=== PATIENT | female | born 1950 | race Caucasian/White ===

== ENCOUNTER 2016-11-01 13:26 | Outpatient (RCR) | payer MEDICARE, MEDICAID ==
--- OUTSIDE RECORDS SUMMARY | 2016-10-31 13:31 | XMS REPORT | Continuity of Care Document ---
Author Author [facility] Organization [facility] Address Unknown Phone Unavailable Care Team Providers Care Retail Warehouse Supervisor Name Role Phone RUDOLPH KENT DO PCP Insurance Providers Payer Name Policy Number Subscriber Name [id number] Carson Pal 01 [employer] [id number] Regi Pal 18 Self / Same As Patient [facility] [id number] Regi Pal 18 Self / Same As Patient Advance Directives Directive Response Recorded Date/Time Advance Directives Yes 09/23/14 11:18am Health Care Power of Dock Operations Supervisor Y s.o 09/23/14 11:18am Organ Donor No 09/23/14 11:18am Problems No known problems or medical conditions. Medications Medication Dose Route Sig Days/Qty Instructions Order Date Discontinued Date Status Torsemide 11/30/08 04/07/10 Discontinued [Avinza Er] 11/30/08 04/07/10 Discontinued Sitagliptin Phosphate 11/30/08 04/07/10 Discontinued Oxycodone HCl 11/30/08 02/04/09 Discontinued Pregabalin 11/30/08 04/07/10 Discontinued Trazodone HCl 11/30/08 02/04/09 Discontinued Cyclobenzaprine HCl 10 Mg PO THREE TIMES A DAY PRN PAIN 11/30/08 Active Alprazolam 1 Mg PO EVERY 6 HOURS PRN NEEDED FOR ANIXETY 11/30/08 Discontinued Potassium Chloride 11/30/08 02/04/09 Discontinued Nitrofurantoin Macrocrystals 11/30/08 02/04/09 Discontinued Darifenacin 11/30/08 02/04/09 Discontinued Insulin Aspart 11/30/08 04/07/10 Discontinued [Klor-Con Sr] 02/04/09 04/07/10 Discontinued Trazodone HCl 02/04/09 04/07/10 Discontinued Albuterol/Ipratropium 02/04/09 04/07/10 Discontinued [Estrogen Injection] 02/04/09 08/16/12 Discontinued Furosemide 02/04/09 04/07/10 Discontinued Cyclobenzaprine HCl (Flexeril) 2 Each PO BEDTIME 04/07/10 04/19/12 Discontinued Trazodone Hcl 300 Mg PO BEDTIME 04/07/10 04/19/12 Discontinued Budesonide/Formoterol Fumarate 10.2 Gm IH FOUR TIMES DAILY PRN 04/19/12 Discontinued Atorvastatin Calcium 1 Each PO DAILY 04/07/10 04/19/12 Discontinued Potassium Chloride 10 Meq PO THREE TIMES A DAY 04/07/10 06/13/11 Discontinued Darifenacin 1 Each PO DAILY PRN 04/07/10 04/19/12 Discontinued Oxycodone Hcl/Acetaminophen 1 Each PO 04/07/10 04/19/12 Discontinued Quetiapine Fumarate 50 Mg PO BEDTIME 04/07/10 08/25/13 Discontinued Dicyclomine HCl 10 Mg PO TWICE A DAY 04/07/10 Active Oxycodone Hcl 40 Mg PO THREE TIMES A DAY PRN 04/07/10 04/19/12 Discontinued Topiramate 25 Mg PO THREE TIMES A DAY 04/07/10 04/19/12 Discontinued Diclofenac Sodium/Misoprostol 200 Mcg PO THREE TIMES A DAY 04/07/10 04/19/12 Discontinued Promethazine HCl 1 Tab PO DAILY PRN 04/07/10 06/13/11 Discontinued Magnesium 400 Mg PO DAILY 04/07/10 04/19/12 Discontinued Nitrofurantoin Macrocrystals 100 Mg PO BEDTIME 04/07/10 Active Sitagliptin Phos/Metformin Hcl 1 Each PO TWICE A DAY 04/07/10 Discontinued Scopolamine HCl 1 Ea TD Q3D 3 Qty FOR DIZZINESS 07/25/10 07/27/11 Discontinued Meclizine HCl 1 - 2 Tab PO Q 4-6 HOURS PRN 30 Qty 06/05/10 06/07/11 Discontinued Ondansetron HCl 4 Mg PO EVERY 4HRS 10 Qty FOR NAUSEA AND VOMITING 06/07/11 Discontinued Scopolamine HCl 1 Ea TD Q3D 06/13/11 04/19/12 Discontinued Simvastatin 40 Mg PO 06/13/11 04/19/12 Discontinued Lactulose 3 Tsp PO TWICE A DAY 1 Qty 06/13/11 04/19/12 Discontinued Methylnaltrexone [place] 12 Mg SQ bi weekly 06/13/11 04/19/12 Discontinued Promethazine HCl 1 Tab PO DAILY PRN 1 Qty 06/13/11 04/19/12 Discontinued Ipratropium/Albuterol Sulfate 2 Puff IH FOUR TIMES DAILY 06/13/11 Discontinued Pantoprazole Sodium 40 Mg PO DAILY 06/13/11 04/19/12 Discontinued Sitagliptin Phos/Metformin Hcl 1 Each PO 04/19/12 04/19/12 Discontinued Sitagliptin Phos/Metformin Hcl 1 Each PO TWICE A DAY WITH MEALS 04/1904/19/12 Discontinued Oxycodone Hcl 40 Mg PO THREE TIMES A DAY PRN 04/19/12 Active Oxycodone Hcl/Acetaminophen 10-650 Mg PO EVERY 6 HOURS PRN NEEDED FOR PAIN 04/19/12 09/23/14 Discontinued Sitagliptin Phos/Metformin Hcl 50-1000 Mg PO TWICE A DAY 04/19/12 Discontinued [top] 04/19/12 04/19/12 Discontinued Trazodone Hcl 150 Mg PO BEDTIME 04/19/12 08/31/13 Discontinued Potassium Chloride (Micro K) 10 Meq PO THREE TIMES A DAY 04/19/12 Discontinued Topiramate 50 Mg PO DAILY 04/19/12 08/25/13 Discontinued Atomoxetine Hcl 60 Mg PO EVERY AFTERNOON 04/19/12 09/23/14 Discontinued Metronidazole 1 Each PO THREE TIMES A DAY 04/19/12 07/31/12 Discontinued Clindamycin HCl 1 Each PO GIVE EVERY 6 HR ON SCHEDULE 04/19/1207/31 Discontinued [Estradiol] 08/16/12 08/16/12 Discontinued [Estradiol] 1 Mg PO DAILY 08/16/12 02/23/13 Discontinued Meclizine Hcl 25 Mg PO THREE TIMES A DAY 02/23/13 08/31/13 Discontinued [vitamin b12] IM MONTHLY 02/23/13 08/25/13 Discontinued Torsemide 10 Mg PO DAILY PRN EDEMA NEEDED FOR EDEMA/WEIGHT GAIN Active Metoclopramide HCl 10 Mg PO FOUR TIMES DAILY 02/23/13 Active Oxycodone HCl 1 Tab PO FOUR TIMES DAILY 40 Qty 02/23/13 02/24/13 Discontinued Ipratropium/Albuterol Sulfate 3 Puff IH FOUR TIMES DAILY 02/23/13 Discontinued [Estrogen Shot] INJ MOTNHLY 02/24/13 06/04/14 Discontinued Multivitamin 1 Each PO DAILY 02/26/13 02/26/13 Discontinued Topiramate 50 Mg PO DAILY PRN MIGRAINE 08/25/13 Active Ipratropium/Albuterol Sulfate 3 Puff IH FOUR TIMES DAILY 08/25/13 Active Polyethylene Glycol 17 Gm PO DAILY PRN CONSTIPATION 08/25/13 Discontinued Cyanocobalamin (Vitamin B 12 Injecting) 1,000 Mcg IJ 31ST OF EACH MONTH 08/25/13 03/16/15 Discontinued Ca Cmb No.1/Vit D3/B-6/Fa/B12 1,000 Unit PO DAILY 08/25/13 09/23/14 Discontinued Magnesium Citrate 100 Mg PO TWICE A DAY 08/25/13 09/23/14 Discontinued [Relistor] INJ TWICE WEEKLY 08/25/13 09/23/14 Discontinued Oseltamivir Phosphate 75 Mg PO TWICE A DAY STARTED 08-22-13 08/25/13 08/31/13 Discontinued Quetiapine Fumarate 50 Mg PO BEDTIME 08/25/13 09/23/14 Discontinued Prednisone PO DAILY 2 TABS WITH BREAKFAST X2 DAYS 08/31/13 Discontinued Quetiapine Fumarate 50 Mg PO BEDTIME 09/23/14 Active Potassium Chloride 10 Meq PO THREE TIMES A DAY 09/23/14 Active Omeprazole 20 Mg PO FOUR TIMES DAILY 09/23/14 09/24/14 Discontinued Ropinirole Hcl 1 Mg PO BEDTIME 09/23/14 Active [Oxycode Hcl 10MG] 10 Mg PO EVERY 6 HOURS PRN PAIN 09/23/14 Discontinued Meclizine Hcl 25 Mg PO THREE TIMES A DAY PRN DIZZINESS 09/23/14 Active Pregabalin 50 Mg PO THREE TIMES A DAY 09/23/14 Active Hydroxychloroquine Sulfate 200 Mg PO DAILY 09/23/14 Active Fluconazole 150 Mg PO Sunday09/23/14 Active Clonazepam 0.5 Mg PO EVERY 12 HOURS PRN ANXIETY 09/23/14 Active Metformin HCl (Glucophage) 1,000 Mg PO TWICE A DAY WITH MEALS Active Alprazolam 1 Mg PO EVERY 8HRS PRN ANXIETY 09/23/14 Active Linagliptin 5 Mg PO DAILY 09/23/14 Active Insulin Glulisine 3 Unit SQ BEFORE MEALS 09/23/14 Active Insulin Glargine 10 Units SQ BEDTIME 09/23/14 Active Oxycodone Hcl 10 Mg PO EVERY 6 HOURS PRN PAIN 09/23/14 Active [Aspirin] 162 Mg PO DAILY 60 Qty 09/24/14 03/16/15 Discontinued Clopidogrel Bisulfate 75 Mg PO DAILY 60 Qty 09/24/14 03/16/15 Discontinued Pantoprazole Sod 40 Mg PO DAILY 90 Qty 09/24/14 03/16/15 Discontinued Omeprazole 20 Mg PO DAILY 30 Qty 03/16/15 Active Social History Social History Problem Response Recorded Date/Time Alcohol Use Denies Use 02/21/2014 2:00pm Recreational Drug Use No 02/21/2014 2:00pm Recent Foreign Travel No 02/21/2014 2:00pm Recent Infectious Disease Exposure No 02/21/2014 2:00pm Hospital Discharge Instructions No hospital discharge instructions. Plan of Care No plan of care. Functional Status No functional status results. Allergies, Adverse Reactions, Alerts Allergen Type Severity Reaction Status Last Updated Iodinated Contrast Media - IV Dye Allergy Unknown Active 08/25/13 linezolid ([id number]) Allergy Unknown Active 08/25/13 Immunizations Name Given Type Date of Pneumonia Vaccine 07/14/14 Historical Date of Influenza Vaccine 07/14/14 Historical Vital Signs No known vital signs results. Results No known relevant diagnostic tests, laboratory data and/or discharge summary. Procedures No known history of procedures. Encounters Encounter Location Date/Time Discharged Recurring Via [facility] 06/09/15 9:01am Discharged Recurring Via [facility] 03/10/15 11:24am
[2016-10-31 13:43] LABS: BASOPHILS # (AUTO) 0.1 10^3/uL (0.0-0.1); BASOPHILS % (AUTO) 1 % (0-10); EOSINOPHILS # (AUTO) 0.1 10^3/uL (0.0-0.3); EOSINOPHILS % (AUTO) 2 % (0-10); LYMPHOCYTES # (AUTO) 3.5 X 10^3 (1.0-4.0); LYMPHOCYTES % (AUTO) 40 % (12-44); MEAN CORPUSCULAR HEMOGLOBIN 27 PG (25-34); MEAN CORPUSCULAR HGB CONC 32 G/DL (32-36); MEAN CORPUSCULAR VOLUME 83 FL (80-99); MEAN PLATELET VOLUME 9.9 FL (7.4-10.4); MONOCYTES # (AUTO) 0.7 X 10^3 (0.0-1.0); MONOCYTES % (AUTO) 8 % (0-12); NEUTROPHILS # (AUTO) 4.5 X 10^3 (1.8-7.8); NEUTROPHILS % (AUTO) 50 % (42-75); PLATELET COUNT 287 10^3/uL (130-400); RED BLOOD COUNT 4.39 10^6/uL (4.35-5.85); RED CELL DISTRIBUTION WIDTH 13.7 % (10.0-14.5); WHITE BLOOD COUNT 8.9 10^3/uL (4.3-11.0)
--- OUTSIDE RECORDS SUMMARY | 2016-10-31 13:55 | XMS REPORT | Continuity of Care Document ---
Author Author [facility] Organization [facility] Address Unknown Phone Unavailable Care Team Providers Care Truck Driver Helper Name Role Phone RUDOLPH KENT DO PCP Insurance Providers Payer Name Policy Number [facility]scriber [id number] Carson Pal 01 W[employer] Medicare [id number] Regi Pal 18 Self / Same As Patient [facility] [id number] Regi Pal 18 Self / Same As Patient Advance Directives Directive Response Recorded Date/Time Advance Directives Yes 09/23/14 11:18am Health Care Power of Counter Intelligence Y s.o 09/23/14 11:18am Organ Donor No [...] DAY 1 Qty 06/13/11 04/19/12 Discontinued Methylnaltrexone [place] 12 Mg SQ bi weekly 06/13/11 04/19/12 [...] IV Dye Allergy Unknown Active 08/25/13 linezolid ([id number]) Allergy Unknown Active 08/25/13 Immunizations Name Given Type Date of Pneumonia Vaccine 07/14/14 Historical Date of Influenza Vaccine 07/14/14 Historical Vital Signs No known vital signs results. Results No known relevant diagnostic tests, laboratory data and/or discharge summary. Procedures No known history of procedures. Encounters Encounter Location Date/Time Discharged Recurring Via [facility] 06/09/15 9:01am Discharged Recurring [facility] 03/10/15 11:24am
--- NOTE | 2016-10-31 14:21 | Diagnostic Imaging Report ---
PROCEDURE: CT chest without contrast. TECHNIQUE: Multiple contiguous axial images were obtained through the chest without the use of intravenous contrast. INDICATION: COPD. FINDINGS: The lungs demonstrate minimal upper lobe predominant emphysema changes. There is no significant consolidation, mass or suspicious nodule noted. There is no pericardial or pleural effusion. The thoracic aorta is normal in caliber. No significantly enlarged mediastinal lymph nodes or masses seen. No axillary lymphadenopathy. The hilar vessels are unopacified on this unenhanced exam with no obvious hilar lymphadenopathy or mass seen. Sections of the upper abdomen demonstrate cholecystectomy clips. There is mild degenerative changes in the osseous structures. IMPRESSION: Mild centrilobular emphysema changes. Dictated by: Dictated on workstation # [id number]
[~2016-11-01 13:26] MED LIST: ALPR1T PO; ALPR1TAB2 PO; ALPR1TAB7 PO; ASPI-983 PO; ATOM60CA3 PO; ATOR10TA66 PO; ATR20T PO; AVINZA; Aspirin PO; BUDE6HFA IH; CA C1TAB26 PO; CHOL10003 PO; CLIN-62 PO; CLON0.5T3 PO; CLPD75T PO; CMBV14.7IN; CYAN100053 IJ; CYCL10TA45 PO; CYCL10TA9 PO; DARI7.5T2; DARI7.5T8 PO; DICL/MIS50 PO; DICY10CA12 PO; DICY10CA26 PO; ESTRADIOL; ESTRADIOL PO; ESTROGEN; ESTROGEN SHOT INJ; EZET1TAB21; FLUC150T PO; FLUT16SP22 NSEACH; FLUT1DIS26 IH; FRSM20T; FURO20TA4 PO; HYDR200T46 PO; INSASP10V; INSU100I10 SQ; INSU100I11 SQ; INSU100I29 SQ; IPRA4AER IH; KCL10CCR; KCL10CCR PO; KLOR CON; LACT10SO33 PO; LINA5TAB PO; LISI-556 PO; MAGN100T6 PO; MAGN200T3 PO; MECL-105 PO; MECL-106 PO; MECL-124 PO; METF-380 PO; METF1000 PO; METO-354 PO; METO10TA3 PO; MONT10TA24 PO; MTR250T PO; MULT-963 PO; NF-SITA50T; NFLYR75C; NITR-33 PO; NTR50C; OMEP20CA12 PO; ONDA8TAB6 PO; ONDAN4ODT PO; OSLT75C PO; OXC40TCR; OXC40TCR PO; OXYC-281 PO; OXYC10TA63 PO; OXYC10TA7 PO; OXYC1TAB87; OXYC40TA46 PO; OXYC40TA49 PO; OXYCODONE 10 MG PO; PANT40SU PO; PNT40TEC PO; POLY17PO23 PO; POLY1GRA MC; POTA10CA43 PO; POTA10TA14 PO; POTA10TA86 PO; PRD10T PO; PREG50C PO; PREG50CA2 PO; PRM25T PO; QTP100T; QTP25T PO; QUET50TA PO; QUET50TA49 PO; QUET50TA55 PO; RANI150T11 PO; RELISTOR INJ; ROPI1TAB2 PO; RT-COMBINH IH; SCOP1PAT TD; SIMV40TA4 PO; SITA1TAB2 PO; SITA1TAB6 PO; TOPI50TA13 PO; TOPI50TA2 PO; TORS20TA3 PO; TPR25T PO; TRAZ150T42 PO; TRAZ300T3 PO; TRS20T; TRZ100T; [UNRECOGNIZED DRUG - CODE] SQ; [UNRECOGNIZED DRUG - OTHER]; vitamin b12 IM
== END 2017-01-29 | disposition home or self-care (01) ==
LOC: RAD 13:26
PROVIDERS: ATTEND Nurse Practitioner Family
DX: J44.9 Chronic obstructive pulmonary disease, unspecified (principal); F17.200 Nicotine dependence, unspecified, uncomplicated
CPT/HCPCS: 36415; 71250; 85025; 87070; 87205

== ENCOUNTER → 2017-04-30 | Outpatient (CLI) | payer MEDICARE, MEDICAID | LOC: CARD 09:22 | PROVIDERS: ATTEND Physician Assistant | DX: I10 Essential (primary) hypertension (principal); I25.10 Atherosclerotic heart disease of native coronary artery without angina pectoris; E78.2 Mixed hyperlipidemia; E11.9 Type 2 diabetes mellitus without complications ==

== ENCOUNTER → 2017-05-07 | Outpatient (CLI) | payer MEDICARE, MEDICAID ==
[~2017-05-07] MED LIST changes: +CATHETER FLUSH 10 ML SYR IV PRN; +REGADENOSON 0.4 MG/5 ML SYR (LEXISCAN) IV ONE
[2017-05-07 09:32] VITALS: BP 130/53
== END ==
LOC: CARD 08:16
PROVIDERS: ATTEND Physician Assistant
DX: I10 Essential (primary) hypertension (principal); I25.10 Atherosclerotic heart disease of native coronary artery without angina pectoris; E78.2 Mixed hyperlipidemia; E11.9 Type 2 diabetes mellitus without complications
CPT/HCPCS: 78452; 93017

== ENCOUNTER 2017-05-08 13:05 | Outpatient (RCR) | payer MEDICARE, MEDICAID ==
[2017-02-09 15:08] VITALS: BP 135/57
[2017-03-09 11:58] VITALS: BP 141/65
[2017-04-10 13:02] VITALS: BP 162/75
[~2017-05-08] VITALS: Ht 154.9 cm; Wt 84.1 kg
[~2017-05-08 13:05] MED LIST changes: -REGADENOSON 0.4 MG/5 ML SYR (LEXISCAN) IV ONE
[2017-05-08 13:20] VITALS: BP 148/74
== END 2017-05-10 | disposition home or self-care (01) ==
LOC: SDC 13:05
PROVIDERS: ATTEND Internal Medicine
DX: Z45.2 Encounter for adjustment and management of vascular access device (principal)
CPT/HCPCS: 96523

== ENCOUNTER → 2017-07-21 | Outpatient (CLI) | payer MEDICARE, MEDICAID ==
[~2017-07-21] MED LIST changes: -CATHETER FLUSH 10 ML SYR IV PRN
--- NOTE | 2017-07-21 12:02 | Diagnostic Imaging Report ---
PROCEDURE: MRI left joint lower extremity without contrast. TECHNIQUE: Multiplanar, multisequence MR imaging of the left knee was performed without contrast. COMPARISON: None available. INDICATION: Knee pain and catching sensation. FINDINGS: MENISCI Medial meniscus: Minimal degenerative free edge tearing of the posterior horn of the medial meniscus. No displaced meniscal fragments. Lateral meniscus: Mild degenerative free edge tearing of the body of the lateral meniscus. No displaced meniscal fragments. LIGAMENTS ACL: Intact. PCL: Intact. MCL: Intact. LCL: The lateral collateral ligamentous complex is intact. EXTENSOR MECHANISM The extensor mechanism is intact. CARTILAGE Medial compartment: Medial compartment articular cartilage is well preserved without focal high-grade chondromalacia. Lateral compartment: The lateral compartment articular cartilage is preserved without high-grade chondromalacia. Patellofemoral compartment: Multifocal full-thickness chondral fissuring and loss in the lateral patellar facet and central patellar apex. There is associated subchondral bone marrow edema and cystic change within the lateral aspect of the patella. Opposing femoral trochlear cartilage appears preserved. BONE No fracture, stress fracture or osteonecrosis. SOFT TISSUE: No knee effusion or Laguna's cyst. There is small amount of nonspecific subcutaneous edema in the anterior aspect of the knee. IMPRESSION: 1. Degenerative free edge tearing of the medial and lateral menisci. No displaced meniscal fragments. 3. Multifocal full-thickness chondral fissuring and chondral loss throughout the patella. Articular cartilage in the medial and lateral compartments is preserved. 3. Cruciate and collateral ligaments are normal. Dictated by: Dictated on workstation # [id number]
== END ==
LOC: RAD 10:37
PROVIDERS: ATTEND Internal Medicine
DX: S83.282A Other tear of lateral meniscus, current injury, left knee, initial encounter (principal); S83.242A Other tear of medial meniscus, current injury, left knee, initial encounter; M94.8X6 Other specified disorders of cartilage, lower leg; X58.XXXA Exposure to other specified factors, initial encounter; Y99.8 Other external cause status
CPT/HCPCS: 73721

== ENCOUNTER 2017-08-03 12:02 | Outpatient (RCR) | payer MEDICARE, MEDICAID ==
[2017-06-05 13:35] VITALS: BP 107/67
[2017-07-03 14:08] VITALS: BP 107/67
[~2017-08-03] VITALS: Ht 154.9 cm; Wt 84.1 kg
[2017-08-03 12:15] VITALS: BP 127/69
== END 2017-08-11 | disposition home or self-care (01) ==
LOC: SDC 12:02
PROVIDERS: ATTEND Internal Medicine
DX: Z45.2 Encounter for adjustment and management of vascular access device (principal)
CPT/HCPCS: 96523

== ENCOUNTER → 2017-10-18 | Outpatient (CLI) | payer MEDICARE, MEDICAID ==
--- NOTE | 2017-10-19 09:41 | Diagnostic Imaging Report ---
Bilateral screening mammogram 2D views with tomosynthesis The current study was also evaluated with a Computer Aided Detection (CAD) system. INDICATION: Screening. No current complaints stated on the questionnaire. COMPARISON: 10/15/2014. FINDINGS: The breasts are composed of scattered fibroglandular densities. Occasional benign-appearing calcifications are seen. Allowing for technique and positional differences, no suspicious change is seen. IMPRESSION: No significant change. ACR BI-RADS Category 2: Benign findings. Result letter will be mailed to the patient. Note: At least 10% of breast cancer is not imaged by mammography. Dictated by: Dictated on workstation # [id number]
== END ==
LOC: RAD 09:35
PROVIDERS: ATTEND Internal Medicine
DX: Z12.31 Encounter for screening mammogram for malignant neoplasm of breast (principal)

== ENCOUNTER 2017-11-09 12:05 | Outpatient (RCR) | payer MEDICARE, MEDICAID ==
[2017-08-29 12:35] VITALS: BP 0/0
[2017-10-12 11:35] VITALS: BP 160/72
[~2017-11-09] VITALS: Ht 154.9 cm; Wt 84.1 kg
[2017-11-09 12:35] VITALS: BP 147/85
== END 2017-11-27 | disposition home or self-care (01) ==
LOC: SDC 12:05
PROVIDERS: ATTEND Internal Medicine
DX: Z45.2 Encounter for adjustment and management of vascular access device (principal)
CPT/HCPCS: 96523

== ENCOUNTER → 2017-11-15 | Outpatient (CLI) | payer MEDICARE, MEDICAID ==
--- NOTE | 2017-11-15 12:13 | Diagnostic Imaging Report ---
EXAM: DEXA scan. INDICATION: Screening for osteoporosis. COMPARISON: There are no prior studies available for comparison. FINDINGS: The bone mineral density of the hips and spine was measured. The T score for the spine is 0.1. This value is within normal limits. The T score for the right hip is -1.0. This value is at the lowest end of normal. The T score for left hip is -1.2. This does indicate mild osteopenia. IMPRESSION: There is mild osteopenia of the left hip but the bone mineral density of the right hip and the spine is within normal limits. Dictated by: Dictated on workstation # [id number]
== END ==
LOC: RAD 09:01
PROVIDERS: ATTEND Internal Medicine
DX: M85.852 Other specified disorders of bone density and structure, left thigh (principal); M40.209 Unspecified kyphosis, site unspecified; Z78.0 Asymptomatic menopausal state
CPT/HCPCS: 77080

== ENCOUNTER → 2018-03-25 | Outpatient (CLI) | payer MEDICARE, MEDICAID ==
[~2018-03-25] MED LIST changes: -METF1000 PO; +METF10002 PO
== END ==
LOC: WOUNDCARE 09:35
PROVIDERS: ATTEND Surgery
DX: L98.9 Disorder of the skin and subcutaneous tissue, unspecified (principal)
CPT/HCPCS: 99212

== ENCOUNTER → 2018-04-02 | Outpatient (CLI) | payer MEDICARE, MEDICAID ==
--- NOTE | 2018-04-02 13:30 | Diagnostic Imaging Report ---
INDICATION: Pain after a fall. TECHNIQUE: Three views of the left foot were obtained. FINDINGS: The alignment of the foot is normal. There are degenerative changes of the first metatarsal/phalangeal joint. There is questionable erosion on the distal first metatarsal and possibly the proximal first phalanx. There is no fracture or dislocation. There is degenerative spurring of the calcaneus. IMPRESSION: Questionable erosions about the first metatarsal/phalangeal joint. This is nonspecific; however, the possibility of gout cannot be excluded. Recommend clinical correlation. Degenerative spurring on the calcaneus. No other acute fracture or dislocation. Dictated by: Dictated on workstation # [id number]
--- NOTE | 2018-04-02 13:30 | Diagnostic Imaging Report ---
INDICATION: Pain after a fall. TECHNIQUE: Two views of the left hip were obtained. FINDINGS: The alignment is normal. There is no fracture or dislocation. The soft tissues are unremarkable. IMPRESSION: No acute fracture or dislocation. Dictated by: Dictated on workstation # [id number]
== END ==
LOC: RAD 12:02
PROVIDERS: ATTEND Internal Medicine
DX: M77.32 Calcaneal spur, left foot (principal); S79.912A Unspecified injury of left hip, initial encounter; W19.XXXA Unspecified fall, initial encounter
CPT/HCPCS: 73502; 73630

== ENCOUNTER 2018-05-16 13:00 | Outpatient (RCR) | payer MEDICARE, MEDICAID ==
[2018-02-21 11:38] VITALS: BP 135/65
[2018-03-21 13:20] VITALS: BP 111/73
[2018-04-18 13:00] VITALS: BP 139/75
[~2018-05-16] VITALS: Ht 154.9 cm; Wt 84.1 kg
[~2018-05-16 13:00] MED LIST changes: +CLON0.5T13 PO
[2018-05-16 15:09] VITALS: BP 127/108
== END 2018-05-22 | disposition home or self-care (01) ==
LOC: SDC 13:00
PROVIDERS: ATTEND Internal Medicine
DX: Z45.2 Encounter for adjustment and management of vascular access device (principal)
CPT/HCPCS: 96523

== ENCOUNTER 2018-07-09 13:08 | Outpatient (RCR) | payer MEDICARE, MEDICAID ==
[~2018-07-09] VITALS: Ht 154.9 cm; Wt 84.1 kg
[~2018-07-09 13:08] MED LIST changes: +METF-399 PO; -METF10002 PO
[2018-07-09 13:25] VITALS: BP 103/79
== END 2018-07-12 | disposition home or self-care (01) ==
LOC: SDC 13:08
PROVIDERS: ATTEND Internal Medicine
DX: Z45.2 Encounter for adjustment and management of vascular access device (principal)
CPT/HCPCS: 96523

== ENCOUNTER → 2018-08-16 | Outpatient (CLI) | payer MEDICARE, MEDICAID ==
--- NOTE | 2018-08-16 14:01 | Diagnostic Imaging Report ---
CLINICAL INDICATION: Patient has been falling more and hitting head. EXAM: Axial CT scan of the brain performed without IV contrast. COMPARISON: Head CT without IV contrast dated 06/05/2010. FINDINGS: There is no evidence of acute cerebral infarct, intracranial hemorrhage, or gross mass effect. The brain parenchymal volume appears appropriate for patient's age. There are subtle patchy areas of low-attenuation white matter changes involving both cerebral hemispheres, likely representing mild chronic small vessel ischemic disease. There is normal stephens-white matter distinction. There is no significant midline shift or herniation. There is no evidence of hydrocephalus. The basal cisterns are unremarkable. The skull, extracranial soft tissue, and orbits are unremarkable. The paranasal sinuses are unremarkable. Temporal bones show no significant abnormality. IMPRESSION: Unremarkable CT scan of the brain for age. Dictated by: Dictated on workstation # [id number]
== END ==
LOC: RAD 13:12
PROVIDERS: ATTEND Internal Medicine
DX: G43.909 Migraine, unspecified, not intractable, without status migrainosus (principal); W19.XXXA Unspecified fall, initial encounter; F09 Unspecified mental disorder due to known physiological condition
CPT/HCPCS: 70450

== ENCOUNTER → 2018-09-04 13:20 | Outpatient (RCR) | payer MEDICARE, MEDICAID ==
[~2018-09-04] VITALS: Ht 154.9 cm; Wt 84.1 kg
[~2018-09-04 13:20] MED LIST changes: +CATHETER FLUSH 10 ML SYR IV PRN
[2018-09-04 13:40] VITALS: BP 134/57
== END | disposition home or self-care (01) ==
LOC: SDC 13:20
PROVIDERS: ATTEND Internal Medicine
DX: Z45.2 Encounter for adjustment and management of vascular access device (principal)
CPT/HCPCS: 96523

== ENCOUNTER → 2018-09-09 | Outpatient (CLI) | payer MEDICARE, MEDICAID ==
[~2018-09-09] MED LIST changes: -CATHETER FLUSH 10 ML SYR IV PRN; +DICY20TA10 PO; +POLY17PO31 PO; +PREG150C PO; +PREG75CA PO
--- NOTE | 2018-09-09 11:59 | Diagnostic Imaging Report ---
PROCEDURE: MRI lumbar spine. TECHNIQUE: Multiplanar, multisequence MRI of the lumbar spine was performed without contrast. INDICATION: Low back pain and left hip pain. COMPARISON: No prior studies are available for comparison. FINDINGS: Curvature of the lumbar spine is normal. Minimal retrolisthesis of L2 on L3 is noted. Vertebral body heights are maintained. No acute compression fracture seen. No geographic marrow lesions is identified. There is generalized degenerative disc disease and desiccation, most severe at L2-3 level where there is complete loss of the disc space, desiccation and endplate osteophyte formation. Reactive changes in the adjacent endplates are also seen. Conus is unremarkable at the L1 level. T12-L1: The central canal and neural foramina are widely patent. L1-2: Ligamentous thickening is present. There appears to be a prominent facet osteophyte posterior lateral to the thecal sac at this level and indenting the thecal sac. This produces left lateral recess stenosis and some trefoil configuration of the central canal. There is also mild left neural foramina narrowing. Right neural foramen is patent. L2-3: Ligamentous thickening and broad-based disc/osteophyte complex does result in moderate central canal stenosis. There is mild bilateral neural foraminal narrowing. L3-4: There is ligamentous thickening with mild trefoil configuration of the thecal sac. AP dimensions of the thecal sac are within normal limits. No significant neural foraminal narrowing is seen. L4-5: There is ligamentous thickening with mild trefoil configuration of the sac. There are degenerative facet changes. Mild neural foraminal and lateral recess narrowing is seen. L5-S1: Central canal is widely patent. There are degenerative changes to the facets. Endplate osteophytes do result in mild to moderate bilateral neural foraminal narrowing. Paraspinous tissues are unremarkable. IMPRESSION: Lumbar spondylosis and facet arthropathy with multilevel central canal, lateral recess and neural foraminal narrowing described level by level above. Dictated by: Dictated on workstation # [id number]
== END ==
LOC: RAD 10:37
PROVIDERS: ATTEND Internal Medicine
DX: M47.27 Other spondylosis with radiculopathy, lumbosacral region (principal); M25.78 Osteophyte, vertebrae; M99.73 Connective tissue and disc stenosis of intervertebral foramina of lumbar region; M46.86 Other specified inflammatory spondylopathies, lumbar region; M48.061 Spinal stenosis, lumbar region without neurogenic claudication; M43.16 Spondylolisthesis, lumbar region; M51.16 Intervertebral disc disorders with radiculopathy, lumbar region
CPT/HCPCS: 72148

== ENCOUNTER 2018-09-16 05:33 | Outpatient (CLI) | payer MEDICARE, MEDICAID ==
[~2018-09-16] VITALS: Ht 154.9 cm; Wt 73.7 kg
[~2018-09-16 05:33] MED LIST changes: -DICY20TA10 PO; -PREG150C PO; -PREG75CA PO
[2018-09-16] MEDS ORDERED: DICY20TA10 PO (12:26)
[2018-09-16] MEDS ORDERED: FURO20TA4 PO (12:27)
[2018-09-16] MEDS ORDERED: PREG75CA PO (12:27)
[2018-09-16] MEDS ORDERED: PREG150C PO (12:27)
[2018-09-16] MEDS ORDERED: INSU100I10 SQ (14:56)
== END 2018-09-16 12:07 | disposition home or self-care (01) ==
LOC: PREOP 05:33
PROVIDERS: ATTEND Surgery
DX: Z01.818 Encounter for other preprocedural examination (principal)

== ENCOUNTER 2018-09-19 07:44 | Day surgery (SDC) | payer MEDICARE, MEDICAID ==
[~2018-09-19] VITALS: Ht 154.9 cm; Wt 73.7 kg
[2018-09-19] VITALS (11 sets, daily range): BP systolic 130–147; BP diastolic 61–83
[~2018-09-19 07:44] MED LIST changes: +DICY20TA10 PO; +PREG150C PO; +PREG75CA PO
[2018-09-19] MEDS ORDERED: ceFAZolin INJECTION 1,000 MG in NS (IVPB) 50 ML IV ONE (08:00)
[2018-09-19] MEDS: LACTATED RINGERS 1,000 ML IV PRN ×2 (08:06→14:03)
--- NOTE | 2018-09-19 08:23 | Progress Note-Pre Operative ---
Pre-Operative Progress Note H&P Reviewed The H&P was reviewed, patient examined and no changes noted. Date Seen by Provider: Sep 19, 2018 Time Seen by Provider: 08:10 Date H&P Reviewed: Sep 19, 2018 Time H&P Reviewed: 08:15 Pre-Operative Diagnosis: Malfunctioning port, poor peripheral venous access DANIA GILBERT APRN Sep 19, 2018 8:23 am
[2018-09-19] MEDS ORDERED: ONDANSETRON 4 MG/2 ML (SDV) Z0FRAN IVP PRN ×2 (08:30→11:30)
[2018-09-19] MEDS ORDERED: oxyCODONE/APAP 5/325MG (PERCOCET 5) TABLET PO PRN (08:30)
[2018-09-19] MEDS ORDERED: ACETAMINOPHEN 325 MG TABLET PO PRN (08:30)
[2018-09-19] MEDS ORDERED: morphine INJ 10 MG/ML 1ML (SYR OR VIAL) IVP PRN (08:30)
[2018-09-19] MEDS ORDERED: HEParin (CENTRAL IV FLUSH) 500 UNIT/5 ML SYR ONE (08:49)
[2018-09-19] MEDS ORDERED: LIDOCAINE/EPI 1%-1:200,000 (XYLOCAINE) 10 ML VIAL ONE ×2 (08:49→10:26)
[2018-09-19] MEDS ORDERED: KETAMINE HCL 100 MG/ML 5 ML VIAL ONE (09:22)
[2018-09-19] MEDS ORDERED: MIDAZOLAM 2 MG/2 ML (VERSED) VIAL ONE ×2 (09:22→09:59)
[2018-09-19] MEDS ORDERED: LIDOCAINE PF 2% 5 ML (XYLOCAINE) VIAL ONE (09:22)
[2018-09-19] MEDS ORDERED: proPOfol 200 MG/20 ML (DIPRIVAN) VIAL IV ONE ×2 (09:22→11:30)
[2018-09-19] MEDS ORDERED: morphine INJ 10 MG/ML 1ML (SYR OR VIAL) IVP ONE (11:30)
[2018-09-19] MEDS ORDERED: HEParin (CATH LAB) 1,000 ML IV ONE (13:44)
[2018-09-19] MEDS ORDERED: LIDOCAINE 1% INJ 20 ML 20 ML VIAL ONE ×2 (13:44→16:19)
--- NOTE | 2018-09-19 13:48 | OPERATIVE REPORT ---
DATE OF SERVICE: 09/19/2018 ATTENDING PRIMARY CARE PHYSICIAN: Dr. Knight. PREOPERATIVE DIAGNOSES: Poor peripheral venous circulation, vasculopathy, malfunctioning left subclavian Groshong implantable catheter. POSTOPERATIVE DIAGNOSIS: Poor peripheral venous circulation, vasculopathy, malfunctioning left subclavian Groshong implantable catheter with retained 12 cm of Groshong catheter, which appeared to be all intravascular. PROCEDURE: Left chest exploration and dissection of the left subclavian vein. SURGEON: Melisa Doherty MD. ANESTHESIA: Monitored anesthesia care with local. ESTIMATED BLOOD LOSS: Minimal. FINDINGS: Scarred in catheter, which broke cleanly and exploration was performed of the anterior chest tube and the left subclavian vein was dissected out; however, the remaining catheter appeared to be intervascular under fluoroscopy as well as externally. DISPOSITION: The patient tolerated the procedure well. Cardiology has been consulted and they will proceed with retrieval of the remainder of the catheter. INDICATIONS: The patient is a 68-year-old female known to us. She has had multiple chronic abdominal issues including multiple adhesions and abdominal surgeries secondary to this. She states her initial surgery was a hysterectomy in 1981 and then she developed a hernia requiring hernia surgery and was found to have extensive adhesions requiring lysis of adhesions. She has undergone many other abdominal surgeries including lysis of adhesions and has gone a total of approximately 30 different procedures in her lifetime. We had placed a Groshong implantable catheter around 2007 and this stopped working. She also has poor peripheral venous circulation and is a vasculopath. DESCRIPTION OF PROCEDURE: The patient was brought to the operating room, laid supine on the operating room table. After adequate IV pain and sedating medications and monitored anesthesia care, the chest and neck were prepped and draped in a standard surgical fashion. A 1% lidocaine with epinephrine was then used to anesthetize the overlying skin in the left chest. The previous skin incision was made using a 15 blade. The port was then dissected out and we proceeded with a pulling of the catheter; however, there was a significant scar tissue and tension. We then proceeded with dissection of the entire catheter all the way to the sternal manubrial junction. We proceeded with gentle tension; however, the catheter did break. We proceeded with continued identification. We then proceeded with exploration. We widened our incision medially and proceeded with the opening of the pectoralis major muscle attachment sites to the clavicle. We then proceeded with the dissection of the suprapleural space using Metzenbaum scissors. The subclavian vein was identified and dissected out along the anterior wall of the venotomy site where the catheter was located, was identified and the catheter could not be accessed at this time. Cardiology was consulted intraoperatively. The recommendation was to proceed with admission, n.p.o. status and they will proceed with a catheterization and retrieval of the remainder of the 12 cm of catheter under venography. The patient tolerated the procedure well. We will admit her, keep her n.p.o. and make her comfortable with anxiolytics as well as antipain medications until the next procedure. Job ID: [id number] DocumentID: [id number] Dictated Date: 09/19/2018 11:13:18 Surveyor [employer]ing Date: 09/19/2018 13:48:33 Dictated By: MELISA DOHERTY MD
[2018-09-19] MEDS ORDERED: morphine INJ 4 MG/ML 1 ML (VIAL/SYRINGE) ONE (14:01)
--- NOTE | 2018-09-19 14:40 | Diagnostic Imaging Report ---
Fluoroscopy. Indication: Groshong catheter removal. Fluoroscopic assistance was provided for Dr. Morales during his Groshong catheter removal procedure. 1 minute and 57 seconds of fluoroscopy time was visualized. A single spot film of the thorax shows that there is a radiopaque instrument overlying the left upper lung and that there is a line in place. Impression: Fluoroscopic assistance was provided for Dr. Morales. Dictated by: Dictated on workstation # [id number]
[2018-09-19 15:05] LABS: HEMOGLOBIN 12.3 G/DL (11.5-16.0); MEAN PLATELET VOLUME 10.4 FL (7.4-10.4); RED BLOOD COUNT 4.35 10^6/uL (4.35-5.85); RED CELL DISTRIBUTION WIDTH 13.7 % (10.0-14.5); WHITE BLOOD COUNT 11.4 10^3/uL (4.3-11.0)
--- NOTE | 2018-09-19 15:10 | Diagnostic Imaging Report ---
INDICATION: Malfunctioning port. FINDINGS: Heart size is normal. Lungs are clear. There is no pleural effusion, pneumothorax, or pneumonia. IMPRESSION: No acute cardiopulmonary abnormality. Dictated by: Dictated on workstation # [id number]
[2018-09-19 15:18] LABS: PROTHROMBIN TIME PATIENT 12.7 SEC (12.2-14.7)
[2018-09-19 15:26] LABS: ALANINE AMINOTRANSFERASE 9 U/L (0-55); ALBUMIN 3.6 GM/DL (3.2-4.5); ALKALINE PHOSPHATASE 95 U/L (40-136); BILIRUBIN,TOTAL 0.3 MG/DL (0.1-1.0); BUN/CREATININE RATIO 15; CALCIUM 9.1 MG/DL (8.5-10.1); CARBON DIOXIDE 26 MMOL/L (21-32); CHLORIDE 103 MMOL/L (98-107); CREATININE SERUM 0.92 MG/DL (0.60-1.30); GFR ESTIMATED > 60; GLUCOSE 81 MG/DL (70-105); POTASSIUM 4.5 MMOL/L (3.6-5.0); SODIUM 140 MMOL/L (135-145); TOTAL PROTEIN 6.3 GM/DL (6.4-8.2)
[2018-09-19] MEDS ORDERED: MIDAZOLAM 5 MG/5 ML (VERSED) VIAL ONE (15:40)
[2018-09-19] MEDS ORDERED: fentaNYL INJECTION 100 MCG/2 ML AMP ONE (15:40)
--- NOTE | 2018-09-19 15:44 | Consultation-Cardiology ---
HPI-Cardiology Cardiology Consultation Date of Consultation 09/19/18 Date of Admission Time Seen by Provider: 15:38 Indication: Retrieval of foreign body HPI 68 years old lady well known to my practice, has extensive cardiac history, had a port on her left subclavian vein, was scheduled for retrieval today, upper retrieval portion of the port was probed and was noted to be in the superior vena cava extending to the right atrium. I was called to attempt to retrieve the device. She denied any chest pain or shortness of breath. No palpitation. Home Medications & Allergies Allergies: Coded Allergies: Iodinated Contrast Media - IV Dye (Verified Allergy, Unknown, 08/25/13) linezolid (Verified Allergy, Unknown, 08/25/13) Home Medication List Reviewed: Yes [id number] Hx Patient Social History Marital Status: Alcohol Use: Denies Use Recreational Drug Use: No Smoking Status: Current Everyday Smoker Type Used: Cigarettes Recent Foreign Travel: No Recent Infectious Disease Expo: No Recent Hopitalizations: No Immunizations Up To Date Date of Pneumonia Vaccine: Jul 14, 2014 Date of Influenza Vaccine: Aug 12, 2018 Past Medical History As described below Family Medical History Family History: Colon cancer G8 BROTHER (PANCREATIC) Dementia 19 MOTHER G8 BROTHER Hypertension 19 MOTHER Myocardial infarction G8 BROTHER Review of Systems Constitutional: see HPI EENTM: see HPI Respiratory: see HPI, dyspnea on exertion Cardiovascular: see HPI, edema Gastrointestinal: see HPI Genitourinary: see HPI Musculoskeletal: see HPI Skin: see HPI Psychiatric/Neurological: No Symptoms Reported, See HPI Reviewed Test Results Reviewed Test Results Lab Laboratory Tests Test 09/19/18 08:13 09/19/18 11:29 09/19/18 14:48 Range/Units Glucometer 90 104 70-110 MG/DL White Blood Count 11.4 H 4.3-11.0 10^3/uL Red Blood Count 4.35 4.35-5.85 10^6/uL Hemoglobin 12.3 11.5-16.0 G/DL Hematocrit 38 35-52 % Mean Corpuscular Volume 88 80-99 FL Mean Corpuscular Hemoglobin 28 25-34 PG Mean Corpuscular Hemoglobin Concent 32 32-36 G/DL Red Cell Distribution Width 13.7 10.0-14.5 % Platelet Count 251 130-400 10^3/uL Mean Platelet Volume 10.4 7.4-10.4 FL Prothrombin Time 12.7 12.2-14.7 SEC INR Comment 1.0 0.8-1.4 Activated Partial Thromboplast Time 34 24-35 SEC Sodium Level 140 135-145 MMOL/L Potassium Level 4.5 3.6-5.0 MMOL/L Chloride Level 103 98-107 MMOL/L Carbon Dioxide Level 26 21-32 MMOL/L Anion Gap 11 5-14 MMOL/L Blood Urea Nitrogen 14 7-18 MG/DL Creatinine 0.92 0.60-1.30 MG/DL Estimat Glomerular Filtration Rate > 60 BUN/Creatinine Ratio 15 Glucose Level 81 70-105 MG/DL Calcium Level 9.1 8.5-10.1 MG/DL Corrected Calcium 9.4 8.5-10.1 MG/DL Total Bilirubin 0.3 0.1-1.0 MG/DL Aspartate Amino Transf (AST/SGOT) 16 5-34 U/L Alanine Aminotransferase (ALT/SGPT) 9 0-55 U/L Alkaline Phosphatase 95 40-136 U/L Total Protein 6.3 L 6.4-8.2 GM/DL Albumin 3.6 3.2-4.5 GM/DL Physical Exam Vital Signs Vital Signs - First Documented 09/19/18 09/19/18 08:10 12:00 Temp 97.0 Pulse 88 Resp 20 B/P (MAP) 132/78 (96) Pulse Ox 96 O2 Delivery Room Air O2 Flow Rate 3.00 Capillary Refill : Less Than 3 Seconds Height, Weight, BMI Height: 5'1.00" Weight: 162lbs. 8.0oz. 73.609333zs; 30.7 BMI Method:Stated General Appearance: No Apparent Distress, WD/WN Eyes: Bilateral Eye Normal Inspection, Bilateral Eye PERRL, Bilateral Eye EOMI HEENT: PERRL/EOMI, TMs Normal, Normal ENT Inspection, Pharynx Normal Neck: Full Range of Motion, Normal Inspection, Non Tender, Supple, Carotid Bruit Respiratory: Chest Non Tender, Lungs Clear, Normal Breath Sounds, No Accessory Muscle Use, No Respiratory Distress Cardiovascular: Regular Rate, Rhythm, No Edema, No Gallop, No JVD, No Murmur, Normal Peripheral Pulses Gastrointestinal: Normal Bowel Sounds, No Organomegaly, No Pulsatile Mass, Non Tender, Soft Back: Normal Inspection, No CVA Tenderness, No Vertebral Tenderness Extremity: Normal Capillary Refill, Normal Inspection, Normal Range of Motion, Non Tender, No Calf Tenderness, No Pedal Edema Neurologic/Psychiatric: Alert, Oriented x3, No Motor/Sensory Deficits, Normal Mood/Affect Skin: Normal Color, Warm/Dry Lymphatic: No Adenopathy A/P-Cardiology Admission Diagnosis Fracture of superior vena cava port Coronary artery disease Shortness of breath Hypertension Hyperlipidemia Assessment/Plan Fracture of superior vena cava port, questionable dissection in the subclavian vein, planning to attempt to retrieve the device and do a venogram to the left arm Coronary artery disease, status post cardiac catheterization done on September, patient was noted to have severe proximal right coronary artery stenosis underwent bare metal stent appointment using 3.515 mm integrity stent expanded to 3.75 mm, most recent stress test April 2017 was negative for ischemia or infarct. Continue current medication. Dyspnea, chronic, followed by Dr. Dutta Bilateral lower extremity pain, YOSELIN was done in May 2017 and it was normal bilaterally, continue to monitor Hypertension, restart home medication monitor Hyperlipidemia, monitor lipids Diabetes mellitus. Followed and managed by primary care physician. Dizziness, chronic, uses meclizine. History of chronic pain. Multiple surgeries in the past. Managed and followed by primary care physician. Tobaccoism, patient smokes a pack a day for over 40 years, she was educated and instructed on smoking cessation. Strong family history of heart disease. Extensive medical history including GI disorder, disorder, menstrual dysfunction, arthritis, anxiety, fatigue, dizziness, orthopnea. Mild bilateral carotid stenosis, last ultrasound was done in May 2017, continue to monitor Clinical Quality Measures DVT/VTE Risk/Contraindication: Risk Factor Score Per Nursin RFS Level Per Nursing on Admit: 4+=Very High JUAN LICONA MD Sep 19, 2018 15:44
--- NOTE | 2018-09-19 15:44 | Cardiac Procedure Note-CS/ASA ---
Pre-Procedure Note Pre-Op Procedure Note H&P Reviewed The H&P was reviewed, patient examined and no changes noted. Date H&P Reviewed: Sep 19, 2018 Time H&P Reviewed: 15:44 Conscious Sedation Pre-Proced Time 15:44 ASA Score 3 For ASA 3 and 4: Consider anesthesia and medical clearance. Also, for patients with a history of failed moderate sedation consider anesthesia. Airway Lungs Heart ASA score ASA 1: a normal healthy patient ASA 2: a patient with a mild systemic disease (mid diabetes, controlled hypertension, obesity x ASA 3: a patient with a severe systemic disease that limits activity (angina , COPD, prior Myocardial infarction) ASA 4: a patient with an incapacitating disease that is a constant threat to life (CHF, renal failure) ASA 5: a moribund patient not expected to survive 24 hrs. (ruptured aneurysm) ASA 6: a declared brain patient whose organs are being harvested. For emergent operations, add the letter E after the classification Mallampati Classification Grade 3 Sedation Plan Analgesia, Amnesia, Plan communicated to team members, Discussed options with patient/fam, Discussed risks with patient/fam The patient is an appropriate candidate to undergo the planned procedure, sedation, and anesthesia. The patient immediately re-assessed prior to indication. JUAN LICONA MD Sep 19, 2018 15:44
[2018-09-19] MEDS ORDERED: NS IV 1000 ML 1,000 ML IV SCH (16:37)
--- NOTE | 2018-09-19 16:37 | Cardiac Procedure Note ---
Cardiology Procedures Date of Procedure 09/19/18 Attempt to retrieve the port catheter: Patient had a surgical approach to retrieve the port earlier today, the base of the port and 5 centimeter of the catheter were removed and the rest was in the vein. I was called to attempt to retrieve it. Patient was placed on the cardiac catheterization laboratory, right groin was prepped in sterile fashion, local anesthesia applied, 8 Macedonian sheath was placed in the right femoral vein, EN SNAIR device was used under fluoroscopy and advanced through the right femoral vein up to the inferior vena cava and right atrium up to the superior vena cava, I was able to place the loops around the tip of the catheter and advanced it inside the catheter, then closed the loops on the catheter and try to pull, with multiple attempts I was unable to move that catheter from place it appear to be attached to the wall probably at the level of the subclavian vein. After multiple attempts I decided to abort and refer her for surgical evaluation, Dr. Morales was notified Conclusion Failed attempt to retrieve a foreign body, EN SNAIR device was used and was able to capture the tip of the catheter without the ability to move it It appear that the top part of the catheter is immobilized and probably sclerosed and the vein. Discussed with Dr. Morales and recommendation to consider vascular surgery referral JUAN LICONA MD Sep 19, 2018 16:37
[2018-09-19] MEDS ORDERED: PATIENT MAY USE OWN MEDS, ALL PO SCH (16:45)
[2018-09-19] MEDS ORDERED: RT-ALBUTEROL SULF 2.5 MG/3 ML PRE-MIX VIAL INH PRN (20:15)
[2018-09-19] MEDS ORDERED: RT-ALBUTEROL SULF 2.5 MG/3 ML PRE-MIX VIAL INH SCH (21:00)
== END 2018-09-19 22:40 | disposition home or self-care (01) ==
LOC: SDC 07:44 → 4TH 12:03 → SDC 22:40
PROVIDERS: ATTEND Surgery
DX: T82.898A Other specified complication of vascular prosthetic devices, implants and grafts, initial encounter (principal); I87.2 Venous insufficiency (chronic) (peripheral); M31.9 Necrotizing vasculopathy, unspecified; Z11.2 Encounter for screening for other bacterial diseases; I25.10 Atherosclerotic heart disease of native coronary artery without angina pectoris; R06.02 Shortness of breath; I11.0 Hypertensive heart disease with heart failure; I50.9 Heart failure, unspecified; E11.40 Type 2 diabetes mellitus with diabetic neuropathy, unspecified; E78.5 Hyperlipidemia, unspecified; Z95.5 Presence of coronary angioplasty implant and graft; R06.00 Dyspnea, unspecified; M79.661 Pain in right lower leg; M79.662 Pain in left lower leg; R42 Dizziness and giddiness; G89.29 Other chronic pain; Z82.49 Family history of ischemic heart disease and other diseases of the circulatory system; F41.9 Anxiety disorder, unspecified; I65.23 Occlusion and stenosis of bilateral carotid arteries; J44.9 Chronic obstructive pulmonary disease, unspecified; G40.909 Epilepsy, unspecified, not intractable, without status epilepticus; K21.9 Gastro-esophageal reflux disease without esophagitis; Z79.899 Other long term (current) drug therapy; Z79.84 Long term (current) use of oral hypoglycemic drugs; Z79.4 Long term (current) use of insulin; E78.00 Pure hypercholesterolemia, unspecified; M79.7 Fibromyalgia; Z79.82 Long term (current) use of aspirin
CPT/HCPCS: 36415; 37197; 71045; 80053; 82962; 85027; 85610; 85730; 87081; 94640

== ENCOUNTER 2018-10-07 05:48 | Outpatient (CLI) | payer MEDICARE, MEDICAID ==
[~2018-10-07] VITALS: Ht 154.9 cm; Wt 73.5 kg
[2018-10-08] MEDS ORDERED: HYDR2TAB30 PO (13:50)
== END 2018-10-07 12:44 | disposition home or self-care (01) ==
LOC: PREOP 05:48
PROVIDERS: ATTEND Surgery
DX: Z01.818 Encounter for other preprocedural examination (principal)

== ENCOUNTER 2018-10-08 11:25 | Day surgery (SDC) | payer MEDICARE, MEDICAID ==
[~2018-10-08] VITALS: Ht 154.9 cm; Wt 73.5 kg
[2018-10-08 11:45] VITALS: BP 112/64
[2018-10-08] MEDS ORDERED: ceFAZolin INJECTION 1,000 MG in NS (IVPB) 50 ML IV ONE (11:45)
[2018-10-08] MEDS ORDERED: LACTATED RINGERS 1,000 ML IV PRN (11:45)
[2018-10-08] MEDS ORDERED: CATHETER FLUSH 10 ML SYR IV PRN (12:00)
[2018-10-08] MEDS ORDERED: HEParin (CENTRAL IV FLUSH) 500 UNIT/5 ML SYR ONE (12:03)
[2018-10-08] MEDS ORDERED: 0.9% SODIUM CHLORIDE PF INJ 20 ML VIAL ONE (12:03)
[2018-10-08] MEDS ORDERED: LIDOCAINE/EPI 1%-1:200,000 (XYLOCAINE) 10 ML VIAL ONE (12:03)
[2018-10-08] MEDS ORDERED: PROPOFOL INJECTION 50 ML IV ONE (12:10)
[2018-10-08] MEDS ORDERED: MIDAZOLAM 2 MG/2 ML (VERSED) VIAL ONE ×2 (12:23→12:51)
[2018-10-08] MEDS ORDERED: KETAMINE HCL 100 MG/ML 5 ML VIAL ONE (12:51)
[2018-10-08] MEDS ORDERED: PHENYLEPHRINE 100 MCG/ML 10 ML (ANESTHESIA) SYR ONE (13:23)
--- NOTE | 2018-10-08 13:41 | Progress Note-Pre Operative ---
Pre-Operative Progress Note H&P Reviewed The H&P was reviewed, patient examined and no changes noted. Date Seen by Provider: Oct 08, 2018 Time Seen by Provider: 12:00 Date H&P Reviewed: Oct 08, 2018 Time H&P Reviewed: 12:00 Pre-Operative Diagnosis: severe PVD MELISA DOHERTY MD Oct 08, 2018 1:41 pm
[2018-10-08] MEDS ORDERED: morphine INJ 10 MG/ML 1ML (SYR OR VIAL) IVP ONE (13:45)
[2018-10-08] MEDS ORDERED: ONDANSETRON 4 MG/2 ML (SDV) Z0FRAN IVP PRN ×2 (13:45→14:00)
--- NOTE | 2018-10-08 13:48 | Progress Note-Post Operative ---
Post-Operative Progess Note Surgeon (s)/Parts Cataloguer (s) Surgeon MELISA DOHERTY MD Parts Cataloguer: none Pre-Operative Diagnosis severe PVD Post-Operative Diagnosis same Procedure & Operative Findings Date of Procedure 10/08/18 Procedure Performed/Findings placement right subclavian groshong implantable catheter under flouroscopy. Anesthesia Type MAC with local Estimated Blood Loss Estimated blood loss (mL): minimal Specimens/Packing Specimens Removed none MELISA DOHERTY MD Oct 08, 2018 1:48 pm
--- NOTE | 2018-10-08 13:48 | Diagnostic Imaging Report ---
INDICATION: Undergoing central line placement. TECHNIQUE: Single intraprocedural image superior chest, 1:18 PM. CORRELATION STUDY: None FINDINGS: Fluoroscopy utilized by Dr. Morales during placement of a central line. A central line could not be well-visualized on this study. Fluoroscopy time: 51 seconds. IMPRESSION: 1. Fluoroscopy utilized for central line placement. The line cannot be well-defined on this study. Consideration for post procedure chest radiograph recommended. Additionally, correlation with intraoperative findings recommended. Dictated by: Dictated on workstation # [id number]
[2018-10-08] MEDS ORDERED: HYDR2TAB30 PO (13:50)
--- NOTE | 2018-10-08 13:51 | Discharge Inst-Surgical ---
D/C Lap Instructions-KIDO New, Converted, or Re-Newed RX: RX on Chart Follow Up PRN Activity as tolerated May access and use port at any time. Regular Diet Symptoms to Report: Fever over 101 degree F, Nausea/Vomiting Infection Signs and Symptoms to report: Increased redness, Foul odor of wound, Increased drainage Bathing instructions: May shower Operative Area Clean/Dry; Keep incision clean/dry If any problems/questions: Contact your physician or go to Emergency Room MELISA DOHERTY MD Oct 08, 2018 1:51 pm
[2018-10-08] MEDS ORDERED: morphine INJ 10 MG/ML 1ML (SYR OR VIAL) IVP PRN (14:00)
[2018-10-08] MEDS ORDERED: oxyCODONE/APAP 5/325MG (PERCOCET 5) TABLET PO PRN (14:00)
[2018-10-08] MEDS ORDERED: ACETAMINOPHEN 325 MG TABLET PO PRN (14:00)
[2018-10-08 14:10] VITALS: BP 119/52
--- NOTE | 2018-10-08 14:30 | Diagnostic Imaging Report ---
INDICATION: Groshong placement. Time of exam 2:11 p.m. COMPARISON: Correlation is made with prior study from 09/19/2018. FINDINGS: Right-sided Groshong catheter appears to have the tip overlying the right atrium. A linear density on the left side in the distribution of the medial left subclavian vein and left innominate and upper SVC is noted. This could represent a catheter fragment. Clinical correlation is recommended. No acute infiltrate is seen. There is no effusion or pneumothorax identified. IMPRESSION: 1. Right Groshong catheter placement, as described. 2. Linear density on the left side, perhaps a catheter fragment. Clinical correlation to prior left-sided catheter is recommended. Dedicated CT of the chest may be useful for further evaluation. Dictated by: Dictated on workstation # [id number]
[2018-10-08 14:40] VITALS: BP 101/51
--- NOTE | 2018-10-08 14:48 | Anesthesia-General Post-Op ---
MAC Patient Condition Mental Status/LOC: Same as Preop Cardiovascular: Satisfactory Nausea/Vomiting: Absent Respiratory: Satisfactory Pain: Controlled Complications: Absent Post Op Complications Complications None Follow Up Care/Instructions Patient Instructions None needed. Anesthesiology Discharge Order Discharge Order Patient is doing well, no complaints, stable vital signs, no apparent adverse anesthesia problems. MARGY PINTO DO Oct 08, 2018 14:48
[2018-10-08 15:15] VITALS: BP 101/51
--- NOTE | 2018-10-08 23:26 | OPERATIVE REPORT ---
DATE OF SERVICE: 10/08/2018 ATTENDING PRIMARY CARE PHYSICIAN: Addy Knight DO PREOPERATIVE DIAGNOSIS: Poor peripheral venous circulation vasculopathy. POSTOPERATIVE DIAGNOSIS: Poor peripheral venous circulation vasculopathy. PROCEDURE: Right subclavian Groshong implantable catheter placement under fluoroscopy. SURGEON: Melisa Doherty MD ANESTHESIA: Monitored anesthesia care with local. ESTIMATED BLOOD LOSS: Minimal. FINDINGS: Catheter tip at superior vena cava - right atrial junction. DISPOSITION: The patient tolerated the procedure well. INDICATIONS: The patient is a 68-year-old female known to us. She has had multiple chronic abdominal issues including multiple issues with abdominal adhesions as well as abdominal surgery secondary to this. She states her initial surgery was a hysterectomy in 1981 and then she developed a hernia requiring hernia surgery and found to have extensive adhesions requiring lysis of adhesions. Since that time, she has undergone many abdominal surgical procedures and states a total of approximately 30 procedures in her lifetime. She has poor peripheral venous circulation and is a vasculopath. She had a left Groshong implantable catheter that became nonfunctional and an attempt was made for removal. Open anteriorly on 09/19/2018, however, we were unsuccessful and then a Cardiology consultation was made to proceed with removal intravascularly. However, this was also unsuccessful. The recommendation by vascular surgery was to leave the old catheter in place. She still needs a central venous catheter for frequent blood draws as well as IV fluids and medications. DESCRIPTION OF PROCEDURE: The patient was brought to the operating room, laid supine on the table. After adequate IV pain and sedative medications and monitored anesthesia care, the neck and chest were prepped and draped in standard surgical fashion. A 0.5% Marcaine with epinephrine was then used to anesthetize the overlying skin in the right subclavian region. The patient was then placed in Trendelenburg position. The right subclavian vein was then cannulated with drawing of venous blood. A guidewire was then inserted under direct visualization under fluoroscopy. The cannulating needle removed and a skin incision made using a 15 blade. The dilator and sheath were then introduced over the wire and the dilator and guidewire were then removed and the catheter was then placed until the catheter tip was at the superior vena cava/right atrial junction. The inner wire to the catheter was then removed and the catheter cut down to size and the port placed onto the catheter. The skin incision was then extended laterally using a 15 blade and the anterior chest subcutaneous reservoir was then created between the subcutaneous fat and the anterior pectoralis fascia using electrocautery as well as blunt dissection. The port was then placed into the reservoir and sutured to the anterior pectoralis fascia using interrupted 3-0 Vicryl sutures. The subcutaneous tissue was then reapproximated using 3-0 Vicryl interrupted sutures. Skin was closed using 4-0 Monocryl running subcuticular suture. Wound was then cleaned and covered with Dermabond. The patient tolerated the procedure well. We will get a post-procedure chest x-ray and once confirmation of placement, the catheter may be accessed and used at any time. Job ID: [id number] DocumentID: [id number] Dictated Date: 10/08/2018 13:58:15 Strip Winder Date: 10/08/2018 23:25:50 Dictated By: MELISA DOHERTY MD MTDD
== END 2018-10-08 15:15 | disposition home or self-care (01) ==
LOC: SDC 11:25
PROVIDERS: ATTEND Surgery
DX: I87.2 Venous insufficiency (chronic) (peripheral) (principal); E11.40 Type 2 diabetes mellitus with diabetic neuropathy, unspecified; J43.9 Emphysema, unspecified; G40.909 Epilepsy, unspecified, not intractable, without status epilepticus; I11.0 Hypertensive heart disease with heart failure; I50.9 Heart failure, unspecified; E78.00 Pure hypercholesterolemia, unspecified; K21.9 Gastro-esophageal reflux disease without esophagitis; F17.210 Nicotine dependence, cigarettes, uncomplicated; Z79.4 Long term (current) use of insulin; Z79.82 Long term (current) use of aspirin; Z79.899 Other long term (current) drug therapy
CPT/HCPCS: 71045; 82962; 87081

== ENCOUNTER → 2018-10-10 | Outpatient (CLI) | payer MEDICARE, MEDICAID ==
[~2018-10-10] MED LIST changes: +HYDR2TAB30 PO
--- NOTE | 2018-10-10 16:23 | Diagnostic Imaging Report ---
Indication: Left ankle injury and pain. AP, oblique and lateral views of the left ankle reveal no definite acute fracture. There is mild fragmentation along the inferior margin of the medial malleolus which may be secondary to old fracture. Plantar and calcaneal spurring are noted. Impression: No acute osseous abnormality is detected. Dictated by: Dictated on workstation # [id number]
== END ==
LOC: RAD 11:03
PROVIDERS: ATTEND Internal Medicine
DX: S99.912A Unspecified injury of left ankle, initial encounter (principal)
CPT/HCPCS: 73610

== ENCOUNTER 2019-01-17 12:03 | Outpatient (RCR) | payer MEDICARE, MEDICAID ==
[2018-11-08 14:00] VITALS: BP 120/64
[~2019-01-17] VITALS: Ht 154.9 cm; Wt 73.5 kg
[2019-01-17 12:03] VITALS: BP 93/61
[~2019-01-17 12:03] MED LIST changes: +CATHETER FLUSH 10 ML SYR IV PRN; +HEParin (CENTRAL IV FLUSH) 500 UNIT/5 ML SYR IV ONE; +HEParin (CENTRAL IV FLUSH) 500 UNIT/5 ML SYR ONE
[2019-01-17] MEDS ORDERED: HEParin (CENTRAL IV FLUSH) 500 UNIT/5 ML SYR ONE (12:10)
== END 2019-02-06 | disposition home or self-care (01) ==
LOC: SDC 12:03
PROVIDERS: ATTEND Internal Medicine
DX: Z45.2 Encounter for adjustment and management of vascular access device (principal)
CPT/HCPCS: 96523

== ENCOUNTER → 2019-03-10 | Outpatient (CLI) | payer MEDICARE, MEDICAID ==
[~2019-03-10] MED LIST changes: -CATHETER FLUSH 10 ML SYR IV PRN; -HEParin (CENTRAL IV FLUSH) 500 UNIT/5 ML SYR IV ONE; -HEParin (CENTRAL IV FLUSH) 500 UNIT/5 ML SYR ONE
== END ==
LOC: CARD 13:35
PROVIDERS: ATTEND Internal Medicine Cardiovascular Disease
DX: R07.89 Other chest pain (principal); E11.51 Type 2 diabetes mellitus with diabetic peripheral angiopathy without gangrene; R06.09 Other forms of dyspnea; E78.2 Mixed hyperlipidemia
CPT/HCPCS: 93306

== ENCOUNTER → 2019-03-12 | Outpatient (CLI) | payer MEDICARE, MEDICAID ==
[~2019-03-12] MED LIST changes: +CATHETER FLUSH 10 ML SYR IV PRN; +REGADENOSON 0.4 MG/5 ML SYR (LEXISCAN) IV ONE
[2019-03-12] MEDS: CATHETER FLUSH 10 ML SYR IV PRN ×2 (08:05→09:52)
[2019-03-12 09:51] VITALS: BP 115/66
--- NOTE | 2019-03-12 19:38 | STRESS TEST ---
DATE OF SERVICE: LEXISCAN MYOVIEW STRESS TEST REPORT REFERRING PHYSICIAN: Addy Knight DO Baseline heart rate is 83, baseline blood pressure 137/68. Baseline EKG is sinus rhythm with no ischemic changes. SUMMARY: The patient was injected with 10.67 mCi of technetium-99 Myoview and the resting images were obtained. Then, the patient received 0.4 mg of Lexiscan followed by 29.3 mCi of technetium-99 Myoview. Throughout the test, there were no EKG changes. The resting and stress images were reviewed and compared in the short axis, horizontal long axis, and vertical long axis views. Review of the images showed breast attenuation with reversible ischemia involving the mid to apical inferior wall and inferoseptum. SSS is 8. SDS 4. TID value 1.14. On the gated images, the left ventricle appeared to be in normal size with normal contractility. Calculated ejection fraction 76%. CONCLUSION: 1. The patient tolerated Lexiscan well. 2. Reverse of ischemia involving the mid to apical inferior wall and inferoseptum. 3. Normal left ventricular size with normal contractility. Calculated ejection fraction 76%. Job ID: [id number] DocumentID: [id number] Dictated Date: 03/12/2019 15:11:30 Pipeline Engineer Date: 03/12/2019 19:37:37 Dictated By: JUAN LICONA MD
== END ==
LOC: CARD 07:41
PROVIDERS: ATTEND Internal Medicine Cardiovascular Disease
DX: R07.89 Other chest pain (principal); R06.09 Other forms of dyspnea; E78.2 Mixed hyperlipidemia; E11.51 Type 2 diabetes mellitus with diabetic peripheral angiopathy without gangrene
CPT/HCPCS: 78452; 93017

== ENCOUNTER 2019-03-19 06:49 | Day surgery (SDC) | payer MEDICARE, MEDICAID ==
[~2019-03-19] VITALS: Ht 154.9 cm; Wt 73.5 kg
[2019-03-19] VITALS (12 sets, daily range): BP systolic 110–162; BP diastolic 53–72
[~2019-03-19 06:49] MED LIST changes: -CATHETER FLUSH 10 ML SYR IV PRN; -REGADENOSON 0.4 MG/5 ML SYR (LEXISCAN) IV ONE
[2019-03-19] MEDS ORDERED: LIDOCAINE 1% INJ 20 ML 20 ML VIAL ONE (06:52)
[2019-03-19] MEDS ORDERED: NS IV 1000 ML 1,000 ML ONE (06:52)
[2019-03-19] MEDS ORDERED: HEParin (CATH LAB) 2,000 ML IV ONE (06:52)
[2019-03-19] MEDS ORDERED: NS IV 1000 ML 1,000 ML IV SCH ×2 (07:00→08:37)
--- NOTE | 2019-03-19 07:22 | Diagnostic Imaging Report ---
Indication: Abnormal stress test. Pre-heart catheterization. Upright portable chest shows normal heart size and vascularity. There is obstructive airway disease with no mass or infiltrate seen. There is no effusion or pneumothorax. There is a wire or catheter fragment seen in the right subclavian vein extending into the superior vena cava with a similar-appearing fragment seen at the level of the innominate vein. These were present on prior study from 10/08/2018. Impression: COPD. No acute abnormality is seen. The vascularity has decreased otherwise there is no change from a prior study from 10/08/2018. Dictated by: Dictated on workstation # [id number]
[2019-03-19 07:28] LABS: HEMOGLOBIN 13.2 G/DL (11.5-16.0); RED CELL DISTRIBUTION WIDTH 13.9 % (10.0-14.5); WHITE BLOOD COUNT 9.3 10^3/uL (4.3-11.0)
[2019-03-19] MEDS ORDERED: fentaNYL INJECTION 100 MCG/2 ML AMP ONE (07:44)
[2019-03-19] MEDS ORDERED: MIDAZOLAM 5 MG/5 ML (VERSED) VIAL ONE (07:44)
[2019-03-19 07:45] LABS: CARBON DIOXIDE 25 MMOL/L (21-32); CHLORIDE 103 MMOL/L (98-107); POTASSIUM 4.1 MMOL/L (3.6-5.0); SODIUM 138 MMOL/L (135-145)
[2019-03-19 07:46] LABS: ALANINE AMINOTRANSFERASE 6 U/L (0-55); ALKALINE PHOSPHATASE 119 U/L (40-136); BILIRUBIN,TOTAL 0.4 MG/DL (0.1-1.0); BUN/CREATININE RATIO 18; CALCIUM 9.3 MG/DL (8.5-10.1); CREATININE SERUM 0.87 MG/DL (0.60-1.30); GFR ESTIMATED > 60; GLUCOSE 114 MG/DL (70-105)
--- NOTE | 2019-03-19 07:49 | Cardiac Procedure Note-CS/ASA ---
Pre-Procedure Note Pre-Op Procedure Note H&P Reviewed The H&P was reviewed, patient examined and no changes noted. Date H&P Reviewed: March 19, 2019 Time H&P Reviewed: 07:49 Conscious Sedation Pre-Proced Time 07:49 ASA Score 3 For ASA 3 and 4: Consider anesthesia and medical clearance. Also, for patients with a history of failed moderate sedation consider anesthesia. Airway Lungs Heart ASA score ASA 1: a normal healthy patient ASA 2: a patient with a mild systemic disease (mid diabetes, controlled hypertension, obesity x ASA 3: a patient with a severe systemic disease that limits activity (angina , COPD, prior Myocardial infarction) ASA 4: a patient with an incapacitating disease that is a constant threat to life (CHF, renal failure) ASA 5: a moribund patient not expected to survive 24 hrs. (ruptured aneurysm) ASA 6: a declared brain- patient whose organs are being harvested. For emergent operations, add the letter E after the classification Mallampati Classification Grade 3 Sedation Plan Analgesia, Amnesia, Plan communicated to team members, Discussed options with patient/fam, Discussed risks with patient/fam The patient is an appropriate candidate to undergo the planned procedure, sedation, and anesthesia. The patient immediately re-assessed prior to indication. JUAN LICONA MD March 19, 2019 07:49
[2019-03-19] MEDS ORDERED: METF-399 PO (08:39)
--- NOTE | 2019-03-19 08:40 | Discharge Inst-Post CATH ---
Discharge Inst-CATH/EP Post Cardiac Cath/EP D/C Inst Follow Up/Plan Appointment with Dr. LICONA's office in 2-4 weeks Hold metformin for 48 hours <b>CARDIAC CATH/EP PROCEDURE DISCHARGE INSTRUCTIONS</b> Cardiac Rehab Please be expecting a follow up call from Cardiac Rehab within in one week. ACTIVITY * Go Home directly and rest. * Limit activity of the leg (or wrist if it was used) for 7 days including aerobics, swimming, jogging, bicycling, etc. * Restrict stair-climbing for 7 days if possible, if not, climb up with your non -cath leg, then bring together on the same step. * Avoid lifting, pushing, pulling or excessive movement of the affected extremity for 7 days. * Customary sexual activity may be resumed after 2 days-use caution not to use a position that strains or causes pain to the affected extremity. * No driving for 24 hours. * NO SMOKING. * Avoid straining for bowel movements for 7 days. * Gentle walking on level ground is allowed. * Returning to work will depend on the type of procedure and the results. Your doctor will discuss this with you. CALL YOUR DOCTOR FOR ANY OF THE FOLLOWING: *If bleeding from the puncture site occurs- Apply gentle pressure to site with clean cloth and call your doctor or EMS. * If a knot or lump forms under the skin, increases in size, or causes pain. * If bruising appears to be worsening or moving further down your leg instead of disappearing. * Temperature above 101 F. CARE OF YOUR GROIN INCISION; * Bruising or purple discoloration of the skin near the puncture site is common. * You may shower only, no bathtub bathing for 5 days. Be careful to avoid slipping as your leg may feel stiff. * If a closure device was used on your femoral artery, please see the attached guide regarding care of the device and your leg. * Leave dressing on FOR 24 hours. CARE OF YOUR WRIST INCISION; * Bruising or purple discoloration of the skin near the puncture site is common. * You may shower. * DO NOT submerge wrist. * Leave dressing on FOR 24 hours. JUAN LICONA MD March 19, 2019 08:40
--- NOTE | 2019-03-19 08:44 | Cardiac Cath Report ---
Cardiac Cath Report Physician (s)/Director Of Analytics (s) Physician JUAN LICONA MD Pre-Procedure Diagnosis Pre-Procedure Diagnosis: coronary artery disease, peripheral arterial disease Post-Procedure Note Procedure Start Date: March 19, 2019 Name of Procedure: left heart catheterization Abdominal aortogram with bilateral runoff Findings/Procedure Note PROCEDURE NOTE: 69 years old lady with history of hypertension, hyperlipidemia and diabetes mellitus, has been having chest pain, had an abnormal stress test, scheduled for cardiac catheterization possible PTCA. Patient has been having lower extremities pain, had normal YOSELIN in 2017, after performing diagnostic cardiac catheterization I proceed with abdominal aortogram with bilateral runoff with limited amount of contrast. After explaining the procedure to the patient, all pros and cons were explained , all questions were answered. The patient signed the consent and then she was placed on the cardiac catheterization laboratory. Groin was prepped SL fashion local anesthesia was used. Sheath placed in the right femoral artery. Marianne right and left catheter were used to access the coronary system. Pigtail was used to access the left ventricular cavity. Left ventriculogram was done Aortic with bilateral lower extremity runoff was done At the end of the procedure the sheath was removed. Closure device was used FINDINGS: Hemodynamics LV 118/14, end-diastolic pressure 14 Aorta 112/57 mean of 81 ANATOMY: Left Main is free of obstructive disease Left Anterior Descending is small to moderate in size with some tortuosity no obstructive disease Left Circumflex is free of obstructive disease Right Coronory Artery is dominant artery with mild disease nonobstructive disease LV Gram was done showing normal left ventricular size and systolic function estimated ejection fraction 60 percent Aorta evaluation showed normal abdominal aorta, normal renal arteries. Her and inferior mesenteric arteries. Normal aortic bifurcation and runoff on the right leg was seen down to the trifurcation on the left leg to the mid SFA which showed no significant obstructive disease CONCLUSION: 1. Small coronary system with mild disease no significant obstructive disease 2. Normal left ventricular size and systolic function estimated ejection fraction 60 percent 3. Normal aorta and bilateral runoff DISCUSSION AND RECOMMENDATION: Anesthesia Type: Conscious Sedation Estimated blood loss (mL): 20 ml Contrast Amount: 89 ml Total Radiation Dose: 291 mGy Post-Procedure Diagnosis Post-operative diagnosis: Chest pain Coronary artery disease Hypertension Hyperlipidemia JUAN LICONA MD March 19, 2019 08:44
[2019-03-19] MEDS ORDERED: PATIENT MAY USE OWN MEDS, ALL PO SCH (08:45)
== END 2019-03-19 13:05 | disposition home or self-care (01) ==
LOC: CATH 06:49 → SDC 09:02 → CATH 13:05
PROVIDERS: ATTEND Internal Medicine Cardiovascular Disease
DX: R07.9 Chest pain, unspecified (principal); I25.10 Atherosclerotic heart disease of native coronary artery without angina pectoris; I10 Essential (primary) hypertension; E78.2 Mixed hyperlipidemia; E11.51 Type 2 diabetes mellitus with diabetic peripheral angiopathy without gangrene; R42 Dizziness and giddiness; R55 Syncope and collapse; R94.39 Abnormal result of other cardiovascular function study; E53.8 Deficiency of other specified B group vitamins; J44.9 Chronic obstructive pulmonary disease, unspecified; F32.9 Major depressive disorder, single episode, unspecified; M79.7 Fibromyalgia; R09.02 Hypoxemia; I65.23 Occlusion and stenosis of bilateral carotid arteries; F17.210 Nicotine dependence, cigarettes, uncomplicated; R06.09 Other forms of dyspnea; G89.29 Other chronic pain; Z79.82 Long term (current) use of aspirin; Z82.49 Family history of ischemic heart disease and other diseases of the circulatory system; Z79.899 Other long term (current) drug therapy; Z79.4 Long term (current) use of insulin; Z91.19 Patient's noncompliance with other medical treatment and regimen; Z99.81 Dependence on supplemental oxygen
CPT/HCPCS: 36415; 71045; 80053; 85027; 85610; 85730; 87081; 93458

== ENCOUNTER → 2019-05-06 | Outpatient (CLI) | payer MEDICARE, MEDICAID ==
--- NOTE | 2019-05-06 17:26 | Diagnostic Imaging Report ---
CT CHEST SCREENING WO TECHNIQUE: Low-dose unenhanced CT of the chest was performed according to the screening protocol. Coronal MIP and sagittal MPR reformats are created. Automatic exposure controls were utilized to keep dose as low as reasonably achievable. INDICATION: 69-year-old current smoker with 46 pack year history of smoking. COMPARISON: CT chest of 10/31/2016 FINDINGS: Pulmonary findings: No endoluminal nodule within the trachea. Multifocal irregular airspace nodules within the upper lobes are more abundant on the right. The dominant nodule measures 6 mm in size. Peribronchial thickening is also present. A few scattered micronodules are also present in the lower lobes. No pulmonary mass or consolidation. Extrapulmonary findings: No pleural effusion. No axillary lymphadenopathy. No mediastinal, discrete hilar or juxtaphrenic lymphadenopathy. Heart is mildly enlarged. No pericardial effusion. There are retained pacemaker leads on both sides. No concerning focal osseous lesion. IMPRESSION: 1. Multiple irregular nodular consolidations in the upper lungs are likely due to an infectious/inflammatory process. Lung-RADS category: 3 - Probably Benign Modifier: None. Recommendations: Follow up low-dose CT in 6 months is recommended. Dictated by: Dictated on workstation # [id number]
== END ==
LOC: RAD 13:02
PROVIDERS: ATTEND Nurse Practitioner Family
DX: Z12.2 Encounter for screening for malignant neoplasm of respiratory organs (principal); J18.1 Lobar pneumonia, unspecified organism; J30.9 Allergic rhinitis, unspecified; J44.9 Chronic obstructive pulmonary disease, unspecified; G47.34 Idiopathic sleep related nonobstructive alveolar hypoventilation; F12.10 Cannabis abuse, uncomplicated; F17.210 Nicotine dependence, cigarettes, uncomplicated; Z99.81 Dependence on supplemental oxygen

== ENCOUNTER 2019-05-08 13:08 | Outpatient (RCR) | payer MEDICARE, MEDICAID ==
[2019-02-14 11:57] VITALS: BP 114/70
[2019-03-13 13:21] VITALS: BP 153/71
[2019-04-10] MEDS: HEParin (CENTRAL IV FLUSH) 500 UNIT/5 ML SYR IV PRN (13:13)
[2019-04-10 13:17] VITALS: BP 97/50
[~2019-05-08] VITALS: Ht 154.9 cm; Wt 73.5 kg
[~2019-05-08 13:08] MED LIST changes: +HEParin (CENTRAL IV FLUSH) 500 UNIT/5 ML SYR IV ONE; +HEParin (CENTRAL IV FLUSH) 500 UNIT/5 ML SYR ONE
[2019-05-08] MEDS: HEParin (CENTRAL IV FLUSH) 500 UNIT/5 ML SYR IV PRN (13:18)
[2019-05-08 13:25] VITALS: BP 146/92
== END 2019-05-15 | disposition home or self-care (01) ==
LOC: SDC 13:08
PROVIDERS: ATTEND Internal Medicine
DX: Z45.2 Encounter for adjustment and management of vascular access device (principal)
CPT/HCPCS: 96523

== ENCOUNTER → 2019-06-23 | Outpatient (CLI) | payer MEDICARE, MEDICAID ==
[~2019-06-23] MED LIST changes: -HEParin (CENTRAL IV FLUSH) 500 UNIT/5 ML SYR IV ONE; -HEParin (CENTRAL IV FLUSH) 500 UNIT/5 ML SYR ONE; +OMEP20CA13 PO; +RT-ALBUTEROL SULF 2.5 MG/3 ML PRE-MIX VIAL INH ONE
== END ==
LOC: RT 09:57
PROVIDERS: ATTEND Nurse Practitioner Family
DX: J44.9 Chronic obstructive pulmonary disease, unspecified (principal); J30.9 Allergic rhinitis, unspecified; G47.34 Idiopathic sleep related nonobstructive alveolar hypoventilation; J42 Unspecified chronic bronchitis; F12.10 Cannabis abuse, uncomplicated; F17.200 Nicotine dependence, unspecified, uncomplicated; Z99.81 Dependence on supplemental oxygen
CPT/HCPCS: 94060; 94726; 94729

== ENCOUNTER 2019-06-25 07:27 | Day surgery (SDC) | payer MEDICARE, MEDICAID ==
[2019-06-25] VITALS (14 sets, daily range): BP systolic 101–148; BP diastolic 53–81
[~2019-06-25] VITALS: Ht 154.9 cm; Wt 73.5 kg
[~2019-06-25 07:27] MED LIST changes: -RT-ALBUTEROL SULF 2.5 MG/3 ML PRE-MIX VIAL INH ONE
[2019-06-25] MEDS ORDERED: LIDOCAINE PF 2% 5 ML (XYLOCAINE) VIAL INJ ONE (07:28)
[2019-06-25] MEDS ORDERED: LIDOCAINE JELLY 2% 6 ML SYRINGE TOP ONE (07:28)
[2019-06-25] MEDS ORDERED: LIDOCAINE PF 1% 2 ML VIAL IJ ONE (07:28)
[2019-06-25] MEDS ORDERED: NS IV 500 ML 500 ML ONE (08:01)
[2019-06-25] MEDS ORDERED: NS IV 500 ML 500 ML IV PRN (08:09)
[2019-06-25] MEDS ORDERED: fentaNYL INJECTION 100 MCG/2 ML AMP IVP ONE (08:15)
[2019-06-25] MEDS ORDERED: MIDAZOLAM 2 MG/2 ML (VERSED) VIAL IVP ONE (08:15)
[2019-06-25] MEDS ORDERED: MIDAZOLAM 2 MG/2 ML (VERSED) VIAL ONE ×3 (08:35)
[2019-06-25] MEDS ORDERED: fentaNYL INJECTION 100 MCG/2 ML AMP ONE ×2 (08:36)
--- NOTE | 2019-06-25 09:50 | Diagnostic Imaging Report ---
INDICATION: Chest pain Portable chest 9:18 AM Heart size and pulmonary vascularity are normal. Lungs are clear. There are no effusions or pneumothoraces. Right subclavian central line tip projects over the SVC. IMPRESSION: No acute abnormalities in the chest Dictated by: Dictated on workstation # [id number]
[2019-06-25 12:03] LABS: BF OTHER CELLS 63 %; BODY FLUID APPEARENCE SLT CLDY; BODY FLUID COLOR COLORLESS; BODY FLUID SOURCE OTHER; LYMPHOCYTES,BODY FLUID 15 %
--- NOTE | 2019-06-25 13:08 | Pulmonary Procedures ---
Pulmonary Procedures Date of Procedure Date of Service: Jun 25, 2019 Bronch Bronchoscopy with brush of maonj x 2, RUL bronchoalveolar lavage (BAL), Bilateral bronchial washes. Preop DX Lung nodules Postop DX: same Complications: none After informed consent obtained and formal time out pt was sedated using Fent anyl and Versed. Bronchoscope was advanced through the nare and vocal cords. 1% lidocaine was used to anesthetize vocal cords, epiglottis, manoj, and left/right main stem bronchus. An anatomical tour was undertaken down to the segmental bronchi bilaterally. No endobronchial lesions noted. [place] of manoj x 2, RUL bronchoalveolar lavage (BAL), Bilateral bronchial washes were obtained. Pt tolerated procedure well. No complications noted. Stat CXR is pending. QING TAO DO Jun 25, 2019 13:07
== END 2019-06-25 10:35 | disposition home or self-care (01) ==
LOC: ENDO 07:27
PROVIDERS: ATTEND Internal Medicine Critical Care Medicine
DX: J42 Unspecified chronic bronchitis (principal); J30.9 Allergic rhinitis, unspecified; J98.4 Other disorders of lung; R91.1 Solitary pulmonary nodule; R06.00 Dyspnea, unspecified; F12.10 Cannabis abuse, uncomplicated; F17.200 Nicotine dependence, unspecified, uncomplicated; Z79.82 Long term (current) use of aspirin; Z79.84 Long term (current) use of oral hypoglycemic drugs; Z79.899 Other long term (current) drug therapy; Z88.1 Allergy status to other antibiotic agents; Z91.041 Radiographic dye allergy status; R09.02 Hypoxemia
CPT/HCPCS: 71045; 82962; 87015; 87070; 87101; 87106; 87116; 87205; 87206; 88112; 88305; 88312; 89051; 94640

== ENCOUNTER 2019-08-01 11:58 | Outpatient (RCR) | payer MEDICARE, MEDICAID ==
[2019-06-05 13:45] VITALS: BP 115/63
[~2019-08-01] VITALS: Ht 154.9 cm; Wt 73.5 kg
[~2019-08-01 11:58] MED LIST changes: +HEParin (CENTRAL IV FLUSH) 500 UNIT/5 ML SYR IV ONE; +HEParin (CENTRAL IV FLUSH) 500 UNIT/5 ML SYR ONE
[2019-08-01 12:20] VITALS: BP 115/63
[2019-08-01] MEDS ORDERED: HEParin (CENTRAL IV FLUSH) 500 UNIT/5 ML SYR IV ONE (14:00)
[2019-08-01] MEDS ORDERED: CATHETER FLUSH 10 ML SYR IV PRN (14:00)
== END 2019-09-03 | disposition home or self-care (01) ==
LOC: SDC 11:58
PROVIDERS: ATTEND Internal Medicine
DX: Z45.2 Encounter for adjustment and management of vascular access device (principal)
CPT/HCPCS: 96523

== ENCOUNTER 2019-10-24 11:15 | Inpatient (IN) | payer MEDICARE, MEDICAID ==
[~2019-10-24] VITALS: Ht 162.5 cm; Wt 78.0 kg
[2019-10-24] VITALS (7 sets, daily range): BP systolic 89–122; BP diastolic 39–68
[~2019-10-24 11:15] MED LIST changes: -HEParin (CENTRAL IV FLUSH) 500 UNIT/5 ML SYR IV ONE; -HEParin (CENTRAL IV FLUSH) 500 UNIT/5 ML SYR ONE
--- NOTE | 2019-10-24 11:17 | NUR ---
Pt given warm fluids and blankets.
[2019-10-24] MEDS ORDERED: NALOXONE 0.4 MG/ML 1 ML (NARCAN) VIAL IV ONE (12:00)
--- NOTE | 2019-10-24 12:00 | ED General ---
General Chief Complaint: Cardiac/General Problems Stated Complaint: LOW BP Nursing Triage Note: Pt sent to ED via EMS from Dr. Knight's office for low BP. EMS reported systolic BP of 60. EMS reports pt could have possibly taken extra oxycontin. Pt not A&O upon arrival to ED. Nursing Sepsis Screen: No Definite Risk Source of Information: EMS Exam Limitations: No Limitations History of Present Illness Date Seen by Provider: Oct 24, 2019 Time Seen by Provider: 11:54 Initial Comments To ER per EMS from Dr. Knight's office with reports of low blood pressure and lethargy. History of urosepsis, also history of opiate use, reportedly she's been asking for increasing doses of opiates during previous visits which she has declined, concerned that possibly maybe she has taken an overdose of her oxycodone. Due to the hypotension EMS was summoned and transported her to the emergency room. Patient herself was unable to continue to history. Timing/Duration: 1-2 Days Severity: Moderate Associated Systoms: Denies Symptoms Allergies and Home Medications Allergies Coded Allergies: Iodinated Contrast Media (Verified Allergy, Unknown, 08/25/13) linezolid (Verified Allergy, Unknown, 08/25/13) Home Medications Albuterol/Ipratropium 4 Gm Aero, 1 PUFF IH QID, (Reported) Alprazolam 1 Mg Tablet, 1 MG PO TID, (Reported) Aspirin 81 Mg Tablet.dr, 81 MG PO DAILY@1400, (Reported) Atorvastatin Calcium 10 Mg Tablet, 10 MG PO HS, (Reported) Clonazepam 0.5 Mg Tablet, 0.5 MG PO Q12H PRN for ANXIETY, (Reported) Cyclobenzaprine HCl 10 Mg Tablet, 10 MG PO TID PRN for MUSCLE SPASMS, (Reported) Dicyclomine HCl 20 Mg Tablet, 10 MG PO BID, (Reported) TAKE 1/2 OF 20MG TAB Fluticasone Propionate 16 Gm [place].susp, 2 SPRAYS NSEACH DAILY, (Reported) Fluticasone/Salmeterol 1 Each Blst.w.dev, 1 PUFF IH BID, (Reported) Furosemide 20 Mg Tablet, 20 MG PO DAILY, (Reported) Hydromorphone HCl 2 Mg Tablet, 2 MG PO Q4H Prescribed by: MELISA DOHERTY on 10/08/18 1350 Insulin Detemir 100 Unit/1 Ml Insuln.pen, 35 UNITS SQ DAILY, (Reported) Lisinopril 5 Mg Tablet, 5 MG PO DAILY, (Reported) Meclizine HCl 25 Mg Tablet, 25 MG PO TID PRN for DIZZINESS, (Reported) Metformin HCl 1,000 Mg Tablet, 1,000 MG PO BID Hold for 48 hours Prescribed by: JUAN LICONA on 03/19/19 0839 Metoclopramide HCl 10 Mg Tablet, 10 MG PO QID PRN for STOMACH UPSET, (Reported) Montelukast Sodium 10 Mg Tablet, 10 MG PO DAILY@1400, (Reported) Omeprazole 20 Mg Capsule.dr, 20 MG PO BID, (Reported) Oxycodone HCl 40 Mg Tab.er.12h, 40 MG PO TID, (Reported) Oxycodone HCl 10 Mg Tablet, 10 MG PO Q6HR PRN for PAIN-SEVERE, (Reported) Polyethylene Glycol 3350 17 Gm Powd.pack, 17 GM PO DAILY PRN for CONSTIPATION- 2ND LINE, (Reported) Potassium Chloride 10 Meq Tab.er.prt, 10 MEQ PO TID, (Reported) Pregabalin 75 Mg Capsule, 75 MG PO TID, (Reported) Pregabalin 150 Mg Capsule, 150 MG PO BID, (Reported) Quetiapine Fumarate 50 Mg Tablet, 50 MG PO HS, (Reported) Ranitidine HCl 150 Mg Tablet, 150 MG PO BID, (Reported) Ropinirole HCl 1 Mg Tablet, 1 MG PO HS, (Reported) Topiramate 50 Mg Tablet, 50 MG PO DAILY, (Reported) Patient Home Medication List Home Medication List Reviewed: Yes Review of Systems Review of Systems Constitutional: see HPI EENTM: see HPI Respiratory: no symptoms reported Cardiovascular: no symptoms reported Genitourinary: no symptoms reported Musculoskeletal: no symptoms reported Skin: no symptoms reported Psychiatric/Neurological: No Symptoms Reported Hematologic/Lymphatic: No Symptoms Reported Past Hbxcmkp-Erokqv-Uooqit Hx Patient Social History Alcohol Use: Denies Use Number of Drinks Today: GG Alcohol Beverage of Choice: Rum, Whiskey, Sullivan, Vodka Recreational Drug Use: No Type Used: Cigarettes 2nd Hand Smoke Exposure: Yes Recent Foreign Travel: No Contact w/Someone Who Travel: No Recent Infectious Disease Expo: No Recent Hopitalizations: No Immunizations Up To Date Date of Pneumonia Vaccine: Jul 14, 2014 Date of Influenza Vaccine: Aug 12, 2018 Seasonal Allergies Seasonal Allergies: Yes Past Medical History Surgeries: Yes (several exploratomy laparotomies, hernia with mesh, several lysis) Appendectomy, Coronary Stent, Gallbladder, 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, Vascular Surgery Respiratory: Yes (wears 3L NC at all times) Chronic Bronchitis, COPD, Emphysema Cardiac: Yes (CHF) Chronic Edema/Swelling, High Cholesterol, Hypertension Neurological: Yes Headaches /Migraines, Neuropathy 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 Disorders: No 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: 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 Gastrointestinal: Yes (SEVERAL BOWEL OBSTRUCTIONS, chronic abd pain) Obstructive Bowel, Ulcer Musculoskeletal: Yes Arthritis, Fibromyalgia, Chronic Back Pain Endocrine: Yes Diabetes, Non-Insulin dep Cancer: No Psychosocial: Yes Anxiety, Depression Integumentary: Yes (CHRONIC ABDOMINAL WOUND--MRSA) Recent Skin Changes Blood Disorders: No Family Medical History Colon cancer G8 BROTHER (PANCREATIC) Dementia 19 MOTHER G8 BROTHER Hypertension 19 MOTHER Myocardial infarction G8 BROTHER Physical Exam Vital Signs Vital Signs - First Documented 10/24/19 10/24/19 11:15 13:20 Temp 36.6 Pulse 73 Resp 14 B/P (MAP) 103/46 (65) Pulse Ox 98 O2 Delivery Nasal Cannula O2 Flow Rate 10.00 FiO2 90 Capillary Refill : Greater Than 3 Seconds Height, Weight, BMI Height: 5'1.00" Weight: 162lbs. 0.0oz. 73.702108yy; 34.00 BMI Method:Stated General Appearance: No Apparent Distress, WD/WN Eyes: Bilateral Eye Normal Inspection, Bilateral Eye PERRL, Bilateral Eye EOMI HEENT: PERRL/EOMI, TMs Normal Respiratory: No Accessory Muscle Use, No Respiratory Distress Neurologic/Psychiatric: No Motor/Sensory Deficits, Other (lethargic,) Comments On GCS she gets 4 points for eye response, 2 points for verbal response 3 points for motor response with a total score of 9 Focused Exam Lactate Level 10/24/19 11:55: Lactic Acid Level 0.60 Lactic Acid Level Procedures/Interventions Lumen: triple Central Line Procedure: betadine prep, sterile drapes applied, sterile dressing applied Position: internal jugular (R) Anesthesia: local Volume Anesthetic (ccs): 3 Complications: none Post Position: sutured, good blood return, position confirmed w/ CXR Progress/Results/Core Measures Suspected Sepsis Recent Fever Within 48 Hours: No Infection Criteria Present: None New/Unexplained Altered Menta: No Sepsis Screen: No Definite Risk SIRS Temperature: Pulse: 73 Respiratory Rate: 14 Laboratory Tests 10/24/19 11:55: White Blood Count 14.0H Blood Pressure 103 /46 Mean: 65 10/24/19 11:55: Lactic Acid Level 0.60 Laboratory Tests 10/24/19 11:55: Creatinine 1.50H, Platelet Count 262, Total Bilirubin 0.3 Results/Orders Lab Results Laboratory Tests Test 10/24/19 11:25 10/24/19 11:55 10/24/19 13:00 Range/Units Urine Color YELLOW Urine Clarity CLEAR Urine pH 5.5 5-9 Urine Specific [place] 1.020 1.016-1.022 Urine Protein NEGATIVE NEGATIVE Urine Glucose (UA) NEGATIVE NEGATIVE Urine Ketones NEGATIVE NEGATIVE Urine Nitrite NEGATIVE NEGATIVE Urine Bilirubin NEGATIVE NEGATIVE Urine Urobilinogen 0.2 < = 1.0 MG/DL Urine Leukocyte Esterase NEGATIVE NEGATIVE Urine RBC (Auto) NEGATIVE NEGATIVE Urine RBC NONE /HPF Urine WBC NONE /HPF Urine Squamous Epithelial Cells RARE /HPF Urine Crystals NONE /LPF Urine Bacteria NEGATIVE /HPF Urine Casts PRESENT /LPF Urine Hyaline Casts 5-10 H /LPF Urine Mucus NEGATIVE /LPF Urine Culture Indicated NO Urine Opiates Screen NEGATIVE NEGATIVE Urine Oxycodone Screen POSITIVE H NEGATIVE Urine Methadone Screen NEGATIVE NEGATIVE Urine Propoxyphene Screen NEGATIVE NEGATIVE Urine Barbiturates Screen NEGATIVE NEGATIVE Ur Tricyclic Antidepressants Screen POSITIVE H NEGATIVE Urine Phencyclidine Screen NEGATIVE NEGATIVE Urine Amphetamines Screen NEGATIVE NEGATIVE Urine Methamphetamines Screen NEGATIVE NEGATIVE Urine Benzodiazepines Screen POSITIVE H NEGATIVE Urine Cocaine Screen NEGATIVE NEGATIVE Urine Cannabinoids Screen NEGATIVE NEGATIVE White Blood Count 14.0 H 4.3-11.0 10^3/uL Red Blood Count 3.91 L 4.35-5.85 10^6/uL Hemoglobin 10.8 L 11.5-16.0 G/DL Hematocrit 34 L 35-52 % Mean Corpuscular Volume 87 80-99 FL Mean Corpuscular Hemoglobin 28 25-34 PG Mean Corpuscular Hemoglobin Concent 32 32-36 G/DL Red Cell Distribution Width 14.4 10.0-14.5 % Platelet Count 262 130-400 10^3/uL Mean Platelet Volume 10.4 7.4-10.4 FL Neutrophils (%) (Auto) 79 H 42-75 % Lymphocytes (%) (Auto) 14 12-44 % Monocytes (%) (Auto) 5 0-12 % Eosinophils (%) (Auto) 1 0-10 % Basophils (%) (Auto) 0 0-10 % Neutrophils # (Auto) 11.1 H 1.8-7.8 X 10^3 Lymphocytes # (Auto) 2.0 1.0-4.0 X 10^3 Monocytes # (Auto) 0.7 0.0-1.0 X 10^3 Eosinophils # (Auto) 0.1 0.0-0.3 10^3/uL Basophils # (Auto) 0.0 0.0-0.1 10^3/uL Neutrophils % (Manual) 71 % Lymphocytes % (Manual) 14 % Monocytes % (Manual) 8 % Eosinophils % (Manual) 3 % Basophils % (Manual) 0 % Band Neutrophils 4 % Blood Morphology Comment NORMAL Sodium Level 138 135-145 MMOL/L Potassium Level 5.2 H 3.6-5.0 MMOL/L Chloride Level 103 98-107 MMOL/L Carbon Dioxide Level 27 21-32 MMOL/L Anion Gap 8 5-14 MMOL/L Blood Urea Nitrogen 33 H 7-18 MG/DL Creatinine 1.50 H 0.60-1.30 MG/DL Estimat Glomerular Filtration Rate 35 BUN/Creatinine Ratio 22 Glucose Level 108 H 70-105 MG/DL Lactic Acid Level 0.60 0.50-2.00 MMOL/L Calcium Level 7.9 L 8.5-10.1 MG/DL Corrected Calcium 8.3 L 8.5-10.1 MG/DL Total Bilirubin 0.3 0.1-1.0 MG/DL Aspartate Amino Transf (AST/SGOT) 11 5-34 U/L Alanine Aminotransferase (ALT/SGPT) < 6 0-55 U/L Alkaline Phosphatase 93 40-136 U/L Troponin I < 0.028 <0.028 NG/ML B-Type Natriuretic Peptide 59.0 <100.0 PG/ML Total Protein 6.4 6.4-8.2 GM/DL Albumin 3.5 3.2-4.5 GM/DL Lipase 4 L 8-78 U/L Procalcitonin 0.07 <0.10 NG/ML Serum Alcohol < 10 <10 MG/DL Blood Gas Puncture Site RIGHT RADIAL Blood Gas Patient Temperature 36.6 Arterial Blood pH 7.28 *L 7.37-7.43 Arterial Blood Partial Pressure CO2 63 H 35-45 MMHG Arterial Blood Partial Pressure O2 37 *L 79-93 MMHG Arterial Blood HCO3 29 H 23-27 MMOL/L Arterial Blood Total CO2 30.7 21.0-31.0 MMOL/L Arterial Blood Oxygen Saturation 57 L 94-100 % Arterial Blood Base Excess 2.5 -2.5-2.5 MMOL/L Barber Test POSITIVE Blood Gas Ventilator Setting NO Blood Gas Inspired Oxygen 10 L Micro Results Microbiology 10/24/19 Influenza Types A,B Antigen (EBONIE) - Final, Complete My Orders Orders - RICHARD MCGOVERN SUPERVISOR INSPECTION ROOM Cbc With Automated Diff (10/24/19 11:52) Comprehensive Metabolic Panel (10/24/19 11:52) Ua Culture If Indicated (10/24/19 11:52) Lipase (10/24/19 11:52) Ct Head Wo (10/24/19 11:52) Chest 1 View, Ap/Pa Only (10/24/19 11:52) Ed Iv/Invasive Line Start (10/24/19 11:52) Drug Screen Stat (Urine) (10/24/19 11:52) Alcohol (10/24/19 11:52) BNP (10/24/19 11:52) Troponin I (10/24/19 11:52) Naloxone Injection (Narcan Injection) (10/24/19 12:00) Manual Differential (10/24/19 11:55) Influenza A And B Antigens (10/24/19 12:10) Svn Small Volume Nebulizer (10/24/19 12:10) Albuterol/Ipra Inhalation Soln (Duoneb I (10/24/19 12:15) Blood Culture (10/24/19 12:25) Lactic Acid Analyzer (10/24/19 12:25) Ct Chest/Abdomen/Pelvis Wo (10/24/19 12:31) Arterial Blood Gas (10/24/19 13:03) Ns Iv 1000 Ml (Sodium Chloride 0.9%) (10/24/19 15:00) Sodium 2g (2000 Mg) (10/24/19 Lunch) Piperacillin Sodium/Tazobactam (Zosyn Vi (10/24/19 16:00) Naloxone Injection (Narcan Injection) (10/24/19 16:11) Medications Given in ED Current Medications Medications Dose Ordered Sig/Alexandru Route Start Time Stop Time Status Last Admin Dose Admin Albuterol/ Ipratropium 3 ml ONCE ONCE INH 10/24/19 12:15 10/24/19 12:16 DC 10/24/19 13:19 3 ML Naloxone HCl 0.4 mg ONCE ONCE IV 10/24/19 12:00 10/24/19 12:01 DC 10/24/19 12:04 0.2 MG Vital Signs/I&O 10/24/19 10/24/19 11:15 13:20 Temp 36.6 Pulse 73 Resp 14 B/P (MAP) 103/46 (65) Pulse Ox 98 O2 Delivery Nasal Cannula Nasal Cannula O2 Flow Rate 10.00 10.00 FiO2 90 Capillary Refill : Greater Than 3 Seconds Blood Pressure Mean: 65 POS Diagnostic Imaging Diagonstic Imaging: CT Comments NAME: REGI PAL [facility] REC#: [id number] PT STATUS: REG ER : 1950 PHYSICIAN: RICHARD MCGOVERN APRN ADMIT DATE: 10/24/19/ER Signed POSDate of Exam:10/24/19 CT HEAD WO PROCEDURE: CT head without contrast. TECHNIQUE: Multiple contiguous axial images were obtained through the brain without the use of intravenous contrast. Auto Exposure Controls were utilized during the CT exam to meet ALARA standards for radiation dose reduction. INDICATION: Low blood pressure. Altered mental status. COMPARISON: 06/05/2010. FINDINGS: The ventricles and cortical sulci are age-appropriate. There is no midline shift or mass-effect. No acute intracranial hemorrhage is seen. There is no CT evidence of acute territorial ischemia. No focal masses or collections are present. The calvarium is intact. The ethmoid sinuses demonstrate mucosal thickening. IMPRESSION: No hemorrhage or focal intra-axial mass. No CT evidence of large acute territorial ischemia. Dictated by: Dictated on workstation # [id number] Dict: 10/24/19 1239 Trans: 10/24/19 1240 [facility] [id number] Interpreted by: GARCIA HOGUE DO Electronically signed by: GARCIA HOGUE DO 10/24/19 1240 NAME: REGI PAL MED REC#: [id number] PT STATUS: REG ER : 1950 PHYSICIAN: RICHARD MCGOVERN SUPER[employer]OR [employer]PECTION ROOM ADMIT DATE: 10/24/19/ER Draft POSDate of Exam:10/24/19 CT CHEST/ABDOMEN/PELVIS WO EXAMINATION: CT Chest, Abdomen and Pelvis without intravenous contrast. TECHNIQUE: Multiple contiguous axial images were obtained through the chest, abdomen and pelvis without intravenous contrast. All CT scans use one or more of the following dose optimizing techniques: automated exposure control, MA and/or KvP adjustment based on a patient size and exam type, or iterative reconstruction. HISTORY: Low blood pressure. COMPARISON: 10/31/2016. FINDINGS: There are centrilobular groundglass nodules in both lower lobes, right greater than left. No consolidation. No edema. No pleural effusion or pneumothorax. No suspicious nodules. Heart size is normal. No pericardial effusion. Aorta is normal in caliber. There is no axillary or supraclavicular lymphadenopathy. There is no mediastinal lymphadenopathy. Catheter wire fragments are present in the superior vena cava and both subclavian veins, possibly from prior pacemaker. The liver is normal without focal lesion. There is no biliary ductal dilation. Gallbladder is absent. Pancreas is normal. Spleen is normal. Adrenal glands are normal. The kidneys are normal. There is no hydronephrosis. Urinary bladder is decompressed by Sheth catheter. There are some midline abdominal scars with multiple bowel loops tethered anteriorly likely representing adhesions. No bowel obstruction is seen. No bowel inflammation. Surgical clips are seen in the right groin. No free fluid or air. No abdominal or pelvic lymphadenopathy. Aorta is normal in caliber without aneurysm. There are no suspicious osseus lesions. IMPRESSION: 1. Centrilobular groundglass nodules in both lung bases, right greater than left. Pain is most suggestive of aspiration. 2. No acute abnormality in the abdomen or pelvis. Dictated on workstation # [id number] Dict: 10/24/19 1257 Trans: 10/24/19 1311 [facility] [id number] Interpreted by: EAN HAMM MD Electronically signed by: Departure Communication (Admissions) Time/Spoke to Admitting Phy: 13:38 EMS was unable to establish IV access and out of the hospital, as such intraosseous needle was established in the proximal tibia on the right, Marrow was aspirated, because of subsequent pain 20 mg IV lidocaine was given. We then proceeded with central line placement ultrasound-guided right internal jugular 1334-patient is now quite a bit more alert, she gets 4 points for eye response, 5 points for peripheral response and 6 points for motor response, GCS being 15 currently. Family is at the bedside visiting with her, on 6 L of oxygen via nasal cannula she is 100% SPO2. We'll admit to ICU, Zosyn, further evaluation and treatment to follow. I spoke with Dr. Smith and he agrees. Patient family states that she had a port on the left side that was removed, there was a piece of the tubing left inside of her but "they told her that it would be too much to go in and get it" according to family so they were going to leave it in place. This is consistent with the finding on chest x-ray of fractured groshong catheter tubing. 1628-Patient has again become excessively somnolent with a blood pressure of 82/40, GCS 8-9, she was given 0.2 mg of Narcan with immediate improvement in mentation, alert and oriented sitting up.Her blood pressure is now 128/69 Impression Primary Impression: Opiate overdose Qualified Codes: T40.601A - Poisoning by unspecified narcotics, accidental (unintentional), initial encounter Additional Impressions: Hypoxia Pneumonia Qualified Codes: J18.9 - Pneumonia, unspecified organism Altered mental status Qualified Codes: R41.0 - Disorientation, unspecified Disposition: 09 ADMITTED INPATIENT Condition: Stable Admissions Decision to Admit Reason: Admit from ER (General) Decision to Admit/Date: Oct 24, 2019 Time/Decision to Admit Time: 13:38 Departure-Patient Inst. Referrals: RUDOLPH KNIGHT DO (PCP/Family) Primary Care Physician RICHARD MCGOVERN APRN Oct 24, 2019 11:59 POS
[2019-10-24 12:05] LABS: BASOPHILS % (AUTO) 0 % (0-10); EOSINOPHILS # (AUTO) 0.1 10^3/uL (0.0-0.3); EOSINOPHILS % (AUTO) 1 % (0-10); HEMATOCRIT 34 % (35-52); HEMOGLOBIN 10.8 G/DL (11.5-16.0); LYMPHOCYTES % (AUTO) 14 % (12-44); MEAN CORPUSCULAR HEMOGLOBIN 28 PG (25-34); MEAN CORPUSCULAR HGB CONC 32 G/DL (32-36); MEAN CORPUSCULAR VOLUME 87 FL (80-99); MEAN PLATELET VOLUME 10.4 FL (7.4-10.4); MONOCYTES # (AUTO) 0.7 X 10^3 (0.0-1.0); MONOCYTES % (AUTO) 5 % (0-12); NEUTROPHILS # (AUTO) 11.1 X 10^3 (1.8-7.8); NEUTROPHILS % (AUTO) 79 % (42-75); PLATELET COUNT 262 10^3/uL (130-400); RED CELL DISTRIBUTION WIDTH 14.4 % (10.0-14.5)
[2019-10-24 12:06] LABS: BILIRUBIN,URINE NEGATIVE (NEGATIVE); CLARITY,URINE CLEAR; COLOR,URINE YELLOW; GLUCOSE, URINE (UA) NEGATIVE (NEGATIVE); KETONES,URINE NEGATIVE (NEGATIVE); LEUKOCYTE ESTERASE ,URINE NEGATIVE (NEGATIVE); NITRITE,URINE NEGATIVE (NEGATIVE); PH,URINE 5.5 (5-9); PROTEIN,URINE NEGATIVE (NEGATIVE)
[2019-10-24 12:13] LABS: BACTERIA,URINE NEGATIVE /HPF; SQUAMOUS EPITHELIAL CELL,UR RARE /HPF
[2019-10-24] MEDS ORDERED: RT-ALBUTEROL/IPRATROPIUM 3 ML (DUONEB) VIAL INH ONE (12:15)
[2019-10-24 12:18] LABS: AMPHETAMINE SCREEN, URINE NEGATIVE (NEGATIVE); BARBITURATE SCREEN URINE NEGATIVE (NEGATIVE); BENZODIAZEPINES SCREEN URINE POSITIVE (NEGATIVE); CANNABINOID SCREEN, URINE NEGATIVE (NEGATIVE); COCAINE SCREEN URINE NEGATIVE (NEGATIVE); METHADONE STAT NEGATIVE (NEGATIVE); METHAMPHETAMINE SCREEN URINE S NEGATIVE (NEGATIVE); OPIATE SCREEN URINE NEGATIVE (NEGATIVE); OXYCODONE STAT POSITIVE (NEGATIVE); PROPOXYPHENE STAT NEGATIVE (NEGATIVE); TRICYCLIC ANTIDEPRESSANTS SCRE POSITIVE (NEGATIVE)
--- NOTE | 2019-10-24 12:23 | Diagnostic Imaging Report ---
INDICATION: Hypotension. Line placement. TECHNIQUE: Single view chest, 12:01 p.m. CORRELATION STUDY: 06/25/2019. FINDINGS: Right IJ central line has been placed with tip projecting over the high right paramediastinal region likely over the SVC. Suggestion of distal linear density over the left paramediastinal region coursing over the right paraspinal region. Possibility that this represents an additional line not excluded but cannot be traced peripherally. Multiple overlying monitor leads are present. Heart size is mildly enlarged but stable. Vasculature is overall slightly prominent. Blunting of the left costophrenic angle appears unchanged, likely pleural thickening. No definitive consolidating infiltrate. IMPRESSION: 1. Right IJ central line has been placed with tip projecting over the high right paramediastinal region without evidence for post line placement complication. 2. Borderline heart size with vascularity slightly increased from prior study. Some fullness of the right hilum. Short-term follow-up two-view chest imaging recommended. 3. There is what appears to be a likely catheter line fragment projecting over the right paramediastinal region coursing through the left upper chest. This cannot be traced peripherally and likely reflects a retained catheter. This is a chronic, nonacute finding. Dictated by: Dictated on workstation # [id number]
[2019-10-24 12:24] LABS: ALANINE AMINOTRANSFERASE < 6 U/L (0-55); ALBUMIN 3.5 GM/DL (3.2-4.5); ALKALINE PHOSPHATASE 93 U/L (40-136); BILIRUBIN,TOTAL 0.3 MG/DL (0.1-1.0); BUN/CREATININE RATIO 22; CALCIUM 7.9 MG/DL (8.5-10.1); CARBON DIOXIDE 27 MMOL/L (21-32); CHLORIDE 103 MMOL/L (98-107); GFR ESTIMATED 35; GLUCOSE 108 MG/DL (70-105); LIPASE 4 U/L (8-78); POTASSIUM 5.2 MMOL/L (3.6-5.0); SODIUM 138 MMOL/L (135-145); TOTAL PROTEIN 6.4 GM/DL (6.4-8.2)
[2019-10-24 12:41] LABS: BAND NEUTROPHILS 4 %; BASOPHILS % (MANUAL) 0 %; EOSINOPHILS % (MANUAL) 3 %; LYMPHOCYTES % (MANUAL) 14 %; MONOCYTES % (MANUAL) 8 %; NEUTROPHILS % (MANUAL) 71 %; RBC MORPH NORMAL
--- NOTE | 2019-10-24 12:41 | Diagnostic Imaging Report ---
PROCEDURE: CT head without contrast. TECHNIQUE: Multiple contiguous axial images were obtained through the brain without the use of intravenous contrast. Auto Exposure Controls were utilized during the CT exam to meet ALARA standards for radiation dose reduction. INDICATION: Low blood pressure. Altered mental status. COMPARISON: 06/05/2010. FINDINGS: The ventricles and cortical sulci are age-appropriate. There is no midline shift or mass-effect. No acute intracranial hemorrhage is seen. There is no CT evidence of acute territorial ischemia. No focal masses or collections are present. The calvarium is intact. The ethmoid sinuses demonstrate mucosal thickening. IMPRESSION: No hemorrhage or focal intra-axial mass. No CT evidence of large acute territorial ischemia. Dictated by: Dictated on workstation # [id number]
--- NOTE | 2019-10-24 13:11 | Diagnostic Imaging Report ---
EXAMINATION: CT Chest, Abdomen and Pelvis without intravenous contrast. TECHNIQUE: Multiple contiguous axial images were obtained through the chest, abdomen and pelvis without intravenous contrast. All CT scans use one or more of the following dose optimizing techniques: automated exposure control, MA and/or KvP adjustment based on a patient size and exam type, or iterative reconstruction. HISTORY: Low blood pressure. COMPARISON: 10/31/2016. FINDINGS: There are centrilobular groundglass nodules in both lower lobes, right greater than left. No consolidation. No edema. No pleural effusion or pneumothorax. No suspicious nodules. Heart size is normal. No pericardial effusion. Aorta is normal in caliber. There is no axillary or supraclavicular lymphadenopathy. There is no mediastinal lymphadenopathy. Catheter wire fragments are present in the superior vena cava and both subclavian veins, possibly from prior pacemaker. The liver is normal without focal lesion. There is no biliary ductal dilation. Gallbladder is absent. Pancreas is normal. Spleen is normal. Adrenal glands are normal. The kidneys are normal. There is no hydronephrosis. Urinary bladder is decompressed by Sheth catheter. There are some midline abdominal scars with multiple bowel loops tethered anteriorly likely representing adhesions. No bowel obstruction is seen. No bowel inflammation. Surgical clips are seen in the right groin. No free fluid or air. No abdominal or pelvic lymphadenopathy. Aorta is normal in caliber without aneurysm. There are no suspicious osseus lesions. IMPRESSION: 1. Centrilobular groundglass nodules in both lung bases, right greater than left. Pain is most suggestive of aspiration. 2. No acute abnormality in the abdomen or pelvis. Dictated by: Dictated on workstation # [id number]
[2019-10-24 13:12] LABS: ABG BASE EXCESS 2.5 MMOL/L (-2.5-2.5); ABG OXYGEN SATURATION 57 % (94-100); ABG PCO2 63 MMHG (35-45); ABG TCO2 30.7 MMOL/L (21.0-31.0)
[2019-10-24 13:15] LABS: ABG PH 7.28 (7.37-7.43)
[2019-10-24 13:16] LABS: ABG PO2 37 MMHG (79-93); ALLENS TEST POSITIVE; INSPIRED O2 10 L; PATIENT TEMP 36.6; VENTILATOR NO
--- NOTE | 2019-10-24 13:40 | NUR ---
Pt alert and oriented at this time. Pt sitting up in bed talking with family. Pt given additional warm blankets at this time.
[2019-10-24] MEDS ORDERED: LIDOCAINE BOLUS 100 MG/5 ML (IMS) SYR INJ ONE (14:20)
--- NOTE | 2019-10-24 14:25 | NUR ---
Informed family pt would be going to ICU 10 and that it would be at least an hour until the room is ready. Repositioned pt to L side and put a pillow behind back at this time.
[2019-10-24] MEDS ORDERED: NS IV 1000 ML 1,000 ML IV SCH (15:00)
--- NOTE | 2019-10-24 15:03 | NUR ---
Low BP at 14[address] pt is laying and cuff is positioned. Pt repositioned in bed and cuff moved. BP now 96/50.
[2019-10-24] MEDS ORDERED: PIPERACILLIN SODIUM/TAZOBACTAM 4.5 GM in NS (IVPB) 100 ML IV ONE (16:00)
[2019-10-24] MEDS ORDERED: NALOXONE 0.4 MG/ML 1 ML (NARCAN) VIAL ONE (16:11)
--- NOTE | 2019-10-24 16:15 | NUR ---
Went in to check on pt due to drop in BP. Pt's granddaughters are in room with pt. Pt now snoring respirations, and only awakens with painful stimuli. This nurse asked granddaughters if there was any change in the pt noted while in the room. Granddaughters reported not noticing anything and that this is normal behavior for pt. Ari Addison notified.
--- NOTE | 2019-10-24 16:48 | NUR ---
REGI PAL admitted to room CU10-1, with an admitting diagnosis of hypotension, on 10/24/19 from AM [facility] via , accompanied by .REGI PAL introduced to surroundings, call light, bed controls, phone, TV, temperature control, lights, meal times, smoking policy, visitor policy, side rail policy, bathrooms and showers. Patient Rights given to patient in the handbook. REGI PAL verbalizes understanding that [facility] is not responsible for the loss or damage to any personal effects or valuables that are kept in the patients posession during their hospitalization.
[2019-10-24] MEDS ORDERED: ONDANSETRON 4 MG/2 ML (SDV) Z0FRAN IV PRN (17:15)
[2019-10-24] MEDS ORDERED: CATHETER FLUSH 10 ML SYR IV PRN (17:15)
[2019-10-24] MEDS ORDERED: NALOXONE 0.4 MG/ML 1 ML (NARCAN) VIAL IV PRN (17:15)
[2019-10-24] MEDS: NS IV 1000 ML 1,000 ML IV SCH (18:10)
[2019-10-24] MEDS: PIPERACILLIN/TAZO 4.5 GM/NS 100 ML IV SCH ×2 (22:11)
[2019-10-25] VITALS (9 sets, daily range): BP systolic 90–121; BP diastolic 47–67
[2019-10-25 03:32] LABS: BASOPHILS % (AUTO) 0 % (0-10); EOSINOPHILS % (AUTO) 0 % (0-10); HEMATOCRIT 33 % (35-52); HEMOGLOBIN 10.2 G/DL (11.5-16.0); LYMPHOCYTES # (AUTO) 2.2 X 10^3 (1.0-4.0); LYMPHOCYTES % (AUTO) 23 % (12-44); MEAN CORPUSCULAR HEMOGLOBIN 28 PG (25-34); MEAN CORPUSCULAR HGB CONC 31 G/DL (32-36); MEAN CORPUSCULAR VOLUME 89 FL (80-99); MEAN PLATELET VOLUME 10.9 FL (7.4-10.4); MONOCYTES # (AUTO) 0.5 X 10^3 (0.0-1.0); MONOCYTES % (AUTO) 5 % (0-12); NEUTROPHILS # (AUTO) 6.8 X 10^3 (1.8-7.8); NEUTROPHILS % (AUTO) 72 % (42-75); PLATELET COUNT 245 10^3/uL (130-400); RED CELL DISTRIBUTION WIDTH 14.2 % (10.0-14.5); WHITE BLOOD COUNT 9.5 10^3/uL (4.3-11.0)
--- NOTE | 2019-10-25 03:42 | Pulmonary Progress Note ---
Subjective Date Seen by a Provider: Oct 25, 2019 Time Seen by a Provider: 03:30 Subjective/Events-last exam The patient is a 69 year old female who was sent to [facility] Emergency Department by her primary care provider for concerns of possible opioid overdose. She was administered narcan in the ER with marked improvement in mentation and blood pressure. This morning she states that she is feeling fine and has no complaints. She is resting comfortably and participates fully with the physical exam. She answers all questions appropriately. Sepsis Event Evaluation Height, Weight, BMI Height: 5'1.00" Weight: 162lbs. 0.0oz. 73.004244ti; 28.78 BMI Method:Stated Focused Exam Lactate Level 10/24/19 11:55: Lactic Acid Level 0.60 Exam Exam Vital Signs Date Time Temp Pulse Resp B/P (MAP) Pulse Ox O2 Delivery O2 Flow Rate FiO2 10/25/19 01:00 80 10/25/19 00:00 Nasal Cannula 96.00 4 10/24/19 23:17 Nasal Cannula 3.00 10/24/19 22:00 36.4 10/24/19 20:00 Nasal Cannula 96.00 4 10/24/19 20:00 37.6 10/24/19 19:00 90 10/24/19 18:00 35.2 71 21 97/50 (66) 92 Nasal Cannula 3.00 10/24/19 17:23 94 Nasal Cannula 3.00 10/24/19 17:15 71 18 89/39 (56) 93 Nasal Cannula 4.00 10/24/19 17:05 76 10/24/19 16:45 36.6 73 15 106/60 98 Nasal Cannula 6.00 10/24/19 13:20 Nasal Cannula 10.00 90 10/24/19 11:15 36.6 73 14 103/46 (65) 98 Nasal Cannula 10.00 I & O 10/25/19 07:00 Intake Total 1000 ml Output Total 2315 ml Balance -1315 ml Height & Weight Height: 5'1.00" Weight: 162lbs. 0.0oz. 73.293066ov; 28.78 BMI Method:Stated General Appearance: No Apparent Distress, WD/WN HEENT: PERRL/EOMI, TMs Normal Respiratory: No Accessory Muscle Use, No Respiratory Distress, Rhonci, Wheezing Cardiovascular: Regular Rate, Rhythm, No Edema, No Murmur, Normal Peripheral Pulses Capillary Refill: Less Than 3 Seconds Neurologic/Psychiatric: Alert, Oriented x3, No Motor/Sensory Deficits, Other (lethargic,) Skin: Normal Color, Warm/Dry Results Lab Laboratory Tests 10/24/19 11:55 Assessment/Plan Assessment/Plan 1. Pneumonia - -pipercillin/tazobactam - continue IV therapy -transfer to floor today 2. Opioid overdose - resolved - continue to monitor TERRA OLIVEIRA MED STUDENT Oct 25, 2019 03:42 POS
[2019-10-25 03:50] LABS: CREATININE SERUM 1.12 MG/DL (0.60-1.30); MAGNESIUM 1.7 MG/DL (1.6-2.4); PHOSPHORUS 3.5 MG/DL (2.3-4.7); POTASSIUM 4.2 MMOL/L (3.6-5.0)
[2019-10-25] MEDS: NS IV 1000 ML 1,000 ML IV SCH (04:35)
--- NOTE | 2019-10-25 04:52 | Pulmonary Consultation ---
History of Present Illness History of Present Illness Date Seen by Provider: Oct 25, 2019 Time Seen by Provider: 04:51 Date of Admission History of Present Illness The patient is a 69 year old female who was sent to [facility] Emergency Department by her primary care provider for concerns of possible opioid overdose. She was administered narcan in the ER with marked improvement in mentation and blood pressure. This morning she states that she is feeling fine and has no complaints. She is resting comfortably and participates fully with the physical exam. She answers all questions appropriately. Allergies and Home Medications Allergies Coded Allergies: Iodinated Contrast Media (Verified Allergy, Unknown, 08/25/13) linezolid (Verified Allergy, Unknown, 08/25/13) Home Medications Albuterol/Ipratropium 4 Gm Aero, 1 PUFF IH QID, (Reported) Alprazolam 1 Mg Tablet, 1 MG PO TID, (Reported) Aspirin 81 Mg Tablet.dr, 81 MG PO DAILY@1400, (Reported) Atorvastatin Calcium 10 Mg Tablet, 10 MG PO HS, (Reported) Clonazepam 0.5 Mg Tablet, 0.5 MG PO Q12H PRN for ANXIETY, (Reported) Cyclobenzaprine HCl 10 Mg Tablet, 10 MG PO TID PRN for MUSCLE SPASMS, (Reported) Dicyclomine HCl 20 Mg Tablet, 10 MG PO BID, (Reported) TAKE 1/2 OF 20MG TAB Fluticasone Propionate 16 Gm [place].susp, 2 SPRAYS NSEACH DAILY, (Reported) Fluticasone/Salmeterol 1 Each Blst.w.dev, 1 PUFF IH BID, (Reported) Furosemide 20 Mg Tablet, 20 MG PO DAILY, (Reported) Hydromorphone HCl 2 Mg Tablet, 2 MG PO Q4H Prescribed by: MELISA DOHERTY on 10/08/18 1350 Insulin Detemir 100 Unit/1 Ml Insuln.pen, 35 UNITS SQ DAILY, (Reported) Lisinopril 5 Mg Tablet, 5 MG PO DAILY, (Reported) Meclizine HCl 25 Mg Tablet, 25 MG PO TID PRN for DIZZINESS, (Reported) Metformin HCl 1,000 Mg Tablet, 1,000 MG PO BID Hold for 48 hours Prescribed by: JUAN LICONA on 03/19/19 0839 Metoclopramide HCl 10 Mg Tablet, 10 MG PO QID PRN for STOMACH UPSET, (Reported) Montelukast Sodium 10 Mg Tablet, 10 MG PO DAILY@1400, (Reported) Omeprazole 20 Mg Capsule.dr, 20 MG PO BID, (Reported) Oxycodone HCl 40 Mg Tab.er.12h, 40 MG PO TID, (Reported) Oxycodone HCl 10 Mg Tablet, 10 MG PO Q6HR PRN for PAIN-SEVERE, (Reported) Polyethylene Glycol 3350 17 Gm Powd.pack, 17 GM PO DAILY PRN for CONSTIPATION-2 ND LINE, (Reported) Potassium Chloride 10 Meq Tab.er.prt, 10 MEQ PO TID, (Reported) Pregabalin 75 Mg Capsule, 75 MG PO TID, (Reported) Pregabalin 150 Mg Capsule, 150 MG PO BID, (Reported) Quetiapine Fumarate 50 Mg Tablet, 50 MG PO HS, (Reported) Ranitidine HCl 150 Mg Tablet, 150 MG PO BID, (Reported) Ropinirole HCl 1 Mg Tablet, 1 MG PO HS, (Reported) Topiramate 50 Mg Tablet, 50 MG PO DAILY, (Reported) Past Higrpux-Dwixxc-Nmmqud Hx Patient Social History Alcohol Use: Denies Use Number of Drinks Today: GG Alcohol Beverage of Choice: Rum, Whiskey, Kern, Vodka Recreational Drug Use: No Type Used: Cigarettes 2nd Hand Smoke Exposure: Yes Recent Foreign Travel: No Contact w/Someone Who Travel: No Recent Infectious Disease Expo: No Recent Hopitalizations: No Immunizations Up To Date Date of Pneumonia Vaccine: Sep 24, 2019 Date of Influenza Vaccine: Sep 24, 2019 Seasonal Allergies Seasonal Allergies: Yes Past Medical History Surgeries: Yes (several exploratomy laparotomies, hernia with mesh, several lysis) Appendectomy, Coronary Stent, Gallbladder, 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, Vascular Surgery Respiratory: Yes (wears 3L NC at all times) Chronic Bronchitis, COPD, Emphysema Cardiac: Yes (CHF) Chronic Edema/Swelling, High Cholesterol, Hypertension Neurological: Yes Headaches /Migraines, Neuropathy 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 Disorders: No [employer] History: 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 Gastrointestinal: Yes (SEVERAL BOWEL OBSTRUCTIONS, chronic abd pain) Obstructive Bowel, Ulcer Musculoskeletal: Yes Arthritis, Fibromyalgia, Chronic Back Pain Endocrine: Yes Diabetes, Non-Insulin dep Cancer: No Psychosocial: Yes Anxiety, Depression Integumentary: Yes (CHRONIC ABDOMINAL WOUND--MRSA) Recent Skin Changes Blood Disorders: No Family Medical History Colon cancer G8 BROTHER (PANCREATIC) Dementia 19 MOTHER G8 BROTHER Hypertension 19 MOTHER Myocardial infarction G8 BROTHER Review of Systems Time Seen by Provider: 05:32 Sepsis Event Evaluation Height, Weight, BMI Height: 5'1.00" Weight: 162lbs. 0.0oz. 73.293251qs; 28.78 BMI Method:Stated Exam Exam Vital Signs Date Time Temp Pulse Resp B/P (MAP) Pulse Ox O2 Delivery O2 Flow Rate FiO2 10/25/19 04:00 71 17 95/57 (70) 96 Nasal Cannula 3.00 10/25/19 03:00 65 21 115/63 (80) 96 Nasal Cannula 3.00 10/25/19 02:00 65 22 104/61 (75) 96 Nasal Cannula 3.00 10/25/19 01:00 80 10/25/19 01:00 67 16 91/62 (72) 92 Nasal Cannula 3.00 10/25/19 00:00 68 16 90/47 (61) 95 Nasal Cannula 3.00 10/25/19 00:00 Nasal Cannula 96.00 4 10/24/19 23:17 Nasal Cannula 3.00 10/24/19 23:00 71 18 90/47 (61) 94 Nasal Cannula 3.00 10/24/19 22:00 75 18 89/45 (60) 93 Nasal Cannula 3.00 10/24/19 22:00 36.4 10/24/19 21:00 81 17 116/59 (78) 94 Nasal Cannula 3.00 10/24/19 20:00 Nasal Cannula 96.00 4 10/24/19 20:00 37.6 10/24/19 20:00 80 17 106/54 (71) 94 Nasal Cannula 3.00 10/24/19 19:00 86 20 122/68 (86) 92 Nasal Cannula 3.00 10/24/19 19:00 90 10/24/19 18:00 35.2 71 21 97/50 (66) 92 Nasal Cannula 3.00 10/24/19 17:23 94 Nasal Cannula 3.00 10/24/19 17:15 71 18 89/39 (56) 93 Nasal Cannula 4.00 10/24/19 17:05 76 10/24/19 16:45 36.6 73 15 106/60 98 Nasal Cannula 6.00 10/24/19 13:20 Nasal Cannula 10.00 90 10/24/19 11:15 36.6 73 14 103/46 65 98 Nasal Cannula 10.00 I & O 10/25/19 07:00 Intake Total 1000 ml Output Total 2315 ml Balance -1315 ml Height & Weight Height: 5'1.00" Weight: 162lbs. 0.0oz. 73.001394kr; 28.78 BMI Method:Stated General Appearance: No Apparent Distress, WD/WN HEENT: PERRL/EOMI, TMs Normal Respiratory: No Accessory Muscle Use, No Respiratory Distress, Rhonci, Wheezing Cardiovascular: Regular Rate, Rhythm, No Edema, No Murmur, Normal Peripheral Pulses Capillary Refill: Less Than 3 Seconds Neurologic/Psychiatric: Alert, Oriented x3, No Motor/Sensory Deficits, Other (lethargic,) Skin: Normal Color, Warm/Dry Results Lab Laboratory Tests 10/24/19 11:55 10/25/19 03:25 Assessment/Plan Assessment/Plan Pneumonia - probable aspiration -Currently on Zosyn -Mora cultures pending Opioid overdose - resolved - continue to monitor -Education Pt is doing better will transfer to 4th floor. Ok from pulmonary standpoint for discharge with Augmentin. QING TAO DO Oct 25, 2019 04:52 POS
[2019-10-25] MEDS: PIPERACILLIN/TAZO 4.5 GM/NS 100 ML IV SCH ×2 (05:20)
[2019-10-25] MEDS ORDERED: MAGNESIUM 1 GM/100 ML IVPB 100 ML IV SCH (06:00)
[2019-10-25] MEDS ORDERED: KCL 20 MEQ TAB (K-DUR) PO SCH (06:00)
[2019-10-25] MEDS ORDERED: POTASSIUM CL 10MEQ/50ML IVPB 50 ML IV SCH (06:00)
--- NOTE | 2019-10-25 09:33 | Diagnostic Imaging Report ---
Portable chest. INDICATION: Shortness of breath. Comparison is made with CT examination from the prior day. FINDINGS: There are background interstitial changes present within the the lungs. The patient's low-density patchy infiltrates within both lower lobes are not well delineated by plain radiography. There is no significant effusion. There is no pneumothorax. Heart size is appropriate. There is a right internal jugular central venous line. IMPRESSION: 1. Background interstitial changes within the lungs. The prior groundglass infiltrates within the lower lobes are not well delineated by plain radiography. Dictated by: Dictated on workstation # [id number]
[2019-10-25] MEDS ORDERED: OXYC30TA77 PO (11:12)
[2019-10-25] MEDS ORDERED: OXYC30TA80 PO (11:45)
[2019-10-25] MEDS ORDERED: ACET325T38 PO (11:46)
--- NOTE | 2019-10-25 12:17 | Discharge Summary ---
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 she has had a long-term issues with pain in her right arm. She had previously been on long-acting oxycodone but her insurance would not cover this so her regimen has been changed. She tells me that she has been taking 30 mg of oxycodone up to 4 times a day. She only takes it when she needs the pain and does not take it on a schedule. Her regimen was adjusted to Tylenol scheduled 3 times daily with oxycodone 30 mg as needed 3 times daily. She should follow-up with Dr. Knight within a week to further evaluate and adjust her pain regimen.she was found to have a likely aspiration pneumonitis on her CT though aspiration pneumonia was less likely. She was treated with Zosyn while inpatient but antibiotics were not continued. Labs and Pending Lab Test: Laboratory Tests 10/24/19 13:00: Blood Gas Puncture Site RIGHT RADIAL, Blood Gas Patient Temperature 36.6, Arterial Blood pH 7.28*L, Arterial Blood Partial Pressure CO2 63H, Arterial Blood Partial Pressure O2 37*L, Arterial Blood HCO3 29H, Arterial Blood Total CO2 30.7, Arterial Blood Oxygen Saturation 57L, Arterial Blood Base Excess 2.5, Barber Test POSITIVE, Blood Gas Ventilator Setting NO, Blood Gas Inspired Oxygen 10 L 10/25/19 03:25: White Blood Count 9.5, Red Blood Count 3.69L, Hemoglobin 10.2L, Hematocrit 33L, Mean Corpuscular Volume 89, Mean Corpuscular Hemoglobin 28, Mean Corpuscular Hemoglobin Concent 31L, Red Cell Distribution Width 14.2, Platelet Count 245, Mean Platelet Volume 10.9H, Neutrophils (%) (Auto) 72, Lymphocytes (%) (Auto) 23, Monocytes (%) (Auto) 5, Eosinophils (%) (Auto) 0, Basophils (%) (Auto) 0, Neutrophils # (Auto) 6.8, Lymphocytes # (Auto) 2.2, Monocytes # (Auto) 0.5, Eosinophils # (Auto) 0.0, Basophils # (Auto) 0.0, Sodium Level 144, Potassium Level 4.2, Chloride Level 109H, Carbon Dioxide Level 26, Anion Gap 9, Blood Urea Nitrogen 23H, Creatinine 1.12, Estimat Glomerular Filtration Rate 48, BUN/Creatinine Ratio 21, Glucose Level 100, Calcium Level 8.0L, Phosphorus Level 3.5, Magnesium Level 1.7 Microbiology 10/24/19 Influenza Types A,B Antigen (EBONIE) - Final, Complete Home Meds Active Tylenol (Acetaminophen) 325 Mg Tablet 975 Mg PO TID 30 Days Oxycodone HCl 30 Mg Tablet 30 Mg PO TID PRN 7 Days Metformin HCl 1,000 Mg Tablet 1,000 Mg PO BID Hold for 48 hours Reported Lyrica (Pregabalin) 150 Mg Capsule 150 Mg PO BID Furosemide 20 Mg Tablet 20 Mg PO DAILY Lyrica (Pregabalin) 75 Mg Capsule 75 Mg PO TID Dicyclomine HCl 20 Mg Tablet 10 Mg PO BID TAKE 1/2 OF 20MG TAB Lisinopril 5 Mg Tablet 5 Mg PO DAILY Levemir Flextouch (Insulin Detemir) 100 Unit/1 Ml Insuln.pen 35 Units SQ DAILY Ropinirole HCl 1 Mg Tablet 1 Mg PO HS Polyethylene Glycol 3350 17 Gm Powd.pack 17 Gm PO DAILY PRN Advair 250-50 Diskus (Fluticasone/Salmeterol) 1 Each Blst.w.dev 1 Puff IH BID Combivent Respimat Inhal [place] (Albuterol/Ipratropium) 4 Gm Aero 1 Puff IH QID Fluticasone Propionate 16 Gm [place].susp 2 Sprays NSEACH DAILY Omeprazole 20 Mg Capsule.dr 20 Mg PO BID Montelukast Sodium 10 Mg Tablet 10 Mg PO DAILY@1400 Aspirin EC (Aspirin) 81 Mg Tablet.dr 81 Mg PO DAILY@1400 Ranitidine HCl 150 Mg Tablet 150 Mg PO BID Atorvastatin Calcium 10 Mg Tablet 10 Mg PO HS Klor-Con M10 (Potassium Chloride) 10 Meq Tab.er.prt 10 Meq PO TID Clonazepam 0.5 Mg Tablet 0.5 Mg PO Q12H PRN Metoclopramide HCl 10 Mg Tablet 10 Mg PO QID PRN Cyclobenzaprine HCl 10 Mg Tablet 10 Mg PO TID PRN Quetiapine Fumarate 50 Mg Tablet 50 Mg PO HS Alprazolam 1 Mg Tablet 1 Mg PO TID Topiramate 50 Mg Tablet 50 Mg PO DAILY Meclizine HCl 25 Mg Tablet 25 Mg PO TID PRN Assessment/Pt Instructions take medications as prescribed. Decrease your oxycodone to 3 times daily as needed. Begin taking Tylenol 3 times daily scheduled. Follow-up with Dr. Knight for further adjustments of your pain regimen. Discharge Instructions Discharge Diet: No Restrictions Activity as Tolerated: Yes Discharge Physical Examination General Appearance: Alert, Oriented X3, Cooperative, No Acute Distress HEENT: Atraumatic, PERRLA, EOMI, Mucous Memb Moist/[place] Respiratory: Clear to Auscultation, Normal Air Movement Cardiovascular: Regular Rate, Normal S1, Normal S2, No Murmurs Abdominal: Normal Bowel Sounds, Soft, No Tenderness Extremities: No Edema, No Tenderness/Swelling Skin: No Rashes, No Significant Lesion Neuro: Normal Speech Psych/Mental Status: Mental Status NL, Mood NL Allergies: Coded Allergies: Iodinated Contrast Media (Verified Allergy, Unknown, 08/25/13) linezolid (Verified Allergy, Unknown, 08/25/13) Copy Copies To 1: ADDY KNIGHT DO Discharge Summary Date of Admission Oct 24, 2019 at 14:18 Date of Discharge Discharge Date: Oct 25, 2019 Discharge Time: 12:17 Admission Diagnosis accidental opioid overdose Consults/Procedures Consulations pulmonology Discharge Diagnosis (1) Opiate overdose Status: Acute Qualifiers: Qualified Codes: T40.601A - Poisoning by unspecified narcotics, accidental (unintentional), initial encounter (2) Aspiration pneumonitis Status: Acute Clinical Quality Measures DVT/VTE Risk/Contraindication: Risk Factor Score Per Nursin RFS Level Per Nursing on Admit: 2=Moderate LUKAS NUNES MD Oct 25, 2019 12:17 POS
== END 2019-10-25 12:05 | disposition home or self-care (01) | DRG 917 ==
LOC: EDUNIT# 11:15 → ER 11:17 → ICU 14:18
PROVIDERS: ADMIT Internal Medicine; ATTEND Internal Medicine
DX: T40.601A Poisoning by unspecified narcotics, accidental (unintentional), initial encounter (principal); J69.0 Pneumonitis due to inhalation of food and vomit; R40.2222 Coma scale, best verbal response, incomprehensible words, at arrival to emergency department; J44.9 Chronic obstructive pulmonary disease, unspecified; E78.00 Pure hypercholesterolemia, unspecified; I11.0 Hypertensive heart disease with heart failure; I50.9 Heart failure, unspecified; G43.909 Migraine, unspecified, not intractable, without status migrainosus; E11.40 Type 2 diabetes mellitus with diabetic neuropathy, unspecified; F41.9 Anxiety disorder, unspecified; F32.9 Major depressive disorder, single episode, unspecified; M54.9 Dorsalgia, unspecified; G89.29 Other chronic pain; R40.2132 Coma scale, eyes open, to sound, at arrival to emergency department; R40.2352 Coma scale, best motor response, localizes pain, at arrival to emergency department; Z79.4 Long term (current) use of insulin; Z90.710 Acquired absence of both cervix and uterus; Z79.82 Long term (current) use of aspirin
CPT/HCPCS: 36415; 36680; 51702; 70450; 71045; 71250; 74176; 80048; 80053; 80306; 80320; 81000; 82805; 83605; 83690; 83735; 83880; 84100; 84145; 84484; 85007; 85025; 85027; 87040; 87081; 87804; 94640

== ENCOUNTER → 2019-11-03 | Outpatient (CLI) | payer MEDICARE, MEDICAID ==
[~2019-11-03] MED LIST changes: +ACET325T38 PO; +OXYC30TA77 PO; +OXYC30TA80 PO
--- NOTE | 2019-11-03 08:55 | Diagnostic Imaging Report ---
Clinical indication: Patient fell and now has cervical spine pain. Exam: MRI of the cervical spine performed without IV contrast. Sequences include sagittal T1, sagittal T2, sagittal stir, and axial T2. Comparison: None. Findings: There is no acute cervical spine fracture or dislocation. Limited visualization of the posterior fossa shows increased T2 signal within the kellie which may be related to age-related brain parenchymal changes. Cervical spinal cord has normal cord caliber with no abnormal signal. There is no significant paraspinal soft tissue abnormality. There are Modic type II degenerative signal changes involving the C3-C4 and C6-C7 levels. There are hypertrophic spurs and facet arthropathy seen throughout the cervical spine. C1-C2: There are degenerative spurs at the atlantoodontoid interval anteriorly. There is no significant central canal narrowing. C2-C3: There is no significant central spinal canal or neural foramen narrowing. C3-C4: There is ouns-oa-cagttzui left facet arthropathy. There are bilateral uncinate spurs and posterior disc osteophyte complex. There is severe left neural foramen narrowing and umupuzrh-ky-[id number] right neural foramen narrowing. There is no significant central canal narrowing. C4-C5: There is diffuse is bulge and chronic Schmorl's node involving the inferior C4 endplate. There is moderate right facet arthropathy and mild left facet arthropathy. There is kgud-ls-ajvxmsiu central canal narrowing, and severe bilateral neural foramen narrowing. C5-C6: There is mild left facet arthropathy. There is no significant central canal or neural foramen narrowing. C6-C7: There is a diffuse disc bulge with mild loss of intervertebral disc height and bilateral uncinate spurs. There is mild facet arthropathy and ligamentum flavum buckling. There is moderate central canal stenosis and severe bilateral neural foramen narrowing. C7-T1: There is degenerative grade I anterolisthesis of C7 on T1. There is no significant central spinal canal or neural foramen narrowing. IMPRESSION: There is multilevel cervical spine degenerative disc disease, as described in detail above. Dictated by: Dictated on workstation # [id number]
== END ==
LOC: RAD 07:54
PROVIDERS: ATTEND Nurse Practitioner
DX: M43.13 Spondylolisthesis, cervicothoracic region (principal); M50.11 Cervical disc disorder with radiculopathy, high cervical region; M50.121 Cervical disc disorder at C4-C5 level with radiculopathy; M48.02 Spinal stenosis, cervical region
CPT/HCPCS: 72141

== ENCOUNTER 2019-12-08 08:40 | Outpatient (CLI) | payer MEDICARE, MEDICAID ==
[~2019-12-08] VITALS: Ht 157 cm; Wt 76.0 kg
[~2019-12-08 08:40] MED LIST changes: -CLON0.5T13 PO; +CLON0.5T4 PO; +OMEP-280 PO; -OMEP20CA13 PO
== END 2019-12-08 10:00 | disposition home or self-care (01) ==
LOC: PREOP 08:40
PROVIDERS: ATTEND Orthopaedic Surgery
DX: Z01.818 Encounter for other preprocedural examination (principal)

== ENCOUNTER 2019-12-10 10:23 | Day surgery (SDC) | payer MEDICARE, MEDICAID ==
--- NOTE | 2019-12-08 11:54 | HISTORY AND PHYSICAL ---
DATE OF SERVICE: DATE OF SURGERY: 12/10/2019. This will be for outpatient surgery on 12/10/2019 for right carpal tunnel release and right cubital tunnel release. HISTORY: The patient is a 69-year-old right hand dominant female with complaints of right upper extremity pain and discomfort with tingling sensation from the elbow to the wrist and hand. She underwent an EMG nerve conduction study, which revealed evidence of a right carpal and cubital tunnel syndrome. She reports progressive symptoms with interference with activities of daily living. Because of this, she elected to proceed with surgical intervention. REVIEW OF SYSTEMS: No chest pain, no shortness of breath, no dysuria. PAST MEDICAL HISTORY: Diabetes, COPD, congestive heart failure, fibromyalgia, peripheral neuropathy, coronary artery disease, hypoxemia, chest pain. PAST SURGICAL HISTORY: Coronary stent, cholecystectomy, hysterectomy, appendectomy, abdominal herniorrhaphy, abdominal adhesions. SOCIAL HISTORY: The patient denies alcohol, tobacco use. FAMILY HISTORY: Significant for ischemic heart disease, hypertension, diabetes. PRIMARY CARE PROVIDER: Dr. Knight. MEDICATIONS: Reglan, potassium, omeprazole, Combivent, meclizine, Dicyclomine, metformin, alprazolam, Apidra, Advair, Singulair, Zantac, aspirin, Plavix, Zyrtec, furosemide, Lyrica, oxycodone, ranolazine, Lantus, albuterol, cyanocobalamin, dicyclomine. 0 ALLERGIES: LINEZOLID. SOCIAL HISTORY: The patient is a current every day smoker. PHYSICAL EXAMINATION: GENERAL: The patient is well developed, well nourished, in no acute distress. HEENT: Normocephalic, atraumatic. Pupils are equal, round and reactive to light. Oropharynx is clear. NECK: Supple, no lymphadenopathy. LUNGS: Clear to auscultation bilaterally. HEART: Regular rate and rhythm. ABDOMEN: Soft, nontender, nondistended. EXTREMITIES: Right upper extremity . Positive Phalen's test, positive Tinel's at both carpal and cubital tunnel with positive elbow flexion test. Positive Phalen's maneuver. She has decreased sensation in ulnar and median distribution. IMPRESSION: Right carpal and cubital tunnel syndromes symptomatic, unresponsive to conservative measures. PLAN: Right carpal and cubital tunnel releases. The risks, benefits, options, ramifications and recovery were discussed at length with the patient. She understands and wishes to proceed. Job ID: [id number] DocumentID: [id number] Dictated Date: 12/08/2019 11:09:45 Banquet Prep Cook Date: 12/08/2019 11:54:09 Dictated By: RAY MACKEY MD
[2019-12-10] VITALS (10 sets, daily range): BP systolic 116–147; BP diastolic 57–87
[~2019-12-10] VITALS: Ht 157 cm; Wt 76.0 kg
--- NOTE | 2019-12-10 10:30 | NUR ---
PATIENT DID NOT WEAR HER O2 WHEN SHE CAME IN TODAY FOR SURGERY. O2 SAT 82% ON ARRIVAL. O2 AT 3 LITER'S APPLIED. PATIENT STATES, "I WEAR IT AT HOME BUT IT'S TOO HEAVY TO TAKE WITH ME."
[2019-12-10] MEDS ORDERED: LACTATED RINGERS 1,000 ML IV PRN (10:33)
[2019-12-10] MEDS ORDERED: ceFAZolin INJECTION 1,000 MG in WATER (STERILE) FOR INJECTION 10 ML IV ONE (10:45)
[2019-12-10] MEDS ORDERED: ceFAZolin INJECTION 1,000 MG ONE (10:52)
[2019-12-10] MEDS ORDERED: WATER (STERILE) FOR INJECTION 10 ML ONE (10:52)
--- NOTE | 2019-12-10 11:02 | Progress Note-Pre Operative ---
Pre-Operative Progress Note H&P Reviewed The H&P was reviewed, patient examined and no changes noted. Date Seen by Provider: Dec 10, 2019 Time Seen by Provider: 11: Date H&P Reviewed: Dec 10, 2019 Time H&P Reviewed: 11: Pre-Operative Diagnosis: right carpal and cubital tunnel syndrome RAY MACKEY MD Dec 10, 2019 11:02
--- NOTE | 2019-12-10 11:03 | Progress Note-Post Operative ---
Post-Operative Progess Note Surgeon (s)/Hoop Coiler (s) Surgeon RAY MACKEY MD Hoop Coiler: Rick Maldonado Pre-Operative Diagnosis right carpal and cubital tunnel syndrome Post-Operative Diagnosis right carpal and cubital tunnel syndrome Procedure & Operative Findings Date of Procedure 12/10/19 Procedure Performed/Findings right ulnar nerve transposition and carpal tunnel releases Anesthesia Type GETA Estimated Blood Loss Estimated blood loss (mL): minimal Specimens/Packing Specimens Removed none Packing: none RAY MACKEY MD Dec 10, 2019 11:03
[2019-12-10] MEDS ORDERED: HYDROcodone/APAP 7.5 MG/325 MG (LORTAB, LORCET PLUS) TABLET PO PRN (11:30)
[2019-12-10] MEDS ORDERED: LIDOCAINE 1% INJ 20 ML 20 ML VIAL ONE (11:34)
[2019-12-10] MEDS ORDERED: BUPIVACAINE 0.5% 30 ML (SENSORCAINE) VIAL ONE (11:34)
[2019-12-10] MEDS ORDERED: proPOfol 200 MG/20 ML (DIPRIVAN) VIAL IV ONE (11:52)
[2019-12-10] MEDS ORDERED: SEVOFLURANE (ULTANE) 15 ML INHAL SOLN ONE ×2 (11:52→13:11)
[2019-12-10] MEDS ORDERED: MIDAZOLAM 2 MG/2 ML (VERSED) VIAL ONE (11:52)
[2019-12-10] MEDS ORDERED: LIDOCAINE PF 2% 5 ML (XYLOCAINE) VIAL ONE (11:52)
[2019-12-10] MEDS ORDERED: fentaNYL INJECTION 100 MCG/2 ML AMP ONE (11:52)
[2019-12-10] MEDS ORDERED: PHENYLEPHRINE 100 MCG/ML 10 ML (ANESTHESIA) SYR ONE (12:34)
[2019-12-10] MEDS ORDERED: ONDANSETRON 4 MG/2 ML (SDV) Z0FRAN ONE ×2 (13:09→13:32)
[2019-12-10] MEDS ORDERED: morphine INJ 10 MG/ML 1ML (SYR OR VIAL) ONE (13:24)
[2019-12-10] MEDS ORDERED: ONDANSETRON 4 MG/2 ML (SDV) Z0FRAN IVP PRN ×2 (13:30)
[2019-12-10] MEDS ORDERED: morphine INJ 10 MG/ML 1ML (SYR OR VIAL) IVP ONE ×2 (13:30)
[2019-12-10] MEDS ORDERED: HYDR-3816 PO (13:44)
[2019-12-10] MEDS ORDERED: HEParin (CENTRAL IV FLUSH) 500 UNIT/5 ML SYR ONE (13:52)
--- NOTE | 2019-12-10 15:00 | Anesthesia-General Post-Op ---
General Patient Condition Mental Status/LOC: Same as Preop Cardiovascular: Satisfactory Nausea/Vomiting: Absent Respiratory: Satisfactory Pain: Controlled Complications: Absent Post Op Complications Complications None Follow Up Care/Instructions Patient Instructions None needed. Anesthesia/Patient Condition Patient Condition Patient is doing well, no complaints, stable vital signs, no apparent adverse anesthesia problems. MARGY PINTO DO Dec 10, 2019 15:00
--- NOTE | 2019-12-10 22:06 | OPERATIVE REPORT ---
DATE OF SERVICE: PREOPERATIVE DIAGNOSES: 1. Right cubital tunnel syndrome. 2. Right carpal tunnel syndrome. POSTOPERATIVE DIAGNOSES: 1. Right cubital tunnel syndrome. 2. Right carpal tunnel syndrome. PROCEDURES: 1. Right ulnar nerve transposition. 2. Right carpal tunnel release. SURGEON: Andres Mackey MD GRADING CLERK: Rick Maldonado, who assisted throughout the procedure and closed the incisions. ANESTHESIA: General endotracheal by Dr. Gaytan. TOURNIQUET TIME: 17 minutes at 250 mmHg. ESTIMATED BLOOD LOSS: Minimal. DRAINS: None. COMPLICATIONS: None. POSTOPERATIVE PLAN: Routine protocol. The patient was transferred to the recovery room awake and in stable condition. STATEMENT OF MEDICAL NECESSITY: The patient is a 69-year-old right hand dominant female with complaints of right hand pain and paresthesias. She had a markedly positive Tinel's and carpal tunnel with positive Phalen's maneuver, positive elbow flexion test with an EMG, which revealed evidence of carpal and cubital tunnel syndromes. She tried rest, activity modifications and anti-inflammatories without relief and due to functional impairment and failure to improve with conservative measures, the patient elected to proceed with surgical intervention. DESCRIPTION OF PROCEDURE: After risks and benefits of procedure were discussed and questions were answered, an informed consent was signed and placed on chart. The operative site was confirmed in the preoperative holding area initialed by the surgeon. The patient was then transferred to the operating room and after adequate levels of general endotracheal anesthetic were obtained, a timeout was called, confirming the operative site. The right upper extremity was prepped and draped in the usual sterile fashion with arm elevated, tourniquet was inflated to 250 mmHg. An L-shaped incision was made posterior to the medial epicondyle and soft tissues were carefully dissected. The ulnar nerve was exposed proximal to the medial epicondyle and dissected to 0.8 cm proximally. This was then dissected through the cubital tunnel and into the flexor/pronator mass. The elbow was taken through range of motion and subluxation of the nerve was noted; therefore, transposition was performed. A fascial was developed off the posterior aspect of the medial epicondyle. An 0 Vicryl was used to create a sling with the ulnar nerve transposed anteriorly. A portion of the flexor retinaculum and the intermuscular septum proximally were resected at the transposed site. The sling was carefully sewn in order to prevent any entrapment of the nerve. The elbow was taken through range of motion. There was normal excursion of the nerve with no impingement noted. An incision was then made in line with radial border of the ring finger overlying the transverse carpal ligament in the right hand. The underlying soft tissues were sharply dissected exposing the transverse carpal ligament, which was then incised by pushing through with the scalpel blade. Distally, this was confirmed, fully released under direct visualization. Proximally, the transverse carpal ligament was spread above and below with dissection scissors and then opened with slightly open scissor edges. This was confirmed fully released with a [place]. The tourniquet was deflated for a total time of 17 minutes. Pressure was used for hemostasis in both wounds. Both wounds were copiously irrigated, 3-0 Vicryl was used to reapproximate the subcutaneous layer at the elbow and both skin incisions were closed with 4-0 nylon in running alternating horizontal mattress fashion. Incisions were infiltrated with plain Marcaine and soft dressings and wrist brace were applied. The patient was transferred to the recovery room awake and in stable condition. Job ID: [id number] DocumentID: [id number] Dictated Date: 12/10/2019 13:22:41 Avionics Repair Technician Date: 12/10/2019 21:21:14 Dictated By: ANDRES MACKEY MD
== END 2019-12-10 15:30 | disposition home or self-care (01) ==
LOC: SDC 10:23
PROVIDERS: ATTEND Orthopaedic Surgery
DX: G56.01 Carpal tunnel syndrome, right upper limb (principal); G56.21 Lesion of ulnar nerve, right upper limb; J44.9 Chronic obstructive pulmonary disease, unspecified; I50.9 Heart failure, unspecified; I25.10 Atherosclerotic heart disease of native coronary artery without angina pectoris; M79.7 Fibromyalgia; G43.909 Migraine, unspecified, not intractable, without status migrainosus; E66.9 Obesity, unspecified; E11.40 Type 2 diabetes mellitus with diabetic neuropathy, unspecified; F17.210 Nicotine dependence, cigarettes, uncomplicated; Z90.710 Acquired absence of both cervix and uterus; Z90.89 Acquired absence of other organs; Z79.84 Long term (current) use of oral hypoglycemic drugs; Z90.49 Acquired absence of other specified parts of digestive tract; Z79.899 Other long term (current) drug therapy; Z79.82 Long term (current) use of aspirin; Z88.8 Allergy status to other drugs, medicaments and biological substances; Z91.041 Radiographic dye allergy status; Z68.30 Body mass index [BMI] 30.0-30.9, adult; Z82.49 Family history of ischemic heart disease and other diseases of the circulatory system; Z83.3 Family history of diabetes mellitus
CPT/HCPCS: 82962; 87081

== ENCOUNTER 2019-12-19 18:12 | Inpatient (IN) | payer MEDICARE, MEDICAID ==
[~2019-12-19] VITALS: Ht 157 cm; Wt 86.6 kg
[~2019-12-19 18:12] MED LIST changes: +HYDR-3816 PO
[2019-12-19] MEDS ORDERED: RT-ALBUTEROL/IPRATROPIUM 3 ML (DUONEB) VIAL ONE (18:20)
[2019-12-19] MEDS ORDERED: NS IV 500 ML 500 ML IV ONE (18:24)
[2019-12-19] MEDS ORDERED: NS IV 1000 ML 1,000 ML IV SCH (18:24)
[2019-12-19] MEDS ORDERED: VANCOMYCIN INJECTION 1,000 MG in NS (IVPB) 250 ML IV ONE (18:30)
[2019-12-19] MEDS ORDERED: CEFEPIME INJECTION 1,000 MG in WATER (STERILE) FOR INJECTION 10 ML IV ONE (18:30)
[2019-12-19] MEDS ORDERED: RT-ALBUTEROL/IPRATROPIUM 3 ML (DUONEB) VIAL INH ONE (18:30)
--- NOTE | 2019-12-19 18:30 | ED Respiratory ---
General Chief Complaint: Respiratory Problems Stated Complaint: SOB Nursing Triage Note: states sob for " awhile" pt hx of COPD Source: patient, other Exam Limitations: no limitations History of Present Illness Date Seen by Provider: Dec 19, 2019 Time Seen by Provider: 18:14 Initial Comments Patient present to ER by private conveyance with her significant other and chief complaint of 3-4 days for slowly worsening shortness of breath with occasional cough. She has a strong history of COPD. She has increased somnolence. She is post to be on oxygen at 3 L at all times however her significant other says she does not always wear it. She does not have a history of using CPAP or BiPAP sl eep. She follows with Dr. Dutta, pulmonology and Dr. Knight for primary care. She has been on steroids a few weeks ago. She has not been on antibiotics recently. She doesn't history of multiple pneumonias. She has exertional dyspnea but no chest pain. She smokes one to 2 packs of cigarettes per day. Allergies and Home Medications Allergies Coded Allergies: Iodinated Contrast Media (Verified Allergy, Mild, HIVES, 12/08/19) linezolid (Verified Allergy, Mild, HIVE, 12/08/19) Home Medications Acetaminophen 325 Mg Tablet, 975 MG PO TID Prescribed by: LUKAS NUNES on 10/25/19 1146 Albuterol/Ipratropium 4 Gm Aero, 1 PUFF IH QID, (Reported) Alprazolam 1 Mg Tablet, 1 MG PO TID, (Reported) Aspirin 81 Mg Tablet.dr, 81 MG PO DAILY@1400, (Reported) Atorvastatin Calcium 10 Mg Tablet, 10 MG PO HS, (Reported) Clonazepam 0.5 Mg Tablet, 0.5 MG PO Q12H PRN for ANXIETY, (Reported) Cyclobenzaprine HCl 10 Mg Tablet, 10 MG PO TID PRN for MUSCLE SPASMS, (Reported) Dicyclomine HCl 20 Mg Tablet, 10 MG PO BID, (Reported) TAKE 1/2 OF 20MG TAB Fluticasone Propionate 16 Gm [place].susp, 2 SPRAYS NSEACH DAILY, (Reported) Fluticasone/Salmeterol 1 Each Blst.w.dev, 1 PUFF IH BID, (Reported) Furosemide 20 Mg Tablet, 20 MG PO DAILY, (Reported) Hydrocodone/Acetaminophen 1 Each Tablet, 1 TAB PO Q4H Prescribed by: ANDERSON DAMIAN on 12/10/19 1344 Insulin Detemir 100 Unit/1 Ml Insuln.pen, 10 UNITS SQ DAILY, (Reported) Lisinopril 5 Mg Tablet, 5 MG PO DAILY, (Reported) Meclizine HCl 25 Mg Tablet, 25 MG PO TID PRN for DIZZINESS, (Reported) Metformin HCl 1,000 Mg Tablet, 1,000 MG PO BID Hold for 48 hours Prescribed by: JUAN SMITH on 03/19/19 0839 Metoclopramide HCl 10 Mg Tablet, 10 MG PO QID PRN for STOMACH UPSET, (Reported) Montelukast Sodium 10 Mg Tablet, 10 MG PO DAILY@1400, (Reported) Omeprazole 20 Mg Capsule.dr, 20 MG PO BID, (Reported) Polyethylene Glycol 3350 17 Gm Powd.pack, 17 GM PO DAILY PRN for CONSTIPATION- 2ND LINE, (Reported) Potassium Chloride 10 Meq Tab.er.prt, 10 MEQ PO TID, (Reported) Pregabalin 75 Mg Capsule, 75 MG PO TID, (Reported) Pregabalin 150 Mg Capsule, 150 MG PO BID, (Reported) Quetiapine Fumarate 50 Mg Tablet, 50 MG PO HS, (Reported) Ranitidine HCl 150 Mg Tablet, 150 MG PO BID, (Reported) Ropinirole HCl 1 Mg Tablet, 1 MG PO HS, (Reported) Topiramate 50 Mg Tablet, 50 MG PO DAILY, (Reported) Patient Home Medication List Home Medication List Reviewed: Yes Review of Systems Review of Systems Constitutional: No chills, No diaphoresis EENTM: No ear discharge, No ear pain Respiratory: cough, orthopnea, short of breath, wheezing Cardiovascular: No chest pain, No palpitations Gastrointestinal: No abdominal pain, No nausea, No vomiting Genitourinary: No discharge, No dysuria Musculoskeletal: No back pain, No joint pain Skin: No pruritus, No rash Psychiatric/Neurological: Denies Headache, Denies Numbness All Other Systems Reviewed Negative Unless Noted: Yes Past Kuxfvol-Obrger-Qsfzti Hx Patient Social History Alcohol Beverage of Choice: Rum, Whiskey, [place], Vodka Type Used: Cigarettes 2nd Hand Smoke Exposure: Yes Recent Foreign Travel: No Contact w/Someone Who Travel: No Recent Infectious Disease Expo: No Recent Hopitalizations: Yes (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) Immunizations Up To Date Date of Pneumonia Vaccine: Sep 24, 2019 Date of Influenza Vaccine: Sep 24, 2019 Seasonal Allergies Seasonal Allergies: Yes Past Medical History Surgeries: Yes (several exploratomy laparotomies, hernia with mesh, several lysis) Appendectomy, Coronary Stent, Gallbladder, 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, Vascular Surgery Respiratory: Yes (wears 3L NC at all times) Chronic Bronchitis, COPD, Emphysema Currently Using CPAP: No Currently Using BIPAP: No Cardiac: Yes (CHF) Chronic Edema/Swelling, High Cholesterol, Hypertension Neurological: Yes Headaches /Migraines, Neuropathy 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 Disorders: 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 Genitourinary: No Gastrointestinal: Yes (SEVERAL BOWEL OBSTRUCTIONS, chronic abd pain) Obstructive Bowel, Ulcer Musculoskeletal: Yes Arthritis, Fibromyalgia, Chronic Back Pain Endocrine: Yes Diabetes, Non-Insulin dep HEENT: Yes (GLASSES) Loss of Vision: Denies Hearing Impairment: Denies Cancer: No Psychosocial: Yes Anxiety, Depression Integumentary: Yes (CHRONIC ABDOMINAL WOUND--MRSA) Recent Skin Changes Blood Disorders: No Adverse Reaction/Blood Tranf: No (N/A) Family Medical History Colon cancer G8 BROTHER (PANCREATIC) Dementia 19 MOTHER G8 BROTHER Hypertension 19 MOTHER Myocardial infarction G8 BROTHER Physical Exam Vital Signs - First Documented 12/19/19 12/19/19 18:17 18:20 Temp 36.7 Pulse 109 Resp 26 B/P (MAP) 141/66 (91) Pulse Ox 92 O2 Delivery Room Air O2 Flow Rate 3.00 Capillary Refill : Less Than 3 Seconds Height: 5'1.00" Weight: 162lbs. 0.0oz. 73.598891gr; 27.00 BMI Method:Stated General Appearance: WD/WN, moderate distress Eyes: Bilateral Eye Normal Inspection, Bilateral Eye PERRL, Bilateral Eye EOMI HEENT: PERRL/EOMI, normal ENT inspection, pharynx normal Neck: full range of motion, supple, normal inspection Respiratory: respiratory distress, decreased breath sounds, accessory muscle use; No rales; wheezing Cardiovascular: normal peripheral pulses, regular rate, rhythm Gastrointestinal: normal bowel sounds, non tender, soft Extremities: normal range of motion, non-tender, normal capillary refill Neurologic/Psychiatric: alert, normal mood/affect, oriented x 3 Skin: normal color, warm/dry Focused Exam Sepsis Stage: Ruled Out Reason for ruling out sepsis: no evidence of bacterial infection. No influenza. Suspect COPD exacerbation Lactate Level 12/19/19 18:26: Lactic Acid Level 0.60 Lactic Acid Level Laboratory Tests Test 12/19/19 18:26 Lactic Acid Level 0.60 MMOL/L (0.50-2.00) Progress/Results/Core Measures Suspected Sepsis Recent Fever Within 48 Hours: No Infection Criteria Present: None New/Unexplained Altered Menta: No Sepsis Screen: No Definite Risk SIRS Temperature: Pulse: 109 Respiratory Rate: 26 Laboratory Tests 12/19/19 18:26: White Blood Count 9.6 Blood Pressure 141 /66 Mean: 91 12/19/19 18:26: Lactic Acid Level 0.60 Laboratory Tests 12/19/19 18:26: Creatinine 1.63H, INR Comment 1.1, Platelet Count 265, Total Bilirubin 0.4 Results/Orders Lab Results Laboratory Tests Test 12/19/19 18:26 12/19/19 18:30 Range/Units White Blood Count 9.6 4.3-11.0 10^3/uL Red Blood Count 3.69 L 4.35-5.85 10^6/uL Hemoglobin 10.1 L 11.5-16.0 G/DL Hematocrit 32 L 35-52 % Mean Corpuscular Volume 86 80-99 FL Mean Corpuscular Hemoglobin 27 25-34 PG Mean Corpuscular Hemoglobin Concent 32 32-36 G/DL Red Cell Distribution Width 14.9 H 10.0-14.5 % Platelet Count 265 130-400 10^3/uL Mean Platelet Volume 10.2 7.4-10.4 FL Neutrophils (%) (Auto) 75 42-75 % Lymphocytes (%) (Auto) 13 12-44 % Monocytes (%) (Auto) 10 0-12 % Eosinophils (%) (Auto) 2 0-10 % Basophils (%) (Auto) 0 0-10 % Neutrophils # (Auto) 7.2 1.8-7.8 X 10^3 Lymphocytes # (Auto) 1.3 1.0-4.0 X 10^3 Monocytes # (Auto) 1.0 0.0-1.0 X 10^3 Eosinophils # (Auto) 0.1 0.0-0.3 10^3/uL Basophils # (Auto) 0.0 0.0-0.1 10^3/uL Prothrombin Time 14.4 12.2-14.7 SEC INR Comment 1.1 0.8-1.4 Activated Partial Thromboplast Time 49 H 24-35 SEC Sodium Level 135 135-145 MMOL/L Potassium Level 4.9 3.6-5.0 MMOL/L Chloride Level 102 98-107 MMOL/L Carbon Dioxide Level 22 21-32 MMOL/L Anion Gap 11 5-14 MMOL/L Blood Urea Nitrogen 43 H 7-18 MG/DL Creatinine 1.63 H 0.60-1.30 MG/DL Estimat Glomerular Filtration Rate 31 BUN/Creatinine Ratio 26 Glucose Level 130 H 70-105 MG/DL Lactic Acid Level 0.60 0.50-2.00 MMOL/L Calcium Level 9.0 8.5-10.1 MG/DL Corrected Calcium 9.3 8.5-10.1 MG/DL Total Bilirubin 0.4 0.1-1.0 MG/DL Aspartate Amino Transf (AST/SGOT) 66 H 5-34 U/L Alanine Aminotransferase (ALT/SGPT) 20 0-55 U/L Alkaline Phosphatase 92 40-136 U/L Total Protein 7.0 6.4-8.2 GM/DL Albumin 3.6 3.2-4.5 GM/DL Blood Gas Puncture Site LEFT RADIAL Blood Gas Patient Temperature 36.9 Arterial Blood pH 7.28 *L 7.37-7.43 Arterial Blood Partial Pressure CO2 54 H 35-45 MMHG Arterial Blood Partial Pressure O2 66 L 79-93 MMHG Arterial Blood HCO3 24 23-27 MMOL/L Arterial Blood Total CO2 26.1 21.0-31.0 MMOL/L Arterial Blood Oxygen Saturation 89 L 94-100 % Arterial Blood Base Excess -1.5 -2.5-2.5 MMOL/L Barber Test POSITIVE Blood Gas Ventilator Setting NO Blood Gas Inspired Oxygen 3 L Micro Results Microbiology 12/19/19 Influenza Types A,B Antigen (EBONIE) - Final, Complete My Orders Orders - ADRIANO ROBERSON Albuterol/Ipra Inhalation Soln (Duoneb I (12/19/19 18:20) Cbc With Automated Diff (12/19/19 18:24) Comprehensive Metabolic Panel (12/19/19 18:24) Blood Culture (12/19/19 18:24) Sputum Culture (12/19/19 18:24) Urinalysis (12/19/19 18:24) Urine Culture (12/19/19 18:24) Protime With Inr (12/19/19 18:24) Partial Thromboplastin Time (12/19/19 18:24) Chest 1 View, Ap/Pa Only (12/19/19 18:24) Ed Iv/Invasive Line Start (12/19/19 18:24) Ed Iv/Invasive Line Start (12/19/19 18:24) Vital Signs Adult Sepsis Patie Q15M (12/19/19 18:24) O2 (12/19/19 18:24) Remove Rings In Anticipation O (12/19/19 18:24) Lactic Acid Analyzer (12/19/19 18:24) Influenza A And B Antigens (12/19/19 18:24) Ns Iv 1000 Ml (Sodium Chloride 0.9%) (12/19/19 18:24) Vancomycin Injection (Vancomycin Injecti (12/19/19 18:30) Cefepime Injection (Maxipime Injection) (12/19/19 18:30) Albuterol/Ipra Inhalation Soln (Duoneb I (12/19/19 18:30) Svn Small Volume Nebulizer (12/19/19 18:24) Ed Iv/Invasive Line Start (12/19/19 18:24) Ns Iv 500 Ml (Sodium Chloride 0.9%) (12/19/19 18:24) Arterial Blood Gas (12/19/19 18:29) Methylprednisolone Sod Succ (Solu-Medrol (12/19/19 19:30) Medications Given in ED Current Medications Medications Dose Ordered Sig/Alexandru Route Start Time Stop Time Status Last Admin Dose Admin Albuterol/ Ipratropium 3 ml ONCE ONCE INH 12/19/19 18:30 12/19/19 18:31 DC 12/19/19 22:08 3 ML Cefepime HCl 1000 mg/Sterile Water 10 ml @ 200 mls/hr ONCE ONCE IV 12/19/19 18:30 12/19/19 18:32 DC 12/19/19 18:56 200 MLS/HR Methylprednisolone Sodium Succinate 125 mg ONCE ONCE IVP 12/19/19 19:30 12/19/19 19:31 DC 12/19/19 19:40 125 MG Sodium Chloride 500 ml @ 0 mls/hr Q0M ONCE IV 12/19/19 18:24 12/19/19 18:29 DC 12/19/19 19:17 0 MLS/HR Vancomycin HCl 1000 mg/Sodium Chloride 250 ml @ 250 mls/hr ONCE ONCE IV 12/19/19 18:30 12/19/19 19:29 DC 12/19/19 19:17 250 MLS/HR Vital Signs/I&O 12/19/19 12/19/19 12/19/19 18:17 18:20 18:33 Temp 36.7 Pulse 109 Resp 26 B/P (MAP) 141/66 (91) Pulse Ox 92 85 97 O2 Delivery Room Air Nasal Cannula Nasal Cannula O2 Flow Rate 3.00 3.00 Capillary Refill : Less Than 3 Seconds Blood Pressure Mean: 91 Progress Note #1: Time: 18:37 Progress Note Cardiac catheterization March [address] Smith: Small coronary system with mild disease no significant obstructive disease. Normal left ventricular size and systolic function with an EF of 60%. Normal aorta and bilateral runoff. ABG, DuoNeb, Vapotherm, septic workup, influenza swab. Progress Note #2: Time: 19:24 Progress Note The patient endorses feeling better on 40 L of Vapotherm and 45% FiO2. Her oxygen sats are in the mid to upper 90s. Her ABG reveals hypercapnia and hypoxia. We'll give her some steroids. X-ray doesn't show any pneumonia. This appears to be a COPD exacerbation. Diagnostic Imaging Diagonstic Imaging: Xray Plain Films/CT/US/NM/MRI: chest Comments NAME: [facility] REC#: [id number] PT STATUS: REG ER : 1950 PHYSICIAN: ADRIANO ROBERSON MD ADMIT DATE: 12/19/19/ER Signed Date of Exam:12/19/19 CHEST 1 VIEW, AP/PA ONLY Portable chest compared to prior study from 10/25/2019. INDICATION: Shortness of breath. FINDINGS: When compared to the prior examination, there is new increased prominence of the pulmonary vascularity suggesting pulmonary edema. Heart size is enlarged, but unchanged. There may be a small left effusion. There is no pneumothorax. There is no dense alveolar consolidation. IMPRESSION: 1. Interval increase in prominence of the pulmonary vascularity suggesting a component of pulmonary edema. There also appears to be a small left effusion. There is no dense alveolar consolidation. Dictated by: Dictated on workstation # [id number] Dict: 12/19/191911 Trans: 12/19/191919 [id number] Interpreted by: SAGAR HERRERA MD Electronically signed by: SAGAR HERRERA MD 12/19/191919 Reviewed: Reviewed by Me Departure Communication (Admissions) Time/Spoke to Admitting Phy: 19:[address] Nunes and he agrees to admit the patient to the ICU tonight On steroids and without antibiotics for COPD exacerbation. Vapotherm. ABG in the morning. Impression Primary Impression: COPD exacerbation Additional Impression: Acute respiratory failure with hypoxia and hypercapnia Disposition: ADMITTED INPATIENT Condition: Stable Admissions Decision to Admit Reason: Admit from ER (General) Decision to Admit/Date: Dec 19, 2019 Time/Decision to Admit Time: 19:22 Departure-Patient Inst. Referrals: RUDOLPH KNIGHT DO (PCP/Family) Primary Care Physician ADRIANO ROBERSON Dec 19, 2019 18:30
[2019-12-19 18:37] LABS: BASOPHILS % (AUTO) 0 % (0-10); EOSINOPHILS # (AUTO) 0.1 10^3/uL (0.0-0.3); EOSINOPHILS % (AUTO) 2 % (0-10); HEMATOCRIT 32 % (35-52); HEMOGLOBIN 10.1 G/DL (11.5-16.0); LYMPHOCYTES # (AUTO) 1.3 X 10^3 (1.0-4.0); LYMPHOCYTES % (AUTO) 13 % (12-44); MEAN CORPUSCULAR HEMOGLOBIN 27 PG (25-34); MEAN CORPUSCULAR HGB CONC 32 G/DL (32-36); MEAN CORPUSCULAR VOLUME 86 FL (80-99); MEAN PLATELET VOLUME 10.2 FL (7.4-10.4); MONOCYTES % (AUTO) 10 % (0-12); NEUTROPHILS # (AUTO) 7.2 X 10^3 (1.8-7.8); NEUTROPHILS % (AUTO) 75 % (42-75); PLATELET COUNT 265 10^3/uL (130-400); RED CELL DISTRIBUTION WIDTH 14.9 % (10.0-14.5); WHITE BLOOD COUNT 9.6 10^3/uL (4.3-11.0)
[2019-12-19 18:37] LABS: ABG BASE EXCESS -1.5 MMOL/L (-2.5-2.5); ABG OXYGEN SATURATION 89 % (94-100); ABG PCO2 54 MMHG (35-45); ABG PO2 66 MMHG (79-93); ABG TCO2 26.1 MMOL/L (21.0-31.0)
[2019-12-19 18:41] LABS: ABG PH 7.28 (7.37-7.43); ALLENS TEST POSITIVE
[2019-12-19 18:43] LABS: INSPIRED O2 3 L; PATIENT TEMP 36.9; VENTILATOR NO
[2019-12-19 18:56] LABS: ALBUMIN 3.6 GM/DL (3.2-4.5); BILIRUBIN,TOTAL 0.4 MG/DL (0.1-1.0); CREATININE SERUM 1.63 MG/DL (0.60-1.30); POTASSIUM 4.9 MMOL/L (3.6-5.0)
[2019-12-19 19:02] LABS: INR 1.1 (0.8-1.4); PROTHROMBIN TIME PATIENT 14.4 SEC (12.2-14.7)
--- NOTE | 2019-12-19 19:15 | Diagnostic Imaging Report ---
Portable chest compared to prior study from 10/25/2019. INDICATION: Shortness of breath. FINDINGS: When compared to the prior examination, there is new increased prominence of the pulmonary vascularity suggesting pulmonary edema. Heart size is enlarged, but unchanged. There may be a small left effusion. There is no pneumothorax. There is no dense alveolar consolidation. IMPRESSION: 1. Interval increase in prominence of the pulmonary vascularity suggesting a component of pulmonary edema. There also appears to be a small left effusion. There is no dense alveolar consolidation. Dictated by: Dictated on workstation # [id number]
[2019-12-19] MEDS ORDERED: methylPREDNISolone 125 MG (Solu-MEDROL) VIAL IVP ONE (19:30)
[2019-12-19 21:00] VITALS: BP_SYST 111; BP_SYST 119; BP_DIAS 52; BP_DIAS 70
[2019-12-19 21:30] VITALS: BP 109/60
[2019-12-19] MEDS ORDERED: ACETAMINOPHEN 500 MG TAB (TYLENOL) PO PRN (21:45)
[2019-12-19] MEDS ORDERED: ONDANSETRON 4 MG/2 ML (SDV) Z0FRAN IV PRN (21:45)
[2019-12-19 22:00] VITALS: BP 110/50
[2019-12-19] MEDS ORDERED: clonazePAM 0.5 MG (KlonoPIN) TAB PO PRN (22:00)
[2019-12-19] MEDS ORDERED: RT-ALBUTEROL/IPRATROPIUM 3 ML (DUONEB) VIAL INH PRN (22:00)
[2019-12-19] MEDS: RT-ALBUTEROL/IPRATROPIUM 3 ML (DUONEB) VIAL INH SCH (22:07)
[2019-12-19] MEDS: NS IV 1000 ML 1,000 ML IV SCH (22:27)
[2019-12-19 23:00] VITALS: BP 98/47
[2019-12-20] VITALS (24 sets, daily range): BP systolic 109–155; BP diastolic 49–80
[2019-12-20] MEDS: RT-ALBUTEROL/IPRATROPIUM 3 ML (DUONEB) VIAL INH SCH ×5 (01:32→23:15)
[2019-12-20] MEDS ORDERED: methylPREDNISolone 125 MG (Solu-MEDROL) VIAL IVP SCH ×2 (02:00→08:00)
[2019-12-20 04:46] LABS: ABG BASE EXCESS -1.5 MMOL/L (-2.5-2.5); ABG OXYGEN SATURATION 97 % (94-100); ABG PCO2 48 MMHG (35-45); ABG PO2 107 MMHG (79-93); ABG TCO2 25.3 MMOL/L (21.0-31.0); BASOPHILS % (AUTO) 0 % (0-10); EOSINOPHILS % (AUTO) 0 % (0-10); HEMATOCRIT 29 % (35-52); HEMOGLOBIN 9.1 G/DL (11.5-16.0); LYMPHOCYTES # (AUTO) 0.3 X 10^3 (1.0-4.0); LYMPHOCYTES % (AUTO) 4 % (12-44); MEAN CORPUSCULAR HEMOGLOBIN 27 PG (25-34); MEAN CORPUSCULAR HGB CONC 31 G/DL (32-36); MEAN CORPUSCULAR VOLUME 86 FL (80-99); MEAN PLATELET VOLUME 10.3 FL (7.4-10.4); MONOCYTES # (AUTO) 0.1 X 10^3 (0.0-1.0); MONOCYTES % (AUTO) 1 % (0-12); NEUTROPHILS # (AUTO) 7.1 X 10^3 (1.8-7.8); NEUTROPHILS % (AUTO) 95 % (42-75); PLATELET COUNT 245 10^3/uL (130-400); RED CELL DISTRIBUTION WIDTH 14.7 % (10.0-14.5); WHITE BLOOD COUNT 7.4 10^3/uL (4.3-11.0)
[2019-12-20 04:48] LABS: ABG PH 7.32 (7.37-7.43)
[2019-12-20 04:49] LABS: ALLENS TEST YES-POS; INSPIRED O2 45%; PATIENT TEMP 36.6; VENTILATOR NO
[2019-12-20 05:06] LABS: ALBUMIN 3.2 GM/DL (3.2-4.5); BILIRUBIN,TOTAL 0.2 MG/DL (0.1-1.0); CALCIUM 8.5 MG/DL (8.5-10.1); CREATININE SERUM 1.23 MG/DL (0.60-1.30); MAGNESIUM 1.9 MG/DL (1.6-2.4); PHOSPHORUS 5.1 MG/DL (2.3-4.7); POTASSIUM 5.3 MMOL/L (3.6-5.0); TOTAL PROTEIN 6.3 GM/DL (6.4-8.2)
[2019-12-20 05:23] LABS: BAND NEUTROPHILS 5 %; LYMPHOCYTES % (MANUAL) 3 %; MONOCYTES % (MANUAL) 1 %; NEUTROPHILS % (MANUAL) 91 %; RBC MORPH NORMAL
--- NOTE | 2019-12-20 05:24 | Pulmonary Consultation ---
History of Present Illness History of Present Illness Date Seen by Provider: Dec 20, 2019 Time Seen by Provider: 05:19 Date of Admission Allergies and Home Medications Allergies Coded Allergies: Iodinated Contrast Media (Verified Allergy, Mild, HIVES, 12/08/19) linezolid (Verified Allergy, Mild, HIVE, 12/08/19) Home Medications Acetaminophen 325 Mg Tablet, 975 MG PO TID Prescribed by: LUKAS NUNES on 10/25/19 1146 Albuterol/Ipratropium 4 Gm Aero, 1 PUFF IH QID, (Reported) Alprazolam 1 Mg Tablet, 1 MG PO TID, (Reported) Aspirin 81 Mg Tablet.dr, 81 MG PO DAILY@1400, (Reported) Atorvastatin Calcium 10 Mg Tablet, 10 MG PO HS, (Reported) Clonazepam 0.5 Mg Tablet, 0.5 MG PO Q12H PRN for ANXIETY, (Reported) Cyclobenzaprine HCl 10 Mg Tablet, 10 MG PO TID PRN for MUSCLE SPASMS, (Reported) Dicyclomine HCl 20 Mg Tablet, 10 MG PO BID, (Reported) TAKE 1/2 OF 20MG TAB Fluticasone Propionate 16 Gm Kathryn.susp, 2 SPRAYS NSEACH DAILY, (Reported) Fluticasone/Salmeterol 1 Each Blst.w.dev, 1 PUFF IH BID, (Reported) Furosemide 20 Mg Tablet, 20 MG PO DAILY, (Reported) Hydrocodone/Acetaminophen 1 Each Tablet, 1 TAB PO Q4H Prescribed by: ANDERSON DAMIAN on 12/10/19 1344 Insulin Detemir 100 Unit/1 Ml Insuln.pen, 10 UNITS SQ DAILY, (Reported) Lisinopril 5 Mg Tablet, 5 MG PO DAILY, (Reported) Meclizine HCl 25 Mg Tablet, 25 MG PO TID PRN for DIZZINESS, (Reported) Metformin HCl 1,000 Mg Tablet, 1,000 MG PO BID Hold for 48 hours Prescribed by: JUAN LICONA on 03/19/19 0839 Metoclopramide HCl 10 Mg Tablet, 10 MG PO QID PRN for STOMACH UPSET, (Reported) Montelukast Sodium 10 Mg Tablet, 10 MG PO DAILY@1400, (Reported) Omeprazole 20 Mg Capsule.dr, 20 MG PO BID, (Reported) Polyethylene Glycol 3350 17 Gm Powd.pack, 17 GM PO DAILY PRN for CONSTIPATION- 2ND LINE, (Reported) Potassium Chloride 10 Meq Tab.er.prt, 10 MEQ PO TID, (Reported) Pregabalin 75 Mg Capsule, 75 MG PO TID, (Reported) Pregabalin 150 Mg Capsule, 150 MG PO BID, (Reported) Quetiapine Fumarate 50 Mg Tablet, 50 MG PO HS, (Reported) Ranitidine HCl 150 Mg Tablet, 150 MG PO BID, (Reported) Ropinirole HCl 1 Mg Tablet, 1 MG PO HS, (Reported) Topiramate 50 Mg Tablet, 50 MG PO DAILY, (Reported) Past Qrwkftt-Ztuuww-Vuwtdz Hx Patient Social History Alcohol Use: Denies Use Number of Drinks Today: GG Alcohol Beverage of Choice: Rum, Whiskey, [place], Vodka Recreational Drug Use: No Smoking Status: Current Everyday Smoker Type Used: Cigarettes 2nd Hand Smoke Exposure: Yes Recent Foreign Travel: No Contact w/Someone Who Travel: No Recent Infectious Disease Expo: No Recent Hopitalizations: Yes (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) Physical Abuse: No Sexual Abuse: No Mistreated: No Fear: No Immunizations Up To Date Date of Pneumonia Vaccine: Sep 16, 2019 Date of Influenza Vaccine: Sep 15, 2020 Seasonal Allergies Seasonal Allergies: Yes Past Medical History Surgeries: Yes (several exploratomy laparotomies, hernia with mesh, several lysis) Appendectomy, Coronary Stent, Gallbladder, 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, Vascular Surgery Respiratory: Yes (wears 3L NC at all times) Chronic Bronchitis, COPD, Emphysema Currently Using CPAP: No Currently Using BIPAP: No Cardiac: Yes (CHF) Chronic Edema/Swelling, High Cholesterol, Hypertension Neurological: Yes Headaches /Migraines, Neuropathy 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 Disorders: No 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[employer]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 History: 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 Genitourinary: No Gastrointestinal: Yes (SEVERAL BOWEL OBSTRUCTIONS, chronic abd pain) Obstructive Bowel, Ulcer Musculoskeletal: Yes Arthritis, Fibromyalgia, Chronic Back Pain Endocrine: Yes Diabetes, Non-Insulin dep HEENT: Yes (GLASSES) Loss of Vision: Denies Hearing Impairment: Denies Cancer: No Psychosocial: Yes Anxiety, Depression Integumentary: Yes (CHRONIC ABDOMINAL WOUND--MRSA) Recent Skin Changes Blood Disorders: No Adverse Reaction/Blood Tranf: No (N/A) Family Medical History Colon cancer G8 BROTHER (PANCREATIC) Dementia 19 MOTHER G8 BROTHER Hypertension 19 MOTHER Myocardial infarction G8 BROTHER Sepsis Event Evaluation Height, Weight, BMI Height: 5'1.00" Weight: 162lbs. 0.0oz. 73.178127bn; 27.00 BMI Method:Stated Exam Exam Vital Signs Date Time Temp Pulse Resp B/P (MAP) Pulse Ox O2 Delivery O2 Flow Rate FiO2 12/20/19 05:00 79 16 119/59 (79) 95 Vapotherm 30.00 45.00 12/20/19 04:00 82 19 116/55 (75) 95 Vapotherm 30.00 45.00 12/20/19 04:00 36.6 12/20/19 04:00 Vapotherm 12/20/19 03:00 87 12 111/52 (71) 97 Vapotherm 30.00 45.00 12/20/19 02:00 85 19 113/50 (71) 95 Vapotherm 30.00 45.00 12/20/19 01:36 Vapotherm 30.00 45.00 12/20/19 01:32 98 Vapotherm 30.00 45 12/20/19 01:00 80 17 116/74 (88) 100 Vapotherm 40.00 65.00 12/20/19 01:00 80 12/20/19 00:00 74 19 116/61 (79) 94 Vapotherm 40.00 65.00 12/20/19 00:00 Vapotherm 12/19/19 23:32 Vapotherm 40.00 65.00 12/19/19 23:00 74 17 98/47 (64) 91 Vapotherm 36.00 45.00 12/19/19 22:25 Vapotherm 36.00 45.00 12/19/19 22:07 92 Vapotherm 36.00 65 12/19/19 22:00 78 17 110/50 (70) 90 Vapotherm 25.00 40.00 12/19/19 21:30 81 14 109/60 (76) 92 Vapotherm 25.00 40.00 12/19/19 21:06 79 12/19/19 21:03 94 Vapotherm 25.00 40 12/19/19 21:00 36.8 85 20 119/70 (86) 93 Vapotherm 25.00 40.00 12/19/19 21:00 36.0 76 92 60 12/19/19 20:35 36.8 82 18 121/59 94 Vapotherm 40.00 12/19/19 18:33 97 Nasal Cannula 3.00 12/19/19 18:20 85 Nasal Cannula 3.00 12/19/19 18:17 36.7 109 26 141/66 (91) 92 Room Air I & O 12/20/19 07:00 Intake Total 1260 ml Output Total 600 ml Balance 660 ml Height & Weight Height: 5'1.00" Weight: 162lbs. 0.0oz. 73.624413sz; 27.00 BMI Method:Stated Capillary Refill: Less Than 3 Seconds Gastrointestinal: normal bowel sounds, non tender, soft Results Lab Laboratory Tests 12/19/19 18:26 12/20/19 04:00 Assessment/Plan Assessment/Plan Acute on chronic respiratory failure with acute respiratory acidosis -C02 on admission is 54 -Pt will benefit from home vent to mask -start BiPAP QHS and PRN -Repeat ABG later today COPDAE -Solumedrol -Currently requiring Vapotherm -DuoNebs Q 4 add advair -CXR reviewed -Check BNP Hyperkalemia -Monitor -Repeat labs at 11 QING TAO DO Dec 20, 2019 05:23
[2019-12-20] MEDS: ENOXAPARIN 40 MG/0.4 ML (LOVENOX) SYR SC SCH (06:16)
[2019-12-20] MEDS: POTASSIUM CL 10MEQ/50ML IVPB 50 ML IV SCH (06:17)
[2019-12-20] MEDS: inSUlin ASPART (NovoLOG) 1 UNIT/0.01 ML (CHARGE PER UNIT) SC SCH ×4 (06:17→20:41)
[2019-12-20] MEDS: FUROSEMIDE 20 MG (LASIX) TAB PO SCH (06:17)
[2019-12-20] MEDS: MAGNESIUM 1 GM/100 ML IVPB 100 ML IV SCH (06:18)
[2019-12-20] MEDS: KCL 20 MEQ TAB (K-DUR) PO SCH (06:18)
[2019-12-20] MEDS: toPIRamate 25 MG (TOPAMAX) TAB PO SCH (08:33)
[2019-12-20] MEDS: ASPIRIN 81 MG CHEW (CHILDREN'S ASA) PO SCH (08:33)
[2019-12-20] MEDS: PREGABALIN 150 MG (LYRICA) CAPSULE PO SCH ×3 (08:34→20:36)
[2019-12-20] MEDS: PANTOPRAZOLE 40 MG (PROTONIX) TAB PO SCH (08:36)
[2019-12-20] MEDS: NS IV 1000 ML 1,000 ML IV SCH ×2 (08:36→19:34)
--- NOTE | 2019-12-20 08:58 | Diagnostic Imaging Report ---
INDICATION: Respiratory failure. FINDINGS: Portable chest shows the heart size and vascularity to be upper normal. There has been near complete clearing of the left perihilar infiltrate since 12/19/2019. There may be a small left-sided effusion. There is no pneumothorax. IMPRESSION: Improving chest which probably represents improving edema. Dictated by: Dictated on workstation # [id number]
--- NOTE | 2019-12-20 09:22 | NUR ---
Jazz RT notified at this time of sats in mid 80's. This RN started PRN duoneb breathing treatment. Patient vapotherm changed to 20L 50%. patient saturations 92-94%, mildly short of air after getting back to bed from commode. Lucinda RN bedside nurse in room at this time.
--- NOTE | 2019-12-20 12:20 | History & Physical-Hospitalist ---
History of Present Illness HPI/Chief Complaint Vira Irizarry 69-year-old female with past medical history of COPD on chronic oxygen, diabetes, GERD, who presented with shortness of breath. She also reports having a cough with sputum production. She denies any fevers or chills. She denies any chest pain. She denies any orthopnea or PND. She denies any worsening leg swelling. She reports that she does not always wear her oxygen. She does not use a CPAP or BiPAP. She denies any abdominal pain, nausea, vomiting, or diarrhea. She denies any dysuria. She is a current half pack a day smoker. Source: patient Exam Limitations: no limitations Date Seen 12/20/19 Time Seen by a Provider: 08:45 Attending Physician Lukas Nunes MD PCP Addy Knight DO Referring Physician Date of Admission Dec 19, 2019 at 19:35 Home Medications & Allergies Home Medications Reviewed patient Home Medication Reconciliation performed by pharmacy medication reconciliations oxygen equipment technician and/or nursing. Patients Allergies have been reviewed. Allergies Allergies Coded Allergies Iodinated Contrast Media (Verified Allergy, Mild, HIVES, 12/08/19) linezolid (Verified Allergy, Mild, HIVE, 12/08/19) Past Xdimbbk-Fcgwsg-Yqxjnj Hx Past Med/Social Hx: Reviewed Nursing Past Med/Soc Hx Patient Social History Alcohol Use: Denies Use Number of Drinks Today: GG Alcohol Beverage of Choice: Rum, Whiskey, [place], Vodka Recreational Drug Use: No Smoking Status: Current Everyday Smoker Type Used: Cigarettes 2nd Hand Smoke Exposure: Yes Recent Foreign Travel: No Contact w/other who traveled: No Recent Hopitalizations: Yes (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) Recent Infectious Disease Expo: No Immunizations Up To Date Date of Pneumonia Vaccine: Sep 16, 2019 Date of Influenza Vaccine: Sep 15, 2020 Seasonal Allergies Seasonal Allergies: Yes Past Medical History Surgeries: Appendectomy, Coronary Stent, Gallbladder, 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, Vascular Surgery Respiratory: COPD Currently Using CPAP: No Currently Using BIPAP: No Cardiac: Chronic Edema/Swelling, High Cholesterol, Hypertension Neurological: Headaches /Migraines, Neuropathy 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: No 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 Gastrointestinal: Obstructive Bowel, Ulcer Musculoskeletal: Arthritis, Fibromyalgia, Chronic Back Pain Endocrine: Diabetes, Non-Insulin dep Loss of Vision: Denies Hearing Impairment: Denies Psychosocial: Anxiety, Depression Skin/Integumentary: Recent Skin Changes History of Blood Disorders: No Adverse Reaction to Blood [place]: No (N/A) Family History Colon cancer G8 BROTHER (PANCREATIC) Dementia 19 MOTHER G8 BROTHER Hypertension 19 MOTHER Myocardial infarction G8 BROTHER Review of Systems Constitutional: no symptoms reported EENTM: no symptoms reported Respiratory: cough, phlegm, short of breath Cardiovascular: no symptoms reported Gastrointestinal: no symptoms reported Genitourinary: no symptoms reported Musculoskeletal: no symptoms reported Skin: no symptoms reported Psychiatric/Neurological: No Symptoms Reported Physical Exam Physical Exam Vital Signs Vital Signs - First Documented 12/19/19 12/19/19 12/19/19 18:17 18:20 21:00 Temp 36.7 Pulse 109 Resp 26 B/P (MAP) 141/66 (91) Pulse Ox 92 O2 Delivery Room Air O2 Flow Rate 3.00 FiO2 60 Capillary Refill : Less Than 3 Seconds Height, Weight, BMI Height: 5'1.00" Weight: 162lbs. 0.0oz. 73.565797uc; 27.00 BMI Method:Stated General Appearance: No Apparent Distress, Obese HEENT: PERRL/EOMI, Pharynx Normal Neck: Normal Inspection, Supple Respiratory: No Respiratory Distress, Wheezing Cardiovascular: Regular Rate, Rhythm, No Edema, No Murmur Gastrointestinal: Normal Bowel Sounds, Non Tender, Soft Extremity: Normal Inspection, Non Tender, Pedal Edema Neurologic/Psychiatric: Alert, Oriented x3, No Motor/Sensory Deficits, Other (Flat affect) Skin: Normal Color, Warm/Dry Results Results/Procedures Labs Laboratory Tests 12/19/19 18:26 12/20/19 04:00 Patient resulted labs reviewed. Imaging: Reviewed Imaging Report Assessment/Plan Admission Diagnosis Acute on chronic respiratory failure with hypoxemia and hypercapnia Admission Status: Inpatient Order (span 2 midnights) Reason for Inpatient Admission: Respiratory failure requiring BiPAP Assessment and Plan Acute on chronic respiratory failure with hypoxemia and hypercapnia COPD with acute exacerbation Afebrile, no leukocytosis Chest x-ray without consolidation ABG with acute hypoxemic and hypercapnic respiratory failure Started on Vapotherm Pulmonology consulted, appreciate assistance Begin BiPAP nightly and as needed Repeat ABG tomorrow morning Started on Solu-Medrol MAT protocol initiated Hyperkalemia Potassium 5.3, mildly elevated, continue to monitor Type II diabetes mellitus Continue Levemir Sliding scale insulin GERD Continue pantoprazole Psychiatric diagnosis, unspecified Continue Topamax and Seroquel Continue Xanax DVT prophylaxis: Lovenox Diagnosis/Problems Diagnosis/Problems (1) Acute on chronic respiratory failure with hypoxia and hypercapnia Status: Acute (2) COPD with acute exacerbation Status: Acute (3) T2DM (type 2 diabetes mellitus) Status: Chronic (4) GERD (gastroesophageal reflux disease) Status: Chronic (5) Psychiatric diagnosis Status: Chronic Clinical Quality Measures DVT/VTE Risk/Contraindication: Risk Factor Score Per Nursin RFS Level Per Nursing on Admit: 4+=Very High LUKAS NUNES MD Dec 20, 2019 12:20
[2019-12-20] MEDS: ALPRAZolam 0.5 MG (XANAX) TAB PO SCH ×2 (12:45→20:36)
[2019-12-20 13:25] LABS: ALBUMIN 3.4 GM/DL (3.2-4.5); BILIRUBIN,TOTAL 0.2 MG/DL (0.1-1.0); CREATININE SERUM 1.24 MG/DL (0.60-1.30); PHOSPHORUS 4.4 MG/DL (2.3-4.7); POTASSIUM 4.3 MMOL/L (3.6-5.0); TOTAL PROTEIN 6.8 GM/DL (6.4-8.2)
[2019-12-20] MEDS ORDERED: methylPREDNISolone 40 MG/ML (Solu-MEDROL) VIAL ONE (13:50)
[2019-12-20 14:16] LABS: ABG BASE EXCESS -0.6 MMOL/L (-2.5-2.5); ABG OXYGEN SATURATION 91 % (94-100); ABG PCO2 46 MMHG (35-45); ABG PO2 69 MMHG (79-93); ABG TCO2 25.8 MMOL/L (21.0-31.0)
[2019-12-20 14:19] LABS: ABG PH 7.34 (7.37-7.43); ALLENS TEST YES-POS; INSPIRED O2 20; PATIENT TEMP 36.8; VENTILATOR NO
[2019-12-20] MEDS: methylPREDNISolone 40 MG/ML (Solu-MEDROL) VIAL IVP SCH ×2 (14:30→20:36)
[2019-12-20] MEDS: RT-ADVAIR HFA 115/21 MCG PER PUFF IH SCH ×2 (14:56→19:10)
[2019-12-20] MEDS ORDERED: ALBU2.5V4 INH (15:14)
[2019-12-20] MEDS ORDERED: RANO500T5 PO (15:14)
[2019-12-20] MEDS ORDERED: INSU100I10 SQ (15:14)
[2019-12-20] MEDS ORDERED: OXYC30TA80 PO (15:14)
[2019-12-20] MEDS ORDERED: ALPR1TAB7 PO (15:14)
[2019-12-20] MEDS ORDERED: CNC1KV IM (15:14)
[2019-12-20] MEDS ORDERED: QUEtiapine 25 MG (SEROquel) TAB IMMEDIATE RELEASE PO SCH (21:00)
[2019-12-21] VITALS (11 sets, daily range): BP systolic 95–134; BP diastolic 46–84
[2019-12-21] MEDS: methylPREDNISolone 40 MG/ML (Solu-MEDROL) VIAL IVP SCH ×2 (02:28→09:21)
[2019-12-21 02:56] LABS: BASOPHILS % (AUTO) 0 % (0-10); EOSINOPHILS % (AUTO) 0 % (0-10); HEMATOCRIT 28 % (35-52); LYMPHOCYTES # (AUTO) 0.5 X 10^3 (1.0-4.0); LYMPHOCYTES % (AUTO) 7 % (12-44); MEAN CORPUSCULAR HEMOGLOBIN 27 PG (25-34); MEAN CORPUSCULAR HGB CONC 32 G/DL (32-36); MEAN CORPUSCULAR VOLUME 85 FL (80-99); MEAN PLATELET VOLUME 10.4 FL (7.4-10.4); MONOCYTES # (AUTO) 0.3 X 10^3 (0.0-1.0); MONOCYTES % (AUTO) 4 % (0-12); NEUTROPHILS # (AUTO) 6.5 X 10^3 (1.8-7.8); NEUTROPHILS % (AUTO) 89 % (42-75); PLATELET COUNT 238 10^3/uL (130-400); RED CELL DISTRIBUTION WIDTH 14.4 % (10.0-14.5); WHITE BLOOD COUNT 7.3 10^3/uL (4.3-11.0)
[2019-12-21 03:16] LABS: CALCIUM 8.6 MG/DL (8.5-10.1); CREATININE SERUM 1.13 MG/DL (0.60-1.30); MAGNESIUM 1.8 MG/DL (1.6-2.4); PHOSPHORUS 3.4 MG/DL (2.3-4.7); POTASSIUM 4.4 MMOL/L (3.6-5.0)
[2019-12-21] MEDS: RT-ALBUTEROL/IPRATROPIUM 3 ML (DUONEB) VIAL INH SCH ×3 (03:27→10:35)
[2019-12-21] MEDS: KCL 20 MEQ TAB (K-DUR) PO SCH (04:23)
[2019-12-21] MEDS: POTASSIUM CL 10MEQ/50ML IVPB 50 ML IV SCH (04:23)
[2019-12-21] MEDS: MAGNESIUM 1 GM/100 ML IVPB 100 ML IV SCH (04:23)
[2019-12-21] MEDS: NS IV 1000 ML 1,000 ML IV SCH (04:24)
--- NOTE | 2019-12-21 05:09 | Pulmonary Progress Note ---
Subjective Time Seen by a Provider: 05:04 Subjective/Events-last exam Pt is still requiring Vapotherm Sepsis Event Evaluation Height, Weight, BMI Height: 5'1.00" Weight: 162lbs. 0.0oz. 73.671654tl; 27.00 BMI Method:Stated Focused Exam Lactate Level 12/19/19 18:26: Lactic Acid Level 0.60 Exam Exam Vital Signs Date Time Temp Pulse Resp B/P (MAP) Pulse Ox O2 Delivery O2 Flow Rate FiO2 12/21/19 03:41 Vapotherm 20.00 50 12/21/19 03:40 Vapotherm 18.00 40.00 12/21/19 03:28 95 Vapotherm 20.00 45 12/21/19 03:00 64 15 106/54 (71) 96 Vapotherm 20.00 50.00 12/21/19 02:00 73 17 111/84 (93) 96 Vapotherm 20.00 50.00 12/21/19 01:50 () Vapotherm 20.00 50.00 12/21/19 01:00 80 12/21/19 01:00 64 19 104/55 (71) 93 NIV Bilevel 40.00 12/21/19 00:31 Vapotherm 20.00 50 12/21/19 00:00 68 18 95/51 (66) 93 NIV Bilevel 40.00 12/20/19 23:30 36.5 12/20/19 23:27 NIV Bilevel 40.00 12/20/19 23:15 79 14 97 45.00 12/20/19 23:00 86 20 133/62 (85) 92 Vapotherm 20.00 50.00 12/20/19 22:00 36.8 12/20/19 22:00 87 21 109/55 (73) 93 Vapotherm 20.00 50.00 12/20/19 21:00 92 18 138/55 (82) 92 Vapotherm 20.00 50.00 12/20/19 20:00 88 22 142/62 (88) 93 Vapotherm 20.00 50.00 12/20/19 20:00 Vapotherm 20.00 50 12/20/19 19:18 97 Vapotherm 20.00 45 12/20/19 19:17 Vapotherm 20.00 45 2/8/20 19:10 96 Vapotherm 20.00 50 12/20/19 19:00 82 12/20/19 19:00 82 15 128/80 (96) 96 Vapotherm 20.00 50.00 12/20/19 18:00 86 23 90 Vapotherm 20.00 50.00 12/20/19 17:00 84 35 123/76 (92) 92 Vapotherm 20.00 50.00 12/20/19 16:00 75 14 112/54 (73) 89 Vapotherm 20.00 50.00 12/20/19 16:00 Vapotherm 20.00 50 12/20/19 15:00 76 33 114/57 (76) 90 Vapotherm 20.00 50.00 12/20/19 14:57 92 Vapotherm 20.00 50 12/20/19 14:00 81 16 110/73 (85) 92 Vapotherm 20.00 50.00 12/20/19 13:00 89 16 132/66 (88) 93 Vapotherm 20.00 50.00 12/20/19 12:47 89 12/20/19 12:00 Vapotherm 20.00 50 12/20/19 12:00 89 20 121/59 (79) 90 Vapotherm 20.00 50.00 12/20/19 11:00 91 23 130/66 (87) 94 Vapotherm 20.00 50.00 12/20/19 10:00 89 29 155/80 (105) 90 Vapotherm 40.00 100.00 12/20/19 09:20 Vapotherm 40.00 100.00 12/20/19 09:02 84 17 130/60 (83) 91 Vapotherm 15.00 40.00 12/20/19 08:50 Vapotherm 15.00 40.00 12/20/19 08:00 86 16 116/63 (80) 90 Vapotherm 30.00 45.00 12/20/19 08:00 Vapotherm 20.00 50 12/20/19 07:00 86 12/20/19 07:00 89 25 109/49 (69) 97 Vapotherm 30.00 45.00 12/20/19 06:26 97 Vapotherm 30.00 45 12/20/19 06:00 81 22 121/59 (79) 96 Vapotherm 30.00 45.00 I & O 12/21/19 07:00 Intake Total 1195 ml Output Total 2200 ml Balance -1005 ml Height & Weight Height: 5'1.00" Weight: 162lbs. 0.0oz. 73.602962yw; 27.00 BMI Method:Stated General Appearance: No Apparent Distress, Obese HEENT: PERRL/EOMI, Pharynx Normal Neck: Normal Inspection, Supple Respiratory: No Respiratory Distress, Wheezing Cardiovascular: Regular Rate, Rhythm, No Edema, No Murmur Capillary Refill: Less Than 3 Seconds Gastrointestinal: normal bowel sounds, non tender, soft Extremity: Normal Inspection, Non Tender, Pedal Edema Neurologic/Psychiatric: Alert, Oriented x3, No Motor/Sensory Deficits, Other (Flat affect) Skin: Normal Color, Warm/Dry Results Lab Laboratory Tests 12/19/19 18:26 12/20/19 04:00 12/20/19 12:45 12/21/19 02:46 Assessment/Plan Assessment/Plan Acute on chronic respiratory failure with acute respiratory acidosis -C02 on admission is 54 -Pt will benefit from home vent to mask -Pt did not tolerate BiPAP last night - BiPAP QHS and PRN -SL IVF and check BNP -Give Lasix IV x 1 COPDAE -Solumedrol -Currently requiring Vapotherm -DuoNebs Q 4 add advair -CXR reviewed QING TAO DO Dec 21, 2019 05:09
[2019-12-21] MEDS ORDERED: FUROSEMIDE 40 MG/4 ML INJ (LASIX) IVP ONE ×2 (05:15→05:45)
[2019-12-21] MEDS: inSUlin ASPART (NovoLOG) 1 UNIT/0.01 ML (CHARGE PER UNIT) SC SCH (06:23)
[2019-12-21] MEDS: ENOXAPARIN 40 MG/0.4 ML (LOVENOX) SYR SC SCH (06:23)
[2019-12-21] MEDS: FUROSEMIDE 20 MG (LASIX) TAB PO SCH (06:24)
--- NOTE | 2019-12-21 06:41 | NUR ---
FINGERSTICK BLOOD SUGAR 305. 7UNITS NOVOLOG ADMINISTERED.
[2019-12-21] MEDS: RT-ADVAIR HFA 115/21 MCG PER PUFF IH SCH (07:07)
--- NOTE | 2019-12-21 07:44 | Diagnostic Imaging Report ---
INDICATION: COPD. Comparison made with prior examination 12/20/2019. FINDINGS: The heart size is normal. There is some venous congestion. There is left basilar infiltrate. There is no pleural effusion or pneumothorax. Mediastinum is unremarkable. The PICC lines are in satisfactory position. IMPRESSION: Left basilar infiltrate with some central pulmonary venous congestion. Dictated by: Dictated on workstation # [id number]
[2019-12-21 08:55] LABS: ABG BASE EXCESS 2.3 MMOL/L (-2.5-2.5); ABG OXYGEN SATURATION 96 % (94-100); ABG PCO2 43 MMHG (35-45); ABG PO2 85 MMHG (79-93)
[2019-12-21 09:06] LABS: ALLENS TEST YES-POS; INSPIRED O2 4L HFNC; PATIENT TEMP 36.5; VENTILATOR NO
[2019-12-21] MEDS: ALPRAZolam 0.5 MG (XANAX) TAB PO SCH (09:20)
[2019-12-21] MEDS: PREGABALIN 150 MG (LYRICA) CAPSULE PO SCH (09:20)
[2019-12-21] MEDS: PANTOPRAZOLE 40 MG (PROTONIX) TAB PO SCH (09:21)
[2019-12-21] MEDS: toPIRamate 25 MG (TOPAMAX) TAB PO SCH (09:21)
[2019-12-21] MEDS: ASPIRIN 81 MG CHEW (CHILDREN'S ASA) PO SCH (09:21)
[2019-12-21] MEDS ORDERED: PRD20T PO (10:19)
--- NOTE | 2019-12-21 12:51 | Discharge Summary ---
Discharge Summary Hospital Course Was the Problem List Reviewed?: Yes Problems/Dx: (1) Acute on chronic respiratory failure with hypoxia and hypercapnia Status: Acute (2) COPD with acute exacerbation Status: Acute (3) T2DM (type 2 diabetes mellitus) Status: Chronic (4) GERD (gastroesophageal reflux disease) Status: Chronic (5) Psychiatric diagnosis Status: Chronic Hospital Course Date of Admission: Dec 19, 2019 at 19:35 Admission Diagnosis : acute on chronic respiratory failure with hypoxia and hypercapnia Family Physician/Provider: Addy Knight DO Date of Discharge: 12/21/19 Discharge Diagnosis: acute on chronic respiratory failure with hypoxemia and hypercapnia Hospital Course: Vira Irizarry is a 69-year-old female with past medical history of COPD with chronic oxygen dependence who presented with shortness of breath and was admitted with acute on chronic hypoxic and hypercapnic respiratory failure due to COPD exacerbation. She was treated with steroids and breathing treatments and she improved. She attempted BiPAP but was unable to tolerate it. Her oxygen was at her baseline 3 L at the time of her discharge. She'll complete a short course of steroids. She should follow-up with her primary care physician in about a week. Labs and Pending Lab Test: Laboratory Tests 12/20/19 14:05: Blood Gas Puncture Site LT RAD, Blood Gas Patient Temperature 36.8, Arterial Blood pH 7.34*L, Arterial Blood Partial Pressure CO2 46H, Arterial Blood Partial Pressure O2 69L, Arterial Blood HCO3 24, Arterial Blood Total CO2 25.8, Arterial Blood Oxygen Saturation 91L, Arterial Blood Base Excess -0.6, Barber Test YES- POS, Blood Gas Ventilator Setting NO, Blood Gas Inspired Oxygen 20 12/20/19 15:39: Glucometer 279H 12/20/19 20:34: Glucometer 298H 12/21/19 02:46: White Blood Count 7.3, Red Blood Count 3.28L, Hemoglobin 9.0L, Hematocrit 28L, Mean Corpuscular Volume 85, Mean Corpuscular Hemoglobin 27, Mean Corpuscular Hemoglobin Concent 32, Red Cell Distribution Width 14.4, Platelet Count 238, Mean Platelet Volume 10.4, Neutrophils (%) (Auto) 89H, Lymphocytes (%) (Auto) 7L , Monocytes (%) (Auto) 4, Eosinophils (%) (Auto) 0, Basophils (%) (Auto) 0, Neutrophils # (Auto) 6.5, Lymphocytes # (Auto) 0.5L, Monocytes # (Auto) 0.3, Eosinophils # (Auto) 0.0, Basophils # (Auto) 0.0, Sodium Level 138, Potassium Level 4.4, Chloride Level 107, Carbon Dioxide Level 23, Anion Gap 8, Blood Urea Nitrogen 36H, Creatinine 1.13, Estimat Glomerular Filtration Rate 48, BUN/ Creatinine Ratio 32, Glucose Level 265H, Calcium Level 8.6, Phosphorus Level 3.4, Magnesium Level 1.8, B-Type Natriuretic Peptide 211.4H 12/21/19 06:15: Glucometer 305H 12/21/19 08:57: Blood Gas Puncture Site LT RADIAL, Blood Gas Patient Temperature 36.5, Arterial Blood pH 7.40, Arterial Blood Partial Pressure CO2 43, Arterial Blood Partial Pr essure O2 85, Arterial Blood HCO3 27, Arterial Blood Total CO2 28.0, Arterial Blood Oxygen Saturation 96, Arterial Blood Base Excess 2.3, Barber Test YES-POS, Blood Gas Ventilator Setting NO, Blood Gas Inspired Oxygen 4L HFNC Microbiology 12/19/19 Blood Culture - Preliminary, Resulted No growth 12/19/19 Influenza Types A,B Antigen (EBONIE) - Final, Complete Home Meds Active Prednisone 20 Mg Tab 40 Mg PO DAILY 3 Days Tylenol (Acetaminophen) 325 Mg Tablet 975 Mg PO TID 30 Days Metformin HCl 1,000 Mg Tablet 1,000 Mg PO BID Hold for 48 hours Reported Ranolazine ER (Ranolazine) 500 Mg Tab.er.12h 500 Mg PO BID Albuterol Sulfate 2.5 Mg/3 Ml Vial.neb 2.5 Mg INH QID Alprazolam 1 Mg Tablet 1 Mg PO UD 7 Days Cyanocobalamin Injection (Cyanocobalamin) 1,000 Mcg/Ml Inj 1,000 Mcg IM ONCE 30 Days Lantus Solostar (Insulin Glargine,Hum.rec.anlog) 100 Unit/1 Ml Insuln.pen 10 Unit SQ HS Oxycodone HCl 30 Mg Tablet 30 Mg PO Q6H 7 Days Lyrica (Pregabalin) 150 Mg Capsule 150 Mg PO BID Furosemide 20 Mg Tablet 20 Mg PO DAILY Dicyclomine HCl 20 Mg Tablet 10 Mg PO BID TAKE 1/2 OF 20MG TAB Ropinirole HCl 1 Mg Tablet 1 Mg PO HS Advair 250-50 Diskus (Fluticasone/Salmeterol) 1 Each Blst.w.dev 1 Puff IH BID Combivent Respimat Inhal Equality (Albuterol/Ipratropium) 4 Gm Aero 1 Puff IH QID Omeprazole 20 Mg Capsule. 20 Mg PO BID Montelukast Sodium 10 Mg Tablet 10 Mg PO DAILY@1400 Aspirin EC (Aspirin) 81 Mg Tablet. 81 Mg PO DAILY@1400 Atorvastatin Calcium 10 Mg Tablet 10 Mg PO HS Klor-Con M10 (Potassium Chloride) 10 Meq Tab.er.prt 10 Meq PO TID Cyclobenzaprine HCl 10 Mg Tablet 10 Mg PO TID PRN Quetiapine Fumarate 50 Mg Tablet 50 Mg PO HS Topiramate 50 Mg Tablet 50 Mg PO DAILY Meclizine HCl 25 Mg Tablet 25 Mg PO TID PRN Assessment/Pt Instructions take medications as prescribed. Complete your course of prednisone. Follow-up with your primary care physician. Return with worsening shortness of breath. Discharge Planning: <30 minutes discharge planning Discharge Instructions Discharge Diet: No Restrictions Activity as Tolerated: Yes Consultations pulmonology Discharge Physical Examination Vital Signs Vital Signs Date Time Temp Pulse Resp B/P (MAP) Pulse Ox O2 Delivery O2 Flow Rate FiO2 12/21/19 10:38 97 High Flow N/C 3.00 12/21/19 10:00 79 21 112/68 (83) 12/21/19 08:00 36.4 12/21/19 07:09 30 General Appearance: No Apparent Distress, Obese Respiratory: Lungs Clear, Normal Breath Sounds, No Respiratory Distress Cardiovascular: Regular Rate, Rhythm, No Edema, No Murmur Gastrointestinal: Normal Bowel Sounds, Non Tender, Soft Extremity: Normal Inspection, Non Tender, No Pedal Edema Skin: Normal Color, Warm/Dry Neurologic/Psychiatric: Alert, No Motor/Sensory Deficits Allergies: Coded Allergies: Iodinated Contrast Media (Verified Allergy, Mild, HIVES, 12/08/19) linezolid (Verified Allergy, Mild, HIVE, 12/08/19) Copy Copies To 1: ADDY KNIGHT DO Discharge Summary Date of Admission Dec 19, 2019 at 19:35 Date of Discharge Dec 21, 2019 at 11:45 Discharge Date: Dec 21, 2019 Discharge Time: 11:45 Admission Diagnosis Acute on chronic respiratory failure with hypoxemia and hypercapnia Consults/Procedures Consulations pulmonology Discharge Diagnosis Acute on chronic respiratory failure with hypoxemia and hypercapnia (1) Acute on chronic respiratory failure with hypoxia and hypercapnia Status: Acute (2) COPD with acute exacerbation Status: Acute (3) T2DM (type 2 diabetes mellitus) Status: Chronic (4) GERD (gastroesophageal reflux disease) Status: Chronic (5) Psychiatric diagnosis Status: Chronic Clinical Quality Measures DVT/VTE Risk/Contraindication: Risk Factor Score Per Nursin RFS Level Per Nursing on Admit: 4+=Very High LUKAS NUNES MD Dec 21, 2019 12:51
== END 2019-12-21 11:45 | disposition home or self-care (01) | DRG 189 ==
LOC: EDUNIT# 18:12 → ER 18:13 → ICU 19:35
PROVIDERS: ADMIT Internal Medicine; ATTEND Internal Medicine
PROC: 5A09357 Assistance with Respiratory Ventilation, Less than 24 Consecutive Hours, Continuous Positive Airway Pressure (ICD-10-PCS; principal; 2019-12-20)
DX: J96.21 Acute and chronic respiratory failure with hypoxia (principal); J43.9 Emphysema, unspecified; J96.22 Acute and chronic respiratory failure with hypercapnia; G89.29 Other chronic pain; M54.9 Dorsalgia, unspecified; E11.9 Type 2 diabetes mellitus without complications; F41.9 Anxiety disorder, unspecified; F32.9 Major depressive disorder, single episode, unspecified; E66.9 Obesity, unspecified; K21.9 Gastro-esophageal reflux disease without esophagitis; Z68.27 Body mass index [BMI] 27.0-27.9, adult
CPT/HCPCS: 36415; 36600; 71045; 80048; 80053; 82805; 82962; 83605; 83735; 83880; 84100; 85007; 85025; 85027; 85610; 85730; 87040; 87081; 87804; 94640; 94660; 94664

== ENCOUNTER 2020-01-17 08:38 | Inpatient (IN) | payer MEDICARE, MEDICAID ==
[~2020-01-17] VITALS: Ht 154.9 cm; Wt 74.8 kg
[~2020-01-17 08:38] MED LIST changes: +ALBU2.5V4 NEB; +CNC1KV IM; +HYDR-34 PO; -HYDR-3816 PO; -MECL-106 PO; +MECL-149 PO; -MONT10TA24 PO; +MONT10TA26 PO; -OMEP-280 PO; +OMEP20CA18 PO; +PRD20T PO; +RANO500T5 PO; +ROPI1TAB PO
[2020-01-17] MEDS ORDERED: fentaNYL INJECTION 100 MCG/2 ML AMP IVP STA ×2 (08:58→11:28)
[2020-01-17] MEDS ORDERED: LACTATED RINGERS 1,000 ML IV STA (08:58)
[2020-01-17] MEDS ORDERED: ONDANSETRON 4 MG/2 ML (SDV) Z0FRAN IVP ONE (09:00)
[2020-01-17 09:14] LABS: CLARITY,URINE CLEAR; COLOR,URINE AMBER; GLUCOSE, URINE (UA) NEGATIVE (NEGATIVE); KETONES,URINE NEGATIVE (NEGATIVE); LEUKOCYTE ESTERASE ,URINE NEGATIVE (NEGATIVE); NITRITE,URINE NEGATIVE (NEGATIVE); PROTEIN,URINE 1+ (NEGATIVE)
--- NOTE | 2020-01-17 09:15 | ED Abdominal Pain ---
General Chief Complaint: Abdominal/GI Problems Stated Complaint: NAUSEA Nursing Triage Note: pt brought in by [facility] from home with complaint of abd pain, nausea, vomiting. states last bowel movement was yesterday. states is not passing gas. states ate cabbage a few days ago and has felt sick since. Sepsis Screen: No Definite Risk Source of Information: Patient, EMS Exam Limitations: No Limitations History of Present Illness Date Seen by Provider: Jan 17, 2020 Time Seen by Provider: 08:38 Initial Comments Here by EMS with report of dry heaving for the last 36 hours. Patient states onset was after eating cabbage. Last bowel movement was yesterday. She has not passed gas since. States that she had similar problem when she ate broccoli. Has had episodes of being hot and cold. Denies blood in her vomit or stools. Denies breathing problems currently. Does have history of previous small bowel obstruction a few times and has had to have an NG tube. Notes that her abdomen is quite distended. Patient here by EMS in essentially because she was too weak to walk to the car and her couldn't get her here. Patient is mentating well and able to tell her story without difficulty. Unable to eat or drink over the last 24 hours. Timing/Duration: 1-2 Days, Getting Worse Severity/Quality: Moderate, Severe, Cramping Location: Generalized Abdomen Radiation: No Radiation Activities at Onset: None Modifying Factors: Worsens With Eating Associated Symptoms: No Back Pain, No Chest Pain; Fever/Chills, Nausea/Vomiting; No Shortness of Air; Swelling/Mass in Abdomen, Weakness Allergies and Home Medications Allergies Coded Allergies: Iodinated Contrast Media (Verified Allergy, Mild, HIVES, 12/08/19) linezolid (Verified Allergy, Mild, HIVE, 12/08/19) Home Medications Acetaminophen 325 Mg Tablet, 975 MG PO TID Prescribed by: LUKAS NUNES on 10/25/19 1146 Albuterol Sulfate 2.5 Mg/3 Ml Vial.neb, 2.5 MG INH QID, (Reported) Albuterol/Ipratropium 4 Gm Aero, 1 PUFF IH QID, (Reported) Alprazolam 1 Mg Tablet, 1 MG PO UD, (Reported) Aspirin 81 Mg Tablet.dr, 81 MG PO DAILY@1400, (Reported) Atorvastatin Calcium 10 Mg Tablet, 10 MG PO HS, (Reported) Cyanocobalamin 1,000 Mcg/Ml Inj, 1,000 MCG IM ONCE, (Reported) Cyclobenzaprine HCl 10 Mg Tablet, 10 MG PO TID PRN for MUSCLE SPASMS, (Reported) Dicyclomine HCl 20 Mg Tablet, 10 MG PO BID, (Reported) TAKE 1/2 OF 20MG TAB Fluticasone/Salmeterol 1 Each Blst.w.dev, 1 PUFF IH BID, (Reported) Furosemide 20 Mg Tablet, 20 MG PO DAILY, (Reported) Insulin Glargine,Hum.rec.anlog 100 Unit/1 Ml Insuln.pen, 10 UNIT SQ HS, (Reported) Meclizine HCl 25 Mg Tablet, 25 MG PO TID PRN for DIZZINESS, (Reported) Metformin HCl 1,000 Mg Tablet, 1,000 MG PO BID Hold for 48 hours Prescribed by: JUAN LICONA on 03/19/19 0839 Montelukast Sodium 10 Mg Tablet, 10 MG PO DAILY@1400, (Reported) Omeprazole 20 Mg Capsule.dr, 20 MG PO BID, (Reported) Oxycodone HCl 30 Mg Tablet, 30 MG PO Q6H, (Reported) Potassium Chloride 10 Meq Tab.er.prt, 10 MEQ PO TID, (Reported) Prednisone 20 Mg Tab, 40 MG PO DAILY Prescribed by: MARLEY PAYTON on 12/21/19 1019 Pregabalin 150 Mg Capsule, 150 MG PO BID, (Reported) Quetiapine Fumarate 50 Mg Tablet, 50 MG PO HS, (Reported) Ranolazine 500 Mg Tab.er.12h, 500 MG PO BID, (Reported) Ropinirole HCl 1 Mg Tablet, 1 MG PO HS, (Reported) Topiramate 50 Mg Tablet, 50 MG PO DAILY, (Reported) Patient Home Medication List Home Medication List Reviewed: Yes Review of Systems Review of Systems Constitutional: see HPI, chills, weakness EENTM: No Symptoms Reported Respiratory: Denies Cough, Denies Shortness of Air Cardiovascular: Denies Chest Pain, Denies Edema Gastrointestinal: Abdomen Distended, Abdominal Pain, Nausea, Vomiting Genitourinary: See HPI; Denies Burning, Denies Pain Musculoskeletal: no symptoms reported Skin: no symptoms reported All Other Systems Reviewed Negative Unless Noted: Yes Past Tgdrjwk-Detubr-Hspfja Hx Past Med/Social Hx: Reviewed Nursing Past Med/Soc Hx Patient Social History Alcohol Use: Denies Use Number of Drinks Today: GG Alcohol Beverage of Choice: Rum, Whiskey, [place], Vodka Recreational Drug Use: No Smoking Status: Current Everyday Smoker Type Used: Cigarettes 2nd Hand Smoke Exposure: Yes Recent Foreign Travel: No Contact w/Someone Who Travel: No Recent Infectious Disease Expo: No Recent Hopitalizations: Yes (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) Immunizations Up To Date Tetanus Booster (TDap): Unknown Date of Pneumonia Vaccine: Sep 16, 2019 Date of Influenza Vaccine: Sep 15, 2020 Seasonal Allergies Seasonal Allergies: Yes Past Medical History Surgeries: Yes (several exploratomy laparotomies, hernia with mesh, several lysis) Appendectomy, Coronary Stent, Gallbladder, 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, Vascular Surgery Respiratory: Yes (wears 3L NC at all times) Chronic Bronchitis, COPD, Emphysema Currently Using CPAP: No Currently Using BIPAP: No Cardiac: Yes (CHF) Chronic Edema/Swelling, High Cholesterol, Hypertension Neurological: Yes Headaches /Migraines, Neuropathy 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 Disorders: No [employer] History: 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 Genitourinary: No Gastrointestinal: Yes (SEVERAL BOWEL OBSTRUCTIONS, chronic abd pain) Obstructive Bowel, Ulcer Musculoskeletal: Yes Arthritis, Fibromyalgia, Chronic Back Pain Endocrine: Yes Diabetes, Non-Insulin dep HEENT: Yes (GLASSES) Loss of Vision: Denies Hearing Impairment: Denies Cancer: No Psychosocial: Yes Anxiety, Depression Integumentary: Yes (CHRONIC ABDOMINAL WOUND--MRSA) Recent Skin Changes Blood Disorders: No Adverse Reaction/Blood Tranf: No (N/A) Family Medical History Reviewed Nursing Family Hx Colon cancer G8 BROTHER (PANCREATIC) Dementia 19 MOTHER G8 BROTHER Hypertension 19 MOTHER Myocardial infarction G8 BROTHER Physical Exam Vital Signs Vital Signs - First Documented 01/17/20 08:40 Temp 35.5 Pulse 74 Resp 23 B/P (MAP) 142/76 (98) Pulse Ox 98 O2 Delivery Room Air Capillary Refill : Less Than 3 Seconds Height/Weight/BMI Height: 5'1.00" Weight: 162lbs. 0.0oz. [id number]; 31.00 BMI Method:Stated General Appearance: WD/WN, no apparent distress HEENT: PERRL/EOMI, pharynx normal Neck: full range of motion, supple Respiratory: no respiratory distress, crackles (few scattered) Cardiovascular: regular rate, rhythm, no murmur Gastrointestinal: abnormal bowel sounds (high-pitched and hyperactive), distended; No guarding, No rebound; tenderness (diffuse) Extremities: non-tender, normal inspection Back: normal inspection, no CVA tenderness, no vertebral tenderness Neurologic/Psychiatric: alert, oriented x 3 Skin: normal color, warm/dry Focused Exam Lactate Level 01/17/20 08:52: Lactic Acid Level 0.60 Lactic Acid Level Laboratory Tests Test 01/17/20 08:52 Lactic Acid Level 0.60 MMOL/L (0.50-2.00) Progress/Results/Core Measures Results/Orders Lab Results Laboratory Tests Test 01/17/20 08:52 01/17/20 09:05 Range/Units White Blood Count 18.1 H 4.3-11.0 10^3/uL Red Blood Count 4.84 4.35-5.85 10^6/uL Hemoglobin 13.3 11.5-16.0 G/DL Hematocrit 41 35-52 % Mean Corpuscular Volume 84 80-99 FL Mean Corpuscular Hemoglobin 28 25-34 PG Mean Corpuscular Hemoglobin Concent 33 32-36 G/DL Red Cell Distribution Width 14.3 10.0-14.5 % Platelet Count 364 130-400 10^3/uL Mean Platelet Volume 10.5 H 7.4-10.4 FL Neutrophils (%) (Auto) 88 H 42-75 % Lymphocytes (%) (Auto) 7 L 12-44 % Monocytes (%) (Auto) 4 0-12 % Eosinophils (%) (Auto) 0 0-10 % Basophils (%) (Auto) 0 0-10 % Neutrophils # (Auto) 16.0 H 1.8-7.8 X 10^3 Lymphocytes # (Auto) 1.3 1.0-4.0 X 10^3 Monocytes # (Auto) 0.8 0.0-1.0 X 10^3 Eosinophils # (Auto) 0.0 0.0-0.3 10^3/uL Basophils # (Auto) 0.0 0.0-0.1 10^3/uL Sodium Level 136 135-145 MMOL/L Potassium Level 4.5 3.6-5.0 MMOL/L Chloride Level 98 98-107 MMOL/L Carbon Dioxide Level 26 21-32 MMOL/L Anion Gap 12 5-14 MMOL/L Blood Urea Nitrogen 18 7-18 MG/DL Creatinine 0.89 0.60-1.30 MG/DL Estimat Glomerular Filtration Rate > 60 BUN/Creatinine Ratio 20 Glucose Level 217 H 70-105 MG/DL Lactic Acid Level 0.60 0.50-2.00 MMOL/L Calcium Level 9.3 8.5-10.1 MG/DL Corrected Calcium 9.3 8.5-10.1 MG/DL Magnesium Level 1.7 1.6-2.4 MG/DL Total Bilirubin 0.4 0.1-1.0 MG/DL Aspartate Amino Transf (AST/SGOT) 15 5-34 U/L Alanine Aminotransferase (ALT/SGPT) 7 0-55 U/L Alkaline Phosphatase 132 40-136 U/L C-Reactive Protein High Sensitivity 0.30 0.00-0.50 MG/DL Total Protein 7.1 6.4-8.2 GM/DL Albumin 4.0 3.2-4.5 GM/DL Lipase 56 8-78 U/L Urine Color AARON H Urine Clarity CLEAR Urine pH 6.0 5-9 Urine Specific [place] >=1.030 1.016-1.022 Urine Protein 1+ H NEGATIVE Urine Glucose (UA) NEGATIVE NEGATIVE Urine Ketones NEGATIVE NEGATIVE Urine Nitrite NEGATIVE NEGATIVE Urine Bilirubin 2+ H NEGATIVE Urine Urobilinogen 1.0 < = 1.0 MG/DL Urine Leukocyte Esterase NEGATIVE NEGATIVE Urine RBC (Auto) NEGATIVE NEGATIVE Urine RBC RARE /HPF Urine WBC RARE /HPF Urine Squamous Epithelial Cells 5-10 /HPF Urine Crystals NONE /LPF Urine Bacteria TRACE /HPF Urine Casts PRESENT /LPF Urine Hyaline Casts 0-2 H /LPF Urine Mucus MODERATE H /LPF Urine Culture Indicated NO My Orders Orders - PETRA MCMANUS MD Cbc With Automated Diff (01/17/20 08:58) Comprehensive Metabolic Panel (01/17/20 08:58) Hs C Reactive Protein (01/17/20 08:58) Lactic Acid Analyzer (01/17/20 08:58) Lipase (01/17/20 08:58) Magnesium (01/17/20 08:58) Ua Culture If Indicated (01/17/20 08:58) Blood Culture (01/17/20 08:58) Ed Iv/Invasive Line Start (01/17/20 08:58) Catheter(Urinary) Insert & Ass 03,15 (01/17/20 08:58) O2 (01/17/20 08:58) Monitor-Rhythm Ecg Trace Only (01/17/20 08:58) Chest 1 View, Ap/Pa Only (01/17/20 08:58) Ct Abdomen/Pelvis Wo (01/17/20 08:58) Fentanyl Injection (Sublimaze Injection (01/17/20 08:58) Ondansetron Injection (Zofran Injectio (01/17/20 09:00) Lactated Ringers (Lr 1000 Ml Iv Solution (01/17/20 08:58) Manual Differential (01/17/20 08:52) Ng Tube Insert & Assessment (01/17/20 09:59) Lidocaine 2% Viscous 15 Ml (Xylocaine Vi (01/17/20 10:00) Benzocaine Extension Tube (Hurricaine Ex (01/17/20 10:00) Medications Given in ED Current Medications Medications Dose Ordered Sig/Alexandru Route Start Time Stop Time Status Last Admin Dose Admin Ondansetron HCl 4 mg ONCE ONCE IVP 01/17/20 09:00 01/17/20 09:02 DC 01/17/20 09:07 4 MG Vital Signs/I&O 01/17/20 08:40 Temp 35.5 Pulse 74 Resp 23 B/P (MAP) 142/76 (98) Pulse Ox 98 O2 Delivery Room Air Blood Pressure Mean: 98 Progress Progress Note : Progress Note Seen and evaluated on arrival by EMS. IV via port access, labs, UA, chest x-ray, CT abdomen and pelvis without contrast, Sheth catheter, LR 1 L bolus, fentanyl 50 g IV and Zofran 4 mg IV ordered. There is significant concerns for small bowel obstruction and patient is allergic to contrast media. We will go ahead and get CT. She is not currently vomiting so it is reasonable to hold off on NG tube at this point as patient's states that she is not a fan of those. She understands that she may need it depending on findings. Monitor patient. 1000: Patient has CT findings of small bowel obstruction. NG tube ordered. I have discussed the case with Dr. Kendrick and he accepts patient in consult. 1003: I discussed the case with Dr. Nunes and he accepts patient for admission. Findings concerns discussed with patient and family who agree with plan. Diagnostic Imaging Diagonstic Imaging: CT Plain Films/CT/US/NM/MRI: abdomen, pelvis Comments NAME: REGI [facility] REC#: [id number] PT STATUS: REG ER : 1950 PHYSICIAN: PETRA MCMANUS MD ADMIT DATE: 01/17/20/ER Draft Date of Exam:01/17/20 CT ABDOMEN/PELVIS WO PROCEDURE: CT abdomen and pelvis without contrast. TECHNIQUE: Multiple contiguous axial images were obtained through the abdomen and pelvis without the use of intravenous contrast. Auto Exposure Controls were utilized during the CT exam to meet ALARA standards for radiation dose reduction. INDICATION: Nausea, vomiting and diarrhea. Comparison made with prior examination 10/24/2019. FINDINGS: The heart size is normal. The lung bases are clear. The liver is normal in size and without focal lesions. Gallbladder is surgically absent. Spleen is normal. Pancreas and adrenal glands are unremarkable. Kidneys are normal in appearance. There is marked distention of the stomach and proximal small bowel compatible with small bowel obstruction. There are some decompressed distal small bowel loops suggesting a transition zone in the mid ileum. There is no free air. There is trace ascites. There is Sheth catheter in the bladder. There is no pelvic mass or adenopathy. There are degenerative changes in the spine. IMPRESSION: Findings compatible with a small bowel obstruction with transition zone likely in the mid to proximal ileum. No other acute abnormality in the abdomen or pelvis. Dictated on workstation # [id number] Dict: 01/17/20 0938 Trans: 01/17/20 0942 [id number] Interpreted by: HARRY PATEL MD Electronically signed by: Diagonstic Imaging: Xray Plain Films/CT/US/NM/MRI: chest Comments [facility] [place] NAME: REGI PAL [facility] REC#: [id number] PT STATUS: REG ER : 1950 PHYSICIAN: PETRA MCMANUS MD ADMIT DATE: 01/17/20/ER Draft Date of Exam:01/17/20 CHEST 1 VIEW, AP/PA ONLY INDICATION: Nausea and vomiting. COMPARISON: 12/21/2019 TECHNIQUE: Single frontal radiograph of the chest dated 01/17/2020. FINDINGS: The cardiac silhouette is within normal limits in size. Minimal central pulmonary vascular congestion. Right-sided Port-A-Cath is again identified with the distal tip overlying the expected location of the cavoatrial junction. Slight blunting of left costophrenic angle. No significant right pleural effusion. The lungs are clear of focal pulmonary opacity. No pneumothorax. No acute osseous abnormality. IMPRESSION: Tiny left basilar pleural effusion versus pleural thickening. Minimal central pulmonary vascular congestion without interstitial edema. Stable right-sided Port-A-Cath. Dictated on workstation # [id number] Dict: 01/17/2041 Trans: 01/17/2044 [id number] Interpreted by: ERMELINDA CRUZ MD Electronically signed by: Departure Communication (Admissions) Time/Spoke to Admitting Phy: 10:03 Time/Spoke to Consulting Phy: 10:00 Impression Primary Impression: Small bowel obstruction Disposition: ADMITTED INPATIENT Condition: Stable Admissions Decision to Admit Reason: Admit from ER (General) Decision to Admit/Date: Jan 17, 2020 Time/Decision to Admit Time: 10:00 Departure-Patient Inst. Referrals: RUDOLPH KENT DO (PCP/Family) Primary Care Physician PETRA MCMANUS MD Jan 17, 2020 09:15
[2020-01-17 09:17] LABS: BASOPHILS % (AUTO) 0 % (0-10); EOSINOPHILS % (AUTO) 0 % (0-10); HEMATOCRIT 41 % (35-52); HEMOGLOBIN 13.3 G/DL (11.5-16.0); LYMPHOCYTES # (AUTO) 1.3 X 10^3 (1.0-4.0); LYMPHOCYTES % (AUTO) 7 % (12-44); MEAN CORPUSCULAR HEMOGLOBIN 28 PG (25-34); MEAN CORPUSCULAR HGB CONC 33 G/DL (32-36); MEAN CORPUSCULAR VOLUME 84 FL (80-99); MEAN PLATELET VOLUME 10.5 FL (7.4-10.4); MONOCYTES # (AUTO) 0.8 X 10^3 (0.0-1.0); MONOCYTES % (AUTO) 4 % (0-12); NEUTROPHILS % (AUTO) 88 % (42-75); PLATELET COUNT 364 10^3/uL (130-400); RED CELL DISTRIBUTION WIDTH 14.3 % (10.0-14.5); WHITE BLOOD COUNT 18.1 10^3/uL (4.3-11.0)
[2020-01-17 09:34] LABS: ALANINE AMINOTRANSFERASE 7 U/L (0-55); ALKALINE PHOSPHATASE 132 U/L (40-136); BILIRUBIN,TOTAL 0.4 MG/DL (0.1-1.0); BUN/CREATININE RATIO 20; CALCIUM 9.3 MG/DL (8.5-10.1); CARBON DIOXIDE 26 MMOL/L (21-32); CHLORIDE 98 MMOL/L (98-107); CREATININE SERUM 0.89 MG/DL (0.60-1.30); GFR ESTIMATED > 60; GLUCOSE 217 MG/DL (70-105); LIPASE 56 U/L (8-78); MAGNESIUM 1.7 MG/DL (1.6-2.4); POTASSIUM 4.5 MMOL/L (3.6-5.0); SODIUM 136 MMOL/L (135-145); TOTAL PROTEIN 7.1 GM/DL (6.4-8.2)
--- NOTE | 2020-01-17 09:42 | Diagnostic Imaging Report ---
PROCEDURE: CT abdomen and pelvis without contrast. TECHNIQUE: Multiple contiguous axial images were obtained through the abdomen and pelvis without the use of intravenous contrast. Auto Exposure Controls were utilized during the CT exam to meet ALARA standards for radiation dose reduction. INDICATION: Nausea, vomiting and diarrhea. Comparison made with prior examination 10/24/2019. FINDINGS: The heart size is normal. The lung bases are clear. The liver is normal in size and without focal lesions. Gallbladder is surgically absent. Spleen is normal. Pancreas and adrenal glands are unremarkable. Kidneys are normal in appearance. There is marked distention of the stomach and proximal small bowel compatible with small bowel obstruction. There are some decompressed distal small bowel loops suggesting a transition zone in the mid ileum. There is no free air. There is trace ascites. There is Sheth catheter in the bladder. There is no pelvic mass or adenopathy. There are degenerative changes in the spine. IMPRESSION: Findings compatible with a small bowel obstruction with transition zone likely in the mid to proximal ileum. No other acute abnormality in the abdomen or pelvis. Dictated by: Dictated on workstation # [id number]
--- NOTE | 2020-01-17 09:44 | Diagnostic Imaging Report ---
INDICATION: Nausea and vomiting. COMPARISON: 12/21/2019 TECHNIQUE: Single frontal radiograph of the chest dated 01/17/2020. FINDINGS: The cardiac silhouette is within normal limits in size. Minimal central pulmonary vascular congestion. Right-sided Port-A-Cath is again identified with the distal tip overlying the expected location of the cavoatrial junction. Slight blunting of left costophrenic angle. No significant right pleural effusion. The lungs are clear of focal pulmonary opacity. No pneumothorax. No acute osseous abnormality. IMPRESSION: Tiny left basilar pleural effusion versus pleural thickening. Minimal central pulmonary vascular congestion without interstitial edema. Stable right-sided Port-A-Cath. Dictated by: Dictated on workstation # [id number]
[2020-01-17 09:48] LABS: BACTERIA,URINE TRACE /HPF; BILIRUBIN,URINE 2+ (NEGATIVE); HYALINE CASTS, URINE 0-2 /LPF; RBC,URINE RARE /HPF; WBC,URINE RARE /HPF
[2020-01-17] MEDS ORDERED: HURRICAINE EXT TUBE (BENZOCAINE) XX ONE (10:00)
[2020-01-17] MEDS ORDERED: LIDOCAINE 2% VISCOUS 15 ML UDC PO ONE (10:00)
[2020-01-17 10:02] LABS: BAND NEUTROPHILS 0 %; BASOPHILS % (MANUAL) 0 %; EOSINOPHILS % (MANUAL) 0 %; LYMPHOCYTES % (MANUAL) 6 %; MONOCYTES % (MANUAL) 7 %; NEUTROPHILS % (MANUAL) 87 %; RBC MORPH NORMAL
--- NOTE | 2020-01-17 11:30 | Consultation - Surgery ---
History of Present Illness History of Present Illness Patient Consulted On(pérez/time) 01/17/20 11:25 Time Seen by Provider: 10:21 History of Present Illness Surgery asked to consult regarding PSBO. HPI per ED: Here by EMS with report of dry heaving for the last 36 hours. Patient states onset was after eating cabbage. Last bowel movement was yesterday. She has not passed gas since. States that she had similar problem when she ate broccoli. Has had episodes of being hot and cold. Denies blood in her vomit or stools. Denies breathing problems currently. Does have history of previous small bowel obstruction a few times and has had to have an NG tube. Notes that her abdomen is quite distended. Patient here by EMS in essentially because she was too weak to walk to the car and her couldn't get her here. Patient is mentating well and able to tell her story without difficulty. Unable to eat or drink over the last 24 hours. Timing/Duration: 1-2 Days, Getting Worse Severity/Quality: Moderate, Severe, Cramping Location: Generalized Abdomen Radiation: No Radiation Activities at Onset: None Modifying Factors: Worsens With Eating Associated Symptoms: No Back Pain, No Chest Pain; Fever/Chills, Nausea/Vomiting; No Shortness of Air; Swelling/Mass in Abdomen, Weakness When I spoke to pt this am (with her and a friend) she states it has been a while since she had "episode" like this; possibly 2 years. She thinks last time she had surgery was over 5 years ago; but she has had to come and be admitted to the hospital a few times because of obstruction. She states usually she gets an NGT and then it slowly resolves on its own. She states the pain is at least a 9 out of 10 and her abdomen is very distended. She states that once she gets the NGT she usually feels better. Allergies and Home Medications Allergies Coded Allergies: Iodinated Contrast Media (Verified Allergy, Mild, HIVES, 12/08/19) linezolid (Verified Allergy, Mild, HIVE, 12/08/19) Home Medications Acetaminophen 325 Mg Tablet, 975 MG PO TID Prescribed by: LUKAS NUNES on 10/25/19 1146 Albuterol Sulfate 2.5 Mg/3 Ml Vial.neb, 2.5 MG INH QID, (Reported) Albuterol/Ipratropium 4 Gm Aero, 1 PUFF IH QID, (Reported) Alprazolam 1 Mg Tablet, 1 MG PO UD, (Reported) Aspirin 81 Mg Tablet.dr, 81 MG PO DAILY@1400, (Reported) Atorvastatin Calcium 10 Mg Tablet, 10 MG PO HS, (Reported) Cyanocobalamin 1,000 Mcg/Ml Inj, 1,000 MCG IM ONCE, (Reported) Cyclobenzaprine HCl 10 Mg Tablet, 10 MG PO TID PRN for MUSCLE SPASMS, (Reported) Dicyclomine HCl 20 Mg Tablet, 10 MG PO BID, (Reported) TAKE 1/2 OF 20MG TAB Fluticasone/Salmeterol 1 Each Blst.w.dev, 1 PUFF IH BID, (Reported) Furosemide 20 Mg Tablet, 20 MG PO DAILY, (Reported) Insulin Glargine,Hum.rec.anlog 100 Unit/1 Ml Insuln.pen, 10 UNIT SQ HS, (Reported) Meclizine HCl 25 Mg Tablet, 25 MG PO TID PRN for DIZZINESS, (Reported) Metformin HCl 1,000 Mg Tablet, 1,000 MG PO BID Hold for 48 hours Prescribed by: JUAN LICONA on 03/19/19 0839 Montelukast Sodium 10 Mg Tablet, 10 MG PO DAILY@1400, (Reported) Omeprazole 20 Mg Capsule.dr, 20 MG PO BID, (Reported) Oxycodone HCl 30 Mg Tablet, 30 MG PO Q6H, (Reported) Potassium Chloride 10 Meq Tab.er.prt, 10 MEQ PO TID, (Reported) Prednisone 20 Mg Tab, 40 MG PO DAILY Prescribed by: MARLEY PAYTON on 12/21/19 1019 Pregabalin 150 Mg Capsule, 150 MG PO BID, (Reported) Quetiapine Fumarate 50 Mg Tablet, 50 MG PO HS, (Reported) Ranolazine 500 Mg Tab.er.12h, 500 MG PO BID, (Reported) Ropinirole HCl 1 Mg Tablet, 1 MG PO HS, (Reported) Topiramate 50 Mg Tablet, 50 MG PO DAILY, (Reported) Patient Home Medication List Home Medication List Reviewed: Yes Past Labidzj-Ngqwqr-Refwrk Hx Patient Social History Alcohol Use: Denies Use Number of Drinks Today: GG Recreational Drug Use: No Smoking Status: Current Everyday Smoker Type Used: Cigarettes 2nd Hand Smoke Exposure: Yes Recent Foreign Travel: No Contact w/Someone Who Travel: No Recent Infectious Disease Expo: No Recent Hopitalizations: Yes (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) Immunizations Up To Date Tetanus Booster (TDap): Unknown Date of Pneumonia Vaccine: Sep 16, 2019 Date of Influenza Vaccine: Sep 15, 2020 Seasonal Allergies Seasonal Allergies: Yes Surgeries History of Surgeries: Yes (several exploratomy laparotomies, hernia with mesh, several lysis) Surgeries: Appendectomy, Coronary Stent, Gallbladder, 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, Vascular Surgery Respiratory History of Respiratory Disorde: Yes (wears 3L NC at all times) Respiratory Disorders: Chronic Bronchitis, COPD, Emphysema Cardiovascular History of Cardiac Disorders: Yes (CHF) Cardiac Disorders: Chronic Edema/Swelling, High Cholesterol, Hypertension Neurological History of Neurological Disord: Yes Neurological Disorders: Headaches /Migraines, Neuropathy 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 System Hx 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 Disorders: No 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 Genitourinary History of Genitourinary Disor: No Gastrointestinal History of Gastrointestinal Di: Yes (SEVERAL BOWEL OBSTRUCTIONS, chronic abd pa in) Gastrointestinal Disorders: Obstructive Bowel, Ulcer Musculoskeletal History of Musculoskeletal Dis: Yes Musculoskeletal Disorders: Arthritis, Fibromyalgia, Chronic Back Pain Endocrine History of Endocrine Disorders: Yes Endocrine Disorders: Diabetes, Non-Insulin dep HEENT History of HEENT Disorders: Yes (GLASSES) Loss of Vision: Denies Hearing Impairment: Denies Cancer History of Cancer: No Psychosocial History of Psychiatric Problem: Yes Behavioral Health Disorders: Anxiety, Depression Integumentary History of Skin or Integumenta: Yes (CHRONIC ABDOMINAL WOUND--MRSA) Skin/Integumentary Disorders: Recent Skin Changes Blood Transfusions History of Blood Disorders: No Adverse Reaction to a Blood Tr: No (N/A) Family Medical History Significant Family History: Diabetes, Hypertension, Other Conditions/Hx (Mother from pneumonia last year) Family Medial History: Colon cancer G8 BROTHER (PANCREATIC) Dementia 19 MOTHER G8 BROTHER Hypertension 19 MOTHER Myocardial infarction G8 BROTHER Review of Systems-General Constitutional: malaise, weakness EENTM: No blurred vision, No double vision, No mouth pain, No mouth swelling, No epistaxis Respiratory: cough, dyspnea on exertion, short of breath, other (pt has severe COPD) Cardiovascular: No chest pain, No palpitations Gastrointestinal: abdominal pain, loss of appetite, nausea, vomiting Genitourinary: No dysuria, No frequency, No hematuria Musculoskeletal: back pain, joint pain, joint swelling, muscle stiffness Skin: No change in color, No change in hair/nails Psychiatric/Neurological: Anxiety, Depressed; Denies Seizure, Denies Tremors Other pt denies any hx of abnormal bleeding or bruising Physical Exam-General Problems Physical Exam Vital Signs Vital Signs - First Documented 01/17/20 08:40 Temp 35.5 Pulse 74 Resp 23 B/P (MAP) 142/76 (98) Pulse Ox 98 O2 Delivery Room Air Capillary Refill : Less Than 3 Seconds General Appearance: WD/WN, moderate distress Eyes: Bilateral Eye PERRL, Bilateral Eye EOMI HEENT: pharynx normal; No scleral icterus (R), No scleral icterus (L) Neck: supple, normal inspection Respiratory: chest non-tender, no respiratory distress, no accessory muscle use, decreased breath sounds (at bases), crackles, wheezing (expiratory) Cardiovascular: regular rate, rhythm, no murmur Gastrointestinal: no organomegaly, abnormal bowel sounds (decreased), distended, tenderness, other (pt has large midline scar, with tissue pulled back around it) Back: no CVA tenderness, no vertebral tenderness Extremities: no pedal edema, no calf tenderness, normal capillary refill Neurologic/Psychiatric: probate clerk II-XII nml as tested, alert, normal mood/affect, oriented x 3 Skin: normal color, warm/dry Lymphatic: no adenopathy (neck, axilla or groin) Data Review Labs Laboratory Tests 01/17/20 08:52: White Blood Count 18.1H, Red Blood Count 4.84, Hemoglobin 13.3, Hematocrit 41, Mean Corpuscular Volume 84, Mean Corpuscular Hemoglobin 28, Mean Corpuscular Hemoglobin Concent 33, Red Cell Distribution Width 14.3, Platelet Count 364, Mean Platelet Volume 10.5H, Neutrophils (%) (Auto) 88H, Lymphocytes (%) (Auto) 7L, Monocytes (%) (Auto) 4, Eosinophils (%) (Auto) 0, Basophils (%) (Auto) 0, Neutrophils # (Auto) 16.0H, Lymphocytes # (Auto) 1.3, Monocytes # (Auto) 0.8, Eosinophils # (Auto) 0.0, Basophils # (Auto) 0.0, Neutrophils % (Manual) 87, Lymphocytes % (Manual) 6, Monocytes % (Manual) 7, Eosinophils % (Manual) 0, Basophils % (Manual) 0, Band Neutrophils 0, Blood Morphology Comment NORMAL, Sodium Level 136, Potassium Level 4.5, Chloride Level 98, Carbon Dioxide Level 26, Anion Gap 12, Blood Urea Nitrogen 18, Creatinine 0.89, Estimat Glomerular Filtration Rate > 60, BUN/Creatinine Ratio 20, Glucose Level 217H, Lactic Acid Level 0.60, Calcium Level 9.3, Corrected Calcium 9.3, Magnesium Level 1.7, Total Bilirubin 0.4, Aspartate Amino Transf (AST/SGOT) 15, Alanine Aminotransferase (ALT/SGPT) 7, Alkaline Phosphatase 132, C-Reactive Protein High Sensitivity 0.30, Total Protein 7.1, Albumin 4.0, Lipase 56 01/17/20 09:05: Urine Color AMBERH, Urine Clarity CLEAR, Urine pH 6.0, Urine Specific Emm[place] >=1.030, Urine Protein 1+H, Urine Glucose (UA) NEGATIVE, Urine Ketones NEGATIVE, Urine Nitrite NEGATIVE, Urine Bilirubin 2+H, Urine Urobilinogen 1.0, Urine Leukocyte Esterase NEGATIVE, Urine RBC (Auto) NEGATIVE, Urine RBC RARE, Urine WBC RARE, Urine Squamous Epithelial Cells 5-10, Urine Crystals NONE, Urine Bacteria TRACE, Urine Casts PRESENT, Urine Hyaline Casts 0-2H, Urine Mucus MODERATEH, Urine Culture Indicated NO Radiology Date of Exam:01/17/20 CT ABDOMEN/PELVIS WO PROCEDURE: CT abdomen and pelvis without contrast. TECHNIQUE: Multiple contiguous axial images were obtained through the abdomen and pelvis without the use of intravenous contrast. Auto Exposure Controls were utilized during the CT exam to meet ALARA standards for radiation dose reduction. INDICATION: Nausea, vomiting and diarrhea. Comparison made with prior examination 10/24/2019. FINDINGS: The heart size is normal. The lung bases are clear. The liver is normal in size and without focal lesions. Gallbladder is surgically absent. Spleen is normal. Pancreas and adrenal glands are unremarkable. Kidneys are normal in appearance. There is marked distention of the stomach and proximal small bowel compatible with small bowel obstruction. There are some decompressed distal small bowel loops suggesting a transition zone in the mid ileum. There is no free air. There is trace ascites. There is Sheth catheter in the bladder. There is no pelvic mass or adenopathy. There are degenerative changes in the spine. IMPRESSION: Findings compatible with a small bowel obstruction with transition zone likely in the mid to proximal ileum. No other acute abnormality in the abdomen or pelvis. Dictated by: Dictated on workstation # [id number] Dict: 01/17/20 0938 Trans: 01/17/20 1004 [id number] Interpreted by: HARRY PATEL MD Electronically signed by: HARRY PATEL MD 01/17/20 1004 Assessment/Plan Assessment/Plan Assessment/Plan PSBO COPD DM I reviewed the CT scan myself and read the radiologist's report; I agree with partial bowel obstruction and somewhere mid-ileum it does go from dilated to non-dilated. However; her stomach is severely dilated and nursing was about to place NGT when I was seeing pt. Pt will need the NGT, IV fluids, NPO and was told to ambulate and use IS. She can chew gum; which helps with return of bowel function. No indication for surgery at this time and will try to avoid this unless it is last option; pt is poor surgical candidate and abdomen is most likely hostile. YVONNE TAYLOR DO Jan 17, 2020 11:30
--- NOTE | 2020-01-17 11:51 | NUR ---
APROX 650 ML GASTRIC CONTENTS SUCTIONED FROM PT PRIOR TO ADMISSION TO FLOOR. SLIGHT RED TINGED FLUID NOTED COMING FROM NG TUBE. DR. MCMANUS IN ROOM AND REPORTS NO CONCERNS RELATED TO NG FLUID COLOR.
[2020-01-17 11:56] VITALS: BP 168/67
--- NOTE | 2020-01-17 12:30 | NUR ---
REGI PAL admitted to room 413-1, with an admitting diagnosis of SBO, on 01/17/20 from ED via stretcher, accompanied by staff. REGI PAL introduced to surroundings, call light, bed controls, phone, TV, temperature control, lights, meal times, smoking policy, visitor policy, side rail policy, bathrooms and showers. Patient Rights given to patient in the handbook. REGI PAL verbalizes understanding that [facility] is not responsible for the loss or damage to any personal effects or valuables that are kept in the patients possession during their hospitalization. The following Patient Care Plans were discussed with the patient: Discharge Planning, medications, dehydration, and pain management. REGI PAL verbalizes understanding of Interdisciplinary Patient Education. Patient and/or family were informed about the Rapid Response Team and its purpose.
[2020-01-17] MEDS: inSUlin ASPART (NovoLOG) 1 UNIT/0.01 ML (CHARGE PER UNIT) SC SCH ×2 (12:34→18:13)
[2020-01-17] MEDS: ONDANSETRON 4 MG/2 ML (SDV) Z0FRAN IV PRN ×3 (12:34→21:28)
[2020-01-17] MEDS: LACTATED RINGERS 1,000 ML IV SCH ×2 (12:39→16:15)
--- NOTE | 2020-01-17 14:10 | History & Physical-Hospitalist ---
History of Present Illness HPI/Chief Complaint Vira Irizarry is a 69-year-old female with past medical history of hypertension, diabetes, coronary artery disease, hyperlipidemia, anxiety, COPD, GERD, restless leg syndrome, who presented with abdominal pain. She reports that the pain is severe and diffuse. She reports that she has been nauseous and vomiting. She reports that all her symptoms started after she ate cabbage last night. She had a similar episode previously when she ate broccoli and developed a small bowel obstruction. She denies any fevers or chills. She denies any hematemesis. She has not been passing gas or had a bowel movement. Source: patient Exam Limitations: no limitations Date Seen 01/17/20 Time Seen by a Provider: 14:00 Attending Physician Lukas Nunes MD PCP Addy Knight DO Referring Physician Date of Admission Jan 17, 2020 at 10:08 Home Medications & Allergies Home Medications Reviewed patient Home Medication Reconciliation performed by pharmacy medication reconciliations certified medical technician assistant and/or nursing. Patients Allergies have been reviewed. Allergies Allergies Coded Allergies Iodinated Contrast Media (Verified Allergy, Mild, HIVES, 12/08/19) linezolid (Verified Allergy, Mild, HIVE, 12/08/19) Past Cdpfzav-Hniyjm-Fhyjho Hx Past Med/Social Hx: Reviewed Nursing Past Med/Soc Hx Patient Social History Alcohol Use: Denies Use Number of Drinks Today: GG Alcohol Beverage of Choice: Rum, Whiskey, [place], Vodka Recreational Drug Use: No Smoking Status: Current Everyday Smoker Type Used: Cigarettes 2nd Hand Smoke Exposure: Yes Recent Foreign Travel: No Contact w/other who traveled: No Recent Hopitalizations: Yes (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) Recent Infectious Disease Expo: No Immunizations Up To Date Tetanus Booster (TDap): Unknown Date of Pneumonia Vaccine: Sep 16, 2019 Date of Influenza Vaccine: Sep 15, 2019 Seasonal Allergies Seasonal Allergies: Yes Past Medical History Surgeries: Appendectomy, Coronary Stent, Gallbladder, 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, Vascular Surgery Respiratory: COPD Currently Using CPAP: No Currently Using BIPAP: No Cardiac: Chronic Edema/Swelling, High Cholesterol, Hypertension Neurological: Headaches /Migraines, Neuropathy 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: No 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 Gastrointestinal: Obstructive Bowel, Ulcer Musculoskeletal: Arthritis, Fibromyalgia, Chronic Back Pain Endocrine: Diabetes, Non-Insulin dep Loss of Vision: Denies Hearing Impairment: Denies Psychosocial: Anxiety, Depression Skin/Integumentary: Recent Skin Changes History of Blood Disorders: No Adverse Reaction to Blood [place]: No (N/A) Family History Reviewed Nursing Family Hx Colon cancer G8 BROTHER (PANCREATIC) Dementia 19 MOTHER G8 BROTHER Hypertension 19 MOTHER Myocardial infarction G8 BROTHER Diabetes, Hypertension, Other Conditions/Hx (Mother from pneumonia last year) Review of Systems Constitutional: no symptoms reported EENTM: no symptoms reported Respiratory: no symptoms reported Cardiovascular: no symptoms reported Gastrointestinal: abdominal pain, nausea, vomiting Genitourinary: no symptoms reported Musculoskeletal: no symptoms reported Skin: no symptoms reported Psychiatric/Neurological: No Symptoms Reported Physical Exam Physical Exam Vital Signs Vital Signs - First Documented 01/17/20 08:40 Temp 35.5 Pulse 74 Resp 23 B/P (MAP) 142/76 (98) Pulse Ox 94 O2 Delivery Nasal Cannula O2 Flow Rate 2.00 Capillary Refill : Less Than 3 Seconds Height, Weight, BMI Height: 5'1.00" Weight: 162lbs. 0.0oz. 73.039997ht; 31.17 BMI Method:Stated General Appearance: No Apparent Distress, Obese, Other (NG tube in place) Neck: Normal Inspection, Supple Respiratory: Lungs Clear, Normal Breath Sounds, No Respiratory Distress Cardiovascular: Regular Rate, Rhythm, No Edema, No Murmur Gastrointestinal: Soft, Abnormal Bowel Sounds (Hypoactive), Distended, T enderness Extremity: Normal Inspection, Non Tender, No Pedal Edema Neurologic/Psychiatric: Alert, Oriented x3, No Motor/Sensory Deficits, Normal Mood/Affect Skin: Normal Color, Warm/Dry Results Results/Procedures Labs Laboratory Tests 01/17/20 08:52 01/18/20 04:00 Patient resulted labs reviewed. Imaging: Reviewed Imaging Report Assessment/Plan Admission Diagnosis Small bowel obstruction Admission Status: Inpatient Order (span 2 midnights) Reason for Inpatient Admission: Small bowel obstruction requiring further treatment and evaluation Assessment and Plan Small bowel obstruction CT abdomen revealed small bowel obstruction Surgery consulted, appreciate assistance Nothing by mouth IV fluids NG to suction Ambulation Incentive spirometry Avoid surgery if at all possible T2DM Sliding scale insulin COPD without exacerbation MAT protocol Hypertension Coronary artery disease Hyperlipidemia Anxiety GERD Restless leg syndrome Resume home meds when able DVT prophylaxis: Lovenox Diagnosis/Problems Diagnosis/Problems (1) Small bowel obstruction Status: Acute (2) COPD without exacerbation Status: Chronic (3) T2DM (type 2 diabetes mellitus) Status: Chronic Clinical Quality Measures DVT/VTE Risk/Contraindication: Risk Factor Score Per Nursin RFS Level Per Nursing on Admit: 4+=Very High LUKAS NUNES MD Jan 17, 2020 14:10
[2020-01-17] MEDS: fentaNYL INJECTION 100 MCG/2 ML AMP IV PRN ×3 (14:57→21:28)
[2020-01-17 16:00] VITALS: BP 167/76
[2020-01-17 20:00] VITALS: BP 135/59
[2020-01-17 23:51] VITALS: BP 144/63
[2020-01-18] MEDS: ONDANSETRON 4 MG/2 ML (SDV) Z0FRAN IV PRN ×6 (01:44→23:47)
[2020-01-18] MEDS: fentaNYL INJECTION 100 MCG/2 ML AMP IV PRN ×7 (01:44→23:47)
[2020-01-18] MEDS: LACTATED RINGERS 1,000 ML IV SCH ×3 (01:53→20:03)
[2020-01-18 04:18] VITALS: BP 140/72
[2020-01-18 05:08] LABS: BASOPHILS % (AUTO) 0 % (0-10); EOSINOPHILS % (AUTO) 0 % (0-10); HEMATOCRIT 34 % (35-52); LYMPHOCYTES # (AUTO) 1.7 X 10^3 (1.0-4.0); LYMPHOCYTES % (AUTO) 14 % (12-44); MEAN CORPUSCULAR HEMOGLOBIN 27 PG (25-34); MEAN CORPUSCULAR HGB CONC 32 G/DL (32-36); MEAN CORPUSCULAR VOLUME 85 FL (80-99); MEAN PLATELET VOLUME 10.2 FL (7.4-10.4); MONOCYTES # (AUTO) 0.9 X 10^3 (0.0-1.0); MONOCYTES % (AUTO) 7 % (0-12); NEUTROPHILS # (AUTO) 9.7 X 10^3 (1.8-7.8); NEUTROPHILS % (AUTO) 79 % (42-75); PLATELET COUNT 283 10^3/uL (130-400); RED CELL DISTRIBUTION WIDTH 14.2 % (10.0-14.5); WHITE BLOOD COUNT 12.3 10^3/uL (4.3-11.0)
[2020-01-18 05:37] LABS: ALANINE AMINOTRANSFERASE < 6 U/L (0-55); ALBUMIN 3.3 GM/DL (3.2-4.5); ALKALINE PHOSPHATASE 96 U/L (40-136); BILIRUBIN,TOTAL 0.3 MG/DL (0.1-1.0); BUN/CREATININE RATIO 22; CALCIUM 8.4 MG/DL (8.5-10.1); CARBON DIOXIDE 29 MMOL/L (21-32); CHLORIDE 100 MMOL/L (98-107); CREATININE SERUM 0.87 MG/DL (0.60-1.30); GFR ESTIMATED > 60; GLUCOSE 148 MG/DL (70-105); POTASSIUM 3.6 MMOL/L (3.6-5.0); SODIUM 139 MMOL/L (135-145); TOTAL PROTEIN 5.9 GM/DL (6.4-8.2)
[2020-01-18] MEDS: inSUlin ASPART (NovoLOG) 1 UNIT/0.01 ML (CHARGE PER UNIT) SC SCH ×5 (05:58→23:51)
[2020-01-18 08:14] VITALS: BP 143/65
--- NOTE | 2020-01-18 08:20 | NUR ---
FENTANYL 25 AND ZOFRAN 4 IV FOR PAIN AND NAUSEA.
--- NOTE | 2020-01-18 09:18 | NUR ---
DR. NUNES NOTIFIED PT NPO WITH NG AND NAUSEATED AND UNABLE TO TOLERATE CLAMPING NG FOR PO MEDS. ORDER TO HOLD FOR NOW.
[2020-01-18] MEDS: ASPIRIN E.C. 81 MG (ECOTRIN) TAB PO SCH (09:19)
[2020-01-18] MEDS: PREGABALIN 150 MG (LYRICA) CAPSULE PO SCH ×2 (09:19→22:19)
[2020-01-18] MEDS: RANOLAZINE ER 500 MG TAB (RANEXA) PO SCH ×2 (09:19→21:00)
--- NOTE | 2020-01-18 10:09 | Progress Note - Surgery ---
[facility] 01/18/20 1009: Subjective Date Seen by a Provider: Jan 18, 2020 Time Seen by a Provider: 09:20 Subjective/Events-last exam Mrs. Andrade states that her abdomen is feeling much better today. She denies fullness or pain being present. She does state that she has a severe headache and slept poorly due to noise coming from the NG Tube. She states that she remained NPO and questioned the duration of her stay. Review of Systems HEENT: Head Aches; No Visual Changes, No Ear Pain, No Dysphasia, No Sore Throat Pulmonary: No Dyspnea, No Cough, No Pleuritic Chest Pain Cardiovascular: No: Chest Pain, Palpitations, Edema, Lt Headedness Gastrointestinal: No: Nausea, Vomiting, Abdominal Pain, Diarrhea, Constipation Genitourinary: No Dysuria, No Frequency, No Incontinence, No Hematuria Musculoskeletal: No: neck pain, shoulder pain, arm pain, back pain, hand pain Focused Exam Lactate Level 01/17/20 08:52: Lactic Acid Level 0.60 Respiratory: Lungs Clear, Normal Breath Sounds, No Accessory Muscle Use, No Respiratory Distress Cardiovascular: Regular Rate, Rhythm, No Edema, No Gallop, No Murmur, Normal Peripheral Pulses Peripheral Pulses: 2+ Carotid (R), 2+ Carotid (L), 2+ Dorsalis Pedis (R), 2+ Left Dors-Pedis (L), 2+ Radial Pulses (R), 2+ Radial Pulses (L) Skin: normal color, warm/dry Objective Exam Vital Signs Date Time Temp Pulse Resp B/P (MAP) Pulse Ox O2 Delivery O2 Flow Rate FiO2 01/18/20 08:14 36.2 75 18 143/65 (91) 98 Nasal Cannula 3.00 01/18/20 07:18 58 01/18/20 04:18 36.1 76 20 140/72 (94) 93 Nasal Cannula 3.00 01/18/20 00:38 75 01/17/20 23:51 36.5 86 21 144/63 (90) 91 Nasal Cannula 3.00 01/17/20 20:00 36.3 86 22 135/59 (84) 95 Nasal Cannula 3.00 01/17/20 20:00 Nasal Cannula 3.00 01/17/20 18:59 70 01/17/20 16:00 36.5 83 19 167/76 (106) 96 Nasal Cannula 3.00 01/17/20 13:00 77 01/17/20 11:56 36.4 82 20 168/67 (100) 91 Nasal Cannula 3.00 01/17/20 11:56 36.4 82 20 168/67 91 Nasal Cannula 3.00 01/17/20 11:51 76 16 151/70 96 Nasal Cannula 2.00 I & O 01/18/20 07:00 Intake Total 2000 ml Output Total 3100 ml Balance -1100 ml Capillary Refill : Less Than 3 Seconds General Appearance: WD/WN, Mild Distress HEENT: PERRL/EOMI, Pharynx Normal, Moist Mucous Membranes Neck: Non Tender, Supple Respiratory: Lungs Clear, Normal Breath Sounds, No Accessory Muscle Use, No Respiratory Distress Cardiovascular: Regular Rate, Rhythm, No Edema, No Gallop, No Murmur, Normal Peripheral Pulses Peripheral Pulses: 2+ Carotid (R), 2+ Carotid (L), 2+ Dorsalis Pedis (R), 2+ Left Dors-Pedis (L), 2+ Radial Pulses (R), 2+ Radial Pulses (L) Gastrointestinal: non tender, soft, no organomegaly, no pulsatile mass, abnormal bowel sounds (decreased), distended (mild ), other (pt has large midline scar, with tissue pulled back around it) Extremity: Normal Capillary Refill, Normal Inspection, Non Tender, No Calf Tenderness, No Pedal Edema Neurologic/Psychiatric: Alert, Oriented x3, No Motor/Sensory Deficits, Normal Mood/Affect, evp [place] II-XII Norm as Tested Skin: Normal Color, Warm/Dry Lymphatic: No Adenopathy Results Lab Laboratory Tests 01/17/20 12:20: Glucometer 199H 01/17/20 17:52: Glucometer 136H 01/17/20 23:53: Glucometer 166H 01/18/20 04:00: White Blood Count 12.3H, Red Blood Count 4.02L, Hemoglobin 11.0L, Hematocrit 34L , Mean Corpuscular Volume 85, Mean Corpuscular Hemoglobin 27, Mean Corpuscular Hemoglobin Concent 32, Red Cell Distribution Width 14.2, Platelet Count 283, Mean Platelet Volume 10.2, Neutrophils (%) (Auto) 79H, Lymphocytes (%) (Auto) 14, Monocytes (%) (Auto) 7, Eosinophils (%) (Auto) 0, Basophils (%) (Auto) 0, Neutrophils # (Auto) 9.7H, Lymphocytes # (Auto) 1.7, Monocytes # (Auto) 0.9, Eosinophils # (Auto) 0.0, Basophils # (Auto) 0.0, Sodium Level 139, Potassium Level 3.6, Chloride Level 100, Carbon Dioxide Level 29, Anion Gap 10, Blood Urea Nitrogen 19H, Creatinine 0.87, Estimat Glomerular Filtration Rate > 60, BUN/Creatinine Ratio 22, Glucose Level 148H, Calcium Level 8.4L, Corrected Calcium 9.0, Total Bilirubin 0.3, Aspartate Amino Transf (AST/SGOT) 15, Alanine Aminotransferase (ALT/SGPT) < 6, Alkaline Phosphatase 96, Total Protein 5.9L, Albumin 3.3 Assessment/Plan Assessment/Plan Assessment/Plan SBO: - Continue NPO and bowel rest - NG suction: drained 2200 mL 01/16; 350 01/17 - IVF NS 115 mL/hr COPD: - MAT protocol - O2 Stats Q8H DM: - Continue home med - Finger Glucose ROLON: - Ibuprofen PRN Q6H Clinical Quality Measures DVT/VTE Risk/Contraindication: Risk Factor Score Per Nursin RFS Level Per Nursing on Admit: 4+=Very High GALLO TAYLOR DO 01/18/20 1347: Subjective Time Seen by a Provider: 13:29 Subjective/Events-last exam Pt seen and examined, feels better today but no flatus or BM. Denies N/V. Review of Systems Pulmonary: No Dyspnea, No Cough Cardiovascular: No: Chest Pain, Palpitations Gastrointestinal: Abdominal Pain (very minimal); No: Nausea, Vomiting Objective Exam General Appearance: No Apparent Distress, WD/WN, Obese HEENT: Moist Mucous Membranes Respiratory: Lungs Clear, Normal Breath Sounds, No Accessory Muscle Use Cardiovascular: Regular Rate, Rhythm, No Murmur Gastrointestinal: soft, abnormal bowel sounds (decreased), distended (may be her normal), tenderness (mild with palpation) Assessment/Plan Assessment/Plan Assessment/Plan PSBO- continue NGT, NPO, IV fluids. Await return of bowel fxn; encouraged ambulation, chew gum and IS use. DM, COPD - continue home meds and O2 as needed. Supervisory-Addendum Brief Verification & Attestation Participated in pt care: history, MDM, physical Personally performed: exam, history, MDM Care discussed with: Medical Student Procedures: n/a Verification and Attestation of Medical Student E/M Service A medical student performed and documented this service. I then reviewed and verified all information documented by the medical student and made modifications to such information, when appropriate. I personally performed a physical exam, medical decision making and then discussed any differences between the notes and made revisions as necessary to create one note. Gallo Taylor , 01/18/20 , 13:46 [facility] Jan 18, 2020 10:09 GALLO TAYLOR DO Jan 18, 2020 13:47
--- NOTE | 2020-01-18 10:30 | NUR ---
DR. NUNES NOTIFIED THAT ICU REPORTS PT INTERMITTENTLY HAS HR IN 40'S. ORDERS REC'D.
--- NOTE | 2020-01-18 10:45 | NUR ---
DR. ARZATE NOTIFIED OF CONSULT.
--- NOTE | 2020-01-18 11:32 | NUR ---
EKG AND ECHO DONE AT BEDSIDE.
[2020-01-18 12:13] VITALS: BP 182/72
--- NOTE | 2020-01-18 12:22 | Progress Note - Hospitalist ---
Subjective HPI/CC On Admission Date Seen by Provider: Jan 18, 2020 Time Seen by Provider: 10:40 Abdominal pain Subjective/Events-last exam She reports feeling better today. She denies any abdominal pain. She denies any nausea or vomiting. She is not passing any gas and has not had any bowel movements. She denies any fevers or chills. She denies any chest pain or shortness of breath. Focused Exam Lactate Level 01/17/20 08:52: Lactic Acid Level 0.60 Objective Exam Vital Signs Vital Signs Date Time Temp Pulse Resp B/P (MAP) Pulse Ox O2 Delivery O2 Flow Rate FiO2 01/18/20 12:13 36.6 64 22 182/72 (108) 97 Nasal Cannula 3.00 Capillary Refill : Less Than 3 SecondsLess Than 3 Seconds General Appearance: No Apparent Distress, Obese HEENT: Other (NG tube in place) Respiratory: Lungs Clear, Normal Breath Sounds, No Respiratory Distress Cardiovascular: Regular Rate, Rhythm, No Edema, No Murmur Gastrointestinal: Non Tender, Soft, Abnormal Bowel Sounds (Hypoactive) Extremity: Normal Inspection, Non Tender, No Pedal Edema Neurologic/Psychiatric: Alert, Oriented x3, No Motor/Sensory Deficits, Normal Mood/Affect Skin: Normal Color, Warm/Dry Results/Procedures Lab Laboratory Tests 01/18/20 04:00 Patient resulted labs reviewed. Assessment/Plan Assessment and Plan Assess & Plan/Chief Complaint Small bowel obstruction CT abdomen revealed small bowel obstruction Surgery consulted, appreciate assistance Nothing by mouth Continue IV fluids Continue NG to suction Continue ambulation Incentive spirometry Will avoid surgery if at all possible Bradycardia Reportedly heart rates dropping into the 30s overnight Follows with Dr. Smith Consult cardiology, appreciate assistance T2DM Sliding scale insulin COPD without exacerbation MAT protocol Hypertension Coronary artery disease Hyperlipidemia Anxiety GERD Restless leg syndrome Resume home meds when able DVT prophylaxis: Lovenox Diagnosis/Problems Diagnosis/Problems (1) Small bowel obstruction Status: Acute (2) Bradycardia Status: Acute (3) COPD without exacerbation Status: Chronic (4) T2DM (type 2 diabetes mellitus) Status: Chronic Clinical Quality Measures DVT/VTE Risk/Contraindication: Risk Factor Score Per Nursin RFS Level Per Nursing on Admit: 4+=Very High LUKAS NUNES MD Jan 18, 2020 12:22
[2020-01-18] MEDS: ENOXAPARIN 40 MG/0.4 ML (LOVENOX) SYR SC SCH (12:31)
--- NOTE | 2020-01-18 12:35 | NUR ---
FENTANYL 25 AND ZOFRAN 4 IV FOR PAIN AND NAUSEA.
[2020-01-18] MEDS ORDERED: hydrALAZINE (APESOLINE) 20 MG/ML VIAL IV PRN (15:30)
[2020-01-18 16:00] VITALS: BP 150/68
--- NOTE | 2020-01-18 16:44 | NUR ---
FENTANYL 50 AND ZOFRAN 4 FOR PAIN AND NAUSEA.
--- NOTE | 2020-01-18 16:49 | Consultation-Cardiology ---
HPI-Cardiology Cardiology Consultation: Date of Consultation 01/18/20 Time Seen by a Provider: 14:30 Date of Admission Attending Physician Lukas Nunes MD Admitting Physician Addy Kngiht DO Consulting Physician CURT ARZATE MD, MA, FACP, FACC, FSCAI, CCDS Physician requesting Cardiology consultation: Dr Nunes HPI: Chief Complaint: Reason for Cardiology consultation: Heart rate sometimes drops into the 30s HPI 69 yo woman admitted on 01/17/20 with abdominal pain and nausea/vomiting who was diagnosed with SBO and has been managed conservatively. Feels better today. Has been on telemetry. iv technician has noted heart rate to drop momentarily to the mid or high 30s. Pt does not report cp or palp or syncope or shortness of breath or leg swelling Review of Systems-Cardiology Review of Systems Constitutional: malaise, tiredness; No weight loss, No weight gain Eyes: No vision change Ears/Nose/Throat: No ear discharge, No nasal drainage, No recent hearing loss Respiratory: As described under HPI Cardiovascular: As described under HPI Gastrointestinal: As described under HPI Genitourinary: No dysuria, No hematuria, No urine frequency changes Musculoskeletal: No back pain, No joint pain Skin: No rash, No ulcerations Psychiatric/Neurological: No seizure, No focal weakness, No syncope Hematologic: No bleeding abnormalities All Other Systems Reviewed Negative Unless Noted: Yes [id number] Hx Patient Social History Alcohol Use: Denies Use Recreational Drug Use: No Smoking Status: Current Everyday Smoker Type Used: Cigarettes 2nd Hand Smoke Exposure: Yes Recent Foreign Travel: No Recent Infectious Disease Expo: No Hospitalization with Isolation: Denies Immunizations Up To Date Tetanus Booster (TDap): Unknown Date of Pneumonia Vaccine: Sep 16, 2019 Date of Influenza Vaccine: Sep 15, 2019 Past Medical History PMH As described under Assessment. Family Medical History Family History: Colon cancer G8 BROTHER (PANCREATIC) Dementia 19 MOTHER G8 BROTHER Hypertension 19 MOTHER Myocardial infarction G8 BROTHER Allergies and Home Medications Allergies Coded Allergies: Iodinated Contrast Media (Verified Allergy, Mild, HIVES, 12/08/19) linezolid (Verified Allergy, Mild, HIVE, 12/08/19) Home Medications Acetaminophen 325 Mg Tablet, 975 MG PO TID Prescribed by: LUKAS NUNES on 10/25/19 1146 Albuterol Sulfate 2.5 Mg/3 Ml Vial.neb, 2.5 MG INH QID, (Reported) Albuterol/Ipratropium 4 Gm Aero, 1 PUFF IH QID, (Reported) Alprazolam 1 Mg Tablet, 0.5 MG PO UD, (Reported) Aspirin 81 Mg Tablet.dr, 81 MG PO DAILY@1400, (Reported) Atorvastatin Calcium 10 Mg Tablet, 10 MG PO HS, (Reported) Cyanocobalamin 1,000 Mcg/Ml Inj, 1,000 MCG IM ONCE, (Reported) Cyclobenzaprine HCl 10 Mg Tablet, 10 MG PO TID PRN for MUSCLE SPASMS, (Reported) Dicyclomine HCl 20 Mg Tablet, 20 MG PO DAILY, (Reported) Fluticasone/Salmeterol 1 Each Blst.w.dev, 1 PUFF IH BID, (Reported) Furosemide 20 Mg Tablet, 20 MG PO DAILY, (Reported) Insulin Glargine,Hum.rec.anlog 100 Unit/1 Ml Insuln.pen, 10 UNIT SQ HS, (Reported) Meclizine HCl 25 Mg Tablet, 25 MG PO TID PRN for DIZZINESS, (Reported) Metformin HCl 1,000 Mg Tablet, 1,000 MG PO BID Hold for 48 hours Prescribed by: JUAN SMITH on 03/19/19 0839 Montelukast Sodium 10 Mg Tablet, 10 MG PO DAILY@1400, (Reported) Omeprazole 20 Mg Capsule.dr, 20 MG PO BID, (Reported) Oxycodone HCl 30 Mg Tablet, 30 MG PO Q6H, (Reported) Potassium Chloride 10 Meq Tab.er.prt, 10 MEQ PO TID, (Reported) Prednisone 20 Mg Tab, 40 MG PO DAILY Prescribed by: MARLEY PAYTON on 12/21/19 1019 Pregabalin 150 Mg Capsule, 150 MG PO BID, (Reported) Quetiapine Fumarate 50 Mg Tablet, 50 MG PO HS, (Reported) Ranolazine 500 Mg Tab.er.12h, 500 MG PO BID, (Reported) Ropinirole HCl 1 Mg Tablet, 1 MG PO HS, (Reported) Patient Home Medication List Home Medication List Reviewed: Yes Physical Exam-Cardiology Physical Exam Vital Signs/I&O 01/18/20 01/18/20 01/18/20 01/18/20 07:18 08:00 08:14 12:13 Temp 36.2 36.6 Pulse 58 75 64 Resp 18 22 B/P (MAP) 143/65 (91) 182/72 (108) Pulse Ox 98 97 O2 Delivery Nasal Cannula Nasal Cannula Nasal Cannula O2 Flow Rate 3.00 3.00 3.00 01/18/20 01/18/20 01/18/20 13:15 16:21 16:21 Pulse 58 70 Pulse Ox 97 97 O2 Delivery Nasal Cannula O2 Flow Rate 2.00 01/18/20 00:00 Intake Total 1000 ml Output Total 2500 ml Balance -1500 ml Capillary Refill : Less Than 3 SecondsLess Than 3 Seconds Constitutional: AAO x 3, well-developed, well-nourished HEENT: other (NGT in place), EOMI, hearing is well preserved Neck: carotid pulses are 2 + bilaterally Respiratory: No accessory muscle use; other (good bilat air entry) Cardiovascular: regular rate-rhythm, S1 and S2, systolic murmur (faint MOY at card base) Gastrointestinal: No tender; soft; No guarding, No rebound; audible bowel sounds Extremities: No clubbing, No cyanosis, No significant edema Neurologic/Psychiatric: oriented x 3, other (moves all limbs equally) Skin: normal color, warm/dry Data Review Labs Laboratory Tests 01/17/20 17:52: Glucometer 136H 01/17/20 23:53: Glucometer 166H 01/18/20 04:00: White Blood Count 12.3H, Red Blood Count 4.02L, Hemoglobin 11.0L, Hematocrit 34L , Mean Corpuscular Volume 85, Mean Corpuscular Hemoglobin 27, Mean Corpuscular Hemoglobin Concent 32, Red Cell Distribution Width 14.2, Platelet Count 283, Mean Platelet Volume 10.2, Neutrophils (%) (Auto) 79H, Lymphocytes (%) (Auto) 14, Monocytes (%) (Auto) 7, Eosinophils (%) (Auto) 0, Basophils (%) (Auto) 0, Neutrophils # (Auto) 9.7H, Lymphocytes # (Auto) 1.7, Monocytes # (Auto) 0.9, Eosinophils # (Auto) 0.0, Basophils # (Auto) 0.0, Sodium Level 139, Potassium Level 3.6, Chloride Level 100, Carbon Dioxide Level 29, Anion Gap 10, Blood Urea Nitrogen 19H, Creatinine 0.87, Estimat Glomerular Filtration Rate > 60, BUN/Creatinine Ratio 22, Glucose Level 148H, Calcium Level 8.4L, Corrected Calcium 9.0, Total Bilirubin 0.3, Aspartate Amino Transf (AST/SGOT) 15, Alanine Aminotransferase (ALT/SGPT) < 6, Alkaline Phosphatase 96, Total Protein 5.9L, Albumin 3.3 01/18/20 11:59: Glucometer 146H Microbiology 01/17/20 Blood Culture - Preliminary, Resulted No growth Laboratory Tests 01/17/20 08:52 01/18/20 04:00 A/P-Cardiology Assessment/Admission Diagnosis Brief sinus bradycardia (no documentation) that is asymptomatic Mild CAD on card caths of Sep 2014 and March 2019, normal left ventricular size and function, normal aorta and bilateral runoff H/o bilateral lower extremity pain, YOSELIN was done in May 2017 and it was normal bilaterally, normal aortogram and bilateral runoff in March 2019 Hypertension, uncontrolled Hyperlipidemia, treated with statin and monitored by Dr Smith 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 Mild bilateral carotid stenosis, last ultrasound was done in February 2019 Chronic, intermittent, lower leg edema Discussion and Recomendations * Cardiac status clinically stable * Risk factor mod reviewed with her * Hydralazine iv for bp control while she is NPO * Resume oral meds after oral intake allowed * Will follow with you Clinical Quality Measures DVT/VTE Risk/Contraindication: Risk Factor Score Per Nursin RFS Level Per Nursing on Admit: 4+=Very High CURT ARZATE MD FACP FAC CCDS Jan 18, 2020 16:49
[2020-01-18] MEDS: RT-ALBUTEROL/IPRATROPIUM 3 ML (DUONEB) VIAL INH SCH (19:07)
[2020-01-18 19:59] VITALS: BP 151/69
[2020-01-18] MEDS: rOPINIRole 1 MG (REQUIP) TABLET PO SCH (21:00)
[2020-01-18] MEDS: QUEtiapine 100 MG (SEROquel) TAB IMMEDIATE RELEASE PO SCH (21:00)
[2020-01-18] MEDS ORDERED: PROMETHAZINE INJ 25 MG/ML (PHENERGAN) AMP ONE (22:11)
[2020-01-19] VITALS: BP 147/67
[2020-01-19] MEDS: fentaNYL INJECTION 100 MCG/2 ML AMP IV PRN ×6 (03:29→22:15)
[2020-01-19] MEDS: ONDANSETRON 4 MG/2 ML (SDV) Z0FRAN IV PRN ×4 (03:29→20:00)
[2020-01-19] MEDS: PROMETHAZINE INJ 25 MG/ML (PHENERGAN) AMP IVP PRN ×3 (03:29→18:17)
[2020-01-19 03:36] VITALS: BP 147/68
[2020-01-19] MEDS: inSUlin ASPART (NovoLOG) 1 UNIT/0.01 ML (CHARGE PER UNIT) SC SCH ×4 (05:50→21:47)
[2020-01-19] MEDS: RT-ALBUTEROL/IPRATROPIUM 3 ML (DUONEB) VIAL INH SCH ×4 (06:32→19:09)
[2020-01-19 08:00] VITALS: BP 151/68
--- NOTE | 2020-01-19 09:03 | Cardiology Progress Note ---
Subjective Date Seen by Provider: Jan 19, 2020 Time Seen by Provider: 08:58 Subjective/Events-last exam Patient in bed, c/o abdominal pain. Denies any chest pain or dyspnea. Review of Systems General: No Chills, No Night Sweats; Fatigue; No Malaise, No Appetite, No Other Pulmonary: No Dyspnea, No Cough, No Pleuritic Chest Pain, No Other Cardiovascular: No: Chest Pain, Palpitations, Orthopnea, Paroxysmal Noc. Dyspnea, Edema, Lt Headedness, Other Focused Exam Lactate Level 01/17/20 08:52: Lactic Acid Level 0.60 Objective-Cardiology Exam Last Set of Vital Signs Vital Signs 01/19/20 08:00 Temp 35.5 Pulse 63 Resp 18 B/P (MAP) 151/68 (95) Pulse Ox 97 O2 Delivery Nasal Cannula O2 Flow Rate 3.00 Capillary Refill : Less Than 3 SecondsLess Than 3 Seconds I&O Intake and Output 01/19/20 00:00 Intake Total 2000 ml Output Total 3250 ml Balance -1250 ml Intake Oral 0 ml IV Total 2000 ml Output Urine Total 600 ml Gastric Drainage Total 2650 ml Daily Weight Change No General: Alert, Oriented X3, Cooperative HEENT: Atraumatic, PERRLA Neck: Supple, No JVD, No Thyromegaly Lungs: Clear to Auscultation, Normal Air Movement Heart: Regular Rate, Normal S1, Normal S2, No Murmurs Abdomen: Other (difffusely ttp) Extremities: No Clubbing, No Cyanosis, No Edema, Normal Pulses, No Tenderne ss/Swelling Skin: No Rashes, No Breakdown, No Significant Lesion Neuro: Normal Gait, Normal Speech, Strength at 5/5 X4 Ext, Normal Tone, Sensation Intact A/P-Cardiology Admission Diagnosis Sinus bradycardia SBO HTN HLP Assessment/Plan Brief sinus bradycardia, was asymptomatic, continue to monitor telemetry. SBO, NG tube to suction, Dr. Kendrick managing. Mild CAD on card cath of Sep 2014 and March 2019, normal left ventricular size and function, normal aorta and bilateral runoff H/o bilateral lower extremity pain, YOSELIN was done in May 2017 and it was normal bilaterally, normal aortogram and bilateral runoff in March 2019 Hypertension,continue to monitor blood pressure. Hyperlipidemia, treated with statin, continue to monitor as outpatient. 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 Mild bilateral carotid stenosis, last ultrasound was done in February 2019, continue to monitor. Chronic, intermittent, lower leg edema Patient was seen and evaluated with Valeria, examination performed, management plan was discussed, agree with the current scribed note, I made few changes to the note using Italic font Patient is laying down in bed, having abdominal pain, no continuous suction Currently not bradycardic, probably had vagal episode. 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
[2020-01-19] MEDS: ASPIRIN E.C. 81 MG (ECOTRIN) TAB PO SCH (09:04)
[2020-01-19] MEDS: RANOLAZINE ER 500 MG TAB (RANEXA) PO SCH ×2 (09:04→19:49)
[2020-01-19] MEDS: PREGABALIN 150 MG (LYRICA) CAPSULE PO SCH ×2 (09:04→19:49)
--- NOTE | 2020-01-19 11:53 | Progress Note - Hospitalist ---
Subjective HPI/CC On Admission Date Seen by Provider: Jan 19, 2020 Time Seen by Provider: 11:48 Vira Irizarry is a 69-year-old female with past medical history of hypertension, diabetes, coronary artery disease, hyperlipidemia, anxiety, COPD, GERD, restless leg syndrome, who presented with abdominal pain. She reports that the pain is severe and diffuse. She reports that she has been nauseous and vomiting. She reports that all her symptoms started after she ate cabbage last night. She had a similar episode previously when she ate broccoli and developed a small bowel o bstruction. She denies any fevers or chills. She denies any hematemesis. She has not been passing gas or had a bowel movement. Subjective/Events-last exam Pt reports feeling better. Pain still present but improving. Feels quite anxi ous. Normally takes Xanax. Focused Exam Lactate Level 01/17/20 08:52: Lactic Acid Level 0.60 Objective Exam Vital Signs Vital Signs Date Time Temp Pulse Resp B/P (MAP) Pulse Ox O2 Delivery O2 Flow Rate FiO2 01/19/20 11:07 90 Nasal Cannula 4.00 01/19/20 08:00 35.5 63 18 151/68 (95) Capillary Refill : Less Than 3 SecondsLess Than 3 Seconds General Appearance: No Apparent Distress, Obese HEENT: Other (NGT in place) Respiratory: Lungs Clear, No Respiratory Distress Cardiovascular: Regular Rate, Rhythm, No Murmur Gastrointestinal: Normal Bowel Sounds, Soft; No Guarding Neurologic/Psychiatric: Alert, Oriented x3 Results/Procedures Lab Patient resulted labs reviewed. Imaging: Reviewed Imaging Report Assessment/Plan Assessment and Plan Assess & Plan/Chief Complaint Small bowel obstruction CT abdomen revealed small bowel obstruction Surgery consulted, appreciate assistance NPO Continue IV fluids Continue NGT to LIS Continue ambulation Incentive spirometry - Hopeful to avoid surgery if at all possible, now passing flatus Bradycardia- resolved Follows with Dr. Smith Consult cardiology, appreciate assistance T2DM Sliding scale insulin COPD without exacerbation MAT protocol Anxiety - State ativan IV Hypertension Coronary artery disease Hyperlipidemia GERD Restless leg syndrome Resume home meds when able to take PO DVT prophylaxis: Lovenox Clinical Quality Measures DVT/VTE Risk/Contraindication: Risk Factor Score Per Nursin RFS Level Per Nursing on Admit: 4+=Very High ARTEMIO APARICIO MD Jan 19, 2020 11:52
[2020-01-19 12:00] VITALS: BP 150/77
[2020-01-19] MEDS: ENOXAPARIN 40 MG/0.4 ML (LOVENOX) SYR SC SCH (12:41)
[2020-01-19] MEDS: LORazepam INJ 2 MG/ML (ATIVAN) VIAL IVP PRN ×2 (12:42→20:43)
[2020-01-19] MEDS: LACTATED RINGERS 1,000 ML IV SCH (14:06)
--- NOTE | 2020-01-19 14:32 | Progress Note - Surgery ---
Subjective Time Seen by a Provider: 14:24 Subjective/Events-last exam Pt seen and examined, states she has had flatus and BM. Wants to eat. Review of Systems General: No Chills, No Night Sweats Pulmonary: No Dyspnea, No Cough Cardiovascular: No: Chest Pain, Palpitations Gastrointestinal: No: Nausea, Vomiting, Abdominal Pain Focused Exam Lactate Level 01/17/20 08:52: Lactic Acid Level 0.60 Objective Exam Vital Signs Date Time Temp Pulse Resp B/P (MAP) Pulse Ox O2 Delivery O2 Flow Rate FiO2 01/19/20 14:20 96 Nasal Cannula 3.00 01/19/20 13:00 57 01/19/20 12:00 36.0 59 18 150/77 (101) 98 Nasal Cannula 3.00 01/19/20 11:07 90 Nasal Cannula 4.00 01/19/20 08:45 97 Nasal Cannula 1.00 01/19/20 08:00 35.5 63 18 151/68 (95) 97 Nasal Cannula 3.00 01/19/20 07:00 61 01/19/20 06:32 91 Nasal Cannula 1.00 01/19/20 06:12 36.6 01/19/20 05:58 36.6 01/19/20 04:10 36.6 01/19/20 03:36 36.6 98 18 147/68 (94) Nasal Cannula 3.00 01/19/20 03:29 36.3 01/19/20 01:00 71 01/19/20 00:17 36.3 01/19/20 00:00 36.4 65 20 147/67 (93) 95 Nasal Cannula 1.00 1.00 01/18/20 23:47 36.3 01/18/20 22:49 36.3 01/18/20 22:19 36.3 01/18/20 20:32 36.3 01/18/20 20:30 95 Nasal Cannula 1.00 01/18/20 20:02 36.3 01/18/20 19:59 36.3 76 20 151/69 (96) 95 Nasal Cannula 1.00 01/18/20 19:07 94 Nasal Cannula 2.00 01/18/20 19:00 58 01/18/20 16:21 97 Nasal Cannula 2.00 01/18/20 16:21 70 97 01/18/20 16:00 36.1 57 20 150/68 (95) 97 Nasal Cannula 3.00 I & O 01/19/20 07:00 Intake Total 1000 ml Output Total 3450 ml Balance -2450 ml Capillary Refill : Less Than 3 SecondsLess Than 3 Seconds General Appearance: No Apparent Distress, Obese HEENT: Other (NGT in place) Respiratory: Lungs Clear, No Respiratory Distress Cardiovascular: Regular Rate, Rhythm, No Murmur Peripheral Pulses: 2+ Carotid (R), 2+ Carotid (L), 2+ Dorsalis Pedis (R), 2+ Left Dors-Pedis (L), 2+ Radial Pulses (R), 2+ Radial Pulses (L) Gastrointestinal: soft, abnormal bowel sounds (slightly decreased), distended (may be her normal), tenderness (mild with palpation) Extremity: Non Tender, No Pedal Edema Neurologic/Psychiatric: Alert, Oriented x3 Results Lab Laboratory Tests 01/18/20 17:53: Glucometer 133H 01/18/20 23:50: Glucometer 118H 01/19/20 05:49: Glucometer 110 01/19/20 12:22: Glucometer 121H Microbiology 01/17/20 Blood Culture - Preliminary, Resulted No growth Assessment/Plan Assessment/Plan Assessment/Plan PSBO- resolving; will clamp NGT and start clear liquids. Plan to hook NGT back- up to suction at 8pm, if less than 300ml can d/c NGT. Continue ambulation, chew gum and IS use. DM, COPD - continue home meds and O2 as needed. Clinical Quality Measures DVT/VTE Risk/Contraindication: Risk Factor Score Per Nursin RFS Level Per Nursing on Admit: 4+=Very High YVONNE TAYLOR DO Jan 19, 2020 14:32
[2020-01-19] MEDS ORDERED: DICY10CA12 PO (15:04)
[2020-01-19] MEDS ORDERED: METO10TA3 PO (15:04)
[2020-01-19] MEDS ORDERED: ALPR1TAB7 PO ×2 (15:04)
[2020-01-19] MEDS ORDERED: MECL-149 PO (15:04)
[2020-01-19] MEDS ORDERED: METF-399 PO (15:04)
[2020-01-19] MEDS ORDERED: ASPI-983 PO (15:07)
[2020-01-19] MEDS ORDERED: FLUT9.9S NS (15:07)
[2020-01-19] MEDS ORDERED: CETI10TA17 PO (15:07)
[2020-01-19] MEDS ORDERED: RANI150T90 PO (15:07)
--- NOTE | 2020-01-19 15:15 | NUR ---
SPOKE WITH THE PT (SHE HAD A MED LIST ON HER CHART) HAD A MED LIST FAXED FROM [employer] AND WENT THRU THE EXT MED HISTORY TO COMPLETE THE MED. PT WAS UNSURE ABOUT HER MEDICATIONS- SO THE MED REC WAS ENTERED USING THE MED LIST FROM THE DR'S OFFICE AND THE MED LIST FROM [facility]. THE FOLLOWING ARE FILL DATES NOT LISTED ON THE EXT MED HISTORY: 10-31-2019 SEROQUEL 50MG #90/90DS 10-31-2019 ROPINIROLE 1MG #90/90DS 11-28-2019 FLEXERIL 10MG #90 12-02-2019 ATORVASTATIN 10MG #90/90DS 12-02-2019 TOPIRAMATE 50MG #90/90DS 12-02-2019 COMVIBENT #3/90DS 12-03-2019 LYRICA 150MG #180/90DS 12-26-2019 LANTUS #3 PENS/28DS 12-23-2019 REGLAN 10MG #180 01-05-2020 DICYCLOMINE 10MG #180 01-06-2020 XANAX 1MG #75/30DS 01-06-2020 OXYCODONE 30MG #120/30DS OTC MEDS: FLONASE ZYRTEC ASPIRIN 81 ZANTAC MECLIZINE
[2020-01-19 15:39] VITALS: BP 158/67
--- NOTE | 2020-01-19 15:41 | NUR ---
Pastoral care visit.
[2020-01-19 19:43] VITALS: BP 165/71
[2020-01-19] MEDS: rOPINIRole 1 MG (REQUIP) TABLET PO SCH (19:49)
[2020-01-19] MEDS: QUEtiapine 100 MG (SEROquel) TAB IMMEDIATE RELEASE PO SCH (19:49)
--- NOTE | 2020-01-19 23:40 | NUR ---
[facility]. S/S CONSULT ORDERED. FAX IS LOCATED IN PAPER CHART.
[2020-01-20] VITALS: BP 138/73
[2020-01-20] MEDS: LACTATED RINGERS 1,000 ML IV SCH ×3 (00:36→20:26)
[2020-01-20] MEDS: PROMETHAZINE INJ 25 MG/ML (PHENERGAN) AMP IVP PRN ×4 (02:58→20:21)
[2020-01-20] MEDS: fentaNYL INJECTION 100 MCG/2 ML AMP IV PRN ×6 (02:58→22:40)
[2020-01-20 04:00] VITALS: BP 144/76
[2020-01-20] MEDS: LORazepam INJ 2 MG/ML (ATIVAN) VIAL IVP PRN ×3 (04:07→20:22)
[2020-01-20] MEDS: ONDANSETRON 4 MG/2 ML (SDV) Z0FRAN IV PRN ×4 (04:07→20:20)
[2020-01-20 04:14] LABS: HEMOGLOBIN 10.8 G/DL (11.5-16.0); MEAN PLATELET VOLUME 10.1 FL (7.4-10.4); WHITE BLOOD COUNT 10.1 10^3/uL (4.3-11.0)
[2020-01-20 04:36] LABS: BUN/CREATININE RATIO 23; CALCIUM 8.7 MG/DL (8.5-10.1); CARBON DIOXIDE 39 MMOL/L (21-32); CHLORIDE 91 MMOL/L (98-107); CREATININE SERUM 0.86 MG/DL (0.60-1.30); GFR ESTIMATED > 60; GLUCOSE 126 MG/DL (70-105); POTASSIUM 2.8 MMOL/L (3.6-5.0); SODIUM 144 MMOL/L (135-145)
[2020-01-20] MEDS: inSUlin ASPART (NovoLOG) 1 UNIT/0.01 ML (CHARGE PER UNIT) SC SCH ×4 (04:41→21:00)
[2020-01-20] MEDS: RT-ALBUTEROL/IPRATROPIUM 3 ML (DUONEB) VIAL INH SCH ×4 (07:22→18:30)
--- NOTE | 2020-01-20 07:47 | Cardiology Progress Note ---
Subjective Date Seen by Provider: Jan 20, 2020 Time Seen by Provider: 07:45 Subjective/Events-last exam Patient is laying down in bed, feeling better. Still have NG suction Review of Systems General: No Chills, No Night Sweats; Fatigue; No Malaise, No Appetite, No Other HEENT: No Head Aches, No Visual Changes, No Eye Pain, No Ear Pain, No Dysphasia, No Sinus Congestion, No Post Nasal Drip, No Sore Throat, No Other Pulmonary: No Dyspnea, No Cough, No Pleuritic Chest Pain, No Other Cardiovascular: No: Chest Pain, Palpitations, Orthopnea, Paroxysmal Noc. Dyspnea, Edema, Lt Headedness, Other Focused Exam Lactate Level 01/17/20 08:52: Lactic Acid Level 0.60 Objective-Cardiology Exam Last Set of Vital Signs Vital Signs 01/20/20 01/20/20 01/20/20 04:00 07:00 07:22 Temp 36.4 Pulse 78 Resp 19 B/P (MAP) 144/76 (98) Pulse Ox 83 O2 Delivery Nasal Cannula O2 Flow Rate 3.00 Capillary Refill : Less Than 3 SecondsLess Than 3 Seconds I&O Intake and Output 01/20/20 00:00 Intake Total 200 ml Output Total 3880 ml Balance -3680 ml Intake Oral 200 ml Output Urine Total 880 ml Gastric Drainage Total 3000 ml # Bowel Movements 1 General: Alert, Oriented X3, Cooperative HEENT: Atraumatic, PERRLA Neck: Supple, No JVD, No Thyromegaly Lungs: Clear to Auscultation, Normal Air Movement Heart: Regular Rate, Normal S1, Normal S2, No Murmurs Abdomen: Soft, No Tenderness Extremities: No Clubbing, No Cyanosis, No Edema, Normal Pulses, No Tenderness/Swelling Skin: No Rashes, No Breakdown, No Significant Lesion Neuro: Normal Speech, Strength at 5/5 X4 Ext, Normal Tone, Sensation Intact Results Lab Laboratory Tests 01/20/20 04:00 A/P-Cardiology Admission Diagnosis Sinus bradycardia SBO HTN HLP Assessment/Plan Transient episode of sinus bradycardia, was asymptomatic, continue to monitor telemetry. SBO, NG tube to suction, Dr. Kendrick managing. Hypokalemia, I will give 40 mEq of KCl IV and monitor electrolytes Mild CAD on card cath of Sep 2014 and March 2019, normal left ventricular size and function, normal aorta and bilateral runoff H/o bilateral lower extremity pain, YOSELIN was done in May 2017 and it was normal bilaterally, normal aortogram and bilateral runoff in March 2019 Hypertension,continue to monitor blood pressure. Hyperlipidemia, treated with statin, continue to monitor as outpatient. 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 Mild bilateral carotid stenosis, last ultrasound was done in February 2019, continue to monitor. Chronic, intermittent, lower leg edema Clinical Quality Measures DVT/VTE Risk/Contraindication: Risk Factor Score Per Nursin RFS Level Per Nursing on Admit: 4+=Very High JUAN LICONA MD Jan 20, 2020 07:47
[2020-01-20 08:00] VITALS: BP 158/67
--- NOTE | 2020-01-20 08:13 | Progress Note - Surgery ---
[facility] [place] 01/20/20 0813: Subjective Date Seen by a Provider: Jan 20, 2020 Time Seen by a Provider: 08:00 Subjective/Events-last exam Patient states that she has been able to pass gas, hasn't had a bowel movement yet and has no complaint of abdominal pain or N/V. She states no issues with her liquid diet. She states she did have some chest tightness last night which she has experienced before in the past, stating it only lasted about 30 minutes. She also stated she felt some dizziness this morning for which she received medicine and is stating that she is feeling better. She also states feeling tired, weak and expressing the desire to go home. Review of Systems General: No Chills, No Night Sweats; Fatigue, Malaise HEENT: No Head Aches, No Dysphasia, No Sore Throat Pulmonary: Cough, Other (mild chest tightness) Cardiovascular: Lt Headedness (dizziness this morning ); No: Chest Pain, Palpitations, Orthopnea Gastrointestinal: No: Nausea, Vomiting, Abdominal Pain, Diarrhea, Constipation Genitourinary: No Dysuria, No Frequency, No Incontinence Musculoskeletal: No: neck pain, shoulder pain, arm pain, back pain, leg pain Neurological: Weakness Focused Exam Lactate Level 01/17/20 08:52: Lactic Acid Level 0.60 Respiratory: Lungs Clear, No Accessory Muscle Use, No Respiratory Distress Cardiovascular: Regular Rate, Rhythm, No Edema, No Gallop, No Murmur, Normal Peripheral Pulses Peripheral Pulses: 2+ Dorsalis Pedis (R), 2+ Left Dors-Pedis (L), 2+ Radial Pulses (R), 2+ Radial Pulses (L) Skin: normal color, warm/dry, other (large abdominal scar ) Objective Exam Vital Signs Date Time Temp Pulse Resp B/P (MAP) Pulse Ox O2 Delivery O2 Flow Rate FiO2 01/20/20 07:22 83 Nasal Cannula 3.00 01/20/20 07:00 78 01/20/20 04:00 36.4 74 19 144/76 (98) 93 Nasal Cannula 3.00 01/20/20 01:00 70 01/20/20 00:00 36.6 92 20 138/73 (94) 96 Nasal Cannula 3.00 01/19/20 20:00 97 Nasal Cannula 1.00 01/19/20 19:43 36.6 62 24 165/71 (102) 96 Nasal Cannula 3.00 01/19/20 19:09 96 Nasal Cannula 3.00 01/19/20 19:00 82 01/19/20 15:39 37.1 58 18 158/67 (97) 96 Nasal Cannula 3.00 3.00 01/19/20 14:20 96 Nasal Cannula 3.00 01/19/20 13:00 57 01/19/20 12:00 36.0 59 18 150/77 (101) 98 Nasal Cannula 3.00 01/19/20 11:07 90 Nasal Cannula 4.00 01/19/20 08:45 97 Nasal Cannula 1.00 I & O 01/20/20 06:59 Intake Total 200 ml Output Total 4380 ml Balance -4180 ml Capillary Refill : Less Than 3 SecondsLess Than 3 Seconds General Appearance: No Apparent Distress, Obese HEENT: Other (NGT in place) Respiratory: Lungs Clear, No Accessory Muscle Use, No Respiratory Distress Cardiovascular: Regular Rate, Rhythm, No Edema, No Gallop, No Murmur, Normal Peripheral Pulses Peripheral Pulses: 2+ Dorsalis Pedis (R), 2+ Left Dors-Pedis (L), 2+ Radial Pulses (R), 2+ Radial Pulses (L) Gastrointestinal: normal bowel sounds, non tender, soft, no organomegaly, no pulsatile mass Extremity: Normal Capillary Refill, Non Tender, No Calf Tenderness, No Pedal Edema Neurologic/Psychiatric: Alert, Oriented x3, No Motor/Sensory Deficits, 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 Norm as Tested Skin: Normal Color, Warm/Dry Results Lab Laboratory Tests 01/19/20 12:22: Glucometer 121H 01/19/20 17:23: Glucometer 181H 01/19/20 20:51: Glucometer 110 01/20/20 04:00: White Blood Count 10.1, Red Blood Count 4.00L, Hemoglobin 10.8L, Hematocrit 34L, Mean Corpuscular Volume 85, Mean Corpuscular Hemoglobin 27, Mean Corpuscular Hemoglobin Concent 32, Red Cell Distribution Width 14.0, Platelet Count 267, Mean Platelet Volume 10.1, Sodium Level 144, Potassium Level 2.8L, Chloride Level 91L, Carbon Dioxide Level 39H, Anion Gap 14, Blood Urea Nitrogen 20H, Creatinine 0.86, Estimat Glomerular Filtration Rate > 60, BUN/Creatinine Ratio 23, Glucose Level 126H, Calcium Level 8.7 Microbiology 01/17/20 Blood Culture - Preliminary, Resulted No growth Assessment/Plan Assessment/Plan Assessment/Plan PSBO: - Continue NG tube suction and liquid diet. - NG Tube Drainage: 01/18: 3000 mL 01/19: 1050 mL so far - Possibly consider SBFU Hypokalemia: - IV 40 mEq/L KCl at a rate of 10 mEq/hr DM: - Continue home meds - Finger blood sugar checks COPD: - MAT protocol, PRN breathing treatments Clinical Quality Measures DVT/VTE Risk/Contraindication: Risk Factor Score Per Nursin RFS Level Per Nursing on Admit: 4+=Very High GALLO TAYLOR DO 01/20/20 1213: Subjective Time Seen by a Provider: 12:02 Subjective/Events-last exam Pt seen and examined, denies N/V and still having flatus. Pt wants NGT out, but not to soon. I am unsure how much was taken out after being clamped yesterday. Review of Systems General: No Chills, No Night Sweats Pulmonary: Cough Cardiovascular: No: Chest Pain, Palpitations Gastrointestinal: No: Nausea, Vomiting, Abdominal Pain Objective Exam General Appearance: No Apparent Distress, Obese Respiratory: Lungs Clear, No Accessory Muscle Use, No Respiratory Distress Cardiovascular: Regular Rate, Rhythm, No Murmur Gastrointestinal: non tender, soft; No distended Assessment/Plan Assessment/Plan Assessment/Plan PSBO - ??resolved Clamp NGT and ck residual at 1500, then d/c if less than 300ml. Encourage ambultation Supervisory-Addendum Brief Verification & Attestation Participated in pt care: history, MDM, physical Personally performed: exam, history, MDM Care discussed with: Medical Student Procedures: n/a Verification and Attestation of Medical Student E/M Service A medical student performed and documented this service. I then reviewed and verified all information documented by the medical student and made modifications to such information, when appropriate. I personally performed a physical exam, medical decision making and then discussed any differences between the notes and made revisions as necessary to create one note. Gallo Taylor , 01/20/20 , 12:13 [facility] Jan 20, 2020 08:13 GALLO TAYLOR DO Jan 20, 2020 12:13
[2020-01-20] MEDS: RANOLAZINE ER 500 MG TAB (RANEXA) PO SCH ×2 (08:20→20:18)
[2020-01-20] MEDS: PREGABALIN 150 MG (LYRICA) CAPSULE PO SCH ×2 (08:20→20:18)
[2020-01-20] MEDS: POTASSIUM CL 10MEQ/50ML IVPB 50 ML IV SCH ×4 (08:24→13:37)
[2020-01-20] MEDS: ASPIRIN E.C. 81 MG (ECOTRIN) TAB PO SCH (08:30)
--- NOTE | 2020-01-20 11:00 | NUR ---
NG TUBE CLAMPED
[2020-01-20] MEDS: ENOXAPARIN 40 MG/0.4 ML (LOVENOX) SYR SC SCH (11:41)
[2020-01-20 12:03] VITALS: BP 171/73
--- NOTE | 2020-01-20 12:09 | NUR ---
CM/SS visited the patient to assess for needs upon discharge. Plan: The patient will return home with Home Health and her caregivers from [employer] that come M-F to assist with household needs. Home Health: The patient was provided with a patient preference form and is still considering who she would like to use.
[2020-01-20] MEDS ORDERED: rOPINIRole 1 MG (REQUIP) TABLET PO NR (12:15)
--- NOTE | 2020-01-20 12:44 | Progress Note - Hospitalist ---
Subjective HPI/CC On Admission Date Seen by Provider: Jan 20, 2020 Time Seen by Provider: 12:40 Vira Irizarry is a 69-year-old female with past medical history of hypertension, diabetes, coronary artery disease, hyperlipidemia, anxiety, COPD, GERD, restless leg syndrome, who presented with abdominal pain. She reports that the pain is severe and diffuse. She reports that she has been nauseous and vomiting. She reports that all her symptoms started after she ate cabbage last night. She had a similar episode previously when she ate broccoli and developed a small bowel obstruction. She denies any fevers or chills. She denies any hematemesis. She has not been passing gas or had a bowel movement. Subjective/Events-last exam Pt reports feeling better. Nausea improve. NG in place but clamped. Tolerating w ell. +Flatus and BM. Objective Exam Vital Signs Vital Signs Date Time Temp Pulse Resp B/P (MAP) Pulse Ox O2 Delivery O2 Flow Rate FiO2 01/20/20 12:03 37.0 60 18 171/73 (105) 100 Nasal Cannula 6.00 Capillary Refill : Less Than 3 SecondsLess Than 3 Seconds General Appearance: No Apparent Distress, WD/WN HEENT: Other (NGT in place) Respiratory: Lungs Clear, No Respiratory Distress Cardiovascular: Regular Rate, Rhythm, No Murmur Gastrointestinal: Non Tender, Soft, Abnormal Bowel Sounds (quiet but present) Neurologic/Psychiatric: Alert, Oriented x3 Results/Procedures Lab Laboratory Tests 01/20/20 04:00 Patient resulted labs reviewed. Imaging: Reviewed Imaging Report Assessment/Plan Assessment and Plan Assess & Plan/Chief Complaint Small bowel obstruction CT abdomen revealed small bowel obstruction Surgery consulted, appreciate assistance Continue IV fluids Continue ambulation Incentive spirometry - Hopeful to avoid surgery if at all possible, now passing flatus - NGT clamped currently - CLD Bradycardia- resolved Follows with Dr. Smith Consult cardiology, appreciate assistance T2DM Sliding scale insulin COPD without exacerbation MAT protocol Anxiety - Continue ativan IV Hypertension Coronary artery disease Hyperlipidemia GERD Restless leg syndrome Resume home meds DVT prophylaxis: Lovenox Clinical Quality Measures DVT/VTE Risk/Contraindication: Risk Factor Score Per Nursin RFS Level Per Nursing on Admit: 4+=Very High ARTEMIO APARICIO MD Jan 20, 2020 12:44
--- NOTE | 2020-01-20 13:40 | Physician Query Clarification ---
PQ-CHF Specificity Admission Date: Jan 17, 2020 at 10:08 Discharge Date: The medical record reflects the following clinical scenario: History/Risk Factors: History of CHF per ED report HTN Clinical Findings:Minimal central pulmonary vascular congestion. Treatment:Home medications include Furosemide 20 mg PO daily. Question: Can you further specify the acuity &/or type of CHF per the clinical indicators above? Please document a response in the Progress Notes or Discharge Summary. 1. Acuity: Acute, Chronic or Acute on Chronic 2. Type: Systolic, Diastolic or Systolic & Diastolic 3. Unspecified: CHF cannot be further specified regarding type or acuity 4. Other, with explanation of clinical findings 5. Clinically undetermined, no explanation for clinical findings PHYSICIAN RESPONSE Acuity: Other (list below) Type: Other (explain below) Other, clinical findings No heart failure to my exam at the time of my exam Please remember a lack of response to the above will prompt a phone page by [facility]I/Coding staff. In responding to this query, please exercise your independent professional judgment. The purpose of this communication is to more accurately reflect the complexity of your patients condition. The fact that a question is asked does not imply that any particular answer is desired or expected. Thank you for your timely response to this clarification. Requestors name: Cristy Butcher [facility] Phone # ext [phone] or [phone] THIS PHYSICIAN QUERY FORM IS A PERMANENT PART OF THE MEDICAL RECORD CRISTY BUTCHER Jan 20, 2020 13:40 CURT ARZATE MD [facility] Jan 20, 2020 15:04
--- NOTE | 2020-01-20 15:30 | NUR ---
NG TUBE UNCLAMPED. [address] TAYLOR.
[2020-01-20 16:01] VITALS: BP 156/74
[2020-01-20] MEDS: KETOROLAC 30 MG/ML VIAL IVP PRN ×2 (16:44→22:40)
[2020-01-20 19:56] VITALS: BP 184/72
[2020-01-20] MEDS: QUEtiapine 100 MG (SEROquel) TAB IMMEDIATE RELEASE PO SCH (20:17)
[2020-01-20] MEDS: rOPINIRole 1 MG (REQUIP) TABLET PO SCH (20:18)
[2020-01-20] MEDS ORDERED: ALPRAZolam 1 MG (XANAX) TAB PO ONE (23:15)
[2020-01-21] VITALS (8 sets, daily range): BP systolic 124–159; BP diastolic 67–78
[2020-01-21] MEDS: ONDANSETRON 4 MG/2 ML (SDV) Z0FRAN IV PRN ×4 (04:38→20:31)
[2020-01-21] MEDS: fentaNYL INJECTION 100 MCG/2 ML AMP IV PRN ×3 (04:38→20:31)
[2020-01-21 04:50] LABS: HEMOGLOBIN 9.8 G/DL (11.5-16.0); MEAN PLATELET VOLUME 10.5 FL (7.4-10.4); RED CELL DISTRIBUTION WIDTH 13.5 % (10.0-14.5); WHITE BLOOD COUNT 10.4 10^3/uL (4.3-11.0)
[2020-01-21] MEDS: LACTATED RINGERS 1,000 ML IV SCH (05:04)
[2020-01-21 05:30] LABS: ALANINE AMINOTRANSFERASE < 6 U/L (0-55); ALBUMIN 2.2 GM/DL (3.2-4.5); ALKALINE PHOSPHATASE 53 U/L (40-136); BILIRUBIN,TOTAL 0.2 MG/DL (0.1-1.0); BUN/CREATININE RATIO 19; CALCIUM 7.3 MG/DL (8.5-10.1); CARBON DIOXIDE 25 MMOL/L (21-32); CHLORIDE 99 MMOL/L (98-107); CREATININE SERUM 0.63 MG/DL (0.60-1.30); GFR ESTIMATED > 60; GLUCOSE 68 MG/DL (70-105); POTASSIUM 3.3 MMOL/L (3.6-5.0); SODIUM 139 MMOL/L (135-145); TOTAL PROTEIN 3.4 GM/DL (6.4-8.2)
[2020-01-21 05:35] LABS: MAGNESIUM 1.1 MG/DL (1.6-2.4)
[2020-01-21] MEDS: inSUlin ASPART (NovoLOG) 1 UNIT/0.01 ML (CHARGE PER UNIT) SC SCH ×4 (05:50→21:00)
--- NOTE | 2020-01-21 07:20 | NUR ---
Dr Krishna student here making rounds this AM. patient is not comfortable complaining of trouble breathing, heart burn, and stomach pain, stating low 80s on 4 Liters NC. vapotherm at 40% started at this time by RT as well as a breathing treatment stats increased to 89% and patient overall comfort increased. Suction was also unclamped and set to low continuous at this time
[2020-01-21] MEDS: RT-ALBUTEROL/IPRATROPIUM 3 ML (DUONEB) VIAL INH SCH ×4 (07:27→19:11)
--- NOTE | 2020-01-21 07:46 | Progress Note - Surgery ---
[facility] 01/21/20 0746: Subjective Date Seen by a Provider: Jan 21, 2020 Time Seen by a Provider: 07:38 Subjective/Events-last exam Patient is in moderate distress this morning. She is complaining of SOB, Chest pain and tightness. She states that she is experiencing 9/10 heartburn and severe throat pain. She states that she is nauseated and in moderate pain all over her body. Patient states that she still hasnt had a BM, but is still passing gas. Review of Systems HEENT: Dysphasia, Sore Throat Pulmonary: Dyspnea, Cough, Other Cardiovascular: Chest Pain; No: Palpitations, Paroxysmal Noc. Dyspnea, Lt Headedness Gastrointestinal: Nausea, Abdominal Pain; No: Vomiting, Diarrhea, Constipation Genitourinary: No Dysuria, No Frequency, No Incontinence, No Hematuria Musculoskeletal: other (states pain is felt all over her body), back pain Focused Exam Respiratory: Crackles, Decreased Breath Sounds, Expiration, Wheezing Cardiovascular: No Edema, No Gallop, No Murmur, Normal Peripheral Pulses Peripheral Pulses: 2+ Dorsalis Pedis (R), 2+ Left Dors-Pedis (L), 2+ Radial Pulses (R), 2+ Radial Pulses (L) Objective Exam Vital Signs Date Time Temp Pulse Resp B/P (MAP) Pulse Ox O2 Delivery O2 Flow Rate FiO2 01/21/20 05:03 36.8 01/21/20 04:38 36.8 01/21/20 04:00 36.5 77 21 128/75 (92) Nasal Cannula 4.00 01/21/20 01:00 69 01/21/20 00:00 36.8 76 21 124/70 (88) 94 Nasal Cannula 5.00 01/20/20 23:10 37.0 01/20/20 23:10 37.0 01/20/20 22:40 37.0 01/20/20 22:40 37.0 01/20/20 20:50 37.0 01/20/20 20:30 98 Nasal Cannula 5.00 01/20/20 20:20 37.0 01/20/20 19:56 37.0 88 20 184/72 (109) 98 Nasal Cannula 5.00 01/20/20 19:00 66 01/20/20 18:30 90 Nasal Cannula 4.00 01/20/20 16:01 36.6 76 20 156/74 (101) 94 Nasal Cannula 5.00 01/20/20 13:00 58 01/20/20 12:03 37.0 60 18 171/73 (105) 100 Nasal Cannula 6.00 01/20/20 08:00 5 Nasal Cannula 6.00 01/20/20 08:00 36.8 64 18 158/67 (97) 96 Nasal Cannula 5.00 I & O 01/21/20 07:00 Intake Total 2080 ml Output Total 2020 ml Balance 60 ml Capillary Refill : Less Than 3 SecondsLess Than 3 Seconds General Appearance: Anxious, Chronically ill, Moderate Distress HEENT: Other (NGT in place) Neck: Non Tender, Supple Respiratory: Crackles, Decreased Breath Sounds, Expiration, Wheezing Cardiovascular: Regular Rate, Rhythm, No Edema, No Gallop, No Murmur, Normal Peripheral Pulses Peripheral Pulses: 2+ Dorsalis Pedis (R), 2+ Left Dors-Pedis (L), 2+ Radial Pulses (R), 2+ Radial Pulses (L) Gastrointestinal: abnormal bowel sounds, distended Extremity: Normal Capillary Refill, Non Tender, No Calf Tenderness, No Pedal Edema Neurologic/Psychiatric: Alert, Oriented x3 Skin: Normal Color, Warm/Dry Results Lab Laboratory Tests 01/20/20 10:44: Glucometer 129H 01/20/20 15:49: Glucometer 169H 01/20/20 20:34: Glucometer 182H 01/21/20 04:34: White Blood Count 10.4, Red Blood Count 3.64L, Hemoglobin 9.8L, Hematocrit 32L, Mean Corpuscular Volume 87, Mean Corpuscular Hemoglobin 27, Mean Corpuscular Hemoglobin Concent 31L, Red Cell Distribution Width 13.5, Platelet Count 205, Mean Platelet Volume 10.5H, Sodium Level 139, Potassium Level 3.3L, Chloride Level 99, Carbon Dioxide Level 25, Anion Gap 15H, Blood Urea Nitrogen 12, Creatinine 0.63, Estimat Glomerular Filtration Rate > 60, BUN/Creatinine Ratio 19, Glucose Level 68L, Calcium Level 7.3L, Corrected Calcium 8.7, Magnesium Level 1.1*L, Total Bilirubin 0.2, Aspartate Amino Transf (AST/SGOT) 9, Alanine Aminotransferase (ALT/SGPT) < 6, Alkaline Phosphatase 53, Total Protein 3.4L, Albumin 2.2L Microbiology 01/17/20 Blood Culture - Preliminary, Resulted No growth Assessment/Plan Assessment/Plan Assessment/Plan PSBO - - Continue suction NG tube - SBFU if >300 ml of fluid collectd - Protonix COPD: - MAT protocol - Vapotherm breathing treatment - monitor O2 Hypokalemia: IV KCl 40 mEq/l at 10 mEq/hr Hypomagnisemia: IV MgSulfate Diabetes: Hold insulin, hypoglycemic Fibromyalgia: Ropinerole and Iron Studies. Clinical Quality Measures DVT/VTE Risk/Contraindication: Risk Factor Score Per Nursin RFS Level Per Nursing on Admit: 4+=Very High GALLO TAYLOR DO 01/21/20 1547: Subjective Time Seen by a Provider: 13:39 Subjective/Events-last exam Pt seen and examined, looks worse than yesterday and states she doesn't feel good. Still having flatus, but nothing really going through. Having more SOB today. Review of Systems Pulmonary: Dyspnea, Cough Cardiovascular: Chest Pain; No: Palpitations Gastrointestinal: Nausea, Abdominal Pain; No: Vomiting Objective Exam General Appearance: Anxious, Chronically ill, Moderate Distress HEENT: PERRL/EOMI, Moist Mucous Membranes, Other (NGT in place) Respiratory: Crackles, Decreased Breath Sounds, Expiration, Wheezing Cardiovascular: Regular Rate, Rhythm, No Murmur Gastrointestinal: soft, abnormal bowel sounds, distended Neurologic/Psychiatric: Alert, Oriented x3 Assessment/Plan Assessment/Plan Assessment/Plan PSBO - seems to have stopped improving, will order SBFT, replace electrolytes, NPO. Supervisory-Addendum Brief Verification & Attestation Participated in pt care: history, MDM, physical Personally performed: exam, history, MDM Care discussed with: Medical Student Procedures: n/a Verification and Attestation of Medical Student E/M Service A medical student performed and documented this service. I then reviewed and verified all information documented by the medical student and made modific ations to such information, when appropriate. I personally performed a physical exam, medical decision making and then discussed any differences between the notes and made revisions as necessary to create one note. Gallo Taylor , 01/21/20 , 15:47 [facility] Jan 21, 2020 07:46 GALLO TAYLOR DO Jan 21, 2020 15:47
[2020-01-21] MEDS: CALCIUM CARBONATE 500 MG (TUMS) TAB.CHEW PO PRN (08:59)
[2020-01-21] MEDS: PREGABALIN 150 MG (LYRICA) CAPSULE PO SCH ×2 (08:59→20:36)
[2020-01-21] MEDS: ASPIRIN E.C. 81 MG (ECOTRIN) TAB PO SCH (08:59)
[2020-01-21] MEDS: KETOROLAC 30 MG/ML VIAL IVP PRN ×2 (08:59→16:43)
[2020-01-21] MEDS: RANOLAZINE ER 500 MG TAB (RANEXA) PO SCH ×2 (08:59→20:32)
--- NOTE | 2020-01-21 08:59 | Cardiology Progress Note ---
Subjective Date Seen by Provider: Jan 21, 2020 Time Seen by Provider: 08:56 Subjective/Events-last exam Patient is sitting up in chair, NG tube in place. C/o sore throat and abdominal pain. Reports increased dyspnea today. Denies any chest pain Review of Systems General: No Chills, No Night Sweats; Fatigue; No Malaise, No Appetite, No Other HEENT: No Head Aches, No Visual Changes, No Eye Pain, No Ear Pain, No Dysphasia, No Sinus Congestion, No Post Nasal Drip, No Sore Throat, No Other Pulmonary: Dyspnea; No Cough, No Pleuritic Chest Pain, No Other Cardiovascular: No: Chest Pain, Palpitations, Orthopnea, Paroxysmal Noc. Dyspnea, Edema, Lt Headedness, Other Objective-Cardiology Exam Last Set of Vital Signs Vital Signs 01/21/20 08:00 Temp 37.8 Pulse 90 Resp 36 B/P (MAP) 156/77 (103) Pulse Ox 95 O2 Delivery Vapotherm O2 Flow Rate 40.00 60.00 FiO2 40 Capillary Refill : Less Than 3 SecondsLess Than 3 Seconds I&O Intake and Output 01/21/20 00:00 Intake Total 1980 ml Output Total 3020 ml Balance -1040 ml Intake Oral 780 ml IV Total 1200 ml Output Urine Total 1170 ml Gastric Drainage Total 1850 ml General: Alert, Oriented X3, Cooperative HEENT: Atraumatic, PERRLA Neck: Supple, No JVD, No Thyromegaly Lungs: Normal Air Movement, Other (bilateral rhonchi) Heart: Regular Rate, Normal S1, Normal S2, No Murmurs Abdomen: Soft, No Tenderness Extremities: No Clubbing, No Cyanosis, No Edema, Normal Pulses, No Tenderness/Swelling Skin: No Rashes, No Breakdown, No Significant Lesion Neuro: Normal Speech, Strength at 5/5 X4 Ext, Normal Tone, Sensation Intact Results Lab Laboratory Tests 01/21/20 04:34 A/P-Cardiology Admission Diagnosis Sinus bradycardia SBO HTN HLP Assessment/Plan Transient episode of sinus bradycardia, was asymptomatic, continue to monitor telemetry. SBO, NG tube to suction, Dr. Kendrick managing. Hypokalemia, continue to replace and continue to monitor. Hypomagnesemia, replace and continue to monitor. Increased dyspnea, currently on Vapotherm. Continue to monitor closely Mild CAD on card cath of Sep 2014 and March 2019, normal left ventricular size and function, normal aorta and bilateral runoff H/o bilateral lower extremity pain, YOSELIN was done in May 2017 and it was normal bilaterally, normal aortogram and bilateral runoff in March 2019 Hypertension,continue to monitor blood pressure. Hyperlipidemia, treated with statin, continue to monitor as outpatient. 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 Mild bilateral carotid stenosis, last ultrasound was done in February 2019, continue to monitor. Chronic, intermittent, lower leg edema Patient was seen and evaluated with Valeria, examination performed, management plan was discussed, agree with the current scribed note, I made few changes to the note using Italic font Patient is laying down in bed, complaining of generalized weakness, still on NG suction Hypokalemia and hypomagnesemia being replaced No further episodes of bradycardia Continue to monitor heart rate and blood pressure Clinical Quality Measures DVT/VTE Risk/Contraindication: Risk Factor Score Per Nursin RFS Level Per Nursing on Admit: 4+=Very High VALERIA GEORGE Jan 21, 2020 08:59 JUAN LICONA MD Jan 21, 2020 11:40
--- NOTE | 2020-01-21 10:00 | Physical Therapy Evaluation ---
PT Evaluation-General Medical Diagnosis Admission Date Jan 17, 2020 at 10:08 Medical Diagnosis: SBO Onset Date: Jan 17, 2020 Therapy Diagnosis Therapy Diagnosis: impaired mobility, endurance Height/Weight Height (Feet): 5 Height (Inches): 1.00 Weight (Pounds): 162 Weight (Ounces): 0.0 Precautions Precautions/Isolations: Standard Precautions Weight Bear Status Right Lower Extremity: Right Weight Bearing/Tolerated Left Lower Extremity: Left Weight Bearing/Tolerated Referral Physician: Deuce Reason for Referral: Evaluation/Treatment Medical History Additional Medical History Past Medical History Surgeries: Appendectomy, Coronary Stent, Gallbladder, 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, Vascular Surgery Respiratory: COPD Currently Using CPAP: No Currently Using BIPAP: No Cardiac: Chronic Edema/Swelling, High Cholesterol, Hypertension Neurological: Headaches /Migraines, Neuropathy 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: No 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 Gastrointestinal: Obstructive Bowel, Ulcer Musculoskeletal: Arthritis, Fibromyalgia, Chronic Back Pain Endocrine: Diabetes, Non-Insulin dep Loss of Vision: Denies Hearing Impairment: Denies Psychosocial: Anxiety, Depression Skin/Integumentary: Recent Skin Changes History of Blood Disorders: No Adverse Reaction to Blood [place]: No (N/A) Reviewed History: Yes Social History Home: Single Level Current Living Status: Spouse Entry Into Home: Stairs With Railing PT Steps Into Home: 5 Prior Prior Level of Function SCALE: Activities may be completed with or without assistive devices. 8-[id number] completes the activity by him/herself with no assistance from a helper. 5-Set-up or Clean-up Assistance-helper sets up or cleans up; patient completes activity. [place] assists only prior to or following the activity. 4-Supervision or Touching Assistance-helper provides verbal cues and/or touching/steadying and/or contact guard assistance as patient completes activity. Assistance may be provided throughout the activity or intermittently. 3-Partial/Moderate Assistance-helper does LESS THAN HALF the effort. [place] lifts, holds or supports trunk or limbs, but provides less than half the effort. 2-Substantial/Maximal Assistance-helper does MORE THAN HALF the effort. [place] lifts or holds trunk or limbs and provides more than half the effort. 9-Euprbpzbd-xxgsxd does ALL the effort. Patient does none of the effort to complete the activity. Or, the assistance of 2 or more helpers is required for the patient to complete the activity. If activity was not attempted, code reason: 7-Patient Refused. 9-Not Applicable-not attempted and the patient did not perform the activity before the current illness, exacerbation or injury. 10-Not Attempted due to Environmental Limitations-(lack of equipment, weather restraints, etc.). 88-Not Attempted due to Medical Conditions or Safety Concerns. Bed Mobility: 6 Transfers (B,C,W/C): 6 Gait: 6 Stairs: 6 Indoor Mobility (Ambulation): Independent Stairs: Independent PT Evaluation-Current Subjective Patient in bed pre tx, agrees to PT, has 8/10 pain "all over" Pt/Family Goals to get her bowels working again Objective Patient Orientation: Person, Place, Situation Attachments: NG Tube, Oxygen, Sheth Catheter, IV ROM/Strength ROM Lower Extremities WNL Strength Lower Extremities 4+/5 gross BLE Sensory Vision: Wears Glasses Hearing: Functional Sensation Right Lower Extremit: Intact Sensation Left Lower Extremity: Intact Sensation Lower Extremities Patient states she has neuropathy but seems to have intact light touch sensation in both legs. Transfers Roll Left to Right (QC): 6 Sit to Lying (QC): 6 Lying to Sitting/Side of Bed(Q: 3 Patient sat on the side of the bed for about 10 min and performed LE exercises. Balance Sitting Static: Normal Sitting Dynamic: Normal Treatment BLE seated exercises x20 (AP, LAQ, hip flexion) Assessment/Needs Patient has impaired mobility, endurance. She has good strength and has already been to the bathroom and in the recliner with nurse assist for all of her lines. Rehab Potential: Fair PT Clinic Clerk Goals Senior Living Goals PT Senior Living Goals Time Frame: Jan 28, 2020 Roll Left & Right (QC): 6 Sit to Lying (QC): 6 Lying-Sitting on Side/Bed(QC): 6 Sit to Stand (QC): 6 Chair/Nol-ga-Gtmlk Xfer(QC): 6 Walk 10 feet (QC): 4 Walk 50ft with 2 Turns (QC): 4 PT Plan Problem List Problem List: Activity Tolerance, Functional Strength, Safety, Balance, Gait, Transfer, Bed Mobility Treatment/Plan Treatment Plan: Continue Plan of Care Treatment Plan: Bed Mobility, Education, Functional Activity Nito, Functional Strength, Gait, Safety, Therapeutic Exercise, Transfers Treatment Duration: Jan 28, 2020 Frequency: 6 times per week Estimated Hrs Per Day: .25 hour per day Patient and/or Family Agrees t: Yes Safety Risks/Education Patient Education: Transfer Techniques, Correct Positioning, Safety Issues Teaching Recipient: Patient Teaching Methods: Demonstration, Discussion Response to Teaching: Reinforcement Needed Discharge Recommendations Plan Patient will perform bed mobility and transfer training, balance and endurance training, functional strengthening, stair training, gait training, and education, to improve functional mobility and independence at home. Therapy Discharge Recommendati: Home & Family Time/GCodes Time In: 0937 Time Out: 0953 Total Billed Treatment Time: 16 Total Billed Treatment 1 visit PRIMITIVO 16' TIARA LOPEZ PT Jan 21, 2020 10:00
--- NOTE | 2020-01-21 10:49 | NUR ---
CM/SS follow up with the patient. CM/SS discussed with the patient her thoughts after looking at the patient preference form for home health. Home Health: She states that she would like to use [facility]. CM/SS contacted the DME and spoke with Jennifer and faxed medical information. Will fax finalized orders when available. CM/SS informed them that this ss is unsure about discharge date and home health orders. They verbalized understanding. Will continue to follow and update DME.
[2020-01-21] MEDS: ENOXAPARIN 40 MG/0.4 ML (LOVENOX) SYR SC SCH (12:23)
[2020-01-21] MEDS: POTASSIUM CL 10MEQ/50ML IVPB 50 ML IV SCH ×2 (12:24→13:49)
[2020-01-21] MEDS: MAGNESIUM 1 GM/100 ML IVPB 100 ML IV SCH ×2 (12:25→13:49)
[2020-01-21] MEDS: LORazepam INJ 2 MG/ML (ATIVAN) VIAL IVP PRN ×2 (12:49→20:38)
--- NOTE | 2020-01-21 14:19 | NUR ---
"RD ASSESSMENT PMHx: HTN; CAD; DM; HLD; COPD; GERD; obstructive bowel PT INTERACTION: Pt was awake and pleasant during nutrition assessment. Pt states current appetite is poor. Note avg PO intake of <25% x2d, per chart review. Pt states following a regular diet at home, and has some difficulty at times chewing/swallowing food. Pt states no recent issues with n/v. Note pt reports episodes of nausea and vomiting in H&P, per chart review. Pt states no recent issues with constipation/diarrhea. Note pt current admit for small bowel obstruction. Note last BM was 01/18, and pt not currently on bowel regimen per chart review. Pt states recent 9# wt gain, but did not state timeframe. Note recent 26# wt loss x1mon per chart review. Pt states current DM management is pretty good with avg blood glucose level of 145. Note unable to determine recent HbA1c, per chart review. ABNORMAL NUTRITION-RELATED LAB VALUES LOW: K 3.3; glu 68; Mg 1.1; Pro 3.4; alb 2.2 HIGH: Est. kcal needs: 4049-7697 kcal | 20-25 kcal/kg Est. Pro needs: 60-75 g Pro | 0.8-1.0 g Pro/kg PES STATEMENT: Inadequate oral intake (NI-2.1) related to loss of appetite | nausea | vomiting as evidenced by pt interview | chart review of H&P | avg PO intake <25% x2d INTERVENTION: Continue with current diet order of Clear Liquid diet. Add Ensure Clear (apple) to meals TID, for increased kcal intake. Providers 250 kcal and 8 g Pro per serving. Replete Mg, as current levels are abnormally low. Will continue to follow and reassess as pt needs, intake, and status change. MONITOR/EVALUATE: PO Intake; Plan of Care; Hydration Status; Weight Status; Lab Values Navneet Jenkins, MS, RD, LD"
--- NOTE | 2020-01-21 14:30 | Progress Note - Hospitalist ---
Subjective HPI/CC On Admission Date Seen by Provider: Jan 21, 2020 Time Seen by Provider: 13:30 Vira Irizarry is a 69-year-old female with past medical history of hypertension, diabetes, coronary artery disease, hyperlipidemia, anxiety, COPD, GERD, restless leg syndrome, who presented with abdominal pain. She reports that the pain is severe and diffuse. She reports that she has been nauseous and vomiting. She reports that all her symptoms started after she ate cabbage last night. She had a similar episode previously when she ate broccoli and developed a small bowel obstruction. She denies any fevers or chills. She denies any hematemesis. She has not been passing gas or had a bowel movement. Subjective/Events-last exam Pt reports not feeling well. Still having flatus but no further BM. Objective Exam Vital Signs Vital Signs Date Time Temp Pulse Resp B/P (MAP) Pulse Ox O2 Delivery O2 Flow Rate FiO2 01/21/20 12:00 37.2 73 20 147/78 (101) 97 Vapotherm 40.00 60.00 01/21/20 11:52 60 Capillary Refill : Less Than 3 SecondsLess Than 3 Seconds General Appearance: No Apparent Distress, Chronically ill Respiratory: Lungs Clear, Other (on vapotherm) Cardiovascular: Regular Rate, Rhythm, No Murmur Neurologic/Psychiatric: Alert, Oriented x3 Results/Procedures Lab Laboratory Tests 01/21/20 04:34 Patient resulted labs reviewed. Imaging: Reviewed Imaging Report Assessment/Plan Assessment and Plan Assess & Plan/Chief Complaint Small bowel obstruction CT abdomen revealed small bowel obstruction Surgery consulted, appreciate assistance Continue IV fluids Continue ambulation Incentive spirometry - Hopeful to avoid surgery if at all possible, now passing flatus - NGT in place - CLD Hypoxia COPD - Pulm consulted, appreciate recs - Now on Vapotherm - CXR - Flu swab Bradycardia- resolved Follows with Dr. Smith Consult cardiology, appreciate assistance T2DM Sliding scale insulin Anxiety - Continue ativan IV Hypertension Coronary artery disease Hyperlipidemia GERD Restless leg syndrome Resume home meds DVT prophylaxis: Lovenox Clinical Quality Measures DVT/VTE Risk/Contraindication: Risk Factor Score Per Nursin RFS Level Per Nursing on Admit: 4+=Very High ARTEMIO APARICIO MD Jan 21, 2020 14:30
--- NOTE | 2020-01-21 15:53 | Diagnostic Imaging Report ---
INDICATION: Increasing oxygen requirement. TIME OF EXAM: 3:15 PM. COMPARISON: Correlation is made with the prior chest from 01/17/2020. FINDINGS: The heart size is stable. The patient has developed airspace infiltrate in the right mid and lower lung field since the prior exam, suggestive of pneumonia. The left lung is clear. No effusion or pneumothorax is seen. A nasogastric tube passes into the stomach. IMPRESSION: Development of right-sided airspace infiltrate, consistent with pneumonia. Dictated by: Dictated on workstation # [id number]
[2020-01-21] MEDS ORDERED: DIATRIZOATE MEGLUM/SODIUM 37% 120 ML (GASTROGRAFIN) NG ONE (17:45)
--- NOTE | 2020-01-21 18:12 | Diagnostic Imaging Report ---
INDICATION: Partial small bowel obstruction. FINDINGS: Director Medical Safety KUB demonstrates a nasogastric tube in the stomach. A couple of mildly dilated loops of small bowel are present. Surgical changes are present in the abdomen. Patient was given 120 mL of Gastrografin. Exam demonstrates no obstruction. Contrast reaches the colon at 30 minutes. IMPRESSION: No obstruction is present. Dictated by: Dictated on workstation # [id number]
[2020-01-21] MEDS: QUEtiapine 100 MG (SEROquel) TAB IMMEDIATE RELEASE PO SCH (20:37)
[2020-01-21] MEDS: rOPINIRole 1 MG (REQUIP) TABLET PO SCH (20:37)
[2020-01-21] MEDS: PROMETHAZINE INJ 25 MG/ML (PHENERGAN) AMP IVP PRN (20:38)
--- NOTE | 2020-01-22 00:26 | NUR ---
0000 upon 2400 assessment pox 77 on room air pt had taken 02 out of her nose vapotherm o2 increased to 85% via direction of rt.. 0025 recheck pox 96% pt is at this time resting quietly
[2020-01-22] MEDS: LACTATED RINGERS 1,000 ML IV SCH ×4 (00:44→21:05)
[2020-01-22] MEDS: ONDANSETRON 4 MG/2 ML (SDV) Z0FRAN IV PRN ×3 (01:28→21:00)
[2020-01-22] MEDS: fentaNYL INJECTION 100 MCG/2 ML AMP IV PRN ×4 (01:28→17:35)
[2020-01-22] MEDS: RT-ALBUTEROL/IPRATROPIUM 3 ML (DUONEB) VIAL INH SCH ×4 (02:33→19:06)
[2020-01-22 03:54] VITALS: BP 169/72
[2020-01-22] MEDS: PROMETHAZINE INJ 25 MG/ML (PHENERGAN) AMP IVP PRN ×2 (05:49→20:59)
[2020-01-22] MEDS: KETOROLAC 30 MG/ML VIAL IVP PRN ×2 (05:50→21:00)
[2020-01-22] MEDS: inSUlin ASPART (NovoLOG) 1 UNIT/0.01 ML (CHARGE PER UNIT) SC SCH ×4 (05:50→21:00)
--- NOTE | 2020-01-22 06:21 | NUR ---
pt c/o trujillo and general body ache.. pain meds given as ordered cont on vapotherm o2 75% vs stable ng tube to suction
[2020-01-22 06:22] LABS: HEMOGLOBIN 10.5 G/DL (11.5-16.0); MEAN PLATELET VOLUME 10.4 FL (7.4-10.4); RED CELL DISTRIBUTION WIDTH 14.3 % (10.0-14.5); WHITE BLOOD COUNT 20.1 10^3/uL (4.3-11.0)
[2020-01-22 06:31] LABS: ALBUMIN 3.3 GM/DL (3.2-4.5); BILIRUBIN,TOTAL 0.4 MG/DL (0.1-1.0); CALCIUM 8.5 MG/DL (8.5-10.1); CREATININE SERUM 1.02 MG/DL (0.60-1.30); POTASSIUM 2.8 MMOL/L (3.6-5.0); TOTAL PROTEIN 5.7 GM/DL (6.4-8.2)
--- NOTE | 2020-01-22 07:51 | Progress Note - Surgery ---
[facility] 01/22/20 0751: Subjective Date Seen by a Provider: Jan 22, 2020 Time Seen by a Provider: 07:30 Subjective/Events-last exam Patient states that she is still moderately distressed. Patient states she is experiencing chest tightness, cough, esophageal pain, abdominal pain, severe headache, and diffuse muscular and joint pain. She is anxious to the reason as why she isn't improving, even though the SBFT showed no obstruction. Review of Systems General: Fatigue, Malaise HEENT: Head Aches; No Visual Changes; Sore Throat Pulmonary: Dyspnea, Cough Cardiovascular: No: Palpitations, Edema, Lt Headedness Gastrointestinal: Abdominal Pain; No: Nausea, Vomiting Genitourinary: Other (alexander catheter still in place ) Musculoskeletal: arm pain (Pain in her R arm, which she states was operated on for carpal tunnel), back pain Neurological: Weakness, Numbness (neuropathy in feet ) Focused Exam Respiratory: No Accessory Muscle Use, Decreased Breath Sounds, Expiration, Respiratory Distress, Other (coarse expiratory breath sounds ) Cardiovascular: Regular Rate, Rhythm, No Edema, No Gallop, No Murmur, Normal Peripheral Pulses Peripheral Pulses: 2+ Dorsalis Pedis (R), 2+ Left Dors-Pedis (L), 2+ Radial Pulses (R), 2+ Radial Pulses (L) Skin: other (laparotomy scar ) Objective Exam Vital Signs Date Time Temp Pulse Resp B/P (MAP) Pulse Ox O2 Delivery O2 Flow Rate FiO2 01/22/20 07:00 76 01/22/20 06:20 37.4 01/22/20 05:50 37.4 01/22/20 03:54 37.4 82 24 169/72 (104) 91 Vapotherm 30.00 75.00 01/22/20 02:33 98 Vapotherm 35.00 82 01/22/20 01:58 37.4 01/22/20 01:28 37.0 01/22/20 01:00 82 01/21/20 23:48 37.0 83 26 155/67 (96) 96 Vapotherm 40.00 80.00 01/21/20 21:00 37.0 01/21/20 20:31 37.0 01/21/20 20:30 93 Vapotherm 15.00 01/21/20 20:08 37.0 78 20 152/68 (96) 93 Nasal Cannula 15.00 01/21/20 19:11 95 OxyMask 10.00 01/21/20 19:00 80 01/21/20 18:19 36.4 84 24 137/76 (96) 97 Nasal Cannula 15.00 01/21/20 16:20 36.9 72 24 159/73 (101) 94 Vapotherm 40.00 60.00 01/21/20 15:28 92 Vapotherm 40.00 60 01/21/20 12:50 77 01/21/20 12:00 37.2 73 20 147/78 (101) 97 Vapotherm 40.00 60.00 01/21/20 11:52 94 Vapotherm 40.00 60 01/21/20 08:00 95 Vapotherm 40 01/21/20 08:00 37.8 90 36 156/77 (103) 94 Vapotherm 40.00 60.00 01/21/20 07:57 90 Vapotherm 40.00 60 I & O 01/22/20 07:00 Intake Total 758 ml Output Total 4100 ml Balance -3342 ml Capillary Refill : Less Than 3 SecondsLess Than 3 Seconds General Appearance: Anxious, Chronically ill, Moderate Distress HEENT: Other (NGT in place) Respiratory: No Accessory Muscle Use, Crackles, Decreased Breath Sounds, Expiration, Wheezing Cardiovascular: Regular Rate, Rhythm, No Edema, No Gallop, No Murmur, Normal Peripheral Pulses Peripheral Pulses: 2+ Dorsalis Pedis (R), 2+ Left Dors-Pedis (L), 2+ Radial Pulses (R), 2+ Radial Pulses (L) Gastrointestinal: abnormal bowel sounds, distended Extremity: Normal Capillary Refill, Non Tender, No Calf Tenderness, No Pedal Edema Neurologic/Psychiatric: Alert, Oriented x3 Skin: Normal Color, Warm/Dry Results Lab Laboratory Tests 01/21/20 11:17: Glucometer 151H 01/21/20 15:51: Glucometer 144H 01/21/20 19:40: Glucometer 134H 01/22/20 05:21: White Blood Count 20.1H, Red Blood Count 3.80L, Hemoglobin 10.5L, Hematocrit 33L , Mean Corpuscular Volume 88, Mean Corpuscular Hemoglobin 28, Mean Corpuscular Hemoglobin Concent 32, Red Cell Distribution Width 14.3, Platelet Count 227, Mean Platelet Volume 10.4, Sodium Level 144, Potassium Level 2.8L, Chloride Level 91L, Carbon Dioxide Level 42H, Anion Gap 11, Blood Urea Nitrogen 18, Creatinine 1.02, Estimat Glomerular Filtration Rate 54, BUN/Creatinine Ratio 18, Glucose Level 137H, Calcium Level 8.5, Corrected Calcium 9.1, Magnesium Level 2.0, Total Bilirubin 0.4, Aspartate Amino Transf (AST/SGOT) 12, Alanine Aminotransferase (ALT/SGPT) 7, Alkaline Phosphatase 73, Total Protein 5.7L, Albumin 3.3 01/22/20 06:12: Glucometer 170H Microbiology 01/17/20 Blood Culture - Preliminary, Resulted No growth Assessment/Plan Assessment/Plan Assessment/Plan SBFU: showed no bowel obstruction. - NG Tube: 01/19: 2200 mL, 01/20: 1200 mL - Continue Liquid Diet Hypokalemia: IV KCl 40 mEq/L COPD/Respiratory Distress: continue Vapotherm, monitor O2 Leukocytosis: CXR to rule out pneumonia, pancultures. DM: continue home medications Pain: - R Arm: topical NSAID cream - Fibromyalgia: Toradol PRN Clinical Quality Measures DVT/VTE Risk/Contraindication: Risk Factor Score Per Nursin RFS Level Per Nursing on Admit: 4+=Very High GALLO TAYLOR DO 01/22/20 1025: Subjective Time Seen by a Provider: 09:46 Subjective/Events-last exam Pt seen and examined, main complaint is trouble breathing. Still passing gas and having BM's. Review of Systems General: Fatigue, Malaise Pulmonary: Dyspnea, Cough Cardiovascular: No: Palpitations, Edema Gastrointestinal: Abdominal Pain; No: Nausea, Vomiting Objective Exam General Appearance: Anxious, Chronically ill Respiratory: Crackles, Decreased Breath Sounds, Expiration Cardiovascular: Regular Rate, Rhythm, No Murmur Gastrointestinal: soft, abnormal bowel sounds, distended (very mild) Assessment/Plan Assessment/Plan Assessment/Plan PSBO - appears resolved, SBFT was into right colon within 30 min. Will D/C NGT and start clears; will also sign off and allow medicine to treat her Pnemonia. I can reconsult if needed. Supervisory-Addendum Brief Verification & Attestation Participated in pt care: history, MDM, physical Personally performed: exam, history, MDM Care discussed with: Medical Student Procedures: n/a Verification and Attestation of Medical Student E/M Service A medical student performed and documented this service. I then reviewed and verified all information documented by the medical student and made modifications to such information, when appropriate. I personally performed a physical exam, medical decision making and then discussed any differences between the notes and made revisions as necessary to create one note. Gallo Taylor , 01/22/20 , 10:25 [facility] Jan 22, 2020 07:51 GALLO TAYLOR DO Jan 22, 2020 10:25
[2020-01-22 08:07] VITALS: BP 145/63
[2020-01-22] MEDS: CALCIUM CARBONATE 500 MG (TUMS) TAB.CHEW PO PRN (08:23)
[2020-01-22] MEDS: LORazepam INJ 2 MG/ML (ATIVAN) VIAL IVP PRN ×2 (08:24→21:01)
[2020-01-22] MEDS ORDERED: PIPERACILLIN/TAZO 4.5 GM/NS 100 ML IV NR ×2 (08:30)
[2020-01-22] MEDS: PREGABALIN 150 MG (LYRICA) CAPSULE PO SCH ×2 (09:34→20:59)
[2020-01-22] MEDS: ASPIRIN E.C. 81 MG (ECOTRIN) TAB PO SCH (09:34)
[2020-01-22] MEDS: RANOLAZINE ER 500 MG TAB (RANEXA) PO SCH ×2 (09:34→20:59)
--- NOTE | 2020-01-22 11:00 | NUR ---
NG TUBE DC INSTRUCTED BY DR TAYLOR, CLEAR LIQUID DIET ORDERED
--- NOTE | 2020-01-22 11:10 | Physical Therapy Daily Note ---
PT Daily Note-Current Subjective Patient states pain is 9/10 generally throughout the body. Patient was able to move uninhibited and stand easily with no problem. Patient was excited about being able to eat solid food. Appearance Patient returned to recliner with call light, tray in reach, told not to get up without calling RN. Mental Status Patient Orientation: Person, Place, Eyes Open Attachments: Oxygen, Sheth Catheter, IV Transfers SCALE: Activities may be completed with or without assistive devices. 4-Pqoljnelkw-zoxyihd completes the activity by him/herself with no assistance from a helper. 5-Set-up or Clean-up Assistance-helper sets up or cleans up; patient completes activity. [place] assists only prior to or following the activity. 4-Supervision or Touching Assistance-helper provides verbal cues and/or touching/steadying and/or contact guard assistance as patient completes activity. Assistance may be provided throughout the activity or intermittently. 3-Partial/Moderate Assistance-helper does LESS THAN HALF the effort. [place] lifts, holds or supports trunk or limbs, but provides less than half the effort. 2-Substantial/Maximal Assistance-helper does MORE THAN HALF the effort. [place] lifts or holds trunk or limbs and provides more than half the effort. 1-Hsjotlcgm-etcqyq does ALL the effort. Patient does none of the effort to complete the activity. Or, the assistance of 2 or more helpers is required for the patient to complete the activity. If activity was not attempted, code reason: 7-Patient Refused. 9-Not Applicable-not attempted and the patient did not perform the activity before the current illness, exacerbation or injury. 10-Not Attempted due to Environmental Limitations-(lack of equipment, weather restraints, etc.). 88-Not Attempted due to Medical Conditions or Safety Concerns. Roll Left & Right (QC): 6 Lying to Sitting/Side of Bed(Q: 6 Sit to Stand (QC): 4 (CGA) Chair/Zof-uy-Zqecn Xfer(QC): 4 (CGA) Weight Bearing Right Lower Extremity: Right Weight Bearing/Tolerated Left Lower Extremity: Left Weight Bearing/Tolerated Gait Training Does the Patient Walk?: Yes Distance: 5ft Gait Assistive Device: FWW Ambulates with good posture and proper gait cycle with no sign of painful patterns. Exercises Seated Therapy Exercises: Ankle pumps, Long arc quads Seated Reps: 10 Treatments bed mobility and transfers, ambulation, LE exercise Assessment Current Status: Good Progress cues for safety and positioning PT Inbound Call Center Representative Goals Inbound Call Center Representative Goals PT Detention Goals Time Frame: Jan 28, 2020 Roll Left & Right (QC): 6 Sit to Lying (QC): 6 Lying-Sitting on Side/Bed(QC): 6 Sit to Stand (QC): 6 Chair/Cnc-cq-Xddfd Xfer(QC): 6 Walk 10 feet (QC): 4 Walk 50ft with 2 Turns (QC): 4 PT Plan Problem List Problem List: Activity Tolerance, Functional Strength, Safety, Balance, Gait, Transfer, Bed Mobility Treatment/Plan Treatment Plan: Continue Plan of Care Treatment Plan: Bed Mobility, Education, Functional Activity Nito, Functional Strength, Gait, Safety, Therapeutic Exercise, Transfers Treatment Duration: Jan 28, 2020 Frequency: 6 times per week Estimated Hrs Per Day: .25 hour per day Patient and/or Family Agrees t: Yes Safety Risks/Education Patient Education: Gait Training, Transfer Techniques, Correct Positioning, Disease Process, Safety Issues Teaching Recipient: Patient Teaching Methods: Demonstration, Discussion, Audiovisual Response to Teaching: Verbalize Understanding, Return Demonstration, Reinforcement Needed Time/GCodes Time In: 1052 Time Out: 1102 Total Billed Treatment Time: 10 Total Billed Treatment Visit 1 FA TIARA JUNIOR PT Jan 22, 2020 11:10
--- NOTE | 2020-01-22 11:20 | Cardiology Progress Note ---
Subjective Date Seen by Provider: Jan 22, 2020 Time Seen by Provider: 08:50 Subjective/Events-last exam Patient is sitting up in bed, NG tube in place, continues to c/o dyspnea, denies any chest pain. Review of Systems General: No Chills, No Night Sweats, No Fatigue, No Malaise, No Appetite, No Other HEENT: No Head Aches, No Visual Changes, No Eye Pain, No Ear Pain, No Dysphasia, No Sinus Congestion, No Post Nasal Drip, No Sore Throat, No Other Pulmonary: No Dyspnea, No Cough, No Pleuritic Chest Pain, No Other Cardiovascular: No: Chest Pain, Palpitations, Orthopnea, Paroxysmal Noc. Dyspnea, Edema, Lt Headedness, Other Focused Exam Lactate Level 01/22/20 08:40: Lactic Acid Level 0.62 Lactic Acid Level Laboratory Tests Test 01/22/20 08:40 Lactic Acid Level 0.62 MMOL/L (0.50-2.00) Objective-Cardiology Exam Last Set of Vital Signs Vital Signs 01/22/20 01/22/20 09:22 11:37 Temp 36.9 Pulse 80 Resp 24 B/P (MAP) 144/63 (90) Pulse Ox 99 O2 Delivery Vapotherm O2 Flow Rate 30.00 75.00 FiO2 75 Capillary Refill : Less Than 3 SecondsLess Than 3 Seconds I&O Intake and Output 01/22/20 00:00 Intake Total 858 ml Output Total 2900 ml Balance -2042 ml Intake Oral 858 ml Output Urine Total 700 ml Gastric Drainage Total 2200 ml # Bowel Movements 2 General: Alert, Oriented X3, Cooperative HEENT: Atraumatic, PERRLA Neck: Supple, No JVD, No Thyromegaly Lungs: Normal Air Movement, Other (bilateral rhonchi) Heart: Regular Rate, Normal S1, Normal S2, No Murmurs Abdomen: Soft, No Tenderness Extremities: No Clubbing, No Cyanosis, No Edema, Normal Pulses, No Tenderness/Swelling Skin: No Rashes, No Breakdown, No Significant Lesion Neuro: Normal Speech, Strength at 5/5 X4 Ext, Normal Tone, Sensation Intact Results Lab Laboratory Tests 01/22/20 05:21 A/P-Cardiology Admission Diagnosis Sinus bradycardia SBO HTN HLP Assessment/Plan Transient episode of sinus bradycardia, was asymptomatic, continue to monitor telemetry. CORYO, , Dr. Kendrick managing. Hypokalemia, continue to replace and continue to monitor. Hypomagnesemia, improved, continue to monitor. Pneumonia, currently on Vapotherm. started in IV antibiotics, followed by hospitalist service. Mild CAD on card cath of Sep 2014 and March 2019, normal left ventricular size and function, normal aorta and bilateral runoff H/o bilateral lower extremity pain, YOSELIN was done in May 2017 and it was normal bilaterally, normal aortogram and bilateral runoff in March 2019 Hypertension,continue to monitor blood pressure. Hyperlipidemia, treated with statin, continue to monitor as outpatient. 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 Mild bilateral carotid stenosis, last ultrasound was done in February 2019, continue to monitor. Chronic, intermittent, lower leg edema Patient was seen and evaluated with Valeria, examination performed, management plan was discussed, agree with the current scribed note, I made few changes to the note using Italic font Clinically improving, still having significant NG suction Started on antibiotic Electrolytes being monitored and replaced with the primary care physician Cardiac status at this time is stable, I will sign off and reconsult if needed. Thank you for allowing us to proximal patent and management of Mrs. Irizarry Clinical Quality Measures DVT/VTE Risk/Contraindication: Risk Factor Score Per Nursin RFS Level Per Nursing on Admit: 4+=Very High VALERIA GEORGE Jan 22, 2020 11:20 JUAN LICONA MD Jan 22, 2020 12:06
[2020-01-22 11:37] VITALS: BP 144/63
[2020-01-22] MEDS: ENOXAPARIN 40 MG/0.4 ML (LOVENOX) SYR SC SCH (12:02)
--- NOTE | 2020-01-22 14:41 | Progress Note - Hospitalist ---
Subjective HPI/CC On Admission Date Seen by Provider: Jan 22, 2020 Time Seen by Provider: 11:50 Vira Irizarry is a 69-year-old female with past medical history of hypertension, diabetes, coronary artery disease, hyperlipidemia, anxiety, COPD, GERD, restless leg syndrome, who presented with abdominal pain. She reports that the pain is severe and diffuse. She reports that she has been nauseous and vomiting. She reports that all her symptoms started after she ate cabbage last night. She had a similar episode previously when she ate broccoli and developed a small bowel obstruction. She denies any fevers or chills. She denies any hematemesis. She has not been passing gas or had a bowel movement. Subjective/Events-last exam Pt reports feeling much better today. Sitting up in chair. NGT out. Eating a pop sicle. Requesting DC home. Focused Exam Lactate Level 01/22/20 08:40: Lactic Acid Level 0.62 Objective Exam Vital Signs Vital Signs Date Time Temp Pulse Resp B/P (MAP) Pulse Ox O2 Delivery O2 Flow Rate FiO2 01/22/20 12:41 82 01/22/20 11:37 36.9 24 144/63 (90) 99 Vapotherm 30.00 75.00 01/22/20 09:22 75 Capillary Refill : Less Than 3 SecondsLess Than 3 Seconds General Appearance: No Apparent Distress, Chronically ill Respiratory: Lungs Clear, No Respiratory Distress Cardiovascular: Regular Rate, Rhythm, No Murmur Gastrointestinal: Normal Bowel Sounds, Soft Neurologic/Psychiatric: Alert, Oriented x3 Results/Procedures Lab Laboratory Tests 01/22/20 05:21 Patient resulted labs reviewed. Imaging: Reviewed Imaging Report Assessment/Plan Assessment and Plan Assess & Plan/Chief Complaint Small bowel obstruction CT abdomen revealed small bowel obstruction Surgery consulted, appreciate assistance Continue IV fluids Continue ambulation Incentive spirometry - Hopeful to avoid surgery if at all possible, now passing flatus - NGT out - Small bowel follow through showed no obstruction - CLD Pneumonia COPD - Pulm consulted, appreciate recs - Now on Vapotherm - CXR shows pneumonia - Flu swab negative - Zosyn added Bradycardia- resolved Follows with Dr. Smith Consult cardiology, appreciate assistance T2DM Sliding scale insulin Anxiety - Continue ativan IV Hypertension Coronary artery disease Hyperlipidemia GERD Restless leg syndrome Resume home meds DVT prophylaxis: Lovenox Clinical Quality Measures DVT/VTE Risk/Contraindication: Risk Factor Score Per Nursin RFS Level Per Nursing on Admit: 4+=Very High ARTEMIO APARICIO MD Jan 22, 2020 14:41
[2020-01-22] MEDS: PIPERACILLIN/TAZOBACTAM (BULK) 4.5 GM in NS (IVPB) 100 ML IV SCH ×2 (15:25→23:00)
[2020-01-22] MEDS ORDERED: KCL 20 MEQ TAB (K-DUR) PO NR (15:30)
[2020-01-22 16:00] VITALS: BP 131/61
[2020-01-22 17:17] VITALS: BP 131/61
[2020-01-22 20:00] VITALS: BP 149/67
[2020-01-22] MEDS: QUEtiapine 100 MG (SEROquel) TAB IMMEDIATE RELEASE PO SCH (20:58)
[2020-01-22] MEDS: rOPINIRole 1 MG (REQUIP) TABLET PO SCH (20:58)
--- NOTE | 2020-01-22 23:20 | NUR ---
order recieved to rebecca tele
[2020-01-23 00:31] VITALS: BP 99/51
[2020-01-23] MEDS: inSUlin ASPART (NovoLOG) 1 UNIT/0.01 ML (CHARGE PER UNIT) SC SCH ×4 (05:47→22:36)
[2020-01-23] MEDS: PIPERACILLIN/TAZOBACTAM (BULK) 4.5 GM in NS (IVPB) 100 ML IV SCH ×3 (05:59→22:51)
[2020-01-23 06:01] LABS: HEMOGLOBIN 8.5 G/DL (11.5-16.0); RED CELL DISTRIBUTION WIDTH 14.4 % (10.0-14.5)
--- NOTE | 2020-01-23 06:23 | Pulmonary Consultation ---
History of Present Illness History of Present Illness Date of Admission Allergies and Home Medications Allergies Coded Allergies: Iodinated Contrast Media (Verified Allergy, Mild, HIVES, 12/08/19) linezolid (Verified Allergy, Mild, HIVE, 12/08/19) Home Medications Albuterol Sulfate 2.5 Mg/3 Ml Vial.neb, 2.5 MG NEB QID PRN for SHORTNESS OF BREATH, (Reported) Albuterol/Ipratropium 4 Gm Aero, 1 PUFF IH QID, (Reported) Alprazolam 1 Mg Tablet, 1 MG PO 0800,1200, (Reported) Alprazolam 1 Mg Tablet, 0.5 MG PO HS, (Reported) Aspirin 81 Mg Tablet.dr, 81 MG PO DAILY, (Reported) Atorvastatin Calcium 10 Mg Tablet, 10 MG PO HS, (Reported) Cetirizine HCl 10 Mg Tablet, 10 MG PO DAILY, (Reported) Cyanocobalamin 1,000 Mcg/Ml Inj, 1,000 MCG IM ONCE, (Reported) Cyclobenzaprine HCl 10 Mg Tablet, 10 MG PO TID PRN for MUSCLE SPASMS, (Reported) Dicyclomine HCl 10 Mg Capsule, 10 MG PO BID, (Reported) Fluticasone Propionate 9.9 Ml [place].susp, 1 SPRAY NS DAILY, (Reported) 1 SPRAY EACH NARE DAILY Fluticasone/Salmeterol 1 Each Blst.w.dev, 1 PUFF IH BID, (Reported) Furosemide 20 Mg Tablet, 20 MG PO DAILY, (Reported) Insulin Glargine,Hum.rec.anlog 100 Unit/1 Ml Insuln.pen, 10 UNIT SQ HS, (Reported) Meclizine HCl 25 Mg Tablet, 25 MG PO TID PRN for VERTIGO, (Reported) Metformin HCl 1,000 Mg Tablet, 1,000 MG PO BID WITH MEALS, (Reported) Metoclopramide HCl 10 Mg Tablet, 10 MG PO QID, (Reported) Montelukast Sodium 10 Mg Tablet, 10 MG PO HS, (Reported) Omeprazole 20 Mg Capsule.dr, 20 MG PO BID, (Reported) Oxycodone HCl 30 Mg Tablet, 30 MG PO Q6H PRN for PAIN-SEVERE (8-10), (Reported) Potassium Chloride 10 Meq Tab.er.prt, 10 MEQ PO TID, (Reported) Pregabalin 150 Mg Capsule, 150 MG PO BID, (Reported) Quetiapine Fumarate 50 Mg Tablet, 50 MG PO HS, (Reported) Ranitidine HCl 150 Mg Tablet, 150 MG PO BID, (Reported) Ranolazine 500 Mg Tab.er.12h, 500 MG PO BID, (Reported) Ropinirole HCl 1 Mg Tablet, 1 MG PO HS, (Reported) Past Uzgjwkv-Vdznqq-Abkbkh Hx Past Med/Social Hx: Reviewed Nursing Past Med/Soc Hx Patient Social History Alcohol Use: Denies Use Number of Drinks Today: GG Alcohol Beverage of Choice: Rum, Whiskey, [place], Vodka Recreational Drug Use: No Smoking Status: Current Everyday Smoker Type Used: Cigarettes 2nd Hand Smoke Exposure: Yes Recent Foreign Travel: No Contact w/Someone Who Travel: No Recent Infectious Disease Expo: No Recent Hopitalizations: Yes (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) Physical Abuse: No Sexual Abuse: No Mistreated: No Fear: No Immunizations Up To Date Tetanus Booster (TDap): Unknown Date of Pneumonia Vaccine: Sep 16, 2019 Date of Influenza Vaccine: Sep 15, 2019 Seasonal Allergies Seasonal Allergies: Yes Past Medical History Surgeries: Yes (several exploratomy laparotomies, hernia with mesh, several lysis) Appendectomy, Coronary Stent, Gallbladder, 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, Vascular Surgery Respiratory: Yes (wears 3L NC at all times) Chronic Bronchitis, COPD, Emphysema Currently Using CPAP: No Currently Using BIPAP: No Cardiac: Yes (CHF) Chronic Edema/Swelling, High Cholesterol, Hypertension Neurological: Yes Headaches /Migraines, Neuropathy : No 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 Disorders: No BEHAVIORAL HEALTH RN History: 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 Genitourinary: No Gastrointestinal: Yes (SEVERAL BOWEL OBSTRUCTIONS, chronic abd pain) Obstructive Bowel, Ulcer Musculoskeletal: Yes Arthritis, Fibromyalgia, Chronic Back Pain Endocrine: Yes Diabetes, Non-Insulin dep HEENT: Yes (GLASSES) Loss of Vision: Denies Hearing Impairment: Denies Cancer: No Psychosocial: Yes Anxiety, Depression Integumentary: Yes (CHRONIC ABDOMINAL WOUND--MRSA) Recent Skin Changes Blood Disorders: No Adverse Reaction/Blood Tranf: No (N/A) Family Medical History Reviewed Nursing Family Hx Colon cancer G8 BROTHER (PANCREATIC) Dementia 19 MOTHER G8 BROTHER Hypertension 19 MOTHER Myocardial infarction G8 BROTHER Diabetes, Hypertension, Other Conditions/Hx (Mother from pneumonia last year) Sepsis Event Evaluation Height, Weight, BMI Height: 5'1.00" Weight: 162lbs. 0.0oz. 73.525149ao; 31.17 BMI Method:Stated Exam Exam Vital Signs Date Time Temp Pulse Resp B/P (MAP) Pulse Ox O2 Delivery O2 Flow Rate FiO2 01/23/20 03:00 18 01/23/20 01:51 93 Vapotherm 16.00 50 01/23/20 00:31 36.4 68 20 99/51 (67) 96 Vapotherm 20.00 20.00 01/22/20 21:30 36.4 01/22/20 21:00 37.0 01/22/20 20:00 37.4 79 18 149/67 (94) 96 Vapotherm 20.00 50.00 01/22/20 19:07 99 Vapotherm 30.00 60 01/22/20 19:00 80 01/22/20 17:17 37.0 75 99 75 01/22/20 16:00 37.0 75 20 131/61 (84) 99 Vapotherm 30.00 75.00 01/22/20 14:45 98 Vapotherm 30.00 75 01/22/20 12:41 82 01/22/20 11:37 36.9 80 24 144/63 (90) 99 Vapotherm 30.00 75.00 01/22/20 09:22 94 Vapotherm 30.00 75 01/22/20 08:07 37.0 71 24 145/63 (90) 96 Vapotherm 30.00 75.00 01/22/20 08:00 92 Vapotherm 15.00 01/22/20 07:00 76 01/22/20 06:20 37.4 I & O 01/23/20 07:00 Intake Total 3650 ml Output Total 1200 ml Balance 2450 ml Height & Weight Height: 5'1.00" Weight: 162lbs. 0.0oz. 73.558658lc; 31.17 BMI Method:Stated General Appearance: No Apparent Distress, Chronically ill HEENT: Other (NGT in place) Respiratory: Lungs Clear, No Respiratory Distress Cardiovascular: Regular Rate, Rhythm, No Murmur Capillary Refill: Less Than 3 Seconds Peripheral Pulses: 2+ Dorsalis Pedis (R), 2+ Left Dors-Pedis (L), 2+ Radial Pulses (R), 2+ Radial Pulses (L) Gastrointestinal: soft, abnormal bowel sounds, distended (very mild) Extremity: Normal Capillary Refill, Non Tender, No Calf Tenderness, No Pedal Edema Neurologic/Psychiatric: Alert, Oriented x3 Skin: Normal Color, Warm/Dry Results Lab Laboratory Tests 01/22/20 05:21 01/23/20 04:50 Assessment/Plan Assessment/Plan Pneumonia -Currently on Zosyn -Mora cultures neg thus far -Add advair COPDAE -Duoneb -Oxygen -- currently on Vapotherm SBO QING TAO DO Jan 23, 2020 06:23
[2020-01-23 07:09] LABS: CALCIUM 7.7 MG/DL (8.5-10.1); POTASSIUM 2.9 MMOL/L (3.6-5.0)
[2020-01-23] MEDS: RANOLAZINE ER 500 MG TAB (RANEXA) PO SCH ×2 (08:02→21:02)
[2020-01-23] MEDS: PREGABALIN 150 MG (LYRICA) CAPSULE PO SCH ×2 (08:02→21:02)
[2020-01-23] MEDS: KETOROLAC 30 MG/ML VIAL IVP PRN (08:02)
[2020-01-23] MEDS: ASPIRIN E.C. 81 MG (ECOTRIN) TAB PO SCH (08:03)
--- NOTE | 2020-01-23 08:33 | Physical Therapy Progress Note ---
Therapy Progress Note Patient refused PT treatment this morning, she refused to get out of bed or perform exercises in bed. Patient states she is too tired. Will check back later today. TIARA LOPEZ PT Jan 23, 2020 08:33
[2020-01-23] MEDS: LORazepam INJ 2 MG/ML (ATIVAN) VIAL IVP PRN ×2 (10:06→21:40)
--- NOTE | 2020-01-23 10:58 | Progress Note - Hospitalist ---
Subjective HPI/CC On Admission Date Seen by Provider: Jan 23, 2020 Time Seen by Provider: 10:54 Vira Irizarry is a 69-year-old female with past medical history of hypertension, diabetes, coronary artery disease, hyperlipidemia, anxiety, COPD, GERD, restless leg syndrome, who presented with abdominal pain. She reports that the pain is severe and diffuse. She reports that she has been nauseous and vomiting. She reports that all her symptoms started after she ate cabbage last night. She had a similar episode previously when she ate broccoli and developed a small bowel obstruction. She denies any fevers or chills. She denies any hematemesis. She has not been passing gas or had a bowel movement. Subjective/Events-last exam Pt reports doing better today. Still having some abdominal pain. Requesting more pain medications but discussed the GI effects of that and need to balance that with pain control. Also discussed need to participate in therapy as she only walked 5 ft yesterday. Focused Exam Lactate Level 01/22/20 08:40: Lactic Acid Level 0.62 Objective Exam Vital Signs Vital Signs Date Time Temp Pulse Resp B/P (MAP) Pulse Ox O2 Delivery O2 Flow Rate FiO2 01/23/20 08:00 95 Vapotherm 40 01/23/20 03:00 18 01/23/20 01:51 16.00 01/23/20 00:31 36.4 68 99/51 (67) Capillary Refill : Less Than 3 SecondsLess Than 3 Seconds General Appearance: No Apparent Distress, Chronically ill Respiratory: No Accessory Muscle Use; No Wheezing; Other (on vapotherm) Cardiovascular: Regular Rate, Rhythm, No Murmur Gastrointestinal: Normal Bowel Sounds, Soft Neurologic/Psychiatric: Alert, Oriented x3 Results/Procedures Lab Laboratory Tests 01/23/20 04:50 01/23/20 06:35 Patient resulted labs reviewed. Imaging: Reviewed Imaging Report Assessment/Plan Assessment and Plan Assess & Plan/Chief Complaint Small bowel obstruction CT abdomen revealed small bowel obstruction Surgery consulted, appreciate assistance Continue IV fluids Continue ambulation Incentive spirometry - Hopeful to avoid surgery if at all possible, now passing flatus - NGT out - Small bowel follow through showed no obstruction - CLD Pneumonia COPD - Pulm consulted, appreciate recs - Now on Vapotherm- wean as able - Flu swab negative - Zosyn Bradycardia- resolved Follows with Dr. Smith Consult cardiology, appreciate assistance T2DM Sliding scale insulin Anxiety - Continue home Xanax Debility - PT/OT - May need IRF prior to discharge Hypertension Coronary artery disease Hyperlipidemia GERD Restless leg syndrome Resume home meds DVT prophylaxis: Lovenox Clinical Quality Measures DVT/VTE Risk/Contraindication: Risk Factor Score Per Nursin RFS Level Per Nursing on Admit: 4+=Very High ARTEMIO APARICIO MD Jan 23, 2020 10:58
[2020-01-23] MEDS: RT-ALBUTEROL/IPRATROPIUM 3 ML (DUONEB) VIAL INH SCH ×3 (11:52→18:47)
--- NOTE | 2020-01-23 11:57 | Physical Therapy Daily Note ---
PT Daily Note-Current Subjective Patient does not have pain but is tired from not sleeping well Appearance Patient was returned to room recliner (feet up) with call light and tray in reach. SO in room. Mental Status Patient Orientation: Person, Place, Eyes Open Attachments: Oxygen, Sheth Catheter, IV vapotherm Transfers SCALE: Activities may be completed with or without assistive devices. 1-Zkttnsjgkf-dgmapmo completes the activity by him/herself with no assistance from a helper. 5-Set-up or Clean-up Assistance-helper sets up or cleans up; patient completes activity. [place] assists only prior to or following the activity. 4-Supervision or Touching Assistance-helper provides verbal cues and/or touching/steadying and/or contact guard assistance as patient completes activity. Assistance may be provided throughout the activity or intermittently. 3-Partial/Moderate Assistance-helper does LESS THAN HALF the effort. [place] lifts, holds or supports trunk or limbs, but provides less than half the effort. 2-Substantial/Maximal Assistance-helper does MORE THAN HALF the effort. [place] lifts or holds trunk or limbs and provides more than half the effort. 0-Vtolvozja-ayjola does ALL the effort. Patient does none of the effort to complete the activity. Or, the assistance of 2 or more helpers is required for the patient to complete the activity. If activity was not attempted, code reason: 7-Patient Refused. 9-Not Applicable-not attempted and the patient did not perform the activity before the current illness, exacerbation or injury. 10-Not Attempted due to Environmental Limitations-(lack of equipment, weather restraints, etc.). 88-Not Attempted due to Medical Conditions or Safety Concerns. Sit to Stand (QC): 4 (CGA) Chair/Ecl-cm-Povjz Xfer(QC): 4 (CGA) Weight Bearing Right Lower Extremity: Right Weight Bearing/Tolerated Left Lower Extremity: Left Weight Bearing/Tolerated Gait Training Does the Patient Walk?: Yes Distance: 10 ft x10 Walk 10 feet (QC): 4 (CGA) Walk 50 ft with 2 Turns(QC): 4 (CGA) Gait Assistive Device: FWW ambulates well but verbal cues needed to slow down and CGA for safety due to lines attached. Exercises Supine Ex: Quad Set (semi supine in recliner 10x ea side) Seated Therapy Exercises: Ankle pumps, Sit to stand, Long arc quads, Hip flexion Seated Reps: 10 (2x) Assessment Current Status: Good Progress Patient able to ambulate well needs motivation and instructions have to be simple and to the point due to her becoming side tracked on other topics. PT Can Technician Goals [facility] Goals PT [facility] Goals Time Frame: Jan 28, 2020 Roll Left & Right (QC): 6 Sit to Lying (QC): 6 Lying-Sitting on Side/Bed(QC): 6 Sit to Stand (QC): 6 Chair/Wgs-mi-Qompr Xfer(QC): 6 Walk 10 feet (QC): 4 Walk 50ft with 2 Turns (QC): 4 PT Plan Problem List Problem List: Activity Tolerance, Functional Strength, Safety, Balance, Gait, Transfer, Bed Mobility Treatment/Plan Treatment Plan: Continue Plan of Care Treatment Plan: Bed Mobility, Education, Functional Activity Nito, Functional Strength, Gait, Safety, Therapeutic Exercise, Transfers Treatment Duration: Jan 28, 2020 Frequency: 6 times per week Estimated Hrs Per Day: .25 hour per day Patient and/or Family Agrees t: Yes Safety Risks/Education Patient Education: Gait Training, Transfer Techniques, Correct Positioning, Disease Process, Safety Issues Teaching Recipient: Patient, Family Teaching Methods: Demonstration, Discussion, Audiovisual Response to Teaching: Verbalize Understanding, Return Demonstration, Reinforcement Needed Time/GCodes Time In: 1130 Time Out: 1150 Total Billed Treatment Time: 20 Total Billed Treatment visit 1 FA TIARA SERRANO PT Jan 23, 2020 11:57
--- NOTE | 2020-01-23 11:58 | Cardiology Progress Note ---
Subjective Date Seen by Provider: Jan 23, 2020 Time Seen by Provider: 11:56 Subjective/Events-last exam Patient is sitting in a chair, feeling better, breathing better. No abdominal pain Review of Systems General: No Chills, No Night Sweats, No Fatigue, No Malaise, No Appetite, No Other HEENT: No Head Aches, No Visual Changes, No Eye Pain, No Ear Pain, No Dysphasia , No Sinus Congestion, No Post Nasal Drip, No Sore Throat, No Other Pulmonary: Dyspnea; No Cough, No Pleuritic Chest Pain, No Other Cardiovascular: No: Chest Pain, Palpitations, Orthopnea, Paroxysmal Noc. Dyspnea, Edema, Lt Headedness, Other Focused Exam Lactate Level 01/22/20 08:40: Lactic Acid Level 0.62 Objective-Cardiology Exam Last Set of Vital Signs Vital Signs 01/23/20 01/23/20 01/23/20 01/23/20 00:31 01:51 03:00 08:00 Temp 36.4 Pulse 68 Resp 18 B/P (MAP) 99/51 (67) Pulse Ox 95 O2 Delivery Vapotherm O2 Flow Rate 16.00 FiO2 40 Capillary Refill : Less Than 3 SecondsLess Than 3 Seconds I&O Intake and Output 01/23/20 00:00 Intake Total 3450 ml Output Total 2550 ml Balance 900 ml Intake Oral 2450 ml IV Total 1000 ml Output Urine Total 1350 ml Gastric Drainage Total 1200 ml # Bowel Movements 3 General: Alert, Oriented X3, Cooperative HEENT: Atraumatic, PERRLA Neck: Supple, No JVD, No Thyromegaly Lungs: Clear to Auscultation, Normal Air Movement Heart: Regular Rate, Normal S1, Normal S2, No Murmurs Abdomen: Normal Bowel Sounds, Soft, No Tenderness Extremities: No Clubbing, No Cyanosis, No Edema, Normal Pulses, No Tenderness/Swelling Skin: No Rashes, No Breakdown, No Significant Lesion Neuro: Normal Speech, Strength at 5/5 X4 Ext, Normal Tone, Sensation Intact Results Lab Laboratory Tests 01/23/20 04:50 01/23/20 06:35 A/P-Cardiology Admission Diagnosis Sinus bradycardia SBO HTN HLP Assessment/Plan Transient episode of sinus bradycardia, was asymptomatic, No further episodes reported, continue to monitor Small bowel obstruction, better at this time. Continue to monitor Acute respiratory failure, pneumonia, currently on Vapotherm and receiving antibiotics. Trying to wean off the Vapotherm, history of COPD. Continue to monitor Hypokalemia, electrolyte imbalance, followed and managed by primary care glory chappell Mild CAD on card cath of Sep 2014 and March 2019, normal left ventricular size and function, normal aorta and bilateral runoff H/o bilateral lower extremity pain, YOSELIN was done in May 2017 and it was normal bilaterally, normal aortogram and bilateral runoff in March 2019 Hypertension, continue to monitor blood pressure. Hyperlipidemia, treated with statin, continue to monitor as outpatient. 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 Mild bilateral carotid stenosis, last ultrasound was done in February 2019, continue to monitor. Chronic, intermittent, lower leg edema Clinical Quality Measures DVT/VTE Risk/Contraindication: Risk Factor Score Per Nursin RFS Level Per Nursing on Admit: 4+=Very High JUAN LICONA MD Jan 23, 2020 11:58
[2020-01-23] MEDS ORDERED: KCL 20 MEQ TAB (K-DUR) PO NR ×2 (12:00→14:45)
[2020-01-23] MEDS: ENOXAPARIN 40 MG/0.4 ML (LOVENOX) SYR SC SCH (12:35)
[2020-01-23] MEDS: RT-ADVAIR HFA 115/21 MCG PER PUFF IH SCH ×2 (13:53→18:47)
[2020-01-23] MEDS: LACTATED RINGERS 1,000 ML IV SCH (14:27)
--- NOTE | 2020-01-23 15:20 | NUR ---
IRF Evaluation Order received to evaluate patient for the ARU. Chart review complete and findings reviewed with Dr. Timmons - patient accepted. Met with patient to discuss details specific to rehabilitation program. Patient is agreeable to required therapy regimen and admission. Dr. Tripathi notified. Anticipate admission, 01/23/18. Thank you for this referral.
[2020-01-23] MEDS: HYDROcodone/APAP 5 MG/325 MG (LORTAB) TAB PO PRN (15:39)
[2020-01-23] MEDS: ONDANSETRON 4 MG/2 ML (SDV) Z0FRAN IV PRN (15:39)
[2020-01-23 16:53] VITALS: BP 139/80
[2020-01-23] MEDS: rOPINIRole 1 MG (REQUIP) TABLET PO SCH (21:02)
[2020-01-23] MEDS: QUEtiapine 100 MG (SEROquel) TAB IMMEDIATE RELEASE PO SCH (21:03)
[2020-01-23] MEDS: fentaNYL INJECTION 100 MCG/2 ML AMP IV PRN (21:03)
[2020-01-24 00:15] VITALS: BP 145/70
[2020-01-24] MEDS: KETOROLAC 30 MG/ML VIAL IVP PRN (02:48)
[2020-01-24 05:03] LABS: BASOPHILS % (AUTO) 0 % (0-10); EOSINOPHILS # (AUTO) 0.4 10^3/uL (0.0-0.3); EOSINOPHILS % (AUTO) 3 % (0-10); HEMATOCRIT 30 % (35-52); LYMPHOCYTES % (AUTO) 7 % (12-44); MEAN CORPUSCULAR HEMOGLOBIN 27 PG (25-34); MEAN CORPUSCULAR HGB CONC 31 G/DL (32-36); MEAN CORPUSCULAR VOLUME 90 FL (80-99); MEAN PLATELET VOLUME 10.4 FL (7.4-10.4); MONOCYTES # (AUTO) 0.8 X 10^3 (0.0-1.0); MONOCYTES % (AUTO) 6 % (0-12); NEUTROPHILS # (AUTO) 11.3 X 10^3 (1.8-7.8); NEUTROPHILS % (AUTO) 84 % (42-75); PLATELET COUNT 207 10^3/uL (130-400); RED CELL DISTRIBUTION WIDTH 13.9 % (10.0-14.5); WHITE BLOOD COUNT 13.4 10^3/uL (4.3-11.0)
[2020-01-24] MEDS: fentaNYL INJECTION 100 MCG/2 ML AMP IV PRN (05:03)
[2020-01-24 05:16] LABS: BUN/CREATININE RATIO 13; CALCIUM 7.8 MG/DL (8.5-10.1); CARBON DIOXIDE 32 MMOL/L (21-32); CHLORIDE 104 MMOL/L (98-107); CREATININE SERUM 0.84 MG/DL (0.60-1.30); GFR ESTIMATED > 60; GLUCOSE 145 MG/DL (70-105); POTASSIUM 3.6 MMOL/L (3.6-5.0); SODIUM 143 MMOL/L (135-145)
[2020-01-24 05:18] LABS: ANISOCYTOSIS SLIGHT; BAND NEUTROPHILS 0 %; BASOPHILS % (MANUAL) 0 %; EOSINOPHILS % (MANUAL) 4 %; LYMPHOCYTES % (MANUAL) 5 %; MONOCYTES % (MANUAL) 4 %; NEUTROPHILS % (MANUAL) 87 %; POLYCHROMASIA SLIGHT; ROULEAUX SLIGHT
[2020-01-24] MEDS: inSUlin ASPART (NovoLOG) 1 UNIT/0.01 ML (CHARGE PER UNIT) SC SCH (06:32)
[2020-01-24] MEDS: PIPERACILLIN/TAZOBACTAM (BULK) 4.5 GM in NS (IVPB) 100 ML IV SCH (06:37)
[2020-01-24] MEDS: RT-ADVAIR HFA 115/21 MCG PER PUFF IH SCH (07:41)
[2020-01-24] MEDS: RT-ALBUTEROL/IPRATROPIUM 3 ML (DUONEB) VIAL INH SCH (07:41)
[2020-01-24 08:00] VITALS: BP 163/82
[2020-01-24] MEDS: LORazepam INJ 2 MG/ML (ATIVAN) VIAL IVP PRN (08:14)
[2020-01-24] MEDS: ASPIRIN E.C. 81 MG (ECOTRIN) TAB PO SCH (08:14)
[2020-01-24] MEDS: PREGABALIN 150 MG (LYRICA) CAPSULE PO SCH (08:14)
[2020-01-24] MEDS: RANOLAZINE ER 500 MG TAB (RANEXA) PO SCH (08:14)
--- NOTE | 2020-01-24 08:34 | Cardiology Progress Note ---
Subjective Date Seen by Provider: Jan 24, 2020 Time Seen by Provider: 08:30 Subjective/Events-last exam Patient is laying down in bed, feeling better. No new complaint Review of Systems General: No Chills, No Night Sweats, No Fatigue, No Malaise, No Appetite, No Other HEENT: No Head Aches, No Visual Changes, No Eye Pain, No Ear Pain, No Dysphasia, No Sinus Congestion, No Post Nasal Drip, No Sore Throat, No Other Pulmonary: No Dyspnea, No Cough, No Pleuritic Chest Pain, No Other Cardiovascular: No: Chest Pain, Palpitations, Orthopnea, Paroxysmal Noc. Dyspnea, Edema, Lt Headedness, Other Focused Exam Lactate Level 01/22/20 08:40: Lactic Acid Level 0.62 Objective-Cardiology Exam Last Set of Vital Signs Vital Signs 01/23/20 01/24/20 08:00 08:00 Temp 37.5 Pulse 81 Resp 20 B/P (MAP) 163/82 (109) Pulse Ox 93 O2 Delivery High Flow N/C O2 Flow Rate 6.00 FiO2 40 Capillary Refill : Less Than 3 SecondsLess Than 3 Seconds I&O Intake and Output0 01/24/20 00:00 Intake Total 1880 ml Output Total 700 ml Balance 1180 ml Intake Oral 1880 ml Output Urine Total 700 ml # Bowel Movements 2 General: Alert, Oriented X3, Cooperative HEENT: Atraumatic, PERRLA Neck: Supple, No JVD, No Thyromegaly Lungs: Clear to Auscultation, Normal Air Movement Heart: Regular Rate, Normal S1, Normal S2, No Murmurs Abdomen: Normal Bowel Sounds, Soft, No Tenderness Extremities: No Clubbing, No Cyanosis, No Edema, Normal Pulses, No Tenderness/Swelling Skin: No Rashes, No Breakdown, No Significant Lesion Neuro: Normal Speech, Strength at 5/5 X4 Ext, Normal Tone, Sensation Intact Results Lab Laboratory Tests 01/24/20 04:53 A/P-Cardiology Admission Diagnosis Sinus bradycardia SBO HTN HLP Assessment/Plan Transient episode of sinus bradycardia, was asymptomatic, No further episodes reported, continue to monitor Small bowel obstruction, better at this time. Continue to monitor Status post respiratory failure, currently on nasal cannula. 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 Mild bilateral carotid stenosis, last ultrasound was done in February 2019, continue to monitor. Chronic, intermittent, lower leg edema I will signoff, reconsult if needed, thank you for allowing me to participate in the management of Mrs. Irizarry Clinical Quality Measures DVT/VTE Risk/Contraindication: Risk Factor Score Per Nursin RFS Level Per Nursing on Admit: 4+=Very High JUAN LICONA MD Jan 24, 2020 08:34
[2020-01-24] MEDS ORDERED: lisINopril 10 MG (PRINIVIL) TABLET PO SCH (09:00)
--- NOTE | 2020-01-24 09:50 | NUR ---
REPORT GIVEN TO SAMEERA BOOTHE ON ARU. RN VERBALIZED PT WILL GO TO ROOM 230 AND SHE IS READY FOR HER AT ANYTIME. PT WILL SPEAK TO DR APARICIO AND GET HER HAIR WASHED THEN SHE WILL TRANSFER TO ARU
--- NOTE | 2020-01-24 10:19 | Discharge Summary ---
Diagnosis/Chief Complaint Date of Admission Jan 17, 2020 at 10:08 Date of Discharge Discharge Date: Jan 24, 2020 Admission Diagnosis Small bowel obstruction Primary Care Addy Knight DO Discharge Diagnosis (1) Small bowel obstruction Status: Acute (2) COPD without exacerbation Status: Chronic (3) T2DM (type 2 diabetes mellitus) Status: Chronic Discharge Summary Discharge Physical Exam Allergies: Coded Allergies: Iodinated Contrast Media (Verified Allergy, Mild, HIVES, 12/08/19) linezolid (Verified Allergy, Mild, HIVE, 12/08/19) Vitals & I&Os Vital Signs Date Time Temp Pulse Resp B/P (MAP) Pulse Ox O2 Delivery O2 Flow Rate FiO2 01/24/20 08:00 95 Nasal Cannula 5.00 40 01/24/20 08:00 37.5 81 20 163/82 (109) Hospital Course Labs (last 24 hrs) Laboratory Tests 01/23/20 11:44: Glucometer 145H 01/23/20 14:58: Magnesium Level 2.0 01/23/20 15:43: Glucometer 199H 01/23/20 20:48: Glucometer 156H 01/24/20 04:53: White Blood Count 13.4H, Red Blood Count 3.29L, Hemoglobin 9.0L, Hematocrit 30L, Mean Corpuscular Volume 90, Mean Corpuscular Hemoglobin 27, Mean Corpuscular Hemoglobin Concent 31L, Red Cell Distribution Width 13.9, Platelet Count 207, Mean Platelet Volume 10.4, Neutrophils (%) (Auto) 84H, Lymphocytes (%) (Auto) 7L , Monocytes (%) (Auto) 6, Eosinophils (%) (Auto) 3, Basophils (%) (Auto) 0, Neutrophils # (Auto) 11.3H, Lymphocytes # (Auto) 1.0, Monocytes # (Auto) 0.8, Eosinophils # (Auto) 0.4H, Basophils # (Auto) 0.0, Neutrophils % (Manual) 87, Lymphocytes % (Manual) 5, Monocytes % (Manual) 4, Eosinophils % (Manual) 4, Basophils % (Manual) 0, Band Neutrophils 0, Polychromasia SLIGHT, Anisocytosis SLIGHT, Rouleau SLIGHT, Sodium Level 143, Potassium Level 3.6, Chloride Level 104, Carbon Dioxide Level 32, Anion Gap 7, Blood Urea Nitrogen 11, Creatinine 0.84, Estimat Glomerular Filtration Rate > 60, BUN/Creatinine Ratio 13, Glucose Level 145H, Calcium Level 7.8L Microbiology 01/22/20 Blood Culture - Preliminary, Resulted No growth 01/22/20 Gram Stain - Final, Resulted 01/22/20 Sputum Culture - Preliminary, Resulted Usual upper respiratory sandra Patient resulted labs reviewed. Pending Labs Laboratory Tests 01/24/20 04:53: White Blood Count 13.4, Red Blood Count 3.29, Hemoglobin 9.0, Hematocrit 30, Mean Corpuscular Volume 90, Mean Corpuscular Hemoglobin 27, Mean Corpuscular Hemoglobin Concent 31, Red Cell Distribution Width 13.9, Platelet Count 207, Mean Platelet Volume 10.4, Neutrophils (%) (Auto) 84, Lymphocytes (%) (Auto) 7, Monocytes (%) (Auto) 6, Eosinophils (%) (Auto) 3, Basophils (%) (Auto) 0, Neutrophils # (Auto) 11.3, Lymphocytes # (Auto) 1.0, Monocytes # (Auto) 0.8, Eosinophils # (Auto) 0.4, Basophils # (Auto) 0.0, Neutrophils % (Manual) 87, Lymphocytes % (Manual) 5, Monocytes % (Manual) 4, Eosinophils % (Manual) 4, Basophils % (Manual) 0, Band Neutrophils 0, Polychromasia SLIGHT, Anisocytosis SLIGHT, Rouleau SLIGHT, Sodium Level 143, Potassium Level 3.6, Chloride Level 104, Carbon Dioxide Level 32, Anion Gap 7, Blood Urea Nitrogen 11, Creatinine 0.84, Estimat Glomerular Filtration Rate > 60, BUN/Creatinine Ratio 13, Glucose Level 145, Calcium Level 7.8 Imaging: Reviewed Imaging Report Discharge Home Medications: Active Scripts Active Reported Flonase Allergy Relief (Fluticasone Propionate) 9.9 Ml Scenic.susp 1 Scenic NS DAILY 1 SPRAY EACH NARE DAILY Cetirizine HCl 10 Mg Tablet 10 Mg PO DAILY Aspirin EC (Aspirin) 81 Mg Tablet.dr 81 Mg PO DAILY Acid Reception Centre Manager (RANITIDINE) (Ranitidine HCl) 150 Mg Tablet 150 Mg PO BID Dicyclomine HCl 10 Mg Capsule 10 Mg PO BID Meclizine HCl 25 Mg Tablet 25 Mg PO TID PRN Metoclopramide HCl 10 Mg Tablet 10 Mg PO QID Alprazolam 1 Mg Tablet 0.5 Mg PO HS Alprazolam 1 Mg Tablet 1 Mg PO 0800,1200 Metformin HCl 1,000 Mg Tablet 1,000 Mg PO BID WITH MEALS Ranolazine ER (Ranolazine) 500 Mg Tab.er.12h 500 Mg PO BID Albuterol Sulfate 2.5 Mg/3 Ml Vial.neb 2.5 Mg NEB QID PRN Cyanocobalamin Injection (Cyanocobalamin) 1,000 Mcg/Ml Inj 1,000 Mcg IM ONCE 30 Days Lantus Solostar (Insulin Glargine,Hum.rec.anlog) 100 Unit/1 Ml Insuln.pen 10 Unit SQ HS Oxycodone HCl 30 Mg Tablet 30 Mg PO Q6H PRN Lyrica (Pregabalin) 150 Mg Capsule 150 Mg PO BID Furosemide 20 Mg Tablet 20 Mg PO DAILY Ropinirole HCl 1 Mg Tablet 1 Mg PO HS Advair 250-50 Diskus (Fluticasone/Salmeterol) 1 Each Blst.w.dev 1 Puff IH BID Combivent Respimat Inhal Scenic (Albuterol/Ipratropium) 4 Gm Aero 1 Puff IH QID Omeprazole 20 Mg Capsule.dr 20 Mg PO BID Montelukast Sodium 10 Mg Tablet 10 Mg PO HS Atorvastatin Calcium 10 Mg Tablet 10 Mg PO HS Klor-Con M10 (Potassium Chloride) 10 Meq Tab.er.prt 10 Meq PO TID Cyclobenzaprine HCl 10 Mg Tablet 10 Mg PO TID PRN Quetiapine Fumarate 50 Mg Tablet 50 Mg PO HS Instructions to patient/family Please see electronic discharge instructions given to patient. Clinical Quality Measures DVT/VTE Risk/Contraindication: Risk Factor Score Per Nursin RFS Level Per Nursing on Admit: 4+=Very High ARTEMIO APARICIO MD Jan 24, 2020 10:19
[2020-01-24] MEDS: HYDROcodone/APAP 5 MG/325 MG (LORTAB) TAB PO PRN (10:28)
[2020-01-24 10:40] VITALS: BP 163/82
--- NOTE | 2020-01-24 10:40 | NUR ---
PT TRANSFERED TO ARU AT THIS TIME WITH ALL BELONGINGS
== END 2020-01-24 10:40 | DRG 388 ==
LOC: EDUNIT# 08:38 → ER 08:39 → 4TH 10:08
PROVIDERS: ADMIT Internal Medicine; ATTEND Internal Medicine
PROC: 0D9670Z Drainage of Stomach with Drainage Device, Via Natural or Artificial Opening (ICD-10-PCS; principal; 2020-01-17)
DX: K56.690 Other partial intestinal obstruction (principal); J18.9 Pneumonia, unspecified organism; J96.00 Acute respiratory failure, unspecified whether with hypoxia or hypercapnia; I11.0 Hypertensive heart disease with heart failure; I50.9 Heart failure, unspecified; F17.210 Nicotine dependence, cigarettes, uncomplicated; E78.00 Pure hypercholesterolemia, unspecified; G43.909 Migraine, unspecified, not intractable, without status migrainosus; E11.40 Type 2 diabetes mellitus with diabetic neuropathy, unspecified; M19.91 Primary osteoarthritis, unspecified site; M79.7 Fibromyalgia; M54.9 Dorsalgia, unspecified; J43.9 Emphysema, unspecified; F41.9 Anxiety disorder, unspecified; F32.9 Major depressive disorder, single episode, unspecified; I25.10 Atherosclerotic heart disease of native coronary artery without angina pectoris; K21.9 Gastro-esophageal reflux disease without esophagitis; G25.81 Restless legs syndrome; R00.1 Bradycardia, unspecified; E87.6 Hypokalemia; I65.23 Occlusion and stenosis of bilateral carotid arteries; E66.9 Obesity, unspecified; Z95.5 Presence of coronary angioplasty implant and graft; Z99.81 Dependence on supplemental oxygen; Z79.84 Long term (current) use of oral hypoglycemic drugs; Z86.14 Personal history of Methicillin resistant Staphylococcus aureus infection; Z68.31 Body mass index [BMI] 31.0-31.9, adult; R53.81 Other malaise
CPT/HCPCS: 36415; 51702; 71045; 74176; 74250; 80048; 80053; 81000; 82962; 83605; 83690; 83735; 84145; 85007; 85025; 85027; 86141; 87040; 87070; 87205; 87804; 93005; 93041; 93306; 94640; 94664; 94760

== ENCOUNTER 2020-01-24 11:12 | Inpatient (IN) | payer MEDICARE, MEDICAID ==
[~2020-01-24] VITALS: Ht 157.5 cm; Wt 77.5 kg
[~2020-01-24 11:12] MED LIST changes: +ALPRAZolam 0.25 MG (XANAX) TAB PO PRN; +BISACODYL 10 MG SUPP (DULCOLAX) PR PRN; +CALCIUM CARBONATE 500 MG (TUMS) TAB.CHEW PO PRN; +CETI10TA17 PO; +DOCUSATE SODIUM 100 MG (COLACE) CAP PO PRN; +ENOXAPARIN 40 MG/0.4 ML (LOVENOX) SYR SC SCH; +FLEET ENEMA ADULT 1 EA BTL PR PRN; +FLUT9.9S NS; +LACTULOSE SYRUP 10GM/15ML (ENULOSE) 30ML UDC PO PRN; +LOPERAMIDE 2 MG (IMODIUM) TABLET PO PRN; +RANI150T90 PO; +diphenhydrAMINE 25 MG TAB (BENADRYL) PO PRN; +guaiFENesin/CODEINE (ROBITUSSIN AC) 10ML UDC PO PRN
--- NOTE | 2020-01-24 11:17 | NUR ---
REGI PAL admitted to room 230-1, with an admitting diagnosis of COPD MYOPATHY, on 01/24/20 from FOURTH FLOOR via WHEELCHAIR, accompanied by STAFF. REGI PAL introduced to surroundings, call light, bed controls, phone, TV, temperature control, lights, meal times, smoking policy, visitor policy, side rail policy, bathrooms and showers. Patient Rights given to patient in the handbook. REGI PAL verbalizes understanding that [facility] is not responsible for the loss or damage to any personal effects or valuables that are kept in the patient's possession during their hospitalization. The following Patient Care Plans were discussed with the PATIENT: Discharge Planning, COPD MYOPATHY, IMPAIRED GAS EXCHANGE, INEFFECTIVE BREATHING PATTERN, RISK FOR INFECTION (COPD), ACTIVITY INTOLERANCE, and KNOWLEDGE DEFICIT. REGI PAL verbalizes understanding of Interdisciplinary Patient Education. Patient received Patient Rights Booklet, which includes Privacy Act Statement and Data Collection Information Summary.
[2020-01-24 11:25] VITALS: BP 160/69
[2020-01-24] MEDS ORDERED: PROMETHAZINE INJ 25 MG/ML (PHENERGAN) AMP IVP PRN (11:45)
[2020-01-24] MEDS ORDERED: HYDROcodone/APAP 5 MG/325 MG (LORTAB) TAB PO PRN (11:45)
[2020-01-24] MEDS ORDERED: KETOROLAC 30 MG/ML VIAL IVP PRN (11:45)
[2020-01-24] MEDS ORDERED: LORazepam INJ 2 MG/ML (ATIVAN) VIAL IVP PRN (11:45)
[2020-01-24] MEDS ORDERED: fentaNYL INJECTION 100 MCG/2 ML AMP IV PRN (11:45)
[2020-01-24] MEDS ORDERED: hydrALAZINE (APESOLINE) 20 MG/ML VIAL IV PRN (11:45)
--- NOTE | 2020-01-24 11:53 | PM&R Post Admission Assessment ---
PM&R HP Date of Visit: Jan 24, 2020 Time of Visit: 11:45 History of Present Illness CC: COPD myopathy HPI: This is a 69yoWF clinic patient of Dr Knight and Dr Smith who is known to me from prior hospital stays and also who is the of a current patient of [facility] of many years and she comes to the appointments with him who has a h/o multiple SBO and chronic abdominal wound and COPD who continues to smoke who maintains O2 3L/min at home who presents to the IRF reluctantly but in need of strengthening and lung function stamina increase prior to discharge home. Patient has been on CLD so I spoke to Dr Richardson who supported a soft diet and advance as tolerated which is helpful to her morale because she wants a cheesburger. Patient has a catheter in place and will remove that. Bowel function seems to have returned and will focus on adequate nutrition and maintaining on chronic narcotics while preventing flare of narcotic bowel. She had been on vapotherm which was successfully weaned down to her normal O2 maintenance. Past Roktvtz-Eaaujm-Cfxqff Hx Past Med/Social Hx: Reviewed Nursing Past Med/Soc Hx, Reviewed and Corrections made Patient Social History Marrital Status: Employed/Student: retired Alcohol Use: Occasionally Uses Alcohol Beverage of Choice: Rum, Whiskey, [place], Vodka Smoking Status: Current Everyday Smoker Type Used: Cigarettes 2nd Hand Smoke Exposure: Yes Recent Hopitalizations: Yes (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) Immunizations Up To Date Tetanus Booster (TDap): Unknown Date of Pneumonia Vaccine: Sep 16, 2019 Date of Influenza Vaccine: Sep 15, 2019 Seasonal Allergies Seasonal Allergies: Yes Past Medical History Surgeries: Appendectomy, Coronary Stent, Gallbladder, 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, Vascular Surgery Respiratory: Asthma, Chronic Bronchitis, COPD, Emphysema, Pneumonia Currently Using CPAP: No Currently Using BIPAP: No Cardiac: Chronic Edema/Swelling, High Cholesterol, Hypertension Neurological: Headaches /Migraines, Neuropathy 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: No 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 Gastrointestinal: Obstructive Bowel, Ulcer Musculoskeletal: Arthritis, Fibromyalgia, Chronic Back Pain Endocrine: Diabetes, Non-Insulin dep Loss of Vision: Denies Hearing Impairment: Denies Psychosocial: Anxiety, Depression Skin/Integumentary: Recent Skin Changes History of Blood Disorders: No Adverse Reaction to Blood [place]: No (N/A) Family History Colon cancer G8 BROTHER (PANCREATIC) Dementia 19 MOTHER G8 BROTHER Hypertension 19 MOTHER Myocardial infarction G8 BROTHER Diabetes, Hypertension, Other Conditions/Hx PM&R Allergy/Meds/Data Review Allergies Coded Allergies: Iodinated Contrast Media (Verified Allergy, Mild, HIVES, 12/08/19) linezolid (Verified Allergy, Mild, HIVE, 12/08/19) Home Medications Scheduled Albuterol/Ipratropium (Combivent Respimat Inhal [place]), 1 PUFF IH QID, (Reported) Alprazolam (Alprazolam), 1 MG PO 0800,1200, (Reported) Alprazolam (Alprazolam), 0.5 MG PO HS, (Reported) Aspirin (Aspirin EC), 81 MG PO DAILY, (Reported) Atorvastatin Calcium (Atorvastatin Calcium), 10 MG PO HS, (Reported) Cetirizine HCl (Cetirizine HCl), 10 MG PO DAILY, (Reported) Cyanocobalamin (Cyanocobalamin Injection), 1,000 MCG IM ONCE, (Reported) Dicyclomine HCl (Dicyclomine HCl), 10 MG PO BID, (Reported) Fluticasone Propionate (Flonase Allergy Relief), 1 SPRAY NS DAILY, (Reported) Fluticasone/Salmeterol (Advair 250-50 Diskus), 1 PUFF IH BID, (Reported) Furosemide (Furosemide), 20 MG PO DAILY, (Reported) Insulin Glargine,Hum.rec.anlog (Lantus Solostar), 10 UNIT SQ HS, (Reported) Metformin HCl (Metformin HCl), 1,000 MG PO BID WITH MEALS, (Reported) Metoclopramide HCl (Metoclopramide HCl), 10 MG PO QID, (Reported) Montelukast Sodium (Montelukast Sodium), 10 MG PO HS, (Reported) Omeprazole (Omeprazole), 20 MG PO BID, (Reported) Potassium Chloride (Klor-Con M10), 10 MEQ PO TID, (Reported) Pregabalin (Lyrica), 150 MG PO BID, (Reported) Quetiapine Fumarate (Quetiapine Fumarate), 50 MG PO HS, (Reported) Ranitidine HCl (Acid Incoming Inspector (RANITIDINE)), 150 MG PO BID, (Reported) Ranolazine (Ranolazine ER), 500 MG PO BID, (Reported) Ropinirole HCl (Ropinirole HCl), 1 MG PO HS, (Reported) Scheduled PRN Albuterol Sulfate (Albuterol Sulfate), 2.5 MG NEB QID PRN for SHORTNESS OF BREATH, (Reported) Cyclobenzaprine HCl (Cyclobenzaprine HCl), 10 MG PO TID PRN for MUSCLE SPASMS, (Reported) Meclizine HCl (Meclizine HCl), 25 MG PO TID PRN for VERTIGO, (Reported) Oxycodone HCl (Oxycodone HCl), 30 MG PO Q6H PRN for PAIN-SEVERE (8-10), (Reported) Discontinued Medications Acetaminophen (Tylenol), 975 MG PO TID Discontinued Reason: Duplicate Order Alprazolam (Alprazolam), 0.5 MG PO UD, (Reported) Discontinued Reason: No Longer Taking Aspirin (Aspirin EC), 81 MG PO DAILY@1400, (Reported) Discontinued Reason: Duplicate Order Dicyclomine HCl (Dicyclomine HCl), 20 MG PO DAILY, (Reported) Discontinued Reason: No Longer Taking Meclizine HCl (Meclizine HCl), 25 MG PO TID PRN for DIZZINESS, (Reported) Discontinued Reason: No Longer Taking Metformin HCl (Metformin HCl), 1,000 MG PO BID Discontinued Reason: Duplicate Order Prednisone (Prednisone), 40 MG PO DAILY Discontinued Reason: No Longer Taking Topiramate (Topiramate), 50 MG PO DAILY, (Reported) Discontinued Reason: No Longer Taking Current Medications Current Medications Reviewed Review of Systems Constitutional: see HPI, dizziness, malaise, weakness EENTM: no symptoms reported Respiratory: dyspnea on exertion, wheezing Cardiovascular: no symptoms reported Gastrointestinal: abdominal pain, loss of appetite, nausea Genitourinary: other (retention) Musculoskeletal: back pain, joint pain Skin: no symptoms reported Psychiatric/Neurological: Anxiety, Depressed, Emotional Problems All Other Systems Reviewed Negative Unless Noted: Yes Physical Exam Physical Exam Vital Signs Vital Signs - First Documented 01/24/20 11:25 Temp 37.1 Pulse 79 Resp 18 B/P (MAP) 160/69 (99) Pulse Ox 94 O2 Delivery Nasal Cannula O2 Flow Rate 5.00 Capillary Refill : Height, Weight, BMI Height: 5'1.00" Weight: 162lbs. 0.0oz. [id number]; 31.17 BMI Method:Stated General Appearance: WD/WN, Anxious, Chronically ill, Mild Distress Eyes: Bilateral Eye Normal Inspection, Bilateral Eye PERRL HEENT: PERRL/EOMI, Normal ENT Inspection, Pharynx Normal Neck: Full Range of Motion, Normal Inspection, Non Tender, Supple, Carotid Bruit Respiratory: Chest Non Tender, No Accessory Muscle Use, No Respiratory Di stress, Decreased Breath Sounds, Wheezing Cardiovascular: Regular Rate, Rhythm, No Edema, No Gallop, No JVD, No Murmur, Normal Peripheral Pulses Gastrointestinal: Normal Bowel Sounds, No Organomegaly, No Pulsatile Mass, Non Tender, Soft Back: Normal Inspection, No CVA Tenderness, No Vertebral Tenderness Extremity: Normal Capillary Refill, Normal Inspection, Normal Range of Motion, Non Tender, No Calf Tenderness, No Pedal Edema Neurologic/Psychiatric: Alert, Oriented x3, No Motor/Sensory Deficits, Normal Mood/Affect, program development manager II-XII Norm as Tested, Abnormal Gait, Motor Weakness (generalized legs) Skin: Normal Color, Warm/Dry Lymphatic: No Adenopathy PM&R Medical Assessment & Plan REHAB/MEDICAL ASSESSMENT AND PLAN: REHAB IMPAIRMENT GROUP: COPD myopathy ETIOLOGIC DIAGNOSIS: COPD myopathy The comorbidities that impact the patients function and/or functional outcome by: continued smoking, anxiety, chronic pain narcotic dependent, recurrent SBO REHAB PLAN: The patient is being admitted to our comprehensive inpatient rehabilitation facility and can tolerate the intensity of service consisting of at least: 180 minutes of therapy a day, 5 out of 7 days a week Rehab treatment will consist of: PT OT will focus on improving lung function and strengthening and decrease readmits The patient/family has a good understanding of our discharge process and will benefit from an interdisciplinary inpatient rehabilitation program. The patient has potential to make improvement and is in need of at least two of the following multidisciplinary therapies including but not limited to physical, occupational, speech, and prosthetics and orthotics. Additionally the patient will need services from respiratory, nutritional services, wound care, psychology, etc. (Customize this to each patient). Given the patients complex condition and risk of further medical complications, rehabilitation services cannot be safely or effectively provided at a lower level of care such as a fci facility. BARRIERS TO DISCHARGE: Recurrent SBO and severe COPD O2 dependent ESTIMATED LOS: 7 days DISPOSITION: Home with HH and RELEVANT CHANGES SINCE PREADMISSION SCREENING: I have compared the patients medical and functional status at the time of the preadmission screening and there are: no changes PROGNOSIS: [Good REHABILITATION GOALS: 1. PT OT will focus on improving lung function and strengthening and decrease readmits All the above goals were reviewed with the patient and he/she is in agreement. By signing this document, I acknowledge that I have personally performed a full physical examination on this patient within 24 hours of admission to this inpatient rehabilitation facility and have determined the patient to be able to tolerate the above course of treatment at an intensive level for a reasonable period of time. I will be completing a detailed individualized Plan of Care for this patient by day #4 of the patients stay based upon the Preadmission Screen, the Post-Admission Evaluation, and the therapy evaluations. Admission Dx/Comorbidities: (1) Myopathy ICD Codes: G72.9 - Myopathy, unspecified (2) COPD (chronic obstructive pulmonary disease) ICD Codes: J44.9 - Chronic obstructive pulmonary disease, unspecified (3) Oxygen dependent ICD Codes: Z99.81 - Dependence on supplemental oxygen (4) Anxiety ICD Codes: F41.9 - Anxiety disorder, unspecified (5) Hx SBO ICD Codes: Z87.19 - Personal history of other diseases of the digestive system (6) Hypertension ICD Codes: I10 - Essential (primary) hypertension (7) Hyperlipidemia ICD Codes: E78.5 - Hyperlipidemia, unspecified (8) Diabetes ICD Codes: E11.9 - Type 2 diabetes mellitus without complications (9) Smoker ICD Codes: F17.200 - Nicotine dependence, unspecified, uncomplicated (10) Depression ICD Codes: F32.9 - Major depressive disorder, single episode, unspecified (11) Urinary retention ICD Codes: R33.9 - Retention of urine, unspecified (12) Sheth catheter in place ICD Codes: Z96.0 - Presence of urogenital implants (13) Chronic pain ICD Codes: G89.29 - Other chronic pain (14) Narcotic dependence ICD Codes: F11.20 - Opioid dependence, uncomplicated (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
--- NOTE | 2020-01-24 11:58 | Physical Therapy Evaluation ---
PT Evaluation-General Medical Diagnosis Admission Date Jan 24, 2020 at 11:12 Medical Diagnosis: COPD, myopathy, SBO Onset Date: Jan 17, 2020 Therapy Diagnosis Therapy Diagnosis: decreased mobility, gait unsteadiness Height/Weight Height (Feet): 5 Height (Inches): 1.00 Weight (Pounds): 162 Weight (Ounces): 0.0 Precautions Precautions/Isolations: Standard Precautions Weight Bear Status Right Lower Extremity: Right Full Weight Bearing Left Lower Extremity: Left Full Weight Bearing Referral Physician: Dr. Timmons Reason for Referral: Evaluation/Treatment Medical History Pertinent Medical History: Arthritis, COPD, DM, HTN Additional Medical History chronic edema, high cholesterol, fibromyalgia, back pain, anxiety, depression Current History Presented to ED with abdominal pain, found to have SBO. Transferred to ARU for weakness and gait unsteadiness. Reviewed History: Yes Social History Home: Single Level Current Living Status: Spouse Entry Into Home: Stairs With Railing PT Steps Into Home: 5 Prior Prior Level of Function SCALE: Activities may be completed with or without assistive devices. 0-Nnogqqnayy-omrvxho completes the activity by him/herself with no assistance f rom a helper. 5-Set-up or Clean-up Assistance-helper sets up or cleans up; patient completes activity. [place] assists only prior to or following the activity. 4-Supervision or Touching Assistance-helper provides verbal cues and/or touching/steadying and/or contact guard assistance as patient completes activity. Assistance may be provided throughout the activity or intermittently. 3-Partial/Moderate Assistance-helper does LESS THAN HALF the effort. [place] lifts, holds or supports trunk or limbs, but provides less than half the effort. 2-Substantial/Maximal Assistance-helper does MORE THAN HALF the effort. [place] lifts or holds trunk or limbs and provides more than half the effort. 0-Qwmwiigiu-xqvrzl does ALL the effort. Patient does none of the effort to complete the activity. Or, the assistance of 2 or more helpers is required for the patient to complete the activity. If activity was not attempted, code reason: 7-Patient Refused. 9-Not Applicable-not attempted and the patient did not perform the activity before the current illness, exacerbation or injury. 10-Not Attempted due to Environmental Limitations-(lack of equipment, weather restraints, etc.). 88-Not Attempted due to Medical Conditions or Safety Concerns. Bed Mobility: 6 Transfers (B,C,W/C): 6 Gait: 6 Stairs: 6 Indoor Mobility (Ambulation): Independent PT Evaluation-Current Subjective Pt. in bed, agrees to therapy but states repeatedly, "I don't need this", "I just want to go home." Pt/Family Goals home with spouse Objective Patient Orientation: Person, Place, Time, Situation Attachments: Oxygen (5 L), Sheth Catheter ROM/Strength ROM Upper Extremities WFL ROM Lower Extremities WFL Strength Upper Extremities See OT Strength Lower Extremities Grossly 4/5 hip, knee, ankle Integumentary/Posture Integumentary unremarkable Bowel Incontinence: No Bladder Incontinence: Sheth Cath Posture generally upright Neuromuscular (Tone, Coordination, Reflexes) unremarkable Sensory Vision: Wears Glasses Hearing: Functional Sensation Right Upper Extremit: Intact Sensation Left Upper Extremity: Intact Sensation Right Lower Extremit: Intact Sensation Left Lower Extremity: Intact Transfers Roll Left to Right (QC): 6 Sit to Lying (QC): 6 Lying to Sitting/Side of Bed(Q: 6 Sit to Stand (QC): 4 Chair/Yku-nf-Gpemv Xfer(QC): 4 Car Transfer (QC): 4 Gait Does the Patient Walk?: Yes Mode of Locomotion: Walk Anticipated Mode of Locomotion: Walk Walk 10 feet (QC): 4 Walk 50 ft with 2 Turns(QC): 4 Walk 150 ft (QC): 4 Walking 10ft/uneven surface-QC: 4 Gait Assistive Device: FWW Comments/Gait Description stumbles initially during gait and is impulsive with movements Wheelchair Training Does the Pt Use a Wheelchair?: No Stairs #of Steps: 12 1 Step (curb) (QC): 4 4 Steps (QC): 4 12 Steps (QC): 4 Walking Assistive Device: Walker Balance Sitting Static: Good Sitting Dynamic: Good Standing Static: Fair Standing Dynamic: Fair Picking up an Object (QC): 4 Assessment/Needs Pt. is a 69 y.o. female with general weakness and gait unsteadiness following issue of SBO. Pt. currently requires CGA for safe ambulation and transfers and demonstrates gait steadiness requiring assist of 1. Pt. would benefit from skilled PT to improve safety with mobility for return home (I). Rehab Potential: Good PT Care Home Goals Care Home Goals PT Care Home Goals Time Frame: Feb 07, 2020 Roll Left & Right (QC): 6 Sit to Lying (QC): 6 Lying-Sitting on Side/Bed(QC): 6 Sit to Stand (QC): 6 Chair/Lyy-zi-Ahtzi Xfer(QC): 6 Toilet Transfer (QC): 6 Car Transfer (QC): 6 Does the Patient Walk: Yes Walk 10 feet (QC): 6 Walk 50ft with 2 Turns (QC): 6 Walk 150 ft (QC): 6 Walking 10ft on Uneven Surface: 6 1 Step (curb) (QC): 6 4 Steps (QC): 6 12 Steps (QC): 6 Picking up an Object (QC): 6 Does the Pt use WC or Scooter?: No PT Plan Problem List Problem List: Activity Tolerance, Functional Strength, Safety, Balance, Gait, Transfer, Bed Mobility, ROM Treatment/Plan Treatment Plan: Continue Plan of Care Treatment Plan: Bed Mobility, Education, Functional Activity Nito, Functional Strength, Group Therapy, Gait, Safety, Therapeutic Exercise, Transfers Treatment Duration: Feb 07, 2020 Frequency: 6 times per week Estimated Hrs Per Day: 1.5 hours per day Patient and/or Family Agrees t: Yes Time/GCodes Time In: 1120 Time Out: 1145 Total Billed Treatment Time: 25 Total Billed Treatment 1, YU 25' CLIFF ROY PT Jan 24, 2020 11:58
[2020-01-24] MEDS: DOCUSATE SODIUM 100 MG (COLACE) CAP PO SCH ×2 (12:32→20:45)
[2020-01-24] MEDS: SENNA W/DOCUSATE (SENOKOT S) TABLET PO SCH ×2 (12:32→20:45)
[2020-01-24 12:45] VITALS: BP 160/69
--- NOTE | 2020-01-24 12:54 | NUR ---
PER DR. QIU, DC LORTAB. START OXYCODONE IR- 20 MG PO Q4H PRN PAIN- BUT BE SURE BOWELS ARE MOVING MOVING AND START BOWEL MEDS TO PREVENT OBSTRUCTION.
[2020-01-24] MEDS ORDERED: PIPERACILLIN/TAZOBACTAM (BULK) 4.5 GM in NS (IVPB) 100 ML IV SCH (13:30)
[2020-01-24] MEDS: ENOXAPARIN 40 MG/0.4 ML (LOVENOX) SYR SC SCH (13:47)
--- NOTE | 2020-01-24 13:54 | NUR ---
MARQUIS CATHETER REMOVED. PATIENT TOLERATED WELL.
[2020-01-24] MEDS: PIPERACILLIN/TAZOBACTAM (BULK) 4.5 GM in NS (IVPB) 100 ML IV SCH ×2 (14:11→21:01)
[2020-01-24] MEDS: inSUlin ASPART (NovoLOG) 1 UNIT/0.01 ML (CHARGE PER UNIT) SC SCH ×2 (15:57→20:45)
[2020-01-24 16:00] VITALS: BP 143/82
[2020-01-24] MEDS: RT-ADVAIR HFA 115/21 MCG PER PUFF IH SCH (19:25)
--- NOTE | 2020-01-24 19:25 | NUR ---
DENIES NEED TO VOID. BLADDER SCAN DONE AND SHOWING [address] QIU NOTIFIED. ORDERS TO PUT MARQUIS BACK IN. MARQUIS CATHETER PLACED WITHOUT DIFFICULTY. PATIENT TOLERATED WELL.
[2020-01-24] MEDS: QUEtiapine 100 MG (SEROquel) TAB IMMEDIATE RELEASE PO SCH (20:44)
[2020-01-24] MEDS: rOPINIRole 1 MG (REQUIP) TABLET PO SCH (20:44)
[2020-01-24] MEDS: RANOLAZINE ER 500 MG TAB (RANEXA) PO SCH (20:44)
[2020-01-24] MEDS: polyethylene glycoL POWDER 17 GM (MIRALAX) PACK PO SCH (20:45)
[2020-01-24] MEDS: MELATONIN 3 MG TABLET PO PRN (20:57)
[2020-01-24] MEDS: CATHETER FLUSH 10 ML SYR IV SCH (21:02)
[2020-01-25] MEDS: inSUlin ASPART (NovoLOG) 1 UNIT/0.01 ML (CHARGE PER UNIT) SC SCH ×4 (05:35→21:10)
[2020-01-25] MEDS: PIPERACILLIN/TAZOBACTAM (BULK) 4.5 GM in NS (IVPB) 100 ML IV SCH ×3 (05:35→21:17)
[2020-01-25] MEDS: CATHETER FLUSH 10 ML SYR IV SCH ×3 (05:35→21:17)
[2020-01-25 06:04] VITALS: BP 138/83
[2020-01-25 06:04] LABS: BASOPHILS % (AUTO) 0 % (0-10); EOSINOPHILS # (AUTO) 0.4 10^3/uL (0.0-0.3); EOSINOPHILS % (AUTO) 4 % (0-10); HEMATOCRIT 26 % (35-52); LYMPHOCYTES # (AUTO) 1.8 X 10^3 (1.0-4.0); LYMPHOCYTES % (AUTO) 20 % (12-44); MEAN CORPUSCULAR HEMOGLOBIN 27 PG (25-34); MEAN CORPUSCULAR HGB CONC 30 G/DL (32-36); MEAN CORPUSCULAR VOLUME 90 FL (80-99); MEAN PLATELET VOLUME 10.5 FL (7.4-10.4); MONOCYTES # (AUTO) 0.8 X 10^3 (0.0-1.0); MONOCYTES % (AUTO) 9 % (0-12); NEUTROPHILS # (AUTO) 5.8 X 10^3 (1.8-7.8); NEUTROPHILS % (AUTO) 67 % (42-75); PLATELET COUNT 224 10^3/uL (130-400); WHITE BLOOD COUNT 8.7 10^3/uL (4.3-11.0)
[2020-01-25 06:19] LABS: ALANINE AMINOTRANSFERASE 6 U/L (0-55); ALBUMIN 2.8 GM/DL (3.2-4.5); ALKALINE PHOSPHATASE 58 U/L (40-136); BILIRUBIN,TOTAL 0.2 MG/DL (0.1-1.0); BUN/CREATININE RATIO 12; CALCIUM 7.5 MG/DL (8.5-10.1); CARBON DIOXIDE 29 MMOL/L (21-32); CHLORIDE 103 MMOL/L (98-107); CREATININE SERUM 0.73 MG/DL (0.60-1.30); GFR ESTIMATED > 60; GLUCOSE 109 MG/DL (70-105); POTASSIUM 3.5 MMOL/L (3.6-5.0); SODIUM 139 MMOL/L (135-145); TOTAL PROTEIN 5.1 GM/DL (6.4-8.2)
[2020-01-25] MEDS: RT-ALBUTEROL/IPRATROPIUM 3 ML (DUONEB) VIAL INH SCH ×4 (07:50→18:42)
[2020-01-25] MEDS: RT-ADVAIR HFA 115/21 MCG PER PUFF IH SCH ×2 (07:50→18:42)
[2020-01-25] MEDS: lisINopril 10 MG (PRINIVIL) TABLET PO SCH (08:34)
[2020-01-25] MEDS: RANOLAZINE ER 500 MG TAB (RANEXA) PO SCH ×2 (08:34→21:15)
[2020-01-25] MEDS: ASPIRIN E.C. 81 MG (ECOTRIN) TAB PO SCH (08:34)
[2020-01-25] MEDS: SENNA W/DOCUSATE (SENOKOT S) TABLET PO SCH ×2 (08:34→21:15)
[2020-01-25] MEDS: polyethylene glycoL POWDER 17 GM (MIRALAX) PACK PO SCH ×2 (08:35→21:16)
[2020-01-25] MEDS: DOCUSATE SODIUM 100 MG (COLACE) CAP PO SCH ×2 (08:35→21:16)
[2020-01-25 08:41] VITALS: BP 131/76
[2020-01-25] MEDS: ONDANSETRON 4 MG/2 ML (SDV) Z0FRAN IV PRN (09:19)
[2020-01-25 09:21] VITALS: BP 128/73
--- NOTE | 2020-01-25 12:18 | PM&R Progress Note ---
Subjective HPI/CC On Admission Date Seen by Provider: Jan 25, 2020 Time Seen by Provider: 12:15 Subjective/Events-last exam Patient doing well Updated her on the advancement of her diet and she seems pleased about that at the bedside now and encouraging her Hypoxia continues but on O2 24/7 at home Continues to smoke at home and that is why she wants DC Fecal incontinence now and she states it just "flows out of her." Zosyn maintained so will hopefully finish that within days Potassium supplement will be added since it is 3.5 Sheth back in due to urinary retention Urecholine needs to be slow if that is started due to her severe COPD Probiotic is ordered Checked meds and labs Conferred with RN Reviewed therapy notes Review of Systems General: Fatigue Pulmonary: Dyspnea Gastrointestinal: Abdominal Pain, Diarrhea Neurological: Incoordination Objective Exam Vital Signs Vital Signs Date Time Temp Pulse Resp B/P (MAP) Pulse Ox O2 Delivery O2 Flow Rate FiO2 01/25/20 18:43 94 Nasal Cannula 5.00 01/25/20 17:08 36.8 85 20 151/67 (95) Capillary Refill : Less Than 3 Seconds General Appearance: WD/WN, Anxious, Chronically ill, Mild Distress HEENT: PERRL/EOMI, Normal ENT Inspection, Pharynx Normal Neck: Full Range of Motion, Normal Inspection, Non Tender, Supple, Carotid Bruit Respiratory: Chest Non Tender, No Accessory Muscle Use, No Respiratory Distress, Decreased Breath Sounds, Wheezing Cardiovascular: Regular Rate, Rhythm, No Edema, No Gallop, No JVD, No Murmur, Normal Peripheral Pulses Gastrointestinal: Normal Bowel Sounds, No Organomegaly, No Pulsatile Mass, Non Tender, Soft Back: Normal Inspection, No CVA Tenderness, No Vertebral Tenderness Extremity: Normal Capillary Refill, Normal Inspection, Normal Range of Motion, Non Tender, No Calf Tenderness, No Pedal Edema Neurologic/Psychiatric: Alert, Oriented x3, No Motor/Sensory Deficits, Normal Mood/Affect, cath laboratory technician II-XII Norm as Tested, Abnormal Gait, Motor Weakness (generalized legs) Skin: Normal Color, Warm/Dry Lymphatic: No Adenopathy Results/Procedures Lab Laboratory Tests 01/25/20 05:30 Patient resulted labs reviewed. FIM Transfers Therapy Code Descriptions/Definitions Functional [place] Measure: 0=Not Assessed/NA 4=Minimal Assistance 1=Total Assistance 5=Supervision or Setup 2=Maximal Assistance 6=Modified [place] 3=Moderate Assistance 7=Complete IndependenceSCALE: Activities may be completed with or without assistive devices. 6-Ijnlbejwlq-jdycexp completes the activity by him/herself with no assistance from a helper. 5-Set-up or Clean-up Assistance-helper sets up or cleans up; patient completes activity. [place] assists only prior to or following the activity. 4-Supervision or Touching Assistance-helper provides verbal cues and/or touching/steadying and/or contact guard assistance as patient completes activity. Assistance may be provided throughout the activity or intermittently. 3-Partial/Moderate Assistance-helper does LESS THAN HALF the effort. [place] lifts, holds or supports trunk or limbs, but provides less than half the effort. 2-Substantial/Maximal Assistance-helper does MORE THAN HALF the effort. [place] lifts or holds trunk or limbs and provides more than half the effort. 2-Aoiumwvle-klavmu does ALL the effort. Patient does none of the effort to complete the activity. Or, the assistance of 2 or more helpers is required for the patient to complete the activity. If activity was not attempted, code reason: 7-Patient Refused. 9-Not Applicable-not attempted and the patient did not perform the activity before the current illness, exacerbation or injury. 10-Not Attempted due to Environmental Limitations-(lack of equipment, weather restraints, etc.). 88-Not Attempted due to Medical Conditions or Safety Concerns. Roll Left to Right (QC): 6 Sit to Lying (QC): 6 Sit to Stand (QC): 4 Chair/Abt-bw-Dygub Xfer(QC): 4 Car Transfer (QC): 4 Gait Training Does the Patient Walk?: Yes Walk 10 feet (QC): 4 Walk 50 ft with 2 Turns(QC): 4 Walk 150 ft (QC): 4 Walking 10ft/uneven surface-QC: 4 Gait Assistive Device: FWW Wheelchair Training Does the Pt Use a Wheelchair?: No Stair Training #of Steps: 12 1 Step (curb) (QC): 4 4 Steps (QC): 4 12 Steps (QC): 4 Balance Picking up an Object (QC): 4 Assessment/Plan Assessment and Plan Assess & Plan/Chief Complaint Assessment: COPD myopathy Recurrent SBO COPD O2 dependence Smoker heavy Anxiety Chronic pain Narcotic dependence Narcotic bowel Anemia Leukocytosis Hypoxia Urinary retention Sheth in place again after failing DC Plan: IRF protocol [facility] building O2 Nebs Anxiety management Pain meds Bowel regimen Advanced diet Sheth cath, consult Dr Puente Sunday (1) Myopathy (2) COPD (chronic obstructive pulmonary disease) (3) Oxygen dependent (4) Anxiety (5) Hx SBO (6) Hypertension (7) Hyperlipidemia (8) Diabetes (9) Smoker (10) Depression (11) Urinary retention (12) Sheth catheter in place (13) Chronic pain (14) Narcotic dependence (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
--- NOTE | 2020-01-25 12:32 | NUR ---
POTASSIUM 3.5, INCONTINENT OF LIQUID STOOL, AND REQUESTING XANAX FOR NERVES. DR. QIU TO THE FLOOR AND NOTIFIED. ALSO, INFORMED OF NAUSEA AND LIGHTHEADEDNESS THIS AM. BP WNL. LUNGS SOUND WHEEZY. NEW ORDERS FOR POTASSIUM- 10 MEQ PO DAILY, DC ATIVAN AND START XANAX- 0.5 MG PO TID PRN ANXIETY, ADVANCE TO REGULAR DIET, CONSULT DR. PEDRAZA IN THE AM FOR URINARY RETENTION, AND START LACTOBACILLUS WITH MEALS.
[2020-01-25] MEDS: LACTOBACILLUS ACIDOPHILUS (PROBIOTIC) CAPSULE PO SCH ×2 (12:42→17:06)
[2020-01-25] MEDS: KCL 10 MEQ TAB (MICRO K) PO SCH (12:42)
[2020-01-25] MEDS: ENOXAPARIN 40 MG/0.4 ML (LOVENOX) SYR SC SCH (12:42)
[2020-01-25] MEDS: CALCIUM CARBONATE 500 MG (TUMS) TAB.CHEW PO PRN (13:19)
[2020-01-25] MEDS: ALPRAZolam 0.5 MG (XANAX) TAB PO PRN (13:19)
[2020-01-25 14:01] VITALS: BP 175/74
--- NOTE | 2020-01-25 14:01 | NUR ---
CONTINUES TO COMPLAIN OF FEELING DIZZY AND "FUZZY IN THE HEAD". BP 175/74, HR 72. 10 MG OF IV HYDRALAZINE GIVEN PER ORDERS. LINING CLOSER ARE EQUAL. ABLE TO LIFT BOTH LEGS OUT OF BED AND RUN HEEL UP EACH RENEE. LEANS TO THE LEFT IN BED... BUT WAS REPORTED THAT PATIENT WAS DOING THAT UPSTAIRS ON FOURTH FLOOR... AND PATIENT REPORTS THAT SHE WAS DOING THAT AT HOME WELL. SPEECH IS NORMAL. BLOOD SUGAR 150. DR. QIU NOTIFIED OF ABOVE WITH ORDERS TO MONITOR ONLY.
[2020-01-25 17:08] VITALS: BP 151/67
[2020-01-25] MEDS: QUEtiapine 100 MG (SEROquel) TAB IMMEDIATE RELEASE PO SCH (21:15)
[2020-01-25] MEDS: rOPINIRole 1 MG (REQUIP) TABLET PO SCH (21:15)
[2020-01-25] MEDS: MELATONIN 3 MG TABLET PO PRN (21:15)
[2020-01-26] MEDS: ONDANSETRON 4 MG (ZOFRAN) ORAL DISSOLVE TAB PO PRN (01:57)
[2020-01-26] MEDS: CATHETER FLUSH 10 ML SYR IV SCH ×3 (05:23→21:45)
[2020-01-26] MEDS: PIPERACILLIN/TAZOBACTAM (BULK) 4.5 GM in NS (IVPB) 100 ML IV SCH ×3 (05:24→21:45)
[2020-01-26] MEDS: KCL 10 MEQ TAB (MICRO K) PO SCH (05:34)
[2020-01-26] MEDS: inSUlin ASPART (NovoLOG) 1 UNIT/0.01 ML (CHARGE PER UNIT) SC SCH ×4 (05:38→21:45)
[2020-01-26 05:48] LABS: BASOPHILS % (AUTO) 0 % (0-10); EOSINOPHILS # (AUTO) 0.2 10^3/uL (0.0-0.3); EOSINOPHILS % (AUTO) 3 % (0-10); HEMATOCRIT 27 % (35-52); HEMOGLOBIN 8.4 G/DL (11.5-16.0); LYMPHOCYTES # (AUTO) 1.3 X 10^3 (1.0-4.0); LYMPHOCYTES % (AUTO) 18 % (12-44); MEAN CORPUSCULAR HEMOGLOBIN 27 PG (25-34); MEAN CORPUSCULAR HGB CONC 31 G/DL (32-36); MEAN CORPUSCULAR VOLUME 88 FL (80-99); MEAN PLATELET VOLUME 10.4 FL (7.4-10.4); MONOCYTES # (AUTO) 0.6 X 10^3 (0.0-1.0); MONOCYTES % (AUTO) 9 % (0-12); NEUTROPHILS # (AUTO) 5.1 X 10^3 (1.8-7.8); NEUTROPHILS % (AUTO) 70 % (42-75); PLATELET COUNT 228 10^3/uL (130-400); RED CELL DISTRIBUTION WIDTH 13.5 % (10.0-14.5); WHITE BLOOD COUNT 7.3 10^3/uL (4.3-11.0)
[2020-01-26 05:51] VITALS: BP 155/79
[2020-01-26 06:14] LABS: ALANINE AMINOTRANSFERASE < 6 U/L (0-55); ALBUMIN 2.9 GM/DL (3.2-4.5); ALKALINE PHOSPHATASE 59 U/L (40-136); BILIRUBIN,TOTAL 0.2 MG/DL (0.1-1.0); BUN/CREATININE RATIO 9; CALCIUM 8.3 MG/DL (8.5-10.1); CARBON DIOXIDE 28 MMOL/L (21-32); CHLORIDE 104 MMOL/L (98-107); CREATININE SERUM 0.76 MG/DL (0.60-1.30); GFR ESTIMATED > 60; GLUCOSE 150 MG/DL (70-105); POTASSIUM 4.2 MMOL/L (3.6-5.0); SODIUM 140 MMOL/L (135-145); TOTAL PROTEIN 5.3 GM/DL (6.4-8.2)
[2020-01-26] MEDS: RT-ALBUTEROL/IPRATROPIUM 3 ML (DUONEB) VIAL INH SCH ×3 (06:39→18:53)
[2020-01-26] MEDS: RT-ADVAIR HFA 115/21 MCG PER PUFF IH SCH ×2 (06:39→18:52)
[2020-01-26] MEDS: polyethylene glycoL POWDER 17 GM (MIRALAX) PACK PO SCH ×2 (07:51→21:51)
[2020-01-26] MEDS: DOCUSATE SODIUM 100 MG (COLACE) CAP PO SCH ×3 (07:51→21:36)
[2020-01-26] MEDS: SENNA W/DOCUSATE (SENOKOT S) TABLET PO SCH ×3 (07:52→21:37)
[2020-01-26] MEDS: LACTOBACILLUS ACIDOPHILUS (PROBIOTIC) CAPSULE PO SCH ×3 (08:23→18:02)
[2020-01-26] MEDS: lisINopril 10 MG (PRINIVIL) TABLET PO SCH (08:23)
[2020-01-26] MEDS: RANOLAZINE ER 500 MG TAB (RANEXA) PO SCH ×2 (08:23→21:36)
[2020-01-26] MEDS: ASPIRIN E.C. 81 MG (ECOTRIN) TAB PO SCH (08:23)
--- NOTE | 2020-01-26 08:56 | ST Cognitive Linguistic Eval ---
Speech Evaluation-General Medical Diagnosis COPD, myopathy, SBO Onset Date: Jan 17, 2020 Therapy Diagnosis Therapy Diagnosis: Cognitive-communication Referral Referring Physician: Dr. Timmons Medical History Pertinent Medical History: Arthritis, COPD, DM, HTN Reviewed History: Yes Social History Current Living Status: Spouse Speech PLF-Current Status Prior Level of Function Patient lived at home with her where she was independent for her daily needs. Subjective Patient was pleasant and cooperative with the cognitive assessment. Language Eval: Auditory Comprehends Simple Yes/No Ques: Functional Indent/Objects Multiple Mullen: Functional Ident/Pics in Multiple Mullen: Functional Follows 1-Step Commands: Functional Follows Complex Directions: Functional Follows General Conversations: Functional Language Eval: Verbal Language Completes Spontaneous Greeting: Functional Produces Auto, Serial Info: Functional Imitates Simple Words/Phrases: Functional Word Finding: Functional Requests Basic Needs: Functional States Basic Personal Info: Functional Expresses Complex Ideas: Functional Objective Cognitive Domain Attention: WNL Memory: Mild Problem Solving: Functional Executive Functions: WNL Visuospatial Skills: WNL Composite Severity Rating: WNL Clock Drawing Severity Rating: WNL Objective Formal/Standardized Tests [facility] Mental Status ([facility]) Results 28/30, within normal range of function Oral Motor/Speech Production Within Normal Range of Function Impression The patient is a pleasant 69 year female who was admitted to the ARU s/p bowel obstruction. The patient completed the UMS at bedside with a 28/30. This score is within normal range of function. The patient does not require further ST services at this time. Speech Patient Assess Expression of Ideas/Wants: Expression (4) Understanding Verbal Content: Understands (4) Brief Interview-Mental Status: Yes Repetition of Three Words: Three (3) Temporal Orientation: Year: Correct (3) Temporal Orientation: Month: Accurate within 5 days(2) Temporal Orientation: Day: Correct (1) Recall : Wear to say "Sock": Yes, no cue required (2) Recall : Color: Yes, no cue required (2) Recall : Bed: Yes,after cueing (1) Memory/Recall Ability: Current season, Location of own room, That he or she is in a hsp/hsp unit Speech-Plan Patient/Family Goals Patient/Family Goals: The patient plans on returning to her home where she lives with her upon rehab discharge. Treatment Plan Speech Therapy Treatment Plan: Continue Plan of Care Treatment Duration: Jan 26, 2020 Frequency: 1 time per week Estimated Hrs Per Day: .25 hour per day Rehab Potential: Good Barriers to Learning: None identified Pt/Family Agrees to Plan: Yes Safety Risks/Education Teaching Recipient: Patient Teaching Methods: Discussion Response to Teaching: Verbalize Understanding Education Topics Provided: Safety within her room and communication of her wants and needs. Time Speech Therapy Time In: 08:30 Speech Therapy Time Out: 08:45 Total Billed Time: 15 Billed Treatment Time 1, DESIRENDMELANIE Livingston Jan 26, 2020 08:56
[2020-01-26 09:17] VITALS: BP 155/79
--- NOTE | 2020-01-26 10:12 | PM&R Progress Note ---
Subjective HPI/CC On Admission Date Seen by Provider: Jan 26, 2020 Time Seen by Provider: 10:00 Subjective/Events-last exam Patient doing well Updated her on the advancement of her diet to regular and she is doing well with it Hypoxia continues but on O2 24/7 at home Senna and Colace restarted due to narcs Zosyn maintained so will hopefully finish that within days Potassium supplement will be added since it is 3.5 on labs Sheth back in due to urinary retention and Dr Puente has been consulted and he has managed her issues before in clinic Urecholine needs to be slow if that is started due to her severe COPD Probiotic is ordered Checked meds and labs Conferred with RN Reviewed therapy notes Review of Systems General: Fatigue Pulmonary: Dyspnea Gastrointestinal: Nausea, Abdominal Pain Objective Exam Vital Signs Vital Signs Date Time Temp Pulse Resp B/P (MAP) Pulse Ox O2 Delivery O2 Flow Rate FiO2 01/26/20 18:53 94 Nasal Cannula 3.00 01/26/20 16:00 36.3 60 16 134/53 (80) 01/26/20 09:17 40 Capillary Refill : Less Than 3 Seconds General Appearance: No Apparent Distress, WD/WN, Anxious, Chronically ill, Other (pale, frail) HEENT: PERRL/EOMI, Normal ENT Inspection, Pharynx Normal Neck: Full Range of Motion, Normal Inspection, Non Tender, Supple, Carotid Bruit Respiratory: Chest Non Tender, Normal Breath Sounds, No Accessory Muscle Use, No Respiratory Distress, Decreased Breath Sounds Cardiovascular: Regular Rate, Rhythm, No Edema, No Gallop, No JVD, No Murmur, Normal Peripheral Pulses Gastrointestinal: Normal Bowel Sounds, No Organomegaly, No Pulsatile Mass, Non Tender, Soft Back: Normal Inspection, No CVA Tenderness, No Vertebral Tenderness Extremity: Normal Capillary Refill, Normal Inspection, Normal Range of Motion, Non Tender, No Calf Tenderness, No Pedal Edema Neurologic/Psychiatric: Alert, Oriented x3, No Motor/Sensory Deficits, Normal 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 FIM Transfers Therapy Code Descriptions/Definitions Functional Andrew Measure: 0=Not Assessed/NA 4=Minimal Assistance 1=Total Assistance 5=Supervision or Setup 2=Maximal Assistance 6=Modified Andrew 3=Moderate Assistance 7=Complete IndependenceSCALE: Activities may be completed with or without assistive devices. 6-Nqyylfyrgn-qixbdqm completes the activity by him/herself with no assistance from a helper. 5-Set-up or Clean-up Assistance-helper sets up or cleans up; patient completes activity. Kevin assists only prior to or following the activity. 4-Supervision or Touching Assistance-helper provides verbal cues and/or touching/steadying and/or contact guard assistance as patient completes activity. Assistance may be provided throughout the activity or intermittently. 3-Partial/Moderate Assistance-helper does LESS THAN HALF the effort. Kevin lifts, holds or supports trunk or limbs, but provides less than half the effort. 2-Substantial/Maximal Assistance-helper does MORE THAN HALF the effort. Kevin lifts or holds trunk or limbs and provides more than half the effort. 2-Codfoszwm-svbezn does ALL the effort. Patient does none of the effort to complete the activity. Or, the assistance of 2 or more helpers is required for the patient to complete the activity. If activity was not attempted, code reason: 7-Patient Refused. 9-Not Applicable-not attempted and the patient did not perform the activity before the current illness, exacerbation or injury. 10-Not Attempted due to Environmental Limitations-(lack of equipment, weather restraints, etc.). 88-Not Attempted due to Medical Conditions or Safety Concerns. Roll Left to Right (QC): 6 Sit to Lying (QC): 6 Sit to Stand (QC): 4 Chair/Atz-us-Xpplj Xfer(QC): 4 Car Transfer (QC): 4 Gait Training Does the Patient Walk?: Yes Walk 10 feet (QC): 4 Walk 50 ft with 2 Turns(QC): 4 Walk 150 ft (QC): 4 Walking 10ft/uneven surface-QC: 4 Gait Assistive Device: FWW Wheelchair Training Does the Pt Use a Wheelchair?: No Stair Training #of Steps: 12 1 Step (curb) (QC): 4 4 Steps (QC): 4 12 Steps (QC): 4 Balance Picking up an Object (QC): 4 Assessment/Plan Assessment and Plan Assess & Plan/Chief Complaint Assessment: COPD myopathy Recurrent SBO COPD O2 dependence Smoker heavy Anxiety Chronic pain Narcotic dependence Narcotic bowel Anemia Leukocytosis Hypoxia Urinary retention Sheth in place again after failing DC consulted Dr Puente and his help is appreciated Plan: IRF protocol Stamina building O2 Nebs Anxiety management Pain meds Bowel regimen Advanced diet Sheth cath, consult Dr Puente appreciated (1) Myopathy (2) COPD (chronic obstructive pulmonary disease) (3) Oxygen dependent (4) Anxiety (5) Hx SBO (6) Hypertension (7) Hyperlipidemia (8) Diabetes (9) Smoker (10) Depression (11) Urinary retention (12) Sheth catheter in place (13) Chronic pain (14) Narcotic dependence (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
--- NOTE | 2020-01-26 12:00 | NUR ---
Dr. Kendrick notified that Dr. Timmons would like him to continue seeing pt. Dr Kendrick to see pt tomorrow.
--- NOTE | 2020-01-26 12:29 | Progress Note ---
[facility] 01/26/20 1229: Progress Note Vira has a hx of SBOs and abdominal pain. She has chronic COPD and continues to smoke. She is oxygen dependent at this time. She has had some issues with her bowels and has been constipated and was reporting incontinence but this has resolved now. She is heavily dependent on narcotics. She is being evaluated today for PT. She will benefit from rehab for increased stamina and lung capacity due to her COPD and O2 dependence. This will hopefully decrease future admits for COPD exacerbation. Depending on the course of her rehab, plan for discharge on 02/04/2020. SELAM QIU DO 01/26/20 1940: Supervisory-Addendum Brief Verification & Attestation Participated in pt care: history, MDM, physical Personally performed: exam, history, MDM, supervision of care Care discussed with: Medical Student Procedures: n/a Results interpretation: Verified all documentation Verification and Attestation of Medical Student E/M Service A medical student performed and documented this service in my presence. I reviewed and verified all information documented by the medical student and made modifications to such information, when appropriate. I personally performed the physical exam and medical decision making. Selam Qiu, Jan 26, 2020,19:40 [facility] Jan 26, 2020 12:29 SELAM QIU DO Jan 26, 2020 19:40
--- NOTE | 2020-01-26 12:31 | Physical Therapy Daily Note ---
PT Daily Note-Current Subjective Pt sitting in recliner upon arrival. Pt declines needing to use restroom. Pt is reluctant to PT and questions why she has to continue to stay. Pain Numeric Pain Scale: 8 Pain Description: Ache Comment: Pt reports generalized pain throughout body. Mental Status Patient Orientation: Person, Confused, Place Attachments: Oxygen, Sheth Catheter Transfers SCALE: Activities may be completed with or without assistive devices. 8-Utisokmsvn-dwqbsag completes the activity by him/herself with no assistance from a helper. 5-Set-up or Clean-up Assistance-helper sets up or cleans up; patient completes activity. Sage assists only prior to or following the activity. 4-Supervision or Touching Assistance-helper provides verbal cues and/or touching/steadying and/or contact guard assistance as patient completes activity. Assistance may be provided throughout the activity or intermittently. 3-Partial/Moderate Assistance-helper does LESS THAN HALF the effort. Sage lifts, holds or supports trunk or limbs, but provides less than half the effort. 2-Substantial/Maximal Assistance-helper does MORE THAN HALF the effort. Sage lifts or holds trunk or limbs and provides more than half the effort. 0-Xxywjhhwc-ocflqa does ALL the effort. Patient does none of the effort to co mplete the activity. Or, the assistance of 2 or more helpers is required for the patient to complete the activity. If activity was not attempted, code reason: 7-Patient Refused. 9-Not Applicable-not attempted and the patient did not perform the activity before the current illness, exacerbation or injury. 10-Not Attempted due to Environmental Limitations-(lack of equipment, weather restraints, etc.). 88-Not Attempted due to Medical Conditions or Safety Concerns. Weight Bearing Right Lower Extremity: Right Full Weight Bearing Left Lower Extremity: Left Full Weight Bearing Treatments LOGGING TRACTOR OPERATOR spends Rx discussing need for improved mobility and strength for better outcome at home. Pt reports having FWW, raised toilet seat, shower chair and grab bars at home already. Pt reports having stairs at home and LOGGING TRACTOR OPERATOR encourages pt to try them during Rx but pt wants to eat her lunch instead. Pt reports Sp will be able to assist pt at home and declines Ex or being given written HEP. Pt eating at end of Rx with all needs met, call light next to pt. Assessment Current Status: Poor Progress Pt demonstrates lack of motivation to work with LOGGING TRACTOR OPERATOR for improved outcome for home. Pt feels ready to D/C. Pt visited with Dr Timmons's Med Student during Rx and expressed wanting to check on her "anxiety med". Upon further discussion, pt is referring to her OxyContin. PT Filling Carrier Goals Filling Carrier Goals PT Filling Carrier Goals Time Frame: Feb 07, 2020 Roll Left & Right (QC): 6 Sit to Lying (QC): 6 Lying-Sitting on Side/Bed(QC): 6 Sit to Stand (QC): 6 Chair/Fpl-zv-Nbvfg Xfer(QC): 6 Toilet Transfer (QC): 6 Car Transfer (QC): 6 Does the Patient Walk: Yes Walk 10 feet (QC): 6 Walk 50ft with 2 Turns (QC): 6 Walk 150 ft (QC): 6 Walking 10ft on Uneven Surface: 6 1 Step (curb) (QC): 6 4 Steps (QC): 6 12 Steps (QC): 6 Picking up an Object (QC): 6 Does the Pt use WC or Scooter?: No PT Plan Problem List Problem List: Activity Tolerance, Functional Strength, Safety, Balance, Gait, Transfer Treatment/Plan Treatment Plan: Continue Plan of Care Treatment Plan: Bed Mobility, Education, Functional Activity Nito, Functional Strength, Group Therapy, Gait, Safety, Therapeutic Exercise, Transfers Treatment Duration: Feb 07, 2020 Frequency: 6 times per week Estimated Hrs Per Day: 1.5 hours per day Patient and/or Family Agrees t: Yes Safety Risks/Education Patient Education: Gait Training, Transfer Techniques, Correct Positioning, Disease Process, Safety Issues Teaching Recipient: Patient Teaching Methods: Discussion Response to Teaching: Reinforcement Needed Time/GCodes Time In: 1130 Time Out: 1215 Total Billed Treatment Time: 45 Total Billed Treatment 1, FA x3 (45m) MARIMAR WADE LOGGING TRACTOR OPERATOR Jan 26, 2020 12:31
--- NOTE | 2020-01-26 12:36 | Occupational Therapy Eval ---
OT Evaluation-General/PLF Medical Diagnosis Admission Date Jan 24, 2020 at 11:12 Medical Diagnosis: COPD, myopathy, SBO Onset Date: Jan 17, 2020 Therapy Diagnosis Therapy Diagnosis: Weakness Height/Weight Height (Feet): 5 Height (Inches): 1.00 Weight (Pounds): 162 Weight (Ounces): 0.0 Precautions Precautions/Isolations: Fall Prevention, Standard Precautions Safety Interventions: None Weight Bear Status Weight Bearing Restriction: Weight Bearing/Tolerated Referral Physician: Dr. Timmons Referral Reason: Activity Tolerance, Self Care, Evaluation/Treatment, Strengthening/ROM Medical History Pertinent Medical History: Arthritis, COPD, DM, HTN Additional Medical History pneumonia, coronary stent, hysterectomy Reviewed History: Yes Social History Home: Single Level Current Living Status: Spouse Entry Into Home: Stairs With Railing Steps Into Home: 5 ADL-Prior Level of Function SCALE: Activities may be completed with or without assistive devices. 3-Mdaudloqro-bmpxmhm completes the activity by him/herself with no assistance from a helper. 5-Set-up or Clean-up Assistance-helper sets up or cleans up; patient completes activity. Hungry Horse assists only prior to or following the activity. 4-Supervision or Touching Assistance-helper provides verbal cues and/or touching/steadying and/or contact guard assistance as patient completes activity. Assistance may be provided throughout the activity or intermittently. 3-Partial/Moderate Assistance-helper does LESS THAN HALF the effort. Hungry Horse lifts, holds or supports trunk or limbs, but provides less than half the effort. 2-Substantial/Maximal Assistance-helper does MORE THAN HALF the effort. Hungry Horse lifts or holds trunk or limbs and provides more than half the effort. 1-Lambyruyx-crrthp does ALL the effort. Patient does none of the effort to complete the activity. Or, the assistance of 2 or more helpers is required for the patient to complete the activity. If activity was not attempted, code reason: 7-Patient Refused. 9-Not Applicable-not attempted and the patient did not perform the activity before the current illness, exacerbation or injury. 10-Not Attempted due to Environmental Limitations-(lack of equipment, weather restraints, etc.). 88-Not Attempted due to Medical Conditions or Safety Concerns. ADL PLOF Comments Pt. states that she was independent with daily skills such as bathing and dressing. States that she does have a caregiver 5 days/week, 5 hours at a time. Self Care: Unknown Functional Cognition: Unknown DME/Equipment Comments Pt. states that she has a walker but does not use it. States that she sponge bathes only at home. OT Current Status Subjective No pain reported. Appearance Pt. in bed. Agrees to work with OT. Mental Status/Objective Patient Orientation: Person, Place ADL-Treatment Shower/Bathe Self (QC): 4 (SBA) Upper Body Dressing (QC): 5 Lower Body Dressing (QC): 4 On/Off Footwear (QC): 4 Toileting Hygiene (QC): 1 (Catheter. Pt. was also incontinent of stool but able to cleanse self.) Other Treatments Pt. ambulated with walker and SBA to therapy gym. Completed 3 bilateral UE exercises x 2 lb. dumbbell x 10 reps each in all planes, to increase overall strength and independence. Ambulated back to room with all needs met. Education OT Patient Education: Correct positioning, Exercise program, Modified ADL techniques, Progress toward Goal/Update tx plan, Purpose of tx/functional activities, Reviewed precautions, Rehab process, Transfer techniques Teaching Recipient: Patient Teaching Methods: Demonstration, Discussion Response to Teaching: Verbalize Understanding, Return Demonstration OT Rn Admission Goals Rn Admission Goals Time Frame: Feb 09, 2020 Eating (QC): 6 Oral Hygiene (QC): 6 Toileting Hygiene (QC): 6 Shower/Bathe Self (QC): 5 Upper Body Dressing (QC): 6 Lower Body Dressing (QC): 6 On/Off Footwear (QC): 6 Additional Goals: 1-Demonstrate ADL Tasks, 2-Verbalize Understanding, 3- ImproveStrength/Nito 1=Demonstrate adherence to instructed precautions during ADL tasks. 2=Patient will verbalize/demonstrate understanding of assistive devices/modifications for ADL. 3=Patient will improve strength/tolerance for activity to enable patient to perform ADL's. OT Education/Plan Problem List/Assessment Assessment: Decreased Activ Tolerance, Impaired I ADL's, Impaired Self-Care Skills Discharge Recommendations Plan/Recommendations: Continue POC Therapy Discharge Recommendati: Post Acute OT Treatment Plan/Plan of Care Treatment,Training & Education: Yes Patient would benefit from OT for education, treatment and training to promote independence in ADL's, mobility, safety and/or upper extremity function for ADL's. Plan of Care: ADL Retraining, Functional Mobility, Group Exercise/Act as Ind, UE Funct Exercise/Act Treatment Duration: Feb 09, 2020 Frequency: At least 5 of 7 days/Wk (IRF) Estimated Hrs Per Day: 1.5 hours per day Agreement: Yes Rehab Potential: Good Time/GCodes Start Time: 10:00 Stop Time: 11:00 Total Time Billed (hr/min): 60 Billed Treatment Time 1, EVM x 15minutes, ADL x 30minutes, Ex x 15minutes KHADAR LEWIS OT Jan 26, 2020 12:36
[2020-01-26] MEDS ORDERED: RT-ALBUTEROL/IPRATROPIUM 3 ML (DUONEB) VIAL INH PRN (13:00)
--- NOTE | 2020-01-26 13:10 | NUR ---
Pastoral care visit.
[2020-01-26] MEDS: ALPRAZolam 0.5 MG (XANAX) TAB PO PRN (13:37)
[2020-01-26] MEDS: ENOXAPARIN 40 MG/0.4 ML (LOVENOX) SYR SC SCH (13:38)
--- NOTE | 2020-01-26 14:12 | CONSULTATION REPORT ---
DATE OF SERVICE: 01/26/2020 ATTENDING PHYSICIAN: Dr. Timmons. SUMMARY: A 69-year-old white lady known to me for many years, mostly for urinary incontinence. I have been seeing her for quite a while having trouble apparently with urinary retention and failed trial of voiding. She denies any similar situation or problem at home and said it was associated more with her bowel problem. IMPRESSION: Urinary retention, neurogenic bladder. PLAN: Start her on Flomax 0.4 mg daily and Urecholine 10 mg q.i.d. before meals and at bedtime and watch for any exacerbation of her COPD. Plan was fully explained to the patient. Job ID: [id number] DocumentID: [id number] Dictated Date: 01/26/2020 11:20:53 Artificial Intelligence Specialist Date: 01/26/2020 14:10:34 Dictated By: BRITTNEY PEDRAZA MD MTDD
--- NOTE | 2020-01-26 14:56 | NUR ---
PT IS WITH PT. TREATMENT NOT GIVEN PER PT REQUEST. Addendum: 01/26/20 at 1456 by SANDRINE PRESSLEY RT Amended: Links added.
--- NOTE | 2020-01-26 15:19 | Occupational Ther Daily Note ---
OT Current Status-Daily Note Subjective Pt alert, lying in bed. Pt agrees to therapy. Pt states that she wants to go home soon. No c/o pain. Mental Status/Objective Patient Orientation: Person, Place, Time, Situation Attachments: Sheth Catheter, IV, Oxygen ADL-Treatment Therapy Code Descriptions/Definitions Functional [place] Measure: 0=Not Assessed/NA 4=Minimal Assistance 1=Total Assistance 5=Supervision or Setup 2=Maximal Assistance 6=Modified [place] 3=Moderate Assistance 7=Complete IndependenceSCALE: Activities may be completed with or without assistive devices. 3-Vnjtisbvrj-yudadxu completes the activity by him/herself with no assistance from a helper. 5-Set-up or Clean-up Assistance-helper sets up or cleans up; patient completes activity. [place] assists only prior to or following the activity. 4-Supervision or Touching Assistance-helper provides verbal cues and/or touching/steadying and/or contact guard assistance as patient completes activity. Assistance may be provided throughout the activity or intermittently. 3-Partial/Moderate Assistance-helper does LESS THAN HALF the effort. [place] lifts, holds or supports trunk or limbs, but provides less than half the effort. 2-Substantial/Maximal Assistance-helper does MORE THAN HALF the effort. [place] lifts or holds trunk or limbs and provides more than half the effort. 9-Ldbavczbp-wnrxyd does ALL the effort. Patient does none of the effort to complete the activity. Or, the assistance of 2 or more helpers is required for the patient to complete the activity. If activity was not attempted, code reason: 7-Patient Refused. 9-Not Applicable-not attempted and the patient did not perform the activity before the current illness, exacerbation or injury. 10-Not Attempted due to Environmental Limitations-(lack of equipment, weather restraints, etc.). 88-Not Attempted due to Medical Conditions or Safety Concerns. Other Treatment OT/PT co-treat for 30 min ([id number]), skills of 2 clinicians are required for skilled instruction with safety while manipulating multiple lines for ambulation/transfers, decreased activity tolerance. PT concentrated on fucntional transfers, ambulation and bed mobility. OT worked on ADLs, B UE placement with functional transfers and manipulating tubing for safety. Supine to EOB, mod I. Pt incontinent of bowel. Pt able to manipulate clothing for toileting and cleansing self after toileting. After session, pt lying in bed w ith call light/phone. Pt left in care of PT. All needs met. OT Production Tech Goals Production Tech Goals Time Frame: Feb 09, 2020 Eating (QC): 6 Oral Hygiene (QC): 6 Toileting Hygiene (QC): 6 Shower/Bathe Self (QC): 5 Upper Body Dressing (QC): 6 Lower Body Dressing (QC): 6 On/Off Footwear (QC): 6 Additional Goals: 1-Demonstrate ADL Tasks, 2-Verbalize Understanding, 3- ImproveStrength/Nito 1=Demonstrate adherence to instructed precautions during ADL tasks. 2=Patient will verbalize/demonstrate understanding of assistive devices/modifications for ADL. 3=Patient will improve strength/tolerance for activity to enable patient to perform ADL's. OT Education/Plan Problem List/Assessment Assessment: Decreased Activ Tolerance, Decreased UE Strength, Impaired Self- Care Skills Discharge Recommendations Plan/Recommendations: Continue POC Treatment Plan/Plan of Care Patient would benefit from OT for education, treatment and training to promote independence in ADL's, mobility, safety and/or upper extremity function for ADL's. Plan of Care: ADL Retraining, Functional Mobility, Group Exercise/Act as Ind, UE Funct Exercise/Act Treatment Duration: Feb 09, 2020 Frequency: At least 5 of 7 days/Wk (IRF) Estimated Hrs Per Day: 1.5 hours per day Agreement: Yes Rehab Potential: Good Time/GCodes Start Time: 14:30 Stop Time: 15:00 Total Time Billed (hr/min): 30 Billed Treatment Time 1 visit-ADL 1 (20 min) FA 1 (10 min) AYAKA ROGEL Jan 26, 2020 15:19
--- NOTE | 2020-01-26 15:37 | NUR ---
RD ASSESSMENT PMHx: COPD; HTN; CAD; DM; HLD; GERD; obstructive bowel PT INTERACTION: Pt was awake and pleasant during nutrition assessment. Pt states current appetite is "alright/not good." Note avg PO intake 50-75% x2d, per chart review. Pt states following a regular diet at home and has no difficulty chewing/swallowing food. Pt states no recent issues with n/v at this time. Pt states recent episodes of diarrhea. Note last BM was 01/24 and pt currently on bowel regimen of colace BID; senna BID; and miralax BID, per chart review. Pt states recent 10# wt gain, but did not give timeline. Note unable to determine recent wt hx, per chart review. Pt states current DM management is pretty good. Note unable to determine recent HbA1c, per chart review. ABNORMAL NUTRITION-RELATED LAB VALUES LOW: Ca 8.3; Pro 5.3; alb 2.9 HIGH: glu 150 Est. kcal needs: 9782-9321 kcal | 20-25 kcal/kg Est. Pro needs: 63-79 g Pro | 0.8-1.0 g Pro/kg PES STATEMENT: Inadequate oral intake (NI-2.1) related to loss of appetite | diarrhea as evidenced by pt interview | avg PO intake 50-75% x2d INTERVENTION: Continue with current diet order of Regular diet. Pt may benefit from switching diet order to consistent CHO diet, if blood glucose levels become elevated. Pt may benefit from nutrition supplementation if PO intake declines. Will continue to follow and reassess as pt needs, intake, and status change. MONITOR/EVALUATE: PO Intake; Plan of Care; Hydration Status; Weight Status; Lab Values Navneet Jenkins, MS, RD, LD
--- NOTE | 2020-01-26 15:46 | NUR ---
CM/SS ADMISSION Patient was admitted internally from [facility] to ARU 01/24/20 for Myopathy, COPD. Additional comorbidities are, in part, O2 dependence, history of multiple SBO, chronic abdominal wound and lengthy wound care, HTN, and DM, heavy tobaccoism. Visited with patient and her spouse, Rishi Irizarry, who is at bedside today. Prior to hospitalization, patient resided at home with Rishi and he is her primary caregiver. They indicate he is able to monitor and assist her as needed. PCP: Addy Knight DO, [facility] DME: Home O2 from [facility] Home Medical, FWW, cane, tub bath bench, stool riser, tub grab bar. Monitor for any new DME recommendations from therapy team and any change in current home O2 liter flow. INSURANCE: Medicare, [employer]. IN-HOME SERVICES: Patient has [employer] HCBS 5 hours daily x 5 days per week through [place]. PHARMACY: [facility] CONTACTS: Rishi MauroYordy Juan C, Spouse [address], [place] [address] Patient and spouse indicate understanding of the purpose and process for the weekly Patient Care Conference. Patient is anxious to return home, perhaps in part due to tobaccoism. Spouse encouraged patient to remember she is still recovering from pneumonia and is weak/deconditioned, insurance underwriter sales supported this encouragement.
[2020-01-26 16:00] VITALS: BP 134/53
--- NOTE | 2020-01-26 16:02 | Physical Therapy Daily Note ---
PT Daily Note-Current Subjective Pt laying Supine in bed visiting in Sp upon arrival. Pt agrees to PT/OT co- treat. Pain Numeric Pain Scale: 8 Pain Description: Ache Mental Status Patient Orientation: Person, Confused, Place Attachments: Oxygen, Sheth Catheter, IV Transfers SCALE: Activities may be completed with or without assistive devices. 0-Vpawlgmkim-zfcwxze completes the activity by him/herself with no assistance from a helper. 5-Set-up or Clean-up Assistance-helper sets up or cleans up; patient completes activity. [place] assists only prior to or following the activity. 4-Supervision or Touching Assistance-helper provides verbal cues and/or touching/steadying and/or contact guard assistance as patient completes activity. Assistance may be provided throughout the activity or intermittently. 3-Partial/Moderate Assistance-helper does LESS THAN HALF the effort. [place] lifts, holds or supports trunk or limbs, but provides less than half the effort. 2-Substantial/Maximal Assistance-helper does MORE THAN HALF the effort. [place] lifts or holds trunk or limbs and provides more than half the effort. 7-Glurunezt-ldufxr does ALL the effort. Patient does none of the effort to complete the activity. Or, the assistance of 2 or more helpers is required for the patient to complete the activity. If activity was not attempted, code reason: 7-Patient Refused. 9-Not Applicable-not attempted and the patient did not perform the activity before the current illness, exacerbation or injury. 10-Not Attempted due to Environmental Limitations-(lack of equipment, weather restraints, etc.). 88-Not Attempted due to Medical Conditions or Safety Concerns. Weight Bearing Right Lower Extremity: Right Full Weight Bearing Left Lower Extremity: Left Full Weight Bearing Gait Training Does the Patient Walk?: Yes Distance: 150' Walk 10 feet (QC): 5 Walk 50 ft with 2 Turns(QC): 5 Walk 150 ft (QC): 5 Gait Persons Needed: 1 Gait Assistive Device: FWW Wheelchair Training Does the Pt Use a Wheelchair?: No Stair Training Stair Training: Handrails/: 2 handrails #of Steps: 4 1 Step (curb) (QC): 5 4 Steps (QC): 5 Stairs: Pattern: Step to Treatments OT/PT co-treat for 30 min ([id number]), skills of 2 clinicians are required for skilled instruction with safety while manipulating multiple lines for ambulation/transfers, decreased activity tolerance. PT concentrated on functional transfers, ambulation and bed mobility. OT worked on ADLs, B UE placement with functional transfers and manipulating tubing for safety. Supine to EOB, mod I. Pt incontinent of bowel. Pt able to manipulate clothing for toileting and cleansing self after toileting. Pt ambulates in hallway and completes 1 set of 4 steps. After session, pt lying in bed with call light/phone. Pt left in care of PT. All needs met. Assessment Current Status: Fair Progress Pt needs VC for safety at times. Pt content with others helping pt and not trying to complete task independently. PT Alarm Service Technician Goals Senior Living Goals PT Senior Living Goals Time Frame: Feb 07, 2020 Roll Left & Right (QC): 6 Sit to Lying (QC): 6 Lying-Sitting on Side/Bed(QC): 6 Sit to Stand (QC): 6 Chair/Rcp-qo-Eoxbh Xfer(QC): 6 Toilet Transfer (QC): 6 Car Transfer (QC): 6 Does the Patient Walk: Yes Walk 10 feet (QC): 6 Walk 50ft with 2 Turns (QC): 6 Walk 150 ft (QC): 6 Walking 10ft on Uneven Surface: 6 1 Step (curb) (QC): 6 4 Steps (QC): 6 12 Steps (QC): 6 Picking up an Object (QC): 6 Does the Pt use WC or Scooter?: No PT Plan Problem List Problem List: Activity Tolerance, Functional Strength, Safety Treatment/Plan Treatment Plan: Continue Plan of Care Treatment Plan: Bed Mobility, Education, Functional Activity Nito, Functional Strength, Group Therapy, Gait, Safety, Therapeutic Exercise, Transfers Treatment Duration: Feb 07, 2020 Frequency: 6 times per week Estimated Hrs Per Day: 1.5 hours per day Patient and/or Family Agrees t: Yes Safety Risks/Education Patient Education: Gait Training, Transfer Techniques, Steps, Correct Positioning, Safety Issues Teaching Recipient: Patient Teaching Methods: Discussion Response to Teaching: Verbalize Understanding Time/GCodes Time In: 1430 Time Out: 1515 Total Billed Treatment Time: 45 Total Billed Treatment 1, GT (15m) & FA x2 (30m) MARIMAR WADE PTA Jan 26, 2020 16:02
[2020-01-26] MEDS: BETHANECHOL 10 MG (URECHOLINE) TAB PO SCH ×2 (16:10→21:37)
[2020-01-26] MEDS: TAMSULOSIN 0.4 MG (FLOMAX) CAP PO SCH (18:02)
--- NOTE | 2020-01-26 20:00 | Individualized Plan of Care ---
Individualized Plan of Care Rehab Nursing IPOC Order Admission Date Jan 24, 2020 at 11:12 Current Orders Orders Admission Order(Inpt,Obs,Sdc) (01/23/20 17:24) Vital Signs: Per Unit Policy ( 08,16,00 (01/23/20 17:24) Zacarias Nowak 09,21 (01/23/20 17:24) Sequential Compression Device Q4H (01/23/20:24) Cycling Instructor-Inpt Rehab Con (01/23/20:24) Rehab Nursing Orders-Ipoc (01/23/20 17:24) Physical Therapy Rehab Orders (01/23/20:24) Occupational Therapy Rehab Ord (01/23/20:24) Speech Therapy Rehab Orders (01/23/20) Cbc With Automated Diff (01/25/20 06:00) Comprehensive Metabolic Panel (01/25/20 06:00) Intake & Output 06,14,22 (01/23/20 17:24) Precautions (Aru) (01/23/20:24) Weekly Weight WEEK (01/23/20:24) Rehab-Intensity Of Therapy (01/23/20:24) Initiate Admission Nursing Pro .admission (01/23/20 17:24) Alprazolam Tablet (Xanax Tablet) (01/23/20 17:30) Calcium Carbonate Chew Tablet (Antacid C (01/23/20 17:30) Diphenhydramine Tablet (Benadryl Tablet) (01/23/20 17:30) Docusate Sodium Capsule (Colace Capsule) (01/23/20 21:00) Docusate Sodium Capsule (Colace Capsule) (01/23/20 17:30) Bisacodyl Suppository (Dulcolax Supposit (01/23/20 17:30) Lactulose Oral Solution (Enulose Oral So (01/23/20 17:30) Na Phos/Na Biphos Enema (Fleet Enema [place] (01/23/20 17:30) Guaifenesin/Codeine Syrup (Robitussin Ac (01/23/20 17:30) Loperamide Tablet (Imodium Tablet) (01/23/20 17:30) Enoxaparin Injection (Lovenox Injection) (01/23/20 17:30) Melatonin Tablet (Melatonin Tablet) (01/23/20 17:30) Ondansetron Oral Dissolve Tab (Zofran (01/23/20 17:30) Senna S Tablet (Senokot S Tablet) (01/23/20 21:00) Initiate Admission Nursing Pro .admission (01/23/20 17:24) Admission Arrival Bed Request (01/24/20 11:12) Code/Resuscitation (01/24/20 11:41) Initiate Admission Nursing Pro .admission (01/24/20 11:41) Albuterol/Ipra Inhalation Soln (Duoneb I (01/24/20 15:00) Aspirin Enteric Coated Tablet (Ecotrin T (01/25/20 09:00) Calcium Carbonate Chew Tablet (Antacid C (01/24/20 11:45) Enoxaparin Injection (Lovenox Injection) (01/24/20 13:00) Fluticasone/Salmeterol Common (Advair 11 (01/24/20 20:00) Hydrocodone/Apap 5/325 Tablet (Lortab 5 (01/24/20 11:45) Ketorolac Injection (Toradol Injection) (01/24/20 11:45) Lorazepam Injection (Ativan Injection) (01/24/20 11:45) Ondansetron Injection (Zofran Injectio (01/24/20 11:45) Promethazine Injection (Phenergan Injec (01/24/20 11:45) Quetiapine Immediate Release (Seroquel I (01/24/20 21:00) Ranolazine Er Tablet (Ranexa Er Tablet) (01/24/20 21:00) Piperacillin/Tazobactam (Bulk) (Zosyn In (01/24/20 13:30) Fentanyl Injection (Sublimaze Injection (01/24/20 11:45) Hydralazine Injection (Apresoline Inject (01/24/20 11:45) Insulin Aspart (Novolog) (Novolog (Charg (01/24/20 16:00) Lisinopril Tablet (Zestril Tablet) (01/25/20 09:00) Ropinirole Tablet (Requip Tablet) (01/24/20 21:00) Communication For Respiratory (01/24/20 11:41) Dys2 Mechanically Altered (01/24/20 Dinner) Patient Visit (01/24/20 ) Pt Eval Moderate Complexity (01/24/20 ) Ambulate 08,12,20 (01/24/20 12:17) Sequential Compression Device Q4H (01/24/20 12:17) Dvt/Vte Risk - Notifiy Physici Q4H (01/24/20 12:17) Polyethylene Glycol Powder Pkt (Miralax (01/24/20 21:00) Oxycodone Immediate Rel Tablet (Oxyir Ta (01/24/20 13:00) Piperacillin/Tazobactam (Bulk) (Zosyn In (01/24/20 14:00) Catheter(Urinary) Discontinue ONCE (01/24/20 13:54) Catheter(Urinary) Insert & Ass 03,15 (01/24/20 19:26) Sodium Chloride Flush (Catheter Flush Sy (01/24/20 22:00) Alprazolam Tablet (Xanax Tablet) (01/25/20 12:30) Potassium Chloride (Tablet) (Klor Con Ta (01/25/20 12:30) General/Regular (01/25/20 Lunch) Consult Urology (01/25/20 12:21) Lactobacillus Acidophilus Cap (Acidophil (01/25/20 13:00) C Difficile Ag + Toxin A/B. (01/25/20 14:51) Cbc With Automated Diff (01/26/20 06:00) Comprehensive Metabolic Panel (01/26/20 06:00) Patient Visit (01/26/20 ) Mat Initiate Protocol (01/26/20 09:23) Albuterol/Ipra Inhalation Soln (Duoneb I (01/26/20 13:00) Iron Test (Fe) (01/26/20 09:39) Speech Sound Lang Comp (01/26/20 ) Tamsulosin Capsule (Flomax Capsule) (01/26/20 18:00) Bethanechol Tablet (Urecholine Tablet) (01/26/20 16:00) Nursing Communication (Order) (01/26/20 11:17) Patient Visit (01/26/20 ) Functional Activities, Ea 15 (01/26/20 ) Gait Training, Ea 15 Min (01/26/20 ) Rehab Nursing Orders: Ongoing Assess. of Cognitive Status, Ongoing Assess. of Function Status, Bladder Management, Bladder Scan, Bladder Training, Bowel Management, Bowel Training, Disease Management & Educaiton, DVT Prophylaxis, Fall Prevention, Fluid/Electrolyte/Nutrition Mgmt, Infection Prevention, Medication Management & Education, Management of Risks & Complications, Management of Skin Intergrity, Nutrition Management, Pain Management, Patient/Family Support, Safety Management Intensity of Therapy to be met Patient to be seen: Min.3h per day/5 of 7d PT IPOC Problem List: Activity Tolerance, Functional Strength, Safety Treatment Plan: Continue Plan of Care Bed Mobility, Education, Functional Activity Nito, Functional Strength, Group Therapy, Gait, Safety, Therapeutic Exercise, Transfers Treatment Duration: Feb 07, 2020 Frequency: 6 times per week Estimated Hrs Per Day: 1.5 hours per day OT IPOC Problems: Decreased Activ Tolerance, Decreased UE Strength, Impaired Self-Care Skills OT Treatment, Training and Edu: Yes Plan of Care: ADL Retraining, Functional Mobility, Group Exercise/Act as Ind, UE Funct Exercise/Act Treatment Duration: Feb 09, 2020 Frequency: At least 5 of 7 days/Wk (IRF) Estimated Hrs Per Day: 1.[address] IPOC Speech Therapy Treatment Plan: Continue Plan of Care Treatment Duration: Jan 26, 2020 Frequency: 1 time per week Estimated Hrs Per Day: .25 hour per day Cycling Instructor/Case Mgmt Cycling Instructor/Case Managemen: Discharge Planning Dietitian/Oil And Gas Lease Pumper Dietitian/Oil And Gas Lease Pumper to monitor nutritional status and make changes and/or recommendations as needed and work with speech pathology on dietary upgrades as the occur. Physician IPOC Medical Issues being managed closely and that require the 24 hour availability of a physician: Recent recurrent SBO and severe COPD O2 dependent with apathy and poor motivation and stamina will be at high risk for decompensation Medical Issues: Bowel/Bladder Function, DVT Prophylaxis, Falls Precautions, Fluid/Electrolyte/Nutrition Balance, Infection Protection, Pain Management Brief Synthesis of Preadmission Screen, Post-Admission Evaluation, and Therapy Evaluations: PT OT ST will all work towards assisting patient to build stamina, lung function and fall risk prevention in order to return home with Medical Prognosis: Good Anticipated Length of Stay: 7 days RANDAL QIU DO Jan 26, 2020 20:00
[2020-01-26] MEDS: MELATONIN 3 MG TABLET PO PRN (21:35)
[2020-01-26] MEDS: rOPINIRole 1 MG (REQUIP) TABLET PO SCH (21:35)
[2020-01-26] MEDS: QUEtiapine 100 MG (SEROquel) TAB IMMEDIATE RELEASE PO SCH (21:36)
[2020-01-27 06:00] VITALS: BP 130/68
[2020-01-27] MEDS: BETHANECHOL 10 MG (URECHOLINE) TAB PO SCH ×4 (06:26→20:40)
[2020-01-27] MEDS: KCL 10 MEQ TAB (MICRO K) PO SCH (06:26)
[2020-01-27] MEDS: PIPERACILLIN/TAZOBACTAM (BULK) 4.5 GM in NS (IVPB) 100 ML IV SCH ×3 (06:27→22:27)
[2020-01-27] MEDS: inSUlin ASPART (NovoLOG) 1 UNIT/0.01 ML (CHARGE PER UNIT) SC SCH ×4 (06:27→20:44)
[2020-01-27] MEDS: CATHETER FLUSH 10 ML SYR IV SCH ×3 (06:27→22:27)
[2020-01-27] MEDS: ONDANSETRON 4 MG/2 ML (SDV) Z0FRAN IV PRN ×3 (06:35→22:26)
[2020-01-27] MEDS: RT-ADVAIR HFA 115/21 MCG PER PUFF IH SCH ×2 (07:01→19:53)
[2020-01-27] MEDS: RT-ALBUTEROL/IPRATROPIUM 3 ML (DUONEB) VIAL INH SCH ×4 (07:01→19:52)
--- NOTE | 2020-01-27 09:41 | PM&R Progress Note ---
Subjective HPI/CC On Admission Date Seen by Provider: Jan 27, 2020 Time Seen by Provider: 09:45 Subjective/Events-last exam Nausea last night but she had that at home also Did not eat bfast Incontinent of feces Surgery consult will monitor the SBO recurrent type Claritin 10mg daily Sheth still in place Probiotic is ordered Checked meds and labs Conferred with RN Reviewed therapy notes Review of Systems General: Fatigue Pulmonary: Dyspnea Gastrointestinal: Nausea, Abdominal Pain Neurological: Weakness Objective Exam Vital Signs Vital Signs Date Time Temp Pulse Resp B/P (MAP) Pulse Ox O2 Delivery O2 Flow Rate FiO2 01/27/20 19:57 95 Nasal Cannula 3.00 01/27/20 16:38 80 163/79 (107) 01/27/20 16:19 36.6 16 01/26/20 09:17 40 Capillary Refill : Less Than 3 Seconds General Appearance: No Apparent Distress, WD/WN, Anxious, Chronically ill, Other (pale, frail) HEENT: PERRL/EOMI, Normal ENT Inspection, Pharynx Normal Neck: Full Range of Motion, Normal Inspection, Non Tender, Supple, Carotid Bruit Respiratory: Chest Non Tender, Normal Breath Sounds, No Accessory Muscle Use, No Respiratory Distress, Decreased Breath Sounds Cardiovascular: Regular Rate, Rhythm, No Edema, No Gallop, No JVD, No Murmur, Normal Peripheral Pulses Gastrointestinal: Normal Bowel Sounds, No Organomegaly, No Pulsatile Mass, Non Tender, Soft Back: Normal Inspection, No CVA Tenderness, No Vertebral Tenderness Extremity: Normal Capillary Refill, Normal Inspection, Normal Range of Motion, Non Tender, No Calf Tenderness, No Pedal Edema Neurologic/Psychiatric: Alert, Oriented x3, No Motor/Sensory Deficits, Normal Mood/Affect, tractor mechanic helper II-XII Norm as Tested, Abnormal Gait, Motor Weakness (generalized legs) Skin: Normal Color, Warm/Dry Lymphatic: No Adenopathy Results/Procedures Lab Patient resulted labs reviewed. FIM Transfers Therapy Code Descriptions/Definitions Functional [place] Measure: 0=Not Assessed/NA 4=Minimal Assistance 1=Total Assistance 5=Supervision or Setup 2=Maximal Assistance 6=Modified [place] 3=Moderate Assistance 7=Complete IndependenceSCALE: Activities may be completed with or without assistive devices. 1-Ynxbifddue-cdcrkhr completes the activity by him/herself with no assistance from a helper. 5-Set-up or Clean-up Assistance-helper sets up or cleans up; patient completes activity. [place] assists only prior to or following the activity. 4-Supervision or Touching Assistance-helper provides verbal cues and/or touching/steadying and/or contact guard assistance as patient completes activity. Assistance may be provided throughout the activity or intermittently. 3-Partial/Moderate Assistance-helper does LESS THAN HALF the effort. [place] lifts, holds or supports trunk or limbs, but provides less than half the effort. 2-Substantial/Maximal Assistance-helper does MORE THAN HALF the effort. [place] lifts or holds trunk or limbs and provides more than half the effort. 9-Iyiqawgao-hpxxca does ALL the effort. Patient does none of the effort to complete the activity. Or, the assistance of 2 or more helpers is required for the patient to complete the activity. If activity was not attempted, code reason: 7-Patient Refused. 9-Not Applicable-not attempted and the patient did not perform the activity before the current illness, exacerbation or injury. 10-Not Attempted due to Environmental Limitations-(lack of equipment, weather restraints, etc.). 88-Not Attempted due to Medical Conditions or Safety Concerns. Roll Left to Right (QC): 6 Sit to Lying (QC): 6 Sit to Stand (QC): 4 Chair/Pze-go-Pnirm Xfer(QC): 4 Car Transfer (QC): 4 Gait Training Does the Patient Walk?: Yes Distance: 150' Walk 10 feet (QC): 5 Walk 50 ft with 2 Turns(QC): 5 Walk 150 ft (QC): 5 Walking 10ft/uneven surface-QC: 4 Gait Persons Needed: 1 Gait Assistive Device: FWW Wheelchair Training Does the Pt Use a Wheelchair?: No Stair Training Stair Training: Handrails/: 2 handrails #of Steps: 4 1 Step (curb) (QC): 5 4 Steps (QC): 5 12 Steps (QC): 4 Stairs: Pattern: Step to Balance Picking up an Object (QC): 4 ADL-Treatment Shower/Bathe Self (QC): 4 (SBA) Upper Body Dressing (QC): 5 Lower Body Dressing (QC): 4 On/Off Footwear (QC): 4 Toileting Hygiene (QC): 1 (Catheter. Pt. was also incontinent of stool but able to cleanse self.) Assessment/Plan Assessment and Plan Assess & Plan/Chief Complaint Assessment: COPD myopathy Recurrent SBO COPD O2 dependence Smoker heavy Anxiety Chronic pain Narcotic dependence Narcotic bowel Anemia Leukocytosis Hypoxia Urinary retention Sheth in place again after failing DC consulted Dr Puente and his help is appreciated Plan: IRF protocol Stamina building O2 Nebs Anxiety management Pain meds Bowel regimen Advanced diet Sheth cath, consult Dr Puente appreciated Slow increase of Urecholine dose (1) Myopathy (2) COPD (chronic obstructive pulmonary disease) (3) Oxygen dependent (4) Anxiety (5) Hx SBO (6) Hypertension (7) Hyperlipidemia (8) Diabetes (9) Smoker (10) Depression (11) Urinary retention (12) Sheth catheter in place (13) Chronic pain (14) Narcotic dependence (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
[2020-01-27] MEDS: LACTOBACILLUS ACIDOPHILUS (PROBIOTIC) CAPSULE PO SCH ×3 (09:53→17:53)
[2020-01-27] MEDS: polyethylene glycoL POWDER 17 GM (MIRALAX) PACK PO SCH ×2 (09:53→20:39)
[2020-01-27] MEDS: ASPIRIN E.C. 81 MG (ECOTRIN) TAB PO SCH (09:53)
[2020-01-27] MEDS: DOCUSATE SODIUM 100 MG (COLACE) CAP PO SCH ×2 (09:53→20:39)
[2020-01-27] MEDS: RANOLAZINE ER 500 MG TAB (RANEXA) PO SCH ×2 (09:53→20:39)
[2020-01-27] MEDS: lisINopril 10 MG (PRINIVIL) TABLET PO SCH (09:54)
[2020-01-27] MEDS: SENNA W/DOCUSATE (SENOKOT S) TABLET PO SCH ×2 (09:54→20:40)
[2020-01-27] MEDS: ONDANSETRON 4 MG (ZOFRAN) ORAL DISSOLVE TAB PO PRN (10:09)
--- NOTE | 2020-01-27 10:09 | NUR ---
Admission QC for toilet transfer is 4 per Navneet Boyd PTA.
--- NOTE | 2020-01-27 10:09 | Progress Note - Urology ---
Progress Note-Urology Progress Notes/Assess & Plan Progress/Assessment & Plan TOLERATES MEDS WELL. TOV TODAY Final Diagnosis URINE RETENTION BRITTNEY PEDRAZA MD Jan 27, 2020 10:09
--- NOTE | 2020-01-27 11:20 | Occupational Ther Daily Note ---
OT Current Status-Daily Note Subjective Pt resting in bed, agrees to therapy with encouragement. Pt states multiple times throughout session that she just wants to go home. Pt has no reports of pain, but states she is having nausea. RN notified and provided medication. Mental Status/Objective Attachments: Sheth Catheter, Oxygen ADL-Treatment Pt supine to sit without assist. Sponge bath completed while seated EOB. Pt bat hed upper body with set up. Bathed lower body with SBA for balance while standing to wash buttocks. Pt requires increased time to complete task. Pt donned gown with set up. After catheter was threaded through shorts, pt was able to don them with SBA. Doff/don socks with set up while seated EOB. Pt was assisted to wash hair using shampoo cap. Pt able to dry and comb hair with setup. Pt moves slowly and requires increased time for ADL tasks. Therapy Code Descriptions/Definitions Functional [place] Measure: 0=Not Assessed/NA 4=Minimal Assistance 1=Total Assistance 5=Supervision or Setup 2=Maximal Assistance 6=Modified [place] 3=Moderate Assistance 7=Complete IndependenceSCALE: Activities may be completed with or without assistive devices. 9-Mwvskgrzyc-deetirg completes the activity by him/herself with no assistance from a helper. 5-Set-up or Clean-up Assistance-helper sets up or cleans up; patient completes activity. [place] assists only prior to or following the activity. 4-Supervision or Touching Assistance-helper provides verbal cues and/or touching/steadying and/or contact guard assistance as patient completes activity. Assistance may be provided throughout the activity or intermittently. 3-Partial/Moderate Assistance-helper does LESS THAN HALF the effort. [place] l ifts, holds or supports trunk or limbs, but provides less than half the effort. 2-Substantial/Maximal Assistance-helper does MORE THAN HALF the effort. [place] lifts or holds trunk or limbs and provides more than half the effort. 1-Dlqrvyowb-evcgvv does ALL the effort. Patient does none of the effort to complete the activity. Or, the assistance of 2 or more helpers is required for t he patient to complete the activity. If activity was not attempted, code reason: 7-Patient Refused. 9-Not Applicable-not attempted and the patient did not perform the activity before the current illness, exacerbation or injury. 10-Not Attempted due to Environmental Limitations-(lack of equipment, weather restraints, etc.). 88-Not Attempted due to Medical Conditions or Safety Concerns. Shower/Bathe Self (QC): 4 Lower Body Dressing (QC): 4 On/Off Footwear: 5 Other Treatment Pt ambulated around ARU using FWW, no LOB noted. Assist to manage IV pole and O2. Pt took seated rest break upon arrival to therapy gym. Pt performed three bilateral UE exercises x10 reps with 2# weights to increase strength needed for ADLs and transfers. Rest breaks taken between exercises. Pt returned to room, transferred to bed with SBA. Sit to supine without assist. Pt resting in bed with needs met after session. OT Snf Goals Clinical Asst Goals Time Frame: Feb 09, 2020 Eating (QC): 6 Oral Hygiene (QC): 6 Toileting Hygiene (QC): 6 Shower/Bathe Self (QC): 5 Upper Body Dressing (QC): 6 Lower Body Dressing (QC): 6 On/Off Footwear (QC): 6 Additional Goals: 1-Demonstrate ADL Tasks, 2-Verbalize Understanding, 3- ImproveStrength/Nito 1=Demonstrate adherence to instructed precautions during ADL tasks. 2=Patient will verbalize/demonstrate understanding of assistive devices/modifications for ADL. 3=Patient will improve strength/tolerance for activity to enable patient to perform ADL's. OT Education/Plan Discharge Recommendations Plan/Recommendations: Continue POC Treatment Plan/Plan of Care Patient would benefit from OT for education, treatment and training to promote independence in ADL's, mobility, safety and/or upper extremity function for ADL's. Plan of Care: ADL Retraining, Functional Mobility, Group Exercise/Act as Ind, UE Funct Exercise/Act Treatment Duration: Feb 09, 2020 Frequency: At least 5 of 7 days/Wk (IRF) Estimated Hrs Per Day: 1.5 hours per day Agreement: Yes Rehab Potential: Good Time/GCodes Start Time: 09:30 Stop Time: 11:00 Total Time Billed (hr/min): 90 Billed Treatment Time 1 visit, ADLx4(60minutes), EX(20minutes), FA(10minutes) CARLOS ENRIQUE MAGALLANES OT Jan 27, 2020 11:20
[2020-01-27] MEDS: ALPRAZolam 0.5 MG (XANAX) TAB PO PRN (11:36)
[2020-01-27] MEDS ORDERED: LORATADINE (CLARITIN) 10 MG TAB PO NR (12:00)
--- NOTE | 2020-01-27 12:02 | NUR ---
Pt asking if she can have Claritin ordered, c/o sinus H/A, states that she takes this at home.
--- NOTE | 2020-01-27 12:08 | NUR ---
ENTERED MED REC FROM HIS DISCHARGE ON 4TH FLOOR ON 01-23-2020. I HAD COMPLETED THE MED REC ON 01-19-2020. NO MEDS WERE DISCONTINUED, CHANGED AND NO NEW MEDS WERE STARTED. I COMPLETED THE MED REC FOR HER IRF ACCOUNT SO MEDS COULD BE RESTARTED
--- NOTE | 2020-01-27 12:10 | Physical Therapy Daily Note ---
PT Daily Note-Current Subjective Pt laying Supine in bed upon arrival. Pt reluctantly agrees to PT. " I have to work now?" Mental Status Patient Orientation: Person, Confused, Place Attachments: Oxygen, Sheth Catheter Pt reports nausea and demonstrates confusion during Rx. Transfers SCALE: Activities may be completed with or without assistive devices. 3-Esppbbqvdz-qymwisq completes the activity by him/herself with no assistance from a helper. 5-Set-up or Clean-up Assistance-helper sets up or cleans up; patient completes activity. [place] assists only prior to or following the activity. 4-Supervision or Touching Assistance-helper provides verbal cues and/or touching/steadying and/or contact guard assistance as patient completes activity. Assistance may be provided throughout the activity or intermittently. 3-Partial/Moderate Assistance-helper does LESS THAN HALF the effort. [place] lifts, holds or supports trunk or limbs, but provides less than half the effort. 2-Substantial/Maximal Assistance-helper does MORE THAN HALF the effort. [place] lifts or holds trunk or limbs and provides more than half the effort. 4-Lymkhjqqg-msyjbh does ALL the effort. Patient does none of the effort to complete the activity. Or, the assistance of 2 or more helpers is required for the patient to complete the activity. If activity was not attempted, code reason: 7-Patient Refused. 9-Not Applicable-not attempted and the patient did not perform the activity before the current illness, exacerbation or injury. 10-Not Attempted due to Environmental Limitations-(lack of equipment, weather restraints, etc.). 88-Not Attempted due to Medical Conditions or Safety Concerns. Sit to Lying (QC): 5 Lying to Sitting/Side of Bed(Q: 5 Sit to Stand (QC): 5 Weight Bearing Right Lower Extremity: Right Full Weight Bearing Left Lower Extremity: Left Full Weight Bearing Gait Training Does the Patient Walk?: Yes Distance: 150' Walk 10 feet (QC): 5 Walk 50 ft with 2 Turns(QC): 5 Walk 150 ft (QC): 5 Gait Persons Needed: 1 Gait Assistive Device: FWW Wheelchair Training Does the Pt Use a Wheelchair?: No Exercises Seated Therapy Exercises: Ankle pumps, Long arc quads, Hip flexion, Kicking activity, Glut set Seated Reps: 15 NuStep Minutes: 7 NuStep Workload: 4 Treatments Pt transfers to standing then ambulates in hallway. Pt uses NuStep for 7m at WL 4, followed by RB. Pt completes Seated Ex before returning to room. Pt asks to lay Supine in bed. COLLEGE TUTOR assists pt with doffing pants. Assessment Current Status: Good Progress Pt continues to need VC and encouragement to participate in Therapy. Pt just wants to go home. PT Subway Car Repairer Goals Subway Car Repairer Goals PT Long-Term Goals Time Frame: Feb 07, 2020 Roll Left & Right (QC): 6 Sit to Lying (QC): 6 Lying-Sitting on Side/Bed(QC): 6 Sit to Stand (QC): 6 Chair/Jbh-ka-Knoaa Xfer(QC): 6 Toilet Transfer (QC): 6 Car Transfer (QC): 6 Does the Patient Walk: Yes Walk 10 feet (QC): 6 Walk 50ft with 2 Turns (QC): 6 Walk 150 ft (QC): 6 Walking 10ft on Uneven Surface: 6 1 Step (curb) (QC): 6 4 Steps (QC): 6 12 Steps (QC): 6 Picking up an Object (QC): 6 Does the Pt use WC or Scooter?: No PT Plan Problem List Problem List: Activity Tolerance, Functional Strength, Safety Treatment/Plan Treatment Plan: Continue Plan of Care Treatment Plan: Bed Mobility, Education, Functional Activity Nito, Functional Strength, Group Therapy, Gait, Safety, Therapeutic Exercise, Transfers Treatment Duration: Feb 07, 2020 Frequency: 6 times per week Estimated Hrs Per Day: 1.5 hours per day Patient and/or Family Agrees t: Yes Safety Risks/Education Patient Education: Gait Training, Transfer Techniques, Correct Positioning, Safety Issues Teaching Recipient: Patient Teaching Methods: Discussion Response to Teaching: Verbalize Understanding Time/GCodes Time In: 1100 Time Out: 1200 Total Billed Treatment Time: 60 Total Billed Treatment 1, GT (15m), EX x2 (30m) & FA (15m) MARIMAR WADE PTA Jan 27, 2020 12:10
[2020-01-27] MEDS: ENOXAPARIN 40 MG/0.4 ML (LOVENOX) SYR SC SCH (13:53)
--- NOTE | 2020-01-27 15:13 | Physical Therapy Daily Note ---
PT Daily Note-Current Subjective Pt laying Supine in bed visiting with Sp upon arrival. Pt agrees to PT. Mental Status Patient Orientation: Person, Confused, Place Attachments: Oxygen, Sheth Catheter Transfers SCALE: Activities may be completed with or without assistive devices. 0-Jbtvujuntt-ezvszon completes the activity by him/herself with no assistance from a helper. 5-Set-up or Clean-up Assistance-helper sets up or cleans up; patient completes activity. [place] assists only prior to or following the activity. 4-Supervision or Touching Assistance-helper provides verbal cues and/or touching/steadying and/or contact guard assistance as patient completes activity. Assistance may be provided throughout the activity or intermittently. 3-Partial/Moderate Assistance-helper does LESS THAN HALF the effort. [place] lifts, holds or supports trunk or limbs, but provides less than half the effort. 2-Substantial/Maximal Assistance-helper does MORE THAN HALF the effort. [place] lifts or holds trunk or limbs and provides more than half the effort. 4-Xmibanrni-otahum does ALL the effort. Patient does none of the effort to complete the activity. Or, the assistance of 2 or more helpers is required for the patient to complete the activity. If activity was not attempted, code reason: 7-Patient Refused. 9-Not Applicable-not attempted and the patient did not perform the activity before the current illness, exacerbation or injury. 10-Not Attempted due to Environmental Limitations-(lack of equipment, weather restraints, etc.). 88-Not Attempted due to Medical Conditions or Safety Concerns. Weight Bearing Right Lower Extremity: Right Full Weight Bearing Left Lower Extremity: Left Full Weight Bearing Exercises Supine Ex: Ankle pumps, Quad Set, Glut sets, Heel Slides, Straight leg raise, Hip abd/add Supine Reps: 20 Treatments Pt completes Supine EX in bed. NAPPER FIXER gives written HEP and explains it. Pt resting at end of Rx with all needs met, call light in hand. Assessment Current Status: Fair Progress Pt reports, "I will not stay another two days. I'm ready to leave now". Sp agrees that he will have "worker" to assist him in caring for pt. PT Shelter Goals Shelter Goals PT Equipment Manager Goals Time Frame: Feb 07, 2020 Roll Left & Right (QC): 6 Sit to Lying (QC): 6 Lying-Sitting on Side/Bed(QC): 6 Sit to Stand (QC): 6 Chair/Ptc-hd-Egmlj Xfer(QC): 6 Toilet Transfer (QC): 6 Car Transfer (QC): 6 Does the Patient Walk: Yes Walk 10 feet (QC): 6 Walk 50ft with 2 Turns (QC): 6 Walk 150 ft (QC): 6 Walking 10ft on Uneven Surface: 6 1 Step (curb) (QC): 6 4 Steps (QC): 6 12 Steps (QC): 6 Picking up an Object (QC): 6 Does the Pt use WC or Scooter?: No PT Plan Problem List Problem List: Activity Tolerance, Functional Strength Treatment/Plan Treatment Plan: Continue Plan of Care Treatment Plan: Bed Mobility, Education, Functional Activity Nito, Functional Strength, Group Therapy, Gait, Safety, Therapeutic Exercise, Transfers Treatment Duration: Feb 07, 2020 Frequency: 6 times per week Estimated Hrs Per Day: 1.5 hours per day Patient and/or Family Agrees t: Yes Safety Risks/Education Patient Education: Issued Written HEP, Correct Positioning, Safety Issues Teaching Recipient: Patient, Significant Other Teaching Methods: Handout, Discussion Response to Teaching: Verbalize Understanding Time/GCodes Time In: 1415 Time Out: 1445 Total Billed Treatment Time: 30 Total Billed Treatment 1, EX x2 (30m) MARIMAR WADE PTA Jan 27, 2020 15:13
[2020-01-27 16:19] VITALS: BP 175/79
[2020-01-27 16:38] VITALS: BP 163/79
[2020-01-27] MEDS: TAMSULOSIN 0.4 MG (FLOMAX) CAP PO SCH (17:52)
[2020-01-27] MEDS: MELATONIN 3 MG TABLET PO PRN (20:39)
[2020-01-27] MEDS: QUEtiapine 100 MG (SEROquel) TAB IMMEDIATE RELEASE PO SCH (20:40)
[2020-01-27] MEDS: rOPINIRole 1 MG (REQUIP) TABLET PO SCH (20:40)
[2020-01-28] MEDS: inSUlin ASPART (NovoLOG) 1 UNIT/0.01 ML (CHARGE PER UNIT) SC SCH ×4 (05:50→21:00)
[2020-01-28] MEDS: KCL 10 MEQ TAB (MICRO K) PO SCH (06:01)
[2020-01-28] MEDS: ONDANSETRON 4 MG (ZOFRAN) ORAL DISSOLVE TAB PO PRN (06:01)
[2020-01-28] MEDS: BETHANECHOL 10 MG (URECHOLINE) TAB PO SCH ×4 (06:01→21:57)
[2020-01-28] MEDS: PIPERACILLIN/TAZOBACTAM (BULK) 4.5 GM in NS (IVPB) 100 ML IV SCH (06:04)
[2020-01-28] MEDS: CATHETER FLUSH 10 ML SYR IV SCH ×3 (06:04→21:57)
[2020-01-28 06:43] VITALS: BP 157/72
[2020-01-28] MEDS: RT-ALBUTEROL/IPRATROPIUM 3 ML (DUONEB) VIAL INH SCH ×4 (08:20→19:15)
[2020-01-28] MEDS: RT-ADVAIR HFA 115/21 MCG PER PUFF IH SCH (08:24)
[2020-01-28] MEDS: ASPIRIN E.C. 81 MG (ECOTRIN) TAB PO SCH (08:50)
[2020-01-28] MEDS: RANOLAZINE ER 500 MG TAB (RANEXA) PO SCH ×2 (08:50→21:57)
[2020-01-28] MEDS: LACTOBACILLUS ACIDOPHILUS (PROBIOTIC) CAPSULE PO SCH ×3 (08:50→16:49)
[2020-01-28] MEDS: ONDANSETRON 4 MG/2 ML (SDV) Z0FRAN IV PRN ×2 (08:50→21:57)
[2020-01-28] MEDS: SENNA W/DOCUSATE (SENOKOT S) TABLET PO SCH ×2 (08:50→21:57)
[2020-01-28] MEDS: LORATADINE (CLARITIN) 10 MG TAB PO SCH (08:51)
[2020-01-28] MEDS: lisINopril 10 MG (PRINIVIL) TABLET PO SCH (08:51)
[2020-01-28] MEDS: polyethylene glycoL POWDER 17 GM (MIRALAX) PACK PO SCH ×2 (08:51→21:57)
[2020-01-28] MEDS: DOCUSATE SODIUM 100 MG (COLACE) CAP PO SCH ×2 (08:52→21:57)
[2020-01-28] MEDS: ALPRAZolam 0.5 MG (XANAX) TAB PO PRN ×2 (09:05→16:48)
--- NOTE | 2020-01-28 10:21 | Occupational Ther Daily Note ---
OT Current Status-Daily Note Subjective Pt in bed, agrees to therapy. States she wants to go home tomorrow. Mental Status/Objective Attachments: IV, Oxygen ADL-Treatment Therapy Code Descriptions/Definitions Functional [place] Measure: 0=Not Assessed/NA 4=Minimal Assistance 1=Total Assistance 5=Supervision or Setup 2=Maximal Assistance 6=Modified [place] 3=Moderate Assistance 7=Complete IndependenceSCALE: Activities may be completed with or without assistive devices. 0-Tqmwzgagkd-jybhhna completes the activity by him/herself with no assistance from a helper. 5-Set-up or Clean-up Assistance-helper sets up or cleans up; patient completes activity. [place] assists only prior to or following the activity. 4-Supervision or Touching Assistance-helper provides verbal cues and/or touching/steadying and/or contact guard assistance as patient completes activity. Assistance may be provided throughout the activity or intermittently. 3-Partial/Moderate Assistance-helper does LESS THAN HALF the effort. [place] lifts, holds or supports trunk or limbs, but provides less than half the effort. 2-Substantial/Maximal Assistance-helper does MORE THAN HALF the effort. [place] lifts or holds trunk or limbs and provides more than half the effort. 9-Rdatcspgo-ymdbgu does ALL the effort. Patient does none of the effort to complete the activity. Or, the assistance of 2 or more helpers is required for the patient to complete the activity. If activity was not attempted, code reason: 7-Patient Refused. 9-Not Applicable-not attempted and the patient did not perform the activity before the current illness, exacerbation or injury. 10-Not Attempted due to Environmental Limitations-(lack of equipment, weather restraints, etc.). 88-Not Attempted due to Medical Conditions or Safety Concerns. Oral Hygiene (QC): 5 (Pt completed oral hygiene with mouth swab after set up.) Shower/Bathe Self (QC): 5 (Sponge bath completed seated EOB. Declined shower, states she only does sponge baths at home. Pt able to wash/dry all areas after set up. ) Upper Body Dressing (QC): 5 (Pt donned pullover shirt with set up) Lower Body Dressing (QC): 4 (Pt able to thread bilateral LE into Depends and shorts. Stood with supervision for balance during pant hike) On/Off Footwear: 5 (Doffs/dons socks with set up while seated EOB) Toileting Hygiene (QC): 4 (Pt completed toileting hygiene and clothing management with SBA for standing balance) Toilet Transfer (QC): 4 (Supervision for safety. Uses grab bar for balance.) Other Treatment Pt performed gait to therapy gym with FWW, no LOB noted, but cues for safety. Pt completed UE activity while standing to increase balance and activity tolerance. Pt took one seated rest break. No LOB noted. Pt returned to room, resting in bed with needs met after session. Education OT Patient Education: Safety issues Teaching Recipient: Patient Teaching Methods: Discussion Response to Teaching: Verbalize Understanding, Reinforcement Needed OT Air Crew Officer Goals Air Crew Officer Goals Time Frame: Feb 09, 2020 Eating (QC): 6 Oral Hygiene (QC): 6 Toileting Hygiene (QC): 6 Shower/Bathe Self (QC): 5 Upper Body Dressing (QC): 6 Lower Body Dressing (QC): 6 On/Off Footwear (QC): 6 Additional Goals: 1-Demonstrate ADL Tasks, 2-Verbalize Understanding, 3-ImproveStrength/Nito 1=Demonstrate adherence to instructed precautions during ADL tasks. 2=Patient will verbalize/demonstrate understanding of assistive devices/modifications for ADL. 3=Patient will improve strength/tolerance for activity to enable patient to perform ADL's. OT Education/Plan Discharge Recommendations Plan/Recommendations: Continue POC Treatment Plan/Plan of Care Patient would benefit from OT for education, treatment and training to promote independence in ADL's, mobility, safety and/or upper extremity function for ADL's. Plan of Care: ADL Retraining, Functional Mobility, Group Exercise/Act as Ind, UE Funct Exercise/Act Treatment Duration: Feb 09, 2020 Frequency: At least 5 of 7 days/Wk (IRF) Estimated Hrs Per Day: 1.5 hours per day Agreement: Yes Rehab Potential: Good Time/GCodes Start Time: 09:00 Stop Time: 10:00 Total Time Billed (hr/min): 60 Billed Treatment Time 1 visit, ADLx3(45minutes), EX(15minutes) CARLOS ENRIQUE MAGALLANES OT Jan 28, 2020 10:21
--- NOTE | 2020-01-28 11:12 | PM&R Progress Note ---
Subjective HPI/CC On Admission Date Seen by Provider: Jan 28, 2020 Time Seen by Provider: 11:00 Subjective/Events-last exam Nausea periodically but that is chronic Eating better Incontinent of feces at times Surgery consult will monitor the SBO recurrent type and I appreciate Dr Kendrick's help and we conferred Claritin 10mg daily is doing well with that Sheth DC and PVR 0 Probiotic is ordered Zosyn DC today Checked meds and labs Conferred with RN Reviewed therapy notes Review of Systems General: Fatigue Pulmonary: Dyspnea Objective Exam Vital Signs Vital Signs Date Time Temp Pulse Resp B/P (MAP) Pulse Ox O2 Delivery O2 Flow Rate FiO2 01/28/20 10:21 93 Nasal Cannula 3.00 01/28/20 06:43 36.0 64 20 157/72 (100) 01/26/20 09:17 40 Capillary Refill : Less Than 3 Seconds General Appearance: No Apparent Distress, WD/WN, Anxious, Chronically ill, Other (pale, frail) HEENT: PERRL/EOMI, Normal ENT Inspection, Pharynx Normal Neck: Full Range of Motion, Normal Inspection, Non Tender, Supple, Carotid Bruit Respiratory: Chest Non Tender, Normal Breath Sounds, No Accessory Muscle Use, No Respiratory Distress, Decreased Breath Sounds Cardiovascular: Regular Rate, Rhythm, No Edema, No Gallop, No JVD, No Murmur, Normal Peripheral Pulses Gastrointestinal: Normal Bowel Sounds, No Organomegaly, No Pulsatile Mass, Non Tender, Soft Back: Normal Inspection, No CVA Tenderness, No Vertebral Tenderness Extremity: Normal Capillary Refill, Normal Inspection, Normal Range of Motion, Non Tender, No Calf Tenderness, No Pedal Edema Neurologic/Psychiatric: Alert, Oriented x3, No Motor/Sensory Deficits, Normal Mood/Affect, investment accounting clerk II-XII Norm as Tested, Abnormal Gait, Motor Weakness (generalized legs) Skin: Normal Color, Warm/Dry Lymphatic: No Adenopathy Results/Procedures Lab Patient resulted labs reviewed. FIM Transfers Therapy Code Descriptions/Definitions Functional [place] Measure: 0=Not Assessed/NA 4=Minimal Assistance 1=Total Assistance 5=Supervision or Setup 2=Maximal Assistance 6=Modified [place] 3=Moderate Assistance 7=Complete IndependenceSCALE: Activities may be completed with or without assistive devices. 5-Ndakmtswfa-nvkwazl completes the activity by him/herself with no assistance from a helper. 5-Set-up or Clean-up Assistance-helper sets up or cleans up; patient completes activity. [place] assists only prior to or following the activity. 4-Supervision or Touching Assistance-helper provides verbal cues and/or rosalind ivis/steadying and/or contact guard assistance as patient completes activity. Assistance may be provided throughout the activity or intermittently. 3-Partial/Moderate Assistance-helper does LESS THAN HALF the effort. [place] lifts, holds or supports trunk or limbs, but provides less than half the effort. 2-Substantial/Maximal Assistance-helper does MORE THAN HALF the effort. [place] lifts or holds trunk or limbs and provides more than half the effort. 4-Bfwdhfjbk-nwjgqx does ALL the effort. Patient does none of the effort to complete the activity. Or, the assistance of 2 or more helpers is required for the patient to complete the activity. If activity was not attempted, code reason: 7-Patient Refused. 9-Not Applicable-not attempted and the patient did not perform the activity before the current illness, exacerbation or injury. 10-Not Attempted due to Environmental Limitations-(lack of equipment, weather restraints, etc.). 88-Not Attempted due to Medical Conditions or Safety Concerns. Roll Left to Right (QC): 6 Sit to Lying (QC): 5 Sit to Stand (QC): 5 Chair/Obb-lh-Iidsj Xfer(QC): 4 Car Transfer (QC): 4 Gait Training Does the Patient Walk?: Yes Distance: 150' Walk 10 feet (QC): 5 Walk 50 ft with 2 Turns(QC): 5 Walk 150 ft (QC): 5 Walking 10ft/uneven surface-QC: 4 Gait Persons Needed: 1 Gait Assistive Device: FWW Wheelchair Training Does the Pt Use a Wheelchair?: No Stair Training Stair Training: Handrails/: 2 handrails #of Steps: 4 1 Step (curb) (QC): 5 4 Steps (QC): 5 12 Steps (QC): 4 Stairs: Pattern: Step to Balance Picking up an Object (QC): 4 ADL-Treatment Oral Hygiene (QC): 5 (Pt completed oral hygiene with mouth swab after set up.) Shower/Bathe Self (QC): 5 (Sponge bath completed seated EOB. Declined shower, states she only does sponge baths at home. Pt able to wash/dry all areas after set up. ) Upper Body Dressing (QC): 5 (Pt donned pullover shirt with set up) Lower Body Dressing (QC): 4 (Pt able to thread bilateral LE into Depends and shorts. Stood with supervision for balance during pant hike) On/Off Footwear (QC): 5 (Doffs/dons socks with set up while seated EOB) Toileting Hygiene (QC): 4 (Pt completed toileting hygiene and clothing management with SBA for standing balance) Toilet Transfer (QC): 4 (Supervision for safety. Uses grab bar for balance.) Assessment/Plan Assessment and Plan Assess & Plan/Chief Complaint Assessment: COPD myopathy Recurrent SBO COPD O2 dependence Smoker heavy Anxiety Chronic pain Narcotic dependence Narcotic bowel Anemia Leukocytosis Hypoxia Urinary retention Sheth in place again after failing DC consulted Dr Puente and his help is appreciated Plan: IRF protocol [place] building O2 Nebs Anxiety management Pain meds Bowel regimen Advanced diet Sheth cath DC, consult Dr Puente appreciated Slow increase of Urecholine dose and doing well (1) Myopathy (2) COPD (chronic obstructive pulmonary disease) (3) Oxygen dependent (4) Anxiety (5) Hx SBO (6) Hypertension (7) Hyperlipidemia (8) Diabetes (9) Smoker (10) Depression (11) Urinary retention (12) Sheth catheter in place (13) Chronic pain (14) Narcotic dependence (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
--- NOTE | 2020-01-28 11:46 | Physical Therapy Daily Note ---
PT Daily Note-Current Subjective Pt laying Supine in bed upon arrival. Pt agrees to PT. Pt reports she is "leaving tomorrow whether doctor agrees or not". Pain Location: No Pain Reported Mental Status Patient Orientation: Person, Confused, Place Attachments: Oxygen (3L) Transfers SCALE: Activities may be completed with or without assistive devices. 7-Dtzsphzogx-toggicc completes the activity by him/herself with no assistance from a helper. 5-Set-up or Clean-up Assistance-helper sets up or cleans up; patient completes activity. Chauncey assists only prior to or following the activity. 4-Supervision or Touching Assistance-helper provides verbal cues and/or touching/steadying and/or contact guard assistance as patient completes activity. Assistance may be provided throughout the activity or intermittently. 3-Partial/Moderate Assistance-helper does LESS THAN HALF the effort. Chauncey lifts, holds or supports trunk or limbs, but provides less than half the effort. 2-Substantial/Maximal Assistance-helper does MORE THAN HALF the effort. Chauncey lifts or holds trunk or limbs and provides more than half the effort. 1-Ohctxtilw-pdtvat does ALL the effort. Patient does none of the effort to complete the activity. Or, the assistance of 2 or more helpers is required for the patient to complete the activity. If activity was not attempted, code reason: 7-Patient Refused. 9-Not Applicable-not attempted and the patient did not perform the activity before the current illness, exacerbation or injury. 10-Not Attempted due to Environmental Limitations-(lack of equipment, weather restraints, etc.). 88-Not Attempted due to Medical Conditions or Safety Concerns. Roll Left & Right (QC): 6 Sit to Lying (QC): 6 Lying to Sitting/Side of Bed(Q: 6 Sit to Stand (QC): 6 Chair/Ysi-wd-Ssjau Xfer(QC): 6 Toilet Transfer (QC): 6 Car Transfer (QC): 6 Weight Bearing Right Lower Extremity: Right Full Weight Bearing Left Lower Extremity: Left Full Weight Bearing Gait Training Does the Patient Walk?: Yes Distance: 150' x2 Walk 10 feet (QC): 6 Walk 50 ft with 2 Turns(QC): 6 Walk 150 ft (QC): 6 Walking 10ft/uneven surface-QC: 6 Gait Persons Needed: 1 Gait Assistive Device: FWW Wheelchair Training Does the Pt Use a Wheelchair?: No Stair Training Stair Training: Handrails/: 2 handrails #of Steps: 12 1 Step (curb) (QC): 6 4 Steps (QC): 6 12 Steps (QC): 6 Stairs: Pattern: Step to Balance Picking up an Object (QC): 88 Special Test Comments Pt 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 Pt also has SP & worker at home. Exercises Supine Ex: Ankle pumps, Quad Set, Glut sets, Heel Slides, Short Arc Quads, Straight leg raise, Hip abd/add Supine Reps: 15 Seated Therapy Exercises: Ankle pumps, Long arc quads, Hip flexion, Kicking activity Seated Reps: 15 NuStep Minutes: 10 NuStep Workload: 4 Treatments Pt completes QC scoring listed above. Pt uses NuStep for 10m at WL 4 and completes Supine & Seated EX. Pt returns to room at end of Rx with all needs met, call light in hand. Assessment Current Status: Good Progress Pt adamantly advises she has AE & AD at home and wants to D/C tomorrow. Pt has Sp & Worker to assist as needed. PT Oracle Brm Developer Goals Oracle Brm Developer Goals PT Group Home Goals Time Frame: Feb 07, 2020 Roll Left & Right (QC): 6 Sit to Lying (QC): 6 Lying-Sitting on Side/Bed(QC): 6 Sit to Stand (QC): 6 Chair/Fta-rq-Kevnk Xfer(QC): 6 Toilet Transfer (QC): 6 Car Transfer (QC): 6 Does the Patient Walk: Yes Walk 10 feet (QC): 6 Walk 50ft with 2 Turns (QC): 6 Walk 150 ft (QC): 6 Walking 10ft on Uneven Surface: 6 1 Step (curb) (QC): 6 4 Steps (QC): 6 12 Steps (QC): 6 Picking up an Object (QC): 6 Does the Pt use WC or Scooter?: No PT Plan Problem List Problem List: Activity Tolerance, Safety Treatment/Plan Treatment Plan: Continue Plan of Care Treatment Plan: Bed Mobility, Education, Functional Activity Nito, Functional Strength, Group Therapy, Gait, Safety, Therapeutic Exercise, Transfers Treatment Duration: Feb 07, 2020 Frequency: 6 times per week Estimated Hrs Per Day: 1.5 hours per day Patient and/or Family Agrees t: Yes Safety Risks/Education Patient Education: Gait Training, Transfer Techniques, Steps, Correct Positioning, Safety Issues Teaching Recipient: Patient Teaching Methods: Discussion Response to Teaching: Verbalize Understanding Time/GCodes Time In: 1100 Time Out: 1200 Total Billed Treatment Time: 60 Total Billed Treatment 1, GT (15m), EX x2 (30m) & FA (15m) MARIMAR WADE YACHT BUILDER Jan 28, 2020 11:46
--- NOTE | 2020-01-28 11:59 | NUR ---
Dr. QIU ORDERED IV VENOFER FOR PT
[2020-01-28] MEDS ORDERED: IRON SUCROSE 200 MG/10 ML (VENOFER) VIAL IV ONE (12:00)
--- NOTE | 2020-01-28 12:24 | Consultation - Surgery ---
History of Present Illness History of Present Illness Patient Consulted On(pérez/time) 01/28/20 12:15 Time Seen by Provider: 11:51 History of Present Illness Surgery asked to consult regarding hx of PSBO. HPI per IM: This is a 69yoWF clinic patient of Dr Knight and Dr Smith who is known to me from prior hospital stays and also who is the of a current patient of mine of many years and she comes to the appointments with him who has a h/o multiple SBO and chronic abdominal wound and COPD who continues to smoke who maintains O2 3L/min at home who presents to the IRF reluctantly but in need of strengthening and lung function stamina increase prior to discharge home. Patient has been on CLD so I spoke to Dr Richardson who supported a soft diet and advance as tolerated which is helpful to her morale because she wants a cheesburger. Patient has a catheter in place and will remove that. Bowel function seems to have returned and will focus on adequate nutrition and maintaining on chronic narcotics while preventing flare of narcotic bowel. She h ad been on vapotherm which was successfully weaned down to her normal O2 maintenance. When I spoke to pt this afternoon, she states she is having some loose BM's and passing gas. "My belly always gets big and hard when I go home". She is yakov ating diet and wants to go home. She is denying abdominal pain at this time. Pt is on adult rehab for PT/OT. Allergies and Home Medications Allergies Coded Allergies: Iodinated Contrast Media (Verified Allergy, Mild, HIVES, 12/08/19) linezolid (Verified Allergy, Mild, HIVE, 12/08/19) Home Medications Albuterol Sulfate 2.5 Mg/3 Ml Vial.neb, 2.5 MG NEB QID PRN for SHORTNESS OF BREATH, (Reported) Albuterol/Ipratropium 4 Gm Aero, 1 PUFF IH QID, (Reported) Alprazolam 1 Mg Tablet, 1 MG PO 0800,1200, (Reported) Alprazolam 1 Mg Tablet, 0.5 MG PO HS, (Reported) Aspirin 81 Mg Tablet.dr, 81 MG PO DAILY, (Reported) Atorvastatin Calcium 10 Mg Tablet, 10 MG PO HS, (Reported) Cetirizine HCl 10 Mg Tablet, 10 MG PO DAILY, (Reported) Cyanocobalamin 1,000 Mcg/Ml Inj, 1,000 MCG IM ONCE, (Reported) Cyclobenzaprine HCl 10 Mg Tablet, 10 MG PO TID PRN for MUSCLE SPASMS, (Reported) Dicyclomine HCl 10 Mg Capsule, 10 MG PO BID, (Reported) Fluticasone Propionate 9.9 Ml [place].susp, 1 SPRAY NS DAILY, (Reported) 1 SPRAY EACH NARE DAILY Fluticasone/Salmeterol 1 Each Blst.w.dev, 1 PUFF IH BID, (Reported) Furosemide 20 Mg Tablet, 20 MG PO DAILY, (Reported) Insulin Glargine,Hum.rec.anlog 100 Unit/1 Ml Insuln.pen, 10 UNIT SQ HS, (Reported) Meclizine HCl 25 Mg Tablet, 25 MG PO TID PRN for VERTIGO, (Reported) Metformin HCl 1,000 Mg Tablet, 1,000 MG PO BID WITH MEALS, (Reported) Metoclopramide HCl 10 Mg Tablet, 10 MG PO QID, (Reported) Montelukast Sodium 10 Mg Tablet, 10 MG PO HS, (Reported) Omeprazole 20 Mg Capsule.dr, 20 MG PO BID, (Reported) Oxycodone HCl 30 Mg Tablet, 30 MG PO Q6H PRN for PAIN-SEVERE (8-10), (Reported) Potassium Chloride 10 Meq Tab.er.prt, 10 MEQ PO TID, (Reported) Pregabalin 150 Mg Capsule, 150 MG PO BID, (Reported) Quetiapine Fumarate 50 Mg Tablet, 50 MG PO HS, (Reported) Ranitidine HCl 150 Mg Tablet, 150 MG PO BID, (Reported) Ranolazine 500 Mg Tab.er.12h, 500 MG PO BID, (Reported) Ropinirole HCl 1 Mg Tablet, 1 MG PO HS, (Reported) Patient Home Medication List Home Medication List Reviewed: Yes Past Wftezuz-Fnqlsb-Sxablo Hx Patient Social History Alcohol Use: Occasionally Uses Smoking Status: Current Everyday Smoker Type Used: Cigarettes 2nd Hand Smoke Exposure: Yes Recent Foreign Travel: No Contact w/Someone Who Travel: No Recent Infectious Disease Expo: No Recent Hopitalizations: Yes Immunizations Up To Date Tetanus Booster (TDap): Unknown Date of Pneumonia Vaccine: Sep 16, 2019 Date of Influenza Vaccine: Sep 15, 2019 Seasonal Allergies Seasonal Allergies: Yes Surgeries History of Surgeries: Yes (several exploratomy laparotomies, hernia with mesh) Surgeries: Appendectomy, Coronary Stent, Gallbladder, 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, Vascular Surgery Respiratory History of Respiratory Disorde: Yes (HOME 02- 3L ) Respiratory Disorders: Pneumonia, Chronic Bronchitis, COPD Cardiovascular History of Cardiac Disorders: Yes (CHF) Cardiac Disorders: Chronic Edema/Swelling, High Cholesterol, Hypertension Neurological History of Neurological Disord: Yes Neurological Disorders: Headaches /Migraines, Neuropathy 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 System Hx 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 Disorders: No 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 Genitourinary History of Genitourinary Disor: No Gastrointestinal History of Gastrointestinal Di: Yes (SEVERAL BOWEL OBSTRUCTIONS, chronic abd pain) Gastrointestinal Disorders: Obstructive Bowel, Hiatal Hernia Musculoskeletal History of Musculoskeletal Dis: Yes Musculoskeletal Disorders: Arthritis, Fibromyalgia, Chronic Back Pain Endocrine History of Endocrine Disorders: Yes Endocrine Disorders: Diabetes, Non-Insulin dep HEENT History of HEENT Disorders: Yes (GLASSES) Loss of Vision: Denies Hearing Impairment: Denies Cancer History of Cancer: No Psychosocial History of Psychiatric Problem: Yes Behavioral Health Disorders: Anxiety, Depression Integumentary History of Skin or Integumenta: Yes (CHRONIC ABDOMINAL WOUND- MRSA) Skin/Integumentary Disorders: Recent Skin Changes Blood Transfusions History of Blood Disorders: No Adverse Reaction to a Blood Tr: No (N/A) Family Medical History Significant Family History: Diabetes, Hypertension, Other Conditions/Hx Family Medial History: Colon cancer G8 BROTHER (PANCREATIC) Dementia 19 MOTHER G8 BROTHER Hypertension 19 MOTHER Myocardial infarction G8 BROTHER Review of Systems-General Constitutional: No chills, No diaphoresis; weakness EENTM: No blurred vision, No double vision, No mouth pain, No mouth swelling Respiratory: cough, dyspnea on exertion; No hemoptysis Cardiovascular: No chest pain; edema Gastrointestinal: No abdominal pain, No nausea, No vomiting Musculoskeletal: joint pain, joint swelling, muscle stiffness Psychiatric/Neurological: Anxiety, Depressed; Denies Seizure, Denies Tremors Other pt denies hx of abnormal bleeding or bruising Physical Exam-General Problems Physical Exam Vital Signs Vital Signs - First Documented 01/24/20 01/26/20 11:25 09:17 Temp 37.1 Pulse 79 Resp 18 B/P (MAP) 160/69 (99) Pulse Ox 94 O2 Delivery Nasal Cannula O2 Flow Rate 5.00 FiO2 40 Capillary Refill : Less Than 3 Seconds General Appearance: WD/WN, no apparent distress, obese Eyes: Bilateral Eye PERRL, Bilateral Eye EOMI HEENT: pharynx normal; No scleral icterus (R), No scleral icterus (L) Neck: supple, normal inspection Respiratory: no respiratory distress, no accessory muscle use, decreased breath sounds, wheezing Cardiovascular: regular rate, rhythm, no murmur Gastrointestinal: soft, no organomegaly; No guarding, No rebound; hernia Extremities: no pedal edema, no calf tenderness Neurologic/Psychiatric: 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 difficile GDH Antigen & Toxins - Final, Complete Assessment/Plan Assessment/Plan Assessment/Plan Multiple PSBO Chronic COPD, CHF At this time pt is tolerating diet and having BM's; would recommend increased fluids, stool softeners and occasional Miralax as needed. Unfortunately pt is on long-term narcotics which will slow down bowel function and increase her risk of PSBO. In addition, she does not move much which can also lead to problems with PSBO. Continue current treatment and encourage ambulation and increased fluids. Pt would be a very poor surgical candidate and surgery would be very last option. Clinical Quality Measures DVT/VTE Risk/Contraindication: Risk Factor Score Per Nursin RFS Level Per Nursing on Admit: 4+=Very High YVONNE TAYLOR DO Jan 28, 2020 12:24
--- NOTE | 2020-01-28 12:36 | NUR ---
Unable to obtain Venofer from [employer] at this time
[2020-01-28] MEDS: ENOXAPARIN 40 MG/0.4 ML (LOVENOX) SYR SC SCH (12:59)
--- NOTE | 2020-01-28 15:12 | Therapy Group Daily Note ---
Therapy Daily Group Note Patient Education Topic Other List Below (Social Distancing) Exercises LE Seated Exercise, UE Exercise Session Ratio (pt:therapist): 3:1 Goal of Session: Other (list) (Understanding and using Social Distancing appropiately) Goal Met for this Session: Yes Pt Benefit of Group: Contributions to Others, F/U Use of Strategies @Home, In creased Functional Safety, Increased Functional Strength, Improved Cognition, Recognition of Peers, Socialization Other/Notes Pt ambulated to [facility] using FWW for OT/PT group. Group consisted of introductions (name, place living, historical memory), socialization, UE/LE seated exercises and educational topic over social distancing. Pt introduced s elf appropriately and actively listened to peers. Pt able to lead one exercise and complete other exercises, 1 set 10 reps. Pt acknowledged understanding of educational topic by verbalizing own strategies and opinion. After therapy, pt sitting in recliner with call light/phone in reach. All needs met. Start Time: 13:00 Stop Time: 14:10 Total Billed Treatment Time: 70 Total Billed Treatment 1, GRP MARIMAR WADE COMMUNICATIONS EQUIPMENT INSTALLER Jan 28, 2020 15:11
--- NOTE | 2020-01-28 15:44 | NUR ---
CM/SS PATIENT CARE CONFERENCE SUMMARY Met with patient to review Summary of progress and anticipated discharge date 01/30/20. Patient has asked daily if she could go home; however, she is in agreement to continue to participate in therapies and discharge Sunday a.m. Team agreed patient was not realistic regarding her daily requests to return home, premature due to overall medical stability and safety. Proposed discharge plan is C RN and PT, patient has requested [facility] resume. Patient's spouse is home with her to assist, her HCBS services 25 hours through [place] will be restarted. There is no new DME identified, no barriers to discharge.
[2020-01-28] MEDS: TAMSULOSIN 0.4 MG (FLOMAX) CAP PO SCH (17:21)
[2020-01-28 18:33] VITALS: BP 163/82
[2020-01-28 18:37] VITALS: BP 156/74
[2020-01-28] MEDS: ADVAIR HFA 115/21 MCG INHALER 8 GM IH SCH (19:15)
[2020-01-28] MEDS: rOPINIRole 1 MG (REQUIP) TABLET PO SCH (21:57)
[2020-01-28] MEDS: QUEtiapine 100 MG (SEROquel) TAB IMMEDIATE RELEASE PO SCH (21:57)
[2020-01-29] MEDS: CATHETER FLUSH 10 ML SYR IV SCH ×3 (05:20→22:21)
[2020-01-29] MEDS: BETHANECHOL 10 MG (URECHOLINE) TAB PO SCH ×4 (05:21→22:20)
[2020-01-29] MEDS: KCL 10 MEQ TAB (MICRO K) PO SCH (05:21)
[2020-01-29 06:00] VITALS: BP 177/64
[2020-01-29] MEDS: inSUlin ASPART (NovoLOG) 1 UNIT/0.01 ML (CHARGE PER UNIT) SC SCH ×4 (06:08→22:21)
[2020-01-29 07:38] VITALS: BP 164/73
[2020-01-29] MEDS: lisINopril 10 MG (PRINIVIL) TABLET PO SCH (08:21)
[2020-01-29] MEDS: ALPRAZolam 0.5 MG (XANAX) TAB PO PRN ×2 (08:21→16:38)
[2020-01-29] MEDS: LORATADINE (CLARITIN) 10 MG TAB PO SCH (08:21)
[2020-01-29] MEDS: ASPIRIN E.C. 81 MG (ECOTRIN) TAB PO SCH (08:21)
[2020-01-29] MEDS: RANOLAZINE ER 500 MG TAB (RANEXA) PO SCH ×2 (08:21→22:20)
[2020-01-29] MEDS: LACTOBACILLUS ACIDOPHILUS (PROBIOTIC) CAPSULE PO SCH ×3 (08:21→17:28)
[2020-01-29] MEDS: SENNA W/DOCUSATE (SENOKOT S) TABLET PO SCH ×2 (08:22→21:25)
[2020-01-29] MEDS: DOCUSATE SODIUM 100 MG (COLACE) CAP PO SCH ×2 (08:22→21:25)
[2020-01-29] MEDS: RT-ALBUTEROL/IPRATROPIUM 3 ML (DUONEB) VIAL INH SCH ×4 (09:00→18:40)
[2020-01-29] MEDS: polyethylene glycoL POWDER 17 GM (MIRALAX) PACK PO SCH ×2 (09:00→21:25)
[2020-01-29] MEDS: ADVAIR HFA 115/21 MCG INHALER 8 GM IH SCH ×2 (09:01→18:40)
--- NOTE | 2020-01-29 09:02 | Physical Therapy Daily Note ---
PT Daily Note-Current Subjective Pt laying Supine in bed after finishing breakfast. Pt agrees to PT and reports "I'm leaving tomorrow". Pain Numeric Pain Scale: 8 Pain Description: Ache Comment: Pt reports generalized pain all over Mental Status Patient Orientation: Person, Confused, Place Attachments: Oxygen (3L) Transfers SCALE: Activities may be completed with or without assistive devices. 7-Odxpncatpb-lgjfeoi completes the activity by him/herself with no assistance from a helper. 5-Set-up or Clean-up Assistance-helper sets up or cleans up; patient completes activity. Manor assists only prior to or following the activity. 4-Supervision or Touching Assistance-helper provides verbal cues and/or touching/steadying and/or contact guard assistance as patient completes activity. Assistance may be provided throughout the activity or intermittently. 3-Partial/Moderate Assistance-helper does LESS THAN HALF the effort. Manor lifts, holds or supports trunk or limbs, but provides less than half the effort. 2-Substantial/Maximal Assistance-helper does MORE THAN HALF the effort. Manor lifts or holds trunk or limbs and provides more than half the effort. 4-Lddmkuasx-ttdebs does ALL the effort. Patient does none of the effort to complete the activity. Or, the assistance of 2 or more helpers is required for the patient to complete the activity. If activity was not attempted, code reason: 7-Patient Refused. 9-Not Applicable-not attempted and the patient did not perform the activity before the current illness, exacerbation or injury. 10-Not Attempted due to Environmental Limitations-(lack of equipment, weather restraints, etc.). 88-Not Attempted due to Medical Conditions or Safety Concerns. Roll Left & Right (QC): 6 Sit to Lying (QC): 6 Lying to Sitting/Side of Bed(Q: 6 Sit to Stand (QC): 6 Chair/Nly-za-Kflje Xfer(QC): 6 Toilet Transfer (QC): 6 Weight Bearing Right Lower Extremity: Right Full Weight Bearing Left Lower Extremity: Left Full Weight Bearing Gait Training Does the Patient Walk?: Yes Distance: 150', 200' Walk 10 feet (QC): 6 Walk 50 ft with 2 Turns(QC): 6 Walk 150 ft (QC): 6 Gait Persons Needed: 1 Gait Assistive Device: FWW Wheelchair Training Does the Pt Use a Wheelchair?: No Exercises Seated Therapy Exercises: Ankle pumps, Long arc quads, Hip flexion, Kicking activity Seated Reps: 20 NuStep Minutes: 15 NuStep Workload: 4 Treatments Pt transfers from bed to standing. Pt uses restroom before leaving room. After receiving morning meds from Nurse, pt ambulates in hallway. Pt uses NuStep for 15m at WL 4 followed by Seated EX. Pt ambulates in hallway before returning to room at end of Rx. Pt has all needs met, call light in hand. Assessment Current Status: Good Progress Pt tolerates Rx well. Pt's pain rated does reflect how pt moves or participates in Rx. Pt always rates pain at 8 when asked. PT Migratory Game Bird Biologist Goals Migratory Game Bird Biologist Goals PT Intermediate Goals Time Frame: Feb 07, 2020 Roll Left & Right (QC): 6 Sit to Lying (QC): 6 Lying-Sitting on Side/Bed(QC): 6 Sit to Stand (QC): 6 Chair/Cls-bj-Bnvyf Xfer(QC): 6 Toilet Transfer (QC): 6 Car Transfer (QC): 6 Does the Patient Walk: Yes Walk 10 feet (QC): 6 Walk 50ft with 2 Turns (QC): 6 Walk 150 ft (QC): 6 Walking 10ft on Uneven Surface: 6 1 Step (curb) (QC): 6 4 Steps (QC): 6 12 Steps (QC): 6 Picking up an Object (QC): 6 Does the Pt use WC or Scooter?: No PT Plan Problem List Problem List: Activity Tolerance, Safety Treatment/Plan Treatment Plan: Continue Plan of Care Treatment Plan: Bed Mobility, Education, Functional Activity Nito, Functional Strength, Group Therapy, Gait, Safety, Therapeutic Exercise, Transfers Treatment Duration: Feb 07, 2020 Frequency: 6 times per week Estimated Hrs Per Day: 1.5 hours per day Patient and/or Family Agrees t: Yes Safety Risks/Education Patient Education: Gait Training, Transfer Techniques, Correct Positioning, Safety Issues Teaching Recipient: Patient Teaching Methods: Discussion Response to Teaching: Verbalize Understanding Time/GCodes Time In: 800 Time Out: 900 Total Billed Treatment Time: 60 Total Billed Treatment 1, GT (15m), FA (15m) & EX x2 (30m) MARIMAR WADE PTA Jan 29, 2020 09:02
[2020-01-29] MEDS: ONDANSETRON 4 MG/2 ML (SDV) Z0FRAN IV PRN ×3 (09:59→22:21)
--- NOTE | 2020-01-29 10:59 | Occupational Ther Daily Note ---
OT Current Status-Daily Note Subjective Pt alert, sitting EOB. Pt agrees to therapy. No c/o pain. Mental Status/Objective Patient Orientation: Person, Place, Time, Situation Attachments: IV (PICC) ADL-Treatment Pt agrees to shower. Pt transports clothing using FWW into bathroom. Pt completed shower using shower bench, grabbar and handheld shower with mod I. Pt transferred into/out of shower mod I using FWW and grabbars. Pt stood at sink to complete oral care and grooming. Transferred to toilet with mod I using FWW and grabbars. Completed own toileting hygiene and clothing manipulation, mod I using FWW and grabbars. Pt has demonstrated ability to complete own meal set up and using regular utensils to eat. Therapy Code Descriptions/Definitions Functional [place] Measure: 0=Not Assessed/NA 4=Minimal Assistance 1=Total Assistance 5=Supervision or Setup 2=Maximal Assistance 6=Modified [place] 3=Moderate Assistance 7=Complete IndependenceSCALE: Activities may be completed with or without assistive devices. 4-Sfjrihcpea-jijqhlq completes the activity by him/herself with no assistance from a helper. 5-Set-up or Clean-up Assistance-helper sets up or cleans up; patient completes activity. Parrish assists only prior to or following the activity. 4-Supervision or Touching Assistance-helper provides verbal cues and/or touching/steadying and/or contact guard assistance as patient completes activity. Assistance may be provided throughout the activity or intermittently. 3-Partial/Moderate Assistance-helper does LESS THAN HALF the effort. Parrish lifts, holds or supports trunk or limbs, but provides less than half the effort. 2-Substantial/Maximal Assistance-helper does MORE THAN HALF the effort. Parrish lifts or holds trunk or limbs and provides more than half the effort. 1-Pnsrapfbe-oslthn does ALL the effort. Patient does none of the effort to complete the activity. Or, the assistance of 2 or more helpers is required for the patient to complete the activity. If activity was not attempted, code reason: 7-Patient Refused. 9-Not Applicable-not attempted and the patient did not perform the activity before the current illness, exacerbation or injury. 10-Not Attempted due to Environmental Limitations-(lack of equipment, weather restraints, etc.). 88-Not Attempted due to Medical Conditions or Safety Concerns. Eating (QC): 6 Shower/Bathe Self (QC): 6 Upper Body Dressing (QC): 6 Lower Body Dressing (QC): 6 On/Off Footwear: 6 Toileting Hygiene (QC): 6 Toilet Transfer (QC): 6 Other Treatment Pt given light resistance theraband for UE exercises. Pt educated on 3 exercises to increase strength for daily functional tasks. Skilled instruction given with verbal and physical cues. After session, pt sitting in recliner with call light/phone in reach. All needs met in room. OT Penitentiary Goals Distribution Superintendent Goals Time Frame: Feb 09, 2020 Eating (QC): 6 (met) Oral Hygiene (QC): 6 (met) Toileting Hygiene (QC): 6 (met) Shower/Bathe Self (QC): 5 (met) Upper Body Dressing (QC): 6 (met) Lower Body Dressing (QC): 6 (met) On/Off Footwear (QC): 6 (met) Additional Goals: 1-Demonstrate ADL Tasks, 2-Verbalize Understanding, 3- ImproveStrength/Nito 1=Demonstrate adherence to instructed precautions during ADL tasks. 2=Patient will verbalize/demonstrate understanding of assistive devices/modifications for ADL. 3=Patient will improve strength/tolerance for activity to enable patient to perform ADL's. OT Education/Plan Discharge Recommendations Plan/Recommendations: Continue POC Treatment Plan/Plan of Care Patient would benefit from OT for education, treatment and training to promote independence in ADL's, mobility, safety and/or upper extremity function for ADL's. Plan of Care: ADL Retraining, Functional Mobility, Group Exercise/Act as Ind, UE Funct Exercise/Act Treatment Duration: Feb 09, 2020 Frequency: At least 5 of 7 days/Wk (IRF) Estimated Hrs Per Day: 1.5 hours per day Agreement: Yes Rehab Potential: Good Time/GCodes Start Time: 10:00 Stop Time: 11:00 Total Time Billed (hr/min): 60 Billed Treatment Time 1 visit-ADL 3 (50 min) EX 1 (10 min) AYAKA ROGEL Jan 29, 2020 10:58
--- NOTE | 2020-01-29 11:39 | Progress Note - Urology ---
Progress Note-Urology Progress Notes/Assess & Plan Progress/Assessment & Plan VOIDING WELL. EMPTIES. NO LEAKAGE. KEEP ON MEDS FOR NOW Final Diagnosis URINE RETENTION BRITTNEY PEDRAZA MD Jan 29, 2020 11:39
--- NOTE | 2020-01-29 11:58 | Physical Therapy Daily Note ---
PT Daily Note-Current Subjective Pt agreeable to PT. Pt reports she does not use a walker at home and wants to try without today. Transfers SCALE: Activities may be completed with or without assistive devices. 0-Rjzheilhgm-aghqqlm completes the activity by him/herself with no assistance from a helper. 5-Set-up or Clean-up Assistance-helper sets up or cleans up; patient completes activity. [place] assists only prior to or following the activity. 4-Supervision or Touching Assistance-helper provides verbal cues and/or touching/steadying and/or contact guard assistance as patient completes activity. Assistance may be provided throughout the activity or intermittently. 3-Partial/Moderate Assistance-helper does LESS THAN HALF the effort. [place] lifts, holds or supports trunk or limbs, but provides less than half the effort. 2-Substantial/Maximal Assistance-helper does MORE THAN HALF the effort. [place] lifts or holds trunk or limbs and provides more than half the effort. 8-Xplavceuc-kdnykr does ALL the effort. Patient does none of the effort to complete the activity. Or, the assistance of 2 or more helpers is required for the patient to complete the activity. If activity was not attempted, code reason: 7-Patient Refused. 9-Not Applicable-not attempted and the patient did not perform the activity before the current illness, exacerbation or injury. 10-Not Attempted due to Environmental Limitations-(lack of equipment, weather restraints, etc.). 88-Not Attempted due to Medical Conditions or Safety Concerns. Weight Bearing Right Lower Extremity: Right Full Weight Bearing Left Lower Extremity: Left Full Weight Bearing Stair Training 12 Steps (QC): 6 Treatments Functional gait training without AD to focus on safety, gait pattern and oxygen tubing management. SBA provided for gait 200 ft x 3 reps with skilled cues for safety. Up/ down steps with set up assist for safety. Educated pt on safety with and without use of walker. Encouraged pt to continue to use walker at this time and as she follows with [facility] PT she can work on indep gait. Reviewed importance of HEP for LE strength. Assessment Current Status: Good Progress Steady with gait without AD, but recommend continued walker use until further gait training without it. Pt to have [facility] PT to follow. PT Custodial Goals Interventional Neuroradiologist Goals PT Custodial Goals Time Frame: Feb 07, 2020 Roll Left & Right (QC): 6 Sit to Lying (QC): 6 Lying-Sitting on Side/Bed(QC): 6 Sit to Stand (QC): 6 Chair/Mjr-gh-Hvnmh Xfer(QC): 6 Toilet Transfer (QC): 6 Car Transfer (QC): 6 Does the Patient Walk: Yes Walk 10 feet (QC): 6 Walk 50ft with 2 Turns (QC): 6 Walk 150 ft (QC): 6 Walking 10ft on Uneven Surface: 6 1 Step (curb) (QC): 6 4 Steps (QC): 6 12 Steps (QC): 6 Picking up an Object (QC): 6 Does the Pt use WC or Scooter?: No PT Plan Problem List Problem List: Activity Tolerance, Functional Strength, Safety, Gait Treatment/Plan Treatment Plan: Continue Plan of Care Treatment Plan: Bed Mobility, Education, Functional Activity Nito, Functional Strength, Group Therapy, Gait, Safety, Therapeutic Exercise, Transfers Treatment Duration: Feb 07, 2020 Frequency: 6 times per week Estimated Hrs Per Day: 1.5 hours per day Patient and/or Family Agrees t: Yes Safety Risks/Education Patient Education: Gait Training, Safety Issues Teaching Recipient: Patient Teaching Methods: Demonstration, Discussion Response to Teaching: Return Demonstration Discharge Recommendations Therapy Discharge Recommendati: Post Acute PT ([facility] PT) Time/GCodes Time In: 1115 Time Out: 1145 Total Billed Treatment Time: 30 Total Billed Treatment visit GT 30 AYAKA POWELL PT Jan 29, 2020 11:58
[2020-01-29] MEDS: ENOXAPARIN 40 MG/0.4 ML (LOVENOX) SYR SC SCH (12:13)
--- NOTE | 2020-01-29 12:54 | PM&R Progress Note ---
Subjective HPI/CC On Admission Date Seen by Provider: Jan 29, 2020 Time Seen by Provider: 09:00 Subjective/Events-last exam Nausea periodically but that is chronic, zofran will be Rxed at DC Eating better Sunday DC planned Claritin 10mg daily is doing well Will continue Urecholine and Flomax for a time at DC Probiotic is ordered Checked meds and labs Conferred with RN Reviewed therapy notes Review of Systems Pulmonary: Dyspnea Objective Exam Vital Signs Vital Signs Date Time Temp Pulse Resp B/P (MAP) Pulse Ox O2 Delivery O2 Flow Rate FiO2 01/30/20 05:09 36.4 67 16 156/74 (101) 93 Nasal Cannula 2.00 01/29/20 14:27 28 Capillary Refill : Less Than 3 Seconds General Appearance: No Apparent Distress, WD/WN, Anxious, Chronically ill, Other (pale, frail) HEENT: PERRL/EOMI, Normal ENT Inspection, Pharynx Normal Neck: Full Range of Motion, Normal Inspection, Non Tender, Supple, Carotid Bruit Respiratory: Chest Non Tender, Normal Breath Sounds, No Accessory Muscle Use, No Respiratory Distress, Decreased Breath Sounds Cardiovascular: Regular Rate, Rhythm, No Edema, No Gallop, No JVD, No Murmur, Normal Peripheral Pulses Gastrointestinal: Normal Bowel Sounds, No Organomegaly, No Pulsatile Mass, Non Tender, Soft Back: Normal Inspection, No CVA Tenderness, No Vertebral Tenderness Extremity: Normal Capillary Refill, Normal Inspection, Normal Range of Motion, Non Tender, No Calf Tenderness, No Pedal Edema Neurologic/Psychiatric: Alert, Oriented x3, No Motor/Sensory Deficits, Normal Mood/Affect, 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 FIM Transfers Therapy Code Descriptions/Definitions Functional [place] Measure: 0=Not Assessed/NA 4=Minimal Assistance 1=Total Assistance 5=Supervision or Setup 2=Maximal Assistance 6=Modified [place] 3=Moderate Assistance 7=Complete IndependenceSCALE: Activities may be completed with or without assistive devices. 0-Qwfirscyvw-mxrjogf completes the activity by him/herself with no assistance from a helper. 5-Set-up or Clean-up Assistance-helper sets up or cleans up; patient completes activity. [place] assists only prior to or following the activity. 4-Supervision or Touching Assistance-helper provides verbal cues and/or touching/steadying and/or contact guard assistance as patient completes activity. Assistance may be provided throughout the activity or intermittently. 3-Partial/Moderate Assistance-helper does LESS THAN HALF the effort. [place] lifts, holds or supports trunk or limbs, but provides less than half the effort. 2-Substantial/Maximal Assistance-helper does MORE THAN HALF the effort. [place] lifts or holds trunk or limbs and provides more than half the effort. 5-Afuhwjnve-jsesav does ALL the effort. Patient does none of the effort to complete the activity. Or, the assistance of 2 or more helpers is required for the patient to complete the activity. If activity was not attempted, code reason: 7-Patient Refused. 9-Not Applicable-not attempted and the patient did not perform the activity before the current illness, exacerbation or injury. 10-Not Attempted due to Environmental Limitations-(lack of equipment, weather restraints, etc.). 88-Not Attempted due to Medical Conditions or Safety Concerns. Roll Left to Right (QC): 6 Sit to Lying (QC): 6 Sit to Stand (QC): 6 Chair/Iif-wb-Srdoi Xfer(QC): 6 Car Transfer (QC): 6 Gait Training Does the Patient Walk?: Yes Distance: 150', 200' Walk 10 feet (QC): 6 Walk 50 ft with 2 Turns(QC): 6 Walk 150 ft (QC): 6 Walking 10ft/uneven surface-QC: 6 Gait Persons Needed: 1 Gait Assistive Device: FWW Wheelchair Training Does the Pt Use a Wheelchair?: No Stair Training Stair Training: Handrails/: 2 handrails #of Steps: 12 1 Step (curb) (QC): 6 4 Steps (QC): 6 12 Steps (QC): 6 Stairs: Pattern: Step to Balance Picking up an Object (QC): 88 ADL-Treatment Eating (QC): 6 Oral Hygiene (QC): 5 (Pt completed oral hygiene with mouth swab after set up.) Shower/Bathe Self (QC): 6 Upper Body Dressing (QC): 6 Lower Body Dressing (QC): 6 On/Off Footwear (QC): 6 Toileting Hygiene (QC): 6 Toilet Transfer (QC): 6 Assessment/Plan Assessment and Plan Assess & Plan/Chief Complaint Assessment: COPD myopathy Recurrent SBO COPD O2 dependence Smoker heavy Anxiety Chronic pain Narcotic dependence Narcotic bowel Anemia Leukocytosis Hypoxia Urinary retention Sheth in place again after failing DC consulted Dr Puente and his help is appreciated Plan: IRF protocol Stamina building O2 Nebs Anxiety management Pain meds Bowel regimen Advanced diet Sheth cath DC, consult Dr Puente appreciated Slow increase of Urecholine dose and doing well DC Sunday (1) Myopathy (2) COPD (chronic obstructive pulmonary disease) (3) Oxygen dependent (4) Anxiety (5) Hx SBO (6) Hypertension (7) Hyperlipidemia (8) Diabetes (9) Smoker (10) Depression (11) Urinary retention (12) Sheth catheter in place (13) Chronic pain (14) Narcotic dependence (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
--- NOTE | 2020-01-29 13:34 | Physical Therapy Daily Note ---
PT Daily Note-Current Subjective Pt sitting at EOB visiting with Sp upon arrival. Pt agrees to PT but declines needing to use restroom. Mental Status Patient Orientation: Person, Place, Situation Attachments: Oxygen (3L) Transfers SCALE: Activities may be completed with or without assistive devices. 3-Wnfszvnbsr-gvrzzne completes the activity by him/herself with no assistance from a helper. 5-Set-up or Clean-up Assistance-helper sets up or cleans up; patient completes activity. [place] assists only prior to or following the activity. 4-Supervision or Touching Assistance-helper provides verbal cues and/or touching/steadying and/or contact guard assistance as patient completes activity. Assistance may be provided throughout the activity or intermittently. 3-Partial/Moderate Assistance-helper does LESS THAN HALF the effort. [place] lifts, holds or supports trunk or limbs, but provides less than half the effort. 2-Substantial/Maximal Assistance-helper does MORE THAN HALF the effort. [place] lifts or holds trunk or limbs and provides more than half the effort. 4-Vnrvjqsmu-fvgtpt does ALL the effort. Patient does none of the effort to complete the activity. Or, the assistance of 2 or more helpers is required for the patient to complete the activity. If activity was not attempted, code reason: 7-Patient Refused. 9-Not Applicable-not attempted and the patient did not perform the activity before the current illness, exacerbation or injury. 10-Not Attempted due to Environmental Limitations-(lack of equipment, weather restraints, etc.). 88-Not Attempted due to Medical Conditions or Safety Concerns. Weight Bearing Right Lower Extremity: Right Full Weight Bearing Left Lower Extremity: Left Full Weight Bearing Exercises Supine Ex: Ankle pumps, Quad Set, Glut sets, Heel Slides, Short Arc Quads, Straight leg raise, Hip abd/add Seated Therapy Exercises: Ankle pumps, Long arc quads, Hip flexion, Kicking activity, Hip abd/add, Glut set Seated Reps: 15 Treatments Pt reviewed written HEP with MANAGER PLAY. Pt also discussed D/C for tomorrow and what that entails. Pt resting with all needs met,call light in hand. Assessment Current Status: Good Progress Pt is motivated to stay at home and stay healthy. PT Technical Photographer Goals Custodial Goals PT Custodial Goals Time Frame: Feb 07, 2020 Roll Left & Right (QC): 6 Sit to Lying (QC): 6 Lying-Sitting on Side/Bed(QC): 6 Sit to Stand (QC): 6 Chair/Uwl-bk-Omfnm Xfer(QC): 6 Toilet Transfer (QC): 6 Car Transfer (QC): 6 Does the Patient Walk: Yes Walk 10 feet (QC): 6 Walk 50ft with 2 Turns (QC): 6 Walk 150 ft (QC): 6 Walking 10ft on Uneven Surface: 6 1 Step (curb) (QC): 6 4 Steps (QC): 6 12 Steps (QC): 6 Picking up an Object (QC): 6 Does the Pt use WC or Scooter?: No PT Plan Problem List Problem List: Activity Tolerance Treatment/Plan Treatment Plan: Continue Plan of Care Treatment Plan: Bed Mobility, Education, Functional Activity Nito, Functional Strength, Group Therapy, Gait, Safety, Therapeutic Exercise, Transfers Treatment Duration: Feb 07, 2020 Frequency: 6 times per week Estimated Hrs Per Day: 1.5 hours per day Patient and/or Family Agrees t: Yes Safety Risks/Education Patient Education: Issued Written HEP, Correct Positioning, Safety Issues Teaching Recipient: Patient, Significant Other Teaching Methods: Discussion Response to Teaching: Verbalize Understanding Time/GCodes Time In: 1300 Time Out: 1330 Total Billed Treatment Time: 30 Total Billed Treatment 1, FA x2 (30m) MARIMAR WADE PTA Jan 29, 2020 13:34
[2020-01-29 14:27] VITALS: BP 164/73
[2020-01-29] MEDS: CALCIUM CARBONATE 500 MG (TUMS) TAB.CHEW PO PRN (14:31)
--- NOTE | 2020-01-29 14:34 | NUR ---
POST VOID BLADDER SCAN DONE AND SHOWING 0MLS.
[2020-01-29] MEDS: TAMSULOSIN 0.4 MG (FLOMAX) CAP PO SCH (17:28)
[2020-01-29 18:56] VITALS: BP 167/80
[2020-01-29] MEDS ORDERED: BTH10T PO (21:22)
[2020-01-29] MEDS ORDERED: SENN-20 PO (21:22)
[2020-01-29] MEDS ORDERED: ONDA4TAB11 PO (21:22)
[2020-01-29] MEDS ORDERED: TMSL.4C PO (21:22)
[2020-01-29] MEDS ORDERED: LISI10TA2 PO (21:22)
[2020-01-29] MEDS ORDERED: OXYC15TA79 PO (21:22)
[2020-01-29] MEDS: rOPINIRole 1 MG (REQUIP) TABLET PO SCH (22:20)
[2020-01-29] MEDS: QUEtiapine 100 MG (SEROquel) TAB IMMEDIATE RELEASE PO SCH (22:20)
[2020-01-30] MEDS: ONDANSETRON 4 MG/2 ML (SDV) Z0FRAN IV PRN (03:38)
[2020-01-30 05:09] VITALS: BP 156/74
[2020-01-30] MEDS: inSUlin ASPART (NovoLOG) 1 UNIT/0.01 ML (CHARGE PER UNIT) SC SCH (05:50)
[2020-01-30] MEDS: BETHANECHOL 10 MG (URECHOLINE) TAB PO SCH (06:02)
[2020-01-30] MEDS: KCL 10 MEQ TAB (MICRO K) PO SCH (06:02)
[2020-01-30] MEDS: CATHETER FLUSH 10 ML SYR IV SCH (06:03)
--- NOTE | 2020-01-30 07:27 | D/C HH Face to Face Order ---
D/C Face to Face Orders Reconcile Patient Problems Problems Reviewed?: Yes Instructions for Patient Via [facility], Patient Instructions/FollowUp: DR Knight in 1 week Physician to follow Patient: [place] Discharge Diet for Home: No Restrictions Patient Problems: s/p PNA Recurrent SBO COPD O2 dependence Smoker Goals for Patient: [place] Patient Data-Allergies,Ht & Wt Patient Allergies: Coded Allergies: Iodinated Contrast Media (Verified Allergy, Mild, HIVES, 12/08/19) linezolid (Verified Allergy, Mild, HIVE, 12/08/19) Height (Feet): 5 Height (Inches): 1.00 Weight (Pounds): 162 Weight (Ounces): 0.0 Home Health Need/Face to Face Date of Face to Face: Jan 30, 2020 Clinical Findings: Generalized weakness and fatigue, Instability, Muscle weakness, Shortness of breath, Unsteady gait I have seen Pt tjti-bi-lqeg: Yes Discharged To: Home Diagnosis/Conditions: s/p PNA Recurrent SBO COPD O2 dependence Smoker Patient is Homebound due to: CognItive deficits, Shortness of breath/distress Homebound Status Due to the above stated illness, injury or surgical procedure (medical condition or diagnosis) and associated clinical findings, the patient is homebound because of his/her inability to leave home except with aid of a supportive device and/or person AND leaving the home requires a considerable and taxing effort or is medically contraindicated. Pt req the following assistanc: Walker Home Health Nursing Orders Home Health Services Order: Nursing Services, Art Department Head-Evaluate & Treat, Physical Therapy-Evaluate & Treat Certify Stmt I certify that this patient is under my care and that I, a nurse practitioner or a physician; a optometric assistant working with me, had a face to face encounter that - meets the physician face to face encounter requirements with this patient as dated. RANDAL QIU DO Jan 30, 2020 07:27
[2020-01-30] MEDS: ADVAIR HFA 115/21 MCG INHALER 8 GM IH SCH (07:43)
[2020-01-30] MEDS: RT-ALBUTEROL/IPRATROPIUM 3 ML (DUONEB) VIAL INH SCH ×2 (07:43→12:43)
[2020-01-30] MEDS ORDERED: IRON SUCROSE 200 MG/10 ML (VENOFER) VIAL IV SCH (09:00)
[2020-01-30] MEDS: lisINopril 10 MG (PRINIVIL) TABLET PO SCH (09:08)
[2020-01-30] MEDS: LORATADINE (CLARITIN) 10 MG TAB PO SCH (09:08)
[2020-01-30] MEDS: RANOLAZINE ER 500 MG TAB (RANEXA) PO SCH (09:08)
[2020-01-30] MEDS: LACTOBACILLUS ACIDOPHILUS (PROBIOTIC) CAPSULE PO SCH (09:09)
[2020-01-30] MEDS: DOCUSATE SODIUM 100 MG (COLACE) CAP PO SCH (09:09)
[2020-01-30] MEDS: polyethylene glycoL POWDER 17 GM (MIRALAX) PACK PO SCH (09:09)
[2020-01-30] MEDS: ASPIRIN E.C. 81 MG (ECOTRIN) TAB PO SCH (09:09)
[2020-01-30] MEDS: SENNA W/DOCUSATE (SENOKOT S) TABLET PO SCH (09:09)
--- NOTE | 2020-01-30 09:12 | Progress Note - Urology ---
Progress Note-Urology Progress Notes/Assess & Plan Progress/Assessment & Plan VOIDING WELL. PVR 0. OK TO DISCHARGE [place]. REC. STAY ON URECHOLINE 10 BID AC AND FLOMAX DAILY AND SEE ME IN 4 WEEKS Final Diagnosis URINE RETENTION (RESOLVED) BRITTNEY PEDRAZA MD Jan 30, 2020 09:12
--- NOTE | 2020-01-30 10:19 | Therapy Team Discharge Summary ---
Therapy Discharge Summary Discharge Recommendations Date of Discharge 01/30/2020 Therapy D/C Recommendations: Physical Therapy Home Care Physical Therapy This patient admitted to ARU post acute hospital stay for COPD myopathy. Her PLOF was living at home with her spouse and a caregiver at an [facility] level. Upon admission to ARU, pt was CGA with transfers and gait up to 150 ft; she was able to go up/down steps with CGA. Treatment has focused on functional strength, balance, gait, safety, O2 management and activity tolerance. At last date of therapy,pt was mod indep with bed mobility, transfers and gait; in addition, she was able to go up/down 12 steps. Pt has made good gains and has achieved all goals at this level. Recommend pt to follow with [facility] PT to continue functional strength and safety. DC from [facility] this date. Occupational Therapy Decreased Activ Tolerance, Decreased UE Strength, Impaired Self-Care Skills PT Civil Engineering Manager Goals Retirement Goals PT Retirement Goals Time Frame: Feb 07, 2020 Roll Left to Right (QC): 6 Sit to Lying (QC): 6 Lying-Sitting on Side/Bed(QC): 6 Sit to Stand (QC): 6 Chair/Efj-ho-Bxvyu Xfer(QC): 6 Car Transfer (QC): 6 Does the Patient Walk: Yes Walk 10 feet (QC): 6 Walk 10ft-Uneven Surface(QC): 6 Walk 50ft with 2 Turns (QC): 6 Walk 150 ft (QC): 6 Does the Pt use WC or Scooter?: No 1 Step (curb) (QC): 6 4 Steps (QC): 6 12 Steps (QC): 6 Picking up an Object (QC): 6 All PT goals met at this time. OT Civil Engineering Manager Goals Retirement Goals Time Frame: Feb 09, 2020 Eating (FIM): 6 Eating (QC): 6 (met) Oral Hygiene (QC): 6 (met) Shower/Bathe Self (QC): 5 (met) Upper Body Dressing (QC): 6 (met) Lower Body Dressing (QC): 6 (met) On/Off Footwear (QC): 6 (met) Toileting(FIM): 6 Toileting Hygiene (QC): 6 (met) Toilet/Commode Transfer (QC): 6 Additional Goals: 1-Demonstrate ADL Tasks, 2-Verbalize Understanding, 3- ImproveStrength/Nito 1=Demonstrate adherence to instructed precautions during ADL tasks. 2=Patient will verbalize/demonstrate understanding of assistive devices/modifica tions for ADL. 3=Patient will improve strength/tolerance for activity to enable patient to perform ADL's. AYKAA POWELL PT Jan 30, 2020 10:19
[2020-01-30] MEDS ORDERED: BTH10T PO (10:44)
--- NOTE | 2020-01-30 11:29 | Discharge Summary ---
Diagnosis/Chief Complaint Date of Admission Jan 24, 2020 at 11:12 Date of Discharge Discharge Date: Jan 30, 2020 Discharge Diagnosis Assessment: COPD myopathy Recurrent SBO COPD O2 dependence Smoker heavy Anxiety Chronic pain Narcotic dependence Narcotic bowel Anemia Leukocytosis Hypoxia Urinary retention Sheth in place again after failing DC consulted Dr Puente and his help is appreciated Plan: IRF protocol [employer] building O2 Nebs Anxiety management Pain meds Bowel regimen Advanced diet Sheth cath DC, consult Dr Puente appreciated Slow increase of Urecholine dose and doing well DC Sunday (1) Myopathy (2) COPD (chronic obstructive pulmonary disease) (3) Oxygen dependent (4) Anxiety (5) Hx SBO (6) Hypertension (7) Hyperlipidemia (8) Diabetes (9) Smoker (10) Depression (11) Urinary retention (12) Sheth catheter in place (13) Chronic pain (14) Narcotic dependence (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 (16) Leukocytosis (17) Anemia Discharge Summary Discharge Physical Examination Allergies: Coded Allergies: Iodinated Contrast Media (Verified Allergy, Mild, HIVES, 12/08/19) linezolid (Verified Allergy, Mild, HIVE, 12/08/19) Vitals & I&Os Vital Signs Date Time Temp Pulse Resp B/P (MAP) Pulse Ox O2 Delivery O2 Flow Rate FiO2 01/30/20 11:30 36.4 67 16 136/74 90 Nasal Cannula 2.00 01/29/20 14:27 28 General Appearance: Alert, Oriented X3, Cooperative Respiratory: Clear to Auscultation Cardiovascular: Regular Rate Neuro: Normal Gait, Normal Speech, Strength at 5/5 X4 Ext Psych/Mental Status: Mental Status NL Hospital Course Was the Problem List Reviewed?: Yes Hospital course: Patient had an uneventful hospital course for 7 days after she was moved from [facility] after small bowel obstruction and pneumonia with exacerbation of COPD. Patient was restarted on all of her home medication although lower dose of narcotics since she had recently had a narcotic overdose nonpurposeful. Patient completed Zosyn antibiotics urinary retention ultimately resolved with urology expertise consultation and patient was maintained on her home oxygen and overall was able to participate in all therapies appear to be much improved at time of discharge reluctantly agreed for home health and arrangements were made for her discharge in improved condition. Labs (last 24 hrs) Laboratory Tests 01/24/20 15:46: Glucometer 173H 01/24/20 20:22: Glucometer 219H 01/25/20 05:30: White Blood Count 8.7, Red Blood Count 2.93L, Hemoglobin 8.0L, Hematocrit 26L, Mean Corpuscular Volume 90, Mean Corpuscular Hemoglobin 27, Mean Corpuscular Hemoglobin Concent 30L, Red Cell Distribution Width 14.0, Platelet Count 224, Mean Platelet Volume 10.5H, Neutrophils (%) (Auto) 67, Lymphocytes (%) (Auto) 20, Monocytes (%) (Auto) 9, Eosinophils (%) (Auto) 4, Basophils (%) (Auto) 0, Neutrophils # (Auto) 5.8, Lymphocytes # (Auto) 1.8, Monocytes # (Auto) 0.8, Eosinophils # (Auto) 0.4H, Basophils # (Auto) 0.0, Sodium Level 139, Potassium Level 3.5L, Chloride Level 103, Carbon Dioxide Level 29, Anion Gap 7, Blood Urea Nitrogen 9, Creatinine 0.73, Estimat Glomerular Filtration Rate > 60, BUN/Creatinine Ratio 12, Glucose Level 109H, Calcium Level 7.5L, Corrected Calcium 8.5, Total Bilirubin 0.2, Aspartate Amino Transf (AST/SGOT) 8, Alanine Aminotransferase (ALT/SGPT) 6, Alkaline Phosphatase 58, Total Protein 5.1L, Albumin 2.8L 01/25/20 05:32: Glucometer 108 01/25/20 10:44: Glucometer 206H 01/25/20 13:59: Glucometer 150H 01/25/20 15:49: Glucometer 176H 01/25/20 20:57: Glucometer 177H 01/26/20 05:30: White Blood Count 7.3, Red Blood Count 3.08L, Hemoglobin 8.4L, Hematocrit 27L, Mean Corpuscular Volume 88, Mean Corpuscular Hemoglobin 27, Mean Corpuscular Hemoglobin Concent 31L, Red Cell Distribution Width 13.5, Platelet Count 228, Mean Platelet Volume 10.4, Neutrophils (%) (Auto) 70, Lymphocytes (%) (Auto) 18, Monocytes (%) (Auto) 9, Eosinophils (%) (Auto) 3, Basophils (%) (Auto) 0, Neutrophils # (Auto) 5.1, Lymphocytes # (Auto) 1.3, Monocytes # (Auto) 0.6, Eosinophils # (Auto) 0.2, Basophils # (Auto) 0.0, Sodium Level 140, Potassium Level 4.2, Chloride Level 104, Carbon Dioxide Level 28, Anion Gap 8, Blood Urea Nitrogen 7, Creatinine 0.76, Estimat Glomerular Filtration Rate > 60, BUN/Creatinine Ratio 9, Glucose Level 150H, Calcium Level 8.3L, Corrected Calcium 9.2, Total Bilirubin 0.2, Aspartate Amino Transf (AST/SGOT) 7, Alanine Aminotransferase (ALT/SGPT) < 6, Alkaline Phosphatase 59, Total Protein 5.3L, Albumin 2.9L 01/26/20 05:33: Glucometer 162H 01/26/20 10:52: Glucometer 155H 01/26/20 11:09: Iron Level 16L 01/26/20 16:02: Glucometer 140H 01/26/20 20:04: Glucometer 214H 01/27/20 05:58: Glucometer 181H 01/27/20 11:00: Glucometer 185H 01/27/20 15:20: Glucometer 163H 01/27/20 20:08: Glucometer 205H 01/28/20 04:57: Glucometer 155H 01/28/20 10:47: Glucometer 167H 01/28/20 15:38: Glucometer 219H 01/28/20 21:00: Glucometer 200H 01/29/20 05:39: Glucometer 132H 01/29/20 10:52: Glucometer 189H 01/29/20 16:01: Glucometer 163H 01/29/20 21:11: Glucometer 267H 01/30/20 05:48: Glucometer 138H 01/30/20 10:53: Glucometer 206H Microbiology 01/25/20 C. difficile GDH Antigen & Toxins - Final, Complete Pending Labs Microbiology Date/Time Source Procedure Growth Status 01/25/20 14:49 Stool C. difficile GDH Antigen & Toxins - Final Complete Laboratory Tests 01/24/20 15:46: Glucometer 173 01/24/20 20:22: Glucometer 219 01/25/20 05:30: White Blood Count 8.7, Red Blood Count 2.93, Hemoglobin 8.0, Hematocrit 26, Mean Corpuscular Volume 90, Mean Corpuscular Hemoglobin 27, Mean Corpuscular Hemoglobin Concent 30, Red Cell Distribution Width 14.0, Platelet Count 224, Mean Platelet Volume 10.5, Neutrophils (%) (Auto) 67, Lymphocytes (%) (Auto) 20, Monocytes (%) (Auto) 9, Eosinophils (%) (Auto) 4, Basophils (%) (Auto) 0, Neut rophils # (Auto) 5.8, Lymphocytes # (Auto) 1.8, Monocytes # (Auto) 0.8, Eosinophils # (Auto) 0.4, Basophils # (Auto) 0.0, Sodium Level 139, Potassium Level 3.5, Chloride Level 103, Carbon Dioxide Level 29, Anion Gap 7, Blood Urea Nitrogen 9, Creatinine 0.73, Estimat Glomerular Filtration Rate > 60, BUN/Creatinine Ratio 12, Glucose Level 109, Calcium Level 7.5, Corrected Calcium 8.5, Total Bilirubin 0.2, Aspartate Amino Transf (AST/SGOT) 8, Alanine Aminotransferase (ALT/SGPT) 6, Alkaline Phosphatase 58, Total Protein 5.1, Albumin 2.8 01/25/20 05:32: Glucometer 108 01/25/20 10:44: Glucometer 206 01/25/20 13:59: Glucometer 150 01/25/20 15:49: Glucometer 176 01/25/20 20:57: Glucometer 177 01/26/20 05:30: White Blood Count 7.3, Red Blood Count 3.08, Hemoglobin 8.4, Hematocrit 27, Mean Corpuscular Volume 88, Mean Corpuscular Hemoglobin 27, Mean Corpuscular Hemoglobin Concent 31, Red Cell Distribution Width 13.5, Platelet Count 228, Mean Platelet Volume 10.4, Neutrophils (%) (Auto) 70, Lymphocytes (%) (Auto) 18, Monocytes (%) (Auto) 9, Eosinophils (%) (Auto) 3, Basophils (%) (Auto) 0, Neutrophils # (Auto) 5.1, Lymphocytes # (Auto) 1.3, Monocytes # (Auto) 0.6, Eosinophils # (Auto) 0.2, Basophils # (Auto) 0.0, Sodium Level 140, Potassium Level 4.2, Chloride Level 104, Carbon Dioxide Level 28, Anion Gap 8, Blood Urea Nitrogen 7, Creatinine 0.76, Estimat Glomerular Filtration Rate > 60, BUN/Creatinine Ratio 9, Glucose Level 150, Calcium Level 8.3, Corrected Calcium 9.2, Total Bilirubin 0.2, Aspartate Amino Transf (AST/SGOT) 7, Alanine Aminotransferase (ALT/SGPT) < 6, Alkaline Phosphatase 59, Total Protein 5.3, Albumin 2.9 01/26/20 05:33: Glucometer 162 01/26/20 10:52: Glucometer 155 01/26/20 11:09: Iron Level 16 01/26/20 16:02: Glucometer 140 01/26/20 20:04: Glucometer 214 01/27/20 05:58: Glucometer 181 01/27/20 11:00: Glucometer 185 01/27/20 15:20: Glucometer 163 01/27/20 20:08: Glucometer 205 01/28/20 04:57: Glucometer 155 01/28/20 10:47: Glucometer 167 01/28/20 15:38: Glucometer 219 01/28/20 21:00: Glucometer 200 01/29/20 05:39: Glucometer 132 01/29/20 10:52: Glucometer 189 01/29/20 16:01: Glucometer 163 01/29/20 21:11: Glucometer 267 01/30/20 05:48: Glucometer 138 01/30/20 10:53: Glucometer 206 Discharge Home Medications: Active Scripts Active Urecholine (Bethanechol Chloride) 10 Mg Tablet 10 Mg PO BID Oxycodone HCl 15 Mg Tablet 15 Mg PO Q6H 7 Days Ondansetron Odt (Ondansetron) 4 Mg Tab.rapdis 4 Mg PO Q6H PRN Senna-Time S Tablet (Sennosides/Docusate Sodium) 1 Each Tablet 1 Ea PO BID Lisinopril 10 Mg Tablet 10 Mg PO DAILY Flomax (Tamsulosin HCl) 0.4 Mg Cap 0.4 Mg PO DAILY@1800 Reported Flonase Allergy Relief (Fluticasone Propionate) 9.9 Ml Bryson.susp 1 Bryson NS DAILY 1 SPRAY EACH NARE DAILY Cetirizine HCl 10 Mg Tablet 10 Mg PO DAILY Aspirin EC (Aspirin) 81 Mg Tablet.dr 81 Mg PO DAILY Acid Independent Driver (RANITIDINE) (Ranitidine HCl) 150 Mg Tablet 150 Mg PO BID Dicyclomine HCl 10 Mg Capsule 10 Mg PO BID Meclizine HCl 25 Mg Tablet 25 Mg PO TID PRN Metoclopramide HCl 10 Mg Tablet 10 Mg PO QID Alprazolam 1 Mg Tablet 0.5 Mg PO HS Alprazolam 1 Mg Tablet 1 Mg PO 0800,1200 Metformin HCl 1,000 Mg Tablet 1,000 Mg PO BID WITH MEALS Ranolazine ER (Ranolazine) 500 Mg Tab.er.12h 500 Mg PO BID Albuterol Sulfate 2.5 Mg/3 Ml Vial.neb 2.5 Mg NEB QID PRN Cyanocobalamin Injection (Cyanocobalamin) 1,000 Mcg/Ml Inj 1,000 Mcg IM ONCE 30 Days Lantus Solostar (Insulin Glargine,Hum.rec.anlog) 100 Unit/1 Ml Insuln.pen 10 Unit SQ HS Oxycodone HCl 30 Mg Tablet 30 Mg PO Q6H PRN Lyrica (Pregabalin) 150 Mg Capsule 150 Mg PO BID Furosemide 20 Mg Tablet 20 Mg PO DAILY Ropinirole HCl 1 Mg Tablet 1 Mg PO HS Advair 250-50 Diskus (Fluticasone/Salmeterol) 1 Each Blst.w.dev 1 Puff IH BID Combivent Respimat Inhal Bryson (Albuterol/Ipratropium) 4 Gm Aero 1 Puff IH QID Omeprazole 20 Mg Capsule.dr 20 Mg PO BID Montelukast Sodium 10 Mg Tablet 10 Mg PO HS Atorvastatin Calcium 10 Mg Tablet 10 Mg PO HS Klor-Con M10 (Potassium Chloride) 10 Meq Tab.er.prt 10 Meq PO TID Cyclobenzaprine HCl 10 Mg Tablet 10 Mg PO TID PRN Quetiapine Fumarate 50 Mg Tablet 50 Mg PO HS Instructions to patient/family Please see electronic discharge instructions given to patient. 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
[2020-01-30 11:30] VITALS: BP 136/74
--- NOTE | 2020-01-30 13:04 | NUR ---
CM/SS DISCHARGE Patient discharged home with her spouse, Aaron. IMM2 presented, signed, charted. Patient, as noted, has requested discharge daily, is dressed to leave, has no intention to appeal. HHC: Medicare Compare was presented, HHC set up with patient historical and preferred agency, [facility] for RN, PT, OT. DME: No new DME needs. Spouse brought portable O2 for transport home. Unit RN updated of arrangements.
--- NOTE | 2020-02-02 15:29 | Therapy Team Discharge Summary ---
Therapy Discharge Summary Discharge Recommendations Date of Discharge Jan 30, 2020 at 11:30 Therapy D/C Recommendations: Physical Therapy Home Care Occupational Therapy Pt admits to ARU with COPD/ SOB. Pt's admitting QCs: showering 4, UB dress5, LB dress 4, footwear 4. Pt and OT work towards higher functional IND through UE exercise, safety training, use of AE, and ADL training. Pt reaches all LTGs, d/c home with spouse. D/c OT at this time Decreased Activ Tolerance, Decreased UE Strength, Impaired Self-Care Skills PT Intermediate Goals Intermediate Goals PT Intermediate Goals Time Frame: Feb 07, 2020 Roll Left to Right (QC): 6 Sit to Lying (QC): 6 Lying-Sitting on Side/Bed(QC): 6 Sit to Stand (QC): 6 Chair/Dfo-ut-Xvzmf Xfer(QC): 6 Car Transfer (QC): 6 Does the Patient Walk: Yes Walk 10 feet (QC): 6 Walk 10ft-Uneven Surface(QC): 6 Walk 50ft with 2 Turns (QC): 6 Walk 150 ft (QC): 6 Does the Pt use WC or Scooter?: No 1 Step (curb) (QC): 6 4 Steps (QC): 6 12 Steps (QC): 6 Picking up an Object (QC): 6 OT Intermediate Goals Intermediate Goals Time Frame: Feb 09, 2020 Eating (FIM): 6 Eating (QC): 6 (met) Oral Hygiene (QC): 6 (met) Shower/Bathe Self (QC): 5 (met) Upper Body Dressing (QC): 6 (met) Lower Body Dressing (QC): 6 (met) On/Off Footwear (QC): 6 (met) Toileting(FIM): 6 Toileting Hygiene (QC): 6 (met) Toilet/Commode Transfer (QC): 6 Additional Goals: 1-Demonstrate ADL Tasks, 2-Verbalize Understanding, 3- ImproveStrength/Nito 1=Demonstrate adherence to instructed precautions during ADL tasks. 2=Patient will verbalize/demonstrate understanding of assistive devices/modifications for ADL. 3=Patient will improve strength/tolerance for activity to enable patient to perform ADL's. DAVID CONWAY OTR Feb 02, 2020 15:29
== END 2020-01-30 11:30 | disposition home health service (06) | DRG 93 ==
PROVIDERS: ADMIT Internal Medicine; ATTEND Internal Medicine
DX: G72.89 Other specified myopathies (principal); J43.9 Emphysema, unspecified; F17.210 Nicotine dependence, cigarettes, uncomplicated; R09.02 Hypoxemia; E11.40 Type 2 diabetes mellitus with diabetic neuropathy, unspecified; N31.9 Neuromuscular dysfunction of bladder, unspecified; R33.9 Retention of urine, unspecified; R15.9 Full incontinence of feces; E78.5 Hyperlipidemia, unspecified; I10 Essential (primary) hypertension; F41.9 Anxiety disorder, unspecified; F32.9 Major depressive disorder, single episode, unspecified; M19.91 Primary osteoarthritis, unspecified site; M79.7 Fibromyalgia; Z99.81 Dependence on supplemental oxygen; Z79.4 Long term (current) use of insulin; Z79.891 Long term (current) use of opiate analgesic; Z95.5 Presence of coronary angioplasty implant and graft; Z87.01 Personal history of pneumonia (recurrent); Z90.49 Acquired absence of other specified parts of digestive tract; Z90.710 Acquired absence of both cervix and uterus
CPT/HCPCS: 36415; 80053; 82962; 83540; 85025; 87324; 87449; 94640; 94760

== ENCOUNTER 2020-02-03 12:57 | Inpatient (IN) | payer MEDICARE, MEDICAID ==
[2020-02-03] VITALS (14 sets, daily range): BP systolic 94–192; BP diastolic 39–71
[~2020-02-03] VITALS: Ht 155 cm; Wt 73.7 kg
[~2020-02-03 12:57] MED LIST changes: -ALPRAZolam 0.25 MG (XANAX) TAB PO PRN; -BISACODYL 10 MG SUPP (DULCOLAX) PR PRN; +BTH10T PO; -CALCIUM CARBONATE 500 MG (TUMS) TAB.CHEW PO PRN; -DOCUSATE SODIUM 100 MG (COLACE) CAP PO PRN; -ENOXAPARIN 40 MG/0.4 ML (LOVENOX) SYR SC SCH; -FLEET ENEMA ADULT 1 EA BTL PR PRN; -LACTULOSE SYRUP 10GM/15ML (ENULOSE) 30ML UDC PO PRN; +LISI10TA2 PO; -LOPERAMIDE 2 MG (IMODIUM) TABLET PO PRN; +ONDA4TAB11 PO; +OXYC15TA79 PO; +SENN-20 PO; +TMSL.4C PO; -diphenhydrAMINE 25 MG TAB (BENADRYL) PO PRN; -guaiFENesin/CODEINE (ROBITUSSIN AC) 10ML UDC PO PRN
[2020-02-03] MEDS ORDERED: NOREPINEPHRINE 4 MG/250 ML 250 ML IV ONE (13:11)
[2020-02-03 13:27] LABS: BASOPHILS % (AUTO) 0 % (0-10); EOSINOPHILS # (AUTO) 0.1 10^3/uL (0.0-0.3); EOSINOPHILS % (AUTO) 1 % (0-10); HEMATOCRIT 30 % (35-52); HEMOGLOBIN 9.1 G/DL (11.5-16.0); LYMPHOCYTES # (AUTO) 2.2 X 10^3 (1.0-4.0); LYMPHOCYTES % (AUTO) 12 % (12-44); MEAN CORPUSCULAR HEMOGLOBIN 27 PG (25-34); MEAN CORPUSCULAR HGB CONC 31 G/DL (32-36); MEAN CORPUSCULAR VOLUME 88 FL (80-99); MEAN PLATELET VOLUME 9.8 FL (7.4-10.4); MONOCYTES % (AUTO) 6 % (0-12); NEUTROPHILS # (AUTO) 14.7 X 10^3 (1.8-7.8); NEUTROPHILS % (AUTO) 81 % (42-75); PLATELET COUNT 336 10^3/uL (130-400); RED CELL DISTRIBUTION WIDTH 15.4 % (10.0-14.5); WHITE BLOOD COUNT 18.1 10^3/uL (4.3-11.0)
[2020-02-03 13:27] LABS: ABG BASE EXCESS -3.9 MMOL/L (-2.5-2.5); ABG PO2 41 MMHG (79-93); ABG TCO2 26.1 MMOL/L (21.0-31.0)
[2020-02-03] MEDS ORDERED: PIPERACILLIN/TAZO 4.5 GM VIAL (ZOSYN) IV ONE (13:33)
[2020-02-03] MEDS ORDERED: NS (IVPB) 100 ML ONE (13:34)
[2020-02-03] MEDS ORDERED: WATER (STERILE) FOR INJECTION 20 ML ONE (13:34)
[2020-02-03] MEDS ORDERED: VANCOMYCIN 500 MG/VIAL IV ONE (13:35)
[2020-02-03] MEDS ORDERED: NS IV 500 ML 500 ML ONE (13:35)
[2020-02-03] MEDS ORDERED: VANCOMYCIN 1000 MG/VIAL ONE (13:35)
[2020-02-03 13:45] LABS: ABG OXYGEN SATURATION 33 % (94-100); ABG PCO2 71 MMHG (35-45); ABG PH 7.15 (7.37-7.43)
[2020-02-03] MEDS ORDERED: PIPERACILLIN SODIUM/TAZOBACTAM 4.5 GM in NS (IVPB) 100 ML IV ONE (13:45)
[2020-02-03] MEDS ORDERED: NS IV 500 ML 500 ML IV SCH (13:45)
[2020-02-03] MEDS ORDERED: VANCOMYCIN INJECTION 1,500 MG in NS IV 500 ML 500 ML IV SCH (13:45)
[2020-02-03 13:46] LABS: PATIENT TEMP 36.8
[2020-02-03 13:49] LABS: BAND NEUTROPHILS 1 %; NEUTROPHILS % (MANUAL) 78 %
[2020-02-03 13:50] LABS: BASOPHILS % (MANUAL) 0 %; EOSINOPHILS % (MANUAL) 1 %; LYMPHOCYTES % (MANUAL) 14 %; MONOCYTES % (MANUAL) 6 %
--- NOTE | 2020-02-03 13:53 | NUR ---
1353 LEVOPHED LOWERED TO 0.06 MCG/KG/MIN. 1356 ETOMIDATE 20 MG 1357 ROCURONIUM 50 MG 1358 FIRST ATTEMPT TO INTUBATE, 7.5 MM TUBE, 22 AT THE GUMS, POSITIVE COLOR CHANGE, BILATERAL LUNG SOUNDS 1404 LEVOPHED RAISED TO 0.1 MCG/KG/MIN 1403 ZOSYN 4.5 MG STARTED 1417 22 G IV STARTED IN LT BREAST 1421 500 ML NS STARTED 1432 ZOSYN 4.5 MG INFUSED 1446 PROPOFOL STARTED 13.95 MLS/HR
[2020-02-03 14:02] LABS: ALANINE AMINOTRANSFERASE 10 U/L (0-55); ALBUMIN 3.5 GM/DL (3.2-4.5); ALKALINE PHOSPHATASE 71 U/L (40-136); BILIRUBIN,TOTAL 0.2 MG/DL (0.1-1.0); BUN/CREATININE RATIO 12; CALCIUM 8.1 MG/DL (8.5-10.1); CARBON DIOXIDE 21 MMOL/L (21-32); CHLORIDE 104 MMOL/L (98-107); CREATININE SERUM 4.14 MG/DL (0.60-1.30); GFR ESTIMATED 11; GLUCOSE 116 MG/DL (70-105); SODIUM 136 MMOL/L (135-145); TOTAL PROTEIN 6.4 GM/DL (6.4-8.2)
[2020-02-03 14:04] LABS: ANISOCYTOSIS SLIGHT; HYPOCHROMASIA SLIGHT
[2020-02-03] MEDS ORDERED: PROPOFOL DRIP (ICU) 100 ML IV ONE (14:06)
[2020-02-03 14:08] LABS: POTASSIUM 6.7 MMOL/L (3.6-5.0)
[2020-02-03] MEDS: PROPOFOL DRIP (ICU) 100 ML IV SCH ×3 (14:18→21:01)
[2020-02-03 14:26] LABS: BILIRUBIN,URINE NEGATIVE (NEGATIVE); CLARITY,URINE CLEAR; COLOR,URINE YELLOW; GLUCOSE, URINE (UA) NEGATIVE (NEGATIVE); KETONES,URINE NEGATIVE (NEGATIVE); LEUKOCYTE ESTERASE ,URINE NEGATIVE (NEGATIVE); NITRITE,URINE NEGATIVE (NEGATIVE); PROTEIN,URINE TRACE (NEGATIVE)
--- NOTE | 2020-02-03 14:26 | ED Respiratory ---
General Chief Complaint: Respiratory Problems Stated Complaint: SOB Source: patient, EMS Exam Limitations: clinical condition History of Present Illness Date Seen by Provider: Feb 03, 2020 Time Seen by Provider: 13:00 Initial Comments Patient present ER by EMS from home with altered mental status shortness of breath. EMS reports her sats were 80% when they arrived. She is oxygen-dependent with COPD. She is not coughing having any history of fever. Afebrile with normal blood sugar 106 per EMS. Patient also has recently discharged from rehabilitation where she was doing inpatient rehabilitation after hospitalization for a small bowel obstruction. She has a history of recurrent small bowel obstruction. Patient gives very little history however she says she is not having any pain and denies nausea or vomiting recently. Patient does not know when she last had a bowel movement. The patient is full code and no known history of COVID-19 contacts. She is insulin-dependent diabetic and uses oxycodone for pain. The patient was given a DuoNeb on route. Allergies and Home Medications Allergies Coded Allergies: Iodinated Contrast Media (Verified Allergy, Mild, HIVES, 12/08/19) linezolid (Verified Allergy, Mild, HIVE, 12/08/19) Home Medications Albuterol Sulfate 2.5 Mg/3 Ml Vial.neb, 2.5 MG NEB QID PRN for SHORTNESS OF BREATH, (Reported) Albuterol/Ipratropium 4 Gm Aero, 1 PUFF IH QID, (Reported) Alprazolam 1 Mg Tablet, 1 MG PO 0800,1200, (Reported) Alprazolam 1 Mg Tablet, 0.5 MG PO HS, (Reported) Aspirin 81 Mg Tablet.dr, 81 MG PO DAILY, (Reported) Atorvastatin Calcium 10 Mg Tablet, 10 MG PO HS, (Reported) Bethanechol Chloride 10 Mg Tablet, 10 MG PO BID Prescribed by: RANDAL QIU on 01/30/20 1044 Cetirizine HCl 10 Mg Tablet, 10 MG PO DAILY, (Reported) Cyanocobalamin 1,000 Mcg/Ml Inj, 1,000 MCG IM ONCE, (Reported) Cyclobenzaprine HCl 10 Mg Tablet, 10 MG PO TID PRN for MUSCLE SPASMS, (Reported) Dicyclomine HCl 10 Mg Capsule, 10 MG PO BID, (Reported) Fluticasone Propionate 9.9 Ml [place].susp, 1 SPRAY NS DAILY, (Reported) 1 SPRAY EACH NARE DAILY Fluticasone/Salmeterol 1 Each Blst.w.dev, 1 PUFF IH BID, (Reported) Furosemide 20 Mg Tablet, 20 MG PO DAILY, (Reported) Insulin Glargine,Hum.rec.anlog 100 Unit/1 Ml Insuln.pen, 10 UNIT SQ HS, (Reported) Lisinopril 10 Mg Tablet, 10 MG PO DAILY Prescribed by: RANDAL QIU on 01/29/202121 Meclizine HCl 25 Mg Tablet, 25 MG PO TID PRN for VERTIGO, (Reported) Metformin HCl 1,000 Mg Tablet, 1,000 MG PO BID WITH MEALS, (Reported) Metoclopramide HCl 10 Mg Tablet, 10 MG PO QID, (Reported) Montelukast Sodium 10 Mg Tablet, 10 MG PO HS, (Reported) Omeprazole 20 Mg Capsule.dr, 20 MG PO BID, (Reported) Ondansetron 4 Mg Tab.rapdis, 4 MG PO Q6H PRN for NAUSEA/VOMITING-1ST LINE Prescribed by: RANDAL QIU on 01/29/202121 Oxycodone HCl 30 Mg Tablet, 30 MG PO Q6H PRN for PAIN-SEVERE (8-10), (Reported) Oxycodone HCl 15 Mg Tablet, 15 MG PO Q6H Prescribed by: RANDAL QIU on 01/29/202121 Potassium Chloride 10 Meq Tab.er.prt, 10 MEQ PO TID, (Reported) Pregabalin 150 Mg Capsule, 150 MG PO BID, (Reported) Quetiapine Fumarate 50 Mg Tablet, 50 MG PO HS, (Reported) Ranitidine HCl 150 Mg Tablet, 150 MG PO BID, (Reported) Ranolazine 500 Mg Tab.er.12h, 500 MG PO BID, (Reported) Ropinirole HCl 1 Mg Tablet, 1 MG PO HS, (Reported) Sennosides/Docusate Sodium 1 Each Tablet, 1 EA PO BID Prescribed by: RANDAL QIU on 01/29/202121 Tamsulosin HCl 0.4 Mg Cap, 0.4 MG PO DAILY@1800 Prescribed by: RANDAL QIU on 01/29/202121 Patient Home Medication List Home Medication List Reviewed: Yes Review of Systems Review of Systems Constitutional: No chills, No diaphoresis EENTM: No ear discharge, No ear pain, No blurred vision Respiratory: No cough; short of breath, wheezing Cardiovascular: No chest pain, No syncope Gastrointestinal: No abdominal pain, No nausea Genitourinary: No discharge, No dysuria Musculoskeletal: No back pain, No joint pain Skin: No pruritus, No rash Psychiatric/Neurological: Denies Headache, Denies Numbness All Other Systems Reviewed Negative Unless Noted: Yes Past Hattpeg-Igvszl-Joparq Hx Patient Social History Alcohol Use: Denies Use Alcohol Beverage of Choice: Rum, Whiskey, [place], Vodka Recreational Drug Use: No Smoking Status: Current Everyday Smoker Type Used: Cigarettes 2nd Hand Smoke Exposure: Yes Recent Hopitalizations: Yes Immunizations Up To Date Tetanus Booster (TDap): Unknown Date of Pneumonia Vaccine: Sep 16, 2019 Date of Influenza Vaccine: Sep 15, 2019 Seasonal Allergies Seasonal Allergies: Yes Past Medical History Surgeries: Yes (several exploratomy laparotomies, hernia with mesh) Appendectomy, Coronary Stent, Gallbladder, 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, Vascular Surgery Respiratory: Yes (HOME 02- 3L ) Pneumonia, Chronic Bronchitis, COPD Currently Using CPAP: No Currently Using BIPAP: No Cardiac: Yes (CHF) Chronic Edema/Swelling, High Cholesterol, Hypertension Neurological: Yes Headaches /Migraines, Neuropathy 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 Disorders: No 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 Genitourinary: No Gastrointestinal: Yes (SEVERAL BOWEL OBSTRUCTIONS, chronic abd pain) Obstructive Bowel, Hiatal Hernia Musculoskeletal: Yes Arthritis, Fibromyalgia, Chronic Back Pain Endocrine: Yes Diabetes, Non-Insulin dep HEENT: Yes (GLASSES) Loss of Vision: Denies Hearing Impairment: Denies Cancer: No Psychosocial: Yes Anxiety, Depression Integumentary: Yes (CHRONIC ABDOMINAL WOUND- MRSA) Recent Skin Changes Blood Disorders: No Adverse Reaction/Blood Tranf: No (N/A) Family Medical History Colon cancer G8 BROTHER (PANCREATIC) Dementia 19 MOTHER G8 BROTHER Hypertension 19 MOTHER Myocardial infarction G8 BROTHER Diabetes, Hypertension, Other Conditions/Hx Physical Exam Vital Signs - First Documented 02/03/20 02/03/20 13:00 13:10 Temp 36.8 Pulse 73 Resp 9 B/P (MAP) 88/44 (59) Pulse Ox 98 O2 Delivery Nasal Cannula O2 Flow Rate 3.00 Capillary Refill : Height: 5'1.00" Weight: 162lbs. 0.0oz. 73.602495ht; 31.68 BMI Method:Stated General Appearance: WD/WN, no apparent distress Eyes: Bilateral Eye Normal Inspection, Bilateral Eye PERRL, Bilateral Eye EOMI HEENT: PERRL/EOMI, normal ENT inspection, TMs normal, other (dry oral mucosa) Neck: full range of motion, supple, normal inspection Respiratory: lungs clear, respiratory distress (on 4 L by nasal cannula with sats in the mid 90s.), decreased breath sounds Cardiovascular: normal peripheral pulses, regular rate, rhythm, no edema Gastrointestinal: normal bowel sounds, non tender, soft Extremities: normal range of motion, non-tender, slow capillary refill Neurologic/Psychiatric: alert (GCS 13), other (oriented to person and time but not place) Skin: normal color, warm/dry Focused Exam Sepsis Stage: Septic Shock Possible Source: Pulmonary Lactate Level 02/03/20 13:10: Lactic Acid Level 1.03 02/03/20 14:46: Lactic Acid Level 0.52 Time of Focused Exam: 15:22 Respiratory: Decreased Breath Sounds, Respiratory Distress (intubated) Cardiovascular: Regular Rate, Rhythm, No Edema Capillary Refill: Greater Than 3 Seconds Peripheral Pulses: 1+ Radial Pulses (R), 1+ Radial Pulses (L) Skin: warm/dry, pallor Lactic Acid Level Laboratory Tests Test 02/03/20 13:10 02/03/20 14:46 Lactic Acid Level 1.03 MMOL/L (0.50-2.00) 0.52 MMOL/L (0.50-2.00) Within 3hrs of presentation: Admin fluids, Admin ABX, Blood cultures prior to ABX's, Focus exam, Lactate level, Vasopressin therapy Progress/Results/Core Measures Suspected Sepsis SIRS Temperature: Pulse: 76 Respiratory Rate: Laboratory Tests 02/03/20 13:10: White Blood Count 18.1H Blood Pressure 112 /48 Mean: 69 02/03/20 13:10: Lactic Acid Level 1.03 02/03/20 14:46: Lactic Acid Level 0.52 Laboratory Tests 02/03/20 13:10: Creatinine 4.14H, INR Comment 1.0, Platelet Count 336, Total Bilirubin 0.2 Results/Orders Lab Results Laboratory Tests Test 02/03/20 13:10 02/03/20 13:13 02/03/20 13:30 02/03/20 13:50 Range/Units White Blood Count 18.1 H 4.3-11.0 10^3/uL Red Blood Count 3.35 L 4.35-5.85 10^6/uL Hemoglobin 9.1 L 11.5-16.0 G/DL Hematocrit 30 L 35-52 % Mean Corpuscular Volume 88 80-99 FL Mean Corpuscular Hemoglobin 27 25-34 PG Mean Corpuscular Hemoglobin Concent 31 L 32-36 G/DL Red Cell Distribution Width 15.4 H 10.0-14.5 % Platelet Count 336 130-400 10^3/uL Mean Platelet Volume 9.8 7.4-10.4 FL Neutrophils (%) (Auto) 81 H 42-75 % Lymphocytes (%) (Auto) 12 12-44 % Monocytes (%) (Auto) 6 0-12 % Eosinophils (%) (Auto) 1 0-10 % Basophils (%) (Auto) 0 0-10 % Neutrophils # (Auto) 14.7 H 1.8-7.8 X 10^3 Lymphocytes # (Auto) 2.2 1.0-4.0 X 10^3 Monocytes # (Auto) 1.0 0.0-1.0 X 10^3 Eosinophils # (Auto) 0.1 0.0-0.3 10^3/uL Basophils # (Auto) 0.0 0.0-0.1 10^3/uL Neutrophils % (Manual) 78 % Lymphocytes % (Manual) 14 % Monocytes % (Manual) 6 % Eosinophils % (Manual) 1 % Basophils % (Manual) 0 % Band Neutrophils 1 % Hypochromasia SLIGHT Anisocytosis SLIGHT Prothrombin Time 13.8 12.2-14.7 SEC INR Comment 1.0 0.8-1.4 Activated Partial Thromboplast Time 43 H 24-35 SEC Sodium Level 136 135-145 MMOL/L Potassium Level 5.7 H 3.6-5.0 MMOL/L Chloride Level 104 98-107 MMOL/L Carbon Dioxide Level 21 21-32 MMOL/L Anion Gap 11 5-14 MMOL/L Blood Urea Nitrogen 51 H 7-18 MG/DL Creatinine 4.14 H 0.60-1.30 MG/DL Estimat Glomerular Filtration Rate 11 BUN/Creatinine Ratio 12 Glucose Level 116 H 70-105 MG/DL Lactic Acid Level 1.03 0.50-2.00 MMOL/L Calcium Level 8.1 L 8.5-10.1 MG/DL Corrected Calcium 8.5 8.5-10.1 MG/DL Total Bilirubin 0.2 0.1-1.0 MG/DL Aspartate Amino Transf (AST/SGOT) 13 5-34 U/L Alanine Aminotransferase (ALT/SGPT) 10 0-55 U/L Alkaline Phosphatase 71 40-136 U/L Troponin I < 0.028 <0.028 NG/ML B-Type Natriuretic Peptide 26.7 <100.0 PG/ML Total Protein 6.4 6.4-8.2 GM/DL Albumin 3.5 3.2-4.5 GM/DL Triglycerides Level 148 <150 MG/DL Serum Alcohol < 10 <10 MG/DL Blood Gas Puncture Site UNK Blood Gas Patient Temperature 36.8 Arterial Blood pH 7.15 *L 7.37-7.43 Arterial Blood Partial Pressure CO2 71 *H 35-45 MMHG Arterial Blood Partial Pressure O2 41 L 79-93 MMHG Arterial Blood HCO3 24 23-27 MMOL/L Arterial Blood Total CO2 26.1 21.0-31.0 MMOL/L Arterial Blood Oxygen Saturation 33 L 94-100 % Arterial Blood Base Excess -3.9 L -2.5-2.5 MMOL/L Barber Test UNK Blood Gas Ventilator Setting NA Blood Gas Inspired Oxygen UNK Urine Color YELLOW Urine Clarity CLEAR Urine pH 5.0 5-9 Urine Specific Niles >=1.030 1.016-1.022 Urine Protein TRACE H NEGATIVE Urine Glucose (UA) NEGATIVE NEGATIVE Urine Ketones NEGATIVE NEGATIVE Urine Nitrite NEGATIVE NEGATIVE Urine Bilirubin NEGATIVE NEGATIVE Urine Urobilinogen 0.2 < = 1.0 MG/DL Urine Leukocyte Esterase NEGATIVE NEGATIVE Urine RBC (Auto) 1+ H NEGATIVE Urine RBC 0-2 /HPF Urine WBC NONE /HPF Urine Squamous Epithelial Cells 0-2 /HPF Urine Crystals PRESENT H /LPF Urine Amorphous Sediment MOD BERNICE URATES H /LPF Urine Bacteria TRACE /HPF Urine Casts PRESENT /LPF Urine Hyaline Casts 0-2 H /LPF Urine Mucus NEGATIVE /LPF Urine Culture Indicated NO Urine Opiates Screen POSITIVE H NEGATIVE Urine Oxycodone Screen POSITIVE H NEGATIVE Urine Methadone Screen NEGATIVE NEGATIVE Urine Propoxyphene Screen NEGATIVE NEGATIVE Urine Barbiturates Screen NEGATIVE NEGATIVE Ur Tricyclic Antidepressants Screen NEGATIVE NEGATIVE Urine Phencyclidine Screen NEGATIVE NEGATIVE Urine Amphetamines Screen NEGATIVE NEGATIVE Urine Methamphetamines Screen NEGATIVE NEGATIVE Urine Benzodiazepines Screen POSITIVE H NEGATIVE Urine Cocaine Screen NEGATIVE NEGATIVE Urine Cannabinoids Screen POSITIVE H NEGATIVE Glucometer 107 70-110 MG/DL Test 02/03/20 14:26 02/03/20 14:46 Range/Units Blood Gas Puncture Site LT RADIAL Blood Gas Patient Temperature 36.8 Arterial Blood pH 7.24 *L 7.37-7.43 Arterial Blood Partial Pressure CO2 48 H 35-45 MMHG Arterial Blood Partial Pressure O2 80 79-93 MMHG Arterial Blood HCO3 20 L 23-27 MMOL/L Arterial Blood Total CO2 21.5 21.0-31.0 MMOL/L Arterial Blood Oxygen Saturation 93 L 94-100 % Arterial Blood Base Excess -6.2 L -2.5-2.5 MMOL/L Barber Test YES-POS Blood Gas Ventilator Setting YES Blood Gas Inspired Oxygen 30% Lactic Acid Level 0.52 0.50-2.00 MMOL/L Micro Results Microbiology 02/03/20 Influenza Types A,B Antigen (EBONIE) - Final, Complete My Orders Orders - ADRIANO ROBERSON Norepinephrine 4 Mg/250 Ml (Norepinephri (02/03/20 13:11) Piperacillin Sodium/Tazobactam (Zosyn Vi (02/03/20 13:33) Vancomycin Injection (Vancomycin Injecti (02/03/20 13:45) Piperacillin Sodium/Tazobactam (Zosyn Vi (02/03/20 13:45) Ns Iv 500 Ml (Sodium Chloride 0.9%) (02/03/20 13:45) Ns (Ivpb) (Sodium Chloride 0.9% Ivpb Bag (02/03/20 13:34) Water (Sterile) For Injection (Sterile W (02/03/20 13:34) Vancomycin Injection (Vancomycin Injecti (02/03/20 13:35) Vancomycin Injection (Vancomycin Injecti (02/03/20 13:35) Ns Iv 500 Ml (Sodium Chloride 0.9%) (02/03/20 13:35) Propofol Drip (Icu) (Diprivan Drip (Icu) (02/03/20 14:15) Propofol Drip (Icu) (Diprivan Drip (Icu) (02/03/20 14:06) Sputum Culture (02/03/20 14:13) Urinalysis (02/03/20 14:13) Urine Culture (02/03/20 14:13) Protime With Inr (02/03/20 14:13) Partial Thromboplastin Time (02/03/20 14:13) Chest 1 View, Ap/Pa Only (02/03/20 14:13) Ed Iv/Invasive Line Start (02/03/20 14:13) Ed Iv/Invasive Line Start (02/03/20 14:13) Ekg Tracing (02/03/20 14:13) Vital Signs Adult Sepsis Patie Q15M (02/03/20 14:13) O2 (02/03/20 14:13) Remove Rings In Anticipation O (02/03/20 14:13) Lactic Acid Analyzer (02/03/20 14:13) Influenza A And B Antigens (02/03/20 14:13) Accucheck Stat ONCE (02/03/20 14:13) Arterial Blood Gas (02/03/20 14:13) Drug Screen Stat (Urine) (02/03/20 14:38) Ct Chest/Abdomen/Pelvis Wo (02/03/20 14:38) Alcohol (02/03/20 14:38) Potassium (02/03/20 14:43) Medications Given in ED Current Medications Medications Dose Ordered Sig/Alexandru Route Start Time Stop Time Status Last Admin Dose Admin Norepinephrine Bitartrate 250 ml @ ud STK-MED ONCE IV 02/03/20 13:11 02/03/20 13:19 DC 02/03/20 13:38 29.3 MLS/HR Piperacillin Sod/ Tazobactam Sod 4.5 gm/Sodium Chloride 100 ml @ 200 mls/hr ONCE ONCE IV 02/03/20 13:45 02/03/20 14:14 DC 02/03/20 13:48 200 MLS/HR Sodium Chloride 500 ml @ ud STK-MED ONCE .ROUTE 02/03/20 13:35 02/03/20 13:43 DC 02/03/20 14:03 500 MLS/HR Vancomycin HCl 500 mg STK-MED ONCE IV 02/03/20 13:35 02/03/20 13:42 DC 02/03/20 13:55 500 MG Vancomycin HCl 1,000 mg STK-MED ONCE .ROUTE 02/03/20 13:35 02/03/20 13:42 DC 02/03/20 13:58 1,000 MG Vital Signs/I&O 02/03/20 02/03/20 02/03/20 02/03/20 13:00 13:10 13:38 14:18 Temp 36.8 Pulse 73 68 76 Resp 9 B/P (MAP) 88/44 (59) 79/40 112/48 Pulse Ox 98 O2 Delivery Nasal Cannula Nasal Cannula O2 Flow Rate 3.00 02/03/20 14:45 Pulse 75 B/P (MAP) 106/40 Capillary Refill : Blood Pressure Mean: 69 Progress Note #1: Time: 14:28 Progress Note Septic workup, Vanco and Zosyn, 2500 cc of greater than 30 mL/kg fluid bolus. Her blood pressure remained low so we initiated Levophed at 0.1 mcg/kg per minute minute. Suspect possible pneumonia versus abdominal bowel obstruction given her history. Patient is not really endorsing any symptoms. We have obtained a flu swab. She has hypoxia however this was negative baseline. The first ABG is likely venous as the PaO2 of 30 does not match with an oxygen sat in the mid 90s. Progress Note #2: Time: 14:[address] Tripathi discussed the case with the Rishi and after having a discussion they decided the patient would be a DO NOT RESUSCITATE, allow natural . Viral swab for COVID-19 obtained. ECG Initial ECG Impression Date: Feb 03, 2020 Initial ECG Impression Time: 13:38 Initial ECG Rate: 78 Initial ECG Rhythm: Normal Sinus Initial ECG Intervals: Normal Initial ECG Impression: Normal, Nonspecific Changes Comment Normal sinus rhythm without clinically relevant ST elevation or depression. Diagnostic Imaging Diagonstic Imaging: Xray Plain Films/CT/US/NM/MRI: chest Comments NAME: [facility] REC#: [id number] PT STATUS: REG ER : 07/29/1964 PHYSICIAN: ADRIANO ROBERSON MD ADMIT DATE: 02/03/20/ER Draft Date of Exam:02/03/20 CHEST 1 VIEW, AP/PA ONLY INDICATION: Chest pain and left arm pain. TECHNIQUE/COMPARISON: A frontal chest was obtained at 11:00 AM and compared to 05/14/2009. FINDINGS: The heart and mediastinal silhouette are normal in appearance. The lungs are clear. There is no pneumothorax or pleural fluid. IMPRESSION: Negative chest. Dictated on workstation # [id number] Dict: 02/03/20 1106 Trans: 02/03/20 1108 [id number] Interpreted by: CLEOPATRA COLEMAN MD Electronically signed by: Reviewed: Reviewed by Me Diagonstic Imaging: CT (without IV contrast) Plain Films/CT/US/NM/MRI: chest, abdomen, pelvis Comments [facility], [place] NAME: [facility] REC#: [id number] PT STATUS: ADM IN : 1950 PHYSICIAN: ADRIANO ROBERSON MD ADMIT DATE: 02/03/20/ICU Draft Date of Exam:02/03/20 CT CHEST/ABDOMEN/PELVIS WO PROCEDURE: CT chest, abdomen, and pelvis without contrast. TECHNIQUE: Multiple contiguous axial images were obtained through the chest, abdomen, and pelvis without the use of intravenous contrast. Auto Exposure Controls were utilized during the CT exam to meet ALARA standards for radiation dose reduction. INDICATION: Shortness of breath with history of CHF and COPD. COMPARISON: Correlation is made with CT abdomen and pelvis study from 01/17/2020. FINDINGS: CT chest: Patient is intubated. ET tube has tip above the manoj. There is a nasogastric tube passing into the stomach. Right chest wall port has the tip in the right atrium. Left-sided line has the tip in the SVC right atrial junction. No definite pericardial or pleural fluid is identified. A pulmonary parenchymal evaluation demonstrates the upper lobes bilaterally be fairly clear. There is a very minimal interstitial nodular infiltrate in the superior segments of bilateral lower lobes. No definite groundglass opacities are seen. There is trace airspace infiltrate versus atelectasis in the far posterior aspects of the lower lobes bilaterally. No axillary lymphadenopathy is seen. Normal-sized lymph nodes in the mediastinum are noted. Hilar unremarkable. IMPRESSION: 1. There is some mild bibasilar interstitial infiltrates with minimal airspace infiltrate or atelectasis as well. No groundglass opacities are seen. There is no pleural fluid. CT abdomen and pelvis: The liver is unremarkable. The gallbladder is surgically absent. No biliary ductal dilatation is seen. The pancreas and spleen are unremarkable. No adrenal mass is detected. Kidneys are without calculi or hydronephrosis. Aorta is non-aneurysmal. Previously noted significant gastric and small bowel fluid filled distention on prior CT is no longer appreciated. Bowel gas pattern appears to be nonobstructed today. The bladder is decompressed by Sheth catheter. There is no free fluid or fluid collection identified in abdomen or pelvis. There are surgical clips in the right abdomen. No inflammatory changes are seen. IMPRESSION: 1. Resolution of findings of small bowel obstruction since CT study 01/17/2020. No acute feature in the abdomen or pelvis is identified. Dictated on workstation # [id number] Dict: 02/03/20 1608 Trans: 02/03/20 1618 [facility] [id number] Interpreted by: MERISSA CROOKS MD Electronically signed by: Reviewed: Reviewed by Me Critical Care Note Critical Care Start Time: 13:00 Stop Time: 14:15 Total Time (minutes) 75m Progress Decision was made to intubate the patient clinically. ABG was obtained which was probably venous. We'll repeat another ABG about 20-30 minutes after intubation. Patient was not protecting her airway and was deemed to be getting worse. We put an orogastric tube in place which pulled yellow bilious thin secretions. A Sheth catheter was initiated. Patient's blood pressure was maintained decently with Levophed. Departure Communication (Admissions) Time/Spoke to Admitting Phy: 14:00 Dr. Tripathi agrees to take the patient to the ICU. Impression Primary Impression: Septic shock Additional Impression: Hospital-acquired pneumonia Disposition: ADMITTED INPATIENT Condition: Critical Admissions Decision to Admit Reason: Admit from ER (General) Decision to Admit/Date: Feb 03, 2020 Time/Decision to Admit Time: 14:28 Departure-Patient Inst. Referrals: RUDOLPH KENT DO (PCP/Family) Primary Care Physician ADRIANO ROBERSON Feb 03, 2020 14:26
--- OUTSIDE RECORDS SUMMARY | 2020-02-03 14:35 | XMS REPORT | Continuity of Care Document ---
Author Organization Unknown Address Unknown Phone Unavailable Allergies Active Description Code Type Severity Reaction Onset Reported/Identified Relationship to Patient Clinical Status Yes Iodinated Contrast Media [id number] Drug Allergy Unknown N/A 08/17/2015 Yes Iodinated Contrast Media - IV Dye [id number] Drug Allergy Unknown N/A 015 Yes Iodinated Contrast Media - Oral and [id number] Drug Allergy Unknown N/A 08/17/2015 Yes Iodinated Contrast- Oral and IV Dye [id number] Drug Allergy Unknown N/A 08/17/2015 Yes linezolid [id number] Drug Allergy Unknown N/A 08/17/2015 Yes Iodinated Contrast Media [id number] Drug Allergy Mild HIVES 12/08/2019 Yes linezolid [id number] Drug Allergy Mild HIVE 12/08/2019 Medications There is no data. Problems Date Dx Coded Attending Type Code Diagnosis Diagnosed By 10/11/1319 RUDOLPH KENT DO Ot Z45.2 ENCOUNTER FOR ADJUSTMENT AND MANAGEMENT 02/27/2006 Ot 998.59 01/18/2007 Ot 721.3 01/18/2007 Ot V57.1 09/15/2008 Ot 787.91 02/16/2010 Ot 443.9 LESLY PH VASCULAR DIS NOS 02/16/2010 Ot 496 CHR AI RWAY OBSTRUCT NEC 02/16/2010 Ot 724.2 LUMBAGO 04/13/2010 Ot 112.9 CAND IDIASIS SITE NOS 04/13/2010 Ot 250.02 JULIA B CAR WO COMPL, TYPE II OR UNSPEC TY 04/13/2010 Ot 272.4 HYPE RLIPIDEMIA NEC/NOS 04/13/2010 Ot 311 DEPRES SIVE DISORDER NEC 04/13/2010 Ot 465.9 ACUT E URI NOS 04/13/2010 Ot 491.22 OBS TRUCTIVE CHRONIC BRONCHITIS WITH ACUT 04/13/2010 Ot 729.1 MYAL NICKIE AND MYOSITIS NOS 04/13/2010 Ot 787.3 FLAT UL/ERUCTAT/GAS PAIN 04/13/2010 Ot 998.59 OTH POSTOPER INFECTION 04/13/2010 Ot E932.0 ADV EFF CORTICOSTEROIDS 04/13/2010 Ot E937.9 ADV EFF SEDAT/HYPNOT NOS 07/26/2010 Ot 998.59 OTH POSTOPER INFECTION 10/30/2010 Ot 998.59 OTH POSTOPER INFECTION 01/29/2011 Ot 998.59 OTH POSTOPER INFECTION 02/26/2011 Ot 372.72 CON JUNCTIVAL HEMORRHAGE 02/26/2011 Ot 918.2 SUPE RFIC INJ CONJUNCTIVA 02/26/2011 Ot E000.8 OTH ER EXTERNAL CAUSE STATUS 02/26/2011 Ot E849.0 ACC IDENT IN HOME 02/26/2011 Ot E917.9 STR UCK BY OBJ/PERSON NEC 04/29/2011 Ot 998.59 OTH POSTOPER INFECTION 06/13/2011 Ot 250.00 JULIA B CAR WO COMPL, TYPE II OR UNSPEC TY 06/13/2011 Ot 266.2 B-CO MPLEX DEFIC NEC 06/13/2011 Ot 272.4 HYPE RLIPIDEMIA NEC/NOS 06/13/2011 Ot 276.51 DEH YDRATION 06/13/2011 Ot 276.8 HYPO POTASSEMIA 06/13/2011 Ot 305.1 TOBA FERMENTING CELLARS RECEIVER USE DISORDER 06/13/2011 Ot 311 DEPRES SIVE DISORDER NEC 06/13/2011 Ot 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 06/13/2011 Ot 496 CHR AI RWAY OBSTRUCT NEC 06/13/2011 Ot 560.1 PARA LYTIC ILEUS 06/13/2011 Ot 560.32 FEC AL IMPACTION 06/13/2011 Ot 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 NNSMSYISS-VAYA-MS/INF 06/13/2011 Ot 729.1 MYAL NICKIE AND MYOSITIS NOS 06/13/2011 Ot 998.32 DIS RUPTION OF EXTERNAL OPERATION (SURGIC 06/13/2011 Ot V46.2 SUPP LEMENTAL OXYGEN 06/13/2011 Ot V58.69 OTH MED,LT,CURRENT USE 07/30/2011 Ot 998.59 OTH POSTOPER INFECTION 10/29/2011 Ot 998.59 OTH POSTOPER INFECTION 10/29/2011 Ot V58.31 ENC OUNTER FOR CHANGE OR REMOVAL OF SURGI 01/20/2012 Ot 278.00 OBE SITY, NOS 01/20/2012 Ot 311 DEPRES SIVE DISORDER NEC 01/20/2012 Ot 327.24 IDI OPATH SLEEP RELATED NON-OBSTRUC ALVEO 01/20/2012 Ot 401.9 HYPE RTENSION NOS 01/20/2012 Ot 496 CHR AI RWAY OBSTRUCT NEC 01/20/2012 Ot 786.09 RES PIRATORY ABNORM NEC 01/20/2012 Ot V85.33 BOD Y MASS INDEX 33.0-33.9, ADULT 02/15/2012 Ot 942.24 2ND DEG BURN BACK 02/15/2012 Ot E000.8 OTH ER EXTERNAL CAUSE STATUS 02/15/2012 Ot E928.9 ACC IDENT NOS 02/15/2012 Ot V57.89 ASIM ABILITATION PROC NEC 07/18/2012 Ot 709.8 SKIN DISORDERS NEC 08/01/2012 Ot 250.00 JULIA B CAR WO COMPL, TYPE II OR UNSPEC TY 08/01/2012 Ot 272.0 PURE HYPERCHOLESTEROLEM 08/01/2012 Ot 311 DEPRES SIVE DISORDER NEC 08/01/2012 Ot 428.0 KURT ESTIVE HEART FAILURE NOS 08/01/2012 Ot 496 CHR AI RWAY OBSTRUCT NEC 08/01/2012 Ot 535.50 UNS P GASTRITIS GASTRODUODENITIS W/O ME 08/01/2012 Ot V58.69 OTH MED,LT,CURRENT USE 08/04/2012 Ot 625.9 FEM GENITAL SYMPTOMS NOS 08/04/2012 Ot 787.91 JULIA RRHEA 08/04/2012 Ot 788.1 DYSURIA 08/04/2012 Ot 791.9 ABN URINE FINDINGS NEC 08/16/2012 Ot 560.1 PARA LYTIC ILEUS 08/16/2012 Ot 789.00 ABD OMINAL PAIN, UNSPECIFIED SITE 10/17/2012 Ot 709.8 SKIN DISORDERS NEC 11/01/2012 Ot 998.83 NON -HEALING SURG WOUND 11/12/2012 Ot 998.59 OTH POSTOPER INFECTION 11/12/2012 Ot V58.31 ENC OUNTER FOR CHANGE OR REMOVAL OF SURGI 02/13/2013 Ot 998.59 OTH POSTOPER INFECTION 03/01/2013 Ot 250.00 JULIA B CAR WO COMPL, TYPE II OR UNSPEC TY 03/01/2013 Ot 266.2 B-CO MPLEX DEFIC NEC 03/01/2013 Ot 272.0 PURE HYPERCHOLESTEROLEM 03/01/2013 Ot 275.2 DIS MAGNESIUM METABOLISM 03/01/2013 Ot 276.51 DEH YDRATION 03/01/2013 Ot 304.10 SED ATIVE, HYPNOTIC OR ANXIOLYTIC DEPENDE 03/01/2013 Ot 304.90 MITZI G DEPEND NOS- UNSPEC 03/01/2013 Ot 305.1 TOBA FERMENTING CELLARS RECEIVER USE DISORDER 03/01/2013 Ot 311 DEPRES SIVE DISORDER NEC 03/01/2013 Ot 345.90 EPI LEPSY UNSPEC W/O MENTION INTRACTABLE 03/01/2013 Ot 496 CHR AI RWAY OBSTRUCT NEC 03/01/2013 Ot 530.81 ESO PHAGEAL REFLUX 03/01/2013 Ot 560.9 INTE STINAL OBSTRUCT NOS 03/01/2013 Ot 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 GVMUPVWRM-JBAH-IG/INF 03/01/2013 Ot 571.8 CASE SEALER AISHA LIVER DIS NEC 03/01/2013 Ot 596.51 HYP ERTONICITY OF BLADDER 03/01/2013 Ot 729.1 MYAL NICKIE AND MYOSITIS NOS 03/01/2013 Ot 998.32 DIS RUPTION OF EXTERNAL OPERATION (SURGIC 03/01/2013 Ot 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 03/01/2013 Ot V12.59 HX- CIRCULATORY SYST DIS,NEC 03/01/2013 Ot V46.2 SUPP LEMENTAL OXYGEN 03/03/2013 Ot V58.81 FIT /ADJ VASCULAR CATHETER 03/14/2013 BESSY ALEXANDRE, MELISA Ot 709.8 SKIN DISORDERS NEC 08/31/2013 RUDOLPH KENT DO Ot 250.00 DIAB CAR WO COMPL, TYPE II OR UNSPEC TY 08/31/2013 RUDOLPH KENT DO Ot 266.2 B-COMPLEX DEFIC NEC 08/31/2013 RUDOLPH KENT DO Ot 272.4 HYPERLIPIDEMIA NEC/NOS 08/31/2013 RUDOLPH KENT DO Ot 304.10 SEDATIVE, HYPNOTIC OR ANXIOLYTIC DEPENDE 08/31/2013 RUDOLPH KENT DO Ot 304.90 DRUG DEPEND NOS-UNSPEC 08/31/2013 RUDOLPH KENT DO Ot 305.1 TOBACCO USE DISORDER 08/31/2013 RUDOLPH KENT DO Ot 311 DEPRESSIVE DISORDER NEC 08/31/2013 RUDOLPH KENT DO Ot 345.90 EPILEPSY UNSPEC W/O MENTION INTRACTABLE 08/31/2013 RUDOLPH KENT DO, Ot 487.1 FLU W RESP MANIFEST NEC 08/31/2013 RUDOLPH KENT DO Ot 491.21 OBSTR CHRONIC BRONCHITIS, W (ACUTE) EXAC 08/31/2013 RUDOLPH KENT DO, Ot 530.81 ESOPHAGEAL REFLUX 08/31/2013 RUDOLPH KENT DO Ot 564.09 OTHER CONSTIPATION 08/31/2013 RUDOLPH KENT DO, Ot 729.1 MYALGIA AND MYOSITIS NOS 08/31/2013 RUDOLPH KENT DO, Ot 998.32 DISRUPTION OF EXTERNAL OPERATION (SURGIC 08/31/2013 RUDOLPH KENT DO Ot V04.81 ND FOR PROPHYLACTIC VACCIN AND INOCULATI 08/31/2013 RUDOLPH KENT DO, Ot V12.04 PERSONAL HIST OF METHICILLIN RESISTANT S 08/31/2013 RUDOLPH KENT DO, Ot V46.2 SUPPLEMENTAL OXYGEN 10/30/2013 RUDOLPH KENT DO, Ot 998.32 DISRUPTION OF EXTERNAL OPERATION (SURGIC 02/25/2014 RUDOLPH KENT DO Ot 250.00 DIAB CAR WO COMPL, TYPE II OR UNSPEC TY 02/25/2014 RUDOLPH KENT DO Ot 272.4 HYPERLIPIDEMIA NEC/NOS 02/25/2014 RUDOLPH KENT DO Ot 276.1 HYPOSMOLALITY 02/25/2014 RUDOLPH KENT DO, Ot 276.7 HYPERPOTASSEMIA 02/25/2014 RUDOLPH KENT DO Ot 300.00 ANXIETY STATE NOS 02/25/2014 RUDOLPH KENT DO Ot 304.90 DRUG DEPEND NOS-UNSPEC 02/25/2014 RUDOLPH KENT DO Ot 305.1 TOBACCO USE DISORDER 02/25/2014 RUDOLPH KENT DO Ot 311 DEPRESSIVE DISORDER NEC 02/25/2014 RUDOLPH KENT DO Ot 345.90 EPILEPSY UNSPEC W/O MENTION INTRACTABLE 02/25/2014 RUDOLPH KENT DO Ot 496 CHR AIRWAY OBSTRUCT NEC 02/25/2014 RUDOLPH KENT DO, Ot 530.81 ESOPHAGEAL REFLUX 02/25/2014 RUDOLPH KENT DO Ot 560.9 INTESTINAL OBSTRUCT NOS 02/25/2014 RUDOLPH EKNT DO, Ot 729.1 MYALGIA AND MYOSITIS NOS 02/25/2014 RUDOLPH KENT DO Ot 998.83 NON-HEALING SURG WOUND 02/25/2014 RUDOLPH KENT DO Ot V12.04 PERSONAL HIST OF METHICILLIN RESISTANT S 04/16/2014 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 Ot 879.2 OPN WND ANTERIOR ABDOMEN 04/16/2014 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 Ot V58.81 FIT/ADJ VASCULAR CATHETER 06/04/2014 CHA VERDUGO DO Ot 531.90 STOMACH ULCER NOS 07/09/2014 CHA VERDUGO DO Ot 531.90 STOMACH ULCER NOS 07/16/2014 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 Ot 709.8 SKIN DISORDERS NEC 07/16/2014 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 Ot V58.81 FIT/ADJ VASCULAR CATHETER 07/30/2014 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 Ot V58.81 FIT/ADJ VASCULAR CATHETER 08/20/2014 CHA VERDUGO DO Ot 531.90 STOMACH ULCER NOS 09/24/2014 JUAN LICONA MD Ot 250. 00 DIAB CAR WO COMPL, TYPE II OR UNSPEC TY 09/24/2014 JUAN LICONA MD Ot 272. 4 HYPERLIPIDEMIA NEC/NOS 09/24/2014 JUAN LICONA MD Ot 305. 1 TOBACCO USE DISORDER 09/24/2014 JUAN LICONA MD Ot 401. 9 HYPERTENSION NOS 09/24/2014 JUAN LICONA MD Ot 414. 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 67 LONG-TERM (CURRENT) USE OF INSULIN 09/24/2014 JUAN LICONA MD Ot V58. 69 OTH MED,LT,CURRENT USE 09/30/2014 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 Ot 709.8 09/30/2014 JIMMY KENTP Ot 709.8 SKIN DISORDERS NEC 10/01/2014 JUAN LICONA MD Ot 272. 4 10/01/2014 JUAN LICONA MD Ot 397. 0 10/01/2014 JUAN LICONA MD Ot 424. 0 10/01/2014 JUAN LICONA MD, Ot 786. 09 10/01/2014 JUAN LICONA MD Ot 786. 50 10/01/2014 JUAN LICONA MD Ot V46. 2 10/19/2014 JUAN LICONA MD Ot 272. 4 10/19/2014 JUAN LICONA MD Ot 786. 09 10/19/2014 JUAN LICONA MD Ot 786. 50 10/19/2014 JUAN LICONA MD Ot V46. 2 11/02/2014 RUDOLPH KENT DO Ot V76.12 12/23/2014 QING TAO DO Ot 305. 1 12/23/2014 QING TAO DO Ot 496 12/23/2014 QING TAO DO Ot 786. 09 12/31/2014 RAY COLBY MD Ot 998.83 01/26/2015 Ot 327.26 SLE EP RELATED HYPOVENTILATION/HYPOXEMIA 01/26/2015 Ot 786.09 RES PIRATORY ABNORM NEC 03/02/2015 RAY COLBY MD Ot 998.83 NON-HEALING SURG WOUND 03/11/2015 RAY COLBY MD Ot 998.83 03/16/2015 CHA VERDUGO DO Ot 531.90 STOMACH ULCER NOS 03/16/2015 CHA VERDUGO DO Ot 535.40 OTH SPECIFIED GASTRITIS,W/O MENTION OF H 03/16/2015 CHA VERDUGO DO Ot 787.20 DYSPHAGIA, UNSPECIFIED 04/05/2015 RAY COLBY MD Ot 998.83 04/05/2015 RAY COLBY MD Ot 998.83 04/05/2015 RAY COLBY MD, Ot 998.83 04/10/2015 QING TAO DO Ot 305. 1 04/10/2015 QING TAO DO Ot 496 04/10/2015 QING TAO DO Ot 786. 09 04/28/2015 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 Ot 486 04/28/2015 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 Ot 789.00 04/28/2015 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 Ot 959.6 04/28/2015 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 Ot E000.8 04/28/2015 YOLIJIMMY SCIENTIFIC LABORATORY SUPERVISOR Ot E849.4 04/28/2015 YOLI JIMMY L SCIENTIFIC LABORATORY SUPERVISOR Ot E888.9 04/28/2015 ANDREA FERRO DPM Ot 355. 5 04/28/2015 DIANN VERDUGO DOTIE Ot 530.10 04/28/2015 LUCINADIANN LOJA DOTIE Ot 553.3 04/28/2015 CHA VERDUGO DO Ot 787.20 05/06/2015 QING TAO DO Ot 305. 1 05/06/2015 QING TAO DO Ot 496 05/06/2015 QING TAO DO Ot 786. 09 06/08/2015 RAY COLBY MD Ot 998.83 NON-HEALING SURG WOUND 06/09/2015 RAY COLBY MD Ot 998.83 06/09/2015 RAY COLBY MD Ot 250.82 DIAB W OTH SPEC MANIFEST, TYPE II OR UNS 06/09/2015 RAY COLBY MD Ot 278.01 MORBID OBESITY 06/09/2015 RAY COLBY MD Ot 305 .1 TOBACCO USE DISORDER 06/09/2015 RAY COLBY MD Ot 707 .8 CHRONIC SKIN ULCER NEC 06/09/2015 RAY COLBY MD Ot 709 .1 VASCULAR DISORD OF SKIN 06/09/2015 RAY COLBY MD Ot 998.83 NON-HEALING SURG WOUND 06/09/2015 RAY COLBY MD Ot V85.33 BODY MASS INDEX 33.0-33.9, ADULT 06/10/2015 RAY COLBY MD Ot 998.83 06/10/2015 RAY COLBY MD Ot 998.83 07/29/2015 QING TAO DO Ot 305. 1 07/29/2015 QING TAO DO Ot 496 07/29/2015 QING TAO DO, Ot 786. 09 08/03/2015 RUDOLPH KENT DO Ot 414.00 08/03/2015 RUDOLPH KENT DO Ot 786.50 08/17/2015 CHA VERDUGO DO Ot K29.60 OTHER GASTRITIS WITHOUT BLEEDING 08/17/2015 RUDOLPH KENT DO Ot 414.00 08/17/2015 RUDOLPH KENT DO Ot 786.50 08/17/2015 YOLI VILLALPANDO RUDOLPH Mandi Ot I25.10 08/17/2015 KENT DO RUDOLPH Mandi Ot R07.9 09/20/2015 CAIO KRISHAN PETRA Mandi Ot 724. 1 09/20/2015 CAIO KRISHAN PETRA Mandi Ot 786. 50 09/20/2015 MEDARDO VERDUGO DOROUTIE Ot 553.20 09/20/2015 DIANN VERDUGO DOTIE Ot V81.5 09/28/2015 Ot 383.1 09/28/2015 Ot 787.20 09/28/2015 Ot 789.00 09/28/2015 Ot V76.12 09/28/2015 Ot 998.59 09/28/2015 Ot V72.84 09/28/2015 Ot 625.9 09/28/2015 Ot 787.91 09/28/2015 Ot 788.1 09/28/2015 Ot 791.9 09/28/2015 Ot V76.12 09/28/2015 Ot 998.59 09/28/2015 Ot V58.81 09/28/2015 JIMMY VARGAS Alin 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 Ot 780.60 09/28/2015 JIMMY VARGAS Alin 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 Ot 786.2 09/28/2015 JIMMY VARGAS Alin 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 Ot 793.19 09/28/2015 KENT DO, RUDOLPH Mandi Ot 486 09/28/2015 YOLI VILLALPANDO RUDOLPH Mandi Ot 780.60 09/28/2015 KENTAVA VILLALPANDO RUDOLPH Mandi Ot 793.19 09/28/2015 MEDARDO VERDUGO DOROUTIE Ot V72.84 09/28/2015 LUCINA VILLALPANDO, CHANDROUTIE Ot 787.20 09/28/2015 LUCINA DO, CHANDROUTIE Ot V72.84 09/28/2015 LUCINA DO, CHANDROUTIE Ot V72.84 09/28/2015 Ot V58.81 09/28/2015 LUCINA DOMEDARDOROUTIE Ot 879.2 09/28/2015 MEDARDO VERDUGO DOROUTIE Ot E000.8 09/28/2015 MEDARDO VERDUGO DOROUTIE Ot E928.9 09/28/2015 JUAN LICONA MD Ot 272. 4 09/28/2015 JUAN LICONA MD Ot 397. 0 09/28/2015 LIVAN ALEXANDRE, JUAN Raymond Ot 424. 0 09/28/2015 LIVAN ALEXANDRE, JUAN Raymond Ot 786. 09 09/28/2015 LIVAN ALEXANDRE, JUAN Raymond Ot 786. 50 09/28/2015 LIVAN ALEXANDRE, JUAN Raymond Ot V46. 2 09/28/2015 LIVAN ALEXANDRE, JUAN Raymond Ot 272. 4 09/28/2015 JUAN LICONA MD Ot 786. 09 09/28/2015 JUAN LICONA MD Ot 786. 50 09/28/2015 UJAN LICONA MD Ot V46. 2 09/28/2015 RUDOLPH KENT DO Ot V76.12 09/28/2015 QING TAO DO Ot 305. 1 09/28/2015 QING TAO DO Ot 496 09/28/2015 QING TAO DO Ot 786. 09 09/28/2015 KASIE RICHARDSM, ANDREA Chong Ot 355. 5 09/28/2015 CHA VERDUGO DO Ot V72.84 09/28/2015 DIANN VERDUGO DOTIE Ot 530.10 09/28/2015 MEDARDO VERDUGO DOROUTIE Ot 553.3 09/28/2015 MEDARDO VERDUGO DOROUTIE Ot 787.20 09/28/2015 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 Ot 486 09/28/2015 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 Ot 789.00 09/28/2015 ADAMA KENTIA Jr SCIENTIFIC LABORATORY SUPERVISOR Ot 959.6 09/28/2015 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 Ot E000.8 09/28/2015 ADAMA KENTIA L SCIENTIFIC LABORATORY SUPERVISOR Ot E849.4 09/28/2015 ADAMA KENTIA L SCIENTIFIC LABORATORY SUPERVISOR Ot E888.9 10/04/2015 RUDOLPH KENT DO Ot 414.00 10/04/2015 RUDOLPH KENT DO Ot 786.50 10/04/2015 RUDOLPH KENT DO Ot I25.10 10/04/2015 RUDOLPH KENT DO Ot R07.9 10/14/2015 RUDOLPH KENT DO Ot 414.00 10/14/2015 RUDOLPH KENT DO Ot 786.50 10/14/2015 RUDOLPH KENT DO Ot I25.10 10/14/2015 RUDOLPH KENT DO Ot R07.9 11/10/2015 Ot 383.1 11/10/2015 Ot 787.20 11/10/2015 Ot 789.00 11/10/2015 Ot V76.12 11/10/2015 Ot 998.59 11/10/2015 Ot V72.84 11/10/2015 Ot 625.9 11/10/2015 Ot 787.91 11/10/2015 Ot 788.1 11/10/2015 Ot 791.9 11/10/2015 Ot V76.12 11/10/2015 Ot 998.59 11/10/2015 Ot V58.81 11/10/2015 RIDINGSJIMMY C 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 Ot 780.60 11/10/2015 RIDINGSADAMAIA C 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 Ot 786.2 11/10/2015 RIDINGSJIMMY C 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 Ot 793.19 11/10/2015 RUDOLPH KENT DO Ot 486 11/10/2015 RUDOLPH KENT DO Ot 780.60 11/10/2015 RUDOLPH KENT DO Ot 793.19 11/10/2015 LUCINA DO, MEDARDOROUTIE Ot V72.84 11/10/2015 LUCINA DO, MEDARDOROUTIE Ot 787.20 11/10/2015 LUCINA DO, MEDARDOROUTIE Ot V72.84 11/10/2015 LUCINA DO, CHANDROUTIE Ot V72.84 11/10/2015 Ot V58.81 11/10/2015 LUCINA DO, MEDARDOROUTIE Ot 879.2 11/10/2015 LUCINA DO, MEDARDOROUTIE Ot E000.8 11/10/2015 LUCINA DO, CHANDROUTIE Ot E928.9 11/10/2015 LIVAN ALEXANDRE, JUAN Raymond Ot 272. 4 11/10/2015 LIVAN ALEXANDRE, JUAN Raymond Ot 397. 0 11/10/2015 LIVAN ALEXANDRE, JUAN Raymond Ot 424. 0 11/10/2015 LIVAN ALEXANDRE, JUAN Raymond Ot 786. 09 11/10/2015 LIVAN ALEXANDRE, JUAN Raymond Ot 786. 50 11/10/2015 LIVAN ALEXANDRE, JUAN Raymond Ot V46. 2 11/10/2015 LIVAN ALEXANDRE, JUAN Raymond Ot 272. 4 11/10/2015 LIVAN ALEXANDRE, JUAN Raymond Ot 786. 09 11/10/2015 LIVAN ALEXANDRE, JUAN Raymond Ot 786. 50 11/10/2015 LIVAN ALEXANDRE, JUAN Raymond Ot V46. 2 11/10/2015 RUDOLPH KENT DO Ot V76.12 11/10/2015 QING TAO DO Ot 305. 1 11/10/2015 QING TAO DO Ot 496 11/10/2015 QING TAO DO Ot 786. 09 11/10/2015 KASIE DPM, ANDREA Q Ot 355. 5 11/10/2015 LUCINA , MEDARDOROUTIE Ot V72.84 11/10/2015 LUCINA , MEDARDOROUTIE Ot 530.10 11/10/2015 LUCINA , MEDARDOROUTIE Ot 553.3 11/10/2015 LUCINA , MEDARDOROUTIE Ot 787.20 11/10/2015 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 Ot 486 11/10/2015 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 Ot 789.00 11/10/2015 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 Ot 959.6 11/10/2015 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 Ot E000.8 11/10/2015 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 Ot E849.4 11/10/2015 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 Ot E888.9 03/28/2016 RUDOLPH KENT DO Ot Z45.2 ENCOUNTER FOR ADJUSTMENT AND MANAGEMENT 04/18/2016 RUDOLPH KENT DO Ot E11.9 TYPE 2 DIABETES MELLITUS WITHOUT COMPLIC 04/18/2016 RUDOLPH KENT DO Ot F17.210 NICOTINE DEPENDENCE, CIGARETTES, UNCOMPL 04/18/2016 RUDOLPH KENT DO, Ot I10 ESSENTIAL (PRIMARY) HYPERTENSION 04/18/2016 RUDOLPH KENT DO, Ot I50.9 HEART FAILURE, UNSPECIFIED 04/18/2016 RUDOLPH KENT DO, Ot J44.1 CHRONIC OBSTRUCTIVE PULMONARY DISEASE W 04/18/2016 RUDOLPH KENT DO, Ot J90 PLEURAL EFFUSION, NOT ELSEWHERE CLASSIFI 04/18/2016 RUDOLPH KENT DO, Ot M79.7 FIBROMYALGIA 04/18/2016 RUDOLPH KENT DO Ot R60.9 EDEMA, UNSPECIFIED 04/20/2016 Ot 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 04/20/2016 Ot 787.20 DYS PHAGIA, UNSPECIFIED 04/20/2016 Ot 789.00 ABD OMINAL PAIN, UNSPECIFIED SITE 04/20/2016 Ot V76.12 OTH SCREEN MAMMO- MALIGN NEOPLASM OF JEANETH 04/20/2016 Ot 998.59 OTH POSTOPER INFECTION 04/20/2016 Ot V72.84 EXA M PRE- OPERATIVE NOS 04/20/2016 Ot 625.9 FEM GENITAL SYMPTOMS NOS 04/20/2016 Ot 787.91 JULIA RRHEA 04/20/2016 Ot 788.1 DYSURIA 04/20/2016 Ot 791.9 ABN URINE FINDINGS NEC 04/20/2016 Ot V76.12 OTH SCREEN MAMMO- MALIGN NEOPLASM OF JEANETH 04/20/2016 Ot 998.59 OTH POSTOPER INFECTION 04/20/2016 Ot V58.81 FIT /ADJ VASCULAR CATHETER 04/20/2016 RIDINGS, JIMMY C 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 Ot 780.60 FEVER, UNSPECIFIED 04/20/2016 RIDINGS, JIMMY C 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 Ot 786.2 COUGH 04/20/2016 RIDINGS, JIMMY C 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 Ot 793.19 OTHER NONSPECIFIC ABNORMAL FINDING OF CATHLEEN 04/20/2016 RUDOLPH KENT DO Ot 486 PNEUMONIA, ORGANISM NOS 04/20/2016 RUDOLPH KENT DO Ot 780.60 FEVER, UNSPECIFIED 04/20/2016 RUDOLPH KENT DO Ot 793.19 OTHER NONSPECIFIC ABNORMAL FINDING OF CATHLEEN 04/20/2016 CHA VERDUGO DO Ot V72.84 EXAM PRE-OPERATIVE NOS 04/20/2016 CHA VERDUGO DO Ot 787.20 DYSPHAGIA, UNSPECIFIED 04/20/2016 CHA VERDUGO DO Ot V72.84 EXAM PRE-OPERATIVE NOS 04/20/2016 CHA VERDUGO DO Ot V72.84 EXAM PRE-OPERATIVE NOS 04/20/2016 Ot V58.81 FIT /ADJ VASCULAR CATHETER 04/20/2016 CHA VERDUGO DO Ot 879.2 OPN WND ANTERIOR ABDOMEN 04/20/2016 CHA VERDUGO DO Ot E000.8 OTHER EXTERNAL CAUSE STATUS 04/20/2016 CHA VERDUGO DO Ot E928.9 ACCIDENT NOS 04/20/2016 JUAN LICONA MD Ot 272. 4 HYPERLIPIDEMIA NEC/NOS 04/20/2016 JUAN LICONA MD Ot 397. 0 TRICUSPID VALVE DISEASE 04/20/2016 JUAN LICONA MD Ot 424. 0 MITRAL VALVE DISORDER 04/20/2016 JUAN LICONA MD Ot 786. 09 RESPIRATORY ABNORM NEC 04/20/2016 JUAN LICONA MD Ot 786. 50 CHEST PAIN NOS 04/20/2016 JUAN LICONA MD Ot V46. 2 SUPPLEMENTAL OXYGEN 04/20/2016 JUAN LICONA MD Ot 272. 4 HYPERLIPIDEMIA NEC/NOS 04/20/2016 JUAN LICONA MD Ot 786. 09 RESPIRATORY ABNORM NEC 04/20/2016 JUAN LICONA MD Ot 786. 50 CHEST PAIN NOS 04/20/2016 JUAN LICONA MD Ot V46. 2 SUPPLEMENTAL OXYGEN 04/20/2016 RUDOLPH KENT DO Ot V76.12 OTH SCREEN MAMMO-MALIGN NEOPLASM OF [place] 04/20/2016 QING TAO DO Ot 305. 1 TOBACCO USE DISORDER 04/20/2016 QING TAO DO Ot 496 CHR AIRWAY OBSTRUCT NEC 04/20/2016 QING TAO DO Ot 786. 09 RESPIRATORY ABNORM NEC 04/20/2016 KASIE DPM, ANDREA Q Ot 355. 5 TARSAL TUNNEL SYNDROME 04/20/2016 CHA VERDUGO DO Ot V72.84 EXAM PRE-OPERATIVE NOS 04/20/2016 CHA VERDUGO DO Ot 530.10 ESOPHAGITIS NOS 04/20/2016 CHA VERDUGO DO Ot 553.3 DIAPHRAGMATIC HERNIA 04/20/2016 CHA VERDUGO DO Ot 787.20 DYSPHAGIA, UNSPECIFIED 04/20/2016 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 Ot 486 PNEUMONIA, ORGANISM NOS 04/20/2016 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 Ot 789.00 ABDOMINAL PAIN, UNSPECIFIED SITE 04/20/2016 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 Ot 959.6 HIP THIGH INJURY NOS 04/20/2016 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 Ot E000.8 OTHER EXTERNAL CAUSE STATUS 04/20/2016 KENT, JIMMY Jr GARCIA Ot E849.4 ACCID IN RECREATION AREA 04/20/2016 JIMMY KENT Ot E888.9 FALL NOS 04/20/2016 GLADWIN PETRA NICKERSON Ot 724. 5 BACKACHE NOS 04/20/2016 CAIO KRISHAN, PETRA Raymond Ot 786. 50 CHEST PAIN NOS 04/20/2016 GLADWIN PETRA NICKERSON Ot 724. 1 PAIN IN THORACIC SPINE 04/20/2016 GLADWIN PETRA NICKERSON Ot 786. 50 CHEST PAIN NOS 04/20/2016 RUDOLPH KENT DO Ot 414.00 CORON ATHEROSCLER NOS TYPE VESSEL, NATIV 04/20/2016 RUDOLPH KENT DO Ot 786.50 CHEST PAIN NOS 04/20/2016 RUDOLPH KENT DO Ot I25.10 ATHSCL HEART DISEASE OF [place] CORONARY 04/20/2016 RUDOLPH KENT DO Ot R07.9 CHEST PAIN, UNSPECIFIED 04/20/2016 CHA VERDUGO DO Ot R10.9 UNSPECIFIED ABDOMINAL PAIN 04/20/2016 CHA VERDUGO DO Ot Z01.818 ENCOUNTER FOR OTHER PREPROCEDURAL EXAMIN 04/20/2016 CHA VERDUGO DO Ot 553.20 VENTRAL HERNIA NOS 04/20/2016 CHA VERDUGO DO Ot V81.5 SCREEN FOR NEPHROPATHY 04/20/2016 RUDOLPH KENT DO Ot Z45.2 ENCOUNTER FOR ADJUSTMENT AND MANAGEMENT 04/20/2016 LUKASZ CROWLEY APRN Ot F17.210 NICOTINE DEPENDENCE, CIGARETTES, UNCOMPL 04/20/2016 LUKASZ CROWLEY APRN Ot J44.9 CHRONIC OBSTRUCTIVE PULMONARY DISEASE, U 04/20/2016 LUKASZ CROWLEY APRN Ot R06.00 DYSPNEA, UNSPECIFIED 04/25/2016 LUKASZ CROWLEY APRN Ot F17.210 NICOTINE DEPENDENCE, CIGARETTES, UNCOMPL 04/25/2016 LUKASZ CROWLEY APRN Ot J44.9 CHRONIC OBSTRUCTIVE PULMONARY DISEASE, U 04/25/2016 LUKASZ CROWLEY APRN Ot R06.00 DYSPNEA, UNSPECIFIED 04/28/2016 LUKASZ CROWLEY APRN Ot F17.210 NICOTINE DEPENDENCE, CIGARETTES, UNCOMPL 04/28/2016 LUKASZ CROWLEY APRN Ot J44.9 CHRONIC OBSTRUCTIVE PULMONARY DISEASE, U 04/28/2016 LUKASZ CROWLEY APRN Ot R06.00 DYSPNEA, UNSPECIFIED 05/05/2016 RUDOLPH KENT DO Ot Z45.2 ENCOUNTER FOR ADJUSTMENT AND MANAGEMENT 05/09/2016 RUDOLPH KENT DO Ot Z45.2 ENCOUNTER FOR ADJUSTMENT AND MANAGEMENT 05/19/2016 RUDOLPH KENT DO Ot Z45.2 ENCOUNTER FOR ADJUSTMENT AND MANAGEMENT 06/16/2016 RUDOLPH KENT DO Ot Z45.2 ENCOUNTER FOR ADJUSTMENT AND MANAGEMENT 06/26/2016 RUDOLPH KENT DO, Ot Z45.2 ENCOUNTER FOR ADJUSTMENT AND MANAGEMENT 06/29/2016 Ot 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 06/29/2016 Ot 787.20 DYS PHAGIA, UNSPECIFIED 06/29/2016 Ot 789.00 ABD OMINAL PAIN, UNSPECIFIED SITE 06/29/2016 Ot V76.12 OTH SCREEN MAMMO- MALIGN NEOPLASM OF [place] 06/29/2016 Ot 998.59 OTH POSTOPER INFECTION 06/29/2016 Ot V72.84 EXA M PRE- OPERATIVE NOS 06/29/2016 Ot 625.9 FEM GENITAL SYMPTOMS NOS 06/29/2016 Ot 787.91 JULIA RRHEA 06/29/2016 Ot 788.1 DYSURIA 06/29/2016 Ot 791.9 ABN URINE FINDINGS NEC 06/29/2016 Ot V76.12 OTH SCREEN MAMMO- MALIGN NEOPLASM OF [place] 06/29/2016 Ot 998.59 OTH POSTOPER INFECTION 06/29/2016 Ot V58.81 FIT /ADJ VASCULAR CATHETER 06/29/2016 RIDINGS, JIMMY C 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 Ot 780.60 FEVER, UNSPECIFIED 06/29/2016 RIDINGS, JIMMY C 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 Ot 786.2 COUGH 06/29/2016 RIDTONY, JIMMY C 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 Ot 793.19 OTHER NONSPECIFIC ABNORMAL FINDING OF [place] 06/29/2016 RUDOLPH KENT DO Ot 486 PNEUMONIA, ORGANISM NOS 06/29/2016 RUDOLPH KENT DO Ot 780.60 FEVER, UNSPECIFIED 06/29/2016 RUDOLPH KENT DO Ot 793.19 OTHER NONSPECIFIC ABNORMAL FINDING OF [place] 06/29/2016 CHA VERDUGO DO Ot V72.84 EXAM PRE-OPERATIVE NOS 06/29/2016 CHA VERDUGO DO Ot 787.20 DYSPHAGIA, UNSPECIFIED 06/29/2016 CHA VERDUGO DO Ot V72.84 EXAM PRE-OPERATIVE NOS 06/29/2016 CHA VERDUGO DO Ot V72.84 EXAM PRE-OPERATIVE NOS 06/29/2016 Ot V58.81 FIT /ADJ VASCULAR CATHETER 06/29/2016 CHA VERDUGO DO Ot 879.2 OPN WND ANTERIOR ABDOMEN 06/29/2016 CHA VERDUGO DO Ot E000.8 OTHER EXTERNAL CAUSE STATUS 06/29/2016 CHA VERDUGO DO Ot E928.9 ACCIDENT NOS 06/29/2016 JUAN LICONA MD Ot 272. 4 HYPERLIPIDEMIA NEC/NOS 06/29/2016 JUAN LICONA MD Ot 397. 0 TRICUSPID VALVE DISEASE 06/29/2016 JUAN LICONA MD Ot 424. 0 MITRAL VALVE DISORDER 06/29/2016 JUAN LICONA MD Ot 786. 09 RESPIRATORY ABNORM NEC 06/29/2016 JUAN LICONA MD Ot 786. 50 CHEST PAIN NOS 06/29/2016 JUAN LICONA MD Ot V46. 2 SUPPLEMENTAL OXYGEN 06/29/2016 JUAN LICONA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 ROSA Ot I25.10 ATHSCL HEART DISEASE OF [place] CORONARY 12/26/2017 LUKASZ CROWLEY APRN Ot F17.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, UNSPECIFIED, UNCOMP 12/26/2017 LUKASZ CROWLEY APRN Ot J44.9 CHRONIC OBSTRUCTIVE PULMONARY DISEASE, U 12/26/2017 RUDOLPH KENT DO, Ot M94.8X6 OTHER SPECIFIED DISORDERS OF [place], 12/26/2017 RUDOLPH KENT DO, Ot S83.242A OTH TEAR OF MEDIAL MENISCUS, CURRENT INJ 12/26/2017 RUDOLPH KENT DO, Ot S83.282A OTH TEAR OF LAT MENSC, CURRENT INJURY, L 12/26/2017 RUDOLPH KENT DO Ot X58.XXXA EXPOSURE TO OTHER SPECIFIED FACTORS, INI 12/26/2017 RUDOLPH KENT DO Ot Y99.8 OTHER EXTERNAL CAUSE STATUS 12/26/2017 RUDOLPH KENT DO, Ot Z12.31 ENCNTR SCREEN MAMMOGRAM FOR MALIGNANT NE 12/26/2017 RUDOLPH KENT DO, Ot M40.209 UNSPECIFIED KYPHOSIS, SITE UNSPECIFIED 12/26/2017 RUDOLPH KENT DO, Ot M85.852 OTH DISRD OF BONE DENSITY AND STRUCTURE, 12/26/2017 RUDOLPH KENT DO Ot Z78.0 ASYMPTOMATIC MENOPAUSAL STATE 12/26/2017 RUDOLPH KENT DO, Ot Z45.2 ENCOUNTER FOR ADJUSTMENT AND MANAGEMENT 02/21/2018 Ot V76.12 OTH SCREEN MAMMO- MALIGN NEOPLASM OF [place] 02/21/2018 Ot 998.59 OTH POSTOPER INFECTION 02/21/2018 Ot V58.81 FIT /ADJ VASCULAR CATHETER 02/21/2018 RIDINGS, JIMMY Ogden 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 Ot 780.60 FEVER, UNSPECIFIED 02/21/2018 RIDINGS, JIMMY C 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 Ot 786.2 COUGH 02/21/2018 RIDINGS, JIMMY C 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 Ot 793.19 OTHER NONSPECIFIC ABNORMAL FINDING OF [place] 02/21/2018 YOLI VILLALPANDO, RUDOLPH Raymond Ot 486 PNEUMONIA, ORGANISM NOS 02/21/2018 KENT DO, RUDOLPH Raymond Ot 780.60 FEVER, UNSPECIFIED 02/21/2018 KENT DO, RUDOLPH Raymond Ot 793.19 OTHER NONSPECIFIC ABNORMAL FINDING OF [place] 02/21/2018 CHA VERDUGO DO Ot V72.84 EXAM PRE-OPERATIVE NOS 02/21/2018 CHA VERDUGO DO Ot 787.20 DYSPHAGIA, UNSPECIFIED 02/21/2018 CHA VERDUGO DO Ot V72.84 EXAM PRE-OPERATIVE NOS 02/21/2018 LUCINACHA DIANA DO Ot V72.84 EXAM PRE-OPERATIVE NOS 02/21/2018 Ot V58.81 FIT /ADJ VASCULAR CATHETER 02/21/2018 CHA VERDUGO DO Ot 879.2 OPN WND ANTERIOR ABDOMEN 02/21/2018 CHA VERDUGO DO Ot E000.8 OTHER EXTERNAL CAUSE STATUS 02/21/2018 CHA VERDUGO DO Ot E928.9 ACCIDENT NOS 02/21/2018 JUAN ILCONA MD Ot 272. 4 HYPERLIPIDEMIA NEC/NOS 02/21/2018 JUAN LICONA MD Ot 397. 0 TRICUSPID VALVE DISEASE 02/21/2018 JUAN LICONA MD Ot 424. 0 MITRAL VALVE DISORDER 02/21/2018 JUAN LICONA MD Ot 786. 09 RESPIRATORY ABNORM NEC 02/21/2018 JUAN LICONA MD Ot 786. 50 CHEST PAIN NOS 02/21/2018 JUAN LICONA MD Ot V46. 2 SUPPLEMENTAL OXYGEN 02/21/2018 JUAN LICONA MD Ot 272. 4 HYPERLIPIDEMIA NEC/NOS 02/21/2018 JUAN LICONA MD Ot 786. 09 RESPIRATORY ABNORM NEC 02/21/2018 JUAN LICONA MD Ot 786. 50 CHEST PAIN NOS 02/21/2018 JUAN LICONA MD Ot V46. 2 SUPPLEMENTAL OXYGEN 02/21/2018 RUDOLPH KENT DO Ot V76.12 OTH SCREEN MAMMO-MALIGN NEOPLASM OF [place] 02/21/2018 QING TAO DO Ot 305. 1 TOBACCO USE DISORDER 02/21/2018 QING TAO DO Ot 496 CHR AIRWAY OBSTRUCT NEC 02/21/2018 QING TAO DO Ot 786. 09 RESPIRATORY ABNORM NEC 02/21/2018 KASIE DPM, ANDREA Q Ot 355. 5 TARSAL TUNNEL SYNDROME 02/21/2018 CHA VERDUGO DO Ot V72.84 EXAM PRE-OPERATIVE NOS 02/21/2018 CHA VERDUGO DO Ot 530.10 ESOPHAGITIS NOS 02/21/2018 CHA VERDUGO DO Ot 553.3 DIAPHRAGMATIC HERNIA 02/21/2018 CHA VERDUGO DO Ot 787.20 DYSPHAGIA, UNSPECIFIED 02/21/2018 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 Ot 486 PNEUMONIA, ORGANISM NOS 02/21/2018 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 Ot 789.00 ABDOMINAL PAIN, UNSPECIFIED SITE 02/21/2018 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 Ot 959.6 HIP THIGH INJURY NOS 02/21/2018 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 Ot E000.8 OTHER EXTERNAL CAUSE STATUS 02/21/2018 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 Ot E849.4 ACCID IN RECREATION AREA 02/21/2018 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 Ot E888.9 FALL NOS 02/21/2018 PETRA KEARNEY DC Ot 724. 5 BACKACHE NOS 02/21/2018 PETRA KEARNEY DC Ot 786. 50 CHEST PAIN NOS 02/21/2018 PETRA KEARNEY DC Ot 724. 1 PAIN IN THORACIC SPINE 02/21/2018 PETRA KEARNEY DC Ot 786. 50 CHEST PAIN NOS 02/21/2018 RUDOLPH KENT DO Ot 414.00 CORON ATHEROSCLER NOS TYPE VESSEL, NATIV 02/21/2018 RUDOLPH KENT DO Ot 786.50 CHEST PAIN NOS 02/21/2018 RUDOLPH KENT DO Ot I25.10 ATHSCL HEART DISEASE OF [place] CORONARY 02/21/2018 RUDOLPH KENT DO Ot R07.9 CHEST PAIN, UNSPECIFIED 02/21/2018 CHA VERDUGO DO Ot R10.9 UNSPECIFIED ABDOMINAL PAIN 02/21/2018 LUCINA CHA VILLALPANDO Ot Z01.818 ENCOUNTER FOR OTHER PREPROCEDURAL EXAMIN 02/21/2018 CHA VERDUGO DO Ot 553.20 VENTRAL HERNIA NOS 02/21/2018 CHA VERDUGO DO Ot V81.5 SCREEN FOR NEPHROPATHY 02/21/2018 LUKASZ CROWLEY APRN Ot F17.210 NICOTINE DEPENDENCE, CIGARETTES, UNCOMPL 02/21/2018 LUKASZ CROWLEY APRN Ot J44.9 CHRONIC OBSTRUCTIVE PULMONARY DISEASE, U 02/21/2018 LUKASZ CROWLEY APRN Ot R06.00 DYSPNEA, UNSPECIFIED 02/21/2018 FRANDY DE LA ROSA Ot E11.9 TYPE 2 DIABETES MELLITUS WITHOUT COMPLIC 02/21/2018 FRANDY DE LA ROSA Ot E78.2 MIXED HYPERLIPIDEMIA 02/21/2018 FRANDY DE LA ROSA Ot I10 ESSENTIAL (PRIMARY) HYPERTENSION 02/21/2018 FRANDY DE LA ROSA Ot I25.10 ATHSCL HEART DISEASE OF [place] CORONARY 02/21/2018 FRANDY DE LA ROSA Ot E11.9 TYPE 2 DIABETES MELLITUS WITHOUT COMPLIC 02/21/2018 FRANDY DE LA ROSA Ot E78.2 MIXED HYPERLIPIDEMIA 02/21/2018 FRANDY DE LA ROSA Ot I10 ESSENTIAL (PRIMARY) HYPERTENSION 02/21/2018 FRANDY DE LA ROSA Ot I25.10 ATHSCL HEART DISEASE OF [place] CORONARY 02/21/2018 LUKASZ CROWLEY APRN Ot F17.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, UNSPECIFIED, UNCOMP 02/21/2018 LUKASZ CROWLEY APRN Ot J44.9 CHRONIC OBSTRUCTIVE PULMONARY DISEASE, U 02/21/2018 RUDOLPH KENT DO Ot M94.8X6 OTHER SPECIFIED DISORDERS OF [place], 02/21/2018 RUDOLPH KENT DO Ot S83.242A OTH TEAR OF MEDIAL MENISCUS, CURRENT INJ 02/21/2018 RUDOLPH KENT DO, Ot S83.282A OTH TEAR OF LAT MENSC, CURRENT INJURY, L 02/21/2018 RUDOLPH KENT DO, Ot X58.XXXA EXPOSURE TO OTHER SPECIFIED FACTORS, INI 02/21/2018 RUDOLPH KENT DO, Ot Y99.8 OTHER EXTERNAL CAUSE STATUS 02/21/2018 RUDOLPH KENT DO, Ot Z12.31 ENCNTR SCREEN MAMMOGRAM FOR MALIGNANT NE 02/21/2018 RUDOLPH KENT DO, Ot M40.209 UNSPECIFIED KYPHOSIS, SITE UNSPECIFIED 02/21/2018 RUDOLPH KENT DO, Ot M85.852 OT DISRD OF BONE DENSITY AND STRUCTURE, 02/21/2018 RUDOLPH KENT DO, Ot Z78.0 ASYMPTOMATIC MENOPAUSAL STATE 02/21/2018 RUDOLPH KENT DO, Ot Z45.2 ENCOUNTER FOR ADJUSTMENT AND MANAGEMENT 02/21/2018 RUDOLPH KENT DO, Ot Z45.2 ENCOUNTER FOR ADJUSTMENT AND MANAGEMENT 03/20/2018 RUDOLHP KENT DO, Ot Z45.2 ENCOUNTER FOR ADJUSTMENT AND MANAGEMENT 03/21/2018 RUDOLPH KENT DO, Ot Z45.2 ENCOUNTER FOR ADJUSTMENT AND MANAGEMENT 03/21/2018 RUDOLPH KENT DO, Ot Z45.2 ENCOUNTER FOR ADJUSTMENT AND MANAGEMENT 04/03/2018 RUDOLPH KENT DO, Ot M77.32 CALCANEAL SPUR, LEFT FOOT 04/03/2018 RUDOLPH KENT DO, Ot S79.912A UNSPECIFIED INJURY OF LEFT HIP, INITIAL 04/03/2018 RUDOLPH KENT DO, Ot W19.XXXA UNSPECIFIED FALL, INITIAL ENCOUNTER 04/05/2018 RUDOLPH KENT DO, Ot Z45.2 ENCOUNTER FOR ADJUSTMENT AND MANAGEMENT 04/08/2018 RUDOLPH KENT DO, Ot M77.32 CALCANEAL SPUR, LEFT FOOT 04/08/2018 RUDOLPH KENT DO, Ot S79.912A UNSPECIFIED INJURY OF LEFT HIP, INITIAL 04/08/2018 RUDOLPH KENT DO, Ot W19.XXXA UNSPECIFIED FALL, INITIAL ENCOUNTER 04/16/2018 EARNESTINE ALEXANDRE, RAY Davis Ot L98 .9 DISORDER OF THE SKIN AND SUBCUTANEOUS TI 04/18/2018 RUDOLPH KENT DO, Ot Z45.2 ENCOUNTER FOR ADJUSTMENT AND MANAGEMENT 04/24/2018 RUDOLPH KENT DO, Ot M77.32 CALCANEAL SPUR, LEFT FOOT 04/24/2018 YOLI VILLALPANDO, RUDOLPH Raymond Ot S79.912A UNSPECIFIED INJURY OF LEFT HIP, INITIAL 04/24/2018 RUDOLPH KENT DO, Ot W19.XXXA UNSPECIFIED FALL, INITIAL ENCOUNTER 04/26/2018 RUDOLPH KENT DO, Ot Z45.2 ENCOUNTER FOR ADJUSTMENT AND MANAGEMENT 04/30/2018 EARNESTINE ALEXANDRE, RAY Davis Ot L98 .9 DISORDER OF THE SKIN AND SUBCUTANEOUS TI 05/10/2018 RUDOLPH KENT DO, Ot M77.32 CALCANEAL SPUR, LEFT FOOT 05/10/2018 RUDOLPH KENT DO, Ot S79.912A UNSPECIFIED INJURY OF LEFT HIP, INITIAL 05/10/2018 RUDOLPH KENT DO, Ot W19.XXXA UNSPECIFIED FALL, INITIAL ENCOUNTER 05/16/2018 RUDOLPH KENT DO, Ot Z45.2 ENCOUNTER FOR ADJUSTMENT AND MANAGEMENT 05/16/2018 RUDOLPH KENT DO, Ot Z45.2 ENCOUNTER FOR ADJUSTMENT AND MANAGEMENT 05/22/2018 RUDOLPH KENT DO, Ot Z45.2 ENCOUNTER FOR ADJUSTMENT AND MANAGEMENT 05/23/2018 RUDOLPH KENT DO, Ot Z45.2 ENCOUNTER FOR ADJUSTMENT AND MANAGEMENT 07/09/2018 RUDOLPH KENT DO, Ot Z45.2 ENCOUNTER FOR ADJUSTMENT AND MANAGEMENT 07/10/2018 RUDOLPH KENT DO, Ot Z45.2 ENCOUNTER FOR ADJUSTMENT AND MANAGEMENT 07/12/2018 RUDOLPH KENT DO, Ot Z45.2 ENCOUNTER FOR ADJUSTMENT AND MANAGEMENT 08/07/2018 RUDOLPH KENT DO, Ot Z45.2 ENCOUNTER FOR ADJUSTMENT AND MANAGEMENT 08/14/2018 RUDOLPH KENT DO, Ot Z45.2 ENCOUNTER FOR ADJUSTMENT AND MANAGEMENT 08/15/2018 Ot V58.81 FIT /ADJ VASCULAR CATHETER 08/15/2018 RIDINGS, JIMMY C 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 Ot 780.60 FEVER, UNSPECIFIED 08/15/2018 RIDINGS, JIMMY C 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 Ot 786.2 COUGH 08/15/2018 RIDINGS, JIMMY C 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 Ot 793.19 OTHER NONSPECIFIC ABNORMAL FINDING OF [place] 08/15/2018 RUDOLPH KENT DO Ot 486 PNEUMONIA, ORGANISM NOS 08/15/2018 RUDOLPH KENT DO Ot 780.60 FEVER, UNSPECIFIED 08/15/2018 RUDOLPH KENT DO Ot 793.19 OTHER NONSPECIFIC ABNORMAL FINDING OF [place] 08/15/2018 LUCINA DO MEDARDOSAUD Ot V72.84 EXAM PRE-OPERATIVE NOS 08/15/2018 LUCINA CHA VILLALPANDO Ot 787.20 DYSPHAGIA, UNSPECIFIED 08/15/2018 LUCINA DO MEDARDOSAUD Ot V72.84 EXAM PRE-OPERATIVE NOS 08/15/2018 LUCINA DO MEDARDOSAUD Ot V72.84 EXAM PRE-OPERATIVE NOS 08/15/2018 Ot V58.81 FIT /ADJ VASCULAR CATHETER 08/15/2018 LUCINA CHA VILLALPANDO Ot 879.2 OPN WND ANTERIOR ABDOMEN 08/15/2018 LUCINA CHA VILLALPANDO Ot E000.8 OTHER EXTERNAL CAUSE STATUS 08/15/2018 LUCINA CHA VILLALPANDO Ot E928.9 ACCIDENT NOS 08/15/2018 JUAN LICONA MD Ot 272. 4 HYPERLIPIDEMIA NEC/NOS 08/15/2018 JUAN LICONA MD Ot 397. 0 TRICUSPID VALVE DISEASE 08/15/2018 JUAN LICONA MD Ot 424. 0 MITRAL VALVE DISORDER 08/15/2018 JUAN LICONA MD Ot 786. 09 RESPIRATORY ABNORM NEC 08/15/2018 JUAN LICONA MD Ot 786. 50 CHEST PAIN NOS 08/15/2018 JUAN LICONA MD Ot V46. 2 SUPPLEMENTAL OXYGEN 08/15/2018 JUAN LICONA MD Ot 272. 4 HYPERLIPIDEMIA NEC/NOS 08/15/2018 JUAN LICONA MD Ot 786. 09 RESPIRATORY ABNORM NEC 08/15/2018 JUAN LICONA MD Ot 786. 50 CHEST PAIN NOS 08/15/2018 JUAN LICONA MD Ot V46. 2 SUPPLEMENTAL OXYGEN 08/15/2018 RUDOLPH KENT DO Ot V76.12 OT SCREEN MAMMO-MALIGN NEOPLASM OF [place] 08/15/2018 QING TAO DO Ot 305. 1 TOBACCO USE DISORDER 08/15/2018 QING TAO DO Ot 496 CHR AIRWAY OBSTRUCT NEC 08/15/2018 QING TAO DO Ot 786. 09 RESPIRATORY ABNORM NEC 08/15/2018 KASIE DPM, ANDREA Q Ot 355. 5 TARSAL TUNNEL SYNDROME 08/15/2018 CHA VERDUGO DO Ot V72.84 EXAM PRE-OPERATIVE NOS 08/15/2018 CHA VERDUGO DO Ot 530.10 ESOPHAGITIS NOS 08/15/2018 CHA VERDUGO DO Ot 553.3 DIAPHRAGMATIC HERNIA 08/15/2018 CHA VERDUGO DO Ot 787.20 DYSPHAGIA, UNSPECIFIED 08/15/2018 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 Ot 486 PNEUMONIA, ORGANISM NOS 08/15/2018 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 Ot 789.00 ABDOMINAL PAIN, UNSPECIFIED SITE 08/15/2018 JIMMY KENTP Ot 959.6 HIP THIGH INJURY NOS 08/15/2018 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 Ot E000.8 OTHER EXTERNAL CAUSE STATUS 08/15/2018 IJMMY KENT SCIENTIFIC LABORATORY SUPERVISOR Ot E849.4 ACCID IN RECREATION AREA 08/15/2018 JIMMY KENTP Ot E888.9 FALL NOS 08/15/2018 PETRA KEARNEY DC Ot 724. 5 BACKACHE NOS 08/15/2018 PETRA KEARNEY DC Ot 786. 50 CHEST PAIN NOS 08/15/2018 PETRA KEARNEY DC Ot 724. 1 PAIN IN THORACIC SPINE 08/15/2018 PETRA KEARNEY DC Ot 786. 50 CHEST PAIN NOS 08/15/2018 RUDOLPH KENT DO Ot 414.00 CORON ATHEROSCLER NOS TYPE VESSEL, NATIV 08/15/2018 RUDOLPH KENT DO Ot 786.50 CHEST PAIN NOS 08/15/2018 RUDOLPH KENT DO Ot I25.10 ATHSCL HEART DISEASE OF [place] CORONARY 08/15/2018 RUDOLPH KENT DO Ot R07.9 CHEST PAIN, UNSPECIFIED 08/15/2018 CHA VERDUGO DO Ot R10.9 UNSPECIFIED ABDOMINAL PAIN 08/15/2018 CHA VERDUGO DO Ot Z01.818 ENCOUNTER FOR OTHER PREPROCEDURAL EXAMIN 08/15/2018 CHA VERDUGO DO Ot 553.20 VENTRAL HERNIA NOS 08/15/2018 CHA VERDUGO DO Ot V81.5 SCREEN FOR NEPHROPATHY 08/15/2018 LUKASZ CROWLEY APRN Ot F17.210 NICOTINE DEPENDENCE, CIGARETTES, UNCOMPL 08/15/2018 LUKASZ CROWLEY APRN Ot J44.9 CHRONIC OBSTRUCTIVE PULMONARY DISEASE, U 08/15/2018 LUKASZ CROWLEY APRN Ot R06.00 DYSPNEA, UNSPECIFIED 08/15/2018 FRANDY DE LA ROSA Ot E11.9 TYPE 2 DIABETES MELLITUS WITHOUT COMPLIC 08/15/2018 FRANDY DE LA ROSA Ot E78.2 MIXED HYPERLIPIDEMIA 08/15/2018 FRANDY DE LA ROSA Ot I10 ESSENTIAL (PRIMARY) HYPERTENSION 08/15/2018 FRANDY DE LA ROSA Ot I25.10 ATHSCL HEART DISEASE OF [place] CORONARY 08/15/2018 FRANDY DE LA ROSA Ot E11.9 TYPE 2 DIABETES MELLITUS WITHOUT COMPLIC 08/15/2018 FRANDY DE LA ROSA Ot E78.2 MIXED HYPERLIPIDEMIA 08/15/2018 FRANDY DE LA ROSA Ot I10 ESSENTIAL (PRIMARY) HYPERTENSION 08/15/2018 FRANDY DE LA ROSA Ot I25.10 ATHSCL HEART DISEASE OF [place] CORONARY 08/15/2018 LUKASZ CROWLEY APRN Ot F17.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, UNSPECIFIED, UNCOMP 08/15/2018 LUKASZ CROWLEY APRN Ot J44.9 CHRONIC OBSTRUCTIVE PULMONARY DISEASE, U 08/15/2018 RUDOLPH KENT DO Ot M94.8X6 OTHER SPECIFIED DISORDERS OF [place], 08/15/2018 RUDOLPH KENT DO, Ot S83.242A OTH TEAR OF MEDIAL MENISCUS, CURRENT INJ 08/15/2018 RUDOLPH KENT DO, Ot S83.282A OTH TEAR OF LAT MENSC, CURRENT INJURY, L 08/15/2018 RUDOLPH KENT DO, Ot X58.XXXA EXPOSURE TO OTHER SPECIFIED FACTORS, INI 08/15/2018 RUDOLPH KENT DO, Ot Y99.8 OTHER EXTERNAL CAUSE STATUS 08/15/2018 RUDOLPH KENT DO, Ot Z12.31 ENCNTR SCREEN MAMMOGRAM FOR MALIGNANT NE 08/15/2018 RUDOLPH KENT DO, Ot M40.209 UNSPECIFIED KYPHOSIS, SITE UNSPECIFIED 08/15/2018 RUDOLPH KENT DO J Ot M85.852 OT DISRD OF BONE DENSITY AND STRUCTURE, 08/15/2018 KENT DO RUDOLPH Mandi Ot Z78.0 ASYMPTOMATIC MENOPAUSAL STATE 08/15/2018 EARNESTINE ALEXANDRE, RAY Davis Ot L98 .9 DISORDER OF THE SKIN AND SUBCUTANEOUS TI 08/15/2018 RUDOLPH KENT DO Ot M77.32 CALCANEAL SPUR, LEFT FOOT 08/15/2018 RUDOLPH KENT DO Ot S79.912A UNSPECIFIED INJURY OF LEFT HIP, INITIAL 08/15/2018 RUDOLPH KENT DO Ot W19.XXXA UNSPECIFIED FALL, INITIAL ENCOUNTER 08/15/2018 RUDOLPH KENT DO Ot Z45.2 ENCOUNTER FOR ADJUSTMENT AND MANAGEMENT 08/16/2018 Ot V58.81 FIT /ADJ VASCULAR CATHETER 08/16/2018 RIDINGS, JIMMY C 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 Ot 780.60 FEVER, UNSPECIFIED 08/16/2018 RIDINGS, JIMMY C 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 Ot 786.2 COUGH 08/16/2018 RIDINGS, JIMMY C 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 Ot 793.19 OTHER NONSPECIFIC ABNORMAL FINDING OF [place] 08/16/2018 RUDOLPH KENT DO Ot 486 PNEUMONIA, ORGANISM NOS 08/16/2018 KENTRUDOLPH BURNHAM DO Ot 780.60 FEVER, UNSPECIFIED 08/16/2018 KENT RUDOLPH VILLALPANDO Ot 793.19 OTHER NONSPECIFIC ABNORMAL FINDING OF [place] 08/16/2018 CHA VERDUGO DO Ot V72.84 EXAM PRE-OPERATIVE NOS 08/16/2018 CHA VERDUGO DO Ot 787.20 DYSPHAGIA, UNSPECIFIED 08/16/2018 CHA VERDUGO DO Ot V72.84 EXAM PRE-OPERATIVE NOS 08/16/2018 CHA VERDUGO DO Ot V72.84 EXAM PRE-OPERATIVE NOS 08/16/2018 Ot V58.81 FIT /ADJ VASCULAR CATHETER 08/16/2018 CHA VERDUGO DO Ot 879.2 OPN WND ANTERIOR ABDOMEN 08/16/2018 CHA VERDUGO DO Ot E000.8 OTHER EXTERNAL CAUSE STATUS 08/16/2018 CHA VERDUGO DO Ot E928.9 ACCIDENT NOS 08/16/2018 JUAN LICONA MD Ot 272. 4 HYPERLIPIDEMIA NEC/NOS 08/16/2018 JUAN LICONA MD Ot 397. 0 TRICUSPID VALVE DISEASE 08/16/2018 JUAN LICONA MD Ot 424. 0 MITRAL VALVE DISORDER 08/16/2018 JUAN LICONA MD Ot 786. 09 RESPIRATORY ABNORM NEC 08/16/2018 JUAN LICONA MD Ot 786. 50 CHEST PAIN NOS 08/16/2018 JUAN LICONA MD Ot V46. 2 SUPPLEMENTAL OXYGEN 08/16/2018 JUAN LICONA MD Ot 272. 4 HYPERLIPIDEMIA NEC/NOS 08/16/2018 JUAN LICONA MD Ot 786. 09 RESPIRATORY ABNORM NEC 08/16/2018 JUAN LICONA MD Ot 786. 50 CHEST PAIN NOS 08/16/2018 JUAN LICONA MD Ot V46. 2 SUPPLEMENTAL OXYGEN 08/16/2018 RUDOLPH KENT DO Ot V76.12 OTH SCREEN MAMMO-MALIGN NEOPLASM OF [place] 08/16/2018 QING TAO DO Ot 305. 1 TOBACCO USE DISORDER 08/16/2018 QING TAO DO Ot 496 CHR AIRWAY OBSTRUCT NEC 08/16/2018 QING TAO DO Ot 786. 09 RESPIRATORY ABNORM NEC 08/16/2018 KASIE DPM, ANDREA Q Ot 355. 5 TARSAL TUNNEL SYNDROME 08/16/2018 CHA VERDUGO DO Ot V72.84 EXAM PRE-OPERATIVE NOS 08/16/2018 CHA VERDUGO DO Ot 530.10 ESOPHAGITIS NOS 08/16/2018 CHA VERDUGO DO Ot 553.3 DIAPHRAGMATIC HERNIA 08/16/2018 CHA VERDUGO DO Ot 787.20 DYSPHAGIA, UNSPECIFIED 08/16/2018 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 Ot 486 PNEUMONIA, ORGANISM NOS 08/16/2018 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 Ot 789.00 ABDOMINAL PAIN, UNSPECIFIED SITE 08/16/2018 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 Ot 959.6 HIP THIGH INJURY NOS 08/16/2018 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 Ot E000.8 OTHER EXTERNAL CAUSE STATUS 08/16/2018 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 Ot E849.4 ACCID IN RECREATION AREA 08/16/2018 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 Ot E888.9 FALL NOS 08/16/2018 CAIO KRISHAN, PETRA Raymond Ot 724. 5 BACKACHE NOS 08/16/2018 CAIO DC, PETRA Raymond Ot 786. 50 CHEST PAIN NOS 08/16/2018 CAIO KRISHAN, PETRA Raymond Ot 724. 1 PAIN IN THORACIC SPINE 08/16/2018 CAIO KRISHAN, PETRA Raymond Ot 786. 50 CHEST PAIN NOS 08/16/2018 RUDOLPH KENT DO Ot 414.00 CORON ATHEROSCLER NOS TYPE VESSEL, NATIV 08/16/2018 RUDOLPH KENT DO Ot 786.50 CHEST PAIN NOS 08/16/2018 RUDOLPH KENT DO Ot I25.10 ATHSCL HEART DISEASE OF [place] CORONARY 08/16/2018 RUDOLPH KENT DO Ot R07.9 CHEST PAIN, UNSPECIFIED 08/16/2018 CHA VERDUGO DO Ot R10.9 UNSPECIFIED ABDOMINAL PAIN 08/16/2018 CHA VERDUGO DO Ot Z01.818 ENCOUNTER FOR OTHER PREPROCEDURAL EXAMIN 08/16/2018 CHA VERDUGO DO Ot 553.20 VENTRAL HERNIA NOS 08/16/2018 CHA VERDUGO DO Ot V81.5 SCREEN FOR NEPHROPATHY 08/16/2018 LUKASZ CROWLEY APRN Ot F17.210 NICOTINE DEPENDENCE, CIGARETTES, UNCOMPL 08/16/2018 LUKASZ CROWLEY APRN Ot J44.9 CHRONIC OBSTRUCTIVE PULMONARY DISEASE, U 08/16/2018 LUKASZ CROWLEY APRN Ot R06.00 DYSPNEA, UNSPECIFIED 08/16/2018 FRANDY DE LA ROSA Ot E11.9 TYPE 2 DIABETES MELLITUS WITHOUT COMPLIC 08/16/2018 FRANDY DE LA ROSA Ot E78.2 MIXED HYPERLIPIDEMIA 08/16/2018 FRANDY DE LA ROSA Ot I10 ESSENTIAL (PRIMARY) HYPERTENSION 08/16/2018 FRANDY DE LA ROSA Ot I25.10 ATHSCL HEART DISEASE OF [place] CORONARY 08/16/2018 FRANDY DE LA ROSA Ot E11.9 TYPE 2 DIABETES MELLITUS WITHOUT COMPLIC 08/16/2018 FRANDY DE LA ROSA Ot E78.2 MIXED HYPERLIPIDEMIA 08/16/2018 FRANDY DE LA ROSA Ot I10 ESSENTIAL (PRIMARY) HYPERTENSION 08/16/2018 DORIS EVANS, FRANDY Aviles Ot I25.10 ATHSCL HEART DISEASE OF [place] CORONARY 08/16/2018 LUKASZ CROWLEY APRN Ot F17.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, UNSPECIFIED, UNCOMP 08/16/2018 LUKASZ CROWLEY APRN Ot J44.9 CHRONIC OBSTRUCTIVE PULMONARY DISEASE, U 08/16/2018 RUDOLPH KENT DO, Ot M94.8X6 OTHER SPECIFIED DISORDERS OF [place], 08/16/2018 RUDOLPH KENT DO, Ot S83.242A OTH TEAR OF MEDIAL MENISCUS, CURRENT INJ 08/16/2018 RUDOLPH KENT DO, Ot S83.282A OTH TEAR OF LAT MENSC, CURRENT INJURY, L 08/16/2018 RUDOLPH KENT DO, Ot X58.XXXA EXPOSURE TO OTHER SPECIFIED FACTORS, INI 08/16/2018 RUDOLPH KENT DO, Ot Y99.8 OTHER EXTERNAL CAUSE STATUS 08/16/2018 RUDOLPH KENT DO, Ot Z12.31 ENCNTR SCREEN MAMMOGRAM FOR MALIGNANT NE 08/16/2018 RUDOLPH KENT DO, Ot M40.209 UNSPECIFIED KYPHOSIS, SITE UNSPECIFIED 08/16/2018 RUDOLPH KENT DO, Ot M85.852 OT DISRD OF BONE DENSITY AND STRUCTURE, 08/16/2018 RUDOLPH KENT DO, Ot Z78.0 ASYMPTOMATIC MENOPAUSAL STATE 08/16/2018 EARNESTINE ALEXANDRE, RAY Davis Ot L98 .9 DISORDER OF THE SKIN AND SUBCUTANEOUS TI 08/16/2018 RUDOLPH KENT DO, Ot M77.32 CALCANEAL SPUR, LEFT FOOT 08/16/2018 RUDOLPH KENT DO, Ot S79.912A UNSPECIFIED INJURY OF LEFT HIP, INITIAL 08/16/2018 RUDOLPH KENT DO, Ot W19.XXXA UNSPECIFIED FALL, INITIAL ENCOUNTER 08/16/2018 RUDOLPH KENT DO, Ot Z45.2 ENCOUNTER FOR ADJUSTMENT AND MANAGEMENT 08/19/2018 RUDOLPH KENT DO, Ot F09 UNSP MENTAL DISORDER DUE TO KNOWN PHYSIO 08/19/2018 RUDOLPH KENT DO, Ot G43.909 MIGRAINE, UNSP, NOT INTRACTABLE, WITHOUT 08/19/2018 RUDOLPH KENT DO, Ot W19.XXXA UNSPECIFIED FALL, INITIAL ENCOUNTER 08/22/2018 RUDOLPH KENT DO, Ot F09 UNSP MENTAL DISORDER DUE TO KNOWN PHYSIO 08/22/2018 RUDOLPH KENT DO, Ot G43.909 MIGRAINE, UNSP, NOT INTRACTABLE, WITHOUT 08/22/2018 RUDOLPH KENT DO, Ot W19.XXXA UNSPECIFIED FALL, INITIAL ENCOUNTER 09/04/2018 RUDOLPH KENT DO, Ot Z45.2 ENCOUNTER FOR ADJUSTMENT AND MANAGEMENT 09/04/2018 RUDOLPH KENT DO, Ot Z45.2 ENCOUNTER FOR ADJUSTMENT AND MANAGEMENT 09/10/2018 RUDOLPH KENT DO, Ot F09 UNSP MENTAL DISORDER DUE TO KNOWN PHYSIO 09/10/2018 RUDOPLH KENT DO, Ot G43.909 MIGRAINE, UNSP, NOT INTRACTABLE, WITHOUT 09/10/2018 RUDOLPH KENT DO, Ot W19.XXXA UNSPECIFIED FALL, INITIAL ENCOUNTER 09/11/2018 RUDOLPH KENT DO, Ot M25.78 OSTEOPHYTE, VERTEBRAE 09/11/2018 RUDOLPH KENT DO, Ot M43.16 SPONDYLOLISTHESIS, LUMBAR REGION 09/11/2018 RUDOLPH KENT DO, Ot M46.86 OTHER SPECIFIED INFLAMMATORY SPONDYLOPAT 09/11/2018 RUDOLPH KENT DO, Ot M47.27 OTHER SPONDYLOSIS WITH RADICULOPATHY, CATHLEEN 09/11/2018 RUDOLPH KENT DO, Ot M48.061 SPINAL STENOSIS, LUMBAR REGION WITHOUT N 09/11/2018 RUDOLPH KENT DO, Ot M51.16 INTERVERTEBRAL DISC DISORDERS W RADICULO 09/11/2018 RUDOLPH KENT DO, Ot M99.73 CONN TISS AND DISC STENOS OF INTVRT FORA 09/16/2018 RUDOLPH KENT DO Ot F09 UNSP MENTAL DISORDER DUE TO KNOWN PHYSIO 09/16/2018 RUDOLPH KENT DO, Ot G43.909 MIGRAINE, UNSP, NOT INTRACTABLE, WITHOUT 09/16/2018 RUDOLPH KENT DO, Ot W19.XXXA UNSPECIFIED FALL, INITIAL ENCOUNTER 09/16/2018 MELISA DOHERTY MD Ot Z01.81 8 ENCOUNTER FOR OTHER PREPROCEDURAL EXAMIN 09/19/2018 MELISA DOHERTY MD Ot E11.40 TYPE 2 DIABETES MELLITUS WITH DIABETIC N 09/19/2018 MELISA DOHERTY MD, Ot E78.00 PURE HYPERCHOLESTEROLEMIA, UNSPECIFIED 09/19/2018 MELISA DOHERTY MD, Ot E78.5 HYPERLIPIDEMIA, UNSPECIFIED 09/19/2018 MELISA DOHERTY MD, Ot F41.9 ANXIETY DISORDER, UNSPECIFIED 09/19/2018 MELISA DOHERTY MD, Ot G40.90 9 EPILEPSY, UNSP, NOT INTRACTABLE, WITHOUT 09/19/2018 MELISA DOHERTY MD, Ot G89.29 OTHER CHRONIC PAIN 09/19/2018 MELISA DOHERTY MD, Ot I11.0 HYPERTENSIVE HEART DISEASE WITH HEART FA 09/19/2018 MELISA DOHERTY MD, Ot I25.10 ATHSCL HEART DISEASE OF [place] CORONARY 09/19/2018 MELISA DOHERTY MD, Ot I50.9 HEART FAILURE, UNSPECIFIED 09/19/2018 MELISA DOHERTY MD, Ot I65.23 OCCLUSION AND STENOSIS OF BILATERAL PASCUAL 09/19/2018 MELISA DOHERTY MD, Ot I87.2 VENOUS INSUFFICIENCY (CHRONIC) (PERIPHER 09/19/2018 MELISA DOHERTY MD, Ot J44.9 CHRONIC OBSTRUCTIVE PULMONARY DISEASE, U 09/19/2018 MELISA DOHERTY MD, Ot K21.9 GASTRO-ESOPHAGEAL REFLUX DISEASE WITHOUT 09/19/2018 MELISA DOHERTY MD, Ot M31.9 NECROTIZING VASCULOPATHY, UNSPECIFIED 09/19/2018 MELISA DOHERTY MD, Ot M79.66 1 PAIN IN RIGHT LOWER LEG 09/19/2018 MELISA DOHERTY MD, Ot M79.66 2 PAIN IN LEFT LOWER LEG 09/19/2018 MELISA DOHERTY MD, Ot M79.7 FIBROMYALGIA 09/19/2018 MELISA DOHERTY MD, Ot R06.00 DYSPNEA, UNSPECIFIED 09/19/2018 MELISA DOHERTY MD, Ot R06.02 SHORTNESS OF BREATH 09/19/2018 MELISA DOHERTY MD, Ot R42 DIZZINESS AND GIDDINESS 09/19/2018 MELISA DOHERTY MD, Ot T82.89 8A OTH COMPLICATION OF VASCULAR PROSTH DEV/ 09/19/2018 MELISA DOHERTY MD, Ot Z11.2 ENCOUNTER FOR SCREENING FOR OTHER BACTER 09/19/2018 MELISA DOHERTY MD, Ot Z79.4 LANDSCAPE ARCHITECT AND PLANNER (CURRENT) USE OF INSULIN 09/19/2018 MELISA DOHERTY MD, Ot Z79.82 LANDSCAPE ARCHITECT AND PLANNER (CURRENT) USE OF ASPIRIN 09/19/2018 MELISA DOHERTY MD, Ot Z79.84 LANDSCAPE ARCHITECT AND PLANNER (CURRENT) USE OF ORAL HYPOGLYC 09/19/2018 MELISA DOHERTY MD, Ot Z79.89 9 OTHER LANDSCAPE ARCHITECT AND PLANNER (CURRENT) DRUG THERAPY 09/19/2018 MELISA DOHERTY MD, Ot Z82.49 FAMILY HX OF ISCHEM HEART DIS AND OTH DI 09/19/2018 MELISA DOHERTY MD, Ot Z95.5 PRESENCE OF CORONARY ANGIOPLASTY IMPLANT 09/24/2018 MELISA DOHERTY MD, Ot E11.40 TYPE 2 DIABETES MELLITUS WITH DIABETIC N 09/24/2018 MELISA DOHERTY MD, Ot E78.00 PURE HYPERCHOLESTEROLEMIA, UNSPECIFIED 09/24/2018 MELISA DOHERTY MD, Ot E78.5 HYPERLIPIDEMIA, UNSPECIFIED 09/24/2018 MELISA DOHERTY MD, Ot F41.9 ANXIETY DISORDER, UNSPECIFIED 09/24/2018 MELISA DOHERTY MD, Ot G40.90 9 EPILEPSY, UNSP, NOT INTRACTABLE, WITHOUT 09/24/2018 MELISA DOHERTY MD, Ot G89.29 OTHER CHRONIC PAIN 09/24/2018 MELISA DOHERTY MD, Ot I11.0 HYPERTENSIVE HEART DISEASE WITH HEART FA 09/24/2018 MELISA DOHERTY MD, Ot I25.10 ATHSCL HEART DISEASE OF [place] CORONARY 09/24/2018 MELISA DOHERTY MD, Ot I50.9 HEART FAILURE, UNSPECIFIED 09/24/2018 MELISA DOHERTY MD, Ot I65.23 OCCLUSION AND STENOSIS OF BILATERAL PASCUAL 09/24/2018 MELISA DOHERTY MD, Ot I87.2 VENOUS INSUFFICIENCY (CHRONIC) (PERIPHER 09/24/2018 MELISA DOHERTY MD, Ot J44.9 CHRONIC OBSTRUCTIVE PULMONARY DISEASE, U 09/24/2018 MELISA DOHERTY MD, Ot K21.9 GASTRO-ESOPHAGEAL REFLUX DISEASE WITHOUT 09/24/2018 MELISA DOHRETY MD, Ot M31.9 NECROTIZING VASCULOPATHY, UNSPECIFIED 09/24/2018 MELISA DOHERTY MD, Ot M79.66 1 PAIN IN RIGHT LOWER LEG 09/24/2018 MELISA DOHERTY MD, Ot M79.66 2 PAIN IN LEFT LOWER LEG 09/24/2018 MELISA DOHERTY MD, Ot M79.7 FIBROMYALGIA 09/24/2018 MELISA DOHERTY MD, Ot R06.00 DYSPNEA, UNSPECIFIED 09/24/2018 MELISA DOHERTY MD, Ot R06.02 SHORTNESS OF BREATH 09/24/2018 MELISA DOHERTY MD, Ot R42 DIZZINESS AND GIDDINESS 09/24/2018 MELISA DOHERTY MD, Ot T82.89 8A OTH COMPLICATION OF VASCULAR PROSTH DEV/ 09/24/2018 MELISA DOHERTY MD, Ot Z11.2 ENCOUNTER FOR SCREENING FOR OTHER BACTER 09/24/2018 MELISA DOHERTY MD, Ot Z79.4 CORRECTION (CURRENT) USE OF INSULIN 09/24/2018 MELISA DOHERTY MD, Ot Z79.82 LANDSCAPE ARCHITECT AND PLANNER (CURRENT) USE OF ASPIRIN 09/24/2018 MELSIA DOHERTY MD, Ot Z79.84 LANDSCAPE ARCHITECT AND PLANNER (CURRENT) USE OF ORAL HYPOGLYC 09/24/2018 MELISA DOHERTY MD, Ot Z79.89 9 OTHER CORRECTION (CURRENT) DRUG THERAPY 09/24/2018 MELISA DOHERTY MD, Ot Z82.49 FAMILY HX OF ISCHEM HEART DIS AND OTH DI 09/24/2018 MELISA DOHERTY MD, Ot Z95.5 PRESENCE OF CORONARY ANGIOPLASTY IMPLANT 10/02/2018 RUDOLPH KENT DO Ot M25.78 OSTEOPHYTE, VERTEBRAE 10/02/2018 RUDOLPH KENT DO, Ot M43.16 SPONDYLOLISTHESIS, LUMBAR REGION 10/02/2018 RUDOLPH KENT DO Ot M46.86 OTHER SPECIFIED INFLAMMATORY SPONDYLOPAT 10/02/2018 RUDOLPH KENT DO Ot M47.27 OTHER SPONDYLOSIS WITH RADICULOPATHY, CATHLEEN 10/02/2018 RUDOLPH KENT DO, Ot M48.061 SPINAL STENOSIS, LUMBAR REGION WITHOUT N 10/02/2018 RUDOLPH KENT DO Ot M51.16 INTERVERTEBRAL DISC DISORDERS W RADICULO 10/02/2018 RUDOLPH KENT DO Ot M99.73 CONN TISS AND DISC STENOS OF INTVRT FORA 10/07/2018 MELISA DOHERTY MD, Ot Z01.81 8 ENCOUNTER FOR OTHER PREPROCEDURAL EXAMIN 10/08/2018 MELISA DOHERTY MD, Ot Z01.81 8 ENCOUNTER FOR OTHER PREPROCEDURAL EXAMIN 10/08/2018 MELISA DOHERTY MD, Ot E11.40 TYPE 2 DIABETES MELLITUS WITH DIABETIC N 10/08/2018 MELISA DOHERTY MD Ot E78.00 PURE HYPERCHOLESTEROLEMIA, UNSPECIFIED 10/08/2018 MELISA DOHERTY MD Ot F17.21 0 NICOTINE DEPENDENCE, CIGARETTES, UNCOMPL 10/08/2018 MELISA DOHERTY MD Ot G40.90 9 EPILEPSY, UNSP, NOT INTRACTABLE, WITHOUT 10/08/2018 MELISA DOHERTY MD Ot I11.0 HYPERTENSIVE HEART DISEASE WITH HEART FA 10/08/2018 MELISA DOHERTY MD Ot I50.9 HEART FAILURE, UNSPECIFIED 10/08/2018 MELISA DOHERTY MD Ot I87.2 VENOUS INSUFFICIENCY (CHRONIC) (PERIPHER 10/08/2018 MELISA DOHERTY MD, Ot J43.9 EMPHYSEMA, UNSPECIFIED 10/08/2018 MELISA DOHERTY MD Ot K21.9 GASTRO-ESOPHAGEAL REFLUX DISEASE WITHOUT 10/08/2018 MELISA DOHERTY MD Ot Z79.4 LANDSCAPE ARCHITECT AND PLANNER (CURRENT) USE OF INSULIN 10/08/2018 MELISA DOHERTY MD Ot Z79.82 LANDSCAPE ARCHITECT AND PLANNER (CURRENT) USE OF ASPIRIN 10/08/2018 MELISA DOHERTY MD Ot Z79.89 9 OTHER CORRECTION (CURRENT) DRUG THERAPY 10/09/2018 MELISA DOHERTY MD Ot E11.40 TYPE 2 DIABETES MELLITUS WITH DIABETIC N 10/09/2018 MELISA DOHERTY MD Ot E78.00 PURE HYPERCHOLESTEROLEMIA, UNSPECIFIED 10/09/2018 MELISA DOHERTY MD Ot F17.21 0 NICOTINE DEPENDENCE, CIGARETTES, UNCOMPL 10/09/2018 MELISA DOHERTY MD Ot G40.90 9 EPILEPSY, UNSP, NOT INTRACTABLE, WITHOUT 10/09/2018 MELISA DOHERTY MD Ot I11.0 HYPERTENSIVE HEART DISEASE WITH HEART FA 10/09/2018 MELISA DOHERTY MD Ot I50.9 HEART FAILURE, UNSPECIFIED 10/09/2018 MELISA DOHERTY MD Ot I87.2 VENOUS INSUFFICIENCY (CHRONIC) (PERIPHER 10/09/2018 MELISA DOHERTY MD Ot J43.9 EMPHYSEMA, UNSPECIFIED 10/09/2018 MELISA DOHERTY MD Ot K21.9 GASTRO-ESOPHAGEAL REFLUX DISEASE WITHOUT 10/09/2018 MELISA DOHERTY MD, Ot Z79.4 LANDSCAPE ARCHITECT AND PLANNER (CURRENT) USE OF INSULIN 10/09/2018 MELISA DOHERTY MD, Ot Z79.82 LANDSCAPE ARCHITECT AND PLANNER (CURRENT) USE OF ASPIRIN 10/09/2018 MELISA DOHERTY MD, Ot Z79.89 9 OTHER CORRECTION (CURRENT) DRUG THERAPY 10/11/2018 KENT RUDOLPH VILLALPANDO Ot S99.912A UNSPECIFIED INJURY OF LEFT ANKLE, INITIA 10/14/2018 MELISA DOHERTY MD Ot E11.40 TYPE 2 DIABETES MELLITUS WITH DIABETIC N 10/14/2018 MELISA DOHERTY MD Ot E78.00 PURE HYPERCHOLESTEROLEMIA, UNSPECIFIED 10/14/2018 MELISA DOHERTY MD Ot F17.21 0 NICOTINE DEPENDENCE, CIGARETTES, UNCOMPL 10/14/2018 MELISA DOHERTY MD Ot G40.90 9 EPILEPSY, UNSP, NOT INTRACTABLE, WITHOUT 10/14/2018 MELISA DOHERTY MD Ot I11.0 HYPERTENSIVE HEART DISEASE WITH HEART FA 10/14/2018 MELISA DOHERTY MD Ot I50.9 HEART FAILURE, UNSPECIFIED 10/14/2018 MELISA DOHERTY MD Ot I87.2 VENOUS INSUFFICIENCY (CHRONIC) (PERIPHER 10/14/2018 MELISA DOHERTY MD Ot J43.9 EMPHYSEMA, UNSPECIFIED 10/14/2018 MELISA DOHERTY MD Ot K21.9 GASTRO-ESOPHAGEAL REFLUX DISEASE WITHOUT 10/14/2018 MELISA DOHERTY MD Ot Z79.4 LANDSCAPE ARCHITECT AND PLANNER (CURRENT) USE OF INSULIN 10/14/2018 MELISA DOHERTY MD Ot Z79.82 CORRECTION (CURRENT) USE OF ASPIRIN 10/14/2018 MELISA DOHERTY MD Ot Z79.89 9 OTHER CORRECTION (CURRENT) DRUG THERAPY 10/15/2018 MELISA DOHERTY MD, Ot E11.40 TYPE 2 DIABETES MELLITUS WITH DIABETIC N 10/15/2018 MELISA DOHERTY MD Ot E78.00 PURE HYPERCHOLESTEROLEMIA, UNSPECIFIED 10/15/2018 MELISA DOHERTY MD Ot F17.21 0 NICOTINE DEPENDENCE, CIGARETTES, UNCOMPL 10/15/2018 MELISA DOHERTY MD Ot G40.90 9 EPILEPSY, UNSP, NOT INTRACTABLE, WITHOUT 10/15/2018 MELISA DOHERTY MD Ot I11.0 HYPERTENSIVE HEART DISEASE WITH HEART FA 10/15/2018 MELISA DOHERTY MD, Ot I50.9 HEART FAILURE, UNSPECIFIED 10/15/2018 MELISA DOHERTY MD, Ot I87.2 VENOUS INSUFFICIENCY (CHRONIC) (PERIPHER 10/15/2018 MELISA DOHERTY MD, Ot J43.9 EMPHYSEMA, UNSPECIFIED 10/15/2018 MELISA DOHERTY MD, Ot K21.9 GASTRO-ESOPHAGEAL REFLUX DISEASE WITHOUT 10/15/2018 MELISA DOHERTY MD, Ot Z79.4 LANDSCAPE ARCHITECT AND PLANNER (CURRENT) USE OF INSULIN 10/15/2018 MELISA DOHERTY MD, Ot Z79.82 LANDSCAPE ARCHITECT AND PLANNER (CURRENT) USE OF ASPIRIN 10/15/2018 MELISA DOHERTY MD, Ot Z79.89 9 OTHER LANDSCAPE ARCHITECT AND PLANNER (CURRENT) DRUG THERAPY 10/15/2018 RUDOLPH KENT DO, Ot M25.78 OSTEOPHYTE, VERTEBRAE 10/15/2018 RUDOLPH KNET DO, Ot M43.16 SPONDYLOLISTHESIS, LUMBAR REGION 10/15/2018 RUDOLPH KENT DO, Ot M46.86 OTHER SPECIFIED INFLAMMATORY SPONDYLOPAT 10/15/2018 RUDOLPH KENT DO, Ot M47.27 OTHER SPONDYLOSIS WITH RADICULOPATHY, CATHLEEN 10/15/2018 RUDOLPH KENT DO, Ot M48.061 SPINAL STENOSIS, LUMBAR REGION WITHOUT N 10/15/2018 RUDOLPH KENT DO, Ot M51.16 INTERVERTEBRAL DISC DISORDERS W RADICULO 10/15/2018 RUDOLPH KENT DO, Ot M99.73 CONN TISS AND DISC STENOS OF INTVRT FORA 11/14/2018 RUDOLPH KENT DO, Ot S99.912A UNSPECIFIED INJURY OF LEFT ANKLE, INITIA 12/09/2018 RUDOLPH KENT DO, Ot Z45.2 ENCOUNTER FOR ADJUSTMENT AND MANAGEMENT 12/19/2018 RUDOLPH KENT DO, Ot Z45.2 ENCOUNTER FOR ADJUSTMENT AND MANAGEMENT 01/17/2019 RUDOLPH KENT DO, Ot Z45.2 ENCOUNTER FOR ADJUSTMENT AND MANAGEMENT 02/06/2019 RUDOLPH KENT DO, Ot Z45.2 ENCOUNTER FOR ADJUSTMENT AND MANAGEMENT 02/07/2019 RUDOLPH KENT DO, Ot Z45.2 ENCOUNTER FOR ADJUSTMENT AND MANAGEMENT 02/14/2019 RUDOLPH KENT DO, Ot Z45.2 ENCOUNTER FOR ADJUSTMENT AND MANAGEMENT 03/11/2019 JUAN LICONA MD Ot E11. 51 TYPE 2 DIABETES W DIABETIC PERIPHERAL AN 03/11/2019 JUAN LICONA MD Ot E78. 2 MIXED HYPERLIPIDEMIA 03/11/2019 JUAN LICONA MD Ot R06. 09 OTHER FORMS OF DYSPNEA 03/11/2019 JUAN LICONA MD Ot R07. 89 OTHER CHEST PAIN 03/13/2019 RUDOLPH KENT DO Ot Z45.2 ENCOUNTER FOR ADJUSTMENT AND MANAGEMENT 03/14/2019 JUAN LICONA MD Ot E11. 51 TYPE 2 DIABETES W DIABETIC PERIPHERAL AN 03/14/2019 JUAN LICONA MD Ot E78. 2 MIXED HYPERLIPIDEMIA 03/14/2019 JUAN LICONA MD Ot R06. 09 OTHER FORMS OF DYSPNEA 03/14/2019 JUAN LICONA MD Ot R07. 89 OTHER CHEST PAIN 03/19/2019 JUAN LICONA MD Ot E11. 51 TYPE 2 DIABETES W DIABETIC PERIPHERAL AN 03/19/2019 JUAN LICONA MD Ot E53. 8 DEFICIENCY OF OTHER SPECIFIED B GROUP 03/19/2019 JUAN LICONA MD Ot E78. 2 MIXED HYPERLIPIDEMIA 03/19/2019 JUAN LICONA MD Ot F17.210 NICOTINE DEPENDENCE, CIGARETTES, UNCOMPL 03/19/2019 JUAN LICONA MD Ot F32. 9 MAJOR DEPRESSIVE DISORDER, SINGLE EPISOD 03/19/2019 JUAN LICONA MD Ot G89. 29 OTHER CHRONIC PAIN 03/19/2019 JUAN LICONA MD Ot I10 ESSENTIAL (PRIMARY) HYPERTENSION 03/19/2019 JUAN LICONA MD Ot I25. 10 ATHSCL HEART DISEASE OF [place] CORONARY 03/19/2019 JUAN LICONA MD Ot I65. 23 OCCLUSION AND STENOSIS OF BILATERAL PASCUAL 03/19/2019 JUAN LICONA MD Ot J44. 9 CHRONIC OBSTRUCTIVE PULMONARY DISEASE, U 03/19/2019 JUAN LICONA MD Ot M79. 7 FIBROMYALGIA 03/19/2019 JUAN LICONA MD Ot R06. 09 OTHER FORMS OF DYSPNEA 03/19/2019 JUAN LICONA MD Ot R07. 9 CHEST PAIN, UNSPECIFIED 03/19/2019 JUAN LICONA MD Ot R09. 02 HYPOXEMIA 03/19/2019 JUAN LICONA MD Ot R42 DIZZINESS AND GIDDINESS 03/19/2019 JUAN LICONA MD, Ot R55 SYNCOPE AND COLLAPSE 03/19/2019 JUAN LICONA MD Ot R94. 39 ABNORMAL RESULT OF OTHER CARDIOVASCULAR 03/19/2019 JUAN LICONA MD, Ot Z79. 4 CORRECTION (CURRENT) USE OF INSULIN 03/19/2019 JUAN LICONA MD Ot Z79. 82 LANDSCAPE ARCHITECT AND PLANNER (CURRENT) USE OF ASPIRIN 03/19/2019 JUAN LICONA MD, Ot Z79.899 OTHER LANDSCAPE ARCHITECT AND PLANNER (CURRENT) DRUG THERAPY 03/19/2019 JUAN LICONA MD, Ot Z82. 49 FAMILY HX OF ISCHEM HEART DIS AND OTH DI 03/19/2019 JUAN LICONA MD, Ot Z91. 19 PATIENT'S NONCOMPLIANCE W OTH MEDICAL TR 03/19/2019 JUAN LICONA MD, Ot Z99. 81 DEPENDENCE ON SUPPLEMENTAL OXYGEN 03/20/2019 JUAN LICONA MD Ot E11. 51 TYPE 2 DIABETES W DIABETIC PERIPHERAL AN 03/20/2019 JUAN LICONA MD Ot E53. 8 DEFICIENCY OF OTHER SPECIFIED B GROUP 03/20/2019 JUAN LICONA MD, Ot E78. 2 MIXED HYPERLIPIDEMIA 03/20/2019 JUAN LICONA MD, Ot F17.210 NICOTINE DEPENDENCE, CIGARETTES, UNCOMPL 03/20/2019 JUAN LICONA MD, Ot F32. 9 MAJOR DEPRESSIVE DISORDER, SINGLE EPISOD 03/20/2019 JUAN LICONA MD Ot G89. 29 OTHER CHRONIC PAIN 03/20/2019 JUAN LICONA MD Ot I10 ESSENTIAL (PRIMARY) HYPERTENSION 03/20/2019 JUAN LICONA MD, Ot I25. 10 ATHSCL HEART DISEASE OF [place] CORONARY 03/20/2019 JUAN LICONA MD Ot I65. 23 OCCLUSION AND STENOSIS OF BILATERAL PASCUAL 03/20/2019 JUAN LICONA MD, Ot J44. 9 CHRONIC OBSTRUCTIVE PULMONARY DISEASE, U 03/20/2019 JUAN LICONA MD Ot M79. 7 FIBROMYALGIA 03/20/2019 JUAN LICONA MD Ot R06. 09 OTHER FORMS OF DYSPNEA 03/20/2019 JUAN LICONA MD Ot R07. 9 CHEST PAIN, UNSPECIFIED 03/20/2019 JUAN LICONA MD Ot R09. 02 HYPOXEMIA 03/20/2019 JUAN LICONA MD, Ot R42 DIZZINESS AND GIDDINESS 03/20/2019 JUAN LICONA MD, Ot R55 SYNCOPE AND COLLAPSE 03/20/2019 JUAN LICONA MD Ot R94. 39 ABNORMAL RESULT OF OTHER CARDIOVASCULAR 03/20/2019 JUAN LICONA MD, Ot Z79. 4 LANDSCAPE ARCHITECT AND PLANNER (CURRENT) USE OF INSULIN 03/20/2019 JUAN LICONA MD Ot Z79. 82 LANDSCAPE ARCHITECT AND PLANNER (CURRENT) USE OF ASPIRIN 03/20/2019 JUAN LICONA MD, Ot Z79.899 OTHER LANDSCAPE ARCHITECT AND PLANNER (CURRENT) DRUG THERAPY 03/20/2019 JUAN LICONA MD, Ot Z82. 49 FAMILY HX OF ISCHEM HEART DIS AND OTH DI 03/20/2019 JUAN LICONA MD, Ot Z91. 19 PATIENT'S NONCOMPLIANCE W OT MEDICAL TR 03/20/2019 JUAN LICONA MD, Ot Z99. 81 DEPENDENCE ON SUPPLEMENTAL OXYGEN 03/25/2019 JUAN LICONA MD Ot E11. 51 TYPE 2 DIABETES W DIABETIC PERIPHERAL AN 03/25/2019 JUAN LICONA MD Ot E53. 8 DEFICIENCY OF OTHER SPECIFIED B GROUP 03/25/2019 JUAN LICONA MD, Ot E78. 2 MIXED HYPERLIPIDEMIA 03/25/2019 JUAN LICONA MD, Ot F17.210 NICOTINE DEPENDENCE, CIGARETTES, UNCOMPL 03/25/2019 JUAN LICONA MD, Ot F32. 9 MAJOR DEPRESSIVE DISORDER, SINGLE EPISOD 03/25/2019 JUAN LICONA MD Ot G89. 29 OTHER CHRONIC PAIN 03/25/2019 JUAN LICONA MD Ot I10 ESSENTIAL (PRIMARY) HYPERTENSION 03/25/2019 JUAN LICONA MD Ot I25. 10 ATHSCL HEART DISEASE OF [place] CORONARY 03/25/2019 JUAN LICONA MD Ot I65. 23 OCCLUSION AND STENOSIS OF BILATERAL PASCUAL 03/25/2019 JUAN LICONA MD, Ot J44. 9 CHRONIC OBSTRUCTIVE PULMONARY DISEASE, U 03/25/2019 JUAN LICONA MD Ot M79. 7 FIBROMYALGIA 03/25/2019 JUAN LICONA MD Ot R06. 09 OTHER FORMS OF DYSPNEA 03/25/2019 LIVAN MD, BASHAR J Ot R07. 9 CHEST PAIN, UNSPECIFIED 03/25/2019 JUAN LICONA MD Ot R09. 02 HYPOXEMIA 03/25/2019 JUAN LICONA MD, Ot R42 DIZZINESS AND GIDDINESS 03/25/2019 JUAN LICONA MD, Ot R55 SYNCOPE AND COLLAPSE 03/25/2019 JUAN LICONA MD Ot R94. 39 ABNORMAL RESULT OF OTHER CARDIOVASCULAR 03/25/2019 JUAN LICONA MD, Ot Z79. 4 LANDSCAPE ARCHITECT AND PLANNER (CURRENT) USE OF INSULIN 03/25/2019 JUAN LICONA MD, Ot Z79. 82 CORRECTION (CURRENT) USE OF ASPIRIN 03/25/2019 JUAN LICONA MD, Ot Z79.899 OTHER CORRECTION (CURRENT) DRUG THERAPY 03/25/2019 JUAN LICONA MD, Ot Z82. 49 FAMILY HX OF ISCHEM HEART DIS AND OTH DI 03/25/2019 JUAN LICONA MD, Ot Z91. 19 PATIENT'S NONCOMPLIANCE W OT MEDICAL TR 03/25/2019 JUAN LICONA MD Ot Z99. 81 DEPENDENCE ON SUPPLEMENTAL OXYGEN 04/01/2019 JUAN LICONA MD Ot E11. 51 TYPE 2 DIABETES W DIABETIC PERIPHERAL AN 04/01/2019 JUAN LICONA MD Ot E78. 2 MIXED HYPERLIPIDEMIA 04/01/2019 JUAN LICONA MD Ot R06. 09 OTHER FORMS OF DYSPNEA 04/01/2019 JUAN LICONA MD Ot R07. 89 OTHER CHEST PAIN 04/03/2019 JUAN LICONA MD Ot E11. 51 TYPE 2 DIABETES W DIABETIC PERIPHERAL AN 04/03/2019 JUAN LICONA MD Ot E78. 2 MIXED HYPERLIPIDEMIA 04/03/2019 JUAN LICONA MD Ot R06. 09 OTHER FORMS OF DYSPNEA 04/03/2019 JUAN LICONA MD Ot R07. 89 OTHER CHEST PAIN 04/10/2019 RUDOLPH KENT DO Ot Z45.2 ENCOUNTER FOR ADJUSTMENT AND MANAGEMENT 04/21/2019 JUAN LICONA MD Ot E11. 51 TYPE 2 DIABETES W DIABETIC PERIPHERAL AN 04/21/2019 JUAN LICONA MD Ot E78. 2 MIXED HYPERLIPIDEMIA 04/21/2019 JUAN LICONA MD Ot R06. 09 OTHER FORMS OF DYSPNEA 04/21/2019 JUAN LICONA MD J Ot R07. 89 OTHER CHEST PAIN 04/27/2019 RUDOLPH KENT DO Ot Z45.2 ENCOUNTER FOR ADJUSTMENT AND MANAGEMENT 05/02/2019 LUKASZ CROWLEY APRN Ot Z87.891 PERSONAL HISTORY OF NICOTINE DEPENDENCE 05/07/2019 LUKASZ CROWLEY 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 Ot F12.10 CANNABIS ABUSE, UNCOMPLICATED 05/07/2019 LUKASZ CROWLEY 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 Ot F17.210 NICOTINE DEPENDENCE, CIGARETTES, UNCOMPL 05/07/2019 LUKASZ CROWLEY 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 Ot G47.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 05/07/2019 LUKASZ CROWLEY 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 Ot J18.1 LOBAR PNEUMONIA, UNSPECIFIED ORGANISM 05/07/2019 LUKASZ CROWLEY 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 Ot J30.9 ALLERGIC RHINITIS, UNSPECIFIED 05/07/2019 LUKASZ CROWLEY 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 Ot J44.9 CHRONIC OBSTRUCTIVE PULMONARY DISEASE, U 05/07/2019 LUKASZ CROWLEY APRN Ot Z12.2 ENCNTR SCREEN FOR MALIGNANT NEOPLASM OF 05/07/2019 LUKASZ CROWLEY 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 Ot Z99.81 DEPENDENCE ON SUPPLEMENTAL OXYGEN 05/08/2019 RUDOLPH KENT DO Ot Z45.2 ENCOUNTER FOR ADJUSTMENT AND MANAGEMENT 05/13/2019 RUDOLPH KENT DO Ot Z45.2 ENCOUNTER FOR ADJUSTMENT AND MANAGEMENT 05/15/2019 RUDOLPH KENT DO Ot Z45.2 ENCOUNTER FOR ADJUSTMENT AND MANAGEMENT 06/03/2019 LUKASZ CROWLEY APRN Ot F12.10 CANNABIS ABUSE, UNCOMPLICATED 06/03/2019 LUKASZ CROWLEY 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 Ot F17.210 NICOTINE DEPENDENCE, CIGARETTES, UNCOMPL 06/03/2019 LUKASZ CROWLEY 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 Ot G47.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 06/03/2019 LUKASZ CROWLEY 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 Ot J18.1 LOBAR PNEUMONIA, UNSPECIFIED ORGANISM 06/03/2019 LUKASZ CROWLEY 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 Ot J30.9 ALLERGIC RHINITIS, UNSPECIFIED 06/03/2019 LUKASZ CROWLEY 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 Ot J44.9 CHRONIC OBSTRUCTIVE PULMONARY DISEASE, U 06/03/2019 LUKASZ CROWLEY 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 Ot Z12.2 ENCNTR SCREEN FOR MALIGNANT NEOPLASM OF 06/03/2019 LUKASZ CROWLEY APRN Ot Z99.81 DEPENDENCE ON SUPPLEMENTAL OXYGEN 06/05/2019 RUDOLPH KENT DO Ot 486 PNEUMONIA, ORGANISM NOS 06/05/2019 RUDOLPH KENT DO Ot 780.60 FEVER, UNSPECIFIED 06/05/2019 RUDOLPH KENT DO Ot 793.19 OTHER NONSPECIFIC ABNORMAL FINDING OF CATHLEEN 06/05/2019 CHA VERDUGO DO Ot V72.84 EXAM PRE-OPERATIVE NOS 06/05/2019 CHA VERDUGO DO Ot 787.20 DYSPHAGIA, UNSPECIFIED 06/05/2019 CAH VERDUGO DO Ot V72.84 EXAM PRE-OPERATIVE NOS 06/05/2019 CHA VERDUGO DO Ot V72.84 EXAM PRE-OPERATIVE NOS 06/05/2019 Ot V58.81 FIT /ADJ VASCULAR CATHETER 06/05/2019 CHA VERDUGO DO Ot 879.2 OPN WND ANTERIOR ABDOMEN 06/05/2019 CHA VERDUGO DO Ot E000.8 OTHER EXTERNAL CAUSE STATUS 06/05/2019 CHA VERDUGO DO Ot E928.9 ACCIDENT NOS 06/05/2019 JUAN LICONA MD Ot 272. 4 HYPERLIPIDEMIA NEC/NOS 06/05/2019 JUAN LICONA MD Ot 397. 0 TRICUSPID VALVE DISEASE 06/05/2019 JUAN LICONA MD Ot 424. 0 MITRAL VALVE DISORDER 06/05/2019 JUAN LICONA MD Ot 786. 09 RESPIRATORY ABNORM NEC 06/05/2019 JUAN LICONA MD Ot 786. 50 CHEST PAIN NOS 06/05/2019 JUAN LICONA MD Ot V46. 2 SUPPLEMENTAL OXYGEN 06/05/2019 JUAN LICONA MD Ot 272. 4 HYPERLIPIDEMIA NEC/NOS 06/05/2019 JUAN LICONA MD Ot 786. 09 RESPIRATORY ABNORM NEC 06/05/2019 JUAN LICONA MD Ot 786. 50 CHEST PAIN NOS 06/05/2019 JUAN LICONA MD Ot V46. 2 SUPPLEMENTAL OXYGEN 06/05/2019 RUDOLPH KENT DO Ot V76.12 OT SCREEN MAMMO-MALIGN NEOPLASM OF [place] 06/05/2019 QING TAO DO Ot 305. 1 TOBACCO USE DISORDER 06/05/2019 QING TAO DO Ot 496 CHR AIRWAY OBSTRUCT NEC 06/05/2019 QING TAO DO Ot 786. 09 RESPIRATORY ABNORM NEC 06/05/2019 KASIE DPM, ANDREA Q Ot 355. 5 TARSAL TUNNEL SYNDROME 06/05/2019 CHA VERDUGO DO Ot V72.84 EXAM PRE-OPERATIVE NOS 06/05/2019 CHA VERDUGO DO Ot 530.10 ESOPHAGITIS NOS 06/05/2019 CHA VERDUGO DO Ot 553.3 DIAPHRAGMATIC HERNIA 06/05/2019 CHA VERDUGO DO Ot 787.20 DYSPHAGIA, UNSPECIFIED 06/05/2019 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 Ot 486 PNEUMONIA, ORGANISM NOS 06/05/2019 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 Ot 789.00 ABDOMINAL PAIN, UNSPECIFIED SITE 06/05/2019 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 Ot 959.6 HIP THIGH INJURY NOS 06/05/2019 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 Ot E000.8 OTHER EXTERNAL CAUSE STATUS 06/05/2019 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 Ot E849.4 ACCID IN RECREATION AREA 06/05/2019 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 Ot E888.9 FALL NOS 06/05/2019 PETRA KEARNEY DC Ot 724. 5 BACKACHE NOS 06/05/2019 PETRA KEARNEY DC Ot 786. 50 CHEST PAIN NOS 06/05/2019 PETRA KEARNEY DC Ot 724. 1 PAIN IN THORACIC SPINE 06/05/2019 PETRA KEARNEY DC Ot 786. 50 CHEST PAIN NOS 06/05/2019 RUDOLPH KENT DO Ot 414.00 CORON ATHEROSCLER NOS TYPE VESSEL, NATIV 06/05/2019 RUDOLPH KENT DO Ot 786.50 CHEST PAIN NOS 06/05/2019 RUDOLPH KENT DO Ot I25.10 ATHSCL HEART DISEASE OF [place] CORONARY 06/05/2019 RUDOLPH KENT DO Ot R07.9 CHEST PAIN, UNSPECIFIED 06/05/2019 CHA VERDUGO DO Ot R10.9 UNSPECIFIED ABDOMINAL PAIN 06/05/2019 CHA VERDUGO DO Ot Z01.818 ENCOUNTER FOR OTHER PREPROCEDURAL EXAMIN 06/05/2019 LUCINA DO, CHANDROUTIE Ot 553.20 VENTRAL HERNIA NOS 06/05/2019 LUCINA DO DIANNKASH Ot V81.5 SCREEN FOR NEPHROPATHY 06/05/2019 LUKASZ CROWLEY APRN Ot F17.210 NICOTINE DEPENDENCE, CIGARETTES, UNCOMPL 06/05/2019 LUKASZ CROWLEY APRN Ot J44.9 CHRONIC OBSTRUCTIVE PULMONARY DISEASE, U 06/05/2019 LUKASZ CROWLEY APRN Ot R06.00 DYSPNEA, UNSPECIFIED 06/05/2019 FRANDY DE LA ROSA Ot E11.9 TYPE 2 DIABETES MELLITUS WITHOUT COMPLIC 06/05/2019 FRANDY DE LA ROSA Ot E78.2 MIXED HYPERLIPIDEMIA 06/05/2019 FRANDY DE LA ROSA Ot I10 ESSENTIAL (PRIMARY) HYPERTENSION 06/05/2019 FRANDY DE LA ROSA Ot I25.10 ATHSCL HEART DISEASE OF [place] CORONARY 06/05/2019 FRANDY DE LA ROSA Ot E11.9 TYPE 2 DIABETES MELLITUS WITHOUT COMPLIC 06/05/2019 FRANDY DE LA ROSA Ot E78.2 MIXED HYPERLIPIDEMIA 06/05/2019 FRANDY DE LA ROSA Ot I10 ESSENTIAL (PRIMARY) HYPERTENSION 06/05/2019 FRANDY DE LA ROSA Ot I25.10 ATHSCL HEART DISEASE OF [place] CORONARY 06/05/2019 LUKASZ CROWLEY APRN Ot F17.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, UNSPECIFIED, UNCOMP 06/05/2019 LUKASZ CROWLEY APRN Ot J44.9 CHRONIC OBSTRUCTIVE PULMONARY DISEASE, U 06/05/2019 RUDOLPH KENT DO Ot M94.8X6 OTHER SPECIFIED DISORDERS OF CARTILAGE, 06/05/2019 RUDOLPH KENT DO, Ot S83.242A OTH TEAR OF MEDIAL MENISCUS, CURRENT INJ 06/05/2019 RUDOLPH KENT DO, Ot S83.282A OTH TEAR OF LAT MENSC, CURRENT INJURY, L 06/05/2019 RUDOLPH KENT DO, Ot X58.XXXA EXPOSURE TO OTHER SPECIFIED FACTORS, INI 06/05/2019 RUDOLPH KENT DO Ot Y99.8 OTHER EXTERNAL CAUSE STATUS 06/05/2019 RUDOLPH KENT DO Ot Z12.31 ENCNTR SCREEN MAMMOGRAM FOR MALIGNANT NE 06/05/2019 RUDOLPH KENT DO, Ot M40.209 UNSPECIFIED KYPHOSIS, SITE UNSPECIFIED 06/05/2019 RUDOLPH KENT DO, Ot M85.852 [facility] DISRD OF BONE DENSITY AND STRUCTURE, 06/05/2019 RUDOLPH KENT DO, Ot Z78.0 ASYMPTOMATIC MENOPAUSAL STATE 06/05/2019 EARNESTINE ALEXANDRE, RAY Davis Ot L98 .9 DISORDER OF THE SKIN AND SUBCUTANEOUS TI 06/05/2019 RUDOLPH KENT DO, Ot M77.32 CALCANEAL SPUR, LEFT FOOT 06/05/2019 RUDOLPH KENT DO, Ot S79.912A UNSPECIFIED INJURY OF LEFT HIP, INITIAL 06/05/2019 RUDOLPH KENT DO, Ot W19.XXXA UNSPECIFIED FALL, INITIAL ENCOUNTER 06/05/2019 RUDOLPH KENT DO, Ot F09 UNSP MENTAL DISORDER DUE TO KNOWN PHYSIO 06/05/2019 RUDOLPH KENT DO, Ot G43.909 MIGRAINE, UNSP, NOT INTRACTABLE, WITHOUT 06/05/2019 RUDOLPH KENT DO, Ot W19.XXXA UNSPECIFIED FALL, INITIAL ENCOUNTER 06/05/2019 RUDOLPH KENT DO, Ot M25.78 OSTEOPHYTE, VERTEBRAE 06/05/2019 RUDOLPH KENT DO, Ot M43.16 SPONDYLOLISTHESIS, LUMBAR REGION 06/05/2019 RUDOLPH KENT DO, Ot M46.86 OTHER SPECIFIED INFLAMMATORY SPONDYLOPAT 06/05/2019 RUDOLPH KENT DO, Ot M47.27 OTHER SPONDYLOSIS WITH RADICULOPATHY, CATHLEEN 06/05/2019 RUDOLPH KENT DO, Ot M48.061 SPINAL STENOSIS, LUMBAR REGION WITHOUT N 06/05/2019 RUDOLPH KENT DO, Ot M51.16 INTERVERTEBRAL DISC DISORDERS W RADICULO 06/05/2019 RUDOLPH KENT DO, Ot M99.73 CONN TISS AND DISC STENOS OF INTVRT FORA 06/05/2019 RUDOLPH KENT DO, Ot S99.912A UNSPECIFIED INJURY OF LEFT ANKLE, INITIA 06/05/2019 JUAN LICONA MD Ot E11. 51 TYPE 2 DIABETES W DIABETIC PERIPHERAL AN 06/05/2019 JUAN LICONA MD Ot E78. 2 MIXED HYPERLIPIDEMIA 06/05/2019 JUAN LICONA MD Ot R06. 09 OTHER FORMS OF DYSPNEA 06/05/2019 JUAN LICONA MD Ot R07. 89 OTHER CHEST PAIN 06/05/2019 JUAN LICONA MD Ot E11. 51 TYPE 2 DIABETES W DIABETIC PERIPHERAL AN 06/05/2019 JUAN LICONA MD Ot E78. 2 MIXED HYPERLIPIDEMIA 06/05/2019 JUAN LICONA MD Ot R06. 09 OTHER FORMS OF DYSPNEA 06/05/2019 JUAN LICONA MD Ot R07. 89 OTHER CHEST PAIN 06/05/2019 LUKASZ CROWLEY 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 Ot F12.10 CANNABIS ABUSE, UNCOMPLICATED 06/05/2019 LUKASZ CROWLEY 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 Ot F17.210 NICOTINE DEPENDENCE, CIGARETTES, UNCOMPL 06/05/2019 LUKASZ CROWLEY APRN Ot G47.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 06/05/2019 LUKASZ CROWLEY 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 Ot J18.1 LOBAR PNEUMONIA, UNSPECIFIED ORGANISM 06/05/2019 LUKASZ CROWLEY APRN Ot J30.9 ALLERGIC RHINITIS, UNSPECIFIED 06/05/2019 LUKASZ CROWLEY 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 Ot J44.9 CHRONIC OBSTRUCTIVE PULMONARY DISEASE, U 06/05/2019 LUKASZ CROWLEY APRN Ot Z12.2 ENCNTR SCREEN FOR MALIGNANT NEOPLASM OF 06/05/2019 LUKASZ CROWLEY APRN Ot Z99.81 DEPENDENCE ON SUPPLEMENTAL OXYGEN 06/05/2019 RUDOLPH KENT DO Ot Z45.2 ENCOUNTER FOR ADJUSTMENT AND MANAGEMENT 06/05/2019 RUDOLPH KENT DO Ot Z45.2 ENCOUNTER FOR ADJUSTMENT AND MANAGEMENT 06/25/2019 LUKASZ CROWLEY 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 Ot F12.10 CANNABIS ABUSE, UNCOMPLICATED 06/25/2019 LUKASZ CROWLEY APRN Ot F17.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, UNSPECIFIED, UNCOMP 06/25/2019 LUKASZ CROWLEY 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 Ot G47.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 06/25/2019 LUKASZ CROWLEY 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 Ot J30.9 ALLERGIC RHINITIS, UNSPECIFIED 06/25/2019 LUKASZ CROWLEY 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 Ot J42 UNSPECIFIED CHRONIC BRONCHITIS 06/25/2019 LUKASZ CROWELY 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 Ot J44.9 CHRONIC OBSTRUCTIVE PULMONARY DISEASE, U 06/25/2019 LUKASZ CROWLEY APRN Ot Z99.81 DEPENDENCE ON SUPPLEMENTAL OXYGEN 06/25/2019 QING TAO DO Ot F12. 10 CANNABIS ABUSE, UNCOMPLICATED 06/25/2019 QING TAO DO Ot F17.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, UNSPECIFIED, UNCOMP 06/25/2019 QING TAO DO Ot J30. 9 ALLERGIC RHINITIS, UNSPECIFIED 06/25/2019 QING TAO DO Ot J42 UNSPECIFIED CHRONIC BRONCHITIS 06/25/2019 QING TAO DO Ot J98. 4 OTHER DISORDERS OF LUNG 06/25/2019 QING TAO DO Ot R06. 00 DYSPNEA, UNSPECIFIED 06/25/2019 QING TAO DO Ot R09. 02 HYPOXEMIA 06/25/2019 QING TAO DO Ot R91. 1 SOLITARY PULMONARY NODULE 06/25/2019 QING TAO DO Ot Z79. 82 LANDSC[employer]ECT AND [employer]ANNER (CURRENT) USE OF ASPIRIN 06/25/2019 QING TAO DO Ot Z79. 84 [employer] (CURRENT) USE OF ORAL HYPOGLYC 06/25/2019 QING TAO DO, Ot Z79.899 OTHER CORRECTION (CURRENT) DRUG THERAPY 06/25/2019 QING TAO DO Ot Z88. 1 ALLERGY STATUS TO OTHER ANTIBIOTIC AGENT 06/25/2019 QING TAO DO Ot Z91.041 RADIOGRAPHIC DYE ALLERGY STATUS 07/02/2019 QING TAO DO Ot F12. 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 9 ALLERGIC RHINITIS, UNSPECIFIED 07/02/2019 QING TAO DO Ot J42 UNSPECIFIED CHRONIC BRONCHITIS 07/02/2019 QING TAO DO Ot J98. 4 OTHER DISORDERS OF LUNG 07/02/2019 QING TAO DO Ot R06. 00 DYSPNEA, UNSPECIFIED 07/02/2019 QING TAO DO Ot R09. 02 HYPOXEMIA 07/02/2019 QING TOA DO Ot R91. 1 SOLITARY PULMONARY NODULE 07/02/2019 QING TAO DO Ot Z79. 82 LANDSCAPE ARCHITECT AND PLANNER (CURRENT) USE OF ASPIRIN 07/02/2019 AISLINN DO QING Morales Ot Z79. 84 CORRECTION (CURRENT) USE OF ORAL HYPOGLYC 07/02/2019 QING TAO DO Ot Z79.899 OTHER LANDSCAPE ARCHITECT AND PLANNER (CURRENT) DRUG THERAPY 07/02/2019 QING TAO DO Ot Z88. 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 07/08/2019 LUKASZ CROWLEY APRN Ot J30.9 ALLERGIC RHINITIS, UNSPECIFIED 07/08/2019 LUKASZ CROWLEY APRN Ot J42 UNSPECIFIED CHRONIC BRONCHITIS 07/08/2019 LUKASZ CROWLEY APRN Ot J44.9 CHRONIC OBSTRUCTIVE PULMONARY DISEASE, U 07/08/2019 LUKASZ CROWLEY APRN Ot Z99.81 DEPENDENCE ON SUPPLEMENTAL OXYGEN 07/16/2019 RUDOLPH KENT DO Ot 486 PNEUMONIA, ORGANISM NOS 07/16/2019 RUDOLPH KENT DO Ot 780.60 FEVER, UNSPECIFIED 07/16/2019 RUDOLPH KENT DO Ot 793.19 OTHER NONSPECIFIC ABNORMAL FINDING OF CATHLEEN 07/16/2019 CHA VERDUGO DO Ot V72.84 EXAM PRE-OPERATIVE NOS 07/16/2019 CHA VERDUGO DO Ot 787.20 DYSPHAGIA, UNSPECIFIED 07/16/2019 CHA VERDUGO DO Ot V72.84 EXAM PRE-OPERATIVE NOS 07/16/2019 CHA VERDUGO DO Ot V72.84 EXAM PRE-OPERATIVE NOS 07/16/2019 Ot V58.81 FIT /ADJ VASCULAR CATHETER 07/16/2019 CHA VERDUGO DO Ot 879.2 OPN WND ANTERIOR ABDOMEN 07/16/2019 CHA VERDUGO DO Ot E000.8 OTHER EXTERNAL CAUSE STATUS 07/16/2019 CHA VERDUGO DO Ot E928.9 ACCIDENT NOS 07/16/2019 JUAN LICONA MD Ot 272. 4 HYPERLIPIDEMIA NEC/NOS 07/16/2019 JUAN LICONA MD Ot 397. 0 TRICUSPID VALVE DISEASE 07/16/2019 JUAN LICONA MD Ot 424. 0 MITRAL VALVE DISORDER 07/16/2019 JUAN LICONA MD Ot 786. 09 RESPIRATORY ABNORM NEC 07/16/2019 JUAN LICONA MD Ot 786. 50 CHEST PAIN NOS 07/16/2019 JUAN LICONA MD Ot V46. 2 SUPPLEMENTAL OXYGEN 07/16/2019 JUAN LICONA MD Ot 272. 4 HYPERLIPIDEMIA NEC/NOS 07/16/2019 JUAN LICONA MD Ot 786. 09 RESPIRATORY ABNORM NEC 07/16/2019 JUAN LICONA MD Ot 786. 50 CHEST PAIN NOS 07/16/2019 JUAN LICONA MD Ot V46. 2 SUPPLEMENTAL OXYGEN 07/16/2019 RUDOLPH KENT DO Ot V76.12 OTH SCREEN MAMMO-MALIGN NEOPLASM OF [place] 07/16/2019 QING TAO DO Ot 305. 1 TOBACCO USE DISORDER 07/16/2019 QING TAO DO Ot 496 CHR AIRWAY OBSTRUCT NEC 07/16/2019 QING TAO DO Ot 786. 09 RESPIRATORY ABNORM NEC 07/16/2019 KASIE DPM, ANDREA Q Ot 355. 5 TARSAL TUNNEL SYNDROME 07/16/2019 CHA VERDUGO DO Ot V72.84 EXAM PRE-OPERATIVE NOS 07/16/2019 CHA VERDUGO DO Ot 530.10 ESOPHAGITIS NOS 07/16/2019 CHA VERDUGO DO Ot 553.3 DIAPHRAGMATIC HERNIA 07/16/2019 CHA VERDUGO DO Ot 787.20 DYSPHAGIA, UNSPECIFIED 07/16/2019 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 Ot 486 PNEUMONIA, ORGANISM NOS 07/16/2019 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 Ot 789.00 ABDOMINAL PAIN, UNSPECIFIED SITE 07/16/2019 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 Ot 959.6 HIP THIGH INJURY NOS 07/16/2019 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 Ot E000.8 OTHER EXTERNAL CAUSE STATUS 07/16/2019 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 Ot E849.4 ACCID IN RECREATION AREA 07/16/2019 YOLIJIMMY JOSE Ot E888.9 FALL NOS 08/01/2019 RUDOLPH KENT DO, Ot Z45.2 ENCOUNTER FOR ADJUSTMENT AND MANAGEMENT 08/19/2019 RUDOLPH KENT DO, Ot Z45.2 ENCOUNTER FOR ADJUSTMENT AND MANAGEMENT 09/03/2019 RUDOLPH KENT DO, Ot Z45.2 ENCOUNTER FOR ADJUSTMENT AND MANAGEMENT 09/04/2019 RUDOLPH KENT DO, Ot Z45.2 ENCOUNTER FOR ADJUSTMENT AND MANAGEMENT 10/25/2019 LUKAS NUNES MD Ot E11. 40 TYPE 2 DIABETES MELLITUS WITH DIABETIC N 10/25/2019 LUKAS NUNES MD Ot E78. 00 PURE HYPERCHOLESTEROLEMIA, UNSPECIFIED 10/25/2019 LUKAS NUNES MD Ot F32. 9 MAJOR DEPRESSIVE DISORDER, SINGLE EPISOD 10/25/2019 LUKAS NUNES MD, Ot F41. 9 ANXIETY DISORDER, UNSPECIFIED 10/25/2019 LUKAS NUNES MD Ot G43.909 MIGRAINE, UNSP, NOT INTRACTABLE, WITHOUT 10/25/2019 LUKAS NUNES MD Ot G89. 29 OTHER CHRONIC PAIN 10/25/2019 LUKAS NUNES MD Ot I11. 0 HYPERTENSIVE HEART DISEASE WITH HEART FA 10/25/2019 LUKAS NUNES MD Ot I50. 9 HEART FAILURE, UNSPECIFIED 10/25/2019 LUKAS NUNES MD, Ot J44. 9 CHRONIC OBSTRUCTIVE PULMONARY DISEASE, U 10/25/2019 LUKAS NUNES MD Ot J69. 0 PNEUMONITIS DUE TO INHALATION OF FOOD AN 10/25/2019 LUKAS NUNES MD Ot M54. 9 DORSALGIA, UNSPECIFIED 10/25/2019 LUKAS NUNES MD Ot R40.2132 COMA SCALE, EYES OPEN, TO SOUND, EMR 10/25/2019 LUKAS NUNES MD Ot R40.2222 COMA SCALE, BEST VERB, INCOMPREHENSIBLE 10/25/2019 LUKAS NUNES MD Ot R40.2352 COMA SCALE, BEST MOTOR RESPONSE, LOCALIZ 10/25/2019 LUKAS NUNES MD Ot T40.601A POISONING BY UNSP NARCOTICS, ACCIDENTAL, 10/25/2019 LUKAS NUNES MD Ot Z79. 4 CORRECTION (CURRENT) USE OF INSULIN 10/25/2019 LUKAS NUNES MD Ot Z79. 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, CERVICOTHORACIC REGIO 11/10/2019 SARAH ROBERTSON Ot M48.02 SPINAL STENOSIS, CERVICAL REGION 11/10/2019 SARAH ROBERTSON Ot M50.11 CERV DISC DISORDER WITH RADICULOPATHY, H 11/10/2019 SARAH ROBERTSON Ot M50.121 CERVICAL DISC DISORDER AT C4-C5 LEVEL WI 11/11/2019 SARAH ROBERTSON Ot 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, CERVICOTHORACIC REGIO 11/11/2019 SARAH ROBERTSON Ot M48.02 SPINAL STENOSIS, CERVICAL REGION 11/11/2019 SARAH ROBERTSON Ot M50.11 CERV DISC DISORDER WITH RADICULOPATHY, H 11/11/2019 SARAH ROBERTSON Ot M50.121 CERVICAL DISC DISORDER AT C4-C5 LEVEL WI 11/18/2019 SARAH ROBERTSON Ot 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, CERVICOTHORACIC REGIO 11/18/2019 SARAH ROBERTSON Ot M48.02 SPINAL STENOSIS, CERVICAL REGION 11/18/2019 SARAH ROBERTSON Ot M50.11 CERV DISC DISORDER WITH RADICULOPATHY, H 11/18/2019 SARAH ROBERTSON Ot M50.121 CERVICAL DISC DISORDER AT C4-C5 LEVEL WI 12/08/2019 Ot V58.81 FIT /ADJ VASCULAR CATHETER 12/08/2019 LUKASZ CROWLEY APRN Ot F17.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, UNSPECIFIED, UNCOMP 12/08/2019 LUKASZ CROWLEY APRN Ot J44.9 CHRONIC OBSTRUCTIVE PULMONARY DISEASE, U 12/08/2019 RUDOLPH KENT DO Ot Z45.2 ENCOUNTER FOR ADJUSTMENT AND MANAGEMENT 12/08/2019 RAY MACKEY MD, Ot Z01.818 ENCOUNTER FOR OTHER PREPROCEDURAL EXAMIN 12/10/2019 RAY MACKEY MD, Ot Z01.818 ENCOUNTER FOR OTHER PREPROCEDURAL EXAMIN 12/10/2019 RAY MACKEY MD, Ot E11.40 TYPE 2 DIABETES MELLITUS WITH DIABETIC N 12/10/2019 RAY MACKEY MD, Ot E66.9 OBESITY, UNSPECIFIED 12/10/2019 RAY MACKEY MD, Ot F17.210 NICOTINE DEPENDENCE, CIGARETTES, UNCOMPL 12/10/2019 RAY MACKEY MD, Ot G43.909 MIGRAINE, UNSP, NOT INTRACTABLE, WITHOUT 12/10/2019 RAY MACKEY MD, Ot G56.01 CARPAL TUNNEL SYNDROME, RIGHT UPPER LIMB 12/10/2019 RAY MACKEY MD, Ot G56.21 LESION OF ULNAR NERVE, RIGHT UPPER LIMB 12/10/2019 RAY MACKEY MD, Ot I25.10 ATHSCL HEART DISEASE OF [place] CORONARY 12/10/2019 RAY MACKEY MD, Ot I50.9 HEART FAILURE, UNSPECIFIED 12/10/2019 RAY MACKEY MD, Ot J44.9 CHRONIC OBSTRUCTIVE PULMONARY DISEASE, U 12/10/2019 RAY MACKEY MD, Ot M79.7 FIBROMYALGIA 12/10/2019 RAY MACKEY MD, Ot Z68.30 BODY MASS INDEX (BMI) 30.0-30.9, ADULT 12/10/2019 RAY MACKEY MD, Ot Z79.82 LANDSCAPE ARCHITECT AND PLANNER (CURRENT) USE OF ASPIRIN 12/10/2019 RAY MACKEY MD, Ot Z79.84 CORRECTION (CURRENT) USE OF ORAL HYPOGLYC 12/10/2019 RAY MACKEY MD, Ot Z79.899 OTHER LANDSCAPE ARCHITECT AND PLANNER (CURRENT) DRUG THERAPY 12/10/2019 RAY MACKEY MD, Ot Z82.49 FAMILY HX OF ISCHEM HEART DIS AND OTH DI 12/10/2019 RAY MACKEY MD, Ot Z83.3 FAMILY HISTORY OF DIABETES MELLITUS 12/10/2019 RAY MACKEY MD, Ot Z88.8 ALLERGY STATUS TO [facility] DRUG/MEDS/BIOL SUB 12/10/2019 RAY MACKEY MD, Ot Z90.49 ACQUIRED ABSENCE OF OTHER SPECIFIED PART 12/10/2019 RAY MACKEY MD, Ot Z90.710 ACQUIRED ABSENCE OF BOTH CERVIX AND UTER 12/10/2019 RAY MACKEY MD, Ot Z90.89 ACQUIRED ABSENCE OF OTHER ORGANS 12/10/2019 RAY MACKEY MD, Ot Z91.041 RADIOGRAPHIC DYE ALLERGY STATUS 12/12/2019 RAY MACKEY MD, Ot E11.40 TYPE 2 DIABETES MELLITUS WITH DIABETIC N 12/12/2019 RAY MACKEY MD, Ot E66.9 OBESITY, UNSPECIFIED 12/12/2019 RAY MACKEY MD, Ot F17.210 NICOTINE DEPENDENCE, CIGARETTES, UNCOMPL 12/12/2019 RAY MACKEY MD, Ot G43.909 MIGRAINE, UNSP, NOT INTRACTABLE, WITHOUT 12/12/2019 RAY MACKEY MD, Ot G56.01 CARPAL TUNNEL SYNDROME, RIGHT UPPER LIMB 12/12/2019 RAY MACKEY MD, Ot G56.21 LESION OF ULNAR NERVE, RIGHT UPPER LIMB 12/12/2019 RAY MACKEY MD, Ot I25.10 ATHSCL HEART DISEASE OF [place] CORONARY 12/12/2019 RAY MACKEY MD, Ot I50.9 HEART FAILURE, UNSPECIFIED 12/12/2019 RAY MACKEY MD, Ot J44.9 CHRONIC OBSTRUCTIVE PULMONARY DISEASE, U 12/12/2019 RAY MACKEY MD, Ot M79.7 FIBROMYALGIA 12/12/2019 RAY MACKEY MD, Ot Z68.30 BODY MASS INDEX (BMI) 30.0-30.9, ADULT 12/12/2019 RAY MACKEY MD, Ot Z79.82 LANDSCAPE ARCHITECT AND PLANNER (CURRENT) USE OF ASPIRIN 12/12/2019 RAY MACKEY MD, Ot Z79.84 LANDSCAPE ARCHITECT AND PLANNER (CURRENT) USE OF ORAL HYPOGLYC 12/12/2019 RAY MACKEY MD, Ot Z79.899 OTHER LANDSCAPE ARCHITECT AND PLANNER (CURRENT) DRUG THERAPY 12/12/2019 RAY MACKEY MD, Ot Z82.49 FAMILY HX OF ISCHEM HEART DIS AND OTH DI 12/12/2019 RAY MACKEY MD, Ot Z83.3 FAMILY HISTORY OF DIABETES MELLITUS 12/12/2019 RAY MACKEY MD, Ot Z88.8 ALLERGY STATUS TO [facility] DRUG/MEDS/BIOL SUB 12/12/2019 RAY MACKEY MD, Ot Z90.49 ACQUIRED ABSENCE OF OTHER SPECIFIED PART 12/12/2019 RAY MACKEY MD, Ot Z90.710 ACQUIRED ABSENCE OF BOTH CERVIX AND UTER 12/12/2019 RAY MACKEY MD, Ot Z90.89 ACQUIRED ABSENCE OF OTHER ORGANS 12/12/2019 RAY MACKEY MD, Ot Z91.041 RADIOGRAPHIC DYE ALLERGY STATUS 12/15/2019 RAY MACKEY MD, Ot E11.40 TYPE 2 DIABETES MELLITUS WITH DIABETIC N 12/15/2019 RAY MACKEY MD, Ot E66.9 OBESITY, UNSPECIFIED 12/15/2019 RAY MACKEY MD, Ot F17.210 NICOTINE DEPENDENCE, CIGARETTES, UNCOMPL 12/15/2019 RAY MACKEY MD, Ot G43.909 MIGRAINE, UNSP, NOT INTRACTABLE, WITHOUT 12/15/2019 RAY MACKEY MD, Ot G56.01 CARPAL TUNNEL SYNDROME, RIGHT UPPER LIMB 12/15/2019 RAY MACKEY MD, Ot G56.21 LESION OF ULNAR NERVE, RIGHT UPPER LIMB 12/15/2019 RAY MACKEY MD, Ot I25.10 ATHSCL HEART DISEASE OF [place] CORONARY 12/15/2019 RAY MACKEY MD, Ot I50.9 HEART FAILURE, UNSPECIFIED 12/15/2019 RAY MACKEY MD, Ot J44.9 CHRONIC OBSTRUCTIVE PULMONARY DISEASE, U 12/15/2019 RAY MACKEY MD, Ot M79.7 FIBROMYALGIA 12/15/2019 RAY MACKEY MD, Ot Z68.30 BODY MASS INDEX (BMI) 30.0-30.9, ADULT 12/15/2019 RAY MACKEY MD, Ot Z79.82 LANDSCAPE ARCHITECT AND PLANNER (CURRENT) USE OF ASPIRIN 12/15/2019 RAY MACKEY MD, Ot Z79.84 LANDSCAPE ARCHITECT AND PLANNER (CURRENT) USE OF ORAL HYPOGLYC 12/15/2019 RAY MACKEY MD, Ot Z79.899 OTHER CORRECTION (CURRENT) DRUG THERAPY 12/15/2019 RAY MACKEY MD, Ot Z82.49 FAMILY HX OF ISCHEM HEART DIS AND OTH DI 12/15/2019 RAY MACKEY MD, Ot Z83.3 FAMILY HISTORY OF DIABETES MELLITUS 12/15/2019 RAY MACKEY MD, Ot Z88.8 ALLERGY STATUS TO [facility] DRUG/MEDS/BIOL SUB 12/15/2019 RAY MACKEY MD, Ot Z90.49 ACQUIRED ABSENCE OF OTHER SPECIFIED PART 12/15/2019 RAY MACKEY MD, Ot Z90.710 ACQUIRED ABSENCE OF BOTH CERVIX AND UTER 12/15/2019 RAY MACKEY MD, Ot Z90.89 ACQUIRED ABSENCE OF OTHER ORGANS 12/15/2019 RAY MACKEY MD, Ot Z91.041 RADIOGRAPHIC DYE ALLERGY STATUS 12/21/2019 LUKAS NUNES MD Ot E11. 9 TYPE 2 DIABETES MELLITUS WITHOUT COMPLIC 12/21/2019 LUKAS NUNES MD, Ot E66. 9 OBESITY, UNSPECIFIED 12/21/2019 LUKAS NUNES MD, Ot F32. 9 MAJOR DEPRESSIVE DISORDER, SINGLE EPISOD 12/21/2019 LUKAS NUNES MD, Ot F41. 9 ANXIETY DISORDER, UNSPECIFIED 12/21/2019 LUKAS NUNES MD Ot G89. 29 OTHER CHRONIC PAIN 12/21/2019 LUKAS NUNES MD, Ot J43. 9 EMPHYSEMA, UNSPECIFIED 12/21/2019 LUKAS NUNES MD, Ot J96. 21 ACUTE AND CHRONIC RESPIRATORY FAILURE WI 12/21/2019 LUKAS NUNES MD, Ot J96. 22 ACUTE AND CHRONIC RESPIRATORY FAILURE WI 12/21/2019 LUKAS NUNES MD, Ot K21. 9 GASTRO-ESOPHAGEAL REFLUX DISEASE WITHOUT 12/21/2019 LUKAS NUNES MD, Ot M54. 9 DORSALGIA, UNSPECIFIED 12/21/2019 LUKAS NUNES MD, Ot Z68. 27 BODY MASS INDEX (BMI) 27.0-27.9, ADULT 12/22/2019 CHA VERDUGO DO, Ot V72.84 EXAM PRE-OPERATIVE NOS 12/22/2019 CHA VERDUGO DO, Ot V72.84 EXAM PRE-OPERATIVE NOS 12/22/2019 Ot V58.81 FIT /ADJ VASCULAR CATHETER 12/22/2019 CHA VERDUGO DO Ot 879.2 OPN WND ANTERIOR ABDOMEN 12/22/2019 CHA VERDUGO DO, Ot E000.8 OTHER EXTERNAL CAUSE STATUS 12/22/2019 LUCINA DO [facility] Ot E928.9 ACCIDENT NOS 12/22/2019 LIVAN ALEXANDRE, JUAN Raymond Ot 272. 4 HYPERLIPIDEMIA NEC/NOS 12/22/2019 LIVAN ALEXANDRE, JUAN Raymond Ot 397. 0 TRICUSPID VALVE DISEASE 12/22/2019 LIVAN ALEXANDRE, JUAN Raymond Ot 424. 0 MITRAL VALVE DISORDER 12/22/2019 LIVAN ALEXANDRE, JUAN Raymond Ot 786. 09 RESPIRATORY ABNORM NEC 12/22/2019 JUAN LICONA MD Ot 786. 50 CHEST PAIN NOS 12/22/2019 LIVAN ALEXANDRE, JUAN Raymond Ot V46. 2 SUPPLEMENTAL OXYGEN 12/22/2019 JUAN LICONA MD Ot 272. 4 HYPERLIPIDEMIA NEC/NOS 12/22/2019 LIVAN ALEXANDRE, JUAN Raymond Ot 786. 09 RESPIRATORY ABNORM NEC 12/22/2019 JUAN LICONA MD Ot 786. 50 CHEST PAIN NOS 12/22/2019 JUAN LICONA MD Ot V46. 2 SUPPLEMENTAL OXYGEN 12/22/2019 RUDOLPH KENT DO Ot V76.12 OTH SCREEN MAMMO-MALIGN NEOPLASM OF [place] 12/22/2019 QING TAO DO Ot 305. 1 TOBACCO USE DISORDER 12/22/2019 QING TAO DO Ot 496 CHR AIRWAY OBSTRUCT NEC 12/22/2019 QING TAO DO Ot 786. 09 RESPIRATORY ABNORM NEC 12/22/2019 KASIE DPM, ANDREA Q Ot 355. 5 TARSAL TUNNEL SYNDROME 12/22/2019 [facility] Ot V72.84 EXAM PRE-OPERATIVE NOS 12/22/2019 [facility] 530.10 ESOPHAGITIS NOS 12/22/2019 [facility] Ot 553.3 DIAPHRAGMATIC HERNIA 12/22/2019 [facility] Ot 787.20 DYSPHAGIA, UNSPECIFIED 12/22/2019 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 Ot 486 PNEUMONIA, ORGANISM NOS 12/22/2019 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 Ot 789.00 ABDOMINAL PAIN, UNSPECIFIED SITE 12/22/2019 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 Ot 959.6 HIP THIGH INJURY NOS 12/22/2019 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 Ot E000.8 OTHER EXTERNAL CAUSE STATUS 12/22/2019 JIMMY KENT JOSE Ot E849.4 ACCID IN RECREATION AREA 12/22/2019 JIMMY KENT JOSE Ot E888.9 FALL NOS 12/22/2019 GLADWIN DC, PETRA Raymond Ot 724. 5 BACKACHE NOS 12/22/2019 GLADWIN DC, PETRA Raymond Ot 786. 50 CHEST PAIN NOS 12/22/2019 GLADWIN DC, PETRA Raymond Ot 724. 1 PAIN IN THORACIC SPINE 12/22/2019 GLADWIN DC, PETRA Raymond Ot 786. 50 CHEST PAIN NOS 12/22/2019 [facility] DO, RUDOLPH Raymond Ot 414.00 CORON ATHEROSCLER NOS TYPE VESSEL, NATIV 12/22/2019 KENT DO, RUDOLPH Raymond Ot 786.50 CHEST PAIN NOS 12/22/2019 KENT DO, RUDOLPH Raymond Ot I25.10 ATHSCL HEART DISEASE OF [place] CORONARY 12/22/2019 KENT DO, RUDOLPH Raymond Ot R07.9 CHEST PAIN, UNSPECIFIED 12/22/2019 [facility] DO, CHA Ot R10.9 UNSPECIFIED ABDOMINAL PAIN 12/22/2019 [facility] DO, CHA Ot Z01.818 ENCOUNTER FOR OTHER PREPROCEDURAL EXAMIN 12/22/2019 LUCINA , CHA Ot 553.20 VENTRAL HERNIA NOS 12/22/2019 [facility], CHA Ot V81.5 SCREEN FOR NEPHROPATHY 12/22/2019 LUKASZ CROWLEY APRN Ot F17.210 NICOTINE DEPENDENCE, CIGARETTES, UNCOMPL 12/22/2019 LUKASZ CROWLEY APRN Ot J44.9 CHRONIC OBSTRUCTIVE PULMONARY DISEASE, U 12/22/2019 LUKASZ CROWLEY APRN Ot R06.00 DYSPNEA, UNSPECIFIED 12/22/2019 FRANDY DE LA ROSA Ot E11.9 TYPE 2 DIABETES MELLITUS WITHOUT COMPLIC 12/22/2019 FRANDY DE LA ROSA Ot E78.2 MIXED HYPERLIPIDEMIA 12/22/2019 FRANDY DE LA ROSA Ot I10 ESSENTIAL (PRIMARY) HYPERTENSION 12/22/2019 FRANDY DE LA ROSA Ot I25.10 ATHSCL HEART DISEASE OF [place] CORONARY 12/22/2019 FRANDY DE LA ROSA Ot E11.9 TYPE 2 DIABETES MELLITUS WITHOUT COMPLIC 12/22/2019 FRANDY DE LA ROSA Ot E78.2 MIXED HYPERLIPIDEMIA 12/22/2019 FRANDY DE LA ROSA Ot I10 ESSENTIAL (PRIMARY) HYPERTENSION 12/22/2019 FRANDY DE LA ROSA Ot I25.10 ATHSCL HEART DISEASE OF [place] CORONARY 12/22/2019 LUKASZ CROWLEY APRN Ot F17.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, UNSPECIFIED, UNCOMP 12/22/2019 LUKASZ CROWLEY APRN Ot J44.9 CHRONIC OBSTRUCTIVE PULMONARY DISEASE, U 12/22/2019 RUDOLPH KENT DO, Ot M94.8X6 OTHER SPECIFIED DISORDERS OF [place], 12/22/2019 RUDOLPH KENT DO, Ot S83.242A OTH TEAR OF MEDIAL MENISCUS, CURRENT INJ 12/22/2019 RUDOLPH KENT DO, Ot S83.282A OTH TEAR OF LAT MENSC, CURRENT INJURY, L 12/22/2019 RUDOLPH KENT DO, Ot X58.XXXA EXPOSURE TO OTHER SPECIFIED FACTORS, INI 12/22/2019 RUDOLPH KENT DO, Ot Y99.8 OTHER EXTERNAL CAUSE STATUS 12/22/2019 RUDOLPH KENT DO, Ot Z12.31 ENCNTR SCREEN MAMMOGRAM FOR MALIGNANT NE 12/22/2019 RUDOLPH KENT DO, Ot M40.209 UNSPECIFIED KYPHOSIS, SITE UNSPECIFIED 12/22/2019 RUDOLPH KENT DO, Ot M85.852 OTH DISRD OF BONE DENSITY AND STRUCTURE, 12/22/2019 RUDOLPH KENT DO, Ot Z78.0 ASYMPTOMATIC MENOPAUSAL STATE 12/22/2019 EARNESTINE ALEXANDRE, RAY Davis Ot L98 .9 DISORDER OF THE SKIN AND SUBCUTANEOUS TI 12/22/2019 RUDOLPH KENT DO, Ot M77.32 CALCANEAL SPUR, LEFT FOOT 12/22/2019 RUDOLPH KENT DO, Ot S79.912A UNSPECIFIED INJURY OF LEFT HIP, INITIAL 12/22/2019 RUDOLPH KENT DO, Ot W19.XXXA UNSPECIFIED FALL, INITIAL ENCOUNTER 12/22/2019 RUDOLPH KENT DO, Ot F09 UNSP MENTAL DISORDER DUE TO KNOWN PHYSIO 12/22/2019 RUDOLPH KENT DO, Ot G43.909 MIGRAINE, UNSP, NOT INTRACTABLE, WITHOUT 12/22/2019 KENT DO, RUDOLPH Raymond Ot W19.XXXA UNSPECIFIED FALL, INITIAL ENCOUNTER 12/22/2019 KENT DO, RUDOLPH Raymond Ot M25.78 OSTEOPHYTE, VERTEBRAE 12/22/2019 KENT DO, RUDOLPH Raymond Ot M43.16 SPONDYLOLISTHESIS, LUMBAR REGION 12/22/2019 KENT DO, RUDOLPH Raymond Ot M46.86 OTHER SPECIFIED INFLAMMATORY SPONDYLOPAT 12/22/2019 KENT DO, RUDOLPH Raymond Ot M47.27 OTHER SPONDYLOSIS WITH RADICULOPATHY, CATHLEEN 12/22/2019 KENT DO, RUDOLPH Raymond Ot M48.061 SPINAL STENOSIS, LUMBAR REGION WITHOUT N 12/22/2019 KENT DO, RUDOLPH Raymond Ot M51.16 INTERVERTEBRAL DISC DISORDERS W RADICULO 12/22/2019 KENT DO, RUDOLPH Raymond Ot M99.73 CONN TISS AND DISC STENOS OF INTVRT FORA 12/22/2019 KENT DO, RUDOLPH Raymond Ot S99.912A UNSPECIFIED INJURY OF LEFT ANKLE, INITIA 12/22/2019 JUAN LICONA MD Ot E11. 51 TYPE 2 DIABETES W DIABETIC PERIPHERAL AN 12/22/2019 JUAN LICONA MD Ot E78. 2 MIXED HYPERLIPIDEMIA 12/22/2019 JUAN LICONA MD Ot R06. 09 OTHER FORMS OF DYSPNEA 12/22/2019 JUAN LICONA MD Ot R07. 89 OTHER CHEST PAIN 12/22/2019 JUAN LICONA MD Ot E11. 51 TYPE 2 DIABETES W DIABETIC PERIPHERAL AN 12/22/2019 JUAN LICONA MD Ot E78. 2 MIXED HYPERLIPIDEMIA 12/22/2019 JUAN LICONA MD Ot R06. 09 OTHER FORMS OF DYSPNEA 12/22/2019 JUAN LICONA MD Ot R07. 89 OTHER CHEST PAIN 12/22/2019 LUKASZ CROWLEY APRN Ot F12.10 CANNABIS ABUSE, UNCOMPLICATED 12/22/2019 LUKASZ CROWLEY APRN Ot F17.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, UNSPECIFIED, UNCOMP 12/22/2019 LUKASZ CROWLEY APRN Ot G47.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 12/22/2019 LUKASZ CROWLEY APRN Ot J30.9 ALLERGIC RHINITIS, UNSPECIFIED 12/22/2019 CARLINE, LUKASZ E 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 Ot J42 UNSPECIFIED CHRONIC BRONCHITIS 12/22/2019 LUKASZ CROWLEY 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 Ot J44.9 CHRONIC OBSTRUCTIVE PULMONARY DISEASE, U 12/22/2019 LUKASZ CROWLEY 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 Ot Z99.81 DEPENDENCE ON SUPPLEMENTAL OXYGEN 12/22/2019 LUKASZ CROWLEY 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 Ot F12.10 CANNABIS ABUSE, UNCOMPLICATED 12/22/2019 LUKASZ CROWLEY 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 Ot F17.210 NICOTINE DEPENDENCE, CIGARETTES, UNCOMPL 12/22/2019 LUKASZ CROWLEY 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 Ot G47.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 12/22/2019 LUKASZ CROWLEY 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 Ot J18.1 LOBAR PNEUMONIA, UNSPECIFIED ORGANISM 12/22/2019 LUKASZ CROWLEY APRN Ot J30.9 ALLERGIC RHINITIS, UNSPECIFIED 12/22/2019 LUKASZ CROWLEY 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 Ot J44.9 CHRONIC OBSTRUCTIVE PULMONARY DISEASE, U 12/22/2019 LUKASZ CROWLEY 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 Ot Z12.2 ENCNTR SCREEN FOR MALIGNANT NEOPLASM OF 12/22/2019 LUKASZ CROWLEY 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 Ot Z99.81 DEPENDENCE ON SUPPLEMENTAL OXYGEN 12/22/2019 RUDOLPH KENT DO Ot Z45.2 ENCOUNTER FOR ADJUSTMENT AND MANAGEMENT 12/22/2019 SARAH ROBERTSON Ot 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, CERVICOTHORACIC REGIO 12/22/2019 SARAH ROBERTSON Ot M48.02 SPINAL STENOSIS, CERVICAL REGION 12/22/2019 SARAH ROBERTSON Ot M50.11 CERV DISC DISORDER WITH RADICULOPATHY, H 12/22/2019 SARAH ROBERTSON Ot M50.121 CERVICAL DISC DISORDER AT C4-C5 LEVEL [place] 12/22/2019 CHA VERDUGO DO Ot V72.84 EXAM PRE-OPERATIVE NOS 12/22/2019 CHA VERDUGO DO Ot V72.84 EXAM PRE-OPERATIVE NOS 12/22/2019 Ot V58.81 FIT /ADJ VASCULAR CATHETER 12/22/2019 CHA VERDUGO DO Ot 879.2 OPN WND ANTERIOR ABDOMEN 12/22/2019 CHA VERDUGO DO Ot E000.8 OTHER EXTERNAL CAUSE STATUS 12/22/2019 CHA VERDUGO DO Ot E928.9 ACCIDENT NOS 12/22/2019 LIVAN ALEXANDRE, JUAN Raymond Ot 272. 4 HYPERLIPIDEMIA NEC/NOS 12/22/2019 JUAN LICONA MD Ot 397. 0 TRICUSPID VALVE DISEASE 12/22/2019 JUAN LICONA MD Ot 424. 0 MITRAL VALVE DISORDER 12/22/2019 LIVAN ALEXANDRE, JUAN Raymond Ot 786. 09 RESPIRATORY ABNORM NEC 12/22/2019 JUAN LICONA MD Ot 786. 50 CHEST PAIN NOS 12/22/2019 JUAN LICONA MD Ot V46. 2 SUPPLEMENTAL OXYGEN 12/22/2019 JUAN LICONA MD Ot 272. 4 HYPERLIPIDEMIA NEC/NOS 12/22/2019 LIVAN ALEXANRDE, JUAN Raymond Ot 786. 09 RESPIRATORY ABNORM NEC 12/22/2019 JUAN LICONA MD Ot 786. 50 CHEST PAIN NOS 12/22/2019 JUAN LICONA MD Ot V46. 2 SUPPLEMENTAL OXYGEN 12/22/2019 RUDOLPH KENT DO Ot V76.12 OTH SCREEN MAMMO-MALIGN NEOPLASM OF [place] 12/22/2019 QING TAO DO Ot 305. 1 TOBACCO USE DISORDER 12/22/2019 QING TAO DO Ot 496 CHR AIRWAY OBSTRUCT NEC 12/22/2019 QING TAO DO Ot 786. 09 RESPIRATORY ABNORM NEC 12/22/2019 KASIE DPM, ANDREA Q Ot 355. 5 TARSAL TUNNEL SYNDROME 12/22/2019 CHA VERDUGO DO Ot V72.84 EXAM PRE-OPERATIVE NOS 12/22/2019 LUCINACHA DIANA DO Ot 530.10 ESOPHAGITIS NOS 12/22/2019 LUCINACHA DIANA DO Ot 553.3 DIAPHRAGMATIC HERNIA 12/22/2019 LUCINACHA DIANA DO Ot 787.20 DYSPHAGIA, UNSPECIFIED 12/22/2019 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 Ot 486 PNEUMONIA, ORGANISM NOS 12/22/2019 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 Ot 789.00 ABDOMINAL PAIN, UNSPECIFIED SITE 12/22/2019 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 Ot 959.6 HIP THIGH INJURY NOS 12/22/2019 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 Ot E000.8 OTHER EXTERNAL CAUSE STATUS 12/22/2019 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 Ot E849.4 ACCID IN RECREATION AREA 12/22/2019 KENTJIMMY SCIENTIFIC LABORATORY SUPERVISOR Ot E888.9 FALL NOS 12/22/2019 GLADWIN DC, PETRA Raymond Ot 724. 5 BACKACHE NOS 12/22/2019 GLADWIN DC, PETRA Raymond Ot 786. 50 CHEST PAIN NOS 12/22/2019 GLADWIN DC, PETRA Raymond Ot 724. 1 PAIN IN THORACIC SPINE 12/22/2019 [facility], PETRA Raymond Ot 786. 50 CHEST PAIN NOS 12/22/2019 [facility], RUDOLPH Raymond Ot 414.00 CORON ATHEROSCLER NOS TYPE VESSEL, NATIV 12/22/2019 KENT DO, RUDOLPH Raymond Ot 786.50 CHEST PAIN NOS 12/22/2019 KENT DO, RUDOLPH Raymond Ot I25.10 ATHSCL HEART DISEASE OF [place] CORONARY 12/22/2019 KENT DO, RUDOLPH Raymond Ot R07.9 CHEST PAIN, UNSPECIFIED 12/22/2019 [facility] DO, CHA Ot R10.9 UNSPECIFIED ABDOMINAL PAIN 12/22/2019 [facility] DO, CHA Ot Z01.818 ENCOUNTER FOR OTHER PREPROCEDURAL EXAMIN 12/22/2019 [facility] DO, CHA Ot 553.20 VENTRAL HERNIA NOS 12/22/2019 [facility] DO, CHA Ot V81.5 SCREEN FOR NEPHROPATHY 12/22/2019 LUKASZ CROWLEY APRN Ot F17.210 NICOTINE DEPENDENCE, CIGARETTES, UNCOMPL 12/22/2019 LUKASZ CROWLEY APRN Ot J44.9 CHRONIC OBSTRUCTIVE PULMONARY DISEASE, U 12/22/2019 LUKASZ CROWLEY APRN Ot R06.00 DYSPNEA, UNSPECIFIED 12/22/2019 FRANDY DE LA ROSA Ot E11.9 TYPE 2 DIABETES MELLITUS WITHOUT COMPLIC 12/22/2019 FRANDY DE LA ROSA Ot E78.2 MIXED HYPERLIPIDEMIA 12/22/2019 FRANDY DE LA ROSA Ot I10 ESSENTIAL (PRIMARY) HYPERTENSION 12/22/2019 FRANDY DE LA ROSA Ot I25.10 ATHSCL HEART DISEASE OF [place] CORONARY 12/22/2019 FRANDY DE LA ROSA Ot E11.9 TYPE 2 DIABETES MELLITUS WITHOUT COMPLIC 12/22/2019 FRANDY DE LA ROSA Ot E78.2 MIXED HYPERLIPIDEMIA 12/22/2019 FRANDY DE LA ROSA Ot I10 ESSENTIAL (PRIMARY) HYPERTENSION 12/22/2019 FRANDY DE LA ROSA Ot I25.10 ATHSCL HEART DISEASE OF [place] CORONARY 12/22/2019 LUKASZ CROWLEY APRN Ot F17.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, UNSPECIFIED, UNCOMP 12/22/2019 LUKASZ CROWLEY APRN Ot J44.9 CHRONIC OBSTRUCTIVE PULMONARY DISEASE, U 12/22/2019 RUDOLPH KENT DO Ot M94.8X6 OTHER SPECIFIED DISORDERS OF [place], 12/22/2019 RUDOLPH KENT DO, Ot S83.242A OTH TEAR OF MEDIAL MENISCUS, CURRENT INJ 12/22/2019 RUDOLPH KENT DO, Ot S83.282A OTH TEAR OF LAT MENSC, CURRENT INJURY, L 12/22/2019 RUDOLPH KENT DO, Ot X58.XXXA EXPOSURE TO OTHER SPECIFIED FACTORS, INI 12/22/2019 RUDOLPH KENT DO, Ot Y99.8 OTHER EXTERNAL CAUSE STATUS 12/22/2019 RUDOLPH KENT DO, Ot Z12.31 ENCNTR SCREEN MAMMOGRAM FOR MALIGNANT NE 12/22/2019 RUDOLPH KENT DO, Ot M40.209 UNSPECIFIED KYPHOSIS, SITE UNSPECIFIED 12/22/2019 RUDOLPH KENT DO, Ot M85.852 OTH DISRD OF BONE DENSITY AND STRUCTURE, 12/22/2019 RUDOLPH KENT DO, Ot Z78.0 ASYMPTOMATIC MENOPAUSAL STATE 12/22/2019 EARNESTINE ALEXANDRE, RAY Davis Ot L98 .9 DISORDER OF THE SKIN AND SUBCUTANEOUS TI 12/22/2019 RUDOLPH KENT DO, Ot M77.32 CALCANEAL SPUR, LEFT FOOT 12/22/2019 RUDOLPH KENT DO, Ot S79.912A UNSPECIFIED INJURY OF LEFT HIP, INITIAL 12/22/2019 RUDOLPH KENT DO, Ot W19.XXXA UNSPECIFIED FALL, INITIAL ENCOUNTER 12/22/2019 RUDOLPH KENT DO, Ot F09 UNSP MENTAL DISORDER DUE TO KNOWN PHYSIO 12/22/2019 RUDOLPH KENT DO, Ot G43.909 MIGRAINE, UNSP, NOT INTRACTABLE, WITHOUT 12/22/2019 RUDOLPH KENT DO, Ot W19.XXXA UNSPECIFIED FALL, INITIAL ENCOUNTER 12/22/2019 KENT DO, RUDOLPH Raymond Ot M25.78 OSTEOPHYTE, VERTEBRAE 12/22/2019 KENT DO, RUDOLPH Raymond Ot M43.16 SPONDYLOLISTHESIS, LUMBAR REGION 12/22/2019 KENT DO, RUDOLPH Raymond Ot M46.86 OTHER SPECIFIED INFLAMMATORY SPONDYLOPAT 12/22/2019 KENT DO, RUDOLPH Raymond Ot M47.27 OTHER SPONDYLOSIS WITH RADICULOPATHY, CATHLEEN 12/22/2019 KENT DO, RUDOLPH Raymond Ot M48.061 SPINAL STENOSIS, LUMBAR REGION WITHOUT N 12/22/2019 KENT DO, RUDOLPH Raymond Ot M51.16 INTERVERTEBRAL DISC DISORDERS W RADICULO 12/22/2019 KENT DO, RUDOLPH Raymond Ot M99.73 CONN TISS AND DISC STENOS OF INTVRT FORA 12/22/2019 KENT DO, RUDOLPH Raymond Ot S99.912A UNSPECIFIED INJURY OF LEFT ANKLE, INITIA 12/22/2019 JUAN LICONA MD Ot E11. 51 TYPE 2 DIABETES W DIABETIC PERIPHERAL AN 12/22/2019 JUAN LICONA MD Ot E78. 2 MIXED HYPERLIPIDEMIA 12/22/2019 JUAN LICONA MD Ot R06. 09 OTHER FORMS OF DYSPNEA 12/22/2019 JUAN ILCONA MD Ot R07. 89 OTHER CHEST PAIN 12/22/2019 JUAN LICONA MD Ot E11. 51 TYPE 2 DIABETES W DIABETIC PERIPHERAL AN 12/22/2019 JUAN LICONA MD Ot E78. 2 MIXED HYPERLIPIDEMIA 12/22/2019 JUAN LICONA MD Ot R06. 09 OTHER FORMS OF DYSPNEA 12/22/2019 JUAN LICONA MD Ot R07. 89 OTHER CHEST PAIN 12/22/2019 LUKASZ CROWLEY APRN Ot F12.10 CANNABIS ABUSE, UNCOMPLICATED 12/22/2019 LUKASZ CROWLEY APRN Ot F17.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, UNSPECIFIED, UNCOMP 12/22/2019 LUKASZ CROWLEY APRN Ot G47.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 12/22/2019 LUKASZ CROWLEY APRN Ot J30.9 ALLERGIC RHINITIS, UNSPECIFIED 12/22/2019 LUKASZ CROWLEY APRN Ot J42 UNSPECIFIED CHRONIC BRONCHITIS 12/22/2019 LUKASZ CROWLEY APRN Ot J44.9 CHRONIC OBSTRUCTIVE PULMONARY DISEASE, U 12/22/2019 LUKASZ CROWLEY APRN Ot Z99.81 DEPENDENCE ON SUPPLEMENTAL OXYGEN 12/22/2019 LUKASZ CROWLEY 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 Ot F12.10 CANNABIS ABUSE, UNCOMPLICATED 12/22/2019 LUKASZ CROWLEY 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 Ot F17.210 NICOTINE DEPENDENCE, CIGARETTES, UNCOMPL 12/22/2019 LUKASZ CROWLEY APRN Ot G47.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 12/22/2019 LUKASZ CROWLEY APRN Ot J18.1 LOBAR PNEUMONIA, UNSPECIFIED ORGANISM 12/22/2019 LUKASZ CROWLEY APRN Ot J30.9 ALLERGIC RHINITIS, UNSPECIFIED 12/22/2019 LUKASZ CROWLEY APRN Ot J44.9 CHRONIC OBSTRUCTIVE PULMONARY DISEASE, U 12/22/2019 LUKASZ CROWLEY APRN Ot Z12.2 ENCNTR SCREEN FOR MALIGNANT NEOPLASM OF 12/22/2019 LUKASZ CROWLEY APRN Ot Z99.81 DEPENDENCE ON SUPPLEMENTAL OXYGEN 12/22/2019 RUDOLPH KENT DO Ot Z45.2 ENCOUNTER FOR ADJUSTMENT AND MANAGEMENT 12/22/2019 SARAH ROBERTSON Ot 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, CERVICOTHORACIC REGIO 12/22/2019 SARAH ROBERTSON Ot M48.02 SPINAL STENOSIS, CERVICAL REGION 12/22/2019 SARAH ROBERTSON Ot M50.11 CERV DISC DISORDER WITH RADICULOPATHY, H 12/22/2019 SARAH ROBERTSON Ot M50.121 CERVICAL DISC DISORDER AT C4-C5 LEVEL [place] 01/17/2020 CHA VERDUGO DO Ot V72.84 EXAM PRE-OPERATIVE NOS 01/17/2020 Ot V58.81 FIT /ADJ VASCULAR CATHETER 01/17/2020 CHA VERDUGO DO Ot 879.2 OPN WND ANTERIOR ABDOMEN 01/17/2020 CHA VERDUGO DO Ot E000.8 OTHER EXTERNAL CAUSE STATUS 01/17/2020 CHA VERDUGO DO Ot E928.9 ACCIDENT NOS 01/17/2020 JUAN LICONA MD Ot 272. 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 0 MITRAL VALVE DISORDER 01/17/2020 JUAN LICONA MD Ot 786. 09 RESPIRATORY ABNORM NEC 01/17/2020 JUAN LICONA MD Ot 786. 50 CHEST PAIN NOS 01/17/2020 JUAN LICONA MD Ot V46. 2 SUPPLEMENTAL OXYGEN 01/17/2020 JUAN LICONA MD Ot 272. 4 HYPERLIPIDEMIA NEC/NOS 01/17/2020 JUAN LICONA MD Ot 786. 09 RESPIRATORY ABNORM NEC 01/17/2020 JUAN LICONA MD Ot 786. 50 CHEST PAIN NOS 01/17/2020 JUAN LICONA MD Ot V46. 2 SUPPLEMENTAL OXYGEN 01/17/2020 RUDOLPH KENT DO Ot V76.12 OTH SCREEN MAMMO-MALIGN NEOPLASM OF [place] 01/17/2020 QING TAO DO Ot 305. 1 TOBACCO USE DISORDER 01/17/2020 QING TAO DO Ot 496 CHR AIRWAY OBSTRUCT NEC 01/17/2020 QING TAO DO Ot 786. 09 RESPIRATORY ABNORM NEC 01/17/2020 KASIE DPM, ANDREA Q Ot 355. 5 TARSAL TUNNEL SYNDROME 01/17/2020 CHA VERDUGO DO Ot V72.84 EXAM PRE-OPERATIVE NOS 01/17/2020 CHA VERDUGO DO Ot 530.10 ESOPHAGITIS NOS 01/17/2020 CHA VERDUGO DO Ot 553.3 DIAPHRAGMATIC HERNIA 01/17/2020 HCA VERDUGO DO Ot 787.20 DYSPHAGIA, UNSPECIFIED 01/17/2020 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 Ot 486 PNEUMONIA, ORGANISM NOS 01/17/2020 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 Ot 789.00 ABDOMINAL PAIN, UNSPECIFIED SITE 01/17/2020 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 Ot 959.6 HIP THIGH INJURY NOS 01/17/2020 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 Ot E000.8 OTHER EXTERNAL CAUSE STATUS 01/17/2020 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 Ot E849.4 ACCID IN RECREATION AREA 01/17/2020 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 Ot E888.9 FALL NOS 01/17/2020 PETRA KEARNEY DC Ot 724. 5 BACKACHE NOS 01/17/2020 GLADWIN DC, PETRA Raymond Ot 786. 50 CHEST PAIN NOS 01/17/2020 GLADWIN DC, PETRA Raymond Ot 724. 1 PAIN IN THORACIC SPINE 01/17/2020 GLADWIN DC, PETRA Raymond Ot 786. 50 CHEST PAIN NOS 01/17/2020 KENT DO, RUDOLPH Raymond Ot 414.00 CORON ATHEROSCLER NOS TYPE VESSEL, NATIV 01/17/2020 KENT DO, RUDOLPH Raymond Ot 786.50 CHEST PAIN NOS 01/17/2020 KENT DO, RUDOLPH Raymond Ot I25.10 ATHSCL HEART DISEASE OF [place] CORONARY 01/17/2020 KENT DO, RUDOLPH Raymond Ot R07.9 CHEST PAIN, UNSPECIFIED 01/17/2020 [facility] DO, CHA Ot R10.9 UNSPECIFIED ABDOMINAL PAIN 01/17/2020 [facility] DO, CHA Ot Z01.818 ENCOUNTER FOR OTHER PREPROCEDURAL EXAMIN 01/17/2020 LUCINA VILLALPANDO, CHA Ot 553.20 VENTRAL HERNIA NOS 01/17/2020 [facility] DO, CHA Ot V81.5 SCREEN FOR NEPHROPATHY 01/17/2020 LUKASZ CROWLEY APRN Ot F17.210 NICOTINE DEPENDENCE, CIGARETTES, UNCOMPL 01/17/2020 LUKASZ CROWLEY APRN Ot J44.9 CHRONIC OBSTRUCTIVE PULMONARY DISEASE, U 01/17/2020 LUKASZ CROWLEY APRN Ot R06.00 DYSPNEA, UNSPECIFIED 01/17/2020 FRANDY DE LA ROSA Ot E11.9 TYPE 2 DIABETES MELLITUS WITHOUT COMPLIC 01/17/2020 FRANDY DE LA ROSA Ot E78.2 MIXED HYPERLIPIDEMIA 01/17/2020 FRANDY DE LA ROSA Ot I10 ESSENTIAL (PRIMARY) HYPERTENSION 01/17/2020 FRANDY DE LA ROSA Ot I25.10 ATHSCL HEART DISEASE OF [place] CORONARY 01/17/2020 FRANDY DE LA ROSA Ot E11.9 TYPE 2 DIABETES MELLITUS WITHOUT COMPLIC 01/17/2020 FRANDY DE LA ROSA Ot E78.2 MIXED HYPERLIPIDEMIA 01/17/2020 FRANDY DE LA ROSA Ot I10 ESSENTIAL (PRIMARY) HYPERTENSION 01/17/2020 FRANDY DE LA ROSA Ot I25.10 ATHSCL HEART DISEASE OF [place] CORONARY 01/17/2020 LUKASZ CROWLEY APRN Ot F17.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, UNSPECIFIED, UNCOMP 01/17/2020 LUKASZ CROWLEY APRN Ot J44.9 CHRONIC OBSTRUCTIVE PULMONARY DISEASE, U 01/17/2020 RUDOLPH KENT DO, Ot M94.8X6 OTHER SPECIFIED DISORDERS OF [place], 01/17/2020 RUDOLPH KENT DO, Ot S83.242A OTH TEAR OF MEDIAL MENISCUS, CURRENT INJ 01/17/2020 YOLI VILLALPANDO, RUDOLPH Raymond Ot S83.282A OTH TEAR OF LAT MENSC, CURRENT INJURY, L 01/17/2020 RUDOLPH KENT DO, Ot X58.XXXA EXPOSURE TO OTHER SPECIFIED FACTORS, INI 01/17/2020 RUDOLPH KENT DO, Ot Y99.8 OTHER EXTERNAL CAUSE STATUS 01/17/2020 RUDOLPH KENT DO, Ot Z12.31 ENCNTR SCREEN MAMMOGRAM FOR MALIGNANT NE 01/17/2020 RUDOLPH KENT DO, Ot M40.209 UNSPECIFIED KYPHOSIS, SITE UNSPECIFIED 01/17/2020 RUDOLPH KENT DO, Ot M85.852 OT DISRD OF BONE DENSITY AND STRUCTURE, 01/17/2020 RUDOLPH KENT DO, Ot Z78.0 ASYMPTOMATIC MENOPAUSAL STATE 01/17/2020 EARNESTINE ALEXANDRE, RAY Davis Ot L98 .9 DISORDER OF THE SKIN AND SUBCUTANEOUS TI 01/17/2020 RUDOLPH KENT DO, Ot M77.32 CALCANEAL SPUR, LEFT FOOT 01/17/2020 RUDOLPH KENT DO, Ot S79.912A UNSPECIFIED INJURY OF LEFT HIP, INITIAL 01/17/2020 RUDOLPH KENT DO, Ot W19.XXXA UNSPECIFIED FALL, INITIAL ENCOUNTER 01/17/2020 RUDOLPH KENT DO, Ot F09 UNSP MENTAL DISORDER DUE TO KNOWN PHYSIO 01/17/2020 RUDOLPH KENT DO, Ot G43.909 MIGRAINE, UNSP, NOT INTRACTABLE, WITHOUT 01/17/2020 RUDOLPH KENT DO, Ot W19.XXXA UNSPECIFIED FALL, INITIAL ENCOUNTER 01/17/2020 RUDOLPH KENT DO, Ot M25.78 OSTEOPHYTE, VERTEBRAE 01/17/2020 KENT DO, RUDOLPH J Ot M43.16 SPONDYLOLISTHESIS, LUMBAR REGION 01/17/2020 KENT DO, RUDOLPH Raymond Ot M46.86 OTHER SPECIFIED INFLAMMATORY SPONDYLOPAT 01/17/2020 KENT DO, RUDOLPH Raymond Ot M47.27 OTHER SPONDYLOSIS WITH RADICULOPATHY, CATHLEEN 01/17/2020 KENT DO, RUDOLPH Raymond Ot M48.061 SPINAL STENOSIS, LUMBAR REGION WITHOUT N 01/17/2020 KENT DO, RUDOLPH Raymond Ot M51.16 INTERVERTEBRAL DISC DISORDERS W RADICULO 01/17/2020 KENT DO, RUDOLPH Raymond Ot M99.73 CONN TISS AND DISC STENOS OF INTVRT FORA 01/17/2020 KENT DO, RUDOLPH Raymond Ot S99.912A UNSPECIFIED INJURY OF LEFT ANKLE, INITIA 01/17/2020 LIVAN ALEXANDRE, JUAN Raymond Ot E11. 51 TYPE 2 DIABETES W DIABETIC PERIPHERAL AN 01/17/2020 JUAN LICONA MD Ot E78. 2 MIXED HYPERLIPIDEMIA 01/17/2020 JUAN LICONA MD Ot R06. 09 OTHER FORMS OF DYSPNEA 01/17/2020 JUAN LICONA MD Ot R07. 89 OTHER CHEST PAIN 01/17/2020 LIVAN ALEXANDRE, JUAN Raymond Ot E11. 51 TYPE 2 DIABETES W DIABETIC PERIPHERAL AN 01/17/2020 JUAN LICONA MD Ot E78. 2 MIXED HYPERLIPIDEMIA 01/17/2020 JUAN LICONA MD Ot R06. 09 OTHER FORMS OF DYSPNEA 01/17/2020 JUAN LICONA MD Ot R07. 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, UNSPECIFIED, UNCOMP 01/17/2020 LUKASZ CROWLEY APRN Ot G47.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 01/17/2020 LUKASZ CROWLEY APRN Ot J30.9 ALLERGIC RHINITIS, UNSPECIFIED 01/17/2020 LUKASZ CROWLEY APRN Ot J42 UNSPECIFIED CHRONIC BRONCHITIS 01/17/2020 LUKASZ CROWLEY APRN Ot J44.9 CHRONIC OBSTRUCTIVE PULMONARY DISEASE, U 01/17/2020 LUKASZ CROWLEY APRN Ot Z99.81 DEPENDENCE ON SUPPLEMENTAL OXYGEN 01/17/2020 LUKASZ CROWLEY APRN Ot F12.10 CANNABIS ABUSE, UNCOMPLICATED 01/17/2020 LUKASZ CROWLEY APRN Ot F17.210 NICOTINE DEPENDENCE, CIGARETTES, UNCOMPL 01/17/2020 LUKASZ CROWLEY APRN Ot G47.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 01/17/2020 LUKASZ CROWLEY 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 Ot J18.1 LOBAR PNEUMONIA, UNSPECIFIED ORGANISM 01/17/2020 LUKASZ CROWLEY APRN Ot J30.9 ALLERGIC RHINITIS, UNSPECIFIED 01/17/2020 LUKASZ CROWLEY APRN Ot J44.9 CHRONIC OBSTRUCTIVE PULMONARY DISEASE, U 01/17/2020 LUKASZ CROWLEY APRN Ot Z12.2 ENCNTR SCREEN FOR MALIGNANT NEOPLASM OF 01/17/2020 LUKASZ CROWLEY APRN Ot Z99.81 DEPENDENCE ON SUPPLEMENTAL OXYGEN 01/17/2020 RUDOLPH KENT DO Ot Z45.2 ENCOUNTER FOR ADJUSTMENT AND MANAGEMENT 01/17/2020 SARAH ROBERTSON Ot 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, CERVICOTHORACIC REGIO 01/17/2020 SARAH ROBERTSON Ot M48.02 SPINAL STENOSIS, CERVICAL REGION 01/17/2020 SARAH ROBERTSON Ot M50.11 CERV DISC DISORDER WITH RADICULOPATHY, H 01/17/2020 SARAH ROBERTSON Ot M50.121 CERVICAL DISC DISORDER AT C4-C5 LEVEL [place] 01/17/2020 CHA VERDUGO DO Ot V72.84 EXAM PRE-OPERATIVE NOS 01/17/2020 Ot V58.81 FIT /ADJ VASCULAR CATHETER 01/17/2020 CHA VERDUGO DO Ot 879.2 OPN WND ANTERIOR ABDOMEN 01/17/2020 CHA VERDUGO DO Ot E000.8 OTHER EXTERNAL CAUSE STATUS 01/17/2020 CHA VERDUGO DO Ot E928.9 ACCIDENT NOS 01/17/2020 JUAN LICONA MD Ot 272. 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 0 MITRAL VALVE DISORDER 01/17/2020 JUAN LICONA MD Ot 786. 09 RESPIRATORY ABNORM NEC 01/17/2020 JUAN LICONA MD Ot 786. 50 CHEST PAIN NOS 01/17/2020 JUAN LICONA MD Ot V46. 2 SUPPLEMENTAL OXYGEN 01/17/2020 JUAN LICONA MD Ot 272. 4 HYPERLIPIDEMIA NEC/NOS 01/17/2020 JUAN LICONA MD Ot 786. 09 RESPIRATORY ABNORM NEC 01/17/2020 JUAN LICONA MD Ot 786. 50 CHEST PAIN NOS 01/17/2020 JUAN LICONA MD Ot V46. 2 SUPPLEMENTAL OXYGEN 01/17/2020 RUDOLPH KENT DO Ot V76.12 OTH SCREEN MAMMO-MALIGN NEOPLASM OF [place] 01/17/2020 QING TAO DO Ot 305. 1 TOBACCO USE DISORDER 01/17/2020 QING TAO DO Ot 496 CHR AIRWAY OBSTRUCT NEC 01/17/2020 QING TAO DO Ot 786. 09 RESPIRATORY ABNORM NEC 01/17/2020 KASIE DPM, ANDREA Q Ot 355. 5 TARSAL TUNNEL SYNDROME 01/17/2020 CHA VERDUGO DO Ot V72.84 EXAM PRE-OPERATIVE NOS 01/17/2020 CHA VERDUGO DO Ot 530.10 ESOPHAGITIS NOS 01/17/2020 CHA VERDUGO DO Ot 553.3 DIAPHRAGMATIC HERNIA 01/17/2020 CHA VERDUGO DO Ot 787.20 DYSPHAGIA, UNSPECIFIED 01/17/2020 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 Ot 486 PNEUMONIA, ORGANISM NOS 01/17/2020 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 Ot 789.00 ABDOMINAL PAIN, UNSPECIFIED SITE 01/17/2020 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 Ot 959.6 HIP THIGH INJURY NOS 01/17/2020 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 Ot E000.8 OTHER EXTERNAL CAUSE STATUS 01/17/2020 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 Ot E849.4 ACCID IN RECREATION AREA 01/17/2020 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 Ot E888.9 FALL NOS 01/17/2020 CAIO DC, PETRA Raymond Ot 724. 5 BACKACHE NOS 01/17/2020 CAIO DC, PETRA Raymond Ot 786. 50 CHEST PAIN NOS 01/17/2020 CAIO KRISHAN, PETRA Raymond Ot 724. 1 PAIN IN THORACIC SPINE 01/17/2020 CAIO DC, PETRA Raymond Ot 786. 50 CHEST PAIN NOS 01/17/2020 KENT DO, RUDOLPH Raymond Ot 414.00 CORON ATHEROSCLER NOS TYPE VESSEL, NATIV 01/17/2020 KENT DO, RUDOLPH Raymond Ot 786.50 CHEST PAIN NOS 01/17/2020 KENT DO, RUDOLPH Raymond Ot I25.10 ATHSCL HEART DISEASE OF [place] CORONARY 01/17/2020 KENT DO, RUDOLPH Raymond Ot R07.9 CHEST PAIN, UNSPECIFIED 01/17/2020 LUCINA DO, MEDARDOROUTIE Ot R10.9 UNSPECIFIED ABDOMINAL PAIN 01/17/2020 LUCINA DO, DIANNTIE Ot Z01.818 ENCOUNTER FOR OTHER PREPROCEDURAL EXAMIN 01/17/2020 LUCINA DO, CHA Ot 553.20 VENTRAL HERNIA NOS 01/17/2020 [facility] DO, CHA Ot V81.5 SCREEN FOR NEPHROPATHY 01/17/2020 LUKASZ CROWLEY APRN Ot F17.210 NICOTINE DEPENDENCE, CIGARETTES, UNCOMPL 01/17/2020 LUKASZ CROWLEY APRN Ot J44.9 CHRONIC OBSTRUCTIVE PULMONARY DISEASE, U 01/17/2020 LUKASZ CROWLEY APRN Ot R06.00 DYSPNEA, UNSPECIFIED 01/17/2020 FRANDY DE LA ROSA Ot E11.9 TYPE 2 DIABETES MELLITUS WITHOUT COMPLIC 01/17/2020 FRANDY DE LA ROSA Ot E78.2 MIXED HYPERLIPIDEMIA 01/17/2020 FRANDY DE LA ROSA Ot I10 ESSENTIAL (PRIMARY) HYPERTENSION 01/17/2020 FRANDY DE LA ROSA Ot I25.10 ATHSCL HEART DISEASE OF [place] CORONARY 01/17/2020 FRANDY DE LA ROSA Ot E11.9 TYPE 2 DIABETES MELLITUS WITHOUT COMPLIC 01/17/2020 FRANDY DE LA ROSA Ot E78.2 MIXED HYPERLIPIDEMIA 01/17/2020 FRANDY DE LA ROSA Ot I10 ESSENTIAL (PRIMARY) HYPERTENSION 01/17/2020 FRANDY DE LA ROSA Ot I25.10 ATHSCL HEART DISEASE OF [place] CORONARY 01/17/2020 LUKASZ CROWLEY APRN Ot F17.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, UNSPECIFIED, UNCOMP 01/17/2020 LUKASZ CROWLEY APRN Ot J44.9 CHRONIC OBSTRUCTIVE PULMONARY DISEASE, U 01/17/2020 YOLI VILLALPANDO, RUDOLPH Raymond Ot M94.8X6 OTHER SPECIFIED DISORDERS OF [place], 01/17/2020 YOLI VILLALPANDO, RUDOLPH Raymond Ot S83.242A OTH TEAR OF MEDIAL MENISCUS, CURRENT INJ 01/17/2020 YOLI VILLALPANDO, RUDOLPH Raymond Ot S83.282A OTH TEAR OF LAT MENSC, CURRENT INJURY, L 01/17/2020 RUDOLPH KENT DO, Ot X58.XXXA EXPOSURE TO OTHER SPECIFIED FACTORS, INI 01/17/2020 YOLI VILLALPANDO, RUDOLPH Raymond Ot Y99.8 OTHER EXTERNAL CAUSE STATUS 01/17/2020 RUDOLPH KENT DO, Ot Z12.31 ENCNTR SCREEN MAMMOGRAM FOR MALIGNANT NE 01/17/2020 YOLI VILLALPANDO, RUDOLPH Raymond Ot M40.209 UNSPECIFIED KYPHOSIS, SITE UNSPECIFIED 01/17/2020 RUDOLPH KENT DO, Ot M85.852 OT DISRD OF BONE DENSITY AND STRUCTURE, 01/17/2020 RUDOLPH KENT DO, Ot Z78.0 ASYMPTOMATIC MENOPAUSAL STATE 01/17/2020 EARNESTINE ALEXANDRE, RAY Davis Ot L98 .9 DISORDER OF THE SKIN AND SUBCUTANEOUS TI 01/17/2020 YOLI VILLALPANDO, RUDOLPH Raymond Ot M77.32 CALCANEAL SPUR, LEFT FOOT 01/17/2020 YOLI VILLALPANDO, RUDOLPH Raymond Ot S79.912A UNSPECIFIED INJURY OF LEFT HIP, INITIAL 01/17/2020 RUDOLPH KENT DO, Ot W19.XXXA UNSPECIFIED FALL, INITIAL ENCOUNTER 01/17/2020 RUDOLPH KENT DO, Ot F09 UNSP MENTAL DISORDER DUE TO KNOWN PHYSIO 01/17/2020 YOLI VILLALPANDO, RUDOLPH Raymond Ot G43.909 MIGRAINE, UNSP, NOT INTRACTABLE, WITHOUT 01/17/2020 RUDOLPH KENT DO, Ot W19.XXXA UNSPECIFIED FALL, INITIAL ENCOUNTER 01/17/2020 RUDOLPH KENT DO, Ot M25.78 OSTEOPHYTE, VERTEBRAE 01/17/2020 RUDOLPH KENT DO, Ot M43.16 SPONDYLOLISTHESIS, LUMBAR REGION 01/17/2020 RUDOLPH KENT DO, Ot M46.86 OTHER SPECIFIED INFLAMMATORY SPONDYLOPAT 01/17/2020 RUDOLPH KENT DO J Ot M47.27 OTHER SPONDYLOSIS WITH RADICULOPATHY, CATHLEEN 01/17/2020 KENT DO, RUDOLPH Raymond Ot M48.061 SPINAL STENOSIS, LUMBAR REGION WITHOUT N 01/17/2020 KENT DO, RUDOLPH Raymond Ot M51.16 INTERVERTEBRAL DISC DISORDERS W RADICULO 01/17/2020 KENT DO, RUDOLPH Raymond Ot M99.73 CONN TISS AND DISC STENOS OF INTVRT FORA 01/17/2020 KENT DO, RUDOLPH Raymond Ot S99.912A UNSPECIFIED INJURY OF LEFT ANKLE, INITIA 01/17/2020 LIVAN ALEXANDRE, JUAN Raymond Ot E11. 51 TYPE 2 DIABETES W DIABETIC PERIPHERAL AN 01/17/2020 JUAN LICONA MD Ot E78. 2 MIXED HYPERLIPIDEMIA 01/17/2020 LIVAN ALEXANDRE, JUAN Raymond Ot R06. 09 OTHER FORMS OF DYSPNEA 01/17/2020 LIVAN ALEXANDRE, JUAN Raymond Ot R07. 89 OTHER CHEST PAIN 01/17/2020 LIVAN ALEXANDRE, JUAN Raymond Ot E11. 51 TYPE 2 DIABETES W DIABETIC PERIPHERAL AN 01/17/2020 LIVAN ALEXANDRE, JUAN Raymond Ot E78. 2 MIXED HYPERLIPIDEMIA 01/17/2020 LIVAN ALEXANDRE, JUAN Raymond Ot R06. 09 OTHER FORMS OF DYSPNEA 01/17/2020 LIVAN ALEXANDRE, JUAN Raymond Ot R07. 89 OTHER CHEST PAIN 01/17/2020 LUKASZ CROWLEY APRN Ot F12.10 CANNABIS ABUSE, UNCOMPLICATED 01/17/2020 LUKASZ CROWLEY 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 Ot F17.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, UNSPECIFIED, UNCOMP 01/17/2020 LUKASZ CROWLEY 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 Ot G47.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 01/17/2020 LUKASZ CROWLEY APRN Ot J30.9 ALLERGIC RHINITIS, UNSPECIFIED 01/17/2020 LUKASZ CROWLEY 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 Ot J42 UNSPECIFIED CHRONIC BRONCHITIS 01/17/2020 LUKASZ CROWLEY APRN Ot J44.9 CHRONIC OBSTRUCTIVE PULMONARY DISEASE, U 01/17/2020 LUKASZ CROWLEY 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 Ot Z99.81 DEPENDENCE ON SUPPLEMENTAL OXYGEN 01/17/2020 LUKASZ CROWLEY 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 Ot F12.10 CANNABIS ABUSE, UNCOMPLICATED 01/17/2020 LUKASZ CROWLEY 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 Ot F17.210 NICOTINE DEPENDENCE, CIGARETTES, UNCOMPL 01/17/2020 LUKASZ CROWLEY APRN Ot G47.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 01/17/2020 LUKASZ CROWLEY APRN Ot J18.1 LOBAR PNEUMONIA, UNSPECIFIED ORGANISM 01/17/2020 LUKASZ CROWLEY APRN Ot J30.9 ALLERGIC RHINITIS, UNSPECIFIED 01/17/2020 LUKASZ CROWLEY APRN Ot J44.9 CHRONIC OBSTRUCTIVE PULMONARY DISEASE, U 01/17/2020 LUKASZ CROWLEY APRN Ot Z12.2 ENCNTR SCREEN FOR MALIGNANT NEOPLASM OF 01/17/2020 LUKASZ CROWLEY APRN Ot Z99.81 DEPENDENCE ON SUPPLEMENTAL OXYGEN 01/17/2020 RUDOLPH KENT DO Ot Z45.2 ENCOUNTER FOR ADJUSTMENT AND MANAGEMENT 01/17/2020 SARAH ROBERTSON Ot 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, CERVICOTHORACIC REGIO 01/17/2020 SARAH ROBERTSON Ot M48.02 SPINAL STENOSIS, CERVICAL REGION 01/17/2020 SARAH ROBERTSON Ot M50.11 CERV DISC DISORDER WITH RADICULOPATHY, H 01/17/2020 SARAH ROBERTSON Ot M50.121 CERVICAL DISC DISORDER AT C4-C5 LEVEL [place] 01/17/2020 CHA VERDUGO DO Ot V72.84 EXAM PRE-OPERATIVE NOS 01/17/2020 Ot V58.81 FIT /ADJ VASCULAR CATHETER 01/17/2020 CHA VERDUGO DO Ot 879.2 OPN WND ANTERIOR ABDOMEN 01/17/2020 CHA VERDUGO DO Ot E000.8 OTHER EXTERNAL CAUSE STATUS 01/17/2020 CHA VERDUGO DO Ot E928.9 ACCIDENT NOS 01/17/2020 JUAN LICONA MD Ot 272. 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 0 MITRAL VALVE DISORDER 01/17/2020 JUAN LICONA MD Ot 786. 09 RESPIRATORY ABNORM NEC 01/17/2020 JUAN LICONA MD Ot 786. 50 CHEST PAIN NOS 01/17/2020 JUAN LICONA MD Ot V46. 2 SUPPLEMENTAL OXYGEN 01/17/2020 JUAN LICONA MD Ot 272. 4 HYPERLIPIDEMIA NEC/NOS 01/17/2020 JUAN LICONA MD Ot 786. 09 RESPIRATORY ABNORM NEC 01/17/2020 JUAN LICONA MD Ot 786. 50 CHEST PAIN NOS 01/17/2020 JUAN LICONA MD Ot V46. 2 SUPPLEMENTAL OXYGEN 01/17/2020 RUDOLPH KENT DO Ot V76.12 OTH SCREEN MAMMO-MALIGN NEOPLASM OF JE[place] 01/17/2020 QING TAO DO Ot 305. 1 TOBACCO USE DISORDER 01/17/2020 QING TAO DO Ot 496 CHR AIRWAY OBSTRUCT NEC 01/17/2020 QING TAO DO Ot 786. 09 RESPIRATORY ABNORM NEC 01/17/2020 KASIE DPM, ANDREA Q Ot 355. 5 TARSAL TUNNEL SYNDROME 01/17/2020 LUCINACHA DINAA DO Ot V72.84 EXAM PRE-OPERATIVE NOS 01/17/2020 LUCINA CHA VILLALPANDO Ot 530.10 ESOPHAGITIS NOS 01/17/2020 LUCINA CHA VILLALPANDO Ot 553.3 DIAPHRAGMATIC HERNIA 01/17/2020 LUCINA CHA VILLALPANDO Ot 787.20 DYSPHAGIA, UNSPECIFIED 01/17/2020 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 Ot 486 PNEUMONIA, ORGANISM NOS 01/17/2020 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 Ot 789.00 ABDOMINAL PAIN, UNSPECIFIED SITE 01/17/2020 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 Ot 959.6 HIP THIGH INJURY NOS 01/17/2020 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 Ot E000.8 OTHER EXTERNAL CAUSE STATUS 01/17/2020 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 Ot E849.4 ACCID IN RECREATION AREA 01/17/2020 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 Ot E888.9 FALL NOS 01/17/2020 CAIO NICKERSON, PETRA Raymond Ot 724. 5 BACKACHE NOS 01/17/2020 PETRA KEARNEY DC Ot 786. 50 CHEST PAIN NOS 01/17/2020 PETRA KEARNEY DC Ot 724. 1 PAIN IN THORACIC SPINE 01/17/2020 PETRA KEARNEY DC Ot 786. 50 CHEST PAIN NOS 01/17/2020 RUDOLPH KENT DO Ot 414.00 CORON ATHEROSCLER NOS TYPE VESSEL, NATIV 01/17/2020 [facility], RDUOLPH Raymond Ot 786.50 CHEST PAIN NOS 01/17/2020 [facility] , RUDOLPH Raymond Ot I25.10 ATHSCL HEART DISEASE OF [place] CORONARY 01/17/2020 [place] , RUDOLPH Raymond Ot R07.9 CHEST PAIN, UNSPECIFIED 01/17/2020 [facility], CHA Ot R10.9 UNSPECIFIED ABDOMINAL PAIN 01/17/2020 [facility], CHA Ot Z01.818 ENCOUNTER FOR OTHER PREPROCEDURAL EXAMIN 01/17/2020 [facility], CHA Ot 553.20 VENTRAL HERNIA NOS 01/17/2020 [facility], CHA Ot V81.5 SCREEN FOR NEPHROPATHY 01/17/2020 LUKASZ CROWLEY APRN Ot F17.210 NICOTINE DEPENDENCE, CIGARETTES, UNCOMPL 01/17/2020 LUKASZ CROWLEY APRN Ot J44.9 CHRONIC OBSTRUCTIVE PULMONARY DISEASE, U 01/17/2020 LUKASZ CROWLEY APRN Ot R06.00 DYSPNEA, UNSPECIFIED 01/17/2020 FRANDY DE LA ROSA Ot E11.9 TYPE 2 DIABETES MELLITUS WITHOUT COMPLIC 01/17/2020 FRANDY DE LA ROSA Ot E78.2 MIXED HYPERLIPIDEMIA 01/17/2020 FRANDY DE LA ROSA Ot I10 ESSENTIAL (PRIMARY) HYPERTENSION 01/17/2020 FRANDY DE LA ROSA Ot I25.10 ATHSCL HEART DISEASE OF [place] CORONARY 01/17/2020 FRANDY DE LA ROSA Ot E11.9 TYPE 2 DIABETES MELLITUS WITHOUT COMPLIC 01/17/2020 FRANDY DE LA ROSA Ot E78.2 MIXED HYPERLIPIDEMIA 01/17/2020 FRANDY DE LA ROSA Ot I10 ESSENTIAL (PRIMARY) HYPERTENSION 01/17/2020 FRANDY DE LA ROSA Ot I25.10 ATHSCL HEART DISEASE OF [place] CORONARY 01/17/2020 LUKASZ CROWLEY APRN Ot F17.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, UNSPECIFIED, UNCOMP 01/17/2020 LUKASZ CROWLEY APRN Ot J44.9 CHRONIC OBSTRUCTIVE PULMONARY DISEASE, U 01/17/2020 [facility] Ot M94.8X6 OTHER SPECIFIED DISORDERS OF CARTILAGE, 01/17/2020 YOLI VILLALPANDO, RUDOLPH Raymond Ot S83.242A OTH TEAR OF MEDIAL MENISCUS, CURRENT INJ 01/17/2020 YOLI VILLALPANDO, RUDOLPH Raymond Ot S83.282A OTH TEAR OF LAT MENSC, CURRENT INJURY, L 01/17/2020 YOLI VILLALPANDO, RUDOLPH Raymond Ot X58.XXXA EXPOSURE TO OTHER SPECIFIED FACTORS, INI 01/17/2020 YOLI VILLALPANDO, RUDOLPH Raymond Ot Y99.8 OTHER EXTERNAL CAUSE STATUS 01/17/2020 YOLI VILLALPANDO, RUDOLPH Raymond Ot Z12.31 ENCNTR SCREEN MAMMOGRAM FOR MALIGNANT NE 01/17/2020 YOLI VILLALPANDO, RUDOLPH Raymond Ot M40.209 UNSPECIFIED KYPHOSIS, SITE UNSPECIFIED 01/17/2020 YOLI VILLALPANDO, RUDOLPH Raymond Ot M85.852 OT DISRD OF BONE DENSITY AND STRUCTURE, 01/17/2020 YOLI VILLALPANDO, RUDOLPH Raymond Ot Z78.0 ASYMPTOMATIC MENOPAUSAL STATE 01/17/2020 EARNESTINE ALEXANDRE, RAY Davis Ot L98 .9 DISORDER OF THE SKIN AND SUBCUTANEOUS TI 01/17/2020 YOLI VILLALPANDO, RUDOLPH Raymond Ot M77.32 CALCANEAL SPUR, LEFT FOOT 01/17/2020 YOLI VILLALPANDO, RUDOLPH Raymond Ot S79.912A UNSPECIFIED INJURY OF LEFT HIP, INITIAL 01/17/2020 YOLI VILLALPANDO, RUDOLPH Raymond Ot W19.XXXA UNSPECIFIED FALL, INITIAL ENCOUNTER 01/17/2020 YOLI VILLALPANDO, RUDOLPH Raymond Ot F09 UNSP MENTAL DISORDER DUE TO KNOWN PHYSIO 01/17/2020 YOLI VILLALPANDO, RUDOLPH Raymond Ot G43.909 MIGRAINE, UNSP, NOT INTRACTABLE, WITHOUT 01/17/2020 KENT , RUDOLPH Raymond Ot W19.XXXA UNSPECIFIED FALL, INITIAL ENCOUNTER 01/17/2020 YOLI VILLALPANDO, RUDOLPH Raymond Ot M25.78 OSTEOPHYTE, VERTEBRAE 01/17/2020 YOLI VILLALPANDO, RUDOLPH Raymond Ot M43.16 SPONDYLOLISTHESIS, LUMBAR REGION 01/17/2020 YOLI VILLALPANDO, RUDOLPH Raymond Ot M46.86 OTHER SPECIFIED INFLAMMATORY SPONDYLOPAT 01/17/2020 YOIL VILLALPANDO, RUDOLPH Raymond Ot M47.27 OTHER SPONDYLOSIS WITH RADICULOPATHY, CATHLEEN 01/17/2020 RUDOLPH KENT DO, Ot M48.061 SPINAL STENOSIS, LUMBAR REGION WITHOUT N 01/17/2020 YOLI VILLALPANDO, RUDOLPH Raymond Ot M51.16 INTERVERTEBRAL DISC DISORDERS W RADICULO 01/17/2020 RUDOLPH KENT DO Ot M99.73 CONN TISS AND DISC STENOS OF INTVRT FORA 01/17/2020 RUDOLPH KENT DO Ot S99.912A UNSPECIFIED INJURY OF LEFT ANKLE, INITIA 01/17/2020 LIVAN ALEXANDRE, JUAN Raymond Ot E11. 51 TYPE 2 DIABETES W DIABETIC PERIPHERAL AN 01/17/2020 LIVAN ALEXANDRE, JUAN Raymond Ot E78. 2 MIXED HYPERLIPIDEMIA 01/17/2020 LIVAN ALEXANDRE, JUAN Raymond Ot R06. 09 OTHER FORMS OF DYSPNEA 01/17/2020 LIVAN ALEXANDRE, JUAN Raymond Ot R07. 89 OTHER CHEST PAIN 01/17/2020 LIVAN ALEXANDRE, JUAN Raymond Ot E11. 51 TYPE 2 DIABETES W DIABETIC PERIPHERAL AN 01/17/2020 LIVAN ALEXANDRE, JUAN Raymond Ot E78. 2 MIXED HYPERLIPIDEMIA 01/17/2020 LIVAN ALEXANDRE, JUAN Raymond Ot R06. 09 OTHER FORMS OF DYSPNEA 01/17/2020 LIVAN ALEXANDRE, JUAN Raymond Ot R07. 89 OTHER CHEST PAIN 01/17/2020 LUKASZ CROWLEY 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 Ot F12.10 CANNABIS ABUSE, UNCOMPLICATED 01/17/2020 LUKASZ CROWLEY 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 Ot F17.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, UNSPECIFIED, UNCOMP 01/17/2020 LUKASZ CROWLEY 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 Ot G47.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 01/17/2020 LUKASZ CROWLEY 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 Ot J30.9 ALLERGIC RHINITIS, UNSPECIFIED 01/17/2020 LUKASZ CROWLEY 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 Ot J42 UNSPECIFIED CHRONIC BRONCHITIS 01/17/2020 LUKASZ CROWLEY 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 Ot J44.9 CHRONIC OBSTRUCTIVE PULMONARY DISEASE, U 01/17/2020 LUKASZ CROWLEY 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 Ot Z99.81 DEPENDENCE ON SUPPLEMENTAL OXYGEN 01/17/2020 LUKASZ CROWLEY 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 Ot F12.10 CANNABIS ABUSE, UNCOMPLICATED 01/17/2020 LUKASZ CROWLEY 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 Ot F17.210 NICOTINE DEPENDENCE, CIGARETTES, UNCOMPL 01/17/2020 LUKASZ CROWLEY 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 Ot G47.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 01/17/2020 LUKASZ CROWLEY APRN Ot J18.1 LOBAR PNEUMONIA, UNSPECIFIED ORGANISM 01/17/2020 LUKASZ CROWLEY APRN Ot J30.9 ALLERGIC RHINITIS, UNSPECIFIED 01/17/2020 LUKASZ CROWLEY APRN Ot J44.9 CHRONIC OBSTRUCTIVE PULMONARY DISEASE, U 01/17/2020 LUKASZ CROWLEY APRN Ot Z12.2 ENCNTR SCREEN FOR MALIGNANT NEOPLASM OF 01/17/2020 LUKASZ CROWLEY APRN Ot Z99.81 DEPENDENCE ON SUPPLEMENTAL OXYGEN 01/17/2020 RUDOLPH KENT DO Ot Z45.2 ENCOUNTER FOR ADJUSTMENT AND MANAGEMENT 01/17/2020 SARAH ROBERTSON Ot 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, CERVICOTHORACIC REGIO 01/17/2020 SARAH ROBERTSON Ot M48.02 SPINAL STENOSIS, CERVICAL REGION 01/17/2020 SARAH ROBERTSON Ot M50.11 CERV DISC DISORDER WITH RADICULOPATHY, H 01/17/2020 SARAH ROBERTSON Ot M50.121 CERVICAL DISC DISORDER AT C4-C5 LEVEL [place] 01/17/2020 CHA VERDUGO DO Ot V72.84 EXAM PRE-OPERATIVE NOS 01/17/2020 Ot V58.81 FIT /ADJ VASCULAR CATHETER 01/17/2020 CHA VERDUGO DO Ot 879.2 OPN WND ANTERIOR ABDOMEN 01/17/2020 CHA VERDUGO DO Ot E000.8 OTHER EXTERNAL CAUSE STATUS 01/17/2020 CHA VERDUGO DO Ot E928.9 ACCIDENT NOS 01/17/2020 JUAN LICONA MD Ot 272. 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 0 MITRAL VALVE DISORDER 01/17/2020 JUAN LICONA MD Ot 786. 09 RESPIRATORY ABNORM NEC 01/17/2020 JUAN LICONA MD Ot 786. 50 CHEST PAIN NOS 01/17/2020 JUAN LICONA MD Ot V46. 2 SUPPLEMENTAL OXYGEN 01/17/2020 JUAN LICONA MD Ot 272. 4 HYPERLIPIDEMIA NEC/NOS 01/17/2020 JUAN LICONA MD Ot 786. 09 RESPIRATORY ABNORM NEC 01/17/2020 JUAN LICONA MD Ot 786. 50 CHEST PAIN NOS 01/17/2020 JUAN LICONA MD Ot V46. 2 SUPPLEMENTAL OXYGEN 01/17/2020 RUDOLPH KENT DO Ot V76.12 OT SCREEN MAMMO-MALIGN NEOPLASM OF [place] 01/17/2020 QING TAO DO Ot 305. 1 TOBACCO USE DISORDER 01/17/2020 QING TAO DO Ot 496 CHR AIRWAY OBSTRUCT NEC 01/17/2020 QING TAO DO Ot 786. 09 RESPIRATORY ABNORM NEC 01/17/2020 KASIE DPM, ANDREA Q Ot 355. 5 TARSAL TUNNEL SYNDROME 01/17/2020 LUCINA CHA VILLALPANDO Ot V72.84 EXAM PRE-OPERATIVE NOS 01/17/2020 LUCINA CHA VILLALPANDO Ot 530.10 ESOPHAGITIS NOS 01/17/2020 LUCINA CHA VILLALPANDO Ot 553.3 DIAPHRAGMATIC HERNIA 01/17/2020 CHA VERDUGO DO Ot 787.20 DYSPHAGIA, UNSPECIFIED 01/17/2020 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 Ot 486 PNEUMONIA, ORGANISM NOS 01/17/2020 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 Ot 789.00 ABDOMINAL PAIN, UNSPECIFIED SITE 01/17/2020 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 Ot 959.6 HIP THIGH INJURY NOS 01/17/2020 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 Ot E000.8 OTHER EXTERNAL CAUSE STATUS 01/17/2020 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 Ot E849.4 ACCID IN RECREATION AREA 01/17/2020 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 Ot E888.9 FALL NOS 01/17/2020 CAIOPETRA DENSON DC Ot 724. 5 BACKACHE NOS 01/17/2020 PETRA KEARNEY DC Ot 786. 50 CHEST PAIN NOS 01/17/2020 PETRA KEARNEY DC Ot 724. 1 PAIN IN THORACIC SPINE 01/17/2020 PETRA KEARNEY DC Ot 786. 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[place] CORONARY 01/17/2020 RUDOLPH KENT DO Ot R07.9 CHEST PAIN, UNSPECIFIED 01/17/2020 [facility], CHA Ot R10.9 UNSPECIFIED ABDOMINAL PAIN 01/17/2020 [facility] Ot Z01.818 ENCOUNTER FOR OTHER PREPROCEDURAL EXAMIN 01/17/2020 [facility] CHA VILLALPANDO Ot 553.20 VENTRAL HERNIA NOS 01/17/2020 [facility], CHA Ot V81.5 SCREEN FOR NEPHROPATHY 01/17/2020 LUKASZ CROWLEY APRN Ot F17.210 NICOTINE DEPENDENCE, CIGARETTES, UNCOMPL 01/17/2020 LUKASZ CROWLEY APRN Ot J44.9 CHRONIC OBSTRUCTIVE PULMONARY DISEASE, U 01/17/2020 LUKASZ CROLWEY APRN Ot R06.00 DYSPNEA, UNSPECIFIED 01/17/2020 FRANDY DE LA ROSA Ot E11.9 TYPE 2 DIABETES MELLITUS WITHOUT COMPLIC 01/17/2020 FRANDY DE LA ROSA Ot E78.2 MIXED HYPERLIPIDEMIA 01/17/2020 FRANDY DE LA ROSA Ot I10 ESSENTIAL (PRIMARY) HYPERTENSION 01/17/2020 FRANDY DE LA ROSA Ot I25.10 ATHSCL HEART DISEASE OF [place] CORONARY 01/17/2020 FRANDY DE LA ROSA Ot E11.9 TYPE 2 DIABETES MELLITUS WITHOUT COMPLIC 01/17/2020 FRANDY DE LA ROSA Ot E78.2 MIXED HYPERLIPIDEMIA 01/17/2020 FRANDY DE LA ROSA Ot I10 ESSENTIAL (PRIMARY) HYPERTENSION 01/17/2020 FRANDY DE LA ROSA Ot I25.10 ATHSCL HEART DISEASE OF [place] CORONARY 01/17/2020 LUKASZ CROWLEY APRN Ot F17.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, UNSPECIFIED, UNCOMP 01/17/2020 LUKASZ CROWLEY APRN Ot J44.9 CHRONIC OBSTRUCTIVE PULMONARY DISEASE, U 01/17/2020 RUDOLPH KENT DO Ot M94.8X6 OTHER SPECIFIED DISORDERS OF [place], 01/17/2020 RUDOLPH KENT DO Ot S83.242A OTH TEAR OF MEDIAL MENISCUS, CURRENT INJ 01/17/2020 YOLI VILLALPANDO, RUDOLPH Raymond Ot S83.282A OTH TEAR OF LAT MENSC, CURRENT INJURY, L 01/17/2020 RUDOLPH KENT DO, Ot X58.XXXA EXPOSURE TO OTHER SPECIFIED FACTORS, INI 01/17/2020 YOLI VILLALPANDO, RUDOLPH Raymond Ot Y99.8 OTHER EXTERNAL CAUSE STATUS 01/17/2020 YOLI VILLALPANDO, RUDOLPH Raymond Ot Z12.31 ENCNTR SCREEN MAMMOGRAM FOR MALIGNANT NE 01/17/2020 RUDOLPH KENT DO, Ot M40.209 UNSPECIFIED KYPHOSIS, SITE UNSPECIFIED 01/17/2020 YOLI VILLALPANDO, RUDOLPH Raymond Ot M85.852 OT DISRD OF BONE DENSITY AND STRUCTURE, 01/17/2020 RUODLPH KENT DO, Ot Z78.0 ASYMPTOMATIC MENOPAUSAL STATE 01/17/2020 EARNESTINE ALEXANDRE, RAY Davis Ot L98 .9 DISORDER OF THE SKIN AND SUBCUTANEOUS TI 01/17/2020 RUDOLPH KENT DO, Ot M77.32 CALCANEAL SPUR, LEFT FOOT 01/17/2020 YOLI VILLALPANDO, RUDOLPH Raymond Ot S79.912A UNSPECIFIED INJURY OF LEFT HIP, INITIAL 01/17/2020 RUDOLPH KENT DO, Ot W19.XXXA UNSPECIFIED FALL, INITIAL ENCOUNTER 01/17/2020 RUDOLPH KENT DO Ot F09 UNSP MENTAL DISORDER DUE TO KNOWN PHYSIO 01/17/2020 YOLI VILLALPANDO, RUDOLPH Raymond Ot G43.909 MIGRAINE, UNSP, NOT INTRACTABLE, WITHOUT 01/17/2020 KENT , RUDOLPH Raymond Ot W19.XXXA UNSPECIFIED FALL, INITIAL ENCOUNTER 01/17/2020 RUDOLPH KENT DO, Ot M25.78 OSTEOPHYTE, VERTEBRAE 01/17/2020 RUDOLPH KENT DO, Ot M43.16 SPONDYLOLISTHESIS, LUMBAR REGION 01/17/2020 RUDOLPH KENT DO, Ot M46.86 OTHER SPECIFIED INFLAMMATORY SPONDYLOPAT 01/17/2020 RUDOLPH KENT DO, Ot M47.27 OTHER SPONDYLOSIS WITH RADICULOPATHY, CATHLEEN 01/17/2020 RUDOLPH KENT DO, Ot M48.061 SPINAL STENOSIS, LUMBAR REGION WITHOUT N 01/17/2020 RUDOLPH KENT DO Ot M51.16 INTERVERTEBRAL DISC DISORDERS W RADICULO 01/17/2020 RUDOLPH KENT DO, Ot M99.73 CONN TISS AND DISC STENOS OF INTVRT FORA 01/17/2020 RUDOLPH KENT DO, Ot S99.912A UNSPECIFIED INJURY OF LEFT ANKLE, INITIA 01/17/2020 LIVAN ALEXANDRE, JUAN Raymond Ot E11. 51 TYPE 2 DIABETES W DIABETIC PERIPHERAL AN 01/17/2020 LIVAN ALEXANDRE, JUAN Raymond Ot E78. 2 MIXED HYPERLIPIDEMIA 01/17/2020 LIVAN ALEXANDRE, JUAN Raymond Ot R06. 09 OTHER FORMS OF DYSPNEA 01/17/2020 LIVAN ALEXANDRE, JUAN Raymond Ot R07. 89 OTHER CHEST PAIN 01/17/2020 LIVAN ALEXANDRE, JUAN Raymond Ot E11. 51 TYPE 2 DIABETES W DIABETIC PERIPHERAL AN 01/17/2020 LIVAN ALEXANDRE, JUAN Raymond Ot E78. 2 MIXED HYPERLIPIDEMIA 01/17/2020 LIVAN ALEXANDRE, JUAN Raymond Ot R06. 09 OTHER FORMS OF DYSPNEA 01/17/2020 LIVAN ALEXANDRE, JUAN Raymond Ot R07. 89 OTHER CHEST PAIN 01/17/2020 LUKASZ CROWLEY 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 Ot F12.10 CANNABIS ABUSE, UNCOMPLICATED 01/17/2020 LUKASZ CROWLEY 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 Ot F17.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, UNSPECIFIED, UNCOMP 01/17/2020 LUKASZ CROWLEY 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 Ot G47.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 01/17/2020 LUKASZ CROWLEY 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 Ot J30.9 ALLERGIC RHINITIS, UNSPECIFIED 01/17/2020 LUKASZ CROWLEY 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 Ot J42 UNSPECIFIED CHRONIC BRONCHITIS 01/17/2020 LUKASZ CROWLEY 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 Ot J44.9 CHRONIC OBSTRUCTIVE PULMONARY DISEASE, U 01/17/2020 LUKASZ CROWLEY 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 Ot Z99.81 DEPENDENCE ON SUPPLEMENTAL OXYGEN 01/17/2020 LUKASZ CROWLEY 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 Ot F12.10 CANNABIS ABUSE, UNCOMPLICATED 01/17/2020 LUKASZ CROWLEY 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 Ot F17.210 NICOTINE DEPENDENCE, CIGARETTES, UNCOMPL 01/17/2020 LUKASZ CROWLEY 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 Ot G47.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 01/17/2020 LUKASZ CROWLEY 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 Ot J18.1 LOBAR PNEUMONIA, UNSPECIFIED ORGANISM 01/17/2020 LUKASZ CROWLEY 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 Ot J30.9 ALLERGIC RHINITIS, UNSPECIFIED 01/17/2020 LUKASZ CROWLEY APRN Ot J44.9 CHRONIC OBSTRUCTIVE PULMONARY DISEASE, U 01/17/2020 LUKASZ CROWLEY APRN Ot Z12.2 ENCNTR SCREEN FOR MALIGNANT NEOPLASM OF 01/17/2020 LUKASZ CROWLEY APRN Ot Z99.81 DEPENDENCE ON SUPPLEMENTAL OXYGEN 01/17/2020 RUDOLPH KENT DO, Ot Z45.2 ENCOUNTER FOR ADJUSTMENT AND MANAGEMENT 01/17/2020 SARAH ROBERTSON Ot 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, CERVICOTHORACIC REGIO 01/17/2020 SARAH ROBERTSON Ot M48.02 SPINAL STENOSIS, CERVICAL REGION 01/17/2020 SARAH ROBERTSON Ot M50.11 CERV DISC DISORDER WITH RADICULOPATHY, H 01/17/2020 SARAH ROBERTSON Ot M50.121 CERVICAL DISC DISORDER AT C4-C5 LEVEL [place] 01/19/2020 CHA VERDUGO DO Ot V72.84 EXAM PRE-OPERATIVE NOS 01/19/2020 Ot V58.81 FIT /ADJ VASCULAR CATHETER 01/19/2020 CHA VERDUGO DO Ot 879.2 OPN WND ANTERIOR ABDOMEN 01/19/2020 CHA VERDUGO DO Ot E000.8 OTHER EXTERNAL CAUSE STATUS 01/19/2020 CHA VERDUGO DO Ot E928.9 ACCIDENT NOS 01/19/2020 JUAN LICONA MD Ot 272. 4 HYPERLIPIDEMIA NEC/NOS 01/19/2020 JUAN LICONA MD Ot 397. 0 TRICUSPID VALVE DISEASE 01/19/2020 JUAN LICONA MD Ot 424. 0 MITRAL VALVE DISORDER 01/19/2020 JUAN LICONA MD Ot 786. 09 RESPIRATORY ABNORM NEC 01/19/2020 JUAN LICONA MD Ot 786. 50 CHEST PAIN NOS 01/19/2020 JUAN LICONA MD Ot V46. 2 SUPPLEMENTAL OXYGEN 01/19/2020 JUAN LICONA MD Ot 272. 4 HYPERLIPIDEMIA NEC/NOS 01/19/2020 JUAN LICONA MD Ot 786. 09 RESPIRATORY ABNORM NEC 01/19/2020 JUAN LICONA MD Ot 786. 50 CHEST PAIN NOS 01/19/2020 JUAN LICONA MD Ot V46. 2 SUPPLEMENTAL OXYGEN 01/19/2020 RUDOLPH KENT DO, Ot V76.12 OTH SCREEN MAMMO-MALIGN NEOPLASM OF JEAN[place] 01/19/2020 QING TAO DO Ot 305. 1 TOBACCO USE DISORDER 01/19/2020 QING TAO DO Ot 496 CHR AIRWAY OBSTRUCT NEC 01/19/2020 QING TAO DO Ot 786. 09 RESPIRATORY ABNORM NEC 01/19/2020 KASIE DPM, ANDREA Q Ot 355. 5 TARSAL TUNNEL SYNDROME 01/19/2020 LUCINA CHA VILLALPANDO Ot V72.84 EXAM PRE-OPERATIVE NOS 01/19/2020 [facility] CHA VILLALPANDO Ot 530.10 ESOPHAGITIS NOS 01/19/2020 [facility] CHA VILLALPANDO Ot 553.3 DIAPHRAGMATIC HERNIA 01/19/2020 LUCINA CHA VILLALPANDO Ot 787.20 DYSPHAGIA, UNSPECIFIED 01/19/2020 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 Ot 486 PNEUMONIA, ORGANISM NOS 01/19/2020 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 Ot 789.00 ABDOMINAL PAIN, UNSPECIFIED SITE 01/19/2020 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 Ot 959.6 HIP THIGH INJURY NOS 01/19/2020 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 Ot E000.8 OTHER EXTERNAL CAUSE STATUS 01/19/2020 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 Ot E849.4 ACCID IN RECREATION AREA 01/19/2020 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 Ot E888.9 FALL NOS 01/19/2020 PETRA KEARNEY DC Ot 724. 5 BACKACHE NOS 01/19/2020 PETRA KEARNEY DC Ot 786. 50 CHEST PAIN NOS 01/19/2020 PETRA KEARNEY DC Ot 724. 1 PAIN IN THORACIC SPINE 01/19/2020 PETRA KEARNEY DC Ot 786. 50 CHEST PAIN NOS 01/19/2020 RUDOLPH KENT DO Ot 414.00 CORON ATHEROSCLER NOS TYPE VESSEL, NATIV 01/19/2020 RUDOLPH KENT DO Ot 786.50 CHEST PAIN NOS 01/19/2020 RUDOLPH KENT DO Ot I25.10 ATHSCL HEART DISEASE OF [place] CORONARY 01/19/2020 RUDOLPH KENT DO Ot R07.9 CHEST PAIN, UNSPECIFIED 01/19/2020 LUCINA DOCHA Ot R10.9 UNSPECIFIED ABDOMINAL PAIN 01/19/2020 LUCINA DOCHA Ot Z01.818 ENCOUNTER FOR OTHER PREPROCEDURAL EXAMIN 01/19/2020 LUCINA DOCHA Ot 553.20 VENTRAL HERNIA NOS 01/19/2020 [facility] CHA Ot V81.5 SCREEN FOR NEPHROPATHY 01/19/2020 LUKASZ CROWLEY APRN Ot F17.210 NICOTINE DEPENDENCE, CIGARETTES, UNCOMPL 01/19/2020 LUKASZ CROWLEY APRN Ot J44.9 CHRONIC OBSTRUCTIVE PULMONARY DISEASE, U 01/19/2020 LUKASZ CROWLEY APRN Ot R06.00 DYSPNEA, UNSPECIFIED 01/19/2020 FRANDY DE LA ROSA Ot E11.9 TYPE 2 DIABETES MELLITUS WITHOUT COMPLIC 01/19/2020 FRANDY DE LA ROSA Ot E78.2 MIXED HYPERLIPIDEMIA 01/19/2020 FRANDY DE LA ROSA Ot I10 ESSENTIAL (PRIMARY) HYPERTENSION 01/19/2020 FRANDY DE LA ROSA Ot I25.10 ATHSCL HEART DISEASE OF [place] CORONARY 01/19/2020 FRANDY DE LA ROSA Ot E11.9 TYPE 2 DIABETES MELLITUS WITHOUT COMPLIC 01/19/2020 FRANDY DE LA ROSA Ot E78.2 MIXED HYPERLIPIDEMIA 01/19/2020 FRANDY DE LA ROSA Ot I10 ESSENTIAL (PRIMARY) HYPERTENSION 01/19/2020 FRANDY DE LA ROSA Ot I25.10 ATHSCL HEART DISEASE OF [place] CORONARY 01/19/2020 LUKASZ CROWLEY APRN Ot F17.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, UNSPECIFIED, UNCOMP 01/19/2020 LUKASZ CROWLEY APRN Ot J44.9 CHRONIC OBSTRUCTIVE PULMONARY DISEASE, U 01/19/2020 RUDOLPH KENT DO Ot M94.8X6 OTHER SPECIFIED DISORDERS OF [place]ARTIL[place], 01/19/2020 RUDOLPH KENT DO, Ot S83.242A OTH TEAR OF MEDIAL MENISCUS, CURRENT INJ 01/19/2020 RUDOLPH KENT DO, Ot S83.282A OTH TEAR OF LAT MENSC, CURRENT INJURY, L 01/19/2020 RUDOLPH KENT DO Ot X58.XXXA EXPOSURE TO OTHER SPECIFIED FACTORS, INI 01/19/2020 YOLI VILLALPANDO, RUDOLPH Raymond Ot Y99.8 OTHER EXTERNAL CAUSE STATUS 01/19/2020 YOLI VILLALPANDO, RUDOLPH Raymond Ot Z12.31 ENCNTR SCREEN MAMMOGRAM FOR MALIGNANT NE 01/19/2020 YOLI VILLALPANDO, RUDOLPH Raymond Ot M40.209 UNSPECIFIED KYPHOSIS, SITE UNSPECIFIED 01/19/2020 YOLI VILLALPANDO, RUDOLPH Raymond Ot M85.852 [facility] DISRD OF BONE DENSITY AND STRUCTURE, 01/19/2020 YOLI VILLALPANDO, RUDOLPH Raymond Ot Z78.0 ASYMPTOMATIC MENOPAUSAL STATE 01/19/2020 EARNESTINE ALEXANDRE, RAY Davis Ot L98 .9 DISORDER OF THE SKIN AND SUBCUTANEOUS TI 01/19/2020 YOLI VILLALPANDO, RUDOLPH Raymond Ot M77.32 CALCANEAL SPUR, LEFT FOOT 01/19/2020 YOLI VILLALPANDO, RUDOLPH Raymond Ot S79.912A UNSPECIFIED INJURY OF LEFT HIP, INITIAL 01/19/2020 RUDOLPH KENT DO, Ot W19.XXXA UNSPECIFIED FALL, INITIAL ENCOUNTER 01/19/2020 YOLI VILLALPANDO, RUDOLPH Raymond Ot F09 UNSP MENTAL DISORDER DUE TO KNOWN PHYSIO 01/19/2020 YOLI VILLALPANDO, RUDOLPH Raymond Ot G43.909 MIGRAINE, UNSP, NOT INTRACTABLE, WITHOUT 01/19/2020 KENT DO, RUDOLPH Raymond Ot W19.XXXA UNSPECIFIED FALL, INITIAL ENCOUNTER 01/19/2020 RUDOLPH KENT DO, Ot M25.78 OSTEOPHYTE, VERTEBRAE 01/19/2020 RUDOLPH KENT DO, Ot M43.16 SPONDYLOLISTHESIS, LUMBAR REGION 01/19/2020 YLOI VILLALPANDO, RUDOLPH Raymond Ot M46.86 OTHER SPECIFIED INFLAMMATORY SPONDYLOPAT 01/19/2020 YOLI VILLALPANDO, RUDOLPH Raymond Ot M47.27 OTHER SPONDYLOSIS WITH RADICULOPATHY, CATHLEEN 01/19/2020 YOLI VILLALPANDO, RUDOLPH Raymond Ot M48.061 SPINAL STENOSIS, LUMBAR REGION WITHOUT N 01/19/2020 RUDOLPH KENT DO, Ot M51.16 INTERVERTEBRAL DISC DISORDERS W RADICULO 01/19/2020 YOLI VILLALPANDO, RUDOLPH Raymond Ot M99.73 CONN TISS AND DISC STENOS OF INTVRT FORA 01/19/2020 YOLI VILLALPANDO, RUDOLPH Raymond Ot S99.912A UNSPECIFIED INJURY OF LEFT ANKLE, INITIA 01/19/2020 LIVAN ALEXANDRE, JUAN Raymond Ot E11. 51 TYPE 2 DIABETES W DIABETIC PERIPHERAL AN 01/19/2020 LIVAN ALEXANDRE, JUAN Raymond Ot E78. 2 MIXED HYPERLIPIDEMIA 01/19/2020 LIVAN ALEXANDRE, JUAN Raymond Ot R06. 09 OTHER FORMS OF DYSPNEA 01/19/2020 LIVAN ALEXANDRE, JUAN Raymond Ot R07. 89 OTHER CHEST PAIN 01/19/2020 LIVAN ALEXANDRE, JUAN Raymond Ot E11. 51 TYPE 2 DIABETES W DIABETIC PERIPHERAL AN 01/19/2020 LIVAN ALEXANDRE, JUAN Raymond Ot E78. 2 MIXED HYPERLIPIDEMIA 01/19/2020 LIVAN ALEXANDRE, JUAN Raymond Ot R06. 09 OTHER FORMS OF DYSPNEA 01/19/2020 LIVAN ALEXANDRE, JUAN Raymond Ot R07. 89 OTHER CHEST PAIN 01/19/2020 CARMELINA CROWLEYINE E 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 Ot F12.10 CANNABIS ABUSE, UNCOMPLICATED 01/19/2020 CARMELINA CROWLEYINE E 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 Ot F17.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, UNSPECIFIED, UNCOMP 01/19/2020 CARMELINA CROWLEYINE E 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 Ot G47.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 01/19/2020 CARMELINA CROWLEYINE E 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 Ot J30.9 ALLERGIC RHINITIS, UNSPECIFIED 01/19/2020 CARMELINA CROWLEYINE E 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 Ot J42 UNSPECIFIED CHRONIC BRONCHITIS 01/19/2020 CARMELINA CROWLEYINE E 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 Ot J44.9 CHRONIC OBSTRUCTIVE PULMONARY DISEASE, U 01/19/2020 CARMELINA CROWLEYINE E 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 Ot Z99.81 DEPENDENCE ON SUPPLEMENTAL OXYGEN 01/19/2020 CARMELINA CROWLEYINE E 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 Ot F12.10 CANNABIS ABUSE, UNCOMPLICATED 01/19/2020 CARLINE LUKASZ E 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 Ot F17.210 NICOTINE DEPENDENCE, CIGARETTES, UNCOMPL 01/19/2020 CARMELINA CROWLEYINE E 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 Ot G47.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 01/19/2020 CARMELINA CROWLEYINE E 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 Ot J18.1 LOBAR PNEUMONIA, UNSPECIFIED ORGANISM 01/19/2020 CARMELINA CROWLEYINE E 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 Ot J30.9 ALLERGIC RHINITIS, UNSPECIFIED 01/19/2020 CARMELINA CROWLEYINE E 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 Ot J44.9 CHRONIC OBSTRUCTIVE PULMONARY DISEASE, U 01/19/2020 CARMELINA CROWLEYINE E 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 Ot Z12.2 ENCNTR SCREEN FOR MALIGNANT NEOPLASM OF 01/19/2020 LUKASZ CROWLEY DEJA Ot Z99.81 DEPENDENCE ON SUPPLEMENTAL OXYGEN 01/19/2020 RUDOLPH KENT DO Ot Z45.2 ENCOUNTER FOR ADJUSTMENT AND MANAGEMENT 01/19/2020 SARAH ROBERTSON Ot 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, CERVICOTHORACIC REGIO 01/19/2020 SARAH ROBERTSON Ot M48.02 SPINAL STENOSIS, CERVICAL REGION 01/19/2020 SARAH ROBERTSON Ot M50.11 CERV DISC DISORDER WITH RADICULOPATHY, H 01/19/2020 SARAH ROBERTSON Ot M50.121 CERVICAL DISC DISORDER AT C4-C5 LEVEL [place] 01/20/2020 LUCINACHA DIANA DO Ot V72.84 EXAM PRE-OPERATIVE NOS 01/20/2020 Ot V58.81 FIT /ADJ VASCULAR CATHETER [facility]/20/[facility].2 OPN WND ANTERIOR ABDOMEN 01/20/2020 [facility] Ot E000.8 OTHER EXTERNAL CAUSE STATUS 01/20/2020 [facility] CHA VILLALPANDO Ot E928.9 ACCIDENT NOS 01/20/2020 JUAN LICONA MD Ot 272. 4 HYPERLIPIDEMIA NEC/NOS 01/20/2020 JUAN LICONA MD Ot 397. 0 TRICUSPID VALVE DISEASE 01/20/2020 JUAN LICONA MD Ot 424. 0 MITRAL VALVE DISORDER 01/20/2020 JUAN LICONA MD Ot 786. 09 RESPIRATORY ABNORM NEC 01/20/2020 JUAN LICONA MD Ot 786. 50 CHEST PAIN NOS 01/20/2020 JUAN LICONA MD Ot V46. 2 SUPPLEMENTAL OXYGEN 01/20/2020 JUAN LCIONA MD Ot 272. 4 HYPERLIPIDEMIA NEC/NOS 01/20/2020 JUAN LICONA MD Ot 786. 09 RESPIRATORY ABNORM NEC 01/20/2020 JUAN LICONA MD Ot 786. 50 CHEST PAIN NOS 01/20/2020 JUAN LICONA MD Ot V46. 2 SUPPLEMENTAL OXYGEN 01/20/2020 RUDOLPH KENT DO Ot V76.12 OT SCREEN MAMMO-MALIGN NEOPLASM OF JEANETH 01/20/2020 QING TAO DO Ot 305. 1 TOBACCO USE DISORDER 01/20/2020 QING TAO DO Ot 496 CHR AIRWAY OBSTRUCT NEC 01/20/2020 QING TAO DO Ot 786. 09 RESPIRATORY ABNORM NEC 01/20/2020 KASIE DPM, ANDREA Q Ot 355. 5 TARSAL TUNNEL SYNDROME 01/20/2020 [facility], CHA Ot V72.84 EXAM PRE-OPERATIVE NOS 01/20/2020 [facility], CHA Ot 530.10 ESOPHAGITIS NOS 01/20/2020 [facility], DIANNTIE Ot 553.3 DIAPHRAGMATIC HERNIA 01/20/2020 [facility], MEDARDOROUTIE Ot 787.20 DYSPHAGIA, UNSPECIFIED 01/20/2020 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 Ot 486 PNEUMONIA, ORGANISM NOS 01/20/2020 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 Ot 789.00 ABDOMINAL PAIN, UNSPECIFIED SITE 01/20/2020 ADAMA KENTIA Jr SCIENTIFIC LABORATORY SUPERVISOR Ot 959.6 HIP THIGH INJURY NOS 01/20/2020 ADAMA KENTIA Jr SCIENTIFIC LABORATORY SUPERVISOR Ot E000.8 OTHER EXTERNAL CAUSE STATUS 01/20/2020 ADAMA KENTIA Jr SCIENTIFIC LABORATORY SUPERVISOR Ot E849.4 ACCID IN RECREATION AREA 01/20/2020 ADAMA KENTIA Jr SCIENTIFIC LABORATORY SUPERVISOR Ot E888.9 FALL NOS 01/20/2020 GLADWIN KRISHAN, PETRA Raymond Ot 724. 5 BACKACHE NOS 01/20/2020 GLADWIN PETRA NICKERSON Ot 786. 50 CHEST PAIN NOS 01/20/2020 GLADWIN PETRA NICKERSON Ot 724. 1 PAIN IN THORACIC SPINE 01/20/2020 GLADWIN PETRA NICKERSON Ot 786. 50 CHEST PAIN NOS 01/20/2020 RUDOLPH KENT DO Ot 414.00 CORON ATHEROSCLER NOS TYPE VESSEL, NATIV 01/20/2020 RUDOLPH KENT DO Ot 786.50 CHEST PAIN NOS 01/20/2020 RUDOLPH KENT DO Ot I25.10 ATHSCL HEART DISEASE OF [place] CORONARY 01/20/2020 RUDOLPH KENT DO Ot R07.9 CHEST PAIN, UNSPECIFIED 01/20/2020 [facility] R10.9 UNSPECIFIED ABDOMINAL PAIN 01/20/2020 [facility] Z01.818 ENCOUNTER FOR OTHER PREPROCEDURAL EXAMIN 01/20/2020 LUCINA CHA VILLALPANDO Ot 553.20 VENTRAL HERNIA NOS 01/20/2020 LUCINA DOCHA Ot V81.5 SCREEN FOR NEPHROPATHY 01/20/2020 LUKASZ CROWLEY APRN Ot F17.210 NICOTINE DEPENDENCE, CIGARETTES, UNCOMPL 01/20/2020 LUKASZ CROWLEY APRN Ot J44.9 CHRONIC OBSTRUCTIVE PULMONARY DISEASE, U 01/20/2020 LUKASZ CROWLEY APRN Ot R06.00 DYSPNEA, UNSPECIFIED 01/20/2020 WOOT[facility] EVANS, FRANDY Aviles Ot E11.9 TYPE 2 DIABETES MELLITUS WITHOUT COMPLIC 01/20/2020 [facility] CRISTINA, FRANDY Aviles Ot E78.2 MIXED HYPERLIPIDEMIA 01/20/2020 [facility] CRISTINA, FRANDY Aviles Ot I10 ESSENTIAL (PRIMARY) HYPERTENSION 01/20/2020 [facility] CRISTINA, FRANDY Aviles Ot I25.10 ATHSCL HEART DISEASE OF [place] CORONARY 01/20/2020 [facility] CRISTINA, FRANDY Aviles Ot E11.9 TYPE 2 DIABETES MELLITUS WITHOUT COMPLIC 01/20/2020 [facility] CRISTINA, FRANDY Aviles Ot E78.2 MIXED HYPERLIPIDEMIA 01/20/2020 [facility] CRISTINA, FRANDY Aviles Ot I10 ESSENTIAL (PRIMARY) HYPERTENSION 01/20/2020 [facility] CRISTINA, FRANDY Aviles Ot I25.10 ATHSCL HEART DISEASE OF [place] CORONARY 01/20/2020 LUKASZ CROWLEY APRN Ot F17.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, UNSPECIFIED, UNCOMP 01/20/2020 LUKASZ CROWLEY APRN Ot J44.9 CHRONIC OBSTRUCTIVE PULMONARY DISEASE, U 01/20/2020 RUDOLPH KENT DO Ot M94.8X6 OTHER SPECIFIED DISORDERS OF CARTILAGE, 01/20/2020 RUDOLPH KENT DO, Ot S83.242A OTH TEAR OF MEDIAL MENISCUS, CURRENT INJ 01/20/2020 RUDOLPH KENT DO, Ot S83.282A OTH TEAR OF LAT MENSC, CURRENT INJURY, L 01/20/2020 RUDOLPH KENT DO Ot X58.XXXA EXPOSURE TO OTHER SPECIFIED FACTORS, INI 01/20/2020 RUDOLPH KENT DO Ot Y99.8 OTHER EXTERNAL CAUSE STATUS 01/20/2020 RUDOLPH KENT DO J Ot Z12.31 ENCNTR SCREEN MAMMOGRAM FOR MALIGNANT NE 01/20/2020 YOLI VILLALPANDO, RUDOLPH Raymond Ot M40.209 UNSPECIFIED KYPHOSIS, SITE UNSPECIFIED 01/20/2020 YOLI VILLALPANDO, RUDOLPH Raymond Ot M85.852 [facility] DISRD OF BONE DENSITY AND STRUCTURE, 01/20/2020 YOLI VILLALPANDO, RUDOLPH Raymond Ot Z78.0 ASYMPTOMATIC MENOPAUSAL STATE 01/20/2020 EARNESTINE ALEXANDRE, RAY Davis Ot L98 .9 DISORDER OF THE SKIN AND SUBCUTANEOUS TI 01/20/2020 YOLI VILLALPANDO, RUDOLPH Raymond Ot M77.32 CALCANEAL SPUR, LEFT FOOT 01/20/2020 YOLI VILLALPANDO, RUDOLPH Raymond Ot S79.912A UNSPECIFIED INJURY OF LEFT HIP, INITIAL 01/20/2020 YOLI VILLALPANDO, RUDOLPH Raymond Ot W19.XXXA UNSPECIFIED FALL, INITIAL ENCOUNTER 01/20/2020 YOLI VILLALPANDO, RUDOLPH Raymond Ot F09 UNSP MENTAL DISORDER DUE TO KNOWN PHYSIO 01/20/2020 YOLI VILLALPANDO, RUDOLPH Raymond Ot G43.909 MIGRAINE, UNSP, NOT INTRACTABLE, WITHOUT 01/20/2020 KENT DO, RUDOLPH Raymond Ot W19.XXXA UNSPECIFIED FALL, INITIAL ENCOUNTER 01/20/2020 YOLI VILLALPANDO, RUDOLPH Raymond Ot M25.78 OSTEOPHYTE, VERTEBRAE 01/20/2020 YOLI VILLALPANDO, RUDOLPH Raymond Ot M43.16 SPONDYLOLISTHESIS, LUMBAR REGION 01/20/2020 YOLI VILLALPANDO, RUDOLPH Raymond Ot M46.86 OTHER SPECIFIED INFLAMMATORY SPONDYLOPAT 01/20/2020 YOLI VILLALPANDO, RUDOLPH Raymond Ot M47.27 OTHER SPONDYLOSIS WITH RADICULOPATHY, CATHLEEN 01/20/2020 YOLI VILLALPANDO, RUDOLPH Raymond Ot M48.061 SPINAL STENOSIS, LUMBAR REGION WITHOUT N 01/20/2020 YOLI VILLALPANDO, RUDOLPH Raymond Ot M51.16 INTERVERTEBRAL DISC DISORDERS W RADICULO 01/20/2020 YOLI VILLALPANDO, RUDOLPH Raymond Ot M99.73 CONN TISS AND DISC STENOS OF INTVRT FORA 01/20/2020 YOLI VILLALPANDO, RUDOLPH Raymond Ot S99.912A UNSPECIFIED INJURY OF LEFT ANKLE, INITIA 01/20/2020 LIVAN ALEXANDRE, JUAN Raymond Ot E11. 51 TYPE 2 DIABETES W DIABETIC PERIPHERAL AN 01/20/2020 LIVAN ALEXANDRE, JUAN Raymond Ot E78. 2 MIXED HYPERLIPIDEMIA 01/20/2020 LIVAN ALEXANDRE, JUAN Raymond Ot R06. 09 OTHER FORMS OF DYSPNEA 01/20/2020 LIVAN ALEXANDRE, JUAN Raymond Ot R07. 89 OTHER CHEST PAIN 01/20/2020 LIVAN ALEXANDRE, JUAN Raymond Ot E11. 51 TYPE 2 DIABETES W DIABETIC PERIPHERAL AN 01/20/2020 LIVAN ALEXANDRE, JUAN Raymond Ot E78. 2 MIXED HYPERLIPIDEMIA 01/20/2020 LIVAN ALEXANDRE, JUAN Raymond Ot R06. 09 OTHER FORMS OF DYSPNEA 01/20/2020 LIVAN ALEXANDRE, JUAN Raymond Ot R07. 89 OTHER CHEST PAIN 01/20/2020 CARLINE, LUKASZ E 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 Ot F12.10 CANNABIS ABUSE, UNCOMPLICATED 01/20/2020 CARLINE, LUKASZ E 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 Ot F17.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, UNSPECIFIED, UNCOMP 01/20/2020 CARLINE, LUKASZ E 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 Ot G47.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 01/20/2020 CARLINE, LUKASZ E 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 Ot J30.9 ALLERGIC RHINITIS, UNSPECIFIED 01/20/2020 CARLINE, LUKASZ E 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 Ot J42 UNSPECIFIED CHRONIC BRONCHITIS 01/20/2020 CARLINE, LUKASZ E 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 Ot J44.9 CHRONIC OBSTRUCTIVE PULMONARY DISEASE, U 01/20/2020 CARLINE, LUKASZ E 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 Ot Z99.81 DEPENDENCE ON SUPPLEMENTAL OXYGEN 01/20/2020 CARLINE, LUKASZ E 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 Ot F12.10 CANNABIS ABUSE, UNCOMPLICATED 01/20/2020 CARLINE, LUKASZ E 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 Ot F17.210 NICOTINE DEPENDENCE, CIGARETTES, UNCOMPL 01/20/2020 CARLINE, LUKASZ E 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 Ot G47.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 01/20/2020 CARLINE, LUKASZ E 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 Ot J18.1 LOBAR PNEUMONIA, UNSPECIFIED ORGANISM 01/20/2020 CARLINE, LUKASZ E 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 Ot J30.9 ALLERGIC RHINITIS, UNSPECIFIED 01/20/2020 CARLINE, LUKASZ E 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 Ot J44.9 CHRONIC OBSTRUCTIVE PULMONARY DISEASE, U 01/20/2020 CARLINE, LUKASZ E 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 Ot Z12.2 ENCNTR SCREEN FOR MALIGNANT NEOPLASM OF 01/20/2020 CARLINE, LUKASZ E 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 Ot Z99.81 DEPENDENCE ON SUPPLEMENTAL OXYGEN 01/20/2020 RUDOLPH KENT DO Ot Z45.2 ENCOUNTER FOR ADJUSTMENT AND MANAGEMENT 01/20/2020 SARAH ROBERTSON Ot 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, CERVICOTHORACIC REGIO 01/20/2020 SARAH ROBERTSON Ot M48.02 SPINAL STENOSIS, CERVICAL REGION 01/20/2020 SARAH ROBERTSON Ot M50.11 CERV DISC DISORDER WITH RADICULOPATHY, H 01/20/2020 SARAH ROBERTSON Ot M50.121 CERVICAL DISC DISORDER AT C4-C5 LEVEL [place] 01/20/2020 LUCINACHA DIANA DO Ot V72.84 EXAM PRE-OPERATIVE NOS 01/20/2020 Ot V58.81 FIT /ADJ VASCULAR CATHETER 01/20/2020 [facility] Ot 879.2 OPN WND ANTERIOR ABDOMEN 01/20/2020 [facility] Ot E000.8 OTHER EXTERNAL CAUSE STATUS 01/20/2020 [facility] CHA VILLALPANDO Ot E928.9 ACCIDENT NOS 01/20/2020 JUAN LICONA MD Ot 272. 4 HYPERLIPIDEMIA NEC/NOS 01/20/2020 JUAN LICONA MD Ot 397. 0 TRICUSPID VALVE DISEASE 01/20/2020 JUAN LICONA MD Ot 424. 0 MITRAL VALVE DISORDER 01/20/2020 JUAN LICONA MD Ot 786. 09 RESPIRATORY ABNORM NEC 01/20/2020 JUAN LICONA MD Ot 786. 50 CHEST PAIN NOS 01/20/2020 JUAN LICONA MD Ot V46. 2 SUPPLEMENTAL OXYGEN 01/20/2020 JUAN LICONA MD Ot 272. 4 HYPERLIPIDEMIA NEC/NOS 01/20/2020 JUAN LICONA MD Ot 786. 09 RESPIRATORY ABNORM NEC 01/20/2020 JUAN LICONA MD Ot 786. 50 CHEST PAIN NOS 01/20/2020 JUAN LICONA MD Ot V46. 2 SUPPLEMENTAL OXYGEN 01/20/2020 RUDOLPH KENT DO Ot V76.12 OT SCREEN MAMMO-MALIGN NEOPLASM OF [place] 01/20/2020 QING TAO DO Ot 305. 1 TOBACCO USE DISORDER 01/20/2020 QING TAO DO Ot 496 CHR AIRWAY OBSTRUCT NEC 01/20/2020 QING TAO DO Ot 786. 09 RESPIRATORY ABNORM NEC 01/20/2020 KASIE DPM, ANDREA Q Ot 355. 5 TARSAL TUNNEL SYNDROME 01/20/2020 [facility] Ot V72.84 EXAM PRE-OPERATIVE NOS 01/20/2020 [facility] Ot 530.10 ESOPHAGITIS NOS 01/20/2020 [facility] Ot 553.3 DIAPHRAGMATIC HERNIA 01/20/2020 [facility] Ot 787.20 DYSPHAGIA, UNSPECIFIED 01/20/2020 ADAMA KENTIA Jr SCIENTIFIC LABORATORY SUPERVISOR Ot 486 PNEUMONIA, ORGANISM NOS 01/20/2020 ADAMA KENTIA L SCIENTIFIC LABORATORY SUPERVISOR Ot 789.00 ABDOMINAL PAIN, UNSPECIFIED SITE 01/20/2020 ADAMA KENTIA Jr SCIENTIFIC LABORATORY SUPERVISOR Ot 959.6 HIP THIGH INJURY NOS 01/20/2020 CHIP KENTRICIA L SCIENTIFIC LABORATORY SUPERVISOR Ot E000.8 OTHER EXTERNAL CAUSE STATUS 01/20/2020 ADAMA KENTIA Jr SCIENTIFIC LABORATORY SUPERVISOR Ot E849.4 ACCID IN RECREATION AREA 01/20/2020 ADAMA KENTIA Jr SCIENTIFIC LABORATORY SUPERVISOR Ot E888.9 FALL NOS 01/20/2020 [facility], PETRA Raymond Ot 724. 5 BACKACHE NOS 01/20/2020 GLADWIN KRISHAN, PETRA Raymond Ot 786. 50 CHEST PAIN NOS 01/20/2020 GLADWIN PETRA NICKERSON Ot 724. 1 PAIN IN THORACIC SPINE 01/20/2020 GLADWIN PETRA NICKERSON Ot 786. 50 CHEST PAIN NOS 01/20/2020 KENTRUDOLPH BURNHAM DO Ot 414.00 CORON ATHEROSCLER NOS TYPE VESSEL, NATIV 01/20/2020 KENTRUDOLPH BURNHAM DO Ot 786.50 CHEST PAIN NOS 01/20/2020 CAMPUS RUDOLPH VILLALPANDO Ot I25.10 ATHSCL HEART DISEASE OF [place] CORONARY 01/20/2020 KENTRUDOLPH BURNHAM DO Ot R07.9 CHEST PAIN, UNSPECIFIED 01/20/2020 [facility] Ot R10.9 UNSPECIFIED ABDOMINAL PAIN 01/20/2020 [facility] Ot Z01.818 ENCOUNTER FOR OTHER PREPROCEDURAL EXAMIN 01/20/2020 LUCINA DOCHA Ot 553.20 VENTRAL HERNIA NOS 01/20/2020 [facility] Ot V81.5 SCREEN FOR NEPHROPATHY 01/20/2020 LUKASZ CROWLEY APRN Ot F17.210 NICOTINE DEPENDENCE, CIGARETTES, UNCOMPL 01/20/2020 LUKASZ CROWLEY APRN Ot J44.9 CHRONIC OBSTRUCTIVE PULMONARY DISEASE, U 01/20/2020 LUKASZ CROWLEY APRN Ot R06.00 DYSPNEA, UNSPECIFIED 01/20/2020 [facility] PA, FRANDY Aviels Ot E11.9 TYPE 2 DIABETES MELLITUS WITHOUT COMPLIC 01/20/2020 [facility] PA, FRANDY Aviles Ot E78.2 MIXED HYPERLIPIDEMIA 01/20/2020 [facility] PA, FRANDY K Ot I10 ESSENTIAL (PRIMARY) HYPERTENSION 01/20/2020 [facility] PA, FRANDY Aviles Ot I25.10 ATHSCL HEART DISEASE OF [place] CORONARY 01/20/2020 [facility] CRISTINA, FRANDY Aviles Ot E11.9 TYPE 2 DIABETES MELLITUS WITHOUT COMPLIC 01/20/2020 [facility] PA, FRANDY Aviles Ot E78.2 MIXED HYPERLIPIDEMIA 01/20/2020 [facility] PA, FRANDY K Ot I10 ESSENTIAL (PRIMARY) HYPERTENSION 01/20/2020 [facility] PA, FRANDY K Ot I25.10 ATHSCL HEART DISEASE OF [place] CORONARY 01/20/2020 LUKASZ CROWLEY APRN Ot F17.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, UNSPECIFIED, UNCOMP 01/20/2020 LUKASZ CROWLEY APRN Ot J44.9 CHRONIC OBSTRUCTIVE PULMONARY DISEASE, U 01/20/2020 RUDOLPH KENT DO Ot M94.8X6 OTHER SPECIFIED DISORDERS OF [place]ARTIL[place], 01/20/2020 RUDOLPH KENT DO Ot S83.242A OTH TEAR OF MEDIAL MENISCUS, CURRENT INJ 01/20/2020 RUDOLPH KENT DO Ot S83.282A OTH TEAR OF LAT MENSC, CURRENT INJURY, L 01/20/2020 RUDOLPH KENT DO Ot X58.XXXA EXPOSURE TO OTHER SPECIFIED FACTORS, INI 01/20/2020 RUDOLPH KENT DO Ot Y99.8 OTHER EXTERNAL CAUSE STATUS 01/20/2020 RUDOLPH KENT DO Ot Z12.31 ENCNTR SCREEN MAMMOGRAM FOR MALIGNANT NE 01/20/2020 RUDOLPH KENT DO Ot M40.209 UNSPECIFIED KYPHOSIS, SITE UNSPECIFIED 01/20/2020 YOLI VILLALPANDO, RUDOLPH Raymond Ot M85.852 OT DISRD OF BONE DENSITY AND STRUCTURE, 01/20/2020 RUDOLPH KENT DO, Ot Z78.0 ASYMPTOMATIC MENOPAUSAL STATE 01/20/2020 EARNESTINE ALEXANDRE, RAY Davis Ot L98 .9 DISORDER OF THE SKIN AND SUBCUTANEOUS TI 01/20/2020 YOLI VILLALPANDO, RUDOLPH Raymond Ot M77.32 CALCANEAL SPUR, LEFT FOOT 01/20/2020 YOLI VILLALPANDO, RUDOLPH Raymond Ot S79.912A UNSPECIFIED INJURY OF LEFT HIP, INITIAL 01/20/2020 YOLI VILLALPANDO, RUDOLPH Raymond Ot W19.XXXA UNSPECIFIED FALL, INITIAL ENCOUNTER 01/20/2020 RUDOLPH KENT DO, Ot F09 UNSP MENTAL DISORDER DUE TO KNOWN PHYSIO 01/20/2020 YOLI VILLALPANDO, RUDOLPH Raymond Ot G43.909 MIGRAINE, UNSP, NOT INTRACTABLE, WITHOUT 01/20/2020 RUDOLPH KENT DO, Ot W19.XXXA UNSPECIFIED FALL, INITIAL ENCOUNTER 01/20/2020 RUDOLPH KENT DO, Ot M25.78 OSTEOPHYTE, VERTEBRAE 01/20/2020 RUDOLPH KENT DO, Ot M43.16 SPONDYLOLISTHESIS, LUMBAR REGION 01/20/2020 YOLI VILLALPANDO, RUDOLPH Raymond Ot M46.86 OTHER SPECIFIED INFLAMMATORY SPONDYLOPAT 01/20/2020 RUDOLPH KENT DO, Ot M47.27 OTHER SPONDYLOSIS WITH RADICULOPATHY, CATHLEEN 01/20/2020 RUDOLPH KENT DO, Ot M48.061 SPINAL STENOSIS, LUMBAR REGION WITHOUT N 01/20/2020 RUDOLPH KENT DO, Ot M51.16 INTERVERTEBRAL DISC DISORDERS W RADICULO 01/20/2020 YOLI VILLALPANDO, RUDOLPH Raymond Ot M99.73 CONN TISS AND DISC STENOS OF INTVRT FORA 01/20/2020 RUDOLPH KENT DO, Ot S99.912A UNSPECIFIED INJURY OF LEFT ANKLE, INITIA 01/20/2020 LIVAN ALEXANDRE, JUAN Raymond Ot E11. 51 TYPE 2 DIABETES W DIABETIC PERIPHERAL AN 01/20/2020 LIVAN ALEXANDRE, JUAN Raymond Ot E78. 2 MIXED HYPERLIPIDEMIA 01/20/2020 LIVAN ALEXANDRE, JUAN Raymond Ot R06. 09 OTHER FORMS OF DYSPNEA 01/20/2020 LIVAN ALEXANDRE, JUAN Raymond Ot R07. 89 OTHER CHEST PAIN 01/20/2020 LIVAN ALEXANDRE, JUAN Raymond Ot E11. 51 TYPE 2 DIABETES W DIABETIC PERIPHERAL AN 01/20/2020 LIVAN ALEXANDRE, JUAN Raymond Ot E78. 2 MIXED HYPERLIPIDEMIA 01/20/2020 LIVAN ALEXANDRE, JUAN Raymond Ot R06. 09 OTHER FORMS OF DYSPNEA 01/20/2020 LIVAN ALEXANDRE, JUAN Raymond Ot R07. 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, UNSPECIFIED, UNCOMP 01/20/2020 CARLINE, LUKASZ E 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 Ot G47.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 01/20/2020 CARLINE, LUKASZ E 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 Ot J30.9 ALLERGIC RHINITIS, UNSPECIFIED 01/20/2020 CARLINE, LUKASZ E 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 Ot J42 UNSPECIFIED CHRONIC BRONCHITIS 01/20/2020 CARLINE, LUKASZ E 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 Ot J44.9 CHRONIC OBSTRUCTIVE PULMONARY DISEASE, U 01/20/2020 CARLINE, LUKASZ E 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 Ot Z99.81 DEPENDENCE ON SUPPLEMENTAL OXYGEN 01/20/2020 CARLINE, LUKASZ E 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 Ot F12.10 CANNABIS ABUSE, UNCOMPLICATED 01/20/2020 CARLINE, LUKASZ E 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 Ot F17.210 NICOTINE DEPENDENCE, CIGARETTES, UNCOMPL 01/20/2020 CARLINE, LUKASZ E 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 Ot G47.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 01/20/2020 CARLINE, LUKASZ E 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 Ot J18.1 LOBAR PNEUMONIA, UNSPECIFIED ORGANISM 01/20/2020 CARLINE, LUKASZ E 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 Ot J30.9 ALLERGIC RHINITIS, UNSPECIFIED 01/20/2020 CARLINE, LUKASZ E 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 Ot J44.9 CHRONIC OBSTRUCTIVE PULMONARY DISEASE, U 01/20/2020 CARLINE, LUKASZ E 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 Ot Z12.2 ENCNTR SCREEN FOR MALIGNANT NEOPLASM OF 01/20/2020 CARLINE, LUKASZ E 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 Ot Z99.81 DEPENDENCE ON SUPPLEMENTAL OXYGEN 01/20/2020 RUDOLPH KENT DO Ot Z45.2 ENCOUNTER FOR ADJUSTMENT AND MANAGEMENT 01/20/2020 SARAH ROBERTSON SCIENTIFIC LABORATORY SUPERVISOR Ot 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, CERVICOTHORACIC REGIO 01/20/2020 SARAH ROBERTSON Ot M48.02 SPINAL STENOSIS, CERVICAL REGION 01/20/2020 SARAH ROBERTSON Ot M50.11 CERV DISC DISORDER WITH RADICULOPATHY, H 01/20/2020 SARAH ROBERTSON Ot M50.121 CERVICAL DISC DISORDER AT C4-C5 LEVEL [place] 01/20/2020 [facility] V72.84 EXAM PRE-OPERATIVE NOS 01/20/2020 Ot V58.81 FIT /ADJ VASCULAR CATHETER 01/20/2020 [facility] Ot 879.2 OPN WND ANTERIOR ABDOMEN 01/20/2020 [facility] Ot E000.8 OTHER EXTERNAL CAUSE STATUS 01/20/2020 [facility] Ot E928.9 ACCIDENT NOS 01/20/2020 JUAN LICONA MD Ot 272. 4 HYPERLIPIDEMIA NEC/NOS 01/20/2020 JUAN LICONA MD Ot 397. 0 TRICUSPID VALVE DISEASE 01/20/2020 JUAN LICONA MD Ot 424. 0 MITRAL VALVE DISORDER 01/20/2020 JUAN LICONA MD Ot 786. 09 RESPIRATORY ABNORM NEC 01/20/2020 JUAN LICONA MD Ot 786. 50 CHEST PAIN NOS 01/20/2020 JUAN LICONA MD Ot V46. 2 SUPPLEMENTAL OXYGEN 01/20/2020 JUAN LICONA MD Ot 272. 4 HYPERLIPIDEMIA NEC/NOS 01/20/2020 JUAN LICONA MD Ot 786. 09 RESPIRATORY ABNORM NEC 01/20/2020 JUAN LICONA MD Ot 786. 50 CHEST PAIN NOS 01/20/2020 JUAN LICONA MD Ot V46. 2 SUPPLEMENTAL OXYGEN 01/20/2020 RUDOLPH KENT DO Ot V76.12 OTH SCREEN MAMMO-MALIGN NEOPLASM OF JEAN[place] 01/20/2020 QING TAO DO Ot 305. 1 TOBACCO USE DISORDER 01/20/2020 QING TAO DO Ot 496 CHR AIRWAY OBSTRUCT NEC 01/20/2020 QING TAO DO Ot 786. 09 RESPIRATORY ABNORM NEC 01/20/2020 KASIE DPM, ANDREA Q Ot 355. 5 TARSAL TUNNEL SYNDROME 01/20/2020 [facility] Ot V72.84 EXAM PRE-OPERATIVE NOS 01/20/2020 [facility], CHA Ot 530.10 ESOPHAGITIS NOS 01/20/2020 [facility], CHA Ot 553.3 DIAPHRAGMATIC HERNIA 01/20/2020 [facility], CHA Ot 787.20 DYSPHAGIA, UNSPECIFIED 01/20/2020 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 Ot 486 PNEUMONIA, ORGANISM NOS 01/20/2020 CHIP KENTRICIA Jr SCIENTIFIC LABORATORY SUPERVISOR Ot 789.00 ABDOMINAL PAIN, UNSPECIFIED SITE 01/20/2020 CHIP KENTRICIA L SCIENTIFIC LABORATORY SUPERVISOR Ot 959.6 HIP THIGH INJURY NOS 01/20/2020 ADAMA KENTIA L SCIENTIFIC LABORATORY SUPERVISOR Ot E000.8 OTHER EXTERNAL CAUSE STATUS 01/20/2020 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 Ot E849.4 ACCID IN RECREATION AREA 01/20/2020 ADAMA KENTIA Jr SCIENTIFIC LABORATORY SUPERVISOR Ot E888.9 FALL NOS 01/20/2020 [facility], PETRA Raymond Ot 724. 5 BACKACHE NOS 01/20/2020 [facility], PETRA Raymond Ot 786. 50 CHEST PAIN NOS 01/20/2020 [facility], PETRA Raymond Ot 724. 1 PAIN IN THORACIC SPINE 01/20/2020 [facility], PETRA Raymond Ot 786. 50 CHEST PAIN NOS 01/20/2020 [facility]AMP[facility] RUDOLPH VILLALPANDO Ot 414.00 CORON ATHEROSCLER NOS TYPE VESSEL, NATIV 01/20/2020 KENTRUDOLPH BURNHAM DO Ot 786.50 CHEST PAIN NOS 01/20/2020 [facility]AMP[facility] RUDOLPH VILLALPANDO Ot I25.10 ATHSCL HEART DISEASE OF [place] CORONARY 01/20/2020 KENTRUDOLPH BURNHAM DO Ot R07.9 CHEST PAIN, UNSPECIFIED 01/20/2020 [facility] R10.9 UNSPECIFIED ABDOMINAL PAIN 01/20/2020 [facility], CHA Ot Z01.818 ENCOUNTER FOR OTHER PREPROCEDURAL EXAMIN 01/20/2020 [facility] Ot 553.20 VENTRAL HERNIA NOS 01/20/2020 [facility] V81.5 SCREEN FOR NEPHROPATHY 01/20/2020 LUKASZ CROWLEY APRN Ot F17.210 NICOTINE DEPENDENCE, CIGARETTES, UNCOMPL 01/20/2020 LUKASZ CROWLEY APRN Ot J44.9 CHRONIC OBSTRUCTIVE PULMONARY DISEASE, U 01/20/2020 LUKASZ CROWLEY APRN Ot R06.00 DYSPNEA, UNSPECIFIED 01/20/2020 [facility] PA, FRANDY Aviles Ot E11.9 TYPE 2 DIABETES MELLITUS WITHOUT COMPLIC 01/20/2020 [facility] PA, FRANDY Aviles Ot E78.2 MIXED HYPERLIPIDEMIA 01/20/2020 [facility] PA, FRANDY Aviles Ot I10 ESSENTIAL (PRIMARY) HYPERTENSION 01/20/2020 [facility] PA, FRANDY Aviles Ot I25.10 ATHSCL HEART DISEASE OF [place] CORONARY 01/20/2020 [facility] PA, FRANDY Aviles Ot E11.9 TYPE 2 DIABETES MELLITUS WITHOUT COMPLIC 01/20/2020 [facility] CRISTINA, FRANDY Aviles Ot E78.2 MIXED HYPERLIPIDEMIA 01/20/2020 [facility] PA, FRANDY Aviles Ot I10 ESSENTIAL (PRIMARY) HYPERTENSION 01/20/2020 [facility] CRISTINA, FRANDY Aviles Ot I25.10 ATHSCL HEART DISEASE OF [place] CORONARY 01/20/2020 LUKASZ CROWLEY APRN Ot F17.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, UNSPECIFIED, UNCOMP 01/20/2020 LUKASZ CROWLEY APRN Ot J44.9 CHRONIC OBSTRUCTIVE PULMONARY DISEASE, U 01/20/2020 RUDOLPH KENT DO, Ot M94.8X6 OTHER SPECIFIED DISORDERS OF CARTILAGE, 01/20/2020 RUDOLPH KENT DO, Ot S83.242A OTH TEAR OF MEDIAL MENISCUS, CURRENT INJ 01/20/2020 RUDOLPH KENT DO, Ot S83.282A OTH TEAR OF LAT MENSC, CURRENT INJURY, L 01/20/2020 RUDOLPH KENT DO, Ot X58.XXXA EXPOSURE TO OTHER SPECIFIED FACTORS, INI 01/20/2020 RUDOLPH KENT DO, Ot Y99.8 OTHER EXTERNAL CAUSE STATUS 01/20/2020 RUDOLPH KENT DO, Ot Z12.31 ENCNTR SCREEN MAMMOGRAM FOR MALIGNANT NE 01/20/2020 RUDOLPH KENT DO, Ot M40.209 UNSPECIFIED KYPHOSIS, SITE UNSPECIFIED 01/20/2020 RUDOLPH KENT DO, Ot M85.852 OTH DISRD OF BONE DENSITY AND STRUCTURE, 01/20/2020 RUDOLPH KENT DO Ot Z78.0 ASYMPTOMATIC MENOPAUSAL STATE 01/20/2020 EARNESTINE ALEXANDRE, RAY Davis Ot L98 .9 DISORDER OF THE SKIN AND SUBCUTANEOUS TI 01/20/2020 YOLI VILLALPANDO, RUDOLPH Raymond Ot M77.32 CALCANEAL SPUR, LEFT FOOT 01/20/2020 YOLI VILLALPANDO, RUDOLPH Raymond Ot S79.912A UNSPECIFIED INJURY OF LEFT HIP, INITIAL 01/20/2020 YOLI VILLALPANDO, RUDOLPH Raymond Ot W19.XXXA UNSPECIFIED FALL, INITIAL ENCOUNTER 01/20/2020 YOLI VILLALPANDO, RUDOLPH Raymond Ot F09 UNSP MENTAL DISORDER DUE TO KNOWN PHYSIO 01/20/2020 KENT DO, RUDOLPH Raymond Ot G43.909 MIGRAINE, UNSP, NOT INTRACTABLE, WITHOUT 01/20/2020 KENT DO, RUDOLPH Raymond Ot W19.XXXA UNSPECIFIED FALL, INITIAL ENCOUNTER 01/20/2020 YOLI VILLALPANDO, RUDOLPH Raymond Ot M25.78 OSTEOPHYTE, VERTEBRAE 01/20/2020 YOLI VILLALPANDO, RUDOLPH Raymond Ot M43.16 SPONDYLOLISTHESIS, LUMBAR REGION 01/20/2020 KENT DO, RUDOLPH Raymond Ot M46.86 OTHER SPECIFIED INFLAMMATORY SPONDYLOPAT 01/20/2020 YOLI VILLALPANDO, RUDOLPH Raymond Ot M47.27 OTHER SPONDYLOSIS WITH RADICULOPATHY, CATHLEEN 01/20/2020 YOLI VILLALPANDO, RUDOLPH Raymond Ot M48.061 SPINAL STENOSIS, LUMBAR REGION WITHOUT N 01/20/2020 YOLI VILLALPANDO, RUDOLPH Raymond Ot M51.16 INTERVERTEBRAL DISC DISORDERS W RADICULO 01/20/2020 YOLI VILLALPANDO, RUDOLPH Raymond Ot M99.73 CONN TISS AND DISC STENOS OF INTVRT FORA 01/20/2020 YOLI VILLALPANDO, RUDOLPH Raymond Ot S99.912A UNSPECIFIED INJURY OF LEFT ANKLE, INITIA 01/20/2020 LIVAN ALEXANDRE, JUAN Raymond Ot E11. 51 TYPE 2 DIABETES W DIABETIC PERIPHERAL AN 01/20/2020 JUAN LICONA MD Ot E78. 2 MIXED HYPERLIPIDEMIA 01/20/2020 JUAN LICONA MD Ot R06. 09 OTHER FORMS OF DYSPNEA 01/20/2020 JUAN LICONA MD Ot R07. 89 OTHER CHEST PAIN 01/20/2020 JUAN LICONA MD Ot E11. 51 TYPE 2 DIABETES W DIABETIC PERIPHERAL AN 01/20/2020 JUAN LICONA MD Ot E78. 2 MIXED HYPERLIPIDEMIA 01/20/2020 LIVAN ALEXANDRE, JUAN Raymond Ot R06. 09 OTHER FORMS OF DYSPNEA 01/20/2020 LIVAN ALEXANDRE, JUAN Raymond Ot R07. 89 OTHER CHEST PAIN 01/20/2020 CARLINE, LUKASZ E 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 Ot F12.10 CANNABIS ABUSE, UNCOMPLICATED 01/20/2020 CARLINE, LUKASZ E 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 Ot F17.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, UNSPECIFIED, UNCOMP 01/20/2020 CARLINE, LUKASZ E 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 Ot G47.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 01/20/2020 CARLINE, LUKASZ E 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 Ot J30.9 ALLERGIC RHINITIS, UNSPECIFIED 01/20/2020 CARLINE, LUKASZ E 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 Ot J42 UNSPECIFIED CHRONIC BRONCHITIS 01/20/2020 CARLINE, LUKASZ E 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 Ot J44.9 CHRONIC OBSTRUCTIVE PULMONARY DISEASE, U 01/20/2020 CARLINE, LUKASZ E 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 Ot Z99.81 DEPENDENCE ON SUPPLEMENTAL OXYGEN 01/20/2020 CARLINE, LUKASZ E 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 Ot F12.10 CANNABIS ABUSE, UNCOMPLICATED 01/20/2020 CARLINE, LUKASZ E 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 Ot F17.210 NICOTINE DEPENDENCE, CIGARETTES, UNCOMPL 01/20/2020 CARLINE, LUKASZ E 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 Ot G47.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 01/20/2020 CARLINE, LUKASZ E 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 Ot J18.1 LOBAR PNEUMONIA, UNSPECIFIED ORGANISM 01/20/2020 CARLINE, LUKASZ E 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 Ot J30.9 ALLERGIC RHINITIS, UNSPECIFIED 01/20/2020 CARLINE, LUKASZ E 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 Ot J44.9 CHRONIC OBSTRUCTIVE PULMONARY DISEASE, U 01/20/2020 CARLINE, LUKASZ E 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 Ot Z12.2 ENCNTR SCREEN FOR MALIGNANT NEOPLASM OF 01/20/2020 CARLINE, LUKASZ E 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 Ot Z99.81 DEPENDENCE ON SUPPLEMENTAL OXYGEN 01/20/2020 RUDOLPH KENT DO Ot Z45.2 ENCOUNTER FOR ADJUSTMENT AND MANAGEMENT 01/20/2020 SARAH ROBERTSON Ot 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, CERVICOTHORACIC REGIO 01/20/2020 SARAH ROBERTSON Ot M48.02 SPINAL STENOSIS, CERVICAL REGION 01/20/2020 SARAH ROBERTSON Ot M50.11 CERV DISC DISORDER WITH RADICULOPATHY, H 01/20/2020 SARAH ROBERTSON SCIENTIFIC LABORATORY SUPERVISOR Ot M50.121 CERVICAL DISC DISORDER AT C4-C5 LEVEL [place] 01/24/2020 LUKAS NUNES MD Ot E11. 40 TYPE 2 DIABETES MELLITUS WITH DIABETIC N 01/24/2020 LUKAS NUNES MD Ot E66. 9 OBESITY, UNSPECIFIED 01/24/2020 LUKAS NUNES MD Ot E78. 00 PURE HYPERCHOLESTEROLEMIA, UNSPECIFIED 01/24/2020 LUKAS NUNES MD Ot E87. 6 HYPOKALEMIA 01/24/2020 LUKAS NUNES MD Ot F17.210 NICOTINE DEPENDENCE, CIGARETTES, UNCOMPL 01/24/2020 LUKAS NUNES MD Ot F32. 9 MAJOR DEPRESSIVE DISORDER, SINGLE EPISOD 01/24/2020 LUKAS NUNES MD Ot F41. 9 ANXIETY DISORDER, UNSPECIFIED 01/24/2020 LUKAS NUNES MD Ot G25. 81 RESTLESS LEGS SYNDROME 01/24/2020 LUKAS NUNES MD Ot G43.909 MIGRAINE, UNSP, NOT INTRACTABLE, WITHOUT 01/24/2020 LUKAS NUNES MD Ot I11. 0 HYPERTENSIVE HEART DISEASE WITH HEART FA 01/24/2020 LUKAS NUNES MD Ot I25. 10 ATHSCL HEART DISEASE OF [place] CORONARY 01/24/2020 LUKAS NUNES MD Ot I50. 9 HEART FAILURE, UNSPECIFIED 01/24/2020 LUKAS NUNES MD Ot I65. 23 OCCLUSION AND STENOSIS OF BILATERAL [place]CU[place] 01/24/2020 LUKAS NUNES MD Ot J18. 9 PNEUMONIA, UNSPECIFIED ORGANISM 01/24/2020 LUKAS NUNES MD Ot J43. 9 EMPHYSEMA, UNSPECIFIED 01/24/2020 LUKAS NUNES MD Ot J96. 00 ACUTE RESPIRATORY FAILURE, UNSP W HYPOXI 01/24/2020 LUKAS NUNES MD Ot K21. 9 GASTRO-ESOPHAGEAL REFLUX DISEASE WITHOUT 01/24/2020 LUKAS NUNES MD Ot K56.690 OTHER PARTIAL INTESTINAL OBSTRUCTION 01/24/2020 LUKAS NUNES MD Ot M19. 91 PRIMARY OSTEOARTHRITIS, UNSPECIFIED SITE 01/24/2020 LUKAS NUNES MD Ot M54. 9 DORSALGIA, UNSPECIFIED 01/24/2020 LUKAS NUNES MD, Ot M79. 7 FIBROMYALGIA 01/24/2020 LUKAS NUNES MD Ot R00. 1 BRADYCARDIA, UNSPECIFIED 01/24/2020 LUKAS NUNES MD, Ot R53. 81 OTHER MALAISE 01/24/2020 LUKAS NUNES MD, Ot Z68. 31 BODY MASS INDEX (BMI) 31.0-31.9, ADULT 01/24/2020 LUKAS NUNES MD, Ot Z79. 84 CORRECTION (CURRENT) USE OF ORAL HYPOGLYC 01/24/2020 LUKAS NUNES MD, Ot Z86. 14 PERSONAL HISTORY OF METHICILLIN RESIS ST 01/24/2020 LUKAS NUNES MD, Ot Z95. 5 PRESENCE OF CORONARY ANGIOPLASTY IMPLANT 01/24/2020 LUKAS NUNES MD, Ot Z99. 81 DEPENDENCE ON SUPPLEMENTAL OXYGEN 01/27/2020 CHA VERDUGO DO Ot V72.84 EXAM PRE-OPERATIVE NOS 01/27/2020 CHA VERDUGO DO Ot 879.2 OPN WND ANTERIOR ABDOMEN 01/27/2020 CHA VERDUGO DO Ot E000.8 OTHER EXTERNAL CAUSE STATUS 01/27/2020 CHA VERDUGO DO Ot E928.9 ACCIDENT NOS 01/27/2020 JUAN LICONA MD Ot 272. 4 HYPERLIPIDEMIA NEC/NOS 01/27/2020 JUAN LICONA MD Ot 397. 0 TRICUSPID VALVE DISEASE 01/27/2020 JUAN LICONA MD Ot 424. 0 MITRAL VALVE DISORDER 01/27/2020 JUAN LICONA MD Ot 786. 09 RESPIRATORY ABNORM NEC 01/27/2020 JUAN LICONA MD Ot 786. 50 CHEST PAIN NOS 01/27/2020 JUAN LICONA MD Ot V46. 2 SUPPLEMENTAL OXYGEN 01/27/2020 JUAN LICONA MD Ot 272. 4 HYPERLIPIDEMIA NEC/NOS 01/27/2020 JUAN LICONA MD Ot 786. 09 RESPIRATORY ABNORM NEC 01/27/2020 JUAN LICONA MD Ot 786. 50 CHEST PAIN NOS 01/27/2020 JUAN LICONA MD Ot V46. 2 SUPPLEMENTAL OXYGEN 01/27/2020 RUDOLPH KENT DO Ot V76.12 OT SCREEN MAMMO-MALIGN NEOPLASM OF JE[place] 01/27/2020 QING TAO DO Ot 305. 1 TOBACCO USE DISORDER 01/27/2020 AISLINN VILLALPANDO QING M Ot 496 CHR AIRWAY OBSTRUCT NEC 01/27/2020 AISLINNDAVID VILLALPANDO QING Andrew Ot 786. 09 RESPIRATORY ABNORM NEC 01/27/2020 KASIE DPM, ANDREA Q Ot 355. 5 TARSAL TUNNEL SYNDROME 01/27/2020 [facility], DIANNTIE Ot V72.84 EXAM PRE-OPERATIVE NOS 01/27/2020 [facility], MEDARDOROUTIE Ot 530.10 ESOPHAGITIS NOS 01/27/2020 [facility], MEDARDOROUTIE Ot 553.3 DIAPHRAGMATIC HERNIA 01/27/2020 [facility], MEDARDOROUTIE Ot 787.20 DYSPHAGIA, UNSPECIFIED 01/27/2020 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 Ot 486 PNEUMONIA, ORGANISM NOS 01/27/2020 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 Ot 789.00 ABDOMINAL PAIN, UNSPECIFIED SITE 01/27/2020 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 Ot 959.6 HIP THIGH INJURY NOS 01/27/2020 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 Ot E000.8 OTHER EXTERNAL CAUSE STATUS 01/27/2020 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 Ot E849.4 ACCID IN RECREATION AREA 01/27/2020 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 Ot E888.9 FALL NOS 01/27/2020 GLADWIN KRISHAN, PETRA Raymond Ot 724. 5 BACKACHE NOS 01/27/2020 GLADWIN PETRA NICKERSON Ot 786. 50 CHEST PAIN NOS 01/27/2020 GLADWIN PETRA NICKERSON Ot 724. 1 PAIN IN THORACIC SPINE 01/27/2020 GLADWIN PETRA NICKERSON Ot 786. 50 CHEST PAIN NOS 01/27/2020 RUDOLPH KENT DO Ot 414.00 CORON ATHEROSCLER NOS TYPE VESSEL, NATIV 01/27/2020 RUDOLPH KENT DO Ot 786.50 CHEST PAIN NOS 01/27/2020 RUDOLPH KENT DO Ot I25.10 ATHSCL HEART DISEASE OF [place] CORONARY 01/27/2020 RUDOLPH KENT DO Ot R07.9 CHEST PAIN, UNSPECIFIED 01/27/2020 [facility] Ot R10.9 UNSPECIFIED ABDOMINAL PAIN 01/27/2020 [facility] Ot Z01.818 ENCOUNTER FOR OTHER PREPROCEDURAL EXAMIN 01/27/2020 LUCINA CHA VILLALPANDO Ot 553.20 VENTRAL HERNIA NOS 01/27/2020 LUCINA CHA VILLALPANDO Ot V81.5 SCREEN FOR NEPHROPATHY 01/27/2020 LUKASZ CROWLEY APRN Ot F17.210 NICOTINE DEPENDENCE, CIGARETTES, UNCOMPL 01/27/2020 LUKASZ CROWLEY APRN Ot J44.9 CHRONIC OBSTRUCTIVE PULMONARY DISEASE, U 01/27/2020 LUKASZ CROWLEY APRN Ot R06.00 DYSPNEA, UNSPECIFIED 01/27/2020 FRANDY DE LA ROSA Ot E11.9 TYPE 2 DIABETES MELLITUS WITHOUT COMPLIC 01/27/2020 FRANDY DE LA ROSA Ot E78.2 MIXED HYPERLIPIDEMIA 01/27/2020 FRANDY DE LA ROSA Ot I10 ESSENTIAL (PRIMARY) HYPERTENSION 01/27/2020 FRANDY DE LA ROSA Ot I25.10 ATHSCL HEART DISEASE OF [place] CORONARY 01/27/2020 FRANDY DE LA ROSA Ot E11.9 TYPE 2 DIABETES MELLITUS WITHOUT COMPLIC 01/27/2020 FRANDY DE LA ROSA Ot E78.2 MIXED HYPERLIPIDEMIA 01/27/2020 FRANDY DE LA ROSA Ot I10 ESSENTIAL (PRIMARY) HYPERTENSION 01/27/2020 FRANDY DE LA ROSA Ot I25.10 ATHSCL HEART DISEASE OF [place] CORONARY 01/27/2020 LUKASZ CROWLEY APRN Ot F17.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, UNSPECIFIED, UNCOMP 01/27/2020 LUKASZ CROWLEY APRN, Ot J44.9 CHRONIC OBSTRUCTIVE PULMONARY DISEASE, U 01/27/2020 RUDOLPH KENT DO Ot M94.8X6 OTHER SPECIFIED DISORDERS OF [place], 01/27/2020 RUDOLPH KENT DO, Ot S83.242A OTH TEAR OF MEDIAL MENISCUS, CURRENT INJ 01/27/2020 RUDOLPH KENT DO, Ot S83.282A OTH TEAR OF LAT MENSC, CURRENT INJURY, L 01/27/2020 RUDOLPH KENT DO Ot X58.XXXA EXPOSURE TO OTHER SPECIFIED FACTORS, INI 01/27/2020 RUDOLPH KENT DO Ot Y99.8 OTHER EXTERNAL CAUSE STATUS 01/27/2020 YOLI VILLALPANDO, RUDOLPH Raymond Ot Z12.31 ENCNTR SCREEN MAMMOGRAM FOR MALIGNANT NE 01/27/2020 YOLI VILLALPANDO, RUDOLPH Raymond Ot M40.209 UNSPECIFIED KYPHOSIS, SITE UNSPECIFIED 01/27/2020 RUDOLPH KENT DO, Ot M85.852 [facility] DISRD OF BONE DENSITY AND STRUCTURE, 01/27/2020 RUDOLPH KENT DO, Ot Z78.0 ASYMPTOMATIC MENOPAUSAL STATE 01/27/2020 EARNESTINE ALEXANDRE, RAY Davis Ot L98 .9 DISORDER OF THE SKIN AND SUBCUTANEOUS TI 01/27/2020 YOLI VILLALPANDO, RUDOLPH Raymond Ot M77.32 CALCANEAL SPUR, LEFT FOOT 01/27/2020 RUDOLPH KENT DO, Ot S79.912A UNSPECIFIED INJURY OF LEFT HIP, INITIAL 01/27/2020 RUDOLPH KENT DO, Ot W19.XXXA UNSPECIFIED FALL, INITIAL ENCOUNTER 01/27/2020 RUDOLPH KENT DO Ot F09 UNSP MENTAL DISORDER DUE TO KNOWN PHYSIO 01/27/2020 YOLI VILLALPANDO, RUDOLPH Raymond Ot G43.909 MIGRAINE, UNSP, NOT INTRACTABLE, WITHOUT 01/27/2020 KENT DO, RUDOLPH Raymond Ot W19.XXXA UNSPECIFIED FALL, INITIAL ENCOUNTER 01/27/2020 RUDOLPH KENT DO Ot M25.78 OSTEOPHYTE, VERTEBRAE 01/27/2020 RUDOLPH KENT DO, Ot M43.16 SPONDYLOLISTHESIS, LUMBAR REGION 01/27/2020 RUDOLPH KENT DO, Ot M46.86 OTHER SPECIFIED INFLAMMATORY SPONDYLOPAT 01/27/2020 RUDOLPH KENT DO Ot M47.27 OTHER SPONDYLOSIS WITH RADICULOPATHY, CATHLEEN 01/27/2020 RUDOLPH KENT DO, Ot M48.061 SPINAL STENOSIS, LUMBAR REGION WITHOUT N 01/27/2020 RUDOLPH KENT DO Ot M51.16 INTERVERTEBRAL DISC DISORDERS W RADICULO 01/27/2020 RUDOLPH KENT DO Ot M99.73 CONN TISS AND DISC STENOS OF INTVRT FORA 01/27/2020 RUDOLPH KENT DO, Ot S99.912A UNSPECIFIED INJURY OF LEFT ANKLE, INITIA 01/27/2020 LIVAN ALEXANDRE, JUAN Raymond Ot E11. 51 TYPE 2 DIABETES W DIABETIC PERIPHERAL AN 01/27/2020 LIVAN ALEXANDRE, JUAN Raymond Ot E78. 2 MIXED HYPERLIPIDEMIA 01/27/2020 LIVAN ALEXANDRE, JUAN Raymond Ot R06. 09 OTHER FORMS OF DYSPNEA 01/27/2020 LIVAN ALEXANDRE, JUAN J Ot R07. 89 OTHER CHEST PAIN 01/27/2020 LIVAN ALEXANDRE, JUAN Raymond Ot E11. 51 TYPE 2 DIABETES W DIABETIC PERIPHERAL AN 01/27/2020 JUAN LICONA MD Ot E78. 2 MIXED HYPERLIPIDEMIA 01/27/2020 LIVAN ALEXANDRE, JUAN Raymond Ot R06. 09 OTHER FORMS OF DYSPNEA 01/27/2020 LIVAN ALEXANDRE, JUAN Raymond Ot R07. 89 OTHER CHEST PAIN 01/27/2020 CARLINE, LUKASZ E 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 Ot F12.10 CANNABIS ABUSE, UNCOMPLICATED 01/27/2020 CARLINE, LUKASZ E 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 Ot F17.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, UNSPECIFIED, UNCOMP 01/27/2020 CARLINE, LUKASZ E 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 Ot G47.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 01/27/2020 CARLINE, LUKASZ E 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 Ot J30.9 ALLERGIC RHINITIS, UNSPECIFIED 01/27/2020 CARLINE, LUKASZ E 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 Ot J42 UNSPECIFIED CHRONIC BRONCHITIS 01/27/2020 CARLINE, LUKASZ E 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 Ot J44.9 CHRONIC OBSTRUCTIVE PULMONARY DISEASE, U 01/27/2020 CARLINE, LUKASZ E 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 Ot Z99.81 DEPENDENCE ON SUPPLEMENTAL OXYGEN 01/27/2020 CARLINE, LUKAZS E 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 Ot F12.10 CANNABIS ABUSE, UNCOMPLICATED 01/27/2020 CARLINE, LUKASZ E 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 Ot F17.210 NICOTINE DEPENDENCE, CIGARETTES, UNCOMPL 01/27/2020 CARLINE, LUKASZ E 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 Ot G47.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 01/27/2020 CARLINE, LUKASZ E 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 Ot J18.1 LOBAR PNEUMONIA, UNSPECIFIED ORGANISM 01/27/2020 CARLINE, LUKASZ E 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 Ot J30.9 ALLERGIC RHINITIS, UNSPECIFIED 01/27/2020 CARLINE, LUKASZ E 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 Ot J44.9 CHRONIC OBSTRUCTIVE PULMONARY DISEASE, U 01/27/2020 CARLINE, LUKASZ E 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 Ot Z12.2 ENCNTR SCREEN FOR MALIGNANT NEOPLASM OF 01/27/2020 CARLINE LUKASZ E 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 Ot Z99.81 DEPENDENCE ON SUPPLEMENTAL OXYGEN 01/27/2020 RUDOLPH KENT DO Ot Z45.2 ENCOUNTER FOR ADJUSTMENT AND MANAGEMENT 01/27/2020 SARAH ROBERTSON Ot 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, CERVICOTHORACIC REGIO 01/27/2020 SARAH ROBERTSON Ot M48.02 SPINAL STENOSIS, CERVICAL REGION 01/27/2020 SARAH ROBERTSON Ot M50.11 CERV DISC DISORDER WITH RADICULOPATHY, H 01/27/2020 SARAH ROBERTSON Ot M50.121 CERVICAL DISC DISORDER AT C4-C5 LEVEL WI 01/27/2020 CHA VERDUGO DO Ot V72.84 EXAM PRE-OPERATIVE NOS 01/27/2020 LUCINACHA DIANA DO Ot 879.2 OPN WND ANTERIOR ABDOMEN 01/27/2020 CHA VERDUGO DO Ot E000.8 OTHER EXTERNAL CAUSE STATUS 01/27/2020 CHA VERDUGO DO Ot E928.9 ACCIDENT NOS 01/27/2020 LIVAN ALEXANDRE, JUAN Raymond Ot 272. 4 HYPERLIPIDEMIA NEC/NOS 01/27/2020 JUAN LICONA MD Ot 397. 0 TRICUSPID VALVE DISEASE 01/27/2020 JUAN LICONA MD Ot 424. 0 MITRAL VALVE DISORDER 01/27/2020 JUAN LICONA MD Ot 786. 09 RESPIRATORY ABNORM NEC 01/27/2020 JUAN LICONA MD Ot 786. 50 CHEST PAIN NOS 01/27/2020 JUAN LICONA MD Ot V46. 2 SUPPLEMENTAL OXYGEN 01/27/2020 JUAN LICONA MD Ot 272. 4 HYPERLIPIDEMIA NEC/NOS 01/27/2020 JUAN LICONA MD Ot 786. 09 RESPIRATORY ABNORM NEC 01/27/2020 JUAN LICONA MD Ot 786. 50 CHEST PAIN NOS 01/27/2020 JUAN LICONA MD Ot V46. 2 SUPPLEMENTAL OXYGEN 01/27/2020 RUDOLPH KENT DO Ot V76.12 OTH SCREEN MAMMO-MALIGN NEOPLASM OF JE[place] 01/27/2020 QING TAO DO Ot 305. 1 TOBACCO USE DISORDER 01/27/2020 QING TAO DO Ot 496 CHR AIRWAY OBSTRUCT NEC 01/27/2020 QING TAO DO Ot 786. 09 RESPIRATORY ABNORM NEC 01/27/2020 KASIE DPM, ANDREA Q Ot 355. 5 TARSAL TUNNEL SYNDROME 01/27/2020 LUCINA CHA VILLALPANDO Ot V72.84 EXAM PRE-OPERATIVE NOS 01/27/2020 LUCINA CHA VILLALPANDO Ot 530.10 ESOPHAGITIS NOS 01/27/2020 LUCINA CHA VILLALPANDO Ot 553.3 DIAPHRAGMATIC HERNIA 01/27/2020 LUCINA DIANN VILLALPANDOTIE Ot 787.20 DYSPHAGIA, UNSPECIFIED 01/27/2020 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 Ot 486 PNEUMONIA, ORGANISM NOS 01/27/2020 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 Ot 789.00 ABDOMINAL PAIN, UNSPECIFIED SITE 01/27/2020 ADAMA KENTIA Jr SCIENTIFIC LABORATORY SUPERVISOR Ot 959.6 HIP THIGH INJURY NOS 01/27/2020 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 Ot E000.8 OTHER EXTERNAL CAUSE STATUS 01/27/2020 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 Ot E849.4 ACCID IN RECREATION AREA 01/27/2020 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 Ot E888.9 FALL NOS 01/27/2020 CAIO KRISHAN, PETRA Raymond Ot 724. 5 BACKACHE NOS 01/27/2020 GLADWIN PETRA NICKERSON Ot 786. 50 CHEST PAIN NOS 01/27/2020 PETRA KEARNEY DC Ot 724. 1 PAIN IN THORACIC SPINE 01/27/2020 PETRA KEARNEY DC Ot 786. 50 CHEST PAIN NOS 01/27/2020 RUDOLPH KENT DO Ot 414.00 CORON ATHEROSCLER NOS TYPE VESSEL, NATIV 01/27/2020 RUDOLPH KENT DO Ot 786.50 CHEST PAIN NOS 01/27/2020 RUDOLPH KENT DO Ot I25.10 ATHSCL HEART DISEASE OF [place] CORONARY 01/27/2020 RUDOLPH KENT DO Ot R07.9 CHEST PAIN, UNSPECIFIED 01/27/2020 CHA VERDUGO DO Ot R10.9 UNSPECIFIED ABDOMINAL PAIN 01/27/2020 LUCINA CHA VILLALPANDO Ot Z01.818 ENCOUNTER FOR OTHER PREPROCEDURAL EXAMIN 01/27/2020 CHA VERDUGO DO Ot 553.20 VENTRAL HERNIA NOS 01/27/2020 HCA VERDUGO DO Ot V81.5 SCREEN FOR NEPHROPATHY 01/27/2020 LUKASZ CROWLEY APRN Ot F17.210 NICOTINE DEPENDENCE, CIGARETTES, UNCOMPL 01/27/2020 LUKASZ CROWLEY APRN Ot J44.9 CHRONIC OBSTRUCTIVE PULMONARY DISEASE, U 01/27/2020 LUKASZ CROWLEY APRN Ot R06.00 DYSPNEA, UNSPECIFIED 01/27/2020 [facility] EVANS, FRANDY Aviles Ot E11.9 TYPE 2 DIABETES MELLITUS WITHOUT COMPLIC 01/27/2020 [facility], FRANDY Aviles Ot E78.2 MIXED HYPERLIPIDEMIA 01/27/2020 [facility] PA, FRANDY K Ot I10 ESSENTIAL (PRIMARY) HYPERTENSION 01/27/2020 [facility] CRISTINA, FRANDY Aviles Ot I25.10 ATHSCL HEART DISEASE OF [place] CORONARY 01/27/2020 [facility] CRISTINA, FRANDY Aviles Ot E11.9 TYPE 2 DIABETES MELLITUS WITHOUT COMPLIC 01/27/2020 [facility] CRISTINA, FRANDY Aviles Ot E78.2 MIXED HYPERLIPIDEMIA 01/27/2020 [facility] CRISTINA, FRANDY K Ot I10 ESSENTIAL (PRIMARY) HYPERTENSION 01/27/2020 [facility] CRISTINA, FRANDY Stefan Ot I25.10 ATHSCL HEART DISEASE OF [place] CORONARY 01/27/2020 LUKASZ CROWLEY APRN Ot F17.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, UNSPECIFIED, UNCOMP 01/27/2020 LUKASZ CROWLEY APRN Ot J44.9 CHRONIC OBSTRUCTIVE PULMONARY DISEASE, U 01/27/2020 RUDOLPH KENT DO Ot M94.8X6 OTHER SPECIFIED DISORDERS OF [place], 01/27/2020 RUDOLPH KENT DO, Ot S83.242A OTH TEAR OF MEDIAL MENISCUS, CURRENT INJ 01/27/2020 RUDOLPH KENT DO, Ot S83.282A OTH TEAR OF LAT MENSC, CURRENT INJURY, L 01/27/2020 RUDOLPH KENT DO Ot X58.XXXA EXPOSURE TO OTHER SPECIFIED FACTORS, INI 01/27/2020 RUDOLPH KENT DO Ot Y99.8 OTHER EXTERNAL CAUSE STATUS 01/27/2020 RUDOLPH KENT DO, Ot Z12.31 ENCNTR SCREEN MAMMOGRAM FOR MALIGNANT NE 01/27/2020 RUDOLPH KENT DO Ot M40.209 UNSPECIFIED KYPHOSIS, SITE UNSPECIFIED 01/27/2020 YOLI VILLALPANDO, RUDOLPH Raymond Ot M85.852 OT DISRD OF BONE DENSITY AND STRUCTURE, 01/27/2020 RUDOLPH KENT DO, Ot Z78.0 ASYMPTOMATIC MENOPAUSAL STATE 01/27/2020 EARNESTINE ALEXANDRE, RAY Davis Ot L98 .9 DISORDER OF THE SKIN AND SUBCUTANEOUS TI 01/27/2020 YOLI VILLALPANDO, RUDOLPH Raymond Ot M77.32 CALCANEAL SPUR, LEFT FOOT 01/27/2020 RUDOLPH KENT DO, Ot S79.912A UNSPECIFIED INJURY OF LEFT HIP, INITIAL 01/27/2020 YOLI VILLALPANDO, RUDOLPH Raymond Ot W19.XXXA UNSPECIFIED FALL, INITIAL ENCOUNTER 01/27/2020 RUDOLPH KENT DO, Ot F09 UNSP MENTAL DISORDER DUE TO KNOWN PHYSIO 01/27/2020 YOLI VILLLAPANDO, RUDOLPH Raymond Ot G43.909 MIGRAINE, UNSP, NOT INTRACTABLE, WITHOUT 01/27/2020 YOLI VILLALPANDO, RUDOLPH Raymond Ot W19.XXXA UNSPECIFIED FALL, INITIAL ENCOUNTER 01/27/2020 RUDOLPH KENT DO, Ot M25.78 OSTEOPHYTE, VERTEBRAE 01/27/2020 RUDOLPH KENT DO, Ot M43.16 SPONDYLOLISTHESIS, LUMBAR REGION 01/27/2020 RUDOLPH KENT DO, Ot M46.86 OTHER SPECIFIED INFLAMMATORY SPONDYLOPAT 01/27/2020 RUDOLPH KENT DO, Ot M47.27 OTHER SPONDYLOSIS WITH RADICULOPATHY, CATHLEEN 01/27/2020 RUDOLPH KENT DO, Ot M48.061 SPINAL STENOSIS, LUMBAR REGION WITHOUT N 01/27/2020 RUDOLPH KENT DO, Ot M51.16 INTERVERTEBRAL DISC DISORDERS W RADICULO 01/27/2020 YOLI VILLALPANDO, RUDOLPH Raymond Ot M99.73 CONN TISS AND DISC STENOS OF INTVRT FORA 01/27/2020 RUDOLPH KENT DO, Ot S99.912A UNSPECIFIED INJURY OF LEFT ANKLE, INITIA 01/27/2020 JUAN LICONA MD Ot E11. 51 TYPE 2 DIABETES W DIABETIC PERIPHERAL AN 01/27/2020 JUAN LICONA MD Ot E78. 2 MIXED HYPERLIPIDEMIA 01/27/2020 JUAN LICONA MD Ot R06. 09 OTHER FORMS OF DYSPNEA 01/27/2020 JUAN LICONA MD Ot R07. 89 OTHER CHEST PAIN 01/27/2020 LIVAN ALEXANDRE, JUAN Raymond Ot E11. 51 TYPE 2 DIABETES W DIABETIC PERIPHERAL AN 01/27/2020 LIVAN ALEXANDRE, JUAN Raymond Ot E78. 2 MIXED HYPERLIPIDEMIA 01/27/2020 LIVAN ALEXANDRE, JUAN Raymond Ot R06. 09 OTHER FORMS OF DYSPNEA 01/27/2020 LIVAN ALEXANDRE, JUAN Raymond Ot R07. 89 OTHER CHEST PAIN 01/27/2020 CARLINE, LUKASZ E 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 Ot F12.10 CANNABIS ABUSE, UNCOMPLICATED 01/27/2020 CARLINE, LUKASZ E 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 Ot F17.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, UNSPECIFIED, UNCOMP 01/27/2020 CARLINE, LUKASZ E 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 Ot G47.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 01/27/2020 CARLINE, LUKASZ E 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 Ot J30.9 ALLERGIC RHINITIS, UNSPECIFIED 01/27/2020 CARLINE, LUKASZ E 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 Ot J42 UNSPECIFIED CHRONIC BRONCHITIS 01/27/2020 CARLINE, LUKASZ E 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 Ot J44.9 CHRONIC OBSTRUCTIVE PULMONARY DISEASE, U 01/27/2020 CARLINE, LUKASZ E 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 Ot Z99.81 DEPENDENCE ON SUPPLEMENTAL OXYGEN 01/27/2020 CARLINE, LUKASZ E 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 Ot F12.10 CANNABIS ABUSE, UNCOMPLICATED 01/27/2020 CARLINE, LUKASZ E 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 Ot F17.210 NICOTINE DEPENDENCE, CIGARETTES, UNCOMPL 01/27/2020 CARLINE, LUKASZ E 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 Ot G47.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 01/27/2020 CARLINE, LUKASZ E 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 Ot J18.1 LOBAR PNEUMONIA, UNSPECIFIED ORGANISM 01/27/2020 CARLINE, LUKASZ E 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 Ot J30.9 ALLERGIC RHINITIS, UNSPECIFIED 01/27/2020 CARLINE, LUKASZ E 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 Ot J44.9 CHRONIC OBSTRUCTIVE PULMONARY DISEASE, U 01/27/2020 CARLINE, LUKASZ E 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 Ot Z12.2 ENCNTR SCREEN FOR MALIGNANT NEOPLASM OF 01/27/2020 CRALINE, LUKASZ E 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 Ot Z99.81 DEPENDENCE ON SUPPLEMENTAL OXYGEN 01/27/2020 RUDOLPH KENT DO Ot Z45.2 ENCOUNTER FOR ADJUSTMENT AND MANAGEMENT 01/27/2020 SARAH ROBERTSON Ot 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, CERVICOTHORACIC REGIO 01/27/2020 MARCELO, SARAH J SCIENTIFIC LABORATORY SUPERVISOR Ot M48.02 SPINAL STENOSIS, CERVICAL REGION 01/27/2020 SARAH ROBERTSON SCIENTIFIC LABORATORY SUPERVISOR Ot M50.11 CERV DISC DISORDER WITH RADICULOPATHY, H 01/27/2020 SARAH ROBERTSON SCIENTIFIC LABORATORY SUPERVISOR Ot M50.121 CERVICAL DISC DISORDER AT C4-C5 LEVEL [place] 01/29/2020 QIU DO, RANDAL Ot E11.40 TYPE 2 DIABETES MELLITUS WITH DIABETIC N 01/29/2020 QIU DO, RANDAL Ot E78.5 HYPERLIPIDEMIA, UNSPECIFIED 01/29/2020 QIU DO, RANDAL Ot F17.21 0 NICOTINE DEPENDENCE, CIGARETTES, UNCOMPL 01/29/2020 QIU DO, RANDAL Ot F32.9 MAJOR DEPRESSIVE DISORDER, SINGLE EPISOD 01/29/2020 QIU DO, RANDAL Ot F41.9 ANXIETY DISORDER, UNSPECIFIED 01/29/2020 QIU DO, RANDAL Ot G72.89 OTHER SPECIFIED MYOPATHIES 01/29/2020 QIU DO, RANDAL Ot I10 ESSENTIAL (PRIMARY) HYPERTENSION 01/29/2020 QIU DO, RANDAL Ot J43.9 EMPHYSEMA, UNSPECIFIED 01/29/2020 QIU DO, RANDAL Ot M19.91 PRIMARY OSTEOARTHRITIS, UNSPECIFIED SITE 01/29/2020 QIU DO, RANDAL Ot M79.7 FIBROMYALGIA 01/29/2020 QIU DO, RANDAL Ot N31.9 NEUROMUSCULAR DYSFUNCTION OF BLADDER, UN 01/29/2020 QIU DO, RANDAL Ot R09.02 HYPOXEMIA 01/29/2020 QIU DO, RANDAL Ot R15.9 FULL INCONTINENCE OF FECES 01/29/2020 QIU DO, RANDAL Ot R33.9 RETENTION OF URINE, UNSPECIFIED 01/29/2020 QIU DO, RANDAL Ot Z79.4 CORRECTION (CURRENT) USE OF INSULIN 01/29/2020 QIU DO, RANDAL Ot Z79.89 1 CORRECTION (CURRENT) USE OF OPIATE ANALGE 01/29/2020 QIU DO, RANDAL Ot Z87.01 PERSONAL HISTORY OF PNEUMONIA (RECURRENT 01/29/2020 QIU DO, RANDAL Ot Z90.49 ACQUIRED ABSENCE OF OTHER SPECIFIED PART 01/29/2020 QIU DO, RANDAL Ot Z90.71 0 ACQUIRED ABSENCE OF BOTH CERVIX AND UTER 01/29/2020 QIU DO, RANDAL Ot Z95.5 PRESENCE OF CORONARY ANGIOPLASTY IMPLANT 01/29/2020 RANDAL QIU DO Ot Z99.81 DEPENDENCE ON SUPPLEMENTAL OXYGEN Procedures Code Description Performed By Per formed On [id number] SISTANCE WITH RESPIRATORY VENTILATION, 12/20/[id number] DAWKINS OF STOMACH WITH DRAINAGE DEVICE 01/17/2020 Results Test Result Range Sputum Gram stain - 11/01/16 13:15 GRAM STAIN SPUTUM YEAST CELLS OBSERVED NRG Bacterial sputum culture - 11/01/16 13:1 5 FREE TEXT EXTERNAL PLUS NORMAL DELGADO NR G QUANTITY OF GROWTH Moderate Growth NRG Bacterial sputum culture [id number] NRG Methicillin resistant Staphylococcus aur eus (MRSA) screening culture - 09/19/18 08:00 Methicillin resistant Staphylococcus aureus (MRSA) scr eening culture NEG NRG Capillary blood glucose measurement by g lucometer (mass/volume) - 09/19/18 08:13 Capillary blood glucose measurement by glucometer (mas s/volume) 90 mg/dL 70-110 Capillary blood glucose measurement by g lucometer (mass/volume) - 09/19/18 11:29 Capillary blood glucose measurement by glucometer (mas s/volume) 104 mg/dL 70-110 Automated blood complete blood count (he mogram) panel - 09/19/18 14:48 Blood leukocytes automated count (number/volume) 11.4 10*3/uL 4.3-11.0 Blood erythrocytes automated count (number/volume) 4.35 10*6/uL 4.35-5.85 Venous blood hemoglobin measurement (mass/volume) 12.3 g/dL 11.5-16.0 Blood hematocrit (volume fraction) 38 % 35-52 Automated erythrocyte mean corpuscular volume 88 [ foz_us] 80-99 Automated erythrocyte mean corpuscular h emoglobin (mass per erythrocyte) 28 pg 25-34 Automated erythrocyte mean corpuscular h emoglobin concentration measurement (mass/volume) 32 g/dL 32-36 Automated erythrocyte distribution width ratio 13. 7 % 10.0- 14.5 Automated blood platelet count (count/volume) 251 10*3/uL 130-400 Automated blood platelet mean volume measurement 10.4 [foz_us] 7.4-10.4 PT panel in platelet poor plasma by coag ulation assay - 09/19/18 14:48 Prothrombin time (PT) in platelet poor plasma by coagu lation assay 12.7 s 12.2-14.7 INR in platelet poor plasma or blood by coagulation as say 1.0 0.8-1.4 Activated partial thromboplastin time (a PTT) in platelet poor plasma bycoagulation assay - 09/19/18 14:48 Activated partial thromboplastin time (a PTT) in platelet poor plasma bycoagulation assay 34 s 24-35 Comprehensive metabolic panel - 09/19/18 14:48 Serum or plasma sodium measurement (moles/volume) 140 mmol/L 135-145 Serum or plasma potassium measurement (moles/volume) 4.5 mmol/L 3.6-5.0 Serum or plasma chloride measurement (moles/volume) 103 mmol/L 98-107 Carbon dioxide 26 mmol/L 21-32 Serum or plasma anion gap determination (moles/volume) 11 mmol/L 5-14 Serum or plasma urea nitrogen measurement (mass/volume ) 14 mg/dL 7-18 Serum or plasma creatinine measurement (mass/volume) 0.92 mg/dL 0.60-1.30 Serum or plasma urea nitrogen/creatinine mass ratio 15 NRG Serum or plasma creatinine measurement w ith calculation of estimated glomerular filtration rate > NRG Serum or plasma glucose measurement (mass/volume) 81 mg/dL 70-105 Serum or plasma calcium measurement (mass/volume) 9.1 mg/dL 8.5-10.1 Serum or plasma total bilirubin measurement (mass/volu me) 0.3 mg/dL 0.1-1.0 Serum or plasma alkaline phosphatase manny surement (enzymatic activity/volume) 95 U/L 40-136 Serum or plasma aspartate aminotransfera se measurement (enzymatic activity/volume) 16 U/L 5-34 Serum or plasma alanine aminotransferase measurement (enzymatic activity/volume) 9 U/L 0-55 Serum or plasma protein measurement (mass/volume) 6.3 g/dL 6.4-8.2 Serum or plasma albumin measurement (mass/volume) 3.6 g/dL 3.2-4.5 CALCIUM CORRECTED 9.4 mg/dL 8.5-10.1 Capillary blood glucose measurement by g lucometer (mass/volume) - 10/08/18 11:45 Capillary blood glucose measurement by glucometer (mas s/volume) 106 mg/dL 70-110 Methicillin resistant Staphylococcus aur eus (MRSA) screening culture - 11/27/18 11:48 Methicillin resistant Staphylococcus aureus (MRSA) scr eening culture NEG NRG Automated blood complete blood count (he mogram) panel - 03/19/19 07:20 Blood leukocytes automated count (number/volume) 9.3 10*3/uL 4.3-11.0 Blood erythrocytes automated count (number/volume) 4.71 10*6/uL 4.35-5.85 Venous blood hemoglobin measurement (mass/volume) 13.2 g/dL 11.5-16.0 Blood hematocrit (volume fraction) 40 % 35-52 Automated erythrocyte mean corpuscular volume 85 [ foz_us] 80-99 Automated erythrocyte mean corpuscular h emoglobin (mass per erythrocyte) 28 pg 25-34 Automated erythrocyte mean corpuscular h emoglobin concentration measurement (mass/volume) 33 g/dL 32-36 Automated erythrocyte distribution width ratio 13. 9 % 10.0- 14.5 Automated blood platelet count (count/volume) 255 10*3/uL 130-400 Automated blood platelet mean volume measurement 10.0 [foz_us] 7.4-10.4 PT panel in platelet poor plasma by coag ulation assay - 03/19/19 07:20 Prothrombin time (PT) in platelet poor plasma by coagu lation assay 13.0 s 12.2-14.7 INR in platelet poor plasma or blood by coagulation as say 1.0 0.8-1.4 Activated partial thromboplastin time (a PTT) in platelet poor plasma bycoagulation assay - 03/19/19 07:20 Activated partial thromboplastin time (a PTT) in platelet poor plasma bycoagulation assay 78 s 24-35 Comprehensive metabolic panel - 03/19/19 07:20 Serum or plasma sodium measurement (moles/volume) 138 mmol/L 135-145 Serum or plasma potassium measurement (moles/volume) 4.1 mmol/L 3.6-5.0 Serum or plasma chloride measurement (moles/volume) 103 mmol/L 98-107 Carbon dioxide 25 mmol/L 21-32 Serum or plasma anion gap determination (moles/volume) 10 mmol/L 5-14 Serum or plasma urea nitrogen measurement (mass/volume ) 16 mg/dL 7-18 Serum or plasma creatinine measurement (mass/volume) 0.87 mg/dL 0.60-1.30 Serum or plasma urea nitrogen/creatinine mass ratio 18 NRG Serum or plasma creatinine measurement w ith calculation of estimated glomerular filtration rate > NRG Serum or plasma glucose measurement (mass/volume) 114 mg/dL 70-105 Serum or plasma calcium measurement (mass/volume) 9.3 mg/dL 8.5-10.1 Serum or plasma total bilirubin measurement (mass/volu me) 0.4 mg/dL 0.1-1.0 Serum or plasma alkaline phosphatase manny surement (enzymatic activity/volume) 119 U/L 40-136 Serum or plasma aspartate aminotransfera se measurement (enzymatic activity/volume) 12 U/L 5-34 Serum or plasma alanine aminotransferase measurement (enzymatic activity/volume) 6 U/L 0-55 Serum or plasma protein measurement (mass/volume) 7.0 g/dL 6.4-8.2 Serum or plasma albumin measurement (mass/volume) 4.0 g/dL 3.2-4.5 CALCIUM CORRECTED 9.3 mg/dL 8.5-10.1 Methicillin resistant Staphylococcus aur eus (MRSA) screening culture - 03/19/19 07:20 Methicillin resistant Staphylococcus aureus (MRSA) scr eening culture NEG NRG Capillary blood glucose measurement by g lucometer (mass/volume) - 06/25/19 08:28 Capillary blood glucose measurement by glucometer (mas s/volume) 118 mg/dL 70-110 BODY FLUID DIFFERENTIAL - 06/25/19 08:55 Specimen source identification of body fluid OTHER NRG Evaluation of color of body fluid COLORLESS NRG Determination of appearance of body fluid SLT CLDY NRG Manual body fluid polymorphonuclear cells/100 leukocyt es 22 % NRG Manual body fluid mononuclear cells/100 leukocytes 0 % NRG Manual body fluid lymphocytes/100 leukocytes 15 % NRG Manual body fluid other cell count (number) 63 % NRG Mycobacterium species detection by organ ism specific culture - 06/25/19 08:55 Sputum Gram stain - 06/25/19 08:55 Sputum Gram stain Moderate Gram positive cocci in chains NRG Bacteria identification in bronchial spe cimen by aerobe culture - 06/25/19 08:55 QUANTITY OF GROWTH . NRG Bacteria identification in bronchial specimen by aerob e culture USUAL RESP NRG FTX;REPORTABLE 10,000 CFU/ML NRG Fungus culture - 06/25/19 08:55 QUANTITY OF GROWTH Rare NRG Fungus culture [id number] NRG Mycobacterium species detection by organ ism specific culture - 06/25/19 08:56 Sputum Gram stain - 06/25/19 08:56 Sputum Gram stain No bacteria seen NRG Bacteria identification in bronchial spe cimen by aerobe culture - 06/25/19 08:56 QUANTITY OF GROWTH . NRG Bacteria identification in bronchial specimen by aerob e culture USUAL RESP NRG FTX;REPORTABLE 8,000 CFU/ML NRG Fungus culture - 06/25/19 08:56 Complete urinalysis with reflex to cultu re - 10/24/19 11:25 Urine color determination YELLOW NRG Urine clarity determination CLEAR NR G Urine pH measurement by test strip 5.5 5-9 Specific gravity of urine by test strip 1.020 1.016-1.022 Urine protein assay by test strip, semi-quantitative NEGATIVE NEGATIVE Urine glucose detection by automated test strip NE GATIVE NEGATIVE Erythrocytes detection in urine sediment by light micr oscopy NEGATIVE NEGATIVE Urine ketones detection by automated test strip NE GATIVE NEGATIVE Urine nitrite detection by test strip NEGATIVE NEGATIVE Urine total bilirubin detection by test strip NEGA TIVE NEGATIVE Urine urobilinogen measurement by automated test strip (mass/volume) 0.2 mg/dL < = 1.0 Urine leukocyte esterase detection by dipstick NEG ATIVE NEGATIVE Automated urine sediment erythrocyte cou nt by microscopy (number/high power field) NONE NRG Automated urine sediment leukocyte count by microscopy (number/high power field) NONE NRG Bacteria detection in urine sediment by light microsco py NEGATIVE NRG Squamous epithelial cells detection in u rine sediment by light microscopy RARE NRG Crystals detection in urine sediment by light microsco py NONE NRG Casts detection in urine sediment by light microscopy PRESENT NRG Mucus detection in urine sediment by light microscopy NEGATIVE NRG Complete urinalysis with reflex to culture NO NRG Hyaline casts detection in urine sediment by light ryan roscopy 5-10 NRG Urine drug screening test - 10/24/19 11: 25 Urine phencyclidine detection by screening method NEGATIVE NEGATIVE Urine benzodiazepines detection by screening method POSITIVE NEGATIVE Urine cocaine detection NEGATIVE NEGATI VE Urine amphetamines detection by screening method N EGATIVE NEGATIVE Urine methamphetamine detection by screening method NEGATIVE NEGATIVE Urine cannabinoids detection by screening method N EGATIVE NEGATIVE Urine opiates detection by screening method NEGATI VE NEGATIVE Urine barbiturates detection NEGATIVE N EGATIVE Screening urine tricyclic antidepressants detection POSITIVE NEGATIVE Urine methadone detection by screening method NEGA TIVE NEGATIVE Urine oxycodone detection POSITIVE NEGA TIVE Urine propoxyphene detection NEGATIVE N EGATIVE Influenza virus A and B antigen detectio n - 10/24/19 11:26 FLU RESULT NEGATIVE FOR INFLUENZA A AND B ANTIGENS BY IA NRG Complete blood count (CBC) with automate d white blood cell (WBC) differential - 10/24/19 11:55 Blood leukocytes automated count (number/volume) 14.0 10*3/uL 4.3-11.0 Blood erythrocytes automated count (number/volume) 3.91 10*6/uL 4.35-5.85 Venous blood hemoglobin measurement (mass/volume) 10.8 g/dL 11.5-16.0 Blood hematocrit (volume fraction) 34 % 35-52 Automated erythrocyte mean corpuscular volume 87 [ foz_us] 80-99 Automated erythrocyte mean corpuscular h emoglobin (mass per erythrocyte) 28 pg 25-34 Automated erythrocyte mean corpuscular h emoglobin concentration measurement (mass/volume) 32 g/dL 32-36 Automated erythrocyte distribution width ratio 14. 4 % 10.0- 14.5 Automated blood platelet count (count/volume) 262 10*3/uL 130-400 Automated blood platelet mean volume measurement 10.4 [foz_us] 7.4-10.4 Automated blood neutrophils/100 leukocytes 79 % 42-75 Automated blood lymphocytes/100 leukocytes 14 % 12-44 Blood monocytes/100 leukocytes 5 % 0-12 Automated blood eosinophils/100 leukocytes 1 % 0-10 Automated blood basophils/100 leukocytes 0 % 0-10 Blood neutrophils automated count (number/volume) 11.1 10*3 1.8-7.8 Blood lymphocytes automated count (number/volume) 2.0 10*3 1.0-4.0 Blood monocytes automated count (number/volume) 0. 7 10*3 0.0-1.0 Automated eosinophil count 0.1 10*3/uL 0 .0-0.3 Automated blood basophil count (count/volume) 0.0 10*3/uL 0.0-0.1 Comprehensive metabolic panel - 10/24/19 11:55 Serum or plasma sodium measurement (moles/volume) 138 mmol/L 135-145 Serum or plasma potassium measurement (moles/volume) 5.2 mmol/L 3.6-5.0 Serum or plasma chloride measurement (moles/volume) 103 mmol/L 98-107 Carbon dioxide 27 mmol/L 21-32 Serum or plasma anion gap determination (moles/volume) 8 mmol/L 5-14 Serum or plasma urea nitrogen measurement (mass/volume ) 33 mg/dL 7-18 Serum or plasma creatinine measurement (mass/volume) 1.50 mg/dL 0.60-1.30 Serum or plasma urea nitrogen/creatinine mass ratio 22 NRG Serum or plasma creatinine measurement w ith calculation of estimated glomerular filtration rate 35 NRG Serum or plasma glucose measurement (mass/volume) 108 mg/dL 70-105 Serum or plasma calcium measurement (mass/volume) 7.9 mg/dL 8.5-10.1 Serum or plasma total bilirubin measurement (mass/volu me) 0.3 mg/dL 0.1-1.0 Serum or plasma alkaline phosphatase manny surement (enzymatic activity/volume) 93 U/L 40-136 Serum or plasma aspartate aminotransfera se measurement (enzymatic activity/volume) 11 U/L 5-34 Serum or plasma alanine aminotransferase measurement (enzymatic activity/volume) < U/L 0-55 Serum or plasma protein measurement (mass/volume) 6.4 g/dL 6.4-8.2 Serum or plasma albumin measurement (mass/volume) 3.5 g/dL 3.2-4.5 CALCIUM CORRECTED 8.3 mg/dL 8.5-10.1 Serum or plasma troponin i.cardiac measu rement (mass/volume) - 10/24/19 11:55 Serum or plasma troponin i.cardiac measurement (mass/v olume) < ng/mL <0.028 Lipase - 10/24/19 11:55 Lipase 4 U/L 8-78 Serum or plasma ethanol measurement (mas s/volume) - 10/24/19 11:55 Serum or plasma ethanol measurement (mass/volume) < mg/dL <10 Serum or plasma lithium measurement (mol es/volume) - 10/24/19 11:55 BNP PT 59.0 pg/mL <100.0 Manual absolute plasma cell count - 10/12 01/28 11:55 Blood monocytes/100 leukocytes 8 % NRG Manual blood segmented neutrophils/100 leukocytes 71 % NRG Blood band neutrophils/100 leukocytes 4 % NRG Manual blood lymphocytes/100 leukocytes 14 % NRG Manual eosinophils/100 leukocytes in nose 3 % NRG Manual blood basophils/100 leukocytes 0 % NRG Blood erythrocyte morphology finding identification NORMAL NRG Blood lactic acid measurement (moles/vol ume) - 10/24/19 11:55 Blood lactic acid measurement (moles/volume) 0.60 mmol/L 0.50-2.00 PROCALCITONIN (PCT) - 10/24/19 11:55 PROCALCITONIN (PCT) 0.07 ng/mL <0.10 Bacterial blood culture - 10/24/19 11:55 Bacterial blood culture NG NRG Bacterial blood culture - 10/24/19 12:50 Bacterial blood culture NG NRG Arterial blood gas measurement - 9 13:00 Blood pCO2 63 mm[Hg] 35-45 Blood pO2 37 mm[Hg] 79-93 Arterial blood bicarbonate measurement (moles/volume) 29 mmol/L 23-27 Arterial blood base excess by calculation 2.5 mmol /L -2.5-2.5 Arterial blood oxygen saturation measurement 57 % 94-100 * Inhaled oxygen flow rate 10 L NRG Arterial blood pH measurement with patient temperature correction 7.28 7.37-7.43 Arterial blood carbon dioxide, total measurement (mole s/volume) 30.7 mmol/L 21.0-31.0 Body site RIGHT RADIAL NRG Assessment of wrist artery patency prior to arterial p uncture POSITIVE NRG Setting of ventilation mode NO NR G Measurement of body temperature 36.6 NRG Methicillin resistant Staphylococcus aur eus (MRSA) screening culture - 10/24/19 17:11 Methicillin resistant Staphylococcus aureus (MRSA) scr eening culture NEG NRG Complete blood count (CBC) with automate d white blood cell (WBC) differential - 10/25/19 03:25 Blood leukocytes automated count (number/volume) 9.5 10*3/uL 4.3-11.0 Blood erythrocytes automated count (number/volume) 3.69 10*6/uL 4.35-5.85 Venous blood hemoglobin measurement (mass/volume) 10.2 g/dL 11.5-16.0 Blood hematocrit (volume fraction) 33 % 35-52 Automated erythrocyte mean corpuscular volume 89 [ foz_us] 80-99 Automated erythrocyte mean corpuscular h emoglobin (mass per erythrocyte) 28 pg 25-34 Automated erythrocyte mean corpuscular h emoglobin concentration measurement (mass/volume) 31 g/dL 32-36 Automated erythrocyte distribution width ratio 14. 2 % 10.0- 14.5 Automated blood platelet count (count/volume) 245 10*3/uL 130-400 Automated blood platelet mean volume measurement 10.9 [foz_us] 7.4-10.4 Automated blood neutrophils/100 leukocytes 72 % 42-75 Automated blood lymphocytes/100 leukocytes 23 % 12-44 Blood monocytes/100 leukocytes 5 % 0-12 Automated blood eosinophils/100 leukocytes 0 % 0-10 Automated blood basophils/100 leukocytes 0 % 0-10 Blood neutrophils automated count (number/volume) 6.8 10*3 1.8-7.8 Blood lymphocytes automated count (number/volume) 2.2 10*3 1.0-4.0 Blood monocytes automated count (number/volume) 0. 5 10*3 0.0-1.0 Automated eosinophil count 0.0 10*3/uL 0 .0-0.3 Automated blood basophil count (count/volume) 0.0 10*3/uL 0.0-0.1 Whole blood basic metabolic panel - 10/12 02/28 03:25 Serum or plasma sodium measurement (moles/volume) 144 mmol/L 135-145 Serum or plasma potassium measurement (moles/volume) 4.2 mmol/L 3.6-5.0 Serum or plasma chloride measurement (moles/volume) 109 mmol/L 98-107 Carbon dioxide 26 mmol/L 21-32 Serum or plasma anion gap determination (moles/volume) 9 mmol/L 5-14 Serum or plasma urea nitrogen measurement (mass/volume ) 23 mg/dL 7-18 Serum or plasma creatinine measurement (mass/volume) 1.12 mg/dL 0.60-1.30 Serum or plasma urea nitrogen/creatinine mass ratio 21 NRG Serum or plasma creatinine measurement w ith calculation of estimated glomerular filtration rate 48 NRG Serum or plasma glucose measurement (mass/volume) 100 mg/dL 70-105 Serum or plasma calcium measurement (mass/volume) 8.0 mg/dL 8.5-10.1 Serum or plasma phosphate measurement (m ass/volume) - 10/25/19 03:25 Serum or plasma phosphate measurement (mass/volume) 3.5 mg/dL 2.3-4.7 Magnesium - 10/25/19 03:25 Magnesium 1.7 mg/dL 1.6-2.4 Capillary blood glucose measurement by g lucometer (mass/volume) - 12/10/19 10:39 Capillary blood glucose measurement by glucometer (mas s/volume) 115 mg/dL 70-110 Methicillin resistant Staphylococcus aur eus (MRSA) screening culture - 12/10/19 10:50 Methicillin resistant Staphylococcus aureus (MRSA) scr eening culture NEG NRG Influenza virus A and B antigen detectio n - 12/19/19 18:22 FLU RESULT NEGATIVE FOR INFLUENZA A AND B ANTIGENS BY IA NRG Complete blood count (CBC) with automate d white blood cell (WBC) differential - 12/19/19 18:26 Blood leukocytes automated count (number/volume) 9.6 10*3/uL 4.3-11.0 Blood erythrocytes automated count (number/volume) 3.69 10*6/uL 4.35-5.85 Venous blood hemoglobin measurement (mass/volume) 10.1 g/dL 11.5-16.0 Blood hematocrit (volume fraction) 32 % 35-52 Automated erythrocyte mean corpuscular volume 86 [ foz_us] 80-99 Automated erythrocyte mean corpuscular h emoglobin (mass per erythrocyte) 27 pg 25-34 Automated erythrocyte mean corpuscular h emoglobin concentration measurement (mass/volume) 32 g/dL 32-36 Automated erythrocyte distribution width ratio 14. 9 % 10.0- 14.5 Automated blood platelet count (count/volume) 265 10*3/uL 130-400 Automated blood platelet mean volume measurement 10.2 [foz_us] 7.4-10.4 Automated blood neutrophils/100 leukocytes 75 % 42-75 Automated blood lymphocytes/100 leukocytes 13 % 12-44 Blood monocytes/100 leukocytes 10 % 0-12 Automated blood eosinophils/100 leukocytes 2 % 0-10 Automated blood basophils/100 leukocytes 0 % 0-10 Blood neutrophils automated count (number/volume) 7.2 10*3 1.8-7.8 Blood lymphocytes automated count (number/volume) 1.3 10*3 1.0-4.0 Blood monocytes automated count (number/volume) 1. 0 10*3 0.0-1.0 Automated eosinophil count 0.1 10*3/uL 0 .0-0.3 Automated blood basophil count (count/volume) 0.0 10*3/uL 0.0-0.1 Blood lactic acid measurement (moles/vol ume) - 12/19/19 18:26 Blood lactic acid measurement (moles/volume) 0.60 mmol/L 0.50-2.00 Comprehensive metabolic panel - 12/19/19 18:26 Serum or plasma sodium measurement (moles/volume) 135 mmol/L 135-145 Serum or plasma potassium measurement (moles/volume) 4.9 mmol/L 3.6-5.0 Serum or plasma chloride measurement (moles/volume) 102 mmol/L 98-107 Carbon dioxide 22 mmol/L 21-32 Serum or plasma anion gap determination (moles/volume) 11 mmol/L 5-14 Serum or plasma urea nitrogen measurement (mass/volume ) 43 mg/dL 7-18 Serum or plasma creatinine measurement (mass/volume) 1.63 mg/dL 0.60-1.30 Serum or plasma urea nitrogen/creatinine mass ratio 26 NRG Serum or plasma creatinine measurement w ith calculation of estimated glomerular filtration rate 31 NRG Serum or plasma glucose measurement (mass/volume) 130 mg/dL 70-105 Serum or plasma calcium measurement (mass/volume) 9.0 mg/dL 8.5-10.1 Serum or plasma total bilirubin measurement (mass/volu me) 0.4 mg/dL 0.1-1.0 Serum or plasma alkaline phosphatase manny surement (enzymatic activity/volume) 92 U/L 40-136 Serum or plasma aspartate aminotransfera se measurement (enzymatic activity/volume) 66 U/L 5-34 Serum or plasma alanine aminotransferase measurement (enzymatic activity/volume) 20 U/L 0-55 Serum or plasma protein measurement (mass/volume) 7.0 g/dL 6.4-8.2 Serum or plasma albumin measurement (mass/volume) 3.6 g/dL 3.2-4.5 CALCIUM CORRECTED 9.3 mg/dL 8.5-10.1 PT panel in platelet poor plasma by coag ulation assay - 12/19/19 18:26 Prothrombin time (PT) in platelet poor plasma by coagu lation assay 14.4 s 12.2-14.7 INR in platelet poor plasma or blood by coagulation as say 1.1 0.8-1.4 Activated partial thromboplastin time (a PTT) in platelet poor plasma bycoagulation assay - 02/07/20 18:26 Activated partial thromboplastin time (a PTT) in platelet poor plasma bycoagulation assay 49 s 24-35 Bacterial blood culture - 12/19/19 18:26 Bacterial blood culture NG NRG Arterial blood gas measurement - 0 18:30 Blood pCO2 54 mm[Hg] 35-45 Blood pO2 66 mm[Hg] 79-93 Arterial blood bicarbonate measurement (moles/volume) 24 mmol/L 23-27 Arterial blood base excess by calculation -1.5 mmo l/L -2.5-2.5 Arterial blood oxygen saturation measurement 89 % 94-100 * Inhaled oxygen flow rate 3 L NRG Arterial blood pH measurement with patient temperature correction 7.28 7.37-7.43 Arterial blood carbon dioxide, total measurement (mole s/volume) 26.1 mmol/L 21.0-31.0 Body site LEFT RADIAL NRG Assessment of wrist artery patency prior to arterial p uncture POSITIVE NRG Setting of ventilation mode NO NR G Measurement of body temperature 36.9 NRG Bacterial blood culture - 12/19/19 18:45 Bacterial blood culture NG NRG Methicillin resistant Staphylococcus aur eus (MRSA) screening culture - 12/19/19 21:09 Methicillin resistant Staphylococcus aureus (MRSA) scr eening culture NEG NRG Arterial blood gas measurement - 0 04:00 Blood pCO2 48 mm[Hg] 35-45 Blood pO2 107 mm[Hg] 79-93 Arterial blood bicarbonate measurement (moles/volume) 24 mmol/L 23-27 Arterial blood base excess by calculation -1.5 mmo l/L -2.5-2.5 Arterial blood oxygen saturation measurement 97 % 94-100 * Inhaled oxygen flow rate 45% NRG Arterial blood pH measurement with patient temperature correction 7.32 7.37-7.43 Arterial blood carbon dioxide, total measurement (mole s/volume) 25.3 mmol/L 21.0-31.0 Body site LEFT RADIAL NRG Assessment of wrist artery patency prior to arterial p uncture YES-POS NRG Setting of ventilation mode NO NR G Measurement of body temperature 36.6 NRG Complete blood count (CBC) with automate d white blood cell (WBC) differential - 12/20/19 04:00 Blood leukocytes automated count (number/volume) 7.4 10*3/uL 4.3-11.0 Blood erythrocytes automated count (number/volume) 3.39 10*6/uL 4.35-5.85 Venous blood hemoglobin measurement (mass/volume) 9.1 g/dL 11.5-16.0 Blood hematocrit (volume fraction) 29 % 35-52 Automated erythrocyte mean corpuscular volume 86 [ foz_us] 80-99 Automated erythrocyte mean corpuscular h emoglobin (mass per erythrocyte) 27 pg 25-34 Automated erythrocyte mean corpuscular h emoglobin concentration measurement (mass/volume) 31 g/dL 32-36 Automated erythrocyte distribution width ratio 14. 7 % 10.0- 14.5 Automated blood platelet count (count/volume) 245 10*3/uL 130-400 Automated blood platelet mean volume measurement 10.3 [foz_us] 7.4-10.4 Automated blood neutrophils/100 leukocytes 95 % 42-75 Automated blood lymphocytes/100 leukocytes 4 % 12-44 Blood monocytes/100 leukocytes 1 % 0-12 Automated blood eosinophils/100 leukocytes 0 % 0-10 Automated blood basophils/100 leukocytes 0 % 0-10 Blood neutrophils automated count (number/volume) 7.1 10*3 1.8-7.8 Blood lymphocytes automated count (number/volume) 0.3 10*3 1.0-4.0 Blood monocytes automated count (number/volume) 0. 1 10*3 0.0-1.0 Automated eosinophil count 0.0 10*3/uL 0 .0-0.3 Automated blood basophil count (count/volume) 0.0 10*3/uL 0.0-0.1 Comprehensive metabolic panel - 12/20/19 04:00 Serum or plasma sodium measurement (moles/volume) 138 mmol/L 135-145 Serum or plasma potassium measurement (moles/volume) 5.3 mmol/L 3.6-5.0 Serum or plasma chloride measurement (moles/volume) 106 mmol/L 98-107 Carbon dioxide 22 mmol/L 21-32 Serum or plasma anion gap determination (moles/volume) 10 mmol/L 5-14 Serum or plasma urea nitrogen measurement (mass/volume ) 36 mg/dL 7-18 Serum or plasma creatinine measurement (mass/volume) 1.23 mg/dL 0.60-1.30 Serum or plasma urea nitrogen/creatinine mass ratio 29 NRG Serum or plasma creatinine measurement w ith calculation of estimated glomerular filtration rate 43 NRG Serum or plasma glucose measurement (mass/volume) 252 mg/dL 70-105 Serum or plasma calcium measurement (mass/volume) 8.5 mg/dL 8.5-10.1 Serum or plasma total bilirubin measurement (mass/volu me) 0.2 mg/dL 0.1-1.0 Serum or plasma alkaline phosphatase manny surement (enzymatic activity/volume) 94 U/L 40-136 Serum or plasma aspartate aminotransfera se measurement (enzymatic activity/volume) 45 U/L 5-34 Serum or plasma alanine aminotransferase measurement (enzymatic activity/volume) 17 U/L 0-55 Serum or plasma protein measurement (mass/volume) 6.3 g/dL 6.4-8.2 Serum or plasma albumin measurement (mass/volume) 3.2 g/dL 3.2-4.5 CALCIUM CORRECTED 9.1 mg/dL 8.5-10.1 Serum or plasma phosphate measurement (m ass/volume) - 12/20/19 04:00 Serum or plasma phosphate measurement (mass/volume) 5.1 mg/dL 2.3-4.7 Magnesium - 12/20/19 04:00 Magnesium 1.9 mg/dL 1.6-2.4 Manual absolute plasma cell count - 07/01 04:00 Blood monocytes/100 leukocytes 1 % NRG Manual blood segmented neutrophils/100 leukocytes 91 % NRG Blood band neutrophils/100 leukocytes 5 % NRG Manual blood lymphocytes/100 leukocytes 3 % NRG Blood erythrocyte morphology finding identification NORMAL NRG Serum or plasma lithium measurement (mol es/volume) - 12/20/19 04:00 BNP PT 102.8 pg/mL <100.0 Capillary blood glucose measurement by g lucometer (mass/volume) - 12/20/19 06:08 Capillary blood glucose measurement by glucometer (mas s/volume) 245 mg/dL 70-110 Capillary blood glucose measurement by g lucometer (mass/volume) - 12/20/19 12:06 Capillary blood glucose measurement by glucometer (mas s/volume) 282 mg/dL 70-110 Comprehensive metabolic panel - 12/20/19 12:45 Serum or plasma sodium measurement (moles/volume) 139 mmol/L 135-145 Serum or plasma potassium measurement (moles/volume) 4.3 mmol/L 3.6-5.0 Serum or plasma chloride measurement (moles/volume) 105 mmol/L 98-107 Carbon dioxide 23 mmol/L 21-32 Serum or plasma anion gap determination (moles/volume) 11 mmol/L 5-14 Serum or plasma urea nitrogen measurement (mass/volume ) 35 mg/dL 7-18 Serum or plasma creatinine measurement (mass/volume) 1.24 mg/dL 0.60-1.30 Serum or plasma urea nitrogen/creatinine mass ratio 28 NRG Serum or plasma creatinine measurement w ith calculation of estimated glomerular filtration rate 43 NRG Serum or plasma glucose measurement (mass/volume) 299 mg/dL 70-105 Serum or plasma calcium measurement (mass/volume) 9.0 mg/dL 8.5-10.1 Serum or plasma total bilirubin measurement (mass/volu me) 0.2 mg/dL 0.1-1.0 Serum or plasma alkaline phosphatase manny surement (enzymatic activity/volume) 94 U/L 40-136 Serum or plasma aspartate aminotransfera se measurement (enzymatic activity/volume) 41 U/L 5-34 Serum or plasma alanine aminotransferase measurement (enzymatic activity/volume) 18 U/L 0-55 Serum or plasma protein measurement (mass/volume) 6.8 g/dL 6.4-8.2 Serum or plasma albumin measurement (mass/volume) 3.4 g/dL 3.2-4.5 CALCIUM CORRECTED 9.5 mg/dL 8.5-10.1 Serum or plasma phosphate measurement (m ass/volume) - 12/20/19 12:45 Serum or plasma phosphate measurement (mass/volume) 4.4 mg/dL 2.3-4.7 Arterial blood gas measurement - 0 14:05 Blood pCO2 46 mm[Hg] 35-45 Blood pO2 69 mm[Hg] 79-93 Arterial blood bicarbonate measurement (moles/volume) 24 mmol/L 23-27 Arterial blood base excess by calculation -0.6 mmo l/L -2.5-2.5 Arterial blood oxygen saturation measurement 91 % 94-100 * Inhaled oxygen flow rate 20 NRG Arterial blood pH measurement with patient temperature correction 7.34 7.37-7.43 Arterial blood carbon dioxide, total measurement (mole s/volume) 25.8 mmol/L 21.0-31.0 Body site LT RAD NRG Assessment of wrist artery patency prior to arterial p uncture YES-POS NRG Setting of ventilation mode NO NR G Measurement of body temperature 36.8 NRG Capillary blood glucose measurement by g lucometer (mass/volume) - 12/20/19 15:39 Capillary blood glucose measurement by glucometer (mas s/volume) 279 mg/dL 70-110 Capillary blood glucose measurement by g lucometer (mass/volume) - 12/20/19 20:34 Capillary blood glucose measurement by glucometer (mas s/volume) 298 mg/dL 70-110 Complete blood count (CBC) with automate d white blood cell (WBC) differential - 12/21/19 02:46 Blood leukocytes automated count (number/volume) 7.3 10*3/uL 4.3-11.0 Blood erythrocytes automated count (number/volume) 3.28 10*6/uL 4.35-5.85 Venous blood hemoglobin measurement (mass/volume) 9.0 g/dL 11.5-16.0 Blood hematocrit (volume fraction) 28 % 35-52 Automated erythrocyte mean corpuscular volume 85 [ foz_us] 80-99 Automated erythrocyte mean corpuscular h emoglobin (mass per erythrocyte) 27 pg 25-34 Automated erythrocyte mean corpuscular h emoglobin concentration measurement (mass/volume) 32 g/dL 32-36 Automated erythrocyte distribution width ratio 14. 4 % 10.0- 14.5 Automated blood platelet count (count/volume) 238 10*3/uL 130-400 Automated blood platelet mean volume measurement 10.4 [foz_us] 7.4-10.4 Automated blood neutrophils/100 leukocytes 89 % 42-75 Automated blood lymphocytes/100 leukocytes 7 % 12-44 Blood monocytes/100 leukocytes 4 % 0-12 Automated blood eosinophils/100 leukocytes 0 % 0-10 Automated blood basophils/100 leukocytes 0 % 0-10 Blood neutrophils automated count (number/volume) 6.5 10*3 1.8-7.8 Blood lymphocytes automated count (number/volume) 0.5 10*3 1.0-4.0 Blood monocytes automated count (number/volume) 0. 3 10*3 0.0-1.0 Automated eosinophil count 0.0 10*3/uL 0 .0-0.3 Automated blood basophil count (count/volume) 0.0 10*3/uL 0.0-0.1 Whole blood basic metabolic panel - 02/0 9/20 02:46 Serum or plasma sodium measurement (moles/volume) 138 mmol/L 135-145 Serum or plasma potassium measurement (moles/volume) 4.4 mmol/L 3.6-5.0 Serum or plasma chloride measurement (moles/volume) 107 mmol/L 98-107 Carbon dioxide 23 mmol/L 21-32 Serum or plasma anion gap determination (moles/volume) 8 mmol/L 5-14 Serum or plasma urea nitrogen measurement (mass/volume ) 36 mg/dL 7-18 Serum or plasma creatinine measurement (mass/volume) 1.13 mg/dL 0.60-1.30 Serum or plasma urea nitrogen/creatinine mass ratio 32 NRG Serum or plasma creatinine measurement w ith calculation of estimated glomerular filtration rate 48 NRG Serum or plasma glucose measurement (mass/volume) 265 mg/dL 70-105 Serum or plasma calcium measurement (mass/volume) 8.6 mg/dL 8.5-10.1 Serum or plasma phosphate measurement (m ass/volume) - 12/21/19 02:46 Serum or plasma phosphate measurement (mass/volume) 3.4 mg/dL 2.3-4.7 Magnesium - 12/21/19 02:46 Magnesium 1.8 mg/dL 1.6-2.4 Serum or plasma lithium measurement (mol es/volume) - 12/21/19 02:46 BNP PT 211.4 pg/mL <100.0 Capillary blood glucose measurement by g lucometer (mass/volume) - 12/21/19 06:15 Capillary blood glucose measurement by glucometer (mas s/volume) 305 mg/dL 70-110 Arterial blood gas measurement - 0 08:57 Blood pCO2 43 mm[Hg] 35-45 Blood pO2 85 mm[Hg] 79-93 Arterial blood bicarbonate measurement (moles/volume) 27 mmol/L 23-27 Arterial blood base excess by calculation 2.3 mmol /L -2.5-2.5 Arterial blood oxygen saturation measurement 96 % 94-100 * Inhaled oxygen flow rate 4L HFNC NRG Arterial blood pH measurement with patient temperature correction 7.40 7.37-7.43 Arterial blood carbon dioxide, total measurement (mole s/volume) 28.0 mmol/L 21.0-31.0 Body site LT RADIAL NRG Assessment of wrist artery patency prior to arterial p uncture YES-POS NRG Setting of ventilation mode NO NR G Measurement of body temperature 36.5 NRG Complete blood count (CBC) with automate d white blood cell (WBC) differential - 01/17/20 08:52 Blood leukocytes automated count (number/volume) 18.1 10*3/uL 4.3-11.0 Blood erythrocytes automated count (number/volume) 4.84 10*6/uL 4.35-5.85 Venous blood hemoglobin measurement (mass/volume) 13.3 g/dL 11.5-16.0 Blood hematocrit (volume fraction) 41 % 35-52 Automated erythrocyte mean corpuscular volume 84 [ foz_us] 80-99 Automated erythrocyte mean corpuscular h emoglobin (mass per erythrocyte) 28 pg 25-34 Automated erythrocyte mean corpuscular h emoglobin concentration measurement (mass/volume) 33 g/dL 32-36 Automated erythrocyte distribution width ratio 14. 3 % 10.0- 14.5 Automated blood platelet count (count/volume) 364 10*3/uL 130-400 Automated blood platelet mean volume measurement 10.5 [foz_us] 7.4-10.4 Automated blood neutrophils/100 leukocytes 88 % 42-75 Automated blood lymphocytes/100 leukocytes 7 % 12-44 Blood monocytes/100 leukocytes 4 % 0-12 Automated blood eosinophils/100 leukocytes 0 % 0-10 Automated blood basophils/100 leukocytes 0 % 0-10 Blood neutrophils automated count (number/volume) 16.0 10*3 1.8-7.8 Blood lymphocytes automated count (number/volume) 1.3 10*3 1.0-4.0 Blood monocytes automated count (number/volume) 0. 8 10*3 0.0-1.0 Automated eosinophil count 0.0 10*3/uL 0 .0-0.3 Automated blood basophil count (count/volume) 0.0 10*3/uL 0.0-0.1 Blood lactic acid measurement (moles/vol ume) - 01/17/20 08:52 Blood lactic acid measurement (moles/volume) 0.60 mmol/L 0.50-2.00 Comprehensive metabolic panel - 01/17/20 08:52 Serum or plasma sodium measurement (moles/volume) 136 mmol/L 135-145 Serum or plasma potassium measurement (moles/volume) 4.5 mmol/L 3.6-5.0 Serum or plasma chloride measurement (moles/volume) 98 mmol/L 98-107 Carbon dioxide 26 mmol/L 21-32 Serum or plasma anion gap determination (moles/volume) 12 mmol/L 5-14 Serum or plasma urea nitrogen measurement (mass/volume ) 18 mg/dL 7-18 Serum or plasma creatinine measurement (mass/volume) 0.89 mg/dL 0.60-1.30 Serum or plasma urea nitrogen/creatinine mass ratio 20 NRG Serum or plasma creatinine measurement w ith calculation of estimated glomerular filtration rate > NRG Serum or plasma glucose measurement (mass/volume) 217 mg/dL 70-105 Serum or plasma calcium measurement (mass/volume) 9.3 mg/dL 8.5-10.1 Serum or plasma total bilirubin measurement (mass/volu me) 0.4 mg/dL 0.1-1.0 Serum or plasma alkaline phosphatase manny surement (enzymatic activity/volume) 132 U/L 40-136 Serum or plasma aspartate aminotransfera se measurement (enzymatic activity/volume) 15 U/L 5-34 Serum or plasma alanine aminotransferase measurement (enzymatic activity/volume) 7 U/L 0-55 Serum or plasma protein measurement (mass/volume) 7.1 g/dL 6.4-8.2 Serum or plasma albumin measurement (mass/volume) 4.0 g/dL 3.2-4.5 CALCIUM CORRECTED 9.3 mg/dL 8.5-10.1 Magnesium - 01/17/20 08:52 Magnesium 1.7 mg/dL 1.6-2.4 Lipase - 01/17/20 08:52 Lipase 56 U/L 8-78 Serum or plasma C reactive protein measu rement (mass/volume) - 01/17/20 08:52 Serum or plasma C reactive protein measurement (mass/v olume) 0.30 mg/dL 0.00-0.50 Manual absolute plasma cell count - 05/31 08:52 Blood monocytes/100 leukocytes 7 % NRG Manual blood segmented neutrophils/100 leukocytes 87 % NRG Blood band neutrophils/100 leukocytes 0 % NRG Manual blood lymphocytes/100 leukocytes 6 % NRG Manual eosinophils/100 leukocytes in nose 0 % NRG Manual blood basophils/100 leukocytes 0 % NRG Blood erythrocyte morphology finding identification NORMAL NRG Bacterial blood culture - 01/17/20 08:52 Bacterial blood culture NG NRG Complete urinalysis with reflex to cultu re - 01/17/20 09:05 Urine color determination AARON NRG Urine clarity determination CLEAR NR G Urine pH measurement by test strip 6.0 5-9 Specific gravity of urine by test strip >= 1.016-1.022 Urine protein assay by test strip, semi-quantitative 1+ NEGATIVE Urine glucose detection by automated test strip NE GATIVE NEGATIVE Erythrocytes detection in urine sediment by light micr oscopy NEGATIVE NEGATIVE Urine ketones detection by automated test strip NE GATIVE NEGATIVE Urine nitrite detection by test strip NEGATIVE NEGATIVE Urine total bilirubin detection by test strip 2+ NEGATIVE Urine urobilinogen measurement by automated test strip (mass/volume) 1.0 mg/dL < = 1.0 Urine leukocyte esterase detection by dipstick NEG ATIVE NEGATIVE Automated urine sediment erythrocyte cou nt by microscopy (number/high power field) RARE NRG Automated urine sediment leukocyte count by microscopy (number/high power field) RARE NRG Bacteria detection in urine sediment by light microsco py TRACE NRG Squamous epithelial cells detection in u rine sediment by light microscopy 5-10 NRG Crystals detection in urine sediment by light microsco py NONE NRG Casts detection in urine sediment by light microscopy PRESENT NRG Mucus detection in urine sediment by light microscopy MODERATE NRG Complete urinalysis with reflex to culture NO NRG Hyaline casts detection in urine sediment by light ryan roscopy 0-2 NRG Bacterial blood culture - 01/17/20 09:22 Bacterial blood culture NG NRG Capillary blood glucose measurement by g lucometer (mass/volume) - 01/17/20 12:20 Capillary blood glucose measurement by glucometer (mas s/volume) 199 mg/dL 70-110 Capillary blood glucose measurement by g lucometer (mass/volume) - 01/17/20 17:52 Capillary blood glucose measurement by glucometer (mas s/volume) 136 mg/dL 70-110 Capillary blood glucose measurement by g lucometer (mass/volume) - 01/17/20 23:53 Capillary blood glucose measurement by glucometer (mas s/volume) 166 mg/dL 70-110 Complete blood count (CBC) with automate d white blood cell (WBC) differential - 01/18/20 04:00 Blood leukocytes automated count (number/volume) 12.3 10*3/uL 4.3-11.0 Blood erythrocytes automated count (number/volume) 4.02 10*6/uL 4.35-5.85 Venous blood hemoglobin measurement (mass/volume) 11.0 g/dL 11.5-16.0 Blood hematocrit (volume fraction) 34 % 35-52 Automated erythrocyte mean corpuscular volume 85 [ foz_us] 80-99 Automated erythrocyte mean corpuscular h emoglobin (mass per erythrocyte) 27 pg 25-34 Automated erythrocyte mean corpuscular h emoglobin concentration measurement (mass/volume) 32 g/dL 32-36 Automated erythrocyte distribution width ratio 14. 2 % 10.0- 14.5 Automated blood platelet count (count/volume) 283 10*3/uL 130-400 Automated blood platelet mean volume measurement 10.2 [foz_us] 7.4-10.4 Automated blood neutrophils/100 leukocytes 79 % 42-75 Automated blood lymphocytes/100 leukocytes 14 % 12-44 Blood monocytes/100 leukocytes 7 % 0-12 Automated blood eosinophils/100 leukocytes 0 % 0-10 Automated blood basophils/100 leukocytes 0 % 0-10 Blood neutrophils automated count (number/volume) 9.7 10*3 1.8-7.8 Blood lymphocytes automated count (number/volume) 1.7 10*3 1.0-4.0 Blood monocytes automated count (number/volume) 0. 9 10*3 0.0-1.0 Automated eosinophil count 0.0 10*3/uL 0 .0-0.3 Automated blood basophil count (count/volume) 0.0 10*3/uL 0.0-0.1 Comprehensive metabolic panel - 01/18/20 04:00 Serum or plasma sodium measurement (moles/volume) 139 mmol/L 135-145 Serum or plasma potassium measurement (moles/volume) 3.6 mmol/L 3.6-5.0 Serum or plasma chloride measurement (moles/volume) 100 mmol/L 98-107 Carbon dioxide 29 mmol/L 21-32 Serum or plasma anion gap determination (moles/volume) 10 mmol/L 5-14 Serum or plasma urea nitrogen measurement (mass/volume ) 19 mg/dL 7-18 Serum or plasma creatinine measurement (mass/volume) 0.87 mg/dL 0.60-1.30 Serum or plasma urea nitrogen/creatinine mass ratio 22 NRG Serum or plasma creatinine measurement w ith calculation of estimated glomerular filtration rate > NRG Serum or plasma glucose measurement (mass/volume) 148 mg/dL 70-105 Serum or plasma calcium measurement (mass/volume) 8.4 mg/dL 8.5-10.1 Serum or plasma total bilirubin measurement (mass/volu me) 0.3 mg/dL 0.1-1.0 Serum or plasma alkaline phosphatase manny surement (enzymatic activity/volume) 96 U/L 40-136 Serum or plasma aspartate aminotransfera se measurement (enzymatic activity/volume) 15 U/L 5-34 Serum or plasma alanine aminotransferase measurement (enzymatic activity/volume) < U/L 0-55 Serum or plasma protein measurement (mass/volume) 5.9 g/dL 6.4-8.2 Serum or plasma albumin measurement (mass/volume) 3.3 g/dL 3.2-4.5 CALCIUM CORRECTED 9.0 mg/dL 8.5-10.1 Capillary blood glucose measurement by g lucometer (mass/volume) - 01/18/20 11:59 Capillary blood glucose measurement by glucometer (mas s/volume) 146 mg/dL 70-110 Capillary blood glucose measurement by g lucometer (mass/volume) - 01/18/20 17:53 Capillary blood glucose measurement by glucometer (mas s/volume) 133 mg/dL 70-110 Capillary blood glucose measurement by g lucometer (mass/volume) - 01/18/20 23:50 Capillary blood glucose measurement by glucometer (mas s/volume) 118 mg/dL 70-110 Capillary blood glucose measurement by g lucometer (mass/volume) - 01/19/20 05:49 Capillary blood glucose measurement by glucometer (mas s/volume) 110 mg/dL 70-110 Capillary blood glucose measurement by g lucometer (mass/volume) - 01/19/20 12:22 Capillary blood glucose measurement by glucometer (mas s/volume) 121 mg/dL 70-110 Capillary blood glucose measurement by g lucometer (mass/volume) - 01/19/20 17:23 Capillary blood glucose measurement by glucometer (mas s/volume) 181 mg/dL 70-110 Capillary blood glucose measurement by g lucometer (mass/volume) - 01/19/20 20:51 Capillary blood glucose measurement by glucometer (mas s/volume) 110 mg/dL 70-110 Automated blood complete blood count (he mogram) panel - 01/20/20 04:00 Blood leukocytes automated count (number/volume) 10.1 10*3/uL 4.3-11.0 Blood erythrocytes automated count (number/volume) 4.00 10*6/uL 4.35-5.85 Venous blood hemoglobin measurement (mass/volume) 10.8 g/dL 11.5-16.0 Blood hematocrit (volume fraction) 34 % 35-52 Automated erythrocyte mean corpuscular volume 85 [ foz_us] 80-99 Automated erythrocyte mean corpuscular h emoglobin (mass per erythrocyte) 27 pg 25-34 Automated erythrocyte mean corpuscular h emoglobin concentration measurement (mass/volume) 32 g/dL 32-36 Automated erythrocyte distribution width ratio 14. 0 % 10.0- 14.5 Automated blood platelet count (count/volume) 267 10*3/uL 130-400 Automated blood platelet mean volume measurement 10.1 [foz_us] 7.4-10.4 Whole blood basic metabolic panel - 01/10 04:00 Serum or plasma sodium measurement (moles/volume) 144 mmol/L 135-145 Serum or plasma potassium measurement (moles/volume) 2.8 mmol/L 3.6-5.0 Serum or plasma chloride measurement (moles/volume) 91 mmol/L 98-107 Carbon dioxide 39 mmol/L 21-32 Serum or plasma anion gap determination (moles/volume) 14 mmol/L 5-14 Serum or plasma urea nitrogen measurement (mass/volume ) 20 mg/dL 7-18 Serum or plasma creatinine measurement (mass/volume) 0.86 mg/dL 0.60-1.30 Serum or plasma urea nitrogen/creatinine mass ratio 23 NRG Serum or plasma creatinine measurement w ith calculation of estimated glomerular filtration rate > NRG Serum or plasma glucose measurement (mass/volume) 126 mg/dL 70-105 Serum or plasma calcium measurement (mass/volume) 8.7 mg/dL 8.5-10.1 Capillary blood glucose measurement by g lucometer (mass/volume) - 01/20/20 10:44 Capillary blood glucose measurement by glucometer (mas s/volume) 129 mg/dL 70-110 Capillary blood glucose measurement by g lucometer (mass/volume) - 01/20/20 15:49 Capillary blood glucose measurement by glucometer (mas s/volume) 169 mg/dL 70-110 Capillary blood glucose measurement by g lucometer (mass/volume) - 01/20/20 20:34 Capillary blood glucose measurement by glucometer (mas s/volume) 182 mg/dL 70-110 Automated blood complete blood count (he mogram) panel - 01/21/20 04:34 Blood leukocytes automated count (number/volume) 10.4 10*3/uL 4.3-11.0 Blood erythrocytes automated count (number/volume) 3.64 10*6/uL 4.35-5.85 Venous blood hemoglobin measurement (mass/volume) 9.8 g/dL 11.5-16.0 Blood hematocrit (volume fraction) 32 % 35-52 Automated erythrocyte mean corpuscular volume 87 [ foz_us] 80-99 Automated erythrocyte mean corpuscular h emoglobin (mass per erythrocyte) 27 pg 25-34 Automated erythrocyte mean corpuscular h emoglobin concentration measurement (mass/volume) 31 g/dL 32-36 Automated erythrocyte distribution width ratio 13. 5 % 10.0- 14.5 Automated blood platelet count (count/volume) 205 10*3/uL 130-400 Automated blood platelet mean volume measurement 10.5 [foz_us] 7.4-10.4 Comprehensive metabolic panel - 01/21/20 04:34 Serum or plasma sodium measurement (moles/volume) 139 mmol/L 135-145 Serum or plasma potassium measurement (moles/volume) 3.3 mmol/L 3.6-5.0 Serum or plasma chloride measurement (moles/volume) 99 mmol/L 98-107 Carbon dioxide 25 mmol/L 21-32 Serum or plasma anion gap determination (moles/volume) 15 mmol/L 5-14 Serum or plasma urea nitrogen measurement (mass/volume ) 12 mg/dL 7-18 Serum or plasma creatinine measurement (mass/volume) 0.63 mg/dL 0.60-1.30 Serum or plasma urea nitrogen/creatinine mass ratio 19 NRG Serum or plasma creatinine measurement w ith calculation of estimated glomerular filtration rate > NRG Serum or plasma glucose measurement (mass/volume) 68 mg/dL 70-105 Serum or plasma calcium measurement (mass/volume) 7.3 mg/dL 8.5-10.1 Serum or plasma total bilirubin measurement (mass/volu me) 0.2 mg/dL 0.1-1.0 Serum or plasma alkaline phosphatase manny surement (enzymatic activity/volume) 53 U/L 40-136 Serum or plasma aspartate aminotransfera se measurement (enzymatic activity/volume) 9 U/L 5-34 Serum or plasma alanine aminotransferase measurement (enzymatic activity/volume) < U/L 0-55 Serum or plasma protein measurement (mass/volume) 3.4 g/dL 6.4-8.2 Serum or plasma albumin measurement (mass/volume) 2.2 g/dL 3.2-4.5 CALCIUM CORRECTED 8.7 mg/dL 8.5-10.1 Magnesium - 01/21/20 04:34 Magnesium 1.1 mg/dL 1.6-2.4 Influenza virus A and B antigen detectio n - 01/21/20 08:30 FLU RESULT NEGATIVE FOR INFLUENZA A AND B ANTIGENS BY IA NR Capillary blood glucose measurement by g lucometer (mass/volume) - 01/21/20 11:17 Capillary blood glucose measurement by glucometer (mas s/volume) 151 mg/dL 70-110 Capillary blood glucose measurement by g lucometer (mass/volume) - 01/21/20 15:51 Capillary blood glucose measurement by glucometer (mas s/volume) 144 mg/dL 70-110 Capillary blood glucose measurement by g lucometer (mass/volume) - 01/21/20 19:40 Capillary blood glucose measurement by glucometer (mas s/volume) 134 mg/dL 70-110 Automated blood complete blood count (he mogram) panel - 01/22/20 05:21 Blood leukocytes automated count (number/volume) 20.1 10*3/uL 4.3-11.0 Blood erythrocytes automated count (number/volume) 3.80 10*6/uL 4.35-5.85 Venous blood hemoglobin measurement (mass/volume) 10.5 g/dL 11.5-16.0 Blood hematocrit (volume fraction) 33 % 35-52 Automated erythrocyte mean corpuscular volume 88 [ foz_us] 80-99 Automated erythrocyte mean corpuscular h emoglobin (mass per erythrocyte) 28 pg 25-34 Automated erythrocyte mean corpuscular h emoglobin concentration measurement (mass/volume) 32 g/dL 32-36 Automated erythrocyte distribution width ratio 14. 3 % 10.0- 14.5 Automated blood platelet count (count/volume) 227 10*3/uL 130-400 Automated blood platelet mean volume measurement 10.4 [foz_us] 7.4-10.4 Comprehensive metabolic panel - 01/22/20 05:21 Serum or plasma sodium measurement (moles/volume) 144 mmol/L 135-145 Serum or plasma potassium measurement (moles/volume) 2.8 mmol/L 3.6-5.0 Serum or plasma chloride measurement (moles/volume) 91 mmol/L 98-107 Carbon dioxide 42 mmol/L 21-32 Serum or plasma anion gap determination (moles/volume) 11 mmol/L 5-14 Serum or plasma urea nitrogen measurement (mass/volume ) 18 mg/dL 7-18 Serum or plasma creatinine measurement (mass/volume) 1.02 mg/dL 0.60-1.30 Serum or plasma urea nitrogen/creatinine mass ratio 18 NRG Serum or plasma creatinine measurement w ith calculation of estimated glomerular filtration rate 54 NRG Serum or plasma glucose measurement (mass/volume) 137 mg/dL 70-105 Serum or plasma calcium measurement (mass/volume) 8.5 mg/dL 8.5-10.1 Serum or plasma total bilirubin measurement (mass/volu me) 0.4 mg/dL 0.1-1.0 Serum or plasma alkaline phosphatase manny surement (enzymatic activity/volume) 73 U/L 40-136 Serum or plasma aspartate aminotransfera se measurement (enzymatic activity/volume) 12 U/L 5-34 Serum or plasma alanine aminotransferase measurement (enzymatic activity/volume) 7 U/L 0-55 Serum or plasma protein measurement (mass/volume) 5.7 g/dL 6.4-8.2 Serum or plasma albumin measurement (mass/volume) 3.3 g/dL 3.2-4.5 CALCIUM CORRECTED 9.1 mg/dL 8.5-10.1 Magnesium - 01/22/20 05:21 Magnesium 2.0 mg/dL 1.6-2.4 PROCALCITONIN (PCT) - 01/22/20 05:21 PROCALCITONIN (PCT) 0.11 ng/mL <0.10 Capillary blood glucose measurement by g lucometer (mass/volume) - 01/22/20 06:12 Capillary blood glucose measurement by glucometer (mas s/volume) 170 mg/dL 70-110 Blood lactic acid measurement (moles/vol ume) - 01/22/20 08:40 Blood lactic acid measurement (moles/volume) 0.62 mmol/L 0.50-2.00 Bacterial blood culture - 01/22/20 08:40 Bacterial blood culture NG NRG Sputum Gram stain - 01/22/20 11:17 Sputum Gram stain MIXED BACTERIAL DELGADO NRG Bacterial sputum culture - 01/22/20 11:1 7 QUANTITY OF GROWTH . NRG Bacterial sputum culture USUAL RESP NRG Capillary blood glucose measurement by g lucometer (mass/volume) - 01/22/20 11:40 Capillary blood glucose measurement by glucometer (mas s/volume) 220 mg/dL 70-110 Bacterial blood culture - 01/22/20 12:20 Bacterial blood culture NG NRG Capillary blood glucose measurement by g lucometer (mass/volume) - 01/22/20 16:23 Capillary blood glucose measurement by glucometer (mas s/volume) 218 mg/dL 70-110 Capillary blood glucose measurement by g lucometer (mass/volume) - 01/22/20 21:29 Capillary blood glucose measurement by glucometer (mas s/volume) 153 mg/dL 70-110 Automated blood complete blood count (he mogram) panel - 01/23/20 04:50 Blood leukocytes automated count (number/volume) 12.0 10*3/uL 4.3-11.0 Blood erythrocytes automated count (number/volume) 3.11 10*6/uL 4.35-5.85 Venous blood hemoglobin measurement (mass/volume) 8.5 g/dL 11.5-16.0 Blood hematocrit (volume fraction) 28 % 35-52 Automated erythrocyte mean corpuscular volume 89 [ foz_us] 80-99 Automated erythrocyte mean corpuscular h emoglobin (mass per erythrocyte) 27 pg 25-34 Automated erythrocyte mean corpuscular h emoglobin concentration measurement (mass/volume) 31 g/dL 32-36 Automated erythrocyte distribution width ratio 14. 4 % 10.0- 14.5 Automated blood platelet count (count/volume) 186 10*3/uL 130-400 Automated blood platelet mean volume measurement 10.0 [foz_us] 7.4-10.4 Whole blood basic metabolic panel - 01/10 01/29 04:50 Serum or plasma sodium measurement (moles/volume) 144 mmol/L 135-145 Serum or plasma chloride measurement (moles/volume) 95 mmol/L 98-107 Carbon dioxide 32 mmol/L 21-32 Serum or plasma anion gap determination (moles/volume) 17 mmol/L 5-14 Serum or plasma urea nitrogen measurement (mass/volume ) 17 mg/dL 7-18 Serum or plasma creatinine measurement (mass/volume) 0.87 mg/dL 0.60-1.30 Serum or plasma urea nitrogen/creatinine mass ratio 20 NRG Serum or plasma creatinine measurement w ith calculation of estimated glomerular filtration rate > NRG Serum or plasma glucose measurement (mass/volume) 104 mg/dL 70-105 Magnesium - 01/23/20 04:50 Magnesium 1.8 mg/dL 1.6-2.4 Capillary blood glucose measurement by g lucometer (mass/volume) - 01/23/20 05:39 Capillary blood glucose measurement by glucometer (mas s/volume) 119 mg/dL 70-110 Whole blood basic metabolic panel - 01/10 01/29 06:35 Serum or plasma sodium measurement (moles/volume) 145 mmol/L 135-145 Serum or plasma potassium measurement (moles/volume) 2.9 mmol/L 3.6-5.0 Serum or plasma chloride measurement (moles/volume) 97 mmol/L 98-107 Carbon dioxide 38 mmol/L 21-32 Serum or plasma anion gap determination (moles/volume) 10 mmol/L 5-14 Serum or plasma urea nitrogen measurement (mass/volume ) 18 mg/dL 7-18 Serum or plasma creatinine measurement (mass/volume) 1.00 mg/dL 0.60-1.30 Serum or plasma urea nitrogen/creatinine mass ratio 18 NRG Serum or plasma creatinine measurement w ith calculation of estimated glomerular filtration rate 55 NRG Serum or plasma glucose measurement (mass/volume) 113 mg/dL 70-105 Serum or plasma calcium measurement (mass/volume) 7.7 mg/dL 8.5-10.1 Magnesium - 01/23/20 06:35 Magnesium 2.0 mg/dL 1.6-2.4 Capillary blood glucose measurement by g lucometer (mass/volume) - 01/23/20 11:44 Capillary blood glucose measurement by glucometer (mas s/volume) 145 mg/dL 70-110 Magnesium - 01/23/20 14:58 Magnesium 2.0 mg/dL 1.6-2.4 Capillary blood glucose measurement by g lucometer (mass/volume) - 01/23/20 15:43 Capillary blood glucose measurement by glucometer (mas s/volume) 199 mg/dL 70-110 Capillary blood glucose measurement by g lucometer (mass/volume) - 01/23/20 20:48 Capillary blood glucose measurement by glucometer (mas s/volume) 156 mg/dL 70-110 Complete blood count (CBC) with automate d white blood cell (WBC) differential - 01/24/20 04:53 Blood leukocytes automated count (number/volume) 13.4 10*3/uL 4.3-11.0 Blood erythrocytes automated count (number/volume) 3.29 10*6/uL 4.35-5.85 Venous blood hemoglobin measurement (mass/volume) 9.0 g/dL 11.5-16.0 Blood hematocrit (volume fraction) 30 % 35-52 Automated erythrocyte mean corpuscular volume 90 [ foz_us] 80-99 Automated erythrocyte mean corpuscular h emoglobin (mass per erythrocyte) 27 pg 25-34 Automated erythrocyte mean corpuscular h emoglobin concentration measurement (mass/volume) 31 g/dL 32-36 Automated erythrocyte distribution width ratio 13. 9 % 10.0- 14.5 Automated blood platelet count (count/volume) 207 10*3/uL 130-400 Automated blood platelet mean volume measurement 10.4 [foz_us] 7.4-10.4 Automated blood neutrophils/100 leukocytes 84 % 42-75 Automated blood lymphocytes/100 leukocytes 7 % 12-44 Blood monocytes/100 leukocytes 6 % 0-12 Automated blood eosinophils/100 leukocytes 3 % 0-10 Automated blood basophils/100 leukocytes 0 % 0-10 Blood neutrophils automated count (number/volume) 11.3 10*3 1.8-7.8 Blood lymphocytes automated count (number/volume) 1.0 10*3 1.0-4.0 Blood monocytes automated count (number/volume) 0. 8 10*3 0.0-1.0 Automated eosinophil count 0.4 10*3/uL 0 .0-0.3 Automated blood basophil count (count/volume) 0.0 10*3/uL 0.0-0.1 Whole blood basic metabolic panel - 01/10 03/01 04:53 Serum or plasma sodium measurement (moles/volume) 143 mmol/L 135-145 Serum or plasma potassium measurement (moles/volume) 3.6 mmol/L 3.6-5.0 Serum or plasma chloride measurement (moles/volume) 104 mmol/L 98-107 Carbon dioxide 32 mmol/L 21-32 Serum or plasma anion gap determination (moles/volume) 7 mmol/L 5-14 Serum or plasma urea nitrogen measurement (mass/volume ) 11 mg/dL 7-18 Serum or plasma creatinine measurement (mass/volume) 0.84 mg/dL 0.60-1.30 Serum or plasma urea nitrogen/creatinine mass ratio 13 NRG Serum or plasma creatinine measurement w ith calculation of estimated glomerular filtration rate > NRG Serum or plasma glucose measurement (mass/volume) 145 mg/dL 70-105 Serum or plasma calcium measurement (mass/volume) 7.8 mg/dL 8.5-10.1 Manual absolute plasma cell count - 01/10 03/01 04:53 Blood monocytes/100 leukocytes 4 % NRG Manual blood segmented neutrophils/100 leukocytes 87 % NRG Blood band neutrophils/100 leukocytes 0 % NRG Manual blood lymphocytes/100 leukocytes 5 % NRG Manual eosinophils/100 leukocytes in nose 4 % NRG Manual blood basophils/100 leukocytes 0 % NRG Blood polychromasia detection by light microscopy SLIGHT NRG Blood anisocytosis detection by light microscopy S LIGHT NRG Blood rouleaux detection by light microscopy SLIGH T NRG Capillary blood glucose measurement by g lucometer (mass/volume) - 01/24/20 15:46 Capillary blood glucose measurement by glucometer (mas s/volume) 173 mg/dL 70-110 Capillary blood glucose measurement by g lucometer (mass/volume) - 01/24/20 20:22 Capillary blood glucose measurement by glucometer (mas s/volume) 219 mg/dL 70-110 Complete blood count (CBC) with automate d white blood cell (WBC) differential - 01/25/20 05:30 Blood leukocytes automated count (number/volume) 8.7 10*3/uL 4.3-11.0 Blood erythrocytes automated count (number/volume) 2.93 10*6/uL 4.35-5.85 Venous blood hemoglobin measurement (mass/volume) 8.0 g/dL 11.5-16.0 Blood hematocrit (volume fraction) 26 % 35-52 Automated erythrocyte mean corpuscular volume 90 [ foz_us] 80-99 Automated erythrocyte mean corpuscular h emoglobin (mass per erythrocyte) 27 pg 25-34 Automated erythrocyte mean corpuscular h emoglobin concentration measurement (mass/volume) 30 g/dL 32-36 Automated erythrocyte distribution width ratio 14. 0 % 10.0- 14.5 Automated blood platelet count (count/volume) 224 10*3/uL 130-400 Automated blood platelet mean volume measurement 10.5 [foz_us] 7.4-10.4 Automated blood neutrophils/100 leukocytes 67 % 42-75 Automated blood lymphocytes/100 leukocytes 20 % 12-44 Blood monocytes/100 leukocytes 9 % 0-12 Automated blood eosinophils/100 leukocytes 4 % 0-10 Automated blood basophils/100 leukocytes 0 % 0-10 Blood neutrophils automated count (number/volume) 5.8 10*3 1.8-7.8 Blood lymphocytes automated count (number/volume) 1.8 10*3 1.0-4.0 Blood monocytes automated count (number/volume) 0. 8 10*3 0.0-1.0 Automated eosinophil count 0.4 10*3/uL 0 .0-0.3 Automated blood basophil count (count/volume) 0.0 10*3/uL 0.0-0.1 Comprehensive metabolic panel - 01/25/20 05:30 Serum or plasma sodium measurement (moles/volume) 139 mmol/L 135-145 Serum or plasma potassium measurement (moles/volume) 3.5 mmol/L 3.6-5.0 Serum or plasma chloride measurement (moles/volume) 103 mmol/L 98-107 Carbon dioxide 29 mmol/L 21-32 Serum or plasma anion gap determination (moles/volume) 7 mmol/L 5-14 Serum or plasma urea nitrogen measurement (mass/volume ) 9 mg/dL 7-18 Serum or plasma creatinine measurement (mass/volume) 0.73 mg/dL 0.60-1.30 Serum or plasma urea nitrogen/creatinine mass ratio 12 NRG Serum or plasma creatinine measurement w ith calculation of estimated glomerular filtration rate > NRG Serum or plasma glucose measurement (mass/volume) 109 mg/dL 70-105 Serum or plasma calcium measurement (mass/volume) 7.5 mg/dL 8.5-10.1 Serum or plasma total bilirubin measurement (mass/volu me) 0.2 mg/dL 0.1-1.0 Serum or plasma alkaline phosphatase manny surement (enzymatic activity/volume) 58 U/L 40-136 Serum or plasma aspartate aminotransfera se measurement (enzymatic activity/volume) 8 U/L 5-34 Serum or plasma alanine aminotransferase measurement (enzymatic activity/volume) 6 U/L 0-55 Serum or plasma protein measurement (mass/volume) 5.1 g/dL 6.4-8.2 Serum or plasma albumin measurement (mass/volume) 2.8 g/dL 3.2-4.5 CALCIUM CORRECTED 8.5 mg/dL 8.5-10.1 Capillary blood glucose measurement by g lucometer (mass/volume) - 01/25/20 05:32 Capillary blood glucose measurement by glucometer (mas s/volume) 108 mg/dL 70-110 Capillary blood glucose measurement by g lucometer (mass/volume) - 01/25/20 10:44 Capillary blood glucose measurement by glucometer (mas s/volume) 206 mg/dL 70-110 Capillary blood glucose measurement by g lucometer (mass/volume) - 01/25/20 13:59 Capillary blood glucose measurement by glucometer (mas s/volume) 150 mg/dL 70-110 Capillary blood glucose measurement by g lucometer (mass/volume) - 01/26/20 16:02 Capillary blood glucose measurement by glucometer (mas s/volume) 140 mg/dL 70-110 Capillary blood glucose measurement by g lucometer (mass/volume) - 01/26/20 20:04 Capillary blood glucose measurement by glucometer (mas s/volume) 214 mg/dL 70-110 Capillary blood glucose measurement by g lucometer (mass/volume) - 01/27/20 05:58 Capillary blood glucose measurement by glucometer (mas s/volume) 181 mg/dL 70-110 Capillary blood glucose measurement by g lucometer (mass/volume) - 01/27/20 11:00 Capillary blood glucose measurement by glucometer (mas s/volume) 185 mg/dL 70-110 Capillary blood glucose measurement by g lucometer (mass/volume) - 01/27/20 15:20 Capillary blood glucose measurement by glucometer (mas s/volume) 163 mg/dL 70-110 Capillary blood glucose measurement by g lucometer (mass/volume) - 01/27/20 20:08 Capillary blood glucose measurement by glucometer (mas s/volume) 205 mg/dL 70-110 Capillary blood glucose measurement by g lucometer (mass/volume) - 01/28/20 04:57 Capillary blood glucose measurement by glucometer (mas s/volume) 155 mg/dL 70-110 Capillary blood glucose measurement by g lucometer (mass/volume) - 01/28/20 10:47 Capillary blood glucose measurement by glucometer (mas s/volume) 167 mg/dL 70-110 Capillary blood glucose measurement by g lucometer (mass/volume) - 01/28/20 15:38 Capillary blood glucose measurement by glucometer (mas s/volume) 219 mg/dL 70-110 Capillary blood glucose measurement by g lucometer (mass/volume) - 01/28/20 21:00 Capillary blood glucose measurement by glucometer (mas s/volume) 200 mg/dL 70-110 Capillary blood glucose measurement by g lucometer (mass/volume) - 01/29/20 05:39 Capillary blood glucose measurement by glucometer (mas s/volume) 132 mg/dL 70-110 Capillary blood glucose measurement by g lucometer (mass/volume) - 01/29/20 10:52 Capillary blood glucose measurement by glucometer (mas s/volume) 189 mg/dL 70-110 Capillary blood glucose measurement by g lucometer (mass/volume) - 01/29/20 16:01 Capillary blood glucose measurement by glucometer (mas s/volume) 163 mg/dL 70-110 Capillary blood glucose measurement by g lucometer (mass/volume) - 01/29/20 21:11 Capillary blood glucose measurement by glucometer (mas s/volume) 267 mg/dL 70-110 Capillary blood glucose measurement by g lucometer (mass/volume) - 01/30/20 05:48 Capillary blood glucose measurement by glucometer (mas s/volume) 138 mg/dL 70-110 Capillary blood glucose measurement by g lucometer (mass/volume) - 01/30/20 10:53 Capillary blood glucose measurement by glucometer (mas s/volume) 206 mg/dL 70-110 Complete blood count (CBC) with automate d white blood cell (WBC) differential - 02/03/20 13:10 Blood leukocytes automated count (number/volume) 18.1 10*3/uL 4.3-11.0 Blood erythrocytes automated count (number/volume) 3.35 10*6/uL 4.35-5.85 Venous blood hemoglobin measurement (mass/volume) 9.1 g/dL 11.5-16.0 Blood hematocrit (volume fraction) 30 % 35-52 Automated erythrocyte mean corpuscular volume 88 [ foz_us] 80-99 Automated erythrocyte mean corpuscular h emoglobin (mass per erythrocyte) 27 pg 25-34 Automated erythrocyte mean corpuscular h emoglobin concentration measurement (mass/volume) 31 g/dL 32-36 Automated erythrocyte distribution width ratio 15. 4 % 10.0- 14.5 Automated blood platelet count (count/volume) 336 10*3/uL 130-400 Automated blood platelet mean volume measurement 9.8 [foz_us] 7.4-10.4 Automated blood neutrophils/100 leukocytes 81 % 42-75 Automated blood lymphocytes/100 leukocytes 12 % 12-44 Blood monocytes/100 leukocytes 6 % 0-12 Automated blood eosinophils/100 leukocytes 1 % 0-10 Automated blood basophils/100 leukocytes 0 % 0-10 Blood neutrophils automated count (number/volume) 14.7 10*3 1.8-7.8 Blood lymphocytes automated count (number/volume) 2.2 10*3 1.0-4.0 Blood monocytes automated count (number/volume) 1. 0 10*3 0.0-1.0 Automated eosinophil count 0.1 10*3/uL 0 .0-0.3 Automated blood basophil count (count/volume) 0.0 10*3/uL 0.0-0.1 Blood lactic acid measurement (moles/vol ume) - 02/03/20 13:10 Blood lactic acid measurement (moles/volume) 1.03 mmol/L 0.50-2.00 Comprehensive metabolic panel - 02/03/20 13:10 Serum or plasma sodium measurement (moles/volume) 136 mmol/L 135-145 Serum or plasma potassium measurement (moles/volume) 6.7 mmol/L 3.6-5.0 Serum or plasma chloride measurement (moles/volume) 104 mmol/L 98-107 Carbon dioxide 21 mmol/L 21-32 Serum or plasma anion gap determination (moles/volume) 11 mmol/L 5-14 Serum or plasma urea nitrogen measurement (mass/volume ) 51 mg/dL 7-18 Serum or plasma creatinine measurement (mass/volume) 4.14 mg/dL 0.60-1.30 Serum or plasma urea nitrogen/creatinine mass ratio 12 NRG Serum or plasma creatinine measurement w ith calculation of estimated glomerular filtration rate 11 NRG Serum or plasma glucose measurement (mass/volume) 116 mg/dL 70-105 Serum or plasma calcium measurement (mass/volume) 8.1 mg/dL 8.5-10.1 Serum or plasma total bilirubin measurement (mass/volu me) 0.2 mg/dL 0.1-1.0 Serum or plasma alkaline phosphatase manny surement (enzymatic activity/volume) 71 U/L 40-136 Serum or plasma aspartate aminotransfera se measurement (enzymatic activity/volume) 13 U/L 5-34 Serum or plasma alanine aminotransferase measurement (enzymatic activity/volume) 10 U/L 0-55 Serum or plasma protein measurement (mass/volume) 6.4 g/dL 6.4-8.2 Serum or plasma albumin measurement (mass/volume) 3.5 g/dL 3.2-4.5 CALCIUM CORRECTED 8.5 mg/dL 8.5-10.1 Manual absolute plasma cell count - 01/11 03/01 13:10 Blood monocytes/100 leukocytes 6 % NRG Manual blood segmented neutrophils/100 leukocytes 78 % NRG Blood band neutrophils/100 leukocytes 1 % NRG Manual blood lymphocytes/100 leukocytes 14 % NRG Manual eosinophils/100 leukocytes in nose 1 % NRG Manual blood basophils/100 leukocytes 0 % NRG Blood anisocytosis detection by light microscopy S LIGHT NRG Blood hypochromia detection by light microscopy SL IGHT NRG Serum or plasma troponin i.cardiac measu rement (mass/volume) - 02/03/20 13:10 Serum or plasma troponin i.cardiac measurement (mass/v olume) < ng/mL <0.028 Serum or plasma lithium measurement (mol es/volume) - 02/03/20 13:10 BNP PT 26.7 pg/mL <100.0 Arterial blood gas measurement - 0 13:13 Blood pCO2 71 mm[Hg] 35-45 Blood pO2 41 mm[Hg] 79-93 Arterial blood bicarbonate measurement (moles/volume) 24 mmol/L 23-27 Arterial blood base excess by calculation -3.9 mmo l/L -2.5-2.5 Arterial blood oxygen saturation measurement 33 % 94-100 * Inhaled oxygen flow rate UNK NRG Arterial blood pH measurement with patient temperature correction 7.15 7.37-7.43 Arterial blood carbon dioxide, total measurement (mole s/volume) 26.1 mmol/L 21.0-31.0 Body site UNK NRG Assessment of wrist artery patency prior to arterial p uncture UNK NRG Setting of ventilation mode NA NR G Measurement of body temperature 36.8 NRG Capillary blood glucose measurement by g lucometer (mass/volume) - 02/03/20 13:50 Capillary blood glucose measurement by glucometer (mas s/volume) 107 mg/dL 70-110 Encounters ACCT No. Visit Date/Time Discharge Status Pt. Type Provider Facility Loc./Unit Complaint [id number] 01/24/2020 11:12:00 11:30:00 DIS Inpatient RANDAL QIU DO, [facility] IRF COPD MYOPATHY [id number] 01/17/2020 10:08:00 23:59:59 CLS Inpatient LUKAS NUNES MD [facility] 4TH SMALL BOWEL OBSTRUCTION [id number] 12/19/2019 19:35:00 11:45:00 DIS Inpatient LUKAS NUNES MD [facility] ICU COPD EXACERBATION,RESP FAILURE W/ HYPOXIA AND HYPE [id number] 12/10/2019 10:23:00 15:30:00 DIS Outpatient RAY MACKEY MD [facility] SDC RIGHT CARPAL/CUBITAL T UNNEL SYNDROME [id number] 12/08/2019 08:40:00 10:00:00 DIS Outpatient RAY MACKEY MD [facility] PREOP RIGHT CARPAL/CUBITAL T UNNEL SYNDROME [id number] 11/03/2019 07:54:00 23:59:59 CLS Outpatient SARAH ROBERTSON [facility] RAD CERVICAL SPINAL STENOS IS [id number] 10/24/2019 14:18:00 12:05:00 DIS Inpatient LUKAS NUNES MD [facility] ICU PNEUMONIA;HYPOXIA;AMS [id number] 09/04/2019 00:13:00 23:59:59 CLS Preadmit YOLI VILLALPANDO RUDOLPH Mandi [facility] FLUSH PORT MONTHLY PRN [id number] 08/01/2019 11:58:00 00:01:00 DIS Outpatient KENT DO, RUDOLPH Mandi [facility] FLUSH [place] [facility] PRN [id number] 06/25/2019 07:27:00 10:35:00 DIS Outpatient QING TAO DO [facility] ENDO ENDOBRONCHIAL MASS [id number] 06/23/2019 09:57:00 23:59:59 CLS Outpatient LUKASZ CROWLEY APRN [facility] RT OXYGEN DEPENDEN T, TOBACCO USE [id number] 05/08/2019 13:08:00 00:01:00 DIS Outpatient RUDOLPH KENT DO [facility] FLUSH [place] [facility] PRN [id number] 05/06/2019 13:02:00 23:59:59 CLS Outpatient LUKASZ CROWLEY APRN [facility] RAD MARIJUANA ABUSE ,OXYGEN DEPENDENT,TOBACCO USE [id number] 05/01/2019 14:35:00 23:59:59 CLS Preadmit RUDOLPH KENT DO [facility] RAD SCREENING [id number] 03/19/2019 06:49:00 13:05:00 DIS Outpatient JUAN LICONA MD [facility] CATH ABN STRESS TEST [id number] 03/12/2019 07:41:00 23:59:59 CLS Outpatient JUAN LICONA MD [facility] CARD CHEST PAIN SYNDROME,CLA UDICATION [id number] 03/10/2019 13:35:00 23:59:59 CLS Outpatient JUAN LICONA MD [facility] CARD CHEST PAIN SYNDROME,CLA UDICATION [id number] 01/17/2019 12:03:00 00:01:00 DIS Outpatient RUDOLPH KENT DO [facility] FLUSH PORT [facility] PRN [id number] 10/10/2018 11:03:00 23:59:59 CLS Outpatient RUDOLPH KENT DO [facility] RAD TRAUMA [id number] 10/08/2018 11:25:00 15:15:00 DIS Outpatient MELISA DOHERTY MD [facility] POOR PERIPHERAL VENOUS CIRCULATION [id number] 10/07/2018 05:48:00 12:44:00 DIS Outpatient MELISA DOHERTY MD [facility] PREOP POOR PERIPHERAL VENOUS CIRCULATION [id number] 09/19/2018 07:44:00 22:40:00 DIS Outpatient MELISA DOHERTY MD [facility] MALFUNCTIONING PORT [id number] 09/16/2018 05:33:00 12:07:00 DIS Outpatient MELISA DOHERTY MD [facility] PREOP PLACEMENT OF GROS[place]ONG P ORT [id number] 09/09/2018 10:37:00 23:59:59 CLS Outpatient RUDOLPH KENT DO [facility] RAD SCIATICA LT LOW ER ETREMITY [id number] 09/04/2018 13:20:00 13:20:00 [facility] [id number] 08/16/2018 13:12:00 23:59:59 SHAUN Outpatient RUDOLPH KENT DO [facility] RAD MIGRANES [id number] 07/09/2018 13:08:00 00:01:00 DIS [facility] [id number] 05/16/2018 13:00:00 00:01:00 DIS Outpatient RUDOLPH KENT DO [facility] PORT [id number] 04/02/2018 12:02:00 018 23:59:59 CLS Outpatient RUDOLPH KENT DO [facility] RAD SEE ORDER [id number] 03/25/2018 09:35:00 018 23:59:59 CLS Outpatient RAY COLBY MD [facility] WOUNDCARE [id number] 11/09/2017 12:05:00 018 00:01:00 DIS Outpatient RUDOLPH KENT DO [facility] PORT [id number] 11/15/2017 09:01:00 018 23:59:59 CLS Outpatient RUDOLPH KENT DO [facility] RAD MENOPAUSE [id number] 10/18/2017 09:35:00 017 23:59:59 CLS Outpatient RUDOLPH KENT DO [facility] RAD SCREENING [id number] 08/20/2017 12:10:00 017 23:59:59 CLS Preadmit RUDOLPH KENT DO [facility] RAD SCREENING [id number] 08/03/2017 12:02:00 017 00:01:00 DIS Outpatient RUDOLPH KENT DO [facility] PORT [id number] 07/21/2017 10:37:00 017 23:59:59 CLS Outpatient RUDOLPH KENT DO [facility] RAD TRAUMA,KNEE [id number] 05/08/2017 13:05:00 017 00:01:00 DIS Outpatient RUDOLPH KENT DO [facility] PORT [id number] 05/07/2017 08:16:00 017 23:59:59 CLS Outpatient WOOTENIDALIA SERRATO [facility] CARD BENIGN HYPERTENSION,HYPERLIPIDEMIA [id number] 04/30/2017 09:22:00 017 23:59:59 CLS Outpatient IDALIA DE LA ROSA [facility] CARD CAD,HYPERLI PIDEMIA [id number] 01/30/2017 13:15:00 017 23:59:59 CLS Preadmit LUKASZ CROWLEY APRN [facility] RAD COPD [id number] 11/01/2016 13:26:00 017 00:01:00 DIS Outpatient LUKASZ CROWLEY APRN [facility] RAD COPD [id number] 08/25/2016 13:04:00 016 00:01:00 DIS Outpatient RUDOLPH KENT DO [facility] PORT [id number] 06/16/2016 13:05:00 016 00:01:00 DIS Outpatient RUDOLPH KENT DO [facility] PORT [id number] 04/17/2016 16:45:00 016 12:30:00 DIS Inpatient RUDOLPH KENT DO [facility] 4TH COPD EXACERBATI ON, FLUID RETENTION [id number] 03/28/2016 11:05:00 016 23:59:59 CLS Outpatient LUKASZ CROWLEY APRN [facility] RAD COPD,DYSPNEA,TO BACCO USE [id number] 08/17/2015 10:26:00 015 13:15:00 DIS Outpatient CHA VERDUGO DO [facility] ABDOMINAL PAIN [id number] 08/12/2015 05:38:00 015 23:59:59 CLS Outpatient CHA VERDUGO DO [facility] PREOP ABDOMINAL PAIN [id number] 08/10/2015 09:32:00 015 23:59:59 CLS Outpatient CHA VERDUGO DO [facility] RAD VENTRAL HERNIA [id number] 07/09/2015 06:39:00 015 23:59:59 CLS Outpatient RUDOLPH KENT DO [facility] CARD 414.00 786.50-- CAD,CP [id number] 06/30/2015 11:26:00 015 23:59:59 CLS Outpatient PETRA KEARNEY DC [facility] RAD MID BACK/CHEST PAIN [id number] 06/29/2015 12:36:00 015 23:59:59 CLS Outpatient PETRA KEARNEY DC [facility] RAD MID BACK/CHEST PAIN [id number] 06/09/2015 09:01:00 015 12:00:00 DIS Outpatient RAY COLBY MD [facility] WOUNDCARE OPEN CHRONIC WOUND ABD [id number] 05/26/2015 08:58:00 015 00:01:00 DIS Outpatient RAY COLBY MD [facility] WOUNDCARE OPEN CHRONIC WOUND ABD [id number] 03/24/2015 10:30:00 23:59:59 CLS Outpatient 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 [facility] RAD FALL, 03/22/15 PNUEMONIA [id number] 03/19/2015 10:25:00 015 23:59:59 CLS Outpatient ANDREA FERRO DPM [facility] RAD TARSAL MICHELLE [id number] 03/18/2015 10:39:00 015 23:59:59 CLS Outpatient LUCINA DO, MEDARDOROUTIE [facility] RAD DYSPHAGIA [id number] 03/16/2015 10:09:00 015 13:25:00 DIS Outpatient LUCINA DO, CHANDROUTIE [facility] SDC DYSPHAGIA [id number] 03/11/2015 06:42:00 23:59:59 CLS Outpatient LUCINA DO, CHANDROUTIE [facility] PREOP DYSPHAGIA [id number] 02/24/2015 09:02:00 015 00:01:00 DIS Outpatient RAY COLBY MD [facility] WOUNDCARE OPEN CHRONIC WOUND ABD [id number] 12/09/2014 12:58:00 23:59:59 CLS Outpatient AISLINN VILLALPANDOQING [facility] RT COPD,DYSPNA [id number] 10/15/2014 10:06:00 23:59:59 CLS Outpatient YOLI VILLALPANDO RUDOLPH Raymond [facility] RAD ROUTINE [id number] 09/30/2014 11:00:00 13:36:00 DIS Outpatient JIMMY KENT [facility] WOUNDCARE OPEN CHRONIC WO UND TO ABD [id number] 09/23/2014 10:51:00 10:05:00 DIS Outpatient JUAN LICONA MD [facility] [facility] CATH ABNORMAL STRESS, CAD, SOB,CP,TOBACCOISM [id number] 09/21/2014 07:53:00 23:59:59 CLS Outpatient JUAN LICONA MD [facility] CARD CP,HLP [id number] 09/18/2014 08:55:00 23:59:59 CLS Outpatient JUAN LICONA MD [facility] CARD CP,HLP [id number] 08/24/2014 14:30:00 23:59:59 CLS Outpatient CHA VERDUGO DO [facility] LABNPT ABDOMINAL WOUND [id number] 08/20/2014 11:03:00 14:15:00 DIS Outpatient MEDARDO VERDUGO DOROUTIE [facility] MULTIPLE GASTRI C ULCERS [id number] 08/12/2014 07:18:00 23:59:59 CLS Outpatient MEDARDO VERDUGO DOROUTIE [facility] PREOP MULTIPLE GASTRI C ULCERS [id number] 05/29/2014 09:39:00 00:01:00 DIS Outpatient JIMMY KENT [facility] PORT [id number] 07/15/2014 12:00:00 014 00:01:00 DIS Outpatient 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 [facility] WOUNDCARE OPEN CHRONIC WO UND TO ABD [id number] 07/09/2014 12:20:00 014 15:30:00 DIS Outpatient LUCINA DO, CHANDROUTIE [facility] SDC REFLUX [id number] 07/08/2014 07:15:00 23:59:59 CLS Outpatient LUCINA DO, CHANDROUTIE [facility] PREOP REFLUX [id number] 06/19/2014 10:22:00 23:59:59 CLS Outpatient LUCINA DO, CHANDROUTIE [facility] RAD DSYPHAGIA [id number] 06/04/2014 11:57:00 15:05:00 DIS Outpatient LUCINA DO, CHANDROUTIE [facility] SDC REFLUX [id number] 06/03/2014 08:33:00 23:59:59 CLS Outpatient LUCINA DO, CHANDROUTIE [facility] PREOP REFLUX [id number] 04/10/2014 08:50:00 00:01:00 DIS Outpatient JIMMY KENTP [facility] WOUNDCARE OPEN CHRONIC WO UND TO ABD [id number] 03/20/2014 09:29:00 014 00:01:00 DIS Outpatient JIMMY KENT [facility] SDC PORT [id number] 02/21/2014 12:51:00 17:09:00 DIS Inpatient RUDOLPH KENT DO [facility] SURGICAL SMALL BOWEL OBSTRUCTION [id number] 02/03/2014 09:19:00 23:59:59 CLS Outpatient RUDOLPH KENT DO [facility] RAD PNUEMONIA [id number] 10/22/2013 10:15:00 11:14:00 DIS Outpatient RUDOLPH KENT DO [facility] WOUNDCARE ABD WOUND [id number] 08/25/2013 08:06:00 13:35:00 DIS Inpatient RUDOLPH KENT DO [facility] 4TH COPD EXACERBATI ON INFLUENZA B [id number] 08/22/2013 11:42:00 23:59:59 CLS Outpatient 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 [facility] RAD COUGH,FEBULE IL LNESS [id number] 03/14/2013 09:15:00 10:08:00 DIS Outpatient MELISA DOHERTY MD [facility] WOUNDCARE OPEN ABD WOUND [id number] 02/03/2020 13:28:00 Document Registration [id number] 12/26/2017 08:28:00 Document Registration [id number] 12/26/2017 08:28:00 Document Registration [id number] 12/26/2017 08:28:00 Document Registration [id number] 12/26/2017 08:28:00 Document Registration [id number] 12/26/2017 08:27:00 Document Registration [id number] 12/26/2017 08:27:00 Document Registration [id number] 12/26/2017 08:27:00 Document Registration [id number] 12/26/2017 08:27:00 Document Registration [id number] 01/25/2015 20:10:00 Document Registration [id number] 07/31/2014 00:00:00 Document Registration [id number] 00:00:00 Document Registration [id number] 02/23/2013 16:36:00 Document Registration [id number] 02/14/2013 00:00:00 Document Registration [id number] 02/07/2013 11:31:00 Document Registration [id number] 01/28/2013 10:30:00 Document Registration [id number] 11/08/2012 10:50:00 Document Registration [id number] 10/29/2012 10:05:00 Document Registration [id number] 10/25/2012 10:37:00 Document Registration [id number] 10/08/2012 10:00:00 Document Registration [id number] 08/16/2012 11:37:00 Document Registration [id number] 08/05/2012 00:00:00 Document Registration [id number] 08/01/2012 06:54:00 Document Registration [id number] 07/31/2012 08:09:00 Document Registration [id number] 07/16/2012 10:05:00 Document Registration [id number] 05/07/2012 10:19:00 Document Registration [id number] 04/10/2012 14:00:00 Document Registration [id number] 02/14/2012 11:50:00 Document Registration [id number] 01/19/2012 20:15:00 Document Registration [id number] 08/28/2011 15:15:00 Document Registration [id number] 08/14/2011 09:52:00 Document Registration [id number] 07/28/2011 15:15:00 Document Registration [id number] 06/07/2011 14:32:00 Document Registration [id number] 05/29/2011 09:56:00 Document Registration [id number] 05/25/2011 10:14:00 Document Registration [id number] 04/28/2011 14:55:00 Document Registration [id number] 02/26/2011 14:17:00 Document Registration [id number] 01/25/2011 15:20:00 Document Registration [id number] 10/24/2010 15:30:00 Document Registration [id number] 06/20/2010 15:00:00 Document Registration [id number] 04/07/2010 17:36:00 Document Registration [id number] 02/15/2010 14:55:00 Document Registration [id number] 10/29/2009 07:00:00 Document Registration [id number] 05/25/2009 10:07:00 Document Registration [id number] 02/23/2009 08:31:00 Document Registration [id number] 10/01/2008 14:03:00 Document Registration [id number] 08/13/2008 10:56:00 Document Registration [id number] 06/19/2008 12:32:00 Document Registration [id number] 06/04/2008 15:19:00 Document Registration [id number] 04/09/2008 08:04:00 Document Registration [id number] 12/17/2007 08:33:00 Document Registration [id number] 01/18/2007 11:18:00 Document Registration [id number] 11/09/2006 06:26:00 Document Registration [id number] 05/04/2006 11:09:00 Document Registration [id number] 04/27/2006 07:50:00 Document Registration [id number] 04/12/2006 17:10:00 Document Registration [id number] 03/20/2006 12:15:00 Document Registration [id number] 02/22/2006 08:15:00 Document Registration
[2020-02-03 14:36] LABS: ABG BASE EXCESS -6.2 MMOL/L (-2.5-2.5); ABG OXYGEN SATURATION 93 % (94-100); ABG PCO2 48 MMHG (35-45); ABG PO2 80 MMHG (79-93); ABG TCO2 21.5 MMOL/L (21.0-31.0)
[2020-02-03 14:37] LABS: ABG PH 7.24 (7.37-7.43); ALLENS TEST YES-POS; INSPIRED O2 30%; PATIENT TEMP 36.8; VENTILATOR YES
[2020-02-03 14:38] LABS: PROTHROMBIN TIME PATIENT 13.8 SEC (12.2-14.7)
--- NOTE | 2020-02-03 14:39 | History & Physical-Hospitalist ---
History of Present Illness HPI/Chief Complaint Pt is a 69yoCF with a PMH of COPD, CHF, HTN known to me from recent admission due to SBO who presented to the ER due SOB via EMS. She was found to be quite hypotensive and guppy breathing and in extremis. She was emergently intubated and started on pressors. She is unable to provide me any history at this time and all is obtained from the records. She was admitted to the hospital 2 weeks ago for SBO which was managed conservatively with NGT and bowel rest. She developed pneumonia and was treated with Zosyn. She was eventually discharged to IRU for continued strengthening and was discharged home with home health on 01/29. Today when home health PT arrived they were unable to get a BP and noticed her respiratory distress and called EMS for evaluation. Source: patient Date Seen 02/03/20 Time Seen by a Provider: 14:33 Attending Physician PCP Rudolph Knight DO Referring Physician Date of Admission Home Medications & Allergies Home Medications Reviewed patient Home Medication Reconciliation performed by pharmacy medication reconciliations cotton program technician and/or nursing. Patients Allergies have been reviewed. Allergies Allergies Coded Allergies Iodinated Contrast Media (Verified Allergy, Mild, HIVES, 12/08/19) linezolid (Verified Allergy, Mild, HIVE, 12/08/19) Past Trfsnii-Ewwsie-Chdola Hx Past Med/Social Hx: Reviewed Nursing Past Med/Soc Hx Patient Social History Marrital Status: Alcohol Beverage of Choice: Rum, Whiskey, [place], Vodka Type Used: Cigarettes 2nd Hand Smoke Exposure: Yes Recent Foreign Travel: No Contact w/other who traveled: No Recent Hopitalizations: Yes Recent Infectious Disease Expo: No Immunizations Up To Date Tetanus Booster (TDap): Unknown Date of Pneumonia Vaccine: Sep 16, 2019 Date of Influenza Vaccine: Sep 15, 2019 Seasonal Allergies Seasonal Allergies: Yes Past Medical History Surgeries: Appendectomy, Coronary Stent, Gallbladder, 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, Vascular S urgery Respiratory: Asthma, Chronic Bronchitis, COPD, Emphysema, Pneumonia Currently Using CPAP: No Currently Using BIPAP: No Cardiac: Chronic Edema/Swelling, High Cholesterol, Hypertension Neurological: Headaches /Migraines, Neuropathy 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: No 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 Gastrointestinal: Obstructive Bowel, Hiatal Hernia Musculoskeletal: Arthritis, Fibromyalgia, Chronic Back Pain Endocrine: Diabetes, Non-Insulin dep Loss of Vision: Denies Hearing Impairment: Denies Psychosocial: Anxiety, Depression Skin/Integumentary: Recent Skin Changes History of Blood Disorders: No Adverse Reaction to Blood [place]: No (N/A) Family History Colon cancer G8 BROTHER (PANCREATIC) Dementia 19 MOTHER G8 BROTHER Hypertension 19 MOTHER Myocardial infarction G8 BROTHER Diabetes, Hypertension, Other Conditions/Hx Review of Systems ROS-Unable to Obtain: intaubted, unable to obtain Constitutional: see HPI Physical Exam Physical Exam Vital Signs Vital Signs - First Documented 02/03/20 02/03/20 02/03/20 13:00 13:10 14:40 Temp 36.8 Pulse 73 Resp 9 B/P (MAP) 88/44 (59) Pulse Ox 98 O2 Delivery Nasal Cannula O2 Flow Rate 3.00 FiO2 30 Capillary Refill : Less Than 3 Seconds Height, Weight, BMI Height: 5'1.00" Weight: 162lbs. 0.0oz. 73.933572sq; 32.00 BMI Method:Stated General Appearance: Chronically ill, Obese HEENT: PERRL/EOMI, Moist Mucous Membranes; No Scleral Icterus (L), No Scleral Icterus (R) Neck: Normal Inspection; No Thyromegaly Respiratory: Decreased Breath Sounds; No Wheezing; Other (intubated) Cardiovascular: Regular Rate, Rhythm, No Murmur Gastrointestinal: Normal Bowel Sounds, Non Tender, Soft; No Distended Genital/Rectal: Other (alexander in place) Extremity: No Calf Tenderness, No Pedal Edema, Slow Capillary Refill Neurologic/Psychiatric: Other (sedated, appears comfortable) Skin: Normal Color, Warm/Dry Results Results/Procedures Labs Laboratory Tests 02/03/20 13:10 02/04/20 02:15 Patient resulted labs reviewed. Imaging: Reviewed Imaging Films Assessment/Plan Admission Diagnosis Septic Shock Acute Respiratory Failure Admission Status: Inpatient Order (span 2 midnights) Reason for Inpatient Admission: intubated on pressors Assessment and Plan Septic Shock PNA Acute Respiratory Failure COPD Intubated in the ER Continue on ABX COVID testing ordered Cultures pending TeleHealth consulted, appreciate assistance MAT protocol Levophed ordered DEANGELO Creatine 4.14 Last creatinine 0.7 Continue high volume fluid resuscitation Monitor UOP IDDMII Hold metformin Trend Blood sugars SSI HTN CAD Hold home antihypertensives for shock Follows with Dr Smith DVT ppx: heparin Discussed with regarding her current critical illness and need for admission to the ICU. Discussed code status and he confirmed she would want to be a DNR at this time. Diagnosis/Problems Diagnosis/Problems (1) DEANGELO (acute kidney injury) (2) Hyperkalemia (3) Microcytic anemia (4) Acute on chronic respiratory failure with hypoxia and hypercapnia Status: Acute (5) GERD (gastroesophageal reflux disease) Status: Chronic (6) T2DM (type 2 diabetes mellitus) Status: Chronic Copy Copies To 1: RUDOLPH KNIGHT KATELYN M MD Feb 03, 2020 14:39
[2020-02-03 14:47] LABS: RBC,URINE 0-2 /HPF
[2020-02-03 14:51] LABS: BACTERIA,URINE TRACE /HPF
[2020-02-03 14:52] LABS: AMORPHOUS SEDIMENT,UR MOD AMOR URATES /LPF; HYALINE CASTS, URINE 0-2 /LPF; SQUAMOUS EPITHELIAL CELL,UR 0-2 /HPF
--- NOTE | 2020-02-03 14:58 | Diagnostic Imaging Report ---
INDICATION: Shortness of breath. TIME OF EXAMINATION: 2:37 PM. COMPARISON: Correlation is made with the prior chest from 01/21/2020. FINDINGS: The patient has been intubated. The ET tube has its tip above the manoj. The NG tube passes below the diaphragm. The right-sided port has its tip in the upper portion of the right atrium. There is a left-sided port with the tip overlying the SVC. The previously noted infiltrates in the right lung have resolved. The central vascularity is slightly prominent but no significant parenchymal consolidation is seen on today's study. There is no effusion or pneumothorax. There are some mild basilar interstitial changes noted. IMPRESSION: 1. Satisfactory endotracheal tube placement. 2. Resolution of airspace infiltrate in the right lung since the examination from 01/21/2020. There are some mild basilar interstitial changes. Dictated by: Dictated on workstation # [id number]
[2020-02-03] MEDS ORDERED: VANCOMYCIN INJECTION 0.1 MG in NS (IVPB) 250 ML IV SCH (15:00)
[2020-02-03 15:14] LABS: AMPHETAMINE SCREEN, URINE NEGATIVE (NEGATIVE); BARBITURATE SCREEN URINE NEGATIVE (NEGATIVE); BENZODIAZEPINES SCREEN URINE POSITIVE (NEGATIVE); CANNABINOID SCREEN, URINE POSITIVE (NEGATIVE); COCAINE SCREEN URINE NEGATIVE (NEGATIVE); METHADONE STAT NEGATIVE (NEGATIVE); METHAMPHETAMINE SCREEN URINE S NEGATIVE (NEGATIVE); OPIATE SCREEN URINE POSITIVE (NEGATIVE); OXYCODONE STAT POSITIVE (NEGATIVE); PROPOXYPHENE STAT NEGATIVE (NEGATIVE); TRICYCLIC ANTIDEPRESSANTS SCRE NEGATIVE (NEGATIVE)
[2020-02-03 15:19] LABS: POTASSIUM 5.7 MMOL/L (3.6-5.0)
--- NOTE | 2020-02-03 15:21 | NUR ---
"Received dietary consult regarding pt's vent status. Est. kcal needs: 5181-9631 kcal | 20-25 kcal/kg Est. Pro needs: 78-93 g Pro | 1.0-1.2 g Pro/kg Given current condition, would recommend the following TF if pt is to remain NPO for more than 3days: Glucerna 1.5 at goal rate of 45ml/hr. Begin at 10ml/hr and increase by 10ml q6h as tolerated. Monitor gastric residuals for tolerance. At goal rate, provides 1620 kcal (21 kcal/kg); 89 g Pro (1.1 g Pro/kg); and 820ml free water. Flush with 75ml H2O q4h for hydration status. With flushes, provides 1260ml free water. Will continue to follow and reassess as pt needs, intake, and status change. Navneet Jenkins, MS, RD, LD"
[2020-02-03] MEDS ORDERED: inSUlin ASPART (NovoLOG) 1 UNIT/0.01 ML (CHARGE PER UNIT) SC SCH (16:00)
--- NOTE | 2020-02-03 16:19 | Diagnostic Imaging Report ---
PROCEDURE: CT chest, abdomen, and pelvis without contrast. TECHNIQUE: Multiple contiguous axial images were obtained through the chest, abdomen, and pelvis without the use of intravenous contrast. Auto Exposure Controls were utilized during the CT exam to meet ALARA standards for radiation dose reduction. INDICATION: Shortness of breath with history of CHF and COPD. COMPARISON: Correlation is made with CT abdomen and pelvis study from 01/17/2020. FINDINGS: CT chest: Patient is intubated. ET tube has tip above the manoj. There is a nasogastric tube passing into the stomach. Right chest wall port has the tip in the right atrium. Left-sided line has the tip in the SVC right atrial junction. No definite pericardial or pleural fluid is identified. A pulmonary parenchymal evaluation demonstrates the upper lobes bilaterally be fairly clear. There is a very minimal interstitial nodular infiltrate in the superior segments of bilateral lower lobes. No definite groundglass opacities are seen. There is trace airspace infiltrate versus atelectasis in the far posterior aspects of the lower lobes bilaterally. No axillary lymphadenopathy is seen. Normal-sized lymph nodes in the mediastinum are noted. Hilar unremarkable. IMPRESSION: 1. There is some mild bibasilar interstitial infiltrates with minimal airspace infiltrate or atelectasis as well. No groundglass opacities are seen. There is no pleural fluid. CT abdomen and pelvis: The liver is unremarkable. The gallbladder is surgically absent. No biliary ductal dilatation is seen. The pancreas and spleen are unremarkable. No adrenal mass is detected. Kidneys are without calculi or hydronephrosis. Aorta is non-aneurysmal. Previously noted significant gastric and small bowel fluid filled distention on prior CT is no longer appreciated. Bowel gas pattern appears to be nonobstructed today. The bladder is decompressed by Sheth catheter. There is no free fluid or fluid collection identified in abdomen or pelvis. There are surgical clips in the right abdomen. No inflammatory changes are seen. IMPRESSION: 1. Resolution of findings of small bowel obstruction since CT study 01/17/2020. No acute feature in the abdomen or pelvis is identified. Dictated by: Dictated on workstation # [id number]
--- OUTSIDE RECORDS SUMMARY | 2020-02-03 16:39 | XMS REPORT | Continuity of Care Document ---
Author Organization Unknown Address Unknown Phone Unavailable Allergies Active Description Code Type Severity Reaction Onset Reported/Identified Relationship to Patient Clinical Status Yes Iodinated Contrast Media [id number] Drug Allergy Unknown N/A 08/17/2015 Yes Iodinated Contrast Media - IV Dye [id number] Drug Allergy Unknown N/A 015 Yes Iodinated Contrast Media - Oral and [id number] Drug Allergy Unknown N/A 08/17/2015 Yes Iodinated Contrast- Oral and IV Dye [id number] Drug Allergy Unknown N/A 08/17/2015 Yes linezolid [id number] Drug Allergy Unknown N/A 08/17/2015 Yes Iodinated Contrast Media [id number] Drug Allergy Mild HIVES 12/08/2019 Yes linezolid [id number] Drug Allergy Mild HIVE 12/08/2019 Medications There [...] 276.8 HYPO POTASSEMIA 06/13/2011 Ot 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 06/13/2011 Ot 311 DEPRES SIVE DISORDER NEC 06/13/2011 Ot 383.1 SPIDER ASSEMBLER AISHA MASTOIDITIS 06/13/2011 Ot 496 CHR AI RWAY OBSTRUCT NEC 06/13/2011 Ot 560.1 PARA LYTIC ILEUS 06/13/2011 Ot 560.32 FEC AL IMPACTION 06/13/2011 Ot 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 [id number]/INF 06/13/2011 Ot 729.1 MYAL NICKIE AND MYOSITIS [...] DEPEND NOS- UNSPEC 03/01/2013 Ot 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 03/01/2013 Ot 311 DEPRES SIVE DISORDER NEC 03/01/2013 Ot 345.90 EPI LEPSY UNSPEC W/O MENTION INTRACTABLE 03/01/2013 Ot 496 CHR AI RWAY OBSTRUCT NEC 03/01/2013 Ot 530.81 ESO PHAGEAL REFLUX 03/01/2013 Ot 560.9 INTE STINAL OBSTRUCT NOS 03/01/2013 Ot 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 [id number]/INF 03/01/2013 Ot 571.8 SPIDER ASSEMBLER AISHA LIVER DIS NEC 03/01/2013 Ot 596.51 [...] Ot 496 CHR AIRWAY OBSTRUCT NEC 02/25/2014 URDOLPH KENT DO, Ot 530.81 ESOPHAGEAL REFLUX 02/25/2014 RUDOLPH KENT DO Ot 560.9 INTESTINAL OBSTRUCT NOS 02/25/2014 RUDOLPH KENT DO, Ot 729.1 MYALGIA AND MYOSITIS NOS 02/25/2014 RUDOLPH KENT DO Ot 998.83 NON-HEALING SURG WOUND 02/25/2014 RUDOLPH KENT DO Ot V12.04 PERSONAL HIST OF METHICILLIN RESISTANT S 04/16/2014 JIMMY KENT LEATHER CLEANER Ot 879.2 OPN WND ANTERIOR ABDOMEN 04/16/2014 JIMMY KENT LEATHER CLEANER Ot V58.81 FIT/ADJ VASCULAR CATHETER 06/04/2014 CHA VERDUGO DO Ot 531.90 STOMACH ULCER NOS 07/09/2014 CHA VERDUGO DO Ot 531.90 STOMACH ULCER NOS 07/16/2014 JIMMY KENT LEATHER CLEANER Ot 709.8 SKIN DISORDERS NEC 07/16/2014 JIMMY KENT LEATHER CLEANER Ot V58.81 FIT/ADJ VASCULAR CATHETER 07/30/2014 JIMMY KENT LEATHER CLEANER Ot V58.81 FIT/ADJ VASCULAR CATHETER 08/20/2014 CHA [...] MD Ot 414. 01 CORONARY ATHEROSCLEROSIS OF [place] CORON 09/24/2014 JUAN LICONA MD Ot 496 CHR AIRWAY OBSTRUCT NEC 09/24/2014 JUAN LICONA MD Ot V58. 67 LONG-TERM (CURRENT) USE OF INSULIN 09/24/2014 JUAN LICONA MD Ot V58. 69 OTH MED,LT,CURRENT USE 09/30/2014 JIMMY KENT LEATHER CLEANER Ot 709.8 09/30/2014 JIMMY KENTP Ot 709.8 [...] 04/05/2015 RAY COLBY MD Ot 998.83 04/05/2015 ARY COLBY MD Ot 998.83 04/05/2015 RAY COLBY MD, Ot 998.83 04/10/2015 QING TAO DO Ot 305. 1 04/10/2015 QING TAO DO Ot 496 04/10/2015 QING TAO DO Ot 786. 09 04/28/2015 JIMMY KENT LEATHER CLEANER Ot 486 04/28/2015 JIMMY KENT LEATHER CLEANER Ot 789.00 04/28/2015 JIMMY KENT LEATHER CLEANER Ot 959.6 04/28/2015 JIMMY KENT LEATHER CLEANER Ot E000.8 04/28/2015 YOLIJIMMY LEATHER CLEANER Ot E849.4 04/28/2015 YOLI JIMMY L LEATHER CLEANER Ot E888.9 04/28/2015 ANDREA FERRO DPM Ot [...] 09/28/2015 Ot V58.81 09/28/2015 JIMMY VARGAS Alin THRESHING MACHINE OPERATOR Ot 780.60 09/28/2015 JIMMY VARGAS Alin THRESHING MACHINE OPERATOR Ot 786.2 09/28/2015 JIMMY VARGAS Alin THRESHING MACHINE OPERATOR Ot 793.19 09/28/2015 KENT DO, RUDOLPH Mandi [...] JUAN LICONA MD Ot 786. 50 09/28/2015 JUAN LICONA MD Ot V46. 2 09/28/2015 RUDOLPH [...] VERDUGO DOROUTIE Ot 787.20 09/28/2015 JIMMY KENT LEATHER CLEANER Ot 486 09/28/2015 JIMMY KENT LEATHER CLEANER Ot 789.00 09/28/2015 ADAMA KENTIA Jr LEATHER CLEANER Ot 959.6 09/28/2015 JIMMY KENT LEATHER CLEANER Ot E000.8 09/28/2015 ADAMA KENTIA L LEATHER CLEANER Ot E849.4 09/28/2015 ADAMA KENTIA L LEATHER CLEANER Ot E888.9 10/04/2015 RUDOLPH KENT DO Ot [...] 998.59 11/10/2015 Ot V58.81 11/10/2015 RIDINGSJIMMY C THRESHING MACHINE OPERATOR Ot 780.60 11/10/2015 RIDINGSADAMAIA C THRESHING MACHINE OPERATOR Ot 786.2 11/10/2015 RIDINGSJIMMY C THRESHING MACHINE OPERATOR Ot 793.19 11/10/2015 RUDOLPH KENT DO Ot [...] , MEDARDOROUTIE Ot 787.20 11/10/2015 JIMMY KENT LEATHER CLEANER Ot 486 11/10/2015 JIMMY KENT LEATHER CLEANER Ot 789.00 11/10/2015 JIMMY KENT LEATHER CLEANER Ot 959.6 11/10/2015 JIMMY KENT LEATHER CLEANER Ot E000.8 11/10/2015 JIMMY KENT LEATHER CLEANER Ot E849.4 11/10/2015 JIMMY KENT LEATHER CLEANER Ot E888.9 03/28/2016 RUDOLPH KENT DO Ot [...] Ot R60.9 EDEMA, UNSPECIFIED 04/20/2016 Ot 383.1 SPIDER ASSEMBLER AISHA MASTOIDITIS 04/20/2016 Ot 787.20 DYS PHAGIA, [...] /ADJ VASCULAR CATHETER 04/20/2016 RIDINGS, JIMMY C THRESHING MACHINE OPERATOR Ot 780.60 FEVER, UNSPECIFIED 04/20/2016 RIDINGS, JIMMY C THRESHING MACHINE OPERATOR Ot 786.2 COUGH 04/20/2016 RIDINGS, JIMMY C THRESHING MACHINE OPERATOR Ot 793.19 OTHER NONSPECIFIC ABNORMAL FINDING OF [...] Ot 787.20 DYSPHAGIA, UNSPECIFIED 04/20/2016 JIMMY KENT LEATHER CLEANER Ot 486 PNEUMONIA, ORGANISM NOS 04/20/2016 JIMMY KENT LEATHER CLEANER Ot 789.00 ABDOMINAL PAIN, UNSPECIFIED SITE 04/20/2016 JIMMY KENT LEATHER CLEANER Ot 959.6 HIP THIGH INJURY NOS 04/20/2016 JIMMY KENT LEATHER CLEANER Ot E000.8 OTHER EXTERNAL CAUSE STATUS 04/20/2016 KENT, JIMMY Jr GARCIA Ot E849.4 ACCID IN RECREATION AREA 04/20/2016 JIMMY KENT Ot E888.9 FALL NOS 04/20/2016 PILGRIM PETRA NICKERSON Ot 724. 5 BACKACHE NOS 04/20/2016 CAIO KRISHAN, PETRA Raymond Ot 786. 50 CHEST PAIN NOS 04/20/2016 PILGRIM PETRA NICKERSON Ot 724. 1 PAIN IN THORACIC SPINE 04/20/2016 PILGRIM PETRA NICKERSON Ot 786. 50 CHEST PAIN NOS 04/20/2016 RUDOLPH KENT DO Ot 414.00 CORON ATHEROSCLER NOS TYPE VESSEL, NATIV 04/20/2016 RUDOLPH KENT DO Ot 786.50 CHEST PAIN NOS 04/20/2016 RUDOLPH KENT DO Ot I25.10 ATHSCL HEART DISEASE OF [place] CORONARY 04/20/2016 RUDOLPH KENT DO Ot R07.9 [...] FOR ADJUSTMENT AND MANAGEMENT 06/29/2016 Ot 383.1 SPIDER ASSEMBLER AISAH MASTOIDITIS 06/29/2016 Ot 787.20 DYS PHAGIA, UNSPECIFIED [...] /ADJ VASCULAR CATHETER 06/29/2016 RIDINGS, JIMMY C THRESHING MACHINE OPERATOR Ot 780.60 FEVER, UNSPECIFIED 06/29/2016 RIDINGS, JIMMY C THRESHING MACHINE OPERATOR Ot 786.2 COUGH 06/29/2016 RIDTONY, JIMMY C THRESHING MACHINE OPERATOR Ot 793.19 OTHER NONSPECIFIC ABNORMAL FINDING OF [...] Ot 787.20 DYSPHAGIA, UNSPECIFIED 06/29/2016 JIMMY KENT LEATHER CLEANER Ot 486 PNEUMONIA, ORGANISM NOS 06/29/2016 JIMMY KENT LEATHER CLEANER Ot 789.00 ABDOMINAL PAIN, UNSPECIFIED SITE 06/29/2016 JIMMY KENT LEATHER CLEANER Ot 959.6 HIP THIGH INJURY NOS 06/29/2016 JIMMY KENT LEATHER CLEANER Ot E000.8 OTHER EXTERNAL CAUSE STATUS 06/29/2016 JIMMY KENT LEATHER CLEANER Ot E849.4 ACCID IN RECREATION AREA 06/29/2016 JIMMY KENT LEATHER CLEANER Ot E888.9 FALL NOS 07/21/2016 Ot 383.1 SPIDER ASSEMBLER AISHA MASTOIDITIS 07/21/2016 Ot 787.20 DYS PHAGIA, [...] /ADJ VASCULAR CATHETER 07/21/2016 RIDINGS, JIMMY C THRESHING MACHINE OPERATOR Ot 780.60 FEVER, UNSPECIFIED 07/21/2016 RIDINGS, JIMMY C THRESHING MACHINE OPERATOR Ot 786.2 COUGH 07/21/2016 RIDINGS, JIMMY C THRESHING MACHINE OPERATOR Ot 793.19 OTHER NONSPECIFIC ABNORMAL FINDING OF [...] Ot 355. 5 TARSAL TUNNEL SYNDROME 07/21/2016 CHA VERDUGO DO, Ot V72.84 EXAM PRE-OPERATIVE [...] DO Ot I25.10 ATHSCL HEART DISEASE OF [place] CORONARY 07/21/2016 RUDOLPH KENT DO Ot R07.9 CHEST PAIN, UNSPECIFIED 07/21/2016 CHA VERDUGO DO Ot R10.9 UNSPECIFIED ABDOMINAL PAIN 07/21/2016 CHA VERUDGO DO Ot Z01.818 ENCOUNTER FOR OTHER PREPROCEDURAL [...] FOR ADJUSTMENT AND MANAGEMENT 10/31/2016 Ot 383.1 SPIDER ASSEMBLER AISHA MASTOIDITIS 10/31/2016 Ot 787.20 DYS PHAGIA, [...] /ADJ VASCULAR CATHETER 10/31/2016 RIDINGS, JIMMY C THRESHING MACHINE OPERATOR Ot 780.60 FEVER, UNSPECIFIED 10/31/2016 RIDINGS, JIMMY C THRESHING MACHINE OPERATOR Ot 786.2 COUGH 10/31/2016 RIDINGS, JIMMY C THRESHING MACHINE OPERATOR Ot 793.19 OTHER NONSPECIFIC ABNORMAL FINDING OF [...] Ot 787.20 DYSPHAGIA, UNSPECIFIED 10/31/2016 JIMMY KENT LEATHER CLEANER Ot 486 PNEUMONIA, ORGANISM NOS 10/31/2016 JIMMY KENT LEATHER CLEANER Ot 789.00 ABDOMINAL PAIN, UNSPECIFIED SITE 10/31/2016 JIMMY KENTP Ot 959.6 HIP THIGH INJURY NOS 10/31/2016 JIMMY KENT LEATHER CLEANER Ot E000.8 OTHER EXTERNAL CAUSE STATUS 10/31/2016 [...] DO Ot I25.10 ATHSCL HEART DISEASE OF [place] CORONARY 10/31/2016 RUDOLPH KENT DO Ot R07.9 [...] ROSA Ot I25.10 ATHSCL HEART DISEASE OF [place] CORONARY 05/01/2017 FRANDY DE LA ROSA Ot I25.10 ATHSCL HEART DISEASE OF [place] CORONARY 05/08/2017 RUDOLPH KENT DO Ot Z45.2 [...] ROSA Ot I25.10 ATHSCL HEART DISEASE OF [place] CORONARY 05/29/2017 FRANDY DE LA ROSA Ot E11.9 TYPE 2 DIABETES MELLITUS WITHOUT COMPLIC 05/29/2017 FRANDY DE LA ROSA Ot E78.2 MIXED HYPERLIPIDEMIA 05/29/2017 FRANDY DE LA ROSA Ot I10 ESSENTIAL (PRIMARY) HYPERTENSION 05/29/2017 FRANDY DE LA ROSA Ot I25.10 ATHSCL HEART DISEASE OF [place] CORONARY 05/31/2017 FRANDY DE LA ROSA Ot E11.9 TYPE 2 DIABETES MELLITUS WITHOUT COMPLIC 05/31/2017 FRANDY DE LA ROSA Ot E78.2 MIXED HYPERLIPIDEMIA 05/31/2017 FRANDY DE LA ROSA K Ot I10 ESSENTIAL (PRIMARY) HYPERTENSION 05/31/2017 FRANDY DE LA ROSA Ot I25.10 ATHSCL HEART DISEASE OF [place] CORONARY 06/05/2017 RUDOLPH KENT DO, Ot Z45.2 [...] ROSA Ot I25.10 ATHSCL HEART DISEASE OF [place] CORONARY 07/03/2017 RUDOLPH KENT DO, Ot Z45.2 [...] /ADJ VASCULAR CATHETER 08/16/2017 RIDINGS, JIMMY C THRESHING MACHINE OPERATOR Ot 780.60 FEVER, UNSPECIFIED 08/16/2017 RIDINGS, JIMMY C THRESHING MACHINE OPERATOR Ot 786.2 COUGH 08/16/2017 RIDINGS, JIMMY C THRESHING MACHINE OPERATOR Ot 793.19 OTHER NONSPECIFIC ABNORMAL FINDING OF [...] Ot V58.81 FIT /ADJ VASCULAR CATHETER 08/16/2017 CHA VERDUGO DO Ot 879.2 OPN WND [...] MD Ot V46. 2 SUPPLEMENTAL OXYGEN 08/16/2017 JUNA LICONA MD Ot 272. 4 HYPERLIPIDEMIA NEC/NOS [...] Ot 787.20 DYSPHAGIA, UNSPECIFIED 08/16/2017 JIMMY KENT LEATHER CLEANER Ot 486 PNEUMONIA, ORGANISM NOS 08/16/2017 JIMMY KENT LEATHER CLEANER Ot 789.00 ABDOMINAL PAIN, UNSPECIFIED SITE 08/16/2017 JIMMY KENT LEATHER CLEANER Ot 959.6 HIP THIGH INJURY NOS 08/16/2017 JIMMY KENT LEATHER CLEANER Ot E000.8 OTHER EXTERNAL CAUSE STATUS 08/16/2017 JIMMY KENT JOSE Ot E849.4 ACCID IN RECREATION AREA 08/16/2017 KENTJIMMY JOSE Ot E888.9 FALL NOS 08/23/2017 RUDOLPH [...] Z45.2 ENCOUNTER FOR ADJUSTMENT AND MANAGEMENT 12/03/2017 RUDOLPH KENT DO, Ot Z45.2 ENCOUNTER FOR [...] /ADJ VASCULAR CATHETER 12/26/2017 RIDINGS, JIMMY C THRESHING MACHINE OPERATOR Ot 780.60 FEVER, UNSPECIFIED 12/26/2017 RIDTONY, JIMMY C THRESHING MACHINE OPERATOR Ot 786.2 COUGH 12/26/2017 RIDTONY, JIMMY C THRESHING MACHINE OPERATOR Ot 793.19 OTHER NONSPECIFIC ABNORMAL FINDING OF [...] Ot 787.20 DYSPHAGIA, UNSPECIFIED 12/26/2017 JIMMY KENT LEATHER CLEANER Ot 486 PNEUMONIA, ORGANISM NOS 12/26/2017 KENTJIMMY Jr LEATHER CLEANER Ot 789.00 ABDOMINAL PAIN, UNSPECIFIED SITE 12/26/2017 CHIP KENTRICIA Jr LEATHER CLEANER Ot 959.6 HIP THIGH INJURY NOS 12/26/2017 JIMMY KENT LEATHER CLEANER Ot E000.8 OTHER EXTERNAL CAUSE STATUS 12/26/2017 JIMMY KENT LEATHER CLEANER Ot E849.4 ACCID IN RECREATION AREA 12/26/2017 JIMMY KENT LEATHER CLEANER Ot E888.9 FALL NOS 12/26/2017 PILGRIM KRISHAN, PETRA Raymond Ot 724. 5 BACKACHE NOS 12/26/2017 PILGRIM PETRA NICKERSON Ot 786. 50 CHEST PAIN NOS 12/26/2017 PILGRIM PETRA NICKERSON Ot 724. 1 PAIN IN THORACIC SPINE 12/26/2017 PILGRIM PETRA NICKERSON Ot 786. 50 CHEST PAIN NOS 12/26/2017 RUDOLPH KENT DO Ot 414.00 CORON ATHEROSCLER NOS TYPE VESSEL, NATIV 12/26/2017 RUDOLPH KENT DO Ot 786.50 CHEST PAIN NOS 12/26/2017 RUDOLPH KENT DO Ot I25.10 ATHSCL HEART DISEASE OF [place] CORONARY 12/26/2017 RUDOLPH KENT DO Ot R07.9 [...] ROSA Ot I25.10 ATHSCL HEART DISEASE OF [place] CORONARY 12/26/2017 FRANDY DE LA ROSA Ot E11.9 TYPE 2 DIABETES MELLITUS WITHOUT COMPLIC 12/26/2017 FRANDY DE LA ROSA Ot E78.2 MIXED HYPERLIPIDEMIA 12/26/2017 FRANDY DE LA ROSA Ot I10 ESSENTIAL (PRIMARY) HYPERTENSION 12/26/2017 FRANDY DE LA ROSA Ot I25.10 ATHSCL HEART DISEASE OF [place] CORONARY 12/26/2017 LUKASZ CROWLEY APRN Ot F17.200 [...] /ADJ VASCULAR CATHETER 02/21/2018 RIDINGS, JIMMY Ogden THRESHING MACHINE OPERATOR Ot 780.60 FEVER, UNSPECIFIED 02/21/2018 RIDINGS, JIMMY C THRESHING MACHINE OPERATOR Ot 786.2 COUGH 02/21/2018 RIDINGS, JIMMY C THRESHING MACHINE OPERATOR Ot 793.19 OTHER NONSPECIFIC ABNORMAL FINDING OF [...] DO Ot E928.9 ACCIDENT NOS 02/21/2018 JUAN LICONA MD Ot 272. 4 [...] Ot 787.20 DYSPHAGIA, UNSPECIFIED 02/21/2018 JIMMY KENT LEATHER CLEANER Ot 486 PNEUMONIA, ORGANISM NOS 02/21/2018 JIMMY KENT LEATHER CLEANER Ot 789.00 ABDOMINAL PAIN, UNSPECIFIED SITE 02/21/2018 JIMMY KENT LEATHER CLEANER Ot 959.6 HIP THIGH INJURY NOS 02/21/2018 JIMMY KENT LEATHER CLEANER Ot E000.8 OTHER EXTERNAL CAUSE STATUS 02/21/2018 JIMMY KENT LEATHER CLEANER Ot E849.4 ACCID IN RECREATION AREA 02/21/2018 JIMMY KENT LEATHER CLEANER Ot E888.9 FALL NOS 02/21/2018 PETRA KEARNEY [...] DO Ot I25.10 ATHSCL HEART DISEASE OF [place] CORONARY 02/21/2018 RUDOLPH KENT DO Ot R07.9 [...] ROSA Ot I25.10 ATHSCL HEART DISEASE OF [place] CORONARY 02/21/2018 FRANDY DE LA ROSA Ot E11.9 TYPE 2 DIABETES MELLITUS WITHOUT COMPLIC 02/21/2018 FRANDY DE LA ROSA Ot E78.2 MIXED HYPERLIPIDEMIA 02/21/2018 FRANDY DE LA ROSA Ot I10 ESSENTIAL (PRIMARY) HYPERTENSION 02/21/2018 FRANDY DE LA ROSA Ot I25.10 ATHSCL HEART DISEASE OF [place] CORONARY 02/21/2018 LUKASZ CROWLEY APRN Ot F17.200 [...] Z45.2 ENCOUNTER FOR ADJUSTMENT AND MANAGEMENT 03/20/2018 RUDOLPH KENT DO, Ot Z45.2 ENCOUNTER FOR [...] /ADJ VASCULAR CATHETER 08/15/2018 RIDINGS, JIMMY C THRESHING MACHINE OPERATOR Ot 780.60 FEVER, UNSPECIFIED 08/15/2018 RIDINGS, JIMMY C THRESHING MACHINE OPERATOR Ot 786.2 COUGH 08/15/2018 RIDINGS, JIMMY C THRESHING MACHINE OPERATOR Ot 793.19 OTHER NONSPECIFIC ABNORMAL FINDING OF [...] DO Ot 530.10 ESOPHAGITIS NOS 08/15/2018 CHA VERDUOG DO Ot 553.3 DIAPHRAGMATIC HERNIA 08/15/2018 CHA VERDUGO DO Ot 787.20 DYSPHAGIA, UNSPECIFIED 08/15/2018 JIMMY KENT LEATHER CLEANER Ot 486 PNEUMONIA, ORGANISM NOS 08/15/2018 JIMMY KENT LEATHER CLEANER Ot 789.00 ABDOMINAL PAIN, UNSPECIFIED SITE 08/15/2018 JIMMY KENTP Ot 959.6 HIP THIGH INJURY NOS 08/15/2018 JIMMY KENT LEATHER CLEANER Ot E000.8 OTHER EXTERNAL CAUSE STATUS 08/15/2018 JIMMY KENT LEATHER CLEANER Ot E849.4 ACCID IN RECREATION AREA 08/15/2018 [...] DO Ot I25.10 ATHSCL HEART DISEASE OF [place] CORONARY 08/15/2018 RUDOLPH KENT DO Ot R07.9 [...] ROSA Ot I25.10 ATHSCL HEART DISEASE OF [place] CORONARY 08/15/2018 FRANDY DE LA ROSA Ot E11.9 TYPE 2 DIABETES MELLITUS WITHOUT COMPLIC 08/15/2018 FRANDY DE LA ROSA Ot E78.2 MIXED HYPERLIPIDEMIA 08/15/2018 FRANDY DE LA ROSA Ot I10 ESSENTIAL (PRIMARY) HYPERTENSION 08/15/2018 FRANDY DE LA ROSA Ot I25.10 ATHSCL HEART DISEASE OF [place] CORONARY 08/15/2018 LUKASZ CROWLEY APRN Ot F17.200 [...] /ADJ VASCULAR CATHETER 08/16/2018 RIDINGS, JIMMY C THRESHING MACHINE OPERATOR Ot 780.60 FEVER, UNSPECIFIED 08/16/2018 RIDINGS, JIMMY C THRESHING MACHINE OPERATOR Ot 786.2 COUGH 08/16/2018 RIDINGS, JIMMY C THRESHING MACHINE OPERATOR Ot 793.19 OTHER NONSPECIFIC ABNORMAL FINDING OF [...] Ot 787.20 DYSPHAGIA, UNSPECIFIED 08/16/2018 JIMMY KENT LEATHER CLEANER Ot 486 PNEUMONIA, ORGANISM NOS 08/16/2018 JIMMY KENT LEATHER CLEANER Ot 789.00 ABDOMINAL PAIN, UNSPECIFIED SITE 08/16/2018 JIMMY KENT LEATHER CLEANER Ot 959.6 HIP THIGH INJURY NOS 08/16/2018 JIMMY KENT LEATHER CLEANER Ot E000.8 OTHER EXTERNAL CAUSE STATUS 08/16/2018 JIMMY KENT LEATHER CLEANER Ot E849.4 ACCID IN RECREATION AREA 08/16/2018 JIMMY KENT LEATHER CLEANER Ot E888.9 FALL NOS 08/16/2018 CAIO KRISHAN, [...] DO Ot I25.10 ATHSCL HEART DISEASE OF [place] CORONARY 08/16/2018 RUDOLPH KENT DO Ot R07.9 [...] ROSA Ot I25.10 ATHSCL HEART DISEASE OF [place] CORONARY 08/16/2018 FRANDY DE LA ROSA Ot E11.9 TYPE 2 DIABETES MELLITUS WITHOUT COMPLIC 08/16/2018 FRANDY DE LA ROSA Ot E78.2 MIXED HYPERLIPIDEMIA 08/16/2018 FRANDY DE LA ROSA Ot I10 ESSENTIAL (PRIMARY) HYPERTENSION 08/16/2018 DORIS EVANS, FRANDY Aviles Ot I25.10 ATHSCL HEART DISEASE OF [place] CORONARY 08/16/2018 LUKASZ CROWLEY APRN Ot F17.200 [...] MENTAL DISORDER DUE TO KNOWN PHYSIO 09/10/2018 RUDOLPH KENT DO, Ot G43.909 MIGRAINE, UNSP, [...] MD, Ot I25.10 ATHSCL HEART DISEASE OF [place] CORONARY 09/19/2018 MELISA DOHERTY MD, Ot I50.9 [...] BACTER 09/19/2018 MELISA DOHERTY MD, Ot Z79.4 SANFORIZING MACHINE OPERATOR (CURRENT) USE OF INSULIN 09/19/2018 MELISA DOHERTY MD, Ot Z79.82 SANFORIZING MACHINE OPERATOR (CURRENT) USE OF ASPIRIN 09/19/2018 MELISA DOHERTY MD, Ot Z79.84 SANFORIZING MACHINE OPERATOR (CURRENT) USE OF ORAL HYPOGLYC 09/19/2018 MELISA DOHERTY MD, Ot Z79.89 9 OTHER SANFORIZING MACHINE OPERATOR (CURRENT) DRUG THERAPY 09/19/2018 MELISA DOHERTY MD, [...] MD, Ot I25.10 ATHSCL HEART DISEASE OF [place] CORONARY 09/24/2018 MELISA DOHERTY MD, Ot I50.9 HEART FAILURE, UNSPECIFIED 09/24/2018 MELISA DOHERTY MD, Ot I65.23 OCCLUSION AND STENOSIS OF BILATERAL PASCUAL 09/24/2018 MELISA DOHERTY MD, Ot I87.2 VENOUS INSUFFICIENCY (CHRONIC) (PERIPHER 09/24/2018 MELISA DOHERTY MD, Ot J44.9 CHRONIC OBSTRUCTIVE PULMONARY DISEASE, U 09/24/2018 MELISA DOHERTY MD, Ot K21.9 GASTRO-ESOPHAGEAL REFLUX DISEASE WITHOUT 09/24/2018 MELISA DOHERTY MD, Ot M31.9 NECROTIZING VASCULOPATHY, UNSPECIFIED 09/24/2018 [...] BACTER 09/24/2018 MELISA DOHERTY MD, Ot Z79.4 RESIDENTIAL (CURRENT) USE OF INSULIN 09/24/2018 MELISA DOHERTY MD, Ot Z79.82 SANFORIZING MACHINE OPERATOR (CURRENT) USE OF ASPIRIN 09/24/2018 MELISA DOHERTY MD, Ot Z79.84 SANFORIZING MACHINE OPERATOR (CURRENT) USE OF ORAL HYPOGLYC 09/24/2018 MELISA DOHETRY MD, Ot Z79.89 9 OTHER RESIDENTIAL (CURRENT) DRUG THERAPY 09/24/2018 MELISA DOHERTY MD, [...] K21.9 GASTRO-ESOPHAGEAL REFLUX DISEASE WITHOUT 10/08/2018 MELISA DOHETRY MD Ot Z79.4 SANFORIZING MACHINE OPERATOR (CURRENT) USE OF INSULIN 10/08/2018 MELISA DOHERTY MD Ot Z79.82 SANFORIZING MACHINE OPERATOR (CURRENT) USE OF ASPIRIN 10/08/2018 MELISA DOHERTY MD Ot Z79.89 9 OTHER RESIDENTIAL (CURRENT) DRUG THERAPY 10/09/2018 MELISA DOHERTY MD [...] WITHOUT 10/09/2018 MELISA DOHERTY MD, Ot Z79.4 SANFORIZING MACHINE OPERATOR (CURRENT) USE OF INSULIN 10/09/2018 MELISA DOHERTY MD, Ot Z79.82 SANFORIZING MACHINE OPERATOR (CURRENT) USE OF ASPIRIN 10/09/2018 MELISA DOHERTY MD, Ot Z79.89 9 OTHER RESIDENTIAL (CURRENT) DRUG THERAPY 10/11/2018 KENT RUDOLPH VILLALPANDO [...] WITHOUT 10/14/2018 MELISA DOHERTY MD Ot Z79.4 SANFORIZING MACHINE OPERATOR (CURRENT) USE OF INSULIN 10/14/2018 MELISA DOHERTY MD Ot Z79.82 RESIDENTIAL (CURRENT) USE OF ASPIRIN 10/14/2018 MELISA DOHERTY MD Ot Z79.89 9 OTHER RESIDENTIAL (CURRENT) DRUG THERAPY 10/15/2018 MELISA DOHERTY MD, [...] WITHOUT 10/15/2018 MELISA DOHERTY MD, Ot Z79.4 SANFORIZING MACHINE OPERATOR (CURRENT) USE OF INSULIN 10/15/2018 MELISA DOHERTY MD, Ot Z79.82 SANFORIZING MACHINE OPERATOR (CURRENT) USE OF ASPIRIN 10/15/2018 MELISA DOHERTY MD, Ot Z79.89 9 OTHER SANFORIZING MACHINE OPERATOR (CURRENT) DRUG THERAPY 10/15/2018 RUDOLPH KENT DO, Ot M25.78 OSTEOPHYTE, VERTEBRAE 10/15/2018 RUDOLPH KENT DO, Ot M43.16 SPONDYLOLISTHESIS, LUMBAR REGION 10/15/2018 [...] Ot I25. 10 ATHSCL HEART DISEASE OF [place] CORONARY 03/19/2019 JUAN LICONA MD Ot I65. 23 OCCLUSION AND STENOSIS OF BILATERAL PASCUAL 03/19/2019 JUAN LICONA MD Ot J44. 9 CHRONIC OBSTRUCTIVE PULMONARY DISEASE, U 03/19/2019 JUAN LIOCNA MD Ot M79. 7 FIBROMYALGIA 03/19/2019 JUAN [...] 03/19/2019 JUAN LICONA MD, Ot Z79. 4 RESIDENTIAL (CURRENT) USE OF INSULIN 03/19/2019 JUAN LICONA MD Ot Z79. 82 SANFORIZING MACHINE OPERATOR (CURRENT) USE OF ASPIRIN 03/19/2019 JUAN LICONA MD, Ot Z79.899 OTHER SANFORIZING MACHINE OPERATOR (CURRENT) DRUG THERAPY 03/19/2019 JUAN LICONA MD, [...] Ot I25. 10 ATHSCL HEART DISEASE OF [place] CORONARY 03/20/2019 JUAN LICONA MD Ot I65. [...] 03/20/2019 JUAN LICONA MD, Ot Z79. 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 82 SANFORIZING MACHINE OPERATOR (CURRENT) USE OF ASPIRIN 03/20/2019 JUAN LICONA MD, Ot Z79.899 OTHER RESIDENTIAL (CURRENT) DRUG THERAPY 03/20/2019 JUAN LICONA MD, [...] Ot I25. 10 ATHSCL HEART DISEASE OF [place] CORONARY 03/25/2019 JUAN LICONA MD Ot I65. [...] 03/25/2019 JUAN LICONA MD, Ot Z79. 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 82 RESIDENTIAL (CURRENT) USE OF ASPIRIN 03/25/2019 JUAN LICONA MD, Ot Z79.899 OTHER RESIDENTIAL (CURRENT) DRUG THERAPY 03/25/2019 JUAN LICONA MD, [...] R07. 89 OTHER CHEST PAIN 04/10/2019 RUDOLPH KETN DO Ot Z45.2 ENCOUNTER FOR ADJUSTMENT AND [...] HISTORY OF NICOTINE DEPENDENCE 05/07/2019 LUKASZ CROWLEY THRESHING MACHINE OPERATOR Ot F12.10 CANNABIS ABUSE, UNCOMPLICATED 05/07/2019 LUKASZ CROWLEY THRESHING MACHINE OPERATOR Ot F17.210 NICOTINE DEPENDENCE, CIGARETTES, UNCOMPL 05/07/2019 LUKASZ CROWLEY THRESHING MACHINE OPERATOR Ot G47.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 05/07/2019 LUKASZ CROWLEY THRESHING MACHINE OPERATOR Ot J18.1 LOBAR PNEUMONIA, UNSPECIFIED ORGANISM 05/07/2019 LUKASZ CROWLEY THRESHING MACHINE OPERATOR Ot J30.9 ALLERGIC RHINITIS, UNSPECIFIED 05/07/2019 LUKASZ CROWLEY THRESHING MACHINE OPERATOR Ot J44.9 CHRONIC OBSTRUCTIVE PULMONARY DISEASE, U 05/07/2019 LUKASZ CROWLEY APRN Ot Z12.2 ENCNTR SCREEN FOR MALIGNANT NEOPLASM OF 05/07/2019 LUKASZ CROWLEY THRESHING MACHINE OPERATOR Ot Z99.81 DEPENDENCE ON SUPPLEMENTAL OXYGEN 05/08/2019 RUDOLPH KENT DO Ot Z45.2 ENCOUNTER FOR ADJUSTMENT AND MANAGEMENT 05/13/2019 RUDOLPH KENT DO Ot Z45.2 ENCOUNTER FOR ADJUSTMENT AND MANAGEMENT 05/15/2019 RUDOLPH KENT DO Ot Z45.2 ENCOUNTER FOR ADJUSTMENT AND MANAGEMENT 06/03/2019 LUKASZ CROWLEY APRN Ot F12.10 CANNABIS ABUSE, UNCOMPLICATED 06/03/2019 LUKASZ CROWLEY THRESHING MACHINE OPERATOR Ot F17.210 NICOTINE DEPENDENCE, CIGARETTES, UNCOMPL 06/03/2019 LUKASZ CROWLEY THRESHING MACHINE OPERATOR Ot G47.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 06/03/2019 LUKASZ CROWLEY THRESHING MACHINE OPERATOR Ot J18.1 LOBAR PNEUMONIA, UNSPECIFIED ORGANISM 06/03/2019 LUKASZ CROWLEY THRESHING MACHINE OPERATOR Ot J30.9 ALLERGIC RHINITIS, UNSPECIFIED 06/03/2019 LUKASZ CROWLEY THRESHING MACHINE OPERATOR Ot J44.9 CHRONIC OBSTRUCTIVE PULMONARY DISEASE, U 06/03/2019 LUKASZ CROWLEY THRESHING MACHINE OPERATOR Ot Z12.2 ENCNTR SCREEN FOR MALIGNANT NEOPLASM [...] VERDUGO DO Ot 787.20 DYSPHAGIA, UNSPECIFIED 06/05/2019 CHA VERDUGO DO Ot V72.84 EXAM [...] Ot 787.20 DYSPHAGIA, UNSPECIFIED 06/05/2019 JIMMY KENT LEATHER CLEANER Ot 486 PNEUMONIA, ORGANISM NOS 06/05/2019 JIMMY KENT LEATHER CLEANER Ot 789.00 ABDOMINAL PAIN, UNSPECIFIED SITE 06/05/2019 JIMMY KENT LEATHER CLEANER Ot 959.6 HIP THIGH INJURY NOS 06/05/2019 JIMMY KENT LEATHER CLEANER Ot E000.8 OTHER EXTERNAL CAUSE STATUS 06/05/2019 JIMMY KENT LEATHER CLEANER Ot E849.4 ACCID IN RECREATION AREA 06/05/2019 JIMMY KENT LEATHER CLEANER Ot E888.9 FALL NOS 06/05/2019 PETRA KEARNEY [...] DO Ot I25.10 ATHSCL HEART DISEASE OF [place] CORONARY 06/05/2019 RUDOLPH KENT DO Ot R07.9 [...] ROSA Ot I25.10 ATHSCL HEART DISEASE OF [place] CORONARY 06/05/2019 FRANDY DE LA ROSA Ot E11.9 TYPE 2 DIABETES MELLITUS WITHOUT COMPLIC 06/05/2019 FRANDY DE LA ROSA Ot E78.2 MIXED HYPERLIPIDEMIA 06/05/2019 FRANDY DE LA ROSA Ot I10 ESSENTIAL (PRIMARY) HYPERTENSION 06/05/2019 FRANDY DE LA ROSA Ot I25.10 ATHSCL HEART DISEASE OF [place] CORONARY 06/05/2019 LUKASZ CROWLEY APRN Ot F17.200 [...] UNSPECIFIED 06/05/2019 RUDOLPH KENT DO, Ot M85.852 [facility] DISRD OF BONE DENSITY AND STRUCTURE, 06/05/2019 [...] 89 OTHER CHEST PAIN 06/05/2019 LUKASZ CROWLEY THRESHING MACHINE OPERATOR Ot F12.10 CANNABIS ABUSE, UNCOMPLICATED 06/05/2019 LUKASZ CROWLEY THRESHING MACHINE OPERATOR Ot F17.210 NICOTINE DEPENDENCE, CIGARETTES, UNCOMPL 06/05/2019 LUKASZ CROWLEY APRN Ot G47.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 06/05/2019 LUKASZ CROWLEY THRESHING MACHINE OPERATOR Ot J18.1 LOBAR PNEUMONIA, UNSPECIFIED ORGANISM 06/05/2019 LUKASZ CROWLEY APRN Ot J30.9 ALLERGIC RHINITIS, UNSPECIFIED 06/05/2019 LUKASZ CROWLEY THRESHING MACHINE OPERATOR Ot J44.9 CHRONIC OBSTRUCTIVE PULMONARY DISEASE, U 06/05/2019 LUKASZ CROWLEY APRN Ot Z12.2 ENCNTR SCREEN FOR MALIGNANT NEOPLASM OF 06/05/2019 LUKASZ CROWLEY APRN Ot Z99.81 DEPENDENCE ON SUPPLEMENTAL OXYGEN 06/05/2019 RUDOLPH KENT DO Ot Z45.2 ENCOUNTER FOR ADJUSTMENT AND MANAGEMENT 06/05/2019 RUDOLPH KENT DO Ot Z45.2 ENCOUNTER FOR ADJUSTMENT AND MANAGEMENT 06/25/2019 LUKASZ CROWLEY THRESHING MACHINE OPERATOR Ot F12.10 CANNABIS ABUSE, UNCOMPLICATED 06/25/2019 LUKASZ CROWLEY APRN Ot F17.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, UNSPECIFIED, UNCOMP 06/25/2019 LUKASZ CROWLEY THRESHING MACHINE OPERATOR Ot G47.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 06/25/2019 LUKASZ CROWLEY THRESHING MACHINE OPERATOR Ot J30.9 ALLERGIC RHINITIS, UNSPECIFIED 06/25/2019 LUKASZ CROWLEY THRESHING MACHINE OPERATOR Ot J42 UNSPECIFIED CHRONIC BRONCHITIS 06/25/2019 LUKASZ CROWLEY THRESHING MACHINE OPERATOR Ot J44.9 CHRONIC OBSTRUCTIVE PULMONARY DISEASE, U [...] 06/25/2019 QING TAO DO Ot Z79. 82 SANFORIZING MACHINE OPERATOR (CURRENT) USE OF ASPIRIN 06/25/2019 QING TAO DO Ot Z79. 84 SANFORIZING MACHINE OPERATOR (CURRENT) USE OF ORAL HYPOGLYC 06/25/2019 QING TAO DO, Ot Z79.899 OTHER RESIDENTIAL (CURRENT) DRUG THERAPY 06/25/2019 QING TAO DO [...] DO Ot R09. 02 HYPOXEMIA 07/02/2019 QING TAO DO Ot R91. 1 SOLITARY PULMONARY NODULE 07/02/2019 QING TAO DO Ot Z79. 82 SANFORIZING MACHINE OPERATOR (CURRENT) USE OF ASPIRIN 07/02/2019 AISLINN DO QING Morales Ot Z79. 84 RESIDENTIAL (CURRENT) USE OF ORAL HYPOGLYC 07/02/2019 QING TAO DO Ot Z79.899 OTHER SANFORIZING MACHINE OPERATOR (CURRENT) DRUG THERAPY 07/02/2019 QING TAO DO Ot Z88. 1 ALLERGY STATUS TO OTHER ANTIBIOTIC AGENT 07/02/2019 AISLINN VILLALPANDO QNIG Morales Ot Z91.041 RADIOGRAPHIC DYE ALLERGY STATUS [...] Ot 787.20 DYSPHAGIA, UNSPECIFIED 07/16/2019 JIMMY KENT LEATHER CLEANER Ot 486 PNEUMONIA, ORGANISM NOS 07/16/2019 JIMMY KENT LEATHER CLEANER Ot 789.00 ABDOMINAL PAIN, UNSPECIFIED SITE 07/16/2019 JIMMY KENT LEATHER CLEANER Ot 959.6 HIP THIGH INJURY NOS 07/16/2019 JIMMY KENT LEATHER CLEANER Ot E000.8 OTHER EXTERNAL CAUSE STATUS 07/16/2019 JIMMY KENT LEATHER CLEANER Ot E849.4 ACCID IN RECREATION AREA 07/16/2019 [...] 10/25/2019 LUKAS NUNES MD Ot Z79. 4 RESIDENTIAL (CURRENT) USE OF INSULIN 10/25/2019 LUKAS NUNES MD Ot Z79. 82 SANFORIZING MACHINE OPERATOR (CURRENT) USE OF ASPIRIN 10/25/2019 LUKAS NUNES [...] MD, Ot I25.10 ATHSCL HEART DISEASE OF [place] CORONARY 12/10/2019 RAY MACKEY MD, Ot I50.9 HEART FAILURE, UNSPECIFIED 12/10/2019 RAY MACKEY MD, Ot J44.9 CHRONIC OBSTRUCTIVE PULMONARY DISEASE, U 12/10/2019 RAY MACKEY MD, Ot M79.7 FIBROMYALGIA 12/10/2019 RAY MACKEY MD, Ot Z68.30 BODY MASS INDEX (BMI) 30.0-30.9, ADULT 12/10/2019 RAY MACKEY MD, Ot Z79.82 SANFORIZING MACHINE OPERATOR (CURRENT) USE OF ASPIRIN 12/10/2019 RAY MACKEY MD, Ot Z79.84 RESIDENTIAL (CURRENT) USE OF ORAL HYPOGLYC 12/10/2019 RAY MACKEY MD, Ot Z79.899 OTHER SANFORIZING MACHINE OPERATOR (CURRENT) DRUG THERAPY 12/10/2019 RAY MACKEY MD, Ot Z82.49 FAMILY HX OF ISCHEM HEART DIS AND OTH DI 12/10/2019 RAY MACKEY MD, Ot Z83.3 FAMILY HISTORY OF DIABETES MELLITUS 12/10/2019 RAY MACKEY MD, Ot Z88.8 ALLERGY STATUS TO [facility] DRUG/MEDS/BIOL SUB 12/10/2019 RAY MACKEY MD, Ot [...] MD, Ot I25.10 ATHSCL HEART DISEASE OF [place] CORONARY 12/12/2019 RAY MACKEY MD, Ot I50.9 HEART FAILURE, UNSPECIFIED 12/12/2019 RAY MACKEY MD, Ot J44.9 CHRONIC OBSTRUCTIVE PULMONARY DISEASE, U 12/12/2019 RAY MACKEY MD, Ot M79.7 FIBROMYALGIA 12/12/2019 RAY MACKEY MD, Ot Z68.30 BODY MASS INDEX (BMI) 30.0-30.9, ADULT 12/12/2019 RAY MACKEY MD, Ot Z79.82 SANFORIZING MACHINE OPERATOR (CURRENT) USE OF ASPIRIN 12/12/2019 RAY MACKEY MD, Ot Z79.84 SANFORIZING MACHINE OPERATOR (CURRENT) USE OF ORAL HYPOGLYC 12/12/2019 RAY MACKEY MD, Ot Z79.899 OTHER SANFORIZING MACHINE OPERATOR (CURRENT) DRUG THERAPY 12/12/2019 RAY MACKEY MD, Ot Z82.49 FAMILY HX OF ISCHEM HEART DIS AND OTH DI 12/12/2019 RAY MACKEY MD, Ot Z83.3 FAMILY HISTORY OF DIABETES MELLITUS 12/12/2019 RAY MACKEY MD, Ot Z88.8 ALLERGY STATUS TO [facility] DRUG/MEDS/BIOL SUB 12/12/2019 RAY MACKEY MD, Ot [...] MD, Ot I25.10 ATHSCL HEART DISEASE OF [place] CORONARY 12/15/2019 RAY MACKEY MD, Ot I50.9 HEART FAILURE, UNSPECIFIED 12/15/2019 RAY MACKEY MD, Ot J44.9 CHRONIC OBSTRUCTIVE PULMONARY DISEASE, U 12/15/2019 RAY MACKEY MD, Ot M79.7 FIBROMYALGIA 12/15/2019 RAY MACKEY MD, Ot Z68.30 BODY MASS INDEX (BMI) 30.0-30.9, ADULT 12/15/2019 RAY MACKEY MD, Ot Z79.82 SANFORIZING MACHINE OPERATOR (CURRENT) USE OF ASPIRIN 12/15/2019 RAY MACKEY MD, Ot Z79.84 SANFORIZING MACHINE OPERATOR (CURRENT) USE OF ORAL HYPOGLYC 12/15/2019 RAY MACKEY MD, Ot Z79.899 OTHER RESIDENTIAL (CURRENT) DRUG THERAPY 12/15/2019 RAY MACKEY MD, [...] OTHER EXTERNAL CAUSE STATUS 12/22/2019 LUCINA DO [facility] Ot E928.9 ACCIDENT NOS 12/22/2019 LIVAN ALEXANDRE, [...] Ot 355. 5 TARSAL TUNNEL SYNDROME 12/22/2019 [facility] Ot V72.84 EXAM PRE-OPERATIVE NOS 12/22/2019 [facility] Ot 530.10 ESOPHAGITIS NOS 12/22/2019 [facility] Ot 553.3 DIAPHRAGMATIC HERNIA 12/22/2019 [facility] Ot 787.20 DYSPHAGIA, UNSPECIFIED 12/22/2019 JIMMY KENT LEATHER CLEANER Ot 486 PNEUMONIA, ORGANISM NOS 12/22/2019 JIMMY KENT LEATHER CLEANER Ot 789.00 ABDOMINAL PAIN, UNSPECIFIED SITE 12/22/2019 JIMMY KENT LEATHER CLEANER Ot 959.6 HIP THIGH INJURY NOS 12/22/2019 JIMMY KENT LEATHER CLEANER Ot E000.8 OTHER EXTERNAL CAUSE STATUS 12/22/2019 JIMMY KENT JOSE Ot E849.4 ACCID IN RECREATION AREA 12/22/2019 JIMMY KENT JOSE Ot E888.9 FALL NOS 12/22/2019 [facility] DC, PETRA Raymond Ot 724. 5 BACKACHE NOS 12/22/2019 [facility] DC, PETRA Raymond Ot 786. 50 CHEST PAIN NOS 12/22/2019 PILGRIM DC, PETRA Raymond Ot 724. 1 PAIN IN THORACIC SPINE 12/22/2019 PILGRIM DC, PETRA Raymond Ot 786. 50 CHEST PAIN NOS 12/22/2019 [place] DO, RUDOLPH Raymond Ot 414.00 CORON ATHEROSCLER NOS TYPE VESSEL, NATIV 12/22/2019 KENT DO, RUDOLPH Raymond Ot 786.50 CHEST PAIN NOS 12/22/2019 KENT DO, RUDOLPH Raymond Ot I25.10 ATHSCL HEART DISEASE OF [place] CORONARY 12/22/2019 KENT DO, RUDOLPH Raymond Ot R07.9 CHEST PAIN, UNSPECIFIED 12/22/2019 [facility] DO, CHA Ot R10.9 UNSPECIFIED ABDOMINAL PAIN 12/22/2019 [facility] DO, CHA Ot Z01.818 ENCOUNTER FOR OTHER PREPROCEDURAL EXAMIN 12/22/2019 LUCINA , CHA Ot 553.20 VENTRAL HERNIA NOS 12/22/2019 [facility], CHA Ot V81.5 SCREEN FOR NEPHROPATHY 12/22/2019 [...] ROSA Ot I25.10 ATHSCL HEART DISEASE OF [place] CORONARY 12/22/2019 FRANDY DE LA ROSA Ot E11.9 TYPE 2 DIABETES MELLITUS WITHOUT COMPLIC 12/22/2019 FRANDY DE LA ROSA Ot E78.2 MIXED HYPERLIPIDEMIA 12/22/2019 FRANDY DE LA ROSA Ot I10 ESSENTIAL (PRIMARY) HYPERTENSION 12/22/2019 FRANDY DE LA ROSA Ot I25.10 ATHSCL HEART DISEASE OF [place] CORONARY 12/22/2019 LUKASZ CROWLEY APRN Ot F17.200 [...] ALLERGIC RHINITIS, UNSPECIFIED 12/22/2019 CARLINE, LUKASZ E THRESHING MACHINE OPERATOR Ot J42 UNSPECIFIED CHRONIC BRONCHITIS 12/22/2019 LUKASZ CROWLEY THRESHING MACHINE OPERATOR Ot J44.9 CHRONIC OBSTRUCTIVE PULMONARY DISEASE, U 12/22/2019 LUKASZ CROWLEY THRESHING MACHINE OPERATOR Ot Z99.81 DEPENDENCE ON SUPPLEMENTAL OXYGEN 12/22/2019 LUKASZ CROWLEY THRESHING MACHINE OPERATOR Ot F12.10 CANNABIS ABUSE, UNCOMPLICATED 12/22/2019 LUKASZ CROWLEY THRESHING MACHINE OPERATOR Ot F17.210 NICOTINE DEPENDENCE, CIGARETTES, UNCOMPL 12/22/2019 LUKASZ CROWLEY THRESHING MACHINE OPERATOR Ot G47.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 12/22/2019 LUKASZ CROWLEY THRESHING MACHINE OPERATOR Ot J18.1 LOBAR PNEUMONIA, UNSPECIFIED ORGANISM 12/22/2019 LUKASZ CROWLEY APRN Ot J30.9 ALLERGIC RHINITIS, UNSPECIFIED 12/22/2019 LUKASZ CROWLEY THRESHING MACHINE OPERATOR Ot J44.9 CHRONIC OBSTRUCTIVE PULMONARY DISEASE, U 12/22/2019 LUKASZ CROWLEY THRESHING MACHINE OPERATOR Ot Z12.2 ENCNTR SCREEN FOR MALIGNANT NEOPLASM OF 12/22/2019 LUKASZ CROWLEY THRESHING MACHINE OPERATOR Ot Z99.81 DEPENDENCE ON SUPPLEMENTAL OXYGEN 12/22/2019 [...] DIANA DO Ot 530.10 ESOPHAGITIS NOS 12/22/2019 LUCINACAH DIANA DO Ot 553.3 DIAPHRAGMATIC HERNIA 12/22/2019 LUCINACHA DIANA DO Ot 787.20 DYSPHAGIA, UNSPECIFIED 12/22/2019 JIMMY KENT LEATHER CLEANER Ot 486 PNEUMONIA, ORGANISM NOS 12/22/2019 JIMMY KENT LEATHER CLEANER Ot 789.00 ABDOMINAL PAIN, UNSPECIFIED SITE 12/22/2019 JIMMY KENT LEATHER CLEANER Ot 959.6 HIP THIGH INJURY NOS 12/22/2019 JIMMY KENT LEATHER CLEANER Ot E000.8 OTHER EXTERNAL CAUSE STATUS 12/22/2019 JIMMY KENT LEATHER CLEANER Ot E849.4 ACCID IN RECREATION AREA 12/22/2019 KENTJIMMY LEATHER CLEANER Ot E888.9 FALL NOS 12/22/2019 PILGRIM DC, PETRA Raymond Ot 724. 5 BACKACHE NOS 12/22/2019 PILGRIM DC, PETRA Raymond Ot 786. 50 CHEST PAIN NOS 12/22/2019 PILGRIM DC, PETRA Raymond Ot 724. 1 PAIN IN THORACIC SPINE 12/22/2019 [facility], PETRA Raymond Ot 786. 50 CHEST PAIN NOS 12/22/2019 RICHFIELD DO, RUDOLPH Raymond Ot 414.00 CORON ATHEROSCLER NOS TYPE VESSEL, NATIV 12/22/2019 KENT DO, RUDOLPH Raymond Ot 786.50 CHEST PAIN NOS 12/22/2019 KENT DO, RUDOLPH Raymond Ot I25.10 ATHSCL HEART DISEASE OF [place] CORONARY 12/22/2019 KETN DO, RUDOLPH Raymond Ot R07.9 CHEST PAIN, UNSPECIFIED 12/22/2019 [facility] DO, CHA Ot R10.9 UNSPECIFIED ABDOMINAL PAIN 12/22/2019 [facility] DO, CHA Ot Z01.818 ENCOUNTER FOR OTHER PREPROCEDURAL EXAMIN 12/22/2019 [facility] DO, CHA Ot 553.20 VENTRAL HERNIA NOS 12/22/2019 [facility] DO, CHA Ot V81.5 SCREEN FOR [...] ROSA Ot I25.10 ATHSCL HEART DISEASE OF [place] CORONARY 12/22/2019 FRANDY DE LA ROSA Ot E11.9 TYPE 2 DIABETES MELLITUS WITHOUT COMPLIC 12/22/2019 FRANDY DE LA ROSA Ot E78.2 MIXED HYPERLIPIDEMIA 12/22/2019 FRANDY DE LA ROSA Ot I10 ESSENTIAL (PRIMARY) HYPERTENSION 12/22/2019 FRANDY DE LA ROSA Ot I25.10 ATHSCL HEART DISEASE OF [place] CORONARY 12/22/2019 LUKASZ CROWLEY APRN Ot F17.200 [...] DO, Ot Z78.0 ASYMPTOMATIC MENOPAUSAL STATE 12/22/2019 EANRESTINE ALEXANDRE, RAY Davis Ot L98 .9 DISORDER [...] DEPENDENCE ON SUPPLEMENTAL OXYGEN 12/22/2019 LUKASZ CROWLEY THRESHING MACHINE OPERATOR Ot F12.10 CANNABIS ABUSE, UNCOMPLICATED 12/22/2019 LUKASZ CROWLEY THRESHING MACHINE OPERATOR Ot F17.210 NICOTINE DEPENDENCE, CIGARETTES, UNCOMPL 12/22/2019 [...] Ot 787.20 DYSPHAGIA, UNSPECIFIED 01/17/2020 JIMMY KENT LEATHER CLEANER Ot 486 PNEUMONIA, ORGANISM NOS 01/17/2020 JIMMY KENT LEATHER CLEANER Ot 789.00 ABDOMINAL PAIN, UNSPECIFIED SITE 01/17/2020 JIMMY KENT LEATHER CLEANER Ot 959.6 HIP THIGH INJURY NOS 01/17/2020 JIMMY KENT LEATHER CLEANER Ot E000.8 OTHER EXTERNAL CAUSE STATUS 01/17/2020 JIMMY KENT LEATHER CLEANER Ot E849.4 ACCID IN RECREATION AREA 01/17/2020 JIMMY KENT LEATHER CLEANER Ot E888.9 FALL NOS 01/17/2020 PETRA KEARNEY DC Ot 724. 5 BACKACHE NOS 01/17/2020 PILGRIM DC, PETRA Raymond Ot 786. 50 CHEST PAIN NOS 01/17/2020 PILGRIM DC, PETRA Raymond Ot 724. 1 PAIN IN THORACIC SPINE 01/17/2020 PILGRIM DC, PETRA Raymond Ot 786. 50 CHEST PAIN NOS 01/17/2020 KENT DO, RUDOLPH Raymond Ot 414.00 CORON ATHEROSCLER NOS TYPE VESSEL, NATIV 01/17/2020 KENT DO, RUDOLPH Raymond Ot 786.50 CHEST PAIN NOS 01/17/2020 KENT DO, RUDOLPH Raymond Ot I25.10 ATHSCL HEART DISEASE OF [place] CORONARY 01/17/2020 KENT DO, RUDOLPH Raymond Ot R07.9 CHEST PAIN, UNSPECIFIED 01/17/2020 [facility] DO, CHA Ot R10.9 UNSPECIFIED ABDOMINAL PAIN 01/17/2020 [facility] DO, CHA Ot Z01.818 ENCOUNTER FOR OTHER PREPROCEDURAL EXAMIN 01/17/2020 LUCINA VILLALPANDO, CHA Ot 553.20 VENTRAL HERNIA NOS 01/17/2020 [facility] DO, CHA Ot V81.5 SCREEN FOR [...] ROSA Ot I25.10 ATHSCL HEART DISEASE OF [place] CORONARY 01/17/2020 FRANDY DE LA ROSA Ot E11.9 TYPE 2 DIABETES MELLITUS WITHOUT COMPLIC 01/17/2020 FRANDY DE LA ROSA Ot E78.2 MIXED HYPERLIPIDEMIA 01/17/2020 FRANDY DE LA ROSA Ot I10 ESSENTIAL (PRIMARY) HYPERTENSION 01/17/2020 FRANDY DE LA ROSA Ot I25.10 ATHSCL HEART DISEASE OF [place] CORONARY 01/17/2020 LUKASZ CROWLEY APRN Ot F17.200 [...] SLEEP RELATED NONOBSTRUCTIVE ALVEOL 01/17/2020 LUKASZ CROWLEY THRESHING MACHINE OPERATOR Ot J18.1 LOBAR PNEUMONIA, UNSPECIFIED ORGANISM 01/17/2020 [...] Ot 787.20 DYSPHAGIA, UNSPECIFIED 01/17/2020 JIMMY KENT LEATHER CLEANER Ot 486 PNEUMONIA, ORGANISM NOS 01/17/2020 JIMMY KENT LEATHER CLEANER Ot 789.00 ABDOMINAL PAIN, UNSPECIFIED SITE 01/17/2020 JIMMY KENT LEATHER CLEANER Ot 959.6 HIP THIGH INJURY NOS 01/17/2020 JIMMY KENT LEATHER CLEANER Ot E000.8 OTHER EXTERNAL CAUSE STATUS 01/17/2020 JIMMY KENT LEATHER CLEANER Ot E849.4 ACCID IN RECREATION AREA 01/17/2020 JIMMY KENT LEATHER CLEANER Ot E888.9 FALL NOS 01/17/2020 CAIO DC, [...] Raymond Ot I25.10 ATHSCL HEART DISEASE OF [place] CORONARY 01/17/2020 KENT DO, RUDOLPH Raymond Ot R07.9 CHEST PAIN, UNSPECIFIED 01/17/2020 LUCINA DO, MEDARDOROUTIE Ot R10.9 UNSPECIFIED ABDOMINAL PAIN 01/17/2020 LUCINA DO, DIANNTIE Ot Z01.818 ENCOUNTER FOR OTHER PREPROCEDURAL EXAMIN 01/17/2020 LUCINA DO, CHA Ot 553.20 VENTRAL HERNIA NOS 01/17/2020 [facility] DO, CHA Ot V81.5 SCREEN FOR [...] ROSA Ot I25.10 ATHSCL HEART DISEASE OF [place] CORONARY 01/17/2020 FRANDY DE LA ROSA Ot E11.9 TYPE 2 DIABETES MELLITUS WITHOUT COMPLIC 01/17/2020 FRANDY DE LA ROSA Ot E78.2 MIXED HYPERLIPIDEMIA 01/17/2020 FRANDY DE LA ROSA Ot I10 ESSENTIAL (PRIMARY) HYPERTENSION 01/17/2020 FRANDY DE LA ROSA Ot I25.10 ATHSCL HEART DISEASE OF [place] CORONARY 01/17/2020 ULKASZ CROWLEY APRN Ot F17.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, UNSPECIFIED, [...] F12.10 CANNABIS ABUSE, UNCOMPLICATED 01/17/2020 LUKASZ CROWLEY THRESHING MACHINE OPERATOR Ot F17.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, UNSPECIFIED, UNCOMP 01/17/2020 LUKASZ CROWLEY THRESHING MACHINE OPERATOR Ot G47.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 01/17/2020 LUKASZ CROWLEY APRN Ot J30.9 ALLERGIC RHINITIS, UNSPECIFIED 01/17/2020 LUKASZ CROWLEY THRESHING MACHINE OPERATOR Ot J42 UNSPECIFIED CHRONIC BRONCHITIS 01/17/2020 LUKASZ CROWLEY APRN Ot J44.9 CHRONIC OBSTRUCTIVE PULMONARY DISEASE, U 01/17/2020 LUKASZ CROWLEY THRESHING MACHINE OPERATOR Ot Z99.81 DEPENDENCE ON SUPPLEMENTAL OXYGEN 01/17/2020 LUKASZ CROWLEY THRESHING MACHINE OPERATOR Ot F12.10 CANNABIS ABUSE, UNCOMPLICATED 01/17/2020 LUKASZ CROWLEY THRESHING MACHINE OPERATOR Ot F17.210 NICOTINE DEPENDENCE, CIGARETTES, UNCOMPL 01/17/2020 [...] 355. 5 TARSAL TUNNEL SYNDROME 01/17/2020 LUCINACHA DIANA DO Ot V72.84 EXAM PRE-OPERATIVE NOS 01/17/2020 LUCINA CHA VILLALPANDO Ot 530.10 ESOPHAGITIS NOS 01/17/2020 LUCINA CHA VILLALPANDO Ot 553.3 DIAPHRAGMATIC HERNIA 01/17/2020 LUCINA CHA VILLALPANDO Ot 787.20 DYSPHAGIA, UNSPECIFIED 01/17/2020 JIMMY KENT LEATHER CLEANER Ot 486 PNEUMONIA, ORGANISM NOS 01/17/2020 JIMMY KENT LEATHER CLEANER Ot 789.00 ABDOMINAL PAIN, UNSPECIFIED SITE 01/17/2020 JIMMY KENT LEATHER CLEANER Ot 959.6 HIP THIGH INJURY NOS 01/17/2020 JIMMY KENT LEATHER CLEANER Ot E000.8 OTHER EXTERNAL CAUSE STATUS 01/17/2020 JIMMY KENT LEATHER CLEANER Ot E849.4 ACCID IN RECREATION AREA 01/17/2020 JIMMY KENT LEATHER CLEANER Ot E888.9 FALL NOS 01/17/2020 CAIO NICKERSON, PETRA Raymond Ot 724. 5 BACKACHE NOS 01/17/2020 PETRA KEARNEY DC Ot 786. 50 CHEST PAIN NOS 01/17/2020 PETRA KEARNEY DC Ot 724. 1 PAIN IN THORACIC SPINE 01/17/2020 PETRA KEARNEY DC Ot 786. 50 CHEST PAIN NOS 01/17/2020 RUDOLPH KENT DO Ot 414.00 CORON ATHEROSCLER NOS TYPE VESSEL, NATIV 01/17/2020 [facility], RUDOLPH Raymond Ot 786.50 CHEST PAIN NOS 01/17/2020 RICHFIELD , RUDOLPH Raymond Ot I25.10 ATHSCL HEART DISEASE OF [place] CORONARY 01/17/2020 KENT , RUDOLPH Raymond Ot R07.9 CHEST PAIN, UNSPECIFIED 01/17/2020 [facility], CHA Ot R10.9 UNSPECIFIED ABDOMINAL PAIN 01/17/2020 [facility], CHA Ot Z01.818 ENCOUNTER FOR OTHER PREPROCEDURAL EXAMIN 01/17/2020 [facility], CHA Ot 553.20 VENTRAL HERNIA NOS 01/17/2020 [facility], CHA Ot V81.5 SCREEN FOR NEPHROPATHY 01/17/2020 [...] ROSA Ot I25.10 ATHSCL HEART DISEASE OF [place] CORONARY 01/17/2020 FRANDY DE LA ROSA Ot E11.9 TYPE 2 DIABETES MELLITUS WITHOUT COMPLIC 01/17/2020 FRANDY DE [place] ROSA Ot E78.2 MIXED HYPERLIPIDEMIA 01/17/2020 FRANDY DE LA ROSA Ot I10 ESSENTIAL (PRIMARY) HYPERTENSION 01/17/2020 FRANDY DE LA ROSA Ot I25.10 ATHSCL HEART DISEASE OF [place] CORONARY 01/17/2020 LUKASZ CROWLEY APRN Ot F17.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, UNSPECIFIED, UNCOMP 01/17/2020 LUKASZ CROWLEY APRN Ot J44.9 CHRONIC OBSTRUCTIVE PULMONARY DISEASE, U 01/17/2020 [facility] M94.8X6 OTHER SPECIFIED DISORDERS OF [place]ARTILAGE, 01/17/2020 YOLI VILLALPANDO, RUDOLPH Raymond Ot S83.242A OTH TEAR OF MEDIAL MENISCUS, CURRENT INJ 01/17/2020 YOLI VILLALPANDO, RUDOLPH Raymond Ot S83.282A OTH TEAR OF LAT MENSC, CURRENT INJURY, L 01/17/2020 YOIL VILLALPANDO, RUDOLPH Raymond Ot X58.XXXA EXPOSURE TO [...] Ot M46.86 OTHER SPECIFIED INFLAMMATORY SPONDYLOPAT 01/17/2020 YOLI VLILALPANDO, RUDOLPH Raymond Ot M47.27 OTHER SPONDYLOSIS WITH [...] 89 OTHER CHEST PAIN 01/17/2020 LUKASZ CROWLEY THRESHING MACHINE OPERATOR Ot F12.10 CANNABIS ABUSE, UNCOMPLICATED 01/17/2020 LUKASZ CROWLEY THRESHING MACHINE OPERATOR Ot F17.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, UNSPECIFIED, UNCOMP 01/17/2020 LUKASZ CROWLEY THRESHING MACHINE OPERATOR Ot G47.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 01/17/2020 LUKASZ CROWLEY THRESHING MACHINE OPERATOR Ot J30.9 ALLERGIC RHINITIS, UNSPECIFIED 01/17/2020 LUKASZ CROWLEY THRESHING MACHINE OPERATOR Ot J42 UNSPECIFIED CHRONIC BRONCHITIS 01/17/2020 LUKASZ CROWLEY THRESHING MACHINE OPERATOR Ot J44.9 CHRONIC OBSTRUCTIVE PULMONARY DISEASE, U 01/17/2020 LUKASZ CROWLEY THRESHING MACHINE OPERATOR Ot Z99.81 DEPENDENCE ON SUPPLEMENTAL OXYGEN 01/17/2020 LUKASZ CROWLEY THRESHING MACHINE OPERATOR Ot F12.10 CANNABIS ABUSE, UNCOMPLICATED 01/17/2020 LUKASZ CROWLEY THRESHING MACHINE OPERATOR Ot F17.210 NICOTINE DEPENDENCE, CIGARETTES, UNCOMPL 01/17/2020 LUKASZ CROWLEY THRESHING MACHINE OPERATOR Ot G47.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 [...] Ot 397. 0 TRICUSPID VALVE DISEASE 01/17/2020 UJAN LICONA MD Ot 424. 0 MITRAL VALVE [...] Ot 496 CHR AIRWAY OBSTRUCT NEC 01/17/2020 IQNG TAO DO Ot 786. 09 RESPIRATORY ABNORM NEC 01/17/2020 KASIE DPM, ANDREA Q Ot 355. 5 TARSAL TUNNEL SYNDROME 01/17/2020 LUCINA CHA VILLALPANDO Ot V72.84 EXAM PRE-OPERATIVE NOS 01/17/2020 LUCINA CHA VILLALPANDO Ot 530.10 ESOPHAGITIS NOS 01/17/2020 LUCINA CHA VILLALPANDO Ot 553.3 DIAPHRAGMATIC HERNIA 01/17/2020 CHA VERDUGO DO Ot 787.20 DYSPHAGIA, UNSPECIFIED 01/17/2020 JIMMY KENT LEATHER CLEANER Ot 486 PNEUMONIA, ORGANISM NOS 01/17/2020 JIMMY KENT LEATHER CLEANER Ot 789.00 ABDOMINAL PAIN, UNSPECIFIED SITE 01/17/2020 JIMMY KENT LEATHER CLEANER Ot 959.6 HIP THIGH INJURY NOS 01/17/2020 JIMMY KENT LEATHER CLEANER Ot E000.8 OTHER EXTERNAL CAUSE STATUS 01/17/2020 JIMMY KENT LEATHER CLEANER Ot E849.4 ACCID IN RECREATION AREA 01/17/2020 JIMMY KENT LEATHER CLEANER Ot E888.9 FALL NOS 01/17/2020 CAIOPETRA DENSON [...] DO Ot I25.10 ATHSCL HEART DISEASE OF [place] CORONARY 01/17/2020 RUDOLPH KENT DO Ot R07.9 CHEST PAIN, UNSPECIFIED 01/17/2020 [facility], CHA Ot R10.9 UNSPECIFIED ABDOMINAL PAIN 01/17/2020 [facility] Ot Z01.818 ENCOUNTER FOR OTHER PREPROCEDURAL EXAMIN 01/17/2020 [facility] CHA VILLALPANDO Ot 553.20 VENTRAL HERNIA NOS 01/17/2020 [facility], CHA Ot V81.5 SCREEN FOR NEPHROPATHY 01/17/2020 [...] ROSA Ot I25.10 ATHSCL HEART DISEASE OF [place] CORONARY 01/17/2020 FRANDY DE LA ROSA Ot E11.9 TYPE 2 DIABETES MELLITUS WITHOUT COMPLIC 01/17/2020 FRANDY DE [place] ROSA Ot E78.2 MIXED HYPERLIPIDEMIA 01/17/2020 FRANDY DE LA ROSA Ot I10 ESSENTIAL (PRIMARY) HYPERTENSION 01/17/2020 FRANDY DE LA ROSA Ot I25.10 ATHSCL HEART DISEASE OF [place] CORONARY 01/17/2020 LUKASZ CROWLEY APRN Ot F17.200 [...] 89 OTHER CHEST PAIN 01/17/2020 LUKASZ CROWLEY THRESHING MACHINE OPERATOR Ot F12.10 CANNABIS ABUSE, UNCOMPLICATED 01/17/2020 LUKASZ CROWLEY THRESHING MACHINE OPERATOR Ot F17.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, UNSPECIFIED, UNCOMP 01/17/2020 LUKASZ CROWLEY THRESHING MACHINE OPERATOR Ot G47.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 01/17/2020 LUKASZ CROWLEY THRESHING MACHINE OPERATOR Ot J30.9 ALLERGIC RHINITIS, UNSPECIFIED 01/17/2020 LUKASZ CROWLEY THRESHING MACHINE OPERATOR Ot J42 UNSPECIFIED CHRONIC BRONCHITIS 01/17/2020 LUKASZ CROWLEY THRESHING MACHINE OPERATOR Ot J44.9 CHRONIC OBSTRUCTIVE PULMONARY DISEASE, U 01/17/2020 LUKASZ CROWLEY THRESHING MACHINE OPERATOR Ot Z99.81 DEPENDENCE ON SUPPLEMENTAL OXYGEN 01/17/2020 LUKASZ CROWLEY THRESHING MACHINE OPERATOR Ot F12.10 CANNABIS ABUSE, UNCOMPLICATED 01/17/2020 LUKASZ CROWLEY THRESHING MACHINE OPERATOR Ot F17.210 NICOTINE DEPENDENCE, CIGARETTES, UNCOMPL 01/17/2020 LUKASZ CROWLEY THRESHING MACHINE OPERATOR Ot G47.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 01/17/2020 LUKASZ CROWLEY THRESHING MACHINE OPERATOR Ot J18.1 LOBAR PNEUMONIA, UNSPECIFIED ORGANISM 01/17/2020 LUKASZ CROWLEY THRESHING MACHINE OPERATOR Ot J30.9 ALLERGIC RHINITIS, UNSPECIFIED 01/17/2020 LUKASZ [...] Ot 355. 5 TARSAL TUNNEL SYNDROME 01/19/2020 LUCIAN CHA VILLALPANDO Ot V72.84 EXAM PRE-OPERATIVE NOS 01/19/2020 [facility] CHA VILLALPANDO Ot 530.10 ESOPHAGITIS NOS 01/19/2020 [facility] CHA VILLALPANDO Ot 553.3 DIAPHRAGMATIC HERNIA 01/19/2020 LUCINA CHA VILLALPANDO Ot 787.20 DYSPHAGIA, UNSPECIFIED 01/19/2020 JIMMY KENT LEATHER CLEANER Ot 486 PNEUMONIA, ORGANISM NOS 01/19/2020 JIMMY KENT LEATHER CLEANER Ot 789.00 ABDOMINAL PAIN, UNSPECIFIED SITE 01/19/2020 JIMMY KENT LEATHER CLEANER Ot 959.6 HIP THIGH INJURY NOS 01/19/2020 JIMMY KENT LEATHER CLEANER Ot E000.8 OTHER EXTERNAL CAUSE STATUS 01/19/2020 JIMMY KENT LEATHER CLEANER Ot E849.4 ACCID IN RECREATION AREA 01/19/2020 JIMMY KENT LEATHER CLEANER Ot E888.9 FALL NOS 01/19/2020 PETRA KEARNEY [...] DO Ot I25.10 ATHSCL HEART DISEASE OF [place] CORONARY 01/19/2020 RUDOLPH KENT DO Ot R07.9 CHEST PAIN, UNSPECIFIED 01/19/2020 LUCINA DOCHA Ot R10.9 UNSPECIFIED ABDOMINAL PAIN 01/19/2020 LUCINA DOCHA Ot Z01.818 ENCOUNTER FOR OTHER PREPROCEDURAL EXAMIN 01/19/2020 LUCINA DOCHA Ot 553.20 VENTRAL HERNIA NOS 01/19/2020 [facility] CHA Ot V81.5 SCREEN FOR NEPHROPATHY [...] ROSA Ot I25.10 ATHSCL HEART DISEASE OF [place] CORONARY 01/19/2020 FRANDY DE LA ROSA Ot E11.9 TYPE 2 DIABETES MELLITUS WITHOUT COMPLIC 01/19/2020 FRANDY DE LA ROSA Ot E78.2 MIXED HYPERLIPIDEMIA 01/19/2020 FRANDY DE LA ROSA Ot I10 ESSENTIAL (PRIMARY) HYPERTENSION 01/19/2020 FRANDY DE LA ROSA Ot I25.10 ATHSCL HEART DISEASE OF [place] CORONARY 01/19/2020 LUKASZ CROWLEY APRN Ot F17.200 [...] 01/19/2020 YOLI VILLALPANDO, RUDOLPH Raymond Ot M85.852 [facility] DISRD OF BONE DENSITY AND STRUCTURE, 01/19/2020 [...] DO, Ot M43.16 SPONDYLOLISTHESIS, LUMBAR REGION 01/19/2020 YOLI VILLALPANDO, RUDOLPH Raymond Ot M46.86 OTHER [...] OTHER CHEST PAIN 01/19/2020 CARMELINA CROWLEYINE E THRESHING MACHINE OPERATOR Ot F12.10 CANNABIS ABUSE, UNCOMPLICATED 01/19/2020 CARMELNIA CROWLEYINE E THRESHING MACHINE OPERATOR Ot F17.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, UNSPECIFIED, UNCOMP 01/19/2020 CARMELINA CROWLEYINE E THRESHING MACHINE OPERATOR Ot G47.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 01/19/2020 CARMELINA CROWLEYINE E THRESHING MACHINE OPERATOR Ot J30.9 ALLERGIC RHINITIS, UNSPECIFIED 01/19/2020 CARMELINA CROWLEYINE E THRESHING MACHINE OPERATOR Ot J42 UNSPECIFIED CHRONIC BRONCHITIS 01/19/2020 CARMELINA CROWLEYINE E THRESHING MACHINE OPERATOR Ot J44.9 CHRONIC OBSTRUCTIVE PULMONARY DISEASE, U 01/19/2020 CARMELINA CROWLEYINE E THRESHING MACHINE OPERATOR Ot Z99.81 DEPENDENCE ON SUPPLEMENTAL OXYGEN 01/19/2020 CARMELINA CROWLEYINE E THRESHING MACHINE OPERATOR Ot F12.10 CANNABIS ABUSE, UNCOMPLICATED 01/19/2020 CARLINE LUKASZ E THRESHING MACHINE OPERATOR Ot F17.210 NICOTINE DEPENDENCE, CIGARETTES, UNCOMPL 01/19/2020 CARMELINA CROWLEYINE E THRESHING MACHINE OPERATOR Ot G47.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 01/19/2020 CARMELINA CROWLEYINE E THRESHING MACHINE OPERATOR Ot J18.1 LOBAR PNEUMONIA, UNSPECIFIED ORGANISM 01/19/2020 CARMELINA CROWLEYINE E THRESHING MACHINE OPERATOR Ot J30.9 ALLERGIC RHINITIS, UNSPECIFIED 01/19/2020 CARMELINA CROWLEYINE E THRESHING MACHINE OPERATOR Ot J44.9 CHRONIC OBSTRUCTIVE PULMONARY DISEASE, U 01/19/2020 CARMELINA CROWLEYINE E THRESHING MACHINE OPERATOR Ot Z12.2 ENCNTR SCREEN FOR MALIGNANT NEOPLASM [...] Ot V58.81 FIT /ADJ VASCULAR CATHETER [facility] OPN WND ANTERIOR ABDOMEN 01/20/2020 [facility] Ot E000.8 OTHER EXTERNAL CAUSE STATUS 01/20/2020 [facility] CHA VILLALPANDO Ot E928.9 ACCIDENT NOS [...] Ot 355. 5 TARSAL TUNNEL SYNDROME 01/20/2020 [facility], CHA Ot V72.84 EXAM PRE-OPERATIVE NOS 01/20/2020 [facility], CHA Ot 530.10 ESOPHAGITIS NOS 01/20/2020 [facility], DIANNTIE Ot 553.3 DIAPHRAGMATIC HERNIA 01/20/2020 [facility], MEDARDOROUTIE Ot 787.20 DYSPHAGIA, UNSPECIFIED 01/20/2020 JIMMY KENT LEATHER CLEANER Ot 486 PNEUMONIA, ORGANISM NOS 01/20/2020 JIMMY KENT LEATHER CLEANER Ot 789.00 ABDOMINAL PAIN, UNSPECIFIED SITE 01/20/2020 ADAMA KENTIA Jr LEATHER CLEANER Ot 959.6 HIP THIGH INJURY NOS 01/20/2020 ADAMA KENTIA Jr LEATHER CLEANER Ot E000.8 OTHER EXTERNAL CAUSE STATUS 01/20/2020 ADAMA KENTIA Jr LEATHER CLEANER Ot E849.4 ACCID IN RECREATION AREA 01/20/2020 ADAMA KENTIA Jr LEATHER CLEANER Ot E888.9 FALL NOS 01/20/2020 [facility] KRISHAN, PETRA Raymond Ot 724. 5 BACKACHE NOS 01/20/2020 [facility] PETRA NICKERSON Ot 786. 50 CHEST PAIN NOS 01/20/2020 [facility] PETRA NICKERSON Ot 724. 1 PAIN IN THORACIC SPINE 01/20/2020 [facility] PETRA NICKERSON Ot 786. 50 CHEST PAIN NOS 01/20/2020 RUDOLPH KENT DO Ot 414.00 CORON ATHEROSCLER NOS TYPE VESSEL, NATIV 01/20/2020 RUDOLPH KENT DO Ot 786.50 CHEST PAIN NOS 01/20/2020 RUDOLPH KENT DO Ot I25.10 ATHSCL HEART DISEASE OF [place] CORONARY 01/20/2020 RUDOLPH KENT DO Ot R07.9 CHEST PAIN, UNSPECIFIED 01/20/2020 [facility] R10.9 UNSPECIFIED ABDOMINAL PAIN 01/20/2020 [facility] Ot Z01.818 ENCOUNTER FOR OTHER PREPROCEDURAL EXAMIN [...] 2 DIABETES MELLITUS WITHOUT COMPLIC 01/20/2020 [facility], FRANDY Aviles Ot E78.2 MIXED HYPERLIPIDEMIA 01/20/2020 [facility] FRANDY Aviles Ot I10 ESSENTIAL (PRIMARY) HYPERTENSION 01/20/2020 [facility], FRANDY Aviles Ot I25.10 ATHSCL HEART DISEASE OF [place] CORONARY 01/20/2020 [facility], FRANDY Aviles Ot E11.9 TYPE 2 DIABETES MELLITUS WITHOUT COMPLIC 01/20/2020 [facility], FRANDY Aviles Ot E78.2 MIXED HYPERLIPIDEMIA 01/20/2020 [facility], FRANDY Aviles Ot I10 ESSENTIAL (PRIMARY) HYPERTENSION 01/20/2020 [facility], FRANDY Aviles Ot I25.10 ATHSCL HEART DISEASE OF [place] CORONARY 01/20/2020 LUKASZ CROWLEY APRN Ot F17.200 [...] 01/20/2020 YOLI VILLALPANDO, RUDOLPH Raymond Ot M85.852 [facility] DISRD OF BONE DENSITY AND STRUCTURE, 01/20/2020 [...] OTHER CHEST PAIN 01/20/2020 CARLINE, LUKASZ E THRESHING MACHINE OPERATOR Ot F12.10 CANNABIS ABUSE, UNCOMPLICATED 01/20/2020 CARLINE, LUKASZ E THRESHING MACHINE OPERATOR Ot F17.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, UNSPECIFIED, UNCOMP 01/20/2020 CARLINE, LUKASZ E THRESHING MACHINE OPERATOR Ot G47.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 01/20/2020 CARLINE, LUKASZ E THRESHING MACHINE OPERATOR Ot J30.9 ALLERGIC RHINITIS, UNSPECIFIED 01/20/2020 CARLINE, LUKASZ E THRESHING MACHINE OPERATOR Ot J42 UNSPECIFIED CHRONIC BRONCHITIS 01/20/2020 CARLINE, LUKASZ E THRESHING MACHINE OPERATOR Ot J44.9 CHRONIC OBSTRUCTIVE PULMONARY DISEASE, U 01/20/2020 CARLINE, LUKASZ E THRESHING MACHINE OPERATOR Ot Z99.81 DEPENDENCE ON SUPPLEMENTAL OXYGEN 01/20/2020 CARLINE, LUKASZ E THRESHING MACHINE OPERATOR Ot F12.10 CANNABIS ABUSE, UNCOMPLICATED 01/20/2020 CARLINE, LUKASZ E THRESHING MACHINE OPERATOR Ot F17.210 NICOTINE DEPENDENCE, CIGARETTES, UNCOMPL 01/20/2020 CARLINE, LUKASZ E THRESHING MACHINE OPERATOR Ot G47.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 01/20/2020 CARLINE, LUKASZ E THRESHING MACHINE OPERATOR Ot J18.1 LOBAR PNEUMONIA, UNSPECIFIED ORGANISM 01/20/2020 CARLINE, LUKASZ E THRESHING MACHINE OPERATOR Ot J30.9 ALLERGIC RHINITIS, UNSPECIFIED 01/20/2020 CARLINE, LUKASZ E THRESHING MACHINE OPERATOR Ot J44.9 CHRONIC OBSTRUCTIVE PULMONARY DISEASE, U 01/20/2020 CARLINE, LUKASZ E THRESHING MACHINE OPERATOR Ot Z12.2 ENCNTR SCREEN FOR MALIGNANT NEOPLASM OF 01/20/2020 CARLINE, LUKASZ E THRESHING MACHINE OPERATOR Ot Z99.81 DEPENDENCE ON SUPPLEMENTAL OXYGEN 01/20/2020 [...] Ot V58.81 FIT /ADJ VASCULAR CATHETER 01/20/2020 [facility] 879.2 OPN WND ANTERIOR ABDOMEN 01/20/2020 [facility] Ot E000.8 OTHER EXTERNAL CAUSE STATUS 01/20/2020 [facility] CHA VILLALPANDO Ot E928.9 ACCIDENT NOS [...] Ot 355. 5 TARSAL TUNNEL SYNDROME 01/20/2020 [facility] Ot V72.84 EXAM PRE-OPERATIVE NOS 01/20/2020 [facility] Ot 530.10 ESOPHAGITIS NOS 01/20/2020 [facility] Ot 553.3 DIAPHRAGMATIC HERNIA 01/20/2020 [facility] Ot 787.20 DYSPHAGIA, UNSPECIFIED 01/20/2020 ADAMA KENTIA Jr LEATHER CLEANER Ot 486 PNEUMONIA, ORGANISM NOS 01/20/2020 ADAMA KENTIA L LEATHER CLEANER Ot 789.00 ABDOMINAL PAIN, UNSPECIFIED SITE 01/20/2020 ADAMA KENTIA Jr LEATHER CLEANER Ot 959.6 HIP THIGH INJURY NOS 01/20/2020 CHIP KENTRICIA L LEATHER CLEANER Ot E000.8 OTHER EXTERNAL CAUSE STATUS 01/20/2020 ADAMA KENTIA Jr LEATHER CLEANER Ot E849.4 ACCID IN RECREATION AREA 01/20/2020 ADAMA KENTIA Jr LEATHER CLEANER Ot E888.9 FALL NOS 01/20/2020 [facility], PETRA Raymond Ot 724. 5 BACKACHE NOS 01/20/2020 PILGR[facility] KRISHAN, PETRA Raymond Ot 786. 50 CHEST PAIN NOS 01/20/2020 PILGR[facility] PETRA NICKERSON Ot 724. 1 PAIN IN THORACIC SPINE 01/20/2020 PILGR[facility] PETRA NICKERSON Ot 786. 50 CHEST PAIN NOS 01/20/2020 KENTRUDOLPH BURNHAM DO Ot 414.00 CORON ATHEROSCLER NOS TYPE VESSEL, NATIV 01/20/2020 KENTRUDOLPH BURNHAM DO Ot 786.50 CHEST PAIN NOS 01/20/2020 [place] RUDOLPH VILLALPANDO Ot I25.10 ATHSCL HEART DISEASE OF [place] CORONARY 01/20/2020 KENTRUDOLPH BURNHAM DO Ot R07.9 CHEST PAIN, UNSPECIFIED 01/20/2020 [facility] R10.9 UNSPECIFIED ABDOMINAL PAIN 01/20/2020 [facility] Ot Z01.818 ENCOUNTER FOR OTHER PREPROCEDURAL EXAMIN 01/20/2020 [facility] Ot 553.20 VENTRAL HERNIA NOS 01/20/2020 [facility] Ot V81.5 SCREEN FOR NEPHROPATHY 01/20/2020 LUKASZ CROWLEY APRN Ot F17.210 NICOTINE DEPENDENCE, CIGARETTES, UNCOMPL 01/20/2020 LUKASZ CROWLEY APRN Ot J44.9 CHRONIC OBSTRUCTIVE PULMONARY DISEASE, U 01/20/2020 LUKASZ CROWLEY APRN Ot R06.00 DYSPNEA, UNSPECIFIED 01/20/2020 [facility], FRANDY Aviles Ot E11.9 TYPE 2 DIABETES MELLITUS WITHOUT COMPLIC 01/20/2020 [facility], FRANDY Aviles Ot E78.2 MIXED HYPERLIPIDEMIA 01/20/2020 [facility], FRANDY K Ot I10 ESSENTIAL (PRIMARY) HYPERTENSION 01/20/2020 [facility], FRANDY Aviles Ot I25.10 ATHSCL HEART DISEASE OF [place] CORONARY 01/20/2020 [facility], FRANDY Aviles Ot E11.9 TYPE 2 DIABETES MELLITUS WITHOUT COMPLIC 01/20/2020 [facility], FRANDY Aviles Ot E78.2 MIXED HYPERLIPIDEMIA 01/20/2020 [facility], FRANDY K Ot I10 ESSENTIAL (PRIMARY) HYPERTENSION 01/20/2020 [facility], FRANDY K Ot I25.10 ATHSCL HEART DISEASE OF [place] CORONARY 01/20/2020 LUKASZ CROWLEY APRN Ot F17.200 [...] OTHER CHEST PAIN 01/20/2020 CARLINE LUKASZ E THRESHING MACHINE OPERATOR Ot F12.10 CANNABIS ABUSE, UNCOMPLICATED 01/20/2020 CARLINE, LUKASZ E THRESHING MACHINE OPERATOR Ot F17.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, UNSPECIFIED, UNCOMP 01/20/2020 ACRLINE, LUKASZ E THRESHING MACHINE OPERATOR Ot G47.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 01/20/2020 CARLINE, LUKASZ E THRESHING MACHINE OPERATOR Ot J30.9 ALLERGIC RHINITIS, UNSPECIFIED 01/20/2020 CARLINE, LUKASZ E THRESHING MACHINE OPERATOR Ot J42 UNSPECIFIED CHRONIC BRONCHITIS 01/20/2020 CARLINE, LUKASZ E THRESHING MACHINE OPERATOR Ot J44.9 CHRONIC OBSTRUCTIVE PULMONARY DISEASE, U 01/20/2020 CARLINE, LUKASZ E THRESHING MACHINE OPERATOR Ot Z99.81 DEPENDENCE ON SUPPLEMENTAL OXYGEN 01/20/2020 CARLINE, LUKASZ E THRESHING MACHINE OPERATOR Ot F12.10 CANNABIS ABUSE, UNCOMPLICATED 01/20/2020 CARLINE, LUKASZ E THRESHING MACHINE OPERATOR Ot F17.210 NICOTINE DEPENDENCE, CIGARETTES, UNCOMPL 01/20/2020 CARLINE, LUKASZ E THRESHING MACHINE OPERATOR Ot G47.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 01/20/2020 CARLINE, LUKASZ E THRESHING MACHINE OPERATOR Ot J18.1 LOBAR PNEUMONIA, UNSPECIFIED ORGANISM 01/20/2020 CARLINE, LUKASZ E THRESHING MACHINE OPERATOR Ot J30.9 ALLERGIC RHINITIS, UNSPECIFIED 01/20/2020 CARLINE, LUKASZ E THRESHING MACHINE OPERATOR Ot J44.9 CHRONIC OBSTRUCTIVE PULMONARY DISEASE, U 01/20/2020 CARLINE, LUKASZ E THRESHING MACHINE OPERATOR Ot Z12.2 ENCNTR SCREEN FOR MALIGNANT NEOPLASM OF 01/20/2020 CARLINE, LUKASZ E THRESHING MACHINE OPERATOR Ot Z99.81 DEPENDENCE ON SUPPLEMENTAL OXYGEN 01/20/2020 RUDOLPH KENT DO Ot Z45.2 ENCOUNTER FOR ADJUSTMENT AND MANAGEMENT 01/20/2020 SARAH ROBERTSON LEATHER CLEANER Ot 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, CERVICOTHORACIC REGIO 01/20/2020 SARAH ROBERTSON Ot M48.02 SPINAL STENOSIS, CERVICAL REGION 01/20/2020 SARAH ROBERTSON Ot M50.11 CERV DISC DISORDER WITH RADICULOPATHY, H 01/20/2020 SARAH ROBERTSON Ot M50.121 CERVICAL DISC DISORDER AT C4-C5 LEVEL [place] 01/20/2020 [facility] V72.84 EXAM PRE-OPERATIVE NOS 01/20/2020 Ot V58.81 FIT /ADJ VASCULAR CATHETER 01/20/2020 [facility] Ot 879.2 OPN WND ANTERIOR ABDOMEN 01/20/2020 [facility] Ot E000.8 OTHER EXTERNAL CAUSE STATUS 01/20/2020 [facility] Ot E928.9 ACCIDENT NOS 01/20/2020 JUAN LICONA [...] Ot 355. 5 TARSAL TUNNEL SYNDROME 01/20/2020 [facility] V72.84 EXAM PRE-OPERATIVE NOS 01/20/2020 [facility], CHA Ot 530.10 ESOPHAGITIS NOS 01/20/2020 [facility], CHA Ot 553.3 DIAPHRAGMATIC HERNIA 01/20/2020 [facility], CHA Ot 787.20 DYSPHAGIA, UNSPECIFIED 01/20/2020 JIMMY KENT LEATHER CLEANER Ot 486 PNEUMONIA, ORGANISM NOS 01/20/2020 CHIP KENTRICIA Jr LEATHER CLEANER Ot 789.00 ABDOMINAL PAIN, UNSPECIFIED SITE 01/20/2020 CHIP KENTRICIA L LEATHER CLEANER Ot 959.6 HIP THIGH INJURY NOS 01/20/2020 ADAMA KENTIA L LEATHER CLEANER Ot E000.8 OTHER EXTERNAL CAUSE STATUS 01/20/2020 JIMMY KENT LEATHER CLEANER Ot E849.4 ACCID IN RECREATION AREA 01/20/2020 ADAMA KENTIA Jr LEATHER CLEANER Ot E888.9 FALL NOS 01/20/2020 [facility], PETRA Raymond Ot 724. 5 BACKACHE NOS 01/20/2020 [facility], PETRA Raymond Ot 786. 50 CHEST PAIN NOS 01/20/2020 [facility], PETRA Raymond Ot 724. 1 PAIN IN THORACIC SPINE 01/20/2020 [facility], PETRA Raymond Ot 786. 50 CHEST PAIN NOS 01/20/2020 [place] RUDOLPH VILLALPANDO Ot 414.00 CORON ATHEROSCLER NOS TYPE VESSEL, NATIV 01/20/2020 KENTRUDOLPH BURNHAM DO Ot 786.50 CHEST PAIN NOS 01/20/2020 [place] RUDOLPH VILLALPANDO Ot I25.10 ATHSCL HEART DISEASE OF [place] CORONARY 01/20/2020 KENTRUDOLPH BURNHAM DO Ot R07.9 CHEST PAIN, UNSPECIFIED 01/20/2020 [facility] R10.9 UNSPECIFIED ABDOMINAL PAIN 01/20/2020 [facility], CHA Ot Z01.818 ENCOUNTER FOR OTHER PREPROCEDURAL EXAMIN 01/20/2020 [facility] Ot 553.20 VENTRAL HERNIA NOS 01/20/2020 [facility] V81.5 SCREEN FOR NEPHROPATHY 01/20/2020 LUKASZ CROWLEY APRN Ot F17.210 NICOTINE DEPENDENCE, CIGARETTES, UNCOMPL 01/20/2020 LUKASZ CROWLEY APRN Ot J44.9 CHRONIC OBSTRUCTIVE PULMONARY DISEASE, U 01/20/2020 LUKASZ CROWLEY APRN Ot R06.00 DYSPNEA, UNSPECIFIED 01/20/2020 [facility], FRANDY Aviles Ot E11.9 TYPE 2 DIABETES MELLITUS WITHOUT COMPLIC 01/20/2020 [facility], FRANDY Aviles Ot E78.2 MIXED HYPERLIPIDEMIA 01/20/2020 [facility], FRANDY Aviles Ot I10 ESSENTIAL (PRIMARY) HYPERTENSION 01/20/2020 [facility], FRANDY Aviles Ot I25.10 ATHSCL HEART DISEASE OF [place] CORONARY 01/20/2020 [facility], FRANDY Aviles Ot E11.9 TYPE 2 DIABETES MELLITUS WITHOUT COMPLIC 01/20/2020 [facility], FRANDY Aviles Ot E78.2 MIXED HYPERLIPIDEMIA 01/20/2020 [facility], FRANDY Aviles Ot I10 ESSENTIAL (PRIMARY) HYPERTENSION 01/20/2020 [facility], FRANDY Aviles Ot I25.10 ATHSCL HEART DISEASE OF [place] CORONARY 01/20/2020 LUKASZ CROWLEY APRN Ot F17.200 [...] OTHER CHEST PAIN 01/20/2020 CARLINE, LUKASZ E THRESHING MACHINE OPERATOR Ot F12.10 CANNABIS ABUSE, UNCOMPLICATED 01/20/2020 CARLINE, LUKASZ E THRESHING MACHINE OPERATOR Ot F17.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, UNSPECIFIED, UNCOMP 01/20/2020 CARLINE, LUKASZ E THRESHING MACHINE OPERATOR Ot G47.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 01/20/2020 CARLINE, LUKASZ E THRESHING MACHINE OPERATOR Ot J30.9 ALLERGIC RHINITIS, UNSPECIFIED 01/20/2020 CARLINE, LUKASZ E THRESHING MACHINE OPERATOR Ot J42 UNSPECIFIED CHRONIC BRONCHITIS 01/20/2020 CARLINE, LUKASZ E THRESHING MACHINE OPERATOR Ot J44.9 CHRONIC OBSTRUCTIVE PULMONARY DISEASE, U 01/20/2020 CARLINE, LUKASZ E THRESHING MACHINE OPERATOR Ot Z99.81 DEPENDENCE ON SUPPLEMENTAL OXYGEN 01/20/2020 CARLINE, LUKASZ E THRESHING MACHINE OPERATOR Ot F12.10 CANNABIS ABUSE, UNCOMPLICATED 01/20/2020 CARLINE, LUKASZ E THRESHING MACHINE OPERATOR Ot F17.210 NICOTINE DEPENDENCE, CIGARETTES, UNCOMPL 01/20/2020 CARLINE, LUKASZ E THRESHING MACHINE OPERATOR Ot G47.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 01/20/2020 CARLINE, LUKASZ E THRESHING MACHINE OPERATOR Ot J18.1 LOBAR PNEUMONIA, UNSPECIFIED ORGANISM 01/20/2020 CARLINE, LUKASZ E THRESHING MACHINE OPERATOR Ot J30.9 ALLERGIC RHINITIS, UNSPECIFIED 01/20/2020 CARLINE, LUKASZ E THRESHING MACHINE OPERATOR Ot J44.9 CHRONIC OBSTRUCTIVE PULMONARY DISEASE, U 01/20/2020 CARLINE, LUKASZ E THRESHING MACHINE OPERATOR Ot Z12.2 ENCNTR SCREEN FOR MALIGNANT NEOPLASM OF 01/20/2020 CARLINE, LUKASZ E THRESHING MACHINE OPERATOR Ot Z99.81 DEPENDENCE ON SUPPLEMENTAL OXYGEN 01/20/2020 RUDOLPH KENT DO Ot Z45.2 ENCOUNTER FOR ADJUSTMENT AND MANAGEMENT 01/20/2020 SARAH ROBERTSON Ot 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 10 ATHSCL HEART DISEASE OF [place] CORONARY 01/24/2020 LUKAS NUNES MD Ot I50. [...] M19. 91 PRIMARY OSTEOARTHRITIS, UNSPECIFIED SITE 01/24/2020 ULKAS NUNES MD Ot M54. 9 DORSALGIA, UNSPECIFIED 01/24/2020 LUKAS NUNES MD, Ot M79. 7 FIBROMYALGIA 01/24/2020 LUKAS NUNES MD Ot R00. 1 BRADYCARDIA, UNSPECIFIED 01/24/2020 LUKAS NUNES MD, Ot R53. 81 OTHER MALAISE 01/24/2020 LUKAS NUNES MD, Ot Z68. 31 BODY MASS INDEX (BMI) 31.0-31.9, ADULT 01/24/2020 LUKAS NUNES MD, Ot Z79. 84 RESIDENTIAL (CURRENT) USE OF ORAL HYPOGLYC 01/24/2020 LUKAS [...] Ot 355. 5 TARSAL TUNNEL SYNDROME 01/27/2020 [facility], DIANNTIE Ot V72.84 EXAM PRE-OPERATIVE NOS 01/27/2020 [facility], MEDARDOROUTIE Ot 530.10 ESOPHAGITIS NOS 01/27/2020 [facility], MEDARDOROUTIE Ot 553.3 DIAPHRAGMATIC HERNIA 01/27/2020 [facility], MEDARDOROUTIE Ot 787.20 DYSPHAGIA, UNSPECIFIED 01/27/2020 JIMMY KENT LEATHER CLEANER Ot 486 PNEUMONIA, ORGANISM NOS 01/27/2020 JIMMY KENT LEATHER CLEANER Ot 789.00 ABDOMINAL PAIN, UNSPECIFIED SITE 01/27/2020 JIMMY KENT LEATHER CLEANER Ot 959.6 HIP THIGH INJURY NOS 01/27/2020 JIMMY KENT LEATHER CLEANER Ot E000.8 OTHER EXTERNAL CAUSE STATUS 01/27/2020 JIMMY KENT LEATHER CLEANER Ot E849.4 ACCID IN RECREATION AREA 01/27/2020 JIMMY KENT LEATHER CLEANER Ot E888.9 FALL NOS 01/27/2020 [facility] KRISHAN, PETRA Raymond Ot 724. 5 BACKACHE NOS 01/27/2020 PILGRIM PETRA NICKERSON Ot 786. 50 CHEST PAIN NOS 01/27/2020 PILGRIM PETRA NICKERSON Ot 724. 1 PAIN IN THORACIC SPINE 01/27/2020 PILGRIM PETRA NICKERSON Ot 786. 50 CHEST PAIN NOS 01/27/2020 RUDOLPH KENT DO Ot 414.00 CORON ATHEROSCLER NOS TYPE VESSEL, NATIV 01/27/2020 RUDOLPH KENT DO Ot 786.50 CHEST PAIN NOS 01/27/2020 RUDOLPH KENT DO Ot I25.10 ATHSCL HEART DISEASE OF [place] CORONARY 01/27/2020 RUDOLPH KENT DO Ot R07.9 CHEST PAIN, UNSPECIFIED 01/27/2020 [facility].9 UNSPECIFIED ABDOMINAL PAIN 01/27/2020 [facility] Z01.818 ENCOUNTER FOR OTHER PREPROCEDURAL EXAMIN [...] ROSA Ot I25.10 ATHSCL HEART DISEASE OF [place] CORONARY 01/27/2020 FRANDY [place]A Ot E11.9 TYPE 2 DIABETES MELLITUS WITHOUT COMPLIC 01/27/2020 FRANDY [place] Ot E78.2 MIXED HYPERLIPIDEMIA 01/27/2020 FRANDY [place] Ot I10 ESSENTIAL (PRIMARY) HYPERTENSION 01/27/2020 [facility] [place] Ot I25.10 ATHSCL HEART DISEASE OF [place] CORONARY 01/27/2020 LUKASZ CROWLEY APRN Ot F17.200 [...] UNSPECIFIED 01/27/2020 RUDOLPH KENT DO, Ot M85.852 [facility] DISRD OF BONE DENSITY AND STRUCTURE, 01/27/2020 [...] OTHER CHEST PAIN 01/27/2020 CARLINE, LUKASZ E THRESHING MACHINE OPERATOR Ot F12.10 CANNABIS ABUSE, UNCOMPLICATED 01/27/2020 CARLINE, LUKASZ E THRESHING MACHINE OPERATOR Ot F17.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, UNSPECIFIED, UNCOMP 01/27/2020 CARLINE, LUKASZ E THRESHING MACHINE OPERATOR Ot G47.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 01/27/2020 CARLINE, LUKASZ E THRESHING MACHINE OPERATOR Ot J30.9 ALLERGIC RHINITIS, UNSPECIFIED 01/27/2020 CARLINE, LUKASZ E THRESHING MACHINE OPERATOR Ot J42 UNSPECIFIED CHRONIC BRONCHITIS 01/27/2020 CARLINE, LUKASZ E THRESHING MACHINE OPERATOR Ot J44.9 CHRONIC OBSTRUCTIVE PULMONARY DISEASE, U 01/27/2020 CARLINE, LUKASZ E THRESHING MACHINE OPERATOR Ot Z99.81 DEPENDENCE ON SUPPLEMENTAL OXYGEN 01/27/2020 CARLINE, LUKASZ E THRESHING MACHINE OPERATOR Ot F12.10 CANNABIS ABUSE, UNCOMPLICATED 01/27/2020 CARLINE, LUKASZ E THRESHING MACHINE OPERATOR Ot F17.210 NICOTINE DEPENDENCE, CIGARETTES, UNCOMPL 01/27/2020 CARLINE, LUKASZ E THRESHING MACHINE OPERATOR Ot G47.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 01/27/2020 CARLINE, LUKASZ E THRESHING MACHINE OPERATOR Ot J18.1 LOBAR PNEUMONIA, UNSPECIFIED ORGANISM 01/27/2020 CARLINE, LUKASZ E THRESHING MACHINE OPERATOR Ot J30.9 ALLERGIC RHINITIS, UNSPECIFIED 01/27/2020 CARLINE, LUKASZ E THRESHING MACHINE OPERATOR Ot J44.9 CHRONIC OBSTRUCTIVE PULMONARY DISEASE, U 01/27/2020 CARLINE, LUKASZ E THRESHING MACHINE OPERATOR Ot Z12.2 ENCNTR SCREEN FOR MALIGNANT NEOPLASM OF 01/27/2020 CARLINE LUKASZ E THRESHING MACHINE OPERATOR Ot Z99.81 DEPENDENCE ON SUPPLEMENTAL OXYGEN 01/27/2020 [...] Ot 787.20 DYSPHAGIA, UNSPECIFIED 01/27/2020 JIMMY KENT LEATHER CLEANER Ot 486 PNEUMONIA, ORGANISM NOS 01/27/2020 JIMMY KENT LEATHER CLEANER Ot 789.00 ABDOMINAL PAIN, UNSPECIFIED SITE 01/27/2020 ADAMA KENTIA Jr LEATHER CLEANER Ot 959.6 HIP THIGH INJURY NOS 01/27/2020 JIMMY KENT LEATHER CLEANER Ot E000.8 OTHER EXTERNAL CAUSE STATUS 01/27/2020 JIMMY KENT LEATHER CLEANER Ot E849.4 ACCID IN RECREATION AREA 01/27/2020 JIMMY KENT LEATHER CLEANER Ot E888.9 FALL NOS 01/27/2020 [facility] KRISHAN, PETRA Raymond Ot 724. 5 BACKACHE NOS 01/27/2020 [facility] PETRA NICKERSON Ot 786. 50 CHEST PAIN NOS 01/27/2020 PETRA KEARNEY DC Ot 724. 1 PAIN IN THORACIC SPINE 01/27/2020 PETRA KEARNEY DC Ot 786. 50 CHEST PAIN NOS 01/27/2020 RUDOLPH KENT DO Ot 414.00 CORON ATHEROSCLER NOS TYPE VESSEL, NATIV 01/27/2020 RUDOLPH KENT DO Ot 786.50 CHEST PAIN NOS 01/27/2020 RUDOLPH KENT DO Ot I25.10 ATHSCL HEART DISEASE OF [place] CORONARY 01/27/2020 RUDOLPH KENT DO Ot R07.9 CHEST PAIN, UNSPECIFIED 01/27/2020 CHA VERDUGO DO Ot R10.9 UNSPECIFIED ABDOMINAL PAIN 01/27/2020 LUCINA CHA VILLALPANDO Ot Z01.818 ENCOUNTER FOR OTHER PREPROCEDURAL EXAMIN 01/27/2020 CHA VERDUGO DO Ot 553.20 VENTRAL HERNIA NOS 01/27/2020 CHA VERDUGO DO Ot V81.5 SCREEN FOR NEPHROPATHY 01/27/2020 LUKASZ CROWLEY APRN Ot F17.210 NICOTINE DEPENDENCE, CIGARETTES, UNCOMPL 01/27/2020 LUKASZ CROWLEY APRN Ot J44.9 CHRONIC OBSTRUCTIVE PULMONARY DISEASE, U 01/27/2020 LUKASZ CROWLEY APRN Ot R06.00 DYSPNEA, UNSPECIFIED 01/27/2020 [facility], FRANDY Aviles Ot E11.9 TYPE 2 DIABETES MELLITUS WITHOUT COMPLIC 01/27/2020 [facility] Aviles Ot E78.2 MIXED HYPERLIPIDEMIA 01/27/2020 [facility] K Ot I10 ESSENTIAL (PRIMARY) HYPERTENSION 01/27/2020 [facility] C[facility], FRANDY Aviles Ot I25.10 ATHSCL HEART DISEASE OF [place] CORONARY 01/27/2020 [facility] CRISTINA, FRANDY Aviles Ot E11.9 TYPE 2 DIABETES MELLITUS WITHOUT COMPLIC 01/27/2020 [facility] C[facility], FRANDY Aviles Ot E78.2 MIXED HYPERLIPIDEMIA 01/27/2020 [facility] C[facility], FRANDY K Ot I10 ESSENTIAL (PRIMARY) HYPERTENSION 01/27/2020 [facility] C[facility], FRANDY Stefan Ot I25.10 ATHSCL HEART DISEASE OF [place] CORONARY 01/27/2020 LUKASZ CROWLEY APRN Ot F17.200 [...] OTHER CHEST PAIN 01/27/2020 CARLINE, LUKASZ E THRESHING MACHINE OPERATOR Ot F12.10 CANNABIS ABUSE, UNCOMPLICATED 01/27/2020 CARLINE, LUKASZ E THRESHING MACHINE OPERATOR Ot F17.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, UNSPECIFIED, UNCOMP 01/27/2020 CARLINE, LUKASZ E THRESHING MACHINE OPERATOR Ot G47.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 01/27/2020 CARLINE, LUKASZ E THRESHING MACHINE OPERATOR Ot J30.9 ALLERGIC RHINITIS, UNSPECIFIED 01/27/2020 CARLINE, LUKASZ E THRESHING MACHINE OPERATOR Ot J42 UNSPECIFIED CHRONIC BRONCHITIS 01/27/2020 CARLINE, LUKASZ E THRESHING MACHINE OPERATOR Ot J44.9 CHRONIC OBSTRUCTIVE PULMONARY DISEASE, U 01/27/2020 CARLINE, LUKASZ E THRESHING MACHINE OPERATOR Ot Z99.81 DEPENDENCE ON SUPPLEMENTAL OXYGEN 01/27/2020 CARLINE, LUKASZ E THRESHING MACHINE OPERATOR Ot F12.10 CANNABIS ABUSE, UNCOMPLICATED 01/27/2020 CARLINE, LUKASZ E THRESHING MACHINE OPERATOR Ot F17.210 NICOTINE DEPENDENCE, CIGARETTES, UNCOMPL 01/27/2020 CARLINE, LUKASZ E THRESHING MACHINE OPERATOR Ot G47.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 01/27/2020 CARLINE, LUKASZ E THRESHING MACHINE OPERATOR Ot J18.1 LOBAR PNEUMONIA, UNSPECIFIED ORGANISM 01/27/2020 CARLINE, LUKASZ E THRESHING MACHINE OPERATOR Ot J30.9 ALLERGIC RHINITIS, UNSPECIFIED 01/27/2020 CARLINE, LUKASZ E THRESHING MACHINE OPERATOR Ot J44.9 CHRONIC OBSTRUCTIVE PULMONARY DISEASE, U 01/27/2020 CARLINE, LUKASZ E THRESHING MACHINE OPERATOR Ot Z12.2 ENCNTR SCREEN FOR MALIGNANT NEOPLASM OF 01/27/2020 CARLINE, LUKASZ E THRESHING MACHINE OPERATOR Ot Z99.81 DEPENDENCE ON SUPPLEMENTAL OXYGEN 01/27/2020 RUDOLPH KENT DO Ot Z45.2 ENCOUNTER FOR ADJUSTMENT AND MANAGEMENT 01/27/2020 SARAH ROBERTSON Ot 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, CERVICOTHORACIC REGIO 01/27/2020 MARCELO, SARAH J LEATHER CLEANER Ot M48.02 SPINAL STENOSIS, CERVICAL REGION 01/27/2020 SARAH ROBERTSON LEATHER CLEANER Ot M50.11 CERV DISC DISORDER WITH RADICULOPATHY, H 01/27/2020 SARAH ROBERTSON LEATHER CLEANER Ot M50.121 CERVICAL DISC DISORDER AT C4-C5 [...] UNSPECIFIED 01/29/2020 QIU DO, RANDAL Ot Z79.4 RESIDENTIAL (CURRENT) USE OF INSULIN 01/29/2020 QIU DO, RANDAL Ot Z79.89 1 RESIDENTIAL (CURRENT) USE OF OPIATE ANALGE 01/29/2020 QIU [...] Code Description Performed By Per formed On [id number] SISTANCE WITH RESPIRATORY VENTILATION, 12/20/[id number] DAWKINS OF STOMACH WITH DRAINAGE DEVICE 01/17/2020 Results Test Result Range Sputum Gram stain - 11/01/16 13:15 GRAM STAIN SPUTUM YEAST CELLS OBSERVED NRG Bacterial sputum culture - 11/01/16 13:1 5 FREE TEXT EXTERNAL PLUS NORMAL [place]O NR G QUANTITY OF GROWTH Moderate Growth NRG Bacterial sputum culture [id number] NRG Methicillin resistant Staphylococcus aur eus (MRSA) [...] QUANTITY OF GROWTH Rare NRG Fungus culture [id number] NRG Mycobacterium species detection by organ ism [...] 02/03/20 13:10 BNP PT 26.7 pg/mL <100.0 PT panel in platelet poor plasma by coag ulation assay - 02/03/20 13:10 Prothrombin time (PT) in platelet poor plasma by coagu lation assay 13.8 s 12.2-14.7 INR in platelet poor plasma or blood by coagulation as say 1.0 0.8-1.4 Activated partial thromboplastin time (a PTT) in platelet poor plasma bycoagulation assay - 02/03/20 13:10 Activated partial thromboplastin time (a PTT) in platelet poor plasma bycoagulation assay 43 s 24-35 Influenza virus A and B antigen detectio n - 02/03/20 13:10 FLU RESULT NEGATIVE FOR INFLUENZA A AND B ANTIGENS BY IA NRG Serum or plasma potassium measurement (m oles/volume) - 02/03/20 13:10 Serum or plasma potassium measurement (moles/volume) 5.7 mmol/L 3.6-5.0 Serum or plasma ethanol measurement (mas s/volume) - 02/03/20 13:10 Serum or plasma ethanol measurement (mass/volume) < mg/dL <10 Serum or plasma triglyceride measurement (mass/volume) - 02/03/20 13:10 Serum or plasma triglyceride measurement (mass/volume) 148 mg/dL <150 Arterial blood gas measurement - 0 13:13 [...] G Measurement of body temperature 36.8 NRG Complete urinalysis with reflex to cultu re - 02/03/20 13:30 Urine color determination YELLOW NRG Urine clarity determination CLEAR NR G Urine pH measurement by test strip 5.0 5-9 Specific gravity of urine by test strip >= 1.016-1.022 Urine protein assay by test strip, semi-quantitative TRACE NEGATIVE Urine glucose detection by automated test strip NE GATIVE NEGATIVE Erythrocytes detection in urine sediment by light micr oscopy 1+ NEGATIVE Urine ketones detection by automated test strip NE GATIVE NEGATIVE Urine nitrite detection by test strip NEGATIVE NEGATIVE Urine total bilirubin detection by test strip NEGA TIVE NEGATIVE Urine urobilinogen measurement by automated test strip (mass/volume) 0.2 mg/dL < = 1.0 Urine leukocyte esterase detection by dipstick NEG ATIVE NEGATIVE Automated urine sediment erythrocyte cou nt by microscopy (number/high power field) [HPF] NRG Automated urine sediment leukocyte count by microscopy (number/high power field) NONE NRG Bacteria detection in urine sediment by light microsco py TRACE NRG Squamous epithelial cells detection in u rine sediment by light microscopy 0-2 NRG Crystals detection in urine sediment by light microsco py PRESENT NRG Casts detection in urine sediment by light microscopy PRESENT NRG Mucus detection in urine sediment by light microscopy NEGATIVE NRG Complete urinalysis with reflex to culture NO NRG Amorphous sediment detection in urine sediment by ligh t microscopy MOD BERNICE URATES NRG Hyaline casts detection in urine sediment by light ryan roscopy 0-2 NRG Urine drug screening test - 02/03/20 13: 30 Urine phencyclidine detection by screening method NEGATIVE NEGATIVE Urine benzodiazepines detection by screening method POSITIVE NEGATIVE Urine cocaine detection NEGATIVE NEGATI VE Urine amphetamines detection by screening method N EGATIVE NEGATIVE Urine methamphetamine detection by screening method NEGATIVE NEGATIVE Urine cannabinoids detection by screening method P OSITIVE NEGATIVE Urine opiates detection by screening method POSITI VE NEGATIVE Urine barbiturates detection NEGATIVE N EGATIVE Screening urine tricyclic antidepressants detection NEGATIVE NEGATIVE Urine methadone detection by screening method NEGA TIVE NEGATIVE Urine oxycodone detection POSITIVE NEGA TIVE Urine propoxyphene detection NEGATIVE N EGATIVE Capillary blood glucose measurement by g lucometer (mass/volume) - 02/03/20 13:50 Capillary blood glucose measurement by glucometer (mas s/volume) 107 mg/dL 70-110 Arterial blood gas measurement - 0 14:26 Blood pCO2 48 mm[Hg] 35-45 Blood pO2 80 mm[Hg] 79-93 Arterial blood bicarbonate measurement (moles/volume) 20 mmol/L 23-27 Arterial blood base excess by calculation -6.2 mmo l/L -2.5-2.5 Arterial blood oxygen saturation measurement 93 % 94-100 * Inhaled oxygen flow rate 30% NRG Arterial blood pH measurement with patient temperature correction 7.24 7.37-7.43 Arterial blood carbon dioxide, total measurement (mole s/volume) 21.5 mmol/L 21.0-31.0 Body site LT RADIAL NRG Assessment of wrist artery patency prior to arterial p uncture YES-POS NRG Setting of ventilation mode YES NR G Measurement of body temperature 36.8 NRG Blood lactic acid measurement (moles/vol ume) - 02/03/20 14:46 Blood lactic acid measurement (moles/volume) 0.52 mmol/L 0.50-2.00 Encounters ACCT No. Visit Date/Time Discharge Status Pt. Type Provider Facility Loc./Unit Complaint [id number] 01/24/2020 11:12:00 11:30:00 DIS Inpatient RANDAL QIU DO, V [facility] IRF COPD MYOPATHY [id number] 01/17/2020 10:08:00 23:59:59 CLS Inpatient LUKAS NUNES MD [facility] 4TH SMALL BOWEL OBSTRUCTION [id number] 12/19/2019 19:35:00 11:45:00 DIS Inpatient LUKAS NUNES MD [facility] ICU COPD EXACERBATION,RESP FAILURE W/ HYPOXIA AND HYPE [id number] 12/10/2019 10:23:00 15:30:00 DIS Outpatient RAY MACKEY MD [facility] RIGHT CARPAL/CUBITAL T UNNEL SYNDROME [id number] 12/08/2019 08:40:00 10:00:00 DIS Outpatient RAY MACKEY MD [facility] PREOP RIGHT CARPAL/CUBITAL T UNNEL SYNDROME [id number] 11/03/2019 07:54:00 23:59:59 CLS Outpatient SARAH ROBERTSON [facility] RAD CERVICAL SPINAL STENOS IS [id number] 10/24/2019 14:18:00 12:05:00 DIS Inpatient LUKAS NUNES MD [facility] ICU PNEUMONIA;HYPOXIA;AMS [id number] 09/04/2019 00:13:00 23:59:59 CLS Preadmit RUDOLPH KENT DO Via [facility] FLUSH PORT MONTHLY PRN [id number] 08/01/2019 11:58:00 00:01:00 DIS Outpatient RUDOLPH KENT DO [facility] FLUSH [facility] PRN [id number] 06/25/2019 07:27:00 10:35:00 DIS Outpatient QING TAO DO [facility] ENDO ENDOBRONCHIAL MASS [id number] 06/23/2019 09:57:00 23:59:59 CLS Outpatient LUKASZ CROWLEY APRN [facility] RT OXYGEN DEPENDEN T, TOBACCO USE [id number] 05/08/2019 13:08:00 00:01:00 DIS Outpatient RUDOLPH KENT DO [facility] PRN [id number] 05/06/2019 13:02:00 23:59:59 CLS Outpatient LUKASZ CROWLEY APRN [facility] RAD MARIJUANA ABUSE ,OXYGEN DEPENDENT,TOBACCO USE [id number] 05/01/2019 14:35:00 23:59:59 CLS Preadmit RUDOLPH KENT DO [facility] RAD SCREENING [id number] 03/19/2019 06:49:00 13:05:00 DIS Outpatient JUAN LICONA MD [facility] CATH ABN STRESS TEST [id number] 03/12/2019 07:41:00 23:59:59 CLS Outpatient JUAN LICONA MD [facility] CARD CHEST PAIN SYNDROME,CLA UDICATION [id number] 03/10/2019 13:35:00 23:59:59 CLS Outpatient JUAN LICONA MD [facility] CARD CHEST PAIN SYNDROME,CLA UDICATION [id number] 01/17/2019 12:03:00 00:01:00 DIS Outpatient RUDOLPH KENT DO Via [facility] PRN [id number] 10/10/2018 11:03:00 23:59:59 CLS Outpatient RUDOLPH KENT DO [facility] RAD TRAUMA [id number] 10/08/2018 11:25:00 15:15:00 DIS Outpatient MELISA DOHERTY MD [facility] POOR PERIPHERAL VENOUS CIRCULATION [id number] 10/07/2018 05:48:00 12:44:00 DIS Outpatient MELISA DOHERTY MD [facility] PREOP POOR PERIPHERAL VENOUS CIRCULATION [id number] 09/19/2018 07:44:00 22:40:00 DIS Outpatient MELISA DOHERTY MD [facility] MALFUNCTIONING PORT [id number] 09/16/2018 05:33:00 12:07:00 DIS Outpatient MELISA DOHERTY MD [facility] PREOP PLACEMENT OF [place] P ORT [id number] 09/09/2018 10:37:00 23:59:59 CLS Outpatient RUDOLPH KENT DO [facility] RAD SCIATICA LT LOW ER ETREMITY [id number] 09/04/2018 13:20:00 13:20:00 DIS Outpatient RUDOLPH KENT DO [facility] PORT [id number] 08/16/2018 13:12:00 23:59:59 CLS Outpatient RUDOLPH KENT DO [facility] RAD MIGRANES [id number] 07/09/2018 13:08:00 018 00:01:00 DIS [facility] [id number] 05/16/2018 13:00:00 00:01:00 DIS [facility] [id number] 04/02/2018 12:02:00 23:59:59 CLS Outpatient RUDOLPH KENT DO [facility] RAD SEE ORDER [id number] 03/25/2018 09:35:00 018 23:59:59 CLS Outpatient RAY COLBY MD [facility] WOUNDCARE [id number] 11/09/2017 12:05:00 018 00:01:00 DIS [facility] [id number] 11/15/2017 09:01:00 018 23:59:59 CLS Outpatient RUDOLPH KENT DO [facility] RAD MENOPAUSE [id number] 10/18/2017 09:35:00 017 23:59:59 CLS Outpatient RUDOLPH KENT DO [facility] RAD SCREENING [id number] 08/20/2017 12:10:00 017 23:59:59 CLS Preadmit RUDOLPH KENT DO [facility] RAD SCREENING [id number] 08/03/2017 12:02:00 017 00:01:00 DIS Out[facility] [id number] 07/21/2017 10:37:00 017 23:59:59 CLS Outpatient RUDOLPH KENT DO [facility] RAD TRAUMA,KNEE [id number] 05/08/2017 13:05:00 017 00:01:00 DIS Outpatient RUDOLPH KENT DO [facility] SDC PORT [id number] 05/07/2017 08:16:00 017 23:59:59 CLS Outpatient IDALIA DE LA ROSA [facility] CARD BENIGN HYPERTENSION,HYPERLIPIDEMIA [id number] 04/30/2017 09:22:00 017 23:59:59 CLS Outpatient IDALIA DE LA ROSA [facility] CARD CAD,HYPERLI PIDEMIA [id number] 01/30/2017 13:15:00 017 23:59:59 CLS Preadmit LUKASZ CROWLEY APRN [facility] RAD COPD [id number] 11/01/2016 13:26:00 017 00:01:00 DIS Outpatient LUKASZ CROWLEY APRN [facility] RAD COPD [id number] 08/25/2016 13:04:00 016 00:01:00 DIS Outpatient URDOLPH KENT DO [facility] PORT [id number] 06/16/2016 13:05:00 016 00:01:00 DIS Outpatient RUDOLPH KENT DO [facility] PORT [id number] 04/17/2016 16:45:00 016 12:30:00 DIS Inpatient RUDOLPH KENT DO [facility] 4TH COPD EXACERBATI ON, FLUID RETENTION [id number] 03/28/2016 11:05:00 23:59:59 CLS Outpatient LUKASZ CROWLEY APRN [facility] RAD COPD,DYSPNEA,TO BACCO USE [id number] 08/17/2015 10:26:00 015 13:15:00 DIS Outpatient LUCINAMEDARDO LOJA DOROUTIE [facility] ABDOMINAL PAIN [id number] 08/12/2015 05:38:00 015 23:59:59 CLS Outpatient MEDARDO VERDUGO DOROUTIE [facility] PREOP ABDOMINAL PAIN [id number] 08/10/2015 09:32:00 015 23:59:59 CLS Outpatient MEDARDO VERDUGO DOROUTIE [facility] RAD VENTRAL HERNIA [id number] 07/09/2015 06:39:00 015 23:59:59 CLS Outpatient RUDOLPH KENT DO [facility] CARD 414.00 786.50-- CAD,CP [id number] 06/30/2015 11:26:00 015 23:59:59 CLS Outpatient PETRA KEARNEY DC [facility] RAD MID BACK/CHEST PAIN [id number] 06/29/2015 12:36:00 015 23:59:59 CLS Outpatient CAIO NICKERSON PETRA Mandi [facility] RAD MID BACK/CHEST PAIN [id number] 06/09/2015 09:01:00 015 12:00:00 DIS Outpatient RAY COLBY MD [facility] WOUNDCARE OPEN CHRONIC WOUND ABD [id number] 05/26/2015 08:58:00 015 00:01:00 DIS Outpatient RAY COLBY MD [facility] WOUNDCARE OPEN CHRONIC WOUND ABD [id number] 03/24/2015 10:30:00 23:59:59 CLS Outpatient JIMMY KENT [facility] RAD FALL, 03/22/15 PNUEMONIA [id number] 03/19/2015 10:25:00 015 23:59:59 CLS Outpatient KASIE DPM, ANDREA Q [facility] RAD TARSAL MICHELLE [id number] 03/18/2015 10:39:00 015 23:59:59 CLS Outpatient CHA VERDUGO DO [facility] RAD DYSPHAGIA [id number] 03/16/2015 10:09:00 015 13:25:00 DIS Outpatient CHA VERDUGO DO [facility] SDC DYSPHAGIA [id number] 03/11/2015 06:42:00 23:59:59 CLS Outpatient CHA VERDUGO DO [facility] PREOP DYSPHAGIA [id number] 02/24/2015 09:02:00 015 00:01:00 DIS Outpatient RAY COLBY MD [facility] WOUNDCARE OPEN CHRONIC WOUND ABD [id number] 12/09/2014 12:58:00 015 23:59:59 CLS Outpatient QING TAO DO [facility] RT COPD,DYSPNA [id number] 10/15/2014 10:06:00 014 23:59:59 CLS Outpatient RUDOLPH KENT DO [facility] RAD ROUTINE [id number] 09/30/2014 11:00:00 13:36:00 DIS Outpatient JIMMY KENT [facility] WOUNDCARE OPEN CHRONIC WO UND TO ABD [id number] 09/23/2014 10:51:00 10:05:00 DIS Outpatient JUAN LICONA MD [facility] CATH ABNORMAL STRESS, CAD, SOB,CP,TOBACCOISM [id number] 09/21/2014 07:53:00 23:59:59 CLS Outpatient JUAN LICONA MD [facility] CARD CP,HLP [id number] 09/18/2014 08:55:00 23:59:59 CLS Outpatient JUAN LICONA MD [facility] CARD CP,HLP [id number] 08/24/2014 14:30:00 23:59:59 CLS Outpatient CHA VERDUGO DO [facility] LABNPT ABDOMINAL WOUND [id number] 08/20/2014 11:03:00 14:15:00 DIS Outpatient CHA VERDUGO DO [facility] MULTIPLE GASTRI C ULCERS [id number] 08/12/2014 07:18:00 23:59:59 CLS Outpatient CHA VERDUGO DO [facility] PREOP MULTIPLE GASTRI C ULCERS [id number] 05/29/2014 09:39:00 00:01:00 DIS Outpatient JIMMY KENT [facility] PORT [id number] 07/15/2014 12:00:00 00:01:00 DIS Outpatient JIMMY KENT [facility] WOUNDCARE OPEN CHRONIC WO UND TO ABD [id number] 07/09/2014 12:20:00 15:30:00 DIS Outpatient CHA VERDUGO DO [facility] SDC REFLUX [id number] 07/08/2014 07:15:00 014 23:59:59 CLS Outpatient LUCINA DOMEDARDOROUTIE [facility] PREOP REFLUX [id number] 06/19/2014 10:22:00 014 23:59:59 CLS Outpatient LUCINA DOMEDARDOROUTIE [facility] RAD DSYPHAGIA [id number] 06/04/2014 11:57:00 014 15:05:00 DIS Outpatient LUCINA DO CHANDROUTIE [facility] SDC REFLUX [id number] 06/03/2014 08:33:00 23:59:59 CLS Outpatient LUCINA DOMEDARDOROUTIE [facility] PREOP REFLUX [id number] 04/10/2014 08:50:00 014 00:01:00 DIS Outpatient JIMMY KENT [facility] WOUNDCARE OPEN CHRONIC WO UND TO ABD [id number] 03/20/2014 09:29:00 014 00:01:00 [facility] [id number] 02/21/2014 12:51:00 014 17:09:00 DIS Inpatient RUDOLPH KENT DO [facility] SURGICAL SMALL BOWEL OBSTRUCTION [id number] 02/03/2014 09:19:00 014 23:59:59 CLS Outpatient RUDOLPH KENT DO [facility] RAD PNUEMONIA [id number] 10/22/2013 10:15:00 013 11:14:00 DIS Outpatient RUDOLPH KENT DO [facility] WOUNDCARE ABD WOUND [id number] 08/25/2013 08:06:00 013 13:35:00 DIS Inpatient RUDOLPH KENT DO [facility] 4TH COPD EXACERBATI ON INFLUENZA B [id number] 08/22/2013 11:42:00 23:59:59 CLS Outpatient RIDINGS, JIMMY Ogden APRN [facility] RAD COUGH,ERINBULE IL LNESS [id number] 03/14/2013 09:15:00 10:08:00 DIS Outpatient MELISA DOHERTY MD [facility] WOUNDCARE OPEN ABD WOUND [id number] 02/03/2020 13:28:00 Document Registration [id number] 12/26/2017 08:28:00 Document Registration [id number] 12/26/2017 08:28:00 Document Registration [id number] 12/26/2017 08:28:00 Document Registration [id number] 12/26/2017 08:28:00 Document Registration [id number] 12/26/2017 08:27:00 Document Registration [id number] 12/26/2017 08:27:00 Document Registration [id number] 12/26/2017 08:27:00 Document Registration [id number] 12/26/2017 08:27:00 Document Registration [id number] 01/25/2015 20:10:00 Document Registration [id number] 07/31/2014 00:00:00 Document Registration [id number] 00:00:00 Document Registration [id number] 02/23/2013 16:36:00 Document Registration [id number] 02/14/2013 00:00:00 Document Registration [id number] 02/07/2013 11:31:00 Document Registration [id number] 01/28/2013 10:30:00 Document Registration [id number] 11/08/2012 10:50:00 Document Registration [id number] 10/29/2012 10:05:00 Document Registration [id number] 10/25/2012 10:37:00 Document Registration [id number] 10/08/2012 10:00:00 Document Registration [id number] 08/16/2012 11:37:00 Document Registration [id number] 08/05/2012 00:00:00 Document Registration [id number] 08/01/2012 06:54:00 Document Registration [id number] 07/31/2012 08:09:00 Document Registration [id number] 07/16/2012 10:05:00 Document Registration [id number] 05/07/2012 10:19:00 Document Registration [id number] 04/10/2012 14:00:00 Document Registration [id number] 02/14/2012 11:50:00 Document Registration [id number] 01/19/2012 20:15:00 Document Registration [id number] 08/28/2011 15:15:00 Document Registration [id number] 08/14/2011 09:52:00 Document Registration [id number] 07/28/2011 15:15:00 Document Registration [id number] 06/07/2011 14:32:00 Document Registration [id number] 05/29/2011 09:56:00 Document Registration [id number] 05/25/2011 10:14:00 Document Registration [id number] 04/28/2011 14:55:00 Document Registration [id number] 02/26/2011 14:17:00 Document Registration [id number] 01/25/2011 15:20:00 Document Registration [id number] 10/24/2010 15:30:00 Document Registration [id number] 06/20/2010 15:00:00 Document Registration [id number] 04/07/2010 17:36:00 Document Registration [id number] 02/15/2010 14:55:00 Document Registration [id number] 10/29/2009 07:00:00 Document Registration [id number] 05/25/2009 10:07:00 Document Registration [id number] 02/23/2009 08:31:00 Document Registration [id number] 10/01/2008 14:03:00 Document Registration [id number] 08/13/2008 10:56:00 Document Registration [id number] 06/19/2008 12:32:00 Document Registration [id number] 06/04/2008 15:19:00 Document Registration [id number] 04/09/2008 08:04:00 Document Registration [id number] 12/17/2007 08:33:00 Document Registration [id number] 01/18/2007 11:18:00 Document Registration [id number] 11/09/2006 06:26:00 Document Registration [id number] 05/04/2006 11:09:00 Document Registration [id number] 04/27/2006 07:50:00 Document Registration [id number] 04/12/2006 17:10:00 Document Registration [id number] 03/20/2006 12:15:00 Document Registration [id number] 02/22/2006 08:15:00 Document Registration
[2020-02-03 17:21] LABS: ABG OXYGEN SATURATION 45 % (94-100); ABG PCO2 52 MMHG (35-45); ABG PO2 52 MMHG (79-93)
[2020-02-03 17:22] LABS: ABG PH 7.24 (7.37-7.43); ALLENS TEST YES-POS; INSPIRED O2 30%; PATIENT TEMP 36.6; VENTILATOR YES
[2020-02-03] MEDS: NS IV 1000 ML 1,000 ML IV SCH ×3 (18:05→23:57)
[2020-02-03] MEDS: CEFEPIME INJECTION 1,000 MG in WATER (STERILE) FOR INJECTION 10 ML IV SCH (18:14)
--- NOTE | 2020-02-03 18:19 | Anesthesia-Procedure Note ---
Procedures/Interventions Procedure Start/Stop/Diagnosis Date of Procedure: Feb 03, 2020 Start Time: 17:50 Stop Time: 18:05 Arterial Line Arterial Line Catheter: 20G Type: Radial Location: Right Procedure: prepped, draped in sterile fashion, good wave-form was obtained, patient tolerated procedure well, no immediate complications, post procedure area cleaned, post procedure dressing applied ROHIT NORTH CRNA Feb 03, 2020 18:19
[2020-02-03] MEDS: NOREPINEPHRINE 4 MG/250 ML 250 ML IV SCH ×2 (18:33→21:18)
[2020-02-03] MEDS ORDERED: SUCCINYLCHOLINE INJ 100 MG/5 ML SYR INJ ONE (19:34)
[2020-02-03] MEDS ORDERED: ETOMIDATE IV SOLN 20 MG/10 ML VIAL IV ONE (19:34)
[2020-02-04] VITALS (33 sets, daily range): BP systolic 94–188; BP diastolic 30–69
[2020-02-04] MEDS: inSUlin ASPART (NovoLOG) 1 UNIT/0.01 ML (CHARGE PER UNIT) SC SCH ×5 (00:18→23:51)
[2020-02-04 02:23] LABS: ABG BASE EXCESS -5.3 MMOL/L (-2.5-2.5); ABG OXYGEN SATURATION 96 % (94-100); ABG PCO2 37 MMHG (35-45); ABG PO2 93 MMHG (79-93); ABG TCO2 20.7 MMOL/L (21.0-31.0); BASOPHILS % (AUTO) 0 % (0-10); EOSINOPHILS # (AUTO) 0.3 10^3/uL (0.0-0.3); EOSINOPHILS % (AUTO) 2 % (0-10); HEMATOCRIT 29 % (35-52); HEMOGLOBIN 9.2 G/DL (11.5-16.0); LYMPHOCYTES % (AUTO) 20 % (12-44); MEAN CORPUSCULAR HEMOGLOBIN 27 PG (25-34); MEAN CORPUSCULAR HGB CONC 32 G/DL (32-36); MEAN CORPUSCULAR VOLUME 86 FL (80-99); MEAN PLATELET VOLUME 9.6 FL (7.4-10.4); MONOCYTES # (AUTO) 0.9 X 10^3 (0.0-1.0); MONOCYTES % (AUTO) 6 % (0-12); NEUTROPHILS # (AUTO) 10.7 X 10^3 (1.8-7.8); NEUTROPHILS % (AUTO) 72 % (42-75); PLATELET COUNT 415 10^3/uL (130-400); RED CELL DISTRIBUTION WIDTH 15.6 % (10.0-14.5); WHITE BLOOD COUNT 14.9 10^3/uL (4.3-11.0)
[2020-02-04 02:24] LABS: ABG PH 7.35 (7.37-7.43)
[2020-02-04 02:25] LABS: ALLENS TEST ART LINE; INSPIRED O2 25%; PATIENT TEMP 36.6; VENTILATOR YES
[2020-02-04] MEDS: PROPOFOL DRIP (ICU) 100 ML IV SCH ×6 (02:25→23:51)
[2020-02-04] MEDS: CEFEPIME INJECTION 1,000 MG in WATER (STERILE) FOR INJECTION 10 ML IV SCH ×2 (02:28→15:35)
[2020-02-04 02:45] LABS: ALBUMIN 3.2 GM/DL (3.2-4.5); BILIRUBIN,TOTAL 0.2 MG/DL (0.1-1.0); CALCIUM 8.1 MG/DL (8.5-10.1); CREATININE SERUM 2.05 MG/DL (0.60-1.30); MAGNESIUM 1.5 MG/DL (1.6-2.4); POTASSIUM 5.6 MMOL/L (3.6-5.0); TOTAL PROTEIN 5.9 GM/DL (6.4-8.2)
[2020-02-04 03:01] LABS: PHOSPHORUS 3.3 MG/DL (2.3-4.7)
[2020-02-04] MEDS: POTASSIUM CL 10MEQ/50ML IVPB 50 ML IV SCH (03:51)
[2020-02-04] MEDS: KCL 20 MEQ TAB (K-DUR) PO SCH (03:52)
[2020-02-04] MEDS: MAGNESIUM 1 GM/100 ML IVPB 100 ML IV SCH (03:52)
[2020-02-04] MEDS: NS IV 1000 ML 1,000 ML IV SCH ×3 (06:16→19:24)
--- NOTE | 2020-02-04 07:35 | Diagnostic Imaging Report ---
INDICATION: Septic shock. Comparison with 02/03/2020. FINDINGS: ET tube and NG tube remain in good position as does a right Port-A-Cath. The lungs are well-aerated. No infiltrates have developed. No pneumothorax or pleural effusion. The heart is not enlarged. IMPRESSION: Stable portable chest. Dictated by: Dictated on workstation # [id number]
[2020-02-04] MEDS: NOREPINEPHRINE 4 MG/250 ML 250 ML IV SCH ×2 (08:57→17:15)
[2020-02-04] MEDS: PANTOPRAZOLE 40 MG (PROTONIX) VIAL IV SCH (08:57)
--- NOTE | 2020-02-04 09:30 | Physician Query Clarification ---
PQ-Link Manifestation-Etiology Admission/Discharge Admission Date: Feb 03, 2020 at 14:51 Discharge Date: The medical record reflects the following clinical scenario: History/Risk Factors: Sepsis/Severe Sepsis with septic shock Acute and chronic respiratory failure with hypoxia and hypercapnia Pneumonia Clinical Findings: Vitals on admission:T 36.8, P 73, R 9, BP 88/44, Pulse Ox 98%. Blood gases: pH 7.15, pCO2 71, pO2 41 02 sats 33, Base Excess -3.9. Treatment:Nasal Cannula 3L ,then intubated with mechanical ventilation. Question: Can you specify if the Acute on chronic respiratory failure with hypoxia and hypercapnia is due to/associated with Sepsis? Please document a response in the Progress Note or Discharge Summary. 1. Yes - Acute on chronic respiratory failure with hypoxia and hypercapnia is due to/associated with Sepsis. 2. No - Acute on chronic respiratory failure is NOT due to/associated with Sepsis. 3. Other, with explanation of the clinical findings. 4. Clinically undetermined, no explanation for the clinical findings. PHYSICIAN RESPONSE Manifestation due to/assoic: Yes Please remember a lack of response to the above will prompt a phone page by CDI/Coding staff. In responding to this query, please exercise your independent professional judgment. The purpose of this communication is to more accurately reflect the complexity of your patients condition. The fact that a question is asked does not imply that any particular answer is desired or expected. Thank you for your timely response to this clarification. Requestors name: Cristy Butcher [facility] Phone # ext [phone] or [phone] THIS PHYSICIAN QUERY FORM IS A PERMANENT PART OF THE MEDICAL RECORD CRISTY BUTCHER Feb 04, 2020 09:30 ARTEMIO APARICIO MD Feb 04, 2020 10:48
--- NOTE | 2020-02-04 11:27 | NUR ---
UNABLE TO SPEAK WITH PT AT THIS TIME- I DID CALL HER [facility] AND WENT THRU THE EXT MED HISTORY TO COMPLETE THE MED REC PT WAS RECENTLY HERE ON ARU AND I HAD COMPLETED THE MED REC THEN- SHE WAS STARTED ON A FEW NEW MEDICATIONS. I SPOKE WITH HER TO SEE IF SHE HAD BEEN TAKING THOSE AND HE SHE YES SHE HAD. WHEN I CAN SPEAK WITH THE PT I WILL MAKE SURE NOTHING HAD CHANGED AND UPDATE THE MED REC/NOTES NEEDED
[2020-02-04 12:46] LABS: BILIRUBIN,URINE NEGATIVE (NEGATIVE); CLARITY,URINE CLEAR; COLOR,URINE YELLOW; GLUCOSE, URINE (UA) NEGATIVE (NEGATIVE); KETONES,URINE TRACE (NEGATIVE); LEUKOCYTE ESTERASE ,URINE NEGATIVE (NEGATIVE); NITRITE,URINE NEGATIVE (NEGATIVE); PH,URINE 5.5 (5-9); PROTEIN,URINE NEGATIVE (NEGATIVE)
[2020-02-04 12:55] LABS: BACTERIA,URINE NEGATIVE /HPF; RBC,URINE RARE /HPF; WBC,URINE 0-2 /HPF
[2020-02-04] MEDS ORDERED: VANCOMYCIN 1 GM/NS 250 ML IVPB IV SCH ×2 (14:00)
--- NOTE | 2020-02-04 14:43 | Progress Note - Hospitalist ---
Subjective HPI/CC On Admission Date Seen by Provider: Feb 04, 2020 Time Seen by Provider: 13:15 Pt is a 69yoCF with a PMH of COPD, CHF, HTN known to me from recent admission due to SBO who presented to the ER due SOB via EMS. She was found to be quite hypotensive and guppy breathing and in extremis. She was emergently intubated and started on pressors. She is unable to provide me any history at this time and all is obtained from the records. She was admitted to the hospital 2 weeks ago for SBO which was managed conservatively with NGT and bowel rest. She developed pneumonia and was treated with Zosyn. She was eventually discharged to IRU for continued strengthening and was discharged home with home health on 01/29. Today when home health PT arrived they were unable to get a BP and noticed her respiratory distress and called EMS for evaluation. Subjective/Events-last exam Pt remains intubated and sedated. No ROS possible. Discussed with RN who states she is very sensitive to levophed and he has been unable to titrate it off. Focused Exam Lactate Level 02/03/20 13:10: Lactic Acid Level 1.03 02/03/20 14:46: Lactic Acid Level 0.52 02/04/20 10:50: Lactic Acid Level 0.57 Time of Focused Exam: 15:22 Lactic Acid Level Laboratory Tests Test 02/04/20 10:50 Lactic Acid Level 0.57 MMOL/L (0.50-2.00) Objective Exam Vital Signs Vital Signs Date Time Temp Pulse Resp B/P (MAP) Pulse Ox O2 Delivery O2 Flow Rate FiO2 02/04/20 14:00 53 19 124/48 (73) 98 Mechanical Ventilator 25.00 02/04/20 12:00 25 02/04/20 08:00 36.6 Capillary Refill : Greater Than 3 Seconds General Appearance: Chronically ill, Obese Respiratory: Rhonci, Other (on vent) Cardiovascular: Regular Rate, Rhythm, No Murmur Gastrointestinal: Normal Bowel Sounds, Non Tender, Soft Neurologic/Psychiatric: Other (sedated, appears comfortable) Skin: Normal Color, Warm/Dry Results/Procedures Lab Laboratory Tests 02/04/20 02:15 Patient resulted labs reviewed. Imaging: Reviewed Imaging Films Assessment/Plan Assessment and Plan Assess & Plan/Chief Complaint Septic Shock PNA Acute Respiratory Failure COPD Intubated 02/02 Continue on ABX COVID testing pending Cultures NGTD MRSA screening negative- will DC [facility] consulted, appreciate assistance MAT protocol Continue Levophed DEANGELO Creatine 2.05 UOP good IDDMII Hold metformin Trend Blood sugars SSI HTN CAD Hold home antihypertensives for shock Follows with Dr Smith DVT ppx: heparin Diagnosis/Problems Diagnosis/Problems (1) DEANGELO (acute kidney injury) (2) Hyperkalemia (3) Microcytic anemia (4) Acute on chronic respiratory failure with hypoxia and hypercapnia Status: Acute (5) GERD (gastroesophageal reflux disease) Status: Chronic (6) T2DM (type 2 diabetes mellitus) Status: Chronic Clinical Quality Measures DVT/VTE Risk/Contraindication: Risk Factor Score Per Nursin RFS Level Per Nursing on Admit: 4+=Very High ARTEMIO APARICIO MD Feb 04, 2020 14:43
--- NOTE | 2020-02-04 15:39 | NUR ---
1435 DUE TO CHANGES IN STAFFING CARE OF PT TO THIS RN, REPORT RECEIVED FROM VICKY BOOTHE.
--- NOTE | 2020-02-04 17:13 | NUR ---
5003 COVID SWAB RECOLLECTED BY THIS RN PER Karen [address] WORKER
--- NOTE | 2020-02-04 21:15 | NUR ---
Phone call to E ICU, spoke to Dr Garcia. Updated on patient condition. Elevated SBP 180's at this time.
[2020-02-04] MEDS ORDERED: hydrALAZINE (APESOLINE) 20 MG/ML VIAL IV PRN (21:45)
[2020-02-05] VITALS (28 sets, daily range): BP systolic 95–217; BP diastolic 39–86
[2020-02-05] MEDS: NOREPINEPHRINE 4 MG/250 ML 250 ML IV SCH ×3 (00:42→18:43)
[2020-02-05] MEDS: NS IV 1000 ML 1,000 ML IV SCH ×2 (01:57→11:30)
[2020-02-05] MEDS: CEFEPIME INJECTION 1,000 MG in WATER (STERILE) FOR INJECTION 10 ML IV SCH ×4 (02:38→22:05)
[2020-02-05 02:45] LABS: BASOPHILS % (AUTO) 0 % (0-10); EOSINOPHILS # (AUTO) 0.2 10^3/uL (0.0-0.3); EOSINOPHILS % (AUTO) 3 % (0-10); HEMATOCRIT 26 % (35-52); HEMOGLOBIN 8.3 G/DL (11.5-16.0); LYMPHOCYTES # (AUTO) 1.8 X 10^3 (1.0-4.0); LYMPHOCYTES % (AUTO) 23 % (12-44); MEAN CORPUSCULAR HEMOGLOBIN 28 PG (25-34); MEAN CORPUSCULAR HGB CONC 32 G/DL (32-36); MEAN CORPUSCULAR VOLUME 85 FL (80-99); MEAN PLATELET VOLUME 9.9 FL (7.4-10.4); MONOCYTES # (AUTO) 0.4 X 10^3 (0.0-1.0); MONOCYTES % (AUTO) 5 % (0-12); NEUTROPHILS # (AUTO) 5.6 X 10^3 (1.8-7.8); NEUTROPHILS % (AUTO) 69 % (42-75); PLATELET COUNT 307 10^3/uL (130-400); RED CELL DISTRIBUTION WIDTH 15.2 % (10.0-14.5)
[2020-02-05 02:46] LABS: ABG BASE EXCESS -4.2 MMOL/L (-2.5-2.5); ABG OXYGEN SATURATION 94 % (94-100); ABG PCO2 33 MMHG (35-45); ABG PO2 61 MMHG (79-93); ABG TCO2 20.7 MMOL/L (21.0-31.0); ALLENS TEST ART LINE
[2020-02-05 02:47] LABS: INSPIRED O2 30%; PATIENT TEMP 37.2; VENTILATOR YES
[2020-02-05 03:08] LABS: BUN/CREATININE RATIO 16; CARBON DIOXIDE 18 MMOL/L (21-32); CHLORIDE 113 MMOL/L (98-107); CREATININE SERUM 0.85 MG/DL (0.60-1.30); GFR ESTIMATED > 60; GLUCOSE 78 MG/DL (70-105); MAGNESIUM 1.4 MG/DL (1.6-2.4); PHOSPHORUS 2.8 MG/DL (2.3-4.7); POTASSIUM 4.4 MMOL/L (3.6-5.0); SODIUM 141 MMOL/L (135-145); TRIGLYCERIDES 154 MG/DL (<150)
[2020-02-05] MEDS: POTASSIUM CL 10MEQ/50ML IVPB 50 ML IV SCH (03:15)
[2020-02-05] MEDS: inSUlin ASPART (NovoLOG) 1 UNIT/0.01 ML (CHARGE PER UNIT) SC SCH ×3 (03:15→18:43)
[2020-02-05] MEDS: MAGNESIUM 1 GM/100 ML IVPB 100 ML IV SCH ×3 (03:15→05:22)
[2020-02-05] MEDS: KCL 20 MEQ TAB (K-DUR) PO SCH (03:15)
[2020-02-05] MEDS: PROPOFOL DRIP (ICU) 100 ML IV SCH ×4 (04:44→19:57)
--- NOTE | 2020-02-05 07:13 | Diagnostic Imaging Report ---
INDICATION: Septic shock. Single AP view of the chest is obtained with comparison made to study of one day earlier. Heart size and pulmonary vascularity are within normal limits. Mild increased density in the perihilar regions may be due to atelectasis or pneumonitis. There is no consolidation, pneumothorax or significant change in positioning of support tubes. There is mild blunting of left costophrenic sulcus. Endotracheal tube reaches the mid trachea. Nasogastric tube passes below the diaphragm. IMPRESSION: Mild bilateral perihilar atelectasis and/or edema versus pneumonitis. There may be small amount of left pleural fluid or thickening. Radiograph followup would be useful. Dictated by: Dictated on workstation # [id number]
[2020-02-05] MEDS: PANTOPRAZOLE 40 MG (PROTONIX) VIAL IV SCH (08:26)
--- NOTE | 2020-02-05 09:00 | NUR ---
THIS NURSE NOTIFIED DR MARTINEZ PT SBP IS IN THE 180S. PT'S LUNGS SOUND WHEEZY AND COARSE. SEE ORDER HX.
[2020-02-05] MEDS: DexMEDEtomidine 250 ML DRIP 250 ML IV SCH ×2 (09:57→20:52)
[2020-02-05] MEDS ORDERED: RT-ALBUTEROL/IPRATROPIUM 3 ML (DUONEB) VIAL INH SCH (10:00)
[2020-02-05] MEDS: hydrALAZINE (APESOLINE) 20 MG/ML VIAL IV PRN ×2 (10:28→14:54)
--- NOTE | 2020-02-05 10:40 | NUR ---
THIS NURSE ATTEMPTED TO NOTIFIED DR APARICIO PT SBP HAS BEEN IN THE 180-190S. PT APPEARS TO BE IN PAIN . IV HYDRALAZINE GIVEN AND PT SBP REMAIN IN 180S. WILL CONTINUE TO MONITOR.
[2020-02-05] MEDS: IPRATROPIUM INHALER (ATROVENT) 12.9 GM INH SCH ×3 (11:41→19:22)
[2020-02-05] MEDS: RT-ALBUTEROL HFA (PROAIR HFA) 8.5 GM IH SCH ×3 (11:41→19:22)
--- NOTE | 2020-02-05 11:43 | NUR ---
THIS NURSE NOTIFIED DR APARICIO PT SBP HAS BEEN IN 180-190S. PT APPEARS TO BE IN PAIN. ORDERS GIVEN FOR PAIN MEDS. SEE ORDER HX. WILL CONTINUE TO MONITOR.
[2020-02-05] MEDS ORDERED: morphine INJ 4 MG/ML 1 ML (VIAL/SYRINGE) IVP PRN (11:45)
[2020-02-05] MEDS ORDERED: ALBUTEROL/IPRATROP (COMBIVENT RESPIMAT) 4 GM INHALER IH SCH (12:00)
--- NOTE | 2020-02-05 12:20 | NUR ---
CM/SS following patient. Unable to visit due to patient being sedated and intubated.
--- NOTE | 2020-02-05 13:50 | NUR ---
1335 SEDATIONS IS OFF FOR SEDATION VACATION AND SBT FOR EXERCISE. RT AT BEDSIDE TO MANAGE VENT. PT ALERT AND FOLLOWING COMMANDS. 1350 PT RR ARE IN THE 40S, HEART RATE IS IN 100S AND SBP IS IN 180S. PT IS DIAPHORETIC. RT NOTIFIED TO CHANGE VENT SETTING BACK TO PRIOR SETTING PER E-ICU. NURSE AT BEDSIDE WILL CONTINUE TO MONITOR. 1352 RT AT BEDSIDE. VENT SETTINGS RESUMED. SEDATIONS RESTARTED. NURSE AT BEDSIDE.
--- NOTE | 2020-02-05 15:20 | Progress Note - Hospitalist ---
Subjective HPI/CC On Admission Date Seen by Provider: Feb 05, 2020 Time Seen by Provider: 15:14 Pt is a 69yoCF with a PMH of COPD, CHF, HTN known to me from recent admission due to SBO who presented to the ER due SOB via EMS. She was found to be quite hypotensive and guppy breathing and in extremis. She was emergently intubated and started on pressors. She is unable to provide me any history at this time and all is obtained from the records. She was admitted to the hospital 2 weeks ago for SBO which was managed conservatively with NGT and bowel rest. She developed pneumonia and was treated with Zosyn. She was eventually discharged to IRU for continued strengthening and was discharged home with home health on 01/29. Today when home health PT arrived they were unable to get a BP and noticed her respiratory distress and called EMS for evaluation. Subjective/Events-last exam Pt remains intubated and sedated. No ROS possible. Focused Exam Lactate Level 02/03/20 13:10: Lactic Acid Level 1.03 02/03/20 14:46: Lactic Acid Level 0.52 02/04/20 10:50: Lactic Acid Level 0.57 Time of Focused Exam: 15:22 Objective Exam Vital Signs Vital Signs Date Time Temp Pulse Resp B/P (MAP) Pulse Ox O2 Delivery O2 Flow Rate FiO2 02/05/20 14:06 28 02/05/20 13:38 91 28 98 02/05/20 12:23 36.8 02/05/20 12:00 Mechanical Ventilator 02/05/20 11:00 186/63 (104) 28.00 Capillary Refill : Less Than 3 Seconds General Appearance: Chronically ill, Other (intubated) Respiratory: Decreased Breath Sounds, Other (on vent) Cardiovascular: Regular Rate, Rhythm, No Murmur Gastrointestinal: Normal Bowel Sounds, Non Tender, Soft Neurologic/Psychiatric: Other (sedated, appears comfortable) Results/Procedures Lab Laboratory Tests 02/05/20 02:35 Patient resulted labs reviewed. Imaging: Reviewed Imaging Films Assessment/Plan Assessment and Plan Assess & Plan/Chief Complaint Septic Shock PNA Acute Respiratory Failure COPD Intubated 02/02 Continue on ABX COVID testing negative Cultures NGTD MRSA screening negative- DC [facility] consulted, appreciate assistance MAT protocol Now off pressors DEANGELO Creatine back to baseline at 0.85 UOP good IDDMII Hold metformin Trend Blood sugars, within goal SSI HTN CAD Hold home antihypertensives for shock Follows with Dr Smith DVT ppx: heparin Diagnosis/Problems Diagnosis/Problems (1) DEANGELO (acute kidney injury) (2) Hyperkalemia (3) Microcytic anemia (4) Acute on chronic respiratory failure with hypoxia and hypercapnia Status: Acute (5) GERD (gastroesophageal reflux disease) Status: Chronic (6) T2DM (type 2 diabetes mellitus) Status: Chronic Clinical Quality Measures DVT/VTE Risk/Contraindication: Risk Factor Score Per Nursin RFS Level Per Nursing on Admit: 4+=Very High ARTEMIO APARICIO MD Feb 05, 2020 15:20
[2020-02-05] MEDS: 1/2 NS IV SOLUTION 1,000 ML IV SCH (16:26)
[2020-02-05] MEDS: TAMSULOSIN 0.4 MG (FLOMAX) CAP PO SCH (18:39)
[2020-02-05] MEDS: ADVAIR HFA 115/21 MCG INHALER 8 GM IH SCH (19:29)
[2020-02-05] MEDS: RANOLAZINE ER 500 MG TAB (RANEXA) PO SCH (19:47)
[2020-02-05] MEDS ORDERED: NON-FORMULARY MEDICATION 1 EA EA (Quetiapine Fumarate 50 MG) PO SCH (21:00)
[2020-02-05] MEDS ORDERED: RT-BUDESONIDE NEBS 0.5 MG/2ML (PULMICORT) AMP INH SCH (21:00)
[2020-02-05] MEDS: PREGABALIN 150 MG (LYRICA) CAPSULE PO SCH (21:03)
[2020-02-05] MEDS: rOPINIRole 1 MG (REQUIP) TABLET PO SCH (21:03)
[2020-02-05] MEDS: MONTELUKAST 10 MG (SINGULAIR) TAB PO SCH (21:03)
[2020-02-05] MEDS: QUEtiapine 25 MG (SEROquel) TAB IMMEDIATE RELEASE PO SCH (21:03)
[2020-02-06] VITALS (30 sets, daily range): BP systolic 103–159; BP diastolic 36–68
[2020-02-06] MEDS: inSUlin ASPART (NovoLOG) 1 UNIT/0.01 ML (CHARGE PER UNIT) SC SCH ×4 (01:29→18:25)
[2020-02-06] MEDS: PROPOFOL DRIP (ICU) 100 ML IV SCH (01:34)
[2020-02-06] MEDS: NOREPINEPHRINE 4 MG/250 ML 250 ML IV SCH ×3 (01:36→19:58)
[2020-02-06] MEDS: RT-ALBUTEROL HFA (PROAIR HFA) 8.5 GM IH SCH ×7 (01:37→23:34)
[2020-02-06] MEDS: IPRATROPIUM INHALER (ATROVENT) 12.9 GM INH SCH ×7 (01:37→23:34)
[2020-02-06] MEDS: CEFEPIME INJECTION 1,000 MG in WATER (STERILE) FOR INJECTION 10 ML IV SCH ×4 (03:17→23:16)
[2020-02-06 03:45] LABS: BASOPHILS % (AUTO) 0 % (0-10); EOSINOPHILS # (AUTO) 0.2 10^3/uL (0.0-0.3); EOSINOPHILS % (AUTO) 3 % (0-10); HEMATOCRIT 24 % (35-52); HEMOGLOBIN 7.9 G/DL (11.5-16.0); LYMPHOCYTES # (AUTO) 1.6 X 10^3 (1.0-4.0); LYMPHOCYTES % (AUTO) 24 % (12-44); MEAN CORPUSCULAR HEMOGLOBIN 28 PG (25-34); MEAN CORPUSCULAR HGB CONC 33 G/DL (32-36); MEAN CORPUSCULAR VOLUME 84 FL (80-99); MEAN PLATELET VOLUME 9.6 FL (7.4-10.4); MONOCYTES # (AUTO) 0.5 X 10^3 (0.0-1.0); MONOCYTES % (AUTO) 8 % (0-12); NEUTROPHILS # (AUTO) 4.4 X 10^3 (1.8-7.8); NEUTROPHILS % (AUTO) 65 % (42-75); PLATELET COUNT 247 10^3/uL (130-400); RED CELL DISTRIBUTION WIDTH 15.4 % (10.0-14.5); WHITE BLOOD COUNT 6.8 10^3/uL (4.3-11.0)
[2020-02-06 04:02] LABS: ABG BASE EXCESS -4.7 MMOL/L (-2.5-2.5); ABG OXYGEN SATURATION 93 % (94-100); ABG PCO2 30 MMHG (35-45); ABG PH 7.42 (7.37-7.43); ABG PO2 73 MMHG (79-93); ABG TCO2 20.1 MMOL/L (21.0-31.0); ALLENS TEST POSITIVE; INSPIRED O2 20; VENTILATOR NO
[2020-02-06 04:03] LABS: PATIENT TEMP 36.2
[2020-02-06 04:03] LABS: BUN/CREATININE RATIO 12; CALCIUM 7.1 MG/DL (8.5-10.1); CARBON DIOXIDE 15 MMOL/L (21-32); CHLORIDE 116 MMOL/L (98-107); CREATININE SERUM 0.74 MG/DL (0.60-1.30); GFR ESTIMATED > 60; GLUCOSE 134 MG/DL (70-105); MAGNESIUM 1.4 MG/DL (1.6-2.4); PHOSPHORUS 2.7 MG/DL (2.3-4.7); POTASSIUM 3.4 MMOL/L (3.6-5.0); SODIUM 140 MMOL/L (135-145)
[2020-02-06] MEDS: MAGNESIUM 1 GM/100 ML IVPB 100 ML IV SCH ×3 (04:52→06:04)
[2020-02-06] MEDS: POTASSIUM CL 10MEQ/50ML IVPB 50 ML IV SCH ×3 (04:52→05:04)
[2020-02-06] MEDS: KCL 20 MEQ TAB (K-DUR) PO SCH (04:52)
[2020-02-06] MEDS: 1/2 NS IV SOLUTION 1,000 ML IV SCH ×2 (04:59→17:44)
--- NOTE | 2020-02-06 05:17 | NUR ---
ALL SEDATION OFF, PT AWAKE AND FOLLOWING COMMANDS. EICU NOTIFIED. NO ORDERS TO ATTEMPT WEANING TRIAL OR EXTUBATE AT THIS TIME, NO VENT CHANGES MADE. WILL CONTINUE TO MONITOR.
[2020-02-06] MEDS: ADVAIR HFA 115/21 MCG INHALER 8 GM IH SCH ×2 (06:46→18:05)
--- NOTE | 2020-02-06 07:19 | Diagnostic Imaging Report ---
INDICATION: Shortness of breath. Comparison made with prior examination of 02/05/2020. FINDINGS: Heart size is normal. There is some venous congestion. There is a small left pleural effusion. There is no pneumothorax. Nasogastric tube remains in place. IMPRESSION: Moderate central pulmonary venous congestion with a small left pleural effusion. Dictated by: Dictated on workstation # [id number]
[2020-02-06] MEDS: PANTOPRAZOLE 40 MG (PROTONIX) VIAL IV SCH (08:14)
[2020-02-06] MEDS: RANOLAZINE ER 500 MG TAB (RANEXA) PO SCH ×2 (08:14→19:59)
[2020-02-06] MEDS: lisINopril 10 MG (PRINIVIL) TABLET PO SCH (08:14)
[2020-02-06] MEDS: PREGABALIN 150 MG (LYRICA) CAPSULE PO SCH ×2 (08:14→20:44)
[2020-02-06] MEDS ORDERED: FUROSEMIDE 40 MG/4 ML INJ (LASIX) IVP NR (08:30)
--- NOTE | 2020-02-06 08:49 | Progress Note - Hospitalist ---
Subjective HPI/CC On Admission Date Seen by Provider: Feb 06, 2020 Time Seen by Provider: 08:43 Pt is a 69yoCF with a PMH of COPD, CHF, HTN known to me from recent admission due to SBO who presented to the ER due SOB via EMS. She was found to be quite hypotensive and guppy breathing and in extremis. She was emergently intubated and started on pressors. She is unable to provide me any history at this time and all is obtained from the records. She was admitted to the hospital 2 weeks ago for SBO which was managed conservatively with NGT and bowel rest. She developed pneumonia and was treated with Zosyn. She was eventually discharged to IRU for continued strengthening and was discharged home with home health on 01/29. Today when home health PT arrived they were unable to get a BP and noticed her respiratory distress and called EMS for evaluation. Subjective/Events-last exam Pt is awake and responsive. Denies any concerns. RN at bedside, no concerns either. Focused Exam Lactate Level 02/03/20 13:10: Lactic Acid Level 1.03 02/03/20 14:46: Lactic Acid Level 0.52 02/04/20 10:50: Lactic Acid Level 0.57 Time of Focused Exam: 15:22 Objective Exam Vital Signs Vital Signs Date Time Temp Pulse Resp B/P (MAP) Pulse Ox O2 Delivery O2 Flow Rate FiO2 02/06/20 08:00 36.3 02/06/20 08:00 97 Mechanical Ventilator 24 02/06/20 08:00 49 18 147/47 (80) 24.00 Capillary Refill : Less Than 3 Seconds General Appearance: Chronically ill, Obese, Other (on vent) Respiratory: Lungs Clear, No Respiratory Distress Cardiovascular: Regular Rate, Rhythm, No Murmur Gastrointestinal: Normal Bowel Sounds, Soft Neurologic/Psychiatric: Alert (responds approprately to commands) Results/Procedures Lab Laboratory Tests 02/06/20 03:18 Patient resulted labs reviewed. Imaging: Reviewed Imaging Films Assessment/Plan Assessment and Plan Assess & Plan/Chief Complaint Septic Shock PNA Acute Respiratory Failure COPD Intubated 02/02 Continue on Abx COVID testing negative Cultures NGTD MRSA screening negative- DC [facility] consulted, appreciate assistance- discussed with them today and hopeful to extubate MAT protocol CXR reveals some vascular congestion- will give Lasix x1 dose DEANGELO Creatine back to baseline at 0.85 UOP 1.95ml/kg/hr IDDMII Hold metformin Trend Blood sugars, within goal SSI HTN CAD Resume home antihypertensives Follows with Dr Smith DVT ppx: heparin Diagnosis/Problems Diagnosis/Problems (1) DEANGELO (acute kidney injury) (2) Hyperkalemia (3) Microcytic anemia (4) Acute on chronic respiratory failure with hypoxia and hypercapnia Status: Acute (5) GERD (gastroesophageal reflux disease) Status: Chronic (6) T2DM (type 2 diabetes mellitus) Status: Chronic Clinical Quality Measures DVT/VTE Risk/Contraindication: Risk Factor Score Per Nursin RFS Level Per Nursing on Admit: 4+=Very High ARTEMIO APARICIO MD Feb 06, 2020 08:48
--- NOTE | 2020-02-06 12:00 | NUR ---
TUBE FEEDING RESIDUAL IS 15 ML. WILL CONTINUE TUBE FEEDING AT 10ML/HR.
--- NOTE | 2020-02-06 16:00 | NUR ---
TIMELINE 1013: PT IS AWAKE AND FOLLOWING COMMANDS ON PRECEDEX. RT AT BESIDE TO SET VENT TO SBT PER DR MARTINEZ ORDER. NURSE AT BEDSIDE TO MONITOR. 1135: PT IS AWAKE AND FOLLOWING COMMANDS. PT NODS THAT SHE IS GETTING TIRED. RT AT BEDSIDE TO RESUME PRIOR VENT SETTING. WILL CONTINUE TO MONITOR. 1453: PT IS AWAKE AND FOLLOWING COMMANDS. PT IS ON PRECEDEX. RT AT BESIDE TO SET VENT TO SBT PER DR MARTINEZ ORDER. NURSE AT BEDSIDE TO MONITOR. 1551: PT IS AWAKE AND FOLLOWING COMMANDS. PT NODS THAT SHE IS GETTING TIRED. PT BREATHING IS MORE LABORED. RT AT BEDSIDE TO RESUME PRIOR VENT SETTING. WILL CONTINUE TO MONITOR.
[2020-02-06] MEDS: TAMSULOSIN 0.4 MG (FLOMAX) CAP PO SCH (17:00)
--- NOTE | 2020-02-06 18:00 | NUR ---
TUBE FEEDING RESIDUAL 30ML. WILL INCREASE FEED TO 20 ML/HR.
[2020-02-06] MEDS: DexMEDEtomidine 250 ML DRIP 250 ML IV SCH (20:44)
[2020-02-06] MEDS: rOPINIRole 1 MG (REQUIP) TABLET PO SCH (20:44)
[2020-02-06] MEDS: QUEtiapine 25 MG (SEROquel) TAB IMMEDIATE RELEASE PO SCH (20:45)
[2020-02-06] MEDS: MONTELUKAST 10 MG (SINGULAIR) TAB PO SCH (20:45)
[2020-02-07] VITALS (27 sets, daily range): BP systolic 105–170; BP diastolic 39–78
--- NOTE | 2020-02-07 00:59 | NUR ---
TF RESIDUAL 25MLS
[2020-02-07] MEDS: IPRATROPIUM INHALER (ATROVENT) 12.9 GM INH SCH ×6 (01:41→21:18)
[2020-02-07] MEDS: RT-ALBUTEROL HFA (PROAIR HFA) 8.5 GM IH SCH ×6 (01:41→21:18)
[2020-02-07] MEDS: DexMEDEtomidine 250 ML DRIP 250 ML IV SCH (02:08)
[2020-02-07 03:24] LABS: BASOPHILS % (AUTO) 0 % (0-10); EOSINOPHILS # (AUTO) 0.1 10^3/uL (0.0-0.3); EOSINOPHILS % (AUTO) 1 % (0-10); HEMATOCRIT 23 % (35-52); HEMOGLOBIN 7.5 G/DL (11.5-16.0); LYMPHOCYTES # (AUTO) 1.6 X 10^3 (1.0-4.0); LYMPHOCYTES % (AUTO) 20 % (12-44); MEAN CORPUSCULAR HEMOGLOBIN 27 PG (25-34); MEAN CORPUSCULAR HGB CONC 32 G/DL (32-36); MEAN CORPUSCULAR VOLUME 85 FL (80-99); MEAN PLATELET VOLUME 10.3 FL (7.4-10.4); MONOCYTES # (AUTO) 0.6 X 10^3 (0.0-1.0); MONOCYTES % (AUTO) 8 % (0-12); NEUTROPHILS # (AUTO) 5.7 X 10^3 (1.8-7.8); NEUTROPHILS % (AUTO) 71 % (42-75); PLATELET COUNT 262 10^3/uL (130-400); RED CELL DISTRIBUTION WIDTH 15.1 % (10.0-14.5); WHITE BLOOD COUNT 8.1 10^3/uL (4.3-11.0)
[2020-02-07 03:25] LABS: ABG BASE EXCESS -1.5 MMOL/L (-2.5-2.5); ABG OXYGEN SATURATION 98 % (94-100); ABG PCO2 33 MMHG (35-45); ABG PH 7.44 (7.37-7.43); ABG PO2 106 MMHG (79-93); ABG TCO2 23.1 MMOL/L (21.0-31.0)
[2020-02-07 03:26] LABS: ALLENS TEST POSITIVE; INSPIRED O2 18; PATIENT TEMP 36.4; VENTILATOR NO
[2020-02-07 03:49] LABS: BUN/CREATININE RATIO 13; CALCIUM 6.7 MG/DL (8.5-10.1); CARBON DIOXIDE 16 MMOL/L (21-32); CHLORIDE 115 MMOL/L (98-107); CREATININE SERUM 0.64 MG/DL (0.60-1.30); GFR ESTIMATED > 60; GLUCOSE 99 MG/DL (70-105); MAGNESIUM 1.5 MG/DL (1.6-2.4); PHOSPHORUS 2.7 MG/DL (2.3-4.7); POTASSIUM 2.9 MMOL/L (3.6-5.0); SODIUM 143 MMOL/L (135-145); TRIGLYCERIDES 127 MG/DL (<150)
[2020-02-07] MEDS: NOREPINEPHRINE 4 MG/250 ML 250 ML IV SCH ×3 (04:57→21:33)
[2020-02-07] MEDS: POTASSIUM CL 10MEQ/50ML IVPB 50 ML IV SCH ×4 (05:09→07:10)
[2020-02-07] MEDS: CEFEPIME INJECTION 1,000 MG in WATER (STERILE) FOR INJECTION 10 ML IV SCH ×2 (05:09→08:04)
[2020-02-07] MEDS: MAGNESIUM 1 GM/100 ML IVPB 100 ML IV SCH ×3 (05:09→06:06)
[2020-02-07] MEDS: KCL 20 MEQ TAB (K-DUR) PO SCH (05:15)
[2020-02-07] MEDS ORDERED: POTASSIUM CL 10MEQ/50ML IVPB 50 ML IV ONE (05:15)
[2020-02-07] MEDS: inSUlin ASPART (NovoLOG) 1 UNIT/0.01 ML (CHARGE PER UNIT) SC SCH ×4 (05:23→18:11)
--- NOTE | 2020-02-07 05:23 | NUR ---
TF RESIDUAL 35MLS
[2020-02-07] MEDS: ADVAIR HFA 115/21 MCG INHALER 8 GM IH SCH ×2 (06:38→18:01)
--- NOTE | 2020-02-07 07:55 | Diagnostic Imaging Report ---
EXAM: CHEST 1 VIEW, AP/PA ONLY INDICATION: Septic shock. COMPARISON: 02/06/2020. FINDINGS: ETT between the level of the clavicles and manoj. NG tube tip in the stomach. Right CVC tip lower SVC. Normal heart size. Mild pulmonary vascular congestion. Small left pleural effusion. No focal pulmonary opacity or pneumothorax. No acute osseous findings. IMPRESSION: 1. Support lines in the expected positions. 2. Stable mild prominence of the pulmonary vascularity and small left pleural effusion. Dictated by: Dictated on workstation # [id number]
[2020-02-07] MEDS: PANTOPRAZOLE 40 MG (PROTONIX) VIAL IV SCH (08:04)
[2020-02-07] MEDS: RANOLAZINE ER 500 MG TAB (RANEXA) PO SCH ×2 (08:04→20:09)
[2020-02-07] MEDS: lisINopril 10 MG (PRINIVIL) TABLET PO SCH (08:04)
[2020-02-07] MEDS: 1/2 NS IV SOLUTION 1,000 ML IV SCH (08:04)
[2020-02-07] MEDS: PREGABALIN 150 MG (LYRICA) CAPSULE PO SCH ×2 (08:04→20:09)
--- NOTE | 2020-02-07 08:43 | Progress Note - Hospitalist ---
Subjective HPI/CC On Admission Date Seen by Provider: Feb 07, 2020 Time Seen by Provider: 08:38 Pt is a 69yoCF with a PMH of COPD, CHF, HTN known to me from recent admission due to SBO who presented to the ER due SOB via EMS. She was found to be quite hypotensive and guppy breathing and in extremis. She was emergently intubated and started on pressors. She is unable to provide me any history at this time and all is obtained from the records. She was admitted to the hospital 2 weeks ago for SBO which was managed conservatively with NGT and bowel rest. She developed pneumonia and was treated with Zosyn. She was eventually discharged to IRU for continued strengthening and was discharged home with home health on 01/29. Today when home health PT arrived they were unable to get a BP and noticed her respiratory distress and called EMS for evaluation. Subjective/Events-last exam Pt remains intubated. Sedation off and following commands. Nods head when asked if she wants the ETT out. Focused Exam Lactate Level 02/04/20 10:50: Lactic Acid Level 0.57 Time of Focused Exam: 15:22 Objective Exam Vital Signs Vital Signs Date Time Temp Pulse Resp B/P (MAP) Pulse Ox O2 Delivery O2 Flow Rate FiO2 02/07/20 08:00 36.9 02/07/20 07:00 66 02/07/20 07:00 20 138/50 (79) 95 Mechanical Ventilator 24.00 02/07/20 06:39 24 Capillary Refill : Less Than 3 Seconds General Appearance: Chronically ill, Other (on vent) Respiratory: Lungs Clear, Other (on vent) Cardiovascular: Regular Rate, Rhythm, No Murmur Gastrointestinal: Normal Bowel Sounds, Non Tender, Soft Extremity: No Calf Tenderness, No Pedal Edema Neurologic/Psychiatric: Alert (appears to answer questions appropriately) Results/Procedures Lab Laboratory Tests 02/07/20 03:13 Patient resulted labs reviewed. Imaging: Reviewed Imaging Films Assessment/Plan Assessment and Plan Assess & Plan/Chief Complaint Septic Shock PNA Acute Respiratory Failure COPD Intubated 02/02, continue sedation vacations for exercise per [employer] recs Continue on Abx COVID testing negative Cultures NGTD MRSA screening negative [employer] consulted, appreciate assistance MAT protocol PT/OT ordered given how alert she is and able to follow commands, I called and spoke with them about doing EOB exercises with her while awake DEANGELO- resolved Hypokalemia Hypomagnesemia Creatine back to baseline at 0.64 UOP 2.00 ml/kg/hr Replace electrolytes per protocol IDDMII Hold metformin Trend Blood sugars, within goal SSI HTN CAD Resume home antihypertensives Follows with Dr Smith DVT ppx: heparin Diagnosis/Problems Diagnosis/Problems (1) DEANGELO (acute kidney injury) (2) Hyperkalemia (3) Microcytic anemia (4) Acute on chronic respiratory failure with hypoxia and hypercapnia Status: Acute (5) GERD (gastroesophageal reflux disease) Status: Chronic (6) T2DM (type 2 diabetes mellitus) Status: Chronic Clinical Quality Measures DVT/VTE Risk/Contraindication: Risk Factor Score Per Nursin RFS Level Per Nursing on Admit: 4+=Very High ARTEMIO APARICIO MD Feb 07, 2020 08:43
--- NOTE | 2020-02-07 09:31 | Physical Therapy Evaluation ---
PT Evaluation-General Medical Diagnosis Admission Date Feb 03, 2020 at 14:51 Medical Diagnosis: acute resp failure, septic shock, PNA Onset Date: Feb 03, 2020 Therapy Diagnosis Therapy Diagnosis: impaired mobility, strength Height/Weight Height (Feet): 5 Height (Inches): 1.00 Weight (Pounds): 162 Weight (Ounces): 0.0 Precautions Precautions/Isolations: Aspiration, Fall Prevention, Pressure Ulcer Weight Bear Status Right Lower Extremity: Right Weight Bearing/Tolerated Left Lower Extremity: Left Weight Bearing/Tolerated Referral Physician: Deuce Reason for Referral: Evaluation/Treatment Medical History Pertinent Medical History: Arthritis, COPD, DM, HTN Additional Medical History Past Medical History Surgeries: Appendectomy, Coronary Stent, Gallbladder, 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, Vascular Surgery Respiratory: Asthma, Chronic Bronchitis, COPD, Emphysema, Pneumonia Currently Using CPAP: No Currently Using BIPAP: No Cardiac: Chronic Edema/Swelling, High Cholesterol, Hypertension Neurological: Headaches /Migraines, Neuropathy 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: No 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 Gastrointestinal: Obstructive Bowel, Hiatal Hernia Musculoskeletal: Arthritis, Fibromyalgia, Chronic Back Pain Endocrine: Diabetes, Non-Insulin dep Loss of Vision: Denies Hearing Impairment: Denies Psychosocial: Anxiety, Depression Skin/Integumentary: Recent Skin Changes History of Blood Disorders: No Adverse Reaction to Blood [place]: No (N/A) Reviewed History: Yes Social History Current Living Status: Spouse Entry Into Home: Stairs With Railing PT Steps Into Home: 4 Prior Prior Level of Function SCALE: Activities may be completed with or without assistive devices. 9-Rfbscsxvsb-oepihnq completes the activity by him/herself with no assistance from a helper. 5-Set-up or Clean-up Assistance-helper sets up or cleans up; patient completes activity. [place] assists only prior to or following the activity. 4-Supervision or Touching Assistance-helper provides verbal cues and/or touching/steadying and/or contact guard assistance as patient completes activity. Assistance may be provided throughout the activity or intermittently. 3-Partial/Moderate Assistance-helper does LESS THAN HALF the effort. [place] lifts, holds or supports trunk or limbs, but provides less than half the effort. 2-Substantial/Maximal Assistance-helper does MORE THAN HALF the effort. [place] lifts or holds trunk or limbs and provides more than half the effort. 3-Tzsvixzfj-ldyrea does ALL the effort. Patient does none of the effort to complete the activity. Or, the assistance of 2 or more helpers is required for the patient to complete the activity. If activity was not attempted, code reason: 7-Patient Refused. 9-Not Applicable-not attempted and the patient did not perform the activity before the current illness, exacerbation or injury. 10-Not Attempted due to Environmental Limitations-(lack of equipment, weather restraints, etc.). 88-Not Attempted due to Medical Conditions or Safety Concerns. Bed Mobility: 6 Transfers (B,C,W/C): 6 Gait: 6 Stairs: 6 Indoor Mobility (Ambulation): Independent Stairs: Independent PT Evaluation-Current Subjective Patient in bed pre tx, agrees to PT, patient is still intubated but alert, she can nod yes or no to questions, she indicates that she doesn't have any pain other than her intubation tube. Pt/Family Goals none stated Objective Patient Orientation: Person, Unable to Assess Attachments: Ventilator, Sheth Catheter, IV ROM/Strength ROM Lower Extremities WNL Strength Lower Extremities 5/5 gross RLE, 4+/5 gross LLE Sensory Hearing: Functional Sensation Right Lower Extremit: Intact Sensation Left Lower Extremity: Intact Treatment BLE supine exercises x15 (AP, HS, QS). Patient instructed to perform exercises 3 times a day for 15 reps each to improve strength and try to prevent DVT's. Patient in bed post tx with nurse call, phone, tray, all needs met. Assessment/Needs Patient has impaired mobility, strength, endurance. She can communicate with nodding yes/no. Rehab Potential: Fair PT Floor Scrubber Goals Floor Scrubber Goals PT Floor Scrubber Goals Time Frame: Feb 14, 2020 Roll Left & Right (QC): 6 Sit to Lying (QC): 6 Lying-Sitting on Side/Bed(QC): 6 Sit to Stand (QC): 6 Chair/Cbi-bc-Bfovm Xfer(QC): 6 Walk 10 feet (QC): 6 Walk 50ft with 2 Turns (QC): 6 PT Plan Problem List Problem List: Activity Tolerance, Functional Strength, Safety, Balance, Gait, Transfer, Bed Mobility Treatment/Plan Treatment Plan: Continue Plan of Care Treatment Plan: Bed Mobility, Education, Functional Activity Nito, Functional Strength, Gait, Safety, Therapeutic Exercise, Transfers Treatment Duration: Feb 14, 2020 Frequency: 6 times per week Estimated Hrs Per Day: .25 hour per day Patient and/or Family Agrees t: Yes Safety Risks/Education Patient Education: Correct Positioning, Safety Issues Teaching Recipient: Patient Teaching Methods: Demonstration, Discussion Response to Teaching: Reinforcement Needed Discharge Recommendations Plan Patient will perform bed mobility and transfer training, balance and endurance training, functional strengthening, stair training, gait training and education, to improve functional mobility and independence at home. Therapy Discharge Recommendati: Home & Family Time/GCodes Time In: 912 Time Out: 923 Total Billed Treatment Time: 11 Total Billed Treatment 1 visit PRIMITIVO 11' TIARA LOPEZ PT Feb 07, 2020 09:31
[2020-02-07] MEDS: cefTRIAXone FOR IV USE 1,000 MG in WATER (STERILE) FOR INJECTION 10 ML IV SCH (10:35)
[2020-02-07 11:07] LABS: BUN/CREATININE RATIO 11; CALCIUM 8.1 MG/DL (8.5-10.1); CARBON DIOXIDE 21 MMOL/L (21-32); CHLORIDE 109 MMOL/L (98-107); CREATININE SERUM 0.79 MG/DL (0.60-1.30); GFR ESTIMATED > 60; GLUCOSE 134 MG/DL (70-105); SODIUM 142 MMOL/L (135-145)
--- NOTE | 2020-02-07 12:00 | NUR ---
TUBE FEEDING RESIDUAL 30 ML. TUBE FEEDING ON HOLD FOR POSSIBLE EXTUBATION.
[2020-02-07] MEDS ORDERED: FUROSEMIDE 40 MG/4 ML INJ (LASIX) IVP ONE (12:45)
--- NOTE | 2020-02-07 13:30 | NUR ---
TIMELINE 1055-THIS NURSE CALLED E-ICU AND UPDATED DR BARBA ON PT CONDITION. ORDERS GIVING FOR WEANING. SEE ORDER HX. 1123- RT MADE VENT SETTING CHANGES PER DR KOHLER ORDER. NURSE AT BEDSIDE. PT IS ALERT AND FOLLOWING COMMANDS. PT TOLERATING VENT CHANGES WELL. WILL CONTINUE TO MONITOR. 1232- THIS NURSE NOTIFIED EICU PT IS TOLERATING WEANING WELL. PT IS ALERT AND FOLLOWING COMMANDS. DR KOHLER ASSESSED PT. ORDERS GIVEN TO EXTUBATE TO BIPAP. BIPAP FOR AT LEAST AN HOUR. NURSE AT BEDSIDE. RT NOTIFIED. 1245- RT AT BEDSIDE AND DR KOHLER ON CAMERA. PT ALERT AND APPROPRIATE. ETT TUBE AND OGT WERE REMOVED BY RT. NURSE TO SUCTION ORAL SECRETIONS. RESTRAINTS REMOVED. PT PLACED ON BIPAP PER ORDER. PT IS ALERT AND ORIENTED. VITALS ARE STABLE. PT IS BREATHING COMFORTABLY. NURSE AT BEDSIDE TO MONITOR. 1405-THIS NURSE CALLED EICU AND UPDATED DR KOHLER THAT PT IS TOLERATING BIPAP. OXYGEN SATURATIONS ARE IN THE HIGH 90S. ORDERS GIVEN FOR NASAL CANNULA AND TO KEEP OXYGEN SATURATIONS GREATER THAN 92%. IF PT TOLERATES NASAL CANNULA, NURSE TO DO A BEDSIDE SWALLOW IN 2 HOURS. 1408- PT PLACED ON NC AT 3L. PT IS BREATHING COMFORTABLY WITH OXYGEN SATURATIONS 97-98%. WILL CONTINUE TO MONITOR.
[2020-02-07] MEDS: SODIUM BICARBONATE 650 MG TABLET (NON-FORMULARY) NG SCH ×2 (14:23→20:09)
[2020-02-07] MEDS ORDERED: ACETAMINOPHEN 650 MG SUPP (TYLENOL) PR ONE (16:15)
[2020-02-07] MEDS: TAMSULOSIN 0.4 MG (FLOMAX) CAP PO SCH (18:16)
[2020-02-07] MEDS: QUEtiapine 25 MG (SEROquel) TAB IMMEDIATE RELEASE PO SCH (20:09)
[2020-02-07] MEDS: MONTELUKAST 10 MG (SINGULAIR) TAB PO SCH (20:09)
[2020-02-07] MEDS: rOPINIRole 1 MG (REQUIP) TABLET PO SCH (20:09)
[2020-02-08] VITALS (24 sets, daily range): BP systolic 97–158; BP diastolic 33–111
[2020-02-08] MEDS: RT-ALBUTEROL HFA (PROAIR HFA) 8.5 GM IH SCH ×6 (02:02→22:15)
[2020-02-08] MEDS: IPRATROPIUM INHALER (ATROVENT) 12.9 GM INH SCH ×6 (02:03→22:15)
[2020-02-08 05:54] LABS: BASOPHILS % (AUTO) 0 % (0-10); EOSINOPHILS # (AUTO) 0.2 10^3/uL (0.0-0.3); EOSINOPHILS % (AUTO) 2 % (0-10); HEMATOCRIT 27 % (35-52); HEMOGLOBIN 8.9 G/DL (11.5-16.0); LYMPHOCYTES # (AUTO) 1.7 X 10^3 (1.0-4.0); LYMPHOCYTES % (AUTO) 25 % (12-44); MEAN CORPUSCULAR HEMOGLOBIN 28 PG (25-34); MEAN CORPUSCULAR HGB CONC 33 G/DL (32-36); MEAN CORPUSCULAR VOLUME 85 FL (80-99); MONOCYTES # (AUTO) 0.6 X 10^3 (0.0-1.0); MONOCYTES % (AUTO) 9 % (0-12); NEUTROPHILS # (AUTO) 4.3 X 10^3 (1.8-7.8); NEUTROPHILS % (AUTO) 63 % (42-75); PLATELET COUNT 287 10^3/uL (130-400); RED CELL DISTRIBUTION WIDTH 15.4 % (10.0-14.5); WHITE BLOOD COUNT 6.8 10^3/uL (4.3-11.0)
[2020-02-08 06:07] LABS: BUN/CREATININE RATIO 10; CARBON DIOXIDE 26 MMOL/L (21-32); CHLORIDE 107 MMOL/L (98-107); GFR ESTIMATED > 60; GLUCOSE 132 MG/DL (70-105); MAGNESIUM 1.7 MG/DL (1.6-2.4); POTASSIUM 3.5 MMOL/L (3.6-5.0); SODIUM 143 MMOL/L (135-145)
[2020-02-08] MEDS: MAGNESIUM 1 GM/100 ML IVPB 100 ML IV SCH ×3 (06:16→08:52)
[2020-02-08] MEDS: POTASSIUM CL 10MEQ/50ML IVPB 50 ML IV SCH (06:16)
[2020-02-08] MEDS: KCL 20 MEQ TAB (K-DUR) PO SCH (06:16)
[2020-02-08] MEDS: NOREPINEPHRINE 4 MG/250 ML 250 ML IV SCH (06:17)
[2020-02-08] MEDS: inSUlin ASPART (NovoLOG) 1 UNIT/0.01 ML (CHARGE PER UNIT) SC SCH ×4 (06:17→20:49)
[2020-02-08] MEDS: ADVAIR HFA 115/21 MCG INHALER 8 GM IH SCH ×2 (06:50→17:53)
--- NOTE | 2020-02-08 07:17 | Diagnostic Imaging Report ---
INDICATION: Sepsis. Comparison made with prior examination from 02/07/2020. FINDINGS: Heart size is normal. There is mild venous congestion. There is no pleural effusion or pneumothorax. Endotracheal tube has been removed. IMPRESSION: Interval extubation was some mild central pulmonary venous congestion. Dictated by: Dictated on workstation # [id number]
[2020-02-08] MEDS: SODIUM BICARBONATE 650 MG TABLET (NON-FORMULARY) NG SCH (08:26)
[2020-02-08] MEDS: lisINopril 10 MG (PRINIVIL) TABLET PO SCH (08:26)
[2020-02-08] MEDS: PREGABALIN 150 MG (LYRICA) CAPSULE PO SCH ×2 (08:26→20:48)
[2020-02-08] MEDS: RANOLAZINE ER 500 MG TAB (RANEXA) PO SCH ×2 (08:26→20:48)
[2020-02-08] MEDS: cefTRIAXone FOR IV USE 1,000 MG in WATER (STERILE) FOR INJECTION 10 ML IV SCH (08:27)
[2020-02-08] MEDS: PANTOPRAZOLE 40 MG (PROTONIX) VIAL IV SCH (08:27)
[2020-02-08] MEDS: FUROSEMIDE 40 MG/4 ML INJ (LASIX) IVP SCH (08:27)
[2020-02-08] MEDS ORDERED: KCL 20 MEQ TAB (K-DUR) PO ONE (09:00)
[2020-02-08] MEDS ORDERED: CYCLOBENZAPRINE 10 MG (FLEXERIL) TAB PO PRN (09:00)
[2020-02-08] MEDS ORDERED: ONDANSETRON 4 MG (ZOFRAN) ORAL DISSOLVE TAB PO PRN (09:00)
[2020-02-08] MEDS ORDERED: FUROSEMIDE 20 MG (LASIX) TAB PO SCH (09:00)
[2020-02-08] MEDS ORDERED: NON-FORMULARY MEDICATION 1 EA EA (Oxycodone HCl 30 MG) PO PRN (09:00)
[2020-02-08] MEDS ORDERED: ADVAIR HFA 115/21 MCG INHALER 8 GM IH SCH (09:00)
[2020-02-08] MEDS ORDERED: ACETAMINOPHEN 500 MG TAB (TYLENOL) PO PRN (09:00)
[2020-02-08] MEDS ORDERED: MECLIZINE 25 MG (ANTIVERT) TAB PO PRN (09:00)
--- NOTE | 2020-02-08 09:27 | Progress Note - Hospitalist ---
Subjective HPI/CC On Admission Date Seen by Provider: Feb 08, 2020 Time Seen by Provider: 09:22 Pt is a 69yoCF with a PMH of COPD, CHF, HTN known to me from recent admission due to SBO who presented to the ER due SOB via EMS. She was found to be quite hypotensive and guppy breathing and in extremis. She was emergently intubated and started on pressors. She is unable to provide me any history at this time and all is obtained from the records. She was admitted to the hospital 2 weeks ago for SBO which was managed conservatively with NGT and bowel rest. She developed pneumonia and was treated with Zosyn. She was eventually discharged to IRU for continued strengthening and was discharged home with home health on 01/29. Today when home health PT arrived they were unable to get a BP and noticed her respiratory distress and called EMS for evaluation. Subjective/Events-last exam Pt reports feeling much better. Focused Exam Time of Focused Exam: 15:22 Objective Exam Vital Signs Vital Signs Date Time Temp Pulse Resp B/P (MAP) Pulse Ox O2 Delivery O2 Flow Rate FiO2 02/08/20 08:00 36.4 02/08/20 08:00 54 17 141/86 (104) 96 Nasal Cannula 3.00 02/07/20 12:00 24 Capillary Refill : Less Than 3 Seconds General Appearance: No Apparent Distress, Chronically ill Respiratory: Lungs Clear, No Respiratory Distress Cardiovascular: Regular Rate, Rhythm, No Murmur Gastrointestinal: Normal Bowel Sounds, Non Tender, Soft Neurologic/Psychiatric: Alert, Oriented x3 Results/Procedures Lab Laboratory Tests 02/07/20 10:39 02/08/20 05:40 Patient resulted labs reviewed. Imaging: Reviewed Imaging Films Assessment/Plan Assessment and Plan Assess & Plan/Chief Complaint Septic Shock PNA Acute Respiratory Failure COPD Extubated 02/07 Continue on Abx COVID testing negative Cultures NGTD MRSA screening negative [facility] consulted, appreciate assistance MAT protocol PT/OT DEANGELO- resolved Hypokalemia Hypomagnesemia Creatine back to baseline at 0.64 UOP 2.35 ml/kg/hr Replace electrolytes per protocol IDDMII Hold metformin Trend Blood sugars, within goal SSI HTN CAD Resume home antihypertensives Follows with Dr Smith DVT ppx: heparin Diagnosis/Problems Diagnosis/Problems (1) DEANGELO (acute kidney injury) (2) Hyperkalemia (3) Microcytic anemia (4) Acute on chronic respiratory failure with hypoxia and hypercapnia Status: Acute (5) GERD (gastroesophageal reflux disease) Status: Chronic (6) T2DM (type 2 diabetes mellitus) Status: Chronic Clinical Quality Measures DVT/VTE Risk/Contraindication: Risk Factor Score Per Nursin RFS Level Per Nursing on Admit: 4+=Very High ARTEMIO APARICIO MD Feb 08, 2020 09:27
[2020-02-08] MEDS: FAMOTIDINE 20 MG (PEPCID) TABLET PO SCH ×2 (10:07→20:48)
--- NOTE | 2020-02-08 11:15 | NUR ---
[employer] responded to referral for Advance Directives. Pt now had DPOA and LW on file. [employer] also offered blessing.
[2020-02-08] MEDS: KCL 10 MEQ TAB (MICRO K) PO SCH ×3 (11:42→20:48)
[2020-02-08] MEDS: ENOXAPARIN 40 MG/0.4 ML (LOVENOX) SYR SC SCH (11:42)
[2020-02-08] MEDS: DICYCLOMINE 10 MG (BENTYL) CAP PO SCH ×2 (11:42→20:48)
[2020-02-08] MEDS: LORATADINE (CLARITIN) 10 MG TAB PO SCH (11:42)
[2020-02-08] MEDS: ASPIRIN E.C. 81 MG (ECOTRIN) TAB PO SCH (11:42)
[2020-02-08] MEDS: METOCLOPRAMIDE 10 MG (REGLAN) TAB PO SCH ×4 (11:53→20:49)
[2020-02-08] MEDS: SENNA W/DOCUSATE (SENOKOT S) TABLET PO SCH ×2 (11:53→20:49)
[2020-02-08] MEDS ORDERED: ALPRAZolam 1 MG (XANAX) TAB PO SCH ×2 (12:00→21:00)
[2020-02-08] MEDS: FLUTICASONE NASAL SPRAY (FLONASE) 16 GM BTL NS SCH (12:04)
[2020-02-08] MEDS: TAMSULOSIN 0.4 MG (FLOMAX) CAP PO SCH (18:10)
[2020-02-08] MEDS: PANTOPRAZOLE 20 MG TABLET (PROTONIX) PO SCH (20:48)
[2020-02-08] MEDS: rOPINIRole 1 MG (REQUIP) TABLET PO SCH (20:49)
[2020-02-08] MEDS: MONTELUKAST 10 MG (SINGULAIR) TAB PO SCH (20:49)
[2020-02-08] MEDS: QUEtiapine 25 MG (SEROquel) TAB IMMEDIATE RELEASE PO SCH (20:49)
[2020-02-09] VITALS (9 sets, daily range): BP systolic 107–166; BP diastolic 46–80
--- NOTE | 2020-02-09 00:12 | NUR ---
This RN notified Dr. Tripathi of decreased UOP, 15ml/hour over last two hours.
[2020-02-09] MEDS: IPRATROPIUM INHALER (ATROVENT) 12.9 GM INH SCH ×4 (02:19→13:41)
[2020-02-09] MEDS: RT-ALBUTEROL HFA (PROAIR HFA) 8.5 GM IH SCH ×4 (02:19→13:41)
[2020-02-09 02:31] LABS: BASOPHILS % (AUTO) 0 % (0-10); EOSINOPHILS # (AUTO) 0.2 10^3/uL (0.0-0.3); EOSINOPHILS % (AUTO) 2 % (0-10); HEMATOCRIT 30 % (35-52); HEMOGLOBIN 9.6 G/DL (11.5-16.0); LYMPHOCYTES # (AUTO) 2.5 X 10^3 (1.0-4.0); LYMPHOCYTES % (AUTO) 25 % (12-44); MEAN CORPUSCULAR HEMOGLOBIN 27 PG (25-34); MEAN CORPUSCULAR HGB CONC 32 G/DL (32-36); MEAN CORPUSCULAR VOLUME 86 FL (80-99); MEAN PLATELET VOLUME 10.3 FL (7.4-10.4); MONOCYTES # (AUTO) 0.8 X 10^3 (0.0-1.0); MONOCYTES % (AUTO) 8 % (0-12); NEUTROPHILS # (AUTO) 6.6 X 10^3 (1.8-7.8); NEUTROPHILS % (AUTO) 65 % (42-75); PLATELET COUNT 324 10^3/uL (130-400); RED CELL DISTRIBUTION WIDTH 15.6 % (10.0-14.5); WHITE BLOOD COUNT 10.2 10^3/uL (4.3-11.0)
[2020-02-09 02:58] LABS: BUN/CREATININE RATIO 16; CALCIUM 8.3 MG/DL (8.5-10.1); CARBON DIOXIDE 27 MMOL/L (21-32); CHLORIDE 108 MMOL/L (98-107); CREATININE SERUM 0.81 MG/DL (0.60-1.30); GFR ESTIMATED > 60; GLUCOSE 123 MG/DL (70-105); MAGNESIUM 2.1 MG/DL (1.6-2.4); PHOSPHORUS 3.2 MG/DL (2.3-4.7); POTASSIUM 3.8 MMOL/L (3.6-5.0); SODIUM 146 MMOL/L (135-145)
--- NOTE | 2020-02-09 04:17 | Pulmonary Consultation ---
History of Present Illness History of Present Illness Date Seen by Provider: Feb 09, 2020 Time Seen by Provider: 04:12 Date of Admission Allergies and Home Medications Allergies Coded Allergies: Iodinated Contrast Media (Verified Allergy, Mild, HIVES, 12/08/19) linezolid (Verified Allergy, Mild, HIVE, 12/08/19) Home Medications Albuterol Sulfate 2.5 Mg/3 Ml Vial.neb, 2.5 MG NEB QID PRN for SHORTNESS OF BREATH, (Reported) Albuterol/Ipratropium 4 Gm Aero, 1 PUFF IH QID, (Reported) Alprazolam 1 Mg Tablet, 1 MG PO 0800,1200, (Reported) Alprazolam 1 Mg Tablet, 0.5 MG PO HS, (Reported) Aspirin 81 Mg Tablet.dr, 81 MG PO DAILY, (Reported) Atorvastatin Calcium 10 Mg Tablet, 10 MG PO HS, (Reported) Bethanechol Chloride 10 Mg Tablet, 10 MG PO BID Prescribed by: RANDAL QIU on 01/30/20 104 Cetirizine HCl 10 Mg Tablet, 10 MG PO DAILY, (Reported) Cyanocobalamin 1,000 Mcg/Ml Inj, 1,000 MCG IM ONCE, (Reported) Cyclobenzaprine HCl 10 Mg Tablet, 10 MG PO TID PRN for MUSCLE SPASMS, (Reported) Dicyclomine HCl 10 Mg Capsule, 10 MG PO BID, (Reported) Fluticasone Propionate 9.9 Ml [place].susp, 1 SPRAY NS DAILY, (Reported) 1 SPRAY EACH NARE DAILY Fluticasone/Salmeterol 1 Each Blst.w.dev, 1 PUFF IH BID, (Reported) Furosemide 20 Mg Tablet, 20 MG PO DAILY, (Reported) Insulin Glargine,Hum.rec.anlog 100 Unit/1 Ml Insuln.pen, 10 UNIT SQ HS, (Reported) Lisinopril 10 Mg Tablet, 10 MG PO DAILY Prescribed by: RANDAL QIU on 01/29/202121 Meclizine HCl 25 Mg Tablet, 25 MG PO TID PRN for VERTIGO, (Reported) Metformin HCl 1,000 Mg Tablet, 1,000 MG PO BID WITH MEALS, (Reported) Metoclopramide HCl 10 Mg Tablet, 10 MG PO QID, (Reported) Montelukast Sodium 10 Mg Tablet, 10 MG PO HS, (Reported) Omeprazole 20 Mg Capsule.dr, 20 MG PO BID, (Reported) Ondansetron 4 Mg Tab.rapdis, 4 MG PO Q6H PRN for NAUSEA/VOMITING-1ST LINE Prescribed by: RANDAL QIU on 01/29/202121 Oxycodone HCl 30 Mg Tablet, 30 MG PO Q6H PRN for PAIN-SEVERE (8-10), (Reported) Oxycodone HCl 15 Mg Tablet, 15 MG PO Q6H Prescribed by: RANDAL QIU on 01/29/202121 Potassium Chloride 10 Meq Tab.er.prt, 10 MEQ PO TID, (Reported) Pregabalin 150 Mg Capsule, 150 MG PO BID, (Reported) Quetiapine Fumarate 50 Mg Tablet, 50 MG PO HS, (Reported) Ranitidine HCl 150 Mg Tablet, 150 MG PO BID, (Reported) Ranolazine 500 Mg Tab.er.12h, 500 MG PO BID, (Reported) Ropinirole HCl 1 Mg Tablet, 1 MG PO HS, (Reported) Sennosides/Docusate Sodium 1 Each Tablet, 1 EA PO BID Prescribed by: RANDAL QIU on 01/29/202121 Tamsulosin HCl 0.4 Mg Cap, 0.4 MG PO DAILY@1800 Prescribed by: RANDAL QIU on 01/29/202121 Past Kqxhjbh-Izmpaj-Dridto Hx Past Med/Social Hx: Reviewed Nursing Past Med/Soc Hx Patient Social History Alcohol Use: Denies Use Number of Drinks Today: GG Alcohol Beverage of Choice: Rum, Whiskey, [place], Vodka Recreational Drug Use: No Smoking Status: Current Everyday Smoker Type Used: Cigarettes 2nd Hand Smoke Exposure: Yes Recent Foreign Travel: No Contact w/Someone Who Travel: No Recent Infectious Disease Expo: No Recent Hopitalizations: Yes Physical Abuse: No Sexual Abuse: No Mistreated: No Fear: No Immunizations Up To Date Tetanus Booster (TDap): Unknown Date of Pneumonia Vaccine: Sep 16, 2019 Date of Influenza Vaccine: Sep 15, 2019 Seasonal Allergies Seasonal Allergies: Yes Past Medical History Surgeries: Yes (several exploratomy laparotomies, hernia with mesh) Appendectomy, Coronary Stent, Gallbladder, 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, Vascular Surgery Respiratory: Yes (HOME 02- 3L ) Pneumonia, Chronic Bronchitis, COPD Currently Using CPAP: No Currently Using BIPAP: No Cardiac: Yes (CHF) Chronic Edema/Swelling, High Cholesterol, Hypertension Neurological: Yes Headaches /Migraines, Neuropathy : No 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 Disorders: 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 Genitourinary: No Gastrointestinal: Yes (SEVERAL BOWEL OBSTRUCTIONS, chronic abd pain) Obstructive Bowel, Hiatal Hernia Musculoskeletal: Yes Arthritis, Fibromyalgia, Chronic Back Pain Endocrine: Yes Diabetes, Non-Insulin dep HEENT: Yes (GLASSES) Loss of Vision: Denies Hearing Impairment: Denies Cancer: No Psychosocial: Yes Anxiety, Depression Integumentary: Yes (CHRONIC ABDOMINAL WOUND- MRSA) Recent Skin Changes Blood Disorders: No Adverse Reaction/Blood Tranf: No (N/A) Family Medical History Colon cancer G8 BROTHER (PANCREATIC) Dementia 19 MOTHER G8 BROTHER Hypertension 19 MOTHER Myocardial infarction G8 BROTHER Diabetes, Hypertension, Other Conditions/Hx Review of Systems Time Seen by Provider: 04:20 Sepsis Event Evaluation Height, Weight, BMI Height: 5'1.00" Weight: 162lbs. 0.0oz. [id number]; 32.04 BMI Method:Stated Exam Exam Vital Signs Date Time Temp Pulse Resp B/P (MAP) Pulse Ox O2 Delivery O2 Flow Rate FiO2 02/09/20 04:00 73 16 137/61 (86) 98 Nasal Cannula 3.00 02/09/20 03:00 79 16 133/60 (84) 99 Nasal Cannula 3.00 02/09/20 02:00 61 15 107/46 (66) 99 Nasal Cannula 3.00 02/09/20 01:00 78 02/09/20 01:00 78 16 121/47 (71) 99 Nasal Cannula 3.00 02/09/20 00:00 36.4 02/09/20 00:00 75 19 140/49 (79) 99 Nasal Cannula 3.00 02/08/20 23:00 72 14 111/49 (69) 99 Nasal Cannula 3.00 02/08/20 22:00 80 18 127/52 (77) 97 Nasal Cannula 3.00 02/08/20 21:00 66 20 146/70 (95) 98 Nasal Cannula 3.00 02/08/20 20:00 71 19 141/52 (81) 98 Nasal Cannula 3.00 02/08/20 20:00 36.5 02/08/20 19:00 91 02/08/20 19:00 91 18 131/74 (93) 93 Nasal Cannula 3.00 02/08/20 18:00 67 17 137/58 (84) 96 Nasal Cannula 3.00 02/08/20 17:50 96 Nasal Cannula 3.00 02/08/20 17:00 79 16 141/68 (92) 96 Nasal Cannula 3.00 02/08/20 16:00 Nasal Cannula 3.00 02/08/20 16:00 87 28 144/68 (93) 96 Nasal Cannula 3.00 02/08/20 15:35 37.2 02/08/20 15:00 72 23 108/96 (100) 95 Nasal Cannula 3.00 02/08/20 14:45 97 Nasal Cannula 3.00 02/08/20 14:44 97 Nasal Cannula 3.00 02/08/20 14:00 87 21 150/74 (99) 100 Nasal Cannula 3.00 02/08/20 13:00 92 02/08/20 13:00 90 23 154/75 (101) 99 Nasal Cannula 3.00 02/08/20 12:00 Nasal Cannula 3.00 02/08/20 12:00 77 19 157/111 (126) 97 Nasal Cannula 3.00 02/08/20 11:00 72 22 150/63 (92) 92 Nasal Cannula 3.00 02/08/20 10:34 97 Nasal Cannula 3.00 02/08/20 10:31 94 Nasal Cannula 3.00 02/08/20 10:00 63 10 158/74 (102) 93 Nasal Cannula 3.00 02/08/20 09:00 64 19 132/65 (87) 96 Nasal Cannula 3.00 02/08/20 08:00 36.4 02/08/20 08:00 54 17 141/86 (104) 96 Nasal Cannula 3.00 02/08/20 08:00 Nasal Cannula 3.00 02/08/20 07:00 51 02/08/20 07:00 52 13 114/47 (69) 96 Nasal Cannula 3.00 02/08/20 06:55 97 Nasal Cannula 3.00 02/08/20 06:53 97 Nasal Cannula 3.00 02/08/20 06:51 97 Nasal Cannula 3.00 02/08/20 06:00 48 15 112/43 (66) 98 Nasal Cannula 3.00 02/08/20 05:00 43 17 97/33 (54) 99 Nasal Cannula 3.00 I & O 02/09/20 07:00 Intake Total 1340 ml Output Total 1200 ml Balance 140 ml Height & Weight Height: 5'1.00" Weight: 162lbs. 0.0oz. 73.102060qz; 32.04 BMI Method:Stated General Appearance: No Apparent Distress, Chronically ill HEENT: PERRL/EOMI, Moist Mucous Membranes; No Scleral Icterus (L), No Scleral Icterus (R) Neck: Normal Inspection; No Thyromegaly Respiratory: Lungs Clear, No Respiratory Distress Cardiovascular: Regular Rate, Rhythm, No Murmur Capillary Refill: Less Than 3 Seconds Peripheral Pulses: 1+ Radial Pulses (R), 1+ Radial Pulses (L) Gastrointestinal: normal bowel sounds, non tender, soft Extremity: No Calf Tenderness, No Pedal Edema Neurologic/Psychiatric: Alert, Oriented x3 Skin: Normal Color, Warm/Dry Results Lab Laboratory Tests 02/07/20 10:39 02/08/20 05:40 02/09/20 02:19 Assessment/Plan Assessment/Plan Acute respiratory failure s/p vent -currently on 3 liters NC COPD -SVNS PNA -Rocephin -Cultures are negative thus far\\ -COVID is neg -MRSA is negative -No fevers Septic shock -Not currently on pressors -IVF are SL Hx of CHF DEANGELO - resolved IDDMII SSI HTN CAD Follows with QING Spencer DO Feb 09, 2020 04:16
[2020-02-09] MEDS: inSUlin ASPART (NovoLOG) 1 UNIT/0.01 ML (CHARGE PER UNIT) SC SCH ×2 (05:31→11:19)
--- NOTE | 2020-02-09 06:31 | NUR ---
Patient awake and following commands, RT called to bedside and patient extubated at 0631. VSS, patient resting comfortably. Will continue to monitor. Addendum: 02/09/20 at 0640 by JÚNIOR ZAVALETA RN Please disregard previous note, wrong patient.
[2020-02-09] MEDS: ADVAIR HFA 115/21 MCG INHALER 8 GM IH SCH (07:30)
[2020-02-09] MEDS: DICYCLOMINE 10 MG (BENTYL) CAP PO SCH (07:59)
[2020-02-09] MEDS: RANOLAZINE ER 500 MG TAB (RANEXA) PO SCH (07:59)
[2020-02-09] MEDS: PREGABALIN 150 MG (LYRICA) CAPSULE PO SCH (07:59)
[2020-02-09] MEDS: ASPIRIN E.C. 81 MG (ECOTRIN) TAB PO SCH (07:59)
[2020-02-09] MEDS: KCL 10 MEQ TAB (MICRO K) PO SCH ×2 (07:59→12:20)
[2020-02-09] MEDS: FAMOTIDINE 20 MG (PEPCID) TABLET PO SCH (07:59)
[2020-02-09] MEDS: lisINopril 10 MG (PRINIVIL) TABLET PO SCH (08:00)
[2020-02-09] MEDS: FUROSEMIDE 40 MG/4 ML INJ (LASIX) IVP SCH (08:00)
[2020-02-09] MEDS: METOCLOPRAMIDE 10 MG (REGLAN) TAB PO SCH ×2 (08:00→12:25)
[2020-02-09] MEDS: LORATADINE (CLARITIN) 10 MG TAB PO SCH (08:00)
[2020-02-09] MEDS: cefTRIAXone FOR IV USE 1,000 MG in WATER (STERILE) FOR INJECTION 10 ML IV SCH (08:00)
[2020-02-09] MEDS: PANTOPRAZOLE 20 MG TABLET (PROTONIX) PO SCH (08:00)
[2020-02-09] MEDS: FLUTICASONE NASAL SPRAY (FLONASE) 16 GM BTL NS SCH (08:00)
[2020-02-09] MEDS: SENNA W/DOCUSATE (SENOKOT S) TABLET PO SCH (08:05)
--- NOTE | 2020-02-09 10:01 | Physical Therapy Daily Note ---
PT Daily Note-Current Subjective Patient is standing independently by recliner with multiple attachments twisted around. Noted confusion. Agrees to PT. Pain Numeric Pain Scale: 0-No Pain Location: No Pain Reported Mental Status Patient Orientation: Person, Confused, Situation Attachments: Oxygen, Sheth Catheter BP, telemetry Transfers SCALE: Activities may be completed with or without assistive devices. 1-Tgoqtzfdyz-cxrppav completes the activity by him/herself with no assistance from a helper. 5-Set-up or Clean-up Assistance-helper sets up or cleans up; patient completes activity. [place] assists only prior to or following the activity. 4-Supervision or Touching Assistance-helper provides verbal cues and/or touching/steadying and/or contact guard assistance as patient completes activity. Assistance may be provided throughout the activity or intermittently. 3-Partial/Moderate Assistance-helper does LESS THAN HALF the effort. [place] lifts, holds or supports trunk or limbs, but provides less than half the effort. 2-Substantial/Maximal Assistance-helper does MORE THAN HALF the effort. [place] lifts or holds trunk or limbs and provides more than half the effort. 6-Tuegpfotf-nyacro does ALL the effort. Patient does none of the effort to complete the activity. Or, the assistance of 2 or more helpers is required for the patient to complete the activity. If activity was not attempted, code reason: 7-Patient Refused. 9-Not Applicable-not attempted and the patient did not perform the activity before the current illness, exacerbation or injury. 10-Not Attempted due to Environmental Limitations-(lack of equipment, weather restraints, etc.). 88-Not Attempted due to Medical Conditions or Safety Concerns. Roll Left & Right (QC): 6 Sit to Lying (QC): 6 Sit to Stand (QC): 6 Chair/Nod-dp-Gddnf Xfer(QC): 6 Weight Bearing Right Lower Extremity: Right Weight Bearing/Tolerated Left Lower Extremity: Left Weight Bearing/Tolerated Gait Training Does the Patient Walk?: Yes Distance: 15' x 3 Walk 10 feet (QC): 6 Gait Assistive Device: None declined out of room ambulation. Exercises Supine Ex: Ankle pumps, Quad Set, Heel Slides, Straight leg raise Supine Reps: 15 Seated Therapy Exercises: Ankle pumps, Long arc quads Seated Reps: 15 Assessment Patient is independent with all mobility. PT to increase activity as tolerated by patient. Bed alarm activated due to patient decreased safety awareness. PT Usp Goals Disc Pad Grinding Machine Feeder Goals PT Disc Pad Grinding Machine Feeder Goals Time Frame: Feb 14, 2020 Roll Left & Right (QC): 6 Sit to Lying (QC): 6 Lying-Sitting on Side/Bed(QC): 6 Sit to Stand (QC): 6 Chair/Htq-mm-Ccywv Xfer(QC): 6 Walk 10 feet (QC): 6 Walk 50ft with 2 Turns (QC): 6 PT Plan Treatment/Plan Treatment Plan: Continue Plan of Care Treatment Plan: Bed Mobility, Education, Functional Activity Nito, Functional Strength, Gait, Safety, Therapeutic Exercise, Transfers Treatment Duration: Feb 14, 2020 Frequency: 6 times per week Estimated Hrs Per Day: .25 hour per day Patient and/or Family Agrees t: Yes Time/GCodes Time In: 810 Time Out: 835 Total Billed Treatment Time: 25 Total Billed Treatment 1 visit EX 17 min FA 8 min DOLORES PHELAN PT Feb 09, 2020 10:01
[2020-02-09] MEDS: ENOXAPARIN 40 MG/0.4 ML (LOVENOX) SYR SC SCH (11:23)
--- NOTE | 2020-02-09 11:23 | Occupational Therapy Eval ---
OT Evaluation-General/PLF Medical Diagnosis Admission Date Feb 03, 2020 at 14:51 Medical Diagnosis: acute resp failure, septic shock, PNA Onset Date: Feb 03, 2020 Therapy Diagnosis Therapy Diagnosis: Septic shock Height/Weight Height (Feet): 5 Height (Inches): 1.00 Weight (Pounds): 162 Weight (Ounces): 0.0 Precautions Precautions/Isolations: Fall Prevention, Standard Precautions Safety Interventions: Bed Exit Alarm Weight Bear Status Weight Bearing Restriction: Weight Bearing/Tolerated Referral Physician: Deuce Referral Reason: Activity Tolerance, Self Care, Evaluation/Treatment, Strengthening/ROM Medical History Pertinent Medical History: Arthritis, COPD, DM, HTN Additional Medical History 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, coronary stent Current History Pt. had recent hospitalization. Left and had difficulty at home. EMS called. Pt. came to hospital with acute respiratory failure. Reviewed History: Yes Social History Home: Single Level Current Living Status: Spouse Entry Into Home: Stairs With Railing Steps Into Home: 4 ADL-Prior Level of Function SCALE: Activities may be completed with or without assistive devices. 5-Haooymfxby-mfubdyx completes the activity by him/herself with no assistance from a helper. 5-Set-up or Clean-up Assistance-helper sets up or cleans up; patient completes activity. [place] assists only prior to or following the activity. 4-Supervision or Touching Assistance-helper provides verbal cues and/or touching/steadying and/or contact guard assistance as patient completes activity. Assistance may be provided throughout the activity or intermittently. 3-Partial/Moderate Assistance-helper does LESS THAN HALF the effort. [place] lifts, holds or supports trunk or limbs, but provides less than half the effort. 2-Substantial/Maximal Assistance-helper does MORE THAN HALF the effort. [place] lifts or holds trunk or limbs and provides more than half the effort. 4-Onntvgutc-jufqqd does ALL the effort. Patient does none of the effort to complete the activity. Or, the assistance of 2 or more helpers is required for the patient to complete the activity. If activity was not attempted, code reason: 7-Patient Refused. 9-Not Applicable-not attempted and the patient did not perform the activity before the current illness, exacerbation or injury. 10-Not Attempted due to Environmental Limitations-(lack of equipment, weather restraints, etc.). 88-Not Attempted due to Medical Conditions or Safety Concerns. ADL PLOF Comments Pt. states that she is able to ambulate on her own at home without device, although she owns walkers, canes, and a wheelchair. Pt. has caregiving assistance 5 days per week, 5 hours per day. They assist her with cleaning and laundry, and can help with ADLs if needed. Although she states that she does not need assistance at home with this. Self Care: Unknown Functional Cognition: Independent DME/Equipment: Bath Chair, Tub/Shower DME/Equipment Comments Pt. has walkers, canes, and a wheelchair. Pt. has a shower chair. OT Current Status Subjective No pain reported. Appearance Pt. in bed. Alert and oriented and agrees to work with OT. Mental Status/Objective Patient Orientation: Person, Place, Time, Situation Attachments: Sheth Catheter, IV, Oxygen, Telemetry Current Glasses/Contacts: Yes Upper Extremity ROM WFL ADL-Treatment Eating (QC): 6 (Pt. had food tray when OT entered room.) Shower/Bathe Self (QC): 5 (Set up with sponge bath seated at side of bed.) Lower Body Dressing (QC): 5 (Set up) On/Off Footwear (QC): 5 Pt. transferred supine-sit with Mod I. Sat on side of bed and completed sponge bath. Multiple lines and tubes in place and no street clothing available. After ADLs, pt stood to transfer toward HOB. Pt. able to lay self down with Mod I. All needs met. Education OT Patient Education: Correct positioning, Modified ADL techniques, Progress toward Goal/Update tx plan, Purpose of tx/functional activities, Reviewed precautions, Rehab process, Transfer techniques Teaching Recipient: Patient Teaching Methods: Demonstration, Discussion Response to Teaching: Verbalize Understanding, Return Demonstration OT Glass Mould Cleaner Goals Senior Living Goals Time Frame: Feb 16, 2020 Shower/Bathe Self (QC): 6 On/Off Footwear (QC): 6 Additional Goals: 1-Demonstrate ADL Tasks, 2-Verbalize Understanding, 3- ImproveStrength/Nito 1=Demonstrate adherence to instructed precautions during ADL tasks. 2=Patient will verbalize/demonstrate understanding of assistive devices/ modifications for ADL. 3=Patient will improve strength/tolerance for activity to enable patient to perform ADL's. OT Education/Plan Problem List/Assessment Assessment: Decreased Activ Tolerance, Impaired I ADL's, Impaired Self-Care Skills Discharge Recommendations Plan/Recommendations: Continue POC Therapy Discharge Recommendati: Scheduled Assistance, Home & Family Treatment Plan/Plan of Care Treatment,Training & Education: Yes Patient would benefit from OT for education, treatment and training to promote independence in ADL's, mobility, safety and/or upper extremity function for ADL's. Plan of Care: ADL Retraining, Functional Mobility, UE Funct Exercise/Act Treatment Duration: Feb 16, 2020 Frequency: 5 times per week Estimated Hrs Per Day: .25 hour per day Agreement: Yes Rehab Potential: Good Time/GCodes Start Time: 08:50 Stop Time: 09:15 Total Time Billed (hr/min): 25 Billed Treatment Time 1, EVL x 10minutes, ADL x 15minutes KHADAR LEWIS OT Feb 09, 2020 11:23
--- NOTE | 2020-02-09 11:35 | NUR ---
CM/SS visited with the patient for discharge planning. Plan: The patient will return home with home health and private caregiver. Home Health: [facility]. CM/SS will call for a resumption of care for SN, PT, and OT and fax over finalized discharge when available. Caregiver: The patient reports that she has a caregiver 5 days a week for the duration of 5 hours daily. Summary: This CM/SS and the patient discussed possible nursing home home placement. The patient verbalized understanding that a SNF placement could benefit her. She states that she really just wants to go home with her and caregiver. The patient stated that it was a "deal breaker" that the facility was not allowing visitors. The patient was unwilling to go into a intermediate home placement at this time but stated if she does not get better she will consider it. Addendum: 02/09/20 at 1211 by TYE CALDERON [facility] CM/SS spoke with the patient about oxygen. She is having her bring the portable tank when he picks her up. The patients nurse is notified. CM/SS asked Home Health if they can schedule a visit for tomorrow.
[2020-02-09] MEDS ORDERED: OXYC10TA7 PO (11:43)
[2020-02-09] MEDS ORDERED: NICOTINE 21 MG (NICODERM) PATCH TD SCH (11:45)
--- NOTE | 2020-02-09 11:49 | Discharge Summary ---
Discharge Summary Reconcile Patient Problems Problems Reviewed?: Yes Instructions for Patient Via [facility], Assessment/Instructions Take medications as prescribed. Participate in therapies. Follow up with her primary care physician. Physician to follow Patient: Knight Discharge Diet for Home: No Restrictions Hospital Course Date of Admission: Feb 03, 2020 at 14:51 Admission Diagnosis : Septic shock Family Physician/Provider: Addy Knight DO Date of Discharge: 02/09/20 Discharge Diagnosis: Septic shock due to pneumonia Hospital Course: Vira Irizarry is a 61-year-old female who was admitted with septic shock. She had previously been admitted with a small bowel obstruction and had discharged to inpatient rehabilitation. She subsequently developed a pneumonia and was readmitted with septic shock. She did require pressors for a brief period of time. She did require intubation and was extubated without issue. She completed a one-week course of antibiotics. Her course was complicated by acute kidney injury which resolved. She was discharged home with home health for ongoing therapies. She was discharged in stable condition. Labs and Pending Lab Test: Laboratory Tests 02/08/20 15:36: Glucometer 154H 02/08/20 20:38: Glucometer 163H 02/09/20 02:19: White Blood Count 10.2, Red Blood Count 3.50L, Hemoglobin 9.6L, Hematocrit 30L, Mean Corpuscular Volume 86, Mean Corpuscular Hemoglobin 27, Mean Corpuscular Hemoglobin Concent 32, Red Cell Distribution Width 15.6H, Platelet Count 324, Mean Platelet Volume 10.3, Neutrophils (%) (Auto) 65, Lymphocytes (%) (Auto) 25, Monocytes (%) (Auto) 8, Eosinophils (%) (Auto) 2, Basophils (%) (Auto) 0, N eutrophils # (Auto) 6.6, Lymphocytes # (Auto) 2.5, Monocytes # (Auto) 0.8, Eosinophils # (Auto) 0.2, Basophils # (Auto) 0.0, Sodium Level 146H, Potassium Level 3.8, Chloride Level 108H, Carbon Dioxide Level 27, Anion Gap 11, Blood Urea Nitrogen 13, Creatinine 0.81, Estimat Glomerular Filtration Rate > 60, BUN/Creatinine Ratio 16, Glucose Level 123H, Calcium Level 8.3L, Phosphorus Level 3.2, Magnesium Level 2.1 02/09/20 11:12: Glucometer 158H Microbiology 02/03/20 MRSA Screen - Final, Complete MRSA not isolated 02/03/20 Urine Culture - Final, Complete NO GROWTH 02/03/20 Blood Culture - Final, Complete No growth Home Meds Active Oxycodone HCl 10 Mg Tablet 10 Mg PO Q6H PRN 7 Days Urecholine (Bethanechol Chloride) 10 Mg Tablet 10 Mg PO BID Oxycodone HCl 15 Mg Tablet 15 Mg PO Q6H 7 Days Ondansetron Odt (Ondansetron) 4 Mg Tab.rapdis 4 Mg PO Q6H PRN Senna-Time S Tablet (Sennosides/Docusate Sodium) 1 Each Tablet 1 Ea PO BID Lisinopril 10 Mg Tablet 10 Mg PO DAILY Flomax (Tamsulosin HCl) 0.4 Mg Cap 0.4 Mg PO DAILY@1800 Reported Flonase Allergy Relief (Fluticasone Propionate) 9.9 Ml [place].susp 1 [place] NS DAILY 1 SPRAY EACH NARE DAILY Cetirizine HCl 10 Mg Tablet 10 Mg PO DAILY Aspirin EC (Aspirin) 81 Mg Tablet.dr 81 Mg PO DAILY Acid Certification Technician (RANITIDINE) (Ranitidine HCl) 150 Mg Tablet 150 Mg PO BID Dicyclomine HCl 10 Mg Capsule 10 Mg PO BID Meclizine HCl 25 Mg Tablet 25 Mg PO TID PRN Metoclopramide HCl 10 Mg Tablet 10 Mg PO QID Alprazolam 1 Mg Tablet 0.5 Mg PO HS Alprazolam 1 Mg Tablet 1 Mg PO 0800,1200 Metformin HCl 1,000 Mg Tablet 1,000 Mg PO BID WITH MEALS Ranolazine ER (Ranolazine) 500 Mg Tab.er.12h 500 Mg PO BID Albuterol Sulfate 2.5 Mg/3 Ml Vial.neb 2.5 Mg NEB QID PRN Cyanocobalamin Injection (Cyanocobalamin) 1,000 Mcg/Ml Inj 1,000 Mcg IM ONCE 30 Days Lantus Solostar (Insulin Glargine,Hum.rec.anlog) 100 Unit/1 Ml Insuln.pen 10 Unit SQ HS Lyrica (Pregabalin) 150 Mg Capsule 150 Mg PO BID Furosemide 20 Mg Tablet 20 Mg PO DAILY Ropinirole HCl 1 Mg Tablet 1 Mg PO HS Advair 250-50 Diskus (Fluticasone/Salmeterol) 1 Each Blst.w.dev 1 Puff IH BID Combivent Respimat Inhal [place] (Albuterol/Ipratropium) 4 Gm Aero 1 Puff IH QID Omeprazole 20 Mg Capsule.dr 20 Mg PO BID Montelukast Sodium 10 Mg Tablet 10 Mg PO HS Atorvastatin Calcium 10 Mg Tablet 10 Mg PO HS Klor-Con M10 (Potassium Chloride) 10 Meq Tab.er.prt 10 Meq PO TID Cyclobenzaprine HCl 10 Mg Tablet 10 Mg PO TID PRN Quetiapine Fumarate 50 Mg Tablet 50 Mg PO HS Patient Allergies: Coded Allergies: Iodinated Contrast Media (Verified Allergy, Mild, HIVES, 12/08/19) linezolid (Verified Allergy, Mild, HIVE, 12/08/19) Height (Feet): 5 Height (Inches): 1.00 Weight (Pounds): 162 Weight (Ounces): 0.0 Home Health Need/Face to Face Date of Face to Face: Feb 09, 2020 Clinical Findings: Generalized weakness and fatigue, Instability, Muscle weakness I have seen Pt [id number]: Yes Discharged To: Home Diagnosis/Conditions: Debility Problems/Diagnosis/Condition: (1) Debility Patient is Homebound due to: Shun fall risk due to instabilty, Muscle weakness Homebound Status Due to the above stated illness, injury or surgical procedure (medical condition or diagnosis) and associated clinical findings, the patient is homebound because of his/her inability to leave home except with aid of a supportive device and/or person AND leaving the home requires a considerable and taxing effort or is medically contraindicated. Pt req the following assistanc: Aid of another person Home Health Nursing Orders Home Health Services Order: Nursing Services, Medical Secretary Teacher-Evaluate & Treat, Physical Therapy-Evaluate & Treat Home Health Infusion Therapy Line Start Date: Feb 03, 2020 Therapy Orders Therapy Orders: OT (must have SN or PT order), Physical Therapy Therapy Specific Orders: Eval assistive deivces, Teach enviro modific ations/safety, Gait training, Increase strength/endurance Certify Stmt I certify that this patient is under my care and that I, a nurse practitioner or a physician; a assistant film editor working with me, had a face to face encounter that -meets the physician face to face encounter requirements with this patient as dated. Discharge Physical Exam General: Alert, Oriented X3, Cooperative, No Acute Distress HEENT: Atraumatic, PERRLA, EOMI, Mucous Memb Moist/[place] Lungs: Clear to Auscultation, Normal Air Movement Heart: Regular Rate, Normal S1, Normal S2, No Murmurs Abdomen: Normal Bowel Sounds, Soft, No Tenderness Extremities: No Edema, No Tenderness/Swelling Skin: No Rashes, No Significant Lesion Neuro: Normal Speech Psych/Mental Status: Mental Status NL, Mood NL LUKAS NUNES MD Feb 09, 2020 11:49
[2020-02-09] MEDS ORDERED: ALPRAZolam 0.5 MG (XANAX) TAB PO SCH (13:00)
--- NOTE | 2020-02-09 14:30 | NUR ---
REGI PAL demonstrates understanding of discharge instructions and accurately returns instructions upon questioning. Copy of Post-Discharge Instructions and Medication Discharge Instructions given to pt. REGI PAL is able to manage continuing needs after discharge w/ HH. Patients belongings returned to pt. Skin dry and intact; no breakdown noted. Patient discharged from [facility]- on 02/09/20 at 1430. REGI PAL left floor via wc, accompanied by staff.
[2020-02-11] MEDS ORDERED: NICOTINE PATCH REMOVAL TP SCH (08:59)
== END 2020-02-09 14:30 | disposition home health service (06) | DRG 871 ==
LOC: EDUNIT# 12:57 → ER 13:03 → ICU 14:51
PROVIDERS: ADMIT Family Medicine; ATTEND Family Medicine
PROC: 5A1945Z Respiratory Ventilation, 24-96 Consecutive Hours (ICD-10-PCS; principal; 2020-02-03)
PROC: 0BH17EZ Insertion of Endotracheal Airway into Trachea, Via Natural or Artificial Opening (ICD-10-PCS; 2020-02-03)
DX: A41.9 Sepsis, unspecified organism (principal); R65.21 Severe sepsis with septic shock; J18.9 Pneumonia, unspecified organism; J96.21 Acute and chronic respiratory failure with hypoxia; J96.22 Acute and chronic respiratory failure with hypercapnia; N17.9 Acute kidney failure, unspecified; J44.9 Chronic obstructive pulmonary disease, unspecified; Z66 Do not resuscitate; I11.0 Hypertensive heart disease with heart failure; I50.9 Heart failure, unspecified; I25.10 Atherosclerotic heart disease of native coronary artery without angina pectoris; E66.9 Obesity, unspecified; E11.40 Type 2 diabetes mellitus with diabetic neuropathy, unspecified; E87.5 Hyperkalemia; K21.9 Gastro-esophageal reflux disease without esophagitis; E78.00 Pure hypercholesterolemia, unspecified; F17.210 Nicotine dependence, cigarettes, uncomplicated; M19.91 Primary osteoarthritis, unspecified site; M54.9 Dorsalgia, unspecified; M79.7 Fibromyalgia; J30.2 Other seasonal allergic rhinitis; D50.9 Iron deficiency anemia, unspecified; E87.6 Hypokalemia; E83.42 Hypomagnesemia; F41.9 Anxiety disorder, unspecified; F32.9 Major depressive disorder, single episode, unspecified; Z99.81 Dependence on supplemental oxygen; Z79.4 Long term (current) use of insulin; Z95.5 Presence of coronary angioplasty implant and graft; Z68.33 Body mass index [BMI] 33.0-33.9, adult
CPT/HCPCS: 31500; 36415; 36600; 51702; 71045; 71250; 74176; 80048; 80053; 80306; 80320; 81000; 82805; 82962; 83605; 83735; 83880; 84100; 84132; 84478; 84484; 85007; 85025; 85027; 85610; 85730; 87040; 87070; 87077; 87081; 87088; 87186; 87205; 87449; 87635; 87804; 87899; 93005; 93306; 94002; 94003; 94640; 94799; 96361; 96365; 96366; 96367; 96368; 96375; 99291; 99292

== ENCOUNTER 2020-02-15 17:55 | Emergency (ER) | payer MEDICARE, MEDICAID ==
[~2020-02-15] VITALS: Ht 173 cm; Wt 86.1 kg
[~2020-02-15 17:55] MED LIST changes: +OXYC-525 PO; +OXYC-527 PO; -OXYC15TA79 PO; -OXYC30TA80 PO
[2020-02-15] MEDS ORDERED: LACTATED RINGERS 1,000 ML IV ONE (18:12)
[2020-02-15 18:30] LABS: BASOPHILS % (AUTO) 0 % (0-10); EOSINOPHILS # (AUTO) 0.1 10^3/uL (0.0-0.3); EOSINOPHILS % (AUTO) 0 % (0-10); HEMATOCRIT 31 % (35-52); HEMOGLOBIN 9.7 G/DL (11.5-16.0); LYMPHOCYTES # (AUTO) 1.2 X 10^3 (1.0-4.0); LYMPHOCYTES % (AUTO) 8 % (12-44); MEAN CORPUSCULAR HEMOGLOBIN 28 PG (25-34); MEAN CORPUSCULAR HGB CONC 31 G/DL (32-36); MEAN CORPUSCULAR VOLUME 90 FL (80-99); MEAN PLATELET VOLUME 10.9 FL (7.4-10.4); MONOCYTES # (AUTO) 1.2 X 10^3 (0.0-1.0); MONOCYTES % (AUTO) 8 % (0-12); NEUTROPHILS # (AUTO) 13.1 X 10^3 (1.8-7.8); NEUTROPHILS % (AUTO) 84 % (42-75); PLATELET COUNT 304 10^3/uL (130-400); RED CELL DISTRIBUTION WIDTH 15.9 % (10.0-14.5); WHITE BLOOD COUNT 15.6 10^3/uL (4.3-11.0)
[2020-02-15 18:43] LABS: INR 1.2 (0.8-1.4); PROTHROMBIN TIME PATIENT 15.2 SEC (12.2-14.7)
[2020-02-15 18:47] LABS: ANISOCYTOSIS SLIGHT; BAND NEUTROPHILS 7 %; BASOPHILS % (MANUAL) 0 %; EOSINOPHILS % (MANUAL) 0 %; LYMPHOCYTES % (MANUAL) 8 %; MONOCYTES % (MANUAL) 4 %; NEUTROPHILS % (MANUAL) 81 %
[2020-02-15 18:53] LABS: ERYTHROCYTE SEDIMENTATION RATE 66 MM/HR (0-30)
[2020-02-15 18:57] LABS: ALBUMIN 3.4 GM/DL (3.2-4.5); BILIRUBIN,TOTAL 0.2 MG/DL (0.1-1.0); CALCIUM 8.5 MG/DL (8.5-10.1); CREATININE SERUM 4.57 MG/DL (0.60-1.30); TOTAL PROTEIN 6.4 GM/DL (6.4-8.2)
[2020-02-15 19:03] LABS: POTASSIUM 8.6 MMOL/L (3.6-5.0)
[2020-02-15] MEDS ORDERED: NS IV 1000 ML 1,000 ML IV ONE (19:07)
[2020-02-15] MEDS ORDERED: inSUlin (REGULAR) HUMAN 1 UNIT/0.01 ML (CHARGE PER UNIT) IV STA (19:09)
[2020-02-15] MEDS ORDERED: DEXTROSE 50% 50 ML (IMS) SYR IV ONE (19:15)
[2020-02-15] MEDS ORDERED: CALCIUM GLUC. 10% 4.65 MEQ/10 ML VIAL IV ONE ×3 (19:15)
--- NOTE | 2020-02-15 19:22 | Diagnostic Imaging Report ---
INDICATION: Cough. Comparison with 02/08/2020. FINDINGS: Portable chest. The heart is not enlarged. The lungs are well-aerated. There is no evidence of pulmonary edema. There are no infiltrates. Right central line unchanged with tip just into the right atrium. Mild blunting of the left costophrenic angle. IMPRESSION: 1. No significant changes have occurred when compared with previous exam. No evidence of pulmonary edema or interstitial infiltrates on today's exam. Dictated by: Dictated on workstation # [id number]
[2020-02-15 19:26] LABS: CLARITY,URINE SL CLOUDY; COLOR,URINE YELLOW; GLUCOSE, URINE (UA) NEGATIVE (NEGATIVE); KETONES,URINE NEGATIVE (NEGATIVE); LEUKOCYTE ESTERASE ,URINE NEGATIVE (NEGATIVE); NITRITE,URINE NEGATIVE (NEGATIVE); PROTEIN,URINE 1+ (NEGATIVE)
--- NOTE | 2020-02-15 19:27 | Diagnostic Imaging Report ---
INDICATION: Fall. Right-sided pain. FINDINGS: AP pelvis. SI joints and pubic symphysis are in good alignment. No fractures are demonstrated. Femoral heads are in normal articulation bilaterally. No fractures are noted of the femoral heads. No hypertrophic bony changes about the hips. There are surgical clips overlying the right hip. IMPRESSION: No findings to suggest acute fractures or dislocation. Dictated by: Dictated on workstation # [id number]
--- NOTE | 2020-02-15 19:35 | ED General ---
General Chief Complaint: Trauma-Non Activation Stated Complaint: FALL Nursing Triage Note: PT PRESENTS TO ED VIA EMS FOR FALL AT HOME WITH R SIDED PAIN. PT APPEARS ALTERED BUT CAN ANSWER SOME QUESTIONS APPROPRIATELY. PT ALSO REPORTS COUGH. Nursing Sepsis Screen: No Definite Risk Source of Information: Patient, EMS Exam Limitations: Physical Impairments History of Present Illness Date Seen by Provider: Feb 15, 2020 Time Seen by Provider: 18:15 Initial Comments Here by EMS with report of fall at home. Limited details on the fall and no obvious injury. She did complain of some left hip pain. She is unable to give details about the fall. Patient was recently hospitalized for pneumonia and sepsis. She was evaluated for COVID-19 and testing was negative. Discharged 5 days ago to home and no new contacts or concerns. EMS reported that the patient did have a cough. She is known COPD and has chronic cough. Afebrile currently. EMS did report the patient was hypotensive in the 80s systolic. They did initiate IV and 1 L of normal saline IV bolus. That is currently running. Patient is answering some questions and able to move all extremities. No obvious injury noted. She does have a distended belly and is known to have small bowel obstructions as well as COPD exacerbations. She has apparently become increas ingly weak. 1940: Patient's reports that the patient was standing but had been increasingly weak over the last 3-4 days. She was standing behind a chair when she suddenly fell over. He did not see her fall. No loss of consciousness. Reports that she did hit 1 of her elbows a little and was complaining briefly about pain there but that resolved. He did summon EMS. Location Injury Occurred: HOME RESIDENCE Timing/Duration: 1 Hour Severity: Moderate Associated Systoms: No Cough, No Fever/Chills, No Headaches, No Nausea/Vomiting; Shortness of Air (chronic), Weakness Allergies and Home Medications Allergies Coded Allergies: Iodinated Contrast Media (Verified Allergy, Mild, HIVES, 12/08/19) linezolid (Verified Allergy, Mild, HIVE, 12/08/19) Home Medications Albuterol Sulfate 2.5 Mg/3 Ml Vial.neb, 2.5 MG NEB QID PRN for SHORTNESS OF BREATH, (Reported) Albuterol/Ipratropium 4 Gm Aero, 1 PUFF IH QID, (Reported) Alprazolam 1 Mg Tablet, 1 MG PO 0800,1200, (Reported) Alprazolam 1 Mg Tablet, 0.5 MG PO HS, (Reported) Aspirin 81 Mg Tablet.dr, 81 MG PO DAILY, (Reported) Atorvastatin Calcium 10 Mg Tablet, 10 MG PO HS, (Reported) Bethanechol Chloride 10 Mg Tablet, 10 MG PO BID Prescribed by: RANDAL QIU on 01/30/20 1044 Cetirizine HCl 10 Mg Tablet, 10 MG PO DAILY, (Reported) Cyanocobalamin 1,000 Mcg/Ml Inj, 1,000 MCG IM ONCE, (Reported) Cyclobenzaprine HCl 10 Mg Tablet, 10 MG PO TID PRN for MUSCLE SPASMS, (Reported) Dicyclomine HCl 10 Mg Capsule, 10 MG PO BID, (Reported) Fluticasone Propionate 9.9 Ml [place].susp, 1 SPRAY NS DAILY, (Reported) 1 SPRAY EACH NARE DAILY Fluticasone/Salmeterol 1 Each Blst.w.dev, 1 PUFF IH BID, (Reported) Furosemide 20 Mg Tablet, 20 MG PO DAILY, (Reported) Insulin Glargine,Hum.rec.anlog 100 Unit/1 Ml Insuln.pen, 10 UNIT SQ HS, (Reported) Lisinopril 10 Mg Tablet, 10 MG PO DAILY Prescribed by: RANDAL QIU on 01/29/202121 Meclizine HCl 25 Mg Tablet, 25 MG PO TID PRN for VERTIGO, (Reported) Metformin HCl 1,000 Mg Tablet, 1,000 MG PO BID WITH MEALS, (Reported) Metoclopramide HCl 10 Mg Tablet, 10 MG PO QID, (Reported) Montelukast Sodium 10 Mg Tablet, 10 MG PO HS, (Reported) Omeprazole 20 Mg Capsule.dr, 20 MG PO BID, (Reported) Ondansetron 4 Mg Tab.rapdis, 4 MG PO Q6H PRN for NAUSEA/VOMITING-1ST LINE Prescribed by: RANDAL QIU on 01/29/202121 Oxycodone HCl 10 Mg Tablet, 10 MG PO Q6H PRN for PAIN-SEVERE (8-10) Prescribed by: LUKAS NUNES on 02/09/20 1143 Potassium Chloride 10 Meq Tab.er.prt, 10 MEQ PO TID, (Reported) Pregabalin 150 Mg Capsule, 150 MG PO BID, (Reported) Quetiapine Fumarate 50 Mg Tablet, 50 MG PO HS, (Reported) Ranitidine HCl 150 Mg Tablet, 150 MG PO BID, (Reported) Ranolazine 500 Mg Tab.er.12h, 500 MG PO BID, (Reported) Ropinirole HCl 1 Mg Tablet, 1 MG PO HS, (Reported) Sennosides/Docusate Sodium 1 Each Tablet, 1 EA PO BID Prescribed by: RANDAL QIU on 01/29/202121 Tamsulosin HCl 0.4 Mg Cap, 0.4 MG PO DAILY@1800 Prescribed by: RANDAL QIU on 01/29/202121 Patient Home Medication List Home Medication List Reviewed: Yes Review of Systems Review of Systems Constitutional: see HPI; No fever; weakness EENTM: no symptoms reported Respiratory: cough, dyspnea on exertion Cardiovascular: No chest pain; edema Gastrointestinal: abdominal pain; No diarrhea, No nausea, No vomiting; other (family reports dark stools to EMS) Genitourinary: No pain; other (patient is in adults diaper and is incontinent of urine) Musculoskeletal: joint pain, muscle weakness Skin: no symptoms reported Psychiatric/Neurological: See HPI Past Ehpdark-Qyahuv-Vvsphi Hx Past Med/Social Hx: Reviewed Nursing Past Med/Soc Hx Patient Social History Alcohol Use: Denies Use Number of Drinks Today: GG Alcohol Beverage of Choice: Rum, Whiskey, [place], Vodka Recreational Drug Use: No Type Used: Cigarettes 2nd Hand Smoke Exposure: Yes Recent Foreign Travel: No Contact w/Someone Who Travel: No Recent Infectious Disease Expo: No Recent Hopitalizations: Yes Physical Abuse: No Sexual Abuse: No Mistreated: No Fear: No Immunizations Up To Date Tetanus Booster (TDap): Unknown Date of Pneumonia Vaccine: Sep 16, 2019 Date of Influenza Vaccine: Sep 15, 2019 Seasonal Allergies Seasonal Allergies: Yes Past Medical History Surgeries: Yes (several exploratomy laparotomies, hernia with mesh) Appendectomy, Coronary Stent, Gallbladder, 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, Vascular Surgery Respiratory: Yes (HOME 02 3L ) Pneumonia, Chronic Bronchitis, COPD Currently Using CPAP: No Currently Using BIPAP: No Cardiac: Yes (CHF) Chronic Edema/Swelling, High Cholesterol, Hypertension Neurological: Yes Headaches /Migraines, Neuropathy 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 Genitourinary: No Gastrointestinal: Yes (SEVERAL BOWEL OBSTRUCTIONS, chronic abd pain) Obstructive Bowel, Hiatal Hernia Musculoskeletal: Yes Arthritis, Fibromyalgia, Chronic Back Pain Endocrine: Yes Diabetes, Non-Insulin dep HEENT: Yes (GLASSES) Loss of Vision: Denies Hearing Impairment: Denies Cancer: No Psychosocial: Yes Anxiety, Depression Integumentary: Yes (CHRONIC ABDOMINAL WOUND- MRSA) Recent Skin Changes Blood Disorders: No Adverse Reaction/Blood Tranf: No (N/A) Family Medical History Reviewed Nursing Family Hx Colon cancer G8 BROTHER (PANCREATIC) Dementia 19 MOTHER G8 BROTHER Hypertension 19 MOTHER Myocardial infarction G8 BROTHER Diabetes, Hypertension, Other Conditions/Hx Physical Exam-Suspected Sepsis Physical Exam Vital Signs Vital Signs - First Documented 02/15/20 18:25 Temp 36.2 Pulse 90 Resp 16 B/P (MAP) 104/36 (58) Pulse Ox 100 O2 Delivery Nasal Cannula O2 Flow Rate 2.00 Capillary Refill : Less Than 3 Seconds Blood Pressure Mean: 58 Height, Weight, BMI Height: 5'1.00" Weight: 162lbs. 0.0oz. 73.166288vb; 28.00 BMI Method:Stated General Appearance: Chronically ill, Mild Distress HEENT: PERRL/EOMI, Pharynx Normal, Other (Oh this) Neck: Non Tender, Supple Respiratory: Lungs Clear; No Wheezing Cardiovascular: No Murmur, Tachycardia Gastrointestinal: Distended; No Guarding, No Rebound; Tenderness (() Back: Normal Inspection, No CVA Tenderness, No Vertebral Tenderness Extremity: Normal Range of Motion, Non Tender, Other (has abrasions on the elbows but retains range of motion and denies any significant pain.) Neurologic/Psychiatric: Alert, Other (answers some questions and follows some commands. Seems to be a bit confused.) Skin: normal color, warm/dry, other (abrasions to bilatera elbow right greater than left.) Focused Exam Lactate Level 02/15/20 18:16: Lactic Acid Level 0.96 Lactic Acid Level Laboratory Tests Test 02/15/20 18:16 Lactic Acid Level 0.96 MMOL/L (0.50-2.00) Procedures/Interventions Date of ETT Placement: Feb 03, 2020 Time of ETT Placement: 1358 Progress/Results/Core Measures Suspected Sepsis Recent Fever Within 48 Hours: No Infection Criteria Present: Suspected New Infection New/Unexplained Altered Menta: Yes Sepsis Screen: No Definite Risk SIRS Temperature: Pulse: 90 Respiratory Rate: 16 Laboratory Tests 02/15/20 18:16: White Blood Count 15.6H Blood Pressure 104 /36 Mean: 58 02/15/20 18:16: Lactic Acid Level 0.96 Laboratory Tests 02/15/20 18:16: Creatinine 4.57#H, INR Comment 1.2, Platelet Count 304, Total Bilirubin 0.2 02/15/20 20:40: Results/Orders Lab Results Laboratory Tests Test 02/15/20 18:16 02/15/20 18:20 02/15/20 19:20 02/15/20 20:40 Range/Units White Blood Count 15.6 H 4.3-11.0 10^3/uL Red Blood Count 3.49 L 4.35-5.85 10^6/uL Hemoglobin 9.7 L 11.5-16.0 G/DL Hematocrit 31 L 35-52 % Mean Corpuscular Volume 90 80-99 FL Mean Corpuscular Hemoglobin 28 25-34 PG Mean Corpuscular Hemoglobin Concent 31 L 32-36 G/DL Red Cell Distribution Width 15.9 H 10.0-14.5 % Platelet Count 304 130-400 10^3/uL Mean Platelet Volume 10.9 H 7.4-10.4 FL Neutrophils (%) (Auto) 84 H 42-75 % Lymphocytes (%) (Auto) 8 L 12-44 % Monocytes (%) (Auto) 8 0-12 % Eosinophils (%) (Auto) 0 0-10 % Basophils (%) (Auto) 0 0-10 % Neutrophils # (Auto) 13.1 H 1.8-7.8 X 10^3 Lymphocytes # (Auto) 1.2 1.0-4.0 X 10^3 Monocytes # (Auto) 1.2 H 0.0-1.0 X 10^3 Eosinophils # (Auto) 0.1 0.0-0.3 10^3/uL Basophils # (Auto) 0.0 0.0-0.1 10^3/uL Neutrophils % (Manual) 81 % Lymphocytes % (Manual) 8 % Monocytes % (Manual) 4 % Eosinophils % (Manual) 0 % Basophils % (Manual) 0 % Band Neutrophils 7 % Anisocytosis SLIGHT Erythrocyte Sedimentation Rate 66 H 0-30 MM/HR Prothrombin Time 15.2 H 12.2-14.7 SEC INR Comment 1.2 0.8-1.4 Activated Partial Thromboplast Time 43 H 24-35 SEC Sodium Level 135 135-145 MMOL/L Potassium Level 8.6 *H 3.6-5.0 MMOL/L Chloride Level 107 98-107 MMOL/L Carbon Dioxide Level 13 L 21-32 MMOL/L Anion Gap 15 H 5-14 MMOL/L Blood Urea Nitrogen 53 H 7-18 MG/DL Creatinine 4.57 #H 0.60-1.30 MG/DL Estimat Glomerular Filtration Rate 10 BUN/Creatinine Ratio 12 Glucose Level 104 70-105 MG/DL Lactic Acid Level 0.96 0.50-2.00 MMOL/L Calcium Level 8.5 8.5-10.1 MG/DL Corrected Calcium 9.0 8.5-10.1 MG/DL Total Bilirubin 0.2 0.1-1.0 MG/DL Aspartate Amino Transf (AST/SGOT) 12 5-34 U/L Alanine Aminotransferase (ALT/SGPT) 9 0-55 U/L Alkaline Phosphatase 81 40-136 U/L Lactate Dehydrogenase 181 125-220 U/L C-Reactive Protein High Sensitivity 18.55 H 0.00-0.50 MG/DL Total Protein 6.4 6.4-8.2 GM/DL Albumin 3.4 3.2-4.5 GM/DL Procalcitonin 0.61 H <0.10 NG/ML Group A Streptococcus Screen NEGATIVE NEGATIVE Urine Color YELLOW Urine Clarity SL CLOUDY Urine pH 5.0 5-9 Urine Specific Mack >=1.030 1.016-1.022 Urine Protein 1+ H NEGATIVE Urine Glucose (UA) NEGATIVE NEGATIVE Urine Ketones NEGATIVE NEGATIVE Urine Nitrite NEGATIVE NEGATIVE Urine Bilirubin 1+ H NEGATIVE Urine Urobilinogen 0.2 < = 1.0 MG/DL Urine Leukocyte Esterase NEGATIVE NEGATIVE Urine RBC (Auto) NEGATIVE NEGATIVE Urine RBC NONE /HPF Urine WBC 2-5 /HPF Urine Squamous Epithelial Cells RARE /HPF Urine Crystals NONE /LPF Urine Bacteria NEGATIVE /HPF Urine Casts NONE /LPF Urine Mucus NEGATIVE /LPF Urine Yeast MODERATE H /HPF Urine Culture Indicated CULTURE PENDING Micro Results Microbiology 02/15/20 Influenza Types A,B Antigen (EBONIE) - Final, Complete My Orders Orders - PETRA MCMANUS MD Pelvis (02/15/20 18:56) Calcium Gluconate 10% Inj (Calcium Glu (02/15/20 19:15) Calcium Gluconate 10% Inj (Calcium Glu (02/15/20 19:15) Catheter(Urinary) Insert & Ass 03,15 (02/15/20 19:07) Ns Iv 1000 Ml (Sodium Chloride 0.9%) (02/15/20 19:07) Calcium Gluconate 10% Inj (Calcium Glu (02/15/20 19:15) D50w (Emergency) Syringe (Dextrose 50% 5 (02/15/20 19:15) Insulin (Regular) Human (Humulin R (Per (02/15/20 19:09) Ct Head/Cervical Spine Wo (02/15/20 19:35) Ct Chest/Abdomen/Pelvis Wo (02/15/20 19:35) Piperacillin Sodium/Tazobactam (Zosyn Vi (02/15/20 20:30) Basic Metabolic Panel (02/15/20 20:28) Norepinephrine 4 Mg/250 Ml (Norepinephri (02/15/20 21:15) Medications Given in ED Current Medications Medications Dose Ordered Sig/Alexandru Route Start Time Stop Time Status Last Admin Dose Admin Calcium Gluconate 4.65 meq ONCE ONCE IV 02/15/20 19:15 02/15/20 19:16 DC 02/15/20 19:18 4.65 MEQ Calcium Gluconate 4.65 meq ONCE ONCE IV 02/15/20 19:15 02/15/20 19:16 DC 02/15/20 19:19 4.65 MEQ Calcium Gluconate 4.65 meq ONCE ONCE IV 02/15/20 19:15 02/15/20 19:16 DC 02/15/20 19:19 4.65 MEQ Dextrose 50 ml ONCE ONCE IV 02/15/20 19:15 02/15/20 19:16 DC 02/15/20 19:19 50 ML Lactated Ringer's 1,000 ml @ 0 mls/hr Q0M ONCE IV 02/15/20 18:12 02/15/20 18:16 DC 02/15/20 18:50 0 MLS/HR Piperacillin Sod/ Tazobactam Sod 4.5 gm/Sodium Chloride 100 ml @ 200 mls/hr ONCE ONCE IV 02/15/20 20:30 02/15/20 20:59 DC 02/15/20 20:47 200 MLS/HR Sodium Chloride 1,000 ml @ 0 mls/hr Q0M ONCE IV 02/15/20 19:07 02/15/20 19:09 DC 02/15/20 19:19 1,000 MLS/HR Vital Signs/I&O 02/15/20 02/15/20 18:25 18:47 Temp 36.2 36.2 Pulse 90 90 Resp 16 16 B/P (MAP) 104/36 (58) 104/36 (58) Pulse Ox 100 100 O2 Delivery Nasal Cannula Nasal Cannula O2 Flow Rate 2.00 Capillary Refill : Less Than 3 Seconds Blood Pressure Mean: 58 Progress Note : Progress Note Seen and evaluated. IV, labs, blood cultures and lactic acid initiated as well as complete sepsis order set. EKG ordered due to peaked T waves noted on monitor. LR 1 L bolus to run after normal saline 1 L bolus initiated by EMS. Patient on 2 L O2 and tolerating well. Monitor patient. 1906: Potassium noted to be 8.6 with renal function. Orders for calcium gluconate 3 amps IV, insulin 10 units IV and D50 1 amp IV. We will initiate Sheth catheter. LR will be switched to normal saline 1 L bolus. Patient's blood pressure still greater than 100 systolic. Monitor patient. 1949: I have rediscussed with the and obtained more information noted in history of present illness. Patient appears more stable now. We will go ahead and get CT head and neck as well as chest abdomen pelvis without contrast. Patient will require transfer due to acute renal failure with creatinine greater than 4 and hyperkalemia. I did speak with the regarding transfer and he has requested [facility]. We will call and see if they have availability. He will notify the family. I did express the critical nature of the patient especially given her underlying medical problems. 2039: CT complete. Left lower lobe pneumonia noted. Zosyn 4.5 g IV initiated. Patient is now hypotensive in the 70s systolic. I have discussed the case with Dr. Polo at [facility] in [facility] through the ED and he has accepted patient in transfer. I will go ahead and get central line placed and pressor support as needed. 2058: I was setting up for central line placement and we have found that she has a port to the right upper chest wall. We will access that instead and initiate Levophed as needed. She also has 2 IV lines so she'll have enough support for IV access. Blood pressure mid upper 80s over 40s currently. No increased need for oxygen currently. Patient will be stable for transfer. 2103: Second liter of normal saline complete (first liter via EMS second liter ordered here). We will order 500 of normal saline bolus to complete the 30 mL/kg bolus for hypotension indicated in septic shock. Levophed will be initiated at 0.1 mcg/kg/m IV via port access that has been placed with good flush and draw by nursing. EMS notified for transfer. ECG Initial ECG Impression Date: Feb 15, 2020 Initial ECG Impression Time: 18:36 Initial ECG Rate: 96 Initial ECG Rhythm: Normal Sinus Comment Sinus rhythm with right axis deviation. QRS duration 109 which is increased from previous of 01/30/20. No evidence of ST elevation UT. QRS prolongation and peaked T waves noted. Interpreted by me. Diagnostic Imaging Diagonstic Imaging: Xray Plain Films/CT/US/NM/MRI: chest Comments [facility], [facility]. [place], [place] NAME: REGI PAL [facility] REC#: [id number] PT STATUS: REG ER : 1950 PHYSICIAN: TERRA CRISTINA MD ADMIT DATE: 02/15/20/ER Signed Date of Exam:02/15/20 CHEST 1 VIEW, AP/PA ONLY INDICATION: Cough. Comparison with 02/08/2020. FINDINGS: Portable chest. The heart is not enlarged. The lungs are well-aerated. There is no evidence of pulmonary edema. There are no infiltrates. Right central line unchanged with tip just into the right atrium. Mild blunting of the left costophrenic angle. IMPRESSION: 1. No significant changes have occurred when compared with previous exam. No evidence of pulmonary edema or interstitial infiltrates on today's exam. Dictated by: Dictated on workstation # [id number] Dict: 02/15/201912 Trans: 02/15/201921 NAEEM [id number] Interpreted by: YVONNE ZHANG MD Electronically signed by: YVONNE ZHANG MD 02/15/201921 Diagonstic Imaging: Xray Plain Films/CT/US/NM/MRI: pelvis Comments [facility] [place] NAME: REGI PAL [facility] REC#: [id number] PT STATUS: REG ER : 1950 PHYSICIAN: PETRA MCMANUS MD ADMIT DATE: 02/15/20/ER Signed Date of Exam:02/15/20 PELVIS INDICATION: Fall. Right-sided pain. FINDINGS: AP pelvis. SI joints and pubic symphysis are in good alignment. No fractures are demonstrated. Femoral heads are in normal articulation bilaterally. No fractures are noted of the femoral heads. No hypertrophic bony changes about the hips. There are surgical clips overlying the right hip. IMPRESSION: No findings to suggest acute fractures or dislocation. Dictated by: Dictated on workstation # [id number] Dict: 02/15/201914 Trans: 02/15/[address] [place] [address] [id number] Interpreted by: YVONNE ZHANG MD Electronically signed by: YVONNE ZHANG MD 02/15/201949 Diagonstic Imaging: CT Plain Films/CT/US/NM/MRI: c-spine, head Comments [facility] [place] NAME: REGI PAL [facility] REC#: [id number] PT STATUS: REG ER : 1950 PHYSICIAN: PETRA MCMANUS MD ADMIT DATE: 02/15/20/ER Signed Date of Exam:02/15/20 CT HEAD/CERVICAL SPINE WO PROCEDURE: CT head and CT cervical spine without contrast. TECHNIQUE: Multiple contiguous axial images were obtained through the brain and cervical spine without the use of intravenous contrast. Sagittal and coronal reformations through the cervical spine were then performed. Auto Exposure Controls were utilized during the CT exam to meet ALARA standards for radiation dose reduction. INDICATION: Fall. Altered mental consciousness. FINDINGS: CT head: There is no evidence of intracranial hemorrhage. The ventricles and cortical gyral pattern are normal. There is no extra-axial fluid collection. Basal cisterns are clear. CP angles are normal. Mastoid air cells and paranasal sinuses are clear. No calvarial fracture. IMPRESSION: Negative CT head. CT cervical spine: Sagittal and coronal reformatted images. Good alignment. Body heights are well maintained. Facets show good alignment. The atlantoaxial joint is in good alignment. No fracture is demonstrated. There is some disc space narrowing at C4-C5 and C6-C7. Uncovertebral hypertrophy causing mild stenosis at C6-C7. No fracture is demonstrated. The soft tissues appear normal. IMPRESSION: Advanced degenerative cervical disc disease with no acute abnormality demonstrated. Dictated by: Dictated on workstation # [id number] Dict: 02/15/202009 Trans: 02/15/202021 PJE [id number] Interpreted by: YVONNE ZHANG MD Electronically signed by: YVONNE ZHANG MD 02/15/202021 Diagonstic Imaging: CT Plain Films/CT/US/NM/MRI: chest, abdomen, pelvis Comments [facility], [place] NAME: REGI PAL [facility] REC#: [id number] PT STATUS: REG ER : 1950 PHYSICIAN: PETRA MCMANUS MD ADMIT DATE: 02/15/20/ER Signed Date of Exam:02/15/20 CT CHEST/ABDOMEN/PELVIS WO PROCEDURE: CT chest, abdomen, and pelvis without contrast. TECHNIQUE: Multiple contiguous axial images were obtained through the chest, abdomen, and pelvis without the use of intravenous contrast. Auto Exposure Controls were utilized during the CT exam to meet ALARA standards for radiation dose reduction. INDICATION: Fall. Chest and abdomen pain. FINDINGS: CT chest: Lungs are well-aerated. There is a alveolar infiltrate in the superior segment of the left lower lobe. Minimal patchy infiltrate in the left upper lobe. Right lung is clear. No pneumothorax or pleural effusion. No mediastinal or hilar adenopathy of pathologic size. Aorta is atherosclerotic without aneurysm. Sagittal reformatted images show good alignment of the thoracic spine. No compression fractures or spinal stenosis. No rib fracture is demonstrated. IMPRESSION: Findings consistent with left lower lobe pneumonia. CT abdomen/pelvis: Liver is not enlarged. Gallbladder is absent. Bile ducts are not dilated. Pancreas and spleen are normal. The adrenal glands are normal. Kidneys appear normal. Stomach is filled with food and fluid and mildly distended. Small bowel is not dilated. There is moderate amount of stool present in the colon. No evidence of obstructive process. Surgical change is noted within the bowel in the left mid abdomen. No intra-abdominal adenopathy of pathologic size. There is no free air or free fluid. Sheth catheter present. Bladder is decompressed. Sagittal reformatted images show good alignment of the lumbosacral spine. Facets show good alignment with incomplete pars defect, bilaterally, at L5. There is advanced degenerative disc disease at L2-L3 with loss of disc space height and hypertrophic lipping of the endplates. IMPRESSION: 1. No acute abnormality demonstrated throughout the abdomen or pelvis. 2. Postsurgical changes. 3. Advanced degenerative disc and facet disease of the lumbosacral spine. Dictated by: Dictated on workstation # [id number] Dict: 02/15/202011 Trans: 02/15/202021 PJE [id number] Interpreted by: YVONNE ZHANG MD Electronically signed by: YVONNE ZHANG MD 02/15/202021 Departure Impression Primary Impression: Left lower lobe pneumonia Qualified Codes: J18.1 - Lobar pneumonia, unspecified organism Additional Impressions: Acute renal failure Qualified Codes: N17.9 - Acute kidney failure, unspecified Hyperkalemia Disposition: XF SHT-TRM HOSP Condition: Stable Transfer Transfer Reason: Exceeds level of care Time Spoke to Accepting Phy: 20:40 Transfer Time: 20:40 Transfer Facility: [place], [place], ED to ED transfer and accepted by emergency department physician. Method of Transfer: EMS Departure-Patient Inst. Referrals: RUDOLPH KENT DO (PCP/Family) Primary Care Physician PETRA MCMANUS MD Feb 15, 2020 19:35
[2020-02-15 19:36] LABS: BACTERIA,URINE NEGATIVE /HPF; BILIRUBIN,URINE 1+ (NEGATIVE); SQUAMOUS EPITHELIAL CELL,UR RARE /HPF
[2020-02-15 19:37] LABS: YEAST,URINE MODERATE /HPF
--- NOTE | 2020-02-15 19:40 | NUR ---
SPOKE TO CARSON ABOUT PATIENT CODE STATUS AND CARSON STATES PATIENT IS A DNR. DR MCMANUS INFORMED OF PATIENT CODE STATUS.
--- NOTE | 2020-02-15 20:16 | Diagnostic Imaging Report ---
PROCEDURE: CT head and CT cervical spine without contrast. TECHNIQUE: Multiple contiguous axial images were obtained through the brain and cervical spine without the use of intravenous contrast. Sagittal and coronal reformations through the cervical spine were then performed. Auto Exposure Controls were utilized during the CT exam to meet ALARA standards for radiation dose reduction. INDICATION: Fall. Altered mental consciousness. FINDINGS: CT head: There is no evidence of intracranial hemorrhage. The ventricles and cortical gyral pattern are normal. There is no extra-axial fluid collection. Basal cisterns are clear. CP angles are normal. Mastoid air cells and paranasal sinuses are clear. No calvarial fracture. IMPRESSION: Negative CT head. CT cervical spine: Sagittal and coronal reformatted images. Good alignment. Body heights are well maintained. Facets show good alignment. The atlantoaxial joint is in good alignment. No fracture is demonstrated. There is some disc space narrowing at C4-C5 and C6-C7. Uncovertebral hypertrophy causing mild stenosis at C6-C7. No fracture is demonstrated. The soft tissues appear normal. IMPRESSION: Advanced degenerative cervical disc disease with no acute abnormality demonstrated. Dictated by: Dictated on workstation # [id number]
--- NOTE | 2020-02-15 20:20 | Diagnostic Imaging Report ---
PROCEDURE: CT chest, abdomen, and pelvis without contrast. TECHNIQUE: Multiple contiguous axial images were obtained through the chest, abdomen, and pelvis without the use of intravenous contrast. Auto Exposure Controls were utilized during the CT exam to meet ALARA standards for radiation dose reduction. INDICATION: Fall. Chest and abdomen pain. FINDINGS: CT chest: Lungs are well-aerated. There is a alveolar infiltrate in the superior segment of the left lower lobe. Minimal patchy infiltrate in the left upper lobe. Right lung is clear. No pneumothorax or pleural effusion. No mediastinal or hilar adenopathy of pathologic size. Aorta is atherosclerotic without aneurysm. Sagittal reformatted images show good alignment of the thoracic spine. No compression fractures or spinal stenosis. No rib fracture is demonstrated. IMPRESSION: Findings consistent with left lower lobe pneumonia. CT abdomen/pelvis: Liver is not enlarged. Gallbladder is absent. Bile ducts are not dilated. Pancreas and spleen are normal. The adrenal glands are normal. Kidneys appear normal. Stomach is filled with food and fluid and mildly distended. Small bowel is not dilated. There is moderate amount of stool present in the colon. No evidence of obstructive process. Surgical change is noted within the bowel in the left mid abdomen. No intra-abdominal adenopathy of pathologic size. There is no free air or free fluid. Sheth catheter present. Bladder is decompressed. Sagittal reformatted images show good alignment of the lumbosacral spine. Facets show good alignment with incomplete pars defect, bilaterally, at L5. There is advanced degenerative disc disease at L2-L3 with loss of disc space height and hypertrophic lipping of the endplates. IMPRESSION: 1. No acute abnormality demonstrated throughout the abdomen or pelvis. 2. Postsurgical changes. 3. Advanced degenerative disc and facet disease of the lumbosacral spine. Dictated by: Dictated on workstation # [id number]
[2020-02-15] MEDS ORDERED: PIPERACILLIN SODIUM/TAZOBACTAM 4.5 GM in NS (IVPB) 100 ML IV ONE (20:30)
[2020-02-15] MEDS ORDERED: NS IV 500 ML 500 ML ONE (20:58)
--- NOTE | 2020-02-15 20:59 | NUR ---
CALLED [facility] FOR TRANSPORT. THEY ACCEPTED AT THIS TIME.
[2020-02-15] MEDS ORDERED: NS IV 500 ML 500 ML IV ONE (21:03)
[2020-02-15 21:08] LABS: CREATININE SERUM 4.37 MG/DL (0.60-1.30)
[2020-02-15 21:14] LABS: POTASSIUM 7.5 MMOL/L (3.6-5.0)
[2020-02-15] MEDS ORDERED: NOREPINEPHRINE 4 MG/250 ML 250 ML IV SCH (21:15)
[2020-02-15] MEDS ORDERED: DEXTROSE 50% 50 ML (IMS) SYR ONE (21:45)
[2020-02-15 21:54] VITALS: BP 92/48
--- NOTE | 2020-02-15 22:31 | NUR ---
SPOKE TO PATIENT CARSON AND UPDATED ON PATIENT CONDITION AND ENROUTE TO [facility] AT THIS TIME. PATIENT IS UPDATED TO CONDITION AND AGAIN VERIFIES PATIENT IS TO BE A DNR. INFORMED SEGUN WOULD CALL HIM AND UPDATE HIM WHEN PATIENT ARRIVES TO A ROOM.
== END 2020-02-15 21:54 | disposition short-term general hospital (02) ==
LOC: EDUNIT# 17:55 → ER 17:57
DX: M25.552 Pain in left hip (principal); J18.9 Pneumonia, unspecified organism; N17.9 Acute kidney failure, unspecified; E87.5 Hyperkalemia; J44.0 Chronic obstructive pulmonary disease with (acute) lower respiratory infection; I11.0 Hypertensive heart disease with heart failure; I50.9 Heart failure, unspecified; E11.9 Type 2 diabetes mellitus without complications; E78.00 Pure hypercholesterolemia, unspecified; F41.9 Anxiety disorder, unspecified; F32.9 Major depressive disorder, single episode, unspecified; Z91.041 Radiographic dye allergy status; Z88.8 Allergy status to other drugs, medicaments and biological substances; Z79.82 Long term (current) use of aspirin; Z79.51 Long term (current) use of inhaled steroids; Z79.4 Long term (current) use of insulin; Z77.22 Contact with and (suspected) exposure to environmental tobacco smoke (acute) (chronic); Z95.5 Presence of coronary angioplasty implant and graft; Z80.0 Family history of malignant neoplasm of digestive organs; W19.XXXA Unspecified fall, initial encounter; Y92.009 Unspecified place in unspecified non-institutional (private) residence as the place of occurrence of the external cause
CPT/HCPCS: 36415; 51702; 70450; 71045; 71250; 72125; 72170; 74176; 80048; 80053; 81000; 82728; 82962; 83605; 83615; 84145; 85007; 85027; 85610; 85652; 85730; 86141; 87040; 87088; 87430; 87804

== ENCOUNTER 2020-02-24 19:42 | Emergency (ER) | payer MEDICARE, MEDICAID ==
[~2020-02-24] VITALS: Ht 175 cm; Wt 60.0 kg
[2020-02-24] MEDS ORDERED: NS IV 1000 ML 1,000 ML ONE (19:58)
[2020-02-24 20:12] LABS: BASOPHILS % (AUTO) 0 % (0-10); EOSINOPHILS % (AUTO) 0 % (0-10); HEMATOCRIT 29 % (35-52); HEMOGLOBIN 8.9 G/DL (11.5-16.0); LYMPHOCYTES # (AUTO) 1.4 X 10^3 (1.0-4.0); LYMPHOCYTES % (AUTO) 7 % (12-44); MEAN CORPUSCULAR HEMOGLOBIN 27 PG (25-34); MEAN CORPUSCULAR HGB CONC 30 G/DL (32-36); MEAN CORPUSCULAR VOLUME 90 FL (80-99); MEAN PLATELET VOLUME 10.7 FL (7.4-10.4); MONOCYTES # (AUTO) 1.2 X 10^3 (0.0-1.0); MONOCYTES % (AUTO) 6 % (0-12); NEUTROPHILS # (AUTO) 16.7 X 10^3 (1.8-7.8); NEUTROPHILS % (AUTO) 86 % (42-75); PLATELET COUNT 423 10^3/uL (130-400); WHITE BLOOD COUNT 19.3 10^3/uL (4.3-11.0)
[2020-02-24 20:25] LABS: CLARITY,URINE CLEAR; COLOR,URINE YELLOW; GLUCOSE, URINE (UA) NEGATIVE (NEGATIVE); KETONES,URINE TRACE (NEGATIVE); LEUKOCYTE ESTERASE ,URINE TRACE (NEGATIVE); NITRITE,URINE NEGATIVE (NEGATIVE); PROTEIN,URINE 1+ (NEGATIVE)
[2020-02-24 20:33] LABS: ABG BASE EXCESS -3.6 MMOL/L (-2.5-2.5); ABG PCO2 47 MMHG (35-45); ABG PO2 128 MMHG (79-93); ABG TCO2 23.5 MMOL/L (21.0-31.0)
[2020-02-24 20:35] LABS: ABG OXYGEN SATURATION 97 % (94-100)
[2020-02-24 20:36] LABS: ALANINE AMINOTRANSFERASE 19 U/L (0-55); ALBUMIN 3.4 GM/DL (3.2-4.5); ALKALINE PHOSPHATASE 100 U/L (40-136); BILIRUBIN,TOTAL 0.4 MG/DL (0.1-1.0); BUN/CREATININE RATIO 8; CALCIUM 7.4 MG/DL (8.5-10.1); CARBON DIOXIDE 20 MMOL/L (21-32); CREATININE SERUM 4.98 MG/DL (0.60-1.30); GFR ESTIMATED 9; GLUCOSE 143 MG/DL (70-105); LIPASE 7 U/L (8-78); TOTAL PROTEIN 6.6 GM/DL (6.4-8.2)
[2020-02-24 20:36] LABS: ABG PH 7.29 (7.37-7.43)
[2020-02-24 20:38] LABS: ALLENS TEST POSITIVE; INSPIRED O2 4; PATIENT TEMP 36.7; VENTILATOR NO
[2020-02-24 20:39] LABS: INR 1.1 (0.8-1.4); PROTHROMBIN TIME PATIENT 14.3 SEC (12.2-14.7)
[2020-02-24 20:53] LABS: AMORPHOUS SEDIMENT,UR LARGE AMOR URATES /LPF; BACTERIA,URINE TRACE /HPF; RBC,URINE 0-2 /HPF; WBC,URINE 0-2 /HPF
[2020-02-24 20:54] LABS: BILIRUBIN,URINE 1+ (NEGATIVE)
[2020-02-24 20:55] LABS: AMMONIA 18 UMOL/L (11-32); CHLORIDE 97 MMOL/L (98-107); SODIUM 137 MMOL/L (135-145)
[2020-02-24 20:57] LABS: AMPHETAMINE SCREEN, URINE NEGATIVE (NEGATIVE); BENZODIAZEPINES SCREEN URINE POSITIVE (NEGATIVE); COCAINE SCREEN URINE POSITIVE (NEGATIVE); METHAMPHETAMINE SCREEN URINE S NEGATIVE (NEGATIVE)
[2020-02-24 20:58] LABS: BARBITURATE SCREEN URINE NEGATIVE (NEGATIVE); CANNABINOID SCREEN, URINE NEGATIVE (NEGATIVE); METHADONE STAT NEGATIVE (NEGATIVE); OPIATE SCREEN URINE POSITIVE (NEGATIVE); OXYCODONE STAT POSITIVE (NEGATIVE); PROPOXYPHENE STAT NEGATIVE (NEGATIVE); TRICYCLIC ANTIDEPRESSANTS SCRE POSITIVE (NEGATIVE)
[2020-02-24 20:58] LABS: MAGNESIUM 0.7 MG/DL (1.6-2.4)
--- NOTE | 2020-02-24 21:02 | Diagnostic Imaging Report ---
CLINICAL INDICATION: Patient very weak and not responsive. EXAM: Axial CT scan of brain performed without IV contrast. COMPARISON: Head CT without contrast dated 02/15/2020. FINDINGS: There is no evidence of acute cerebral infarct, intracranial hemorrhage, or gross mass effect. The brain parenchymal volume appears appropriate for patient's age. There is normal stephens-white matter distinction. There is no significant midline shift or herniation. There is no evidence of hydrocephalus. The basal cisterns are unremarkable. The skull, extracranial soft tissue, and orbits are unremarkable. The paranasal sinuses are unremarkable. Temporal bones show no significant abnormality. IMPRESSION: Stable CT scan of the brain with no evidence of acute intracranial process. Dictated by: Dictated on workstation # [id number]
[2020-02-24 21:08] LABS: BAND NEUTROPHILS 1 %; HYPOCHROMASIA MODERATE; LYMPHOCYTES % (MANUAL) 6 %; MONOCYTES % (MANUAL) 7 %; NEUTROPHILS % (MANUAL) 86 %
--- NOTE | 2020-02-24 21:20 | Diagnostic Imaging Report ---
Clinical Indications: Patient with abdominal pain. Not very responsive. EXAM: CT scan of the abdomen and pelvis performed without contrast. Sagittal and coronal reformatted images are created. Auto Exposure Controls were utilized during the CT exam to meet ALARA standards for radiation dose reduction. COMPARISON: CT scan of the chest, abdomen, and pelvis without contrast dated 02/15/2020. FINDINGS: The visualized lung bases are clear. There is lower lumbar spine facet arthropathy. There are small spurs involving the visualized lower thoracic spine and lumbar spine. There is interval progression of marked air and fluid distention of the stomach, duodenum, jejunum, and ileum. There is also fluid and air distention of the ascending colon and transverse colon with transition point involving the distal transverse colon. The remainder of the colon is decompressed. There is no mass or obstructive lesion at this transition point to determine the etiology. These findings are concerning for high-grade distal colonic obstruction. There is a small amount of stool within the hepatic flexure of the colon. There is no intraabdominal free air or free fluid. There is no lymphadenopathy. There are postoperative changes with multiple surgical clips in the abdomen. The liver, spleen, pancreas, and adrenal glands unremarkable. Gallbladder is not visualized and may possibly be surgically resected. Both kidneys are unremarkable with no hydronephrosis or stones. There is no bladder mass seen. The bladder is decompressed with a Sheth catheter within it. Again seen are postoperative changes with surgical incision/defect involving the anterior abdominal wall. The uterus is surgically absent. The right and left ovaries are not visualized and may also possibly be surgically resected. Extra abdominal and extrapelvic soft tissue structures are unremarkable. IMPRESSION: 1. There is interval progression of air and fluid dilation of the stomach, small bowel, and colon. There is a transition point involving the distal transverse colon. There is a small amount of stool near the transition point and the remainder of the colon is decompressed. This is concerning for a high grade colonic obstruction. There is no intraabdominal free air or free fluid. 2: The remainder of this exam shows no other significant interval abnormality. Results of this report were discussed with Dr. Dr. Mahan via the telephone on 02/24/2020 at 2107 hours. Dictated by: Dictated on workstation # [id number]
[2020-02-24 21:28] LABS: POTASSIUM 6.5 MMOL/L (3.6-5.0)
[2020-02-24] MEDS ORDERED: MAGNESIUM 1 GM/100 ML IVPB 100 ML IV ONE ×2 (21:30→23:15)
[2020-02-24] MEDS ORDERED: PIPERACILLIN SODIUM/TAZOBACTAM 2.25 GM in NS (IVPB) 100 ML IV ONE (21:30)
[2020-02-24] MEDS ORDERED: NS IV 1000 ML 1,000 ML IV ONE (22:39)
--- NOTE | 2020-02-24 23:08 | ED General ---
General Stated Complaint: ABDOMINAL PAIN Source of Information: Patient, EMS, Old Records Exam Limitations: Physical Impairments History of Present Illness Date Seen by Provider: Feb 24, 2020 Time Seen by Provider: 19:45 Initial Comments This 69-year-old woman presents to the emergency room via EMS for decompensation at home including abdominal distention, weakness, and altered mental status. She had recently been seen in this emergency room and diagnosed with pneumonia, sepsis and acute renal failure. She was transferred to [facility] on February 15. She returned home and has not done well since that time. Her has a very hard time taking care of her. She is alert but very somnolent/lethargic on arrival. She is afebrile. Oxygen saturation is in the upper 90s on her usual 2-3 L by nasal cannula. Systolic blood pressures are in the low 90s. It was reported that she has GI and liver issues on arrival. I was later able to review her chart and discuss issues with her . reports that she had confusion about medications after returning home. She resumed taking her prior medications rather than the changes recommended on discharge from the hospital. Patient denies any pain. Allergies and Home Medications Allergies Coded Allergies: Iodinated Contrast Media (Verified Allergy, Mild, HIVES, 12/08/19) linezolid (Verified Allergy, Mild, HIVE, 12/08/19) Home Medications Albuterol Sulfate 2.5 Mg/3 Ml Vial.neb, 2.5 MG NEB QID PRN for SHORTNESS OF BREATH, (Reported) Albuterol/Ipratropium 4 Gm Aero, 1 PUFF IH QID, (Reported) Alprazolam 1 Mg Tablet, 1 MG PO 0800,1200, (Reported) Alprazolam 1 Mg Tablet, 0.5 MG PO HS, (Reported) Aspirin 81 Mg Tablet.dr, 81 MG PO DAILY, (Reported) Atorvastatin Calcium 10 Mg Tablet, 10 MG PO HS, (Reported) Bethanechol Chloride 10 Mg Tablet, 10 MG PO BID Prescribed by: RANDAL QIU on 01/30/20 1044 Cetirizine HCl 10 Mg Tablet, 10 MG PO DAILY, (Reported) Cyanocobalamin 1,000 Mcg/Ml Inj, 1,000 MCG IM ONCE, (Reported) Cyclobenzaprine HCl 10 Mg Tablet, 10 MG PO TID PRN for MUSCLE SPASMS, (Reported) Dicyclomine HCl 10 Mg Capsule, 10 MG PO BID, (Reported) Fluticasone Propionate 9.9 Ml [place].susp, 1 SPRAY NS DAILY, (Reported) 1 SPRAY EACH NARE DAILY Fluticasone/Salmeterol 1 Each Blst.w.dev, 1 PUFF IH BID, (Reported) Furosemide 20 Mg Tablet, 20 MG PO DAILY, (Reported) Insulin Glargine,Hum.rec.anlog 100 Unit/1 Ml Insuln.pen, 10 UNIT SQ HS, (Reported) Lisinopril 10 Mg Tablet, 10 MG PO DAILY Prescribed by: RANDAL QIU on 01/29/202121 Meclizine HCl 25 Mg Tablet, 25 MG PO TID PRN for VERTIGO, (Reported) Metformin HCl 1,000 Mg Tablet, 1,000 MG PO BID WITH MEALS, (Reported) Metoclopramide HCl 10 Mg Tablet, 10 MG PO QID, (Reported) Montelukast Sodium 10 Mg Tablet, 10 MG PO HS, (Reported) Omeprazole 20 Mg Capsule.dr, 20 MG PO BID, (Reported) Ondansetron 4 Mg Tab.rapdis, 4 MG PO Q6H PRN for NAUSEA/VOMITING-1ST LINE Prescribed by: RANDAL QIU on 01/29/202121 Oxycodone HCl 10 Mg Tablet, 10 MG PO Q6H PRN for PAIN-SEVERE (8-10) Prescribed by: LUKAS NUNES on 02/09/20 1143 Potassium Chloride 10 Meq Tab.er.prt, 10 MEQ PO TID, (Reported) Pregabalin 150 Mg Capsule, 150 MG PO BID, (Reported) Quetiapine Fumarate 50 Mg Tablet, 50 MG PO HS, (Reported) Ranitidine HCl 150 Mg Tablet, 150 MG PO BID, (Reported) Ranolazine 500 Mg Tab.er.12h, 500 MG PO BID, (Reported) Ropinirole HCl 1 Mg Tablet, 1 MG PO HS, (Reported) Sennosides/Docusate Sodium 1 Each Tablet, 1 EA PO BID Prescribed by: RANDAL QIU on 01/29/202121 Tamsulosin HCl 0.4 Mg Cap, 0.4 MG PO DAILY@1800 Prescribed by: RANDAL QIU on 01/29/202121 Patient Home Medication List Home Medication List Reviewed: Yes Review of Systems Review of Systems Constitutional: see HPI EENTM: no symptoms reported Respiratory: see HPI Cardiovascular: no symptoms reported Gastrointestinal: see HPI Genitourinary: no symptoms reported Musculoskeletal: no symptoms reported Skin: no symptoms reported Psychiatric/Neurological: No Symptoms Reported Hematologic/Lymphatic: No Symptoms Reported Immunological/Allergic: no symptoms reported Past Rmuxasy-Gxzqvc-Vxnjxw Hx Past Med/Social Hx: Reviewed and Corrections made Patient Social History Alcohol Beverage of Choice: Rum, Whiskey, [place], Vodka Type Used: Cigarettes 2nd Hand Smoke Exposure: Yes Recent Hopitalizations: Yes Immunizations Up To Date Tetanus Booster (TDap): Unknown Date of Pneumonia Vaccine: Sep 16, 2019 Date of Influenza Vaccine: Sep 15, 2019 Seasonal Allergies Seasonal Allergies: Yes Past Medical History Surgeries: Yes (several exploratomy laparotomies, hernia with mesh) Appendectomy, Coronary Stent, Gallbladder, 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, Vascular Surgery Respiratory: Yes (HOME 02- 3L ) Pneumonia, Chronic Bronchitis, COPD Currently Using CPAP: No Currently Using BIPAP: No Cardiac: Yes (CHF) Chronic Edema/Swelling, High Cholesterol, Hypertension Neurological: Yes Headaches /Migraines, Neuropathy 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 Disorders: No 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 Genitourinary: Yes Renal Failure Gastrointestinal: Yes (SEVERAL BOWEL OBSTRUCTIONS, chronic abd pain) Obstructive Bowel, Hiatal Hernia Musculoskeletal: Yes Arthritis, Fibromyalgia, Chronic Back Pain Endocrine: Yes Diabetes, Non-Insulin dep HEENT: Yes (GLASSES) Loss of Vision: Denies Hearing Impairment: Denies Cancer: No Psychosocial: Yes Anxiety, Depression Integumentary: Yes (CHRONIC ABDOMINAL WOUND- MRSA) Recent Skin Changes Blood Disorders: No Adverse Reaction/Blood Tranf: No (N/A) Family Medical History Reviewed Nursing Family Hx Colon cancer G8 BROTHER (PANCREATIC) Dementia 19 MOTHER G8 BROTHER Hypertension 19 MOTHER Myocardial infarction G8 BROTHER Diabetes, Hypertension, Other Conditions/Hx Physical Exam Vital Signs Vital Signs - First Documented 02/24/20 19:47 Temp 36.7 Pulse 96 Resp 10 B/P (MAP) 93/38 (56) Pulse Ox 100 O2 Delivery Nasal Cannula O2 Flow Rate 4.00 Capillary Refill : Height, Weight, BMI Height: 5'1.00" Weight: 162lbs. 0.0oz. [id number]; 28.00 BMI Method:Stated General Appearance: No Apparent Distress, WD/WN, Other (somnolent, lethargic) HEENT: PERRL/EOMI, Normal ENT Inspection, Other (oropharynx seems dry) Neck: Normal Inspection; No JVD Respiratory: Lungs Clear, Normal Breath Sounds, No Accessory Muscle Use, No Respiratory Distress Cardiovascular: Regular Rate, Rhythm, No Edema, No Murmur Gastrointestinal: Normal Bowel Sounds, Non Tender, Distended (and firm) Extremity: Normal Inspection, No Pedal Edema Neurologic/Psychiatric: Alert (but somnolent/lethargic), Motor Weakness (generalized weakness) Skin: Normal Color, Warm/Dry Focused Exam Lactate Level 02/24/20 19:55: Lactic Acid Level 3.11*H Procedures/Interventions Date of ETT Placement: Feb 03, 2020 Time of ETT Placement: 135 Progress/Results/Core Measures Suspected Sepsis SIRS Temperature: Pulse: Respiratory Rate: Laboratory Tests 02/24/20 19:55: White Blood Count 19.3H Blood Pressure / Mean: 02/24/20 19:55: Lactic Acid Level 3.11*H Laboratory Tests 02/24/20 19:55: Creatinine 4.98H, INR Comment 1.1, Platelet Count 423H, Total Bilirubin 0.4 Results/Orders Lab Results Laboratory Tests Test 02/24/20 19:55 02/24/20 20:20 02/24/20 20:25 02/25/20 00:07 Range/Units White Blood Count 19.3 H 4.3-11.0 10^3/uL Red Blood Count 3.26 L 4.35-5.85 10^6/uL Hemoglobin 8.9 L 11.5-16.0 G/DL Hematocrit 29 L 35-52 % Mean Corpuscular Volume 90 80-99 FL Mean Corpuscular Hemoglobin 27 25-34 PG Mean Corpuscular Hemoglobin Concent 30 L 32-36 G/DL Red Cell Distribution Width 16.0 H 10.0-14.5 % Platelet Count 423 H 130-400 10^3/uL Mean Platelet Volume 10.7 H 7.4-10.4 FL Neutrophils (%) (Auto) 86 H 42-75 % Lymphocytes (%) (Auto) 7 L 12-44 % Monocytes (%) (Auto) 6 0-12 % Eosinophils (%) (Auto) 0 0-10 % Basophils (%) (Auto) 0 0-10 % Neutrophils # (Auto) 16.7 H 1.8-7.8 X 10^3 Lymphocytes # (Auto) 1.4 1.0-4.0 X 10^3 Monocytes # (Auto) 1.2 H 0.0-1.0 X 10^3 Eosinophils # (Auto) 0.0 0.0-0.3 10^3/uL Basophils # (Auto) 0.0 0.0-0.1 10^3/uL Neutrophils % (Manual) 86 % Lymphocytes % (Manual) 6 % Monocytes % (Manual) 7 % Band Neutrophils 1 % Hypochromasia MODERATE Prothrombin Time 14.3 12.2-14.7 SEC INR Comment 1.1 0.8-1.4 Sodium Level 137 135-145 MMOL/L Potassium Level 6.5 *H 3.6-5.0 MMOL/L Chloride Level 97 L 98-107 MMOL/L Carbon Dioxide Level 20 L 21-32 MMOL/L Anion Gap 20 H 5-14 MMOL/L Blood Urea Nitrogen 38 H 7-18 MG/DL Creatinine 4.98 H 0.60-1.30 MG/DL Estimat Glomerular Filtration Rate 9 BUN/Creatinine Ratio 8 Glucose Level 143 H 70-105 MG/DL Lactic Acid Level 3.11 *H 0.50-2.00 MMOL/L Calcium Level 7.4 L 8.5-10.1 MG/DL Corrected Calcium 7.9 L 8.5-10.1 MG/DL Magnesium Level 0.7 *L 1.6-2.4 MG/DL Total Bilirubin 0.4 0.1-1.0 MG/DL Aspartate Amino Transf (AST/SGOT) 54 H 5-34 U/L Alanine Aminotransferase (ALT/SGPT) 19 0-55 U/L Alkaline Phosphatase 100 40-136 U/L Ammonia 18 11-32 UMOL/L C-Reactive Protein High Sensitivity > 16.00 H 0.00-0.50 MG/DL Total Protein 6.6 6.4-8.2 GM/DL Albumin 3.4 3.2-4.5 GM/DL Lipase 7 L 8-78 U/L Serum Alcohol < 10 <10 MG/DL Urine Color YELLOW Urine Clarity CLEAR Urine pH 5.0 5-9 Urine Specific [place] >=1.030 1.016-1.022 Urine Protein 1+ H NEGATIVE Urine Glucose (UA) NEGATIVE NEGATIVE Urine Ketones TRACE H NEGATIVE Urine Nitrite NEGATIVE NEGATIVE Urine Bilirubin 1+ H NEGATIVE Urine Urobilinogen 0.2 < = 1.0 MG/DL Urine Leukocyte Esterase TRACE H NEGATIVE Urine RBC (Auto) NEGATIVE NEGATIVE Urine RBC 0-2 /HPF Urine WBC 0-2 /HPF Urine Squamous Epithelial Cells 5-10 /HPF Urine Crystals PRESENT H /LPF Urine Amorphous Sediment LARGE BERNICE URATES H /LPF Urine Bacteria TRACE /HPF Urine Casts NONE /LPF Urine Mucus NEGATIVE /LPF Urine Culture Indicated NO Urine Opiates Screen POSITIVE H NEGATIVE Urine Oxycodone Screen POSITIVE H NEGATIVE Urine Methadone Screen NEGATIVE NEGATIVE Urine Propoxyphene Screen NEGATIVE NEGATIVE Urine Barbiturates Screen NEGATIVE NEGATIVE Ur Tricyclic Antidepressants Screen POSITIVE H NEGATIVE Urine Phencyclidine Screen POSITIVE H NEGATIVE Urine Amphetamines Screen NEGATIVE NEGATIVE Urine Methamphetamines Screen NEGATIVE NEGATIVE Urine Benzodiazepines Screen POSITIVE H NEGATIVE Urine Cocaine Screen POSITIVE H NEGATIVE Urine Cannabinoids Screen NEGATIVE NEGATIVE Blood Gas Puncture Site LEFT RADIAL Blood Gas Patient Temperature 36.7 Arterial Blood pH 7.29 *L 7.37-7.43 Arterial Blood Partial Pressure CO2 47 H 35-45 MMHG Arterial Blood Partial Pressure O2 128 H 79-93 MMHG Arterial Blood HCO3 22 L 23-27 MMOL/L Arterial Blood Total CO2 23.5 21.0-31.0 MMOL/L Arterial Blood Oxygen Saturation 97 94-100 % Arterial Blood Base Excess -3.6 L -2.5-2.5 MMOL/L Barber Test POSITIVE Blood Gas Ventilator Setting NO Blood Gas Inspired Oxygen 4 Glucometer 169 H 70-110 MG/DL Test 02/25/20 00:50 02/25/20 02:08 Range/Units Glucometer 207 H 190 H 70-110 MG/DL My Orders Orders - TERRA MAHAN MD Alcohol (02/24/20 19:52) Ammonia (02/24/20 19:52) Cbc With Automated Diff (02/24/20 19:52) Comprehensive Metabolic Panel (02/24/20 19:52) Hs C Reactive Protein (02/24/20 19:52) Lipase (02/24/20 19:52) Magnesium (02/24/20 19:52) Ua Culture If Indicated (02/24/20 19:52) Ed Iv/Invasive Line Start (02/24/20 19:52) Drug Screen Stat (Urine) (02/24/20 19:52) Protime With Inr (02/24/20 19:52) Sheth Cath (02/24/20 19:52) Ct Head Wo (02/24/20 19:54) Ct Abdomen/Pelvis Wo (02/24/20 19:54) Ns Iv 1000 Ml (Sodium Chloride 0.9%) (02/24/20 19:58) Manual Differential (02/24/20 19:55) Arterial Blood Gas (02/24/20 20:25) Magnesium 1 Gm/100 Ml Ivpb (Magnesium Deras (02/24/20 21:30) Piperacillin Sodium/Tazobactam (Zosyn Vi (02/24/20 21:30) Ng Tube Insert & Assessment (02/24/20 21:17) Blood Culture (02/24/20 22:37) Sputum Culture (02/24/20 22:37) Urine Culture (02/24/20 22:37) Chest 1 View, Ap/Pa Only (02/24/20 22:37) Vital Signs Adult Sepsis Patie Q15M (02/24/20 22:37) O2 (02/24/20 22:37) Remove Rings In Anticipation O (02/24/20 22:37) Lactic Acid Analyzer (02/24/20 22:37) Ns Iv 1000 Ml (Sodium Chloride 0.9%) (02/24/20 22:39) Magnesium 1 Gm/100 Ml Ivpb (Magnesium Deras (02/24/20 23:15) Ekg Tracing (02/24/20 23:08) Calcium Gluconate 10% Inj (Calcium Glu (02/24/20 23:30) D50w (Emergency) Syringe (Dextrose 50% 5 (02/24/20 23:30) Insulin (Regular) Human (Humulin R (Per (02/24/20 23:30) Sodium Bicarbonate 8.4% Vial (Sodium Bic (02/24/20 23:30) Accucheck Stat ONCE (02/24/20 23:21) Accucheck Stat ONCE (02/24/20 23:21) Ns Iv 1000 Ml (Sodium Chloride 0.9%) (02/25/20 00:31) Chest 1 View, Ap/Pa Only (02/25/20 01:01) Norepinephrine 4 Mg/250 Ml (Norepinephri (02/25/20 01:30) Ns Iv 1000 Ml (Sodium Chloride 0.9%) (02/25/20 01:27) Norepinephrine 4 Mg/250 Ml (Norepinephri (02/25/20 01:21) Medications Given in ED Current Medications Medications Dose Ordered Sig/Alexandru Route Start Time Stop Time Status Last Admin Dose Admin Calcium Gluconate 4.65 meq/Sodium Chloride 60 ml @ 120 mls/hr ONCE ONCE IV 02/24/20 23:30 02/24/20 23:59 DC 02/25/20 00:19 120 MLS/HR Dextrose 25 ml ONCE ONCE IV 02/24/20 23:30 02/24/20 23:31 DC 02/25/20 00:24 25 ML Insulin Human Regular 5 unit ONCE ONCE IV 02/24/20 23:30 02/24/20 23:31 DC 02/25/20 00:23 5 UNIT Magnesium Sulfate/ Dextrose 100 ml @ 100 mls/hr ONCE ONCE IV 02/24/20 21:30 02/24/20 22:29 DC 02/24/20 21:39 100 MLS/HR Magnesium Sulfate/ Dextrose 100 ml @ 100 mls/hr ONCE ONCE IV 02/24/20 23:15 02/25/20 00:14 DC 02/25/20 00:23 100 MLS/HR Piperacillin Sod/ Tazobactam Sod 2.25 gm/Sodium Chloride 100 ml @ 200 mls/hr ONCE ONCE IV 02/24/20 21:30 02/24/20 21:59 DC 02/24/20 21:50 200 MLS/HR Sodium Bicarbonate 50 meq ONCE ONCE IV 02/24/20 23:30 02/24/20 23:31 DC 02/25/20 00:24 50 MEQ Sodium Chloride 1,000 ml @ 0 mls/hr Q0M ONCE IV 02/24/20 22:39 02/24/20 22:40 DC 02/25/20 00:21 999 MLS/HR Vital Signs/I&O 02/24/20 02/24/20 02/25/20 19:47 19:48 01:43 Temp 36.7 Pulse 96 93 Resp 10 B/P (MAP) 93/38 (56) 79/39 Pulse Ox 100 100 O2 Delivery Nasal Cannula Nasal Cannula O2 Flow Rate 4.00 4.00 02/25/20 00:00 Intake Total 200 ml Balance 200 ml Capillary Refill : Progress Note #1: Time: 23:42 Progress Note Patient was seen and examined with general labs ordered as well as CT scan of the head and abdomen. CT of the head demonstrated no acute abnormalities. CT of the abdomen suggested colonic bowel obstruction with distention of the small bowel and stomach. Labs revealed a significant renal failure with creatinine near 5. She also has significant electrolyte abnormalities including hyperkalemia and hypomagnesemia. She is receiving IV magnesium. Stabilization of her hyperkalemia is being pursued with D50, insulin, sodium bicarbonate, and calcium gluconate. No source of infection was found. However, WBC and CRP were both significantly elevated. Patient was empirically treated with Zosyn 2.25 g. I had a discussion with the patient's about her CODE STATUS and his desires for care. Patient has been seriously declining in recent weeks. At this time he wishes to have a DO NOT RESUSCITATE status but to otherwise pursue aggressive care regarding infection, renal failure, altered mental status, etc. Because of patient's severe renal failure, transferred back to [place] was felt most appropriate so that she can receive nephrology services and possibly dialysis if needed. Case was discussed with Dr. Jackson, hospitalist, who accepted transfer. Patient is receiving IV fluids in addition to electrolyte replacement and antibiotics. Mental status remains significantly altered. Progress Note #2: Time: 01:36 Progress Note Patient was prepared for transfer and EMS arrived for transfer. However, she became hypotensive in the meantime and remained hypotensive despite 2 L of IV fluid. She is receiving a third liter of IV fluid now and Levophed is being initiated. Receiving attending was changed to Dr. Pearson, fire sprinkler fitter. NG tube was successfully placed and yielded about 500 mL of stomach contents plus air. NG was coiled in the esophagus and retracted about 7 cm. Progress Note #3: Time: 02:00 Progress Note Systolic blood pressures are now in the 110s and 120s on Levophed 0.3 mcg/kg/m. We are waiting ICU bed assignment. A total of 800 mL stomach contents has been evacuated from the NG tube. Vital signs are otherwise stable. She is maintaining an oxygen saturation of 99 percent on 3 L by nasal cannula in the mouth. She is still alert to voice and is maintaining her airway. The third liter of IV fluids is partially infused. She has received 2 g of magnesium. It is unclear if patient is septic as there has been no source of infection identified. Hypotension may be primarily related to hypovolemia. Urine output has been minimal. Progress Note #4: Time: 02:30 Progress Note Blood sugar prior to departure was 190. Lactic acid returned as 3.11. Vital s igns were stable and normotensive at the time of departure. ECG Initial ECG Impression Date: Feb 24, 2020 Initial ECG Impression Time: 23:37 Initial ECG Rate: 85 Initial ECG Rhythm: Normal Sinus Comment Normal sinus rhythm with no ST elevation or depression. Mildly peaked T waves in V3. No abnormal intervals or axis deviation. Diagnostic Imaging Diagonstic Imaging: CT Plain Films/CT/US/NM/MRI: head Comments CT head viewed by me, report reviewed, and discussed with the radiologist. See report below: NAME: REGI [facility] REC#: [id number] PT STATUS: REG ER : 1950 PHYSICIAN: TERRA MAHAN MD ADMIT DATE: 02/24/20/ER Signed Date of Exam:02/24/20 CT HEAD WO CLINICAL INDICATION: Patient very weak and not responsive. EXAM: Axial CT scan of brain performed without IV contrast. COMPARISON: Head CT without contrast dated 02/15/2020. FINDINGS: There is no evidence of acute cerebral infarct, intracranial hemorrhage, or gross mass effect. The brain parenchymal volume appears appropriate for patient's age. There is normal stephens-white matter distinction. There is no significant midline shift or herniation. There is no evidence of hydrocephalus. The basal cisterns are unremarkable. The skull, extracranial soft tissue, and orbits are unremarkable. The paranasal sinuses are unremarkable. Temporal bones show no significant abnormality. IMPRESSION: Stable CT scan of the brain with no evidence of acute intracranial process. Dictated by: Dictated on workstation # [id number] Dict: 02/24/202052 Trans: 02/24/202157 NAEEM [id number] Interpreted by: LINDSEY DAS MD Electronically signed by: LINDSEY DAS MD 02/24/202157 Diagonstic Imaging: CT Plain Films/CT/US/NM/MRI: abdomen, pelvis Comments CT abdomen and pelvis viewed by me and report reviewed. Discussed with radiologist. See report below: NAME: REGI PAL [facility] REC#: [id number] PT STATUS: REG ER : 1950 PHYSICIAN: TERRA MAHAN MD ADMIT DATE: 02/24/20/ER Signed Date of Exam:02/24/20 CT ABDOMEN/PELVIS WO Clinical Indications: Patient with abdominal pain. Not very responsive. EXAM: CT scan of the abdomen and pelvis performed without contrast. Sagittal and coronal reformatted images are created. Auto Exposure Controls were utilized during the CT exam to meet ALARA standards for radiation dose reduction. COMPARISON: CT scan of the chest, abdomen, and pelvis without contrast dated 02/15/2020. FINDINGS: The visualized lung bases are clear. There is lower lumbar spine facet arthropathy. There are small spurs involving the visualized lower thoracic spine and lumbar spine. There is interval progression of marked air and fluid distention of the stomach, duodenum, jejunum, and ileum. There is also fluid and air distention of the ascending colon and transverse colon with transition point involving the distal transverse colon. The remainder of the colon is decompressed. There is no mass or obstructive lesion at this transition point to determine the etiology. These findings are concerning for high-grade distal colonic obstruction. There is a small amount of stool within the hepatic flexure of the colon. There is no intraabdominal free air or free fluid. There is no lymphadenopathy. There are postoperative changes with multiple surgical clips in the abdomen. The liver, spleen, pancreas, and adrenal glands unremarkable. Gallbladder is not visualized and may possibly be surgically resected. Both kidneys are unremarkable with no hydronephrosis or stones. There is no bladder mass seen. The bladder is decompressed with a Sheth catheter within it. Again seen are postoperative changes with surgical incision/defect involving the anterior abdominal wall. The uterus is surgically absent. The right and left ovaries are not visualized and may also possibly be surgically resected. Extra abdominal and extrapelvic soft tissue structures are unremarkable. IMPRESSION: 1. There is interval progression of air and fluid dilation of the stomach, small bowel, and colon. There is a transition point involving the distal transverse colon. There is a small amount of stool near the transition point and the remainder of the colon is decompressed. This is concerning for a high grade colonic obstruction. There is no intraabdominal free air or free fluid. 2: The remainder of this exam shows no other significant interval abnormality. Results of this report were discussed with Dr. Dr. Mahan via the telephone on 02/24/2020 at 2107 hours. Dictated by: Dictated on workstation # [id number] Dict: 02/24/202053 Trans: 02/24/202157 [facility] [id number] Interpreted by: LINDSEY DAS MD Electronically signed by: LINDSEY DAS MD 02/24/202157 Diagonstic Imaging: Xray Plain Films/CT/US/NM/MRI: chest Comments Chest x-ray viewed by me. Report not yet available. There appears to be some haziness in the lower lung cheung but this does not correlate with any effusion or infiltrate on the CT scan. Diagonstic Imaging: Xray Plain Films/CT/US/NM/MRI: chest Comments NG tube passes into the lower stomach. There is a loop in the upper esophagus. NG was withdrawn about 7 cm to straighten the loop. Departure Impression Primary Impression: Acute renal failure Qualified Codes: N17.9 - Acute kidney failure, unspecified Additional Impressions: Colon obstruction Altered mental status Qualified Codes: R41.82 - Altered mental status, unspecified Hyperkalemia Hypomagnesemia Hypotension Qualified Codes: I95.9 - Hypotension, unspecified Disposition: 02 XFER SHT-TRM HOSP Condition: Improved Transfer Transfer Reason: Exceeds level of care Time Spoke to Accepting Phy: 23:06 Transfer Progress Notes Transfer graciously accepted by Dr. Jackson, hospitalist at [facility]. Attending was changed to Dr. Pearson, fire sprinkler fitter, after patient became hypotensive. Transfer Time: 02:33 Transfer Facility: [facility] Method of Transfer: EMS Departure-Patient Inst. Referrals: RUDOLPH KENT DO (PCP/Family) Primary Care Physician Copy Copies To 1: RUDOLPH KENT JOSHUA T MD Feb 24, 2020 23:08
[2020-02-24] MEDS ORDERED: SODIUM BICARB 8.4% 50 MEQ/50 ML VIAL IV ONE (23:30)
[2020-02-24] MEDS ORDERED: inSUlin (REGULAR) HUMAN 1 UNIT/0.01 ML (CHARGE PER UNIT) IV ONE (23:30)
[2020-02-24] MEDS ORDERED: DEXTROSE 50% 50 ML (IMS) SYR IV ONE (23:30)
[2020-02-24] MEDS ORDERED: CALCIUM GLUCONATE 10% INJ 4.65 MEQ in NS (IVPB) 50 ML IV ONE (23:30)
[2020-02-25] MEDS ORDERED: NS IV 1000 ML 1,000 ML IV ONE (00:31)
[2020-02-25] MEDS ORDERED: NOREPINEPHRINE 4 MG/250 ML 250 ML IV ONE (01:21)
[2020-02-25] MEDS ORDERED: NS IV 1000 ML 1,000 ML IV SCH (01:27)
[2020-02-25] MEDS ORDERED: NOREPINEPHRINE 4 MG/250 ML 250 ML IV SCH (01:30)
--- NOTE | 2020-02-25 01:40 | NUR ---
DR. CRISTINA AT BEDSIDE AND AWARE OF LOW BP's. NEW ORDERS RECEIVED.
[2020-02-25 02:33] VITALS: BP 122/42
--- NOTE | 2020-02-25 06:56 | Diagnostic Imaging Report ---
EXAMINATION: Portable erect AP chest at 1047h. INDICATION: Sepsis The heart size is within normal limits and stable when compared to 02/15/2020. The central pulmonary vascularity does seem somewhat more prominent than on the prior exam although not significantly changed. There is still no evidence for overt failure or pneumonia. There is no significant pleural effusion identified either. There may be somewhat greater distention of stomach by gas. The mediastinum is widened. The osseous structures are intact. IMPRESSION: 1. The central pulmonary vascularity may be somewhat more prominent than on the prior exam and overall there has been no significant change since the prior study. There is no evidence of failure, pneumonia or for a pleural effusion. Dictated by: Dictated on workstation # [id number]
--- NOTE | 2020-02-25 07:04 | Diagnostic Imaging Report ---
EXAMINATION: Portable erect AP chest at 110h. INDICATION: NG line placement In the interval since the exam performed on 02/24/2020 an NG line has been inserted. The tip of the line is not well visualized but the tip seems to be in the region of the body of the stomach. The NG line does appear to be looped on itself in the region of the hypopharynx. The stomach is still considerably distended by gas. The overall appearance of the chest itself is essentially no different. Bilateral central venous catheters are again evident. These are unchanged in position when compared to the prior exam. IMPRESSION: 1. There has been interval insertion an NG line. The tip of the tube is not visualized but appears to be in the region of the gastric body. If further evaluation is desired, then abdomen exam would be recommended. 2. The NG line itself is looped on itself in the hypopharynx. 3. The overall appearance of the chest itself is stable. 4. These results were called to the Emergency Room at 8:22 AM. Reportedly, the patient has been transferred to [facility], in [place], [place]. Dictated by: Dictated on workstation # [id number]
== END 2020-02-25 02:33 | disposition short-term general hospital (02) ==
LOC: EDUNIT# 19:42 → ER 19:45
DX: N17.9 Acute kidney failure, unspecified (principal); K56.609 Unspecified intestinal obstruction, unspecified as to partial versus complete obstruction; R41.82 Altered mental status, unspecified; E87.5 Hyperkalemia; E83.42 Hypomagnesemia; I95.9 Hypotension, unspecified; Z66 Do not resuscitate; Z95.5 Presence of coronary angioplasty implant and graft; J44.9 Chronic obstructive pulmonary disease, unspecified; Z99.2 Dependence on renal dialysis; E78.00 Pure hypercholesterolemia, unspecified; E11.40 Type 2 diabetes mellitus with diabetic neuropathy, unspecified; I11.0 Hypertensive heart disease with heart failure; I50.9 Heart failure, unspecified; N12 Tubulo-interstitial nephritis, not specified as acute or chronic; M19.91 Primary osteoarthritis, unspecified site; M79.7 Fibromyalgia; M54.9 Dorsalgia, unspecified; F41.9 Anxiety disorder, unspecified; F32.9 Major depressive disorder, single episode, unspecified; Z86.14 Personal history of Methicillin resistant Staphylococcus aureus infection; Z79.82 Long term (current) use of aspirin; Z79.4 Long term (current) use of insulin; Z79.899 Other long term (current) drug therapy
CPT/HCPCS: 36415; 51702; 70450; 71045; 74176; 80053; 80306; 80320; 81000; 82140; 82805; 82962; 83605; 83690; 83735; 85007; 85027; 85610; 86141; 87040

== ENCOUNTER 2020-03-09 14:21 | Emergency (ER) | payer MEDICARE, MEDICAID ==
[~2020-03-09] VITALS: Ht 154 cm; Wt 69.5 kg
[2020-03-09] MEDS ORDERED: NS IV 1000 ML 1,000 ML IV SCH (14:33)
--- OUTSIDE RECORDS SUMMARY | 2020-03-09 14:36 | XMS REPORT | Continuity of Care Document ---
Author Organization Unknown Address Unknown Phone Unavailable Allergies Active Description Code Type Severity Reaction Onset Reported/Identified Relationship to Patient Clinical Status Yes Iodinated Contrast Media [id number] Drug Allergy Unknown N/A 08/17/2015 Yes Iodinated Contrast Media - IV Dye [id number] Drug Allergy Unknown N/A 015 Yes Iodinated Contrast Media - Oral and [id number] Drug Allergy Unknown N/A 08/17/2015 Yes Iodinated Contrast- Oral and IV Dye [id number] Drug Allergy Unknown N/A 08/17/2015 Yes linezolid [id number] Drug Allergy Unknown N/A 08/17/2015 Yes Iodinated Contrast Media [id number] Drug Allergy Mild HIVES 12/08/2019 Yes linezolid [id number] Drug Allergy Mild HIVE 12/08/2019 Medications There [...] 276.8 HYPO POTASSEMIA 06/13/2011 Ot 305.1 TOBA MASK DESIGNER USE DISORDER 06/13/2011 Ot 311 DEPRES SIVE DISORDER NEC 06/13/2011 Ot 383.1 SITE CONTROLLER AISHA MASTOIDITIS 06/13/2011 Ot 496 CHR AI RWAY OBSTRUCT NEC 06/13/2011 Ot 560.1 PARA LYTIC ILEUS 06/13/2011 Ot 560.32 FEC AL IMPACTION 06/13/2011 Ot 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 [id number]/INF 06/13/2011 Ot 729.1 MYAL NICKIE AND MYOSITIS [...] DEPEND NOS- UNSPEC 03/01/2013 Ot 305.1 TOBA MASK DESIGNER USE DISORDER 03/01/2013 Ot 311 DEPRES SIVE DISORDER NEC 03/01/2013 Ot 345.90 EPI LEPSY UNSPEC W/O MENTION INTRACTABLE 03/01/2013 Ot 496 CHR AI RWAY OBSTRUCT NEC 03/01/2013 Ot 530.81 ESO PHAGEAL REFLUX 03/01/2013 Ot 560.9 INTE STINAL OBSTRUCT NOS 03/01/2013 Ot 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 MKKRNUDWU-NKTH-JR/INF 03/01/2013 Ot 571.8 SITE CONTROLLER AISHA LIVER DIS NEC 03/01/2013 Ot 596.51 [...] TYPE II OR UNSPEC TY 08/31/2013 RUDOLPH KNET DO Ot 266.2 B-COMPLEX DEFIC NEC 08/31/2013 [...] OF METHICILLIN RESISTANT S 04/16/2014 JIMMY KENT DRAFTING LAYOUT WORKER Ot 879.2 OPN WND ANTERIOR ABDOMEN 04/16/2014 JIMMY KENT DRAFTING LAYOUT WORKER Ot V58.81 FIT/ADJ VASCULAR CATHETER 06/04/2014 CHA VERDUGO DO Ot 531.90 STOMACH ULCER NOS 07/09/2014 CHA VERDUGO DO Ot 531.90 STOMACH ULCER NOS 07/16/2014 JIMMY KENT DRAFTING LAYOUT WORKER Ot 709.8 SKIN DISORDERS NEC 07/16/2014 JIMMY KENT DRAFTING LAYOUT WORKER Ot V58.81 FIT/ADJ VASCULAR CATHETER 07/30/2014 JIMMY KENT DRAFTING LAYOUT WORKER Ot V58.81 FIT/ADJ VASCULAR CATHETER 08/20/2014 CHA [...] MD Ot 414. 01 CORONARY ATHEROSCLEROSIS OF [place] CORON 09/24/2014 JUAN LICONA MD Ot 496 CHR AIRWAY OBSTRUCT NEC 09/24/2014 JUAN LICONA MD Ot V58. 67 LONG-TERM (CURRENT) USE OF INSULIN 09/24/2014 JUAN LICONA MD Ot V58. 69 OTH MED,LT,CURRENT USE 09/30/2014 JIMMY KENT DRAFTING LAYOUT WORKER Ot 709.8 09/30/2014 JIMMY KENTP Ot 709.8 [...] DO Ot 786. 09 04/28/2015 JIMMY KENT DRAFTING LAYOUT WORKER Ot 486 04/28/2015 JIMMY KENT DRAFTING LAYOUT WORKER Ot 789.00 04/28/2015 JIMMY KENT DRAFTING LAYOUT WORKER Ot 959.6 04/28/2015 JIMMY KENT DRAFTING LAYOUT WORKER Ot E000.8 04/28/2015 YOLIJIMMY DRAFTING LAYOUT WORKER Ot E849.4 04/28/2015 YOLI JIMMY L DRAFTING LAYOUT WORKER Ot E888.9 04/28/2015 ANDREA FERRO DPM Ot 355. 5 04/28/2015 DIANN VERDUGO DOTIE Ot 530.10 04/28/2015 LUCINADIANN OLJA DOTIE Ot 553.3 04/28/2015 CHA VERDUGO DO [...] V85.33 BODY MASS INDEX 33.0-33.9, ADULT 06/10/2015 ARY COLBY MD Ot 998.83 06/10/2015 RAY COLBY [...] 09/28/2015 Ot 998.59 09/28/2015 Ot V58.81 09/28/2015 JIMYM VARGAS Alin PRINTMAKER Ot 780.60 09/28/2015 JIMMY VARGAS Alin PRINTMAKER Ot 786.2 09/28/2015 JIMMY VARGAS Alin PRINTMAKER Ot 793.19 09/28/2015 KENT DO, RUDOLPH Mandi [...] VERDUGO DOROUTIE Ot 787.20 09/28/2015 JIMMY KENT DRAFTING LAYOUT WORKER Ot 486 09/28/2015 JIMMY KENT DRAFTING LAYOUT WORKER Ot 789.00 09/28/2015 ADAMA KENTIA Jr DRAFTING LAYOUT WORKER Ot 959.6 09/28/2015 JIMMY KENT DRAFTING LAYOUT WORKER Ot E000.8 09/28/2015 ADAMA KENTIA L DRAFTING LAYOUT WORKER Ot E849.4 09/28/2015 ADAMA KENTIA L DRAFTING LAYOUT WORKER Ot E888.9 10/04/2015 RUDOLPH KENT DO Ot [...] 998.59 11/10/2015 Ot V58.81 11/10/2015 RIDINGSJIMMY C PRINTMAKER Ot 780.60 11/10/2015 RIDINGSADAMAIA C PRINTMAKER Ot 786.2 11/10/2015 RIDINGSJIMMY C PRINTMAKER Ot 793.19 11/10/2015 RUDOLPH KENT DO Ot [...] ALEXANDRE, JUAN Raymond Ot V46. 2 11/10/2015 ILVAN ALEXANDRE, JUAN Raymond Ot 272. 4 11/10/2015 [...] , MEDARDOROUTIE Ot 787.20 11/10/2015 JIMMY KENT DRAFTING LAYOUT WORKER Ot 486 11/10/2015 JIMMY KENT DRAFTING LAYOUT WORKER Ot 789.00 11/10/2015 JIMMY KENT DRAFTING LAYOUT WORKER Ot 959.6 11/10/2015 JIMMY KENT DRAFTING LAYOUT WORKER Ot E000.8 11/10/2015 JIMMY KENT DRAFTING LAYOUT WORKER Ot E849.4 11/10/2015 JIMMY KENT DRAFTING LAYOUT WORKER Ot E888.9 03/28/2016 RUDOLPH KENT DO Ot [...] Ot R60.9 EDEMA, UNSPECIFIED 04/20/2016 Ot 383.1 SITE CONTROLLER AISHA MASTOIDITIS 04/20/2016 Ot 787.20 DYS PHAGIA, [...] V76.12 OTH SCREEN MAMMO- MALIGN NEOPLASM OF [place] 04/20/2016 Ot 998.59 OTH POSTOPER INFECTION 04/20/2016 Ot V58.81 FIT /ADJ VASCULAR CATHETER 04/20/2016 RIDINGS, JIMMY C PRINTMAKER Ot 780.60 FEVER, UNSPECIFIED 04/20/2016 RIDINGS, JIMMY C PRINTMAKER Ot 786.2 COUGH 04/20/2016 RIDINGS, JIMMY C PRINTMAKER Ot 793.19 OTHER NONSPECIFIC ABNORMAL FINDING OF [...] Ot 787.20 DYSPHAGIA, UNSPECIFIED 04/20/2016 JIMMY KENT DRAFTING LAYOUT WORKER Ot 486 PNEUMONIA, ORGANISM NOS 04/20/2016 JIMMY KENT DRAFTING LAYOUT WORKER Ot 789.00 ABDOMINAL PAIN, UNSPECIFIED SITE 04/20/2016 JIMMY KENT DRAFTING LAYOUT WORKER Ot 959.6 HIP THIGH INJURY NOS 04/20/2016 JIMMY KENT DRAFTING LAYOUT WORKER Ot E000.8 OTHER EXTERNAL CAUSE STATUS 04/20/2016 KENT, JIMMY Jr GARCIA Ot E849.4 ACCID IN RECREATION AREA 04/20/2016 JIMMY KENT Ot E888.9 FALL NOS 04/20/2016 WAUSAUKEE PETRA NICKERSON Ot 724. 5 BACKACHE NOS 04/20/2016 CAIO KRISHAN, PETRA Raymond Ot 786. 50 CHEST PAIN NOS 04/20/2016 WAUSAUKEE PETRA NICKERSON Ot 724. 1 PAIN IN THORACIC SPINE 04/20/2016 WAUSAUKEE PETRA NICKERSON Ot 786. 50 CHEST PAIN NOS 04/20/2016 RUDOLPH KENT DO Ot 414.00 CORON ATHEROSCLER NOS TYPE VESSEL, NATIV 04/20/2016 RUDOLPH KENT DO Ot 786.50 CHEST PAIN NOS 04/20/2016 RUDOLPH KENT DO Ot I25.10 ATHSCL HEART DISEASE OF [place] CORONARY 04/20/2016 RUDOLPH KENT DO Ot R07.9 [...] FOR ADJUSTMENT AND MANAGEMENT 06/29/2016 Ot 383.1 SITE CONTROLLER AISHA MASTOIDITIS 06/29/2016 Ot 787.20 DYS PHAGIA, [...] /ADJ VASCULAR CATHETER 06/29/2016 RIDINGS, JIMMY C PRINTMAKER Ot 780.60 FEVER, UNSPECIFIED 06/29/2016 RIDINGS, JIMMY C PRINTMAKER Ot 786.2 COUGH 06/29/2016 RIDTONY, JIMMY C PRINTMAKER Ot 793.19 OTHER NONSPECIFIC ABNORMAL FINDING OF [...] 786. 09 RESPIRATORY ABNORM NEC 06/29/2016 JUAN LICOAN MD Ot 786. 50 CHEST PAIN NOS [...] Ot 787.20 DYSPHAGIA, UNSPECIFIED 06/29/2016 JIMMY KENT DRAFTING LAYOUT WORKER Ot 486 PNEUMONIA, ORGANISM NOS 06/29/2016 JIMMY KENT DRAFTING LAYOUT WORKER Ot 789.00 ABDOMINAL PAIN, UNSPECIFIED SITE 06/29/2016 JIMMY KENT DRAFTING LAYOUT WORKER Ot 959.6 HIP THIGH INJURY NOS 06/29/2016 JIMMY KENT DRAFTING LAYOUT WORKER Ot E000.8 OTHER EXTERNAL CAUSE STATUS 06/29/2016 JIMMY KENT DRAFTING LAYOUT WORKER Ot E849.4 ACCID IN RECREATION AREA 06/29/2016 JIMMY KENT DRAFTING LAYOUT WORKER Ot E888.9 FALL NOS 07/21/2016 Ot 383.1 SITE CONTROLLER AISHA MASTOIDITIS 07/21/2016 Ot 787.20 DYS PHAGIA, [...] /ADJ VASCULAR CATHETER 07/21/2016 RIDINGS, JIMMY C PRINTMAKER Ot 780.60 FEVER, UNSPECIFIED 07/21/2016 RIDINGS, JIMMY C PRINTMAKER Ot 786.2 COUGH 07/21/2016 RIDINGS, JIMMY C PRINTMAKER Ot 793.19 OTHER NONSPECIFIC ABNORMAL FINDING OF [...] Ot 786. 09 RESPIRATORY ABNORM NEC 07/21/2016 JAUN LICONA MD Ot 786. 50 CHEST PAIN [...] DO Ot I25.10 ATHSCL HEART DISEASE OF [place] CORONARY 07/21/2016 RUDOLPH KENT DO Ot R07.9 [...] CROWLEY APRN Ot R06.00 DYSPNEA, UNSPECIFIED 07/21/2016 RUDOPLH KENT DO, Ot Z45.2 ENCOUNTER FOR [...] FOR ADJUSTMENT AND MANAGEMENT 10/31/2016 Ot 383.1 SITE CONTROLLER AISHA MASTOIDITIS 10/31/2016 Ot 787.20 DYS PHAGIA, [...] /ADJ VASCULAR CATHETER 10/31/2016 RIDINGS, JIMMY C PRINTMAKER Ot 780.60 FEVER, UNSPECIFIED 10/31/2016 RIDINGS, JIMMY C PRINTMAKER Ot 786.2 COUGH 10/31/2016 RIDINGS, JIMMY C PRINTMAKER Ot 793.19 OTHER NONSPECIFIC ABNORMAL FINDING OF CATHLEEN 10/31/2016 KENTRUDOLPH BURNHAM DO Ot 486 PNEUMONIA, ORGANISM NOS 10/31/2016 KENTRUDOLPH BURNHAM DO Ot 780.60 FEVER, UNSPECIFIED 10/31/2016 KENTRUDOLPH BURNHAM DO Ot 793.19 OTHER NONSPECIFIC ABNORMAL FINDING OF CATHLEEN 10/31/2016 LUCINA VILLALPANDO DIANNKASH Ot V72.84 EXAM PRE-OPERATIVE NOS 10/31/2016 LUCINA CHA VILLALPANDO Ot 787.20 DYSPHAGIA, UNSPECIFIED 10/31/2016 LUCINA VILLALPANDO DIANNAKSH Ot V72.84 EXAM PRE-OPERATIVE NOS 10/31/2016 LUCINA [...] Ot 787.20 DYSPHAGIA, UNSPECIFIED 10/31/2016 JIMMY KENT DRAFTING LAYOUT WORKER Ot 486 PNEUMONIA, ORGANISM NOS 10/31/2016 JIMMY KENT DRAFTING LAYOUT WORKER Ot 789.00 ABDOMINAL PAIN, UNSPECIFIED SITE 10/31/2016 JIMMY KENTP Ot 959.6 HIP THIGH INJURY NOS 10/31/2016 JIMMY KENT DRAFTING LAYOUT WORKER Ot E000.8 OTHER EXTERNAL CAUSE STATUS 10/31/2016 [...] DO Ot I25.10 ATHSCL HEART DISEASE OF [place] CORONARY 10/31/2016 RUDOLPH KENT DO Ot R07.9 [...] Z45.2 ENCOUNTER FOR ADJUSTMENT AND MANAGEMENT 03/09/2017 RUDOLHP KENT DO, Ot Z45.2 ENCOUNTER FOR [...] ROSA Ot I25.10 ATHSCL HEART DISEASE OF [place] CORONARY 05/01/2017 FRANDY DE LA ROSA Ot I25.10 ATHSCL HEART DISEASE OF [place] CORONARY 05/08/2017 RUDOLPH KENT DO Ot Z45.2 [...] ROSA Ot I25.10 ATHSCL HEART DISEASE OF [place] CORONARY 05/29/2017 FRANDY DE LA ROSA Ot E11.9 TYPE 2 DIABETES MELLITUS WITHOUT COMPLIC 05/29/2017 FRANDY DE [place] Ot E78.2 MIXED HYPERLIPIDEMIA 05/29/2017 FRANDY DE [place] ROSA Ot I10 ESSENTIAL (PRIMARY) HYPERTENSION 05/29/2017 FRANDY DE [place] ROSA Ot I25.10 ATHSCL HEART DISEASE OF [place] CORONARY 05/31/2017 FRANDY DE LA ROSA Ot E11.9 TYPE 2 DIABETES MELLITUS WITHOUT COMPLIC 05/31/2017 FRANDY DE [place] ROSA Ot E78.2 MIXED HYPERLIPIDEMIA 05/31/2017 FRANDY DE [place] ROSA K Ot I10 ESSENTIAL (PRIMARY) HYPERTENSION 05/31/2017 FRANDY DE [place] ROSA Ot I25.10 ATHSCL HEART DISEASE OF [place] CORONARY 06/05/2017 RUDOLPH KENT DO, Ot Z45.2 [...] ROSA Ot I25.10 ATHSCL HEART DISEASE OF [place] CORONARY 07/03/2017 RUDOLPH KENT DO, Ot Z45.2 [...] TO OTHER SPECIFIED FACTORS, INI 08/16/2017 RUDOLPH EKNT DO Ot Y99.8 OTHER EXTERNAL CAUSE STATUS [...] /ADJ VASCULAR CATHETER 08/16/2017 RIDINGS, JIMMY C PRINTMAKER Ot 780.60 FEVER, UNSPECIFIED 08/16/2017 RIDINGS, JIMMY C PRINTMAKER Ot 786.2 COUGH 08/16/2017 RIDINGS, JIMMY C PRINTMAKER Ot 793.19 OTHER NONSPECIFIC ABNORMAL FINDING OF [...] Ot 787.20 DYSPHAGIA, UNSPECIFIED 08/16/2017 JIMMY KENT DRAFTING LAYOUT WORKER Ot 486 PNEUMONIA, ORGANISM NOS 08/16/2017 JIMMY KENT DRAFTING LAYOUT WORKER Ot 789.00 ABDOMINAL PAIN, UNSPECIFIED SITE 08/16/2017 JIMMY KENT DRAFTING LAYOUT WORKER Ot 959.6 HIP THIGH INJURY NOS 08/16/2017 JIMMY KENT DRAFTING LAYOUT WORKER Ot E000.8 OTHER EXTERNAL CAUSE STATUS 08/16/2017 [...] /ADJ VASCULAR CATHETER 12/26/2017 RIDINGS, JIMMY C PRINTMAKER Ot 780.60 FEVER, UNSPECIFIED 12/26/2017 RIDTONY, JIMMY C PRINTMAKER Ot 786.2 COUGH 12/26/2017 RIDTONY, JIMMY C PRINTMAKER Ot 793.19 OTHER NONSPECIFIC ABNORMAL FINDING OF [...] E000.8 OTHER EXTERNAL CAUSE STATUS 12/26/2017 CHA VREDUGO DO Ot E928.9 ACCIDENT NOS 12/26/2017 JUAN [...] Ot 787.20 DYSPHAGIA, UNSPECIFIED 12/26/2017 JIMMY KENT DRAFTING LAYOUT WORKER Ot 486 PNEUMONIA, ORGANISM NOS 12/26/2017 KENTJIMMY Jr DRAFTING LAYOUT WORKER Ot 789.00 ABDOMINAL PAIN, UNSPECIFIED SITE 12/26/2017 CHIP KENTRICIA Jr DRAFTING LAYOUT WORKER Ot 959.6 HIP THIGH INJURY NOS 12/26/2017 JIMMY KENT DRAFTING LAYOUT WORKER Ot E000.8 OTHER EXTERNAL CAUSE STATUS 12/26/2017 JIMMY KENT DRAFTING LAYOUT WORKER Ot E849.4 ACCID IN RECREATION AREA 12/26/2017 JIMMY KENT DRAFTING LAYOUT WORKER Ot E888.9 FALL NOS 12/26/2017 WAUSAUKEE KRISHAN, PETRA Raymond Ot 724. 5 BACKACHE NOS 12/26/2017 WAUSAUKEE PETRA NICKERSON Ot 786. 50 CHEST PAIN NOS 12/26/2017 WAUSAUKEE PETRA NICKERSON Ot 724. 1 PAIN IN THORACIC SPINE 12/26/2017 WAUSAUKEE PETRA NICKERSON Ot 786. 50 CHEST PAIN NOS 12/26/2017 RUDOLPH KENT DO Ot 414.00 CORON ATHEROSCLER NOS TYPE VESSEL, NATIV 12/26/2017 RUDOLPH KENT DO Ot 786.50 CHEST PAIN NOS 12/26/2017 RUDOLPH KETN DO Ot I25.10 ATHSCL HEART DISEASE OF [place] CORONARY 12/26/2017 RUDOLPH KENT DO Ot R07.9 CHEST PAIN, UNSPECIFIED 12/26/2017 CHA VERDUGO DO Ot R10.9 UNSPECIFIED ABDOMINAL PAIN 12/26/2017 CHA VERDUGO DO Ot Z01.818 ENCOUNTER FOR OTHER PREPROCEDURAL EXAMIN 12/26/2017 CHA VERDUGO DO Ot 553.20 VENTRAL HERNIA NOS 12/26/2017 CHA EVRDUGO DO Ot V81.5 SCREEN FOR NEPHROPATHY 12/26/2017 LUAKSZ CROWLEY APRN Ot F17.210 NICOTINE DEPENDENCE, CIGARETTES, [...] ROSA Ot I25.10 ATHSCL HEART DISEASE OF [place] CORONARY 12/26/2017 FRANDY DE [place] ROSA Ot E11.9 TYPE 2 DIABETES MELLITUS WITHOUT COMPLIC 12/26/2017 FRANDY DE [place] ROSA Ot E78.2 MIXED HYPERLIPIDEMIA 12/26/2017 FRANDY DE LA ROSA Ot I10 ESSENTIAL (PRIMARY) HYPERTENSION 12/26/2017 FRANDY DE [place] ROSA Ot I25.10 ATHSCL HEART DISEASE OF [place] CORONARY 12/26/2017 LUKASZ CROWLEY APRN Ot F17.200 [...] /ADJ VASCULAR CATHETER 02/21/2018 RIDINGS, JIMMY Ogden PRINTMAKER Ot 780.60 FEVER, UNSPECIFIED 02/21/2018 RIDINGS, JIMMY C PRINTMAKER Ot 786.2 COUGH 02/21/2018 RIDINGS, JIMMY C PRINTMAKER Ot 793.19 OTHER NONSPECIFIC ABNORMAL FINDING OF [...] Ot 787.20 DYSPHAGIA, UNSPECIFIED 02/21/2018 JIMMY KENT DRAFTING LAYOUT WORKER Ot 486 PNEUMONIA, ORGANISM NOS 02/21/2018 JIMMY KENT DRAFTING LAYOUT WORKER Ot 789.00 ABDOMINAL PAIN, UNSPECIFIED SITE 02/21/2018 JIMMY KENT DRAFTING LAYOUT WORKER Ot 959.6 HIP THIGH INJURY NOS 02/21/2018 JIMMY KENT DRAFTING LAYOUT WORKER Ot E000.8 OTHER EXTERNAL CAUSE STATUS 02/21/2018 JIMMY KENT DRAFTING LAYOUT WORKER Ot E849.4 ACCID IN RECREATION AREA 02/21/2018 JIMMY KENT DRAFTING LAYOUT WORKER Ot E888.9 FALL NOS 02/21/2018 PETRA KEARNEY [...] DO Ot I25.10 ATHSCL HEART DISEASE OF [place] CORONARY 02/21/2018 RUDOLPH KENT DO Ot R07.9 CHEST PAIN, UNSPECIFIED 02/21/2018 HCA VERDUGO DO Ot R10.9 UNSPECIFIED ABDOMINAL PAIN [...] ROSA Ot I25.10 ATHSCL HEART DISEASE OF [place] CORONARY 02/21/2018 FRANDY DE LA ROSA Ot E11.9 TYPE 2 DIABETES MELLITUS WITHOUT COMPLIC 02/21/2018 FRANDY DE LA ROSA Ot E78.2 MIXED HYPERLIPIDEMIA 02/21/2018 FRANDY DE LA ROSA Ot I10 ESSENTIAL (PRIMARY) HYPERTENSION 02/21/2018 FRANDY DE [place] ROSA Ot I25.10 ATHSCL HEART DISEASE OF [place] CORONARY 02/21/2018 LUKASZ CROWLEY APRN Ot F17.200 [...] /ADJ VASCULAR CATHETER 08/15/2018 RIDINGS, JIMMY C PRINTMAKER Ot 780.60 FEVER, UNSPECIFIED 08/15/2018 RIDINGS, JIMMY C PRINTMAKER Ot 786.2 COUGH 08/15/2018 RIDINGS, JIMMY C PRINTMAKER Ot 793.19 OTHER NONSPECIFIC ABNORMAL FINDING OF [...] MEDARDOSAUD Ot V72.84 EXAM PRE-OPERATIVE NOS 08/15/2018 ULCINA DO MEDARDOSAUD Ot V72.84 EXAM PRE-OPERATIVE NOS [...] Ot 787.20 DYSPHAGIA, UNSPECIFIED 08/15/2018 JIMMY KENT DRAFTING LAYOUT WORKER Ot 486 PNEUMONIA, ORGANISM NOS 08/15/2018 JIMMY KENT DRAFTING LAYOUT WORKER Ot 789.00 ABDOMINAL PAIN, UNSPECIFIED SITE 08/15/2018 JIMMY KENTP Ot 959.6 HIP THIGH INJURY NOS 08/15/2018 JIMMY KENT DRAFTING LAYOUT WORKER Ot E000.8 OTHER EXTERNAL CAUSE STATUS 08/15/2018 JIMMY KENT DRAFTING LAYOUT WORKER Ot E849.4 ACCID IN RECREATION AREA 08/15/2018 [...] DO Ot I25.10 ATHSCL HEART DISEASE OF [place] CORONARY 08/15/2018 RUDOLPH KENT DO Ot R07.9 [...] ROSA Ot I25.10 ATHSCL HEART DISEASE OF [place] CORONARY 08/15/2018 FRANDY DE LA ROSA Ot E11.9 TYPE 2 DIABETES MELLITUS WITHOUT COMPLIC 08/15/2018 FRANDY DE LA ROSA Ot E78.2 MIXED HYPERLIPIDEMIA 08/15/2018 FRANDY DE LA ROSA Ot I10 ESSENTIAL (PRIMARY) HYPERTENSION 08/15/2018 FRADNY DE LA ROSA Ot I25.10 ATHSCL HEART DISEASE OF [place] CORONARY 08/15/2018 LUKASZ CROWLEY APRN Ot F17.200 [...] /ADJ VASCULAR CATHETER 08/16/2018 RIDINGS, JIMMY C PRINTMAKER Ot 780.60 FEVER, UNSPECIFIED 08/16/2018 RIDINGS, JIMMY C PRINTMAKER Ot 786.2 COUGH 08/16/2018 RIDINGS, JIMMY C PRINTMAKER Ot 793.19 OTHER NONSPECIFIC ABNORMAL FINDING OF [...] Ot 787.20 DYSPHAGIA, UNSPECIFIED 08/16/2018 JIMMY KENT DRAFTING LAYOUT WORKER Ot 486 PNEUMONIA, ORGANISM NOS 08/16/2018 JIMMY KENT DRAFTING LAYOUT WORKER Ot 789.00 ABDOMINAL PAIN, UNSPECIFIED SITE 08/16/2018 JIMMY KENT DRAFTING LAYOUT WORKER Ot 959.6 HIP THIGH INJURY NOS 08/16/2018 JIMMY KENT DRAFTING LAYOUT WORKER Ot E000.8 OTHER EXTERNAL CAUSE STATUS 08/16/2018 JIMMY KENT DRAFTING LAYOUT WORKER Ot E849.4 ACCID IN RECREATION AREA 08/16/2018 JIMMY KENT DRAFTING LAYOUT WORKER Ot E888.9 FALL NOS 08/16/2018 CAIO KRISHAN, [...] DO Ot I25.10 ATHSCL HEART DISEASE OF [place] CORONARY 08/16/2018 RUDOLPH KENT DO Ot R07.9 [...] ROSA Ot I25.10 ATHSCL HEART DISEASE OF [place] CORONARY 08/16/2018 FRANDY DE LA ROSA Ot E11.9 TYPE 2 DIABETES MELLITUS WITHOUT COMPLIC 08/16/2018 FRANDY DE [place] ROSA Ot E78.2 MIXED HYPERLIPIDEMIA 08/16/2018 FRANDY DE [place] ROSA Ot I10 ESSENTIAL (PRIMARY) HYPERTENSION 08/16/2018 DORIS EVANS, FRANDY Aviles Ot I25.10 ATHSCL HEART DISEASE OF [place] CORONARY 08/16/2018 LUKASZ CROWLEY APRN Ot F17.200 [...] W19.XXXA UNSPECIFIED FALL, INITIAL ENCOUNTER 09/16/2018 MELISA DOHERYT MD Ot Z01.81 8 ENCOUNTER FOR OTHER [...] MD, Ot I25.10 ATHSCL HEART DISEASE OF [place] CORONARY 09/19/2018 MELISA DOHERTY MD, Ot I50.9 [...] BACTER 09/19/2018 MELISA DOHERTY MD, Ot Z79.4 ROLE PLAYER (CURRENT) USE OF INSULIN 09/19/2018 MELISA DOHERTY MD, Ot Z79.82 ROLE PLAYER (CURRENT) USE OF ASPIRIN 09/19/2018 MELISA DOHERTY MD, Ot Z79.84 ROLE PLAYER (CURRENT) USE OF ORAL HYPOGLYC 09/19/2018 MELISA DOHERTY MD, Ot Z79.89 9 OTHER ROLE PLAYER (CURRENT) DRUG THERAPY 09/19/2018 MELISA DOHERTY MD, [...] MD, Ot I25.10 ATHSCL HEART DISEASE OF [place] CORONARY 09/24/2018 MELISA DOHERTY MD, Ot I50.9 [...] BACTER 09/24/2018 MELISA DOHERTY MD, Ot Z79.4 JAIL (CURRENT) USE OF INSULIN 09/24/2018 MELISA DOHERTY MD, Ot Z79.82 JAIL (CURRENT) USE OF ASPIRIN 09/24/2018 MELISA DOHERTY MD, Ot Z79.84 ROLE PLAYER (CURRENT) USE OF ORAL HYPOGLYC 09/24/2018 MELISA DOHERTY MD, Ot Z79.89 9 OTHER JAIL (CURRENT) DRUG THERAPY 09/24/2018 MELISA DOHERTY MD, [...] WITHOUT 10/08/2018 MELISA DOHERTY MD Ot Z79.4 ROLE PLAYER (CURRENT) USE OF INSULIN 10/08/2018 MELISA DOHERTY MD Ot Z79.82 JAIL (CURRENT) USE OF ASPIRIN 10/08/2018 MELISA DOHERTY MD Ot Z79.89 9 OTHER JAIL (CURRENT) DRUG THERAPY 10/09/2018 MELISA DOHERTY MD [...] WITHOUT 10/09/2018 MELISA DOHERTY MD, Ot Z79.4 JAIL (CURRENT) USE OF INSULIN 10/09/2018 MELISA DOHERTY MD, Ot Z79.82 ROLE PLAYER (CURRENT) USE OF ASPIRIN 10/09/2018 MELISA DOHERTY MD, Ot Z79.89 9 OTHER ROLE PLAYER (CURRENT) DRUG THERAPY 10/11/2018 KENT RUDOLPH VILLALPANDO [...] WITHOUT 10/14/2018 MELISA DOHERTY MD Ot Z79.4 ROLE PLAYER (CURRENT) USE OF INSULIN 10/14/2018 MELISA DOHERTY MD Ot Z79.82 JAIL (CURRENT) USE OF ASPIRIN 10/14/2018 MELISA DOHERTY MD Ot Z79.89 9 OTHER ROLE PLAYER (CURRENT) DRUG THERAPY 10/15/2018 MELISA DOHERTY MD, [...] WITHOUT 10/15/2018 MELISA DOHERTY MD, Ot Z79.4 JAIL (CURRENT) USE OF INSULIN 10/15/2018 MELISA DOHERTY MD, Ot Z79.82 ROLE PLAYER (CURRENT) USE OF ASPIRIN 10/15/2018 MELISA DOHERTY MD, Ot Z79.89 9 OTHER ROLE PLAYER (CURRENT) DRUG THERAPY 10/15/2018 RUDOLPH EKNT DO, Ot M25.78 OSTEOPHYTE, VERTEBRAE 10/15/2018 RUDOLPH [...] 09 OTHER FORMS OF DYSPNEA 03/14/2019 JUAN LIOCNA MD Ot R07. 89 OTHER CHEST PAIN 03/19/2019 JUAN LICONA MD Ot E11. 51 TYPE 2 DIABETES W DIABETIC PERIPHERAL AN 03/19/2019 JUAN LICONA MD Ot E53. 8 DEFICIENCY OF OTHER SPECIFIED B GROUP 03/19/2019 JUAN LICONA MD Ot E78. 2 MIXED HYPERLIPIDEMIA 03/19/2019 JUAN LICOAN MD Ot F17.210 NICOTINE DEPENDENCE, CIGARETTES, UNCOMPL 03/19/2019 JUAN LICONA MD Ot F32. 9 MAJOR DEPRESSIVE DISORDER, SINGLE EPISOD 03/19/2019 JUAN LICONA MD Ot G89. 29 OTHER CHRONIC PAIN 03/19/2019 JUAN LICONA MD Ot I10 ESSENTIAL (PRIMARY) HYPERTENSION 03/19/2019 JUAN LICONA MD Ot I25. 10 ATHSCL HEART DISEASE OF [place] CORONARY 03/19/2019 JUAN LICONA MD Ot I65. [...] 03/19/2019 JUAN LICONA MD, Ot Z79. 4 JAIL (CURRENT) USE OF INSULIN 03/19/2019 JUAN LICONA MD Ot Z79. 82 JAIL (CURRENT) USE OF ASPIRIN 03/19/2019 JUAN LICONA MD, Ot Z79.899 OTHER JAIL (CURRENT) DRUG THERAPY 03/19/2019 JUAN LICONA MD, [...] Ot I25. 10 ATHSCL HEART DISEASE OF [place] CORONARY 03/20/2019 JUAN LICONA MD Ot I65. [...] ABNORMAL RESULT OF OTHER CARDIOVASCULAR 03/20/2019 JUAN LICNOA MD, Ot Z79. 4 ROLE PLAYER (CURRENT) USE OF INSULIN 03/20/2019 JUAN LICONA MD Ot Z79. 82 ROLE PLAYER (CURRENT) USE OF ASPIRIN 03/20/2019 JUAN LICONA MD, Ot Z79.899 OTHER ROLE PLAYER (CURRENT) DRUG THERAPY 03/20/2019 JUAN LICONA MD, [...] Ot I25. 10 ATHSCL HEART DISEASE OF [place] CORONARY 03/25/2019 JUAN LICONA MD Ot I65. [...] 03/25/2019 JUAN LICONA MD, Ot Z79. 4 ROLE PLAYER (CURRENT) USE OF INSULIN 03/25/2019 JUAN LICONA MD, Ot Z79. 82 JAIL (CURRENT) USE OF ASPIRIN 03/25/2019 JUAN LICONA MD, Ot Z79.899 OTHER ROLE PLAYER (CURRENT) DRUG THERAPY 03/25/2019 JUAN LICONA MD, [...] HISTORY OF NICOTINE DEPENDENCE 05/07/2019 LUKASZ CROWLEY PRINTMAKER Ot F12.10 CANNABIS ABUSE, UNCOMPLICATED 05/07/2019 LUKASZ CROWLEY PRINTMAKER Ot F17.210 NICOTINE DEPENDENCE, CIGARETTES, UNCOMPL 05/07/2019 LUKASZ CROWLEY PRINTMAKER Ot G47.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 05/07/2019 LUKASZ CROWLEY PRINTMAKER Ot J18.1 LOBAR PNEUMONIA, UNSPECIFIED ORGANISM 05/07/2019 LUKASZ CROWLEY PRINTMAKER Ot J30.9 ALLERGIC RHINITIS, UNSPECIFIED 05/07/2019 LUKASZ CROWLEY PRINTMAKER Ot J44.9 CHRONIC OBSTRUCTIVE PULMONARY DISEASE, U 05/07/2019 LUKASZ CROWLEY APRN Ot Z12.2 ENCNTR SCREEN FOR MALIGNANT NEOPLASM OF 05/07/2019 LUKASZ CROWLEY PRINTMAKER Ot Z99.81 DEPENDENCE ON SUPPLEMENTAL OXYGEN 05/08/2019 RUDOLPH KENT DO Ot Z45.2 ENCOUNTER FOR ADJUSTMENT AND MANAGEMENT 05/13/2019 RUDOLPH KENT DO Ot Z45.2 ENCOUNTER FOR ADJUSTMENT AND MANAGEMENT 05/15/2019 RUDOLPH KENT DO Ot Z45.2 ENCOUNTER FOR ADJUSTMENT AND MANAGEMENT 06/03/2019 LUKASZ CROWLEY APRN Ot F12.10 CANNABIS ABUSE, UNCOMPLICATED 06/03/2019 LUKASZ CROWLEY PRINTMAKER Ot F17.210 NICOTINE DEPENDENCE, CIGARETTES, UNCOMPL 06/03/2019 LUKASZ CROWLEY PRINTMAKER Ot G47.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 06/03/2019 LUKASZ CROWLEY PRINTMAKER Ot J18.1 LOBAR PNEUMONIA, UNSPECIFIED ORGANISM 06/03/2019 LUKASZ CROWLEY PRINTMAKER Ot J30.9 ALLERGIC RHINITIS, UNSPECIFIED 06/03/2019 LUKASZ CROWLEY PRINTMAKER Ot J44.9 CHRONIC OBSTRUCTIVE PULMONARY DISEASE, U 06/03/2019 LUKASZ CROWLEY PRINTMAKER Ot Z12.2 ENCNTR SCREEN FOR MALIGNANT NEOPLASM [...] Ot 787.20 DYSPHAGIA, UNSPECIFIED 06/05/2019 JIMMY KENT DRAFTING LAYOUT WORKER Ot 486 PNEUMONIA, ORGANISM NOS 06/05/2019 JIMMY KENT DRAFTING LAYOUT WORKER Ot 789.00 ABDOMINAL PAIN, UNSPECIFIED SITE 06/05/2019 JIMMY KENT DRAFTING LAYOUT WORKER Ot 959.6 HIP THIGH INJURY NOS 06/05/2019 JIMMY KENT DRAFTING LAYOUT WORKER Ot E000.8 OTHER EXTERNAL CAUSE STATUS 06/05/2019 JIMMY KENT DRAFTING LAYOUT WORKER Ot E849.4 ACCID IN RECREATION AREA 06/05/2019 JIMMY KENT DRAFTING LAYOUT WORKER Ot E888.9 FALL NOS 06/05/2019 PETRA KEARNEY [...] DO Ot I25.10 ATHSCL HEART DISEASE OF [place] CORONARY 06/05/2019 RUDOLPH KENT DO Ot R07.9 [...] ROSA Ot I25.10 ATHSCL HEART DISEASE OF [place] CORONARY 06/05/2019 FRANDY DE LA ROSA Ot E11.9 TYPE 2 DIABETES MELLITUS WITHOUT COMPLIC 06/05/2019 FRANDY DE LA ROSA Ot E78.2 MIXED HYPERLIPIDEMIA 06/05/2019 FRANDY DE LA ROSA Ot I10 ESSENTIAL (PRIMARY) HYPERTENSION 06/05/2019 FRANDY DE LA ROSA Ot I25.10 ATHSCL HEART DISEASE OF [place] CORONARY 06/05/2019 LUKASZ CROWLEY APRN Ot F17.200 [...] UNSPECIFIED 06/05/2019 RUDOLPH KENT DO, Ot M85.852 [facility] DISRD OF BONE DENSITY AND STRUCTURE, 06/05/2019 [...] 89 OTHER CHEST PAIN 06/05/2019 LUKASZ CROWLEY PRINTMAKER Ot F12.10 CANNABIS ABUSE, UNCOMPLICATED 06/05/2019 LUKASZ CROWLEY PRINTMAKER Ot F17.210 NICOTINE DEPENDENCE, CIGARETTES, UNCOMPL 06/05/2019 LUKASZ CROWLEY APRN Ot G47.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 06/05/2019 LUKASZ CROWLEY PRINTMAKER Ot J18.1 LOBAR PNEUMONIA, UNSPECIFIED ORGANISM 06/05/2019 LUKASZ CROWLEY APRN Ot J30.9 ALLERGIC RHINITIS, UNSPECIFIED 06/05/2019 LUKASZ CROWLEY PRINTMAKER Ot J44.9 CHRONIC OBSTRUCTIVE PULMONARY DISEASE, U 06/05/2019 LUKASZ CROWLEY APRN Ot Z12.2 ENCNTR SCREEN FOR MALIGNANT NEOPLASM OF 06/05/2019 LUKASZ CROWLEY APRN Ot Z99.81 DEPENDENCE ON SUPPLEMENTAL OXYGEN 06/05/2019 RUDOLPH KENT DO Ot Z45.2 ENCOUNTER FOR ADJUSTMENT AND MANAGEMENT 06/05/2019 RUDOLPH KENT DO Ot Z45.2 ENCOUNTER FOR ADJUSTMENT AND MANAGEMENT 06/25/2019 LUKASZ CROWLEY PRINTMAKER Ot F12.10 CANNABIS ABUSE, UNCOMPLICATED 06/25/2019 LUKASZ CROWLEY APRN Ot F17.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, UNSPECIFIED, UNCOMP 06/25/2019 LUKASZ CROWLEY PRINTMAKER Ot G47.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 82 ROLE PLAYER (CURRENT) USE OF ASPIRIN 06/25/2019 QING TAO DO Ot Z79. 84 JAIL (CURRENT) USE OF ORAL HYPOGLYC 06/25/2019 QING TAO DO, Ot Z79.899 OTHER JAIL (CURRENT) DRUG THERAPY 06/25/2019 QING TAO DO [...] 07/02/2019 QING TAO DO Ot Z79. 82 JAIL (CURRENT) USE OF ASPIRIN 07/02/2019 AISLINN DO QING Morales Ot Z79. 84 JAIL (CURRENT) USE OF ORAL HYPOGLYC 07/02/2019 QING TAO DO Ot Z79.899 OTHER ROLE PLAYER (CURRENT) DRUG THERAPY 07/02/2019 QING TAO DO [...] Ot J42 UNSPECIFIED CHRONIC BRONCHITIS 07/08/2019 LUKASZ CRWOLEY APRN Ot J44.9 CHRONIC OBSTRUCTIVE PULMONARY DISEASE, [...] Ot 787.20 DYSPHAGIA, UNSPECIFIED 07/16/2019 JIMMY KENT DRAFTING LAYOUT WORKER Ot 486 PNEUMONIA, ORGANISM NOS 07/16/2019 JIMMY KENT DRAFTING LAYOUT WORKER Ot 789.00 ABDOMINAL PAIN, UNSPECIFIED SITE 07/16/2019 JIMMY KENT DRAFTING LAYOUT WORKER Ot 959.6 HIP THIGH INJURY NOS 07/16/2019 JIMMY KENT DRAFTING LAYOUT WORKER Ot E000.8 OTHER EXTERNAL CAUSE STATUS 07/16/2019 JIMMY KENT DRAFTING LAYOUT WORKER Ot E849.4 ACCID IN RECREATION AREA 07/16/2019 [...] 10/25/2019 LUKAS NUNES MD Ot Z79. 4 ROLE PLAYER (CURRENT) USE OF INSULIN 10/25/2019 LUKAS NUNES MD Ot Z79. 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, CERVICOTHORACIC REGIO 11/06/2019 SARAH ROBERTSON Ot M48.02 SPINAL STENOSIS, CERVICAL REGION 11/06/2019 SARAH ROBERTSON Ot M50.11 CERV DISC DISORDER WITH RADICULOPATHY, H 11/06/2019 SARAH ROBERSTON Ot M50.121 CERVICAL DISC DISORDER AT C4-C5 [...] MD, Ot I25.10 ATHSCL HEART DISEASE OF [place] CORONARY 12/10/2019 RAY MACKEY MD, Ot I50.9 HEART FAILURE, UNSPECIFIED 12/10/2019 RAY MACKEY MD, Ot J44.9 CHRONIC OBSTRUCTIVE PULMONARY DISEASE, U 12/10/2019 RAY MACKEY MD, Ot M79.7 FIBROMYALGIA 12/10/2019 RAY MACKEY MD, Ot Z68.30 BODY MASS INDEX (BMI) 30.0-30.9, ADULT 12/10/2019 RAY MACKEY MD, Ot Z79.82 ROLE PLAYER (CURRENT) USE OF ASPIRIN 12/10/2019 RAY MACKEY MD, Ot Z79.84 JAIL (CURRENT) USE OF ORAL HYPOGLYC 12/10/2019 RAY MACKEY MD, Ot Z79.899 OTHER ROLE PLAYER (CURRENT) DRUG THERAPY 12/10/2019 RAY MACKEY MD, Ot Z82.49 FAMILY HX OF [place] HEART DIS AND OTH DI 12/10/2019 RAY MACKEY MD, Ot Z83.3 FAMILY HISTORY OF DIABETES MELLITUS 12/10/2019 RAY MACKEY MD, Ot Z88.8 ALLERGY STATUS TO [facility] DRUG/MEDS/BIOL SUB 12/10/2019 RAY MACKEY MD, Ot [...] MD, Ot I25.10 ATHSCL HEART DISEASE OF [place] CORONARY 12/12/2019 RAY MACKEY MD, Ot I50.9 HEART FAILURE, UNSPECIFIED 12/12/2019 RAY MACKEY MD, Ot J44.9 CHRONIC OBSTRUCTIVE PULMONARY DISEASE, U 12/12/2019 RAY MACKEY MD, Ot M79.7 FIBROMYALGIA 12/12/2019 RAY MACKEY MD, Ot Z68.30 BODY MASS INDEX (BMI) 30.0-30.9, ADULT 12/12/2019 RAY MACKEY MD, Ot Z79.82 JAIL (CURRENT) USE OF ASPIRIN 12/12/2019 RAY MACKEY MD, Ot Z79.84 JAIL (CURRENT) USE OF ORAL HYPOGLYC 12/12/2019 RAY MACKEY MD, Ot Z79.899 OTHER JAIL (CURRENT) DRUG THERAPY 12/12/2019 RAY MACKEY MD, Ot Z82.49 FAMILY HX OF [place] HEART DIS AND OTH DI 12/12/2019 RAY MACKEY MD, Ot Z83.3 FAMILY HISTORY OF DIABETES MELLITUS 12/12/2019 RAY MACKEY MD, Ot Z88.8 ALLERGY STATUS TO [facility] DRUG/MEDS/BIOL SUB 12/12/2019 RAY MACKEY MD, Ot [...] MD, Ot I25.10 ATHSCL HEART DISEASE OF [place] CORONARY 12/15/2019 RAY MACKEY MD, Ot I50.9 HEART FAILURE, UNSPECIFIED 12/15/2019 RAY MACKEY MD, Ot J44.9 CHRONIC OBSTRUCTIVE PULMONARY DISEASE, U 12/15/2019 RAY MACKEY MD, Ot M79.7 FIBROMYALGIA 12/15/2019 RAY MACKEY MD, Ot Z68.30 BODY MASS INDEX (BMI) 30.0-30.9, ADULT 12/15/2019 RAY MACKEY MD, Ot Z79.82 ROLE PLAYER (CURRENT) USE OF ASPIRIN 12/15/2019 RAY MACKEY MD, Ot Z79.84 ROLE PLAYER (CURRENT) USE OF ORAL HYPOGLYC 12/15/2019 RAY MACKEY MD, Ot Z79.899 OTHER ROLE PLAYER (CURRENT) DRUG THERAPY 12/15/2019 RAY MACKEY MD, [...] OTHER EXTERNAL CAUSE STATUS 12/22/2019 LUCINA DO [facility] Ot E928.9 ACCIDENT NOS 12/22/2019 LIVAN ALEXANDRE, [...] Ot 355. 5 TARSAL TUNNEL SYNDROME 12/22/2019 [facility] Ot V72.84 EXAM PRE-OPERATIVE NOS 12/22/[address] [facility]10 ESOPHAGITIS NOS 12/22/2019 [facility] Ot 553.3 DIAPHRAGMATIC HERNIA 12/22/2019 [facility] Ot 787.20 DYSPHAGIA, UNSPECIFIED 12/22/2019 JIMMY KENT DRAFTING LAYOUT WORKER Ot 486 PNEUMONIA, ORGANISM NOS 12/22/2019 JIMMY KENT DRAFTING LAYOUT WORKER Ot 789.00 ABDOMINAL PAIN, UNSPECIFIED SITE 12/22/2019 JIMMY KENT DRAFTING LAYOUT WORKER Ot 959.6 HIP THIGH INJURY NOS 12/22/2019 JIMMY KENT DRAFTING LAYOUT WORKER Ot E000.8 OTHER EXTERNAL CAUSE STATUS 12/22/2019 JIMMY KENT JOSE Ot E849.4 ACCID IN RECREATION AREA 12/22/2019 JIMMY KENT JOSE Ot E888.9 FALL NOS 12/22/2019 [place] DC, PETRA Raymond Ot 724. 5 BACKACHE NOS 12/22/2019 [place] DC, PETRA Raymond Ot 786. 50 CHEST PAIN NOS 12/22/2019 [place] DC, PETRA Raymond Ot 724. 1 PAIN IN THORACIC SPINE 12/22/2019 [place] DC, PETRA Raymond Ot 786. 50 CHEST PAIN NOS 12/22/2019 [place] DO, RUDOLPH Raymond Ot 414.00 CORON ATHEROSCLER NOS TYPE VESSEL, NATIV 12/22/2019 KENT DO, RUDOLPH Raymond Ot 786.50 CHEST PAIN NOS 12/22/2019 KENT DO, RUDOLPH Raymond Ot I25.10 ATHSCL HEART DISEASE OF [place] CORONARY 12/22/2019 KENT DO, RUDOLPH Raymond Ot R07.9 CHEST PAIN, UNSPECIFIED 12/22/2019 [facility] DO, CHA Ot R10.9 UNSPECIFIED ABDOMINAL PAIN 12/22/2019 [facility] DO, CHA Ot Z01.818 ENCOUNTER FOR OTHER PREPROCEDURAL EXAMIN 12/22/2019 LUCINA , CHA Ot 553.20 VENTRAL HERNIA NOS 12/22/2019 [facility], CHA Ot V81.5 SCREEN FOR NEPHROPATHY [...] ROSA Ot I25.10 ATHSCL HEART DISEASE OF [place] CORONARY 12/22/2019 FRANDY DE LA ROSA Ot E11.9 TYPE 2 DIABETES MELLITUS WITHOUT COMPLIC 12/22/2019 FRANDY DE LA ROSA Ot E78.2 MIXED HYPERLIPIDEMIA 12/22/2019 FRANDY DE LA ROSA Ot I10 ESSENTIAL (PRIMARY) HYPERTENSION 12/22/2019 FRANDY DE [place] ROSA Ot I25.10 ATHSCL HEART DISEASE OF [place] CORONARY 12/22/2019 LUKASZ CROWLEY APRN Ot F17.200 [...] Ot W19.XXXA UNSPECIFIED FALL, INITIAL ENCOUNTER 12/22/2019 RUODLPH KENT DO, Ot F09 UNSP MENTAL DISORDER [...] ALLERGIC RHINITIS, UNSPECIFIED 12/22/2019 CARLINE, LUKASZ E PRINTMAKER Ot J42 UNSPECIFIED CHRONIC BRONCHITIS 12/22/2019 LUKASZ CROWLEY PRINTMAKER Ot J44.9 CHRONIC OBSTRUCTIVE PULMONARY DISEASE, U 12/22/2019 LUKASZ CROWLEY PRINTMAKER Ot Z99.81 DEPENDENCE ON SUPPLEMENTAL OXYGEN 12/22/2019 LUKASZ CROWLEY PRINTMAKER Ot F12.10 CANNABIS ABUSE, UNCOMPLICATED 12/22/2019 LUKASZ CROWLEY PRINTMAKER Ot F17.210 NICOTINE DEPENDENCE, CIGARETTES, UNCOMPL 12/22/2019 LUKASZ CROWLEY PRINTMAKER Ot G47.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 12/22/2019 LUKASZ CROWLEY PRINTMAKER Ot J18.1 LOBAR PNEUMONIA, UNSPECIFIED ORGANISM 12/22/2019 LUKASZ CROWLEY APRN Ot J30.9 ALLERGIC RHINITIS, UNSPECIFIED 12/22/2019 LUKASZ CROWLEY PRINTMAKER Ot J44.9 CHRONIC OBSTRUCTIVE PULMONARY DISEASE, U 12/22/2019 LUKASZ CROWLEY PRINTMAKER Ot Z12.2 ENCNTR SCREEN FOR MALIGNANT NEOPLASM OF 12/22/2019 LUKASZ CROWLEY PRINTMAKER Ot Z99.81 DEPENDENCE ON SUPPLEMENTAL OXYGEN 12/22/2019 [...] Ot 787.20 DYSPHAGIA, UNSPECIFIED 12/22/2019 JIMMY KENT DRAFTING LAYOUT WORKER Ot 486 PNEUMONIA, ORGANISM NOS 12/22/2019 JIMMY KENT DRAFTING LAYOUT WORKER Ot 789.00 ABDOMINAL PAIN, UNSPECIFIED SITE 12/22/2019 JMIMY KENT DRAFTING LAYOUT WORKER Ot 959.6 HIP THIGH INJURY NOS 12/22/2019 JIMMY KENT DRAFTING LAYOUT WORKER Ot E000.8 OTHER EXTERNAL CAUSE STATUS 12/22/2019 JIMMY KENT DRAFTING LAYOUT WORKER Ot E849.4 ACCID IN RECREATION AREA 12/22/2019 KENTJIMMY DRAFTING LAYOUT WORKER Ot E888.9 FALL NOS 12/22/2019 [place] DC, PETRA Raymond Ot 724. 5 BACKACHE NOS 12/22/2019 [place] DC, PETRA Raymond Ot 786. 50 CHEST PAIN NOS 12/22/2019 [place] DC, PETRA Raymond Ot 724. 1 PAIN IN THORACIC SPINE 12/22/2019 [facility], PETRA Raymond Ot 786. 50 CHEST PAIN NOS 12/22/2019 [place] DO, RUDOLPH Raymond Ot 414.00 CORON ATHEROSCLER NOS TYPE VESSEL, NATIV 12/22/2019 KENT DO, RUDOLPH Raymond Ot 786.50 CHEST PAIN NOS 12/22/2019 KENT DO, RUDOLPH Raymond Ot I25.10 ATHSCL HEART DISEASE OF [place] CORONARY 12/22/2019 KENT DO, RUDOLPH Raymond Ot R07.9 CHEST PAIN, UNSPECIFIED 12/22/2019 [facility] DO, CHA Ot R10.9 UNSPECIFIED ABDOMINAL PAIN 12/22/2019 [facility] DO, CHA Ot Z01.818 ENCOUNTER FOR OTHER PREPROCEDURAL EXAMIN 12/22/2019 [facility] DO, CHA Ot 553.20 VENTRAL HERNIA NOS 12/22/2019 [facility] DO, CHA Ot V81.5 SCREEN FOR NEPHROPATHY [...] ROSA Ot I25.10 ATHSCL HEART DISEASE OF [place] CORONARY 12/22/2019 FRANDY DE LA ROSA Ot E11.9 TYPE 2 DIABETES MELLITUS WITHOUT COMPLIC 12/22/2019 FRANDY DE LA ROSA Ot E78.2 MIXED HYPERLIPIDEMIA 12/22/2019 FRANDY DE LA ROSA Ot I10 ESSENTIAL (PRIMARY) HYPERTENSION 12/22/2019 FRANDY DE LA ROSA Ot I25.10 ATHSCL HEART DISEASE OF [place] CORONARY 12/22/2019 LUKASZ CROWLEY APRN Ot F17.200 [...] DEPENDENCE ON SUPPLEMENTAL OXYGEN 12/22/2019 LUKASZ CROWLEY PRINTMAKER Ot F12.10 CANNABIS ABUSE, UNCOMPLICATED 12/22/2019 LUKASZ CROWLEY PRINTMAKER Ot F17.210 NICOTINE DEPENDENCE, CIGARETTES, UNCOMPL 12/22/2019 LUKASZ CROWLEY APRN Ot G47.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 12/22/2019 LUKASZ CROWLEY APRN Ot J18.1 LOBAR PNEUMONIA, UNSPECIFIED ORGANISM 12/22/2019 LUKASZ CROWLEY APRN Ot J30.9 ALLERGIC RHINITIS, UNSPECIFIED 12/22/2019 LUKASZ CROWLEY APRN Ot J44.9 CHRONIC OBSTRUCTIVE PULMONARY DISEASE, U 12/22/2019 LUAKSZ CROWLEY APRN Ot Z12.2 ENCNTR SCREEN FOR [...] Ot 787.20 DYSPHAGIA, UNSPECIFIED 01/17/2020 JIMMY KENT DRAFTING LAYOUT WORKER Ot 486 PNEUMONIA, ORGANISM NOS 01/17/2020 JIMMY KENT DRAFTING LAYOUT WORKER Ot 789.00 ABDOMINAL PAIN, UNSPECIFIED SITE 01/17/2020 JIMMY KENT DRAFTING LAYOUT WORKER Ot 959.6 HIP THIGH INJURY NOS 01/17/2020 JIMMY KENT DRAFTING LAYOUT WORKER Ot E000.8 OTHER EXTERNAL CAUSE STATUS 01/17/2020 JIMMY KENT DRAFTING LAYOUT WORKER Ot E849.4 ACCID IN RECREATION AREA 01/17/2020 JIMMY KENT DRAFTING LAYOUT WORKER Ot E888.9 FALL NOS 01/17/2020 PETRA KEARNEY DC Ot 724. 5 BACKACHE NOS 01/17/2020 [place], PETRA Raymond Ot 786. 50 CHEST PAIN NOS 01/17/2020 [place] DC, PETRA Raymond Ot 724. 1 PAIN IN THORACIC SPINE 01/17/2020 [place], PETRA Raymond Ot 786. 50 CHEST PAIN NOS 01/17/2020 KENT DO, RUDOLPH Raymond Ot 414.00 CORON ATHEROSCLER NOS TYPE VESSEL, NATIV 01/17/2020 KENT DO, RUDOLPH Raymond Ot 786.50 CHEST PAIN NOS 01/17/2020 KENT DO, RUDOLPH Raymond Ot I25.10 ATHSCL HEART DISEASE OF [place] CORONARY 01/17/2020 KENT DO, RUDOLPH Raymond Ot R07.9 CHEST PAIN, UNSPECIFIED 01/17/2020 [facility] DO, CHA Ot R10.9 UNSPECIFIED ABDOMINAL PAIN 01/17/2020 [facility] DO, CHA Ot Z01.818 ENCOUNTER FOR OTHER PREPROCEDURAL EXAMIN 01/17/2020 LUCINA VILLALPANDO, CHA Ot 553.20 VENTRAL HERNIA NOS 01/17/2020 [facility] DO, CHA Ot V81.5 SCREEN FOR NEPHROPATHY [...] ROSA Ot I25.10 ATHSCL HEART DISEASE OF [place] CORONARY 01/17/2020 FRANDY DE LA ROSA Ot E11.9 TYPE 2 DIABETES MELLITUS WITHOUT COMPLIC 01/17/2020 FRANDY DE LA ROSA Ot E78.2 MIXED HYPERLIPIDEMIA 01/17/2020 FRANDY DE LA ROSA Ot I10 ESSENTIAL (PRIMARY) HYPERTENSION 01/17/2020 FRANDY DE [place] ROSA Ot I25.10 ATHSCL HEART DISEASE OF [place] CORONARY 01/17/2020 LUKASZ CROWLEY APRN Ot F17.200 [...] Ot M40.209 UNSPECIFIED KYPHOSIS, SITE UNSPECIFIED 01/17/2020 RUDOPLH KENT DO, Ot M85.852 OT DISRD OF BONE DENSITY AND STRUCTURE, 01/17/2020 RUDOLPH KENT DO, Ot Z78.0 ASYMPTOMATIC MENOPAUSAL STATE 01/17/2020 EARNESTINE ALEXANDRE, RAY Davis Ot L98 .9 DISORDER OF THE SKIN AND SUBCUTANEOUS TI 01/17/2020 RUDOLPH EKNT DO, Ot M77.32 CALCANEAL SPUR, LEFT FOOT [...] Ot Z99.81 DEPENDENCE ON SUPPLEMENTAL OXYGEN 01/17/2020 LUKAZS CROWLEY APRN Ot F12.10 CANNABIS ABUSE, UNCOMPLICATED 01/17/2020 LUKASZ CROWLEY APRN Ot F17.210 NICOTINE DEPENDENCE, CIGARETTES, UNCOMPL 01/17/2020 LUKASZ CROWLEY APRN Ot G47.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 01/17/2020 LUKASZ CROWLEY PRINTMAKER Ot J18.1 LOBAR PNEUMONIA, UNSPECIFIED ORGANISM 01/17/2020 [...] Ot 787.20 DYSPHAGIA, UNSPECIFIED 01/17/2020 JIMMY KENT DRAFTING LAYOUT WORKER Ot 486 PNEUMONIA, ORGANISM NOS 01/17/2020 JIMMY KENT DRAFTING LAYOUT WORKER Ot 789.00 ABDOMINAL PAIN, UNSPECIFIED SITE 01/17/2020 JIMMY KENT DRAFTING LAYOUT WORKER Ot 959.6 HIP THIGH INJURY NOS 01/17/2020 JIMMY KENT DRAFTING LAYOUT WORKER Ot E000.8 OTHER EXTERNAL CAUSE STATUS 01/17/2020 JIMMY KENT DRAFTING LAYOUT WORKER Ot E849.4 ACCID IN RECREATION AREA 01/17/2020 JIMMY KENT DRAFTING LAYOUT WORKER Ot E888.9 FALL NOS 01/17/2020 CAIO DC, [...] Raymond Ot I25.10 ATHSCL HEART DISEASE OF [place] CORONARY 01/17/2020 KENT DO, RUDOLPH Raymond Ot R07.9 CHEST PAIN, UNSPECIFIED 01/17/2020 LUCINA DO, MEDARDOROUTIE Ot R10.9 UNSPECIFIED ABDOMINAL PAIN 01/17/2020 LUCINA DO, DIANNTIE Ot Z01.818 ENCOUNTER FOR OTHER PREPROCEDURAL EXAMIN 01/17/2020 LUCINA DO, CHA Ot 553.20 VENTRAL HERNIA NOS 01/17/2020 [facility] DO, CHA Ot V81.5 SCREEN FOR NEPHROPATHY [...] ROSA Ot I25.10 ATHSCL HEART DISEASE OF [place] CORONARY 01/17/2020 FRANDY DE LA ROSA Ot E11.9 TYPE 2 DIABETES MELLITUS WITHOUT COMPLIC 01/17/2020 FRANDY DE LA ROSA Ot E78.2 MIXED HYPERLIPIDEMIA 01/17/2020 FRANDY DE LA ROSA Ot I10 ESSENTIAL (PRIMARY) HYPERTENSION 01/17/2020 FRANDY DE [place] ROSA Ot I25.10 ATHSCL HEART DISEASE OF [place] CORONARY 01/17/2020 LUKASZ CROWLEY APRN Ot F17.200 [...] R07. 89 OTHER CHEST PAIN 01/17/2020 LIVAN ALEXADNRE, JUAN Raymond Ot E11. 51 TYPE 2 DIABETES W DIABETIC PERIPHERAL AN 01/17/2020 LIVAN ALEXANDRE, JUAN Raymond Ot E78. 2 MIXED HYPERLIPIDEMIA 01/17/2020 LIVAN ALEXANDRE, JUAN Raymodn Ot R06. 09 OTHER FORMS OF DYSPNEA 01/17/2020 LIVAN ALEXANDRE, JUAN Raymond Ot R07. 89 OTHER CHEST PAIN 01/17/2020 LUKASZ CROWLEY APRN Ot F12.10 CANNABIS ABUSE, UNCOMPLICATED 01/17/2020 LUKASZ CROWLEY PRINTMAKER Ot F17.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, UNSPECIFIED, UNCOMP 01/17/2020 LUKASZ CROWLEY PRINTMAKER Ot G47.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 01/17/2020 LUKASZ CROWLEY APRN Ot J30.9 ALLERGIC RHINITIS, UNSPECIFIED 01/17/2020 LUKASZ CROWLEY PRINTMAKER Ot J42 UNSPECIFIED CHRONIC BRONCHITIS 01/17/2020 LUKASZ CROWLEY APRN Ot J44.9 CHRONIC OBSTRUCTIVE PULMONARY DISEASE, U 01/17/2020 LUKASZ CROWLEY PRINTMAKER Ot Z99.81 DEPENDENCE ON SUPPLEMENTAL OXYGEN 01/17/2020 LUKASZ CROWLEY PRINTMAKER Ot F12.10 CANNABIS ABUSE, UNCOMPLICATED 01/17/2020 LUKASZ CROWLEY PRINTMAKER Ot F17.210 NICOTINE DEPENDENCE, CIGARETTES, UNCOMPL 01/17/2020 [...] Ot 787.20 DYSPHAGIA, UNSPECIFIED 01/17/2020 JIMMY KENT DRAFTING LAYOUT WORKER Ot 486 PNEUMONIA, ORGANISM NOS 01/17/2020 JIMMY KENT DRAFTING LAYOUT WORKER Ot 789.00 ABDOMINAL PAIN, UNSPECIFIED SITE 01/17/2020 JIMMY KENT DRAFTING LAYOUT WORKER Ot 959.6 HIP THIGH INJURY NOS 01/17/2020 JIMMY KENT DRAFTING LAYOUT WORKER Ot E000.8 OTHER EXTERNAL CAUSE STATUS 01/17/2020 JIMMY KENT DRAFTING LAYOUT WORKER Ot E849.4 ACCID IN RECREATION AREA 01/17/2020 JIMMY KENT DRAFTING LAYOUT WORKER Ot E888.9 FALL NOS 01/17/2020 CAIO NICKERSON, PETRA Raymond Ot 724. 5 BACKACHE NOS 01/17/2020 PETRA KEARNEY DC Ot 786. 50 CHEST PAIN NOS 01/17/2020 PETRA KEARNEY DC Ot 724. 1 PAIN IN THORACIC SPINE 01/17/2020 PETRA KEARNEY DC Ot 786. 50 CHEST PAIN NOS 01/17/2020 RUDOLPH KENT DO Ot 414.00 CORON ATHEROSCLER NOS TYPE VESSEL, NATIV 01/17/2020 [facility], RUDOLPH Raymond Ot 786.50 CHEST PAIN NOS 01/17/2020 [place] , RUDOLPH Raymond Ot I25.10 ATHSCL HEART DISEASE OF [place] CORONARY 01/17/2020 KENT , RUDOLPH Raymond Ot R07.9 CHEST PAIN, UNSPECIFIED 01/17/2020 [facility], CHA Ot R10.9 UNSPECIFIED ABDOMINAL PAIN 01/17/2020 [facility], CHA Ot Z01.818 ENCOUNTER FOR OTHER PREPROCEDURAL EXAMIN 01/17/2020 [facility], CHA Ot 553.20 VENTRAL HERNIA NOS 01/17/2020 [facility], CHA Ot V81.5 SCREEN FOR NEPHROPATHY [...] ROSA Ot I25.10 ATHSCL HEART DISEASE OF [place] CORONARY 01/17/2020 FRANDY DE LA ROSA Ot E11.9 TYPE 2 DIABETES MELLITUS WITHOUT COMPLIC 01/17/2020 FRANDY DE [place] ROSA Ot E78.2 MIXED HYPERLIPIDEMIA 01/17/2020 FRANDY DE LA ROSA Ot I10 ESSENTIAL (PRIMARY) HYPERTENSION 01/17/2020 FRANDY DE [place] ROSA Ot I25.10 ATHSCL HEART DISEASE OF [place] CORONARY 01/17/2020 LUKASZ CROWLEY APRN Ot F17.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, UNSPECIFIED, UNCOMP 01/17/2020 LUKASZ CROWLEY APRN Ot J44.9 CHRONIC OBSTRUCTIVE PULMONARY DISEASE, U 01/17/2020 [facility] M94.8X6 OTHER SPECIFIED DISORDERS OF [place], [...] M46.86 OTHER SPECIFIED INFLAMMATORY SPONDYLOPAT 01/17/2020 YOLI VILLALPANDO, RUDOLPH Raymond Ot M47.27 OTHER [...] 89 OTHER CHEST PAIN 01/17/2020 LUKASZ CROWLEY PRINTMAKER Ot F12.10 CANNABIS ABUSE, UNCOMPLICATED 01/17/2020 LUKASZ CROWLEY PRINTMAKER Ot F17.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, UNSPECIFIED, UNCOMP 01/17/2020 LUKASZ CROWLEY PRINTMAKER Ot G47.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 01/17/2020 LUKASZ CROWLEY PRINTMAKER Ot J30.9 ALLERGIC RHINITIS, UNSPECIFIED 01/17/2020 LUKASZ CROWLEY PRINTMAKER Ot J42 UNSPECIFIED CHRONIC BRONCHITIS 01/17/2020 LUKASZ CROWLEY PRINTMAKER Ot J44.9 CHRONIC OBSTRUCTIVE PULMONARY DISEASE, U 01/17/2020 LUKASZ CROWLEY PRINTMAKER Ot Z99.81 DEPENDENCE ON SUPPLEMENTAL OXYGEN 01/17/2020 LUKASZ CROWLEY PRINTMAKER Ot F12.10 CANNABIS ABUSE, UNCOMPLICATED 01/17/2020 LUKASZ CROWLEY PRINTMAKER Ot F17.210 NICOTINE DEPENDENCE, CIGARETTES, UNCOMPL 01/17/2020 LUKASZ CROWLEY PRINTMAKER Ot G47.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 01/17/2020 LUKASZ CROWLEY APRN Ot J18.1 LOBAR PNEUMONIA, UNSPECIFIED ORGANISM 01/17/2020 LUKASZ CROWLEY APRN Ot J30.9 ALLERGIC RHINITIS, UNSPECIFIED 01/17/2020 LUKASZ CROWLEY APRN Ot J44.9 CHRONIC OBSTRUCTIVE PULMONARY DISEASE, U 01/17/2020 LUKASZ CROWLEY APRN Ot Z12.2 ENCNTR SCREEN FOR MALIGNANT NEOPLASM OF 01/17/2020 LUKASZ CROWLEY APRN Ot Z99.81 DEPENDENCE ON SUPPLEMENTAL OXYGEN 01/17/2020 RUDOLHP KENT DO Ot Z45.2 ENCOUNTER FOR ADJUSTMENT [...] Ot V72.84 EXAM PRE-OPERATIVE NOS 01/17/2020 LUCINA HCA VILLALPANDO Ot 530.10 ESOPHAGITIS NOS 01/17/2020 LUCINA CHA VILLALPANDO Ot 553.3 DIAPHRAGMATIC HERNIA 01/17/2020 CHA VERDUGO DO Ot 787.20 DYSPHAGIA, UNSPECIFIED 01/17/2020 JIMMY KENT DRAFTING LAYOUT WORKER Ot 486 PNEUMONIA, ORGANISM NOS 01/17/2020 JIMMY KENT DRAFTING LAYOUT WORKER Ot 789.00 ABDOMINAL PAIN, UNSPECIFIED SITE 01/17/2020 JIMMY KENT DRAFTING LAYOUT WORKER Ot 959.6 HIP THIGH INJURY NOS 01/17/2020 JIMMY KENT DRAFTING LAYOUT WORKER Ot E000.8 OTHER EXTERNAL CAUSE STATUS 01/17/2020 JIMMY KENT DRAFTING LAYOUT WORKER Ot E849.4 ACCID IN RECREATION AREA 01/17/2020 JIMMY KENT DRAFTING LAYOUT WORKER Ot E888.9 FALL NOS 01/17/2020 CAIOPETRA DENSON [...] DO Ot I25.10 ATHSCL HEART DISEASE OF [place] CORONARY 01/17/2020 RUDOLPH KENT DO Ot R07.9 CHEST PAIN, UNSPECIFIED 01/17/2020 [facility], CHA Ot R10.9 UNSPECIFIED ABDOMINAL PAIN 01/17/2020 [facility] Ot Z01.818 ENCOUNTER FOR OTHER PREPROCEDURAL EXAMIN 01/17/2020 [facility] CHA VILLALPANDO Ot 553.20 VENTRAL HERNIA NOS 01/17/2020 [facility], CHA Ot V81.5 SCREEN FOR NEPHROPATHY [...] ROSA Ot I25.10 ATHSCL HEART DISEASE OF [place] CORONARY 01/17/2020 FRANDY DE LA ROSA Ot E11.9 TYPE 2 DIABETES MELLITUS WITHOUT COMPLIC 01/17/2020 FRNADY DE LA ROSA Ot E78.2 MIXED HYPERLIPIDEMIA 01/17/2020 FRANDY DE LA ROSA Ot I10 ESSENTIAL (PRIMARY) HYPERTENSION 01/17/2020 FRANDY DE [place] ROSA Ot I25.10 ATHSCL HEART DISEASE OF [place] CORONARY 01/17/2020 LUKASZ CROWLEY APRN Ot F17.200 [...] 89 OTHER CHEST PAIN 01/17/2020 LUKASZ CROWLEY PRINTMAKER Ot F12.10 CANNABIS ABUSE, UNCOMPLICATED 01/17/2020 LUKASZ CROWLEY PRINTMAKER Ot F17.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, UNSPECIFIED, UNCOMP 01/17/2020 LUKASZ CROWLEY PRINTMAKER Ot G47.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 01/17/2020 LUKASZ CROWLEY PRINTMAKER Ot J30.9 ALLERGIC RHINITIS, UNSPECIFIED 01/17/2020 LUKASZ CROWLEY PRINTMAKER Ot J42 UNSPECIFIED CHRONIC BRONCHITIS 01/17/2020 LUKASZ CROWLEY PRINTMAKER Ot J44.9 CHRONIC OBSTRUCTIVE PULMONARY DISEASE, U 01/17/2020 LUKASZ CROWLEY PRINTMAKER Ot Z99.81 DEPENDENCE ON SUPPLEMENTAL OXYGEN 01/17/2020 LUKASZ CROWLEY PRINTMAKER Ot F12.10 CANNABIS ABUSE, UNCOMPLICATED 01/17/2020 LUKASZ CROWLEY PRINTMAKER Ot F17.210 NICOTINE DEPENDENCE, CIGARETTES, UNCOMPL 01/17/2020 LUKASZ CROWLEY PRINTMAKER Ot G47.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 01/17/2020 LUKASZ CROWLEY PRINTMAKER Ot J18.1 LOBAR PNEUMONIA, UNSPECIFIED ORGANISM 01/17/2020 LUKASZ CROWLEY PRINTMAKER Ot J30.9 ALLERGIC RHINITIS, UNSPECIFIED 01/17/2020 LUKASZ [...] VILLALPANDO Ot V72.84 EXAM PRE-OPERATIVE NOS 01/19/2020 [facility] CHA VILLALPANDO Ot 530.10 ESOPHAGITIS NOS 01/19/2020 [facility] CHA VILLALPANDO Ot 553.3 DIAPHRAGMATIC HERNIA 01/19/2020 [facility] CHA VILLALPANDO Ot 787.20 DYSPHAGIA, UNSPECIFIED 01/19/2020 JIMMY KENT DRAFTING LAYOUT WORKER Ot 486 PNEUMONIA, ORGANISM NOS 01/19/2020 JIMMY KENT DRAFTING LAYOUT WORKER Ot 789.00 ABDOMINAL PAIN, UNSPECIFIED SITE 01/19/2020 JIMMY KENT DRAFTING LAYOUT WORKER Ot 959.6 HIP THIGH INJURY NOS 01/19/2020 JIMMY KENT DRAFTING LAYOUT WORKER Ot E000.8 OTHER EXTERNAL CAUSE STATUS 01/19/2020 JIMMY KENT DRAFTING LAYOUT WORKER Ot E849.4 ACCID IN RECREATION AREA 01/19/2020 JIMMY KENT DRAFTING LAYOUT WORKER Ot E888.9 FALL NOS 01/19/2020 PETRA KEARNEY [...] DO Ot I25.10 ATHSCL HEART DISEASE OF [place] CORONARY 01/19/2020 RUDOLPH KENT DO Ot R07.9 CHEST PAIN, UNSPECIFIED 01/19/2020 LUCINA DOCHA Ot R10.9 UNSPECIFIED ABDOMINAL PAIN 01/19/2020 LUCINA DOCHA Ot Z01.818 ENCOUNTER FOR OTHER PREPROCEDURAL EXAMIN 01/19/2020 LUCINA DOCHA Ot 553.20 VENTRAL HERNIA NOS 01/19/2020 [facility] CHA Ot V81.5 SCREEN FOR NEPHROPATHY 01/19/2020 [...] ROSA Ot I25.10 ATHSCL HEART DISEASE OF [place] CORONARY 01/19/2020 FRANDY DE LA ROSA Ot E11.9 TYPE 2 DIABETES MELLITUS WITHOUT COMPLIC 01/19/2020 FRANDY DE LA ROSA Ot E78.2 MIXED HYPERLIPIDEMIA 01/19/2020 FRANDY DE LA ROSA Ot I10 ESSENTIAL (PRIMARY) HYPERTENSION 01/19/2020 FRANDY DE LA ROSA Ot I25.10 ATHSCL HEART DISEASE OF [place] CORONARY 01/19/2020 LUKASZ CROWLEY APRN Ot F17.200 [...] 01/19/2020 YOLI VILLALPANDO, RUDOLPH Raymond Ot M85.852 [facility] DISRD OF BONE DENSITY AND STRUCTURE, 01/19/2020 [...] DIABETIC PERIPHERAL AN 01/19/2020 LIVAN ALEXANDRE, JUAN Raymnod Ot E78. 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 01/19/2020 CARMELINA CROWLEYINE E PRINTMAKER Ot J30.9 ALLERGIC RHINITIS, UNSPECIFIED 01/19/2020 CARMELINA CROWLEYINE E PRINTMAKER Ot J42 UNSPECIFIED CHRONIC BRONCHITIS 01/19/2020 CARMELINA CROLWEYINE E PRINTMAKER Ot J44.9 CHRONIC OBSTRUCTIVE PULMONARY DISEASE, U 01/19/2020 CARMELINA CROWLEYINE E PRINTMAKER Ot Z99.81 DEPENDENCE ON SUPPLEMENTAL OXYGEN 01/19/2020 CARMELINA CROWLEYINE E PRINTMAKER Ot F12.10 CANNABIS ABUSE, UNCOMPLICATED 01/19/2020 CARLINE LUKASZ E PRINTMAKER Ot F17.210 NICOTINE DEPENDENCE, CIGARETTES, UNCOMPL 01/19/2020 CARMELINA CROWLEYINE E PRINTMAKER Ot G47.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 01/19/2020 CARMELINA CROWLEYINE E PRINTMAKER Ot J18.1 LOBAR PNEUMONIA, UNSPECIFIED ORGANISM 01/19/2020 CARMELINA CROWLEYINE E PRINTMAKER Ot J30.9 ALLERGIC RHINITIS, UNSPECIFIED 01/19/2020 CARMELINA CROWLEYINE E PRINTMAKER Ot J44.9 CHRONIC OBSTRUCTIVE PULMONARY DISEASE, U 01/19/2020 CARMELINA CROWLEYINE E PRINTMAKER Ot Z12.2 ENCNTR SCREEN FOR MALIGNANT NEOPLASM [...] Ot V58.81 FIT /ADJ VASCULAR CATHETER 01/20/2020 [facility].2 OPN WND ANTERIOR ABDOMEN 01/20/2020 [facility] Ot E000.8 OTHER EXTERNAL CAUSE STATUS 01/20/2020 [facility] CHA VILLALPANDO Ot E928.9 ACCIDENT NOS 01/20/2020 [...] Ot 355. 5 TARSAL TUNNEL SYNDROME 01/20/2020 [facility], CHA Ot V72.84 EXAM PRE-OPERATIVE NOS 01/20/2020 [facility], CHA Ot 530.10 ESOPHAGITIS NOS 01/20/2020 [facility], DIANNTIE Ot 553.3 DIAPHRAGMATIC HERNIA 01/20/2020 [facility], MEDARDOROUTIE Ot 787.20 DYSPHAGIA, UNSPECIFIED 01/20/2020 JIMMY KENT DRAFTING LAYOUT WORKER Ot 486 PNEUMONIA, ORGANISM NOS 01/20/2020 JIMMY KENT DRAFTING LAYOUT WORKER Ot 789.00 ABDOMINAL PAIN, UNSPECIFIED SITE 01/20/2020 ADAMA KENTIA Jr DRAFTING LAYOUT WORKER Ot 959.6 HIP THIGH INJURY NOS 01/20/2020 ADAMA KENTIA Jr DRAFTING LAYOUT WORKER Ot E000.8 OTHER EXTERNAL CAUSE STATUS 01/20/2020 ADAMA KENTIA Jr DRAFTING LAYOUT WORKER Ot E849.4 ACCID IN RECREATION AREA 01/20/2020 ADAMA KENTIA Jr DRAFTING LAYOUT WORKER Ot E888.9 FALL NOS 01/20/2020 WAUS[place] KRISHAN, PETRA Raymond Ot 724. 5 BACKACHE NOS 01/20/2020 [place] PETRA NICKERSON Ot 786. 50 CHEST PAIN NOS 01/20/2020 [facility] PETRA NICKERSON Ot 724. 1 PAIN IN THORACIC SPINE 01/20/2020 [place] PETRA NICKERSON Ot 786. 50 CHEST PAIN NOS 01/20/2020 RUDOLPH KENT DO Ot 414.00 CORON ATHEROSCLER NOS TYPE VESSEL, NATIV 01/20/2020 RUDOLPH KENT DO Ot 786.50 CHEST PAIN NOS 01/20/2020 RUDOLPH KENT DO Ot I25.10 ATHSCL HEART DISEASE OF [place] CORONARY 01/20/2020 RUDOLPH KENT DO Ot R07.9 CHEST PAIN, UNSPECIFIED 01/20/2020 [facility] Ot R10.9 UNSPECIFIED ABDOMINAL PAIN 01/20/2020 [facility] Ot Z01.818 ENCOUNTER FOR OTHER PREPROCEDURAL [...] TYPE 2 DIABETES MELLITUS WITHOUT COMPLIC 01/20/2020 [facility] CRISTINA, FRANDY Aviles Ot E78.2 MIXED HYPERLIPIDEMIA 01/20/2020 [facility] CRISTINA, FRANDY Aviles Ot I10 ESSENTIAL (PRIMARY) HYPERTENSION 01/20/2020 [facility] CRISTINA, FRANDY Aviles Ot I25.10 ATHSCL HEART DISEASE OF [place] CORONARY 01/20/2020 [facility] CRISTINA, FRANDY Aviles Ot E11.9 TYPE 2 DIABETES MELLITUS WITHOUT COMPLIC 01/20/2020 [facility] CRISTINA, FRANDY Aviles Ot E78.2 MIXED HYPERLIPIDEMIA 01/20/2020 [facility] RCISTINA, FRANDY Aviles Ot I10 ESSENTIAL (PRIMARY) HYPERTENSION 01/20/2020 [facility] CRISTINA, FRANDY Aviles Ot I25.10 ATHSCL HEART DISEASE OF [place] CORONARY 01/20/2020 LUKASZ CROWLEY APRN Ot F17.200 [...] 01/20/2020 YOLI VILLALPANDO, RUDOLPH Raymond Ot M85.852 [facility] DISRD OF BONE DENSITY AND STRUCTURE, 01/20/2020 [...] DIABETES W DIABETIC PERIPHERAL AN 01/20/2020 LIVAN ALEXANDER, JUAN Raymond Ot E78. 2 MIXED HYPERLIPIDEMIA [...] OTHER CHEST PAIN 01/20/2020 CARLINE, LUKASZ E PRINTMAKER Ot F12.10 CANNABIS ABUSE, UNCOMPLICATED 01/20/2020 CARLINE, LUKASZ E PRINTMAKER Ot F17.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, UNSPECIFIED, UNCOMP 01/20/2020 CARLINE, LUKASZ E PRINTMAKER Ot G47.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 01/20/2020 CARLINE, LUKASZ E PRINTMAKER Ot J30.9 ALLERGIC RHINITIS, UNSPECIFIED 01/20/2020 CARLINE, LUKASZ E PRINTMAKER Ot J42 UNSPECIFIED CHRONIC BRONCHITIS 01/20/2020 CARLINE, LUKASZ E PRINTMAKER Ot J44.9 CHRONIC OBSTRUCTIVE PULMONARY DISEASE, U 01/20/2020 CARLINE, LUKASZ E PRINTMAKER Ot Z99.81 DEPENDENCE ON SUPPLEMENTAL OXYGEN 01/20/2020 CARLINE, LUKASZ E PRINTMAKER Ot F12.10 CANNABIS ABUSE, UNCOMPLICATED 01/20/2020 CARLINE, LUKASZ E PRINTMAKER Ot F17.210 NICOTINE DEPENDENCE, CIGARETTES, UNCOMPL 01/20/2020 CARLINE, LUKASZ E PRINTMAKER Ot G47.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 01/20/2020 CARLINE, LUKASZ E PRINTMAKER Ot J18.1 LOBAR PNEUMONIA, UNSPECIFIED ORGANISM 01/20/2020 CARLINE, LUKASZ E PRINTMAKER Ot J30.9 ALLERGIC RHINITIS, UNSPECIFIED 01/20/2020 CARLINE, LUKASZ E PRINTMAKER Ot J44.9 CHRONIC OBSTRUCTIVE PULMONARY DISEASE, U 01/20/2020 CARLINE, LUKASZ E PRINTMAKER Ot Z12.2 ENCNTR SCREEN FOR MALIGNANT NEOPLASM OF 01/20/2020 CARLINE, LUKASZ E PRINTMAKER Ot Z99.81 DEPENDENCE ON SUPPLEMENTAL OXYGEN 01/20/2020 [...] Ot V58.81 FIT /ADJ VASCULAR CATHETER 01/20/2020 [facility] 879.2 OPN WND ANTERIOR ABDOMEN 01/20/2020 [facility] Ot E000.8 OTHER EXTERNAL CAUSE STATUS 01/20/2020 [facility] CHA VILLALPANDO Ot E928.9 ACCIDENT NOS 01/20/2020 [...] MD Ot V46. 2 SUPPLEMENTAL OXYGEN 01/20/2020 RUDLOPH KENT DO Ot V76.12 OT SCREEN MAMMO-MALIGN NEOPLASM OF JEANETH 01/20/2020 QING TAO DO Ot 305. 1 TOBACCO USE DISORDER 01/20/2020 QING TAO DO Ot 496 CHR AIRWAY OBSTRUCT NEC 01/20/2020 QING TAO DO Ot 786. 09 RESPIRATORY ABNORM NEC 01/20/2020 KASIE DPM, ANDREA Q Ot 355. 5 TARSAL TUNNEL SYNDROME 01/20/2020 [facility] Ot V72.84 EXAM PRE-OPERATIVE NOS 01/20/2020 [facility] Ot 530.10 ESOPHAGITIS NOS 01/20/2020 [facility] Ot 553.3 DIAPHRAGMATIC HERNIA 01/20/2020 [facility] Ot 787.20 DYSPHAGIA, UNSPECIFIED 01/20/2020 ADAMA KENTIA Jr DRAFTING LAYOUT WORKER Ot 486 PNEUMONIA, ORGANISM NOS 01/20/2020 ADAMA KENTIA L DRAFTING LAYOUT WORKER Ot 789.00 ABDOMINAL PAIN, UNSPECIFIED SITE 01/20/2020 ADAMA KENTIA Jr DRAFTING LAYOUT WORKER Ot 959.6 HIP THIGH INJURY NOS 01/20/2020 CHIP KENTRICIA L DRAFTING LAYOUT WORKER Ot E000.8 OTHER EXTERNAL CAUSE STATUS 01/20/2020 ADAMA KENTIA Jr DRAFTING LAYOUT WORKER Ot E849.4 ACCID IN RECREATION AREA 01/20/2020 ADAMA KENTIA Jr DRAFTING LAYOUT WORKER Ot E888.9 FALL NOS 01/20/2020 [facility], PETRA Raymond Ot 724. 5 BACKACHE NOS 01/20/2020 [place] KRISHAN, PETRA Raymond Ot 786. 50 CHEST PAIN NOS 01/20/2020 [place] PETRA NICKERSON Ot 724. 1 PAIN IN THORACIC SPINE 01/20/2020 [place] PETRA NICKERSON Ot 786. 50 CHEST PAIN NOS 01/20/2020 KENTRUDOLPH BURNHAM DO Ot 414.00 CORON ATHEROSCLER NOS TYPE VESSEL, NATIV 01/20/2020 KENTRUDOLPH BURNHAM DO Ot 786.50 CHEST PAIN NOS 01/20/2020 [place] RUDOLPH VILLALPANDO Ot I25.10 ATHSCL HEART DISEASE OF [place] CORONARY 01/20/2020 KENTRUDOLPH BURNHAM DO Ot R07.9 CHEST PAIN, UNSPECIFIED 01/20/2020 [facility] Ot R10.9 UNSPECIFIED ABDOMINAL PAIN 01/20/2020 [facility] Ot Z01.818 ENCOUNTER FOR OTHER PREPROCEDURAL EXAMIN 01/20/2020 [facility] DOCHA Ot 553.20 VENTRAL HERNIA NOS 01/20/2020 [facility] Ot V81.5 SCREEN FOR NEPHROPATHY 01/20/2020 LUKASZ CROWLEY APRN Ot F17.210 NICOTINE DEPENDENCE, CIGARETTES, UNCOMPL 01/20/2020 LUKASZ CROWLEY APRN Ot J44.9 CHRONIC OBSTRUCTIVE PULMONARY DISEASE, U 01/20/2020 LUKASZ CROWLEY APRN Ot R06.00 DYSPNEA, UNSPECIFIED 01/20/2020 [facility] PA, FRANDY Aviles Ot E11.9 TYPE 2 DIABETES MELLITUS WITHOUT COMPLIC 01/20/2020 [facility] PA, FRANDY Aviles Ot E78.2 MIXED HYPERLIPIDEMIA 01/20/2020 [facility] PA, FRANDY K Ot I10 ESSENTIAL (PRIMARY) HYPERTENSION 01/20/2020 [facility] PA, FRANDY Aviles Ot I25.10 ATHSCL HEART DISEASE OF [place] CORONARY 01/20/2020 [facility] CRISTINA, FRANDY Aviles Ot E11.9 TYPE 2 DIABETES MELLITUS WITHOUT COMPLIC 01/20/2020 [facility] PA, FRANDY Aviles Ot E78.2 MIXED HYPERLIPIDEMIA 01/20/2020 [facility] PA, FRANDY K Ot I10 ESSENTIAL (PRIMARY) HYPERTENSION 01/20/2020 [facility] PA, FRANDY K Ot I25.10 ATHSCL HEART DISEASE OF [place] CORONARY 01/20/2020 LUKASZ CROWLEY APRN Ot F17.200 [...] OTHER CHEST PAIN 01/20/2020 CARLINE LUKASZ E PRINTMAKER Ot F12.10 CANNABIS ABUSE, UNCOMPLICATED 01/20/2020 CARLINE, LUKASZ E PRINTMAKER Ot F17.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, UNSPECIFIED, UNCOMP 01/20/2020 CARLINE, LUKASZ E PRINTMAKER Ot G47.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 01/20/2020 CARLINE, LUKASZ E PRINTMAKER Ot J30.9 ALLERGIC RHINITIS, UNSPECIFIED 01/20/2020 CARLINE, LUKASZ E PRINTMAKER Ot J42 UNSPECIFIED CHRONIC BRONCHITIS 01/20/2020 CARLINE, LUKASZ E PRINTMAKER Ot J44.9 CHRONIC OBSTRUCTIVE PULMONARY DISEASE, U 01/20/2020 CARLINE, LUKASZ E PRINTMAKER Ot Z99.81 DEPENDENCE ON SUPPLEMENTAL OXYGEN 01/20/2020 CARLINE, LUKASZ E PRINTMAKER Ot F12.10 CANNABIS ABUSE, UNCOMPLICATED 01/20/2020 CARLINE, LUKASZ E PRINTMAKER Ot F17.210 NICOTINE DEPENDENCE, CIGARETTES, UNCOMPL 01/20/2020 CARLINE, LUKASZ E PRINTMAKER Ot G47.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 01/20/2020 CARLINE, LUKASZ E PRINTMAKER Ot J18.1 LOBAR PNEUMONIA, UNSPECIFIED ORGANISM 01/20/2020 CARLINE, LUKASZ E PRINTMAKER Ot J30.9 ALLERGIC RHINITIS, UNSPECIFIED 01/20/2020 CARLINE, LUKASZ E PRINTMAKER Ot J44.9 CHRONIC OBSTRUCTIVE PULMONARY DISEASE, U 01/20/2020 CARLINE, LUKASZ E PRINTMAKER Ot Z12.2 ENCNTR SCREEN FOR MALIGNANT NEOPLASM OF 01/20/2020 CARLINE, LUKASZ E PRINTMAKER Ot Z99.81 DEPENDENCE ON SUPPLEMENTAL OXYGEN 01/20/2020 RUDOLPH KENT DO Ot Z45.2 ENCOUNTER FOR ADJUSTMENT AND MANAGEMENT 01/20/2020 SARAH ROBERTSON DRAFTING LAYOUT WORKER Ot 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, CERVICOTHORACIC REGIO 01/20/2020 SARAH ROBERTSON Ot M48.02 SPINAL STENOSIS, CERVICAL REGION 01/20/2020 SARAH ROBERTSON Ot M50.11 CERV DISC DISORDER WITH RADICULOPATHY, H 01/20/2020 SARAH ROBERTSON Ot M50.121 CERVICAL DISC DISORDER AT C4-C5 LEVEL [place] 01/20/2020 [facility] Ot V72.84 EXAM PRE-OPERATIVE NOS 01/20/2020 Ot V58.81 FIT /ADJ VASCULAR CATHETER 01/20/2020 [facility] Ot 879.2 OPN WND ANTERIOR ABDOMEN 01/20/2020 [facility] Ot E000.8 OTHER EXTERNAL CAUSE STATUS 01/20/2020 [facility] Ot E928.9 ACCIDENT NOS 01/20/2020 JUAN [...] Ot 355. 5 TARSAL TUNNEL SYNDROME 01/20/2020 [facility] Ot V72.84 EXAM PRE-OPERATIVE NOS 01/20/2020 [facility], CHA Ot 530.10 ESOPHAGITIS NOS 01/20/2020 [facility], CHA Ot 553.3 DIAPHRAGMATIC HERNIA 01/20/2020 [facility], CHA Ot 787.20 DYSPHAGIA, UNSPECIFIED 01/20/2020 JIMMY KENT DRAFTING LAYOUT WORKER Ot 486 PNEUMONIA, ORGANISM NOS 01/20/2020 CHIP KENTRICIA Jr DRAFTING LAYOUT WORKER Ot 789.00 ABDOMINAL PAIN, UNSPECIFIED SITE 01/20/2020 CHIP KENTRICIA L DRAFTING LAYOUT WORKER Ot 959.6 HIP THIGH INJURY NOS 01/20/2020 ADAMA KENTIA L DRAFTING LAYOUT WORKER Ot E000.8 OTHER EXTERNAL CAUSE STATUS 01/20/2020 JIMMY KENT DRAFTING LAYOUT WORKER Ot E849.4 ACCID IN RECREATION AREA 01/20/2020 ADAMA KENTIA Jr DRAFTING LAYOUT WORKER Ot E888.9 FALL NOS 01/20/2020 [facility], PETRA Raymond Ot 724. 5 BACKACHE NOS 01/20/2020 [facility], PETRA Raymond Ot 786. 50 CHEST PAIN NOS 01/20/2020 [facility], PETRA Raymond Ot 724. 1 PAIN IN THORACIC SPINE 01/20/2020 [facility], PETRA Raymond Ot 786. 50 CHEST PAIN NOS 01/20/2020 [place] RUDOLPH VILLALPANDO Ot 414.00 CORON ATHEROSCLER NOS TYPE VESSEL, NATIV 01/20/2020 KENTRUDOLPH BURNHAM DO Ot 786.50 CHEST PAIN NOS 01/20/2020 [place] RUDOLPH VILLALPANDO Ot I25.10 ATHSCL HEART DISEASE OF [place] CORONARY 01/20/2020 KENTRUDOLPH BURNHAM DO Ot R07.9 CHEST PAIN, UNSPECIFIED 01/20/2020 [facility] Ot R10.9 UNSPECIFIED ABDOMINAL PAIN 01/20/2020 [facility], CHA Ot Z01.818 ENCOUNTER FOR OTHER PREPROCEDURAL EXAMIN 01/20/2020 [facility] Ot 553.20 VENTRAL HERNIA NOS 01/20/2020 [facility] Ot V81.5 SCREEN FOR NEPHROPATHY 01/20/2020 LUKASZ CROWLEY APRN Ot F17.210 NICOTINE DEPENDENCE, CIGARETTES, UNCOMPL 01/20/2020 LUKASZ CROWLEY APRN Ot J44.9 CHRONIC OBSTRUCTIVE PULMONARY DISEASE, U 01/20/2020 LUKASZ CROWLEY APRN Ot R06.00 DYSPNEA, UNSPECIFIED 01/20/2020 [facility] PA, FRANDY Aviles Ot E11.9 TYPE 2 DIABETES MELLITUS WITHOUT COMPLIC 01/20/2020 [facility] PA, FRANDY Aviles Ot E78.2 MIXED HYPERLIPIDEMIA 01/20/2020 [facility] PA, FRANDY Aviles Ot I10 ESSENTIAL (PRIMARY) HYPERTENSION 01/20/2020 [facility] PA, FRANDY Aviles Ot I25.10 ATHSCL HEART DISEASE OF [place] CORONARY 01/20/2020 [facility] PA, FRANDY Aviles Ot E11.9 TYPE 2 DIABETES MELLITUS WITHOUT COMPLIC 01/20/2020 [facility] CRISTINA, FRANDY Aviles Ot E78.2 MIXED HYPERLIPIDEMIA 01/20/2020 [facility] PA, FRANDY Aviles Ot I10 ESSENTIAL (PRIMARY) HYPERTENSION 01/20/2020 [facility] CRISTINA, FRANDY Aviles Ot I25.10 ATHSCL HEART DISEASE OF [place] CORONARY 01/20/2020 LUKASZ CROWLEY APRN Ot F17.200 [...] OTHER CHEST PAIN 01/20/2020 CARLINE, LUKASZ E PRINTMAKER Ot F12.10 CANNABIS ABUSE, UNCOMPLICATED 01/20/2020 CARLINE, LUKASZ E PRINTMAKER Ot F17.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, UNSPECIFIED, UNCOMP 01/20/2020 CARLINE, LUKASZ E PRINTMAKER Ot G47.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 01/20/2020 CARLINE, LUKASZ E PRINTMAKER Ot J30.9 ALLERGIC RHINITIS, UNSPECIFIED 01/20/2020 CARLINE, LUKASZ E PRINTMAKER Ot J42 UNSPECIFIED CHRONIC BRONCHITIS 01/20/2020 CARLINE, LUKASZ E PRINTMAKER Ot J44.9 CHRONIC OBSTRUCTIVE PULMONARY DISEASE, U 01/20/2020 CARLINE, LUKASZ E PRINTMAKER Ot Z99.81 DEPENDENCE ON SUPPLEMENTAL OXYGEN 01/20/2020 CARLINE, LUKASZ E PRINTMAKER Ot F12.10 CANNABIS ABUSE, UNCOMPLICATED 01/20/2020 CRALINE, LUKASZ E PRINTMAKER Ot F17.210 NICOTINE DEPENDENCE, CIGARETTES, UNCOMPL 01/20/2020 CARLINE, LUKASZ E PRINTMAKER Ot G47.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 01/20/2020 CARLINE, LUKASZ E PRINTMAKER Ot J18.1 LOBAR PNEUMONIA, UNSPECIFIED ORGANISM 01/20/2020 CARLINE, LUKASZ E PRINTMAKER Ot J30.9 ALLERGIC RHINITIS, UNSPECIFIED 01/20/2020 CARLINE, LUKASZ E PRINTMAKER Ot J44.9 CHRONIC OBSTRUCTIVE PULMONARY DISEASE, U 01/20/2020 CARLINE, LUKASZ E PRINTMAKER Ot Z12.2 ENCNTR SCREEN FOR MALIGNANT NEOPLASM OF 01/20/2020 CARLINE, LUKASZ E PRINTMAKER Ot Z99.81 DEPENDENCE ON SUPPLEMENTAL OXYGEN 01/20/2020 RUDOLPH KENT DO Ot Z45.2 ENCOUNTER FOR ADJUSTMENT AND MANAGEMENT 01/20/2020 SARAH ROBERTSON Ot 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 10 ATHSCL HEART DISEASE OF [place] CORONARY 01/24/2020 LUKAS NUNES MD Ot I50. 9 HEART FAILURE, UNSPECIFIED 01/24/2020 LUKAS NUNES MD Ot I65. 23 OCCLUSION AND STENOSIS OF BILATERAL PASCUAL 01/24/2020 LUKAS NNUES MD Ot J18. 9 PNEUMONIA, UNSPECIFIED ORGANISM [...] Ot M54. 9 DORSALGIA, UNSPECIFIED 01/24/2020 LUKAS UNNES MD, Ot M79. 7 FIBROMYALGIA 01/24/2020 LUKAS NUNES MD Ot R00. 1 BRADYCARDIA, UNSPECIFIED 01/24/2020 LUKAS NUNES MD, Ot R53. 81 OTHER MALAISE 01/24/2020 LUKAS NUNES MD, Ot Z68. 31 BODY MASS INDEX (BMI) 31.0-31.9, ADULT 01/24/2020 LUKAS NUNES MD, Ot Z79. 84 JAIL (CURRENT) USE OF ORAL HYPOGLYC 01/24/2020 LUKAS [...] Ot 355. 5 TARSAL TUNNEL SYNDROME 01/27/2020 [facility], DIANNTIE Ot V72.84 EXAM PRE-OPERATIVE NOS 01/27/2020 [facility], MEDARDOROUTIE Ot 530.10 ESOPHAGITIS NOS 01/27/2020 [facility], MEDARDOROUTIE Ot 553.3 DIAPHRAGMATIC HERNIA 01/27/2020 [facility], MEDARDOROUTIE Ot 787.20 DYSPHAGIA, UNSPECIFIED 01/27/2020 JIMMY KENT DRAFTING LAYOUT WORKER Ot 486 PNEUMONIA, ORGANISM NOS 01/27/2020 JIMMY KENT DRAFTING LAYOUT WORKER Ot 789.00 ABDOMINAL PAIN, UNSPECIFIED SITE 01/27/2020 JIMMY KENT DRAFTING LAYOUT WORKER Ot 959.6 HIP THIGH INJURY NOS 01/27/2020 JIMMY KENT DRAFTING LAYOUT WORKER Ot E000.8 OTHER EXTERNAL CAUSE STATUS 01/27/2020 JIMMY KENT DRAFTING LAYOUT WORKER Ot E849.4 ACCID IN RECREATION AREA 01/27/2020 JIMMY KENT DRAFTING LAYOUT WORKER Ot E888.9 FALL NOS 01/27/2020 [place] KRISHAN, PETRA Raymond Ot 724. 5 BACKACHE NOS 01/27/2020 [place] PETRA NICKERSON Ot 786. 50 CHEST PAIN NOS 01/27/2020 [place] PETRA NICKERSON Ot 724. 1 PAIN IN THORACIC SPINE 01/27/2020 [place] PETRA NICKERSON Ot 786. 50 CHEST PAIN NOS 01/27/2020 RUDOLPH KENT DO Ot 414.00 CORON ATHEROSCLER NOS TYPE VESSEL, NATIV 01/27/2020 RUDOLPH KENT DO Ot 786.50 CHEST PAIN NOS 01/27/2020 RUDOLPH KENT DO Ot I25.10 ATHSCL HEART DISEASE OF [place] CORONARY 01/27/2020 RUDOLPH KENT DO Ot R07.9 CHEST PAIN, UNSPECIFIED 01/27/2020 [facility] R10.9 UNSPECIFIED ABDOMINAL PAIN 01/27/2020 [facility] Ot Z01.818 ENCOUNTER FOR OTHER PREPROCEDURAL [...] ROSA Ot I25.10 ATHSCL HEART DISEASE OF [place] CORONARY 01/27/2020 FRANDY DE LA ROSA Ot E11.9 TYPE 2 DIABETES MELLITUS WITHOUT COMPLIC 01/27/2020 FRANDY [place] Ot E78.2 MIXED HYPERLIPIDEMIA 01/27/2020 FRANDY DE [place] Ot I10 ESSENTIAL (PRIMARY) HYPERTENSION 01/27/2020 FRANDY [place] Ot I25.10 ATHSCL HEART DISEASE OF [place] CORONARY 01/27/2020 LUKASZ CROWLEY APRN Ot F17.200 [...] UNSPECIFIED 01/27/2020 RUDOLPH KENT DO, Ot M85.852 [facility] DISRD OF BONE DENSITY AND STRUCTURE, 01/27/2020 [...] Ot M43.16 SPONDYLOLISTHESIS, LUMBAR REGION 01/27/2020 RUDOLPH KETN DO, Ot M46.86 OTHER SPECIFIED INFLAMMATORY SPONDYLOPAT [...] OTHER CHEST PAIN 01/27/2020 CARLINE, LUKASZ E PRINTMAKER Ot F12.10 CANNABIS ABUSE, UNCOMPLICATED 01/27/2020 CARLINE, LUKASZ E PRINTMAKER Ot F17.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, UNSPECIFIED, UNCOMP 01/27/2020 CARLINE, LUKASZ E PRINTMAKER Ot G47.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 01/27/2020 CARLINE, LUKASZ E PRINTMAKER Ot J30.9 ALLERGIC RHINITIS, UNSPECIFIED 01/27/2020 CARLINE, LUKASZ E PRINTMAKER Ot J42 UNSPECIFIED CHRONIC BRONCHITIS 01/27/2020 CARLINE, LUKASZ E PRINTMAKER Ot J44.9 CHRONIC OBSTRUCTIVE PULMONARY DISEASE, U 01/27/2020 CARLINE, LUKASZ E PRINTMAKER Ot Z99.81 DEPENDENCE ON SUPPLEMENTAL OXYGEN 01/27/2020 CARLINE, LUKASZ E PRINTMAKER Ot F12.10 CANNABIS ABUSE, UNCOMPLICATED 01/27/2020 CARLINE, LUKASZ E PRINTMAKER Ot F17.210 NICOTINE DEPENDENCE, CIGARETTES, UNCOMPL 01/27/2020 CARLINE, LUKASZ E PRINTMAKER Ot G47.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 01/27/2020 CARLINE, LUKASZ E PRINTMAKER Ot J18.1 LOBAR PNEUMONIA, UNSPECIFIED ORGANISM 01/27/2020 CARLINE, LUKASZ E PRINTMAKER Ot J30.9 ALLERGIC RHINITIS, UNSPECIFIED 01/27/2020 CARLINE, LUKASZ E PRINTMAKER Ot J44.9 CHRONIC OBSTRUCTIVE PULMONARY DISEASE, U 01/27/2020 CARLINE, LUKASZ E PRINTMAKER Ot Z12.2 ENCNTR SCREEN FOR MALIGNANT NEOPLASM OF 01/27/2020 CARLINE LUKASZ E PRINTMAKER Ot Z99.81 DEPENDENCE ON SUPPLEMENTAL OXYGEN 01/27/2020 [...] Ot 787.20 DYSPHAGIA, UNSPECIFIED 01/27/2020 JIMMY KENT DRAFTING LAYOUT WORKER Ot 486 PNEUMONIA, ORGANISM NOS 01/27/2020 JMIMY KENT DRAFTING LAYOUT WORKER Ot 789.00 ABDOMINAL PAIN, UNSPECIFIED SITE 01/27/2020 ADAMA KENTIA Jr DRAFTING LAYOUT WORKER Ot 959.6 HIP THIGH INJURY NOS 01/27/2020 JIMMY KENT DRAFTING LAYOUT WORKER Ot E000.8 OTHER EXTERNAL CAUSE STATUS 01/27/2020 JIMMY KENT DRAFTING LAYOUT WORKER Ot E849.4 ACCID IN RECREATION AREA 01/27/2020 JIMMY KENT DRAFTING LAYOUT WORKER Ot E888.9 FALL NOS 01/27/2020 WA[place] KRISHAN, PETRA Raymond Ot 724. 5 BACKACHE NOS 01/27/2020 [place] PETRA NICKERSON Ot 786. 50 CHEST PAIN NOS 01/27/2020 PETRA KEARNEY DC Ot 724. 1 PAIN IN THORACIC SPINE 01/27/2020 PETRA KEARNEY DC Ot 786. 50 CHEST PAIN NOS 01/27/2020 RUDOLPH KENT DO Ot 414.00 CORON ATHEROSCLER NOS TYPE VESSEL, NATIV 01/27/2020 RUDOLPH KENT DO Ot 786.50 CHEST PAIN NOS 01/27/2020 RUDOLPH KENT DO Ot I25.10 ATHSCL HEART DISEASE OF [place] CORONARY 01/27/2020 RUDOLPH KENT DO Ot R07.9 [...] TYPE 2 DIABETES MELLITUS WITHOUT COMPLIC 01/27/2020 [facility], FRANDY Aviles Ot E78.2 MIXED HYPERLIPIDEMIA 01/27/2020 [facility] PA, FRANDY K Ot I10 ESSENTIAL (PRIMARY) HYPERTENSION 01/27/2020 [facility] CRISTINA, FRANDY Aviles Ot I25.10 ATHSCL HEART DISEASE OF [place] CORONARY 01/27/2020 [facility] CRISTINA, FRANDY Aviles Ot E11.9 TYPE 2 DIABETES MELLITUS WITHOUT COMPLIC 01/27/2020 [facility] CRISTINA, FRANDY Aviles Ot E78.2 MIXED HYPERLIPIDEMIA 01/27/2020 [facility] CRISTINA, FRANDY K Ot I10 ESSENTIAL (PRIMARY) HYPERTENSION 01/27/2020 [facility] CRISTINA, FRANDY Stefan Ot I25.10 ATHSCL HEART DISEASE OF [place] CORONARY 01/27/2020 LUKASZ CROWLEY APRN Ot F17.200 [...] OTHER CHEST PAIN 01/27/2020 CARLINE, LUKASZ E PRINTMAKER Ot F12.10 CANNABIS ABUSE, UNCOMPLICATED 01/27/2020 CARLINE, LUKASZ E PRINTMAKER Ot F17.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, UNSPECIFIED, UNCOMP 01/27/2020 CARLINE, LUKASZ E PRINTMAKER Ot G47.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 01/27/2020 CARLINE, LUKASZ E PRINTMAKER Ot J30.9 ALLERGIC RHINITIS, UNSPECIFIED 01/27/2020 CARLINE, LUKASZ E PRINTMAKER Ot J42 UNSPECIFIED CHRONIC BRONCHITIS 01/27/2020 CARLINE, LUKASZ E PRINTMAKER Ot J44.9 CHRONIC OBSTRUCTIVE PULMONARY DISEASE, U 01/27/2020 CARLINE, LUKASZ E PRINTMAKER Ot Z99.81 DEPENDENCE ON SUPPLEMENTAL OXYGEN 01/27/2020 CARLINE, LUKASZ E PRINTMAKER Ot F12.10 CANNABIS ABUSE, UNCOMPLICATED 01/27/2020 CARLINE, LUKASZ E PRINTMAKER Ot F17.210 NICOTINE DEPENDENCE, CIGARETTES, UNCOMPL 01/27/2020 CARLINE, LUKASZ E PRINTMAKER Ot G47.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 01/27/2020 CARLINE, LUKASZ E PRINTMAKER Ot J18.1 LOBAR PNEUMONIA, UNSPECIFIED ORGANISM 01/27/2020 CARLINE, LUKASZ E PRINTMAKER Ot J30.9 ALLERGIC RHINITIS, UNSPECIFIED 01/27/2020 CARLINE, LUKASZ E PRINTMAKER Ot J44.9 CHRONIC OBSTRUCTIVE PULMONARY DISEASE, U 01/27/2020 CARLINE, LUKASZ E PRINTMAKER Ot Z12.2 ENCNTR SCREEN FOR MALIGNANT NEOPLASM OF 01/27/2020 CARLINE, LUKASZ E PRINTMAKER Ot Z99.81 DEPENDENCE ON SUPPLEMENTAL OXYGEN 01/27/2020 RUDOLPH KENT DO Ot Z45.2 ENCOUNTER FOR ADJUSTMENT AND MANAGEMENT 01/27/2020 SARAH ROBERTSON Ot 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, CERVICOTHORACIC REGIO 01/27/2020 MARCELO, SARAH J DRAFTING LAYOUT WORKER Ot M48.02 SPINAL STENOSIS, CERVICAL REGION 01/27/2020 SARAH ROBERTSON DRAFTING LAYOUT WORKER Ot M50.11 CERV DISC DISORDER WITH RADICULOPATHY, H 01/27/2020 SARAH ROBERTSON DRAFTING LAYOUT WORKER Ot M50.121 CERVICAL DISC DISORDER AT C4-C5 [...] UNSPECIFIED 01/29/2020 QIU DO, RANDAL Ot Z79.4 JAIL (CURRENT) USE OF INSULIN 01/29/2020 QIU DO, RANDAL Ot Z79.89 1 JAIL (CURRENT) USE OF OPIATE ANALGE 01/29/2020 QIU DO, RANDAL Ot Z87.01 PERSONAL HISTORY OF PNEUMONIA (RECURRENT 01/29/2020 QIU DO, RANDAL Ot Z90.49 ACQUIRED ABSENCE OF OTHER SPECIFIED PART 01/29/2020 QIU DO, RANDAL Ot Z90.71 0 ACQUIRED ABSENCE OF BOTH CERVIX AND UTER 01/29/2020 QIU DO, RANDAL Ot Z95.5 PRESENCE OF CORONARY ANGIOPLASTY IMPLANT 01/29/2020 QIU DO, RANDAL Ot Z99.81 DEPENDENCE ON SUPPLEMENTAL OXYGEN 01/30/2020 QIU DO, RANDAL Ot E11.40 TYPE 2 DIABETES MELLITUS WITH DIABETIC N 01/30/2020 QIU DO, RANDAL Ot E78.5 HYPERLIPIDEMIA, UNSPECIFIED 01/30/2020 QIU DO, RANDAL Ot F17.21 0 NICOTINE DEPENDENCE, CIGARETTES, UNCOMPL 01/30/2020 QIU DO, RANDAL Ot F32.9 MAJOR DEPRESSIVE DISORDER, SINGLE EPISOD 01/30/2020 QIU DO, RANDAL Ot F41.9 ANXIETY DISORDER, UNSPECIFIED 01/30/2020 QIU DO, RANDAL Ot G72.89 OTHER SPECIFIED MYOPATHIES 01/30/2020 QIU DO, RANDAL Ot I10 ESSENTIAL (PRIMARY) HYPERTENSION 01/30/2020 QIU DO, RANDAL Ot J43.9 EMPHYSEMA, UNSPECIFIED 01/30/2020 QIU DO, RANDAL Ot M19.91 PRIMARY OSTEOARTHRITIS, UNSPECIFIED SITE 01/30/2020 QIU DO, RANDAL Ot M79.7 FIBROMYALGIA 01/30/2020 QIU DO, RANDAL Ot N31.9 NEUROMUSCULAR DYSFUNCTION OF BLADDER, UN 01/30/2020 QUI DO, RANDAL Ot R09.02 HYPOXEMIA 01/30/2020 QIU DO, RANDAL Ot R15.9 FULL INCONTINENCE OF FECES 01/30/2020 QIU DO, RANDAL Ot R33.9 RETENTION OF URINE, UNSPECIFIED 01/30/2020 QIU DO, RANDAL Ot Z79.4 JAIL (CURRENT) USE OF INSULIN 01/30/2020 QIU DO, RANDAL Ot Z79.89 1 JAIL (CURRENT) USE OF OPIATE ANALGE 01/30/2020 QIU DO, RANDAL Ot Z87.01 PERSONAL HISTORY OF PNEUMONIA (RECURRENT 01/30/2020 QIU DO, RANDAL Ot Z90.49 ACQUIRED ABSENCE OF OTHER SPECIFIED PART 01/30/2020 QIU DO, RANDAL Ot Z90.71 0 ACQUIRED ABSENCE OF BOTH CERVIX AND UTER 01/30/2020 QIU DO, RANDAL Ot Z95.5 PRESENCE OF CORONARY ANGIOPLASTY IMPLANT 01/30/2020 QIU DO, RANDAL Ot Z99.81 DEPENDENCE ON SUPPLEMENTAL OXYGEN 02/03/2020 LUCINA DO, CHA Ot 879.2 OPN WND ANTERIOR ABDOMEN 02/03/2020 [facility] CHA VILLALPANDO Ot E000.8 OTHER EXTERNAL CAUSE STATUS 02/03/2020 LUCINA CHA VILLALPANDO Ot E928.9 ACCIDENT NOS 02/03/2020 LIVAN ALEXANDRE, JUAN Raymond Ot 272. 4 HYPERLIPIDEMIA NEC/NOS 02/03/2020 LIVAN ALEXANDRE, JUAN Raymond Ot 397. 0 TRICUSPID VALVE DISEASE 02/03/2020 LIVAN ALEXANDRE, JUAN Raymond Ot 424. 0 MITRAL VALVE DISORDER 02/03/2020 JUAN LICONA MD Ot 786. 09 RESPIRATORY ABNORM NEC 02/03/2020 JUAN LICONA MD Ot 786. 50 CHEST PAIN NOS 02/03/2020 JUAN LICONA MD Ot V46. 2 SUPPLEMENTAL OXYGEN 02/03/2020 JUAN LICONA MD Ot 272. 4 HYPERLIPIDEMIA NEC/NOS 02/03/2020 JUAN LICONA MD Ot 786. 09 RESPIRATORY ABNORM NEC 02/03/2020 JUAN LICONA MD Ot 786. 50 CHEST PAIN NOS 02/03/2020 JUAN LICONA MD Ot V46. 2 SUPPLEMENTAL OXYGEN 02/03/2020 RUDOLPH KENT DO Ot V76.12 OTH SCREEN MAMMO-MALIGN NEOPLASM OF [place] 02/03/2020 QING TAO DO Ot 305. 1 TOBACCO USE DISORDER 02/03/2020 QING TAO DO Ot 496 CHR AIRWAY OBSTRUCT NEC 02/03/2020 QING TAO DO Ot 786. 09 RESPIRATORY ABNORM NEC 02/03/2020 KASIE DPM, ANDREA Q Ot 355. 5 TARSAL TUNNEL SYNDROME 02/03/2020 [facility] CHA VILLALPANDO Ot V72.84 EXAM PRE-OPERATIVE NOS 02/03/2020 LUCINA CHA VILLALPANDO Ot 530.10 ESOPHAGITIS NOS 02/03/2020 [facility] CHA VILLALPANDO Ot 553.3 DIAPHRAGMATIC HERNIA 02/03/2020 [facility] CHA VILLALPANDO Ot 787.20 DYSPHAGIA, UNSPECIFIED 02/03/2020 JIMMY KENT DRAFTING LAYOUT WORKER Ot 486 PNEUMONIA, ORGANISM NOS 02/03/2020 JIMMY KENT DRAFTING LAYOUT WORKER Ot 789.00 ABDOMINAL PAIN, UNSPECIFIED SITE 02/03/2020 JIMMY KENT DRAFTING LAYOUT WORKER Ot 959.6 HIP THIGH INJURY NOS 02/03/2020 JIMMY KENT DRAFTING LAYOUT WORKER Ot E000.8 OTHER EXTERNAL CAUSE STATUS 02/03/2020 JIMMY KENT DRAFTING LAYOUT WORKER Ot E849.4 ACCID IN RECREATION AREA 02/03/2020 JIMMY KENT DRAFTING LAYOUT WORKER Ot E888.9 FALL NOS 02/03/2020 [facility], PETRA Raymond Ot 724. 5 BACKACHE NOS 02/03/2020 [place] [facility], PETRA Raymond Ot 786. 50 CHEST PAIN NOS 02/03/2020 [facility], PETRA J Ot 724. 1 PAIN IN THORACIC SPINE 02/03/2020 [facility], PETRA Raymond Ot 786. 50 CHEST PAIN NOS 02/03/2020 [place] DO, RUDOLPH Raymond Ot 414.00 CORON ATHEROSCLER NOS TYPE VESSEL, NATIV 02/03/2020 KENT DO, RUDOLPH Raymond Ot 786.50 CHEST PAIN NOS 02/03/2020 KENT DO, RUDOLPH Raymond Ot I25.10 ATHSCL HEART DISEASE OF [place] CORONARY 02/03/2020 YOLI VILLALPANDO, RUDOLPH Raymond Ot R07.9 CHEST PAIN, UNSPECIFIED 02/03/2020 [facility] DO, DIANNTIE Ot R10.9 UNSPECIFIED ABDOMINAL PAIN 02/03/2020 [facility] DO, CHA Ot Z01.818 ENCOUNTER FOR OTHER PREPROCEDURAL EXAMIN 02/03/2020 LUCINACHA DIANA DO Ot 553.20 VENTRAL HERNIA NOS 02/03/2020 [facility], CHA Ot V81.5 SCREEN FOR NEPHROPATHY 02/03/2020 LUKASZ CROWLEY APRN Ot F17.210 NICOTINE DEPENDENCE, CIGARETTES, UNCOMPL 02/03/2020 LUKASZ CROWLEY APRN Ot J44.9 CHRONIC OBSTRUCTIVE PULMONARY DISEASE, U 02/03/2020 LUKASZ CROWLEY APRN Ot R06.00 DYSPNEA, UNSPECIFIED 02/03/2020 FRANDY DE [place] ROSA Ot E11.9 TYPE 2 DIABETES MELLITUS WITHOUT COMPLIC 02/03/2020 FRANDY [place] Ot E78.2 MIXED HYPERLIPIDEMIA 02/03/2020 FRANDY DE [place] ROSA Ot I10 ESSENTIAL (PRIMARY) HYPERTENSION 02/03/2020 FRANDY DE [place] ROSA Ot I25.10 ATHSCL HEART DISEASE OF [place] CORONARY 02/03/2020 FRANDY DE [place] ROSA Ot E11.9 TYPE 2 DIABETES MELLITUS WITHOUT COMPLIC 02/03/2020 FRANDY [place] ROSA Ot E78.2 MIXED HYPERLIPIDEMIA 02/03/2020 FRANDY DE LA ROSA Ot I10 ESSENTIAL (PRIMARY) HYPERTENSION 02/03/2020 FRANDY DE [place] ROSA Ot I25.10 ATHSCL HEART DISEASE OF [place] CORONARY 02/03/2020 LUKASZ CROWLEY APRN Ot F17.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, UNSPECIFIED, UNCOMP 02/03/2020 LUKASZ CROWLEY APRN Ot J44.9 CHRONIC OBSTRUCTIVE PULMONARY DISEASE, U 02/03/2020 RUDOLPH KENT DO, Ot M94.8X6 OTHER SPECIFIED DISORDERS OF [place]ART[place], 02/03/2020 RUDOLPH KENT DO, Ot S83.242A OTH TEAR OF MEDIAL MENISCUS, CURRENT INJ 02/03/2020 RUDOLPH KENT DO, Ot S83.282A OTH TEAR OF LAT MENSC, CURRENT INJURY, L 02/03/2020 RUDOLPH KENT DO, Ot X58.XXXA EXPOSURE TO OTHER SPECIFIED FACTORS, INI 02/03/2020 RUDOLPH KENT DO, Ot Y99.8 OTHER EXTERNAL CAUSE STATUS 02/03/2020 RUDOLPH KENT DO, Ot Z12.31 ENCNTR SCREEN MAMMOGRAM FOR MALIGNANT NE 02/03/2020 RUDOLPH KENT DO, Ot M40.209 UNSPECIFIED KYPHOSIS, SITE UNSPECIFIED 02/03/2020 RUDOLPH KENT DO, Ot M85.852 OTH DISRD OF BONE DENSITY AND STRUCTURE, 02/03/2020 RUDOLPH KENT DO, Ot Z78.0 ASYMPTOMATIC MENOPAUSAL STATE 02/03/2020 EARNESTINE ALEXANDRE, RAY Davis Ot L98 .9 DISORDER OF THE SKIN AND SUBCUTANEOUS TI 02/03/2020 RUDOLPH KENT DO, Ot M77.32 CALCANEAL SPUR, LEFT FOOT 02/03/2020 RUDOLPH KENT DO, Ot S79.912A UNSPECIFIED INJURY OF LEFT HIP, INITIAL 02/03/2020 RUDOLPH KENT DO, Ot W19.XXXA UNSPECIFIED FALL, INITIAL ENCOUNTER 02/03/2020 RUDOLPH KENT DO, Ot F09 UNSP MENTAL DISORDER DUE TO KNOWN PHYSIO 02/03/2020 RUDOLPH KENT DO, Ot G43.909 MIGRAINE, UNSP, NOT INTRACTABLE, WITHOUT 02/03/2020 KENT DO, RUDOLPH Raymond Ot W19.XXXA UNSPECIFIED FALL, INITIAL ENCOUNTER 02/03/2020 YOLI VILLALPANDO, RUDOLPH Raymond Ot M25.78 OSTEOPHYTE, VERTEBRAE 02/03/2020 KENT DO, RUDOLPH Raymond Ot M43.16 SPONDYLOLISTHESIS, LUMBAR REGION 02/03/2020 KENT DO, RUDOLPH Raymond Ot M46.86 OTHER SPECIFIED INFLAMMATORY SPONDYLOPAT 02/03/2020 KENT DO, RUDOLPH Raymond Ot M47.27 OTHER SPONDYLOSIS WITH RADICULOPATHY, CATHLEEN 02/03/2020 KENT DO, RUDOLPH Raymond Ot M48.061 SPINAL STENOSIS, LUMBAR REGION WITHOUT N 02/03/2020 KENT DO, RUDOLPH Raymond Ot M51.16 INTERVERTEBRAL DISC DISORDERS W RADICULO 02/03/2020 KENT DO, RUDOLPH Raymond Ot M99.73 CONN TISS AND DISC STENOS OF INTVRT FORA 02/03/2020 KENT DO, RUDOLPH Raymond Ot S99.912A UNSPECIFIED INJURY OF LEFT ANKLE, INITIA 02/03/2020 JUAN LICONA MD Ot E11. 51 TYPE 2 DIABETES W DIABETIC PERIPHERAL AN 02/03/2020 JUAN LICONA MD Ot E78. 2 MIXED HYPERLIPIDEMIA 02/03/2020 JUAN LICONA MD Ot R06. 09 OTHER FORMS OF DYSPNEA 02/03/2020 JUAN LICONA MD Ot R07. 89 OTHER CHEST PAIN 02/03/2020 JUAN LICONA MD Ot E11. 51 TYPE 2 DIABETES W DIABETIC PERIPHERAL AN 02/03/2020 JUAN LICONA MD Ot E78. 2 MIXED HYPERLIPIDEMIA 02/03/2020 JUAN LICONA MD Ot R06. 09 OTHER FORMS OF DYSPNEA 02/03/2020 JUAN LICONA MD Ot R07. 89 OTHER CHEST PAIN 02/03/2020 LUKASZ CROWLEY APRN Ot F12.10 CANNABIS ABUSE, UNCOMPLICATED 02/03/2020 LUKASZ CROWLEY APRN Ot F17.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, UNSPECIFIED, UNCOMP 02/03/2020 LUKASZ CROWLEY APRN Ot G47.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 02/03/2020 LUKASZ CROWLEY APRN Ot J30.9 ALLERGIC RHINITIS, UNSPECIFIED 02/03/2020 LUKASZ CROWLEY PRINTMAKER Ot J42 UNSPECIFIED CHRONIC BRONCHITIS 02/03/2020 LUKASZ CROWLEY PRINTMAKER Ot J44.9 CHRONIC OBSTRUCTIVE PULMONARY DISEASE, U 02/03/2020 CARLINE LUKASZ Jung PRINTMAKER Ot Z99.81 DEPENDENCE ON SUPPLEMENTAL OXYGEN 02/03/2020 LUKASZ CROWLEY PRINTMAKER Ot F12.10 CANNABIS ABUSE, UNCOMPLICATED 02/03/2020 LUKASZ CROWLEY PRINTMAKER Ot F17.210 NICOTINE DEPENDENCE, CIGARETTES, UNCOMPL 02/03/2020 CARLINE, LUKASZ E PRINTMAKER Ot G47.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 02/03/2020 LUKASZ CROWLEY PRINTMAKER Ot J18.1 LOBAR PNEUMONIA, UNSPECIFIED ORGANISM 02/03/2020 LUKASZ CROWLEY PRINTMAKER Ot J30.9 ALLERGIC RHINITIS, UNSPECIFIED 02/03/2020 LUKASZ CROWLEY PRINTMAKER Ot J44.9 CHRONIC OBSTRUCTIVE PULMONARY DISEASE, U 02/03/2020 LUKASZ CROWLEY PRINTMAKER Ot Z12.2 ENCNTR SCREEN FOR MALIGNANT NEOPLASM OF 02/03/2020 LUKASZ CROWLEY PRINTMAKER Ot Z99.81 DEPENDENCE ON SUPPLEMENTAL OXYGEN 02/03/2020 RUDOLPH KENT DO Ot Z45.2 ENCOUNTER FOR ADJUSTMENT AND MANAGEMENT 02/03/2020 SARAH ROBERTSON Ot 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, CERVICOTHORACIC REGIO 02/03/2020 SARAH ROBERTSON Ot M48.02 SPINAL STENOSIS, CERVICAL REGION 02/03/2020 SARAH ROBERTSON Ot M50.11 CERV DISC DISORDER WITH RADICULOPATHY, H 02/03/2020 SARAH ROBERTSON Ot M50.121 CERVICAL DISC DISORDER AT C4-C5 LEVEL [place] 02/03/2020 CHA VERDUGO DO Ot 879.2 OPN WND ANTERIOR ABDOMEN 02/03/2020 CHA VERDUGO DO Ot E000.8 OTHER EXTERNAL CAUSE STATUS 02/03/2020 CHA VERDUGO DO Ot E928.9 ACCIDENT NOS 02/03/2020 LIVAN ALEXANDRE, JUAN Raymond Ot 272. 4 HYPERLIPIDEMIA NEC/NOS 02/03/2020 JUAN LICONA MD Ot 397. 0 TRICUSPID VALVE DISEASE 02/03/2020 JUAN LICONA MD Ot 424. 0 MITRAL VALVE DISORDER 02/03/2020 JUAN LICONA MD Ot 786. 09 RESPIRATORY ABNORM NEC 02/03/2020 JUAN LICONA MD Ot 786. 50 CHEST PAIN NOS 02/03/2020 JUAN LICONA MD Ot V46. 2 SUPPLEMENTAL OXYGEN 02/03/2020 JUAN LICONA MD Ot 272. 4 HYPERLIPIDEMIA NEC/NOS 02/03/2020 JUAN LICONA MD Ot 786. 09 RESPIRATORY ABNORM NEC 02/03/2020 JUAN LICONA MD Ot 786. 50 CHEST PAIN NOS 02/03/2020 JUAN LICONA MD Ot V46. 2 SUPPLEMENTAL OXYGEN 02/03/2020 RUDOLPH KENT DO Ot V76.12 OTH SCREEN MAMMO-MALIGN NEOPLASM OF [place] 02/03/2020 QING TAO DO Ot 305. 1 TOBACCO USE DISORDER 02/03/2020 QING TAO DO Ot 496 CHR AIRWAY OBSTRUCT NEC 02/03/2020 QING TAO DO Ot 786. 09 RESPIRATORY ABNORM NEC 02/03/2020 KASIE DPM, ANDREA Q Ot 355. 5 TARSAL TUNNEL SYNDROME 02/03/2020 CHA VERDUGO DO Ot V72.84 EXAM PRE-OPERATIVE NOS 02/03/2020 CHA VERDUGO DO Ot 530.10 ESOPHAGITIS NOS 02/03/2020 CHA VERDUGO DO Ot 553.3 DIAPHRAGMATIC HERNIA 02/03/2020 CHA VERDUGO DO Ot 787.20 DYSPHAGIA, UNSPECIFIED 02/03/2020 JIMMY KENT DRAFTING LAYOUT WORKER Ot 486 PNEUMONIA, ORGANISM NOS 02/03/2020 JIMMY KENT DRAFTING LAYOUT WORKER Ot 789.00 ABDOMINAL PAIN, UNSPECIFIED SITE 02/03/2020 JIMMY KENT DRAFTING LAYOUT WORKER Ot 959.6 HIP THIGH INJURY NOS 02/03/2020 JIMMY KENT DRAFTING LAYOUT WORKER Ot E000.8 OTHER EXTERNAL CAUSE STATUS 02/03/2020 JIMMY KENT DRAFTING LAYOUT WORKER Ot E849.4 ACCID IN RECREATION AREA 02/03/2020 JIMMY KENT DRAFTING LAYOUT WORKER Ot E888.9 FALL NOS 02/03/2020 PETRA KEARNEY DC Ot 724. 5 BACKACHE NOS 02/03/2020 [facility], PETRA Raymond Ot 786. 50 CHEST PAIN NOS 02/03/2020 [place], PETRA Raymond Ot 724. 1 PAIN IN THORACIC SPINE 02/03/2020 [place], PETRA Raymond Ot 786. 50 CHEST PAIN NOS 02/03/2020 [place] DO, RUDOLPH Raymond Ot 414.00 CORON ATHEROSCLER NOS TYPE VESSEL, NATIV 02/03/2020 KENT DO, RUDOLPH Raymond Ot 786.50 CHEST PAIN NOS 02/03/2020 KENT DO, RUDOLPH Raymond Ot I25.10 ATHSCL HEART DISEASE OF [place] CORONARY 02/03/2020 [place] DO, RUDOLPH Raymond Ot R07.9 CHEST PAIN, UNSPECIFIED 02/03/2020 [facility], CHA Ot R10.9 UNSPECIFIED ABDOMINAL PAIN 02/03/2020 [facility], CHA Ot Z01.818 ENCOUNTER FOR OTHER PREPROCEDURAL EXAMIN 02/03/2020 [facility], CHA Ot 553.20 VENTRAL HERNIA NOS 02/03/2020 [facility], CHA Ot V81.5 SCREEN FOR NEPHROPATHY 02/03/2020 LUKASZ CROWLEY APRN Ot F17.210 NICOTINE DEPENDENCE, CIGARETTES, UNCOMPL 02/03/2020 LUKASZ CROWLEY APRN Ot J44.9 CHRONIC OBSTRUCTIVE PULMONARY DISEASE, U 02/03/2020 LUKASZ CROWLEY APRN Ot R06.00 DYSPNEA, UNSPECIFIED 02/03/2020 FRANDY [place] [facility] Ot E11.9 TYPE 2 DIABETES MELLITUS WITHOUT COMPLIC 02/03/2020 FRANYD DE [place] ROSA Ot E78.2 MIXED HYPERLIPIDEMIA 02/03/2020 FRANDY [place] Ot I10 ESSENTIAL (PRIMARY) HYPERTENSION 02/03/2020 FRANDY [place] [facility] Ot I25.10 ATHSCL HEART DISEASE OF [place] CORONARY 02/03/2020 FRANDY [place] [facility] Ot E11.9 TYPE 2 DIABETES MELLITUS WITHOUT COMPLIC 02/03/2020 FRANDY [place] [facility]A Ot E78.2 MIXED HYPERLIPIDEMIA 02/03/2020 FRANDY [facility] [place] [facility] Ot I10 ESSENTIAL (PRIMARY) HYPERTENSION 02/03/2020 FRANDY [place] [facility] Ot I25.10 ATHSCL HEART DISEASE OF [place] CORONARY 02/03/2020 LUKASZ CROWLEY APRN Ot F17.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, UNSPECIFIED, UNCOMP 02/03/2020 LUKASZ CROWLEY APRN Ot J44.9 CHRONIC OBSTRUCTIVE PULMONARY DISEASE, U 02/03/2020 RUDOLPH KENT DO, Ot M94.8X6 OTHER SPECIFIED DISORDERS OF [place]ART[place], 02/03/2020 RUDOLPH KENT DO, Ot S83.242A OTH TEAR OF MEDIAL MENISCUS, CURRENT INJ 02/03/2020 YOLI VILLALPANDO, RUDOLPH Raymond Ot S83.282A OTH TEAR OF LAT MENSC, CURRENT INJURY, L 02/03/2020 RUDOLPH KENT DO, Ot X58.XXXA EXPOSURE TO OTHER SPECIFIED FACTORS, INI 02/03/2020 RUDOLPH KENT DO, Ot Y99.8 OTHER EXTERNAL CAUSE STATUS 02/03/2020 RUDOLPH KENT DO, Ot Z12.31 ENCNTR SCREEN MAMMOGRAM FOR MALIGNANT NE 02/03/2020 RUDOLPH KENT DO, Ot M40.209 UNSPECIFIED KYPHOSIS, SITE UNSPECIFIED 02/03/2020 RUDOLPH KENT DO, Ot M85.852 OT DISRD OF BONE DENSITY AND STRUCTURE, 02/03/2020 RUDOLPH KENT DO, Ot Z78.0 ASYMPTOMATIC MENOPAUSAL STATE 02/03/2020 EARNESTINE ALEXANDRE, RAY Davis Ot L98 .9 DISORDER OF THE SKIN AND SUBCUTANEOUS TI 02/03/2020 RUDOLPH KENT DO, Ot M77.32 CALCANEAL SPUR, LEFT FOOT 02/03/2020 RUDOLPH KENT DO, Ot S79.912A UNSPECIFIED INJURY OF LEFT HIP, INITIAL 02/03/2020 RUDOLPH KENT DO, Ot W19.XXXA UNSPECIFIED FALL, INITIAL ENCOUNTER 02/03/2020 RUDOLPH KENT DO Ot F09 UNSP MENTAL DISORDER DUE TO KNOWN PHYSIO 02/03/2020 RUDOLPH KENT DO, Ot G43.909 MIGRAINE, UNSP, NOT INTRACTABLE, WITHOUT 02/03/2020 RUDOLPH KENT DO, Ot W19.XXXA UNSPECIFIED FALL, INITIAL ENCOUNTER 02/03/2020 RUDOLPH KENT DO, Ot M25.78 OSTEOPHYTE, VERTEBRAE 02/03/2020 RUDOLPH KENT DO, Ot M43.16 SPONDYLOLISTHESIS, LUMBAR REGION 02/03/2020 KENT DO, RUDOLPH Raymond Ot M46.86 OTHER SPECIFIED INFLAMMATORY SPONDYLOPAT 02/03/2020 KENT DO, RUDOLPH Raymond Ot M47.27 OTHER SPONDYLOSIS WITH RADICULOPATHY, CATHLEEN 02/03/2020 KENT DO, RUDOLPH Raymond Ot M48.061 SPINAL STENOSIS, LUMBAR REGION WITHOUT N 02/03/2020 KENT DO, RUDOLPH Raymond Ot M51.16 INTERVERTEBRAL DISC DISORDERS W RADICULO 02/03/2020 KENT DO, RUDOLPH Raymond Ot M99.73 CONN TISS AND DISC STENOS OF INTVRT FORA 02/03/2020 KENT DO, RUDOLPH Raymond Ot S99.912A UNSPECIFIED INJURY OF LEFT ANKLE, INITIA 02/03/2020 JUAN LICONA MD Ot E11. 51 TYPE 2 DIABETES W DIABETIC PERIPHERAL AN 02/03/2020 JUAN LICONA MD Ot E78. 2 MIXED HYPERLIPIDEMIA 02/03/2020 JUAN LICONA MD Ot R06. 09 OTHER FORMS OF DYSPNEA 02/03/2020 JUAN LICONA MD Ot R07. 89 OTHER CHEST PAIN 02/03/2020 JUAN LICONA MD Ot E11. 51 TYPE 2 DIABETES W DIABETIC PERIPHERAL AN 02/03/2020 JUAN LICONA MD Ot E78. 2 MIXED HYPERLIPIDEMIA 02/03/2020 JUAN LICONA MD Ot R06. 09 OTHER FORMS OF DYSPNEA 02/03/2020 JUAN LICONA MD Ot R07. 89 OTHER CHEST PAIN 02/03/2020 LUKASZ CROWLEY APRN Ot F12.10 CANNABIS ABUSE, UNCOMPLICATED 02/03/2020 LUKASZ CROWLEY APRN Ot F17.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, UNSPECIFIED, UNCOMP 02/03/2020 LUKASZ CROWLEY APRN Ot G47.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 02/03/2020 LUKASZ CROWLEY APRN Ot J30.9 ALLERGIC RHINITIS, UNSPECIFIED 02/03/2020 LUKASZ CROWLEY APRN Ot J42 UNSPECIFIED CHRONIC BRONCHITIS 02/03/2020 LUKASZ CROWLEY APRN Ot J44.9 CHRONIC OBSTRUCTIVE PULMONARY DISEASE, U 02/03/2020 LUKASZ CROWLEY APRN Ot Z99.81 DEPENDENCE ON SUPPLEMENTAL OXYGEN 02/03/2020 CARLINE, LUKASZ E PRINTMAKER Ot F12.10 CANNABIS ABUSE, UNCOMPLICATED 02/03/2020 LUKASZ CROWLEY PRINTMAKER Ot F17.210 NICOTINE DEPENDENCE, CIGARETTES, UNCOMPL 02/03/2020 LUKASZ CROWLEY PRINTMAKER Ot G47.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 02/03/2020 LUKASZ CROWLEY PRINTMAKER Ot J18.1 LOBAR PNEUMONIA, UNSPECIFIED ORGANISM 02/03/2020 LUKASZ CROWLEY APRN Ot J30.9 ALLERGIC RHINITIS, UNSPECIFIED 02/03/2020 LUKASZ CROWLEY PRINTMAKER Ot J44.9 CHRONIC OBSTRUCTIVE PULMONARY DISEASE, U 02/03/2020 LUKASZ CROWLEY APRN Ot Z12.2 ENCNTR SCREEN FOR MALIGNANT NEOPLASM OF 02/03/2020 LUKASZ CROWLEY APRN Ot Z99.81 DEPENDENCE ON SUPPLEMENTAL OXYGEN 02/03/2020 RUDOLPH KENT DO Ot Z45.2 ENCOUNTER FOR ADJUSTMENT AND MANAGEMENT 02/03/2020 SARAH ROBERTSON Ot 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, CERVICOTHORACIC REGIO 02/03/2020 SARAH ROBERTSON Ot M48.02 SPINAL STENOSIS, CERVICAL REGION 02/03/2020 SARAH ROBERTSON Ot M50.11 CERV DISC DISORDER WITH RADICULOPATHY, H 02/03/2020 SARAH ROBERTSON Ot M50.121 CERVICAL DISC DISORDER AT C4-C5 LEVEL [place] 02/04/2020 LUCINA CHA VILLALPANDO Ot 879.2 OPN WND ANTERIOR ABDOMEN 02/04/[address] [facility] OTHER EXTERNAL CAUSE STATUS 02/04/2020 [facility] Ot E928.9 ACCIDENT NOS 02/04/2020 JUAN LICONA MD Ot 272. 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 0 MITRAL VALVE DISORDER 02/04/2020 JUAN LICONA MD Ot 786. 09 RESPIRATORY ABNORM NEC 02/04/2020 JUAN LICONA MD Ot 786. 50 CHEST PAIN NOS 02/04/2020 JUAN LICONA MD Ot V46. 2 SUPPLEMENTAL OXYGEN 02/04/2020 LIVAN MD, BASHAR J Ot 272. 4 HYPERLIPIDEMIA NEC/NOS 02/04/2020 JUAN LICONA MD Ot 786. 09 RESPIRATORY ABNORM NEC 02/04/2020 JUAN LICONA MD Ot 786. 50 CHEST PAIN NOS 02/04/2020 JUAN LICONA MD Ot V46. 2 SUPPLEMENTAL OXYGEN 02/04/2020 RUDOLPH KENT DO Ot V76.12 OTH SCREEN MAMMO-MALIGN NEOPLASM OF [place] 02/04/2020 QING TAO DO Ot 305. 1 TOBACCO USE DISORDER 02/04/2020 QING TAO DO Ot 496 CHR AIRWAY OBSTRUCT NEC 02/04/2020 QING TAO DO Ot 786. 09 RESPIRATORY ABNORM NEC 02/04/2020 KASIE DPM, ANDREA Q Ot 355. 5 TARSAL TUNNEL SYNDROME 02/04/2020 CHA VERDUGO DO Ot V72.84 EXAM PRE-OPERATIVE NOS 02/04/2020 LUCINA CHA VILLALPANDO Ot 530.10 ESOPHAGITIS NOS 02/04/2020 LUCINA CHA VILLALPANDO Ot 553.3 DIAPHRAGMATIC HERNIA 02/04/2020 [facility] DIANN VILLALPANDOTIE Ot 787.20 DYSPHAGIA, UNSPECIFIED 02/04/2020 ADAMA KENTIA L DRAFTING LAYOUT WORKER Ot 486 PNEUMONIA, ORGANISM NOS 02/04/2020 JIMMY KENT DRAFTING LAYOUT WORKER Ot 789.00 ABDOMINAL PAIN, UNSPECIFIED SITE 02/04/2020 ADAMA KENTIA L DRAFTING LAYOUT WORKER Ot 959.6 HIP THIGH INJURY NOS 02/04/2020 ADAMA KENTIA L DRAFTING LAYOUT WORKER Ot E000.8 OTHER EXTERNAL CAUSE STATUS 02/04/2020 JIMMY KENT L DRAFTING LAYOUT WORKER Ot E849.4 ACCID IN RECREATION AREA 02/04/2020 CHIP KENTRICIA L DRAFTING LAYOUT WORKER Ot E888.9 FALL NOS 02/04/2020 CAIO KRISHAN, PETRA Raymond Ot 724. 5 BACKACHE NOS 02/04/2020 [place] KRISHAN, PETRA Raymond Ot 786. 50 CHEST PAIN NOS 02/04/2020 [place] PETRA NICKERSON Ot 724. 1 PAIN IN THORACIC SPINE 02/04/2020 CAIO PETRA NICKERSON Ot 786. 50 CHEST PAIN NOS 02/04/2020 RUDOLPH KENT DO Ot 414.00 CORON ATHEROSCLER NOS TYPE VESSEL, NATIV 02/04/2020 KENTRUDOLPH BURNHAM DO Ot 786.50 CHEST PAIN NOS 02/04/2020 KENTRUDOLPH BURNHAM DO Ot I25.10 ATHSCL HEART DISEASE OF [place] CORONARY 02/04/2020 KENT , RUDOLPH Raymond Ot R07.9 CHEST PAIN, UNSPECIFIED 02/04/2020 [facility], DIANNTIE Ot R10.9 UNSPECIFIED ABDOMINAL PAIN 02/04/2020 [facility], CHA Ot Z01.818 ENCOUNTER FOR OTHER PREPROCEDURAL EXAMIN 02/04/2020 [facility], DIANNTIE Ot 553.20 VENTRAL HERNIA NOS 02/04/2020 [facility]5 SCREEN FOR NEPHROPATHY 02/04/2020 LUKASZ CROWLEY APRN Ot F17.210 NICOTINE DEPENDENCE, CIGARETTES, UNCOMPL 02/04/2020 LUKASZ CROWLEY APRN Ot J44.9 CHRONIC OBSTRUCTIVE PULMONARY DISEASE, U 02/04/2020 LUKASZ CROWLEY APRN Ot R06.00 DYSPNEA, UNSPECIFIED 02/04/2020 FRANDY DE [place] ROSA Ot E11.9 TYPE 2 DIABETES MELLITUS WITHOUT COMPLIC 02/04/2020 FRANDY [place]A Ot E78.2 MIXED HYPERLIPIDEMIA 02/04/2020 FRANDY DE [place] ROSA Ot I10 ESSENTIAL (PRIMARY) HYPERTENSION 02/04/2020 FRANDY DE [place] ROSA Ot I25.10 ATHSCL HEART DISEASE OF [place] CORONARY 02/04/2020 FRANDY DE LA ROSA Ot E11.9 TYPE 2 DIABETES MELLITUS WITHOUT COMPLIC 02/04/2020 FRANDY DE [place] ROSA Ot E78.2 MIXED HYPERLIPIDEMIA 02/04/2020 FRANDY DE LA ROSA Ot I10 ESSENTIAL (PRIMARY) HYPERTENSION 02/04/2020 FRANDY DE LA ROSA Ot I25.10 ATHSCL HEART DISEASE OF [place] CORONARY 02/04/2020 LUKASZ CROWLEY APRN Ot F17.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, UNSPECIFIED, UNCOMP 02/04/2020 LUKASZ CROWLEY APRN Ot J44.9 CHRONIC OBSTRUCTIVE PULMONARY DISEASE, U 02/04/2020 KENT RUDOLPH VILLALPANDO Ot M94.8X6 OTHER SPECIFIED DISORDERS OF [place], 02/04/2020 YOLI VILLALPANDO, RUDOLPH Raymond Ot S83.242A OTH TEAR OF MEDIAL MENISCUS, CURRENT INJ 02/04/2020 YOLI VILLALPANDO, RUDOLPH Raymond Ot S83.282A OTH TEAR OF LAT MENSC, CURRENT INJURY, L 02/04/2020 YOLI VILLALPANDO, RUDOLPH Raymond Ot X58.XXXA EXPOSURE TO OTHER SPECIFIED FACTORS, INI 02/04/2020 YOLI VILLALPANDO, RUDOLPH Raymond Ot Y99.8 OTHER EXTERNAL CAUSE STATUS 02/04/2020 YOLI VILLALPANDO, RUDOLPH Raymond Ot Z12.31 ENCNTR SCREEN MAMMOGRAM FOR MALIGNANT NE 02/04/2020 YOLI VILLALPANDO, RUDOLPH Raymond Ot M40.209 UNSPECIFIED KYPHOSIS, SITE UNSPECIFIED 02/04/2020 RUDOLPH KENT DO, Ot M85.852 OT DISRD OF BONE DENSITY AND STRUCTURE, 02/04/2020 YOLI VILLALPANDO, RUDOLPH Raymond Ot Z78.0 ASYMPTOMATIC MENOPAUSAL STATE 02/04/2020 EARNESTINE ALEXANDRE, RAY Davis Ot L98 .9 DISORDER OF THE SKIN AND SUBCUTANEOUS TI 02/04/2020 YOLI VILLALPANDO, RUDOLPH Raymond Ot M77.32 CALCANEAL SPUR, LEFT FOOT 02/04/2020 YOLI VILLALPANDO, RUDOLPH Raymond Ot S79.912A UNSPECIFIED INJURY OF LEFT HIP, INITIAL 02/04/2020 RUDOLPH KENT DO, Ot W19.XXXA UNSPECIFIED FALL, INITIAL ENCOUNTER 02/04/2020 YOLI VILLALPANDO, RUDOLPH Raymond Ot F09 UNSP MENTAL DISORDER DUE TO KNOWN PHYSIO 02/04/2020 YOLI VILLALPANDO, RUDOLPH Raymond Ot G43.909 MIGRAINE, UNSP, NOT INTRACTABLE, WITHOUT 02/04/2020 KENT , RUDOLPH Raymond Ot W19.XXXA UNSPECIFIED FALL, INITIAL ENCOUNTER 02/04/2020 YOLI VILLALPANDO, RUDOLPH Raymond Ot M25.78 OSTEOPHYTE, VERTEBRAE 02/04/2020 YOLI VILLALPANDO, RUDOLPH Raymond Ot M43.16 SPONDYLOLISTHESIS, LUMBAR REGION 02/04/2020 YOLI VILLALPANDO, RUDOLPH Raymond Ot M46.86 OTHER SPECIFIED INFLAMMATORY SPONDYLOPAT 02/04/2020 YOLI VILLALPANDO, RUDOLPH Raymond Ot M47.27 OTHER SPONDYLOSIS WITH RADICULOPATHY, CATHLEEN 02/04/2020 YOLI VILLALPANDO, RUDOLPH Raymond Ot M48.061 SPINAL STENOSIS, LUMBAR REGION WITHOUT N 02/04/2020 RUDOLPH KENT DO Ot M51.16 INTERVERTEBRAL DISC DISORDERS W RADICULO 02/04/2020 RUDOLPH KENT DO Ot M99.73 CONN TISS AND DISC STENOS OF INTVRT FORA 02/04/2020 RUDOLPH KENT DO Ot S99.912A UNSPECIFIED INJURY OF LEFT ANKLE, INITIA 02/04/2020 LIVAN ALEXANDRE, JUAN Raymond Ot E11. 51 TYPE 2 DIABETES W DIABETIC PERIPHERAL AN 02/04/2020 LIVAN ALEXANDRE, JUAN Raymond Ot E78. 2 MIXED HYPERLIPIDEMIA 02/04/2020 LIVAN ALEXANDRE, JUAN Raymond Ot R06. 09 OTHER FORMS OF DYSPNEA 02/04/2020 LIVAN ALEXANDRE, JUAN Raymond Ot R07. 89 OTHER CHEST PAIN 02/04/2020 LIVAN ALEXANDRE, JUAN Raymond Ot E11. 51 TYPE 2 DIABETES W DIABETIC PERIPHERAL AN 02/04/2020 LIVAN ALEXANDRE, JUAN Raymond Ot E78. 2 MIXED HYPERLIPIDEMIA 02/04/2020 LIVAN ALEXANDRE, JUAN Raymond Ot R06. 09 OTHER FORMS OF DYSPNEA 02/04/2020 LIVAN ALEXANDRE, JUAN Raymond Ot R07. 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, UNSPECIFIED, UNCOMP 02/04/2020 CARMELINA CROWLEYINE E PRINTMAKER Ot G47.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 02/04/2020 LUKASZ CROWLEY PRINTMAKER Ot J30.9 ALLERGIC RHINITIS, UNSPECIFIED 02/04/2020 LUKASZ CROWLEY E PRINTMAKER Ot J42 UNSPECIFIED CHRONIC BRONCHITIS 02/04/2020 LUKASZ CROWLEY E PRINTMAKER Ot J44.9 CHRONIC OBSTRUCTIVE PULMONARY DISEASE, U 02/04/2020 CARMELINA CROWLEYINE E PRINTMAKER Ot Z99.81 DEPENDENCE ON SUPPLEMENTAL OXYGEN 02/04/2020 LUKASZ CROWLEY E PRINTMAKER Ot F12.10 CANNABIS ABUSE, UNCOMPLICATED 02/04/2020 CARMELINA CROWLEYINE E PRINTMAKER Ot F17.210 NICOTINE DEPENDENCE, CIGARETTES, UNCOMPL 02/04/2020 CARMELINA CROWLEYINE E PRINTMAKER Ot G47.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 02/04/2020 CARLINE, LUKASZ E PRINTMAKER Ot J18.1 LOBAR PNEUMONIA, UNSPECIFIED ORGANISM 02/04/2020 LUKASZ CROWLEY APRN Ot J30.9 ALLERGIC RHINITIS, UNSPECIFIED 02/04/2020 LUKASZ CROWLEY APRN Ot J44.9 CHRONIC OBSTRUCTIVE PULMONARY DISEASE, U 02/04/2020 LKUASZ CROWLEY APRN Ot Z12.2 ENCNTR SCREEN FOR MALIGNANT NEOPLASM OF 02/04/2020 LUKASZ CROWLEY APRN Ot Z99.81 DEPENDENCE ON SUPPLEMENTAL OXYGEN 02/04/2020 RUDOLPH KENT DO Ot Z45.2 ENCOUNTER FOR ADJUSTMENT AND MANAGEMENT 02/04/2020 SARAH ROBERTSON Ot 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, CERVICOTHORACIC REGIO 02/04/2020 SARAH ROBERTSON Ot M48.02 SPINAL STENOSIS, CERVICAL REGION 02/04/2020 SARAH ROBERTSON Ot M50.11 CERV DISC DISORDER WITH RADICULOPATHY, H 02/04/2020 SARAH ROBERTSON Ot M50.121 CERVICAL DISC DISORDER AT C4-C5 LEVEL [place] 02/04/2020 ARTEMIO APARICIO MD Ot A41. 9 SEPSIS, UNSPECIFIED ORGANISM 02/04/2020 ARTEMIO APARICIO MD Ot E11. 40 TYPE 2 DIABETES MELLITUS WITH DIABETIC N 02/04/2020 ARTEMIO APARICIO MD Ot E66. 9 OBESITY, UNSPECIFIED 02/04/2020 ARTEMIO APARICIO MD Ot E78. 00 PURE HYPERCHOLESTEROLEMIA, UNSPECIFIED 02/04/2020 ARTEMIO APARICIO MD Ot E87. 5 HYPERKALEMIA 02/04/2020 ARTEMIO APARICIO MD Ot F17.210 NICOTINE DEPENDENCE, CIGARETTES, UNCOMPL 02/04/2020 ARTEMIO APARICIO MD Ot F32. 9 MAJOR DEPRESSIVE DISORDER, SINGLE EPISOD 02/04/2020 ARTEMIO APARICIO MD Ot F41. 9 ANXIETY DISORDER, UNSPECIFIED 02/04/2020 ARTEMIO APARICIO MD Ot I11. 0 HYPERTENSIVE HEART DISEASE WITH HEART FA 02/04/2020 ARTEMIO APARICIO MD Ot I50. 9 HEART FAILURE, UNSPECIFIED 02/04/2020 ARTEMIO APARICIO MD Ot J18. 9 PNEUMONIA, UNSPECIFIED ORGANISM 02/04/2020 ARTEMIO APARICIO MD, Ot J30. 2 OTHER SEASONAL ALLERGIC RHINITIS 02/04/2020 ARTEMIO APARICIO MD, Ot J44. 9 CHRONIC OBSTRUCTIVE PULMONARY DISEASE, U 02/04/2020 ARTEMIO APARICIO MD, Ot J96. 21 ACUTE AND CHRONIC RESPIRATORY FAILURE [place] 02/04/2020 ARTEMIO APARICIO MD, Ot J96. 22 ACUTE AND CHRONIC RESPIRATORY FAILURE WI 02/04/2020 ARTEMIO APARICIO MD, Ot K21. 9 GASTRO-ESOPHAGEAL REFLUX DISEASE WITHOUT 02/04/2020 ARTEMIO APARICIO MD, Ot M19. 91 PRIMARY OSTEOARTHRITIS, UNSPECIFIED SITE 02/04/2020 ARTEMIO APARICIO MD, Ot M54. 9 DORSALGIA, UNSPECIFIED 02/04/2020 ARTEMIO APARICIO MD, Ot M79. 7 FIBROMYALGIA 02/04/2020 ARTEMIO APARICIO MD, Ot N17. 9 ACUTE KIDNEY FAILURE, UNSPECIFIED 02/04/2020 ARTEMIO APARICIO MD, Ot R65. 21 SEVERE SEPSIS WITH SEPTIC SHOCK 02/04/2020 ARTEMIO APARICIO MD Ot Z66 DO NOT RESUSCITATE 02/04/2020 ARTEMIO APARICIO MD, Ot Z68. 33 BODY MASS INDEX (BMI) 33.0-33.9, ADULT 02/04/2020 ARTEMIO APARICIO MD, Ot Z79. 4 ROLE PLAYER (CURRENT) USE OF INSULIN 02/04/2020 ARTEMIO APARICIO MD, Ot Z86. 14 PERSONAL HISTORY OF METHICILLIN RESIS ST 02/04/2020 ARTEMIO APARICIO MD Ot Z95. 5 PRESENCE OF CORONARY ANGIOPLASTY IMPLANT 02/04/2020 ARTEMIO APARICIO MD Ot Z99. 81 DEPENDENCE ON SUPPLEMENTAL OXYGEN 02/04/2020 [facility], CHA Ot 879.2 OPN WND ANTERIOR ABDOMEN 02/04/2020 [facility] , CHA Ot E000.8 OTHER EXTERNAL CAUSE STATUS 02/04/2020 [facility] CHA VILLALPANDO Ot E928.9 ACCIDENT NOS 02/04/2020 JUAN LICONA MD Ot 272. 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 0 MITRAL VALVE DISORDER 02/04/2020 JUAN LICONA MD Ot 786. 09 RESPIRATORY ABNORM NEC 02/04/2020 JUAN LICONA MD Ot 786. 50 CHEST PAIN NOS 02/04/2020 JUAN LICONA MD Ot V46. 2 SUPPLEMENTAL OXYGEN 02/04/2020 JUAN LICONA MD Ot 272. 4 HYPERLIPIDEMIA NEC/NOS 02/04/2020 JUAN LICONA MD Ot 786. 09 RESPIRATORY ABNORM NEC 02/04/2020 JUAN LICONA MD Ot 786. 50 CHEST PAIN NOS 02/04/2020 JUAN LICONA MD Ot V46. 2 SUPPLEMENTAL OXYGEN 02/04/2020 RUDOLPH KENT DO Ot V76.12 OTH SCREEN MAMMO-MALIGN NEOPLASM OF [place] 02/04/2020 QING TAO DO Ot 305. 1 TOBACCO USE DISORDER 02/04/2020 QING TAO DO Ot 496 CHR AIRWAY OBSTRUCT NEC 02/04/2020 QING TAO DO Ot 786. 09 RESPIRATORY ABNORM NEC 02/04/2020 KASIE DPM, ANDREA Q Ot 355. 5 TARSAL TUNNEL SYNDROME 02/04/2020 CHA VERDUGO DO Ot V72.84 EXAM PRE-OPERATIVE NOS 02/04/2020 CHA VERDUGO DO Ot 530.10 ESOPHAGITIS NOS 02/04/2020 CHA VERDUGO DO Ot 553.3 DIAPHRAGMATIC HERNIA 02/04/2020 CHA VERDUGO DO Ot 787.20 DYSPHAGIA, UNSPECIFIED 02/04/2020 JIMMY KENT DRAFTING LAYOUT WORKER Ot 486 PNEUMONIA, ORGANISM NOS 02/04/2020 JIMMY KENT DRAFTING LAYOUT WORKER Ot 789.00 ABDOMINAL PAIN, UNSPECIFIED SITE 02/04/2020 JIMMY KENT DRAFTING LAYOUT WORKER Ot 959.6 HIP THIGH INJURY NOS 02/04/2020 JIMMY KENT DRAFTING LAYOUT WORKER Ot E000.8 OTHER EXTERNAL CAUSE STATUS 02/04/2020 JIMMY KENT DRAFTING LAYOUT WORKER Ot E849.4 ACCID IN RECREATION AREA 02/04/2020 JIMMY KENT DRAFTING LAYOUT WORKER Ot E888.9 FALL NOS 02/04/2020 CAIOJANIYA NICKERSON, PETRA Raymond Ot 724. 5 BACKACHE NOS 02/04/2020 CAIO NICKERSON, PETRA Raymond Ot 786. 50 CHEST PAIN NOS 02/04/2020 [place] DC, PETRA Raymond Ot 724. 1 PAIN IN THORACIC SPINE 02/04/2020 [place] DC, PETRA Raymond Ot 786. 50 CHEST PAIN NOS 02/04/2020 [place] DO, RUDOLPH Raymond Ot 414.00 CORON ATHEROSCLER NOS TYPE VESSEL, NATIV 02/04/2020 KENT DO, RUDOLPH Raymond Ot 786.50 CHEST PAIN NOS 02/04/2020 [place] DO, RUDOLPH Raymond Ot I25.10 ATHSCL HEART DISEASE OF [place] CORONARY 02/04/2020 [place] DO, RUDOLPH Raymond Ot R07.9 CHEST PAIN, UNSPECIFIED 02/04/2020 [facility] DO, CHA Ot R10.9 UNSPECIFIED ABDOMINAL PAIN 02/04/2020 [facility], CHA Ot Z01.818 ENCOUNTER FOR OTHER PREPROCEDURAL EXAMIN 02/04/2020 [facility], CHA Ot 553.20 VENTRAL HERNIA NOS 02/04/2020 [facility], CHA Ot V81.5 SCREEN FOR NEPHROPATHY 02/04/2020 LUKASZ CROWLEY APRN Ot F17.210 NICOTINE DEPENDENCE, CIGARETTES, UNCOMPL 02/04/2020 LUKASZ CROWLEY APRN Ot J44.9 CHRONIC OBSTRUCTIVE PULMONARY DISEASE, U 02/04/2020 LUKASZ CROWLEY APRN Ot R06.00 DYSPNEA, UNSPECIFIED 02/04/2020 FRANDY DE LA ROSA Ot E11.9 TYPE 2 DIABETES MELLITUS WITHOUT COMPLIC 02/04/2020 FRANDY DE LA ROSA Ot E78.2 MIXED HYPERLIPIDEMIA 02/04/2020 FRANDY DE LA ROSA Ot I10 ESSENTIAL (PRIMARY) HYPERTENSION 02/04/2020 FRANDY DE LA ROSA Ot I25.10 ATHSCL HEART DISEASE OF [place] CORONARY 02/04/2020 FRANDY DE LA ROSA Ot E11.9 TYPE 2 DIABETES MELLITUS WITHOUT COMPLIC 02/04/2020 FRANDY DE LA ROSA Ot E78.2 MIXED HYPERLIPIDEMIA 02/04/2020 FRANDY DE LA ROSA Ot I10 ESSENTIAL (PRIMARY) HYPERTENSION 02/04/2020 FRANDY DE LA ROSA Ot I25.10 ATHSCL HEART DISEASE OF [place] CORONARY 02/04/2020 LUKASZ CROWLEY APRN Ot F17.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, UNSPECIFIED, UNCOMP 02/04/2020 LUKASZ CROWLEY APRN Ot J44.9 CHRONIC OBSTRUCTIVE PULMONARY DISEASE, U 02/04/2020 RUDOLPH KENT DO, Ot M94.8X6 OTHER SPECIFIED DISORDERS OF [place], 02/04/2020 RUDOLPH KENT DO, Ot S83.242A OTH TEAR OF MEDIAL MENISCUS, CURRENT INJ 02/04/2020 RUDOLPH KENT DO, Ot S83.282A OTH TEAR OF LAT MENSC, CURRENT INJURY, L 02/04/2020 RUDOLPH KENT DO, Ot X58.XXXA EXPOSURE TO OTHER SPECIFIED FACTORS, INI 02/04/2020 RUDOLPH KENT DO, Ot Y99.8 OTHER EXTERNAL CAUSE STATUS 02/04/2020 RUDOLPH KENT DO, Ot Z12.31 ENCNTR SCREEN MAMMOGRAM FOR MALIGNANT NE 02/04/2020 RUDOLPH KENT DO, Ot M40.209 UNSPECIFIED KYPHOSIS, SITE UNSPECIFIED 02/04/2020 RUDOLPH KENT DO, Ot M85.852 OT DISRD OF BONE DENSITY AND STRUCTURE, 02/04/2020 RUDOLPH KENT DO, Ot Z78.0 ASYMPTOMATIC MENOPAUSAL STATE 02/04/2020 EARNESTINE ALEXANDRE, RAY Davis Ot L98 .9 DISORDER OF THE SKIN AND SUBCUTANEOUS TI 02/04/2020 RUDOLPH KENT DO, Ot M77.32 CALCANEAL SPUR, LEFT FOOT 02/04/2020 RUDOLPH KENT DO, Ot S79.912A UNSPECIFIED INJURY OF LEFT HIP, INITIAL 02/04/2020 RUDOLPH KENT DO, Ot W19.XXXA UNSPECIFIED FALL, INITIAL ENCOUNTER 02/04/2020 RUDOLPH KENT DO Ot F09 UNSP MENTAL DISORDER DUE TO KNOWN PHYSIO 02/04/2020 YOLI VILLALPANDO, RUDOLPH Raymond Ot G43.909 MIGRAINE, UNSP, NOT INTRACTABLE, WITHOUT 02/04/2020 RUDOLPH KENT DO, Ot W19.XXXA UNSPECIFIED FALL, INITIAL ENCOUNTER 02/04/2020 RUDOLPH KENT DO, Ot M25.78 OSTEOPHYTE, VERTEBRAE 02/04/2020 RUDOLPH KENT DO, Ot M43.16 SPONDYLOLISTHESIS, LUMBAR REGION 02/04/2020 KENT DO, RUDOLPH J Ot M46.86 OTHER SPECIFIED INFLAMMATORY SPONDYLOPAT 02/04/2020 KENT DO, RUDOLPH Raymond Ot M47.27 OTHER SPONDYLOSIS WITH RADICULOPATHY, CATHLEEN 02/04/2020 KENT DO, RUDOLPH Raymond Ot M48.061 SPINAL STENOSIS, LUMBAR REGION WITHOUT N 02/04/2020 KENT DO, RUDOLPH Raymond Ot M51.16 INTERVERTEBRAL DISC DISORDERS W RADICULO 02/04/2020 KENT DO, RUDOLPH Raymond Ot M99.73 CONN TISS AND DISC STENOS OF INTVRT FORA 02/04/2020 KENT DO, RUDOLPH Raymond Ot S99.912A UNSPECIFIED INJURY OF LEFT ANKLE, INITIA 02/04/2020 LIVAN ALEXANDRE, JUAN Raymond Ot E11. 51 TYPE 2 DIABETES W DIABETIC PERIPHERAL AN 02/04/2020 JUAN LICONA MD Ot E78. 2 MIXED HYPERLIPIDEMIA 02/04/2020 JUAN LICONA MD Ot R06. 09 OTHER FORMS OF DYSPNEA 02/04/2020 JUAN LICONA MD Ot R07. 89 OTHER CHEST PAIN 02/04/2020 JUAN LICONA MD Ot E11. 51 TYPE 2 DIABETES W DIABETIC PERIPHERAL AN 02/04/2020 LIVAN ALEXANDRE, JUAN Raymond Ot E78. 2 MIXED HYPERLIPIDEMIA 02/04/2020 LIVAN ALEXANDRE, JUAN Raymond Ot R06. 09 OTHER FORMS OF DYSPNEA 02/04/2020 LIVAN ALEXANDRE, JUAN Raymond Ot R07. 89 OTHER CHEST PAIN 02/04/2020 LUKASZ CROWLEY APRN Ot F12.10 CANNABIS ABUSE, UNCOMPLICATED 02/04/2020 LUKASZ CROWLEY PRINTMAKER Ot F17.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, UNSPECIFIED, UNCOMP 02/04/2020 LUKASZ CROWLEY PRINTMAKER Ot G47.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 02/04/2020 LUKASZ CROWLEY APRN Ot J30.9 ALLERGIC RHINITIS, UNSPECIFIED 02/04/2020 LUKASZ CROWLEY APRN Ot J42 UNSPECIFIED CHRONIC BRONCHITIS 02/04/2020 LUKASZ CROWLEY APRN Ot J44.9 CHRONIC OBSTRUCTIVE PULMONARY DISEASE, U 02/04/2020 LUKASZ CROWLEY PRINTMAKER Ot Z99.81 DEPENDENCE ON SUPPLEMENTAL OXYGEN 02/04/2020 LUKASZ CROWLEY PRINTMAKER Ot F12.10 CANNABIS ABUSE, UNCOMPLICATED 02/04/2020 LUKASZ CROWLEY APRN Ot F17.210 NICOTINE DEPENDENCE, CIGARETTES, UNCOMPL 02/04/2020 LUKASZ CROWLEY APRN Ot G47.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 02/04/2020 LUKASZ CROWLEY PRINTMAKER Ot J18.1 LOBAR PNEUMONIA, UNSPECIFIED ORGANISM 02/04/2020 LUKASZ CROWLEY PRINTMAKER Ot J30.9 ALLERGIC RHINITIS, UNSPECIFIED 02/04/2020 LUKASZ CROWLEY APRN Ot J44.9 CHRONIC OBSTRUCTIVE PULMONARY DISEASE, U 02/04/2020 LUKASZ CROWLEY APRN Ot Z12.2 ENCNTR SCREEN FOR MALIGNANT NEOPLASM OF 02/04/2020 LUKASZ CROWLEY APRN Ot Z99.81 DEPENDENCE ON SUPPLEMENTAL OXYGEN 02/04/2020 RUDOLPH KENT DO Ot Z45.2 ENCOUNTER FOR ADJUSTMENT AND MANAGEMENT 02/04/2020 SARAH ROBERTSON Ot 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, CERVICOTHORACIC REGIO 02/04/2020 SARAH ROBERTSON Ot M48.02 SPINAL STENOSIS, CERVICAL REGION 02/04/2020 SARAH ROBERTSONP Ot M50.11 CERV DISC DISORDER WITH RADICULOPATHY, H 02/04/2020 SARAH ROBERTSON Ot M50.121 CERVICAL DISC DISORDER AT C4-C5 LEVEL WI 02/04/2020 ARTEMIO APARICIO MD Ot A41. 9 SEPSIS, UNSPECIFIED ORGANISM 02/04/2020 ARTEMIO APARICIO MD Ot E11. 40 TYPE 2 DIABETES MELLITUS WITH DIABETIC N 02/04/2020 ARTEMIO APARICIO MD Ot E66. 9 OBESITY, UNSPECIFIED 02/04/2020 ARTEMIO APARICIO MD Ot E78. 00 PURE HYPERCHOLESTEROLEMIA, UNSPECIFIED 02/04/2020 ARTEMIO APARICIO MD Ot E87. 5 HYPERKALEMIA 02/04/2020 ARTEMIO APARICIO MD Ot F17.210 NICOTINE DEPENDENCE, CIGARETTES, UNCOMPL 02/04/2020 ARTEMIO APARICIO MD Ot F32. 9 MAJOR DEPRESSIVE DISORDER, SINGLE EPISOD 02/04/2020 ARTEMIO APARICIO MD Ot F41. 9 ANXIETY DISORDER, UNSPECIFIED 02/04/2020 ARTEMIO APARICIO MD Ot I11. 0 HYPERTENSIVE HEART DISEASE WITH HEART FA 02/04/2020 ARTEMIO APARICIO MD Ot I50. 9 HEART FAILURE, UNSPECIFIED 02/04/2020 ARTEMIO APARICIO MD Ot J18. 9 PNEUMONIA, UNSPECIFIED ORGANISM 02/04/2020 ARTEMIO APARICIO MD Ot J30. 2 OTHER SEASONAL ALLERGIC RHINITIS 02/04/2020 ARTEMIO APARICIO MD Ot J44. 9 CHRONIC OBSTRUCTIVE PULMONARY DISEASE, U 02/04/2020 ARTEMIO APARICIO MD Ot J96. 21 ACUTE AND CHRONIC RESPIRATORY FAILURE [place] 02/04/2020 ARTEMIO APARICIO MD, Ot J96. 22 ACUTE AND CHRONIC RESPIRATORY FAILURE WI 02/04/2020 ARTEMIO APARICIO MD, Ot K21. 9 GASTRO-ESOPHAGEAL REFLUX DISEASE WITHOUT 02/04/2020 ARTEMIO APARICIO MD Ot M19. 91 PRIMARY OSTEOARTHRITIS, UNSPECIFIED SITE 02/04/2020 ARTEMIO APARICIO MD, Ot M54. 9 DORSALGIA, UNSPECIFIED 02/04/2020 ARTEMIO APARICIO MD Ot M79. 7 FIBROMYALGIA 02/04/2020 ARTEMIO APARICIO MD, Ot N17. 9 ACUTE KIDNEY FAILURE, UNSPECIFIED 02/04/2020 ARTEMIO APARICIO MD Ot R65. 21 SEVERE SEPSIS WITH SEPTIC SHOCK 02/04/2020 ARTEMIO APARICIO MD Ot Z66 DO NOT RESUSCITATE 02/04/2020 ARTEMIO APARICIO MD, Ot Z68. 33 BODY MASS INDEX (BMI) 33.0-33.9, ADULT 02/04/2020 ARTEMIO APARICIO MD Ot Z79. 4 ROLE PLAYER (CURRENT) USE OF INSULIN 02/04/2020 ARTEMIO APARICIO MD Ot Z86. 14 PERSONAL HISTORY OF METHICILLIN RESIS ST 02/04/2020 ARTEMIO APARICIO MD Ot Z95. 5 PRESENCE OF CORONARY ANGIOPLASTY IMPLANT 02/04/2020 ARTEMIO APARICIO MD Ot Z99. 81 DEPENDENCE ON SUPPLEMENTAL OXYGEN 02/05/2020 ARTEMIO APARICIO MD, Ot A41. 9 SEPSIS, UNSPECIFIED ORGANISM 02/05/2020 ARTEMIO APARICIO MD Ot E11. 40 TYPE 2 DIABETES MELLITUS WITH DIABETIC N 02/05/2020 ARTEMIO APARICIO MD, Ot E66. 9 OBESITY, UNSPECIFIED 02/05/2020 ARTEMIO APARICIO MD Ot E78. 00 PURE HYPERCHOLESTEROLEMIA, UNSPECIFIED 02/05/2020 ARTEMIO APARICIO MD Ot E87. 5 HYPERKALEMIA 02/05/2020 ARTEMIO APARICIO MD Ot F17.210 NICOTINE DEPENDENCE, CIGARETTES, UNCOMPL 02/05/2020 ARTEMIO APARICIO MD Ot F32. 9 MAJOR DEPRESSIVE DISORDER, SINGLE EPISOD 02/05/2020 ARTEMIO APARICIO MD Ot F41. 9 ANXIETY DISORDER, UNSPECIFIED 02/05/2020 ARTEMIO APARICIO MD Ot I11. 0 HYPERTENSIVE HEART DISEASE WITH HEART FA 02/05/2020 ARTEMIO APARICIO MD Ot I50. 9 HEART FAILURE, UNSPECIFIED 02/05/2020 ARTEMIO APARICIO MD Ot J18. 9 PNEUMONIA, UNSPECIFIED ORGANISM 02/05/2020 ARTEMIO APARICIO MD Ot J30. 2 OTHER SEASONAL ALLERGIC RHINITIS 02/05/2020 ARTEMIO APARICIO MD Ot J44. 9 CHRONIC OBSTRUCTIVE PULMONARY DISEASE, U 02/05/2020 ARTEMIO APARICIO MD Ot J96. 21 ACUTE AND CHRONIC RESPIRATORY FAILURE WI 02/05/2020 ARTEMIO APARICIO MD Ot J96. 22 ACUTE AND CHRONIC RESPIRATORY FAILURE WI 02/05/2020 ARTEMIO APARICIO MD Ot K21. 9 GASTRO-ESOPHAGEAL REFLUX DISEASE WITHOUT 02/05/2020 ARTEMIO APARICIO MD Ot M19. 91 PRIMARY OSTEOARTHRITIS, UNSPECIFIED SITE 02/05/2020 ARTEMIO APARICIO MD Ot M54. 9 DORSALGIA, UNSPECIFIED 02/05/2020 ARTEMIO APARICIO MD Ot M79. 7 FIBROMYALGIA 02/05/2020 ARTEMIO APARICIO MD Ot N17. 9 ACUTE KIDNEY FAILURE, UNSPECIFIED 02/05/2020 ARTEMIO APARICIO MD Ot R65. 21 SEVERE SEPSIS WITH SEPTIC SHOCK 02/05/2020 ARTEMIO APARICIO MD Ot Z66 DO NOT RESUSCITATE 02/05/2020 ARTEMIO APARICIO MD, Ot Z68. 33 BODY MASS INDEX (BMI) 33.0-33.9, ADULT 02/05/2020 ARTEMIO APARICIO MD Ot Z79. 4 JAIL (CURRENT) USE OF INSULIN 02/05/2020 ARTEMIO APARICIO MD Ot Z86. 14 PERSONAL HISTORY OF METHICILLIN RESIS ST 02/05/2020 ARTEMIO APARICIO MD Ot Z95. 5 PRESENCE OF CORONARY ANGIOPLASTY IMPLANT 02/05/2020 ARTEMIO APARICIO MD Ot Z99. 81 DEPENDENCE ON SUPPLEMENTAL OXYGEN 02/05/2020 [facility], CHA Ot 879.2 OPN WND ANTERIOR ABDOMEN 02/05/2020 [facility], CHA Ot E000.8 OTHER EXTERNAL CAUSE STATUS 02/05/2020 [facility], CHA Ot E928.9 ACCIDENT NOS 02/05/2020 LIVAN ALEXANDRE, JUAN Raymond Ot 272. 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 0 MITRAL VALVE DISORDER 02/05/2020 JUAN LICONA MD Ot 786. 09 RESPIRATORY ABNORM NEC 02/05/2020 JUAN LICONA MD Ot 786. 50 CHEST PAIN NOS 02/05/2020 JUAN LICONA MD Ot V46. 2 SUPPLEMENTAL OXYGEN 02/05/2020 JUAN LICONA MD Ot 272. 4 HYPERLIPIDEMIA NEC/NOS 02/05/2020 JUAN LICONA MD Ot 786. 09 RESPIRATORY ABNORM NEC 02/05/2020 JUAN LICONA MD Ot 786. 50 CHEST PAIN NOS 02/05/2020 JUAN LICONA MD Ot V46. 2 SUPPLEMENTAL OXYGEN 02/05/2020 RUDOLPH KENT DO Ot V76.12 OTH SCREEN MAMMO-MALIGN NEOPLASM OF [place] 02/05/2020 QING TAO DO Ot 305. 1 TOBACCO USE DISORDER 02/05/2020 QING TAO DO Ot 496 CHR AIRWAY OBSTRUCT NEC 02/05/2020 QING TAO DO Ot 786. 09 RESPIRATORY ABNORM NEC 02/05/2020 KASIE DPM, ANDREA Q Ot 355. 5 TARSAL TUNNEL SYNDROME 02/05/2020 [facility] V72.84 EXAM PRE-OPERATIVE NOS 02/05/2020 [facility], CHA Ot 530.10 ESOPHAGITIS NOS 02/05/2020 [facility] 553.3 DIAPHRAGMATIC HERNIA 02/05/2020 [facility] Ot 787.20 DYSPHAGIA, UNSPECIFIED 02/05/2020 JIMMY KENT DRAFTING LAYOUT WORKER Ot 486 PNEUMONIA, ORGANISM NOS 02/05/2020 JIMMY KENT DRAFTING LAYOUT WORKER Ot 789.00 ABDOMINAL PAIN, UNSPECIFIED SITE 02/05/2020 JIMMY KENT DRAFTING LAYOUT WORKER Ot 959.6 HIP THIGH INJURY NOS 02/05/2020 JIMMY KENT DRAFTING LAYOUT WORKER Ot E000.8 OTHER EXTERNAL CAUSE STATUS 02/05/2020 JIMMY KENT DRAFTING LAYOUT WORKER Ot E849.4 ACCID IN RECREATION AREA 02/05/2020 JIMMY KENT DRAFTING LAYOUT WORKER Ot E888.9 FALL NOS 02/05/2020 WAUSAU[place]EE KRISHAN, PETRA Raymond Ot 724. 5 BACKACHE NOS 02/05/2020 [facility], PETRA Raymond Ot 786. 50 CHEST PAIN NOS 02/05/2020 [facility]. 1 PAIN IN THORACIC SPINE 02/05/2020 [place] PETRA NICKERSON Ot 786. 50 CHEST PAIN NOS 02/05/2020 RUDOLPH KENT DO Ot 414.00 CORON ATHEROSCLER NOS TYPE VESSEL, NATIV 02/05/2020 RUDOLPH KENT DO Ot 786.50 CHEST PAIN NOS 02/05/2020 RUDOLPH KENT DO Ot I25.10 ATHSCL HEART DISEASE OF [place] CORONARY 02/05/2020 RUDOLPH KENT DO Ot R07.9 CHEST PAIN, UNSPECIFIED 02/05/2020 LUCINA CHA VILLALPANDO Ot R10.9 UNSPECIFIED ABDOMINAL PAIN 02/05/2020 LUCINA CHA VILLALPANDO Ot Z01.818 ENCOUNTER FOR OTHER PREPROCEDURAL EXAMIN 02/05/2020 LUCINACHA DIANA DO Ot 553.20 VENTRAL HERNIA NOS 02/05/2020 [facility] V81.5 SCREEN FOR NEPHROPATHY 02/05/2020 LUKASZ CROWLEY APRN Ot F17.210 NICOTINE DEPENDENCE, CIGARETTES, UNCOMPL 02/05/2020 LUKASZ CROWLEY APRN Ot J44.9 CHRONIC OBSTRUCTIVE PULMONARY DISEASE, U 02/05/2020 LUKASZ CORWLEY APRN Ot R06.00 DYSPNEA, UNSPECIFIED 02/05/2020 DORIS EVANS, FRANDY Aviles Ot E11.9 TYPE 2 DIABETES MELLITUS WITHOUT COMPLIC 02/05/2020 JENORIS EVANS, FRANDY Aviles Ot E78.2 MIXED HYPERLIPIDEMIA 02/05/2020 JENORIS EVANS, FRANDY Aviles Ot I10 ESSENTIAL (PRIMARY) HYPERTENSION 02/05/2020 DORIS EVANS, FRANDY Aviles Ot I25.10 ATHSCL HEART DISEASE OF [place] CORONARY 02/05/2020 JENORIS EVANS, FRANDY Aviles Ot E11.9 TYPE 2 DIABETES MELLITUS WITHOUT COMPLIC 02/05/2020 JENORIS EVANS, FRANDY Aviles Ot E78.2 MIXED HYPERLIPIDEMIA 02/05/2020 JENORIS EVANS, FRANDY Aviles Ot I10 ESSENTIAL (PRIMARY) HYPERTENSION 02/05/2020 JENORIS EVANS, FRANDY Aviles Ot I25.10 ATHSCL HEART DISEASE OF [place] CORONARY 02/05/2020 LUKASZ CROWLEY APRN Ot F17.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, UNSPECIFIED, UNCOMP 02/05/2020 LUKASZ CROWLEY APRN Ot J44.9 CHRONIC OBSTRUCTIVE PULMONARY DISEASE, U 02/05/2020 RUDOLPH KENT DO, Ot M94.8X6 OTHER SPECIFIED DISORDERS OF [place], 02/05/2020 RUDOLPH KENT DO, Ot S83.242A OTH TEAR OF MEDIAL MENISCUS, CURRENT INJ 02/05/2020 RUDOLPH KENT DO, Ot S83.282A OTH TEAR OF LAT MENSC, CURRENT INJURY, L 02/05/2020 RUDOLPH KENT DO, Ot X58.XXXA EXPOSURE TO OTHER SPECIFIED FACTORS, INI 02/05/2020 RUDOLPH KENT DO, Ot Y99.8 OTHER EXTERNAL CAUSE STATUS 02/05/2020 RUDOLPH KENT DO, Ot Z12.31 ENCNTR SCREEN MAMMOGRAM FOR MALIGNANT NE 02/05/2020 RUDOLPH KENT DO, Ot M40.209 UNSPECIFIED KYPHOSIS, SITE UNSPECIFIED 02/05/2020 RUDOLPH KENT DO, Ot M85.852 OTH DISRD OF BONE DENSITY AND STRUCTURE, 02/05/2020 RUDOLPH KENT DO, Ot Z78.0 ASYMPTOMATIC MENOPAUSAL STATE 02/05/2020 EARNESTINE ALEXANDRE, RAY Davis Ot L98 .9 DISORDER OF THE SKIN AND SUBCUTANEOUS TI 02/05/2020 RUDOLPH KENT DO, Ot M77.32 CALCANEAL SPUR, LEFT FOOT 02/05/2020 KENT DO, RUDOLPH Raymond Ot S79.912A UNSPECIFIED INJURY OF LEFT HIP, INITIAL 02/05/2020 KENT DO, RUDOLPH Raymond Ot W19.XXXA UNSPECIFIED FALL, INITIAL ENCOUNTER 02/05/2020 KENT DO, RUDOLPH Raymond Ot F09 UNSP MENTAL DISORDER DUE TO KNOWN PHYSIO 02/05/2020 KENT DO, RUDOLPH Raymond Ot G43.909 MIGRAINE, UNSP, NOT INTRACTABLE, WITHOUT 02/05/2020 KENT DO, RUDOLPH Raymond Ot W19.XXXA UNSPECIFIED FALL, INITIAL ENCOUNTER 02/05/2020 KENT DO, RUDOLPH Raymond Ot M25.78 OSTEOPHYTE, VERTEBRAE 02/05/2020 KENT DO, RUDOLPH Raymond Ot M43.16 SPONDYLOLISTHESIS, LUMBAR REGION 02/05/2020 KENT DO, RUDOLPH Raymond Ot M46.86 OTHER SPECIFIED INFLAMMATORY SPONDYLOPAT 02/05/2020 KENT DO, RUDOLPH Raymond Ot M47.27 OTHER SPONDYLOSIS WITH RADICULOPATHY, CATHLEEN 02/05/2020 KENT DO, RUDOLPH Raymond Ot M48.061 SPINAL STENOSIS, LUMBAR REGION WITHOUT N 02/05/2020 KENT DO, RUDOLPH Raymond Ot M51.16 INTERVERTEBRAL DISC DISORDERS W RADICULO 02/05/2020 KENT DO, RUDOLPH Raymond Ot M99.73 CONN TISS AND DISC STENOS OF INTVRT FORA 02/05/2020 KENT DO, RUDOLPH Raymond Ot S99.912A UNSPECIFIED INJURY OF LEFT ANKLE, INITIA 02/05/2020 JUAN LICONA MD Ot E11. 51 TYPE 2 DIABETES W DIABETIC PERIPHERAL AN 02/05/2020 JUAN LICONA MD Ot E78. 2 MIXED HYPERLIPIDEMIA 02/05/2020 JUAN LICONA MD Ot R06. 09 OTHER FORMS OF DYSPNEA 02/05/2020 JUAN LICONA MD Ot R07. 89 OTHER CHEST PAIN 02/05/2020 JUAN LICONA MD Ot E11. 51 TYPE 2 DIABETES W DIABETIC PERIPHERAL AN 02/05/2020 JUAN LICONA MD Ot E78. 2 MIXED HYPERLIPIDEMIA 02/05/2020 JUAN LICONA MD Ot R06. 09 OTHER FORMS OF DYSPNEA 02/05/2020 JUAN LICONA MD Ot R07. 89 OTHER CHEST PAIN 02/05/2020 CARLINE, LUKASZ E PRINTMAKER Ot F12.10 CANNABIS ABUSE, UNCOMPLICATED 02/05/2020 CARLINE, LUKASZ E PRINTMAKER Ot F17.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, UNSPECIFIED, UNCOMP 02/05/2020 CARLINE, LUKASZ E PRINTMAKER Ot G47.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 02/05/2020 CARLINE, LUKASZ E PRINTMAKER Ot J30.9 ALLERGIC RHINITIS, UNSPECIFIED 02/05/2020 CARLINE, LUKASZ E PRINTMAKER Ot J42 UNSPECIFIED CHRONIC BRONCHITIS 02/05/2020 CARLINE, LUKASZ E PRINTMAKER Ot J44.9 CHRONIC OBSTRUCTIVE PULMONARY DISEASE, U 02/05/2020 CARLINE, LUKASZ E PRINTMAKER Ot Z99.81 DEPENDENCE ON SUPPLEMENTAL OXYGEN 02/05/2020 CARLINE, LUKASZ E PRINTMAKER Ot F12.10 CANNABIS ABUSE, UNCOMPLICATED 02/05/2020 CARLINE, LUKASZ E PRINTMAKER Ot F17.210 NICOTINE DEPENDENCE, CIGARETTES, UNCOMPL 02/05/2020 CARLINE, LUKASZ E PRINTMAKER Ot G47.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 02/05/2020 CARLINE, LUKASZ E PRINTMAKER Ot J18.1 LOBAR PNEUMONIA, UNSPECIFIED ORGANISM 02/05/2020 CARLINE, LUKASZ E PRINTMAKER Ot J30.9 ALLERGIC RHINITIS, UNSPECIFIED 02/05/2020 CARLINE, LUKASZ E PRINTMAKER Ot J44.9 CHRONIC OBSTRUCTIVE PULMONARY DISEASE, U 02/05/2020 CARLINE, LUKASZ E PRINTMAKER Ot Z12.2 ENCNTR SCREEN FOR MALIGNANT NEOPLASM OF 02/05/2020 CARLINE, LUKASZ E PRINTMAKER Ot Z99.81 DEPENDENCE ON SUPPLEMENTAL OXYGEN 02/05/2020 RUDOLPH KENT DO Ot Z45.2 ENCOUNTER FOR ADJUSTMENT AND MANAGEMENT 02/05/2020 SARAH ROBERTSON Ot 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, CERVICOTHORACIC REGIO 02/05/2020 SARAH ROBERTSON Ot M48.02 SPINAL STENOSIS, CERVICAL REGION 02/05/2020 SARAH ROBERTSON Ot M50.11 CERV DISC DISORDER WITH RADICULOPATHY, H 02/05/2020 SARAH ROBERTSON Ot M50.121 CERVICAL DISC DISORDER AT C4-C5 LEVEL [place] 02/05/2020 ALESSANDRA ALEXANDRE, ARTEMIO Morales Ot A41. 9 SEPSIS, UNSPECIFIED ORGANISM 02/05/2020 ARTEMIO APARICIO MD Ot E11. 40 TYPE 2 DIABETES MELLITUS WITH DIABETIC N 02/05/2020 ARTEMIO APARICIO MD Ot E66. 9 OBESITY, UNSPECIFIED 02/05/2020 ARTEMIO APARICIO MD Ot E78. 00 PURE HYPERCHOLESTEROLEMIA, UNSPECIFIED 02/05/2020 ARTEMIO APARICIO MD Ot E87. 5 HYPERKALEMIA 02/05/2020 ARTEMIO APARICIO MD Ot F17.210 NICOTINE DEPENDENCE, CIGARETTES, UNCOMPL 02/05/2020 ARTEMIO APARICIO MD Ot F32. 9 MAJOR DEPRESSIVE DISORDER, SINGLE EPISOD 02/05/2020 ARTEMIO APARICIO MD Ot F41. 9 ANXIETY DISORDER, UNSPECIFIED 02/05/2020 ARTEMIO APARICIO MD Ot I11. 0 HYPERTENSIVE HEART DISEASE WITH HEART FA 02/05/2020 ARTEMIO APARICIO MD Ot I25. 10 ATHSCL HEART DISEASE OF [place] CORONARY 02/05/2020 ARTEMIO APARICIO MD Ot I50. 9 HEART FAILURE, UNSPECIFIED 02/05/2020 ARTEMIO APARICIO MD Ot J18. 9 PNEUMONIA, UNSPECIFIED ORGANISM 02/05/2020 ARTEMIO APARICIO MD Ot J30. 2 OTHER SEASONAL ALLERGIC RHINITIS 02/05/2020 ARTEMIO APARICIO MD Ot J44. 9 CHRONIC OBSTRUCTIVE PULMONARY DISEASE, U 02/05/2020 ARTEMIO APARICIO MD Ot J96. 21 ACUTE AND CHRONIC RESPIRATORY FAILURE [place] 02/05/2020 ARTEMIO APARICIO MD Ot J96. 22 ACUTE AND CHRONIC RESPIRATORY FAILURE [place] 02/05/2020 ARTEMIO APARICIO MD Ot K21. 9 GASTRO-ESOPHAGEAL REFLUX DISEASE WITHOUT 02/05/2020 ARTEMIO APARICIO MD Ot M19. 91 PRIMARY OSTEOARTHRITIS, UNSPECIFIED SITE 02/05/2020 ARTEMIO APARICIO MD Ot M54. 9 DORSALGIA, UNSPECIFIED 02/05/2020 ARTEMIO APARICIO MD Ot M79. 7 FIBROMYALGIA 02/05/2020 ARTEMIO APARICIO MD Ot N17. 9 ACUTE KIDNEY FAILURE, UNSPECIFIED 02/05/2020 ARTEMIO APARICIO MD Ot R65. 21 SEVERE SEPSIS WITH SEPTIC SHOCK 02/05/2020 ARTEMIO APARICIO MD Ot Z66 DO NOT RESUSCITATE 02/05/2020 ARTEMIO APARICIO MD Ot Z68. 33 BODY MASS INDEX (BMI) 33.0-33.9, ADULT 02/05/2020 ARTEMIO APARICIO MD, Ot Z79. 4 JAIL (CURRENT) USE OF INSULIN 02/05/2020 ARTEMIO APARICIO MD Ot Z86. 14 PERSONAL HISTORY OF METHICILLIN RESIS ST 02/05/2020 ARTEMIO APARICIO MD Ot Z95. 5 PRESENCE OF CORONARY ANGIOPLASTY IMPLANT 02/05/2020 ARTEMIO APARICIO MD Ot Z99. 81 DEPENDENCE ON SUPPLEMENTAL OXYGEN 02/05/2020 [facility], [facility] Ot 879.2 OPN WND ANTERIOR ABDOMEN 02/05/2020 [facility], CHA Ot E000.8 OTHER EXTERNAL CAUSE STATUS 02/05/2020 [facility], CHA Ot E928.9 ACCIDENT NOS 02/05/2020 JUAN LICONA MD Ot 272. 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 0 MITRAL VALVE DISORDER 02/05/2020 JUAN LICONA MD Ot 786. 09 RESPIRATORY ABNORM NEC 02/05/2020 JUAN LICONA MD Ot 786. 50 CHEST PAIN NOS 02/05/2020 JUAN LICONA MD Ot V46. 2 SUPPLEMENTAL OXYGEN 02/05/2020 JUAN LICONA MD Ot 272. 4 HYPERLIPIDEMIA NEC/NOS 02/05/2020 JUAN LICONA MD Ot 786. 09 RESPIRATORY ABNORM NEC 02/05/2020 JUAN LICONA MD Ot 786. 50 CHEST PAIN NOS 02/05/2020 JUAN LICONA MD Ot V46. 2 SUPPLEMENTAL OXYGEN 02/05/2020 RUDOLPH KENT DO Ot V76.12 OTH SCREEN MAMMO-MALIGN NEOPLASM OF [place] 02/05/2020 QING TAO DO Ot 305. 1 TOBACCO USE DISORDER 02/05/2020 QING TAO DO Ot 496 CHR AIRWAY OBSTRUCT NEC 02/05/2020 QING TAO DO Ot 786. 09 RESPIRATORY ABNORM NEC 02/05/2020 KASIE DPM, ANDREA Q Ot 355. 5 TARSAL TUNNEL SYNDROME 02/05/2020 LUCINA CHA VILLALPANDO Ot V72.84 EXAM PRE-OPERATIVE NOS 02/05/2020 LUCINA CHA VILLALPANDO Ot 530.10 ESOPHAGITIS NOS 02/05/2020 LUCINA CHA VILLALPANDO Ot 553.3 DIAPHRAGMATIC HERNIA 02/05/2020 CHA VERDUGO DO Ot 787.20 DYSPHAGIA, UNSPECIFIED 02/05/2020 JIMMY KENT DRAFTING LAYOUT WORKER Ot 486 PNEUMONIA, ORGANISM NOS 02/05/2020 JIMMY KENT DRAFTING LAYOUT WORKER Ot 789.00 ABDOMINAL PAIN, UNSPECIFIED SITE 02/05/2020 JIMMY KENT DRAFTING LAYOUT WORKER Ot 959.6 HIP THIGH INJURY NOS 02/05/2020 JIMMY KENT DRAFTING LAYOUT WORKER Ot E000.8 OTHER EXTERNAL CAUSE STATUS 02/05/2020 JIMMY KENT DRAFTING LAYOUT WORKER Ot E849.4 ACCID IN RECREATION AREA 02/05/2020 JIMMY KENT DRAFTING LAYOUT WORKER Ot E888.9 FALL NOS 02/05/2020 [place] KRISHAN, PETRA Raymond Ot 724. 5 BACKACHE NOS 02/05/2020 [place] PETRA NICKERSON Ot 786. 50 CHEST PAIN NOS 02/05/2020 [place] PETRA NICKERSON Ot 724. 1 PAIN IN THORACIC SPINE 02/05/2020 [place] PETRA NICKERSON Ot 786. 50 CHEST PAIN NOS 02/05/2020 RUDOLPH KENT DO Ot 414.00 CORON ATHEROSCLER NOS TYPE VESSEL, NATIV 02/05/2020 RUDOLPH KENT DO Ot 786.50 CHEST PAIN NOS 02/05/2020 RUDOLPH KENT DO Ot I25.10 ATHSCL HEART DISEASE OF [place] CORONARY 02/05/2020 RUDOLPH KENT DO Ot R07.9 CHEST PAIN, UNSPECIFIED 02/05/2020 CHA VERDUGO DO Ot R10.9 UNSPECIFIED ABDOMINAL PAIN 02/05/2020 LUCINACHA DIANA DO Ot Z01.818 ENCOUNTER FOR OTHER PREPROCEDURAL EXAMIN 02/05/2020 CHA VERDUGO DO Ot 553.20 VENTRAL HERNIA NOS 02/05/2020 LUCINA CHA VILLALPANDO Ot V81.5 SCREEN FOR NEPHROPATHY 02/05/2020 LUKASZ CROWLEY APRN Ot F17.210 NICOTINE DEPENDENCE, CIGARETTES, UNCOMPL 02/05/2020 LUKASZ CROWLEY APRN Ot J44.9 CHRONIC OBSTRUCTIVE PULMONARY DISEASE, U 02/05/2020 LUKASZ CROWLEY APRN Ot R06.00 DYSPNEA, UNSPECIFIED 02/05/2020 [facility] EV[facility], FRANDY Aviles Ot E11.9 TYPE 2 DIABETES MELLITUS WITHOUT COMPLIC 02/05/2020 [facility] FRANDY K Ot E78.2 MIXED HYPERLIPIDEMIA 02/05/2020 [facility] CRISTINA, FRANDY K Ot I10 ESSENTIAL (PRIMARY) HYPERTENSION 02/05/2020 [facility] CRISTINA, FRANDY K Ot I25.10 ATHSCL HEART DISEASE OF [place] CORONARY 02/05/2020 [facility] CRISTINA, FRANDY Aviles Ot E11.9 TYPE 2 DIABETES MELLITUS WITHOUT COMPLIC 02/05/2020 [facility] CRISTINA, FRANDY K Ot E78.2 MIXED HYPERLIPIDEMIA 02/05/2020 [facility] CRISTINA, FRANDY K Ot I10 ESSENTIAL (PRIMARY) HYPERTENSION 02/05/2020 [facility] CRISTINA, FRANDY K Ot I25.10 ATHSCL HEART DISEASE OF [place] CORONARY 02/05/2020 LUKASZ CROWLEY APRN Ot F17.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, UNSPECIFIED, UNCOMP 02/05/2020 LUKASZ CROWLEY APRN Ot J44.9 CHRONIC OBSTRUCTIVE PULMONARY DISEASE, U 02/05/2020 RUDOLPH KENT DO Ot M94.8X6 OTHER SPECIFIED DISORDERS OF [place], 02/05/2020 RUDOLPH KENT DO, Ot S83.242A OTH TEAR OF MEDIAL MENISCUS, CURRENT INJ 02/05/2020 RUDOLPH KENT DO, Ot S83.282A OTH TEAR OF LAT MENSC, CURRENT INJURY, L 02/05/2020 RUDOLPH KENT DO Ot X58.XXXA EXPOSURE TO OTHER SPECIFIED FACTORS, INI 02/05/2020 RUDOLPH KENT DO Ot Y99.8 OTHER EXTERNAL CAUSE STATUS 02/05/2020 RUDOLPH KENT DO, Ot Z12.31 ENCNTR SCREEN MAMMOGRAM FOR MALIGNANT NE 02/05/2020 RUDOLPH KENT DO, Ot M40.209 UNSPECIFIED KYPHOSIS, SITE UNSPECIFIED 02/05/2020 YOLI VILLALPANDO, RUDOLPH Raymond Ot M85.852 OT DISRD OF BONE DENSITY AND STRUCTURE, 02/05/2020 YOLI VILLALPANDO, RUDOLPH Raymond Ot Z78.0 ASYMPTOMATIC MENOPAUSAL STATE 02/05/2020 EARNESTINE ALEXANDRE, RAY Davis Ot L98 .9 DISORDER OF THE SKIN AND SUBCUTANEOUS TI 02/05/2020 YOLI VILLALPANDO, RUDOLPH Raymond Ot M77.32 CALCANEAL SPUR, LEFT FOOT 02/05/2020 YOLI VILLALPANDO, RUDOLPH Raymond Ot S79.912A UNSPECIFIED INJURY OF LEFT HIP, INITIAL 02/05/2020 YOLI VILLALPANDO, RUDOLPH Raymond Ot W19.XXXA UNSPECIFIED FALL, INITIAL ENCOUNTER 02/05/2020 YOLI VILLALPANDO, RUDOLPH Raymond Ot F09 UNSP MENTAL DISORDER DUE TO KNOWN PHYSIO 02/05/2020 YOLI VILLALPANDO, RUDOLPH Raymond Ot G43.909 MIGRAINE, UNSP, NOT INTRACTABLE, WITHOUT 02/05/2020 KENT , RUDOLPH Raymond Ot W19.XXXA UNSPECIFIED FALL, INITIAL ENCOUNTER 02/05/2020 RUDOLPH KENT DO, Ot M25.78 OSTEOPHYTE, VERTEBRAE 02/05/2020 YOLI VILLALPANDO, RUDOLPH Raymond Ot M43.16 SPONDYLOLISTHESIS, LUMBAR REGION 02/05/2020 YOLI VILLALPANDO, RUDOLPH Raymond Ot M46.86 OTHER SPECIFIED INFLAMMATORY SPONDYLOPAT 02/05/2020 RUDOLPH KENT DO, Ot M47.27 OTHER SPONDYLOSIS WITH RADICULOPATHY, CATHLEEN 02/05/2020 YOLI VILLALPANDO, RUDOLPH Raymond Ot M48.061 SPINAL STENOSIS, LUMBAR REGION WITHOUT N 02/05/2020 RUDOLPH KENT DO, Ot M51.16 INTERVERTEBRAL DISC DISORDERS W RADICULO 02/05/2020 YOLI VILLALPANDO, RUDOLPH Raymond Ot M99.73 CONN TISS AND DISC STENOS OF INTVRT FORA 02/05/2020 YOLI VILLALPANDO, RUDOLPH Raymond Ot S99.912A UNSPECIFIED INJURY OF LEFT ANKLE, INITIA 02/05/2020 LIVAN ALEXANDRE, JUAN Raymond Ot E11. 51 TYPE 2 DIABETES W DIABETIC PERIPHERAL AN 02/05/2020 JUAN LICONA MD Ot E78. 2 MIXED HYPERLIPIDEMIA 02/05/2020 JUAN LICONA MD Ot R06. 09 OTHER FORMS OF DYSPNEA 02/05/2020 LIVAN ALEXANDRE, JUAN Raymond Ot R07. 89 OTHER CHEST PAIN 02/05/2020 LIVAN ALEXANDRE, JUAN Raymond Ot E11. 51 TYPE 2 DIABETES W DIABETIC PERIPHERAL AN 02/05/2020 LIVAN ALEXANDRE, JUAN Raymond Ot E78. 2 MIXED HYPERLIPIDEMIA 02/05/2020 LIVAN ALEXANDRE, JUAN Raymond Ot R06. 09 OTHER FORMS OF DYSPNEA 02/05/2020 LIVAN ALEXANDRE, JUAN Raymond Ot R07. 89 OTHER CHEST PAIN 02/05/2020 CARLINE, LUKAZS E PRINTMAKER Ot F12.10 CANNABIS ABUSE, UNCOMPLICATED 02/05/2020 CARLINE, LUKASZ E PRINTMAKER Ot F17.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, UNSPECIFIED, UNCOMP 02/05/2020 CARLINE, LUKASZ E PRINTMAKER Ot G47.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 02/05/2020 CARLINE, LUKASZ E PRINTMAKER Ot J30.9 ALLERGIC RHINITIS, UNSPECIFIED 02/05/2020 CARLINE, LUKASZ E PRINTMAKER Ot J42 UNSPECIFIED CHRONIC BRONCHITIS 02/05/2020 CARLINE, LUKASZ E PRINTMAKER Ot J44.9 CHRONIC OBSTRUCTIVE PULMONARY DISEASE, U 02/05/2020 CARLINE, LUKASZ E PRINTMAKER Ot Z99.81 DEPENDENCE ON SUPPLEMENTAL OXYGEN 02/05/2020 CARLINE, LUKASZ E PRINTMAKER Ot F12.10 CANNABIS ABUSE, UNCOMPLICATED 02/05/2020 CARLINE, LUKASZ E PRINTMAKER Ot F17.210 NICOTINE DEPENDENCE, CIGARETTES, UNCOMPL 02/05/2020 CARLINE, LUKASZ E PRINTMAKER Ot G47.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 02/05/2020 CARLINE, LUKASZ E PRINTMAKER Ot J18.1 LOBAR PNEUMONIA, UNSPECIFIED ORGANISM 02/05/2020 CARLNIE, LUKASZ E PRINTMAKER Ot J30.9 ALLERGIC RHINITIS, UNSPECIFIED 02/05/2020 CARLINE, LUKASZ E PRINTMAKER Ot J44.9 CHRONIC OBSTRUCTIVE PULMONARY DISEASE, U 02/05/2020 CARLINE, LUKASZ E PRINTMAKER Ot Z12.2 ENCNTR SCREEN FOR MALIGNANT NEOPLASM OF 02/05/2020 CARLINE, LUKASZ E PRINTMAKER Ot Z99.81 DEPENDENCE ON SUPPLEMENTAL OXYGEN 02/05/2020 RUDOLPH KENT DO Ot Z45.2 ENCOUNTER FOR ADJUSTMENT AND MANAGEMENT 02/05/2020 SARAH ROBERTSON Ot 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, CERVICOTHORACIC REGIO 02/05/2020 SARAH ROBERTSON Ot M48.02 SPINAL STENOSIS, CERVICAL REGION 02/05/2020 SARAH ROBERTSON Ot M50.11 CERV DISC DISORDER WITH RADICULOPATHY, H 02/05/2020 SARAH ROBERTSON Ot M50.121 CERVICAL DISC DISORDER AT C4-C5 LEVEL [place] 02/05/2020 ARTEMIO APARICIO MD Ot A41. 9 SEPSIS, UNSPECIFIED ORGANISM 02/05/2020 ARTEMIO APARICIO MD Ot E11. 40 TYPE 2 DIABETES MELLITUS WITH DIABETIC N 02/05/2020 ARTEMIO APARICIO MD Ot E66. 9 OBESITY, UNSPECIFIED 02/05/2020 ARTEMIO APARICIO MD Ot E78. 00 PURE HYPERCHOLESTEROLEMIA, UNSPECIFIED 02/05/2020 ARTEMIO APARICIO MD Ot E87. 5 HYPERKALEMIA 02/05/2020 ARTEMIO APARICIO MD Ot F17.210 NICOTINE DEPENDENCE, CIGARETTES, UNCOMPL 02/05/2020 ARTEMIO APARICIO MD Ot F32. 9 MAJOR DEPRESSIVE DISORDER, SINGLE EPISOD 02/05/2020 ARTEMIO APARICIO MD Ot F41. 9 ANXIETY DISORDER, UNSPECIFIED 02/05/2020 ARTEMIO APARICIO MD Ot I11. 0 HYPERTENSIVE HEART DISEASE WITH HEART FA 02/05/2020 ARTEMIO APARICIO MD Ot I25. 10 ATHSCL HEART DISEASE OF [place] CORONARY 02/05/2020 ARTEMIO APARICIO MD Ot I50. 9 HEART FAILURE, UNSPECIFIED 02/05/2020 ARTEMIO APARICIO MD Ot J18. 9 PNEUMONIA, UNSPECIFIED ORGANISM 02/05/2020 ARTEMIO APARICIO MD Ot J30. 2 OTHER SEASONAL ALLERGIC RHINITIS 02/05/2020 ARTEMIO APARICIO MD Ot J44. 9 CHRONIC OBSTRUCTIVE PULMONARY DISEASE, U 02/05/2020 ARTEMIO APARICIO MD Ot J96. 21 ACUTE AND CHRONIC RESPIRATORY FAILURE [place] 02/05/2020 ARTEMIO APARICIO MD Ot J96. 22 ACUTE AND CHRONIC RESPIRATORY FAILURE [place] 02/05/2020 ARTEMIO APARICIO MD Ot K21. 9 GASTRO-ESOPHAGEAL REFLUX DISEASE WITHOUT 02/05/2020 ARTEMIO APARICIO MD Ot M19. 91 PRIMARY OSTEOARTHRITIS, UNSPECIFIED SITE 02/05/2020 ARTEMIO APARICIO MD, Ot M54. 9 DORSALGIA, UNSPECIFIED 02/05/2020 ARTEMIO APARICIO MD, Ot M79. 7 FIBROMYALGIA 02/05/2020 ARTEMIO APARICIO MD, Ot N17. 9 ACUTE KIDNEY FAILURE, UNSPECIFIED 02/05/2020 ARTEMIO APARICIO MD, Ot R65. 21 SEVERE SEPSIS WITH SEPTIC SHOCK 02/05/2020 ARTEMIO APARICIO MD, Ot Z66 DO NOT RESUSCITATE 02/05/2020 ARTEMIO APARICIO MD, Ot Z68. 33 BODY MASS INDEX (BMI) 33.0-33.9, ADULT 02/05/2020 ARTEMIO APARICIO MD, Ot Z79. 4 JAIL (CURRENT) USE OF INSULIN 02/05/2020 ARTEMIO APARICIO MD, Ot Z86. 14 PERSONAL HISTORY OF METHICILLIN RESIS ST 02/05/2020 ARTEMIO APARICIO MD, Ot Z95. 5 PRESENCE OF CORONARY ANGIOPLASTY IMPLANT 02/05/2020 ARTEMIO APARICIO MD, Ot Z99. 81 DEPENDENCE ON SUPPLEMENTAL OXYGEN 02/05/2020 [facility], CHA Ot 879.2 OPN WND ANTERIOR ABDOMEN 02/05/2020 [facility], CHA Ot E000.8 OTHER EXTERNAL CAUSE STATUS 02/05/2020 [facility] CHA VILLALPANDO Ot E928.9 ACCIDENT NOS 02/05/2020 JUAN LICONA MD Ot 272. 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 0 MITRAL VALVE DISORDER 02/05/2020 JUAN LICONA MD Ot 786. 09 RESPIRATORY ABNORM NEC 02/05/2020 JUAN LICONA MD Ot 786. 50 CHEST PAIN NOS 02/05/2020 JUAN LICONA MD Ot V46. 2 SUPPLEMENTAL OXYGEN 02/05/2020 JUAN LICONA MD Ot 272. 4 HYPERLIPIDEMIA NEC/NOS 02/05/2020 JUAN LICONA MD Ot 786. 09 RESPIRATORY ABNORM NEC 02/05/2020 JUAN LICONA MD Ot 786. 50 CHEST PAIN NOS 02/05/2020 JUAN LICONA MD Ot V46. 2 SUPPLEMENTAL OXYGEN 02/05/2020 RUDOLPH KENT DO Ot V76.12 OT SCREEN MAMMO-MALIGN NEOPLASM OF [place] 02/05/2020 QING TAO DO Ot 305. 1 TOBACCO USE DISORDER 02/05/2020 QING TAO DO Ot 496 CHR AIRWAY OBSTRUCT NEC 02/05/2020 QING TAO DO Ot 786. 09 RESPIRATORY ABNORM NEC 02/05/2020 KASIE DPM, ANDREA Q Ot 355. 5 TARSAL TUNNEL SYNDROME 02/05/2020 CHA VERDUGO DO Ot V72.84 EXAM PRE-OPERATIVE NOS 02/05/2020 LUCINA CHA VILLALPANDO Ot 530.10 ESOPHAGITIS NOS 02/05/2020 LUCINA CHA VILLALPANDO Ot 553.3 DIAPHRAGMATIC HERNIA 02/05/2020 CHA VERDUGO DO Ot 787.20 DYSPHAGIA, UNSPECIFIED 02/05/2020 JIMMY KENT DRAFTING LAYOUT WORKER Ot 486 PNEUMONIA, ORGANISM NOS 02/05/2020 JIMMY KENT DRAFTING LAYOUT WORKER Ot 789.00 ABDOMINAL PAIN, UNSPECIFIED SITE 02/05/2020 JIMMY KENT DRAFTING LAYOUT WORKER Ot 959.6 HIP THIGH INJURY NOS 02/05/2020 ADAMA KENTIA Jr DRAFTING LAYOUT WORKER Ot E000.8 OTHER EXTERNAL CAUSE STATUS 02/05/2020 JIMMY KENT DRAFTING LAYOUT WORKER Ot E849.4 ACCID IN RECREATION AREA 02/05/2020 ADAMA KENTIA Jr DRAFTING LAYOUT WORKER Ot E888.9 FALL NOS 02/05/2020 CAIOPETRA DENSON DC Ot 724. 5 BACKACHE NOS 02/05/2020 CAIOPETRA DENSON DC Ot 786. 50 CHEST PAIN NOS 02/05/2020 PETRA KEARNEY DC Ot 724. 1 PAIN IN THORACIC SPINE 02/05/2020 PETRA KEARNEY DC Ot 786. 50 CHEST PAIN NOS 02/05/2020 RUDOLPH KENT DO Ot 414.00 CORON ATHEROSCLER NOS TYPE VESSEL, NATIV 02/05/2020 RUDOLPH KENT DO Ot 786.50 CHEST PAIN NOS 02/05/2020 RUDOLPH KENT DO Ot I25.10 ATHSCL HEART DISEASE OF [place] CORONARY 02/05/2020 RUDOLPH KENT DO Ot R07.9 CHEST PAIN, UNSPECIFIED 02/05/2020 CHA VERDUGO DO Ot R10.9 UNSPECIFIED ABDOMINAL PAIN 02/05/2020 [facility], CHA Ot Z01.818 ENCOUNTER FOR OTHER PREPROCEDURAL EXAMIN 02/05/2020 [facility] CHA Ot 553.20 VENTRAL HERNIA NOS 02/05/2020 [facility] V81.5 SCREEN FOR NEPHROPATHY 02/05/2020 LUKASZ CROWLEY APRN Ot F17.210 NICOTINE DEPENDENCE, CIGARETTES, UNCOMPL 02/05/2020 LUKASZ CROWLEY APRN Ot J44.9 CHRONIC OBSTRUCTIVE PULMONARY DISEASE, U 02/05/2020 LUKASZ CROWLEY APRN Ot R06.00 DYSPNEA, UNSPECIFIED 02/05/2020 FRANDY DE LA ROSA Ot E11.9 TYPE 2 DIABETES MELLITUS WITHOUT COMPLIC 02/05/2020 FRANDY DE [place] ROSA Ot E78.2 MIXED HYPERLIPIDEMIA 02/05/2020 FRANDY DE LA ROSA Ot I10 ESSENTIAL (PRIMARY) HYPERTENSION 02/05/2020 FRANDY DE LA ROSA Ot I25.10 ATHSCL HEART DISEASE OF [place] CORONARY 02/05/2020 FRANDY DE LA ROSA Ot E11.9 TYPE 2 DIABETES MELLITUS WITHOUT COMPLIC 02/05/2020 FRANDY DE LA ROSA Ot E78.2 MIXED HYPERLIPIDEMIA 02/05/2020 FRANDY DE LA ROSA Ot I10 ESSENTIAL (PRIMARY) HYPERTENSION 02/05/2020 FRANDY DE LA ROSA Ot I25.10 ATHSCL HEART DISEASE OF [place] CORONARY 02/05/2020 LUKASZ CROWLEY APRN Ot F17.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, UNSPECIFIED, UNCOMP 02/05/2020 LUKASZ CROWLEY APRN Ot J44.9 CHRONIC OBSTRUCTIVE PULMONARY DISEASE, U 02/05/2020 RUDOLPH KENT DO Ot M94.8X6 OTHER SPECIFIED DISORDERS OF [place], 02/05/2020 RUDOLPH KENT DO Ot S83.242A OTH TEAR OF MEDIAL MENISCUS, CURRENT INJ 02/05/2020 RUDOLPH KENT DO, Ot S83.282A OTH TEAR OF LAT MENSC, CURRENT INJURY, L 02/05/2020 RUDOLPH KENT DO Ot X58.XXXA EXPOSURE TO OTHER SPECIFIED FACTORS, INI 02/05/2020 YOLI VILLALPANDO, RUDOLPH Raymond Ot Y99.8 OTHER EXTERNAL CAUSE STATUS 02/05/2020 YOLI VILLALPANDO, RUDOLPH Raymond Ot Z12.31 ENCNTR SCREEN MAMMOGRAM FOR MALIGNANT NE 02/05/2020 YOLI VILLALPANDO, RUDOLPH Raymond Ot M40.209 UNSPECIFIED KYPHOSIS, SITE UNSPECIFIED 02/05/2020 RUDOLPH KENT DO, Ot M85.852 OT DISRD OF BONE DENSITY AND STRUCTURE, 02/05/2020 YOLI VILLALPANDO, RUDOLPH Raymond Ot Z78.0 ASYMPTOMATIC MENOPAUSAL STATE 02/05/2020 EARNESTINE ALEXANDRE, RAY Davis Ot L98 .9 DISORDER OF THE SKIN AND SUBCUTANEOUS TI 02/05/2020 YOLI VILLALPANDO, RUDOLPH Raymond Ot M77.32 CALCANEAL SPUR, LEFT FOOT 02/05/2020 YOLI VILLALPANDO, RUDOLPH Raymond Ot S79.912A UNSPECIFIED INJURY OF LEFT HIP, INITIAL 02/05/2020 RUDOLPH KENT DO, Ot W19.XXXA UNSPECIFIED FALL, INITIAL ENCOUNTER 02/05/2020 YOLI VILLALPANDO, RUDOLPH Raymond Ot F09 UNSP MENTAL DISORDER DUE TO KNOWN PHYSIO 02/05/2020 YOLI VILLALPANDO, RUDOLPH Raymond Ot G43.909 MIGRAINE, UNSP, NOT INTRACTABLE, WITHOUT 02/05/2020 YOLI VILLALPANDO, RUDOLPH Raymond Ot W19.XXXA UNSPECIFIED FALL, INITIAL ENCOUNTER 02/05/2020 RUDOLPH KENT DO, Ot M25.78 OSTEOPHYTE, VERTEBRAE 02/05/2020 RUDOLPH KENT DO, Ot M43.16 SPONDYLOLISTHESIS, LUMBAR REGION 02/05/2020 RUDOLPH KENT DO, Ot M46.86 OTHER SPECIFIED INFLAMMATORY SPONDYLOPAT 02/05/2020 RUDOLPH KENT DO, Ot M47.27 OTHER SPONDYLOSIS WITH RADICULOPATHY, CATHLEEN 02/05/2020 RUDOLPH KENT DO, Ot M48.061 SPINAL STENOSIS, LUMBAR REGION WITHOUT N 02/05/2020 RUDOLPH KENT DO, Ot M51.16 INTERVERTEBRAL DISC DISORDERS W RADICULO 02/05/2020 YOLI VILLALPANDO, RUDOLPH Raymond Ot M99.73 CONN TISS AND DISC STENOS OF INTVRT FORA 02/05/2020 YOLI VILLALPANDO, RUDOLPH Raymond Ot S99.912A UNSPECIFIED INJURY OF LEFT ANKLE, INITIA 02/05/2020 LIVAN ALEXANDRE, JUAN Raymond Ot E11. 51 TYPE 2 DIABETES W DIABETIC PERIPHERAL AN 02/05/2020 LIVAN ALEXANDRE, JUAN Raymond Ot E78. 2 MIXED HYPERLIPIDEMIA 02/05/2020 LIVAN ALEXANDRE, JUAN Raymond Ot R06. 09 OTHER FORMS OF DYSPNEA 02/05/2020 LIVAN ALEXANDRE, JUAN Raymond Ot R07. 89 OTHER CHEST PAIN 02/05/2020 LIVAN ALEXANDRE, JUAN Raymond Ot E11. 51 TYPE 2 DIABETES W DIABETIC PERIPHERAL AN 02/05/2020 LIVAN ALEXANDRE, JUAN Raymond Ot E78. 2 MIXED HYPERLIPIDEMIA 02/05/2020 LIVAN ALEXANDRE, JUAN Raymond Ot R06. 09 OTHER FORMS OF DYSPNEA 02/05/2020 LIVAN ALEXANDRE, JUAN Raymond Ot R07. 89 OTHER CHEST PAIN 02/05/2020 LUKASZ CROWLEY PRINTMAKER Ot F12.10 CANNABIS ABUSE, UNCOMPLICATED 02/05/2020 CARMELINA CROWLEYINE E PRINTMAKER Ot F17.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, UNSPECIFIED, UNCOMP 02/05/2020 LUKASZ CROWLEY E PRINTMAKER Ot G47.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 02/05/2020 CARMELINA CROWLEYINE E PRINTMAKER Ot J30.9 ALLERGIC RHINITIS, UNSPECIFIED 02/05/2020 CARMELINA CROWLEYINE E PRINTMAKER Ot J42 UNSPECIFIED CHRONIC BRONCHITIS 02/05/2020 CARMELINA CROWLEYINE E PRINTMAKER Ot J44.9 CHRONIC OBSTRUCTIVE PULMONARY DISEASE, U 02/05/2020 CARMELINA CROWLEYINE E PRINTMAKER Ot Z99.81 DEPENDENCE ON SUPPLEMENTAL OXYGEN 02/05/2020 LUKASZ CROWLEY E PRINTMAKER Ot F12.10 CANNABIS ABUSE, UNCOMPLICATED 02/05/2020 CARMELINA CROWLEYINE E PRINTMAKER Ot F17.210 NICOTINE DEPENDENCE, CIGARETTES, UNCOMPL 02/05/2020 CARMELINA CROWLEYINE E PRINTMAKER Ot G47.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 02/05/2020 CARMELINA CROWLEYINE E PRINTMAKER Ot J18.1 LOBAR PNEUMONIA, UNSPECIFIED ORGANISM 02/05/2020 CARMELINA CROWLEYINE E PRINTMAKER Ot J30.9 ALLERGIC RHINITIS, UNSPECIFIED 02/05/2020 CARMELINA CROWLEYINE E PRINTMAKER Ot J44.9 CHRONIC OBSTRUCTIVE PULMONARY DISEASE, U 02/05/2020 CARMELINA CROWLEYINE E PRINTMAKER Ot Z12.2 ENCNTR SCREEN FOR MALIGNANT NEOPLASM OF 02/05/2020 CARLINELUKASZ COX DEJA Ot Z99.81 DEPENDENCE ON SUPPLEMENTAL OXYGEN 02/05/2020 RUDOLPH KENT DO Ot Z45.2 ENCOUNTER FOR ADJUSTMENT AND MANAGEMENT 02/05/2020 SARAH ROBERTSON Ot 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, CERVICOTHORACIC REGIO 02/05/2020 SARAH ROBERTSON Ot M48.02 SPINAL STENOSIS, CERVICAL REGION 02/05/2020 SARAH ROBERTSON Ot M50.11 CERV DISC DISORDER WITH RADICULOPATHY, H 02/05/2020 SARAH ROBERTSON Ot M50.121 CERVICAL DISC DISORDER AT C4-C5 LEVEL [place] 02/05/2020 ARTEMIO APARICIO MD Ot A41. 9 SEPSIS, UNSPECIFIED ORGANISM 02/05/2020 ARTEMIO APARICIO MD Ot E11. 40 TYPE 2 DIABETES MELLITUS WITH DIABETIC N 02/05/2020 ARTEMIO APARICIO MD Ot E66. 9 OBESITY, UNSPECIFIED 02/05/2020 ARTEMIO APARICIO MD Ot E78. 00 PURE HYPERCHOLESTEROLEMIA, UNSPECIFIED 02/05/2020 ARTEMIO APARICIO MD Ot E87. 5 HYPERKALEMIA 02/05/2020 ARTEMIO APARICIO MD Ot F17.210 NICOTINE DEPENDENCE, CIGARETTES, UNCOMPL 02/05/2020 ARTEMIO APARICIO MD Ot F32. 9 MAJOR DEPRESSIVE DISORDER, SINGLE EPISOD 02/05/2020 ARTEMIO APARICIO MD Ot F41. 9 ANXIETY DISORDER, UNSPECIFIED 02/05/2020 ARTEMIO APARICIO MD Ot I11. 0 HYPERTENSIVE HEART DISEASE WITH HEART FA 02/05/2020 ARTEMIO APARICIO MD Ot I25. 10 ATHSCL HEART DISEASE OF [place] CORONARY 02/05/2020 ARTEMIO APARICIO MD Ot I50. 9 HEART FAILURE, UNSPECIFIED 02/05/2020 ARTEMIO APARICIO MD Ot J18. 9 PNEUMONIA, UNSPECIFIED ORGANISM 02/05/2020 ARTEMIO APARICIO MD Ot J30. 2 OTHER SEASONAL ALLERGIC RHINITIS 02/05/2020 ARTEMIO APARICIO MD, Ot J44. 9 CHRONIC OBSTRUCTIVE PULMONARY DISEASE, U 02/05/2020 ALESSANDRA MD, ARTEMIO M Ot J96. 21 ACUTE AND CHRONIC RESPIRATORY FAILURE [place] 02/05/2020 ARTEMIO APARICIO MD, Ot J96. 22 ACUTE AND CHRONIC RESPIRATORY FAILURE [place] 02/05/2020 ARTEMIO APARICIO MD, Ot K21. 9 GASTRO-ESOPHAGEAL REFLUX DISEASE WITHOUT 02/05/2020 ARTEMIO APARICIO MD, Ot M19. 91 PRIMARY OSTEOARTHRITIS, UNSPECIFIED SITE 02/05/2020 ARTEMIO APARICIO MD Ot M54. 9 DORSALGIA, UNSPECIFIED 02/05/2020 ARTEMIO APARICIO MD, Ot M79. 7 FIBROMYALGIA 02/05/2020 ARTEMIO APARICIO MD, Ot N17. 9 ACUTE KIDNEY FAILURE, UNSPECIFIED 02/05/2020 ARTEMIO APARICIO MD, Ot R65. 21 SEVERE SEPSIS WITH SEPTIC SHOCK 02/05/2020 ARTEMIO APARICIO MD Ot Z66 DO NOT RESUSCITATE 02/05/2020 ARTEMIO APARICIO MD, Ot Z68. 33 BODY MASS INDEX (BMI) 33.0-33.9, ADULT 02/05/2020 ARTEMIO APARICIO MD Ot Z79. 4 JAIL (CURRENT) USE OF INSULIN 02/05/2020 ARTEMIO APARICIO MD Ot Z86. 14 PERSONAL HISTORY OF [place]ETHIC[place] RESIS ST 02/05/2020 ARTEMIO APARICIO MD Ot Z95. 5 PRESENCE OF CORONARY ANGIOPLASTY IMPLANT 02/05/2020 ARTEMIO APARICIO MD Ot Z99. 81 DEPENDENCE ON SUPPLEMENTAL OXYGEN 02/06/2020 ARTEMIO APARICIO MD, Ot A41. 9 SEPSIS, UNSPECIFIED ORGANISM 02/06/2020 ARTEMIO APARICIO MD Ot E11. 40 TYPE 2 DIABETES MELLITUS WITH DIABETIC N 02/06/2020 ARTEMIO APARICIO MD Ot E66. 9 OBESITY, UNSPECIFIED 02/06/2020 ARTEMIO APARICIO MD Ot E78. 00 PURE HYPERCHOLESTEROLEMIA, UNSPECIFIED 02/06/2020 ARTEMIO APARICIO MD Ot E87. 5 HYPERKALEMIA 02/06/2020 ARTEMIO APARICIO MD Ot F17.210 NICOTINE DEPENDENCE, CIGARETTES, UNCOMPL 02/06/2020 ARTEMIO APARICIO MD Ot F32. 9 MAJOR DEPRESSIVE DISORDER, SINGLE EPISOD 02/06/2020 ARTEMIO APARICIO MD, Ot F41. 9 ANXIETY DISORDER, UNSPECIFIED 02/06/2020 ARTEMIO APARICIO MD Ot I11. 0 HYPERTENSIVE HEART DISEASE WITH HEART FA 02/06/2020 ARTEMIO APARICIO MD, Ot I25. 10 ATHSCL HEART DISEASE OF [place] CORONARY 02/06/2020 ARTEMIO APARICIO MD, Ot I50. 9 HEART FAILURE, UNSPECIFIED 02/06/2020 ARTEMIO APARICIO MD, Ot J18. 9 PNEUMONIA, UNSPECIFIED ORGANISM 02/06/2020 ARTEMIO APARICIO MD, Ot J30. 2 OTHER SEASONAL ALLERGIC RHINITIS 02/06/2020 ARTEMIO APARICIO MD, Ot J44. 9 CHRONIC OBSTRUCTIVE PULMONARY DISEASE, U 02/06/2020 ARTEMIO APARICIO MD, Ot J96. 21 ACUTE AND CHRONIC RESPIRATORY FAILURE [place] 02/06/2020 ARTEMIO APARICIO MD, Ot J96. 22 ACUTE AND CHRONIC RESPIRATORY FAILURE [place] 02/06/2020 ARTEMIO APARICIO MD, Ot K21. 9 GASTRO-ESOPHAGEAL REFLUX DISEASE WITHOUT 02/06/2020 ARTEMIO APARICIO MD Ot M19. 91 PRIMARY OSTEOARTHRITIS, UNSPECIFIED SITE 02/06/2020 ARTEMIO APARICIO MD, Ot M54. 9 DORSALGIA, UNSPECIFIED 02/06/2020 ARTEMIO APARICIO MD Ot M79. 7 FIBROMYALGIA 02/06/2020 ARTEMIO APARICIO MD, Ot N17. 9 ACUTE KIDNEY FAILURE, UNSPECIFIED 02/06/2020 ARTEMIO APARICIO MD Ot R65. 21 SEVERE SEPSIS WITH SEPTIC SHOCK 02/06/2020 ARTEMIO APARICIO MD Ot Z66 DO NOT RESUSCITATE 02/06/2020 ARTEMIO APARICIO MD, Ot Z68. 33 BODY MASS INDEX (BMI) 33.0-33.9, ADULT 02/06/2020 ARTEMIO APARICIO MD Ot Z79. 4 ROLE PLAYER (CURRENT) USE OF INSULIN 02/06/2020 ARTEMIO APARICIO MD Ot Z86. 14 PERSONAL HISTORY OF [place] RESIS ST 02/06/2020 ARTEMIO APARICIO MD Ot Z95. 5 PRESENCE OF CORONARY ANGIOPLASTY IMPLANT 02/06/2020 ARTEMIO APARICIO MD Ot Z99. 81 DEPENDENCE ON SUPPLEMENTAL OXYGEN 02/06/2020 CHA VERDUGO DO Ot 879.2 OPN WND ANTERIOR ABDOMEN 02/06/2020 LUCINACHA DIANA DO Ot E000.8 OTHER EXTERNAL CAUSE STATUS 02/06/2020 CHA VERDUGO DO Ot E928.9 ACCIDENT NOS 02/06/2020 JUAN LICONA MD Ot 272. 4 HYPERLIPIDEMIA NEC/NOS 02/06/2020 JUAN LICONA MD Ot 397. 0 TRICUSPID VALVE DISEASE 02/06/2020 JUAN LICONA MD Ot 424. 0 MITRAL VALVE DISORDER 02/06/2020 JUAN LICONA MD Ot 786. 09 RESPIRATORY ABNORM NEC 02/06/2020 JUAN LICONA MD Ot 786. 50 CHEST PAIN NOS 02/06/2020 JUAN LICONA MD Ot V46. 2 SUPPLEMENTAL OXYGEN 02/06/2020 JUAN LICONA MD Ot 272. 4 HYPERLIPIDEMIA NEC/NOS 02/06/2020 JUAN LICONA MD Ot 786. 09 RESPIRATORY ABNORM NEC 02/06/2020 JUAN LICONA MD Ot 786. 50 CHEST PAIN NOS 02/06/2020 JUAN LICONA MD Ot V46. 2 SUPPLEMENTAL OXYGEN 02/06/2020 RUDOLPH KENT DO Ot V76.12 OTH SCREEN MAMMO-MALIGN NEOPLASM OF [place] 02/06/2020 QING TAO DO Ot 305. 1 TOBACCO USE DISORDER 02/06/2020 QING TAO DO Ot 496 CHR AIRWAY OBSTRUCT NEC 02/06/2020 QING TAO DO Ot 786. 09 RESPIRATORY ABNORM NEC 02/06/2020 KASIE DPM, ANDREA Q Ot 355. 5 TARSAL TUNNEL SYNDROME 02/06/2020 LUCINACHA DIANA DO Ot V72.84 EXAM PRE-OPERATIVE NOS 02/06/2020 LUCINA CHA VILLALPANDO Ot 530.10 ESOPHAGITIS NOS 02/06/2020 LUCINACHA DIANA DO Ot 553.3 DIAPHRAGMATIC HERNIA 02/06/2020 LUCINACHA DIANA DO Ot 787.20 DYSPHAGIA, UNSPECIFIED 02/06/2020 JIMMY KENT DRAFTING LAYOUT WORKER Ot 486 PNEUMONIA, ORGANISM NOS 02/06/2020 JIMMY KENT DRAFTING LAYOUT WORKER Ot 789.00 ABDOMINAL PAIN, UNSPECIFIED SITE 02/06/2020 JIMMY KENT DRAFTING LAYOUT WORKER Ot 959.6 HIP THIGH INJURY NOS 02/06/2020 JIMMY KENT DRAFTING LAYOUT WORKER Ot E000.8 OTHER EXTERNAL CAUSE STATUS 02/06/2020 JIMMY KENT DRAFTING LAYOUT WORKER Ot E849.4 ACCID IN RECREATION AREA 02/06/2020 JIMMY KENT DRAFTING LAYOUT WORKER Ot E888.9 FALL NOS 02/06/2020 [place] DC, PETRA Raymond Ot 724. 5 BACKACHE NOS 02/06/2020 [place] DC, PETRA Raymond Ot 786. 50 CHEST PAIN NOS 02/06/2020 [place] DC, PETRA Raymond Ot 724. 1 PAIN IN THORACIC SPINE 02/06/2020 [place] DC, PETRA Raymond Ot 786. 50 CHEST PAIN NOS 02/06/2020 YOLI VILLALPANDO, RUDOLPH Raymond Ot 414.00 CORON ATHEROSCLER NOS TYPE VESSEL, NATIV 02/06/2020 YOLI VILLALPANDO, RUDOLPH Raymond Ot 786.50 CHEST PAIN NOS 02/06/2020 YOLI VILLALPANDO, RUDOLPH Raymond Ot I25.10 ATHSCL HEART DISEASE OF [place] CORONARY 02/06/2020 RUDOLPH KENT DO Ot R07.9 CHEST PAIN, UNSPECIFIED 02/06/2020 [facility] CHA VILLALPANDO Ot R10.9 UNSPECIFIED ABDOMINAL PAIN 02/06/2020 LUCINA DO, CHA Ot Z01.818 ENCOUNTER FOR OTHER PREPROCEDURAL EXAMIN 02/06/2020 CHA VERDUGO DO Ot 553.20 VENTRAL HERNIA NOS 02/06/2020 [facility] CHA VILLALPANDO Ot V81.5 SCREEN FOR NEPHROPATHY 02/06/2020 LUKASZ CROWLEY APRN Ot F17.210 NICOTINE DEPENDENCE, CIGARETTES, UNCOMPL 02/06/2020 LUKASZ CROWLEY APRN Ot J44.9 CHRONIC OBSTRUCTIVE PULMONARY DISEASE, U 02/06/2020 LUKASZ CROWLEY APRN Ot R06.00 DYSPNEA, UNSPECIFIED 02/06/2020 FRADNY DE LA ROSA Ot E11.9 TYPE 2 DIABETES MELLITUS WITHOUT COMPLIC 02/06/2020 FRANDY DE LA ROSA Ot E78.2 MIXED HYPERLIPIDEMIA 02/06/2020 FRANDY DE LA ROSA Ot I10 ESSENTIAL (PRIMARY) HYPERTENSION 02/06/2020 FRANDY DE LA ROSA Ot I25.10 ATHSCL HEART DISEASE OF [place] CORONARY 02/06/2020 FRANDY DE LA ROSA Ot E11.9 TYPE 2 DIABETES MELLITUS WITHOUT COMPLIC 02/06/2020 FRANDY DE LA ROSA Ot E78.2 MIXED HYPERLIPIDEMIA 02/06/2020 FRANDY DE LA ROSA Ot I10 ESSENTIAL (PRIMARY) HYPERTENSION 02/06/2020 FRANDY DE LA ROSA Ot I25.10 ATHSCL HEART DISEASE OF [place] CORONARY 02/06/2020 LUKASZ CROWLEY APRN Ot F17.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, UNSPECIFIED, UNCOMP 02/06/2020 LUKASZ CROWLEY APRN Ot J44.9 CHRONIC OBSTRUCTIVE PULMONARY DISEASE, U 02/06/2020 RUDOLPH KENT DO, Ot M94.8X6 OTHER SPECIFIED DISORDERS OF [place], 02/06/2020 RUDOLPH KENT DO, Ot S83.242A OTH TEAR OF MEDIAL MENISCUS, CURRENT INJ 02/06/2020 RUDOLPH KENT DO, Ot S83.282A OTH TEAR OF LAT MENSC, CURRENT INJURY, L 02/06/2020 RUDOLPH KENT DO, Ot X58.XXXA EXPOSURE TO OTHER SPECIFIED FACTORS, INI 02/06/2020 RUDOLPH KENT DO, Ot Y99.8 OTHER EXTERNAL CAUSE STATUS 02/06/2020 RUDOLPH KENT DO, Ot Z12.31 ENCNTR SCREEN MAMMOGRAM FOR MALIGNANT NE 02/06/2020 RUDOLPH KENT DO, Ot M40.209 UNSPECIFIED KYPHOSIS, SITE UNSPECIFIED 02/06/2020 RUDOLPH KENT DO, Ot M85.852 OTH DISRD OF BONE DENSITY AND STRUCTURE, 02/06/2020 RUDOLPH KENT DO, Ot Z78.0 ASYMPTOMATIC MENOPAUSAL STATE 02/06/2020 EARNESTINE ALEXANDRE, RAY Davis Ot L98 .9 DISORDER OF THE SKIN AND SUBCUTANEOUS TI 02/06/2020 RUDOLPH KENT DO, Ot M77.32 CALCANEAL SPUR, LEFT FOOT 02/06/2020 RUDOLPH KENT DO, Ot S79.912A UNSPECIFIED INJURY OF LEFT HIP, INITIAL 02/06/2020 RUDOLPH KENT DO, Ot W19.XXXA UNSPECIFIED FALL, INITIAL ENCOUNTER 02/06/2020 RUDOLPH KENT DO, Ot F09 UNSP MENTAL DISORDER DUE TO KNOWN PHYSIO 02/06/2020 YOLI VILLALPANDO, RUDOLPH Raymond Ot G43.909 MIGRAINE, UNSP, NOT INTRACTABLE, WITHOUT 02/06/2020 KENT DO, RUDOLPH Raymond Ot W19.XXXA UNSPECIFIED FALL, INITIAL ENCOUNTER 02/06/2020 YOLI VILLALPANDO, RUDOLPH Raymond Ot M25.78 OSTEOPHYTE, VERTEBRAE 02/06/2020 KENT DO, RUDOLPH Raymond Ot M43.16 SPONDYLOLISTHESIS, LUMBAR REGION 02/06/2020 KENT DO, RUDOLPH Raymond Ot M46.86 OTHER SPECIFIED INFLAMMATORY SPONDYLOPAT 02/06/2020 KENT DO, RUDOLPH Raymond Ot M47.27 OTHER SPONDYLOSIS WITH RADICULOPATHY, CATHLEEN 02/06/2020 YOLI VILLALPANDO, RUDOLPH Raymond Ot M48.061 SPINAL STENOSIS, LUMBAR REGION WITHOUT N 02/06/2020 YOLI VILLALPANDO, RUDOLPH Raymond Ot M51.16 INTERVERTEBRAL DISC DISORDERS W RADICULO 02/06/2020 YOLI VILLALPANDO, RUDOLPH Raymond Ot M99.73 CONN TISS AND DISC STENOS OF INTVRT FORA 02/06/2020 YOLI VILLALPANDO, RUDOLPH Raymond Ot S99.912A UNSPECIFIED INJURY OF LEFT ANKLE, INITIA 02/06/2020 JUAN LICONA MD Ot E11. 51 TYPE 2 DIABETES W DIABETIC PERIPHERAL AN 02/06/2020 JUAN LICONA MD Ot E78. 2 MIXED HYPERLIPIDEMIA 02/06/2020 JUAN LICONA MD Ot R06. 09 OTHER FORMS OF DYSPNEA 02/06/2020 JUAN LICONA MD Ot R07. 89 OTHER CHEST PAIN 02/06/2020 JUAN LICONA MD Ot E11. 51 TYPE 2 DIABETES W DIABETIC PERIPHERAL AN 02/06/2020 JUAN LICONA MD Ot E78. 2 MIXED HYPERLIPIDEMIA 02/06/2020 JUAN LICONA MD Ot R06. 09 OTHER FORMS OF DYSPNEA 02/06/2020 JUAN LICONA MD Ot R07. 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, UNSPECIFIED, UNCOMP 02/06/2020 LUKASZ CROWLEY APRN Ot G47.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 02/06/2020 CARLINE, LUKASZ E PRINTMAKER Ot J30.9 ALLERGIC RHINITIS, UNSPECIFIED 02/06/2020 CARLINE LUKASZ E PRINTMAKER Ot J42 UNSPECIFIED CHRONIC BRONCHITIS 02/06/2020 CARLINE LUKASZ E PRINTMAKER Ot J44.9 CHRONIC OBSTRUCTIVE PULMONARY DISEASE, U 02/06/2020 CARMELINA CROWLEYINE E PRINTMAKER Ot Z99.81 DEPENDENCE ON SUPPLEMENTAL OXYGEN 02/06/2020 CARLINE LUKASZ E PRINTMAKER Ot F12.10 CANNABIS ABUSE, UNCOMPLICATED 02/06/2020 CARLINE, LUKASZ E PRINTMAKER Ot F17.210 NICOTINE DEPENDENCE, CIGARETTES, UNCOMPL 02/06/2020 CARLINE, LUKASZ E PRINTMAKER Ot G47.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 02/06/2020 CARLINECARMELINALUKASZ E PRINTMAKER Ot J18.1 LOBAR PNEUMONIA, UNSPECIFIED ORGANISM 02/06/2020 CAMRELINA CROWLEYINE E PRINTMAKER Ot J30.9 ALLERGIC RHINITIS, UNSPECIFIED 02/06/2020 CARLINELUKASZ Erich PRINTMAKER Ot J44.9 CHRONIC OBSTRUCTIVE PULMONARY DISEASE, U 02/06/2020 LUKASZ CROWLEY PRINTMAKER Ot Z12.2 ENCNTR SCREEN FOR MALIGNANT NEOPLASM OF 02/06/2020 CARMELINA CROWLEYINE Erich PRINTMAKER Ot Z99.81 DEPENDENCE ON SUPPLEMENTAL OXYGEN 02/06/2020 RUDOLPH KENT DO Ot Z45.2 ENCOUNTER FOR ADJUSTMENT AND MANAGEMENT 02/06/2020 SARAH ROBERTSON Ot 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, CERVICOTHORACIC REGIO 02/06/2020 SARAH ROBERTSON Ot M48.02 SPINAL STENOSIS, CERVICAL REGION 02/06/2020 SARAH ROBERTSON Ot M50.11 CERV DISC DISORDER WITH RADICULOPATHY, H 02/06/2020 SARAH ROBERTSON Ot M50.121 CERVICAL DISC DISORDER AT C4-C5 LEVEL [place] 02/06/2020 ALESSANDRA ALEXANDRE, ARTEMIO Morales Ot A41. 9 SEPSIS, UNSPECIFIED ORGANISM 02/06/2020 ARTEMIO APARICIO MD Ot D50. 9 IRON DEFICIENCY ANEMIA, UNSPECIFIED 02/06/2020 ARTEMIO APARICIO MD Ot E11. 40 TYPE 2 DIABETES MELLITUS WITH DIABETIC N 02/06/2020 ARTEMIO APARICIO MD Ot E66. 9 OBESITY, UNSPECIFIED 02/06/2020 ARTEMIO APARICIO MD Ot E78. 00 PURE HYPERCHOLESTEROLEMIA, UNSPECIFIED 02/06/2020 ARTEMIO APARICIO MD Ot E87. 5 HYPERKALEMIA 02/06/2020 ARTEMIO APARICIO MD Ot F17.210 NICOTINE DEPENDENCE, CIGARETTES, UNCOMPL 02/06/2020 ARTEMIO APARICIO MD Ot F32. 9 MAJOR DEPRESSIVE DISORDER, SINGLE EPISOD 02/06/2020 ARTEMIO APARICIO MD, Ot F41. 9 ANXIETY DISORDER, UNSPECIFIED 02/06/2020 ARTEMIO APARICIO MD Ot I11. 0 HYPERTENSIVE HEART DISEASE WITH HEART FA 02/06/2020 ARTEMIO APARICIO MD Ot I25. 10 ATHSCL HEART DISEASE OF [place] CORONARY 02/06/2020 ARTEMIO APARICIO MD Ot I50. 9 HEART FAILURE, UNSPECIFIED 02/06/2020 ARTEMIO APARICIO MD Ot J18. 9 PNEUMONIA, UNSPECIFIED ORGANISM 02/06/2020 ARTEMIO APARICIO MD Ot J30. 2 OTHER SEASONAL ALLERGIC RHINITIS 02/06/2020 ARTEMIO APARICIO MD Ot J44. 9 CHRONIC OBSTRUCTIVE PULMONARY DISEASE, U 02/06/2020 ARTEMIO APARICIO MD Ot J96. 21 ACUTE AND CHRONIC RESPIRATORY FAILURE [place] 02/06/2020 ARTEMIO APARICIO MD Ot J96. 22 ACUTE AND CHRONIC RESPIRATORY FAILURE [place] 02/06/2020 ARTEMIO APARICIO MD, Ot K21. 9 GASTRO-ESOPHAGEAL REFLUX DISEASE WITHOUT 02/06/2020 ARTEMIO APARICIO MD Ot M19. 91 PRIMARY OSTEOARTHRITIS, UNSPECIFIED SITE 02/06/2020 ARTEMIO APARICIO MD, Ot M54. 9 DORSALGIA, UNSPECIFIED 02/06/2020 ARTEMIO APARICIO MD Ot M79. 7 FIBROMYALGIA 02/06/2020 ARTEMIO APARICIO MD Ot N17. 9 ACUTE KIDNEY FAILURE, UNSPECIFIED 02/06/2020 ARTEMIO APARICIO MD Ot R65. 21 SEVERE SEPSIS WITH SEPTIC SHOCK 02/06/2020 ARTEMIO APARICIO MD Ot Z66 DO NOT RESUSCITATE 02/06/2020 ARTEMIO APARICIO MD Ot Z68. 33 BODY MASS INDEX (BMI) 33.0-33.9, ADULT 02/06/2020 ARTEMIO APARICIO MD, Ot Z79. 4 JAIL (CURRENT) USE OF INSULIN 02/06/2020 ARTEMIO APARICIO MD Ot Z86. 14 PERSONAL HISTORY OF METHICILLIN RESIS ST 02/06/2020 ARTEMIO APARICIO MD Ot Z95. 5 PRESENCE OF CORONARY ANGIOPLASTY IMPLANT 02/06/2020 ARTEMIO APARICIO MD Ot Z99. 81 DEPENDENCE ON SUPPLEMENTAL OXYGEN 02/07/2020 ARTEMIO APARICIO MD Ot A41. 9 SEPSIS, UNSPECIFIED ORGANISM 02/07/2020 ARTEMIO APARICIO MD, Ot D50. 9 IRON DEFICIENCY ANEMIA, UNSPECIFIED 02/07/2020 ARTEMIO APARICIO MD Ot E11. 40 TYPE 2 DIABETES MELLITUS WITH DIABETIC N 02/07/2020 ARTEMIO APARICIO MD Ot E66. 9 OBESITY, UNSPECIFIED 02/07/2020 ARTEMIO APARICIO MD Ot E78. 00 PURE HYPERCHOLESTEROLEMIA, UNSPECIFIED 02/07/2020 ARTEMIO APARICIO MD Ot E87. 5 HYPERKALEMIA 02/07/2020 ARTEMIO APARICIO MD Ot F17.210 NICOTINE DEPENDENCE, CIGARETTES, UNCOMPL 02/07/2020 ARTEMIO APARICIO MD Ot F32. 9 MAJOR DEPRESSIVE DISORDER, SINGLE EPISOD 02/07/2020 ARTEMIO APARICIO MD, Ot F41. 9 ANXIETY DISORDER, UNSPECIFIED 02/07/2020 ARTEMIO APARICIO MD Ot I11. 0 HYPERTENSIVE HEART DISEASE WITH HEART FA 02/07/2020 ARTEMIO APARICIO MD Ot I25. 10 ATHSCL HEART DISEASE OF [place] CORONARY 02/07/2020 ARTEMIO APARICIO MD Ot I50. 9 HEART FAILURE, UNSPECIFIED 02/07/2020 ARTEMIO APARICIO MD, Ot J18. 9 PNEUMONIA, UNSPECIFIED ORGANISM 02/07/2020 ARTEMIO APARICIO MD, Ot J30. 2 OTHER SEASONAL ALLERGIC RHINITIS 02/07/2020 ARTEMIO APARICIO MD Ot J44. 9 CHRONIC OBSTRUCTIVE PULMONARY DISEASE, U 02/07/2020 ARTEMIO APARICIO MD Ot J96. 21 ACUTE AND CHRONIC RESPIRATORY FAILURE [place] 02/07/2020 ARTEMIO APARICIO MD Ot J96. 22 ACUTE AND CHRONIC RESPIRATORY FAILURE [place] 02/07/2020 ARTEMIO APARICIO MD Ot K21. 9 GASTRO-ESOPHAGEAL REFLUX DISEASE WITHOUT 02/07/2020 ALESSANDRA ALEXANDRE, ARTEMIO Morales Ot M19. 91 PRIMARY OSTEOARTHRITIS, UNSPECIFIED SITE 02/07/2020 ARTEMIO APARICIO MD Ot M54. 9 DORSALGIA, UNSPECIFIED 02/07/2020 ARTEMIO APARICIO MD Ot M79. 7 FIBROMYALGIA 02/07/2020 ARTEMIO APARICIO MD, Ot N17. 9 ACUTE KIDNEY FAILURE, UNSPECIFIED 02/07/2020 ARTEMIO APARICIO MD Ot R65. 21 SEVERE SEPSIS WITH SEPTIC SHOCK 02/07/2020 ARTEMIO APARICIO MD Ot Z66 DO NOT RESUSCITATE 02/07/2020 ARTEMIO APARICIO MD Ot Z68. 33 BODY MASS INDEX (BMI) 33.0-33.9, ADULT 02/07/2020 ARTEMIO APARICIO MD, Ot Z79. 4 ROLE PLAYER (CURRENT) USE OF INSULIN 02/07/2020 ARTEMIO APARICIO MD Ot Z86. 14 PERSONAL HISTORY OF [place]IC[place] RESIS ST 02/07/2020 ARTEMIO APARICIO MD Ot Z95. 5 PRESENCE OF CORONARY ANGIOPLASTY IMPLANT 02/07/2020 ARTEMIO APARICIO MD Ot Z99. 81 DEPENDENCE ON SUPPLEMENTAL OXYGEN 02/08/2020 ARTEMIO APARICIO MD Ot A41. 9 SEPSIS, UNSPECIFIED ORGANISM 02/08/2020 ARTEMIO APARICIO MD Ot D50. 9 IRON DEFICIENCY ANEMIA, UNSPECIFIED 02/08/2020 ARTEMIO APARICIO MD Ot E11. 40 TYPE 2 DIABETES MELLITUS WITH DIABETIC N 02/08/2020 ARTEMIO APARICIO MD Ot E66. 9 OBESITY, UNSPECIFIED 02/08/2020 ARTEMIO APARICIO MD Ot E78. 00 PURE HYPERCHOLESTEROLEMIA, UNSPECIFIED 02/08/2020 ARTEMIO APARICIO MD Ot E87. 5 HYPERKALEMIA 02/08/2020 ARTEMIO APARICIO MD Ot F17.210 NICOTINE DEPENDENCE, CIGARETTES, UNCOMPL 02/08/2020 ARTEMIO APARICIO MD Ot F32. 9 MAJOR DEPRESSIVE DISORDER, SINGLE EPISOD 02/08/2020 ARTEMIO APARICIO MD Ot F41. 9 ANXIETY DISORDER, UNSPECIFIED 02/08/2020 ARTEMIO APARICIO MD Ot I11. 0 HYPERTENSIVE HEART DISEASE WITH HEART FA 02/08/2020 ARTEMIO APARICIO MD, Ot I25. 10 ATHSCL HEART DISEASE OF [place] CORONARY 02/08/2020 ARTEMIO APARICIO MD Ot I50. 9 HEART FAILURE, UNSPECIFIED 02/08/2020 ARTEMIO APARICIO MD, Ot J18. 9 PNEUMONIA, UNSPECIFIED ORGANISM 02/08/2020 ARTEMIO APARICIO MD Ot J30. 2 OTHER SEASONAL ALLERGIC RHINITIS 02/08/2020 ARTEMIO APARICIO MD, Ot J44. 9 CHRONIC OBSTRUCTIVE PULMONARY DISEASE, U 02/08/2020 ARTEMIO APARICIO MD, Ot J96. 21 ACUTE AND CHRONIC RESPIRATORY FAILURE [place] 02/08/2020 ARTEMIO APARICIO MD, Ot J96. 22 ACUTE AND CHRONIC RESPIRATORY FAILURE [place] 02/08/2020 ARTEMIO APARICIO MD, Ot K21. 9 GASTRO-ESOPHAGEAL REFLUX DISEASE WITHOUT 02/08/2020 ARTEMIO APARICIO MD Ot M19. 91 PRIMARY OSTEOARTHRITIS, UNSPECIFIED SITE 02/08/2020 ARTEMIO APARICIO MD Ot M54. 9 DORSALGIA, UNSPECIFIED 02/08/2020 ARTEMIO APARICIO MD Ot M79. 7 FIBROMYALGIA 02/08/2020 ARTEMIO APARICIO MD Ot N17. 9 ACUTE KIDNEY FAILURE, UNSPECIFIED 02/08/2020 ARTEMIO APARICIO MD Ot R65. 21 SEVERE SEPSIS WITH SEPTIC SHOCK 02/08/2020 ARTEMIO APARICIO MD Ot Z66 DO NOT RESUSCITATE 02/08/2020 ARTEMIO APARICIO MD Ot Z68. 33 BODY MASS INDEX (BMI) 33.0-33.9, ADULT 02/08/2020 ARTEMIO APARICIO MD Ot Z79. 4 ROLE PLAYER (CURRENT) USE OF INSULIN 02/08/2020 ARTEMIO APARICIO MD Ot Z86. 14 PERSONAL HISTORY OF METHIC[place]IN RESIS ST 02/08/2020 ARTEMIO APARICIO MD Ot Z95. 5 PRESENCE OF CORONARY ANGIOPLASTY IMPLANT 02/08/2020 ARTEMIO APARICIO MD Ot Z99. 81 DEPENDENCE ON SUPPLEMENTAL OXYGEN 02/09/2020 ARTEMIO APARICIO MD Ot A41. 9 SEPSIS, UNSPECIFIED ORGANISM 02/09/2020 ARTEMIO APARICIO MD, Ot D50. 9 IRON DEFICIENCY ANEMIA, UNSPECIFIED 02/09/2020 ARTEMIO APARICIO MD Ot E11. 40 TYPE 2 DIABETES MELLITUS WITH DIABETIC N 02/09/2020 ARTEMIO APARICIO MD Ot E66. 9 OBESITY, UNSPECIFIED 02/09/2020 ARTEMIO APARICIO MD Ot E78. 00 PURE HYPERCHOLESTEROLEMIA, UNSPECIFIED 02/09/2020 ARTEMIO APARICIO MD Ot E87. 5 HYPERKALEMIA 02/09/2020 ARTEMOI APARICIO MD Ot F17.210 NICOTINE DEPENDENCE, CIGARETTES, UNCOMPL 02/09/2020 ARTEMIO APARICIO MD Ot F32. 9 MAJOR DEPRESSIVE DISORDER, SINGLE EPISOD 02/09/2020 ARTEMIO APARICIO MD Ot F41. 9 ANXIETY DISORDER, UNSPECIFIED 02/09/2020 ARTEMIO APARICIO MD Ot I11. 0 HYPERTENSIVE HEART DISEASE WITH HEART FA 02/09/2020 ARTEMIO APARICIO MD Ot I25. 10 ATHSCL HEART DISEASE OF [place] CORONARY 02/09/2020 ARTEMIO APARICIO MD Ot I50. 9 HEART FAILURE, UNSPECIFIED 02/09/2020 ARTEMIO APARICIO MD Ot J18. 9 PNEUMONIA, UNSPECIFIED ORGANISM 02/09/2020 ARTEMIO APARICIO MD Ot J30. 2 OTHER SEASONAL ALLERGIC RHINITIS 02/09/2020 ARTEMIO APARICIO MD Ot J44. 9 CHRONIC OBSTRUCTIVE PULMONARY DISEASE, U 02/09/2020 ARTEMIO APARICIO MD Ot J96. 21 ACUTE AND CHRONIC RESPIRATORY FAILURE [place] 02/09/2020 ARTEMIO APARICIO MD Ot J96. 22 ACUTE AND CHRONIC RESPIRATORY FAILURE [place] 02/09/2020 RATEMIO APARICIO MD Ot K21. 9 GASTRO-ESOPHAGEAL REFLUX DISEASE WITHOUT 02/09/2020 ARTEMIO APARICIO MD Ot M19. 91 PRIMARY OSTEOARTHRITIS, UNSPECIFIED SITE 02/09/2020 ARTEMIO APARICIO MD Ot M54. 9 DORSALGIA, UNSPECIFIED 02/09/2020 ARTEMIO APARICIO MD Ot M79. 7 FIBROMYALGIA 02/09/2020 ARTEMIO APARICIO MD Ot N17. 9 ACUTE KIDNEY FAILURE, UNSPECIFIED 02/09/2020 ARTEMIO APARICIO MD Ot R65. 21 SEVERE SEPSIS WITH SEPTIC SHOCK 02/09/2020 ARTEMIO APARICIO MD Ot Z66 DO NOT RESUSCITATE 02/09/2020 ARTEMIO APARICIO MD Ot Z68. 33 BODY MASS INDEX (BMI) 33.0-33.9, ADULT 02/09/2020 ARTEMIO APARICIO MD Ot Z79. 4 ROLE PLAYER (CURRENT) USE OF INSULIN 02/09/2020 ARTEMIO APARICIO MD Ot Z86. 14 PERSONAL HISTORY OF METHICILLIN RESIS ST 02/09/2020 ARTEMIO APARICIO MD Ot Z95. 5 PRESENCE OF CORONARY ANGIOPLASTY IMPLANT 02/09/2020 ARTEMIO APARICIO MD Ot Z99. 81 DEPENDENCE ON SUPPLEMENTAL OXYGEN 02/09/2020 ARTEMIO APARICIO MD Ot A41. 9 SEPSIS, UNSPECIFIED ORGANISM 02/09/2020 ARTEMIO APARICIO MD Ot D50. 9 IRON DEFICIENCY ANEMIA, UNSPECIFIED 02/09/2020 ARTEMIO APARICIO MD Ot E11. 40 TYPE 2 DIABETES MELLITUS WITH DIABETIC N 02/09/2020 ARTEMIO APARICIO MD Ot E66. 9 OBESITY, UNSPECIFIED 02/09/2020 ARTEMIO APARICIO MD Ot E78. 00 PURE HYPERCHOLESTEROLEMIA, UNSPECIFIED 02/09/2020 ARTEMIO APARICIO MD Ot E87. 5 HYPERKALEMIA 02/09/2020 ARTEMIO APARICIO MD Ot F17.210 NICOTINE DEPENDENCE, CIGARETTES, UNCOMPL 02/09/2020 ARTEMIO APARICIO MD Ot F32. 9 MAJOR DEPRESSIVE DISORDER, SINGLE EPISOD 02/09/2020 ARTEMIO APARICIO MD Ot F41. 9 ANXIETY DISORDER, UNSPECIFIED 02/09/2020 ARTEMIO APARICIO MD Ot I11. 0 HYPERTENSIVE HEART DISEASE WITH HEART FA 02/09/2020 ARTEMIO APARICIO MD Ot I25. 10 ATHSCL HEART DISEASE OF [place] CORONARY 02/09/2020 ARTEMIO APARICIO MD Ot I50. 9 HEART FAILURE, UNSPECIFIED 02/09/2020 ARTEMIO APARICIO MD Ot J18. 9 PNEUMONIA, UNSPECIFIED ORGANISM 02/09/2020 ARTEMIO APARICIO MD Ot J30. 2 OTHER SEASONAL ALLERGIC RHINITIS 02/09/2020 ARTEMIO APARICIO MD Ot J44. 9 CHRONIC OBSTRUCTIVE PULMONARY DISEASE, U 02/09/2020 ARTEMIO APARICIO MD, Ot J96. 21 ACUTE AND CHRONIC RESPIRATORY FAILURE [place] 02/09/2020 ARTEMIO APARICIO MD, Ot J96. 22 ACUTE AND CHRONIC RESPIRATORY FAILURE [place] 02/09/2020 ARTEMIO APARICIO MD, Ot K21. 9 GASTRO-ESOPHAGEAL REFLUX DISEASE WITHOUT 02/09/2020 ARTEMIO APARICIO MD, Ot M19. 91 PRIMARY OSTEOARTHRITIS, UNSPECIFIED SITE 02/09/2020 ARTEMIO APARICIO MD, Ot M54. 9 DORSALGIA, UNSPECIFIED 02/09/2020 ARTEMIO APARICIO MD, Ot M79. 7 FIBROMYALGIA 02/09/2020 ARTEMIO APARICIO MD, Ot N17. 9 ACUTE KIDNEY FAILURE, UNSPECIFIED 02/09/2020 ARTEMIO APARICIO MD, Ot R65. 21 SEVERE SEPSIS WITH SEPTIC SHOCK 02/09/2020 ARTEMIO APARICIO MD Ot Z66 DO NOT RESUSCITATE 02/09/2020 ARTEMIO APARICIO MD, Ot Z68. 33 BODY MASS INDEX (BMI) 33.0-33.9, ADULT 02/09/2020 ARTEMIO APARICIO MD, Ot Z79. 4 ROLE PLAYER (CURRENT) USE OF INSULIN 02/09/2020 ARTEMIO APARICIO MD Ot Z86. 14 PERSONAL HISTORY OF METHICILLIN RESIS ST 02/09/2020 ARTEMIO APARICIO MD Ot Z95. 5 PRESENCE OF CORONARY ANGIOPLASTY IMPLANT 02/09/2020 ARTEMIO APARICIO MD Ot Z99. 81 DEPENDENCE ON SUPPLEMENTAL OXYGEN 02/09/2020 ARTEMIO APARICIO MD, Ot A41. 9 SEPSIS, UNSPECIFIED ORGANISM 02/09/2020 ARTEMIO APARICIO MD, Ot D50. 9 IRON DEFICIENCY ANEMIA, UNSPECIFIED 02/09/2020 ARTEMIO APARICIO MD Ot E11. 40 TYPE 2 DIABETES MELLITUS WITH DIABETIC N 02/09/2020 ARTEMIO APARICIO MD Ot E66. 9 OBESITY, UNSPECIFIED 02/09/2020 ARTEMIO APARICIO MD Ot E78. 00 PURE HYPERCHOLESTEROLEMIA, UNSPECIFIED 02/09/2020 ARTEMIO APARICIO MD, Ot E83. 42 HYPOMAGNESEMIA 02/09/2020 ARTEMIO APARICIO MD Ot E87. 5 HYPERKALEMIA 02/09/2020 ARTEMIO APARICIO MD, Ot E87. 6 HYPOKALEMIA 02/09/2020 ARTEMIO APARICIO MD Ot F17.210 NICOTINE DEPENDENCE, CIGARETTES, UNCOMPL 02/09/2020 ARTEMIO APARICIO MD Ot F32. 9 MAJOR DEPRESSIVE DISORDER, SINGLE EPISOD 02/09/2020 ARTEMIO APARICIO MD, Ot F41. 9 ANXIETY DISORDER, UNSPECIFIED 02/09/2020 ARTEMIO APARICIO MD Ot I11. 0 HYPERTENSIVE HEART DISEASE WITH HEART FA 02/09/2020 ARTEMIO APARICIO MD Ot I25. 10 ATHSCL HEART DISEASE OF [place] CORONARY 02/09/2020 ARTEMIO APARICIO MD Ot I50. 9 HEART FAILURE, UNSPECIFIED 02/09/2020 ARTEMIO APARICIO MD Ot J18. 9 PNEUMONIA, UNSPECIFIED ORGANISM 02/09/2020 ARTEMIO APARICIO MD Ot J30. 2 OTHER SEASONAL ALLERGIC RHINITIS 02/09/2020 ARTEMIO APARICIO MD Ot J44. 9 CHRONIC OBSTRUCTIVE PULMONARY DISEASE, U 02/09/2020 ARTEMIO APARICIO MD Ot J96. 21 ACUTE AND CHRONIC RESPIRATORY FAILURE [place] 02/09/2020 ARTEMIO APARICIO MD Ot J96. 22 ACUTE AND CHRONIC RESPIRATORY FAILURE [place] 02/09/2020 ARTEMIO APARICIO MD Ot K21. 9 GASTRO-ESOPHAGEAL REFLUX DISEASE WITHOUT 02/09/2020 ARTEMIO APARICIO MD Ot M19. 91 PRIMARY OSTEOARTHRITIS, UNSPECIFIED SITE 02/09/2020 ARTEMIO APARICIO MD Ot M54. 9 DORSALGIA, UNSPECIFIED 02/09/2020 ARTEMIO APARICIO MD Ot M79. 7 FIBROMYALGIA 02/09/2020 ARTEMIO APARICIO MD Ot N17. 9 ACUTE KIDNEY FAILURE, UNSPECIFIED 02/09/2020 ARTEMIO APARICIO MD Ot R65. 21 SEVERE SEPSIS WITH SEPTIC SHOCK 02/09/2020 ARTEMIO APARICIO MD Ot Z66 DO NOT RESUSCITATE 02/09/2020 ARTEMIO APARICIO MD Ot Z68. 33 BODY MASS INDEX (BMI) 33.0-33.9, ADULT 02/09/2020 ARTEMIO APARICIO MD Ot Z79. 4 JAIL (CURRENT) USE OF INSULIN 02/09/2020 ALESSANDRA MD, ARTEMIO M Ot Z95. 5 PRESENCE OF CORONARY ANGIOPLASTY IMPLANT 02/09/2020 ALESSANDRA ALEXANDRE, ARTEMIO Morales Ot Z99. 81 DEPENDENCE ON SUPPLEMENTAL OXYGEN 02/10/2020 [facility]A VILLALPANDO Ot 879.2 OPN WND ANTERIOR ABDOMEN 02/10/2020 [facility] CH[facility] VILLALPANDO Ot E000.8 OTHER EXTERNAL CAUSE STATUS 02/10/2020 [facility] CHA VILLALPANDO Ot E928.9 ACCIDENT NOS 02/10/2020 LIVAN ALEXANDRE, JUAN Raymond Ot 272. 4 HYPERLIPIDEMIA NEC/NOS 02/10/2020 JUAN LICONA MD Ot 397. 0 TRICUSPID VALVE DISEASE 02/10/2020 JUAN LICONA MD Ot 424. 0 MITRAL VALVE DISORDER 02/10/2020 JUAN LICONA MD Ot 786. 09 RESPIRATORY ABNORM NEC 02/10/2020 JUAN LICONA MD Ot 786. 50 CHEST PAIN NOS 02/10/2020 JUAN LICONA MD Ot V46. 2 SUPPLEMENTAL OXYGEN 02/10/2020 JUAN LICONA MD Ot 272. 4 HYPERLIPIDEMIA NEC/NOS 02/10/2020 JUAN LICONA MD Ot 786. 09 RESPIRATORY ABNORM NEC 02/10/2020 JUAN LICONA MD Ot 786. 50 CHEST PAIN NOS 02/10/2020 JUAN LICONA MD Ot V46. 2 SUPPLEMENTAL OXYGEN 02/10/2020 RUDOLPH KENT DO Ot V76.12 OTH SCREEN MAMMO-MALIGN NEOPLASM OF [place] 02/10/2020 QING TAO DO Ot 305. 1 TOBACCO USE DISORDER 02/10/2020 QING TAO DO Ot 496 CHR AIRWAY OBSTRUCT NEC 02/10/2020 QING TAO DO Ot 786. 09 RESPIRATORY ABNORM NEC 02/10/2020 KASIE DPM, ANDREA Q Ot 355. 5 TARSAL TUNNEL SYNDROME 02/10/2020 [facility].84 EXAM PRE-OPERATIVE NOS 02/10/2020 [facility] CH[facility] VILLALPANDO Ot 530.10 ESOPHAGITIS NOS 02/10/2020 [facility]ILLAL[facility] Ot 553.3 DIAPHRAGMATIC HERNIA 02/10/2020 [facility] CH[facility] [place]ILLAL[facility] Ot 787.20 DYSPHAGIA, UNSPECIFIED 02/10/2020 JIMMY KENT [employer]ING [employer] WORKER Ot 486 PNEUMONIA, ORGANISM NOS 02/10/2020 JIMMY KENT [employer]ING [employer] WORKER Ot 789.00 ABDOMINAL PAIN, UNSPECIFIED SITE 02/10/2020 JIMMY KENT [employer]ING [employer] WORKER Ot 959.6 HIP THIGH INJURY NOS 02/10/2020 JIMMY KENT D[employer]ING [employer] WORKER Ot E000.8 OTHER EXTERNAL CAUSE STATUS 02/10/2020 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 5 BACKACHE NOS 02/10/2020 [facility], PETRA Raymond Ot 786. 50 CHEST PAIN NOS 02/10/2020 [facility], PETRA Raymond Ot 724. 1 PAIN IN THORACIC SPINE 02/10/2020 [facility], PETRA Raymond Ot 786. 50 CHEST PAIN NOS 02/10/2020 KENT DO, RUDOLPH Raymond Ot 414.00 CORON ATHEROSCLER NOS TYPE VESSEL, NATIV 02/10/2020 RUDOLPH KENT DO Ot 786.50 CHEST PAIN NOS 02/10/2020 KENT DO, RUDOLPH Raymond Ot I25.10 ATHSCL HEART DISEASE OF [place] CORONARY 02/10/2020 RUDOLPH KENT DO Ot R07.9 CHEST PAIN, UNSPECIFIED 02/10/2020 [facility] CH[facility] VILLAL[facility]ANDO Ot R10.9 UNSPECIFIED ABDOMINAL PAIN 02/10/2020 [facility] VILLAL[facility]O Ot Z01.818 ENCOUNTER FOR OTHER PREPROCEDURAL EXAMIN 02/10/2020 CHA VERDUGO DO Ot 553.20 VENTRAL HERNIA NOS 02/10/2020 [facility] V81.5 SCREEN FOR NEPHROPATHY 02/10/2020 LUKASZ CROWLEY APRN Ot F17.210 NICOTINE DEPENDENCE, CIGARETTES, UNCOMPL 02/10/2020 LUKASZ CROWLEY APRN Ot J44.9 CHRONIC OBSTRUCTIVE PULMONARY DISEASE, U 02/10/2020 LUKASZ CROWLEY APRN Ot R06.00 DYSPNEA, UNSPECIFIED 02/10/2020 FRANDY DE LA ROSA Ot E11.9 TYPE 2 DIABETES MELLITUS WITHOUT COMPLIC 02/10/2020 FRANDY DE LA ROSA Ot E78.2 MIXED HYPERLIPIDEMIA 02/10/2020 JENORIS EVANS, FRANDY Aviles Ot I10 ESSENTIAL (PRIMARY) HYPERTENSION 02/10/2020 JENORIS EVANS, FRANDY Aviles Ot I25.10 ATHSCL HEART DISEASE OF [place] CORONARY 02/10/2020 JENORIS EVANS, FRANDY Aviles Ot E11.9 TYPE 2 DIABETES MELLITUS WITHOUT COMPLIC 02/10/2020 DORIS EVANS, FRANDY Aviles Ot E78.2 MIXED HYPERLIPIDEMIA 02/10/2020 WOOTEN-NORIS EVANS, FRANDY Aviles Ot I10 ESSENTIAL (PRIMARY) HYPERTENSION 02/10/2020 WOOTEN-NORIS EVANS, FRANDY Aviles Ot I25.10 ATHSCL HEART DISEASE OF [place] CORONARY 02/10/2020 LUKASZ CROWLEY APRN Ot F17.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, UNSPECIFIED, UNCOMP 02/10/2020 LUKASZ CROWLEY APRN Ot J44.9 CHRONIC OBSTRUCTIVE PULMONARY DISEASE, U 02/10/2020 RUDOLPH KENT DO, Ot M94.8X6 OTHER SPECIFIED DISORDERS OF [place], 02/10/2020 RUDOLPH KENT DO, Ot S83.242A OTH TEAR OF MEDIAL MENISCUS, CURRENT INJ 02/10/2020 RUDOLPH KENT DO, Ot S83.282A OTH TEAR OF LAT MENSC, CURRENT INJURY, L 02/10/2020 RUDOLPH KENT DO, Ot X58.XXXA EXPOSURE TO OTHER SPECIFIED FACTORS, INI 02/10/2020 RUDOLPH KENT DO, Ot Y99.8 OTHER EXTERNAL CAUSE STATUS 02/10/2020 RUDOLPH KENT DO, Ot Z12.31 ENCNTR SCREEN MAMMOGRAM FOR MALIGNANT NE 02/10/2020 RUDOLPH KENT DO, Ot M40.209 UNSPECIFIED KYPHOSIS, SITE UNSPECIFIED 02/10/2020 RUDOLPH KENT DO, Ot M85.852 OTH DISRD OF BONE DENSITY AND STRUCTURE, 02/10/2020 RUDOLPH KENT DO, Ot Z78.0 ASYMPTOMATIC MENOPAUSAL STATE 02/10/2020 EARNESTINE ALEXANDRE, RAY Davis Ot L98 .9 DISORDER OF THE SKIN AND SUBCUTANEOUS TI 02/10/2020 RUDOLPH KENT DO, Ot M77.32 CALCANEAL SPUR, LEFT FOOT 02/10/2020 RUDOLPH KENT DO, Ot S79.912A UNSPECIFIED INJURY OF LEFT HIP, INITIAL 02/10/2020 KENT DO, RUDOLPH Raymond Ot W19.XXXA UNSPECIFIED FALL, INITIAL ENCOUNTER 02/10/2020 YOLI VILLALPANDO, RUDOLPH Raymond Ot F09 UNSP MENTAL DISORDER DUE TO KNOWN PHYSIO 02/10/2020 KENT DO, RUDOLPH Raymond Ot G43.909 MIGRAINE, UNSP, NOT INTRACTABLE, WITHOUT 02/10/2020 KENT DO, RUDOLPH Raymond Ot W19.XXXA UNSPECIFIED FALL, INITIAL ENCOUNTER 02/10/2020 KENT DO, RUDOLPH Raymond Ot M25.78 OSTEOPHYTE, VERTEBRAE 02/10/2020 KENT DO, RUDOLPH Raymond Ot M43.16 SPONDYLOLISTHESIS, LUMBAR REGION 02/10/2020 KENT DO, RUDOLPH Raymond Ot M46.86 OTHER SPECIFIED INFLAMMATORY SPONDYLOPAT 02/10/2020 KENT DO, RUDOLPH Raymond Ot M47.27 OTHER SPONDYLOSIS WITH RADICULOPATHY, CATLHEEN 02/10/2020 KENT DO, RUDOLPH Raymond Ot M48.061 SPINAL STENOSIS, LUMBAR REGION WITHOUT N 02/10/2020 KENT DO, RUDOLPH Raymond Ot M51.16 INTERVERTEBRAL DISC DISORDERS W RADICULO 02/10/2020 KENT DO, RUDOLPH Raymond Ot M99.73 CONN TISS AND DISC STENOS OF INTVRT FORA 02/10/2020 KENT DO, RUDOLPH Raymond Ot S99.912A UNSPECIFIED INJURY OF LEFT ANKLE, INITIA 02/10/2020 JUAN LICONA MD Ot E11. 51 TYPE 2 DIABETES W DIABETIC PERIPHERAL AN 02/10/2020 JUAN LICONA MD Ot E78. 2 MIXED HYPERLIPIDEMIA 02/10/2020 JUAN LICONA MD Ot R06. 09 OTHER FORMS OF DYSPNEA 02/10/2020 JUAN LICONA MD Ot R07. 89 OTHER CHEST PAIN 02/10/2020 JUAN LICONA MD Ot E11. 51 TYPE 2 DIABETES W DIABETIC PERIPHERAL AN 02/10/2020 JUAN LICONA MD Ot E78. 2 MIXED HYPERLIPIDEMIA 02/10/2020 JUAN LICONA MD Ot R06. 09 OTHER FORMS OF DYSPNEA 02/10/2020 JUAN LICONA MD Ot R07. 89 OTHER CHEST PAIN 02/10/2020 LUKASZ CROWLEY APRN Ot F12.10 CANNABIS ABUSE, UNCOMPLICATED 02/10/2020 CARLINE, LUKASZ E PRINTMAKER Ot F17.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, UNSPECIFIED, UNCOMP 02/10/2020 CARLINE, LUKASZ E PRINTMAKER Ot G47.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 02/10/2020 CARLINE, LUKASZ E PRINTMAKER Ot J30.9 ALLERGIC RHINITIS, UNSPECIFIED 02/10/2020 CARLINE, LUKASZ E PRINTMAKER Ot J42 UNSPECIFIED CHRONIC BRONCHITIS 02/10/2020 CARLINE, LUKASZ E PRINTMAKER Ot J44.9 CHRONIC OBSTRUCTIVE PULMONARY DISEASE, U 02/10/2020 CARLINE, LUKASZ E PRINTMAKER Ot Z99.81 DEPENDENCE ON SUPPLEMENTAL OXYGEN 02/10/2020 CARLINE, LUKASZ E PRINTMAKER Ot F12.10 CANNABIS ABUSE, UNCOMPLICATED 02/10/2020 CARLINE, LUKASZ E PRINTMAKER Ot F17.210 NICOTINE DEPENDENCE, CIGARETTES, UNCOMPL 02/10/2020 CARLINE, LUKASZ E PRINTMAKER Ot G47.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 02/10/2020 CARMELINA CROWLEYINE E PRINTMAKER Ot J18.1 LOBAR PNEUMONIA, UNSPECIFIED ORGANISM 02/10/2020 CARLINE, LUKASZ E PRINTMAKER Ot J30.9 ALLERGIC RHINITIS, UNSPECIFIED 02/10/2020 CARLINE, LUKASZ E PRINTMAKER Ot J44.9 CHRONIC OBSTRUCTIVE PULMONARY DISEASE, U 02/10/2020 CARLINE, LUKASZ E PRINTMAKER Ot Z12.2 ENCNTR SCREEN FOR MALIGNANT NEOPLASM OF 02/10/2020 CARLINE, LUKASZ E PRINTMAKER Ot Z99.81 DEPENDENCE ON SUPPLEMENTAL OXYGEN 02/10/2020 RUDOLPH KENT DO Ot Z45.2 ENCOUNTER FOR ADJUSTMENT AND MANAGEMENT 02/10/2020 SARAH ROBERTSON Ot 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, CERVICOTHORACIC REGIO 02/10/2020 SARAH ROBERTSON Ot M48.02 SPINAL STENOSIS, CERVICAL REGION 02/10/2020 SARAH ROBERTSON Ot M50.11 CERV DISC DISORDER WITH RADICULOPATHY, H 02/10/2020 SARAH ROBERTSON Ot M50.121 CERVICAL DISC DISORDER AT C4-C5 LEVEL [place] 02/15/2020 LIVAN ALEXANDRE, JUAN Raymond Ot 272. 4 HYPERLIPIDEMIA NEC/NOS 02/15/2020 JUAN LICONA MD Ot 397. 0 TRICUSPID VALVE DISEASE 02/15/2020 JUAN LICONA MD Ot 424. 0 MITRAL VALVE DISORDER 02/15/2020 JUAN LICONA MD Ot 786. 09 RESPIRATORY ABNORM NEC 02/15/2020 JUAN LICONA MD Ot 786. 50 CHEST PAIN NOS 02/15/2020 JUAN LICONA MD Ot V46. 2 SUPPLEMENTAL OXYGEN 02/15/2020 JUAN LICONA MD Ot 272. 4 HYPERLIPIDEMIA NEC/NOS 02/15/2020 JUAN LICONA MD Ot 786. 09 RESPIRATORY ABNORM NEC 02/15/2020 JUAN LICONA MD Ot 786. 50 CHEST PAIN NOS 02/15/2020 JUAN LICONA MD Ot V46. 2 SUPPLEMENTAL OXYGEN 02/15/2020 RUDOLPH KENT DO Ot V76.12 OTH SCREEN MAMMO-MALIGN NEOPLASM OF [place] 02/15/2020 QING TAO DO Ot 305. 1 TOBACCO USE DISORDER 02/15/2020 QING TAO DO Ot 496 CHR AIRWAY OBSTRUCT NEC 02/15/2020 QING TAO DO Ot 786. 09 RESPIRATORY ABNORM NEC 02/15/2020 KASIE DPM, ANDREA Q Ot 355. 5 TARSAL TUNNEL SYNDROME 02/15/2020 CHA VERDUGO DO Ot V72.84 EXAM PRE-OPERATIVE NOS 02/15/2020 CHA VERDUGO DO Ot 530.10 ESOPHAGITIS NOS 02/15/2020 CHA VERDUGO DO Ot 553.3 DIAPHRAGMATIC HERNIA 02/15/2020 CHA VERDUGO DO Ot 787.20 DYSPHAGIA, UNSPECIFIED 02/15/2020 JIMMY KENT DRAFTING LAYOUT WORKER Ot 486 PNEUMONIA, ORGANISM NOS 02/15/2020 JIMMY KENT DRAFTING LAYOUT WORKER Ot 789.00 ABDOMINAL PAIN, UNSPECIFIED SITE 02/15/2020 JIMMY KENT DRAFTING LAYOUT WORKER Ot 959.6 HIP THIGH INJURY NOS 02/15/2020 JIMMY KENT DRAFTING LAYOUT WORKER Ot E000.8 OTHER EXTERNAL CAUSE STATUS 02/15/2020 JIMMY KENT DRAFTING LAYOUT WORKER Ot E849.4 ACCID IN RECREATION AREA 02/15/2020 JIMMY KENT DRAFTING LAYOUT WORKER Ot E888.9 FALL NOS 02/15/2020 PETRA KEARNEY DC Ot 724. 5 BACKACHE NOS 02/15/2020 [place] DC, PETRA Raymond Ot 786. 50 CHEST PAIN NOS 02/15/2020 [place] DC, PETRA Raymond Ot 724. 1 PAIN IN THORACIC SPINE 02/15/2020 [place] DC, PETRA Raymond Ot 786. 50 CHEST PAIN NOS 02/15/2020 KENT DO, RUDOLPH Raymond Ot 414.00 CORON ATHEROSCLER NOS TYPE VESSEL, NATIV 02/15/2020 KENT DO, URDOLPH Raymond Ot 786.50 CHEST PAIN NOS 02/15/2020 KENT DO, RUDOLPH Raymond Ot I25.10 ATHSCL HEART DISEASE OF [place] CORONARY 02/15/2020 KENT DO, RUDOLPH Raymond Ot R07.9 CHEST PAIN, UNSPECIFIED 02/15/2020 [facility] DO, CHA Ot R10.9 UNSPECIFIED ABDOMINAL PAIN 02/15/2020 [facility] DO, CHA Ot Z01.818 ENCOUNTER FOR OTHER PREPROCEDURAL EXAMIN 02/15/2020 LUCINA DO, CHA Ot 553.20 VENTRAL HERNIA NOS 02/15/2020 [facility], CHA Ot V81.5 SCREEN FOR NEPHROPATHY 02/15/2020 LUKASZ CROWLEY APRN Ot F17.210 NICOTINE DEPENDENCE, CIGARETTES, UNCOMPL 02/15/2020 LUKASZ CROWLEY APRN Ot J44.9 CHRONIC OBSTRUCTIVE PULMONARY DISEASE, U 02/15/2020 LUKASZ CROWLEY APRN Ot R06.00 DYSPNEA, UNSPECIFIED 02/15/2020 FRANDY DE LA ROSA Ot E11.9 TYPE 2 DIABETES MELLITUS WITHOUT COMPLIC 02/15/2020 FRANDY DE LA ROSA Ot E78.2 MIXED HYPERLIPIDEMIA 02/15/2020 FRANDY DE LA ROSA Ot I10 ESSENTIAL (PRIMARY) HYPERTENSION 02/15/2020 FRANDY DE LA ROSA Ot I25.10 ATHSCL HEART DISEASE OF [place] CORONARY 02/15/2020 FRANDY DE LA ROSA Ot E11.9 TYPE 2 DIABETES MELLITUS WITHOUT COMPLIC 02/15/2020 FRANDY DE LA ROSA Ot E78.2 MIXED HYPERLIPIDEMIA 02/15/2020 FRANDY DE LA ROSA Ot I10 ESSENTIAL (PRIMARY) HYPERTENSION 02/15/2020 FRANDY DE LA ROSA Ot I25.10 ATHSCL HEART DISEASE OF [place] CORONARY 02/15/2020 LUKASZ CROWLEY APRN Ot F17.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, UNSPECIFIED, UNCOMP 02/15/2020 LUKASZ CROWLEY APRN Ot J44.9 CHRONIC OBSTRUCTIVE PULMONARY DISEASE, U 02/15/2020 YOLI VILLALPANDO, RUDOLPH Raymond Ot M94.8X6 OTHER SPECIFIED DISORDERS OF [place], 02/15/2020 YOLI VILLALPANDO, RUDOLPH aRymond Ot S83.242A OTH TEAR OF MEDIAL MENISCUS, CURRENT INJ 02/15/2020 KENT , RUDOLPH Raymond Ot S83.282A OTH TEAR OF LAT MENSC, CURRENT INJURY, L 02/15/2020 RUDOLPH KENT DO, Ot X58.XXXA EXPOSURE TO OTHER SPECIFIED FACTORS, INI 02/15/2020 RUDOLPH KENT DO, Ot Y99.8 OTHER EXTERNAL CAUSE STATUS 02/15/2020 RUDOLPH KENT DO, Ot Z12.31 ENCNTR SCREEN MAMMOGRAM FOR MALIGNANT NE 02/15/2020 RUDOLPH KENT DO, Ot M40.209 UNSPECIFIED KYPHOSIS, SITE UNSPECIFIED 02/15/2020 RUDOLPH KENT DO, Ot M85.852 OTH DISRD OF BONE DENSITY AND STRUCTURE, 02/15/2020 RUDOLPH KENT DO, Ot Z78.0 ASYMPTOMATIC MENOPAUSAL STATE 02/15/2020 EARNESTINE ALEXANDRE, RAY Davis Ot L98 .9 DISORDER OF THE SKIN AND SUBCUTANEOUS TI 02/15/2020 RUDOLPH KENT DO, Ot M77.32 CALCANEAL SPUR, LEFT FOOT 02/15/2020 RUDOLPH KENT DO, Ot S79.912A UNSPECIFIED INJURY OF LEFT HIP, INITIAL 02/15/2020 RUDOLPH KENT DO, Ot W19.XXXA UNSPECIFIED FALL, INITIAL ENCOUNTER 02/15/2020 RUDOLPH KENT DO Ot F09 UNSP MENTAL DISORDER DUE TO KNOWN PHYSIO 02/15/2020 YOLI VILLALPANDO, RUDOLPH Raymond Ot G43.909 MIGRAINE, UNSP, NOT INTRACTABLE, WITHOUT 02/15/2020 RUDOLPH KENT DO, Ot W19.XXXA UNSPECIFIED FALL, INITIAL ENCOUNTER 02/15/2020 RUDOLPH KENT DO, Ot M25.78 OSTEOPHYTE, VERTEBRAE 02/15/2020 KENT DO, RUDOLPH J Ot M43.16 SPONDYLOLISTHESIS, LUMBAR REGION 02/15/2020 KENT DO, RUDOLPH Raymond Ot M46.86 OTHER SPECIFIED INFLAMMATORY SPONDYLOPAT 02/15/2020 KENT DO, RUDOLPH Raymond Ot M47.27 OTHER SPONDYLOSIS WITH RADICULOPATHY, CATHLEEN 02/15/2020 KENT DO, RUDOLPH Raymond Ot M48.061 SPINAL STENOSIS, LUMBAR REGION WITHOUT N 02/15/2020 KENT DO, RUDOLPH Raymond Ot M51.16 INTERVERTEBRAL DISC DISORDERS W RADICULO 02/15/2020 KENT DO, RUDOLPH Raymond Ot M99.73 CONN TISS AND DISC STENOS OF INTVRT FORA 02/15/2020 KENT DO, RUDOLPH Raymond Ot S99.912A UNSPECIFIED INJURY OF LEFT ANKLE, INITIA 02/15/2020 JUAN LICONA MD Ot E11. 51 TYPE 2 DIABETES W DIABETIC PERIPHERAL AN 02/15/2020 JUAN LICONA MD Ot E78. 2 MIXED HYPERLIPIDEMIA 02/15/2020 JUAN LICONA MD Ot R06. 09 OTHER FORMS OF DYSPNEA 02/15/2020 JUAN LICONA MD Ot R07. 89 OTHER CHEST PAIN 02/15/2020 JUAN LICONA MD Ot E11. 51 TYPE 2 DIABETES W DIABETIC PERIPHERAL AN 02/15/2020 JUAN LICONA MD Ot E78. 2 MIXED HYPERLIPIDEMIA 02/15/2020 JUAN LICONA MD Ot R06. 09 OTHER FORMS OF DYSPNEA 02/15/2020 JUAN LICONA MD Ot R07. 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, UNSPECIFIED, UNCOMP 02/15/2020 LUKASZ CROWLEY APRN Ot G47.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 02/15/2020 LUKASZ CROWLEY APRN Ot J30.9 ALLERGIC RHINITIS, UNSPECIFIED 02/15/2020 LUKASZ CROWLEY APRN Ot J42 UNSPECIFIED CHRONIC BRONCHITIS 02/15/2020 LUKASZ CROWLEY APRN Ot J44.9 CHRONIC OBSTRUCTIVE PULMONARY DISEASE, U 02/15/2020 LUKASZ CROWLEY APRN Ot Z99.81 DEPENDENCE ON SUPPLEMENTAL OXYGEN 02/15/2020 LUKASZ CROWLEY PRINTMAKER Ot F12.10 CANNABIS ABUSE, UNCOMPLICATED 02/15/2020 LUKASZ CROWLEY PRINTMAKER Ot F17.210 NICOTINE DEPENDENCE, CIGARETTES, UNCOMPL 02/15/2020 LUKASZ CROWLEY PRINTMAKER Ot G47.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 02/15/2020 LUKASZ CROWLEY PRINTMAKER Ot J18.1 LOBAR PNEUMONIA, UNSPECIFIED ORGANISM 02/15/2020 LUKASZ CROWLEY PRINTMAKER Ot J30.9 ALLERGIC RHINITIS, UNSPECIFIED 02/15/2020 LUKASZ CROWLEY PRINTMAKER Ot J44.9 CHRONIC OBSTRUCTIVE PULMONARY DISEASE, U 02/15/2020 LUKASZ CROWLEY APRN Ot Z12.2 ENCNTR SCREEN FOR MALIGNANT NEOPLASM OF 02/15/2020 LUKASZ CROWLEY APRN Ot Z99.81 DEPENDENCE ON SUPPLEMENTAL OXYGEN 02/15/2020 RUDOLPH KENT DO Ot Z45.2 ENCOUNTER FOR ADJUSTMENT AND MANAGEMENT 02/15/2020 SARAH ROBERTSON Ot 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, CERVICOTHORACIC REGIO 02/15/2020 SARAH ROBERTSON Ot M48.02 SPINAL STENOSIS, CERVICAL REGION 02/15/2020 SARAH ROBERTSON Ot M50.11 CERV DISC DISORDER WITH RADICULOPATHY, H 02/15/2020 SARAH ROBERTSON Ot M50.121 CERVICAL DISC DISORDER AT C4-C5 LEVEL [place] 02/15/2020 JUAN LICONA MD Ot 272. 4 HYPERLIPIDEMIA NEC/NOS 02/15/2020 JUAN LICONA MD Ot 397. 0 TRICUSPID VALVE DISEASE 02/15/2020 JUAN LICONA MD Ot 424. 0 MITRAL VALVE DISORDER 02/15/2020 JUAN LICONA MD Ot 786. 09 RESPIRATORY ABNORM NEC 02/15/2020 JUAN LICONA MD Ot 786. 50 CHEST PAIN NOS 02/15/2020 JUAN LICONA MD Ot V46. 2 SUPPLEMENTAL OXYGEN 02/15/2020 JUAN LICONA MD Ot 272. 4 HYPERLIPIDEMIA NEC/NOS 02/15/2020 JUAN LICONA MD Ot 786. 09 RESPIRATORY ABNORM NEC 02/15/2020 JUAN LICONA MD Ot 786. 50 CHEST PAIN NOS 02/15/2020 JUAN LICONA MD Ot V46. 2 SUPPLEMENTAL OXYGEN 02/15/2020 RUDOLPH KENT DO Ot V76.12 OTH SCREEN MAMMO-MALIGN NEOPLASM OF [place] 02/15/2020 QING TAO DO Ot 305. 1 TOBACCO USE DISORDER 02/15/2020 QING TAO DO Ot 496 CHR AIRWAY OBSTRUCT NEC 02/15/2020 QING TAO DO Ot 786. 09 RESPIRATORY ABNORM NEC 02/15/2020 KASIE DPM, ANDREA Q Ot 355. 5 TARSAL TUNNEL SYNDROME 02/15/2020 LUCINA VILLALPANDO, CHA Ot V72.84 EXAM PRE-OPERATIVE NOS 02/15/2020 LUCINA DIANN VILLALPANDOTIE Ot 530.10 ESOPHAGITIS NOS 02/15/2020 LUCINA DIANN VILLALPANDOTIE Ot 553.3 DIAPHRAGMATIC HERNIA 02/15/2020 MEDARDO VERDUGO DOROUTIE Ot 787.20 DYSPHAGIA, UNSPECIFIED 02/15/2020 JIMMY KENT DRAFTING LAYOUT WORKER Ot 486 PNEUMONIA, ORGANISM NOS 02/15/2020 JIMMY KENT DRAFTING LAYOUT WORKER Ot 789.00 ABDOMINAL PAIN, UNSPECIFIED SITE 02/15/2020 JIMMY KENT DRAFTING LAYOUT WORKER Ot 959.6 HIP THIGH INJURY NOS 02/15/2020 JIMMY KENT DRAFTING LAYOUT WORKER Ot E000.8 OTHER EXTERNAL CAUSE STATUS 02/15/2020 JIMMY KENT DRAFTING LAYOUT WORKER Ot E849.4 ACCID IN RECREATION AREA 02/15/2020 JIMMY KENT DRAFTING LAYOUT WORKER Ot E888.9 FALL NOS 02/15/2020 PETRA KEARNEY DC Ot 724. 5 BACKACHE NOS 02/15/2020 PETRA KEARNEY DC Ot 786. 50 CHEST PAIN NOS 02/15/2020 PETRA KEARNEY DC Ot 724. 1 PAIN IN THORACIC SPINE 02/15/2020 PETRA KEARNEY DC Ot 786. 50 CHEST PAIN NOS 02/15/2020 RUDOLPH KENT DO Ot 414.00 CORON ATHEROSCLER NOS TYPE VESSEL, NATIV 02/15/2020 RUDOLPH KENT DO Ot 786.50 CHEST PAIN NOS 02/15/2020 RUDOLPH KENT DO Ot I25.10 ATHSCL HEART DISEASE OF [place] CORONARY 02/15/2020 RUDOLPH KENT DO Ot R07.9 CHEST PAIN, UNSPECIFIED 02/15/2020 [facility], CHA Ot R10.9 UNSPECIFIED ABDOMINAL PAIN 02/15/2020 [facility], CHA Ot Z01.818 ENCOUNTER FOR OTHER PREPROCEDURAL EXAMIN 02/15/2020 [facility], CHA Ot 553.20 VENTRAL HERNIA NOS 02/15/2020 [facility], CHA Ot V81.5 SCREEN FOR NEPHROPATHY 02/15/2020 LUKASZ CROWLEY APRN Ot F17.210 NICOTINE DEPENDENCE, CIGARETTES, UNCOMPL 02/15/2020 LUKASZ CROWLEY APRN Ot J44.9 CHRONIC OBSTRUCTIVE PULMONARY DISEASE, U 02/15/2020 LUKASZ CROWLEY APRN Ot R06.00 DYSPNEA, UNSPECIFIED 02/15/2020 FRANDY DE LA ROSA Ot E11.9 TYPE 2 DIABETES MELLITUS WITHOUT COMPLIC 02/15/2020 FRANDY DE LA ROSA Ot E78.2 MIXED HYPERLIPIDEMIA 02/15/2020 FRANDY DE LA ROSA Ot I10 ESSENTIAL (PRIMARY) HYPERTENSION 02/15/2020 FRANDY DE LA ROSA Ot I25.10 ATHSCL HEART DISEASE OF [place] CORONARY 02/15/2020 FRANDY DE LA ROSA Ot E11.9 TYPE 2 DIABETES MELLITUS WITHOUT COMPLIC 02/15/2020 FRANDY DE LA ROSA Ot E78.2 MIXED HYPERLIPIDEMIA 02/15/2020 FRANDY DE LA ROSA Ot I10 ESSENTIAL (PRIMARY) HYPERTENSION 02/15/2020 FRANDY DE LA ROSA Ot I25.10 ATHSCL HEART DISEASE OF [place] CORONARY 02/15/2020 LUKASZ CROWLEY APRN Ot F17.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, UNSPECIFIED, UNCOMP 02/15/2020 LUKASZ CROWLEY APRN Ot J44.9 CHRONIC OBSTRUCTIVE PULMONARY DISEASE, U 02/15/2020 RUDOLPH KENT DO Ot M94.8X6 OTHER SPECIFIED DISORDERS OF [place], 02/15/2020 RUDOLPH KENT DO Ot S83.242A OTH TEAR OF MEDIAL MENISCUS, CURRENT INJ 02/15/2020 RUDOLPH KENT DO Ot S83.282A OTH TEAR OF LAT MENSC, CURRENT INJURY, L 02/15/2020 YOLI VILLALPANDO, RUDOLPH Raymond Ot X58.XXXA EXPOSURE TO OTHER SPECIFIED FACTORS, INI 02/15/2020 YOLI VILLALPANDO, RUDOLPH Raymond Ot Y99.8 OTHER EXTERNAL CAUSE STATUS 02/15/2020 YOLI VILLALPANDO, RUDOLPH Raymond Ot Z12.31 ENCNTR SCREEN MAMMOGRAM FOR MALIGNANT NE 02/15/2020 YOLI VILLALPANDO, RUDOLPH Raymond Ot M40.209 UNSPECIFIED KYPHOSIS, SITE UNSPECIFIED 02/15/2020 YOLI VILLALPANDO, RUDOLPH Raymond Ot M85.852 [facility] DISRD OF BONE DENSITY AND STRUCTURE, 02/15/2020 YOLI VILLALPANDO, RUDOLPH Raymond Ot Z78.0 ASYMPTOMATIC MENOPAUSAL STATE 02/15/2020 EARNESTINE ALEXANDRE, RAY Davis Ot L98 .9 DISORDER OF THE SKIN AND SUBCUTANEOUS TI 02/15/2020 KENT DO, RUDOLPH Raymond Ot M77.32 CALCANEAL SPUR, LEFT FOOT 02/15/2020 YOLI VILLALPANDO, RUDOLPH Raymond Ot S79.912A UNSPECIFIED INJURY OF LEFT HIP, INITIAL 02/15/2020 YOLI VILLALPANDO, RUDOLPH Raymond Ot W19.XXXA UNSPECIFIED FALL, INITIAL ENCOUNTER 02/15/2020 YOLI VILLALPANDO, RUDOLPH Raymond Ot F09 UNSP MENTAL DISORDER DUE TO KNOWN PHYSIO 02/15/2020 YOLI VILLALPANDO, RUDOLPH Raymond Ot G43.909 MIGRAINE, UNSP, NOT INTRACTABLE, WITHOUT 02/15/2020 KENT DO, RUDOLPH Raymond Ot W19.XXXA UNSPECIFIED FALL, INITIAL ENCOUNTER 02/15/2020 YOLI VILLALPANDO, RUDOLPH Raymond Ot M25.78 OSTEOPHYTE, VERTEBRAE 02/15/2020 YOLI VILLALPANDO, RUDOLPH Raymond Ot M43.16 SPONDYLOLISTHESIS, LUMBAR REGION 02/15/2020 KENT DO, RUDOLPH Raymond Ot M46.86 OTHER SPECIFIED INFLAMMATORY SPONDYLOPAT 02/15/2020 KENT DO, RUDOLPH Raymond Ot M47.27 OTHER SPONDYLOSIS WITH RADICULOPATHY, CATHLEEN 02/15/2020 YOLI VILLALPANDO, RUDOLPH Raymond Ot M48.061 SPINAL STENOSIS, LUMBAR REGION WITHOUT N 02/15/2020 KENT DO, RUDOLPH Raymond Ot M51.16 INTERVERTEBRAL DISC DISORDERS W RADICULO 02/15/2020 KENT DO, RUDOLPH Raymond Ot M99.73 CONN TISS AND DISC STENOS OF INTVRT FORA 02/15/2020 RUDOLPH KENT DO Ot S99.912A UNSPECIFIED INJURY OF LEFT ANKLE, INITIA 02/15/2020 JUAN LICONA MD Ot E11. 51 TYPE 2 DIABETES W DIABETIC PERIPHERAL AN 02/15/2020 JUAN LICONA MD Ot E78. 2 MIXED HYPERLIPIDEMIA 02/15/2020 JUAN LICONA MD Ot R06. 09 OTHER FORMS OF DYSPNEA 02/15/2020 JUAN LICONA MD Ot R07. 89 OTHER CHEST PAIN 02/15/2020 JUAN LICONA MD Ot E11. 51 TYPE 2 DIABETES W DIABETIC PERIPHERAL AN 02/15/2020 JUAN LICONA MD Ot E78. 2 MIXED HYPERLIPIDEMIA 02/15/2020 JUAN LICONA MD Ot R06. 09 OTHER FORMS OF DYSPNEA 02/15/2020 JUAN LICONA MD Ot R07. 89 OTHER CHEST PAIN 02/15/2020 LUKASZ CROWLEY PRINTMAKER Ot F12.10 CANNABIS ABUSE, UNCOMPLICATED 02/15/2020 LUKASZ CROWLEY E PRINTMAKER Ot F17.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, UNSPECIFIED, UNCOMP 02/15/2020 LUKASZ CROWLEY E PRINTMAKER Ot G47.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 02/15/2020 LUKASZ CROWLEY PRINTMAKER Ot J30.9 ALLERGIC RHINITIS, UNSPECIFIED 02/15/2020 LUKASZ CROWLEY PRINTMAKER Ot J42 UNSPECIFIED CHRONIC BRONCHITIS 02/15/2020 LUKASZ CROWLEY PRINTMAKER Ot J44.9 CHRONIC OBSTRUCTIVE PULMONARY DISEASE, U 02/15/2020 LUKASZ CROWLEY PRINTMAKER Ot Z99.81 DEPENDENCE ON SUPPLEMENTAL OXYGEN 02/15/2020 LUKASZ CROWLEY PRINTMAKER Ot F12.10 CANNABIS ABUSE, UNCOMPLICATED 02/15/2020 LUKASZ CROWLEY PRINTMAKER Ot F17.210 NICOTINE DEPENDENCE, CIGARETTES, UNCOMPL 02/15/2020 CARMELINA CROWLEYINE E PRINTMAKER Ot G47.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 02/15/2020 LUKASZ CROWLEY E PRINTMAKER Ot J18.1 LOBAR PNEUMONIA, UNSPECIFIED ORGANISM 02/15/2020 LUKASZ CROWLEY E PRINTMAKER Ot J30.9 ALLERGIC RHINITIS, UNSPECIFIED 02/15/2020 CARMELINA CROWLEYINE E PRINTMAKER Ot J44.9 CHRONIC OBSTRUCTIVE PULMONARY DISEASE, U 02/15/2020 LUKASZ CROWLEY APRN Ot Z12.2 ENCNTR SCREEN FOR MALIGNANT NEOPLASM OF 02/15/2020 LUKASZ CROWLEY APRN Ot Z99.81 DEPENDENCE ON SUPPLEMENTAL OXYGEN 02/15/2020 RUDOLPH KENT DO Ot Z45.2 ENCOUNTER FOR ADJUSTMENT AND MANAGEMENT 02/15/2020 SARAH ROBERTSON Ot 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, CERVICOTHORACIC REGIO 02/15/2020 SARAH ROBERTSON Ot M48.02 SPINAL STENOSIS, CERVICAL REGION 02/15/2020 SARAH ROBERTSON Ot M50.11 CERV DISC DISORDER WITH RADICULOPATHY, H 02/15/2020 SARAH ROBERTSON Ot M50.121 CERVICAL DISC DISORDER AT C4-C5 LEVEL [place] 02/15/2020 JUAN LICONA MD Ot 272. 4 HYPERLIPIDEMIA NEC/NOS 02/15/2020 JUAN LICONA MD Ot 397. 0 TRICUSPID VALVE DISEASE 02/15/2020 JUAN LICONA MD Ot 424. 0 MITRAL VALVE DISORDER 02/15/2020 JUAN LICONA MD Ot 786. 09 RESPIRATORY ABNORM NEC 02/15/2020 JUAN LICONA MD Ot 786. 50 CHEST PAIN NOS 02/15/2020 JUAN LICONA MD Ot V46. 2 SUPPLEMENTAL OXYGEN 02/15/2020 JUAN LICONA MD Ot 272. 4 HYPERLIPIDEMIA NEC/NOS 02/15/2020 JUAN LICONA MD Ot 786. 09 RESPIRATORY ABNORM NEC 02/15/2020 JUAN LICONA MD Ot 786. 50 CHEST PAIN NOS 02/15/2020 JUAN LICONA MD Ot V46. 2 SUPPLEMENTAL OXYGEN 02/15/2020 RUDOLPH KENT DO Ot V76.12 OT SCREEN MAMMO-MALIGN NEOPLASM OF [place] 02/15/2020 QING TAO DO Ot 305. 1 TOBACCO USE DISORDER 02/15/2020 QING TAO DO Ot 496 CHR AIRWAY OBSTRUCT NEC 02/15/2020 QING TAO DO Ot 786. 09 RESPIRATORY ABNORM NEC 02/15/2020 KASIE DPM, ANDREA Q Ot 355. 5 TARSAL TUNNEL SYNDROME 02/15/2020 CHA VERDUGO DO Ot V72.84 EXAM PRE-OPERATIVE NOS 02/15/2020 MEDARDO VERDUGO DOROUTIE Ot 530.10 ESOPHAGITIS NOS 02/15/2020 [facility] 553.3 DIAPHRAGMATIC HERNIA 02/15/2020 [facility] Ot 787.20 DYSPHAGIA, UNSPECIFIED 02/15/2020 JIMMY KENT DRAFTING LAYOUT WORKER Ot 486 PNEUMONIA, ORGANISM NOS 02/15/2020 ADAMA KENTIA Jr DRAFTING LAYOUT WORKER Ot 789.00 ABDOMINAL PAIN, UNSPECIFIED SITE 02/15/2020 JIMMY KENT DRAFTING LAYOUT WORKER Ot 959.6 HIP THIGH INJURY NOS 02/15/2020 JIMMY KENT DRAFTING LAYOUT WORKER Ot E000.8 OTHER EXTERNAL CAUSE STATUS 02/15/2020 JIMMY KENT DRAFTING LAYOUT WORKER Ot E849.4 ACCID IN RECREATION AREA 02/15/2020 JIMMY KENT DRAFTING LAYOUT WORKER Ot E888.9 FALL NOS 02/15/2020 [facility]. 5 BACKACHE NOS 02/15/2020 [facility] 786. 50 CHEST PAIN NOS 02/15/2020 [place] [facility] NICKERSON Ot 724. 1 PAIN IN THORACIC SPINE 02/15/2020 [place] PETRA NICKERSON Ot 786. 50 CHEST PAIN NOS 02/15/2020 KENTRUDOLPH BURNHAM DO Ot 414.00 CORON ATHEROSCLER NOS TYPE VESSEL, NATIV 02/15/2020 KENTRUDOLPH BURNHAM DO Ot 786.50 CHEST PAIN NOS 02/15/2020 KENT RUDOLPH VILLALPANDO Ot I25.10 ATHSCL HEART DISEASE OF [place] CORONARY 02/15/2020 RUDOLPH KENT DO Ot R07.9 CHEST PAIN, UNSPECIFIED 02/15/2020 [facility] Ot R10.9 UNSPECIFIED ABDOMINAL PAIN 02/15/2020 [facility] Ot Z01.818 ENCOUNTER FOR OTHER PREPROCEDURAL EXAMIN 02/15/2020 [facility] Ot 553.20 VENTRAL HERNIA NOS 02/15/2020 [facility] Ot V81.5 SCREEN FOR NEPHROPATHY 02/15/2020 LUKASZ CROWLEY APRN Ot F17.210 NICOTINE DEPENDENCE, CIGARETTES, UNCOMPL 02/15/2020 LUKASZ CROWLEY APRN Ot J44.9 CHRONIC OBSTRUCTIVE PULMONARY DISEASE, U 02/15/2020 LUKASZ CROWLEY APRN Ot R06.00 DYSPNEA, UNSPECIFIED 02/15/2020 [facility] CRISTINA, FRANDY Aviles Ot E11.9 TYPE 2 DIABETES MELLITUS WITHOUT COMPLIC 02/15/2020 [facility] FRANDY Aviles Ot E78.2 MIXED HYPERLIPIDEMIA 02/15/2020 [facility] FRANDY Aviles Ot I10 ESSENTIAL (PRIMARY) HYPERTENSION 02/15/2020 [facility] CRISTINA, FRANDY Aviles Ot I25.10 ATHSCL HEART DISEASE OF [place] CORONARY 02/15/2020 [facility] CRISTINA, FRANDY Aviles Ot E11.9 TYPE 2 DIABETES MELLITUS WITHOUT COMPLIC 02/15/2020 [facility] CRISTINA, FRANDY Aviles Ot E78.2 MIXED HYPERLIPIDEMIA 02/15/2020 [facility] CRISTINA, FRANDY Aviles Ot I10 ESSENTIAL (PRIMARY) HYPERTENSION 02/15/2020 [facility] FRANDY Aviles Ot I25.10 ATHSCL HEART DISEASE OF [place] CORONARY 02/15/2020 LUKASZ CROWLEY APRN Ot F17.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, UNSPECIFIED, UNCOMP 02/15/2020 LUKASZ CROWLEY APRN Ot J44.9 CHRONIC OBSTRUCTIVE PULMONARY DISEASE, U 02/15/2020 RUDOLPH KENT DO Ot M94.8X6 OTHER SPECIFIED DISORDERS OF [place], 02/15/2020 RUDOLPH KENT DO, Ot S83.242A OTH TEAR OF MEDIAL MENISCUS, CURRENT INJ 02/15/2020 RUDOLPH KENT DO, Ot S83.282A OTH TEAR OF LAT MENSC, CURRENT INJURY, L 02/15/2020 RUDOLPH KENT DO, Ot X58.XXXA EXPOSURE TO OTHER SPECIFIED FACTORS, INI 02/15/2020 RUDOLPH KENT DO, Ot Y99.8 OTHER EXTERNAL CAUSE STATUS 02/15/2020 RUDOLPH KENT DO, Ot Z12.31 ENCNTR SCREEN MAMMOGRAM FOR MALIGNANT NE 02/15/2020 RUDOLPH KENT DO, Ot M40.209 UNSPECIFIED KYPHOSIS, SITE UNSPECIFIED 02/15/2020 RUDOLPH KENT DO, Ot M85.852 OTH DISRD OF BONE DENSITY AND STRUCTURE, 02/15/2020 RUDOLPH KENT DO, Ot Z78.0 ASYMPTOMATIC MENOPAUSAL STATE 02/15/2020 EARNESTINE ALEXANDRE, RAY Davis Ot L98 .9 DISORDER OF THE SKIN AND SUBCUTANEOUS TI 02/15/2020 KENT DO, RUDOLPH Raymond Ot M77.32 CALCANEAL SPUR, LEFT FOOT 02/15/2020 KENT DO, RUDOLPH Raymond Ot S79.912A UNSPECIFIED INJURY OF LEFT HIP, INITIAL 02/15/2020 KENT DO, RUDOLPH Raymond Ot W19.XXXA UNSPECIFIED FALL, INITIAL ENCOUNTER 02/15/2020 YOLI VILLALPANDO, RUDOLPH Raymond Ot F09 UNSP MENTAL DISORDER DUE TO KNOWN PHYSIO 02/15/2020 KENT DO, RUDOLPH Raymond Ot G43.909 MIGRAINE, UNSP, NOT INTRACTABLE, WITHOUT 02/15/2020 KENT DO, RUDOLPH Raymond Ot W19.XXXA UNSPECIFIED FALL, INITIAL ENCOUNTER 02/15/2020 KENT DO, RUDOLPH Raymond Ot M25.78 OSTEOPHYTE, VERTEBRAE 02/15/2020 KENT DO, RUDOLPH Raymond Ot M43.16 SPONDYLOLISTHESIS, LUMBAR REGION 02/15/2020 KENT DO, RUDOLPH Raymond Ot M46.86 OTHER SPECIFIED INFLAMMATORY SPONDYLOPAT 02/15/2020 KENT DO, RUDOLPH Raymond Ot M47.27 OTHER SPONDYLOSIS WITH RADICULOPATHY, CATHLEEN 02/15/2020 KENT DO, RUDOLPH Raymond Ot M48.061 SPINAL STENOSIS, LUMBAR REGION WITHOUT N 02/15/2020 KENT DO, RUDOLPH Raymond Ot M51.16 INTERVERTEBRAL DISC DISORDERS W RADICULO 02/15/2020 KENT DO, RUDOLPH Raymond Ot M99.73 CONN TISS AND DISC STENOS OF INTVRT FORA 02/15/2020 KENT DO, RUDOLPH Raymond Ot S99.912A UNSPECIFIED INJURY OF LEFT ANKLE, INITIA 02/15/2020 JUAN LICONA MD Ot E11. 51 TYPE 2 DIABETES W DIABETIC PERIPHERAL AN 02/15/2020 JUAN LICONA MD Ot E78. 2 MIXED HYPERLIPIDEMIA 02/15/2020 JUAN LICONA MD Ot R06. 09 OTHER FORMS OF DYSPNEA 02/15/2020 JUAN LICONA MD Ot R07. 89 OTHER CHEST PAIN 02/15/2020 JUAN LICONA MD Ot E11. 51 TYPE 2 DIABETES W DIABETIC PERIPHERAL AN 02/15/2020 LIVAN MD, BASHAR J Ot E78. 2 MIXED HYPERLIPIDEMIA 02/15/2020 LIVAN ALEXANDRE, JUAN Raymond Ot R06. 09 OTHER FORMS OF DYSPNEA 02/15/2020 LIVAN ALEXANDRE, JUAN Raymond Ot R07. 89 OTHER CHEST PAIN 02/15/2020 CARLINE, LUKASZ E PRINTMAKER Ot F12.10 CANNABIS ABUSE, UNCOMPLICATED 02/15/2020 CARLINE, LUKASZ E PRINTMAKER Ot F17.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, UNSPECIFIED, UNCOMP 02/15/2020 CARLINE, LUKASZ E PRINTMAKER Ot G47.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 02/15/2020 CARLINE, LUKASZ E PRINTMAKER Ot J30.9 ALLERGIC RHINITIS, UNSPECIFIED 02/15/2020 CARLINE, LUKASZ E PRINTMAKER Ot J42 UNSPECIFIED CHRONIC BRONCHITIS 02/15/2020 CARLINE, LUKASZ E PRINTMAKER Ot J44.9 CHRONIC OBSTRUCTIVE PULMONARY DISEASE, U 02/15/2020 CARLINE, LUKASZ E PRINTMAKER Ot Z99.81 DEPENDENCE ON SUPPLEMENTAL OXYGEN 02/15/2020 CARLINE, LUKASZ E PRINTMAKER Ot F12.10 CANNABIS ABUSE, UNCOMPLICATED 02/15/2020 CARLINE, LUKASZ E PRINTMAKER Ot F17.210 NICOTINE DEPENDENCE, CIGARETTES, UNCOMPL 02/15/2020 CARLINE, LUKASZ E PRINTMAKER Ot G47.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 02/15/2020 CARLINE, LUKASZ E PRINTMAKER Ot J18.1 LOBAR PNEUMONIA, UNSPECIFIED ORGANISM 02/15/2020 CARLINE, LUKASZ E PRINTMAKER Ot J30.9 ALLERGIC RHINITIS, UNSPECIFIED 02/15/2020 CARLINE, LUKASZ E PRINTMAKER Ot J44.9 CHRONIC OBSTRUCTIVE PULMONARY DISEASE, U 02/15/2020 CARLINE, LUKASZ E PRINTMAKER Ot Z12.2 ENCNTR SCREEN FOR MALIGNANT NEOPLASM OF 02/15/2020 CARLINE, LUKASZ E PRINTMAKER Ot Z99.81 DEPENDENCE ON SUPPLEMENTAL OXYGEN 02/15/2020 RUDOLPH KENT DO Ot Z45.2 ENCOUNTER FOR ADJUSTMENT AND MANAGEMENT 02/15/2020 SARAH ROBERTSON Ot 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, CERVICOTHORACIC REGIO 02/15/2020 SARAH ROBERTSON Ot M48.02 SPINAL STENOSIS, CERVICAL REGION 02/15/2020 SARAH ROBERTSON Ot M50.11 CERV DISC DISORDER WITH RADICULOPATHY, H 02/15/2020 SARAH ROBERTSON DRAFTING LAYOUT WORKER Ot M50.121 CERVICAL DISC DISORDER AT C4-C5 LEVEL [place] 02/15/2020 JUAN LICONA MD Ot 272. 4 HYPERLIPIDEMIA NEC/NOS 02/15/2020 JUAN LICONA MD Ot 397. 0 TRICUSPID VALVE DISEASE 02/15/2020 JUAN LICONA MD Ot 424. 0 MITRAL VALVE DISORDER 02/15/2020 JUAN LICONA MD Ot 786. 09 RESPIRATORY ABNORM NEC 02/15/2020 JUNA LICONA MD Ot 786. 50 CHEST PAIN NOS 02/15/2020 JUAN LICONA MD Ot V46. 2 SUPPLEMENTAL OXYGEN 02/15/2020 JUAN LICONA MD Ot 272. 4 HYPERLIPIDEMIA NEC/NOS 02/15/2020 JUAN LICONA MD Ot 786. 09 RESPIRATORY ABNORM NEC 02/15/2020 JUAN LICONA MD Ot 786. 50 CHEST PAIN NOS 02/15/2020 JUAN LICONA MD Ot V46. 2 SUPPLEMENTAL OXYGEN 02/15/2020 RUDOLPH KENT DO Ot V76.12 OTH SCREEN MAMMO-MALIGN NEOPLASM OF [place] 02/15/2020 QING TAO DO Ot 305. 1 TOBACCO USE DISORDER 02/15/2020 QING TAO DO Ot 496 CHR AIRWAY OBSTRUCT NEC 02/15/2020 QING TAO DO Ot 786. 09 RESPIRATORY ABNORM NEC 02/15/2020 KASIE DPM, ANDREA Q Ot 355. 5 TARSAL TUNNEL SYNDROME 02/15/2020 CHA VERDUGO DO Ot V72.84 EXAM PRE-OPERATIVE NOS 02/15/2020 CAH VERDUGO DO Ot 530.10 ESOPHAGITIS NOS 02/15/2020 CHA VERDUGO DO Ot 553.3 DIAPHRAGMATIC HERNIA 02/15/2020 CHA VERDUGO DO Ot 787.20 DYSPHAGIA, UNSPECIFIED 02/15/2020 JIMMY KENT DRAFTING LAYOUT WORKER Ot 486 PNEUMONIA, ORGANISM NOS 02/15/2020 JIMMY KENT DRAFTING LAYOUT WORKER Ot 789.00 ABDOMINAL PAIN, UNSPECIFIED SITE 02/15/2020 JIMMY KENT DRAFTING LAYOUT WORKER Ot 959.6 HIP THIGH INJURY NOS 02/15/2020 JIMMY KENT DRAFTING LAYOUT WORKER Ot E000.8 OTHER EXTERNAL CAUSE STATUS 02/15/2020 JIMMY KENT DRAFTING LAYOUT WORKER Ot E849.4 ACCID IN RECREATION AREA 02/15/2020 JIMMY KENT DRAFTING LAYOUT WORKER Ot E888.9 FALL NOS 02/15/2020 [place] DC, PETRA Raymond Ot 724. 5 BACKACHE NOS 02/15/2020 [place] DC, PETRA J Ot 786. 50 CHEST PAIN NOS 02/15/2020 [place] DC, PETRA Raymond Ot 724. 1 PAIN IN THORACIC SPINE 02/15/2020 [place] DC, PETRA Raymond Ot 786. 50 CHEST PAIN NOS 02/15/2020 [place] DO, RUDOLPH Raymond Ot 414.00 CORON ATHEROSCLER NOS TYPE VESSEL, NATIV 02/15/2020 KENT DO, RUDOLPH Raymond Ot 786.50 CHEST PAIN NOS 02/15/2020 [place] DO, RUDOLPH Raymond Ot I25.10 ATHSCL HEART DISEASE OF [place] CORONARY 02/15/2020 KENT DO, RUDOLPH Raymond Ot R07.9 CHEST PAIN, UNSPECIFIED 02/15/2020 [facility] DO, MEDARDOROUTIE Ot R10.9 UNSPECIFIED ABDOMINAL PAIN 02/15/2020 [facility] DO, CHA Ot Z01.818 ENCOUNTER FOR OTHER PREPROCEDURAL EXAMIN 02/15/2020 LUCINA , CHA Ot 553.20 VENTRAL HERNIA NOS 02/15/2020 [facility], CHA Ot V81.5 SCREEN FOR NEPHROPATHY 02/15/2020 LUKASZ CROWLEY APRN Ot F17.210 NICOTINE DEPENDENCE, CIGARETTES, UNCOMPL 02/15/2020 LUKASZ CROWLEY APRN Ot J44.9 CHRONIC OBSTRUCTIVE PULMONARY DISEASE, U 02/15/2020 LUKASZ CROWLEY APRN Ot R06.00 DYSPNEA, UNSPECIFIED 02/15/2020 FRANDY DE LA ROSA Ot E11.9 TYPE 2 DIABETES MELLITUS WITHOUT COMPLIC 02/15/2020 FRANDY DE LA ROSA Ot E78.2 MIXED HYPERLIPIDEMIA 02/15/2020 FRANDY DE LA ROSA Ot I10 ESSENTIAL (PRIMARY) HYPERTENSION 02/15/2020 FRANDY DE LA ROSA Ot I25.10 ATHSCL HEART DISEASE OF [place] CORONARY 02/15/2020 FRANDY DE LA ROSA Ot E11.9 TYPE 2 DIABETES MELLITUS WITHOUT COMPLIC 02/15/2020 FRANDY DE LA ROSA Ot E78.2 MIXED HYPERLIPIDEMIA 02/15/2020 FRANDY DE LA ROSA Ot I10 ESSENTIAL (PRIMARY) HYPERTENSION 02/15/2020 FRANDY DE LA ROSA Ot I25.10 ATHSCL HEART DISEASE OF [place] CORONARY 02/15/2020 LUKASZ CROWLEY APRN Ot F17.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, UNSPECIFIED, UNCOMP 02/15/2020 LUKASZ CROWLEY APRN Ot J44.9 CHRONIC OBSTRUCTIVE PULMONARY DISEASE, U 02/15/2020 YOLI VILLALPANDO, RUDOLPH Raymond Ot M94.8X6 OTHER SPECIFIED DISORDERS OF [place], 02/15/2020 RUDOLPH KENT DO, Ot S83.242A OTH TEAR OF MEDIAL MENISCUS, CURRENT INJ 02/15/2020 RUDOLPH KENT DO, Ot S83.282A OTH TEAR OF LAT MENSC, CURRENT INJURY, L 02/15/2020 RUDOLPH KENT DO, Ot X58.XXXA EXPOSURE TO OTHER SPECIFIED FACTORS, INI 02/15/2020 RUDOLPH KENT DO, Ot Y99.8 OTHER EXTERNAL CAUSE STATUS 02/15/2020 RUDOLPH KENT DO, Ot Z12.31 ENCNTR SCREEN MAMMOGRAM FOR MALIGNANT NE 02/15/2020 RUDOLPH KENT DO, Ot M40.209 UNSPECIFIED KYPHOSIS, SITE UNSPECIFIED 02/15/2020 RUDOLPH KENT DO, Ot M85.852 OTH DISRD OF BONE DENSITY AND STRUCTURE, 02/15/2020 RUDOLPH KENT DO, Ot Z78.0 ASYMPTOMATIC MENOPAUSAL STATE 02/15/2020 EARNESTINE ALEXANDRE, RAY Davis Ot L98 .9 DISORDER OF THE SKIN AND SUBCUTANEOUS TI 02/15/2020 RUDOPLH KENT DO, Ot M77.32 CALCANEAL SPUR, LEFT FOOT 02/15/2020 RUDOLPH KENT DO, Ot S79.912A UNSPECIFIED INJURY OF LEFT HIP, INITIAL 02/15/2020 RUDOLPH KENT DO, Ot W19.XXXA UNSPECIFIED FALL, INITIAL ENCOUNTER 02/15/2020 RUDOLPH KENT DO Ot F09 UNSP MENTAL DISORDER DUE TO KNOWN PHYSIO 02/15/2020 RUDOLPH KENT DO, Ot G43.909 MIGRAINE, UNSP, NOT INTRACTABLE, WITHOUT 02/15/2020 KENT DO, RUDOLPH Raymond Ot W19.XXXA UNSPECIFIED FALL, INITIAL ENCOUNTER 02/15/2020 KENT DO, RUDOLPH Raymond Ot M25.78 OSTEOPHYTE, VERTEBRAE 02/15/2020 KENT DO, RUDOLPH Raymond Ot M43.16 SPONDYLOLISTHESIS, LUMBAR REGION 02/15/2020 KENT DO, RUDOLPH Raymond Ot M46.86 OTHER SPECIFIED INFLAMMATORY SPONDYLOPAT 02/15/2020 KENT DO, RUDOLPH Raymond Ot M47.27 OTHER SPONDYLOSIS WITH RADICULOPATHY, CATHLEEN 02/15/2020 KENT DO, RUDOLPH Raymond Ot M48.061 SPINAL STENOSIS, LUMBAR REGION WITHOUT N 02/15/2020 KENT DO, RUDOLPH Raymond Ot M51.16 INTERVERTEBRAL DISC DISORDERS W RADICULO 02/15/2020 KENT DO, RUDOLPH Raymond Ot M99.73 CONN TISS AND DISC STENOS OF INTVRT FORA 02/15/2020 KENT DO, RUDOLPH Ramyond Ot S99.912A UNSPECIFIED INJURY OF LEFT ANKLE, INITIA 02/15/2020 JUAN LICONA MD Ot E11. 51 TYPE 2 DIABETES W DIABETIC PERIPHERAL AN 02/15/2020 JUAN LICONA MD Ot E78. 2 MIXED HYPERLIPIDEMIA 02/15/2020 JUAN LICONA MD Ot R06. 09 OTHER FORMS OF DYSPNEA 02/15/2020 JUAN LICONA MD Ot R07. 89 OTHER CHEST PAIN 02/15/2020 JUAN LICONA MD Ot E11. 51 TYPE 2 DIABETES W DIABETIC PERIPHERAL AN 02/15/2020 JUAN LICONA MD Ot E78. 2 MIXED HYPERLIPIDEMIA 02/15/2020 JUAN LICONA MD Ot R06. 09 OTHER FORMS OF DYSPNEA 02/15/2020 JUAN LICONA MD Ot R07. 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, UNSPECIFIED, UNCOMP 02/15/2020 LUKASZ CROWLEY APRN Ot G47.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 02/15/2020 LUKASZ CROWLEY APRN Ot J30.9 ALLERGIC RHINITIS, UNSPECIFIED 02/15/2020 LUKASZ CROWLEY PRINTMAKER Ot J42 UNSPECIFIED CHRONIC BRONCHITIS 02/15/2020 LUKASZ CROWLEY PRINTMAKER Ot J44.9 CHRONIC OBSTRUCTIVE PULMONARY DISEASE, U 02/15/2020 LUKASZ CROWLEY PRINTMAKER Ot Z99.81 DEPENDENCE ON SUPPLEMENTAL OXYGEN 02/15/2020 LUKASZ CROWLEY PRINTMAKER Ot F12.10 CANNABIS ABUSE, UNCOMPLICATED 02/15/2020 CARLINELUKASZ COX PRINTMAKER Ot F17.210 NICOTINE DEPENDENCE, CIGARETTES, UNCOMPL 02/15/2020 CARLINECARMELINA COXINE E PRINTMAKER Ot G47.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 02/15/2020 LUKASZ CROWLEY PRINTMAKER Ot J18.1 LOBAR PNEUMONIA, UNSPECIFIED ORGANISM 02/15/2020 LUKASZ CROWLEY PRINTMAKER Ot J30.9 ALLERGIC RHINITIS, UNSPECIFIED 02/15/2020 LUKASZ CROWLEY PRINTMAKER Ot J44.9 CHRONIC OBSTRUCTIVE PULMONARY DISEASE, U 02/15/2020 LUKASZ CROWLEY PRINTMAKER Ot Z12.2 ENCNTR SCREEN FOR MALIGNANT NEOPLASM OF 02/15/2020 LUKASZ CROWLEY PRINTMAKER Ot Z99.81 DEPENDENCE ON SUPPLEMENTAL OXYGEN 02/15/2020 RUDOLPH KENT DO Ot Z45.2 ENCOUNTER FOR ADJUSTMENT AND MANAGEMENT 02/15/2020 SARAH ROBERTSON Ot 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, CERVICOTHORACIC REGIO 02/15/2020 SARAH ROBERTSON Ot M48.02 SPINAL STENOSIS, CERVICAL REGION 02/15/2020 SARAH ROBERTSON Ot M50.11 CERV DISC DISORDER WITH RADICULOPATHY, H 02/15/2020 SARAH ROBERTSON Ot M50.121 CERVICAL DISC DISORDER AT C4-C5 LEVEL [place] 02/15/2020 PETRA MCMANUS MD Ot E11.9 TYPE 2 DIABETES MELLITUS WITHOUT COMPLIC 02/15/2020 YONATHAN ALEXANDRE, PETRA Dinero Ot E78.00 PURE HYPERCHOLESTEROLEMIA, UNSPECIFIED 02/15/2020 PETRA MCMANUS MD Ot E87.5 HYPERKALEMIA 02/15/2020 PETRA MCMANUS MD Ot F32.9 MAJOR DEPRESSIVE DISORDER, SINGLE EPISOD 02/15/2020 PETRA MCMANUS MD Ot F41.9 ANXIETY DISORDER, UNSPECIFIED 02/15/2020 PETRA MCMANUS MD, Ot I11.0 HYPERTENSIVE HEART DISEASE WITH HEART FA 02/15/2020 PETRA MCMANUS MD, Ot I50.9 HEART FAILURE, UNSPECIFIED 02/15/2020 PETRA MCMANUS MD, Ot J18.9 PNEUMONIA, UNSPECIFIED ORGANISM 02/15/2020 PETRA MCMANUS MD, Ot J44.0 CHR OBSTRUCTIVE PULMON DISEASE WITH (ACU 02/15/2020 PETRA MCMANUS MD, Ot M25.552 PAIN IN LEFT HIP 02/15/2020 PETRA MCMANUS MD, Ot N17.9 ACUTE KIDNEY FAILURE, UNSPECIFIED 02/15/2020 PETRA MCMANUS MD, Ot W19.XXXA UNSPECIFIED FALL, INITIAL ENCOUNTER 02/15/2020 PETRA MCMANUS MD, Ot Y92.[address] IN [facility] NON-INSTITUT (PRIVATE 02/15/2020 PETRA MCMANUS MD, Ot Z77.22 CNTCT W AND EXPSR TO ENVIRON TOBACCO SMO 02/15/2020 PETRA MCMANUS MD, Ot Z79.4 ROLE PLAYER (CURRENT) USE OF INSULIN 02/15/2020 PETRA MCMANUS MD, Ot Z79.51 JAIL (CURRENT) USE OF INHALED STERO 02/15/2020 PETRA MCMANUS MD, Ot Z79.82 ROLE PLAYER (CURRENT) USE OF ASPIRIN 02/15/2020 PETRA MCMANUS MD, Ot Z80.0 FAMILY HISTORY OF MALIGNANT NEOPLASM OF 02/15/2020 PETRA MCMANUS MD, Ot Z88.8 ALLERGY STATUS TO OT DRUG/MEDS/BIOL SUB 02/15/2020 PETRA MCMANUS MD, Ot Z91.041 RADIOGRAPHIC DYE ALLERGY STATUS 02/15/2020 PETRA MCMANUS MD, Ot Z95.5 PRESENCE OF CORONARY ANGIOPLASTY IMPLANT 02/16/2020 JUAN LICONA MD Ot 272. 4 HYPERLIPIDEMIA NEC/NOS 02/16/2020 JUAN LICONA MD Ot 397. 0 TRICUSPID VALVE DISEASE 02/16/2020 JUAN LICONA MD Ot 424. 0 MITRAL VALVE DISORDER 02/16/2020 JUAN LICONA MD Ot 786. 09 RESPIRATORY ABNORM NEC 02/16/2020 JUAN LICONA MD Ot 786. 50 CHEST PAIN NOS 02/16/2020 JUAN LICONA MD Ot V46. 2 SUPPLEMENTAL OXYGEN 02/16/2020 JUAN LICONA MD Ot 272. 4 HYPERLIPIDEMIA NEC/NOS 02/16/2020 JUAN LICONA MD Ot 786. 09 RESPIRATORY ABNORM NEC 02/16/2020 JUAN LICONA MD Ot 786. 50 CHEST PAIN NOS 02/16/2020 JUAN LICONA MD Ot V46. 2 SUPPLEMENTAL OXYGEN 02/16/2020 RUDOLPH KENT DO Ot V76.12 OTH SCREEN MAMMO-MALIGN NEOPLASM OF [place] 02/16/2020 QING TAO DO Ot 305. 1 TOBACCO USE DISORDER 02/16/2020 QING TAO DO Ot 496 CHR AIRWAY OBSTRUCT NEC 02/16/2020 QING TAO DO Ot 786. 09 RESPIRATORY ABNORM NEC 02/16/2020 KASIE DPM, ANDREA Q Ot 355. 5 TARSAL TUNNEL SYNDROME 02/16/2020 CHA VERDUGO DO Ot V72.84 EXAM PRE-OPERATIVE NOS 02/16/2020 LUCINA DO, MEDARDOROUTIE Ot 530.10 ESOPHAGITIS NOS 02/16/2020 LUCINA DO, MEDARDOROUTIE Ot 553.3 DIAPHRAGMATIC HERNIA 02/16/2020 LUCINACHA DIANA DO Ot 787.20 DYSPHAGIA, UNSPECIFIED 02/16/2020 JIMMY KENT DRAFTING LAYOUT WORKER Ot 486 PNEUMONIA, ORGANISM NOS 02/16/2020 JIMMY KENT L DRAFTING LAYOUT WORKER Ot 789.00 ABDOMINAL PAIN, UNSPECIFIED SITE 02/16/2020 JIMMY KENT L DRAFTING LAYOUT WORKER Ot 959.6 HIP THIGH INJURY NOS 02/16/2020 ADAMA KENTIA L DRAFTING LAYOUT WORKER Ot E000.8 OTHER EXTERNAL CAUSE STATUS 02/16/2020 JIMMY KENT DRAFTING LAYOUT WORKER Ot E849.4 ACCID IN RECREATION AREA 02/16/2020 JIMMY KETN DRAFTING LAYOUT WORKER Ot E888.9 FALL NOS 02/16/2020 CAIO KRISHAN, PETRA Raymond Ot 724. 5 BACKACHE NOS 02/16/2020 CAIO KRISHAN, PETRA Raymond Ot 786. 50 CHEST PAIN NOS 02/16/2020 CAIOJANIYA NICKERSON, PETRA Raymond Ot 724. 1 PAIN IN THORACIC SPINE 02/16/2020 PETRA KEARNEY DC Ot 786. 50 CHEST PAIN NOS 02/16/2020 KETN DO, RUDOLPH Raymond Ot 414.00 CORON ATHEROSCLER NOS TYPE VESSEL, NATIV 02/16/2020 KENT DO, RUDOLPH Raymond Ot 786.50 CHEST PAIN NOS 02/16/2020 KENT DO, RUDOLPH Raymond Ot I25.10 ATHSCL HEART DISEASE OF [place] CORONARY 02/16/2020 [place] DO, RUDOLPH Raymond Ot R07.9 CHEST PAIN, UNSPECIFIED 02/16/2020 [facility] DO, CHANDROUTIE Ot R10.9 UNSPECIFIED ABDOMINAL PAIN 02/16/2020 [facility], MEDARDOROUTIE Ot Z01.818 ENCOUNTER FOR OTHER PREPROCEDURAL EXAMIN 02/16/2020 [facility], CHA Ot 553.20 VENTRAL HERNIA NOS 02/16/2020 [facility], CHA Ot V81.5 SCREEN FOR NEPHROPATHY 02/16/2020 LUKASZ CROWLEY APRN Ot F17.210 NICOTINE DEPENDENCE, CIGARETTES, UNCOMPL 02/16/2020 LUKASZ CROWLEY APRN Ot J44.9 CHRONIC OBSTRUCTIVE PULMONARY DISEASE, U 02/16/2020 LUKASZ CROWLEY APRN Ot R06.00 DYSPNEA, UNSPECIFIED 02/16/2020 FRANDY DE [place] ROSA Ot E11.9 TYPE 2 DIABETES MELLITUS WITHOUT COMPLIC 02/16/2020 FRANDY DE [place] Ot E78.2 MIXED HYPERLIPIDEMIA 02/16/2020 FRANDY DE [place] ROSA Ot I10 ESSENTIAL (PRIMARY) HYPERTENSION 02/16/2020 FRANDY DE LA ROSA Ot I25.10 ATHSCL HEART DISEASE OF [place] CORONARY 02/16/2020 FRANDY DE LA ROSA Ot E11.9 TYPE 2 DIABETES MELLITUS WITHOUT COMPLIC 02/16/2020 FRANDY DE LA ROSA Ot E78.2 MIXED HYPERLIPIDEMIA 02/16/2020 FRANDY DE LA ROSA Ot I10 ESSENTIAL (PRIMARY) HYPERTENSION 02/16/2020 FRANDY DE LA ROSA Ot I25.10 ATHSCL HEART DISEASE OF [place] CORONARY 02/16/2020 LUKASZ CROWLEY APRN Ot F17.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, UNSPECIFIED, UNCOMP 02/16/2020 LUKASZ CROWLEY APRN, Ot J44.9 CHRONIC OBSTRUCTIVE PULMONARY DISEASE, U 02/16/2020 YOLI VILLALPANDO, RUDOLPH Raymond Ot M94.8X6 OTHER SPECIFIED DISORDERS OF [place], 02/16/2020 RUDOLPH KENT DO, Ot S83.242A OTH TEAR OF MEDIAL MENISCUS, CURRENT INJ 02/16/2020 YOLI VILLALPANDO, RUDOLPH Raymond Ot S83.282A OTH TEAR OF LAT MENSC, CURRENT INJURY, L 02/16/2020 RUDOLPH KENT DO, Ot X58.XXXA EXPOSURE TO OTHER SPECIFIED FACTORS, INI 02/16/2020 RUDOLPH KENT DO Ot Y99.8 OTHER EXTERNAL CAUSE STATUS 02/16/2020 RUDOLPH KENT DO, Ot Z12.31 ENCNTR SCREEN MAMMOGRAM FOR MALIGNANT NE 02/16/2020 YOLI VILLALPANDO, RUDOLPH Raymond Ot M40.209 UNSPECIFIED KYPHOSIS, SITE UNSPECIFIED 02/16/2020 RUDOLPH KENT DO, Ot M85.852 OT DISRD OF BONE DENSITY AND STRUCTURE, 02/16/2020 RUDOLPH KENT DO, Ot Z78.0 ASYMPTOMATIC MENOPAUSAL STATE 02/16/2020 EARNESTINE ALEXANDRE, RAY Davis Ot L98 .9 DISORDER OF THE SKIN AND SUBCUTANEOUS TI 02/16/2020 YOLI VILLALPANDO, RUDOLPH Raymond Ot M77.32 CALCANEAL SPUR, LEFT FOOT 02/16/2020 RUDOLPH KENT DO, Ot S79.912A UNSPECIFIED INJURY OF LEFT HIP, INITIAL 02/16/2020 RUDOLPH KENT DO, Ot W19.XXXA UNSPECIFIED FALL, INITIAL ENCOUNTER 02/16/2020 RUDOLPH KENT DO Ot F09 UNSP MENTAL DISORDER DUE TO KNOWN PHYSIO 02/16/2020 YOLI VILLALPANDO, RUDOLPH Raymond Ot G43.909 MIGRAINE, UNSP, NOT INTRACTABLE, WITHOUT 02/16/2020 KENT DO, RUDOLPH Raymond Ot W19.XXXA UNSPECIFIED FALL, INITIAL ENCOUNTER 02/16/2020 RUDOLPH KENT DO, Ot M25.78 OSTEOPHYTE, VERTEBRAE 02/16/2020 RUDOLPH KENT DO, Ot M43.16 SPONDYLOLISTHESIS, LUMBAR REGION 02/16/2020 RUDOLPH KENT DO Ot M46.86 OTHER SPECIFIED INFLAMMATORY SPONDYLOPAT 02/16/2020 RUDOLPH KENT DO, Ot M47.27 OTHER SPONDYLOSIS WITH RADICULOPATHY, CATHLEEN 02/16/2020 KENT DO, RUDOLPH Raymond Ot M48.061 SPINAL STENOSIS, LUMBAR REGION WITHOUT N 02/16/2020 YOLI VILLALPANDO, RUDOLPH Raymond Ot M51.16 INTERVERTEBRAL DISC DISORDERS W RADICULO 02/16/2020 YOLI VILLALPANDO, RUDOLPH Raymond Ot M99.73 CONN TISS AND DISC STENOS OF INTVRT FORA 02/16/2020 YOLI VILLALPANDO, RUDOLPH Raymond Ot S99.912A UNSPECIFIED INJURY OF LEFT ANKLE, INITIA 02/16/2020 JUAN LICONA MD Ot E11. 51 TYPE 2 DIABETES W DIABETIC PERIPHERAL AN 02/16/2020 JUAN LICONA MD Ot E78. 2 MIXED HYPERLIPIDEMIA 02/16/2020 JUAN LICONA MD Ot R06. 09 OTHER FORMS OF DYSPNEA 02/16/2020 JUAN LICONA MD Ot R07. 89 OTHER CHEST PAIN 02/16/2020 JUAN LICONA MD Ot E11. 51 TYPE 2 DIABETES W DIABETIC PERIPHERAL AN 02/16/2020 JUAN LICONA MD Ot E78. 2 MIXED HYPERLIPIDEMIA 02/16/2020 JUAN LICONA MD Ot R06. 09 OTHER FORMS OF DYSPNEA 02/16/2020 JUAN LICONA MD Ot R07. 89 OTHER CHEST PAIN 02/16/2020 LUKASZ CROWLEY APRN Ot F12.10 CANNABIS ABUSE, UNCOMPLICATED 02/16/2020 LUKASZ CROWLEY PRINTMAKER Ot F17.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, UNSPECIFIED, UNCOMP 02/16/2020 LUKASZ CROWLEY PRINTMAKER Ot G47.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 02/16/2020 LUKASZ CROWLEY PRINTMAKER Ot J30.9 ALLERGIC RHINITIS, UNSPECIFIED 02/16/2020 LUKASZ CROWLEY PRINTMAKER Ot J42 UNSPECIFIED CHRONIC BRONCHITIS 02/16/2020 LUKASZ CROWLEY APRN Ot J44.9 CHRONIC OBSTRUCTIVE PULMONARY DISEASE, U 02/16/2020 LUKASZ CROWLEY APRN Ot Z99.81 DEPENDENCE ON SUPPLEMENTAL OXYGEN 02/16/2020 LUKASZ CROWLEY PRINTMAKER Ot F12.10 CANNABIS ABUSE, UNCOMPLICATED 02/16/2020 LUKASZ CROWLEY PRINTMAKER Ot F17.210 NICOTINE DEPENDENCE, CIGARETTES, UNCOMPL 02/16/2020 LUKASZ CROWLEY APRN Ot G47.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 02/16/2020 LUKASZ CROWLEY APRN Ot J18.1 LOBAR PNEUMONIA, UNSPECIFIED ORGANISM 02/16/2020 LUKASZ CROWLEY APRN Ot J30.9 ALLERGIC RHINITIS, UNSPECIFIED 02/16/2020 LUKASZ CROWLEY APRN Ot J44.9 CHRONIC OBSTRUCTIVE PULMONARY DISEASE, U 02/16/2020 LUKASZ CROWLEY APRN Ot Z12.2 ENCNTR SCREEN FOR MALIGNANT NEOPLASM OF 02/16/2020 LUKASZ CROWLEY APRN Ot Z99.81 DEPENDENCE ON SUPPLEMENTAL OXYGEN 02/16/2020 RUDOLPH KENT DO Ot Z45.2 ENCOUNTER FOR ADJUSTMENT AND MANAGEMENT 02/16/2020 SARAH ROBERTSON Ot 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, CERVICOTHORACIC REGIO 02/16/2020 SARAH ROBERTSON Ot M48.02 SPINAL STENOSIS, CERVICAL REGION 02/16/2020 SARAH ROBERTSON Ot M50.11 CERV DISC DISORDER WITH RADICULOPATHY, H 02/16/2020 SARAH ROBERTSON Ot M50.121 CERVICAL DISC DISORDER AT C4-C5 LEVEL [place] 02/18/2020 PETRA MCMANUS MD Ot E11.9 TYPE 2 DIABETES MELLITUS WITHOUT COMPLIC 02/18/2020 PETRA MCMANUS MD Ot E78.00 PURE HYPERCHOLESTEROLEMIA, UNSPECIFIED 02/18/2020 PETRA MCMANUS MD Ot E87.5 HYPERKALEMIA 02/18/2020 PETRA MCMANUS MD Ot F32.9 MAJOR DEPRESSIVE DISORDER, SINGLE EPISOD 02/18/2020 PETRA MCMANUS MD Ot F41.9 ANXIETY DISORDER, UNSPECIFIED 02/18/2020 PETRA MCMANUS MD Ot I11.0 HYPERTENSIVE HEART DISEASE WITH HEART FA 02/18/2020 PETRA MCMANUS MD Ot I50.9 HEART FAILURE, UNSPECIFIED 02/18/2020 PETRA MCMANUS MD Ot J18.9 PNEUMONIA, UNSPECIFIED ORGANISM 02/18/2020 PETRA MCMANUS MD Ot J44.0 CHR OBSTRUCTIVE PULMON DISEASE WITH (ACU 02/18/2020 PETRA MCMANUS MD Ot M25.552 PAIN IN LEFT HIP 02/18/2020 PETRA MCMANUS MD Ot N17.9 ACUTE KIDNEY FAILURE, UNSPECIFIED 02/18/2020 PETRA MCMANUS MD, Ot W19.XXXA UNSPECIFIED FALL, INITIAL ENCOUNTER 02/18/2020 PETRA MCMANUS MD, Ot Y92.[address] [facility] [address] IN [facility] NON-INST[facility] (PRIVATE 02/18/2020 PETRA MCMANUS MD, Ot Z77.22 CNTCT W AND EXPSR TO ENVIRON TOBACCO SMO 02/18/2020 PETRA MCMANUS MD, Ot Z79.4 ROLE PLAYER (CURRENT) USE OF INSULIN 02/18/2020 PETRA MCMANUS MD, Ot Z79.51 JAIL (CURRENT) USE OF INHALED STERO 02/18/2020 PETRA MCMANUS MD, Ot Z79.82 ROLE PLAYER (CURRENT) USE OF ASPIRIN 02/18/2020 PETRA MCMANUS MD, Ot Z80.0 FAMILY HISTORY OF MALIGNANT NEOPLASM OF 02/18/2020 PETRA MCMANUS MD, Ot Z88.8 ALLERGY STATUS TO [facility]/MEDS/BIOL SUB 02/18/2020 PETRA MCMANUS MD, Ot Z91.041 RADIOGRAPHIC DYE ALLERGY STATUS 02/18/2020 PETRA MCMANUS MD, Ot Z95.5 PRESENCE OF CORONARY ANGIOPLASTY IMPLANT 02/24/2020 JUAN LICONA MD Ot 272. 4 HYPERLIPIDEMIA NEC/NOS 02/24/2020 JUAN LICONA MD Ot 397. 0 TRICUSPID VALVE DISEASE 02/24/2020 JUAN LICONA MD Ot 424. 0 MITRAL VALVE DISORDER 02/24/2020 JUAN LICONA MD Ot 786. 09 RESPIRATORY ABNORM NEC 02/24/2020 JUAN LICONA MD Ot 786. 50 CHEST PAIN NOS 02/24/2020 JUAN LICONA MD Ot V46. 2 SUPPLEMENTAL OXYGEN 02/24/2020 JUAN LICONA MD Ot 272. 4 HYPERLIPIDEMIA NEC/NOS 02/24/2020 JUAN LICONA MD Ot 786. 09 RESPIRATORY ABNORM NEC 02/24/2020 JUAN LICONA MD Ot 786. 50 CHEST PAIN NOS 02/24/2020 JUAN LICONA MD Ot V46. 2 SUPPLEMENTAL OXYGEN 02/24/2020 RUDOLPH KENT DO Ot V76.12 OTH SCREEN MAMMO-MALIGN NEOPLASM OF JEANETH 02/24/2020 AISLINN VILLALPANDO QING Andrew Ot 305. 1 TOBACCO USE DISORDER 02/24/2020 QING TAO DO Ot 496 CHR AIRWAY OBSTRUCT NEC 02/24/2020 QING TAO DO Ot 786. 09 RESPIRATORY ABNORM NEC 02/24/2020 KASIE DPM, ANDREA Q Ot 355. 5 TARSAL TUNNEL SYNDROME 02/24/2020 [facility] Ot V72.84 EXAM PRE-OPERATIVE NOS 02/24/2020 [facility], MEDARDOROUTIE Ot 530.10 ESOPHAGITIS NOS 02/24/2020 [facility] Ot 553.3 DIAPHRAGMATIC HERNIA 02/24/2020 [facility], CHA Ot 787.20 DYSPHAGIA, UNSPECIFIED 02/24/2020 JIMMY KENT DRAFTING LAYOUT WORKER Ot 486 PNEUMONIA, ORGANISM NOS 02/24/2020 JIMMY KENT DRAFTING LAYOUT WORKER Ot 789.00 ABDOMINAL PAIN, UNSPECIFIED SITE 02/24/2020 JIMMY KENT DRAFTING LAYOUT WORKER Ot 959.6 HIP THIGH INJURY NOS 02/24/2020 JIMMY KENT DRAFTING LAYOUT WORKER Ot E000.8 OTHER EXTERNAL CAUSE STATUS 02/24/2020 JIMMY KENT DRAFTING LAYOUT WORKER Ot E849.4 ACCID IN RECREATION AREA 02/24/2020 JIMMY KENT DRAFTING LAYOUT WORKER Ot E888.9 FALL NOS 02/24/2020 WAUS[place]EE KRISHAN, PETRA Raymond Ot 724. 5 BACKACHE NOS 02/24/2020 [place] PETRA NICKERSNO Ot 786. 50 CHEST PAIN NOS 02/24/2020 [place] PETRA NICKERSON Ot 724. 1 PAIN IN THORACIC SPINE 02/24/2020 [place] PETRA NICKERSON Ot 786. 50 CHEST PAIN NOS 02/24/2020 RUDOLPH KENT DO Ot 414.00 CORON ATHEROSCLER NOS TYPE VESSEL, NATIV 02/24/2020 RUDOLPH KENT DO Ot 786.50 CHEST PAIN NOS 02/24/2020 RUDOLPH KENT DO Ot I25.10 ATHSCL HEART DISEASE OF [place] CORONARY 02/24/2020 RUDOLPH KENT DO Ot R07.9 CHEST PAIN, UNSPECIFIED 02/24/2020 LUCINA CHA VILLALPANDO Ot R10.9 UNSPECIFIED ABDOMINAL PAIN 02/24/2020 LUCINA DO, CHA Ot Z01.818 ENCOUNTER FOR OTHER PREPROCEDURAL EXAMIN 02/24/2020 LUCINA DOCHA Ot 553.20 VENTRAL HERNIA NOS 02/24/2020 LUCINA DOCHA Ot V81.5 SCREEN FOR NEPHROPATHY 02/24/2020 LUKASZ CROWLEY APRN Ot F17.210 NICOTINE DEPENDENCE, CIGARETTES, UNCOMPL 02/24/2020 LUKASZ CROWLEY APRN Ot J44.9 CHRONIC OBSTRUCTIVE PULMONARY DISEASE, U 02/24/2020 LUKASZ CROWLEY APRN Ot R06.00 DYSPNEA, UNSPECIFIED 02/24/2020 FRANDY DE LA ROSA Ot E11.9 TYPE 2 DIABETES MELLITUS WITHOUT COMPLIC 02/24/2020 FRANDY DE LA ROSA Ot E78.2 MIXED HYPERLIPIDEMIA 02/24/2020 FRANDY DE LA ROSA Ot I10 ESSENTIAL (PRIMARY) HYPERTENSION 02/24/2020 FRANDY DE LA ROSA Ot I25.10 ATHSCL HEART DISEASE OF [place] CORONARY 02/24/2020 FRANDY DE LA ROSA Ot E11.9 TYPE 2 DIABETES MELLITUS WITHOUT COMPLIC 02/24/2020 FRANDY DE LA ROSA Ot E78.2 MIXED HYPERLIPIDEMIA 02/24/2020 FRANDY DE LA ROSA Ot I10 ESSENTIAL (PRIMARY) HYPERTENSION 02/24/2020 FRANDY DE LA ROSA Ot I25.10 ATHSCL HEART DISEASE OF [place] CORONARY 02/24/2020 LUKASZ CROWLEY APRN Ot F17.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, UNSPECIFIED, UNCOMP 02/24/2020 LUKASZ CROWLEY APRN Ot J44.9 CHRONIC OBSTRUCTIVE PULMONARY DISEASE, U 02/24/2020 RUDOLPH KENT DO Ot M94.8X6 OTHER SPECIFIED DISORDERS OF [place], 02/24/2020 RUDOLPH KENT DO Ot S83.242A OTH TEAR OF MEDIAL MENISCUS, CURRENT INJ 02/24/2020 RUDOLPH KENT DO, Ot S83.282A OTH TEAR OF LAT MENSC, CURRENT INJURY, L 02/24/2020 RUDOLPH KENT DO Ot X58.XXXA EXPOSURE TO OTHER SPECIFIED FACTORS, INI 02/24/2020 YOLI VILLALPANDO, RUDOLPH Raymond Ot Y99.8 OTHER EXTERNAL CAUSE STATUS 02/24/2020 YOLI VILLALPANDO, RUDOLPH Raymond Ot Z12.31 ENCNTR SCREEN MAMMOGRAM FOR MALIGNANT NE 02/24/2020 YOLI VILLALPANDO, RUDOLPH Raymond Ot M40.209 UNSPECIFIED KYPHOSIS, SITE UNSPECIFIED 02/24/2020 YOLI VILLALPANDO, RUDOLPH Raymond Ot M85.852 OT DISRD OF BONE DENSITY AND STRUCTURE, 02/24/2020 RUDOLPH KENT DO, Ot Z78.0 ASYMPTOMATIC MENOPAUSAL STATE 02/24/2020 EARNESTINE ALEXANDRE, RAY Davis Ot L98 .9 DISORDER OF THE SKIN AND SUBCUTANEOUS TI 02/24/2020 YOLI VILLALPANDO, RUDOLPH Raymond Ot M77.32 CALCANEAL SPUR, LEFT FOOT 02/24/2020 YOLI VILLALPANDO, RUDOLPH Raymond Ot S79.912A UNSPECIFIED INJURY OF LEFT HIP, INITIAL 02/24/2020 YOLI VILLALPANDO, RUDOLPH Raymond Ot W19.XXXA UNSPECIFIED FALL, INITIAL ENCOUNTER 02/24/2020 RUDOLPH KENT DO, Ot F09 UNSP MENTAL DISORDER DUE TO KNOWN PHYSIO 02/24/2020 YOLI VILLALPANDO, RUDOLPH Raymond Ot G43.909 MIGRAINE, UNSP, NOT INTRACTABLE, WITHOUT 02/24/2020 YOLI VILLALPANDO, RUDOLPH Raymond Ot W19.XXXA UNSPECIFIED FALL, INITIAL ENCOUNTER 02/24/2020 RUDOLPH KENT DO, Ot M25.78 OSTEOPHYTE, VERTEBRAE 02/24/2020 RUDOLPH KENT DO, Ot M43.16 SPONDYLOLISTHESIS, LUMBAR REGION 02/24/2020 RUDOLPH KENT DO, Ot M46.86 OTHER SPECIFIED INFLAMMATORY SPONDYLOPAT 02/24/2020 YOLI VILLALPANDO, RUDOLPH Raymond Ot M47.27 OTHER SPONDYLOSIS WITH RADICULOPATHY, CATHLEEN 02/24/2020 YOLI VILLALPANDO, RUDOLPH Raymond Ot M48.061 SPINAL STENOSIS, LUMBAR REGION WITHOUT N 02/24/2020 RUDOLPH KENT DO, Ot M51.16 INTERVERTEBRAL DISC DISORDERS W RADICULO 02/24/2020 YOLI VILLALPANDO, RUDOLPH Raymond Ot M99.73 CONN TISS AND DISC STENOS OF INTVRT FORA 02/24/2020 RUDOLPH KENT DO, Ot S99.912A UNSPECIFIED INJURY OF LEFT ANKLE, INITIA 02/24/2020 JUAN LICONA MD Ot E11. 51 TYPE 2 DIABETES W DIABETIC PERIPHERAL AN 02/24/2020 JUAN LICONA MD Ot E78. 2 MIXED HYPERLIPIDEMIA 02/24/2020 LIVAN ALEXANDRE, JUAN Raymond Ot R06. 09 OTHER FORMS OF DYSPNEA 02/24/2020 JUAN LICONA MD J Ot R07. 89 OTHER CHEST PAIN 02/24/2020 LIVAN ALEXANDRE, JUAN Raymond Ot E11. 51 TYPE 2 DIABETES W DIABETIC PERIPHERAL AN 02/24/2020 JUAN LICONA MD Ot E78. 2 MIXED HYPERLIPIDEMIA 02/24/2020 LIVAN ALEXANDRE, JUAN Raymond Ot R06. 09 OTHER FORMS OF DYSPNEA 02/24/2020 LIVAN ALEXANDRE, JUAN Raymond Ot R07. 89 OTHER CHEST PAIN 02/24/2020 CARMELINA CROWLEYINE E PRINTMAKER Ot F12.10 CANNABIS ABUSE, UNCOMPLICATED 02/24/2020 CARMELINA CROWLEYINE E PRINTMAKER Ot F17.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, UNSPECIFIED, UNCOMP 02/24/2020 CARMELINA CROWLEYINE E PRINTMAKER Ot G47.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 02/24/2020 CARMELINA CROWLEYINE E PRINTMAKER Ot J30.9 ALLERGIC RHINITIS, UNSPECIFIED 02/24/2020 CARMELINA CROWLEYINE E PRINTMAKER Ot J42 UNSPECIFIED CHRONIC BRONCHITIS 02/24/2020 CARMELINA CROWLEYINE E PRINTMAKER Ot J44.9 CHRONIC OBSTRUCTIVE PULMONARY DISEASE, U 02/24/2020 CARMELINA CROWLEYINE E PRINTMAKER Ot Z99.81 DEPENDENCE ON SUPPLEMENTAL OXYGEN 02/24/2020 CARMELINA CROWLEYINE E PRINTMAKER Ot F12.10 CANNABIS ABUSE, UNCOMPLICATED 02/24/2020 CARMELINA CROWLEYINE E PRINTMAKER Ot F17.210 NICOTINE DEPENDENCE, CIGARETTES, UNCOMPL 02/24/2020 CARLINE LUKASZ E PRINTMAKER Ot G47.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 02/24/2020 CARMELINA CROWLEYINE E PRINTMAKER Ot J18.1 LOBAR PNEUMONIA, UNSPECIFIED ORGANISM 02/24/2020 CARMELINA CROWLEYINE E PRINTMAKER Ot J30.9 ALLERGIC RHINITIS, UNSPECIFIED 02/24/2020 CARMELINA CROWLEYINE E PRINTMAKER Ot J44.9 CHRONIC OBSTRUCTIVE PULMONARY DISEASE, U 02/24/2020 CARMELINA CROWLEYINE E PRINTMAKER Ot Z12.2 ENCNTR SCREEN FOR MALIGNANT NEOPLASM OF 02/24/2020 LUKASZ CROWLEY APRN Ot Z99.81 DEPENDENCE ON SUPPLEMENTAL OXYGEN 02/24/2020 RUDOLPH KENT DO Ot Z45.2 ENCOUNTER FOR ADJUSTMENT AND MANAGEMENT 02/24/2020 SARAH ROBERTSON Ot 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, CERVICOTHORACIC REGIO 02/24/2020 SARAH ROBERTSON Ot M48.02 SPINAL STENOSIS, CERVICAL REGION 02/24/2020 SARAH ROBERTSON Ot M50.11 CERV DISC DISORDER WITH RADICULOPATHY, H 02/24/2020 SARAH ROBERTSON Ot M50.121 CERVICAL DISC DISORDER AT C4-C5 LEVEL [place] 02/24/2020 JUAN LICONA MD Ot 272. 4 HYPERLIPIDEMIA NEC/NOS 02/24/2020 JUAN LICONA MD Ot 397. 0 TRICUSPID VALVE DISEASE 02/24/2020 JUAN LICONA MD Ot 424. 0 MITRAL VALVE DISORDER 02/24/2020 JUAN LICONA MD Ot 786. 09 RESPIRATORY ABNORM NEC 02/24/2020 JUAN LICONA MD Ot 786. 50 CHEST PAIN NOS 02/24/2020 JUAN LICONA MD Ot V46. 2 SUPPLEMENTAL OXYGEN 02/24/2020 JUAN LICONA MD Ot 272. 4 HYPERLIPIDEMIA NEC/NOS 02/24/2020 JUAN LICONA MD Ot 786. 09 RESPIRATORY ABNORM NEC 02/24/2020 JUAN LICONA MD Ot 786. 50 CHEST PAIN NOS 02/24/2020 JUAN LICONA MD Ot V46. 2 SUPPLEMENTAL OXYGEN 02/24/2020 RUDOLPH KENT DO Ot V76.12 OTH SCREEN MAMMO-MALIGN NEOPLASM OF [place] 02/24/2020 QING TAO DO Ot 305. 1 TOBACCO USE DISORDER 02/24/2020 QING TAO DO Ot 496 CHR AIRWAY OBSTRUCT NEC 02/24/2020 QING TAO DO Ot 786. 09 RESPIRATORY ABNORM NEC 02/24/2020 KASIE DPM, ANDREA Q Ot 355. 5 TARSAL TUNNEL SYNDROME 02/24/2020 CHA VERDUGO DO Ot V72.84 EXAM PRE-OPERATIVE NOS 02/24/2020 CHA VERDUGO DO Ot 530.10 ESOPHAGITIS NOS 02/24/2020 CHA VERDUGO DO Ot 553.3 DIAPHRAGMATIC HERNIA 02/24/2020 [facility] , MEDARDOROUTIE Ot 787.20 DYSPHAGIA, UNSPECIFIED 02/24/2020 JIMMY KENT DRAFTING LAYOUT WORKER Ot 486 PNEUMONIA, ORGANISM NOS 02/24/2020 JIMMY KENT DRAFTING LAYOUT WORKER Ot 789.00 ABDOMINAL PAIN, UNSPECIFIED SITE 02/24/2020 JIMMY KENT DRAFTING LAYOUT WORKER Ot 959.6 HIP THIGH INJURY NOS 02/24/2020 KENT JIMMY Norris DRAFTING LAYOUT WORKER Ot E000.8 OTHER EXTERNAL CAUSE STATUS 02/24/2020 JIMMY KENT DRAFTING LAYOUT WORKER Ot E849.4 ACCID IN RECREATION AREA 02/24/2020 YOLI JIMMY Norris DRAFTING LAYOUT WORKER Ot E888.9 FALL NOS 02/24/2020 [facility], PETRA Raymond Ot 724. 5 BACKACHE NOS 02/24/2020 [facility], PETRA Raymond Ot 786. 50 CHEST PAIN NOS 02/24/2020 [facility], PETRA Raymond Ot 724. 1 PAIN IN THORACIC SPINE 02/24/2020 [facility], PETRA Raymond Ot 786. 50 CHEST PAIN NOS 02/24/2020 KENT DO, RUDOLPH Raymond Ot 414.00 CORON ATHEROSCLER NOS TYPE VESSEL, NATIV 02/24/2020 RUDOLPH KENT DO Ot 786.50 CHEST PAIN NOS 02/24/2020 KENTRUDOLPH BURNHAM DO Ot I25.10 ATHSCL HEART DISEASE OF [place] CORONARY 02/24/2020 RUDOLPH KENT DO Ot R07.9 CHEST PAIN, UNSPECIFIED 02/24/2020 [facility] CHA VILLALPANDO Ot R10.9 UNSPECIFIED ABDOMINAL PAIN 02/24/2020 [facility] , CHA Ot Z01.818 ENCOUNTER FOR OTHER PREPROCEDURAL EXAMIN 02/24/2020 LUCINACHA DIANA DO Ot 553.20 VENTRAL HERNIA NOS 02/24/2020 LUCINA CHA VILLALPANDO Ot V81.5 SCREEN FOR NEPHROPATHY 02/24/2020 LUKASZ CROWLEY APRN Ot F17.210 NICOTINE DEPENDENCE, CIGARETTES, UNCOMPL 02/24/2020 LUKASZ CROWLEY APRN Ot J44.9 CHRONIC OBSTRUCTIVE PULMONARY DISEASE, U 02/24/2020 LUKASZ CROWLEY APRN Ot R06.00 DYSPNEA, UNSPECIFIED 02/24/2020 DORIS EVANS, FRANDY Aviles Ot E11.9 TYPE 2 DIABETES MELLITUS WITHOUT COMPLIC 02/24/2020 DORIS EVANS, FRANDY Aviles Ot E78.2 MIXED HYPERLIPIDEMIA 02/24/2020 DORIS EVANS, FRANDY Aviles Ot I10 ESSENTIAL (PRIMARY) HYPERTENSION 02/24/2020 DORIS EVANS, FRANDY Aviles Ot I25.10 ATHSCL HEART DISEASE OF [place] CORONARY 02/24/2020 DORIS EVANS, FRANDY Aviles Ot E11.9 TYPE 2 DIABETES MELLITUS WITHOUT COMPLIC 02/24/2020 DORIS EVANS, FRANDY Aviles Ot E78.2 MIXED HYPERLIPIDEMIA 02/24/2020 DORIS EVANS, FRANDY Aviles Ot I10 ESSENTIAL (PRIMARY) HYPERTENSION 02/24/2020 DORIS EVANS, FRANDY Aviles Ot I25.10 ATHSCL HEART DISEASE OF [place] CORONARY 02/24/2020 LUKASZ CROWLEY APRN Ot F17.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, UNSPECIFIED, UNCOMP 02/24/2020 LUKASZ CROWLEY APRN Ot J44.9 CHRONIC OBSTRUCTIVE PULMONARY DISEASE, U 02/24/2020 RUDOLPH KENT DO, Ot M94.8X6 OTHER SPECIFIED DISORDERS OF [place], 02/24/2020 RUDOLPH KENT DO, Ot S83.242A OTH TEAR OF MEDIAL MENISCUS, CURRENT INJ 02/24/2020 RUDOLPH KENT DO, Ot S83.282A OTH TEAR OF LAT MENSC, CURRENT INJURY, L 02/24/2020 RUDOLPH KENT DO, Ot X58.XXXA EXPOSURE TO OTHER SPECIFIED FACTORS, INI 02/24/2020 RUDOLPH KENT DO, Ot Y99.8 OTHER EXTERNAL CAUSE STATUS 02/24/2020 RUDOLPH KENT DO, Ot Z12.31 ENCNTR SCREEN MAMMOGRAM FOR MALIGNANT NE 02/24/2020 RUDOLPH KENT DO, Ot M40.209 UNSPECIFIED KYPHOSIS, SITE UNSPECIFIED 02/24/2020 RUDOLPH KENT DO, Ot M85.852 OTH DISRD OF BONE DENSITY AND STRUCTURE, 02/24/2020 RUDOLPH KENT DO, Ot Z78.0 ASYMPTOMATIC MENOPAUSAL STATE 02/24/2020 EARNESTINE ALEXANDRE, RAY Davis Ot L98 .9 DISORDER OF THE SKIN AND SUBCUTANEOUS TI 02/24/2020 YOLI VILLALPANDO, RUDOLPH Raymond Ot M77.32 CALCANEAL SPUR, LEFT FOOT 02/24/2020 KENT DO, RUDOLPH Raymond Ot S79.912A UNSPECIFIED INJURY OF LEFT HIP, INITIAL 02/24/2020 YOLI VILLALPANDO, RUDOLPH Raymond Ot W19.XXXA UNSPECIFIED FALL, INITIAL ENCOUNTER 02/24/2020 YOLI VILLALPANDO, RUDOLPH Raymond Ot F09 UNSP MENTAL DISORDER DUE TO KNOWN PHYSIO 02/24/2020 YOLI VILLALPANDO, RUDOLPH Raymond Ot G43.909 MIGRAINE, UNSP, NOT INTRACTABLE, WITHOUT 02/24/2020 KENT DO, RUDOLPH Raymond Ot W19.XXXA UNSPECIFIED FALL, INITIAL ENCOUNTER 02/24/2020 YOLI VILLALPANDO, RUDOLPH Raymond Ot M25.78 OSTEOPHYTE, VERTEBRAE 02/24/2020 YOLI VILLALPANDO, RUDOLPH Raymond Ot M43.16 SPONDYLOLISTHESIS, LUMBAR REGION 02/24/2020 YOLI VILLALPANDO, RUDOLPH Raymond Ot M46.86 OTHER SPECIFIED INFLAMMATORY SPONDYLOPAT 02/24/2020 YOLI VILLALPANDO, RUDOLPH Raymond Ot M47.27 OTHER SPONDYLOSIS WITH RADICULOPATHY, CATHLEEN 02/24/2020 YOLI VILLALPANDO, RUDOLPH Raymond Ot M48.061 SPINAL STENOSIS, LUMBAR REGION WITHOUT N 02/24/2020 YOLI VILLALPANDO, RUDOLPH Raymond Ot M51.16 INTERVERTEBRAL DISC DISORDERS W RADICULO 02/24/2020 YOLI VILLALPANDO, RUDOLPH Raymond Ot M99.73 CONN TISS AND DISC STENOS OF INTVRT FORA 02/24/2020 YOLI VILLALPANDO, RUDOLPH Raymond Ot S99.912A UNSPECIFIED INJURY OF LEFT ANKLE, INITIA 02/24/2020 JUAN LICONA MD Ot E11. 51 TYPE 2 DIABETES W DIABETIC PERIPHERAL AN 02/24/2020 JUAN LICONA MD Ot E78. 2 MIXED HYPERLIPIDEMIA 02/24/2020 JUAN LICONA MD Ot R06. 09 OTHER FORMS OF DYSPNEA 02/24/2020 JUAN LICONA MD Ot R07. 89 OTHER CHEST PAIN 02/24/2020 JUAN LICONA MD Ot E11. 51 TYPE 2 DIABETES W DIABETIC PERIPHERAL AN 02/24/2020 JUAN LICONA MD Ot E78. 2 MIXED HYPERLIPIDEMIA 02/24/2020 JUAN LICONA MD Ot R06. 09 OTHER FORMS OF DYSPNEA 02/24/2020 LIVAN ALEXANDRE, JUAN Raymond Ot R07. 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, UNSPECIFIED, UNCOMP 02/24/2020 CARLINE, LUKASZ E PRINTMAKER Ot G47.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 02/24/2020 CARLNIE, LUKASZ E PRINTMAKER Ot J30.9 ALLERGIC RHINITIS, UNSPECIFIED 02/24/2020 CARLINE, LUKASZ E PRINTMAKER Ot J42 UNSPECIFIED CHRONIC BRONCHITIS 02/24/2020 CARLINE, LUKASZ E PRINTMAKER Ot J44.9 CHRONIC OBSTRUCTIVE PULMONARY DISEASE, U 02/24/2020 CARLINE, LUKASZ E PRINTMAKER Ot Z99.81 DEPENDENCE ON SUPPLEMENTAL OXYGEN 02/24/2020 CARLINE, LUKASZ E PRINTMAKER Ot F12.10 CANNABIS ABUSE, UNCOMPLICATED 02/24/2020 CARLINE, LUKASZ E PRINTMAKER Ot F17.210 NICOTINE DEPENDENCE, CIGARETTES, UNCOMPL 02/24/2020 CARLINE, LUKASZ E PRINTMAKER Ot G47.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 02/24/2020 CARLINE, LUKASZ E PRINTMAKER Ot J18.1 LOBAR PNEUMONIA, UNSPECIFIED ORGANISM 02/24/2020 CARLINE, LUKASZ E PRINTMAKER Ot J30.9 ALLERGIC RHINITIS, UNSPECIFIED 02/24/2020 CARLINE, LUKASZ E PRINTMAKER Ot J44.9 CHRONIC OBSTRUCTIVE PULMONARY DISEASE, U 02/24/2020 CARLINE, LUKASZ E PRINTMAKER Ot Z12.2 ENCNTR SCREEN FOR MALIGNANT NEOPLASM OF 02/24/2020 CARLINE, LUKASZ E PRINTMAKER Ot Z99.81 DEPENDENCE ON SUPPLEMENTAL OXYGEN 02/24/2020 RUDOLPH KENT DO Ot Z45.2 ENCOUNTER FOR ADJUSTMENT AND MANAGEMENT 02/24/2020 SARAH ROBERTSON Ot 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, CERVICOTHORACIC REGIO 02/24/2020 SARAH ROBERTSON Ot M48.02 SPINAL STENOSIS, CERVICAL REGION 02/24/2020 SARAH ROBERTSON Ot M50.11 CERV DISC DISORDER WITH RADICULOPATHY, H 02/24/2020 SARAH ROBERTSON Ot M50.121 CERVICAL DISC DISORDER AT C4-C5 LEVEL [place] 02/24/2020 LIVAN ALEXANDRE, JUAN Raymond Ot 272. 4 HYPERLIPIDEMIA NEC/NOS 02/24/2020 JUAN LICONA MD Ot 397. 0 TRICUSPID VALVE DISEASE 02/24/2020 JUAN LICONA MD Ot 424. 0 MITRAL VALVE DISORDER 02/24/2020 JUAN LICONA MD Ot 786. 09 RESPIRATORY ABNORM NEC 02/24/2020 JUAN LICONA MD Ot 786. 50 CHEST PAIN NOS 02/24/2020 JUAN LICONA MD Ot V46. 2 SUPPLEMENTAL OXYGEN 02/24/2020 JUAN LICONA MD Ot 272. 4 HYPERLIPIDEMIA NEC/NOS 02/24/2020 JUAN LICONA MD Ot 786. 09 RESPIRATORY ABNORM NEC 02/24/2020 JUAN LIOCNA MD Ot 786. 50 CHEST PAIN NOS 02/24/2020 JUAN LICONA MD Ot V46. 2 SUPPLEMENTAL OXYGEN 02/24/2020 RUDOLPH KENT DO Ot V76.12 OTH SCREEN MAMMO-MALIGN NEOPLASM OF [place] 02/24/2020 QING TAO DO Ot 305. 1 TOBACCO USE DISORDER 02/24/2020 QING TAO DO Ot 496 CHR AIRWAY OBSTRUCT NEC 02/24/2020 QING TAO DO Ot 786. 09 RESPIRATORY ABNORM NEC 02/24/2020 KASIE DPM, ANDREA Q Ot 355. 5 TARSAL TUNNEL SYNDROME 02/24/2020 CHA VERDUGO DO Ot V72.84 EXAM PRE-OPERATIVE NOS 02/24/2020 CHA VERDUGO DO Ot 530.10 ESOPHAGITIS NOS 02/24/2020 CHA VERDUGO DO Ot 553.3 DIAPHRAGMATIC HERNIA 02/24/2020 CHA VERDUGO DO Ot 787.20 DYSPHAGIA, UNSPECIFIED 02/24/2020 JIMMY KENT DRAFTING LAYOUT WORKER Ot 486 PNEUMONIA, ORGANISM NOS 02/24/2020 JIMMY KENT DRAFTING LAYOUT WORKER Ot 789.00 ABDOMINAL PAIN, UNSPECIFIED SITE 02/24/2020 JIMMY KENT DRAFTING LAYOUT WORKER Ot 959.6 HIP THIGH INJURY NOS 02/24/2020 JIMMY KENT DRAFTING LAYOUT WORKER Ot E000.8 OTHER EXTERNAL CAUSE STATUS 02/24/2020 JIMMY KENT DRAFTING LAYOUT WORKER Ot E849.4 ACCID IN RECREATION AREA 02/24/2020 KENTJIMMY Ot E888.9 FALL NOS 02/24/2020 [facility], PETRA Raymond Ot 724. 5 BACKACHE NOS 02/24/2020 [facility], PETRA Raymond Ot 786. 50 CHEST PAIN NOS 02/24/2020 [facility], PETRA Raymond Ot 724. 1 PAIN IN THORACIC SPINE 02/24/2020 [facility], PETRA Raymond Ot 786. 50 CHEST PAIN NOS 02/24/2020 KENT DO, RUDOLPH Raymond Ot 414.00 CORON ATHEROSCLER NOS TYPE VESSEL, NATIV 02/24/2020 KENT DO, RUDOLPH Raymond Ot 786.50 CHEST PAIN NOS 02/24/2020 KENT DO, RUDOLPH Raymond Ot I25.10 ATHSCL HEART DISEASE OF [place] CORONARY 02/24/2020 KENT DO, RUDOLPH Raymond Ot R07.9 CHEST PAIN, UNSPECIFIED 02/24/2020 [facility] DO, CHA Ot R10.9 UNSPECIFIED ABDOMINAL PAIN 02/24/2020 [facility] DO, CHA Ot Z01.818 ENCOUNTER FOR OTHER PREPROCEDURAL EXAMIN 02/24/2020 [facility] DO, CHA Ot 553.20 VENTRAL HERNIA NOS 02/24/2020 [facility] DO, CHA Ot V81.5 SCREEN FOR NEPHROPATHY 02/24/2020 LUKASZ CROWLEY APRN Ot F17.210 NICOTINE DEPENDENCE, CIGARETTES, UNCOMPL 02/24/2020 LUKASZ CROWLEY APRN Ot J44.9 CHRONIC OBSTRUCTIVE PULMONARY DISEASE, U 02/24/2020 LUKASZ CROWLEY APRN Ot R06.00 DYSPNEA, UNSPECIFIED 02/24/2020 FRANDY DE LA ROSA Ot E11.9 TYPE 2 DIABETES MELLITUS WITHOUT COMPLIC 02/24/2020 FRANDY DE LA ROSA Ot E78.2 MIXED HYPERLIPIDEMIA 02/24/2020 FRANDY DE LA ROSA Ot I10 ESSENTIAL (PRIMARY) HYPERTENSION 02/24/2020 FRANDY DE LA ROSA Ot I25.10 ATHSCL HEART DISEASE OF [place] CORONARY 02/24/2020 FRANDY DE LA ROSA Ot E11.9 TYPE 2 DIABETES MELLITUS WITHOUT COMPLIC 02/24/2020 FRANDY DE LA ROSA Ot E78.2 MIXED HYPERLIPIDEMIA 02/24/2020 FRANDY DE LA ROSA Ot I10 ESSENTIAL (PRIMARY) HYPERTENSION 02/24/2020 FRANDY DE LA ROSA Ot I25.10 ATHSCL HEART DISEASE OF [place] CORONARY 02/24/2020 LUKASZ CROWLEY APRN Ot F17.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, UNSPECIFIED, UNCOMP 02/24/2020 LUKASZ CROWLEY APRN Ot J44.9 CHRONIC OBSTRUCTIVE PULMONARY DISEASE, U 02/24/2020 RUDOLPH KENT DO, Ot M94.8X6 OTHER SPECIFIED DISORDERS OF [place], 02/24/2020 RUDOLPH KENT DO, Ot S83.242A OTH TEAR OF MEDIAL MENISCUS, CURRENT INJ 02/24/2020 RUDOLPH KENT DO, Ot S83.282A OTH TEAR OF LAT MENSC, CURRENT INJURY, L 02/24/2020 RUDOLPH KENT DO, Ot X58.XXXA EXPOSURE TO OTHER SPECIFIED FACTORS, INI 02/24/2020 RUDOLPH KENT DO, Ot Y99.8 OTHER EXTERNAL CAUSE STATUS 02/24/2020 RUDOLPH KENT DO, Ot Z12.31 ENCNTR SCREEN MAMMOGRAM FOR MALIGNANT NE 02/24/2020 RUDOLPH KENT DO, Ot M40.209 UNSPECIFIED KYPHOSIS, SITE UNSPECIFIED 02/24/2020 RUDOLPH KENT DO, Ot M85.852 OTH DISRD OF BONE DENSITY AND STRUCTURE, 02/24/2020 RUDOLPH KENT DO, Ot Z78.0 ASYMPTOMATIC MENOPAUSAL STATE 02/24/2020 EARNESTINE ALEXANDRE, RAY Davis Ot L98 .9 DISORDER OF THE SKIN AND SUBCUTANEOUS TI 02/24/2020 RUDOLPH KENT DO, Ot M77.32 CALCANEAL SPUR, LEFT FOOT 02/24/2020 RUDOLPH KENT DO, Ot S79.912A UNSPECIFIED INJURY OF LEFT HIP, INITIAL 02/24/2020 RUDOLPH KENT DO, Ot W19.XXXA UNSPECIFIED FALL, INITIAL ENCOUNTER 02/24/2020 RUDOLPH KENT DO, Ot F09 UNSP MENTAL DISORDER DUE TO KNOWN PHYSIO 02/24/2020 RUDOLPH KENT DO, Ot G43.909 MIGRAINE, UNSP, NOT INTRACTABLE, WITHOUT 02/24/2020 RUDOLPH KENT DO, Ot W19.XXXA UNSPECIFIED FALL, INITIAL ENCOUNTER 02/24/2020 KENT DO, RUDOLPH Raymond Ot M25.78 OSTEOPHYTE, VERTEBRAE 02/24/2020 KENT DO, RUDOLPH Raymond Ot M43.16 SPONDYLOLISTHESIS, LUMBAR REGION 02/24/2020 KENT DO, RUDOLPH Raymond Ot M46.86 OTHER SPECIFIED INFLAMMATORY SPONDYLOPAT 02/24/2020 KENT DO, RUDOLPH Raymond Ot M47.27 OTHER SPONDYLOSIS WITH RADICULOPATHY, CATHLEEN 02/24/2020 KENT DO, RUDOLPH Raymond Ot M48.061 SPINAL STENOSIS, LUMBAR REGION WITHOUT N 02/24/2020 KENT DO, RUDOLPH Raymond Ot M51.16 INTERVERTEBRAL DISC DISORDERS W RADICULO 02/24/2020 KENT DO, RUDOLPH Raymond Ot M99.73 CONN TISS AND DISC STENOS OF INTVRT FORA 02/24/2020 YOLI VILLALPANDO, RUDOLPH Raymond Ot S99.912A UNSPECIFIED INJURY OF LEFT ANKLE, INITIA 02/24/2020 JUAN LICONA MD Ot E11. 51 TYPE 2 DIABETES W DIABETIC PERIPHERAL AN 02/24/2020 JUAN LICONA MD Ot E78. 2 MIXED HYPERLIPIDEMIA 02/24/2020 JUAN LICONA MD Ot R06. 09 OTHER FORMS OF DYSPNEA 02/24/2020 JUAN LICONA MD Ot R07. 89 OTHER CHEST PAIN 02/24/2020 JUAN LICONA MD Ot E11. 51 TYPE 2 DIABETES W DIABETIC PERIPHERAL AN 02/24/2020 JUAN LICONA MD Ot E78. 2 MIXED HYPERLIPIDEMIA 02/24/2020 JUAN LICONA MD Ot R06. 09 OTHER FORMS OF DYSPNEA 02/24/2020 JUAN LICONA MD Ot R07. 89 OTHER CHEST PAIN 02/24/2020 LUKASZ CROWLEY APRN Ot F12.10 CANNABIS ABUSE, UNCOMPLICATED 02/24/2020 LUKASZ CROWLEY APRN Ot F17.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, UNSPECIFIED, UNCOMP 02/24/2020 LUKASZ CROWLEY APRN Ot G47.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 02/24/2020 LUKASZ CROWLEY APRN Ot J30.9 ALLERGIC RHINITIS, UNSPECIFIED 02/24/2020 LUKASZ CROWLEY APRN Ot J42 UNSPECIFIED CHRONIC BRONCHITIS 02/24/2020 CARLINE, LUKASZ E PRINTMAKER Ot J44.9 CHRONIC OBSTRUCTIVE PULMONARY DISEASE, U 02/24/2020 LUKASZ CROWLEY PRINTMAKER Ot Z99.81 DEPENDENCE ON SUPPLEMENTAL OXYGEN 02/24/2020 LUKASZ CROWLEY PRINTMAKER Ot F12.10 CANNABIS ABUSE, UNCOMPLICATED 02/24/2020 LUKASZ CROWLEY PRINTMAKER Ot F17.210 NICOTINE DEPENDENCE, CIGARETTES, UNCOMPL 02/24/2020 LUKASZ CROWLEY PRINTMAKER Ot G47.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 02/24/2020 LUKASZ CROWLEY PRINTMAKER Ot J18.1 LOBAR PNEUMONIA, UNSPECIFIED ORGANISM 02/24/2020 LUKASZ CROWLEY PRINTMAKER Ot J30.9 ALLERGIC RHINITIS, UNSPECIFIED 02/24/2020 LUKASZ CROWLEY PRINTMAKER Ot J44.9 CHRONIC OBSTRUCTIVE PULMONARY DISEASE, U 02/24/2020 LUKASZ CROWLEY PRINTMAKER Ot Z12.2 ENCNTR SCREEN FOR MALIGNANT NEOPLASM OF 02/24/2020 LUKASZ CROWLEY PRINTMAKER Ot Z99.81 DEPENDENCE ON SUPPLEMENTAL OXYGEN 02/24/2020 RUDOLPH KENT DO Ot Z45.2 ENCOUNTER FOR ADJUSTMENT AND MANAGEMENT 02/24/2020 SARAH ROBERTSON Ot 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, CERVICOTHORACIC REGIO 02/24/2020 SARAH ROBERTSON Ot M48.02 SPINAL STENOSIS, CERVICAL REGION 02/24/2020 SARAH ROBERTSON Ot M50.11 CERV DISC DISORDER WITH RADICULOPATHY, H 02/24/2020 SARAH ROBERTSON Ot M50.121 CERVICAL DISC DISORDER AT C4-C5 LEVEL [place] 02/25/2020 JUAN LICONA MD Ot 272. 4 HYPERLIPIDEMIA NEC/NOS 02/25/2020 JUAN LICONA MD Ot 397. 0 TRICUSPID VALVE DISEASE 02/25/2020 JUAN LICONA MD Ot 424. 0 MITRAL VALVE DISORDER 02/25/2020 JUAN LICONA MD Ot 786. 09 RESPIRATORY ABNORM NEC 02/25/2020 JUAN LICONA MD Ot 786. 50 CHEST PAIN NOS 02/25/2020 JUAN LICONA MD Ot V46. 2 SUPPLEMENTAL OXYGEN 02/25/2020 JUAN LICONA MD Ot 272. 4 HYPERLIPIDEMIA NEC/NOS 02/25/2020 JUAN LICONA MD Ot 786. 09 RESPIRATORY ABNORM NEC 02/25/2020 JUAN LICONA MD Ot 786. 50 CHEST PAIN NOS 02/25/2020 JUAN LICONA MD Ot V46. 2 SUPPLEMENTAL OXYGEN 02/25/2020 RUDOLPH KENT DO Ot V76.12 OTH SCREEN MAMMO-MALIGN NEOPLASM OF [place] 02/25/2020 QING TAO DO Ot 305. 1 TOBACCO USE DISORDER 02/25/2020 QING TAO DO Ot 496 CHR AIRWAY OBSTRUCT NEC 02/25/2020 QING TAO DO Ot 786. 09 RESPIRATORY ABNORM NEC 02/25/2020 KASIE DPM, ANDREA Q Ot 355. 5 TARSAL TUNNEL SYNDROME 02/25/2020 CHA VERDUGO DO Ot V72.84 EXAM PRE-OPERATIVE NOS 02/25/2020 LUCINA CHA VILLALPANDO Ot 530.10 ESOPHAGITIS NOS 02/25/2020 LUCINA CHA VILLALPANDO Ot 553.3 DIAPHRAGMATIC HERNIA 02/25/2020 CHA VERDUGO DO Ot 787.20 DYSPHAGIA, UNSPECIFIED 02/25/2020 JIMMY KENT DRAFTING LAYOUT WORKER Ot 486 PNEUMONIA, ORGANISM NOS 02/25/2020 JIMMY KENT L DRAFTING LAYOUT WORKER Ot 789.00 ABDOMINAL PAIN, UNSPECIFIED SITE 02/25/2020 ADAMA KENTIA L DRAFTING LAYOUT WORKER Ot 959.6 HIP THIGH INJURY NOS 02/25/2020 ADAMA KENTIA L DRAFTING LAYOUT WORKER Ot E000.8 OTHER EXTERNAL CAUSE STATUS 02/25/2020 JIMMY KENT DRAFTING LAYOUT WORKER Ot E849.4 ACCID IN RECREATION AREA 02/25/2020 ADAMA KENTIA L DRAFTING LAYOUT WORKER Ot E888.9 FALL NOS 02/25/2020 CAIO KRISHAN, PETRA Raymond Ot 724. 5 BACKACHE NOS 02/25/2020 PETRA KEARNEY DC Ot 786. 50 CHEST PAIN NOS 02/25/2020 CAIOPETRA DENSON DC Ot 724. 1 PAIN IN THORACIC SPINE 02/25/2020 PETRA KEARNEY DC Ot 786. 50 CHEST PAIN NOS 02/25/2020 RUDOLPH KENT DO Ot 414.00 CORON ATHEROSCLER NOS TYPE VESSEL, NATIV 02/25/2020 RUDOLPH KENT DO Ot 786.50 CHEST PAIN NOS 02/25/2020 KENT , RUDOLPH Raymond Ot I25.10 ATHSCL HEART DISEASE OF [place] CORONARY 02/25/2020 RUDOLPH KENT DO Ot R07.9 CHEST PAIN, UNSPECIFIED 02/25/2020 [facility] DO, DIANNTIE Ot R10.9 UNSPECIFIED ABDOMINAL PAIN 02/25/2020 [facility], DIANNTIE Ot Z01.818 ENCOUNTER FOR OTHER PREPROCEDURAL EXAMIN 02/25/2020 [facility] DO, DIANNTIE Ot 553.20 VENTRAL HERNIA NOS 02/25/2020 [facility], DIANNTIE Ot V81.5 SCREEN FOR NEPHROPATHY 02/25/2020 LUKASZ CROWLEY APRN Ot F17.210 NICOTINE DEPENDENCE, CIGARETTES, UNCOMPL 02/25/2020 LUKASZ CROWLEY APRN Ot J44.9 CHRONIC OBSTRUCTIVE PULMONARY DISEASE, U 02/25/2020 LUKASZ CROWLEY APRN Ot R06.00 DYSPNEA, UNSPECIFIED 02/25/2020 FRANDY DE LA ROSA Ot E11.9 TYPE 2 DIABETES MELLITUS WITHOUT COMPLIC 02/25/2020 FRANDY DE LA ROSA Ot E78.2 MIXED HYPERLIPIDEMIA 02/25/2020 DORIS EVANS, FRANDY Aviles Ot I10 ESSENTIAL (PRIMARY) HYPERTENSION 02/25/2020 FRANDY DE LA ROSA Ot I25.10 ATHSCL HEART DISEASE OF [place] CORONARY 02/25/2020 FRANDY DE LA ROSA Ot E11.9 TYPE 2 DIABETES MELLITUS WITHOUT COMPLIC 02/25/2020 FRANDY DE LA ROSA Ot E78.2 MIXED HYPERLIPIDEMIA 02/25/2020 DORIS EVANS, FRANDY K Ot I10 ESSENTIAL (PRIMARY) HYPERTENSION 02/25/2020 DORIS EVANS, FRANDY Aviles Ot I25.10 ATHSCL HEART DISEASE OF [place] CORONARY 02/25/2020 LUKASZ CROWLEY APRN Ot F17.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, UNSPECIFIED, UNCOMP 02/25/2020 LUKASZ CROWLEY APRN Ot J44.9 CHRONIC OBSTRUCTIVE PULMONARY DISEASE, U 02/25/2020 RUDOLPH KENT DO Ot M94.8X6 OTHER SPECIFIED DISORDERS OF [place], 02/25/2020 RUDOLPH KENT DO Ot S83.242A OTH TEAR OF MEDIAL MENISCUS, CURRENT INJ 02/25/2020 YOLI VILLALPANDO, RUDOLPH Raymond Ot S83.282A OTH TEAR OF LAT MENSC, CURRENT INJURY, L 02/25/2020 RUDOLPH KENT DO, Ot X58.XXXA EXPOSURE TO OTHER SPECIFIED FACTORS, INI 02/25/2020 YOLI VILLALPANDO, RUDOLPH Raymond Ot Y99.8 OTHER EXTERNAL CAUSE STATUS 02/25/2020 RUDOLPH KENT DO, Ot Z12.31 ENCNTR SCREEN MAMMOGRAM FOR MALIGNANT NE 02/25/2020 YOLI VILLALPANDO, RUDOLPH Raymond Ot M40.209 UNSPECIFIED KYPHOSIS, SITE UNSPECIFIED 02/25/2020 RUDOLPH KENT DO, Ot M85.852 OTH DISRD OF BONE DENSITY AND STRUCTURE, 02/25/2020 RUDOLPH KENT DO, Ot Z78.0 ASYMPTOMATIC MENOPAUSAL STATE 02/25/2020 EARNESTINE ALEXANDRE, RAY Davis Ot L98 .9 DISORDER OF THE SKIN AND SUBCUTANEOUS TI 02/25/2020 RUDOLPH KENT DO, Ot M77.32 CALCANEAL SPUR, LEFT FOOT 02/25/2020 YOLI VILLALPANDO, RUDOLPH Raymond Ot S79.912A UNSPECIFIED INJURY OF LEFT HIP, INITIAL 02/25/2020 RUDOLPH KENT DO, Ot W19.XXXA UNSPECIFIED FALL, INITIAL ENCOUNTER 02/25/2020 RUDOLPH KENT DO Ot F09 UNSP MENTAL DISORDER DUE TO KNOWN PHYSIO 02/25/2020 RUDOLPH KENT DO, Ot G43.909 MIGRAINE, UNSP, NOT INTRACTABLE, WITHOUT 02/25/2020 RUDOLPH KENT DO, Ot W19.XXXA UNSPECIFIED FALL, INITIAL ENCOUNTER 02/25/2020 RUDOLPH KENT DO, Ot M25.78 OSTEOPHYTE, VERTEBRAE 02/25/2020 RUDOLPH KENT DO, Ot M43.16 SPONDYLOLISTHESIS, LUMBAR REGION 02/25/2020 RUDOLPH KENT DO, Ot M46.86 OTHER SPECIFIED INFLAMMATORY SPONDYLOPAT 02/25/2020 RUDOLPH KENT DO, Ot M47.27 OTHER SPONDYLOSIS WITH RADICULOPATHY, CATHLEEN 02/25/2020 RUDOLPH KENT DO, Ot M48.061 SPINAL STENOSIS, LUMBAR REGION WITHOUT N 02/25/2020 RUDOLPH KENT DO, Ot M51.16 INTERVERTEBRAL DISC DISORDERS W RADICULO 02/25/2020 RUDOLPH KENT DO Ot M99.73 CONN TISS AND DISC STENOS OF INTVRT FORA 02/25/2020 RUDOLPH KENT DO Ot S99.912A UNSPECIFIED INJURY OF LEFT ANKLE, INITIA 02/25/2020 LIVAN ALEXANDRE, JUAN Raymond Ot E11. 51 TYPE 2 DIABETES W DIABETIC PERIPHERAL AN 02/25/2020 LIVAN ALEXANDRE, JUAN Raymond Ot E78. 2 MIXED HYPERLIPIDEMIA 02/25/2020 LIVAN ALEXANDRE, JUAN Raymond Ot R06. 09 OTHER FORMS OF DYSPNEA 02/25/2020 LIVAN ALEXANDRE, JUAN Raymond Ot R07. 89 OTHER CHEST PAIN 02/25/2020 LIVAN ALEXANDRE, JUAN Raymond Ot E11. 51 TYPE 2 DIABETES W DIABETIC PERIPHERAL AN 02/25/2020 LIVAN ALEXANDRE, JUAN Raymond Ot E78. 2 MIXED HYPERLIPIDEMIA 02/25/2020 LIVAN ALEXANDRE, JUAN Raymond Ot R06. 09 OTHER FORMS OF DYSPNEA 02/25/2020 LIVAN ALEXANDRE, JUAN Raymond Ot R07. 89 OTHER CHEST PAIN 02/25/2020 LUKASZ CROWLEY PRINTMAKER Ot F12.10 CANNABIS ABUSE, UNCOMPLICATED 02/25/2020 LUKASZ CROWLEY PRINTMAKER Ot F17.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, UNSPECIFIED, UNCOMP 02/25/2020 LUKASZ CROWLEY PRINTMAKER Ot G47.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 02/25/2020 LUKASZ CROWLEY PRINTMAKER Ot J30.9 ALLERGIC RHINITIS, UNSPECIFIED 02/25/2020 LUKASZ CROWLEY PRINTMAKER Ot J42 UNSPECIFIED CHRONIC BRONCHITIS 02/25/2020 LUKASZ CROWLEY PRINTMAKER Ot J44.9 CHRONIC OBSTRUCTIVE PULMONARY DISEASE, U 02/25/2020 LUKASZ CROWLEY PRINTMAKER Ot Z99.81 DEPENDENCE ON SUPPLEMENTAL OXYGEN 02/25/2020 LUKASZ CROWLEY PRINTMAKER Ot F12.10 CANNABIS ABUSE, UNCOMPLICATED 02/25/2020 LUKASZ CROWLEY PRINTMAKER Ot F17.210 NICOTINE DEPENDENCE, CIGARETTES, UNCOMPL 02/25/2020 LUKASZ CROWLEY PRINTMAKER Ot G47.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 02/25/2020 LUKASZ CROWLEY PRINTMAKER Ot J18.1 LOBAR PNEUMONIA, UNSPECIFIED ORGANISM 02/25/2020 LUKASZ CROWLEY APRN Ot J30.9 ALLERGIC RHINITIS, UNSPECIFIED 02/25/2020 LUKASZ CROWLEY APRN Ot J44.9 CHRONIC OBSTRUCTIVE PULMONARY DISEASE, U 02/25/2020 LUKASZ CROWLEY APRN Ot Z12.2 ENCNTR SCREEN FOR MALIGNANT NEOPLASM OF 02/25/2020 LUKASZ CROWLEY APRN Ot Z99.81 DEPENDENCE ON SUPPLEMENTAL OXYGEN 02/25/2020 RUDOLPH KENT DO Ot Z45.2 ENCOUNTER FOR ADJUSTMENT AND MANAGEMENT 02/25/2020 SARAH ROBERTSON Ot 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, CERVICOTHORACIC REGIO 02/25/2020 SARAH ROBERTSONP Ot M48.02 SPINAL STENOSIS, CERVICAL REGION 02/25/2020 SARAH ROBERTSON Ot M50.11 CERV DISC DISORDER WITH RADICULOPATHY, H 02/25/2020 SARAH ROBERTSON Ot M50.121 CERVICAL DISC DISORDER AT C4-C5 LEVEL [place] 02/25/2020 JUAN LICONA MD Ot 272. 4 HYPERLIPIDEMIA NEC/NOS 02/25/2020 JUAN LICONA MD Ot 397. 0 TRICUSPID VALVE DISEASE 02/25/2020 JUAN LICONA MD Ot 424. 0 MITRAL VALVE DISORDER 02/25/2020 JUAN LICONA MD Ot 786. 09 RESPIRATORY ABNORM NEC 02/25/2020 JUAN LICONA MD Ot 786. 50 CHEST PAIN NOS 02/25/2020 JUAN LICONA MD Ot V46. 2 SUPPLEMENTAL OXYGEN 02/25/2020 JUAN LICONA MD Ot 272. 4 HYPERLIPIDEMIA NEC/NOS 02/25/2020 JUAN LICONA MD Ot 786. 09 RESPIRATORY ABNORM NEC 02/25/2020 JUAN LICONA MD Ot 786. 50 CHEST PAIN NOS 02/25/2020 JUAN LICONA MD Ot V46. 2 SUPPLEMENTAL OXYGEN 02/25/2020 RUDOLPH KENT DO Ot V76.12 OTH SCREEN MAMMO-MALIGN NEOPLASM OF [place] 02/25/2020 QING TAO DO Ot 305. 1 TOBACCO USE DISORDER 02/25/2020 QING TAO DO Ot 496 CHR AIRWAY OBSTRUCT NEC 02/25/2020 QING TAO DO Ot 786. 09 RESPIRATORY ABNORM NEC 02/25/2020 KASIE DPM, ANDREA Q Ot 355. 5 TARSAL TUNNEL SYNDROME 02/25/2020 [facility], CHA Ot V72.84 EXAM PRE-OPERATIVE NOS 02/25/2020 [facility] Ot 530.10 ESOPHAGITIS NOS 02/25/2020 [facility] Ot 553.3 DIAPHRAGMATIC HERNIA 02/25/2020 [facility], CHA Ot 787.20 DYSPHAGIA, UNSPECIFIED 02/25/2020 JIMMY KENT DRAFTING LAYOUT WORKER Ot 486 PNEUMONIA, ORGANISM NOS 02/25/2020 ADAMA KENTIA Jr DRAFTING LAYOUT WORKER Ot 789.00 ABDOMINAL PAIN, UNSPECIFIED SITE 02/25/2020 ADAMA KENTIA Jr DRAFTING LAYOUT WORKER Ot 959.6 HIP THIGH INJURY NOS 02/25/2020 ADAMA KENTIA L DRAFTING LAYOUT WORKER Ot E000.8 OTHER EXTERNAL CAUSE STATUS 02/25/2020 JIMMY KENT DRAFTING LAYOUT WORKER Ot E849.4 ACCID IN RECREATION AREA 02/25/2020 JIMMY KENT DRAFTING LAYOUT WORKER Ot E888.9 FALL NOS 02/25/2020 [place] KRISHAN, PETRA Raymond Ot 724. 5 BACKACHE NOS [facility] CHE[facility] NOS 02/25/2020 [place] PETRA NICKERSON Ot 724. 1 PAIN IN THORACIC SPINE 02/25/2020 [place] PETRA NICKERSON Ot 786. 50 CHEST PAIN NOS 02/25/2020 RUDOLPH KENT DO Ot 414.00 CORON ATHEROSCLER NOS TYPE VESSEL, NATIV 02/25/2020 RUDOLPH KENT DO Ot 786.50 CHEST PAIN NOS 02/25/2020 [place] RUDOLPH VILLALPANDO Ot I25.10 ATHSCL HEART DISEASE OF [place] CORONARY 02/25/2020 RUDOLPH KENT DO Ot R07.9 CHEST PAIN, UNSPECIFIED 02/25/2020 [facility] R10.9 UNSPECIFIED ABDOMINAL PAIN 02/25/2020 [facility] Ot Z01.818 ENCOUNTER FOR OTHER PREPROCEDURAL EXAMIN 02/25/2020 [facility] Ot 553.20 VENTRAL HERNIA NOS 02/25/2020 [facility] Ot V81.5 SCREEN FOR NEPHROPATHY 02/25/2020 LUKASZ CROWLEY APRN Ot F17.210 NICOTINE DEPENDENCE, CIGARETTES, UNCOMPL 02/25/2020 LUKASZ CROWLEY APRN Ot J44.9 CHRONIC OBSTRUCTIVE PULMONARY DISEASE, U 02/25/2020 LUKASZ CROWLEY APRN Ot R06.00 DYSPNEA, UNSPECIFIED 02/25/2020 [facility] CRISTINA, FRANDY Aviles Ot E11.9 TYPE 2 DIABETES MELLITUS WITHOUT COMPLIC 02/25/2020 [facility] PA, FRANDY K Ot E78.2 MIXED HYPERLIPIDEMIA 02/25/2020 [facility], FRANDY K Ot I10 ESSENTIAL (PRIMARY) HYPERTENSION 02/25/2020 [facility], FRANDY K Ot I25.10 ATHSCL HEART DISEASE OF [place] CORONARY 02/25/2020 [facility] CRISTINA, FRANDY Aviles Ot E11.9 TYPE 2 DIABETES MELLITUS WITHOUT COMPLIC 02/25/2020 [facility] CRIST[facility], FRANDY Aviles Ot E78.2 MIXED HYPERLIPIDEMIA 02/25/2020 [facility] CRIST[facility], FRANDY K Ot I10 ESSENTIAL (PRIMARY) HYPERTENSION 02/25/2020 [facility] CRIST[facility], FRANDY K Ot I25.10 ATHSCL HEART DISEASE OF [place] CORONARY 02/25/2020 LUKASZ CROWLEY APRN Ot F17.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, UNSPECIFIED, UNCOMP 02/25/2020 LUKASZ CROWLEY APRN Ot J44.9 CHRONIC OBSTRUCTIVE PULMONARY DISEASE, U 02/25/2020 RUDOLPH KENT DO Ot M94.8X6 OTHER SPECIFIED DISORDERS OF [place], 02/25/2020 RUDOLPH KENT DO Ot S83.242A OTH TEAR OF MEDIAL MENISCUS, CURRENT INJ 02/25/2020 RUDOLPH KENT DO Ot S83.282A OTH TEAR OF LAT MENSC, CURRENT INJURY, L 02/25/2020 RUDOLPH KENT DO Ot X58.XXXA EXPOSURE TO OTHER SPECIFIED FACTORS, INI 02/25/2020 RUDOLPH KENT DO Ot Y99.8 OTHER EXTERNAL CAUSE STATUS 02/25/2020 RUDOLPH KENT DO Ot Z12.31 ENCNTR SCREEN MAMMOGRAM FOR MALIGNANT NE 02/25/2020 RUDOLPH KENT DO Ot M40.209 UNSPECIFIED KYPHOSIS, SITE UNSPECIFIED 02/25/2020 YOLI VILLALPANDO, RUDOLPH Raymond Ot M85.852 OT DISRD OF BONE DENSITY AND STRUCTURE, 02/25/2020 YOLI VILLALPANDO, RUDOLPH Raymond Ot Z78.0 ASYMPTOMATIC MENOPAUSAL STATE 02/25/2020 EARNESTINE ALEXANDRE, RAY Davis Ot L98 .9 DISORDER OF THE SKIN AND SUBCUTANEOUS TI 02/25/2020 YOLI VILLALPANDO, RUDOLPH Raymond Ot M77.32 CALCANEAL SPUR, LEFT FOOT 02/25/2020 YOLI VILLALPANDO, RUDOLPH Raymond Ot S79.912A UNSPECIFIED INJURY OF LEFT HIP, INITIAL 02/25/2020 YOLI VILLALPANDO, RUDOLPH Raymond Ot W19.XXXA UNSPECIFIED FALL, INITIAL ENCOUNTER 02/25/2020 RUDOLPH KENT DO, Ot F09 UNSP MENTAL DISORDER DUE TO KNOWN PHYSIO 02/25/2020 YOLI VILLALPANDO, RUDOLPH Raymond Ot G43.909 MIGRAINE, UNSP, NOT INTRACTABLE, WITHOUT 02/25/2020 KENT , RUDOLPH Raymond Ot W19.XXXA UNSPECIFIED FALL, INITIAL ENCOUNTER 02/25/2020 RUDOLPH KENT DO, Ot M25.78 OSTEOPHYTE, VERTEBRAE 02/25/2020 YOLI VILLALPANDO, RUDOLPH Raymond Ot M43.16 SPONDYLOLISTHESIS, LUMBAR REGION 02/25/2020 YOLI VILLALPANDO, RUDOLPH Raymond Ot M46.86 OTHER SPECIFIED INFLAMMATORY SPONDYLOPAT 02/25/2020 YOLI VILLALPANDO, RUDOLPH Raymond Ot M47.27 OTHER SPONDYLOSIS WITH RADICULOPATHY, CATHLEEN 02/25/2020 YOLI VILLALPANDO, RUDOLPH Raymond Ot M48.061 SPINAL STENOSIS, LUMBAR REGION WITHOUT N 02/25/2020 RUDOLPH KENT DO, Ot M51.16 INTERVERTEBRAL DISC DISORDERS W RADICULO 02/25/2020 YOLI VILLALPANDO, RUDOLPH Raymond Ot M99.73 CONN TISS AND DISC STENOS OF INTVRT FORA 02/25/2020 YOLI VILLALPANDO, RUDOLPH Raymond Ot S99.912A UNSPECIFIED INJURY OF LEFT ANKLE, INITIA 02/25/2020 LIVAN ALEXANDRE, JUAN Raymond Ot E11. 51 TYPE 2 DIABETES W DIABETIC PERIPHERAL AN 02/25/2020 JUAN LICONA MD Ot E78. 2 MIXED HYPERLIPIDEMIA 02/25/2020 JUAN LICONA MD Ot R06. 09 OTHER FORMS OF DYSPNEA 02/25/2020 LIVAN ALEXANDRE, JUAN Raymond Ot R07. 89 OTHER CHEST PAIN 02/25/2020 LIVAN ALEXANDRE, JUAN Raymond Ot E11. 51 TYPE 2 DIABETES W DIABETIC PERIPHERAL AN 02/25/2020 LIVAN ALEXANDRE, JUAN Raymond Ot E78. 2 MIXED HYPERLIPIDEMIA 02/25/2020 LIVAN ALEXANDRE, JUAN Raymond Ot R06. 09 OTHER FORMS OF DYSPNEA 02/25/2020 LIVAN ALEXANDRE, JUAN Raymond Ot R07. 89 OTHER CHEST PAIN 02/25/2020 CARLINE, LUKASZ E PRINTMAKER Ot F12.10 CANNABIS ABUSE, UNCOMPLICATED 02/25/2020 CARLINE, LUKASZ E PRINTMAKER Ot F17.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, UNSPECIFIED, UNCOMP 02/25/2020 CARLINE, LUKASZ E PRINTMAKER Ot G47.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 02/25/2020 CARLINE, LUKASZ E PRINTMAKER Ot J30.9 ALLERGIC RHINITIS, UNSPECIFIED 02/25/2020 CARLINE, LUKASZ E PRINTMAKER Ot J42 UNSPECIFIED CHRONIC BRONCHITIS 02/25/2020 CARLINE, LUKASZ E PRINTMAKER Ot J44.9 CHRONIC OBSTRUCTIVE PULMONARY DISEASE, U 02/25/2020 CARLINE, LUKASZ E PRINTMAKER Ot Z99.81 DEPENDENCE ON SUPPLEMENTAL OXYGEN 02/25/2020 CARLINE, LUKASZ E PRINTMAKER Ot F12.10 CANNABIS ABUSE, UNCOMPLICATED 02/25/2020 CARLINE, LUKASZ E PRINTMAKER Ot F17.210 NICOTINE DEPENDENCE, CIGARETTES, UNCOMPL 02/25/2020 CARLINE, LUKASZ E PRINTMAKER Ot G47.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 02/25/2020 CARLINE, LUKASZ E PRINTMAKER Ot J18.1 LOBAR PNEUMONIA, UNSPECIFIED ORGANISM 02/25/2020 CARLINE, LUKASZ E PRINTMAKER Ot J30.9 ALLERGIC RHINITIS, UNSPECIFIED 02/25/2020 CARLINE, LUKASZ E PRINTMAKER Ot J44.9 CHRONIC OBSTRUCTIVE PULMONARY DISEASE, U 02/25/2020 CARLINE, LUKASZ E PRINTMAKER Ot Z12.2 ENCNTR SCREEN FOR MALIGNANT NEOPLASM OF 02/25/2020 CARLINE, LUKASZ E PRINTMAKER Ot Z99.81 DEPENDENCE ON SUPPLEMENTAL OXYGEN 02/25/2020 RUDOLPH KENT DO Ot Z45.2 ENCOUNTER FOR ADJUSTMENT AND MANAGEMENT 02/25/2020 SARAH ROBERTSON DRAFTING LAYOUT WORKER Ot 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, CERVICOTHORACIC REGIO 02/25/2020 SARAH ROBERTSON Ot M48.02 SPINAL STENOSIS, CERVICAL REGION 02/25/2020 SARAH ROBERTSON Ot M50.11 CERV DISC DISORDER WITH RADICULOPATHY, H 02/25/2020 SARAH ROBERTSON Ot M50.121 CERVICAL DISC DISORDER AT C4-C5 LEVEL [place] 02/25/2020 JUAN LICONA MD Ot 272. 4 HYPERLIPIDEMIA NEC/NOS 02/25/2020 JUAN LICONA MD Ot 397. 0 TRICUSPID VALVE DISEASE 02/25/2020 JUAN LICONA MD Ot 424. 0 MITRAL VALVE DISORDER 02/25/2020 JUAN LICONA MD Ot 786. 09 RESPIRATORY ABNORM NEC 02/25/2020 JUAN LICONA MD Ot 786. 50 CHEST PAIN NOS 02/25/2020 JUAN LICONA MD Ot V46. 2 SUPPLEMENTAL OXYGEN 02/25/2020 JUAN LICONA MD Ot 272. 4 HYPERLIPIDEMIA NEC/NOS 02/25/2020 JUAN LICONA MD Ot 786. 09 RESPIRATORY ABNORM NEC 02/25/2020 JUAN LICONA MD Ot 786. 50 CHEST PAIN NOS 02/25/2020 JUAN LICONA MD Ot V46. 2 SUPPLEMENTAL OXYGEN 02/25/2020 RUDOLPH KENT DO Ot V76.12 OTH SCREEN MAMMO-MALIGN NEOPLASM OF [place] 02/25/2020 QING TAO DO Ot 305. 1 TOBACCO USE DISORDER 02/25/2020 QING TAO DO Ot 496 CHR AIRWAY OBSTRUCT NEC 02/25/2020 QING TAO DO Ot 786. 09 RESPIRATORY ABNORM NEC 02/25/2020 KASIE DPM, ANDREA Q Ot 355. 5 TARSAL TUNNEL SYNDROME 02/25/2020 CHA VERDUGO DO Ot V72.84 EXAM PRE-OPERATIVE NOS 02/25/2020 CHA VERDUGO DO Ot 530.10 ESOPHAGITIS NOS 02/25/2020 CHA VERDUGO DO Ot 553.3 DIAPHRAGMATIC HERNIA 02/25/2020 CHA VERDUGO DO Ot 787.20 DYSPHAGIA, UNSPECIFIED 02/25/2020 JIMMY KENT DRAFTING LAYOUT WORKER Ot 486 PNEUMONIA, ORGANISM NOS 02/25/2020 JIMMY KENT DRAFTING LAYOUT WORKER Ot 789.00 ABDOMINAL PAIN, UNSPECIFIED SITE 02/25/2020 JIMMY KENT DRAFTING LAYOUT WORKER Ot 959.6 HIP THIGH INJURY NOS 02/25/2020 JIMMY KENT DRAFTING LAYOUT WORKER Ot E000.8 OTHER EXTERNAL CAUSE STATUS 02/25/2020 JIMMY KENT DRAFTING LAYOUT WORKER Ot E849.4 ACCID IN RECREATION AREA 02/25/2020 JIMMY KENT DRAFTING LAYOUT WORKER Ot E888.9 FALL NOS 02/25/2020 [facility], PETRA Raymond Ot 724. 5 BACKACHE NOS 02/25/2020 [facility], PETRA Raymond Ot 786. 50 CHEST PAIN NOS 02/25/2020 [facility], PETRA Raymond Ot 724. 1 PAIN IN THORACIC SPINE 02/25/2020 [facility], PETRA Raymond Ot 786. 50 CHEST PAIN NOS 02/25/2020 KENT DO, RUDOLPH Raymond Ot 414.00 CORON ATHEROSCLER NOS TYPE VESSEL, NATIV 02/25/2020 YOLI VILLALPANDO, RUDOLPH Raymond Ot 786.50 CHEST PAIN NOS 02/25/2020 KENT DO, RUDOLPH Raymond Ot I25.10 ATHSCL HEART DISEASE OF [place] CORONARY 02/25/2020 RUDOLPH KENT DO Ot R07.9 CHEST PAIN, UNSPECIFIED 02/25/2020 [facility] CHA VILLALPANDO Ot R10.9 UNSPECIFIED ABDOMINAL PAIN 02/25/2020 [facility] CHA VILLALPANDO Ot Z01.818 ENCOUNTER FOR OTHER PREPROCEDURAL EXAMIN 02/25/2020 CHA VERDUGO DO Ot 553.20 VENTRAL HERNIA NOS 02/25/2020 [facility] CHA VILLALPANDO Ot V81.5 SCREEN FOR NEPHROPATHY 02/25/2020 LUKASZ CROWLEY APRN Ot F17.210 NICOTINE DEPENDENCE, CIGARETTES, UNCOMPL 02/25/2020 LUKASZ CROWLEY APRN Ot J44.9 CHRONIC OBSTRUCTIVE PULMONARY DISEASE, U 02/25/2020 LUKASZ CROWLEY APRN Ot R06.00 DYSPNEA, UNSPECIFIED 02/25/2020 FRANDY DE LA ROSA Ot E11.9 TYPE 2 DIABETES MELLITUS WITHOUT COMPLIC 02/25/2020 FRANDY DE LA ROSA Ot E78.2 MIXED HYPERLIPIDEMIA 02/25/2020 FRANDY DE LA ROSA Ot I10 ESSENTIAL (PRIMARY) HYPERTENSION 02/25/2020 FRANDY DE LA ROSA Ot I25.10 ATHSCL HEART DISEASE OF [place] CORONARY 02/25/2020 FRANDY DE LA ROSA Ot E11.9 TYPE 2 DIABETES MELLITUS WITHOUT COMPLIC 02/25/2020 FRANDY DE LA ROSA Ot E78.2 MIXED HYPERLIPIDEMIA 02/25/2020 FRANDY DE LA ROSA Ot I10 ESSENTIAL (PRIMARY) HYPERTENSION 02/25/2020 FRANDY DE LA ROSA Ot I25.10 ATHSCL HEART DISEASE OF [place] CORONARY 02/25/2020 LUKASZ CROWLEY APRN Ot F17.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, UNSPECIFIED, UNCOMP 02/25/2020 LUKASZ CROWLEY APRN Ot J44.9 CHRONIC OBSTRUCTIVE PULMONARY DISEASE, U 02/25/2020 RUDOLPH KENT DO, Ot M94.8X6 OTHER SPECIFIED DISORDERS OF [place], 02/25/2020 RUDOLPH KENT DO, Ot S83.242A OTH TEAR OF MEDIAL MENISCUS, CURRENT INJ 02/25/2020 RUDOLPH KENT DO, Ot S83.282A OTH TEAR OF LAT MENSC, CURRENT INJURY, L 02/25/2020 RUDOLPH KENT DO, Ot X58.XXXA EXPOSURE TO OTHER SPECIFIED FACTORS, INI 02/25/2020 RUDOLPH KENT DO, Ot Y99.8 OTHER EXTERNAL CAUSE STATUS 02/25/2020 RUDOLPH KENT DO, Ot Z12.31 ENCNTR SCREEN MAMMOGRAM FOR MALIGNANT NE 02/25/2020 RUDOLPH KENT DO, Ot M40.209 UNSPECIFIED KYPHOSIS, SITE UNSPECIFIED 02/25/2020 RUDOLPH KENT DO, Ot M85.852 OT DISRD OF BONE DENSITY AND STRUCTURE, 02/25/2020 RUDOLPH KENT DO, Ot Z78.0 ASYMPTOMATIC MENOPAUSAL STATE 02/25/2020 EARNESTINE ALEXANDRE, RAY Davis Ot L98 .9 DISORDER OF THE SKIN AND SUBCUTANEOUS TI 02/25/2020 RUDOLPH KENT DO, Ot M77.32 CALCANEAL SPUR, LEFT FOOT 02/25/2020 RUDOLPH KENT DO, Ot S79.912A UNSPECIFIED INJURY OF LEFT HIP, INITIAL 02/25/2020 RUDOLPH KENT DO, Ot W19.XXXA UNSPECIFIED FALL, INITIAL ENCOUNTER 02/25/2020 KENT DO, RUDOLPH Raymond Ot F09 UNSP MENTAL DISORDER DUE TO KNOWN PHYSIO 02/25/2020 KENT DO, RUDOLPH Raymond Ot G43.909 MIGRAINE, UNSP, NOT INTRACTABLE, WITHOUT 02/25/2020 KENT DO, RUDOLPH Raymond Ot W19.XXXA UNSPECIFIED FALL, INITIAL ENCOUNTER 02/25/2020 KENT DO, RUDOLPH Raymond Ot M25.78 OSTEOPHYTE, VERTEBRAE 02/25/2020 KENT DO, RUDOLPH Raymond Ot M43.16 SPONDYLOLISTHESIS, LUMBAR REGION 02/25/2020 KENT DO, RUDOLPH Raymond Ot M46.86 OTHER SPECIFIED INFLAMMATORY SPONDYLOPAT 02/25/2020 KENT DO, RUDOLPH Raymond Ot M47.27 OTHER SPONDYLOSIS WITH RADICULOPATHY, CATHLEEN 02/25/2020 KENT DO, RUDOLPH Raymond Ot M48.061 SPINAL STENOSIS, LUMBAR REGION WITHOUT N 02/25/2020 KENT DO, RUDOLPH Raymond Ot M51.16 INTERVERTEBRAL DISC DISORDERS W RADICULO 02/25/2020 KENT DO, RUDOLPH Raymond Ot M99.73 CONN TISS AND DISC STENOS OF INTVRT FORA 02/25/2020 KENT DO, RUDOLPH Raymond Ot S99.912A UNSPECIFIED INJURY OF LEFT ANKLE, INITIA 02/25/2020 JUAN LICONA MD Ot E11. 51 TYPE 2 DIABETES W DIABETIC PERIPHERAL AN 02/25/2020 JUAN LICONA MD Ot E78. 2 MIXED HYPERLIPIDEMIA 02/25/2020 JUAN LICONA MD Ot R06. 09 OTHER FORMS OF DYSPNEA 02/25/2020 JUAN LICONA MD Ot R07. 89 OTHER CHEST PAIN 02/25/2020 JUAN LICONA MD Ot E11. 51 TYPE 2 DIABETES W DIABETIC PERIPHERAL AN 02/25/2020 JUAN LICONA MD Ot E78. 2 MIXED HYPERLIPIDEMIA 02/25/2020 JUAN LICONA MD Ot R06. 09 OTHER FORMS OF DYSPNEA 02/25/2020 JUAN LICONA MD Ot R07. 89 OTHER CHEST PAIN 02/25/2020 LUKASZ CROWLEY APRN Ot F12.10 CANNABIS ABUSE, UNCOMPLICATED 02/25/2020 LUKASZ CROWLEY APRN Ot F17.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, UNSPECIFIED, UNCOMP 02/25/2020 CARLINE, LUKASZ E PRINTMAKER Ot G47.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 02/25/2020 CARMELINA CROWLEYINE E PRINTMAKER Ot J30.9 ALLERGIC RHINITIS, UNSPECIFIED 02/25/2020 LUKASZ CROWLEY E PRINTMAKER Ot J42 UNSPECIFIED CHRONIC BRONCHITIS 02/25/2020 CARLINE, LUKASZ E PRINTMAKER Ot J44.9 CHRONIC OBSTRUCTIVE PULMONARY DISEASE, U 02/25/2020 CARMELINA CROWLEYINE E PRINTMAKER Ot Z99.81 DEPENDENCE ON SUPPLEMENTAL OXYGEN 02/25/2020 CARLINE LUKASZ E PRINTMAKER Ot F12.10 CANNABIS ABUSE, UNCOMPLICATED 02/25/2020 CARLINE, LUKASZ E PRINTMAKER Ot F17.210 NICOTINE DEPENDENCE, CIGARETTES, UNCOMPL 02/25/2020 CARLINECARMELINA COXINE E PRINTMAKER Ot G47.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 02/25/2020 CARMELINA CROWLEYINE E PRINTMAKER Ot J18.1 LOBAR PNEUMONIA, UNSPECIFIED ORGANISM 02/25/2020 LUKASZ CROWLEY E PRINTMAKER Ot J30.9 ALLERGIC RHINITIS, UNSPECIFIED 02/25/2020 CARMELINA CROWLEYINE E PRINTMAKER Ot J44.9 CHRONIC OBSTRUCTIVE PULMONARY DISEASE, U 02/25/2020 CARLINELUKASZ COX E PRINTMAKER Ot Z12.2 ENCNTR SCREEN FOR MALIGNANT NEOPLASM OF 02/25/2020 LUKASZ CROWLEY E PRINTMAKER Ot Z99.81 DEPENDENCE ON SUPPLEMENTAL OXYGEN 02/25/2020 RUDOLPH KENT DO Ot Z45.2 ENCOUNTER FOR ADJUSTMENT AND MANAGEMENT 02/25/2020 SARAH ROBERTSON Ot 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, CERVICOTHORACIC REGIO 02/25/2020 SARAH ROBERTSON Ot M48.02 SPINAL STENOSIS, CERVICAL REGION 02/25/2020 SARAH ROBERTSON Ot M50.11 CERV DISC DISORDER WITH RADICULOPATHY, H 02/25/2020 SARAH ROBERTSON Ot M50.121 CERVICAL DISC DISORDER AT C4-C5 LEVEL [place] 02/25/2020 IBETH ALEXANDRE, TERRA Horn Ot E11.40 TYPE 2 DIABETES MELLITUS WITH DIABETIC N 02/25/2020 IBETH ALEXANDRE, TERRA Horn Ot E78.00 PURE HYPERCHOLESTEROLEMIA, UNSPECIFIED 02/25/2020 TERRA CRISTINA MD Ot E83.42 HYPOMAGNESEMIA 02/25/2020 IBETH ALEXANDRE, TERAR Horn Ot E87.5 HYPERKALEMIA 02/25/2020 TERRA CRISTINA MD Ot F32.9 MAJOR DEPRESSIVE DISORDER, SINGLE EPISOD 02/25/2020 IBETH ALEXANDRE, TERRA Horn Ot F41.9 ANXIETY DISORDER, UNSPECIFIED 02/25/2020 TERRA CRISTINA MD Ot I11.0 HYPERTENSIVE HEART DISEASE WITH HEART FA 02/25/2020 IBETH ALEXANDRE, TERRA Horn Ot I50.9 HEART FAILURE, UNSPECIFIED 02/25/2020 IBETH ALEXANDRE, TERRA Horn Ot I95.9 HYPOTENSION, UNSPECIFIED 02/25/2020 IBETH ALEXANDRE, TERRA Horn Ot J44.9 CHRONIC OBSTRUCTIVE PULMONARY DISEASE, U 02/25/2020 TERRA CRISTINA MD, Ot K56.609 UNSP INTESTNL OBST, UNSP TO PARTIAL V 02/25/2020 TERRA CRISTINA MD Ot M19.91 PRIMARY OSTEOARTHRITIS, UNSPECIFIED SITE 02/25/2020 TERRA CRISTINA MD Ot M54.9 DORSALGIA, UNSPECIFIED 02/25/2020 TERRA CRISTINA MD Ot M79.7 FIBROMYALGIA 02/25/2020 TERRA CRISTINA MD Ot N12 TUBULO-INTERSTITIAL NEPHRITIS, NOT SPCF 02/25/2020 TERRA CRISTINA MD Ot N17.9 ACUTE KIDNEY FAILURE, UNSPECIFIED 02/25/2020 TERRA CRSITINA MD Ot R14.0 ABDOMINAL DISTENSION (GASEOUS) 02/25/2020 TERRA CRISTINA MD Ot R41.82 ALTERED MENTAL STATUS, UNSPECIFIED 02/25/2020 TERRA CRISTINA MD Ot Z66 DO NOT RESUSCITATE 02/25/2020 TERRA CRISTINA MD Ot Z79.4 ROLE PLAYER (CURRENT) USE OF INSULIN 02/25/2020 TERRA CRISTINA MD Ot Z79.82 ROLE PLAYER (CURRENT) USE OF ASPIRIN 02/25/2020 TERRA CRISTINA MD Ot Z79.899 OTHER JAIL (CURRENT) DRUG THERAPY 02/25/2020 TERRA CRISTINA MD, Ot Z86.14 PERSONAL HISTORY OF METHICILLIN RESIS ST 02/25/2020 TERRA CRISTINA MD, Ot Z95.5 PRESENCE OF CORONARY ANGIOPLASTY IMPLANT 02/25/2020 TERRA CRISTINA MD, Ot Z99.2 DEPENDENCE ON RENAL DIALYSIS 02/26/2020 PETRA MCMANUS MD Ot E11.9 TYPE 2 DIABETES MELLITUS WITHOUT COMPLIC 02/26/2020 PETRA MCMANUS MD, Ot E78.00 PURE HYPERCHOLESTEROLEMIA, UNSPECIFIED 02/26/2020 PETRA MCMANUS MD, Ot E87.5 HYPERKALEMIA 02/26/2020 PETRA MCMANUS MD, Ot F32.9 MAJOR DEPRESSIVE DISORDER, SINGLE EPISOD 02/26/2020 PETRA MCMANUS MD, Ot F41.9 ANXIETY DISORDER, UNSPECIFIED 02/26/2020 PETRA MCMANUS MD Ot I11.0 HYPERTENSIVE HEART DISEASE WITH HEART FA 02/26/2020 PETRA MCMANUS MD, Ot I50.9 HEART FAILURE, UNSPECIFIED 02/26/2020 PETRA MCMANUS MD, Ot J18.9 PNEUMONIA, UNSPECIFIED ORGANISM 02/26/2020 PETRA MCMANUS MD, Ot J44.0 CHR OBSTRUCTIVE PULMON DISEASE WITH (ACU 02/26/2020 PETRA MCMANUS MD, Ot M25.552 PAIN IN LEFT HIP 02/26/2020 PETRA MCMANUS MD, Ot N17.9 ACUTE KIDNEY FAILURE, UNSPECIFIED 02/26/2020 PETRA MCMANUS MD Ot W19.XXXA UNSPECIFIED FALL, INITIAL ENCOUNTER 02/26/2020 PETRA MCMANUS MD, Ot Y92.[address] [facility] [address] IN [facility] NON-[facility] (PRIVATE 02/26/2020 PETRA MCMANUS MD, Ot Z77.22 CNTCT W AND EXPSR TO ENVIRON TOBACCO SMO 02/26/2020 PETRA MCMANUS MD, Ot Z79.4 ROLE PLAYER (CURRENT) USE OF INSULIN 02/26/2020 PETRA MCMANUS MD, Ot Z79.51 ROLE PLAYER (CURRENT) USE OF INHALED STERO 02/26/2020 PETRA MCMANUS MD, Ot Z79.82 ROLE PLAYER (CURRENT) USE OF ASPIRIN 02/26/2020 PETRA MCMANUS MD Ot Z80.0 FAMILY HISTORY OF MALIGNANT NEOPLASM OF 02/26/2020 PETRA MCMANUS MD, Ot Z88.8 ALLERGY STATUS TO OTH DRUG/MEDS/BIOL SUB 02/26/2020 PETRA MCMANUS MD, Ot Z91.041 RADIOGRAPHIC DYE ALLERGY STATUS 02/26/2020 PETRA MCMANUS MD, Ot Z95.5 PRESENCE OF CORONARY ANGIOPLASTY IMPLANT 03/03/2020 IBETH ALEXANDRE, TERRA Horn Ot E11.40 TYPE 2 DIABETES MELLITUS WITH DIABETIC N 03/03/2020 TERRA CRISTINA MD Ot E78.00 PURE HYPERCHOLESTEROLEMIA, UNSPECIFIED 03/03/2020 TERRA CRISTINA MD Ot E83.42 HYPOMAGNESEMIA 03/03/2020 TERRA CRISTINA MD Ot E87.5 HYPERKALEMIA 03/03/2020 TERRA CRISTINA MD Ot F32.9 MAJOR DEPRESSIVE DISORDER, SINGLE EPISOD 03/03/2020 TERRA CRISTINA MD Ot F41.9 ANXIETY DISORDER, UNSPECIFIED 03/03/2020 TERRA CRISTINA MD Ot I11.0 HYPERTENSIVE HEART DISEASE WITH HEART FA 03/03/2020 TERRA CRISTINA MD Ot I50.9 HEART FAILURE, UNSPECIFIED 03/03/2020 TERRA CRISTINA MD Ot I95.9 HYPOTENSION, UNSPECIFIED 03/03/2020 TERRA CRISTINA MD Ot J44.9 CHRONIC OBSTRUCTIVE PULMONARY DISEASE, U 03/03/2020 TERRA CRISTINA MD Ot K56.609 UNSP INTESTNL OBST, UNSP TO PARTIAL V 03/03/2020 TERRA CRISTINA MD Ot M19.91 PRIMARY OSTEOARTHRITIS, UNSPECIFIED SITE 03/03/2020 TERRA CRISTINA MD Ot M54.9 DORSALGIA, UNSPECIFIED 03/03/2020 TERRA CRISTINA MD Ot M79.7 FIBROMYALGIA 03/03/2020 TERRA CRISTINA MD Ot N12 TUBULO-INTERSTITIAL NEPHRITIS, NOT SPCF 03/03/2020 TERRA CRISTINA MD Ot N17.9 ACUTE KIDNEY FAILURE, UNSPECIFIED 03/03/2020 TERRA CRISTINA MD, Ot R14.0 ABDOMINAL DISTENSION (GASEOUS) 03/03/2020 TERRA CRISTINA MD, Ot R41.82 ALTERED MENTAL STATUS, UNSPECIFIED 03/03/2020 TERRA CRISTINA MD, Ot Z66 DO NOT RESUSCITATE 03/03/2020 TERRA CRISTINA MD, Ot Z79.4 ROLE PLAYER (CURRENT) USE OF INSULIN 03/03/2020 TERRA CRISTINA MD, Ot Z79.82 ROLE PLAYER (CURRENT) USE OF ASPIRIN 03/03/2020 TERRA CRISTINA MD, Ot Z79.899 OTHER ROLE PLAYER (CURRENT) DRUG THERAPY 03/03/2020 TERRA CRISTINA MD, Ot Z86.14 PERSONAL HISTORY OF METHICILLIN RESIS ST 03/03/2020 TERRA CRISTINA MD, Ot Z95.5 PRESENCE OF CORONARY ANGIOPLASTY IMPLANT 03/03/2020 TERRA CRISTINA MD, Ot Z99.2 DEPENDENCE ON RENAL DIALYSIS Procedures Code Description Performed By Per formed On [id number] SISTANCE WITH RESPIRATORY VENTILATION, 12/20/[id number] DAWKINS OF STOMACH WITH DRAINAGE DEVICE 01/17/2020 [id number] IN SERTION OF ENDOTRACHEAL AIRWAY INTO TR 02/03/2020 [id number] RE SPIRATORY VENTILATION, LESS THAN 24 CO 02/03/2020 [id number] RE SPIRATORY VENTILATION, 24- 96 CONSECUTI 02/03/2020 Results Test Result Range Sputum Gram stain - 11/01/16 13:15 GRAM STAIN SPUTUM YEAST CELLS OBSERVED NRG Bacterial sputum culture - 11/01/16 13:1 5 FREE TEXT EXTERNAL PLUS NORMAL DELGADO NR G QUANTITY OF GROWTH Moderate Growth NRG Bacterial sputum culture [id number] NRG Methicillin resistant Staphylococcus aur eus (MRSA) [...] Staphylococcus aur eus (MRSA) screening culture - 10/08/18 11:48 Methicillin resistant Staphylococcus aureus (MRSA) scr [...] QUANTITY OF GROWTH Rare NRG Fungus culture [id number] NRG Mycobacterium species detection by organ ism [...] casts detection in urine sediment by light ebonie roscopy 5-10 NRG Urine drug screening test [...] Staphylococcus aureus (MRSA) scr eening culture NEG [facility] Influenza virus A and B antigen detectio n - 12/19/19 18:22 FLU RESULT NEGATIVE FOR INFLUENZA A AND B ANTIGENS BY IA [facility] Complete blood count (CBC) with automate d [...] in platelet poor plasma bycoagulation assay - 12/19/19 18:26 Activated partial thromboplastin time (a PTT) [...] 0.0-0.1 Whole blood basic metabolic panel - 08/01 02:46 Serum or plasma sodium measurement (moles/volume) [...] 0.00-0.50 Manual absolute plasma cell count - 0305/31 08:52 Blood monocytes/100 leukocytes 7 % NRG [...] casts detection in urine sediment by light ebonie roscopy 0-2 NRG Bacterial blood culture - [...] A AND B ANTIGENS BY IA NRG Capillary blood glucose measurement by g [...] - 01/22/20 08:40 Bacterial blood culture NG NR Sputum Gram stain - 01/22/20 11:17 Sputum [...] plasma triglyceride measurement (mass/volume) 148 mg/dL <150 Bacterial blood culture - 02/03/20 13:10 Bacterial blood culture NG NRG Arterial blood gas measurement - 0 13:13 [...] G Measurement of body temperature 36.8 NRG Bacterial blood culture - 02/03/20 13:25 Bacterial blood culture NG NRG Complete urinalysis [...] casts detection in urine sediment by light ebonie roscopy 0-2 NRG Urine drug screening test [...] TIVE Urine propoxyphene detection NEGATIVE N EGATIVE Bacterial urine culture - 02/03/20 13:30 Bacterial urine culture NG NRG Capillary blood glucose measurement [...] lactic acid measurement (moles/volume) 0.52 mmol/L 0.50-2.00 Sputum Gram stain - 02/03/20 14:46 Sputum Gram stain No bacteria seen NRG Bacterial sputum culture - 02/03/20 14:4 6 QUANTITY OF GROWTH Moderate Growth NRG Bacterial sputum culture [id number] NRG SUSCEPTIBILITY SUSCEPTIIBLITY REPORTED 02/05 11:20 NRG MRSA SCREEN (NEW NOMENCLATURE:KLEBSIELLA AEROGENES ) NRG RAPID ID PRELIM RAPID ID TEST AT [facility] 02/04 9:45 NRG ID CONFIRMATION RML CONFIRMED ID 02/04 13:15 NRG Dirithromycin susceptibility test by dis k diffusion - 02/03/20 14:46 Gentamicin susceptibility test by minimum inhibitory c oncentration <= NRG Trimethoprim/sulfamethoxazole susceptibi lity test by minimum inhibitoryconcentration <= NRG Levofloxacin susceptibility test by minimum inhibitory concentration <= NRG Ampicillin susceptibility test by minimum inhibitory c oncentration > NRG Cefazolin susceptibility test by minimum inhibitory co ncentration > NRG Ceftriaxone susceptibility test by minimum inhibitory concentration <= NRG Piperacillin/tazobactam susceptibility t est by minimum inhibitory concentration = NRG Ciprofloxacin susceptibility test by minimum inhibitor y concentration <= NRG Meropenem susceptibility test by minimum inhibitory co ncentration <= NRG Amoxicillin and clavulanate potassium susc EBONIE > NRG Urine Legionella pneumophila antigen ass ay - 02/03/20 15:40 Urine Legionella pneumophila antigen assay Negativ e NRG Streptococcus pneumoniae antigen detecti on - 02/03/20 15:40 Streptococcus pneumoniae antigen detection Negativ e NRG Methicillin resistant Staphylococcus aur eus (MRSA) screening culture - 02/03/20 16:44 Methicillin resistant Staphylococcus aureus (MRSA) scr eening culture NEG NRG Arterial blood gas measurement - 0 16:50 Blood pCO2 52 mm[Hg] 35-45 Blood pO2 52 mm[Hg] 79-93 Arterial blood bicarbonate measurement (moles/volume) 21 mmol/L 23-27 Arterial blood base excess by calculation -5.0 mmo l/L -2.5-2.5 Arterial blood oxygen saturation measurement 45 % 94-100 * Inhaled oxygen flow rate 30% NRG Arterial blood pH measurement with patient temperature correction 7.24 7.37-7.43 Arterial blood carbon dioxide, total measurement (mole s/volume) 23.0 mmol/L 21.0-31.0 Body site RT WRIST NRG Assessment of wrist artery patency prior to arterial p uncture YES-POS NRG Setting of ventilation mode YES NR G Measurement of body temperature 36.6 NRG Capillary blood glucose measurement by g lucometer (mass/volume) - 02/03/20 17:59 Capillary blood glucose measurement by glucometer (mas s/volume) 178 mg/dL 70-110 Capillary blood glucose measurement by g lucometer (mass/volume) - 02/04/20 00:01 Capillary blood glucose measurement by glucometer (mas s/volume) 174 mg/dL 70-110 Complete blood count (CBC) with automate d white blood cell (WBC) differential - 02/04/20 02:15 Blood leukocytes automated count (number/volume) 14.9 10*3/uL 4.3-11.0 Blood erythrocytes automated count (number/volume) 3.36 10*6/uL 4.35-5.85 Venous blood hemoglobin measurement (mass/volume) 9.2 g/dL 11.5-16.0 Blood hematocrit (volume fraction) 29 % 35-52 Automated erythrocyte mean corpuscular volume 86 [ foz_us] 80-99 Automated erythrocyte mean corpuscular h emoglobin (mass per erythrocyte) 27 pg 25-34 Automated erythrocyte mean corpuscular h emoglobin concentration measurement (mass/volume) 32 g/dL 32-36 Automated erythrocyte distribution width ratio 15. 6 % 10.0- 14.5 Automated blood platelet count (count/volume) 415 10*3/uL 130-400 Automated blood platelet mean volume measurement 9.6 [foz_us] 7.4-10.4 Automated blood neutrophils/100 leukocytes 72 % 42-75 Automated blood lymphocytes/100 leukocytes 20 % 12-44 Blood monocytes/100 leukocytes 6 % 0-12 Automated blood eosinophils/100 leukocytes 2 % 0-10 Automated blood basophils/100 leukocytes 0 % 0-10 Blood neutrophils automated count (number/volume) 10.7 10*3 1.8-7.8 Blood lymphocytes automated count (number/volume) 3.0 10*3 1.0-4.0 Blood monocytes automated count (number/volume) 0. 9 10*3 0.0-1.0 Automated eosinophil count 0.3 10*3/uL 0 .0-0.3 Automated blood basophil count (count/volume) 0.0 10*3/uL 0.0-0.1 Arterial blood gas measurement - 0 02:15 Blood pCO2 37 mm[Hg] 35-45 Blood pO2 93 mm[Hg] 79-93 Arterial blood bicarbonate measurement (moles/volume) 20 mmol/L 23-27 Arterial blood base excess by calculation -5.3 mmo l/L -2.5-2.5 Arterial blood oxygen saturation measurement 96 % 94-100 * Inhaled oxygen flow rate 25% NRG Arterial blood pH measurement with patient temperature correction 7.35 7.37-7.43 Arterial blood carbon dioxide, total measurement (mole s/volume) 20.7 mmol/L 21.0-31.0 Body site RIGHT ART LINE NRG Assessment of wrist artery patency prior to arterial p uncture ART LINE NRG Setting of ventilation mode YES NR G Measurement of body temperature 36.6 NRG Comprehensive metabolic panel - 02/04/20 02:15 Serum or plasma sodium measurement (moles/volume) 139 mmol/L 135-145 Serum or plasma potassium measurement (moles/volume) 5.6 mmol/L 3.6-5.0 Serum or plasma chloride measurement (moles/volume) 112 mmol/L 98-107 Carbon dioxide 17 mmol/L 21-32 Serum or plasma anion gap determination (moles/volume) 10 mmol/L 5-14 Serum or plasma urea nitrogen measurement (mass/volume ) 34 mg/dL 7-18 Serum or plasma creatinine measurement (mass/volume) 2.05 mg/dL 0.60-1.30 Serum or plasma urea nitrogen/creatinine mass ratio 17 NRG Serum or plasma creatinine measurement w ith calculation of estimated glomerular filtration rate 24 NRG Serum or plasma glucose measurement (mass/volume) 167 mg/dL 70-105 Serum or plasma calcium measurement (mass/volume) 8.1 mg/dL 8.5-10.1 Serum or plasma total bilirubin measurement (mass/volu me) 0.2 mg/dL 0.1-1.0 Serum or plasma alkaline phosphatase manny surement (enzymatic activity/volume) 68 U/L 40-136 Serum or plasma aspartate aminotransfera se measurement (enzymatic activity/volume) 12 U/L 5-34 Serum or plasma alanine aminotransferase measurement (enzymatic activity/volume) 6 U/L 0-55 Serum or plasma protein measurement (mass/volume) 5.9 g/dL 6.4-8.2 Serum or plasma albumin measurement (mass/volume) 3.2 g/dL 3.2-4.5 CALCIUM CORRECTED 8.7 mg/dL 8.5-10.1 Serum or plasma phosphate measurement (m ass/volume) - 02/04/20 02:15 Serum or plasma phosphate measurement (mass/volume) 3.3 mg/dL 2.3-4.7 Magnesium - 02/04/20 02:15 Magnesium 1.5 mg/dL 1.6-2.4 Blood lactic acid measurement (moles/vol ume) - 02/04/20 10:50 Blood lactic acid measurement (moles/volume) 0.57 mmol/L 0.50-2.00 Capillary blood glucose measurement by g lucometer (mass/volume) - 02/04/20 11:50 Capillary blood glucose measurement by glucometer (mas s/volume) 115 mg/dL 70-110 Complete urinalysis with reflex to cultu re - 02/04/20 12:00 Urine color determination YELLOW NRG Urine clarity determination CLEAR NR G Urine pH measurement by test strip 5.5 5-9 Specific gravity of urine by test strip 1.015 1.016-1.022 Urine protein assay by test strip, semi-quantitative NEGATIVE NEGATIVE Urine glucose detection by automated test strip NE GATIVE NEGATIVE Erythrocytes detection in urine sediment by light micr oscopy NEGATIVE NEGATIVE Urine ketones detection by automated test strip TR SUREKHA NEGATIVE Urine nitrite detection by test strip [...] leukocyte count by microscopy (number/high power field) [HPF] NRG Bacteria detection in urine sediment by light microsco py NEGATIVE NRG Crystals detection in urine sediment by light microsco py NONE NRG Casts detection in urine sediment by light microscopy NONE NRG Mucus detection in urine sediment by light microscopy NEGATIVE NRG Complete urinalysis with reflex to culture NO NRG SARS-CoV-2 PCR (RML) - 02/04/20 16:48 Identification of specimen source TITLE 1 TUTOR SWAB NRG Coronavirus Ab [Units/volume] in Serum Negative Negative Capillary blood glucose measurement by g lucometer (mass/volume) - 02/04/20 17:51 Capillary blood glucose measurement by glucometer (mas s/volume) 128 mg/dL 70-110 Capillary blood glucose measurement by g lucometer (mass/volume) - 02/04/20 23:42 Capillary blood glucose measurement by glucometer (mas s/volume) 198 mg/dL 70-110 Complete blood count (CBC) with automate d white blood cell (WBC) differential - 02/05/20 02:35 Blood leukocytes automated count (number/volume) 8.0 10*3/uL 4.3-11.0 Blood erythrocytes automated count (number/volume) 3.02 10*6/uL 4.35-5.85 Venous blood hemoglobin measurement (mass/volume) 8.3 g/dL 11.5-16.0 Blood hematocrit (volume fraction) 26 % 35-52 Automated erythrocyte mean corpuscular volume 85 [ foz_us] 80-99 Automated erythrocyte mean corpuscular h emoglobin (mass per erythrocyte) 28 pg 25-34 Automated erythrocyte mean corpuscular h emoglobin concentration measurement (mass/volume) 32 g/dL 32-36 Automated erythrocyte distribution width ratio 15. 2 % 10.0- 14.5 Automated blood platelet count (count/volume) 307 10*3/uL 130-400 Automated blood platelet mean volume measurement 9.9 [foz_us] 7.4-10.4 Automated blood neutrophils/100 leukocytes 69 % 42-75 Automated blood lymphocytes/100 leukocytes 23 % 12-44 Blood monocytes/100 leukocytes 5 % 0-12 Automated blood eosinophils/100 leukocytes 3 % 0-10 Automated blood basophils/100 leukocytes 0 % 0-10 Blood neutrophils automated count (number/volume) 5.6 10*3 1.8-7.8 Blood lymphocytes automated count (number/volume) 1.8 10*3 1.0-4.0 Blood monocytes automated count (number/volume) 0. 4 10*3 0.0-1.0 Automated eosinophil count 0.2 10*3/uL 0 .0-0.3 Automated blood basophil count (count/volume) 0.0 10*3/uL 0.0-0.1 Arterial blood gas measurement - 02/04/ 0 02:35 Blood pCO2 33 mm[Hg] 35-45 Blood pO2 61 mm[Hg] 79-93 Arterial blood bicarbonate measurement (moles/volume) 20 mmol/L 23-27 Arterial blood base excess by calculation -4.2 mmo l/L -2.5-2.5 Arterial blood oxygen saturation measurement 94 % 94-100 * Inhaled oxygen flow rate 30% NRG Arterial blood pH measurement with patient temperature correction 7.40 7.37-7.43 Arterial blood carbon dioxide, total measurement (mole s/volume) 20.7 mmol/L 21.0-31.0 Body site R RAD NRG Assessment of wrist artery patency prior to arterial p uncture ART LINE NRG Setting of ventilation mode YES NR G Measurement of body temperature 37.2 NRG Whole blood basic metabolic panel - 01/11 05/01 02:35 Serum or plasma sodium measurement (moles/volume) 141 mmol/L 135-145 Serum or plasma potassium measurement (moles/volume) 4.4 mmol/L 3.6-5.0 Serum or plasma chloride measurement (moles/volume) 113 mmol/L 98-107 Carbon dioxide 18 mmol/L 21-32 Serum or plasma anion gap determination (moles/volume) 10 mmol/L 5-14 Serum or plasma urea nitrogen measurement (mass/volume ) 14 mg/dL 7-18 Serum or plasma creatinine measurement (mass/volume) 0.85 mg/dL 0.60-1.30 Serum or plasma urea nitrogen/creatinine mass ratio 16 NRG Serum or plasma creatinine measurement w ith calculation of estimated glomerular filtration rate > NRG Serum or plasma glucose measurement (mass/volume) 78 mg/dL 70-105 Serum or plasma calcium measurement (mass/volume) 8.0 mg/dL 8.5-10.1 Serum or plasma phosphate measurement (m ass/volume) - 02/05/20 02:35 Serum or plasma phosphate measurement (mass/volume) 2.8 mg/dL 2.3-4.7 Magnesium - 02/05/20 02:35 Magnesium 1.4 mg/dL 1.6-2.4 Serum or plasma triglyceride measurement (mass/volume) - 02/05/20 02:35 Serum or plasma triglyceride measurement (mass/volume) 154 mg/dL <150 Capillary blood glucose measurement by g lucometer (mass/volume) - 02/05/20 12:01 Capillary blood glucose measurement by glucometer (mas s/volume) 133 mg/dL 70-110 Capillary blood glucose measurement by g lucometer (mass/volume) - 02/05/20 18:43 Capillary blood glucose measurement by glucometer (mas s/volume) 117 mg/dL 70-110 Capillary blood glucose measurement by g lucometer (mass/volume) - 02/06/20 01:28 Capillary blood glucose measurement by glucometer (mas s/volume) 155 mg/dL 70-110 Whole blood basic metabolic panel - 01/11 05/31 03:18 Serum or plasma sodium measurement (moles/volume) 140 mmol/L 135-145 Serum or plasma potassium measurement (moles/volume) 3.4 mmol/L 3.6-5.0 Serum or plasma chloride measurement (moles/volume) 116 mmol/L 98-107 Carbon dioxide 15 mmol/L 21-32 Serum or plasma anion gap determination (moles/volume) 9 mmol/L 5-14 Serum or plasma urea nitrogen measurement (mass/volume ) 9 mg/dL 7-18 Serum or plasma creatinine measurement (mass/volume) 0.74 mg/dL 0.60-1.30 Serum or plasma urea nitrogen/creatinine mass ratio 12 NRG Serum or plasma creatinine measurement w ith calculation of estimated glomerular filtration rate > NRG Serum or plasma glucose measurement (mass/volume) 134 mg/dL 70-105 Serum or plasma calcium measurement (mass/volume) 7.1 mg/dL 8.5-10.1 Serum or plasma phosphate measurement (m ass/volume) - 02/06/20 03:18 Serum or plasma phosphate measurement (mass/volume) 2.7 mg/dL 2.3-4.7 Magnesium - 02/06/20 03:18 Magnesium 1.4 mg/dL 1.6-2.4 Complete blood count (CBC) with automate d white blood cell (WBC) differential - 02/06/20 03:18 Blood leukocytes automated count (number/volume) 6.8 10*3/uL 4.3-11.0 Blood erythrocytes automated count (number/volume) 2.87 10*6/uL 4.35-5.85 Venous blood hemoglobin measurement (mass/volume) 7.9 g/dL 11.5-16.0 Blood hematocrit (volume fraction) 24 % 35-52 Automated erythrocyte mean corpuscular volume 84 [ foz_us] 80-99 Automated erythrocyte mean corpuscular h emoglobin (mass per erythrocyte) 28 pg 25-34 Automated erythrocyte mean corpuscular h emoglobin concentration measurement (mass/volume) 33 g/dL 32-36 Automated erythrocyte distribution width ratio 15. 4 % 10.0- 14.5 Automated blood platelet count (count/volume) 247 10*3/uL 130-400 Automated blood platelet mean volume measurement 9.6 [foz_us] 7.4-10.4 Automated blood neutrophils/100 leukocytes 65 % 42-75 Automated blood lymphocytes/100 leukocytes 24 % 12-44 Blood monocytes/100 leukocytes 8 % 0-12 Automated blood eosinophils/100 leukocytes 3 % 0-10 Automated blood basophils/100 leukocytes 0 % 0-10 Blood neutrophils automated count (number/volume) 4.4 10*3 1.8-7.8 Blood lymphocytes automated count (number/volume) 1.6 10*3 1.0-4.0 Blood monocytes automated count (number/volume) 0. 5 10*3 0.0-1.0 Automated eosinophil count 0.2 10*3/uL 0 .0-0.3 Automated blood basophil count (count/volume) 0.0 10*3/uL 0.0-0.1 Arterial blood gas measurement - 0 03:39 Blood pCO2 30 mm[Hg] 35-45 Blood pO2 73 mm[Hg] 79-93 Arterial blood bicarbonate measurement (moles/volume) 19 mmol/L 23-27 Arterial blood base excess by calculation -4.7 mmo l/L -2.5-2.5 Arterial blood oxygen saturation measurement 93 % 94-100 * Inhaled oxygen flow rate 20 NRG Arterial blood pH measurement with patient temperature correction 7.42 7.37-7.43 Arterial blood carbon dioxide, total measurement (mole s/volume) 20.1 mmol/L 21.0-31.0 Body site RIGHT RADIAL NRG Assessment of wrist artery patency prior to arterial p uncture POSITIVE NRG Setting of ventilation mode NO NR G Measurement of body temperature 36.2 NRG Capillary blood glucose measurement by g lucometer (mass/volume) - 02/06/20 11:52 Capillary blood glucose measurement by glucometer (mas s/volume) 130 mg/dL 70-110 Capillary blood glucose measurement by g lucometer (mass/volume) - 02/06/20 18:04 Capillary blood glucose measurement by glucometer (mas s/volume) 122 mg/dL 70-110 Capillary blood glucose measurement by g lucometer (mass/volume) - 02/07/20 00:52 Capillary blood glucose measurement by glucometer (mas s/volume) 110 mg/dL 70-110 Arterial blood gas measurement - 0 03:13 Blood pCO2 33 mm[Hg] 35-45 Blood pO2 106 mm[Hg] 79-93 Arterial blood bicarbonate measurement (moles/volume) 22 mmol/L 23-27 Arterial blood base excess by calculation -1.5 mmo l/L -2.5-2.5 Arterial blood oxygen saturation measurement 98 % 94-100 * Inhaled oxygen flow rate 18 NRG Arterial blood pH measurement with patient temperature correction 7.44 7.37-7.43 Arterial blood carbon dioxide, total measurement (mole s/volume) 23.1 mmol/L 21.0-31.0 Body site LEFT RADIAL NRG Assessment of wrist artery patency prior to arterial p uncture POSITIVE NRG Setting of ventilation mode NO NR G Measurement of body temperature 36.4 NRG Complete blood count (CBC) with automate d white blood cell (WBC) differential - 02/07/20 03:13 Blood leukocytes automated count (number/volume) 8.1 10*3/uL 4.3-11.0 Blood erythrocytes automated count (number/volume) 2.76 10*6/uL 4.35-5.85 Venous blood hemoglobin measurement (mass/volume) 7.5 g/dL 11.5-16.0 Blood hematocrit (volume fraction) 23 % 35-52 Automated erythrocyte mean corpuscular volume 85 [ foz_us] 80-99 Automated erythrocyte mean corpuscular h emoglobin (mass per erythrocyte) 27 pg 25-34 Automated erythrocyte mean corpuscular h emoglobin concentration measurement (mass/volume) 32 g/dL 32-36 Automated erythrocyte distribution width ratio 15. 1 % 10.0- 14.5 Automated blood platelet count (count/volume) 262 10*3/uL 130-400 Automated blood platelet mean volume measurement 10.3 [foz_us] 7.4-10.4 Automated blood neutrophils/100 leukocytes 71 % 42-75 Automated blood lymphocytes/100 leukocytes 20 % 12-44 Blood monocytes/100 leukocytes 8 % 0-12 Automated blood eosinophils/100 leukocytes 1 % 0-10 Automated blood basophils/100 leukocytes 0 % 0-10 Blood neutrophils automated count (number/volume) 5.7 10*3 1.8-7.8 Blood lymphocytes automated count (number/volume) 1.6 10*3 1.0-4.0 Blood monocytes automated count (number/volume) 0. 6 10*3 0.0-1.0 Automated eosinophil count 0.1 10*3/uL 0 .0-0.3 Automated blood basophil count (count/volume) 0.0 10*3/uL 0.0-0.1 Whole blood basic metabolic panel - 01/11 07/01 03:13 Serum or plasma sodium measurement (moles/volume) 143 mmol/L 135-145 Serum or plasma potassium measurement (moles/volume) 2.9 mmol/L 3.6-5.0 Serum or plasma chloride measurement (moles/volume) 115 mmol/L 98-107 Carbon dioxide 16 mmol/L 21-32 Serum or plasma anion gap determination (moles/volume) 12 mmol/L 5-14 Serum or plasma urea nitrogen measurement (mass/volume ) 8 mg/dL 7-18 Serum or plasma creatinine measurement (mass/volume) 0.64 mg/dL 0.60-1.30 Serum or plasma urea nitrogen/creatinine mass ratio 13 NRG Serum or plasma creatinine measurement w ith calculation of estimated glomerular filtration rate > NRG Serum or plasma glucose measurement (mass/volume) 99 mg/dL 70-105 Serum or plasma calcium measurement (mass/volume) 6.7 mg/dL 8.5-10.1 Serum or plasma phosphate measurement (m ass/volume) - 02/07/20 03:13 Serum or plasma phosphate measurement (mass/volume) 2.7 mg/dL 2.3-4.7 Magnesium - 02/07/20 03:13 Magnesium 1.5 mg/dL 1.6-2.4 Serum or plasma triglyceride measurement (mass/volume) - 02/07/20 03:13 Serum or plasma triglyceride measurement (mass/volume) 127 mg/dL <150 Whole blood basic metabolic panel - 01/11 07/01 10:39 Serum or plasma sodium measurement (moles/volume) 142 mmol/L 135-145 Serum or plasma potassium measurement (moles/volume) 4.0 mmol/L 3.6-5.0 Serum or plasma chloride measurement (moles/volume) 109 mmol/L 98-107 Carbon dioxide 21 mmol/L -32 Serum or plasma anion gap determination (moles/volume) 12 mmol/L 5-14 Serum or plasma urea nitrogen measurement (mass/volume ) 9 mg/dL 7-18 Serum or plasma creatinine measurement (mass/volume) 0.79 mg/dL 0.60-1.30 Serum or plasma urea nitrogen/creatinine mass ratio 11 NRG Serum or plasma creatinine measurement w ith calculation of estimated glomerular filtration rate > NRG Serum or plasma glucose measurement (mass/volume) 134 mg/dL 70-105 Serum or plasma calcium measurement (mass/volume) 8.1 mg/dL 8.5-10.1 Capillary blood glucose measurement by g lucometer (mass/volume) - 02/07/20 11:51 Capillary blood glucose measurement by glucometer (mas s/volume) 122 mg/dL 70-110 Capillary blood glucose measurement by g lucometer (mass/volume) - 02/07/20 18:11 Capillary blood glucose measurement by glucometer (mas s/volume) 159 mg/dL 70-110 Complete blood count (CBC) with automate d white blood cell (WBC) differential - 02/08/20 05:40 Blood leukocytes automated count (number/volume) 6.8 10*3/uL 4.3-11.0 Blood erythrocytes automated count (number/volume) 3.21 10*6/uL 4.35-5.85 Venous blood hemoglobin measurement (mass/volume) 8.9 g/dL 11.5-16.0 Blood hematocrit (volume fraction) 27 % 35-52 Automated erythrocyte mean corpuscular volume 85 [ foz_us] 80-99 Automated erythrocyte mean corpuscular h emoglobin (mass per erythrocyte) 28 pg 25-34 Automated erythrocyte mean corpuscular h emoglobin concentration measurement (mass/volume) 33 g/dL 32-36 Automated erythrocyte distribution width ratio 15. 4 % 10.0- 14.5 Automated blood platelet count (count/volume) 287 10*3/uL 130-400 Automated blood platelet mean volume measurement 10.0 [foz_us] 7.4-10.4 Automated blood neutrophils/100 leukocytes 63 % 42-75 Automated blood lymphocytes/100 leukocytes 25 % 12-44 Blood monocytes/100 leukocytes 9 % 0-12 Automated blood eosinophils/100 leukocytes 2 % 0-10 Automated blood basophils/100 leukocytes 0 % 0-10 Blood neutrophils automated count (number/volume) 4.3 10*3 1.8-7.8 Blood lymphocytes automated count (number/volume) 1.7 10*3 1.0-4.0 Blood monocytes automated count (number/volume) 0. 6 10*3 0.0-1.0 Automated eosinophil count 0.2 10*3/uL 0 .0-0.3 Automated blood basophil count (count/volume) 0.0 10*3/uL 0.0-0.1 Whole blood basic metabolic panel - 01/11 08/01 05:40 Serum or plasma sodium measurement (moles/volume) 143 mmol/L 135-145 Serum or plasma potassium measurement (moles/volume) 3.5 mmol/L 3.6-5.0 Serum or plasma chloride measurement (moles/volume) 107 mmol/L 98-107 Carbon dioxide 26 mmol/L 21-32 Serum or plasma anion gap determination (moles/volume) 10 mmol/L 5-14 Serum or plasma urea nitrogen measurement (mass/volume ) 8 mg/dL 7-18 Serum or plasma creatinine measurement (mass/volume) 0.80 mg/dL 0.60-1.30 Serum or plasma urea nitrogen/creatinine mass ratio 10 NRG Serum or plasma creatinine measurement w ith calculation of estimated glomerular filtration rate > NRG Serum or plasma glucose measurement (mass/volume) 132 mg/dL 70-105 Serum or plasma calcium measurement (mass/volume) 8.0 mg/dL 8.5-10.1 Serum or plasma phosphate measurement (m ass/volume) - 02/08/20 05:40 Serum or plasma phosphate measurement (mass/volume) 3.0 mg/dL 2.3-4.7 Magnesium - 02/08/20 05:40 Magnesium 1.7 mg/dL 1.6-2.4 Capillary blood glucose measurement by g lucometer (mass/volume) - 02/08/20 10:26 Capillary blood glucose measurement by glucometer (mas s/volume) 194 mg/dL 70-110 Capillary blood glucose measurement by g lucometer (mass/volume) - 02/08/20 15:36 Capillary blood glucose measurement by glucometer (mas s/volume) 154 mg/dL 70-110 Capillary blood glucose measurement by g lucometer (mass/volume) - 02/08/20 20:38 Capillary blood glucose measurement by glucometer (mas s/volume) 163 mg/dL 70-110 Complete blood count (CBC) with automate d white blood cell (WBC) differential - 02/09/20 02:19 Blood leukocytes automated count (number/volume) 10.2 10*3/uL 4.3-11.0 Blood erythrocytes automated count (number/volume) 3.50 10*6/uL 4.35-5.85 Venous blood hemoglobin measurement (mass/volume) 9.6 g/dL 11.5-16.0 Blood hematocrit (volume fraction) 30 % 35-52 Automated erythrocyte mean corpuscular volume 86 [ foz_us] 80-99 Automated erythrocyte mean corpuscular h emoglobin (mass per erythrocyte) 27 pg 25-34 Automated erythrocyte mean corpuscular h emoglobin concentration measurement (mass/volume) 32 g/dL 32-36 Automated erythrocyte distribution width ratio 15. 6 % 10.0- 14.5 Automated blood platelet count (count/volume) 324 10*3/uL 130-400 Automated blood platelet mean volume measurement 10.3 [foz_us] 7.4-10.4 Automated blood neutrophils/100 leukocytes 65 % 42-75 Automated blood lymphocytes/100 leukocytes 25 % 12-44 Blood monocytes/100 leukocytes 8 % 0-12 Automated blood eosinophils/100 leukocytes 2 % 0-10 Automated blood basophils/100 leukocytes 0 % 0-10 Blood neutrophils automated count (number/volume) 6.6 10*3 1.8-7.8 Blood lymphocytes automated count (number/volume) 2.5 10*3 1.0-4.0 Blood monocytes automated count (number/volume) 0. 8 10*3 0.0-1.0 Automated eosinophil count 0.2 10*3/uL 0 .0-0.3 Automated blood basophil count (count/volume) 0.0 10*3/uL 0.0-0.1 Whole blood basic metabolic panel - 01/12 02:19 Serum or plasma sodium measurement (moles/volume) 146 mmol/L 135-145 Serum or plasma potassium measurement (moles/volume) 3.8 mmol/L 3.6-5.0 Serum or plasma chloride measurement (moles/volume) 108 mmol/L 98-107 Carbon dioxide 27 mmol/L 21-32 Serum or plasma anion gap determination (moles/volume) 11 mmol/L 5-14 Serum or plasma urea nitrogen measurement (mass/volume ) 13 mg/dL 7-18 Serum or plasma creatinine measurement (mass/volume) 0.81 mg/dL 0.60-1.30 Serum or plasma urea nitrogen/creatinine mass ratio 16 NRG Serum or plasma creatinine measurement w ith calculation of estimated glomerular filtration rate > NRG Serum or plasma glucose measurement (mass/volume) 123 mg/dL 70-105 Serum or plasma calcium measurement (mass/volume) 8.3 mg/dL 8.5-10.1 Serum or plasma phosphate measurement (m ass/volume) - 02/09/20 02:19 Serum or plasma phosphate measurement (mass/volume) 3.2 mg/dL 2.3-4.7 Magnesium - 02/09/20 02:19 Magnesium 2.1 mg/dL 1.6-2.4 Capillary blood glucose measurement by g lucometer (mass/volume) - 02/09/20 11:12 Capillary blood glucose measurement by glucometer (mas s/volume) 158 mg/dL 70-110 Complete blood count (CBC) with automate d white blood cell (WBC) differential - 02/15/20 18:16 Blood leukocytes automated count (number/volume) 15.6 10*3/uL 4.3-11.0 Blood erythrocytes automated count (number/volume) 3.49 10*6/uL 4.35-5.85 Venous blood hemoglobin measurement (mass/volume) 9.7 g/dL 11.5-16.0 Blood hematocrit (volume fraction) 31 % 35-52 Automated erythrocyte mean corpuscular volume 90 [ foz_us] 80-99 Automated erythrocyte mean corpuscular h emoglobin (mass per erythrocyte) 28 pg 25-34 Automated erythrocyte mean corpuscular h emoglobin concentration measurement (mass/volume) 31 g/dL 32-36 Automated erythrocyte distribution width ratio 15. 9 % 10.0- 14.5 Automated blood platelet count (count/volume) 304 10*3/uL 130-400 Automated blood platelet mean volume measurement 10.9 [foz_us] 7.4-10.4 Automated blood neutrophils/100 leukocytes 84 % 42-75 Automated blood lymphocytes/100 leukocytes 8 % 12-44 Blood monocytes/100 leukocytes 8 % 0-12 Automated blood eosinophils/100 leukocytes 0 % 0-10 Automated blood basophils/100 leukocytes 0 % 0-10 Blood neutrophils automated count (number/volume) 13.1 10*3 1.8-7.8 Blood lymphocytes automated count (number/volume) 1.2 10*3 1.0-4.0 Blood monocytes automated count (number/volume) 1. 2 10*3 0.0-1.0 Automated eosinophil count 0.1 10*3/uL 0 .0-0.3 Automated blood basophil count (count/volume) 0.0 10*3/uL 0.0-0.1 PT panel in platelet poor plasma by coag ulation assay - 02/15/20 18:16 Prothrombin time (PT) in platelet poor plasma by coagu lation assay 15.2 s 12.2-14.7 INR in platelet poor plasma or blood by coagulation as say 1.2 0.8-1.4 Activated partial thromboplastin time (a PTT) in platelet poor plasma bycoagulation assay - 02/15/20 18:16 Activated partial thromboplastin time (a PTT) in platelet poor plasma bycoagulation assay 43 s 24-35 Blood lactic acid measurement (moles/vol ume) - 02/15/20 18:16 Blood lactic acid measurement (moles/volume) 0.96 mmol/L 0.50-2.00 Manual absolute plasma cell count - 03/31 18:16 Blood monocytes/100 leukocytes 4 % NRG Manual blood segmented neutrophils/100 leukocytes 81 % NRG Blood band neutrophils/100 leukocytes 7 % NRG Manual blood lymphocytes/100 leukocytes 8 % NRG Manual eosinophils/100 leukocytes in nose 0 % NRG Manual blood basophils/100 leukocytes 0 % NRG Blood anisocytosis detection by light microscopy S LIGHT NRG Erythrocyte sedimentation rate by alfonzo gren method - 02/15/20 18:16 Erythrocyte sedimentation rate by westergren method 66 mm 0- 30 Comprehensive metabolic panel - 02/15/20 18:16 Serum or plasma sodium measurement (moles/volume) 135 mmol/L 135-145 Serum or plasma potassium measurement (moles/volume) 8.6 mmol/L 3.6-5.0 Serum or plasma chloride measurement (moles/volume) 107 mmol/L 98-107 Carbon dioxide 13 mmol/L 21-32 Serum or plasma anion gap determination (moles/volume) 15 mmol/L 5-14 Serum or plasma urea nitrogen measurement (mass/volume ) 53 mg/dL 7-18 Serum or plasma creatinine measurement (mass/volume) 4.57 mg/dL 0.60-1.30 Serum or plasma urea nitrogen/creatinine mass ratio 12 NRG Serum or plasma creatinine measurement w ith calculation of estimated glomerular filtration rate 10 NRG Serum or plasma glucose measurement (mass/volume) 104 mg/dL 70-105 Serum or plasma calcium measurement (mass/volume) 8.5 mg/dL 8.5-10.1 Serum or plasma total bilirubin measurement (mass/volu me) 0.2 mg/dL 0.1-1.0 Serum or plasma alkaline phosphatase manny surement (enzymatic activity/volume) 81 U/L 40-136 Serum or plasma aspartate aminotransfera se measurement (enzymatic activity/volume) 12 U/L 5-34 Serum or plasma alanine aminotransferase measurement (enzymatic activity/volume) 9 U/L 0-55 Serum or plasma protein measurement (mass/volume) 6.4 g/dL 6.4-8.2 Serum or plasma albumin measurement (mass/volume) 3.4 g/dL 3.2-4.5 CALCIUM CORRECTED 9.0 mg/dL 8.5-10.1 Serum ragweed IgE antibody assay - 02/14 18:16 Serum ragweed IgE antibody assay 181 U/L 125-220 PROCALCITONIN (PCT) - 02/15/20 18:16 PROCALCITONIN (PCT) 0.61 ng/mL <0.10 Serum or plasma C reactive protein measu rement (mass/volume) - 02/15/20 18:16 Serum or plasma C reactive protein measurement (mass/v olume) 18.55 mg/dL 0.00-0.50 Bacterial blood culture - 02/15/20 18:16 Bacterial blood culture NG [facility] Serum or plasma ferritin measurement (ma ss/volume) - 02/15/20 18:16 Serum or plasma ferritin measurement (mass/volume) 321.5 % 20.0-177.0 Streptococcus pyogenes antigen detection - 02/15/20 18:20 Streptococcus pyogenes antigen detection NEGATIVE NEGATIVE Influenza virus A and B antigen detectio n - 02/15/20 18:20 FLU RESULT NEGATIVE FOR INFLUENZA A AND B ANTIGENS BY IA NR Bacterial throat culture - 02/15/20 18:2 0 Bacterial throat culture [facility] Complete urinalysis with reflex to cultu re - 02/15/20 19:20 Urine color determination YELLOW NRG Urine clarity determination SL CLOUDY N RG Urine pH measurement by test strip 5.0 [...] Urine total bilirubin detection by test strip 1+ NEGATIVE Urine urobilinogen measurement by automated test strip (mass/volume) 0.2 mg/dL < = 1.0 Urine leukocyte esterase detection by dipstick NEG ATIVE NEGATIVE Automated urine sediment erythrocyte cou nt by microscopy (number/high power field) NONE NRG Automated urine sediment leukocyte count by microscopy (number/high power field) [HPF] NRG Bacteria detection in urine sediment by light microsco py NEGATIVE NRG Squamous epithelial cells detection in u rine sediment by light microscopy RARE NRG Crystals detection in urine sediment by light microsco py NONE NRG Casts detection in urine sediment by light microscopy NONE NRG Mucus detection in urine sediment by light microscopy NEGATIVE NRG Complete urinalysis with reflex to culture CULTURE PENDING NRG Yeast detection in urine sediment by light microscopy MODERATE NRG Bacterial urine culture - 02/15/20 19:20 Bacterial urine culture GRAM POS M NRG COLONY COUNT <10,000 NRG RAPID ID PRELIM REPORT BY VCP 02/18/20 11:00 NRG ID CONFIRMATION RML CONFIRMED ID 02/18/20 14:15 NRG Whole blood basic metabolic panel - 03/31 20:40 Serum or plasma sodium measurement (moles/volume) 136 mmol/L 135-145 Serum or plasma potassium measurement (moles/volume) 7.5 mmol/L 3.6-5.0 Serum or plasma chloride measurement (moles/volume) 110 mmol/L 98-107 Carbon dioxide 13 mmol/L 21-32 Serum or plasma anion gap determination (moles/volume) 13 mmol/L 5-14 Serum or plasma urea nitrogen measurement (mass/volume ) 52 mg/dL 7-18 Serum or plasma creatinine measurement (mass/volume) 4.37 mg/dL 0.60-1.30 Serum or plasma urea nitrogen/creatinine mass ratio 12 NRG Serum or plasma creatinine measurement w ith calculation of estimated glomerular filtration rate 10 NRG Serum or plasma glucose measurement (mass/volume) 95 mg/dL 70-105 Serum or plasma calcium measurement (mass/volume) 9.0 mg/dL 8.5-10.1 Bacterial blood culture - 02/15/20 21:45 Bacterial blood culture NG NRG Capillary blood glucose measurement by g lucometer (mass/volume) - 02/15/20 21:49 Capillary blood glucose measurement by glucometer (mas s/volume) 88 mg/dL 70-110 Bacterial blood culture - 02/24/20 18:50 Bacterial blood culture NG NRG Complete blood count (CBC) with automate d white blood cell (WBC) differential - 02/24/20 19:55 Blood leukocytes automated count (number/volume) 19.3 10*3/uL 4.3-11.0 Blood erythrocytes automated count (number/volume) 3.26 10*6/uL 4.35-5.85 Venous blood hemoglobin measurement (mass/volume) 8.9 g/dL 11.5-16.0 Blood hematocrit (volume fraction) 29 % 35-52 Automated erythrocyte mean corpuscular volume 90 [ foz_us] 80-99 Automated erythrocyte mean corpuscular h emoglobin (mass per erythrocyte) 27 pg 25-34 Automated erythrocyte mean corpuscular h emoglobin concentration measurement (mass/volume) 30 g/dL 32-36 Automated erythrocyte distribution width ratio 16. 0 % 10.0- 14.5 Automated blood platelet count (count/volume) 423 10*3/uL 130-400 Automated blood platelet mean volume measurement 10.7 [foz_us] 7.4-10.4 Automated blood neutrophils/100 leukocytes 86 % 42-75 Automated blood lymphocytes/100 leukocytes 7 % 12-44 Blood monocytes/100 leukocytes 6 % 0-12 Automated blood eosinophils/100 leukocytes 0 % 0-10 Automated blood basophils/100 leukocytes 0 % 0-10 Blood neutrophils automated count (number/volume) 16.7 10*3 1.8-7.8 Blood lymphocytes automated count (number/volume) 1.4 10*3 1.0-4.0 Blood monocytes automated count (number/volume) 1. 2 10*3 0.0-1.0 Automated eosinophil count 0.0 10*3/uL 0 .0-0.3 Automated blood basophil count (count/volume) 0.0 10*3/uL 0.0-0.1 Comprehensive metabolic panel - 02/24/20 19:55 Serum or plasma sodium measurement (moles/volume) 137 mmol/L 135-145 Serum or plasma potassium measurement (moles/volume) 6.5 mmol/L 3.6-5.0 Serum or plasma chloride measurement (moles/volume) 97 mmol/L 98-107 Carbon dioxide 20 mmol/L 21-32 Serum or plasma anion gap determination (moles/volume) 20 mmol/L 5-14 Serum or plasma urea nitrogen measurement (mass/volume ) 38 mg/dL 7-18 Serum or plasma creatinine measurement (mass/volume) 4.98 mg/dL 0.60-1.30 Serum or plasma urea nitrogen/creatinine mass ratio 8 NRG Serum or plasma creatinine measurement w ith calculation of estimated glomerular filtration rate 9 NRG Serum or plasma glucose measurement (mass/volume) 143 mg/dL 70-105 Serum or plasma calcium measurement (mass/volume) 7.4 mg/dL 8.5-10.1 Serum or plasma total bilirubin measurement (mass/volu me) 0.4 mg/dL 0.1-1.0 Serum or plasma alkaline phosphatase manny surement (enzymatic activity/volume) 100 U/L 40-136 Serum or plasma aspartate aminotransfera se measurement (enzymatic activity/volume) 54 U/L 5-34 Serum or plasma alanine aminotransferase measurement (enzymatic activity/volume) 19 U/L 0-55 Serum or plasma protein measurement (mass/volume) 6.6 g/dL 6.4-8.2 Serum or plasma albumin measurement (mass/volume) 3.4 g/dL 3.2-4.5 CALCIUM CORRECTED 7.9 mg/dL 8.5-10.1 Magnesium - 02/24/20 19:55 Magnesium 0.7 mg/dL 1.6-2.4 PT panel in platelet poor plasma by coag ulation assay - 02/24/20 19:55 Prothrombin time (PT) in platelet poor plasma by coagu lation assay 14.3 s 12.2-14.7 INR in platelet poor plasma or blood by coagulation as say 1.1 0.8-1.4 Lipase - 02/24/20 19:55 Lipase 7 U/L 8-78 Ammonia - 02/24/20 19:55 Ammonia 18 umol/L 11-32 Serum or plasma C reactive protein measu rement (mass/volume) - 02/24/20 19:55 Serum or plasma C reactive protein measurement (mass/v olume) > mg/dL 0.00-0.50 Serum or plasma ethanol measurement (mas s/volume) - 02/24/20 19:55 Serum or plasma ethanol measurement (mass/volume) < mg/dL <10 Manual absolute plasma cell count - 02/10 03/01 19:55 Blood monocytes/100 leukocytes 7 % NRG Manual blood segmented neutrophils/100 leukocytes 86 % NRG Blood band neutrophils/100 leukocytes 1 % NRG Manual blood lymphocytes/100 leukocytes 6 % NRG Blood hypochromia detection by light microscopy MO DERATE NRG Blood lactic acid measurement (moles/vol ume) - 02/24/20 19:55 Blood lactic acid measurement (moles/volume) 3.11 mmol/L 0.50-2.00 Bacterial blood culture - 02/24/20 19:55 Bacterial blood culture NG NRG Complete urinalysis with reflex to cultu re - 02/24/20 20:20 Urine color determination YELLOW NRG Urine clarity [...] Urine ketones detection by automated test strip TR SUREKHA NEGATIVE Urine nitrite detection by test strip NEGATIVE NEGATIVE Urine total bilirubin detection by test strip 1+ NEGATIVE Urine urobilinogen measurement by automated test strip (mass/volume) 0.2 mg/dL < = 1.0 Urine leukocyte esterase detection by dipstick TRA CE NEGATIVE Automated urine sediment erythrocyte cou nt by microscopy (number/high power field) [HPF] NRG Automated urine sediment leukocyte count by microscopy (number/high power field) [HPF] NRG Bacteria detection in urine sediment by light microsco py TRACE NRG Squamous epithelial cells detection in u rine sediment by light microscopy 5-10 NRG Crystals detection in urine sediment by light microsco py PRESENT NRG Casts detection in urine sediment by light microscopy NONE NRG Mucus detection in urine sediment by light microscopy NEGATIVE NRG Complete urinalysis with reflex to culture NO NRG Amorphous sediment detection in urine sediment by ligh t microscopy LARGE BERNICE URATES NRG Urine drug screening test - 02/24/20 20: 20 Urine phencyclidine detection by screening method POSITIVE NEGATIVE Urine benzodiazepines detection by screening method POSITIVE NEGATIVE Urine cocaine detection POSITIVE NEGATI VE Urine amphetamines detection by screening [...] TIVE Urine propoxyphene detection NEGATIVE N EGATIVE Arterial blood gas measurement - 0 20:25 Blood pCO2 47 mm[Hg] 35-45 Blood pO2 128 mm[Hg] 79-93 Arterial blood bicarbonate measurement (moles/volume) 22 mmol/L 23-27 Arterial blood base excess by calculation -3.6 mmo l/L -2.5-2.5 Arterial blood oxygen saturation measurement 97 % 94-100 * Inhaled oxygen flow rate 4 NRG Arterial blood pH measurement with patient temperature correction 7.29 7.37-7.43 Arterial blood carbon dioxide, total measurement (mole s/volume) 23.5 mmol/L 21.0-31.0 Body site LEFT RADIAL NRG Assessment of wrist artery patency prior to arterial p uncture POSITIVE NRG Setting of ventilation mode NO NR G Measurement of body temperature 36.7 NRG Capillary blood glucose measurement by g lucometer (mass/volume) - 02/25/20 00:07 Capillary blood glucose measurement by glucometer (mas s/volume) 169 mg/dL 70-110 Capillary blood glucose measurement by g lucometer (mass/volume) - 02/25/20 00:50 Capillary blood glucose measurement by glucometer (mas s/volume) 207 mg/dL 70-110 Capillary blood glucose measurement by g lucometer (mass/volume) - 02/25/20 02:08 Capillary blood glucose measurement by glucometer (mas s/volume) 190 mg/dL 70-110 Encounters ACCT No. Visit Date/Time Discharge Status Pt. Type Provider Facility Loc./Unit Complaint [id number] 02/24/2020 19:45:00 02:33:00 DIS Outpatient TERRA CRISTINA MD [facility] ER ABDOMINAL PAIN [id number] 02/15/2020 17:57:00 21:54:00 DIS Outpatient PETRA MCMANUS MD [facility] ER FALL [id number] 02/03/2020 14:51:00 14:30:00 DIS Inpatient ARTEMIO APARICIO MD [facility] ICU SEPTIC SHOCK [id number] 01/24/2020 11:12:00 11:30:00 DIS Inpatient UYEN RANDAL [facility] IRF COPD MYOPATHY [id number] 01/17/2020 10:08:00 23:59:59 CLS Inpatient LUKAS NUNES MD [facility] 4TH SMALL BOWEL OBSTRUCTION [id number] 12/19/2019 19:35:00 11:45:00 DIS Inpatient LUKAS NUNES MD [facility] ICU COPD EXACERBATION,RESP FAILURE W/ HYPOXIA AND HYPE [id number] 12/10/2019 10:23:00 15:30:00 DIS Outpatient RAY MACKEY MD [facility] RIGHT CARPAL/CUBITAL T UNNEL SYNDROME [id number] 12/08/2019 08:40:00 10:00:00 DIS Outpatient RAY MACKEY MD [facility] PREOP RIGHT CARPAL/CUBITAL T UNNEL SYNDROME [id number] 11/03/2019 07:54:00 23:59:59 CLS Outpatient SARAH ROBERTSON [facility] RAD CERVICAL SPINAL STENOS IS [id number] 10/24/2019 14:18:00 12:05:00 DIS Inpatient LUKAS NUNES MD [facility] ICU PNEUMONIA;HYPOXIA;AMS [id number] 09/04/2019 00:13:00 23:59:59 CLS Preadmit RUDOLPH KENT DO [facility] FLUSH PORT MONTHLY PRN [id number] 08/01/2019 11:58:00 00:01:00 DIS Outpatient RUDOLPH KENT DO [facility] FLUSH PORT [facility] PRN [id number] 06/25/2019 07:27:00 10:35:00 DIS Outpatient QING TAO DO [facility] ENDO ENDOBRONCHIAL MASS [id number] 06/23/2019 09:57:00 08/12/2 019 23:59:59 CLS Outpatient LUKASZ CROWLEY APRN [facility] RT OXYGEN DEPENDEN T, TOBACCO USE [id number] 05/08/2019 13:08:00 00:01:00 DIS Outpatient RUDOLPH KENT DO [facility] FLUSH PORT PATY HLY PRN [id number] 05/06/2019 13:02:00 23:59:59 CLS Outpatient LUKASZ CROWLEY APRN [facility] RAD MARIJUANA ABUSE ,OXYGEN DEPENDENT,TOBACCO USE [id number] 05/01/2019 14:35:00 23:59:59 CLS Preadmit RUDOLPH KENT DO [facility] RAD SCREENING [id number] 03/19/2019 06:49:00 13:05:00 DIS Outpatient JUAN LICONA MD [facility] CATH ABN STRESS TEST [id number] 03/12/2019 07:41:00 23:59:59 CLS Outpatient JUAN LICONA MD [facility] CARD CHEST PAIN SYNDROME,CLA UDICATION [id number] 03/10/2019 13:35:00 23:59:59 CLS Outpatient JUAN LICONA MD [facility] CARD CHEST PAIN SYNDROME,CLA UDICATION [id number] 01/17/2019 12:03:00 00:01:00 DIS Outpatient RUDOLPH KENT DO [facility] FLUSH PORT PATY HLY PRN [id number] 10/10/2018 11:03:00 23:59:59 CLS Outpatient RUDOLPH KENT DO [facility] RAD TRAUMA [id number] 10/08/2018 11:25:00 15:15:00 DIS Outpatient MELISA DOEHRTY MD [facility] POOR PERIPHERAL VENOUS CIRCULATION [id number] 10/07/2018 05:48:00 12:44:00 DIS Outpatient MELISA DOHERTY MD [facility] PREOP POOR PERIPHERAL VENOUS CIRCULATION [id number] 09/19/2018 07:44:00 22:40:00 DIS Out[facility] [id number] 09/16/2018 05:33:00 12:07:00 DIS Outpatient MELISA DOHERTY MD [facility] PREOP PLACEMENT OF [place] P ORT [id number] 09/09/2018 10:37:00 23:59:59 CLS Outpatient RUDOLPH KENT DO [facility] RAD SCIATICA LT LOW ER ETREMITY [id number] 09/04/2018 13:20:00 018 13:20:00 DIS Outpatient RUDOLPH KENT DO [facility] SDC PORT [id number] 08/16/2018 13:12:00 018 23:59:59 CLS Outpatient RUDOLPH KENT DO [facility] RAD MIGRANES [id number] 07/09/2018 13:08:00 018 00:01:00 DIS Outpatient RUDOLPH KENT DO [facility] SDC PORT [id number] 05/16/2018 13:00:00 018 00:01:00 DIS Outpatient RUDOLPH KENT DO [facility] SDC PORT [id number] 04/02/2018 12:02:00 018 23:59:59 CLS Outpatient RUDOLPH KENT DO [facility] RAD SEE ORDER [id number] 03/25/2018 09:35:00 018 23:59:59 CLS Outpatient RAY COLBY MD [facility] WOUNDCARE [id number] 11/09/2017 12:05:00 018 00:01:00 DIS Outpatient RUDOLPH KENT DO [facility] SDC PORT [id number] 11/15/2017 09:01:00 018 23:59:59 CLS Outpatient RUDOLPH KENT DO [facility] RAD MENOPAUSE [id number] 10/18/2017 09:35:00 017 23:59:59 CLS Outpatient RUDOLPH KENT DO [facility] RAD SCREENING [id number] 08/20/2017 12:10:00 017 23:59:59 CLS Preadmit RUDOLPH KENT DO [facility] RAD SCREENING [id number] 08/03/2017 12:02:00 017 00:01:00 DIS Outpatient YOLI VILLALPANDORUDOLPH [facility] PORT [id number] 07/21/2017 10:37:00 017 23:59:59 CLS Outpatient YOLI VILLALPANDORUDOLPH [facility] RAD TRAUMA,KNEE [id number] 05/08/2017 13:05:00 017 00:01:00 DIS Outpatient KENT RUDOLPH [facility] PORT [id number] 05/07/2017 08:16:00 017 23:59:59 CLS Outpatient IDALIA DE LA ROSA [facility] CARD BENIGN HYPERTENSION,HYPERLIPIDEMIA [id number] 04/30/2017 09:22:00 017 23:59:59 CLS Outpatient IDALIA DE LA ROSA [facility] CARD CAD,HYPERLI PIDEMIA [id number] 01/30/2017 13:15:00 017 23:59:59 CLS Preadmit LUKASZ CROWLEY APRN [facility] RAD COPD [id number] 11/01/2016 13:26:00 017 00:01:00 DIS Outpatient LUKASZ CROWLEY APRN [facility] RAD COPD [id number] 08/25/2016 13:04:00 016 00:01:00 DIS Outpatient RUDOLPH KENT DO [facility] PORT [id number] 06/16/2016 13:05:00 00:01:00 DIS Outpatient RUDOLPH KENT DO [facility] PORT [id number] 04/17/2016 16:45:00 12:30:00 DIS Inpatient RUDOLPH KENT DO [facility] 4TH COPD EXACERBATI ON, FLUID RETENTION [id number] 03/28/2016 11:05:00 23:59:59 CLS Outpatient LUKASZ CROWLEY APRN [facility] RAD COPD,DYSPNEA,TO BACCO USE [id number] 08/17/2015 10:26:00 13:15:00 DIS Outpatient LUCINA DO MEDARDOSAUD [facility] ABDOMINAL PAIN [id number] 08/12/2015 05:38:00 23:59:59 CLS Outpatient LUCINA DO DIANNKASH [facility] PREOP ABDOMINAL PAIN [id number] 08/10/2015 09:32:00 23:59:59 CLS Outpatient LUCINA DO DIANNKASH [facility] RAD VENTRAL HERNIA [id number] 07/09/2015 06:39:00 23:59:59 CLS Outpatient RUDOLPH KENT DO [facility] CARD 414.00 786.50-- CAD,CP [id number] 06/30/2015 11:26:00 23:59:59 CLS Outpatient PETRA KEARNEY DC [facility] RAD MID BACK/CHEST PAIN [id number] 06/29/2015 12:36:00 23:59:59 CLS Outpatient PETRA KEARNEY DC [facility] RAD MID BACK/CHEST PAIN [id number] 06/09/2015 09:01:00 12:00:00 DIS Outpatient RAY COLBY MD [facility] WOUNDCARE OPEN CHRONIC WOUND ABD [id number] 05/26/2015 08:58:00 015 00:01:00 DIS Outpatient RAY COLBY MD [facility] WOUNDCARE OPEN CHRONIC WOUND ABD [id number] 03/24/2015 10:30:00 015 23:59:59 CLS Outpatient JIMMY KENT [facility] RAD FALL, 03/22/15 PNUEMONIA [id number] 03/19/2015 10:25:00 015 23:59:59 CLS Outpatient KASIE DPM, ANDREA Q [facility] RAD TARSAL MICHELLE [id number] 03/18/2015 10:39:00 23:59:59 CLS Outpatient LUCINACHA DIANA DO [facility] RAD DYSPHAGIA [id number] 03/16/2015 10:09:00 015 13:25:00 DIS Outpatient MEDARDO VERDUGO DOROUTIE [facility] SDC DYSPHAGIA [id number] 03/11/2015 06:42:00 015 23:59:59 CLS Outpatient MEDARDO VERDUGO DOROUTIE [facility] PREOP DYSPHAGIA [id number] 02/24/2015 09:02:00 015 00:01:00 DIS Outpatient RAY COLBY MD [facility] WOUNDCARE OPEN CHRONIC WOUND ABD [id number] 12/09/2014 12:58:00 015 23:59:59 CLS Outpatient QING TAO DO [facility] RT COPD,DYSPNA [id number] 10/15/2014 10:06:00 014 23:59:59 CLS Outpatient RUDOLPH KENT DO [facility] RAD ROUTINE [id number] 09/30/2014 11:00:00 014 13:36:00 DIS Outpatient JIMMY KENT [facility] WOUNDCARE OPEN CHRONIC WO UND TO ABD [id number] 09/23/2014 10:51:00 10:05:00 DIS Outpatient JUAN LICONA MD [facility] CATH ABNORMAL STRESS, CAD, SOB,CP,TOBACCOISM [id number] 09/21/2014 07:53:00 23:59:59 CLS Outpatient JUAN LICONA MD [facility] CARD CP,HLP [id number] 09/18/2014 08:55:00 23:59:59 CLS Outpatient JUAN LICONA MD [facility] CARD CP,HLP [id number] 08/24/2014 14:30:00 23:59:59 CLS Outpatient LUCINA DOMEDARDOROUTIE [facility] LABNPT ABDOMINAL WOUND [id number] 08/20/2014 11:03:00 14:15:00 DIS Outpatient LUCINA DO CHANDROUTIE [facility] MULTIPLE GASTRI C ULCERS [id number] 08/12/2014 07:18:00 23:59:59 CLS Outpatient LUCINA DO, CHANDROUTIE [facility] PREOP MULTIPLE GASTRI C ULCERS [id number] 05/29/2014 09:39:00 00:01:00 DIS 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 [id number] 07/15/2014 12:00:00 00:01:00 DIS Outpatient JIMMY KENT D[employer]ING [employer] WORKER [facility] WOUNDCARE OPEN CHRONIC WO UND TO ABD [id number] 07/09/2014 12:20:00 15:30:00 DIS Outpatient LUCINA DO CHANDROUTIE [facility] REFLUX [id number] 07/08/2014 07:15:00 23:59:59 CLS Outpatient LUCINA DO CHANDROUTIE [facility] PREOP REFLUX [id number] 06/19/2014 10:22:00 23:59:59 CLS Outpatient LUCINA CHA [facility] RAD DSYPHAGIA [id number] 06/04/2014 11:57:00 15:05:00 DIS Outpatient LUCINA CHA [facility] SDC REFLUX [id number] 06/03/2014 08:33:00 23:59:59 CLS Outpatient LUCINA CHA [facility] PREOP REFLUX [id number] 04/10/2014 08:50:00 00:01:00 DIS Outpatient JIMMY KENT [facility] WOUNDCARE OPEN CHRONIC WO UND TO ABD [id number] 03/20/2014 09:29:00 00:01:00 DIS Outpatient JIMMY KENT [facility] PORT [id number] 02/21/2014 12:51:00 014 17:09:00 DIS Inpatient RUDOLPH KENT DO [facility] SURGICAL SMALL BOWEL OBSTRUCTION [id number] 02/03/2014 09:19:00 23:59:59 CLS Outpatient RUDOLPH KENT DO [facility] RAD PNUEMONIA [id number] 10/22/2013 10:15:00 11:14:00 DIS Outpatient RUDOLPH KENT DO [facility] WOUNDCARE ABD WOUND [id number] 08/25/2013 08:06:00 13:35:00 DIS Inpatient RUDOLPH KENT DO [facility] 4TH COPD EXACERBATI ON INFLUENZA B [id number] 08/22/2013 11:42:00 23:59:59 CLS Outpatient JIMMY VARGAS APRN [facility] RAD COUGH,FEBULE IL LNESS [id number] 03/14/2013 09:15:00 10:08:00 DIS Outpatient MELISA DOHERTY MD [facility] WOUNDCARE OPEN ABD WOUND [id number] 12/26/2017 08:28:00 Document Registration [id number] 12/26/2017 08:28:00 Document Registration [id number] 12/26/2017 08:28:00 Document Registration [id number] 12/26/2017 08:28:00 Document Registration [id number] 12/26/2017 08:27:00 Document Registration [id number] 12/26/2017 08:27:00 Document Registration [id number] 12/26/2017 08:27:00 Document Registration [id number] 12/26/2017 08:27:00 Document Registration [id number] 01/25/2015 20:10:00 Document Registration [id number] 07/31/2014 00:00:00 Document Registration [id number] 2013 00:00:00 Document Registration [id number] 02/23/2013 16:36:00 Document Registration [id number] 02/14/2013 00:00:00 Document Registration [id number] 02/07/2013 11:31:00 Document Registration [id number] 01/28/2013 10:30:00 Document Registration [id number] 11/08/2012 10:50:00 Document Registration [id number] 10/29/2012 10:05:00 Document Registration [id number] 10/25/2012 10:37:00 Document Registration [id number] 10/08/2012 10:00:00 Document Registration [id number] 08/16/2012 11:37:00 Document Registration [id number] 08/05/2012 00:00:00 Document Registration [id number] 08/01/2012 06:54:00 Document Registration [id number] 07/31/2012 08:09:00 Document Registration [id number] 07/16/2012 10:05:00 Document Registration [id number] 05/07/2012 10:19:00 Document Registration [id number] 04/10/2012 14:00:00 Document Registration [id number] 02/14/2012 11:50:00 Document Registration [id number] 01/19/2012 20:15:00 Document Registration [id number] 08/28/2011 15:15:00 Document Registration [id number] 08/14/2011 09:52:00 Document Registration [id number] 07/28/2011 15:15:00 Document Registration [id number] 06/07/2011 14:32:00 Document Registration [id number] 05/29/2011 09:56:00 Document Registration [id number] 05/25/2011 10:14:00 Document Registration [id number] 04/28/2011 14:55:00 Document Registration [id number] 02/26/2011 14:17:00 Document Registration [id number] 01/25/2011 15:20:00 Document Registration [id number] 10/24/2010 15:30:00 Document Registration [id number] 06/20/2010 15:00:00 Document Registration [id number] 04/07/2010 17:36:00 Document Registration [id number] 02/15/2010 14:55:00 Document Registration [id number] 10/29/2009 07:00:00 Document Registration [id number] 05/25/2009 10:07:00 Document Registration [id number] 02/23/2009 08:31:00 Document Registration [id number] 10/01/2008 14:03:00 Document Registration [id number] 08/13/2008 10:56:00 Document Registration [id number] 06/19/2008 12:32:00 Document Registration [id number] 06/04/2008 15:19:00 Document Registration [id number] 04/09/2008 08:04:00 Document Registration [id number] 12/17/2007 08:33:00 Document Registration [id number] 01/18/2007 11:18:00 Document Registration [id number] 11/09/2006 06:26:00 Document Registration [id number] 05/04/2006 11:09:00 Document Registration [id number] 04/27/2006 07:50:00 Document Registration [id number] 04/12/2006 17:10:00 Document Registration [id number] 03/20/2006 12:15:00 Document Registration [id number] 02/22/2006 08:15:00 Document Registration
[2020-03-09 14:50] LABS: BASOPHILS % (AUTO) 0 % (0-10); EOSINOPHILS # (AUTO) 0.1 10^3/uL (0.0-0.3); EOSINOPHILS % (AUTO) 0 % (0-10); HEMATOCRIT 31 % (35-52); HEMOGLOBIN 9.6 G/DL (11.5-16.0); LYMPHOCYTES # (AUTO) 2.1 X 10^3 (1.0-4.0); LYMPHOCYTES % (AUTO) 9 % (12-44); MEAN CORPUSCULAR HEMOGLOBIN 27 PG (25-34); MEAN CORPUSCULAR HGB CONC 31 G/DL (32-36); MEAN CORPUSCULAR VOLUME 90 FL (80-99); MEAN PLATELET VOLUME 10.6 FL (7.4-10.4); MONOCYTES # (AUTO) 0.8 X 10^3 (0.0-1.0); MONOCYTES % (AUTO) 3 % (0-12); NEUTROPHILS # (AUTO) 20.6 X 10^3 (1.8-7.8); NEUTROPHILS % (AUTO) 88 % (42-75); PLATELET COUNT 324 10^3/uL (130-400); RED CELL DISTRIBUTION WIDTH 16.2 % (10.0-14.5); WHITE BLOOD COUNT 23.5 10^3/uL (4.3-11.0)
[2020-03-09 15:04] LABS: ABG BASE EXCESS -8.3 MMOL/L (-2.5-2.5); ABG OXYGEN SATURATION 99 % (94-100); ABG PCO2 50 MMHG (35-45); ABG PO2 224 MMHG (79-93); ABG TCO2 19.8 MMOL/L (21.0-31.0); ALLENS TEST YES-POS; INSPIRED O2 4L; VENTILATOR NO
[2020-03-09 15:04] LABS: INR 1.1 (0.8-1.4); PROTHROMBIN TIME PATIENT 14.9 SEC (12.2-14.7)
[2020-03-09 15:05] LABS: PATIENT TEMP 37.5
[2020-03-09 15:10] LABS: ALANINE AMINOTRANSFERASE 8 U/L (0-55); ALBUMIN 3.8 GM/DL (3.2-4.5); ALKALINE PHOSPHATASE 82 U/L (40-136); AMMONIA 25 UMOL/L (11-32); BILIRUBIN,TOTAL 0.4 MG/DL (0.1-1.0); BUN/CREATININE RATIO 12; CALCIUM 7.2 MG/DL (8.5-10.1); CARBON DIOXIDE 19 MMOL/L (21-32); CHLORIDE 109 MMOL/L (98-107); CREATININE SERUM 2.83 MG/DL (0.60-1.30); GFR ESTIMATED 17; GLUCOSE 105 MG/DL (70-105); SODIUM 140 MMOL/L (135-145); TOTAL PROTEIN 6.3 GM/DL (6.4-8.2)
[2020-03-09 15:13] LABS: LYMPHOCYTES % (MANUAL) 6 %; MONOCYTES % (MANUAL) 2 %; NEUTROPHILS % (MANUAL) 92 %; RBC MORPH NORMAL
[2020-03-09 15:14] LABS: ACETAMINOPHEN < 10 UG/ML (10-30)
--- NOTE | 2020-03-09 15:14 | ED General ---
General Chief Complaint: Neurological Problems Stated Complaint: AMS Nursing Triage Note: TO ED PER EMS FROM HOME EMS REPORT THAT PATIENT WAS UNRESPONSIVE PER ON ARRIVAL TO ED ANSWERS QUESTIONS,BUT DROWSY. ABD APPEARS DISTENDED PATIENT REPORTS THAT IS NORMAL FOR HER Nursing Sepsis Screen: No Definite Risk Source of Information: Patient (THOMAS HISTORIAN), EMS, Old Records History of Present Illness Date Seen by Provider: Mar 09, 2020 Time Seen by Provider: 14:22 Initial Comments PT ARRIVES VIA EMS FROM HOME CALLED EMS BECAUSE PT WAS UNRESPONSIVE--IS UNKNOWN HOW LONG SHE HAD BEEN IN THAT CONDITION, BUT NO INDICATION THAT SHE HAD FALLEN OR HIT HER HEAD WHEN EMS ARRIVED AT THE SCENE, PT WAS AWAKE BUT VERY LETHARGIC/DROWSY, BUT SITTING UP IN CHAIR EMS REPORT THAT PT'S BP WAS 70/40, RECEIVING DUONEB ON ARRIVAL TO ER. PT HAS HISTORY OF COPD AND MULTIPLE EPISODES OF PNEUMONIA/RESPIRATORY FAILURE EMS REPORT THAT PT'S O2 SATS WERE IN 90'S AT SCENE ON PT'S HOME O2 AT 4L/NC EMS WERE UNABLE TO OBTAIN IV ACCESS, SO I/O WAS PLACED IN LEFT LOWER LEG--EMS RE PORT THAT PT'S MENTATION HAS IMPROVED SINCE PLACING THE I/O-AND PT'S ONLY COMPLAINT IS PAIN AT THE SITE ON ARRIVAL HERE, BP IS 71/44, HR 105-115, O2 SAT 100% WITH DUONEB IN PROGRESS ON ARRIVAL PT IS AWAKE BUT DROWSY AND LETHARGIC AND MOANING. PT HAS HAD A MULTITUDE OF ADMITS FOR VARIOUS COMPLAINTS, AND HAS HAD 6 ADMITS HERE AND / OR TRANSFERRED SINCE 01/17/20 PT'S MOST RECENT ER VISIT WITH TRANSFER TO [facility] WAS 02/24/20 FOR ACUTE RENAL FAILURE WITH CREATININE OF ALMOST 5, WITH BOWEL OBSTRUCTION--NO SURGERY REQUIRED. DISMISSED TO HOME ON Sunday03/05/20 PT ADMITTED /TRANSFERRED TO [facility] 02/14 FOR PNEUMONIA WITH SEPSIS AND RENAL FAILURE ADMITTED /TRANSFERRED TO [facility] D 02/03/20 FOR SEPTIC SHOCK PT WAS ON DIALYSIS BRIEFLY WHILE HOSPITALIZED AT [facility], BUT HAS NOT BEEN STARTED ON DISCHARGE COORDINATOR DIALYSIS AT THIS POINT PCP: DR. KENT Allergies and Home Medications Allergies Coded Allergies: Iodinated Contrast Media (Verified Allergy, Mild, HIVES, 12/08/19) linezolid (Verified Allergy, Mild, HIVE, 12/08/19) Home Medications Albuterol Sulfate 2.5 Mg/3 Ml Vial.neb, 2.5 MG NEB QID PRN for SHORTNESS OF BREATH, (Reported) Albuterol/Ipratropium 4 Gm Aero, 1 PUFF IH QID, (Reported) Alprazolam 1 Mg Tablet, 1 MG PO 0800,1200, (Reported) Alprazolam 1 Mg Tablet, 0.5 MG PO HS, (Reported) Aspirin 81 Mg Tablet.dr, 81 MG PO DAILY, (Reported) Atorvastatin Calcium 10 Mg Tablet, 10 MG PO HS, (Reported) Bethanechol Chloride 10 Mg Tablet, 10 MG PO BID Prescribed by: RANDAL QIU on 01/30/20 104 Cetirizine HCl 10 Mg Tablet, 10 MG PO DAILY, (Reported) Cyanocobalamin 1,000 Mcg/Ml Inj, 1,000 MCG IM ONCE, (Reported) Cyclobenzaprine HCl 10 Mg Tablet, 10 MG PO TID PRN for MUSCLE SPASMS, (Reported) Dicyclomine HCl 10 Mg Capsule, 10 MG PO BID, (Reported) Fluticasone Propionate 9.9 Ml [place].susp, 1 SPRAY NS DAILY, (Reported) 1 SPRAY EACH NARE DAILY Fluticasone/Salmeterol 1 Each Blst.w.dev, 1 PUFF IH BID, (Reported) Furosemide 20 Mg Tablet, 20 MG PO DAILY, (Reported) Insulin Glargine,Hum.rec.anlog 100 Unit/1 Ml Insuln.pen, 10 UNIT SQ HS, (Reported) Lisinopril 10 Mg Tablet, 10 MG PO DAILY Prescribed by: RANDAL QIU on 01/29/202121 Meclizine HCl 25 Mg Tablet, 25 MG PO TID PRN for VERTIGO, (Reported) Metformin HCl 1,000 Mg Tablet, 1,000 MG PO BID WITH MEALS, (Reported) Metoclopramide HCl 10 Mg Tablet, 10 MG PO QID, (Reported) Montelukast Sodium 10 Mg Tablet, 10 MG PO HS, (Reported) Omeprazole 20 Mg Capsule.dr, 20 MG PO BID, (Reported) Ondansetron 4 Mg Tab.rapdis, 4 MG PO Q6H PRN for NAUSEA/VOMITING-1ST LINE Prescribed by: RANDAL QIU on 01/29/202121 Oxycodone HCl 10 Mg Tablet, 10 MG PO Q6H PRN for PAIN-SEVERE (8-10) Prescribed by: LUKAS NUNES on 02/09/20 1143 Potassium Chloride 10 Meq Tab.er.prt, 10 MEQ PO TID, (Reported) Pregabalin 150 Mg Capsule, 150 MG PO BID, (Reported) Quetiapine Fumarate 50 Mg Tablet, 50 MG PO HS, (Reported) Ranitidine HCl 150 Mg Tablet, 150 MG PO BID, (Reported) Ranolazine 500 Mg Tab.er.12h, 500 MG PO BID, (Reported) Ropinirole HCl 1 Mg Tablet, 1 MG PO HS, (Reported) Sennosides/Docusate Sodium 1 Each Tablet, 1 EA PO BID Prescribed by: RANDAL QIU on 01/29/202121 Tamsulosin HCl 0.4 Mg Cap, 0.4 MG PO DAILY@1800 Prescribed by: RANDAL QIU on 01/29/202121 Patient Home Medication List Home Medication List Reviewed: Yes Review of Systems Review of Systems Constitutional: malaise, weakness Respiratory: short of breath Gastrointestinal: No abdominal pain, No nausea, No vomiting; other (STATES HER ABDOMEN IS ALWAYS DISTENDED AND IS NOT ANY DIFFERENT TODAY AND DENIES ANY ABDOMINAL PAIN OR NAUSEA/VOMITING OR ANY GI SYMPTOMS) Psychiatric/Neurological: See HPI Past Rmpacnc-Yejxts-Dxnuzb Hx Past Med/Social Hx: Reviewed and Corrections made Patient Social History Alcohol Use: Occasionally Uses (HEAVY AT TIMES) Number of Drinks Today: GG Alcohol Beverage of Choice: Rum, Whiskey, [place], Vodka Recreational Drug Use: Yes (POLYSUBSTANCE ABUSE-PAUL RX DRUGS/OPIATES-UDS + FOR PCP AND COCAINE 02/24/20) Drug of Choice: POLYSUBSTANCE ABUSE-PAUL RX DRUGS/OPIATES-UDS + FOR PCP & COCAINE 02/24/20 Smoking Status: Current Everyday Smoker (2 PPD) Type Used: Cigarettes (2 PPD) 2nd Hand Smoke Exposure: Yes Recent Foreign Travel: No Contact w/Someone Who Travel: No Recent Infectious Disease Expo: No Recent Hopitalizations: Yes Immunizations Up To Date Tetanus Booster (TDap): Unknown Date of Pneumonia Vaccine: Sep 16, 2019 Date of Influenza Vaccine: Sep 15, 2019 Seasonal Allergies Seasonal Allergies: Yes Past Medical History Surgeries: Yes (several exploratomy laparotomies, hernia with mesh) Abdominal, Appendectomy, Cardiac, Coronary Stent, Gallbladder, 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, Oophorectomy, Orthopedic, Vascular Surgery Respiratory: Yes (HOME 02- 3L ; INTUBATION REQUIRED ON PREVIOUS ADMITS) Pneumonia, Chronic Bronchitis, COPD Currently Using CPAP: No Currently Using BIPAP: No Cardiac: Yes (CHF; CARDIAC CATHS WITH STENT X 1 TO RCA 2013) Chronic Edema/Swelling, Coronary Artery Disease, High Cholesterol, Hypertension Neurological: Yes Headaches /Migraines, Neuropathy 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, 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 Genitourinary: Yes Bladder Infection, Renal Failure Gastrointestinal: Yes (MULTIPLE BOWEL SURGERIES/OBSTRUCSTIONS; CHRONIC ABDOMINAL PAIN) Abdominal Hernia, Gastroesophageal Reflux, Obstructive Bowel, Hiatal Hernia, Ulcer Musculoskeletal: Yes Arthritis, Fibromyalgia, Chronic Back Pain Endocrine: Yes Diabetes, Non-Insulin dep HEENT: Yes (GLASSES) Loss of Vision: Denies Hearing Impairment: Denies Cancer: No Psychosocial: Yes (POLYSUBSTANCE ABUSE) Anxiety, Depression Integumentary: Yes (CHRONIC ABDOMINAL WOUND- MRSA) Recent Skin Changes Blood Disorders: No Adverse Reaction/Blood Tranf: No (N/A) Family Medical History Colon cancer G8 BROTHER (PANCREATIC) Dementia 19 MOTHER G8 BROTHER Hypertension 19 MOTHER Myocardial infarction G8 BROTHER Diabetes, Hypertension, Other Conditions/Hx PSH: -PT STATES SHE HAS HAD AT LEAST 33 SURGERIES, WITH AT LEAST 22 OF THEM BEING ON HER ABDOMEN -MULTIPLE EXPLORATORY LAPAROTOMIES FOR BOWEL OBSTRUCTIONS -WOUND DEBRIDEMENTS FOR CHRONIC ABDOMINAL WOUND AND MRSA -HERNIA REPAIR WITH [facility] -12/10/19--RIGHT ULNAR NERVE TRANSPOSITION AND RIGHT CARPAL TUNNEL RELEASE--DR. MACKEY -APPENDECTOMY -CHOLECYSTECTOMY -HYSTERECTOMY/BSO -CARDIAC CATHS--STENT 2013--LAST CATH 03/19/19--NO INTERVENTION -EGD'S WITH ESOPHAGEAL DILATIONS -COLONOSCOPIES -PORTS/REMOVED -CENTRAL LINES/REMOVED Physical Exam Vital Signs Vital Signs - First Documented 03/09/20 14:22 Temp 36.8 Pulse 94 Resp 18 B/P (MAP) 71/44 (53) Pulse Ox 98 O2 Delivery Nasal Cannula O2 Flow Rate 2.00 Capillary Refill : Less Than 3 Seconds Height, Weight, BMI Height: 5'1.00" Weight: 162lbs. 0.0oz. [id number]; 29.00 BMI Method:Stated General Appearance: Other (LETHARGIC, MOANING. PT DOES AWAKEN WITH VERBAL STIMULI AND IS TALKING NORMALLY. NO EVIDENCE OF DISTRESS . ) HEENT: PERRL/EOMI, Other (ORAL MUCOSA DRY) Neck: Normal Inspection Respiratory: No Accessory Muscle Use, No Respiratory Distress, Decreased Breath Sounds (DIMINSHED IN BASES) Cardiovascular: No JVD, No Murmur, Tachycardia Gastrointestinal: Non Tender, Other (ROTUND, FIRM BUT NON TENDER--PT STATES IS NORMAL FOR HER. EXTENSIVE SURGICAL SCARS TO ABDOMEN) Back: No CVA Tenderness Extremity: Pedal Edema (TRACE BILATERALLY) Neurologic/Psychiatric: No Motor/Sensory Deficits, Other (MENTATION ABOVE. ) Skin: Warm/Dry, Pallor, Tattoos/Piercings (TATTOOS) Focused Exam Lactate Level 03/09/20 14:30: Lactic Acid Level 1.71 Lactic Acid Level Laboratory Tests Test 03/09/20 14:30 Lactic Acid Level 1.71 MMOL/L (0.50-2.00) Procedures/Interventions Date of ETT Placement: Feb 03, 2020 Time of ETT Placement: 1358 Progress/Results/Core Measures Suspected Sepsis Recent Fever Within 48 Hours: No Infection Criteria Present: Suspected New Infection New/Unexplained Altered Menta: No Sepsis Screen: No Definite Risk SIRS Temperature: Pulse: 94 Respiratory Rate: 18 Laboratory Tests 03/09/20 14:30: White Blood Count 23.5H Blood Pressure 71 /44 Mean: 53 03/09/20 14:30: Lactic Acid Level 1.71 Laboratory Tests 03/09/20 14:30: Creatinine 2.83H, INR Comment 1.1, Platelet Count 324, Total Bilirubin 0.4 Results/Orders Lab Results Laboratory Tests Test 03/09/20 14:30 03/09/20 14:45 03/09/20 15:07 Range/Units White Blood Count 23.5 H 4.3-11.0 10^3/uL Red Blood Count 3.51 L 4.35-5.85 10^6/uL Hemoglobin 9.6 L 11.5-16.0 G/DL Hematocrit 31 L 35-52 % Mean Corpuscular Volume 90 80-99 FL Mean Corpuscular Hemoglobin 27 25-34 PG Mean Corpuscular Hemoglobin Concent 31 L 32-36 G/DL Red Cell Distribution Width 16.2 H 10.0-14.5 % Platelet Count 324 130-400 10^3/uL Mean Platelet Volume 10.6 H 7.4-10.4 FL Neutrophils (%) (Auto) 88 H 42-75 % Lymphocytes (%) (Auto) 9 L 12-44 % Monocytes (%) (Auto) 3 0-12 % Eosinophils (%) (Auto) 0 0-10 % Basophils (%) (Auto) 0 0-10 % Neutrophils # (Auto) 20.6 H 1.8-7.8 X 10^3 Lymphocytes # (Auto) 2.1 1.0-4.0 X 10^3 Monocytes # (Auto) 0.8 0.0-1.0 X 10^3 Eosinophils # (Auto) 0.1 0.0-0.3 10^3/uL Basophils # (Auto) 0.0 0.0-0.1 10^3/uL Neutrophils % (Manual) 92 % Lymphocytes % (Manual) 6 % Monocytes % (Manual) 2 % Blood Morphology Comment NORMAL Prothrombin Time 14.9 H 12.2-14.7 SEC INR Comment 1.1 0.8-1.4 Activated Partial Thromboplast Time 37 H 24-35 SEC Sodium Level 140 135-145 MMOL/L Potassium Level 5.0 3.6-5.0 MMOL/L Chloride Level 109 H 98-107 MMOL/L Carbon Dioxide Level 19 L 21-32 MMOL/L Anion Gap 12 5-14 MMOL/L Blood Urea Nitrogen 33 H 7-18 MG/DL Creatinine 2.83 H 0.60-1.30 MG/DL Estimat Glomerular Filtration Rate 17 BUN/Creatinine Ratio 12 Glucose Level 105 70-105 MG/DL Lactic Acid Level 1.71 0.50-2.00 MMOL/L Calcium Level 7.2 L 8.5-10.1 MG/DL Corrected Calcium 7.4 L 8.5-10.1 MG/DL Magnesium Level 0.7 *L 1.6-2.4 MG/DL Total Bilirubin 0.4 0.1-1.0 MG/DL Aspartate Amino Transf (AST/SGOT) 25 5-34 U/L Alanine Aminotransferase (ALT/SGPT) 8 0-55 U/L Alkaline Phosphatase 82 40-136 U/L Ammonia 25 11-32 UMOL/L Total Protein 6.3 L 6.4-8.2 GM/DL Albumin 3.8 3.2-4.5 GM/DL TSH [place] Testing 1.20 0.35-4.94 UIU/ML Acetaminophen Level < 10 L 10-30 UG/ML Serum Alcohol < 10 <10 MG/DL Blood Gas Puncture Site LR Blood Gas Patient Temperature 37.5 Arterial Blood pH 7.20 *L 7.37-7.43 Arterial Blood Partial Pressure CO2 50 H 35-45 MMHG Arterial Blood Partial Pressure O2 224 H 79-93 MMHG Arterial Blood HCO3 18 L 23-27 MMOL/L Arterial Blood Total CO2 19.8 L 21.0-31.0 MMOL/L Arterial Blood Oxygen Saturation 99 94-100 % Arterial Blood Base Excess -8.3 L -2.5-2.5 MMOL/L Barber Test YES-POS Blood Gas Ventilator Setting NO Blood Gas Inspired Oxygen 4L Urine Color YELLOW Urine Clarity CLEAR Urine pH 5.5 5-9 Urine Specific [place] 1.020 1.016-1.022 Urine Protein NEGATIVE NEGATIVE Urine Glucose (UA) NEGATIVE NEGATIVE Urine Ketones NEGATIVE NEGATIVE Urine Nitrite NEGATIVE NEGATIVE Urine Bilirubin NEGATIVE NEGATIVE Urine Urobilinogen 0.2 < = 1.0 MG/DL Urine Leukocyte Esterase 2+ H NEGATIVE Urine RBC (Auto) NEGATIVE NEGATIVE Urine RBC NONE /HPF Urine WBC 10-25 H /HPF Urine Squamous Epithelial Cells RARE /HPF Urine Crystals NONE /LPF Urine Bacteria MODERATE H /HPF Urine Casts NONE /LPF Urine Mucus NEGATIVE /LPF Urine Culture Indicated CULTURE PENDING Urine Opiates Screen POSITIVE H NEGATIVE Urine Oxycodone Screen POSITIVE H NEGATIVE Urine Methadone Screen NEGATIVE NEGATIVE Urine Propoxyphene Screen NEGATIVE NEGATIVE Urine Barbiturates Screen NEGATIVE NEGATIVE Ur Tricyclic Antidepressants Screen POSITIVE H NEGATIVE Urine Phencyclidine Screen NEGATIVE NEGATIVE Urine Amphetamines Screen NEGATIVE NEGATIVE Urine Methamphetamines Screen NEGATIVE NEGATIVE Urine Benzodiazepines Screen POSITIVE H NEGATIVE Urine Cocaine Screen NEGATIVE NEGATIVE Urine Cannabinoids Screen NEGATIVE NEGATIVE My Orders Orders - IVONNE BARRTET DO Cbc With Automated Diff (03/09/20 14:33) Comprehensive Metabolic Panel (03/09/20 14:33) Blood Culture (03/09/20 14:33) Sputum Culture (03/09/20 14:33) Urinalysis (03/09/20 14:33) Urine Culture (03/09/20 14:33) Protime With Inr (03/09/20 14:33) Partial Thromboplastin Time (03/09/20 14:33) Chest 1 View, Ap/Pa Only (03/09/20 14:33) Ed Iv/Invasive Line Start (03/09/20 14:33) Ed Iv/Invasive Line Start (03/09/20 14:33) Ekg Tracing (03/09/20 14:33) Vital Signs Adult Sepsis Patie Q15M (03/09/20 14:33) O2 (03/09/20 14:33) Remove Rings In Anticipation O (03/09/20 14:33) Lactic Acid Analyzer (03/09/20 14:33) Ns Iv 1000 Ml (Sodium Chloride 0.9%) (03/09/20 14:33) Monitor-Rhythm Ecg Trace Only (03/09/20 14:33) Acetaminophen (03/09/20 14:33) Alcohol (03/09/20 14:33) Ammonia (03/09/20 14:33) Arterial Blood Gas (03/09/20 14:33) Drug Screen Stat (Urine) (03/09/20 14:33) Magnesium (03/09/20 14:33) Thyroid Analyzer (03/09/20 14:33) Catheter(Urinary) Insert & Ass 03,15 (03/09/20 14:45) Manual Differential (03/09/20 14:30) Magnesium 1 Gm/100 Ml Ivpb (Magnesium Deras (03/09/20 15:30) Cefepime Injection (Maxipime Injection) (03/09/20 15:45) Vancomycin Injection (Vancomycin Injecti (03/09/20 15:45) Norepinephrine 4 Mg/250 Ml (Norepinephri (03/09/20 16:00) Chest 1 View, Ap/Pa Only (03/09/20 15:58) Vancomycin Injection (Vancomycin Injecti (03/09/20 16:15) Magnesium 1 Gm/100 Ml Ivpb (Magnesium Deras (03/09/20 18:15) Medications Given in ED Current Medications Medications Dose Ordered Sig/Alexandru Route Start Time Stop Time Status Last Admin Dose Admin Cefepime HCl 2000 mg/Sterile Water 10 ml @ 200 mls/hr ONCE ONCE IV 03/09/20 15:45 03/09/20 15:47 DC 03/09/20 16:04 200 MLS/HR Vital Signs/I&O 03/09/20 03/09/20 14:22 16:27 Temp 36.8 Pulse 94 95 Resp 18 B/P (MAP) 71/44 (53) Pulse Ox 98 O2 Delivery Nasal Cannula O2 Flow Rate 2.00 Capillary Refill : Less Than 3 Seconds Blood Pressure Mean: 53 Progress Note : Progress Note GIVEN 1 LITER OF FLUIDS, WITH SOME IMPROVEMENT IN BP--LEVOPHED ORDERED, BUT HELD DUE TO SYSTOLIC BP UP TO 102, AND HEART RATE DOWN TO 90'S. AGGRESSIVE FLUID RESU SCITATION WAS HELD DUE TO PT'S POOR RENAL FUNCTION WITH EVIDENCE OF VASCULAR CONGESTION/FLUID OVERLOAD ON CXR PT HAD URINE OUTPUT OF APPROXIMATELY 200 ML O2 SATS REMAINED IN UPPER 90'S ON O2 AT 2L/NC GIVEN IV MAGNESIUM FOR REPLACEMENT GIVEN ZOSYN AND VANCOMYCIN PT SLEPT FOR MOST OF ER STAY, EASILY AWAKENS. NO DETERIORATION IN PT'S CONDITION DURING ER STAY ECG Initial ECG Impression Date: Mar 09, 2020 Initial ECG Impression Time: 14:54 Initial ECG Rate: 93 Initial ECG Rhythm: Normal Sinus Diagnostic Imaging Comments CXR--PER RADIOLOGIST REPORT AT 1544 FINDINGS: The heart size is stable. There is some mild central congestion. No infiltrate is identified. There is no effusion or pneumothorax. No parenchymal consolidation is seen. IMPRESSION: Mild central congestion. No acute infiltrate is identified. Reviewed: Reviewed by Me Departure Communication (Admissions) 1510--CALLED DR. DOHERTY, SURGEON FACE AND FILL PACKER, FOR CENTRAL LINE PLACEMENT--REFUSES TO COME IN TO SEE PT 1517--CALLED DR. PARRISH, SURGEON, HE WILL BE IN TO SEE PT AND PLACE CENTRAL LINE 1527--DR. PARRISH HERE FOR CENTRAL LINE PLACEMENT. 1544--[facility]--SPOKE WITH DR. PERKINS, HE ACCEPTS PT FOR ADMIT/TRANSFER. 1724--CALLED [facility], HAVE BED FOR PT BUT HAVE ADVISED THAT THEIR ICU STAFF IS UNABLE TO TAKE THE PT AT THIS TIME DUE TO LARGE VOLUME OF RECENT ADMITS. WILL CALL BACK WHEN THEY ARE READY FOR PT TO BE TRANSFERRED 1849--EMS HERE AND TRANSFERRING PT NOW, [facility] HAS CALLED AND INFORMED NURSE THAT THEY ARE NOW READY FOR PT TO BE TRANSFERRED Impression Primary Impression: Septic shock Additional Impressions: UTI (urinary tract infection) Acute renal failure Lactic acidosis SEVERE HYPOMAGNESEMIA TRANSIENT ALTERED MENTAL STATUS Acute on chronic respiratory failure Disposition: 02 XFER SHT-TRM HOSP Condition: Improved Transfer Transfer Reason: Exceeds level of care (NEED FOR NEPHROLOGY SERVICES) Transfer Facility: [place], [place] Method of Transfer: EMS Departure-Patient Inst. Referrals: RUDOLPH KENT DO (PCP/Family) Primary Care Physician IVONNE BARRETT DO Mar 09, 2020 15:14
[2020-03-09 15:15] LABS: MAGNESIUM 0.7 MG/DL (1.6-2.4)
[2020-03-09 15:16] LABS: BILIRUBIN,URINE NEGATIVE (NEGATIVE); CLARITY,URINE CLEAR; COLOR,URINE YELLOW; GLUCOSE, URINE (UA) NEGATIVE (NEGATIVE); KETONES,URINE NEGATIVE (NEGATIVE); LEUKOCYTE ESTERASE ,URINE 2+ (NEGATIVE); NITRITE,URINE NEGATIVE (NEGATIVE); PH,URINE 5.5 (5-9); PROTEIN,URINE NEGATIVE (NEGATIVE)
[2020-03-09 15:28] LABS: BACTERIA,URINE MODERATE /HPF; SQUAMOUS EPITHELIAL CELL,UR RARE /HPF
[2020-03-09] MEDS: MAGNESIUM 1 GM/100 ML IVPB 100 ML IV SCH ×2 (15:28→18:32)
--- NOTE | 2020-03-09 15:29 | Diagnostic Imaging Report ---
INDICATION: Altered mental status. TIME OF EXAM: 3:23 PM. COMPARISON: 02/25/2020. FINDINGS: The heart size is stable. There is some mild central congestion. No infiltrate is identified. There is no effusion or pneumothorax. No parenchymal consolidation is seen. IMPRESSION: Mild central congestion. No acute infiltrate is identified. Dictated by: Dictated on workstation # [id number]
[2020-03-09 15:32] LABS: AMPHETAMINE SCREEN, URINE NEGATIVE (NEGATIVE); BARBITURATE SCREEN URINE NEGATIVE (NEGATIVE); BENZODIAZEPINES SCREEN URINE POSITIVE (NEGATIVE); CANNABINOID SCREEN, URINE NEGATIVE (NEGATIVE); COCAINE SCREEN URINE NEGATIVE (NEGATIVE); METHADONE STAT NEGATIVE (NEGATIVE); METHAMPHETAMINE SCREEN URINE S NEGATIVE (NEGATIVE); OPIATE SCREEN URINE POSITIVE (NEGATIVE); OXYCODONE STAT POSITIVE (NEGATIVE); PROPOXYPHENE STAT NEGATIVE (NEGATIVE); TRICYCLIC ANTIDEPRESSANTS SCRE POSITIVE (NEGATIVE)
--- NOTE | 2020-03-09 15:32 | NUR ---
DR PARRISH HER TO PLACE CENTRAL LINE PATIENT GAVE VERBAL AND WRITTEN ORDER TO HAVE DR RENETTA BARRIGA.
[2020-03-09] MEDS ORDERED: CEFEPIME INJECTION 2,000 MG in WATER (STERILE) FOR INJECTION 10 ML IV ONE (15:45)
[2020-03-09] MEDS ORDERED: VANCOMYCIN INJECTION 750 MG in NS (IVPB) 250 ML IV SCH (15:45)
--- NOTE | 2020-03-09 16:09 | NUR ---
NOTIFIED OF TRANSFER
--- NOTE | 2020-03-09 16:18 | NUR ---
DR NENA GORE TO USE CENTRAL LINE.
--- NOTE | 2020-03-09 16:19 | NUR ---
CON'T TO WAIT FOR CALL FOR BED FROM [facility]
[2020-03-09] MEDS: NOREPINEPHRINE 4 MG/250 ML 250 ML IV SCH ×2 (16:27→18:44)
--- NOTE | 2020-03-09 16:29 | Diagnostic Imaging Report ---
HISTORY: Central line placement TECHNIQUE: Single frontal view of the chest. COMPARISON: Radiograph from 3:23 PM on the same day FINDINGS: Lung volumes are normal. No focal consolidation is seen. There is mild central vascular congestion. There may be a minimal left pleural effusion. No pneumothorax is seen. The tip of the right central line projects over the mid SVC. There are curvilinear densities overlying the chest bilaterally, which appear to be previous central lines, as seen on prior exams. IMPRESSION: 1. The right jugular central line projects over the mid SVC. 2. Mild central vascular congestion. Suspect minimal left pleural effusion. Dictated by: Dictated on workstation # [id number]
--- NOTE | 2020-03-09 16:37 | Consultation - Surgery ---
History of Present Illness History of Present Illness Patient Consulted On(pérez/time) 03/09/20 16:32 Date Seen by Provider: Mar 09, 2020 Time Seen by Provider: 16:33 History of Present Illness Consult requested by Dr. Robledo for central line placement for hypotension septic shock seen and evaluated in ed Patient is a 70 year old female who was reported to be found unresponsive by patient . EMS was called and brought her to the emergency department. She was just recently hospitalized at [facility]. Patient currently is lethargic but does answer questions. Does no provide a lot of information though at this time. Patient blood pressure was down in to the 70's systolic. Patient only with I/O access, unable to get peripheral IV's. Patient abdomen appears to be distended but is reported that this is normal for her. Allergies and Home Medications Allergies Coded Allergies: Iodinated Contrast Media (Verified Allergy, Mild, HIVES, 12/08/19) linezolid (Verified Allergy, Mild, HIVE, 12/08/19) Home Medications Albuterol Sulfate 2.5 Mg/3 Ml Vial.neb, 2.5 MG NEB QID PRN for SHORTNESS OF BREATH, (Reported) Albuterol/Ipratropium 4 Gm Aero, 1 PUFF IH QID, (Reported) Alprazolam 1 Mg Tablet, 1 MG PO 0800,1200, (Reported) Alprazolam 1 Mg Tablet, 0.5 MG PO HS, (Reported) Aspirin 81 Mg Tablet.dr, 81 MG PO DAILY, (Reported) Atorvastatin Calcium 10 Mg Tablet, 10 MG PO HS, (Reported) Bethanechol Chloride 10 Mg Tablet, 10 MG PO BID Prescribed by: RANDAL QIU on 01/30/20 1044 Cetirizine HCl 10 Mg Tablet, 10 MG PO DAILY, (Reported) Cyanocobalamin 1,000 Mcg/Ml Inj, 1,000 MCG IM ONCE, (Reported) Cyclobenzaprine HCl 10 Mg Tablet, 10 MG PO TID PRN for MUSCLE SPASMS, (Reported) Dicyclomine HCl 10 Mg Capsule, 10 MG PO BID, (Reported) Fluticasone Propionate 9.9 Ml [place].susp, 1 SPRAY NS DAILY, (Reported) 1 SPRAY EACH NARE DAILY Fluticasone/Salmeterol 1 Each Blst.w.dev, 1 PUFF IH BID, (Reported) Furosemide 20 Mg Tablet, 20 MG PO DAILY, (Reported) Insulin Glargine,Hum.rec.anlog 100 Unit/1 Ml Insuln.pen, 10 UNIT SQ HS, (Reported) Lisinopril 10 Mg Tablet, 10 MG PO DAILY Prescribed by: RANDAL QIU on 01/29/202121 Meclizine HCl 25 Mg Tablet, 25 MG PO TID PRN for VERTIGO, (Reported) Metformin HCl 1,000 Mg Tablet, 1,000 MG PO BID WITH MEALS, (Reported) Metoclopramide HCl 10 Mg Tablet, 10 MG PO QID, (Reported) Montelukast Sodium 10 Mg Tablet, 10 MG PO HS, (Reported) Omeprazole 20 Mg Capsule.dr, 20 MG PO BID, (Reported) Ondansetron 4 Mg Tab.rapdis, 4 MG PO Q6H PRN for NAUSEA/VOMITING-1ST LINE Prescribed by: RANDAL QIU on 01/29/202121 Oxycodone HCl 10 Mg Tablet, 10 MG PO Q6H PRN for PAIN-SEVERE (8-10) Prescribed by: LUKAS NUNES on 02/09/20 1143 Potassium Chloride 10 Meq Tab.er.prt, 10 MEQ PO TID, (Reported) Pregabalin 150 Mg Capsule, 150 MG PO BID, (Reported) Quetiapine Fumarate 50 Mg Tablet, 50 MG PO HS, (Reported) Ranitidine HCl 150 Mg Tablet, 150 MG PO BID, (Reported) Ranolazine 500 Mg Tab.er.12h, 500 MG PO BID, (Reported) Ropinirole HCl 1 Mg Tablet, 1 MG PO HS, (Reported) Sennosides/Docusate Sodium 1 Each Tablet, 1 EA PO BID Prescribed by: RANDAL QIU on 01/29/202121 Tamsulosin HCl 0.4 Mg Cap, 0.4 MG PO DAILY@1800 Prescribed by: RANDAL QIU on 01/29/202121 Patient Home Medication List Home Medication List Reviewed: Yes Past [id number]-Jbwxhd Hx Patient Social History Alcohol Use: Denies Use Number of Drinks Today: GG Recreational Drug Use: No Drug of Choice: hx of polysubstance abuse Smoking Status: Former Smoker Type Used: Cigarettes 2nd Hand Smoke Exposure: Yes Recent Foreign Travel: No Contact w/Someone Who Travel: No Recent Infectious Disease Expo: No Recent Hopitalizations: Yes Immunizations Up To Date Tetanus Booster (TDap): Unknown Date of Pneumonia Vaccine: Sep 16, 2019 Date of Influenza Vaccine: Sep 15, 2019 Seasonal Allergies Seasonal Allergies: Yes Surgeries History of Surgeries: Yes (several exploratomy laparotomies, hernia with mesh) Surgeries: Appendectomy, Coronary Stent, Gallbladder, 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, Vascular Surgery Respiratory History of Respiratory Disorde: Yes (HOME 02- 3L ) Respiratory Disorders: Pneumonia, Chronic Bronchitis, COPD Cardiovascular History of Cardiac Disorders: Yes (CHF) Cardiac Disorders: Chronic Edema/Swelling, High Cholesterol, Hypertension Neurological History of Neurological Disord: Yes Neurological Disorders: Headaches /Migraines, Neuropathy 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 System Hx 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 Disorders: 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 Genitourinary History of Genitourinary Disor: Yes Genitourinary Disorders: Renal Failure Gastrointestinal History of Gastrointestinal Di: Yes (SEVERAL BOWEL OBSTRUCTIONS, chronic abd pain) Gastrointestinal Disorders: Obstructive Bowel, Hiatal Hernia Musculoskeletal History of Musculoskeletal Dis: Yes Musculoskeletal Disorders: Arthritis, Fibromyalgia, Chronic Back Pain Endocrine History of Endocrine Disorders: Yes Endocrine Disorders: Diabetes, Non-Insulin dep HEENT History of HEENT Disorders: Yes (GLASSES) Loss of Vision: Denies Hearing Impairment: Denies Cancer History of Cancer: No Psychosocial History of Psychiatric Problem: Yes Behavioral Health Disorders: Anxiety, Depression Integumentary History of Skin or Integumenta: Yes (CHRONIC ABDOMINAL WOUND- MRSA) Skin/Integumentary Disorders: Recent Skin Changes Blood Transfusions History of Blood Disorders: No Adverse Reaction to a Blood Tr: No (N/A) Reviewed Nursing Assessment Reviewed/Agree w Nursing PMH: Yes Family Medical History Significant Family History: Diabetes, Hypertension, Other Conditions/Hx Family Medial History: Colon cancer G8 BROTHER (PANCREATIC) Dementia 19 MOTHER G8 BROTHER Hypertension 19 MOTHER Myocardial infarction G8 BROTHER Review of Systems-General ROS-Unable to Obtain: unable to provide due to current condition Physical Exam-General Problems Physical Exam Vital Signs Vital Signs - First Documented 03/09/20 14:22 Temp 36.8 Pulse 94 Resp 18 B/P (MAP) 71/44 (53) Pulse Ox 98 O2 Delivery Nasal Cannula O2 Flow Rate 2.00 Capillary Refill : Less Than 3 Seconds General Appearance: other (lethargic) HEENT: PERRL/EOMI, normal ENT inspection Neck: non-tender, supple Respiratory: chest non-tender, no respiratory distress, no accessory muscle use Cardiovascular: regular rate, rhythm Gastrointestinal: non tender, soft, distended, other (midline skin changes) Rectal: deferred Back: no CVA tenderness Extremities: non-tender, normal inspection Neurologic/Psychiatric: No oriented x 3; other (lethargic) Skin: warm/dry Lymphatic: no adenopathy Data Review Labs Laboratory Tests 03/09/20 14:30: White Blood Count 23.5H, Red Blood Count 3.51L, Hemoglobin 9.6L, Hematocrit 31L, Mean Corpuscular Volume 90, Mean Corpuscular Hemoglobin 27, Mean Corpuscular Hemoglobin Concent 31L, Red Cell Distribution Width 16.2H, Platelet Count 324, Mean Platelet Volume 10.6H, Neutrophils (%) (Auto) 88H, Lymphocytes (%) (Auto) 9L, Monocytes (%) (Auto) 3, Eosinophils (%) (Auto) 0, Basophils (%) (Auto) 0, Neutrophils # (Auto) 20.6H, Lymphocytes # (Auto) 2.1, Monocytes # (Auto) 0.8, Eosinophils # (Auto) 0.1, Basophils # (Auto) 0.0, Neutrophils % (Manual) 92, Lymphocytes % (Manual) 6, Monocytes % (Manual) 2, Blood Morphology Comment NORMAL, Prothrombin Time 14.9H, INR Comment 1.1, Activated Partial Thromboplast Time 37H, Sodium Level 140, Potassium Level 5.0, Chloride Level 109H, Carbon Dioxide Level 19L, Anion Gap 12, Blood Urea Nitrogen 33H, Creatinine 2.83H, Estimat Glomerular Filtration Rate 17, BUN/Creatinine Ratio 12, Glucose Level 105, Lactic Acid Level 1.71, Calcium Level 7.2L, Corrected Calcium 7.4L, Magnesium Level 0.7*L, Total Bilirubin 0.4, Aspartate Amino Transf (AST/SGOT) 25, Alanine Aminotransferase (ALT/SGPT) 8, Alkaline Phosphatase 82, Ammonia 25, Total Protein 6.3L, Albumin 3.8, TSH [place] Testing 1.20, Acetaminophen Level < 10L, Serum Alcohol < 10 03/09/20 14:45: Blood Gas Puncture Site LR, Blood Gas Patient Temperature 37.5, Arterial Blood pH 7.20*L, Arterial Blood Partial Pressure CO2 50H, Arterial Blood Partial Pressure O2 224H, Arterial Blood HCO3 18L, Arterial Blood Total CO2 19.8L, Arterial Blood Oxygen Saturation 99, Arterial Blood Base Excess -8.3L, Barber Test YES-POS, Blood Gas Ventilator Setting NO, Blood Gas Inspired Oxygen 4L 03/09/20 15:07: Urine Color YELLOW, Urine Clarity CLEAR, Urine pH 5.5, Urine Specific [place] 1.020, Urine Protein NEGATIVE, Urine Glucose (UA) NEGATIVE, Urine Ketones NEGATIVE, Urine Nitrite NEGATIVE, Urine Bilirubin NEGATIVE, Urine Urobilinogen 0.2, Urine Leukocyte Esterase 2+H, Urine RBC (Auto) NEGATIVE, Urine RBC NONE, Urine WBC 10-25H, Urine Squamous Epithelial Cells RARE, Urine Crystals NONE, Urine Bacteria MODERATEH, Urine Casts NONE, Urine Mucus NEGATIVE, Urine Culture Indicated CULTURE PENDING, Urine Opiates Screen POSITIVEH, Urine Oxycodone Screen POSITIVEH, Urine Methadone Screen NEGATIVE, Urine Propoxyphene Screen NEGATIVE, Urine Barbiturates Screen NEGATIVE, Ur Tricyclic Antidepressants Screen POSITIVEH, Urine Phencyclidine Screen NEGATIVE, Urine Amphetamines Screen NEGATIVE, Urine Methamphetamines Screen NEGATIVE, Urine Benzodiazepines Screen POSITIVEH, Urine Cocaine Screen NEGATIVE, Urine Cannabinoids Screen NEGATIVE Assessment/Plan Assessment/Plan Assessment/Plan septic shock hypotension leukocytosis ckd poor venous access patient hypotensive, poor venous access. place right IJ central line u/s guided chest x ray following placement. SALLY PARRISH DO Mar 09, 2020 16:37
[2020-03-09] MEDS: VANCOMYCIN 1500 MG/NS 500 ML IVPB IV NR ×4 (16:45→18:44)
--- NOTE | 2020-03-09 16:52 | NUR ---
IO REMOVED FROM L LEG Addendum: 03/09/20 at 1709 by PMCCLURE NOREPI PLACED ON HOLD.
--- NOTE | 2020-03-09 17:03 | NUR ---
WAITING FOR CAST TO CALL BACK WITH BED.
--- NOTE | 2020-03-09 17:14 | NUR ---
MONITOR SR EYES CLOSED RESPONDES WHEN NAME CALLED.
--- NOTE | 2020-03-09 18:14 | NUR ---
CALLED AND GAVE UPDATE
[2020-03-09] MEDS ORDERED: MAGNESIUM 1 GM/100 ML IVPB 100 ML IV SCH (18:15)
--- NOTE | 2020-03-09 18:46 | NUR ---
EMS HERE FOR TRANSFER
[2020-03-09 18:47] VITALS: BP 107/60
--- NOTE | 2020-03-09 20:07 | OPERATIVE REPORT ---
DATE OF SERVICE: 03/09/2020 PREOPERATIVE DIAGNOSES: Septic shock, hypotension. POSTOPERATIVE DIAGNOSES: Septic shock, hypotension. PROCEDURE: Right internal jugular vein ultrasound-guided central line placement. SURGEON: Sally Richardson DO ANESTHESIA: 1% lidocaine 3 mL. COMPLICATIONS: None. INDICATIONS: The patient is a 70-year-old female, who presented to the Emergency Department was found by her unresponsive and EMS was called. The patient was transported to the Emergency Department where she was lethargic and patient hypotensive with her systolic pressure reaching down into the 70s systolic. The patient with poor venous access, only having interosseous access. The patient needing central line placed. DESCRIPTION OF PROCEDURE: The patient was prepped and draped in sterile fashion. Timeout was performed. Ultrasound was utilized to locate the right internal jugular vein. Local anesthetic was infiltrated and the right internal jugular vein was then accessed under ultrasound guidance. Dark nonpulsatile blood was withdrawn. A guidewire was inserted through the needle and the needle was removed. A #11 blade scalpel was used to make a small skin incision at the insertion point. Dilator was then advanced over the wire and removed. The triple lumen catheter was advanced over the guidewire and the wire was removed. All ports were accessed and flushed without difficulty. The catheter was secured at approximately 15 cm. The area was washed and dried and sterile bandage was applied. The patient tolerated procedure well without any complications. Chest x-ray pending. Job ID: [id number] DocumentID: [id number] Dictated Date: 03/09/2020 16:49:17 Soc Analyst Date: 03/09/2020 20:06:37 Dictated By: SALLY RICHARDSON DO
== END 2020-03-09 18:52 | disposition short-term general hospital (02) ==
LOC: EDUNIT# 14:21 → ER 14:22
DX: A41.9 Sepsis, unspecified organism (principal); R65.21 Severe sepsis with septic shock; N17.9 Acute kidney failure, unspecified; J96.20 Acute and chronic respiratory failure, unspecified whether with hypoxia or hypercapnia; N39.0 Urinary tract infection, site not specified; E87.2 Acidosis; E83.42 Hypomagnesemia; R41.82 Altered mental status, unspecified; J44.9 Chronic obstructive pulmonary disease, unspecified; I11.0 Hypertensive heart disease with heart failure; I50.9 Heart failure, unspecified; I25.10 Atherosclerotic heart disease of native coronary artery without angina pectoris; E78.00 Pure hypercholesterolemia, unspecified; E11.40 Type 2 diabetes mellitus with diabetic neuropathy, unspecified; K21.9 Gastro-esophageal reflux disease without esophagitis; F41.9 Anxiety disorder, unspecified; F32.9 Major depressive disorder, single episode, unspecified; F17.210 Nicotine dependence, cigarettes, uncomplicated; Z95.5 Presence of coronary angioplasty implant and graft; Z88.8 Allergy status to other drugs, medicaments and biological substances; Z91.041 Radiographic dye allergy status; Z79.82 Long term (current) use of aspirin; Z79.4 Long term (current) use of insulin; Z79.51 Long term (current) use of inhaled steroids
CPT/HCPCS: 36415; 36680; 51702; 71045; 80053; 80306; 80320; 80329; 81000; 82140; 82805; 83605; 83735; 84443; 85007; 85027; 85610; 85730; 87040; 87077; 87088; 87186; 93005; 93041

== ENCOUNTER → 2020-03-31 | Outpatient (CLI) | payer MEDICARE, MEDICAID | LOC: LAB 16:12 | PROVIDERS: ATTEND Internal Medicine | DX: K52.1 Toxic gastroenteritis and colitis (principal); T36.95XA Adverse effect of unspecified systemic antibiotic, initial encounter ==

== ENCOUNTER 2020-07-23 10:57 | Inpatient (IN) | payer MEDICARE, MEDICAID ==
[~2020-07-23] VITALS: Ht 157 cm; Wt 77.3 kg
[2020-07-23] VITALS (9 sets, daily range): BP systolic 73–129; BP diastolic 37–90
[~2020-07-23 10:57] MED LIST changes: +ASPI-1238 PO; -ASPI-983 PO; +ATOR20TA66 PO; +DICL50TA4 PO; +FAMO20TA3 PO; +MIRT15TA6 PO; +PRED10TA22 PO; +PREG50CA65 PO; -RANO500T5 PO; +RANO500T6 PO; +TRM50T PO
--- NOTE | 2020-07-23 11:13 | ED Abdominal Pain ---
General Stated Complaint: BLOCKED BOWEL Source of Information: Patient Exam Limitations: No Limitations History of Present Illness Date Seen by Provider: Jul 23, 2020 Time Seen by Provider: 11:10 Initial Comments To ER with reports of possible "blocked bowel". She's had surgery for this before secondary to adhesions. She denies nausea or vomiting, does report abdominal distention. Last bowel movement was 2 days ago. No fever no chills. She has COPD and is oxygen dependent at 3 L/m, she does feel more short of breath than usual today. Timing/Duration: 1-2 Days Severity/Quality: Moderate Location: Generalized Abdomen Radiation: No Radiation Activities at Onset: None Associated Symptoms: Nausea/Vomiting Allergies and Home Medications Allergies Coded Allergies: Iodinated Contrast Media (Verified Allergy, Mild, HIVES, 12/08/19) linezolid (Verified Allergy, Mild, HIVE, 12/08/19) Home Medications Albuterol Sulfate 2.5 Mg/3 Ml Vial.neb, 2.5 MG NEB QID PRN for SHORTNESS OF BREATH, (Reported) Albuterol/Ipratropium 4 Gm Aero, 1 PUFF IH QID, (Reported) Aspirin 81 Mg Tablet.dr, 81 MG PO DAILY, (Reported) Atorvastatin Calcium 20 Mg Tablet, 20 MG PO HS, (Reported) Cetirizine HCl 10 Mg Tablet, 10 MG PO DAILY, (Reported) Cyclobenzaprine HCl 10 Mg Tablet, 10 MG PO TID, (Reported) Diclofenac Potassium 50 Mg Tablet, 50 MG PO BID, (Reported) Dicyclomine HCl 10 Mg Capsule, 10 MG PO BID, (Reported) Famotidine 20 Mg Tablet, 20 MG PO BID, (Reported) Fluticasone Propionate 9.9 Ml Mertens.susp, 1 SPRAY NS DAILY, (Reported) 1 SPRAY EACH NARE DAILY Fluticasone/Salmeterol 1 Each Blst.w.dev, 1 PUFF IH BID, (Reported) Furosemide 20 Mg Tablet, 20 MG PO DAILY, (Reported) Insulin Glargine,Hum.rec.anlog 100 Unit/1 Ml Insuln.pen, 10 UNIT SQ HS, (Reported) Lisinopril 5 Mg Tablet, 5 MG PO DAILY, (Reported) Meclizine HCl 25 Mg Tablet, 25 MG PO TID PRN for VERTIGO, (Reported) Metformin HCl 1,000 Mg Tablet, 1,000 MG PO BID WITH MEALS, (Reported) Metoclopramide HCl 10 Mg Tablet, 10 MG PO QID, (Reported) Mirtazapine 15 Mg Tablet, 15 MG PO HS, (Reported) Montelukast Sodium 10 Mg Tablet, 10 MG PO HS, (Reported) Omeprazole 20 Mg Capsule.dr, 20 MG PO BID, (Reported) Potassium Chloride 10 Meq Tab.er.prt, 10 MEQ PO TID, (Reported) Prednisone 10 Mg Tab.ds.pk, 10 MG PO DAILY Take 6 tabs(60mg)daily,decrease by 1 tab(10MG)daily. Prescribed by: LUKAS NUNES on 07/16/20 1409 Pregabalin 50 Mg Capsule, 50 MG PO TID, (Reported) Quetiapine Fumarate 50 Mg Tablet, 50 MG PO HS, (Reported) Ranolazine 500 Mg Tab.er.12h, 500 MG PO BID, (Reported) Ropinirole HCl 1 Mg Tablet, 1 MG PO HS, (Reported) Tramadol HCl 50 Mg Tablet, 50 MG PO Q4H PRN for PAIN-MODERATE (5-7), (Reported) Patient Home Medication List Home Medication List Reviewed: Yes Review of Systems Review of Systems Constitutional: see HPI; No chills, No fever EENTM: No Symptoms Reported Respiratory: No Symptoms Reported Cardiovascular: See HPI Gastrointestinal: Denies No Symptoms Reported; See HPI, Abdominal Pain; Denies Diarrhea, Denies Nausea, Denies Vomiting Genitourinary: No Symptoms Reported Musculoskeletal: no symptoms reported Skin: no symptoms reported Psychiatric/Neurological: No Symptoms Reported Endocrine: No Symptoms Reported Hematologic/Lymphatic: No Symptoms Reported Past Nonblgw-Yymmba-Vgmstw Hx Patient Social History Alcohol Beverage of Choice: Rum, Whiskey, Oto, Vodka Drug of Choice: POLYSUBSTANCE ABUSE-PAUL RX DRUGS/OPIATES-UDS + FOR PCP & COCAINE 02/24/20 Type Used: Cigarettes 2nd Hand Smoke Exposure: Yes Recent Hopitalizations: Yes Immunizations Up To Date Tetanus Booster (TDap): Unknown Date of Pneumonia Vaccine: Sep 16, 2019 Date of Influenza Vaccine: Sep 15, 2019 Seasonal Allergies Seasonal Allergies: Yes Past Medical History Surgeries: Yes Abdominal, Appendectomy, Gallbladder, Orthopedic Respiratory: Yes Chronic Bronchitis, COPD Currently Using CPAP: No Currently Using BIPAP: No Cardiac: Yes Chronic Edema/Swelling, High Cholesterol, Hypertension Neurological: Yes Headaches /Migraines, Neuropathy 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 Disorders: No 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, Menopausal Genitourinary: No Gastrointestinal: Yes (PSBO) Abdominal Hernia, Hiatal Hernia, Ulcer Musculoskeletal: Yes Arthritis Endocrine: Yes Diabetes, Non-Insulin dep HEENT: Yes (GLASSES) Loss of Vision: Denies Hearing Impairment: Denies Cancer: No Psychosocial: Yes (POLYSUBSTANCE ABUSE) Anxiety, Depression Integumentary: Yes (CHRONIC ABDOMINAL WOUND- MRSA) Blood Disorders: No Adverse Reaction/Blood Tranf: No (N/A) Family Medical History Colon cancer G8 BROTHER (PANCREATIC) Dementia 19 MOTHER G8 BROTHER Hypertension 19 MOTHER Myocardial infarction G8 BROTHER Heart Disease, Diabetes, Hypertension, Other Conditions/Hx PSH: -PT STATES SHE HAS HAD AT LEAST 33 SURGERIES, WITH AT LEAST 22 OF THEM BEING ON HER ABDOMEN -MULTIPLE EXPLORATORY LAPAROTOMIES FOR BOWEL OBSTRUCTIONS -WOUND DEBRIDEMENTS FOR CHRONIC ABDOMINAL WOUND AND MRSA -HERNIA REPAIR WITH [facility] -12/10/19--RIGHT ULNAR NERVE TRANSPOSITION AND RIGHT CARPAL TUNNEL RELEASE--DR. MACKEY -APPENDECTOMY -CHOLECYSTECTOMY -HYSTERECTOMY/BSO -CARDIAC CATHS--STENT 2013--LAST CATH 03/19/19--NO INTERVENTION -EGD'S WITH ESOPHAGEAL DILATIONS -COLONOSCOPIES -PORTS/REMOVED -CENTRAL LINES/REMOVED Physical Exam Vital Signs Vital Signs - First Documented 07/23/20 07/23/20 11:05 11:15 Temp 36.6 Pulse 80 Resp 22 B/P (MAP) 176/83 (114) Pulse Ox 96 O2 Delivery Nasal Cannula O2 Flow Rate 3.00 FiO2 2 Capillary Refill : Height/Weight/BMI Height: 5'1.00" Weight: 162lbs. 0.0oz. 73.756641ou; 28.00 BMI Method:Stated General Appearance: WD/WN, no apparent distress HEENT: PERRL/EOMI, normal ENT inspection Respiratory: no respiratory distress, no accessory muscle use, wheezing Cardiovascular: regular rate, rhythm, no murmur Gastrointestinal: distended, other (hypoactive bowel sounds with abdominal distention) Extremities: normal range of motion, non-tender, pedal edema Neurologic/Psychiatric: alert, normal mood/affect, oriented x 3 Skin: normal color, warm/dry Focused Exam Lactate Level 07/23/20 12:14: Lactic Acid Level 2.63*H Lactic Acid Level Laboratory Tests Test 07/23/20 12:14 Lactic Acid Level 2.63 MMOL/L (0.50-2.00) *H Procedures/Interventions Date of ETT Placement: Feb 03, 2020 Time of ETT Placement: 1358 Progress/Results/Core Measures Results/Orders Lab Results Laboratory Tests Test 07/23/20 11:25 07/23/20 12:14 07/23/20 13:03 Range/Units White Blood Count 30.4 *H 4.3-11.0 10^3/uL Red Blood Count 3.93 L 4.35-5.85 10^6/uL Hemoglobin 11.1 L 11.5-16.0 G/DL Hematocrit 35 35-52 % Mean Corpuscular Volume 90 80-99 FL Mean Corpuscular Hemoglobin 28 25-34 PG Mean Corpuscular Hemoglobin Concent 31 L 32-36 G/DL Red Cell Distribution Width 15.3 H 10.0-14.5 % Platelet Count 317 130-400 10^3/uL Mean Platelet Volume 10.5 H 7.4-10.4 FL Neutrophils (%) (Auto) 90 H 42-75 % Lymphocytes (%) (Auto) 4 L 12-44 % Monocytes (%) (Auto) 6 0-12 % Eosinophils (%) (Auto) 0 0-10 % Basophils (%) (Auto) 0 0-10 % Neutrophils # (Auto) 27.2 H 1.8-7.8 X 10^3 Lymphocytes # (Auto) 1.4 1.0-4.0 X 10^3 Monocytes # (Auto) 1.8 H 0.0-1.0 X 10^3 Eosinophils # (Auto) 0.1 0.0-0.3 10^3/uL Basophils # (Auto) 0.0 0.0-0.1 10^3/uL Neutrophils % (Manual) 77 % Lymphocytes % (Manual) 6 % Monocytes % (Manual) 4 % Eosinophils % (Manual) 1 % Band Neutrophils 12 % Anisocytosis SLIGHT Sodium Level 134 L 135-145 MMOL/L Potassium Level 5.3 H 3.6-5.0 MMOL/L Chloride Level 90 L 98-107 MMOL/L Carbon Dioxide Level 27 21-32 MMOL/L Anion Gap 17 H 5-14 MMOL/L Blood Urea Nitrogen 28 H 7-18 MG/DL Creatinine 1.89 H 0.60-1.30 MG/DL Estimat Glomerular Filtration Rate 26 BUN/Creatinine Ratio 15 Glucose Level 263 H 70-105 MG/DL Calcium Level 8.3 L 8.5-10.1 MG/DL Corrected Calcium 8.4 L 8.5-10.1 MG/DL Total Bilirubin 0.8 0.1-1.0 MG/DL Aspartate Amino Transf (AST/SGOT) 223 H 5-34 U/L Alanine Aminotransferase (ALT/SGPT) 67 H 0-55 U/L Alkaline Phosphatase 193 H 40-136 U/L Total Protein 6.5 6.4-8.2 GM/DL Albumin 3.9 3.2-4.5 GM/DL Lipase 2368 H 8-78 U/L Blood Gas Puncture Site RIGHT RADIAL Blood Gas Patient Temperature 37 Arterial Blood pH 7.30 *L 7.37-7.43 Arterial Blood Partial Pressure CO2 71 *H 35-45 MMHG Arterial Blood Partial Pressure O2 60 L 79-93 MMHG Arterial Blood HCO3 34 H 23-27 MMOL/L Arterial Blood Total CO2 36.1 H 21.0-31.0 MMOL/L Arterial Blood Oxygen Saturation 83 L 94-100 % Arterial Blood Base Excess 7.6 H -2.5-2.5 MMOL/L Barber Test POSITIVE Blood Gas Ventilator Setting NO Blood Gas Inspired Oxygen 3 L Lactic Acid Level 2.63 *H 0.50-2.00 MMOL/L Urine Color YELLOW Urine Clarity CLEAR Urine pH 5.0 5-9 Urine Specific [place] >=1.030 1.016-1.022 Urine Protein 1+ H NEGATIVE Urine Glucose (UA) NEGATIVE NEGATIVE Urine Ketones TRACE H NEGATIVE Urine Nitrite NEGATIVE NEGATIVE Urine Bilirubin 2+ H NEGATIVE Urine Urobilinogen 1.0 < = 1.0 MG/DL Urine Leukocyte Esterase NEGATIVE NEGATIVE Urine RBC (Auto) NEGATIVE NEGATIVE Urine RBC 0-2 /HPF Urine WBC 0-2 /HPF Urine Squamous Epithelial Cells 0-2 /HPF Urine Crystals PRESENT H /LPF Urine Amorphous Sediment FEW BERNICE URATES H /LPF Urine Bacteria TRACE /HPF Urine Casts PRESENT /LPF Urine Hyaline Casts 2-5 H /LPF Urine Mucus NEGATIVE /LPF Urine Culture Indicated NO My Orders Orders - RICHARD MCGOVERN APRN Ct Abdomen/Pelvis Wo (07/23/20 11:08) Cbc With Automated Diff (07/23/20 11:08) Comprehensive Metabolic Panel (07/23/20 11:08) Lipase (07/23/20 11:08) Ns Iv 500 Ml (Sodium Chloride 0.9%) (07/23/20 11:15) Fentanyl Injection (Sublimaze Injection (07/23/20 11:15) Albuterol/Ipra Inhalation Soln (Duoneb I (07/23/20 11:15) Svn Small Volume Nebulizer (07/23/20 11:08) Manual Differential (07/23/20 11:25) Chest 1 View, Ap/Pa Only (07/23/20 12:01) Piperacillin Sodium/Tazobactam (Zosyn Vi (07/23/20 12:15) Blood Culture (07/23/20 12:01) Lactic Acid Analyzer (07/23/20 12:01) Bipap (Bilevel) Set Up (07/23/20 12:01) Arterial Blood Gas (07/23/20 12:12) Ng Tube Insert & Assessment (07/23/20 12:33) Fentanyl Injection (Sublimaze Injection (07/23/20 12:45) Diatrizoate Meglum/Sodium 37% (Gastrogra (07/23/20 12:45) Chest 1 View, Ap/Pa Only (07/23/20 12:45) Arterial Blood Draw (07/23/20 ) Ua Culture If Indicated (07/23/20 13:06) Medications Given in ED Current Medications Medications Dose Ordered Sig/Alexandru Route Start Time Stop Time Status Last Admin Dose Admin Albuterol/ Ipratropium 3 ml ONCE ONCE INH 07/23/20 11:15 07/23/20 11:16 DC 07/23/20 11:17 3 ML Diatrizoate Meglum/ Diatrizoate Sod 30 ml ONCE ONCE PO 07/23/20 12:45 07/23/20 12:46 DC 07/23/20 12:38 30 ML Fentanyl Citrate 50 mcg ONCE ONCE IVP 07/23/20 11:15 07/23/20 11:16 DC 07/23/20 11:32 50 MCG Fentanyl Citrate 50 mcg ONCE ONCE IVP 07/23/20 12:45 07/23/20 12:46 DC 07/23/20 12:37 50 MCG Piperacillin Sod/ Tazobactam Sod 4.5 gm/Sodium Chloride 100 ml @ 200 mls/hr ONCE ONCE IV 07/23/20 12:15 07/23/20 12:44 DC 07/23/20 12:38 200 MLS/HR Vital Signs/I&O 07/23/20 07/23/20 07/23/20 07/23/20 11:05 11:15 11:56 12:53 Temp 36.6 Pulse 80 74 Resp 22 B/P (MAP) 176/83 (114) Pulse Ox 96 96 99 96 O2 Delivery Nasal Cannula Nasal Cannula NIV Bilevel O2 Flow Rate 3.00 2.00 45.00 FiO2 2 Diagnostic Imaging Diagonstic Imaging: Xray Comments NAME: REGI [facility] REC#: [id number] PT STATUS: REG ER : 1950 PHYSICIAN: RICHARD MCGOVERN PLAST[employer] ENGINEERING TEACHER ADMIT DATE: 07/23/20/ER Draft Date of Exam:07/23/20 CT ABDOMEN/PELVIS WO CT ABDOMEN/PELVIS WO TECHNIQUE: Unenhanced CT imaging of the abdomen and pelvis was performed. 2-D reformats are created and submitted for interpretation. Automatic exposure controls were utilized to optimize patient dose. INDICATION: Bowel obstruction, abdominal distention. COMPARISON: CT abdomen and pelvis of 02/24/2020 FINDINGS: Evaluation of the abdominal viscera is mildly limited without contrast. Lower chest: The lung bases are clear. No pericardial or pleural effusion. Peritoneum: No free intraperitoneal air or fluid. Liver and biliary system: Unenhanced liver is normal. Cholecystectomy. No pathologic biliary dilatation. Spleen and Pancreas: Spleen is normal. Unenhanced pancreas is grossly normal. Adrenals: Normal. tract: No renal or ureteral calculi. No obstructive uropathy. 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. No concerning adnexal mass. GI tract: Massive distention of the stomach predominantly filled with air and a small amount lf contrast material. Marked small bowel dilatation is greatest proximally measuring up to 4.5 cm. The dilated loops of bowel converge to a central point in the anterior aspect of the lower abdomen beneath the umbilicus and likely is due to adhesions in this region. The colon is predominantly decompressed. Vasculature and Lymph nodes: Normal caliber aorta. No abdominal or pelvic lymphadenopathy. Musculoskeletal: No concerning osseous lesion. IMPRESSION: 1. High-grade small bowel obstruction with the transition point in the anterior aspect of the abdomen just beneath the umbilicus. At this site, the majority of the small bowel loops converge and is highly suggestive of adhesions. 2. Marked distention of the stomach with air. 3. No free intraperitoneal air or abscess. Dictated on workstation # [id number] Dict: 07/23/20 1245 Trans: 07/23/20 1255 CVB [id number] Interpreted by: DAILY ZHANG MD Electronically signed by: Departure Communication (Admissions) 1202-patient sitting up in bed, tachypneic, loud crackles on exhalation and in respiratory distress. Asked if she wanted ventilator if she needs it and she states she does not want to be down her throat or the ventilator but she would a gree to using C Pap or BiPAP. Asked her if her heart stops does she want us to do CPR or let her naturally and she states "let me go". She is alert and capable of making this decision. Bipap started at 45%, 10/16 and pt reports symptomatic improvement. 1340-still on BiPAP, nasogastric tube inserted. Abdomen remains very firm, spoke with Dr. DOHERTY and Dr. Tripathi, will admit to ICU. is at the bedside. I discussed with the patient that she might not survive this while the was at the bedside and she states "oh well". Trying to keep her comfortable with fentanyl, this does work well but only provide short-term relief so we are re- dosing that quite frequently. 1412-patient now states that she does want the ventilator if needed but still does not want to be resuscitated if her heart stops. We will keep her DO NOT RESUSCITATE status. At this time she is on BiPAP and mentating well though she is having a lot of pain. I think we can keep the course for right now, maintain her on BiPAP but I did discuss with her and that she certainly might need intubation before the day is over. They're both agreeable with this plan. Both agreeable to remain DO NOT RESUSCITATE status. As of right now the nasogastric tube is not in. It seems as though we are hitting some resistance at around the mid to distal esophagus. 3 of us have tried to place this without success. Discussed with Dr. DOHERTY, might consider endoscopic decompression. Impression Primary Impression: Bowel obstruction Qualified Codes: K56.50 - Intestinal adhesions [bands], unspecified as to partial versus complete obstruction Additional Impression: Acute on chronic respiratory failure Qualified Codes: J96.22 - Acute and chronic respiratory failure with hypercapnia Disposition: ADMITTED INPATIENT Condition: Critical Admissions Decision to Admit Reason: Admit from ER (General) Decision to Admit/Date: Jul 23, 2020 Time/Decision to Admit Time: 13:41 Departure-Patient Inst. Referrals: RUDOLPH KENT DO (PCP/Family) Primary Care Physician RICHARD MCGOVERN APRN Jul 23, 2020 11:13
[2020-07-23] MEDS ORDERED: fentaNYL INJECTION 100 MCG/2 ML AMP IVP ONE ×3 (11:15→13:45)
[2020-07-23] MEDS ORDERED: NS IV 500 ML 500 ML IV SCH (11:15)
[2020-07-23] MEDS ORDERED: RT-ALBUTEROL/IPRATROPIUM 3 ML (DUONEB) VIAL INH ONE (11:15)
[2020-07-23 11:33] LABS: BASOPHILS % (AUTO) 0 % (0-10); EOSINOPHILS # (AUTO) 0.1 10^3/uL (0.0-0.3); EOSINOPHILS % (AUTO) 0 % (0-10); HEMATOCRIT 35 % (35-52); HEMOGLOBIN 11.1 G/DL (11.5-16.0); LYMPHOCYTES # (AUTO) 1.4 X 10^3 (1.0-4.0); LYMPHOCYTES % (AUTO) 4 % (12-44); MEAN CORPUSCULAR HEMOGLOBIN 28 PG (25-34); MEAN CORPUSCULAR HGB CONC 31 G/DL (32-36); MEAN CORPUSCULAR VOLUME 90 FL (80-99); MEAN PLATELET VOLUME 10.5 FL (7.4-10.4); MONOCYTES # (AUTO) 1.8 X 10^3 (0.0-1.0); MONOCYTES % (AUTO) 6 % (0-12); NEUTROPHILS # (AUTO) 27.2 X 10^3 (1.8-7.8); NEUTROPHILS % (AUTO) 90 % (42-75); PLATELET COUNT 317 10^3/uL (130-400)
[2020-07-23 11:35] LABS: WHITE BLOOD COUNT 30.4 10^3/uL (4.3-11.0)
[2020-07-23 11:44] LABS: ALBUMIN 3.9 GM/DL (3.2-4.5); POTASSIUM 5.3 MMOL/L (3.6-5.0)
[2020-07-23 11:45] LABS: CALCIUM 8.3 MG/DL (8.5-10.1)
[2020-07-23 11:46] LABS: TOTAL PROTEIN 6.5 GM/DL (6.4-8.2)
[2020-07-23 11:48] LABS: BILIRUBIN,TOTAL 0.8 MG/DL (0.1-1.0)
[2020-07-23 11:50] LABS: BAND NEUTROPHILS 12 %; CREATININE SERUM 1.89 MG/DL (0.60-1.30); LYMPHOCYTES % (MANUAL) 6 %; NEUTROPHILS % (MANUAL) 77 %
[2020-07-23 11:51] LABS: ANISOCYTOSIS SLIGHT; EOSINOPHILS % (MANUAL) 1 %; MONOCYTES % (MANUAL) 4 %
[2020-07-23] MEDS ORDERED: PIPERACILLIN SODIUM/TAZOBACTAM 4.5 GM in NS (IVPB) 100 ML IV ONE (12:15)
[2020-07-23 12:21] LABS: ABG BASE EXCESS 7.6 MMOL/L (-2.5-2.5); ABG OXYGEN SATURATION 83 % (94-100); ABG PO2 60 MMHG (79-93); ABG TCO2 36.1 MMOL/L (21.0-31.0)
[2020-07-23 12:25] LABS: ABG PCO2 71 MMHG (35-45); ALLENS TEST POSITIVE; INSPIRED O2 3 L; PATIENT TEMP 37; VENTILATOR NO
[2020-07-23] MEDS ORDERED: DIATRIZOATE MEGLUM/SODIUM 37% 120 ML (GASTROGRAFIN) PO ONE (12:45)
--- NOTE | 2020-07-23 12:49 | Diagnostic Imaging Report ---
EXAMINATION: Chest 1 view HISTORY: Cough. Shortness of breath. COMPARISON: 07/15/2020. FINDINGS: Interval decrease in lung volumes. There has also been interval development of marked gaseous distention of the stomach resulting in elevation of the left hemidiaphragm. No focal consolidations are seen. No large pleural effusion or pneumothorax. Stable cardiac silhouette. IMPRESSION: 1. Interval development of decreased lung volumes, likely secondary to the marked gaseous distention of the stomach resulting in elevation of the left hemidiaphragm. 2. No focal consolidation or mass. Dictated by: Dictated on workstation # [id number]
--- NOTE | 2020-07-23 12:55 | Diagnostic Imaging Report ---
CT ABDOMEN/PELVIS WO TECHNIQUE: Unenhanced CT imaging of the abdomen and pelvis was performed. 2-D reformats are created and submitted for interpretation. Automatic exposure controls were utilized to optimize patient dose. INDICATION: Bowel obstruction, abdominal distention. COMPARISON: CT abdomen and pelvis of 02/24/2020 FINDINGS: Evaluation of the abdominal viscera is mildly limited without contrast. Lower chest: The lung bases are clear. No pericardial or pleural effusion. Peritoneum: No free intraperitoneal air or fluid. Liver and biliary system: Unenhanced liver is normal. Cholecystectomy. No pathologic biliary dilatation. Spleen and Pancreas: Spleen is normal. Unenhanced pancreas is grossly normal. Adrenals: Normal. tract: No renal or ureteral calculi. No obstructive uropathy. 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. No concerning adnexal mass. GI tract: Massive distention of the stomach predominantly filled with air and a small amount lf contrast material. Marked small bowel dilatation is greatest proximally measuring up to 4.5 cm. The dilated loops of bowel converge to a central point in the anterior aspect of the lower abdomen beneath the umbilicus and likely is due to adhesions in this region. The colon is predominantly decompressed. Vasculature and Lymph nodes: Normal caliber aorta. No abdominal or pelvic lymphadenopathy. Musculoskeletal: No concerning osseous lesion. IMPRESSION: 1. High-grade small bowel obstruction with the transition point in the anterior aspect of the abdomen just beneath the umbilicus. At this site, the majority of the small bowel loops converge and is highly suggestive of adhesions. 2. Marked distention of the stomach with air. 3. No free intraperitoneal air or abscess. Dictated by: Dictated on workstation # [id number]
[2020-07-23 13:11] LABS: CLARITY,URINE CLEAR; COLOR,URINE YELLOW; GLUCOSE, URINE (UA) NEGATIVE (NEGATIVE); KETONES,URINE TRACE (NEGATIVE); LEUKOCYTE ESTERASE ,URINE NEGATIVE (NEGATIVE); NITRITE,URINE NEGATIVE (NEGATIVE); PROTEIN,URINE 1+ (NEGATIVE)
--- NOTE | 2020-07-23 13:19 | NUR ---
NG ADJUSTED BY Sushil MCGOVERN POST XRAYS.
[2020-07-23 13:37] LABS: BACTERIA,URINE TRACE /HPF; RBC,URINE 0-2 /HPF; SQUAMOUS EPITHELIAL CELL,UR 0-2 /HPF; WBC,URINE 0-2 /HPF
[2020-07-23 13:38] LABS: AMORPHOUS SEDIMENT,UR FEW AMOR URATES /LPF
--- NOTE | 2020-07-23 13:42 | Diagnostic Imaging Report ---
EXAMINATION: Chest 1 view HISTORY: Cough. NG tube placement. COMPARISON: Chest radiograph on 07/23/2020 at 12:30 PM FINDINGS: There has been interval placement of an enteric tube. The tip is midline overlying the distended stomach. Stable low lung volumes. No focal consolidation. No large pleural effusion or pneumothorax. IMPRESSION: 1. Placement of enteric tube with the tip midline overlying the distended stomach. Recommend advancing 5 cm as this may not be completely within the stomach lumen and may reside in the distal esophagus. Dictated by: Dictated on workstation # [id number]
[2020-07-23] MEDS ORDERED: morphine INJ 10 MG/ML 1ML (SYR OR VIAL) IVP STA (14:00)
[2020-07-23] MEDS ORDERED: LACTATED RINGERS 1,000 ML IV ONE (15:04)
[2020-07-23] MEDS ORDERED: CATHETER FLUSH 10 ML SYR IV PRN (15:15)
[2020-07-23] MEDS ORDERED: fentaNYL INJECTION 100 MCG/2 ML AMP IV PRN (15:15)
[2020-07-23] MEDS ORDERED: PIPERACILLIN/TAZOBACTAM (BULK) 4.5 GM in NS (IVPB) 100 ML IV SCH (15:30)
--- NOTE | 2020-07-23 15:41 | History & Physical-Hospitalist ---
History of Present Illness HPI/Chief Complaint patient is a 70-year-old female with a past medical history of COPD, CHF, hypertension, small bowel obstruction who presented to the ER due to abdominal distention and pain. She states that her symptoms started 2 days ago. Her last BM was 2-3 days ago and was normal. CT abdomen showed high grade bowel obstruction with massive distention of her stomach. She reports this is consistent with her previous SBO. NGT placement was attempted multiple times in the ER and was unsuccessful. Surgery has been consulted for evaluation. Source: patient Date Seen 07/23/20 Time Seen by a Provider: 15:32 Attending Physician Artemio Tripathi MD PCP Addy Knight DO Referring Physician Date of Admission Jul 23, 2020 at 13:22 Home Medications & Allergies Home Medications Reviewed patient Home Medication Reconciliation performed by pharmacy medication reconciliations microbiology technician and/or nursing. Patients Allergies have been reviewed. Allergies Allergies Coded Allergies Iodinated Contrast Media (Verified Allergy, Mild, HIVES, 12/08/19) linezolid (Verified Allergy, Mild, HIVE, 12/08/19) Past Eqhamfi-Ucbflw-Lowznr Hx Past Med/Social Hx: Reviewed Nursing Past Med/Soc Hx Patient Social History Marrital Status: Alcohol Use: Denies Use Alcohol Beverage of Choice: Rum, Whiskey, [place], Vodka Recreational Drug Use: No Drug of Choice: POLYSUBSTANCE ABUSE-PAUL RX DRUGS/OPIATES-UDS + FOR PCP & COCAINE 02/24/20 Smoking Status: Current Everyday Smoker Type Used: Cigarettes 2nd Hand Smoke Exposure: Yes Recent Foreign Travel: No Contact w/other who traveled: No Recent Hopitalizations: Yes Recent Infectious Disease Expo: No Immunizations Up To Date Tetanus Booster (TDap): Unknown Date of Pneumonia Vaccine: Sep 16, 2019 Date of Influenza Vaccine: Sep 15, 2019 Seasonal Allergies Seasonal Allergies: Yes Past Medical History Surgeries: Abdominal, Appendectomy, Gallbladder, Orthopedic Respiratory: Asthma, Chronic Bronchitis, COPD, Emphysema, Pneumonia Currently Using CPAP: No Currently Using BIPAP: No Cardiac: Chronic Edema/Swelling, High Cholesterol, Hypertension Neurological: Headaches /Migraines, Neuropathy 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: No 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, Menopausal Genitourinary: Bladder Infection, Renal Failure Gastrointestinal: Abdominal Hernia, Hiatal Hernia, Ulcer Musculoskeletal: Arthritis Endocrine: Diabetes, Non-Insulin dep Loss of Vision: Denies Hearing Impairment: Denies Psychosocial: Anxiety, Depression Skin/Integumentary: Recent Skin Changes History of Blood Disorders: No Adverse Reaction to Blood [place]: No (N/A) Family History Reviewed Nursing Family Hx Colon cancer G8 BROTHER (PANCREATIC) Dementia 19 MOTHER G8 BROTHER Hypertension 19 MOTHER Myocardial infarction G8 BROTHER Heart Disease, Diabetes, Hypertension, Other Conditions/Hx PSH: -PT STATES SHE HAS HAD AT LEAST 33 SURGERIES, WITH AT LEAST 22 OF THEM BEING ON HER ABDOMEN -MULTIPLE EXPLORATORY LAPAROTOMIES FOR BOWEL OBSTRUCTIONS -WOUND DEBRIDEMENTS FOR CHRONIC ABDOMINAL WOUND AND MRSA -HERNIA REPAIR WITH [facility] -12/10/19--RIGHT ULNAR NERVE TRANSPOSITION AND RIGHT CARPAL TUNNEL RELEASE--DR. MACKEY -APPENDECTOMY -CHOLECYSTECTOMY -HYSTERECTOMY/BSO -CARDIAC CATHS--STENT 2013--LAST CATH 03/19/19--NO INTERVENTION -EGD'S WITH ESOPHAGEAL DILATIONS -COLONOSCOPIES -PORTS/REMOVED -CENTRAL LINES/REMOVED Review of Systems Constitutional: No chills, No fever Gastrointestinal: abdominal pain, constipation; No diarrhea, No nausea, No vomiting Genitourinary: no symptoms reported Musculoskeletal: no symptoms reported Skin: no symptoms reported Psychiatric/Neurological: No Symptoms Reported Physical Exam Physical Exam Vital Signs Vital Signs - First Documented 07/23/20 07/23/20 11:05 11:15 Temp 36.6 Pulse 80 Resp 22 B/P (MAP) 176/83 (114) Pulse Ox 96 O2 Delivery Nasal Cannula O2 Flow Rate 3.00 FiO2 2 Capillary Refill : Less Than 3 Seconds Height, Weight, BMI Height: 5'1.00" Weight: 162lbs. 0.0oz. [id number]; 31.00 BMI Method:Stated General Appearance: Chronically ill, Mild Distress HEENT: PERRL/EOMI, Moist Mucous Membranes; No Scleral Icterus (L), No Scleral Icterus (R) Neck: Normal Inspection, Supple Respiratory: Lungs Clear, Other (increased work of breath) Cardiovascular: Regular Rate, Rhythm, No Murmur Gastrointestinal: Abnormal Bowel Sounds (absent), Distended (massive), Tenderness Extremity: No Calf Tenderness, Pedal Edema Neurologic/Psychiatric: Alert, Oriented x3, Normal Mood/Affect Skin: Normal Color, Warm/Dry Results Results/Procedures Labs Laboratory Tests 07/23/20 11:25 07/23/20 17:10 Patient resulted labs reviewed. Imaging: Reviewed Imaging Films, Reviewed Imaging Report [facility] [place], [place] NAME: REGI PAL [facility] REC#: [id number] PT STATUS: REG ER : 1950 PHYSICIAN: RICHARD MCGOVERN DIRECTOR SALES TRAINING ADMIT DATE: 07/23/20/ER Draft Date of Exam:07/23/20 CT ABDOMEN/PELVIS WO CT ABDOMEN/PELVIS WO TECHNIQUE: Unenhanced CT imaging of the abdomen and pelvis was performed. 2-D reformats are created and submitted for interpretation. Automatic exposure controls were utilized to optimize patient dose. INDICATION: Bowel obstruction, abdominal distention. COMPARISON: CT abdomen and pelvis of 02/24/2020 FINDINGS: Evaluation of the abdominal viscera is mildly limited without contrast. Lower chest: The lung bases are clear. No pericardial or pleural effusion. Peritoneum: No free intraperitoneal air or fluid. Liver and biliary system: Unenhanced liver is normal. Cholecystectomy. No pathologic biliary dilatation. Spleen and Pancreas: Spleen is normal. Unenhanced pancreas is grossly normal. Adrenals: Normal. tract: No renal or ureteral calculi. No obstructive uropathy. 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. No concerning adnexal mass. GI tract: Massive distention of the stomach predominantly filled with air and a small amount lf contrast material. Marked small bowel dilatation is greatest proximally measuring up to 4.5 cm. The dilated loops of bowel converge to a central point in the anterior aspect of the lower abdomen beneath the umbilicus and likely is due to adhesions in this region. The colon is predominantly decompressed. Vasculature and Lymph nodes: Normal caliber aorta. No abdominal or pelvic lymphadenopathy. Musculoskeletal: No concerning osseous lesion. IMPRESSION: 1. High-grade small bowel obstruction with the transition point in the anterior aspect of the abdomen just beneath the umbilicus. At this site, the majority of the small bowel loops converge and is highly suggestive of adhesions. 2. Marked distention of the stomach with air. 3. No free intraperitoneal air or abscess. Dictated on workstation # [id number] Dict: 07/23/20 1245 Trans: 07/23/20 1255 CVB [id number] Interpreted by: DAILY ZHANG MD Electronically signed by: [facility]. [place], [place] NAME: REGI PAL [facility] REC#: [id number] PT STATUS: REG ER : 1950 PHYSICIAN: RICHARD MCGOVERN APRN ADMIT DATE: 07/23/20/ER Signed Date of Exam:07/23/20 CHEST 1 VIEW, AP/PA ONLY EXAMINATION: Chest 1 view HISTORY: Cough. Shortness of breath. COMPARISON: 07/15/2020. FINDINGS: Interval decrease in lung volumes. There has also been interval development of marked gaseous distention of the stomach resulting in elevation of the left hemidiaphragm. No focal consolidations are seen. No large pleural effusion or pneumothorax. Stable cardiac silhouette. IMPRESSION: 1. Interval development of decreased lung volumes, likely secondary to the marked gaseous distention of the stomach resulting in elevation of the left hemidiaphragm. 2. No focal consolidation or mass. Dictated by: Dictated on workstation # [id number] Dict: 07/23/20 1247 Trans: 07/23/20 1320 CV [id number] Interpreted by: GARCIA HOGUE DO Electronically signed by: GARCIA HOGUE DO 07/23/20 1320 Assessment/Plan Admission Diagnosis High grade SBO Admission Status: Inpatient Order (span 2 midnights) Reason for Inpatient Admission: see below Assessment and Plan High grade SBO Likely ischemic bowel Massively distended stomach, worried this is causing ischemia as there is an elevated lactic NGT placement ordered but unable to place at bedside Surgery consulted, appreciate assistance Plan is to take to endoscopy for placement Acute on Chronic Respiratory failure COPD Attempt BiPAP to assist with work of breath Abdomen distention is likely contributing to difficulty breathing Will likely not be able to tolerate sedation for endoscopy without intubation Anesthesia to be called for intubation prior to NGT placement MAT protocol DEANGELO Creatinine 1.89 up from 0.93 on 07/16 Continue IVF Monitor UOP Mildly hyperkalemia HTN BP soft after intubation Levophed ordered Dr Ponce placed central line HLD no acute needs DVT ppx: SCDs only for now Overall very poor prognosis. Patient originally indicated she would like to be a DNR/DNI but has agreed to short term intubation only for endoscopy and does not want assisted aggressive measures. Diagnosis/Problems Diagnosis/Problems (1) T2DM (type 2 diabetes mellitus) Status: Chronic Qualifiers: Diabetes mellitus assisted insulin use: with manager terminal use Diabetes mellitus complication status: with other specified complication Qualified Codes: E11.69 - Type 2 diabetes mellitus with other specified complication; Z79.4 - skilled nursing (current) use of insulin (2) Acute on chronic respiratory failure with hypoxia and hypercapnia Status: Acute (3) Bowel obstruction Status: Acute Qualifiers: Intestinal obstruction type: obstruction due to adhesions Intestinal obstruction extent: unspecified extent Qualified Codes: K56.50 - Intestinal adhesions [bands], unspecified as to partial versus complete obstruction (4) Edema Status: Acute Qualifiers: Edema type: generalized Qualified Codes: R60.1 - Generalized edema (5) Hyperkalemia Status: Acute (6) Acute renal failure Status: Acute Qualifiers: Acute renal failure type: unspecified Qualified Codes: N17.9 - Acute kidney failure, unspecified (7) Lactic acidosis Status: Acute (8) Hypertension Status: Chronic Qualifiers: Hypertension type: essential hypertension Qualified Codes: I10 - Essential (primary) hypertension (9) COPD (chronic obstructive pulmonary disease) Status: Acute Qualifiers: COPD type: unspecified COPD Qualified Codes: J44.9 - Chronic obstructive pulmonary disease, unspecified (10) Smoker Status: Acute (11) Small bowel ischemia Status: Acute Clinical Quality Measures DVT/VTE Risk/Contraindication: Risk Factor Score Per Nursin RFS Level Per Nursing on Admit: 4+=Very High ARTEMIO TRIPATHI MD Jul 23, 2020 15:41
[2020-07-23] MEDS: LACTATED RINGERS 1,000 ML IV SCH ×2 (15:55→18:24)
--- NOTE | 2020-07-23 16:04 | NUR ---
SPOKE WITH THE PT AND WENT THRU THE EXT MED HISTORY TO COMPLETE THE MED REC ON PATIENTS PREVIOUS STAY, I ENTERED THE MED REC ON 07-14-2020 AND WHEN I SPOKE WITH THE PT TODAY SHE INDICATES NOTHING HAS CHANGED AND PREDNISONE TAPER DOSE WHICH SHE WAS PRESCRIBED AT DISCHARGE HAS BEEN COMPLETED
--- NOTE | 2020-07-23 16:10 | Diagnostic Imaging Report ---
INDICATION: NG tube placement. TIME OF EXAM: 03:37 p.m. FINDINGS: NG tube is positioned at the midline. The tip of NG tube is located near the GE junction. Proximal side-port overlies the mid thoracic spine. There is significant gaseous distention to the stomach. Chest wall ports are noted bilaterally. The lungs are clear. IMPRESSION: NG tube has tip near the GE junction. Dictated by: Dictated on workstation # [id number]
--- NOTE | 2020-07-23 16:13 | Diagnostic Imaging Report ---
INDICATION: Evaluate NG tube position. TECHNIQUE: 100 cc of Gastrografin contrast was injected through the patient's indwelling NG tube and radiographs over the chest and abdomen were obtained. FINDINGS: There is contrast throughout the esophagus. There appears to be high-grade obstruction at the level of the GE junction. No contrast is identified passing into the stomach. Stomach is significantly gaseous distended. Distal esophagus does appear to be markedly tortuous. IMPRESSION: No identifiable contrast is seen passing into the stomach after injection through the patient's indwelling NG tube. There is tortuosity of the distal esophagus and there are features suggestive of high-grade distal esophageal obstruction. Endoscopic placement of NG tube would be a consideration. Dictated by: Dictated on workstation # [id number]
[2020-07-23] MEDS ORDERED: PROPOFOL DRIP (ICU) 100 ML IV ONE (16:14)
[2020-07-23] MEDS ORDERED: DIATRIZOATE MEGLUM/SODIUM 37% 120 ML (GASTROGRAFIN) NG ONE (16:15)
[2020-07-23] MEDS ORDERED: NOREPINEPHRINE 4 MG/250 ML 250 ML IV ONE (17:33)
--- NOTE | 2020-07-23 17:40 | Procedure/Intervention Note ---
Procedures/Interventions Lumen: triple (16 cm 7 Vincentian) Central Line Procedure: betadine prep (chlorhexidine prep), sterile drapes applied, sterile dressing applied Position: subclavian (R) Anesthesia: Lidocaine Volume Anesthetic (ccs): 3 Complications: none Post Position: sutured, good blood return, position confirmed w/ CXR Patient was positioned and skin was cleaned chlorhexidine and then draped in usual sterile fashion. Infiltrated with lidocaine and then using ultrasound we accessed the right subclavian. Assistance by Dr. Morales, general surgery. Line was placed for IV access and she did not have any prophylaxis and just had one port on the right side. Placed at 16 cm. Withdrew blood and flushed easily. Dressed with a sterile dressing. Date of ETT Placement: Jul 23, 2020 Time of ETT Placement: 16:40 Tube Size: 7.50 Medications: Etomidate (20), Rocuronium (50) Positive End Tide CO2: Yes Breath Sounds after Intubation: bilateral-equal Intubation Complications: no complications Post Intubation Xray: Yes [facility], [place] NAME: REGI PAL [facility] REC#: [id number] PT STATUS: ADM IN : 1950 PHYSICIAN: ARTEMIO APARICIO MD ADMIT DATE: 07/23/20/ICU Signed Date of Exam:07/23/20 CHEST 1 VIEW, AP/PA ONLY INDICATION: Line and tube placement. FINDINGS: Portable upright view of the chest is compared to an exam from 3:37 p.m. Since that time endotracheal tube has been placed with its tip just above the manoj. This could be pulled back 1 to 2 cm. An orogastric tube remains in place. The tip appears to have been advanced into the stomach. Some infiltrates are present in the left perihilar region of the left lower lung. IMPRESSION: 1. Endotracheal tube at the manoj. This could be pulled back approximately 2 cm. 2. Some infiltrates are present in the left perihilar region and lower lung. Dictated by: Dictated on workstation # [id number] Dict: 07/23/201826 Trans: 07/23/201836 [facility] [id number] Interpreted by: JANIA JORDAN MD Electronically signed by: JANIA JORDAN MD 07/23/20 1837 ADRIANO ROBERSON Jul 23, 2020 17:40
--- NOTE | 2020-07-23 17:51 | Conscious Sedation/ASA ---
Conscious Sedation Pre-Proced Time 16:00 ASA Score 5 For ASA 3 and 4: Consider anesthesia and medical clearance. Also, for patients with a history of failed moderate sedation consider anesthesia. Airway Lungs Heart ASA score ASA 1: a normal healthy patient ASA 2: a patient with a mild systemic disease (mid diabetes, controlled hypertension, obesity ASA 3: a patient with a severe systemic disease that limits activity (angina, COPD, prior Myocardial infarction) ASA 4: a patient with an incapacitating disease that is a constant threat to life (CHF, renal failure) ASA 5: a moribund patient not expected to survive 24 hrs. (ruptured aneurysm) ASA 6: a declared brain- patient whose organs are being harvested. For emergent operations, add the letter E after the classification Mallampati Classification Grade 3 Sedation Plan Analgesia, Amnesia, Plan communicated to team members, Discussed options with patient/fam, Discussed risks with patient/fam The patient is an appropriate candidate to undergo the planned procedure, sedation, and anesthesia. The patient immediately re-assessed prior to indication. MELISA DOHERTY MD Jul 23, 2020 17:51
--- NOTE | 2020-07-23 17:52 | Progress Note-Pre Operative ---
Pre-Operative Progress Note H&P Reviewed The H&P was reviewed, patient examined and no changes noted. Date Seen by Provider: Jul 23, 2020 Time Seen by Provider: 16:00 Date H&P Reviewed: Jul 23, 2020 Time H&P Reviewed: 16:00 Pre-Operative Diagnosis: small bowel obstruction with inability to pass NGT MELISA DOHERTY MD Jul 23, 2020 17:51
--- NOTE | 2020-07-23 17:53 | Progress Note-Post Operative ---
Post-Operative Progess Note Surgeon (s)/Regulatory Specialist (s) Surgeon MELISA DOHERTY MD Regulatory Specialist: none Pre-Operative Diagnosis small bowel obstruction with inability to pass NGT Post-Operative Diagnosis reflux esophagitis(stage 3), distal eophageal stricture, small HH, severe gastritis. Procedure & Operative Findings Date of Procedure 07/23/20 Procedure Performed/Findings EGD with directed placement NGT and bx. Anesthesia Type mac Estimated Blood Loss Estimated blood loss (mL): minimal Specimens/Packing Specimens Removed antrum, ge jxn MELISA DOHERTY MD Jul 23, 2020 17:53
[2020-07-23] MEDS ORDERED: NOREPINEPHRINE 4 MG/250 ML 250 ML IV SCH (18:00)
[2020-07-23] MEDS ORDERED: RT-ALBUTEROL/IPRATROPIUM 3 ML (DUONEB) VIAL INH SCH (18:00)
[2020-07-23 18:06] LABS: INR 1.2 (0.8-1.4); PROTHROMBIN TIME PATIENT 15.8 SEC (12.2-14.7)
[2020-07-23 18:07] LABS: CALCIUM 7.6 MG/DL (8.5-10.1)
[2020-07-23 18:11] LABS: CREATININE SERUM 2.33 MG/DL (0.60-1.30); POTASSIUM 6.5 MMOL/L (3.6-5.0)
[2020-07-23 18:14] LABS: MAGNESIUM 4.7 MG/DL (1.6-2.4)
--- NOTE | 2020-07-23 18:25 | OPERATIVE REPORT ---
DATE OF SERVICE: 07/23/2020 ADMITTING PHYSICIAN: Dr. Tripathi. ATTENDING PRIMARY CARE PHYSICIAN: Dr. Addy Knight. PREOPERATIVE DIAGNOSIS: Small-bowel obstruction with inability to pass nasogastric tube. POSTOPERATIVE DIAGNOSES: Reflux esophagitis stage III with mild distal esophageal stricture, small hiatal hernia, severe gastritis, which was diffuse throughout the stomach. PROCEDURE: EGD with guided placement of nasogastric tube, biopsies. SURGEON: Melisa Doherty MD ANESTHESIA: Monitored anesthesia care. ESTIMATED BLOOD LOSS: Minimal. FINDINGS: Reflux esophagitis stage III with mild distal esophageal stricture, small hiatal hernia, severe gastritis, which was diffuse throughout the stomach. DISPOSITION: The patient tolerated the procedure well. INDICATIONS: The patient is a 70-year-old female, who presented with abdominal distention and worsening shortness of breath. She has a multitude of medical comorbidities and has been admitted multiple times. She has had multiple small bowel obstructions and as recently, these were treated with conservative therapy with NG tube decompression. She has had multiple exploratory laparotomies, lysis of adhesions as well as small bowel resections in the past. Multiple attempts were performed to place a nasogastric tube by Emergency Department staff as well as ICU staff; however, unsuccessful. She will need nasogastric tube for decompression due to significantly distended abdomen. DESCRIPTION OF PROCEDURE: The patient was intubated and central line placed. The mouthpiece was then applied. The endoscope was placed in the mouth, visualizing the pharynx and hypopharyngeal region. Vocal cords, epiglottis and vallecula identified and appeared to be normal. The endoscope was then gently intubated at the esophageal opening and esophagus insufflated. The gastrostomy tube was placed on a wire snare and then directed through the first, second and third portions of esophagus at the level of GE junction, mild to moderate distal esophageal stricture identified. With gentle pressure, we were able to pass through this. On retroflexion, there was a small hiatal hernia. There was a severe gastritis, which was diffuse throughout the stomach, likely consistent with severe stress ulceration. There was no active bleeding identified. The nasogastric tube was then released and left in place. Biopsies were taken of the antrum and GE junction with forceps with visualization of good hemostasis. The endoscope was then slowly withdrawn while taking a second look and suctioning of residual air with no additional findings. The nasogastric tube was then placed to intermittent wall suction and we will start her on Protonix 40 mg b.i.d. At this time, she is a do not resuscitate with no heroic measures. She is in no condition for general anesthesia and exploratory laparotomy and we will recommend conservative therapy with NG tube decompression and serial examinations. Job ID: [id number] DocumentID: [id number] Dictated Date: 07/23/2020 18:00:20 Access Rep Date: 07/23/2020 18:24:54 Dictated By: MELISA DOHERTY MD [facility]
--- NOTE | 2020-07-23 18:29 | NUR ---
TIME LINE NOTE: 1625 ETOMIDATE 20 MG IN 1625 BAGGING BY RT 1626 PIERO GIVEN 1628 PATIENT INTUBATED, 22 @ GUMS 7.5 ETT ZERO COLOR CHANGE, REMOVE TUBE 1828 BAGGING PT O2 97-100% 1628 PATIENT REINTUBATED 7.5 ETT COLOR CHANGE 23 @ LIP, COLOR CHANGE 1630 OG PL[address]EMENT UNSUCCESSFUL BY DR. ROBERSON 1635 RESTRAINTS INITIATED PROPOFOL STARTED 1642 CENTRAL LINE PLACEMENT 1722 EGD BEGAN FOR OG PLACEMENT 1815 CXR DONE
[2020-07-23] MEDS ORDERED: DEXTROSE 50% 50 ML (IMS) SYR IV NR ×2 (18:30→20:00)
[2020-07-23] MEDS ORDERED: PROPOFOL DRIP (ICU) 100 ML IV SCH (18:30)
[2020-07-23] MEDS ORDERED: SOD POLYSTERENE 15 GM/60 ML (KAYEXALATE) UNIT DOSE PR NR (18:30)
[2020-07-23] MEDS ORDERED: inSUlin (REGULAR) HUMAN 1 UNIT/0.01 ML (CHARGE PER UNIT) IV NR ×2 (18:30→20:00)
[2020-07-23] MEDS ORDERED: SODIUM BICARBONATE 8.4% VIAL 100 MEQ in D5W 1000 ML IV SOLUTION 1,000 ML IV SCH (18:30)
[2020-07-23] MEDS ORDERED: CALCIUM CHLORIDE 1 GM/10 ML (IMS) SYR IV NR (18:30)
--- NOTE | 2020-07-23 18:31 | Diagnostic Imaging Report ---
INDICATION: Line and tube placement. FINDINGS: Portable upright view of the chest is compared to an exam from 3:37 p.m. Since that time endotracheal tube has been placed with its tip just above the manoj. This could be pulled back 1 to 2 cm. An orogastric tube remains in place. The tip appears to have been advanced into the stomach. Some infiltrates are present in the left perihilar region of the left lower lung. IMPRESSION: 1. Endotracheal tube at the manoj. This could be pulled back approximately 2 cm. 2. Some infiltrates are present in the left perihilar region and lower lung. Dictated by: Dictated on workstation # [id number]
[2020-07-23] MEDS ORDERED: SUCCINYLCHOLINE INJ 100 MG/5 ML SYR/VIAL INJ ONE (18:50)
[2020-07-23] MEDS ORDERED: ETOMIDATE IV SOLN 20 MG/10 ML VIAL IV ONE (18:50)
[2020-07-23] MEDS: SODIUM BICARB 8.4% 50 MEQ/50 ML (ABBOTT) SYR IV NR ×3 (18:52→20:09)
[2020-07-23] MEDS ORDERED: PIPERACILLIN/TAZO 4.5 GM/NS 100 ML IV SCH ×2 (19:00)
[2020-07-23 19:10] LABS: ABG BASE EXCESS 1.1 MMOL/L (-2.5-2.5); ABG OXYGEN SATURATION 93 % (94-100); ABG PCO2 59 MMHG (35-45); ABG PO2 75 MMHG (79-93); ABG TCO2 29.6 MMOL/L (21.0-31.0)
[2020-07-23 19:12] LABS: ABG PH 7.28 (7.37-7.43); ALLENS TEST POSITIVE
[2020-07-23 19:13] LABS: INSPIRED O2 80; VENTILATOR YES
--- NOTE | 2020-07-23 19:24 | CONSULTATION REPORT ---
DATE OF SERVICE: ADMITTING PHYSICIAN: Dr. Timmons. ATTENDING PRIMARY CARE PHYSICIAN: Dr. Addy Knight. HISTORY OF PRESENT ILLNESS: The patient is a 70-year-old female with multiple medical comorbidities. She does have severe COPD and presented with abdominal distention and pain. She has had bowel obstructions multiple times in the past, which were more recently treated conservatively with NG tube decompression. She has had multiple exploratory laparotomies, lysis of adhesions as well as what sounds to be small bowel resections. She had worsening shortness of breath. Again, due to severe COPD, she is constantly oxygen dependent. At this time, it appears on CT scan she does have another small bowel obstruction; however, she is of no heroic lifesaving measures as well as do not intubate status. PAST MEDICAL HISTORY: COPD, gastroesophageal reflux disease, hiatal hernia, hypertension, hypercholesterolemia, bilateral lower extremity edema, neuropathy, history of small bowel obstructions. PAST SURGICAL HISTORY: Multiple exploratory laparotomies and lysis of adhesions, small bowel resection, , incisional hernia repair with mesh, appendectomy, cardiac catheterization and stent placement, cholecystectomy, hysterectomy, vascular procedures. ALLERGIES: IODINATED CONTRAST MEDIA, LINEZOLID. MEDICATIONS: Albuterol, alprazolam, aspirin, atorvastatin, cyclobenzaprine, dicyclomine, fluticasone/salmeterol. Furosemide, insulin, meclizine, metformin, montelukast, omeprazole, oxycodone, potassium, prednisone, pregabalin, quetiapine, ranolazine, ropinirole, topiramate. SOCIAL HISTORY: Positive smoke, 60 pack years. Previous polysubstance abuse. VITAL SIGNS: Temperature 37.5, blood pressure 163/82, pulse 81, respirations 20, pulse ox 95% on BiPAP at 45% FiO2. REVIEW OF SYSTEMS: Well-nourished female, currently in respiratory distress. She is experiencing shortness of breath as well as a chronic cough with mild sputum production. No chest pain, palpitations, diaphoresis. Intermittent nausea, vomiting, unsure when her last bowel movement was. No known red blood per rectum, no dark tarry stools. No fever or chills. No recent inadvertent weight loss. Abdominal distention with diffuse pain. PHYSICAL EXAMINATION: CHEST: Scattered wheezes and rhonchi as well as distant breath sounds bilaterally. HEART: Regular, no murmurs. EXTREMITIES: A +1/3 bilateral lower extremity edema, negative Homans sign. HEENT: No scleral icterus. NECK: No cervical lymphadenopathy. ABDOMEN: Distended with mild diffuse tenderness. There does not appear to be any hernias or any peritoneal signs. SKIN: Warm, dry. LABORATORY DATA: WBC 30.4, hemoglobin 11.1, hematocrit 35, platelets 317. BUN 28, creatinine 1.89, potassium 5.3. Lactic acid 2.63, glucose 263. ASSESSMENT AND PLAN: A 70-year-old female with recurrent small-bowel obstruction. She does have multiple underlying medical comorbidities and is not a surgical candidate and is also a do not intubate. We will proceed with conservative management with NG tube decompression and medical management. Job ID: [id number] DocumentID: [id number] Dictated Date: 07/23/2020 14:03:46 Overhead Cleaner Maintainer Date: 07/23/2020 19:23:44 Dictated By: MELISA DOHERTY MD
[2020-07-23] MEDS ORDERED: SODIUM BICARB 8.4% 50 MEQ/50 ML VIAL ONE (19:56)
[2020-07-23] MEDS ORDERED: CALCIUM CHLORIDE 1 GM/10 ML (IMS) SYR INJ NR (20:00)
[2020-07-23] MEDS ORDERED: SODIUM BICARB 8.4% 50 MEQ/50 ML VIAL IV NR (20:00)
[2020-07-23] MEDS ORDERED: PANTOPRAZOLE 40 MG (PROTONIX) VIAL IV SCH (21:00)
[2020-07-23] MEDS ORDERED: morphine INJ 10 MG/ML 1ML (SYR OR VIAL) ONE (21:29)
[2020-07-23] MEDS ORDERED: LORazepam INJ 2 MG/ML (ATIVAN) VIAL IVP PRN ×2 (21:30)
[2020-07-23] MEDS ORDERED: morphine INJ 10 MG/ML 1ML (SYR OR VIAL) IVP PRN ×3 (21:30)
--- NOTE | 2020-07-23 23:40 | NUR ---
TIMELINE NOTE: 1900: REPORT RECEIVED FROM SHYANN DRAKE. 1945: CRITICAL pH OF 7.24 CALLED TO E-ICU AT THIS TIME. PT'S CONDITION, LABS AND EKG DISCUSSED WITH E-ICU PHYSICIAN. PEAKED T WAVES NOTED ON MONITOR WITH A PREVIOUS POTASSIUM LEVEL OF 6.5. THIS RN ALSO REPORTED PT'S INCREASE IN OXYGENATION NEEDS FROM 50% TO 75% WITH AN O2 SATURATION OF 90% CURRENTLY AND R/T'S RECOMMENDATION TO INCREASE PEEP AT THIS TIME. NEW ORDERS RECEIVED FOR 50 MEQ SODIUM BICARB IV ONCE/NOW, 10 UNITS OF NOVOLIN INSULIN IV ONCE/NOW, 25 ML OF D50 IV ONCE/NOW AND TO INCREASE PEEP FROM 5 TO 10 AND INCREASE RESPIRATORY RATE FROM 20 TO 28. AND TO LET E-ICU DOCTOR KNOW IF PT CAN NOT TOLERATE VENT SETTING CHANGES. CODE STATUS AND POOR PROGNOSIS DISCUSSED WITH PHYSICIAN. THIS RN TO NOTIFY PT'S TO RETURN TO HOSPITAL TO DISCUSS PT'S DETERIORATING CONDITION. 2015: CRITICAL LACTIC ACID OF 8.60 CALLED TO THIS RN. 2030: THIS RN CALLED E-ICU TO REPORT VENTILATOR ALARMING "VOLUME NOT DELIVERED" AND LACTIC ACID RESULTS. NO NEW ORDERS. 0: PT'S AT BEDSIDE. THIS RN HAD A LONG DISCUSSION WITH PT'S REGARDING OVERALL PROGNOSIS AND DETERIORATING CONDITION. PT'S WOULD LIKE TO PROCEED WITH TERMINAL EXTUBATION AND "DOESN'T WANT HER TO SUFFER ANY LONGER." PT'S CARSON TO CALL HIS TWO SONS IN AND PT'S BEST FRIEND. E-ICU AND DR. APARICIO NOTIFIED OF PT'S CARSON'S WISHES. 2100: PT'S FAMILY AT BEDSIDE AND JAYLYN HERE TO PRAY WITH FAMILY. ALL QUESTIONS ANSWERED BY THIS RN. 0: PT'S RESTRAINTS REMOVED AT THIS TIME. 2150: PRN ATIVAN AND MORPHINE ADMINISTERED ORDERED. MONITORS AND IV PUMPS SHUT OFF. R/T EXTUBATED PT. 0: TOD CONFIRMED BY THIS RN AND MARLEY RN. BODY CLEANED BY THIS RN AND MARLEY RN. ALL BELONGINGS INCLUDING PT'S EAR RINGS GIVEN TO FAMILY. 2255: [facility] NOTIFIED, REFERRAL NUMBER [id number] (PT IS NOT A CANDIDATE FOR TISSUE DONATION) 2330: [facility] CALLED THIS RN. PT NOT A CANDIDATE FOR DONATION 2335: [facility] NOTIFIED.
[2020-07-24] MEDS ORDERED: inSUlin ASPART (NovoLOG) 1 UNIT/0.01 ML (CHARGE PER UNIT) SC SCH
[2020-07-24] MEDS ORDERED: MAGNESIUM 1 GM/100 ML IVPB 100 ML IV SCH (06:00)
[2020-07-24] MEDS ORDERED: POTASSIUM CL 10MEQ/50ML IVPB 50 ML IV SCH (06:00)
[2020-07-24] MEDS ORDERED: KCL 20 MEQ TAB (K-DUR) PO SCH (06:00)
[2020-07-24] MEDS ORDERED: PANTOPRAZOLE 40 MG (PROTONIX) VIAL IV SCH ×2 (09:00)
[2020-07-24 09:07] LABS: BILIRUBIN,URINE 2+ (NEGATIVE)
--- NOTE | 2020-07-24 10:10 | Discharge Summary ---
Discharge Summary Date of Admission Jul 23, 2020 at 13:22 Date of Discharge Discharge Date: Jul 23, 2020 Admission Diagnosis High grade SBO Consults/Procedures Consulations Surgery- Dr Morales Comfort Measures/ Date of : Jul 24, 2020 patient was admitted secondary to a high-grade small bowel obstruction with presumed bowel ischemia. She was admitted to the ICU and NG tube was attempted but unable to be placed secondary to massive distention. He underwent endoscopy for NG tube placement and had 500 mils without with significant amounts of air but despite this she continued to worsen. He had originally agreed to short- term ventilation but no other life-support measures. She developed shock and was needing pressors along with increasing ventilator support and family deemed this would be against her wishes and elected palliative extubation with comfort measures. She peacefully with her family at bedside. I have called and updated Dr. Knight her primary care doctor to this. Discharge Diagnosis High grade SBO Massively distended stomach NGT placement ordered but unable to place at bedside Surgery consulted, appreciate assistance Plan is to take to endoscopy for placement Acute on Chronic Respiratory failure COPD Attempt BiPAP to assist with work of breath Abdomen distention is likely contributing to difficulty breathing Will likely not be able to tolerate sedation for endoscopy without intubation Anesthesia to be called for intubation prior to NGT placement MAT protocol DEANGELO Creatinine 1.89 up from 0.93 on 07/16 Continue IVF Monitor UOP Mildly hyperkalemia HTN BP soft after intubation Levophed ordered Dr Ponce placed central line HLD no acute needs DVT ppx: SCDs only for now (1) T2DM (type 2 diabetes mellitus) Status: Chronic Qualifiers: Qualified Codes: E11.69 - Type 2 diabetes mellitus with other specified complication; Z79.4 - intermediate (current) use of insulin (2) Acute on chronic respiratory failure with hypoxia and hypercapnia Status: Acute (3) Bowel obstruction Status: Acute Qualifiers: Qualified Codes: K56.50 - Intestinal adhesions [bands], unspecified as to partial versus complete obstruction (4) Edema Status: Acute Qualifiers: Qualified Codes: R60.1 - Generalized edema (5) Hyperkalemia Status: Acute (6) Acute renal failure Status: Acute Qualifiers: Qualified Codes: N17.9 - Acute kidney failure, unspecified (7) Lactic acidosis Status: Acute (8) Hypertension Status: Chronic Qualifiers: Qualified Codes: I10 - Essential (primary) hypertension (9) COPD (chronic obstructive pulmonary disease) Status: Acute Qualifiers: Qualified Codes: J44.9 - Chronic obstructive pulmonary disease, unspecified (10) Smoker Status: Acute ARTEMIO APARICIO MD Jul 24, 2020 10:10
== END 2020-07-23 23:59 | disposition expired | DRG 388 ==
LOC: EDUNIT# 10:57 → ER 11:00 → ICU 13:22
PROVIDERS: ADMIT Family Medicine; ATTEND Family Medicine
PROC: 5A1935Z Respiratory Ventilation, Less than 24 Consecutive Hours (ICD-10-PCS; 2020-07-23)
PROC: 0D9680Z Drainage of Stomach with Drainage Device, Via Natural or Artificial Opening Endoscopic (ICD-10-PCS; 2020-07-23)
PROC: 0DB78ZX Excision of Stomach, Pylorus, Via Natural or Artificial Opening Endoscopic, Diagnostic (ICD-10-PCS; 2020-07-23)
PROC: 0DB48ZX Excision of Esophagogastric Junction, Via Natural or Artificial Opening Endoscopic, Diagnostic (ICD-10-PCS; 2020-07-23)
PROC: 0BH17EZ Insertion of Endotracheal Airway into Trachea, Via Natural or Artificial Opening (ICD-10-PCS; principal; 2020-07-23 17:00)
DX: K56.609 Unspecified intestinal obstruction, unspecified as to partial versus complete obstruction (principal); J96.21 Acute and chronic respiratory failure with hypoxia; J96.22 Acute and chronic respiratory failure with hypercapnia; K55.9 Vascular disorder of intestine, unspecified; R57.9 Shock, unspecified; N17.9 Acute kidney failure, unspecified; E87.2 Acidosis; Z66 Do not resuscitate; Z51.5 Encounter for palliative care; K21.0 Gastro-esophageal reflux disease with esophagitis; K22.2 Esophageal obstruction; K29.70 Gastritis, unspecified, without bleeding; J43.9 Emphysema, unspecified; E11.40 Type 2 diabetes mellitus with diabetic neuropathy, unspecified; I11.0 Hypertensive heart disease with heart failure; I50.9 Heart failure, unspecified; E78.00 Pure hypercholesterolemia, unspecified; E78.5 Hyperlipidemia, unspecified; F41.9 Anxiety disorder, unspecified; F32.9 Major depressive disorder, single episode, unspecified; F17.210 Nicotine dependence, cigarettes, uncomplicated; Z79.4 Long term (current) use of insulin; Z95.5 Presence of coronary angioplasty implant and graft; Z87.01 Personal history of pneumonia (recurrent); Z90.710 Acquired absence of both cervix and uterus; Z90.49 Acquired absence of other specified parts of digestive tract; Z90.89 Acquired absence of other organs
CPT/HCPCS: 36415; 36600; 71045; 74018; 74176; 80048; 80053; 81000; 82805; 82962; 83605; 83690; 83735; 84478; 85007; 85027; 85610; 87040; 87070; 87081; 87205; 88305; 94002; 94640; 94660; 99291